=== PATIENT | female | born 1955 | race Caucasian/White ===

== ENCOUNTER 2022-09-03 17:00 | Emergency (ER) | payer MEDICARE, SELFPAY ==
[2022-09-03 17:05] VITALS: BP 159/91; PULSE 100; PULSE 102; PULSE 106; RESP 20; RESP 24; RESP 28; TEMP 37; O2SAT 99; BMI 34.2
--- NOTE | 2022-09-03 17:19 | ED.GENADUL1 ---
HPI - General Adult General Chief complaint: Headache Stated complaint: HEADACHE BACK PAIN Time Seen by Provider: 09/03/22 17:19 Source: patient Source information: patient Mode of arrival: ambulance Limitations: no limitations History of Present Illness HPI narrative: He presents emergency department complaining of a headache. Patient states she has a headache over the top of her head. Patient has this headache for over a month. She saw her primary care doctor who order a CT scan of the brain on August 14 and she had some fluid in the mastoid processes so she was started on Augmentin. Patient took the Augmentin and has been taking prednisone 10 mg. She is concerned because she still has the headache and last year she was admitted for sepsis and pneumonia so she wants to make sure that she doesn't have any sepsis. Patient had a cough but that has improved and she has a history of lung disease she wears 4 L of oxygen. She denies any shortness of breath and not had to increase the oxygen. She denies any fever, or chills. She denies any flank pain, hematuria, dysuria. She denies any nausea states she has not been drinking a lot of fluids any diarrhea, constipation, or abdominal pain. She denies any lower extremity edema, or cramping. She denies any chest pain. Denies any trauma. Related Data Home Medications Medication Instructions Recorded Confirmed albuterol sulfate 90 mcg/actuation inhalation 09/03/22 aerosol inhaler fexofenadine 180 mg tablet mg 09/03/22 levofloxacin 500 mg tablet mg 09/03/22 prednisolone 1 %-moxifloxacin 0.5 drp ophthalmic (eye) 09/03/22 %-bromfenac 0.075 % eye drops susp prednisone 10 mg tablet mg 09/03/22 prednisone 5 mg tablet mg 09/03/22 tramadol 50 mg tablet mg 09/03/22 Previous Rx's Medication Instructions Recorded levofloxacin 500 mg tablet 500 mg PO DAILY 7 days #7 tabs 09/03/22 Allergies Allergy/AdvReac Type Severity Reaction Status Date / Time No Known Drug Allergies Allergy Verified 09/03/22 17:18 Review of Systems ROS Status of ROS 10 or more systems reviewed and unremarkable except as noted in history and below PFSH PFSH Social History Smoking status: Former smoker Exam Narrative Exam Narrative: Nurses notes and vital signs reviewed and patient is not hypoxic on 4l nc General: Nontoxic, Chronically illand in no apparent distress. Skin: Warm, dry, no pallor noted. No Rash Head: Normocephalic, atraumatic. Neck: Supple, non-tender. Eye: Pupils are equal, round and EOMI. No scleral icterus. Ears, Nose, Mouth, and Throat: TM clear, no posterior oropharynx erythema or nasal mucosal hypertrophy, uvula is mid-line Oral mucosa is moist Cardiovascular: Regular Rate and Rhythm without murmur, gallop or rub. Respiratory: No accessory muscle use or respiratory distress. Lungs:Bilateral scattered rhonchi Chest Wall: no tenderness Back: No midline thoracic or lumbar vertebral tenderness. No CVA tenderness Musculoskeletal: normal ROM, no calf or popliteal tenderness, no lower extremity edema/swelling GI: Abdomen is soft, non-distended. Normal bowel sounds. No masses appreciated. No tenderness to palpation. No rebound, guarding, or rigidity noted. Neurological: A&O x4. No cranial nerve dysfunction observed. No truncal ataxia. Moves all extremities. Sensation intact. Psychiatric: Cooperative and interactive. Normal mood and affect. Constitutional Vital Signs - 24 hr 09/03/22 17:05 09/03/22 17:05 09/03/22 17:05 Temperature 98.6 F Pulse Rate 100 H 102 H Pulse Rate [Monitor] 106 H Respiratory Rate 24 20 28 H Blood Pressure 159/91 H 159/91 H Blood Pressure [Left Radial Artery] 159/91 H Pulse Oximetry 99 99 99 Oxygen Delivery Method Nasal Cannula Oxygen Delivery Flow Rate 4 09/03/22 17:43 09/03/22 18:01 Temperature Pulse Rate 97 H 112 H Pulse Rate [Monitor] Respiratory Rate 21 18 Blood Pressure 149/121 H 166/101 H Blood Pressure [Left Radial Artery] Pulse Oximetry 100 100 Oxygen Delivery Method Oxygen Delivery Flow Rate Course Vital Signs Vital signs: Vital Signs Temperature 98.6 F 09/03/22 17:05 Pulse Rate 100 H 09/03/22 17:05 Respiratory Rate 24 09/03/22 17:05 Blood Pressure 159/91 H 09/03/22 17:05 Pulse Oximetry 99 09/03/22 17:05 Oxygen Delivery Method Nasal Cannula 09/03/22 17:05 Oxygen Delivery Flow Rate 4 09/03/22 17:05 Temperature 98.6 F 09/03/22 17:05 Pulse Rate 112 H 09/03/22 18:01 Respiratory Rate 18 09/03/22 18:01 Blood Pressure 166/101 H 09/03/22 18:01 Pulse Oximetry 100 09/03/22 18:01 Oxygen Delivery Method Nasal Cannula 09/03/22 17:05 Oxygen Delivery Flow Rate 4 09/03/22 17:05 Medical Decision Making MDM Narrative Medical decision making narrative: or order an ultrasound results were discussed with patient. Patient reassured there is no signs of sepsis at this time. Patient's white count is 13.9 probably secondary to her use of prednisone. The patient is afebrile, she is not dyspneic. She was given 4 mg of morphine ?2 for the headache. Her symptoms improved. On the x-ray there is a left lung infiltrate patient was treated with Rocephin, and Zithromax. However, the radiologist's read- this is not acute compared to the previous x-ray. The patient was discussed with the hospitalist who advised the patient can be given IV antibiotics and sent home on oral antibiotics and have the patient follow up with her primary care doctor which she APPOINTMENT SET UP FOR THIS WEEK. pt is agreeable to plan. I answered all questions. Discussed discharge instructions including standard anticipatory guidance and what should prompt a return to the emergency department, including if they get worse are not getting better or develops any new or concerning symptoms. I've given them specific time frame in which to follow-up, and who to follow-up with. The patient demonstrates understanding. Patient is nontoxic and stable for discharge with outpatient follow-up. This note was created with the assistance of a speech recognition program. Although the intention is to generate documents that actually reflects the content of the visit, no guarantees can be provided that every mistake has been identified and corrected by editing. Lab Data Lab results reviewed: Yes I reviewed the patient's lab results Labs: Lab Results 09/03/22 Range/Units 17:42 WBC 13.9 H (4.0-11.0) 10^3/uL RBC 3.91 L (4.20-5.40) 10^6/uL Hgb 12.3 (12.0-16.0) g/dL Hct 38.0 (36.0-48.0) % MCV 97.2 (81.0-99.0) fL MCH 31.5 (26.7-34.0) pg MCHC 32.4 (29.9-35.2) g/dL RDW 14.4 (11.0-15.0) % Plt Count 181 (150-450) 10^3/uL MPV 9.2 L (9.5-13.5) fL Neut % (Auto) 83.3 H (43.0-75.0) % Lymph % (Auto) 7.8 L (20.5-60.0) % [place] % (Auto) 6.4 (1.7-12.0) % Eos % (Auto) 0.2 L (0.9-7.0) % Baso % (Auto) 0.4 (0.2-2.0) % Neut # (Auto) 11.6 H (1.4-6.5) 10^3/uL Lymph # (Auto) 1.1 L (1.2-3.8) 10^3/uL [place] # (Auto) 0.9 H (0.3-0.8) 10^3/uL Eos # (Auto) 0.0 (0.0-0.7) 10^3/uL Baso # (Auto) 0.1 (0.0-0.1) 10^3/uL Abs Immat Gran (auto) 0.27 H (0.00-0.03) 10^3/uL Imm/Tot Granulo (auto) 1.9 H (0.0-0.5) % Sodium 141 (136-145) mmol/L Potassium 4.1 (3.5-5.1) mmol/L Chloride 103 (98-107) mmol/L Carbon Dioxide 30.8 (21.0-32.0) mmol/L Anion Gap 11.3 BUN 17.0 (7.0-18.0) mg/dL Creatinine 0.70 (0.55-1.02) mg/dL Est GFR ( Amer) >60 (>=60) Est GFR (Non-Af Amer) >60 (>=60) BUN/Creatinine Ratio 24.3 Glucose 95 (74-106) mg/dL Lactate 2.0 (0.4-2.0) mmol/L Calcium 9.9 (8.5-10.1) mg/dL Total Bilirubin 0.3 (0.2-1.0) mg/dL AST 23 (15-37) U/L ALT 33 (14-59) U/L Alkaline Phosphatase 81 (46-116) U/L Total Protein 6.5 (6.4-8.2) g/dL Albumin 3.2 L (3.4-5.0) g/dL Globulin 3.3 g/dL Albumin/Globulin Ratio 1.0 Discharge Plan Discharge Chief Complaint: Headache Clinical Impression: Headache, Chronic obstructive pulmonary disease with (acute) exacerbation Patient Disposition: Home, Self-Care Time of Disposition Decision: 19:35 Condition: Good Mode of Transportation: Private Vehicle Prescriptions / Home Meds: New levofloxacin 500 mg tablet 500 mg PO DAILY 7 Days Qty: 7 0RF No Action albuterol sulfate 90 mcg/actuation HFA aerosol inhaler INHALATION prednisone 10 mg tablet prednisone 5 mg tablet fexofenadine 180 mg tablet tramadol 50 mg tablet levofloxacin 500 mg tablet [id number] 1-0.5-0.075 % drops,suspension OPHTHALMIC (EYE) Instructions: Acute Headache (ED) Stand Alone Forms: Portal Instructions Referrals: Dennis Og DO [Primary Care Provider] - 1 week
[2022-09-03 17:32] VITALS: BP 138/84; PULSE 94; RESP 18; O2SAT 99
--- NOTE | 2022-09-03 17:32 | ECG_ITS ---
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
--- NOTE | 2022-09-03 17:33 | XR_ITS ---
[address] [address] Patient Name: ORTEGA MARX MRN: [id number] date: 1955 Sex: F Assigned Patient Location: ER Current Patient Location: ER Accession/Order Number: [id number] Exam Date: 09/03/2022 18:00 Report Date: 09/03/2022 18:35 At the request of: RAFAEL BLANCO Procedure: XR chest 1V EXAM: XR chest 1V HISTORY: Weakness COMPARISON: Chest x-ray 11/09/[address] chest 05/10/2022 TECHNIQUE: Portable chest FINDINGS: Poor inspiratory effort. Diffuse chronic changes throughout the lung parenchyma. No pneumothorax. Heart size is unchanged. IMPRESSION: No gross focal acute abnormality when compared with the prior study. Electronically authenticated by: COLLETTE MALCOLM Date: 09/03/2022 18:35
[2022-09-03] MEDS: 0.9 % SODIUM CHLORIDE 1,000 ML 999 ML IV (17:42)
[2022-09-03 17:43] VITALS: BP 149/121; PULSE 97; RESP 21; O2SAT 100
[2022-09-03] MEDS: MORPHINE SULFATE 4 MG/ML VIAL IV ×2 (17:43→19:23)
[2022-09-03 17:52] LABS: Basophils Absolute Auto 0.1 10^3/uL (0.0-0.1); Basophils Percent Auto 0.4 % (0.2-2.0); Eosinophils Percent Auto 0.2 % (0.9-7.0); Hemoglobin 12.3 g/dL (12.0-16.0); Immature Granulocytes Abs Auto 0.27 10^3/uL (0.00-0.03); Immature Granulocytes Pct Auto 1.9 % (0.0-0.5); Lymphocytes Absolute Auto 1.1 10^3/uL (1.2-3.8); Lymphocytes Percent Auto 7.8 % (20.5-60.0); Mean Corpuscular HGB Conc 32.4 g/dL (29.9-35.2); Mean Corpuscular Hemoglobin 31.5 pg (26.7-34.0); Mean Corpuscular Volume 97.2 fL (81.0-99.0); Mean Platelet Volume 9.2 fL (9.5-13.5); Monocytes Absolute Auto 0.9 10^3/uL (0.3-0.8); Monocytes Percent Auto 6.4 % (1.7-12.0); Neutrophils Absolute Auto 11.6 10^3/uL (1.4-6.5); Neutrophils Percent Auto 83.3 % (43.0-75.0); Platelet Count 181 10^3/uL (150-450); Red Blood Count 3.91 10^6/uL (4.20-5.40); Red Cell Distribution Width 14.4 % (11.0-15.0); White Blood Count 13.9 10^3/uL (4.0-11.0)
[2022-09-03 18:01] VITALS: BP 166/101; PULSE 112; RESP 18; O2SAT 100
[2022-09-03 18:04] LABS: Alanine Aminotransferase 33 U/L (14-59); Albumin Level 3.2 g/dL (3.4-5.0); Alkaline Phosphatase 81 U/L (46-116); Anion Gap 11.3; Aspartate Amino Transferase 23 U/L (15-37); BUN Creatinine Ratio 24.3; Bilirubin Total 0.3 mg/dL (0.2-1.0); Calcium 9.9 mg/dL (8.5-10.1); Carbon Dioxide 30.8 mmol/L (21.0-32.0); Chloride 103 mmol/L (98-107); Estimated GFR (African America >60 (>=60); Estimated GFR (Non-African Ame >60 (>=60); Globulin 3.3 g/dL; Glucose 95 mg/dL (74-106); Potassium 4.1 mmol/L (3.5-5.1); Sodium 141 mmol/L (136-145); Total Protein 6.5 g/dL (6.4-8.2)
[2022-09-03] MEDS: CEFTRIAXONE 1,000 MG in 0.9 % SODIUM CHLORIDE 50 ML 100 MG IV (19:01)
[2022-09-03] MEDS: AZITHROMYCIN 500 MG in 0.9 % SODIUM CHLORIDE 250 ML 250 MG IV (19:23)
[2022-09-03 20:41] VITALS: BP 138/88; PULSE 84; RESP 28; O2SAT 99
== END 2022-09-03 20:43 | disposition home or self-care (01) ==
PROVIDERS: Emergency Provider Emergency Medicine; PCP Internal Medicine
DX: R51.9 Headache, unspecified (principal); J44.1 Chronic obstructive pulmonary disease with (acute) exacerbation; Z99.81 Dependence on supplemental oxygen; Z79.899 Other long term (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 therapy
CPT/HCPCS: 36415; 71045; 80053; 81003; 83605; 85025; 87040; 93005; 96374; 96375; 96376; 99285; J0456

== ENCOUNTER 2022-09-05 19:27 | Inpatient (IN) | payer MEDICARE, MEDICAID, SELFPAY ==
[2022-09-05 19:30] VITALS: BP 128/86; PULSE 100; PULSE 101; RESP 24; RESP 27
[2022-09-05 19:32] VITALS: BP 126/86; PULSE 106; RESP 28; TEMP 37.2; O2SAT 97; BMI 32.1
--- NOTE | 2022-09-05 19:43 | ED_ITS ---
Documented by User: Yamilet Max 09/11/22 15:34 HPI - General Adult General Chief complaint: Weakness Stated complaint: FALL Time Seen by Provider: 09/05/22 19:39 Source: patient Mode of arrival: ambulance Limitations: no limitations History of Present Illness HPI narrative: 67 year old female presents to the ED today for upper back pain, generalized weakness. States she was diagnosed with pneumonia during an ED visit here on 09/03/22. She is concerned that is the cause of her increased discomfort. She did fall today which she states has nothing to do with why she is in the ED today. States she bent down to pick something up off of the floor which caused her to slip out of her chair and land on her buttocks. Denies hitting her head and LOC. Denies fever, chills, N/V/D. Denies CP, increased SOB. She wears oxygen 4L NC; states it is due to a pneumonia infection one year ago. She has been taking Levaqiun for the past 6 months. Rates her pain 8/10 at this time. Related Data Home Medications Medication Instructions Recorded Confirmed levofloxacin 500 mg tablet 500 mg PO Q24H 09/03/22 09/06/22 prednisone 10 mg tablet See Rx Instructions PO Q12H 09/03/22 09/09/22 tramadol 50 mg tablet 50 mg PO Q8H PRN pain 09/03/22 09/09/22 amlodipine 2.5 mg tablet 2.5 mg PO DAILY 09/06/22 09/06/22 fexofenadine 180 mg tablet 180 mg PO DAILY 09/09/22 09/09/22 ([facility]) Previous Rx's Medication Instructions Recorded tramadol 50 mg tablet 50 mg PO Q8H PRN pain 5 days #14 09/06/22 tabs Allergies Allergy/AdvReac Type Severity Reaction Status Date / Time No Known Drug Allergies Allergy Verified 09/03/22 17:18 Review of Systems ROS Constitutional Reports: fatigue; Denies: fever or chills Ears, nose, mouth, and throat Denies: throat pain or neck pain Cardiovascular Reports: shortness of breath with exertion; Denies: chest pain, edema or lightheadedness Respiratory Reports: shortness of breath and cough; Denies: stridor Gastrointestinal Denies: abdominal pain, nausea, vomiting or diarrhea Genitourinary Denies: painful urination Musculoskeletal Reports: back pain; Denies: neck pain or extremity pain Integumentary/Breast Denies: rash or itching Neurological Denies: headache PFSH PFSH Medical History (Updated 09/11/22 @ 15:34 by Yamilet Max) Surgical History Social History Within the past year, how often did you have a drink containing alcohol: never Score interpretation: A score less than 3 is consistent with normal alcohol consumption. Smoking status: Former smoker Non-prescribed substance use: denies use Known occupational exposures/hazards: No Highest level of school completed/degree received: high school graduate In a typical week, how many times do you talk on the telephone with family, friends, or neighbors: 3 or more times per week How often do you get together with friends or relatives: 3 or more times per week Little interest or pleasure in doing things: not at all Feeling down, depressed, or hopeless: not at all Feel stressed/tense/nervous/anxious/difficulty sleeping: not at all Do you think of yourself as: straight/heterosexual Gender Identity: female Exam Constitutional Vital Signs - 24 hr 09/05/22 19:32 09/05/22 19:30 09/05/22 19:30 Temperature 99 F Pulse Rate 101 H 100 H Pulse Rate [Monitor] 106 H Respiratory Rate 28 H 24 27 H Blood Pressure 128/86 H 128/86 H Blood Pressure [Left Arm] 126/86 H Pulse Oximetry 97 09/06/22 00:38 09/06/22 05:06 09/06/22 00:38 Temperature Pulse Rate 101 H 97 H Pulse Rate [Monitor] Respiratory Rate 22 20 Blood Pressure 156/90 H 156/90 H Blood Pressure [Left Arm] 138/70 H Pulse Oximetry 97 09/06/22 04:59 Temperature Pulse Rate 95 H Pulse Rate [Monitor] Respiratory Rate 17 Blood Pressure 186/92 H Blood Pressure [Left Arm] Pulse Oximetry Common normals: no apparent distress and oriented x3 General appearance: cooperative; not in distress and not ill appearing Orientation/consciousness: Yes awake HENMT Common normals: normocephalic Face and sinus: face symmetric Eye Common normals: conjunctivae normal and no scleral icterus Neck & C-Spine Common normals: supple Cervical spine: no cervical spine tenderness and no paracervical muscle tenderness Chest Chest: symmetrical chest wall rise Respiratory Effort & inspection: symmetric chest movement and tachypneic; no respiratory distress and no stridor Auscultation: diminished lung sounds Cardio Common normals: regular rate Back & Pelvis Common normals: no CVA tenderness Thoracic spine/upper back: normal to inspection and paraspinal muscle tenderness; no thoracic spinal tenderness Lumbar spine/lower back: normal to inspection; no lumbar spinal tenderness and no paraspinal muscle tenderness Sacrum: no ecchymosis, no erythema and no tenderness Coccyx: no swelling and no tenderness Extremity Common normals: normal capillary refill Neuro Common normals: oriented x3 Sensorium/orientation: awake and alert Speech: speech normal Course Vital Signs Vital signs: Vital Signs Pulse Rate 101 H 09/05/22 19:30 Respiratory Rate 24 09/05/22 19:30 Blood Pressure 128/86 H 09/05/22 19:30 Temperature 98.9 F 09/10/22 13:13 Pulse Rate 91 H 09/10/22 13:13 Respiratory Rate 18 09/10/22 13:13 Blood Pressure 158/79 H 09/10/22 13:13 Pulse Oximetry 97 09/10/22 13:13 Oxygen Delivery Method Nasal Cannula 09/10/22 13:13 Oxygen Delivery Flow Rate 3 09/10/22 13:13 Medical Decision Making MDM Narrative Medical decision making narrative: Laboratory studies were pending. Care was resumed to Dr. Lee. See her dictation for further evaluation and treatment. Medical Records Medical records reviewed: Yes I reviewed the patient's medical records Lab Data Labs: Lab Results 09/05/22 09/05/22 09/07/22 Range/Units 20:58 21:45 05:18 WBC 10.9 8.4 (4.0-11.0) 10^3/uL RBC 3.74 L 3.76 L (4.20-5.40) 10^6/uL Hgb 11.8 L 11.5 L (12.0-16.0) g/dL Hct 36.3 36.2 (36.0-48.0) % MCV 97.1 96.3 (81.0-99.0) fL MCH 31.6 30.6 (26.7-34.0) pg MCHC 32.5 31.8 (29.9-35.2) g/dL RDW 14.6 14.7 (11.0-15.0) % Plt Count 200 183 (150-450) 10^3/uL MPV 10.7 9.5 (9.5-13.5) fL Neut % (Auto) 77.1 H 82.1 H (43.0-75.0) % Lymph % (Auto) 12.2 L 10.3 L (20.5-60.0) % [place] % (Auto) 6.9 5.4 (1.7-12.0) % Eos % (Auto) 0.8 L 0.2 L (0.9-7.0) % Baso % (Auto) 0.6 0.4 (0.2-2.0) % Neut # (Auto) 8.4 H 6.9 H (1.4-6.5) 10^3/uL Lymph # (Auto) 1.3 0.9 L (1.2-3.8) 10^3/uL [place] # (Auto) 0.8 0.5 (0.3-0.8) 10^3/uL Eos # (Auto) 0.1 0.0 (0.0-0.7) 10^3/uL Baso # (Auto) 0.1 0.0 (0.0-0.1) 10^3/uL Abs Immat Gran (auto) 0.26 H 0.13 H (0.00-0.03) 10^3/uL Imm/Tot Granulo (auto) 2.4 H 1.6 H (0.0-0.5) % ESR (<=30) mm/hr Sodium 142 140 (136-145) mmol/L Potassium 4.1 3.6 (3.5-5.1) mmol/L Chloride 105 102 (98-107) mmol/L Carbon Dioxide 31.0 32.5 H (21.0-32.0) mmol/L Anion Gap 10.1 9.1 BUN 12.0 8.0 (7.0-18.0) mg/dL Creatinine 0.48 L 0.45 L (0.55-1.02) mg/dL Est GFR ( Amer) >60 >60 (>=60) Est GFR (Non-Af Amer) >60 >60 (>=60) BUN/Creatinine Ratio 25.0 17.8 Glucose 82 113 H (74-106) mg/dL Estimat Average Glucose 82 mg/dL Hemoglobin A1c 4.5 (4.5-6.2) % Calcium 9.5 9.3 (8.5-10.1) mg/dL Total Bilirubin 0.6 0.4 (0.2-1.0) mg/dL AST 36 22 (15-37) U/L ALT 29 27 (14-59) U/L Alkaline Phosphatase 78 76 (46-116) U/L Troponin I High Sens 10.8 (4.0-51.3) pg/mL C-Reactive Protein (<=1.0) mg/dL NT-Pro-B Natriuret Pep 315.0 (<=900.0) pg/mL Total Protein 6.5 5.8 L (6.4-8.2) g/dL Albumin 3.2 L 2.8 L (3.4-5.0) g/dL Globulin 3.3 3.0 g/dL Albumin/Globulin Ratio 1.0 0.9 Triglycerides 196 H (<=150) mg/dL Cholesterol 229 H (<=200) mg/dL LDL Cholesterol, Calc 139.0 mg/dL VLDL Cholesterol 39.2 mg/dL HDL Cholesterol 51 (40-60) mg/dL Cholesterol/HDL Ratio 4.5 Urine Color Lt. yellow (YELLOW) Urine Clarity Sl cloudy (CLEAR) Urine pH 6.5 (5.0-9.0) Ur Specific [place] >=1.030 A (1.005-1.025) Urine Protein Negative (NEG/TRACE) mg/dL Urine Glucose (UA) Negative (NEGATIVE) mg/dL Urine Ketones Trace A (NEGATIVE) mg/dL Urine Occult Blood Negative (NEGATIVE) Urine Nitrite Negative (NEGATIVE) Urine Bilirubin Negative (NEGATIVE) Urine Urobilinogen 0.2 (0.2-1.0) EU/dL Ur Leukocyte Esterase Small A (NEGATIVE) 09/08/22 Range/Units 04:20 WBC 7.9 (4.0-11.0) 10^3/uL RBC 3.82 L (4.20-5.40) 10^6/uL Hgb 11.8 L (12.0-16.0) g/dL Hct 36.9 (36.0-48.0) % MCV 96.6 (81.0-99.0) fL MCH 30.9 (26.7-34.0) pg MCHC 32.0 (29.9-35.2) g/dL RDW 14.6 (11.0-15.0) % Plt Count 196 (150-450) 10^3/uL MPV 9.4 L (9.5-13.5) fL Neut % (Auto) 87.3 H (43.0-75.0) % Lymph % (Auto) 6.8 L (20.5-60.0) % [place] % (Auto) 3.9 (1.7-12.0) % Eos % (Auto) 0.3 L (0.9-7.0) % Baso % (Auto) 0.3 (0.2-2.0) % Neut # (Auto) 6.9 H (1.4-6.5) 10^3/uL Lymph # (Auto) 0.5 L (1.2-3.8) 10^3/uL [place] # (Auto) 0.3 (0.3-0.8) 10^3/uL Eos # (Auto) 0.0 (0.0-0.7) 10^3/uL Baso # (Auto) 0.0 (0.0-0.1) 10^3/uL Abs Immat Gran (auto) 0.11 H (0.00-0.03) 10^3/uL Imm/Tot Granulo (auto) 1.4 H (0.0-0.5) % ESR 68 H (<=30) mm/hr Sodium 141 (136-145) mmol/L Potassium 3.7 (3.5-5.1) mmol/L Chloride 104 (98-107) mmol/L Carbon Dioxide 30.7 (21.0-32.0) mmol/L Anion Gap 10.0 BUN 8.0 (7.0-18.0) mg/dL Creatinine 0.55 (0.55-1.02) mg/dL Est GFR ( Amer) >60 (>=60) Est GFR (Non-Af Amer) >60 (>=60) BUN/Creatinine Ratio 14.5 Glucose 137 H (74-106) mg/dL Estimat Average Glucose mg/dL Hemoglobin A1c (4.5-6.2) % Calcium 9.4 (8.5-10.1) mg/dL Total Bilirubin 0.4 (0.2-1.0) mg/dL AST 23 (15-37) U/L ALT 27 (14-59) U/L Alkaline Phosphatase 74 (46-116) U/L Troponin I High Sens (4.0-51.3) pg/mL C-Reactive Protein 5.3 H (<=1.0) mg/dL NT-Pro-B Natriuret Pep (<=900.0) pg/mL Total Protein 6.2 L (6.4-8.2) g/dL Albumin 2.9 L (3.4-5.0) g/dL Globulin 3.3 g/dL Albumin/Globulin Ratio 0.9 Triglycerides (<=150) mg/dL Cholesterol (<=200) mg/dL LDL Cholesterol, Calc mg/dL VLDL Cholesterol mg/dL HDL Cholesterol (40-60) mg/dL Cholesterol/HDL Ratio Urine Color (YELLOW) Urine Clarity (CLEAR) Urine pH (5.0-9.0) Ur Specific [place] (1.005-1.025) Urine Protein (NEG/TRACE) mg/dL Urine Glucose (UA) (NEGATIVE) mg/dL Urine Ketones (NEGATIVE) mg/dL Urine Occult Blood (NEGATIVE) Urine Nitrite (NEGATIVE) Urine Bilirubin (NEGATIVE) Urine Urobilinogen (0.2-1.0) EU/dL Ur Leukocyte Esterase (NEGATIVE) Imaging Data Chest x-ray: Radiologist's impression: Procedure:? XR chest 1V ? EXAM: XR chest 1V ? HISTORY: cough, SOB, back pain ? COMPARISON: 09/03/2022 portable chest ? TECHNIQUE: Portal chest ? FINDINGS: IMPRESSION: ? Poor inspiratory effort. In allowing for difference in technique there is no gross acute abnormality when compared with the prior study. Persistent indistinctness of the left hemidiaphragm that is most likely weight and inspiratory related. No pneumothorax. The heart does not appear discretely enlarged. ? Full inspiratory PA and lateral chest radiographs are strongly recommended ? ? Electronically authenticated by: MILEY MALCOLM ? Date: 09/05/2022? 21:22 ECG Data Attestation: ?I have reviewed the pertinent ECG results. (EKG was reviewed by the attending physician. It showed sinus tachycardia at a rate of 100. WA intervall 126 ms, QTc 391 ms, QRS duration [address] segment changes. ) Prior ECG tracings: not available for review Interpretation: ? ? Measurements Intervals? [place]? Rate: ? 100? P:? 27 WA: ? 126? QRS:? 19 QRSD: ? 74 ? T:? 26 QT: ? 334? QTc:? 391? Interpretive Statements 1120 Sinus tachycardia 2420 RSR (QR) in lead V1/V2, consistent with right ventricular conduction delay 8102 Low QRS voltage in chest leads 9140 ? abnormal rhythm ECG? No previous ECG available for comparison Discharge Plan Discharge Chief Complaint: Weakness Clinical Impression: Weakness generalized, Pneumonitis, Contusion of hip, left Patient Disposition: Admitted as Observation Time of Disposition Decision: 00:40 Condition: Good Discharge Date/Time: 09/06/22 09:05 Sign Out Sign Out Data: Patient Sign Out occurred on 09/05/22 at 22:00. Patient's care was discussed, and care was transferred from Julissa Lee MD and Yamilet Max to Julissa Lee MD. Sign Out Comment: Testing was pending. Care was resumed to Dr. Lee. See her dictation for further evaluation and treatment. Last updated by Yamilet Max at 09/05/22 22:00 Progress Note: A&P Assessment and Plan (1) Weakness generalized: (2) Back pain: Documented by User: Julissa Lee MD 09/06/22 07:24 HPI - General Adult General Chief complaint: Weakness Stated complaint: FALL Time Seen by Provider: 09/05/22 19:39 Related Data Home Medications Medication Instructions Recorded Confirmed levofloxacin 500 mg tablet 500 mg PO Q24H 09/03/22 09/06/22 prednisone 10 mg tablet See Rx Instructions PO Q12H 09/03/22 09/09/22 tramadol 50 mg tablet 50 mg PO Q8H PRN pain 09/03/22 09/09/22 amlodipine 2.5 mg tablet 2.5 mg PO DAILY 09/06/22 09/06/22 fexofenadine 180 mg tablet 180 mg PO DAILY 09/09/22 09/09/22 ([facility]) Previous Rx's Medication Instructions Recorded tramadol 50 mg tablet 50 mg PO Q8H PRN pain 5 days #14 09/06/22 tabs Allergies Allergy/AdvReac Type Severity Reaction Status Date / Time No Known Drug Allergies Allergy Verified 09/03/22 17:18 [facility] Medical History (Updated 09/11/22 @ 15:34 by Yamilet Max) Surgical History Social History Within the past year, how often did you have a drink containing alcohol: never Score interpretation: A score less than 3 is consistent with normal alcohol consumption. Smoking status: Former smoker Non-prescribed substance use: denies use Known occupational exposures/hazards: No Highest level of school completed/degree received: high school graduate In a typical week, how many times do you talk on the telephone with family, friends, or neighbors: 3 or more times per week How often do you get together with friends or relatives: 3 or more times per week Little interest or pleasure in doing things: not at all Feeling down, depressed, or hopeless: not at all Feel stressed/tense/nervous/anxious/difficulty sleeping: not at all Do you think of yourself as: straight/heterosexual Gender Identity: female Exam Constitutional Vital Signs - 24 hr 09/05/22 19:32 09/05/22 19:30 09/05/22 19:30 Temperature 99 F Pulse Rate 101 H 100 H Pulse Rate [Monitor] 106 H Respiratory Rate 28 H 24 27 H Blood Pressure 128/86 H 128/86 H Blood Pressure [Left Arm] 126/86 H Pulse Oximetry 97 09/06/22 00:38 09/06/22 05:06 09/06/22 00:38 Temperature Pulse Rate 101 H 97 H Pulse Rate [Monitor] Respiratory Rate 22 20 Blood Pressure 156/90 H 156/90 H Blood Pressure [Left Arm] 138/70 H Pulse Oximetry 97 09/06/22 04:59 Temperature Pulse Rate 95 H Pulse Rate [Monitor] Respiratory Rate 17 Blood Pressure 186/92 H Blood Pressure [Left Arm] Pulse Oximetry Course Vital Signs Vital signs: Vital Signs Pulse Rate 101 H 09/05/22 19:30 Respiratory Rate 24 09/05/22 19:30 Blood Pressure 128/86 H 09/05/22 19:30 Temperature 98.9 F 09/10/22 13:13 Pulse Rate 91 H 09/10/22 13:13 Respiratory Rate 18 09/10/22 13:13 Blood Pressure 158/79 H 09/10/22 13:13 Pulse Oximetry 97 09/10/22 13:13 Oxygen Delivery Method Nasal Cannula 09/10/22 13:13 Oxygen Delivery Flow Rate 3 09/10/22 13:13 Medical Decision Making MDM Narrative Medical decision making narrative: Laboratory studies were pending. Care was resumed to Dr. Lee. See her dictation for further evaluation and treatment. All results were discussed with patient. CTA was done which excluded pulmonary embolism, or pneumonia. Patient is concerned that she could have sepsis. I reassured the patient that there is no signs of sepsis and she is actually doing better today than she was 2 days ago. Patient however states that she feels very weak and she does not want to go home. She stated there is nobody that can take her home. I advised the patient that we could send her back on ambulance as she is on 4 L nasal cannula of oxygen and she stated she could not even walk so she couldn't go home. The patient is able to move her legs. I asked the patient to raise the legs off the bed and she will to the left leg very easily and the right one she was not putting any effort into it advised the patient and it hurt to put more effort into it and she stated that it just makes her back hurts when she lifts it. I examined the patient's back she has a contusion and ecchymosis to the left hip but nothing to the back. She is tender over to 8. I went back and looked at the CT scan and there is no rib fracture and there is no C-spine fracture. This was discussed with the patient. She continues to state that she cannot go home because she is feeling very weak and she should stay overnight because she does not have a ride. I asked the patient that I would discuss her case with the hospitalist to see if we could keep her in to have social worker school see her and she said fine the patient was discussed with Dr. rawls who advised this is completely a social admit that she's had a thorough workup and there is no medical reason to admit the patient. He advised to keep the patient in the emergency department and get social worker school to evaluate her in the morning. I discussed this with the patient. I advised the patient that we could have social worker school evaluate her to place her in a jail and she can't walk and take care of herself. To which she replied Serafin no . Patient agreed to go back home we were setting up an ambulance and the patient started crying and said that she did not have the keys to her house her friend has the keys to her house so she doesn't know how she is going to get in the house. The patient arranged with house and supervised to have her friend either bring the keys to the emergency department at 7 in the morning or be available at 9 in the morning at her house when the ambulance was arranged to pick her up in the morning. The patient was given an Ultram for pain. She is given a prescription for Ultram. And she'll be signed out at the end of my shift to Dr. Hess awaiting transport to 9 in the morning to home. Patient is currently on prednisone 10 mg at home daily, Levaquin, and Omnicef. The patient has remained hemodynamically stable. No additional indication for emergent studies at this time. I answered all questions. Discussed discharge instructions including standard anticipatory guidance and what should prompt a return to the emergency department, including if they get worse are not getting better or develops any new or concerning symptoms. I've given them specific time frame in which to follow-up, and who to follow-up with. The patient demonstrates understanding. Patient is nontoxic and stable for discharge with outpatient follow-up. This note was created with the assistance of a speech recognition program. Although the intention is to generate documents that actually reflects the content of the visit, no guarantees can be provided that every mistake has been identified and corrected by editing. Lab Data Lab results reviewed: Yes I reviewed the patient's lab results Labs: Lab Results 09/05/22 09/05/22 09/07/22 Range/Units 20:58 21:45 05:18 WBC 10.9 8.4 (4.0-11.0) 10^3/uL RBC 3.74 L 3.76 L (4.20-5.40) 10^6/uL Hgb 11.8 L 11.5 L (12.0-16.0) g/dL Hct 36.3 36.2 (36.0-48.0) % MCV 97.1 96.3 (81.0-99.0) fL MCH 31.6 30.6 (26.7-34.0) pg MCHC 32.5 31.8 (29.9-35.2) g/dL RDW 14.6 14.7 (11.0-15.0) % Plt Count 200 183 (150-450) 10^3/uL MPV 10.7 9.5 (9.5-13.5) fL Neut % (Auto) 77.1 H 82.1 H (43.0-75.0) % Lymph % (Auto) 12.2 L 10.3 L (20.5-60.0) % [place] % (Auto) 6.9 5.4 (1.7-12.0) % Eos % (Auto) 0.8 L 0.2 L (0.9-7.0) % Baso % (Auto) 0.6 0.4 (0.2-2.0) % Neut # (Auto) 8.4 H 6.9 H (1.4-6.5) 10^3/uL Lymph # (Auto) 1.3 0.9 L (1.2-3.8) 10^3/uL [place] # (Auto) 0.8 0.5 (0.3-0.8) 10^3/uL Eos # (Auto) 0.1 0.0 (0.0-0.7) 10^3/uL Baso # (Auto) 0.1 0.0 (0.0-0.1) 10^3/uL Abs Immat Gran (auto) 0.26 H 0.13 H (0.00-0.03) 10^3/uL Imm/Tot Granulo (auto) 2.4 H 1.6 H (0.0-0.5) % ESR (<=30) mm/hr Sodium 142 140 (136-145) mmol/L Potassium 4.1 3.6 (3.5-5.1) mmol/L Chloride 105 102 (98-107) mmol/L Carbon Dioxide 31.0 32.5 H (21.0-32.0) mmol/L Anion Gap 10.1 9.1 BUN 12.0 8.0 (7.0-18.0) mg/dL Creatinine 0.48 L 0.45 L (0.55-1.02) mg/dL Est GFR ( Amer) >60 >60 (>=60) Est GFR (Non-Af Amer) >60 >60 (>=60) BUN/Creatinine Ratio 25.0 17.8 Glucose 82 113 H (74-106) mg/dL Estimat Average Glucose 82 mg/dL Hemoglobin A1c 4.5 (4.5-6.2) % Calcium 9.5 9.3 (8.5-10.1) mg/dL Total Bilirubin 0.6 0.4 (0.2-1.0) mg/dL AST 36 22 (15-37) U/L ALT 29 27 (14-59) U/L Alkaline Phosphatase 78 76 (46-116) U/L Troponin I High Sens 10.8 (4.0-51.3) pg/mL C-Reactive Protein (<=1.0) mg/dL NT-Pro-B Natriuret Pep 315.0 (<=900.0) pg/mL Total Protein 6.5 5.8 L (6.4-8.2) g/dL Albumin 3.2 L 2.8 L (3.4-5.0) g/dL Globulin 3.3 3.0 g/dL Albumin/Globulin Ratio 1.0 0.9 Triglycerides 196 H (<=150) mg/dL Cholesterol 229 H (<=200) mg/dL LDL Cholesterol, Calc 139.0 mg/dL VLDL Cholesterol 39.2 mg/dL HDL Cholesterol 51 (40-60) mg/dL Cholesterol/HDL Ratio 4.5 Urine Color Lt. yellow (YELLOW) Urine Clarity Sl cloudy (CLEAR) Urine pH 6.5 (5.0-9.0) Ur Specific [place] >=1.030 A (1.005-1.025) Urine Protein Negative (NEG/TRACE) mg/dL Urine Glucose (UA) Negative (NEGATIVE) mg/dL Urine Ketones Trace A (NEGATIVE) mg/dL Urine Occult Blood Negative (NEGATIVE) Urine Nitrite Negative (NEGATIVE) Urine Bilirubin Negative (NEGATIVE) Urine Urobilinogen 0.2 (0.2-1.0) EU/dL Ur Leukocyte Esterase Small A (NEGATIVE) 09/08/22 Range/Units 04:20 WBC 7.9 (4.0-11.0) 10^3/uL RBC 3.82 L (4.20-5.40) 10^6/uL Hgb 11.8 L (12.0-16.0) g/dL Hct 36.9 (36.0-48.0) % MCV 96.6 (81.0-99.0) fL MCH 30.9 (26.7-34.0) pg MCHC 32.0 (29.9-35.2) g/dL RDW 14.6 (11.0-15.0) % Plt Count 196 (150-450) 10^3/uL MPV 9.4 L (9.5-13.5) fL Neut % (Auto) 87.3 H (43.0-75.0) % Lymph % (Auto) 6.8 L (20.5-60.0) % [place] % (Auto) 3.9 (1.7-12.0) % Eos % (Auto) 0.3 L (0.9-7.0) % Baso % (Auto) 0.3 (0.2-2.0) % Neut # (Auto) 6.9 H (1.4-6.5) 10^3/uL Lymph # (Auto) 0.5 L (1.2-3.8) 10^3/uL [place] # (Auto) 0.3 (0.3-0.8) 10^3/uL Eos # (Auto) 0.0 (0.0-0.7) 10^3/uL Baso # (Auto) 0.0 (0.0-0.1) 10^3/uL Abs Immat Gran (auto) 0.11 H (0.00-0.03) 10^3/uL Imm/Tot Granulo (auto) 1.4 H (0.0-0.5) % ESR 68 H (<=30) mm/hr Sodium 141 (136-145) mmol/L Potassium 3.7 (3.5-5.1) mmol/L Chloride 104 (98-107) mmol/L Carbon Dioxide 30.7 (21.0-32.0) mmol/L Anion Gap 10.0 BUN 8.0 (7.0-18.0) mg/dL Creatinine 0.55 (0.55-1.02) mg/dL Est GFR ( Amer) >60 (>=60) Est GFR (Non-Af Amer) >60 (>=60) BUN/Creatinine Ratio 14.5 Glucose 137 H (74-106) mg/dL Estimat Average Glucose mg/dL Hemoglobin A1c (4.5-6.2) % Calcium 9.4 (8.5-10.1) mg/dL Total Bilirubin 0.4 (0.2-1.0) mg/dL AST 23 (15-37) U/L ALT 27 (14-59) U/L Alkaline Phosphatase 74 (46-116) U/L Troponin I High Sens (4.0-51.3) pg/mL C-Reactive Protein 5.3 H (<=1.0) mg/dL NT-Pro-B Natriuret Pep (<=900.0) pg/mL Total Protein 6.2 L (6.4-8.2) g/dL Albumin 2.9 L (3.4-5.0) g/dL Globulin 3.3 g/dL Albumin/Globulin Ratio 0.9 Triglycerides (<=150) mg/dL Cholesterol (<=200) mg/dL LDL Cholesterol, Calc mg/dL VLDL Cholesterol mg/dL HDL Cholesterol (40-60) mg/dL Cholesterol/HDL Ratio Urine Color (YELLOW) Urine Clarity (CLEAR) Urine pH (5.0-9.0) Ur Specific [place] (1.005-1.025) Urine Protein (NEG/TRACE) mg/dL Urine Glucose (UA) (NEGATIVE) mg/dL Urine Ketones (NEGATIVE) mg/dL Urine Occult Blood (NEGATIVE) Urine Nitrite (NEGATIVE) Urine Bilirubin (NEGATIVE) Urine Urobilinogen (0.2-1.0) EU/dL Ur Leukocyte Esterase (NEGATIVE) Discharge Plan Discharge Chief Complaint: Weakness Clinical Impression: Weakness generalized, Pneumonitis, Contusion of hip, left Patient Disposition: Admitted as Observation Time of Disposition Decision: 00:40 Condition: Good Discharge Date/Time: 09/06/22 09:05 Sign Out Sign Out Data: Patient Sign Out occurred on 09/05/22 at 22:00. Patient's care was discussed, and care was transferred from Julissa Lee MD and Yamilet Max to Julissa Lee MD. Sign Out Comment: Testing was pending. Care was resumed to Dr. Lee. See her dictation for further evaluation and treatment. Last updated by Yamilet Max at 09/05/22 22:00 Progress Note: A&P Assessment and Plan (1) Weakness generalized: (2) Back pain: Documented by User: Rocky Gibbons MD 09/06/22 08:38 HPI - General Adult General Chief complaint: Weakness Stated complaint: FALL Time Seen by Provider: 09/05/22 19:39 Related Data Home Medications Medication Instructions Recorded Confirmed levofloxacin 500 mg tablet 500 mg PO Q24H 09/03/22 09/06/22 prednisone 10 mg tablet See Rx Instructions PO Q12H 09/03/22 09/09/22 tramadol 50 mg tablet 50 mg PO Q8H PRN pain 09/03/22 09/09/22 amlodipine 2.5 mg tablet 2.5 mg PO DAILY 09/06/22 09/06/22 fexofenadine 180 mg tablet 180 mg PO DAILY 09/09/22 09/09/22 ([facility]) Previous Rx's Medication Instructions Recorded tramadol 50 mg tablet 50 mg PO Q8H PRN pain 5 days #14 09/06/22 tabs Allergies Allergy/AdvReac Type Severity Reaction Status Date / Time No Known Drug Allergies Allergy Verified 09/03/22 17:18 [facility] Medical History (Updated 09/11/22 @ 15:34 by Yamilet Max) Surgical History Social History Within the past year, how often did you have a drink containing alcohol: never Score interpretation: A score less than 3 is consistent with normal alcohol consumption. Smoking status: Former smoker Non-prescribed substance use: denies use Known occupational exposures/hazards: No Highest level of school completed/degree received: high school graduate In a typical week, how many times do you talk on the telephone with family, friends, or neighbors: 3 or more times per week How often do you get together with friends or relatives: 3 or more times per week Little interest or pleasure in doing things: not at all Feeling down, depressed, or hopeless: not at all Feel stressed/tense/nervous/anxious/difficulty sleeping: not at all Do you think of yourself as: straight/heterosexual Gender Identity: female Exam Constitutional Vital Signs - 24 hr 09/05/22 19:32 09/05/22 19:30 09/05/22 19:30 Temperature 99 F Pulse Rate 101 H 100 H Pulse Rate [Monitor] 106 H Respiratory Rate 28 H 24 27 H Blood Pressure 128/86 H 128/86 H Blood Pressure [Left Arm] 126/86 H Pulse Oximetry 97 09/06/22 00:38 09/06/22 05:06 09/06/22 00:38 Temperature Pulse Rate 101 H 97 H Pulse Rate [Monitor] Respiratory Rate 22 20 Blood Pressure 156/90 H 156/90 H Blood Pressure [Left Arm] 138/70 H Pulse Oximetry 97 09/06/22 04:59 Temperature Pulse Rate 95 H Pulse Rate [Monitor] Respiratory Rate 17 Blood Pressure 186/92 H Blood Pressure [Left Arm] Pulse Oximetry Course Vital Signs Vital signs: Vital Signs Pulse Rate 101 H 09/05/22 19:30 Respiratory Rate 24 09/05/22 19:30 Blood Pressure 128/86 H 09/05/22 19:30 Temperature 98.9 F 09/10/22 13:13 Pulse Rate 91 H 09/10/22 13:13 Respiratory Rate 18 09/10/22 13:13 Blood Pressure 158/79 H 09/10/22 13:13 Pulse Oximetry 97 09/10/22 13:13 Oxygen Delivery Method Nasal Cannula 09/10/22 13:13 Oxygen Delivery Flow Rate 3 09/10/22 13:13 Medical Decision Making Lab Data Labs: Lab Results 09/05/22 09/05/22 09/07/22 Range/Units 20:58 21:45 05:18 WBC 10.9 8.4 (4.0-11.0) 10^3/uL RBC 3.74 L 3.76 L (4.20-5.40) 10^6/uL Hgb 11.8 L 11.5 L (12.0-16.0) g/dL Hct 36.3 36.2 (36.0-48.0) % MCV 97.1 96.3 (81.0-99.0) fL MCH 31.6 30.6 (26.7-34.0) pg MCHC 32.5 31.8 (29.9-35.2) g/dL RDW 14.6 14.7 (11.0-15.0) % Plt Count 200 183 (150-450) 10^3/uL MPV 10.7 9.5 (9.5-13.5) fL Neut % (Auto) 77.1 H 82.1 H (43.0-75.0) % Lymph % (Auto) 12.2 L 10.3 L (20.5-60.0) % [place] % (Auto) 6.9 5.4 (1.7-12.0) % Eos % (Auto) 0.8 L 0.2 L (0.9-7.0) % Baso % (Auto) 0.6 0.4 (0.2-2.0) % Neut # (Auto) 8.4 H 6.9 H (1.4-6.5) 10^3/uL Lymph # (Auto) 1.3 0.9 L (1.2-3.8) 10^3/uL [place] # (Auto) 0.8 0.5 (0.3-0.8) 10^3/uL Eos # (Auto) 0.1 0.0 (0.0-0.7) 10^3/uL Baso # (Auto) 0.1 0.0 (0.0-0.1) 10^3/uL Abs Immat Gran (auto) 0.26 H 0.13 H (0.00-0.03) 10^3/uL Imm/Tot Granulo (auto) 2.4 H 1.6 H (0.0-0.5) % ESR (<=30) mm/hr Sodium 142 140 (136-145) mmol/L Potassium 4.1 3.6 (3.5-5.1) mmol/L Chloride 105 102 (98-107) mmol/L Carbon Dioxide 31.0 32.5 H (21.0-32.0) mmol/L Anion Gap 10.1 9.1 BUN 12.0 8.0 (7.0-18.0) mg/dL Creatinine 0.48 L 0.45 L (0.55-1.02) mg/dL Est GFR ( Amer) >60 >60 (>=60) Est GFR (Non-Af Amer) >60 >60 (>=60) BUN/Creatinine Ratio 25.0 17.8 Glucose 82 113 H (74-106) mg/dL Estimat Average Glucose 82 mg/dL Hemoglobin A1c 4.5 (4.5-6.2) % Calcium 9.5 9.3 (8.5-10.1) mg/dL Total Bilirubin 0.6 0.4 (0.2-1.0) mg/dL AST 36 22 (15-37) U/L ALT 29 27 (14-59) U/L Alkaline Phosphatase 78 76 (46-116) U/L Troponin I High Sens 10.8 (4.0-51.3) pg/mL C-Reactive Protein (<=1.0) mg/dL NT-Pro-B Natriuret Pep 315.0 (<=900.0) pg/mL Total Protein 6.5 5.8 L (6.4-8.2) g/dL Albumin 3.2 L 2.8 L (3.4-5.0) g/dL Globulin 3.3 3.0 g/dL Albumin/Globulin Ratio 1.0 0.9 Triglycerides 196 H (<=150) mg/dL Cholesterol 229 H (<=200) mg/dL LDL Cholesterol, Calc 139.0 mg/dL VLDL Cholesterol 39.2 mg/dL HDL Cholesterol 51 (40-60) mg/dL Cholesterol/HDL Ratio 4.5 Urine Color Lt. yellow (YELLOW) Urine Clarity Sl cloudy (CLEAR) Urine pH 6.5 (5.0-9.0) Ur Specific [place] >=1.030 A (1.005-1.025) Urine Protein Negative (NEG/TRACE) mg/dL Urine Glucose (UA) Negative (NEGATIVE) mg/dL Urine Ketones Trace A (NEGATIVE) mg/dL Urine Occult Blood Negative (NEGATIVE) Urine Nitrite Negative (NEGATIVE) Urine Bilirubin Negative (NEGATIVE) Urine Urobilinogen 0.2 (0.2-1.0) EU/dL Ur Leukocyte Esterase Small A (NEGATIVE) 09/08/22 Range/Units 04:20 WBC 7.9 (4.0-11.0) 10^3/uL RBC 3.82 L (4.20-5.40) 10^6/uL Hgb 11.8 L (12.0-16.0) g/dL Hct 36.9 (36.0-48.0) % MCV 96.6 (81.0-99.0) fL MCH 30.9 (26.7-34.0) pg MCHC 32.0 (29.9-35.2) g/dL RDW 14.6 (11.0-15.0) % Plt Count 196 (150-450) 10^3/uL MPV 9.4 L (9.5-13.5) fL Neut % (Auto) 87.3 H (43.0-75.0) % Lymph % (Auto) 6.8 L (20.5-60.0) % [place] % (Auto) 3.9 (1.7-12.0) % Eos % (Auto) 0.3 L (0.9-7.0) % Baso % (Auto) 0.3 (0.2-2.0) % Neut # (Auto) 6.9 H (1.4-6.5) 10^3/uL Lymph # (Auto) 0.5 L (1.2-3.8) 10^3/uL [place] # (Auto) 0.3 (0.3-0.8) 10^3/uL Eos # (Auto) 0.0 (0.0-0.7) 10^3/uL Baso # (Auto) 0.0 (0.0-0.1) 10^3/uL Abs Immat Gran (auto) 0.11 H (0.00-0.03) 10^3/uL Imm/Tot Granulo (auto) 1.4 H (0.0-0.5) % ESR 68 H (<=30) mm/hr Sodium 141 (136-145) mmol/L Potassium 3.7 (3.5-5.1) mmol/L Chloride 104 (98-107) mmol/L Carbon Dioxide 30.7 (21.0-32.0) mmol/L Anion Gap 10.0 BUN 8.0 (7.0-18.0) mg/dL Creatinine 0.55 (0.55-1.02) mg/dL Est GFR ( Amer) >60 (>=60) Est GFR (Non-Af Amer) >60 (>=60) BUN/Creatinine Ratio 14.5 Glucose 137 H (74-106) mg/dL Estimat Average Glucose mg/dL Hemoglobin A1c (4.5-6.2) % Calcium 9.4 (8.5-10.1) mg/dL Total Bilirubin 0.4 (0.2-1.0) mg/dL AST 23 (15-37) U/L ALT 27 (14-59) U/L Alkaline Phosphatase 74 (46-116) U/L Troponin I High Sens (4.0-51.3) pg/mL C-Reactive Protein 5.3 H (<=1.0) mg/dL NT-Pro-B Natriuret Pep (<=900.0) pg/mL Total Protein 6.2 L (6.4-8.2) g/dL Albumin 2.9 L (3.4-5.0) g/dL Globulin 3.3 g/dL Albumin/Globulin Ratio 0.9 Triglycerides (<=150) mg/dL Cholesterol (<=200) mg/dL LDL Cholesterol, Calc mg/dL VLDL Cholesterol mg/dL HDL Cholesterol (40-60) mg/dL Cholesterol/HDL Ratio Urine Color (YELLOW) Urine Clarity (CLEAR) Urine pH (5.0-9.0) Ur Specific [place] (1.005-1.025) Urine Protein (NEG/TRACE) mg/dL Urine Glucose (UA) (NEGATIVE) mg/dL Urine Ketones (NEGATIVE) mg/dL Urine Occult Blood (NEGATIVE) Urine Nitrite (NEGATIVE) Urine Bilirubin (NEGATIVE) Urine Urobilinogen (0.2-1.0) EU/dL Ur Leukocyte Esterase (NEGATIVE) Discharge Plan Discharge Chief Complaint: Weakness Clinical Impression: Weakness generalized, Pneumonitis, Contusion of hip, left Patient Disposition: Admitted as Observation Time of Disposition Decision: 00:40 Condition: Good Discharge Date/Time: 09/06/22 09:05 Sign Out Sign Out Data: Patient Sign Out occurred on 09/05/22 at 22:00. Patient's care was discussed, and care was transferred from Julissa Lee MD and Yamilet Max to Julissa Lee MD. Sign Out Comment: Testing was pending. Care was resumed to Dr. Lee. See her dictation for further evaluation and treatment. Last updated by Yamilet Max at 09/05/22 22:00 Progress Note: A&P Assessment and Plan (1) Weakness generalized: (2) Back pain: Plan this patient was under the care of Dr. Lee throughout the evening hours. They have made arrangements for the patient to go home at 9 AM this morning. However upon reassessment the patient we believe that her degree of fatigability and high risk for falling is not the best of her interest. I re-spoke with the hospitalist today and she will admit the patient for observation. There was no deterioration of her clinical condition but she seems be unsuitable for safe discharge home and has no assistance in the home place. She will be admitted to observation.
--- NOTE | 2022-09-05 20:20 | ECG_ITS ---
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
--- NOTE | 2022-09-05 20:20 | XR_ITS ---
The [address] [address] Patient Name: ORTEGA MARX MRN: [id number] date: 1955 Sex: F Assigned Patient Location: ER Current Patient Location: ER Accession/Order Number: [id number] Exam Date: 09/05/2022 20:45 Report Date: 09/05/2022 21:22 At the request of: CARLO BANEGAS Procedure: XR chest 1V EXAM: XR chest 1V HISTORY: cough, SOB, back pain COMPARISON: 09/03/2022 portable chest TECHNIQUE: Portal chest FINDINGS: IMPRESSION: Poor inspiratory effort. In allowing for difference in technique there is no gross acute abnormality when compared with the prior study. Persistent indistinctness of the left hemidiaphragm that is most likely weight and inspiratory related. No pneumothorax. The heart does not appear discretely enlarged. Full inspiratory PA and lateral chest radiographs are strongly recommended Electronically authenticated by: COLLETTE MALCOLM Date: 09/05/2022 21:22
[2022-09-05 22:02] LABS: Bilirubin Urine NEGATIVE (NEGATIVE); Blood Urine NEGATIVE (NEGATIVE); Clarity Urine SL CLOUDY (CLEAR); Color Urine LT. YELLOW (YELLOW); Glucose Urine UA NEGATIVE (NEGATIVE); Ketones Urine TRACE mg/dL (NEGATIVE); Leukocyte Esterase Urine SMALL (NEGATIVE); Nitrite Urine NEGATIVE (NEGATIVE); Protein Urine NEGATIVE (NEG/TRACE); Specific Gravity Urine >=1.030 (1.005-1.025); Urobilinogen Urine 0.2 EU/dL (0.2-1.0); pH Urine 6.5 (5.0-9.0)
[2022-09-05 22:12] LABS: Alanine Aminotransferase 29 U/L (14-59); Albumin Level 3.2 g/dL (3.4-5.0); Alkaline Phosphatase 78 U/L (46-116); Anion Gap 10.1; Aspartate Amino Transferase 36 U/L (15-37); Bilirubin Total 0.6 mg/dL (0.2-1.0); Calcium 9.5 mg/dL (8.5-10.1); Chloride 105 mmol/L (98-107); Estimated GFR (African America >60 (>=60); Estimated GFR (Non-African Ame >60 (>=60); Globulin 3.3 g/dL; Glucose 82 mg/dL (74-106); Potassium 4.1 mmol/L (3.5-5.1); Sodium 142 mmol/L (136-145); Total Protein 6.5 g/dL (6.4-8.2); Troponin I High Sensitivity 10.8 pg/mL (4.0-51.3)
[2022-09-05 22:18] LABS: Basophils Absolute Auto 0.1 10^3/uL (0.0-0.1); Basophils Percent Auto 0.6 % (0.2-2.0); Eosinophils Absolute Auto 0.1 10^3/uL (0.0-0.7); Eosinophils Percent Auto 0.8 % (0.9-7.0); Hematocrit 36.3 % (36.0-48.0); Hemoglobin 11.8 g/dL (12.0-16.0); Immature Granulocytes Abs Auto 0.26 10^3/uL (0.00-0.03); Immature Granulocytes Pct Auto 2.4 % (0.0-0.5); Lymphocytes Absolute Auto 1.3 10^3/uL (1.2-3.8); Lymphocytes Percent Auto 12.2 % (20.5-60.0); Mean Corpuscular HGB Conc 32.5 g/dL (29.9-35.2); Mean Corpuscular Hemoglobin 31.6 pg (26.7-34.0); Mean Corpuscular Volume 97.1 fL (81.0-99.0); Mean Platelet Volume 10.7 fL (9.5-13.5); Monocytes Absolute Auto 0.8 10^3/uL (0.3-0.8); Monocytes Percent Auto 6.9 % (1.7-12.0); Neutrophils Absolute Auto 8.4 10^3/uL (1.4-6.5); Neutrophils Percent Auto 77.1 % (43.0-75.0); Platelet Count 200 10^3/uL (150-450); Red Blood Count 3.74 10^6/uL (4.20-5.40); Red Cell Distribution Width 14.6 % (11.0-15.0); White Blood Count 10.9 10^3/uL (4.0-11.0)
--- NOTE | 2022-09-05 22:23 | CT_ITS ---
[address] [address] Patient Name: ORTEGA MARX MRN: [id number] date: 1955 Sex: F Assigned Patient Location: ED.MAIN Current Patient Location: ED.MAIN Accession/Order Number: [id number] Exam Date: 09/05/2022 22:33 Report Date: 09/05/2022 23:26 At the request of: RAFAEL BLANCO Procedure: CT chest w con CT chest w con, 09/05/2022 10:33 PM EDT INDICATION: dyspnea COMPARISON: 11/09/2021 TECHNIQUE: Iodinated contrast was administered intravenously by rapid injection, with further multislice axial sections acquired in the pulmonary arterial phase from the thoracic inlet to the upper abdomen. Coronal maximal intensity projection images were created for comprehensive analysis and diagnosis of the regional circulation. Dose reduction techniques were achieved by using automated exposure control and/or adjustment of mA and/or kV according to patient size and/or use of iterative reconstruction technique. FINDINGS: Lungs/Pleura: There are increased interstitial markings bilaterally, more prominent in the left lower lobe than elsewhere in both lungs. No segmental or lobar foci of airspace consolidation. Pleural spaces are clear. Vasculature: No visible pulmonary arterial thrombus or attenuation. Amairani: No mass or adenopathy. Mediastinum: No mass or adenopathy. Cardiac: Normal. No enlargement, pericardial thickening, or significant calcification. Aorta: Normal. No aneurysm or dissection. Chest Wall: No mass or axillary adenopathy Limited Abd: Limited images of the upper abdomen are unremarkable. Bones: Mild multilevel spondylosis. No bony lesion or fracture. Other: Negative. IMPRESSION: Increased interstitial markings bilaterally, likely representing scarring secondary to the multifocal pneumonitis seen on prior study of one year ago. Superimposed interstitial pneumonitis is not excluded. No evidence for pulmonary embolism. Electronically authenticated by: Ina RUVALCABA Date: 09/05/2022 23:26
[2022-09-06] VITALS (15 sets, daily range): BP systolic 128–186; BP diastolic 70–92; PULSE 77–108; RESP 14–22; TEMP 36.8; O2SAT 93–97; BMI 35.0
[2022-09-06] MEDS: TRAMADOL HCL 50 MG TABLET PO ×2 (00:34→16:36)
[2022-09-06] MEDS: ENOXAPARIN SODIUM 40 MG/0.4 ML SYRINGE SUBQ (10:57)
--- NOTE | 2022-09-06 11:23 | P.HP_ITS ---
H&P: HPI History of Present Illness Chief complaint: FALL/INABILITY TO CARE FOR SELF AT HOME Narrative: patient is a 67-year-old female with past medical history of long haul covid,hypertension, ex-smoker, and rheumatoid arthritis. She has been in the Emergency Room on two separate occasions this week for a headache and a fall. 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 She denies any loss of consciousness or hitting her head at that time. She spent over a month and a hospital in [place] for severe covid infection and has been following every three months since that hospitalization a year ago with an infectious disease doctor. She wears approximately 3 L of continuous nasal cannula oxygen. She is treated with daily prednisone for her rheumatoid arthritis. Her only other complaint today is a headache that is located in her frontal sinus, she denies any fevers chills shortness of breath chest pain dizziness visual changes. Patient does live at home alone she has a son who lives out of town. She reports up to this time she has been getting around her home easily with no concerns. Chest x-ray from Emergency Room visit on 09/03/2022 showed possible left lower lobe infiltrate and was treated with outpatient Levaquin. Patient was admitted to the hospital for falls weakness and possible community-acquired pneumonia. Review of Systems ROS Narrative ROS: a complete review of systems were reviewed with patient and are positive as below or listed in History of Chief Complaint. General: no fever, chills, night sweats Head: frontal headache, no trauma, no visual changes, no nausea or vomiting Skin: no reported rashes, itching or sores Eyes: no blurriness of vision Ears: no reported hearing loss, vertigo, earache, or tinnitus Throat: no sore throat, hoarseness, swelling of neck, or tongue pain Heart: no chest pain Lungs: no shortness of breath or cough GI: no diarrhea or vomiting/nausea Urinary: no urinary urgency, frequency or pain Neuro: no numbness or tingling HEM: no bleeding issues or bruising ENDO: no thyroid problems Psych: no anxiety or depression [facility] Medical History (Updated 09/06/22 @ 11:33 by Sofia Alexandre DO) Surgical History Social History Within the past year, how often did you have a drink containing alcohol: never Score interpretation: A score less than 3 is consistent with normal alcohol consumption. Smoking status: Former smoker Non-prescribed substance use: denies use Known occupational exposures/hazards: No Highest level of school completed/degree received: high school graduate In a typical week, how many times do you talk on the telephone with family, friends, or neighbors: 3 or more times per week How often do you get together with friends or relatives: 3 or more times per week Little interest or pleasure in doing things: not at all Feeling down, depressed, or hopeless: not at all Feel stressed/tense/nervous/anxious/difficulty sleeping: not at all Do you think of yourself as: straight/heterosexual Gender Identity: female Meds Home Medications and Allergies Home Medications Medication Instructions Recorded Confirmed Type albuterol sulfate 90 mcg/actuation inhalation 09/03/22 History aerosol inhaler fexofenadine 180 mg tablet mg 09/03/22 History levofloxacin 500 mg tablet 500 mg PO DAILY 7 days #7 tabs 09/03/22 09/06/22 Rx levofloxacin 500 mg tablet 500 mg PO Q24H 09/03/22 09/06/22 History prednisone 10 mg tablet 10 mg PO Q12H 09/03/22 09/06/22 History prednisone 5 mg tablet mg 09/03/22 History tramadol 50 mg tablet 50 mg PO Q8H PRN pain 09/03/22 09/06/22 History amlodipine 2.5 mg tablet 2.5 mg PO DAILY 09/06/22 09/06/22 History tramadol 50 mg tablet 50 mg PO Q8H PRN pain 5 days #14 09/06/22 Rx tabs Allergies Allergy/AdvReac Type Severity Reaction Status Date / Time No Known Drug Allergies Allergy Verified 09/03/22 17:18 Exam Narrative Exam Narrative: General: Patient is alert, and oriented to person, place and time with normal affect, proper hygiene Skin: several ecchymosis on the upper ext Head: atraumatic, acephalic Eyes: PERRLA, no nystagmus present, conjunctiva clear, no scleral icterus Ears: normal gross auditory acuity Nose: symmetric, no discharge, no maxillary or frontal sinus tenderness Mouth/Throat: no erythema, exudate, or tonsillar enlargement, normal dentition Neck: no masses palpated, normal thyroid, no JVD or audible carotid bruits Heart: Normal rate and rhythm, no murmurs/rubs/gallops Lungs: no audible wheezes, crackles and normal breath sounds all lung mcnally Abdomen: Normal audible bowel sounds, no distension, No palpable masses, no organomegaly, no rebound/guarding/ or rigidity Musculoskeletal: ROM is limited due to being in hospital bed, no swelling bilateral lower extremities Vascular: Normal carotid, radial, femoral, posterior tibial, and dorsalis pedis pulses Lymph: no supraclavicular, axillary, or anterior/posterior cervical adenopathy Neuro: CN II-X grossly intact, normal sensation upper and lower extremities Constitutional Vital Signs - 24 hr 09/05/22 19:32 09/05/22 19:30 09/05/22 19:30 Temperature 99 F Pulse Rate 101 H 100 H Pulse Rate [Monitor] 106 H Respiratory Rate 28 H 24 27 H Blood Pressure 128/86 H 128/86 H Blood Pressure [Left Arm] 126/86 H Pulse Oximetry 97 Oxygen Delivery Method Oxygen Delivery Flow Rate 09/06/22 00:38 09/06/22 05:06 09/06/22 00:38 Temperature Pulse Rate 101 H 97 H Pulse Rate [Monitor] Respiratory Rate 22 20 Blood Pressure 156/90 H 156/90 H Blood Pressure [Left Arm] 138/70 H Pulse Oximetry 97 Oxygen Delivery Method Oxygen Delivery Flow Rate 09/06/22 04:59 09/06/22 09:19 09/06/22 09:02 Temperature 98.2 F Pulse Rate 95 H 103 H Pulse Rate [Monitor] Respiratory Rate 17 20 Blood Pressure 186/92 H Blood Pressure [Left Arm] 151/91 H Pulse Oximetry 94 L Oxygen Delivery Method Nasal Cannula Nasal Cannula Oxygen Delivery Flow Rate 4 4 09/06/22 09:49 09/06/22 11:10 Temperature Pulse Rate 98 H Pulse Rate [Monitor] Respiratory Rate Blood Pressure Blood Pressure [Left Arm] Pulse Oximetry 95 Oxygen Delivery Method Nasal Cannula Oxygen Delivery Flow Rate 3 Results Labs Labs: Short CBC 09/05/22 Range/Units 20:58 WBC 10.9 (4.0-11.0) 10^3/uL Hgb 11.8 L (12.0-16.0) g/dL Hct 36.3 (36.0-48.0) % Plt Count 200 (150-450) 10^3/uL BMP 09/05/22 20:58 Sodium 142 Potassium 4.1 Chloride 105 Carbon Dioxide 31.0 BUN 12.0 Creatinine 0.48 L Glucose 82 Calcium 9.5 Liver Function 09/05/22 Range/Units 20:58 Total Bilirubin 0.6 (0.2-1.0) mg/dL AST 36 (15-37) U/L ALT 29 (14-59) U/L Alkaline Phosphatase 78 (46-116) U/L Albumin 3.2 L (3.4-5.0) g/dL Urine 09/05/22 Range/Units 21:45 Urine Color Lt. yellow (YELLOW) Urine Clarity Sl cloudy (CLEAR) Urine pH 6.5 (5.0-9.0) Ur Specific [place] >=1.030 A (1.005-1.025) Urine Protein Negative (NEG/TRACE) mg/dL Urine Glucose (UA) Negative (NEGATIVE) mg/dL Assessment and Plan Assessment and Plan (1) Pneumonia: Assessment and Plan: patient has been treated outpatient with Levaquin since 09/04/[address] on Rocephin and azithromycin while inpatient. Oxygen saturations have been stable on patient's home 3 L nasal cannula, will continue on oral prednisone. Normal white blood cell count that was elevated on Emergency Room visit prior. (2) Chronic obstructive pulmonary disease with (acute) exacerbation: Assessment and Plan: patient is an ex-smoker does not report any inhaler use, continue oxygen therapy and will adjust treatment accordingly. (3) Headache: Assessment and Plan: Ultram as needed and morphine only for severe headache. Patient had a normal CT scan of the head less than thirty days ago. No trauma to the head no visual changes reported no neuro symptoms or signs on exam. (4) Weakness generalized: Assessment and Plan: physical therapy and occupational therapy consultation and appreciate their input. Patient does live at home and has been very weak. (5) Hypertension: Assessment and Plan: continue home amlodipine (6) Rheumatoid arthritis: Assessment and Plan: continue prednisone Plan will continue Lovenox for deep vein thrombosis prophylaxis Patient is a full code admitted to observation status and is not expected to stay more than two midnighs
[2022-09-06] MEDS: LACTATED RINGER'S SOLUTION 1,000 ML 125 ML IV ×2 (11:51→22:24)
[2022-09-06] MEDS: AMLODIPINE BESYLATE 5 MG TABLET 2.5 MG PO (11:52)
[2022-09-06] MEDS: PREDNISONE 10 MG TABLET PO ×2 (11:52→21:15)
[2022-09-06] MEDS: AZITHROMYCIN 500 MG in 0.9 % SODIUM CHLORIDE 250 ML 250 MG IV (11:56)
[2022-09-06] MEDS: CEFTRIAXONE 1,000 MG in 0.9 % SODIUM CHLORIDE 50 ML 100 MG IV (13:38)
[2022-09-06] MEDS: ACETAMINOPHEN 325 MG TABLET 650 MG PO (20:18)
[2022-09-07] VITALS (11 sets, daily range): BP systolic 139–147; BP diastolic 78–92; PULSE 83–104; RESP 14–20; TEMP 36–37.1; O2SAT 93–97
[2022-09-07] MEDS: LACTATED RINGER'S SOLUTION 1,000 ML 125 ML IV (03:16)
[2022-09-07 05:41] LABS: Basophils Percent Auto 0.4 % (0.2-2.0); Eosinophils Percent Auto 0.2 % (0.9-7.0); Hematocrit 36.2 % (36.0-48.0); Hemoglobin 11.5 g/dL (12.0-16.0); Immature Granulocytes Abs Auto 0.13 10^3/uL (0.00-0.03); Immature Granulocytes Pct Auto 1.6 % (0.0-0.5); Lymphocytes Absolute Auto 0.9 10^3/uL (1.2-3.8); Lymphocytes Percent Auto 10.3 % (20.5-60.0); Mean Corpuscular HGB Conc 31.8 g/dL (29.9-35.2); Mean Corpuscular Hemoglobin 30.6 pg (26.7-34.0); Mean Corpuscular Volume 96.3 fL (81.0-99.0); Mean Platelet Volume 9.5 fL (9.5-13.5); Monocytes Absolute Auto 0.5 10^3/uL (0.3-0.8); Monocytes Percent Auto 5.4 % (1.7-12.0); Neutrophils Absolute Auto 6.9 10^3/uL (1.4-6.5); Neutrophils Percent Auto 82.1 % (43.0-75.0); Platelet Count 183 10^3/uL (150-450); Red Blood Count 3.76 10^6/uL (4.20-5.40); Red Cell Distribution Width 14.7 % (11.0-15.0); White Blood Count 8.4 10^3/uL (4.0-11.0)
[2022-09-07 05:53] LABS: Alanine Aminotransferase 27 U/L (14-59); Albumin Globulin Ratio 0.9; Albumin Level 2.8 g/dL (3.4-5.0); Alkaline Phosphatase 76 U/L (46-116); Anion Gap 9.1; Aspartate Amino Transferase 22 U/L (15-37); BUN Creatinine Ratio 17.8; Bilirubin Total 0.4 mg/dL (0.2-1.0); Calcium 9.3 mg/dL (8.5-10.1); Carbon Dioxide 32.5 mmol/L (21.0-32.0); Chloride 102 mmol/L (98-107); Chol HDL Ratio 4.5; Cholesterol 229 mg/dL (<=200); Estimated GFR (African America >60 (>=60); Estimated GFR (Non-African Ame >60 (>=60); Glucose 113 mg/dL (74-106); HDL Cholesterol 51 mg/dL (40-60); Potassium 3.6 mmol/L (3.5-5.1); Sodium 140 mmol/L (136-145); Total Protein 5.8 g/dL (6.4-8.2); Triglycerides 196 mg/dL (<=150); VLDL CHOLESTEROL 39.2 mg/dL
[2022-09-07 05:59] LABS: Estimated Average Glucose 82 mg/dL; Glycohemoglobin A1C 4.5 % (4.5-6.2)
[2022-09-07] MEDS: AZITHROMYCIN 500 MG in 0.9 % SODIUM CHLORIDE 250 ML 250 MG IV (08:08)
[2022-09-07] MEDS: PREDNISONE 10 MG TABLET PO ×2 (08:12→22:37)
[2022-09-07] MEDS: AMLODIPINE BESYLATE 5 MG TABLET 2.5 MG PO (08:12)
[2022-09-07] MEDS: ENOXAPARIN SODIUM 40 MG/0.4 ML SYRINGE SUBQ (08:13)
[2022-09-07] MEDS: TRAMADOL HCL 50 MG TABLET PO ×2 (10:23→22:37)
[2022-09-07] MEDS: CEFTRIAXONE 1,000 MG in 0.9 % SODIUM CHLORIDE 50 ML 100 MG IV (10:24)
[2022-09-07] MEDS: ACETAMINOPHEN 325 MG TABLET 650 MG PO ×2 (13:39→18:20)
--- NOTE | 2022-09-07 14:02 | PM.PN ---
Progress Note: Subjective Subjective Interval history: patient is a 67-year-old female with past medical history of long haul covid,hypertension, ex-smoker, and rheumatoid arthritis. She has been in the Emergency Room on two separate occasions this week for a headache and a fall. She notes that her fall was from trying to fruit or nut picker a fork that had fallen on the floor and she lost her balance and fell on her bottom. She denies any loss of consciousness or hitting her head at that time. She spent over a month and a hospital in [place] for severe covid infection and has been following every three months since that hospitalization a year ago with an infectious disease doctor. She wears approximately 3 L of continuous nasal cannula oxygen. She is treated with daily prednisone for her rheumatoid arthritis. Her only other complaint today is a headache that is located in her frontal sinus, she denies any fevers chills shortness of breath chest pain dizziness visual changes. Patient does live at home alone she has a son who lives out of town. She reports up to this time she has been getting around her home easily with no concerns. Chest x-ray from Emergency Room visit on 09/03/2022 showed possible left lower lobe infiltrate and was treated with outpatient Levaquin. Patient was admitted to the hospital for falls weakness and possible community-acquired pneumonia. This morning is feeling better, she has been up to bedside commode without issues, she would like to go home with home health if possible. Exam Narrative Exam Narrative: General: Patient is alert, and oriented to person, place and time with normal affect, proper hygiene Skin: multiple ecchymosis over arms Head: atraumatic, acephalic Eyes: PERRLA, no nystagmus present, conjunctiva clear, no scleral icterus Heart: Normal rate and rhythm, no murmurs/rubs/gallops Lungs: no audible wheezes, crackles and normal breath sounds all lung mcnally Abdomen: Normal audible bowel sounds, no distension, No palpable masses, no organomegaly, no rebound/guarding/ or rigidity Musculoskeletal: muscle atrophy noted, ROM is limited due to being in hospital bed, no swelling bilateral lower extremities Vascular: Normal carotid, radial, femoral, posterior tibial, and dorsalis pedis pulses Lymph: no supraclavicular, axillary, or anterior/posterior cervical adenopathy Neuro: CN II-X grossly intact, normal sensation upper and lower extremities Constitutional Vital Signs - 24 hr 09/06/22 18:02 09/06/22 19:28 09/06/22 19:28 Temperature Pulse Rate 100 H Pulse Rate [Monitor] 108 H Respiratory Rate 14 Blood Pressure [Left Arm] Blood Pressure [Right Arm] Pulse Oximetry 93 L Oxygen Delivery Method Nasal Cannula Oxygen Delivery Flow Rate 3 09/06/22 19:57 09/06/22 22:00 09/06/22 21:59 Temperature 98.3 F Pulse Rate 103 H 77 91 H Pulse Rate [Monitor] Respiratory Rate 16 Blood Pressure [Left Arm] Blood Pressure [Right Arm] 128/85 H Pulse Oximetry 95 Oxygen Delivery Method Nasal Cannula Oxygen Delivery Flow Rate 3 09/06/22 23:54 09/07/22 01:52 09/07/22 03:51 Temperature Pulse Rate 94 H 98 H Pulse Rate [Monitor] Respiratory Rate Blood Pressure [Left Arm] Blood Pressure [Right Arm] Pulse Oximetry 95 Oxygen Delivery Method Nasal Cannula Oxygen Delivery Flow Rate 3 09/07/22 03:56 09/07/22 05:53 09/07/22 06:00 Temperature 96.8 F L Pulse Rate 93 H 87 83 Pulse Rate [Monitor] Respiratory Rate 14 Blood Pressure [Left Arm] 145/92 H Blood Pressure [Right Arm] Pulse Oximetry 95 Oxygen Delivery Method Nasal Cannula Oxygen Delivery Flow Rate 3 09/07/22 08:02 09/07/22 10:02 09/07/22 11:52 Temperature Pulse Rate 95 H 104 H Pulse Rate [Monitor] Respiratory Rate Blood Pressure [Left Arm] Blood Pressure [Right Arm] Pulse Oximetry 96 Oxygen Delivery Method Nasal Cannula Oxygen Delivery Flow Rate 3 09/07/22 13:23 Temperature 98.2 F Pulse Rate 100 H Pulse Rate [Monitor] Respiratory Rate 20 Blood Pressure [Left Arm] Blood Pressure [Right Arm] 139/78 H Pulse Oximetry 93 L Oxygen Delivery Method Nasal Cannula Oxygen Delivery Flow Rate 3 Progress Note: Objective Labs Labs: Short CBC 09/07/22 Range/Units 05:18 WBC 8.4 (4.0-11.0) 10^3/uL Hgb 11.5 L (12.0-16.0) g/dL Hct 36.2 (36.0-48.0) % Plt Count 183 (150-450) 10^3/uL BMP 06/18/23 05:18 Sodium 140 Potassium 3.6 Chloride 102 Carbon Dioxide 32.5 H BUN 8.0 Creatinine 0.45 L Glucose 113 H Calcium 9.3 Liver Function 09/07/22 Range/Units 05:18 Total Bilirubin 0.4 (0.2-1.0) mg/dL AST 22 (15-37) U/L ALT 27 (14-59) U/L Alkaline Phosphatase 76 (46-116) U/L Albumin 2.8 L (3.4-5.0) g/dL Progress Note: A&P Assessment and Plan (1) Pneumonia: Assessment and Plan: patient has been treated outpatient with Levaquin since 09/04/[address] on Rocephin and azithromycin while inpatient. Oxygen saturations have been stable on patient's home 3 L nasal cannula, will continue on oral prednisone. Normal white blood cell count that was elevated on Emergency Room visit prior, normal morning labs (2) Chronic obstructive pulmonary disease with (acute) exacerbation: Assessment and Plan: patient is an ex-smoker does not report any inhaler use, continue oxygen therapy and will adjust treatment accordingly. (3) Headache: Assessment and Plan: Ultram as needed and morphine only for severe headache. Patient had a normal CT scan of the head less than thirty days ago. No trauma to the head no visual changes reported no neuro symptoms or signs on exam; could be from sinusitis or right shoulder pain (4) Weakness generalized: Assessment and Plan: physical therapy and occupational therapy consultation and appreciate their input. Patient does live at home and has been very weak but would prefer to home health; normal lipids and ha1c and thyroid labs (5) Hypertension: Assessment and Plan: continue home amlodipine (6) Rheumatoid arthritis: Assessment and Plan: continue prednisone Plan will continue Lovenox for deep vein thrombosis prophylaxis Patient is a full code admitted to observation status and is not expected to stay more than two midnighs
[2022-09-07] MEDS: PREDNISONE 5 MG TABLET PO (22:37)
[2022-09-08] VITALS (7 sets, daily range): BP systolic 154–175; BP diastolic 92–102; PULSE 87–104; RESP 18–20; TEMP 36.4–36.6; O2SAT 92–98; BMI 32.1
[2022-09-08] MEDS: ACETAMINOPHEN 325 MG TABLET 650 MG PO ×3 (03:03→21:10)
[2022-09-08 04:38] LABS: Hematocrit 36.9 % (36.0-48.0); Hemoglobin 11.8 g/dL (12.0-16.0); Mean Corpuscular Hemoglobin 30.9 pg (26.7-34.0); Mean Corpuscular Volume 96.6 fL (81.0-99.0); Red Blood Count 3.82 10^6/uL (4.20-5.40); White Blood Count 7.9 10^3/uL (4.0-11.0)
[2022-09-08 04:39] LABS: Basophils Percent Auto 0.3 % (0.2-2.0); Eosinophils Percent Auto 0.3 % (0.9-7.0); Immature Granulocytes Pct Auto 1.4 % (0.0-0.5); Lymphocytes Absolute Auto 0.5 10^3/uL (1.2-3.8); Lymphocytes Percent Auto 6.8 % (20.5-60.0); Mean Platelet Volume 9.4 fL (9.5-13.5); Monocytes Absolute Auto 0.3 10^3/uL (0.3-0.8); Monocytes Percent Auto 3.9 % (1.7-12.0); Neutrophils Absolute Auto 6.9 10^3/uL (1.4-6.5); Neutrophils Percent Auto 87.3 % (43.0-75.0); Platelet Count 196 10^3/uL (150-450); Red Cell Distribution Width 14.6 % (11.0-15.0)
[2022-09-08 04:40] LABS: Immature Granulocytes Abs Auto 0.11 10^3/uL (0.00-0.03)
[2022-09-08 04:50] LABS: Alanine Aminotransferase 27 U/L (14-59); Albumin Globulin Ratio 0.9; Albumin Level 2.9 g/dL (3.4-5.0); Alkaline Phosphatase 74 U/L (46-116); Aspartate Amino Transferase 23 U/L (15-37); BUN Creatinine Ratio 14.5; Bilirubin Total 0.4 mg/dL (0.2-1.0); Calcium 9.4 mg/dL (8.5-10.1); Carbon Dioxide 30.7 mmol/L (21.0-32.0); Chloride 104 mmol/L (98-107); Estimated GFR (African America >60 (>=60); Estimated GFR (Non-African Ame >60 (>=60); Globulin 3.3 g/dL; Glucose 137 mg/dL (74-106); Potassium 3.7 mmol/L (3.5-5.1); Sodium 141 mmol/L (136-145); Total Protein 6.2 g/dL (6.4-8.2)
[2022-09-08] MEDS: PREDNISONE 10 MG TABLET PO (08:36)
[2022-09-08] MEDS: AZITHROMYCIN 500 MG in 0.9 % SODIUM CHLORIDE 250 ML 250 MG IV (08:36)
[2022-09-08] MEDS: ENOXAPARIN SODIUM 40 MG/0.4 ML SYRINGE SUBQ (08:37)
[2022-09-08] MEDS: AMLODIPINE BESYLATE 5 MG TABLET 2.5 MG PO (08:37)
[2022-09-08] MEDS: 0.9 % SODIUM CHLORIDE 250 ML 100 ML IV (08:37)
[2022-09-08] MEDS: TRAMADOL HCL 50 MG TABLET PO ×2 (09:41→17:14)
[2022-09-08] MEDS: CEFTRIAXONE 1,000 MG in 0.9 % SODIUM CHLORIDE 50 ML 100 MG IV (10:12)
[2022-09-08] MEDS: LIDOCAINE 5% PATCH 1 PATCH TOPICAL (10:12)
--- NOTE | 2022-09-08 10:29 | CT_ITS ---
[address] [address] Patient Name: ORTEGA MARX MRN: [id number] date: 1955 Sex: F Assigned Patient Location: [place] Current Patient Location: [place] Accession/Order Number: [id number] Exam Date: 09/08/2022 11:58 Report Date: 09/08/2022 16:32 At the request of: REFUGIO RICKS Procedure: CT cervical spine wo con EXAMINATION: CT cervical spine wo con HISTORY: neck pain, headache, history of RA COMPARISON: None. TECHNIQUE: CT Cervical spine without IV contrast. Coronal and sagittal reformations were performed. Dose reduction techniques were achieved by using automated exposure control and/or adjustment of mA and/or kV according to patient size and/or use of iterative reconstruction technique. FINDINGS: CV JUNCTION: Normal foramen magnum with no Chiari malformation. PARASPINAL: Normal with no visible mass. BONES: There is a transverse fracture through the base of odontoid. Fracture margins are somewhat rounded, suggesting that this is a subacute or old finding. No anterior or posterior offset of the odontoid relative to the C2 body. Posterior arch of C1 aligns normally with the posterior arch of C2. OTHER: None. DISC LEVELS: C1-C2: C1 anterior arch articulation with the odontoid within normal limits for age. C2-C3: No significant disc/facet abnormality, spinal stenosis, or foraminal stenosis. C3-C4: Early degenerative disc disease is present without focal protrusion or central canal impingement. There is right foraminal stenosis by vertebral and facet osteophytosis. The left foramen is satisfactorily maintained. C4-C5: Moderate degenerative disc disease is present. The central canal is satisfactorily maintained. There is bilateral foraminal stenosis, greater on the left than on the right.. C5-C6: Moderate degenerative disc disease is present. A posterior disc/osteophyte complex results in mild central canal stenosis. There is bilateral foraminal stenosis. C6-C7: Moderate degenerative disc disease is present. A posterior disc/osteophyte complex results in mild central canal stenosis. There is bilateral foraminal stenosis. C7-T1: Early degenerative disc disease is present without focal protrusion or neural impingement. IMPRESSION: Type II odontoid fracture. Clinical history does not indicate acute trauma, and the rounded fracture margins suggest that this is a subacute or old finding. There is no prior cervical spine imaging to compare. Please correlate clinically. Multilevel cervical spondylosis with resulting mild central canal stenosis at levels C5-C6 and C6-C7. Electronically authenticated by: nIa RUVALCABA Date: 09/08/2022 16:32
[2022-09-08 10:53] LABS: Erythrocyte Sedimentation Rate 68 mm/hr (<=30)
--- NOTE | 2022-09-08 11:00 | CM.NOTE ---
Rounds made with Dr. Alexandre, pt c/o neck pain and will get CT of neck and add CRP and sed rate to AM labs.
[2022-09-08 11:16] LABS: C Reactive Protein 5.3 mg/dL (<=1.0)
--- NOTE | 2022-09-08 11:30 | SWNOTE1 ---
SW met with pt to discuss dc needs. Pt lives at home alone, her son lives in [place], but her neighbor ladleander does help her as needed. Pt has a walker at home and a lift chair as well. Pt does wear 3 liters of home oxygen. SW and pt spoke about the possibility of rehab or HH. At this time pt is in observation status and has been since . SW spoke with her about medicare not being able to pay unless she has a 3 day inpt stay, but she does meet inpt status at this time. SW let her know it may be possible to go under her medicaid. SW also spoke to her about HH coming in a few times of the week. We are going to see what CT results are and go from there.
[2022-09-08] MEDS: METHYLPREDNISOLONE SOD SUCC PF 40 MG/ML VIAL IVP ×2 (11:36→17:32)
--- NOTE | 2022-09-08 11:44 | SWNOTE1 ---
Pt did ask about facilities in [facility] to check with [facility] and [facility] to see if they can do medicaid for skilled.
--- NOTE | 2022-09-08 11:52 | SWNOTE1 ---
Referral was sent to [facility], [facility] is not able to accept due to her medicaid
--- NOTE | 2022-09-08 11:52 | PM.PN ---
Progress Note: Subjective Subjective Interval history: patient is a 67-year-old female with past medical history of long haul covid,hypertension, ex-smoker, and rheumatoid arthritis. She has been in the Emergency Room on two separate occasions this week for a headache and a fall. 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 She denies any loss of consciousness or hitting her head at that time. She spent over a month and a hospital in [place] for severe covid infection and has been following every three months since that hospitalization a year ago with an infectious disease doctor. She wears approximately 3 L of continuous nasal cannula oxygen. She is treated with daily prednisone for her rheumatoid arthritis. Her only other complaint today is a headache that is located in her frontal sinus, she denies any fevers chills shortness of breath chest pain dizziness visual changes. Patient does live at home alone she has a son who lives out of town. She reports up to this time she has been getting around her home easily with no concerns. Chest x-ray from Emergency Room visit on 09/03/2022 showed possible left lower lobe infiltrate and was treated with outpatient Levaquin. Patient was admitted to the hospital for falls weakness and possible community-acquired pneumonia. This morning is feeling better, she has been up to bedside commode without issues, she would like to go home with home health if possible. today is complaining of neck, right shoulder pain and headache, she is yelling out in pain today, did not perform well for PT. Exam Narrative Exam Narrative: General: Patient is alert, and oriented to person, place and time with normal affect, proper hygiene Skin: multiple ecchymosis over both arms Head: atraumatic, acephalic Heart: Normal rate and rhythm, no murmurs/rubs/gallops Lungs: no audible wheezes, crackles and normal breath sounds all lung mcnally Abdomen: Normal audible bowel sounds, no distension, No palpable masses, no organomegaly, no rebound/guarding/ or rigidity Musculoskeletal: ROM is limited due to being in hospital bed, no swelling bilateral lower extremities, some palpable pain of the right shoulder and posterior neck Vascular: Normal carotid, radial, femoral, posterior tibial, and dorsalis pedis pulses Lymph: no supraclavicular, axillary, or anterior/posterior cervical adenopathy Neuro: CN II-X grossly intact, normal sensation upper and lower extremities Constitutional Vital Signs - 24 hr 09/07/22 13:23 09/07/22 20:09 09/07/22 21:25 Temperature 98.2 F 98.8 F Pulse Rate 100 H 91 H Respiratory Rate 20 18 Blood Pressure [Left Arm] 147/88 H Blood Pressure [Right Arm] 139/78 H Pulse Oximetry 93 L 97 94 L Oxygen Delivery Method Nasal Cannula Nasal Cannula Nasal Cannula Oxygen Delivery Flow Rate 3 3 3 09/08/22 04:17 09/08/22 06:00 09/08/22 11:29 Temperature 97.5 F L Pulse Rate 87 Respiratory Rate 18 Blood Pressure [Left Arm] 154/92 H Blood Pressure [Right Arm] Pulse Oximetry 94 L 97 92 L Oxygen Delivery Method Nasal Cannula Nasal Cannula Nasal Cannula Oxygen Delivery Flow Rate 3 3 3 Progress Note: Objective Labs Labs: Short CBC 09/08/22 Range/Units 04:20 WBC 7.9 (4.0-11.0) 10^3/uL Hgb 11.8 L (12.0-16.0) g/dL Hct 36.9 (36.0-48.0) % Plt Count 196 (150-450) 10^3/uL BMP 09/08/22 04:20 Sodium 141 Potassium 3.7 Chloride 104 Carbon Dioxide 30.7 BUN 8.0 Creatinine 0.55 Glucose 137 H Calcium 9.4 Liver Function 09/08/22 Range/Units 04:20 Total Bilirubin 0.4 (0.2-1.0) mg/dL AST 23 (15-37) U/L ALT 27 (14-59) U/L Alkaline Phosphatase 74 (46-116) U/L Albumin 2.9 L (3.4-5.0) g/dL Progress Note: A&P Assessment and Plan (1) Pneumonia: Assessment and Plan: patient has been treated outpatient with Levaquin since 09/04/[address] on Rocephin and azithromycin while inpatient. Oxygen saturations have been stable on patient's home 3 L nasal cannula, stop oral prednisone due to starting IV solumedrol today. Normal white blood cell count that was elevated on Emergency Room visit prior, normal morning labs (2) Chronic obstructive pulmonary disease with (acute) exacerbation: Assessment and Plan: patient has been treated outpatient with Levaquin since 09/04/[address] on Rocephin and azithromycin while inpatient. Oxygen saturations have been stable on patient's home 3 L nasal cannula, will continue on oral prednisone. Normal white blood cell count that was elevated on Emergency Room visit prior, normal morning labs (3) Headache: Assessment and Plan: neck related? will check cervical spine CT without contrast; RA flare? start solumedrol (4) Weakness generalized: Assessment and Plan: from RA flare possibly, PT/OT evaluation (5) Hypertension: Assessment and Plan: continue home amlodipine (6) Rheumatoid arthritis: Assessment and Plan: check Sed rate, crp today, Cervical CT scan, start IV steroids, stop prednisone orally Plan will continue Lovenox for deep vein thrombosis prophylaxis Patient is a full code admitted to observation status and is not expected to stay more than two midnights
--- NOTE | 2022-09-08 12:04 | DIETREC ---
Nutrition Recommendations: 1. Remove 1800 Calorie diet restriction. Reviewed with
--- NOTE | 2022-09-08 13:10 | SWNOTE1 ---
EARNEST received call from Modesta at [facility], they ran pt's insurance and she does not have traditional medicaid, her medicaid will not cover room and board at [facility] for skilled. 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 SW to verify once we know what plan is.
--- NOTE | 2022-09-08 13:58 | SWNOTE1 ---
EARNEST spoke with pt about her income and her medicaid. 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 Her son helped her apply for medicaid a year ago, but she had too much money. She stated she makes $1,351 a month. EARNEST is not sure the cut off, but did send it to Modesta at [facility] so she is aware. EARNEST talked to pt about possibility of rehab being an out of pocket expense. Pt talked about possibility of just returning home and having her neighbor help her and have Home health come in. At this time Margaux at [facility] is checking in to medicaid and qualifications.
--- NOTE | 2022-09-08 14:19 | SWNOTE1 ---
SW went back in to talk with pt about what HH company she would like to use if going skilled under her medicaid does not work out. She stated she does NOT want HH at this time and they would not help her. SW attempted to encourage pt to at least let HH come in and teach her exercises and keeo her moving, but pt is refusing HH services at this time. SW did leave medicare.gov star rating list for HH companies in room in case pt changes her mind. SW to check back on pt later today or tomorrow.
--- NOTE | 2022-09-08 14:51 | SWNOTE1 ---
SW received email from [facility], which contained the stipulations for pt to come under her medicaid. Pt does own her house and does not want to spend down anything. At this time pt is refusing to go to facility and try to qualify for straight medicaid and refusing HH. SW to check back with pt tomorrow.
[2022-09-09] MEDS: ACETAMINOPHEN 325 MG TABLET 650 MG PO ×2 (03:17→11:30)
[2022-09-09 05:00] LABS: Basophils Percent Auto 0.2 % (0.2-2.0); Hematocrit 38.6 % (36.0-48.0); Hemoglobin 12.4 g/dL (12.0-16.0); Lymphocytes Absolute Auto 0.7 10^3/uL (1.2-3.8); Mean Corpuscular HGB Conc 32.1 g/dL (29.9-35.2); Mean Corpuscular Hemoglobin 30.5 pg (26.7-34.0); Mean Corpuscular Volume 95.1 fL (81.0-99.0); Mean Platelet Volume 9.5 fL (9.5-13.5); Monocytes Absolute Auto 0.4 10^3/uL (0.3-0.8); Monocytes Percent Auto 4.3 % (1.7-12.0); Neutrophils Absolute Auto 9.1 10^3/uL (1.4-6.5); Neutrophils Percent Auto 87.5 % (43.0-75.0); Platelet Count 232 10^3/uL (150-450); Red Blood Count 4.06 10^6/uL (4.20-5.40); White Blood Count 10.3 10^3/uL (4.0-11.0)
[2022-09-09 05:25] LABS: Alanine Aminotransferase 26 U/L (14-59); Albumin Globulin Ratio 0.9; Albumin Level 3.1 g/dL (3.4-5.0); Alkaline Phosphatase 77 U/L (46-116); Anion Gap 10.7; Aspartate Amino Transferase 19 U/L (15-37); Bilirubin Total 0.4 mg/dL (0.2-1.0); Chloride 102 mmol/L (98-107); Estimated GFR (African America >60 (>=60); Estimated GFR (Non-African Ame >60 (>=60); Globulin 3.5 g/dL; Glucose 140 mg/dL (74-106); Potassium 3.7 mmol/L (3.5-5.1); Sodium 138 mmol/L (136-145); Total Protein 6.6 g/dL (6.4-8.2)
[2022-09-09 06:00] VITALS: BP 169/98; PULSE 101; RESP 20; TEMP 36.6; O2SAT 96
[2022-09-09] MEDS: METHYLPREDNISOLONE SOD SUCC PF 40 MG/ML VIAL IVP (06:35)
[2022-09-09] MEDS: TRAMADOL HCL 50 MG TABLET PO ×2 (06:39→20:07)
--- NOTE | 2022-09-09 08:32 | P.PN_ITS ---
Progress Note: Subjective Subjective Interval history: patient is a 67-year-old female with past medical history of long haul covid,hypertension, ex-smoker, and rheumatoid arthritis. She has been in the Emergency Room on two separate occasions this for a headache and a fall. She notes that her fall was from trying to strip picker a fork that had fallen on the floor and she lost her balance and fell on her bottom. She denies any loss of consciousness or hitting her head at that time. She spent over a month in a hospital in [place] for severe covid infection and has been following every three months since that hospitalization a year ago with an infectious disease doctor. She wears approximately 3 L of continuous nasal cannula oxygen. She is treated with daily prednisone for her rheumatoid arthritis. since her admission she has been treated for a community-acquired pneumonia with azith and Rocephin of which was stopped today. her white count remains normal and her blood cultures were normal ?2 on admission chest x-ray there was no signs of acute infection but we were going off of the CT of the chest she had several days ago. Patient continues to complain of right shoulder pain right neck pain and weakness of the right upper extremity.she says she is very limited on how she can move her neck and use her right hand which is her dominant hand. It has been witnessed by nursing staff that she has been using her right hand but refuses to use it with physical therapist. I started IV Solu-Medrol to replace her oral prednisone yesterday to see if this would help improve her symptoms of possible rheumatoid flare given her elevation in ESR and CRP. She has not noticed much of a change with the IV Solu-Medrol. She is very concerned as she lives at home and she cannot use her dominant hand. She says over the years she has been treated for shoulder pain and was told she needed a shoulder replacement on that right side. She was following with orthopedic surgeon for this. She had a CT of the brain in the Emergency Room two days ago which was normal and she does not have any strokelike symptoms. But her main complaint is this weakness of her right upper extremity. Exam Narrative Exam Narrative: General: Patient is alert, and oriented to person, place and time with normal affect, proper hygiene Skin: multiple ecchymosis on the upper extremities Head: atraumatic, acephalic Eyes: PERRLA, no nystagmus present, conjunctiva clear, no scleral icterus Ears: normal gross auditory acuity Nose: symmetric, no discharge, no maxillary or frontal sinus tenderness Mouth/Throat: no erythema, exudate, or tonsillar enlargement, normal dentition Neck: no masses palpated, normal thyroid, no JVD or audible carotid bruits Heart: Normal rate and rhythm, no murmurs/rubs/gallops Lungs: no audible wheezes, crackles and normal breath sounds all lung mcnally Abdomen: Normal audible bowel sounds, no distension, No palpable masses, no organomegaly, no rebound/guarding/ or rigidity Musculoskeletal: ROM is limited due to being in hospital bed but 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, and patient will not abduct the right shoulder, no swelling bilateral lower extremities Lymph: no supraclavicular, axillary, or anterior/posterior cervical adenopathy Neuro: CN II-X grossly intact Constitutional Vital Signs - 24 hr 09/08/22 11:29 09/08/22 12:54 09/08/22 20:00 Temperature 97.8 F Pulse Rate 96 H Pulse Rate [Monitor] 96 H Respiratory Rate 20 20 Blood Pressure [Left Arm] 175/94 H Blood Pressure [Right Arm] Pulse Oximetry 92 L 98 Oxygen Delivery Method Nasal Cannula Nasal Cannula Oxygen Delivery Flow Rate 3 3 09/08/22 21:48 09/08/22 18:48 09/09/22 06:00 Temperature 97.9 F 97.9 F Pulse Rate 104 H 101 H Pulse Rate [Monitor] Respiratory Rate 18 20 Blood Pressure [Left Arm] Blood Pressure [Right Arm] 170/102 H 169/98 H Pulse Oximetry 95 97 96 Oxygen Delivery Method Nasal Cannula Nasal Cannula Nasal Cannula Oxygen Delivery Flow Rate 3 3 3 Progress Note: Objective Labs Labs: Short CBC 09/09/22 Range/Units 04:31 WBC 10.3 (4.0-11.0) 10^3/uL Hgb 12.4 (12.0-16.0) g/dL Hct 38.6 (36.0-48.0) % Plt Count 232 (150-450) 10^3/uL BMP 09/09/22 04:31 Sodium 138 Potassium 3.7 Chloride 102 Carbon Dioxide 29.0 BUN 9.0 Creatinine 0.50 L Glucose 140 H Calcium 10.0 Liver Function 09/09/22 Range/Units 04:31 Total Bilirubin 0.4 (0.2-1.0) mg/dL AST 19 (15-37) U/L ALT 26 (14-59) U/L Alkaline Phosphatase 77 (46-116) U/L Albumin 3.1 L (3.4-5.0) g/dL Progress Note: A&P Assessment and Plan (1) Right arm numbness: Assessment and Plan: given the change of symptoms a CT scan of the cervical spine was obtained yesterday, but since there has been no improvement with the IV Solu-Medrol will get a MRI of the cervical spine with and without contrast. Patient does not display any acute strokelike symptoms but will continue to monitor. Continue with PT OT evaluation (2) Weakness of right arm: Assessment and Plan: see #1 (3) Rheumatoid arthritis flare: Assessment and Plan: stop IV Solu-Medrol and will place on by mouth prednisone 15 mg twice a day, elevated ESR and CRP (4) COVID-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: Assessment and Plan: continue oxygen (5) Headache: Assessment and Plan: most likely stemming from her neck pain and shoulder pain, monitor blood pressure provide when necessary analgesics (6) Weakness generalized: Assessment and Plan: occurred her to work with PT OT (7) Hypertension: Assessment and Plan: stable on amlodipine Plan will continue Lovenox for deep vein thrombosis prophylaxis Patient is a full code patient has not recovered as expected and her weakness has gotten worse which is requiring more imaging, and further work with physical therapy patient was made inpatient status on 09/08/2022 for that reason. I have spoke with her son in regards to her plan of care for approximately fifteen minutes on the phone today and he agrees with the plan of care.
--- NOTE | 2022-09-09 11:03 | REH.PTDLY ---
Physical Therapy Daily Note PT Daily Note/Assess Start: 09/09/22 10:48 Freq: Status: Active Protocol: Document 09/09/22 10:20 KENDRA (Rec: 09/09/22 11:03 KENDRA [id number]) Physical Therapy Daily Note/Assessment Time In 10:00 Time Out 10:20 Pain N/A Pain N/A Subjective Pt still complaining of high pain in neck, but does not rate. States hands are numb. Pt demanding that she be transferred to [place] to see her orthopedic. Does not believe that the CT scan does not show anything new. Complains of legs tingling when sitting. Therapeutic Exercise Minutes (minutes) 8 Therapeutic Exercise Units 1 Therapeutic Exercise Treatment Instructed pt in B LE exs including AP, QS, heel slides, hip abd slides, and SLR with good ROM and strength noted when performing. Pt states her legs feel fine post rx. Total Therapy Minutes 8 Total Physical Therapy Units 1 Daily Note Summary Pt is a Max A with OT transfer to chair. Pt willing to perform B LE exs with PT with pt no longer complaining of radicular symptoms in legs afterwards. OT in room to work with UE's upon exit.
--- NOTE | 2022-09-09 11:08 | MR_ITS ---
[address] [address] Patient Name: ORTEGA MARX MRN: [id number] date: 1955 Sex: F Assigned Patient Location: MS Current Patient Location: MS Accession/Order Number: [id number] Exam Date: 09/09/2022 12:50 Report Date: 09/09/2022 14:59 At the request of: REFUGIO RICKS Procedure: MR cervical spine wo/w con EXAMINATION: MR cervical spine wo/w con HISTORY: right arm numbness and weakness, neck pain, DJD COMPARISON: No relevant comparison available. TECHNIQUE: A variety of imaging planes and parameters were utilized for visualization of suspected pathology without and/or with intravenous Dotarem contrast based on examination type. FINDINGS: CRANIOCERVICAL AREA: Normal foramen magnum with no Chiari malformation. PARASPINAL AREA: Normal with no visible mass. BONES: Fracture base of C2 dens without increased edema or mass. Normal alignment is maintained. CORD: Normal caliber, contour, and signal intensity. CERVICAL DISC LEVELS: C2-C3: Right paracentral broad-based disc protrusion contacting the spinal cord resulting in mild central canal narrowing. Mild bilateral foramen narrowing secondary to degenerative facet arthropathy. C3-C4: Moderate central canal and bilateral foramen narrowing. Mild diffuse disc bulging without disc at reduction. Mild degenerative facet arthropathy, right greater than left. C4-C5: Marked central canal and bilateral foramen narrowing. Moderate diffuse disc bulging and marked disc height reduction. Moderate degenerative facet arthropathy bilaterally. C5-C6: Marked central canal and bilateral foramen narrowing. Moderate diffuse disc bulging with marked disc height reduction. Moderate degenerative facet arthropathy. C6-C7: Moderate marked central canal and marked bilateral foramen narrowing. Moderate diffuse disc bulging with marked disc height reduction. Moderate degenerative facet arthropathy. C7-T1:. Early degenerative disc disease is present without focal protrusion or neural impingement. IMPRESSION: 1. Remote, nondisplaced C2 base of dens fracture. 2. Multilevel marked central canal and foraminal stenosis secondary to degenerative disc disease and facet arthropathy. Electronically authenticated by: ZAN HARRIS Date: 09/09/2022 14:59
--- NOTE | 2022-09-09 11:15 | SWNOTE1 ---
EARNEST spoke with case management and doctor. Pt is now inpatient as of last night and getting MRI today as she is not able to use her right hand. Pt would like to pursue skilled at [facility]. SW updated [facility] and will send over updates once they are documented. Earliest dc to [facility] would be 09/11/22.
[2022-09-09 11:42] VITALS: O2SAT 99
--- NOTE | 2022-09-09 12:37 | CM.NOTE ---
Rounds made with Dr. Alexandre. Plan for MRI C-spine today. Will determine further treatment based on results. Will dc IV antibiotics and IV Solumedrol. Starting back on home dose of Prednisone.
[2022-09-09 13:56] VITALS: BP 151/95; PULSE 100; RESP 20; TEMP 36.6
[2022-09-09] MEDS: MORPHINE SULFATE 2 MG/ML SYRINGE 1 MG IV (17:15)
--- NOTE | 2022-09-09 17:42 | XR_ITS ---
The [address] [address] Patient Name: ORTEGA MARX MRN: [id number] date: 1955 Sex: F Assigned Patient Location: MS Current Patient Location: MS Accession/Order Number: [id number] Exam Date: 09/09/2022 17:30 Report Date: 09/09/2022 18:33 At the request of: REFUGIO RICKS Procedure: XR cervical spine 5V EXAM TYPE: XR cervical spine 5V EXAM DATE AND TIME: 09/09/2022 5:30 PM EDT INDICATION: 67 years old Female with COMPARISON: CT cervical spine 09/08/2022, MRI cervical spine 09/09/2022 TECHNIQUE: 5 views of the cervical spine including flexion and extension lateral views. FINDINGS: BONES/DISCS: As seen on prior CT and MRI, there is a fracture through the base of the odontoid. On the neutral lateral view, the odontoid is offset anteriorly relative to the body of C2 by approximately 9 mm. The anterior cortex of the C1 posterior arch is offset anteriorly by a similar amount as compared to the anterior cortex of the C2 posterior arch. With flexion, both measurements are approximately 11 mm. On extension, anterior offset is approximately 5 mm for both measurements. The other cervical vertebrae are normal in appearance. There is disc space narrowing at C4-C5, C5-C6, and C6-C7 with associated anterior osteophytosis.. PARASPINOUS: Negative. No paraspinous abnormality. OTHER: Negative. CONCLUSION: Odontoid fracture with instability as detailed above. It is of interest to note that the orientation of the odontoid fracture fragment relative to the C2 body demonstrated on this examination is not reflected on either the CT or the MRI performed in the last 2 days. Electronically authenticated by: Ina RUVALCABA Date: 09/09/2022 18:33
[2022-09-09 20:00] VITALS: RESP 14
[2022-09-09] MEDS: PREDNISONE 5 MG TABLET 15 MG PO (20:07)
[2022-09-09 20:20] VITALS: O2SAT 96
[2022-09-09 21:24] VITALS: BP 158/90; PULSE 90; RESP 18; TEMP 36.8; O2SAT 98
[2022-09-10] MEDS: ACETAMINOPHEN 325 MG TABLET 650 MG PO ×2 (02:09→09:27)
[2022-09-10 04:53] LABS: Basophils Percent Auto 0.1 % (0.2-2.0); Hematocrit 38.4 % (36.0-48.0); Hemoglobin 12.4 g/dL (12.0-16.0); Immature Granulocytes Abs Auto 0.09 10^3/uL (0.00-0.03); Immature Granulocytes Pct Auto 0.7 % (0.0-0.5); Lymphocytes Absolute Auto 0.9 10^3/uL (1.2-3.8); Lymphocytes Percent Auto 6.7 % (20.5-60.0); Mean Corpuscular HGB Conc 32.3 g/dL (29.9-35.2); Mean Platelet Volume 9.6 fL (9.5-13.5); Monocytes Absolute Auto 0.9 10^3/uL (0.3-0.8); Monocytes Percent Auto 6.7 % (1.7-12.0); Neutrophils Absolute Auto 11.5 10^3/uL (1.4-6.5); Neutrophils Percent Auto 85.8 % (43.0-75.0); Platelet Count 252 10^3/uL (150-450); Red Cell Distribution Width 14.1 % (11.0-15.0); White Blood Count 13.4 10^3/uL (4.0-11.0)
[2022-09-10 05:14] LABS: Alanine Aminotransferase 26 U/L (14-59); Albumin Globulin Ratio 0.9; Alkaline Phosphatase 69 U/L (46-116); Anion Gap 8.3; Aspartate Amino Transferase 25 U/L (15-37); Bilirubin Total 0.3 mg/dL (0.2-1.0); Calcium 10.1 mg/dL (8.5-10.1); Carbon Dioxide 31.8 mmol/L (21.0-32.0); Chloride 103 mmol/L (98-107); Estimated GFR (African America >60 (>=60); Estimated GFR (Non-African Ame >60 (>=60); Globulin 3.2 g/dL; Glucose 120 mg/dL (74-106); Potassium 4.1 mmol/L (3.5-5.1); Sodium 139 mmol/L (136-145); Total Protein 6.2 g/dL (6.4-8.2)
[2022-09-10 05:16] VITALS: BP 154/95; PULSE 90; RESP 18; TEMP 36.8; O2SAT 98
[2022-09-10 09:18] LABS: INR 0.95; Prothrombin Time 10.1 sec (9.0-11.6)
--- NOTE | 2022-09-10 09:22 | SWNOTE1 ---
[facility] is able to accept once pt is ready for discharge.
[2022-09-10] MEDS: PREDNISONE 5 MG TABLET 10 MG PO (09:25)
[2022-09-10] MEDS: AMLODIPINE BESYLATE 5 MG TABLET PO (09:25)
[2022-09-10] MEDS: ENOXAPARIN SODIUM 40 MG/0.4 ML SYRINGE SUBQ (09:25)
--- NOTE | 2022-09-10 10:18 | CM.NOTE ---
Pt. in C-Collar neck brace, on bedrest. Awaiting Dr. Garcia at [facility] to contact Dr. Alexandre with recommendations. Continue to follow for any change in discharge plan.
--- NOTE | 2022-09-10 11:19 | REH.PTDLY ---
Physical Therapy Daily Note PT Daily Note/Assess Start: 09/09/22 10:48 Freq: Status: Active Protocol: Document 09/10/22 11:15 KENDRA (Rec: 09/10/22 11:19 KENDRA [id number]) Physical Therapy Daily Note/Assessment Time In 10:38 Time Out 10:47 Pain N/A Pain N/A Subjective Pt now in soft collar and waiting to hear what neurosurgeon has to say. Pt is on bedrest, supine exs only per doctor. Therapeutic Exercise Minutes (minutes) 9 Therapeutic Exercise Units 1 Therapeutic Exercise Treatment Instructed in B LE supine exs 10x ea for strength and mobility of legs. Exs included , AP, QS, GS, heel slides, abd slides, SLR. Total Therapy Minutes 9 Total Physical Therapy Units 1 Daily Note Summary Limited rx due to bedrest orders. Supine AROM exs only until further instruction on what the plan is for pt's neck .
[2022-09-10] MEDS: TRAMADOL HCL 50 MG TABLET PO (11:46)
[2022-09-10 12:01] VITALS: O2SAT 99
--- NOTE | 2022-09-10 12:01 | RESP.RT ---
Wears 3L at home
[2022-09-10 13:13] VITALS: BP 158/79; PULSE 91; RESP 18; TEMP 37.2; O2SAT 97
--- NOTE | 2022-09-10 13:28 | PM.DS1 ---
DS: Providers Provider Date of admission: 09/08/22 21:48 Primary care physician: Dennis Og DO Admitting clinician: Sofia Alexandre Consults: 09/06/22 08:38 Occupational Therapy Eval and Treat Routine Physical Therapy Eval and Treat Routine Attending physician on discharge: Sofia Alexandre DS: Diagnosis Discharge Diagnosis (1) Odontoid fracture: Assessment and plan: patient had a CT scan of the neck, MRI of the neck, After obtaining the results from patient's MRI of the cervical spine today showing a remote, nondisplaced C2 dens fracture I called for a phone consult by Neurosurgeon Dr. Moises Garcia of [facility]. He instructed me to get X-ray 5 views and check for Dens stability/instability. I called and also updated her son, Branden on the plan and results of MRI. The X-ray results were sent to me from the floor nurse at 1900 last night and I informed Dr. Garcia of the results as well. The X-ray did show some instability of the odontoid to C2. Dr. Garcia recommendation was for soft C-collar and to keep the patient on bedrest transfer to [facility] for further surgical evaluation. Patient will be transferred today under care of Dr. 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 DS: Summary Time Spent with Patient Time attestation: Total time spent providing and/or coordinating discharge services: Exam Narrative Exam Narrative: General: Patient is alert, and oriented to person, place and time with normal affect, proper hygiene Skin: multiple ecchymosis on the upper extremities Head: atraumatic, acephalic Eyes: PERRLA, no nystagmus present, conjunctiva clear, no scleral icterus Ears: normal gross auditory acuity Nose: symmetric, no discharge, no maxillary or frontal sinus tenderness Mouth/Throat: no erythema, exudate, or tonsillar enlargement, normal dentition Neck: no masses palpated, normal thyroid, no JVD or audible carotid bruits Heart: Normal rate and rhythm, no murmurs/rubs/gallops Lungs: no audible wheezes, crackles and normal breath sounds all lung mcnally Abdomen: Normal audible bowel sounds, no distension, No palpable masses, no organomegaly, no rebound/guarding/ or rigidity Musculoskeletal: ROM is limited due to being in hospital bed but 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, and patient will not abduct the right shoulder, no swelling bilateral lower extremities Lymph: no supraclavicular, axillary, or anterior/posterior cervical adenopathy Neuro: CN II-X grossly intact Constitutional Vital Signs - 24 hr 09/09/22 13:56 09/09/22 20:00 09/09/22 20:20 Temperature 97.8 F Pulse Rate 100 H Respiratory Rate 20 14 Blood Pressure [Left Arm] Blood Pressure [Right Arm] 151/95 H Pulse Oximetry 96 Oxygen Delivery Method Nasal Cannula Nasal Cannula Oxygen Delivery Flow Rate 3 3 09/09/22 21:24 09/10/22 05:16 09/10/22 12:01 Temperature 98.3 F 98.3 F Pulse Rate 90 90 Respiratory Rate 18 18 Blood Pressure [Left Arm] 158/90 H 154/95 H Blood Pressure [Right Arm] Pulse Oximetry 98 98 99 Oxygen Delivery Method Nasal Cannula Nasal Cannula Nasal Cannula Oxygen Delivery Flow Rate 3 3 3 09/10/22 13:13 Temperature 98.9 F Pulse Rate 91 H Respiratory Rate 18 Blood Pressure [Left Arm] Blood Pressure [Right Arm] 158/79 H Pulse Oximetry 97 Oxygen Delivery Method Nasal Cannula Oxygen Delivery Flow Rate 3 DS: Data Data Completed and Pending Labs on day of discharge: Labs from last 24 hours 09/10/22 09/10/22 08:40 04:10 WBC 13.4 H RBC 4.00 L Hgb 12.4 Hct 38.4 MCV 96.0 MCH 31.0 MCHC 32.3 RDW 14.1 Plt Count 252 MPV 9.6 Neut % (Auto) 85.8 H Lymph % (Auto) 6.7 L [place] % (Auto) 6.7 Eos % (Auto) 0.0 L Baso % (Auto) 0.1 L Neut # (Auto) 11.5 H Lymph # (Auto) 0.9 L [place] # (Auto) 0.9 H Eos # (Auto) 0.0 Baso # (Auto) 0.0 Abs Immat Gran (auto) 0.09 H Imm/Tot Granulo (auto) 0.7 H PT 10.1 INR 0.95 APTT 20.0 L Sodium 139 Potassium 4.1 Chloride 103 Carbon Dioxide 31.8 Anion Gap 8.3 BUN 15.0 Creatinine 0.50 L Est GFR ( Amer) >60 Est GFR (Non-Af Amer) >60 BUN/Creatinine Ratio 30.0 Glucose 120 H Calcium 10.1 Total Bilirubin 0.3 AST 25 ALT 26 Alkaline Phosphatase 69 Total Protein 6.2 L Albumin 3.0 L Globulin 3.2 Albumin/Globulin Ratio 0.9 Discharge Plan Discharge Disposition: Xfer Acute Care Hospital Condition: Good Activity Restrictions/Additional Instructions: bed rest/C-collar
== END 2022-09-10 17:25 | disposition short-term general hospital (02) | DRG 551 ==
LOC: ER 09-06 00:40 → MS 09-06 08:48
PROVIDERS: Nurse Practitioner Family; Admitting Provider Family Medicine; Emergency Provider Emergency Medicine; PCP Internal Medicine; Visit Provider Family Medicine
DX: S12.112A Nondisplaced Type II dens fracture, initial encounter for closed fracture (principal); J18.9 Pneumonia, unspecified organism; J44.0 Chronic obstructive pulmonary disease with (acute) lower respiratory infection; J44.1 Chronic obstructive pulmonary disease with (acute) exacerbation; R53.1 Weakness; M06.9 Rheumatoid arthritis, unspecified; U09.9 Post COVID-19 condition, unspecified; R51.9 Headache, unspecified; I10 Essential (primary) hypertension; Z87.891 Personal history of nicotine dependence; W18.30XA Fall on same level, unspecified, initial encounter; Z91.81 History of falling; Z99.81 Dependence on supplemental oxygen; Z79.891 Long term (current) use of opiate analgesic; Z79.52 Long term (current) use of systemic steroids; Z79.899 Other long term (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 therapy
CPT/HCPCS: 36415; 71045; 71260; 72050; 72125; 72156; 80053; 80061; 81003; 83036; 83880; 84484; 85025; 85610; 85652; 85730; 86140; 93005; 94761; 96365; 96366; 96367; 96372; 96375; 96376; 97110; 97161; 97165; 97530; 99285; A9575; G0378; J0456; J2920; Q9967

== ENCOUNTER 2023-01-14 01:01 | Outpatient (REF) | payer MEDICARE, MEDICAID, SELFPAY ==
[2023-01-15 17:07] LABS: Free Kappa Lt Chains,S 11.2 mg/L (3.3-19.4); Free Lambda Lt Chains,S 5.8 mg/L (5.7-26.3); Kappa/Lambda Ratio,S 1.93 (0.26-1.65)
== END 2023-01-14 01:02 | disposition home or self-care (01) ==
LOC: LAB 01:01
PROVIDERS: PCP Internal Medicine; Visit Provider Internal Medicine
DX: G35 Multiple sclerosis (principal); J44.9 Chronic obstructive pulmonary disease, unspecified; Z51.81 Encounter for therapeutic drug level monitoring; Z79.899 Other long term (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 therapy; I10 Essential (primary) hypertension; M06.9 Rheumatoid arthritis, unspecified
CPT/HCPCS: 36415; 80053; 82607; 82728; 83521; 84155; 84165; 84443

== ENCOUNTER 2023-01-23 12:46 | Inpatient (IN) | payer MEDICARE, MEDICAID, SELFPAY ==
[2023-01-23] VITALS (29 sets, daily range): BP systolic 117–158; BP diastolic 78–100; PULSE 84–111; RESP 18–43; TEMP 36.4–36.6; O2SAT 90–94; BMI 28.3; BMI 28.0
--- NOTE | 2023-01-23 12:52 | ECG_ITS ---
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: : 1955 Requested By: BHUMIKA DONAHUE Order Number: [id number] Reading MD: NEENA PATRICIO Measurements Intervals [place] Rate: 106 P: 8 ID: 120 QRS: -17 QRSD: 76 T: 10 QT: 350 QTc: 412 Interpretive Statements 1120 Sinus tachycardia 2420 RSR (QR) in lead V1/V2, consistent with right ventricular conduction delay 3114 Cannot rule out anterior myocardial infarction, age undetermined 3634 Inferior myocardial infarction, age undetermined 5222 Moderate voltage criteria for LVH, may be normal variant 9150 abnormal ECG Compared to ECG 09/05/2022 19:33:17 Myocardial infarct finding now present Left ventricular hypertrophy now present Electronically Signed On 01-28-2023 6:54:04 EST by NEENA PATRICIO
--- NOTE | 2023-01-23 12:59 | ED_ITS ---
HPI - Chest Pain General Chief Complaint: Chest Pain Stated Complaint: CHEST PAIN Time Seen by Provider: 01/23/23 12:52 Source: patient Mode of arrival: ambulance Limitations: no limitations History of Present Illness HPI narrative: The patient coming to the ER sent to us from [facility] after she was evaluated for chest pain the patient had a cervical fracture surgery done at the end of August she mentioned that the pain left upper chest not radiating, and it has been going on at least for 2 weeks, the patient is having left-sided upper chest pain that is continuous. She did mention that since she had the surgery she has not been active because of that No cough no difficulty breathing The patient mentioned that the pain was stabbing and 9 out of 10 initially but she was provided with nitroglycerin as well as aspirin before arrival Related Data Home Medications Medication Instructions Recorded Confirmed levofloxacin 500 mg tablet 500 mg PO Q24H 09/03/22 09/06/22 prednisone 10 mg tablet See Rx Instructions PO Q12H 09/03/22 09/09/22 tramadol 50 mg tablet 50 mg PO Q8H PRN pain 09/03/22 09/09/22 amlodipine 2.5 mg tablet 5 mg PO DAILY 09/06/22 01/23/23 fexofenadine 180 mg tablet 180 mg PO DAILY 09/09/22 09/09/22 ([facility]) acetaminophen 500 mg capsule 1,000 mg PO BID PRN pain 01/23/23 01/23/23 albuterol sulfate 2.5 mg/3 mL 2.5 mg continuous nebulization Q4H 01/23/23 01/23/23 (0.083 %) solution for nebulization PRN shortness of breath or wheezing cholecalciferol (vitamin D3) 50 50 mcg PO DAILY 01/23/23 01/23/23 mcg (2,000 unit) capsule cyanocobalamin (vitamin B-12) 1,000 mcg PO .every thu01/23/23 01/23/23 1,000 mcg capsule omeprazole 20 mg capsule,delayed 20 mg PO DAILY 01/23/23 01/23/23 release prednisone 5 mg tablet 5 mg PO TID 01/23/23 01/23/23 Previous Rx's Medication Instructions Recorded tramadol 50 mg tablet 50 mg PO Q8H PRN pain 5 days #14 09/06/22 tabs Allergies Allergy/AdvReac Type Severity Reaction Status Date / Time No Known Drug Allergies Allergy Verified 09/03/22 17:18 Review of Systems ROS Status of ROS 10 or more systems reviewed and unremarkable except as noted in history and below [facility] Medical History (Updated 01/23/23 @ 15:42 by Anette Damon MD) COVID ?U07.1 - COVID-19 (ICD-10) Pelvic fracture ?S32.9XXA - Fracture of unspecified parts of lumbosacral spine and pelvis, initial encounter for closed fracture (ICD-10) Pneumonitis ?J18.9 - Pneumonia, unspecified organism (ICD-10) Sepsis ?A41.9 - Sepsis, unspecified organism (ICD-10) Surgical History (Updated 01/23/23 @ 17:31 by Preethi Neal) H/O cervical spine surgery ?Z98.890 - Other specified postprocedural states (ICD-10) History of arthroplasty of right ankle ?Z98.890 - Other specified postprocedural states (ICD-10) Family History (Updated 01/23/23 @ 17:33 by Preethi Neal) Mother Family history of CHF (congestive heart failure) Family history of hypertension Family history of myocardial infarction Father Family history of hypertension Family history of myocardial infarction Grandfather Family history of hypertension Family history of myocardial infarction Grandmother Family history of hypertension Family history of myocardial infarction Social History Within the past year, how often did you have a drink containing alcohol: never Score interpretation: A score less than 3 is consistent with normal alcohol consumption. Smoking status: Former smoker Non-prescribed substance use: denies use Known occupational exposures/hazards: No Highest level of school completed/degree received: high school graduate In a typical week, how many times do you talk on the telephone with family, friends, or neighbors: 3 or more times per week How often do you get together with friends or relatives: 3 or more times per week Little interest or pleasure in doing things: not at all Feeling down, depressed, or hopeless: not at all Feel stressed/tense/nervous/anxious/difficulty sleeping: not at all Do you think of yourself as: straight/heterosexual Gender Identity: female Exam Narrative Exam Narrative: Nurses notes and vital signs reviewed and patient is not hypoxic. General: Well-appearing and in no apparent distress. Skin: Warm, dry, no pallor noted. No rash. Head: Normocephalic, atraumatic. Neck: Supple, non-tender. Eye: Pupils are equal, round and EOMI. No scleral icterus. Ears, Nose, Mouth, and Throat: TM are clear, no nasal mucosal hypertrophy. Oral mucosa is moist, no posterior oropharynx erythema, uvula is mid-line Cardiovascular: Regular Rate and Rhythm without murmur, gallop or rub. Respiratory: No accessory muscle use or respiratory distress. Lungs decreased air entry bibasilarly Chest Wall: no tenderness Back: No midline thoracic or lumbar vertebral tenderness. No CVA tenderness Musculoskeletal: normal ROM, no calf or popliteal tenderness, no lower extremity edema/swelling GI: Abdomen is soft, non-distended. Normal bowel sounds. No masses appreciated. No tenderness to palpation. No rebound, guarding, or rigidity noted. Neurological: A&O x4. No cranial nerve dysfunction observed. No truncal ataxia. Moves all extremities. Sensation intact. Psychiatric: Cooperative and interactive. Normal mood and affect. Constitutional Vital Signs, click to edit/add: Last Vital Signs Temp 97.9 F 01/24/23 03:54 Pulse 100 H 01/24/23 06:00 Resp 18 01/24/23 03:54 BP 156/82 H 01/24/23 03:54 Pulse Ox 91 L 01/24/23 03:54 O2 Del Method Room Air 01/24/23 03:54 Course Vital Signs Vital signs: Vital Signs Blood Pressure 119/78 01/23/23 12:50 Temperature 97.9 F 01/24/23 03:54 Pulse Rate 100 H 01/24/23 06:00 Respiratory Rate 18 01/24/23 03:54 Blood Pressure 156/82 H 01/24/23 03:54 Pulse Oximetry 91 L 01/24/23 03:54 Oxygen Delivery Method Room Air 01/24/23 03:54 MDM - Chest Pain MDM Narrative Medical decision making narrative: The patient EKG showing sinus rhythm with a heart rate of [address] elevation or depression CBC was showing mild leukocytosis with a chemistry showing no acute pathology and the troponin is negative D-dimer was elevated and with the patient history of 2 weeks of pain there was a high suspicion for possible PE CT angio of the chest showed that the patient have no PE but she does have some chronic or possibly acute on chronic infiltrate in the left side of the lung pt case discussed with Dr Foss and she will be admitted for chest pain and pneumonia management pt takes Levofloxacin daily since 07/2022 Lab Data Labs: Lab Results 01/23/23 Range/Units 13:20 WBC 11.9 H (4.0-11.0) 10^3/uL RBC 4.57 (4.20-5.40) 10^6/uL Hgb 14.2 (12.0-16.0) g/dL Hct 44.0 (36.0-48.0) % MCV 96.3 (81.0-99.0) fL MCH 31.1 (26.7-34.0) pg MCHC 32.3 (29.9-35.2) g/dL RDW 14.1 (11.0-15.0) % Plt Count 135 L (150-450) 10^3/uL MPV 9.7 (9.5-13.5) fL Neut % (Auto) 87.4 H (43.0-75.0) % Lymph % (Auto) 6.6 L (20.5-60.0) % [place] % (Auto) 3.2 (1.7-12.0) % Eos % (Auto) 0.0 L (0.9-7.0) % Baso % (Auto) 0.3 (0.2-2.0) % Neut # (Auto) 10.4 H (1.4-6.5) 10^3/uL Lymph # (Auto) 0.8 L (1.2-3.8) 10^3/uL [place] # (Auto) 0.4 (0.3-0.8) 10^3/uL Eos # (Auto) 0.0 (0.0-0.7) 10^3/uL Baso # (Auto) 0.0 (0.0-0.1) 10^3/uL Abs Immat Gran (auto) 0.30 H (0.00-0.03) 10^3/uL Imm/Tot Granulo (auto) 2.5 H (0.0-0.5) % PT 10.6 (9.0-11.6) sec INR 1.00 D-Dimer 2.20 H* (<=0.59) mg/L FEU Sodium 136 (136-145) mmol/L Potassium 3.6 (3.5-5.1) mmol/L Chloride 102 (98-107) mmol/L Carbon Dioxide 25.4 (21.0-32.0) mmol/L Anion Gap 12.2 BUN 15.0 (7.0-18.0) mg/dL Creatinine 0.67 (0.55-1.02) mg/dL Est GFR ( Amer) >60 (>=60) Est GFR (Non-Af Amer) >60 (>=60) BUN/Creatinine Ratio 22.4 Glucose 137 H (74-106) mg/dL Calcium 9.9 (8.5-10.1) mg/dL Total Bilirubin 0.4 (0.2-1.0) mg/dL AST 35 (15-37) U/L ALT 55 (14-59) U/L Alkaline Phosphatase 98 (46-116) U/L Troponin I High Sens 17.6 (4.0-51.3) pg/mL Total Protein 6.4 (6.4-8.2) g/dL Albumin 3.2 L (3.4-5.0) g/dL Globulin 3.2 g/dL Albumin/Globulin Ratio 1.0 Discharge Plan Discharge Chief Complaint: Chest Pain Clinical Impression: Chest pain, Pneumonia Patient Disposition: Admitted As Inpatient Time of Disposition Decision: 15:42 Condition: Good Discharge Date/Time: 01/23/23 16:23
--- NOTE | 2023-01-23 13:12 | XR_ITS ---
The [address] [address] Patient Name: ORTEGA MARX MRN: [id number] date: 1955 Sex: F Assigned Patient Location: ER Current Patient Location: ER Accession/Order Number: [id number] Exam Date: 01/23/2023 13:05 Report Date: 01/23/2023 13:37 At the request of: PALOMA GRECO Procedure: XR chest 1V EXAM: XR chest 1V at 1306 hours HISTORY: cp COMPARISON: 09/05/2022 TECHNIQUE: AP upright portable chest x-ray FINDINGS: This study is somewhat limited by the patient's body habitus. There is ill-defined diffuse opacity throughout the left hemithorax, which may indicate overlying soft tissues or possibly an effusion. The right lung is clear, without evidence of a focal infiltrate. There is no evidence of a pneumothorax. The heart appears mildly enlarged with prominence of the central pulmonary vasculature. The osseous structures are grossly intact. XR/XR chest 1V IMPRESSION: Diffuse opacity is seen involving the left hemithorax. An underlying infiltrate or effusion is difficult to exclude and may present. The right lung remains clear. The overall appearance of the chest has probably not changed significantly, with improved depth of inspiration in the current study. Electronically authenticated by: BRIANNA QUINONES Date: 01/23/2023 13:37
[2023-01-23] MEDS: MORPHINE SULFATE 2 MG/ML SYRINGE IV (13:22)
[2023-01-23 13:31] LABS: Basophils Percent Auto 0.3 % (0.2-2.0); Hemoglobin 14.2 g/dL (12.0-16.0); Immature Granulocytes Pct Auto 2.5 % (0.0-0.5); Lymphocytes Absolute Auto 0.8 10^3/uL (1.2-3.8); Lymphocytes Percent Auto 6.6 % (20.5-60.0); Mean Corpuscular HGB Conc 32.3 g/dL (29.9-35.2); Mean Corpuscular Hemoglobin 31.1 pg (26.7-34.0); Mean Corpuscular Volume 96.3 fL (81.0-99.0); Mean Platelet Volume 9.7 fL (9.5-13.5); Monocytes Absolute Auto 0.4 10^3/uL (0.3-0.8); Monocytes Percent Auto 3.2 % (1.7-12.0); Neutrophils Absolute Auto 10.4 10^3/uL (1.4-6.5); Neutrophils Percent Auto 87.4 % (43.0-75.0); Platelet Count 135 10^3/uL (150-450); Red Blood Count 4.57 10^6/uL (4.20-5.40); Red Cell Distribution Width 14.1 % (11.0-15.0); White Blood Count 11.9 10^3/uL (4.0-11.0)
[2023-01-23 13:46] LABS: Prothrombin Time 10.6 sec (9.0-11.6)
[2023-01-23 13:48] LABS: Alanine Aminotransferase 55 U/L (14-59); Albumin Level 3.2 g/dL (3.4-5.0); Alkaline Phosphatase 98 U/L (46-116); Anion Gap 12.2; Aspartate Amino Transferase 35 U/L (15-37); BUN Creatinine Ratio 22.4; Bilirubin Total 0.4 mg/dL (0.2-1.0); Calcium 9.9 mg/dL (8.5-10.1); Carbon Dioxide 25.4 mmol/L (21.0-32.0); Chloride 102 mmol/L (98-107); Estimated GFR (African America >60 (>=60); Estimated GFR (Non-African Ame >60 (>=60); Globulin 3.2 g/dL; Glucose 137 mg/dL (74-106); Potassium 3.6 mmol/L (3.5-5.1); Sodium 136 mmol/L (136-145); Total Protein 6.4 g/dL (6.4-8.2); Troponin I High Sensitivity 17.6 pg/mL (4.0-51.3)
--- NOTE | 2023-01-23 14:03 | CT_ITS ---
[address] [address] Patient Name: ORTEGA MARX MRN: [id number] date: 1955 Sex: F Assigned Patient Location: ER Current Patient Location: Accession/Order Number: [id number] Exam Date: 01/23/2023 14:28 Report Date: 01/23/2023 15:20 At the request of: PALOMA GRECO Procedure: CT angio chest CTA CHEST. INDICATION: Pulmonary embolism. COMPARISON: 09/05/2022 TECHNIQUE: CT pulmonary angiogram. Initially, limited axial non-contrast images through chest obtained to establish proper bolus timing. Subsequently, contrast enhanced axial CT images were obtained through the chest. Axial, sagittal and coronal reformatted maximum intensity projection images and / or 3D volume rendered images created. FINDINGS: PULMONARY ARTERIES: No intraluminal filling defects within the central or segmental pulmonary arteries to suggest pulmonary embolism.. Normal RV:LV ratio (<1). AORTA: The thoracic aorta diameter is normal without aneurysm or dissection. LUNGS: There is mild chronic interstitial thickening and subpleural cystic changes. No airspace disease. No pleural effusions.. No pneumothorax. LYMPH NODES: No enlarged mediastinal lymph nodes by CT criteria. HEART: Cardiomegaly. No pericardial effusion. There is mediastinal lipomatosis. UPPER ABDOMEN: Cirrhotic liver. MUSCULOSKELETAL: No acute osseous abnormality. CT/CT angio chest IMPRESSION: 1. No pulmonary thromboembolic disease. No aortic aneurysm or dissection. 2. Findings are suggestive of mild chronic interstitial lung disease. Superimposed acute infection/inflammation not excluded. Electronically authenticated by: ANNELISE MORALES Date: 01/23/2023 15:20
[2023-01-23] MEDS: KETOROLAC TROMETHAMINE 30 MG/ML VIAL 15 MG IVP (14:42)
[2023-01-23] MEDS: FAMOTIDINE/PF 20 MG/2 ML VIAL IV (14:42)
[2023-01-23] MEDS: DOXYCYCLINE HYCLATE 100 MG in 0.9 % SODIUM CHLORIDE 100 ML IV (16:14)
--- NOTE | 2023-01-23 20:17 | RESP.RT ---
No PRN breathing tx given. Pt denies need. No respiratory distress noted. Pt made aware to call if needed.
[2023-01-23] MEDS: ENOXAPARIN SODIUM 40 MG/0.4 ML SYRINGE SUBQ (21:15)
[2023-01-23] MEDS: METHYLPREDNISOLONE SOD SUCC PF 125 MG/2 ML VIAL 60 MG IVP (21:16)
--- NOTE | 2023-01-23 21:38 | PC.NURSE ---
RN tried to administer IV antibiotics and medications per physicians order. The patient had pulled her IV out and no longer has IV access. There is a doctor order to place midline if the patient had no IV access. Multiple nurses have tried to get IV access on this patient, however, she continues to pull them out. Access was called and information given to try to see if we could get midline access tonight. RN waiting for a call back as to when they can come place the line.
[2023-01-23] MEDS: CEFTRIAXONE 1,000 MG in 0.9 % SODIUM CHLORIDE 50 ML 100 MG IV (23:43)
[2023-01-24] VITALS (13 sets, daily range): BP systolic 122–156; BP diastolic 70–96; PULSE 78–102; RESP 16–18; TEMP 36.6–36.8; O2SAT 91–93
[2023-01-24] MEDS: AZITHROMYCIN 500 MG in 0.9 % SODIUM CHLORIDE 250 ML 250 MG IV (00:52)
[2023-01-24] MEDS: METHYLPREDNISOLONE SOD SUCC PF 125 MG/2 ML VIAL 60 MG IVP (02:13)
[2023-01-24 05:39] LABS: Alanine Aminotransferase 55 U/L (14-59); Albumin Globulin Ratio 1.1; Albumin Level 3.1 g/dL (3.4-5.0); Alkaline Phosphatase 95 U/L (46-116); Aspartate Amino Transferase 43 U/L (15-37); BUN Creatinine Ratio 36.4; Bilirubin Total 0.5 mg/dL (0.2-1.0); Calcium 9.8 mg/dL (8.5-10.1); Carbon Dioxide 24.7 mmol/L (21.0-32.0); Chloride 105 mmol/L (98-107); Estimated GFR (African America >60 (>=60); Estimated GFR (Non-African Ame >60 (>=60); Globulin 2.8 g/dL; Glucose 106 mg/dL (74-106); Potassium 3.7 mmol/L (3.5-5.1); Sodium 139 mmol/L (136-145); Total Protein 5.9 g/dL (6.4-8.2)
[2023-01-24] MEDS: OMEPRAZOLE 20 MG CAPSULE.DR PO (06:09)
[2023-01-24] MEDS: AMLODIPINE BESYLATE 5 MG TABLET PO (09:59)
[2023-01-24] MEDS: CHOLECALCIFEROL (VITAMIN D3) 25 MCG/1,000 UNITS TABLET 50 MCG PO (09:59)
--- NOTE | 2023-01-24 11:13 | PT.DAILY ---
Physical Therapy Daily Note PT Daily Note/Assess Start: 01/24/23 11:11 Freq: Status: Active Protocol: Document 01/24/23 11:11 LINDA (Rec: 01/24/23 11:12 LORRAINERADHA [id number]) Physical Therapy Daily Note/Assessment Time In/Time Out Time In 10:25 Time Out 10:38 Pain In Pain N/A Pain Out Pain N/A Subjective Subjective Supine upon arrival .agrees to PT. Therapeutic Exercise Time Therapeutic Exercise Minutes (minutes) 3 Therapeutic Exercise Units 0 Therapeutic Exercise Treatment Therapeutic Exercise Treatment Seated AP, LAQ and marches ( small range) 10x ea Therapeutic Activity Time Therapeutic Activity Minutes (minutes) 8 Therapeutic Activity Units 1 Therapeutic Activity Treatment Bed Mobility Ability Moderate Assist Therapeutic Activity Comments Pt requires ModA to reach sitting from supine - for both LEs and upper body. Once sitting EOB pt able to maintain static sitting balance unsupported for nearly 8 min. While sitting EOB pt performs seated LE ex 10x ea without LOB. Pt also attempts to help scoot her hips up towards head of bed - unable to does move hands and legs appropriately but is lacking strength. Pt requires ModA to transfer from sit>supine for upper body and legs. Pt Unable to assist to help scoot up bed - total assist for this. Pt remains supine with HOB elevated, pillow under legs and call light in reach. Total Physical Therapy Time Total Therapy Minutes 11 Total Physical Therapy Units 1 Summary Daily Note Summary Improve static and dynamic sitting balance today.
[2023-01-24 12:12] LABS: SARS-CoV-2 Ag NEGATIVE (NEGATIVE)
--- NOTE | 2023-01-24 13:49 | PM.HP ---
H&P: HPI History of Present Illness Chief complaint: left sided chest pain Narrative: 67 y o female, currently living in senior care presented last night with persistent left sided chest pain, associated shortness of breath, feeling weak, tired and dry cough. Patient on chronically on oral Levaquin for prior hx of prosthetic joint infection for over 2 years now. She also had recent cervical neck surgery in 09/12 for cervical fracture and since then she has been in senior care. Patient is bed bound, can stand briefly. Her w/u in ED was c/w possible left sided pneumonia and she was started on IV rocephin/Azithromycin. She was also treated with systemic steroids for CODP exacerbation. She does not have a formal diagnosis of COPD. She reports feeling better today but continues to feel left sided chest pressure/pain. No overnight events. Review of Systems ROS Status of ROS 10 or more systems reviewed and unremarkable except as noted in history and below [facility] Medical History (Updated 01/24/23 @ 13:57 by Shaikh Nilsa MD) Bedbound ?Z74.01 - Bed confinement status (ICD-10) COVID ?U07.1 - COVID-19 (ICD-10) Hypertension ?I10 - Essential (primary) hypertension (ICD-10) Odontoid fracture ?S12.110A - Anterior displaced Type II dens fracture, initial encounter for closed fracture (ICD-10) Pelvic fracture ?S32.9XXA - Fracture of unspecified parts of lumbosacral spine and pelvis, initial encounter for closed fracture (ICD-10) Pneumonitis ?J18.9 - Pneumonia, unspecified organism (ICD-10) Rheumatoid arthritis ?M06.9 - Rheumatoid arthritis, unspecified (ICD-10) Right hemiparesis ?G81.91 - Hemiplegia, unspecified affecting right dominant side (ICD-10) Sepsis ?A41.9 - Sepsis, unspecified organism (ICD-10) Surgical History (Updated 01/23/23 @ 17:31 by Preethi Neal) H/O cervical spine surgery ?Z98.890 - Other specified postprocedural states (ICD-10) History of arthroplasty of right ankle ?Z98.890 - Other specified postprocedural states (ICD-10) Family History (Updated 01/23/23 @ 17:33 by Preethi Neal) Mother Family history of CHF (congestive heart failure) Family history of hypertension Family history of myocardial infarction Father Family history of hypertension Family history of myocardial infarction Grandfather Family history of hypertension Family history of myocardial infarction Grandmother Family history of hypertension Family history of myocardial infarction Social History Within the past year, how often did you have a drink containing alcohol: never Score interpretation: A score less than 3 is consistent with normal alcohol consumption. Smoking status: Former smoker Non-prescribed substance use: denies use Known occupational exposures/hazards: No Highest level of school completed/degree received: high school graduate In a typical week, how many times do you talk on the telephone with family, friends, or neighbors: 3 or more times per week How often do you get together with friends or relatives: 3 or more times per week Little interest or pleasure in doing things: not at all Feeling down, depressed, or hopeless: not at all Feel stressed/tense/nervous/anxious/difficulty sleeping: not at all Do you think of yourself as: straight/heterosexual Gender Identity: female Meds Home Medications and Allergies Home Medications Medication Instructions Recorded Confirmed Type levofloxacin 500 mg tablet 500 mg PO Q24H 09/03/22 09/06/22 History prednisone 10 mg tablet See Rx Instructions PO Q12H 09/03/22 09/09/22 History tramadol 50 mg tablet 50 mg PO Q8H PRN pain 09/03/22 09/09/22 History amlodipine 2.5 mg tablet 5 mg PO DAILY 09/06/22 01/23/23 History tramadol 50 mg tablet 50 mg PO Q8H PRN pain 5 days #14 09/06/22 Rx tabs fexofenadine 180 mg tablet 180 mg PO DAILY 09/09/22 09/09/22 History ([facility] All[facility]) acetaminophen 500 mg capsule 1,000 mg PO BID PRN pain 01/23/23 01/23/23 History albuterol sulfate 2.5 mg/3 mL 2.5 mg continuous nebulization Q4H 01/23/23 01/23/23 History (0.083 %) solution for nebulization PRN shortness of breath or wheezing cholecalciferol (vitamin D3) 50 50 mcg PO DAILY 01/23/23 01/23/23 History mcg (2,000 unit) capsule cyanocobalamin (vitamin B-12) 1,000 mcg PO .every thu01/23/23 01/23/23 History 1,000 mcg capsule omeprazole 20 mg capsule,delayed 20 mg PO DAILY 01/23/23 01/23/23 History release prednisone 5 mg tablet 5 mg PO TID 01/23/23 01/23/23 History Allergies Allergy/AdvReac Type Severity Reaction Status Date / Time No Known Drug Allergies Allergy Verified 09/03/22 17:18 Exam Constitutional Vital Signs, click to edit/add: Last Vital Signs Temp 97.9 F 01/24/23 03:54 Pulse 96 H 01/24/23 12:00 Resp 18 01/24/23 03:54 BP 156/82 H 01/24/23 03:54 Pulse Ox 91 L 01/24/23 03:54 O2 Del Method Room Air 01/24/23 03:54 Documenting provider has reviewed patient's vital signs: yes Common normals: no apparent distress and oriented x3 General appearance: cooperative HENMT Common normals: normocephalic and head/scalp atraumatic Head and scalp: normocephalic and atraumatic Eye Common normals: conjunctivae normal and no scleral icterus Conjunctiva: conjunctiva(e) normal Chest Other: Tenderness to palpation left side of chest. Respiratory Common normals: normal respiratory effort and clear to auscultation bilaterally Effort & inspection: able to speak in complete sentences Auscultation: clear to auscultation bilaterally Cardio Common normals: regular rate, S1 normal heart sound and S2 normal heart sound Rate: regular rate Heart sounds: S1 normal and S2 normal GI Common normals: Normal to inspection, nondistended, normoactive bowel sounds present, soft to palpation, non-tender and no hepatosplenomegaly Palpation: soft and no hepatosplenomegaly Extremity Common normals: no clubbing, cyanosis or edema Neuro Common normals: oriented x3 and moves all extremities Other: right UE 4/5, RLE 4/5 Psych Common normals: mental status grossly normal, denies hallucinations, denies homicidal ideation and denies suicidal ideation Results Labs Labs: BMP 01/23/23 01/24/23 13:20 04:40 Sodium 136 139 Potassium 3.6 3.7 Chloride 102 105 Carbon Dioxide 25.4 24.7 BUN 15.0 16.0 Creatinine 0.67 0.44 L Glucose 137 H 106 Calcium 9.9 9.8 Liver Function 01/23/23 01/24/23 Range/Units 13:20 04:40 Total Bilirubin 0.4 0.5 (0.2-1.0) mg/dL AST 35 43 H (15-37) U/L ALT 55 55 (14-59) U/L Alkaline Phosphatase 98 95 (46-116) U/L Albumin 3.2 L 3.1 L (3.4-5.0) g/dL Assessment and Plan Assessment and Plan (1) Chest pain: Assessment and Plan: Trop x 2 negative. No sig changes on EKG Pleuritic pain likely due to PNA. Order 2D ECHO to assess cardiac structure. Qualifiers: Chest pain type: precordial pain Qualified Code(s): R07.2 - Precordial pain (2) Pneumonia: Assessment and Plan: Left lung pneumonia. Will treat as hospital acquired pneumonia due to hospital admission, current prison antibiotic use and senior care residence. Started on IV vancomycin/zosyn. D/c rocephin/azithromycin. F/u cultures. Qualifiers: Pneumonia type: due to unspecified organism Laterality: left Lung location: unspecified part of lung Qualified Code(s): J18.9 - Pneumonia, unspecified organism (3) Hypertension: Assessment and Plan: C/w amlodipine. Qualifiers: Hypertension type: primary hypertension Qualified Code(s): I10 - Essential (primary) hypertension (4) Rheumatoid arthritis: Assessment and Plan: Stable. Outpatient f/u Qualifiers: Rheumatoid arthritis location: multiple sites Rheumatoid factor presence: with rheumatoid factor Qualified Code(s): M05.79 - Rheumatoid arthritis with rheumatoid factor of multiple sites without organ or systems involvement (5) Right hemiparesis: Assessment and Plan: Slowly improving with PT/OT. Monitor. (6) Odontoid fracture: Assessment and Plan: s/p surgery 09/12 Qualifiers: Encounter type: sequela Fracture type: closed Qualified Code(s): S12.100S - Unspecified displaced fracture of second cervical vertebra, sequela Plan C/w Abx, PT eval and rx. Monitor closely.
[2023-01-24] MEDS: PIPERACILLIN SODIUM/TAZOBACTAM 3.375 GM in 0.9 % SODIUM CHLORIDE 50 ML IV ×2 (13:55→20:52)
[2023-01-24] MEDS: 0.9 % SODIUM CHLORIDE 250 ML 10 ML IV (13:56)
[2023-01-24 14:06] LABS: SARS-CoV-2 NAA NOT DETECTED (NOT DETECTE)
[2023-01-24] MEDS: IPRATROPIUM/ALBUTEROL SULFATE 3 ML AMPUL.NEB IH (16:29)
[2023-01-24] MEDS: VANCOMYCIN HCL 1,250 MG in 0.9 % SODIUM CHLORIDE 250 ML 250 MG IV (17:36)
[2023-01-24] MEDS: ENOXAPARIN SODIUM 40 MG/0.4 ML SYRINGE SUBQ (20:52)
--- NOTE | 2023-01-24 22:34 | RESP.RT ---
HHN not given at this time. Pt sleeping and does not want to be woken up for breathing tx.
[2023-01-25] VITALS (8 sets, daily range): BP systolic 119–151; BP diastolic 69–87; PULSE 81–103; RESP 18; TEMP 36.6; O2SAT 84–92
[2023-01-25] MEDS: VANCOMYCIN HCL 1,250 MG in 0.9 % SODIUM CHLORIDE 250 ML 250 MG IV ×2 (03:30→16:07)
[2023-01-25] MEDS: PIPERACILLIN SODIUM/TAZOBACTAM 3.375 GM in 0.9 % SODIUM CHLORIDE 50 ML IV ×3 (04:19→20:06)
[2023-01-25 05:44] LABS: Alanine Aminotransferase 55 U/L (14-59); Albumin Globulin Ratio 1.1; Albumin Level 2.8 g/dL (3.4-5.0); Alkaline Phosphatase 85 U/L (46-116); Aspartate Amino Transferase 33 U/L (15-37); Bilirubin Total 0.4 mg/dL (0.2-1.0); Calcium 9.9 mg/dL (8.5-10.1); Carbon Dioxide 28.2 mmol/L (21.0-32.0); Chloride 107 mmol/L (98-107); Estimated GFR (African America >60 (>=60); Estimated GFR (Non-African Ame >60 (>=60); Globulin 2.6 g/dL; Glucose 126 mg/dL (74-106); Potassium 3.2 mmol/L (3.5-5.1); Sodium 140 mmol/L (136-145); Total Protein 5.4 g/dL (6.4-8.2)
[2023-01-25] MEDS: POTASSIUM CHLORIDE 10 MEQ ER TABLET 40 MEQ PO (08:33)
[2023-01-25] MEDS: AMLODIPINE BESYLATE 5 MG TABLET PO (08:33)
[2023-01-25] MEDS: CHOLECALCIFEROL (VITAMIN D3) 25 MCG/1,000 UNITS TABLET 50 MCG PO (08:33)
[2023-01-25] MEDS: ALBUTEROL SULFATE 2.5 MG/3 ML VIAL NEB CNTNEBULIZ (09:57)
--- NOTE | 2023-01-25 12:46 | PM.IMPN1 ---
Progress Note: A&P Assessment and Plan (1) Chest pain: Assessment and Plan: likely due to PNA. Pleuritic in nature. Improved from before. Qualifiers: Chest pain type: precordial pain Qualified Code(s): R07.2 - Precordial pain (2) Pneumonia: Assessment and Plan: On vancomycin and zosyn for presumed hospital acquired PNA. Feels better except for mild MARSHALL. Qualifiers: Laterality: left Lung location: unspecified part of lung Pneumonia type: due to unspecified organism Qualified Code(s): J18.9 - Pneumonia, unspecified organism (3) Hypertension: Assessment and Plan: Stable. C/w home regimen Qualifiers: Hypertension type: primary hypertension Qualified Code(s): I10 - Essential (primary) hypertension (4) Rheumatoid arthritis: Assessment and Plan: Outpatient f/u Qualifiers: Rheumatoid arthritis location: multiple sites Rheumatoid factor presence: with rheumatoid factor Qualified Code(s): M05.79 - Rheumatoid arthritis with rheumatoid factor of multiple sites without organ or systems involvement (5) Right hemiparesis: Assessment and Plan: Stable, unchanged. PT/OT eval (6) Odontoid fracture: Assessment and Plan: s/p surgery at cervical spine 09/12. Qualifiers: Encounter type: sequela Fracture type: closed Qualified Code(s): S12.100S - Unspecified displaced fracture of second cervical vertebra, sequela Internal Medicine - PN: Subj Subjective Interval history: Seen and examined. Doing well. No overnight events. Continues to experience dyspnea that has improved from before. Exam Constitutional Vital Signs, click to edit/add: Last Vital Signs Temp 98 F 01/25/23 05:52 Pulse 89 01/25/23 09:57 Resp 18 01/25/23 05:52 BP 126/69 01/25/23 05:52 Pulse Ox 90 L 01/25/23 10:00 O2 Del Method Room Air 01/25/23 10:00 Documenting provider has reviewed patient's vital signs: yes Common normals: no apparent distress and oriented x3 General appearance: cooperative HENMT Common normals: normocephalic and head/scalp atraumatic Head and scalp: normocephalic and atraumatic Eye Common normals: conjunctivae normal and no scleral icterus Conjunctiva: conjunctiva(e) normal Chest Other: Tenderness to palpation left side of chest. Respiratory Common normals: normal respiratory effort and clear to auscultation bilaterally Effort & inspection: able to speak in complete sentences Auscultation: clear to auscultation bilaterally Cardio Common normals: regular rate, S1 normal heart sound and S2 normal heart sound Rate: regular rate Heart sounds: S1 normal and S2 normal GI Common normals: Normal to inspection, nondistended, normoactive bowel sounds present, soft to palpation, non-tender and no hepatosplenomegaly Palpation: soft and no hepatosplenomegaly Neuro Common normals: oriented x3 and moves all extremities Other: right UE 4/5, RLE 4/5 Psych Common normals: mental status grossly normal, denies hallucinations, denies homicidal ideation and denies suicidal ideation Internal Medicine - PN: Obj Da Labs Labs: Laboratory Results - last 24 hr 01/24/23 01/25/23 11:52 04:22 Sodium 140 Potassium 3.2 L Chloride 107 Carbon Dioxide 28.2 Anion Gap 8.0 BUN 21.0 H Creatinine 0.60 Est GFR ( Amer) >60 Est GFR (Non-Af Amer) >60 BUN/Creatinine Ratio 35.0 Glucose 126 H Calcium 9.9 Total Bilirubin 0.4 AST 33 ALT 55 Alkaline Phosphatase 85 Total Protein 5.4 L Albumin 2.8 L Globulin 2.6 Albumin/Globulin Ratio 1.1 SARS-CoV-2 RNA (GLYNN) Not detected
[2023-01-25] MEDS: 0.9 % SODIUM CHLORIDE 250 ML 10 ML IV (14:08)
[2023-01-25] MEDS: TRAMADOL HCL 50 MG TABLET PO ×2 (14:09→22:06)
[2023-01-25] MEDS: ENOXAPARIN SODIUM 40 MG/0.4 ML SYRINGE SUBQ (20:06)
[2023-01-25] MEDS: ACETAMINOPHEN 500 MG TABLET 1000 MG PO (22:06)
--- NOTE | 2023-01-25 22:50 | RESP.RT ---
No HHN given. Pt sleeping and does not want to be woken up for breathing tx.
[2023-01-26 03:16] LABS: Basophils Percent Auto 0.4 % (0.2-2.0); Eosinophils Percent Auto 0.3 % (0.9-7.0); Hematocrit 40.1 % (36.0-48.0); Hemoglobin 12.5 g/dL (12.0-16.0); Immature Granulocytes Abs Auto 0.37 10^3/uL (0.00-0.03); Immature Granulocytes Pct Auto 4.1 % (0.0-0.5); Lymphocytes Absolute Auto 1.3 10^3/uL (1.2-3.8); Lymphocytes Percent Auto 14.1 % (20.5-60.0); Mean Corpuscular HGB Conc 31.2 g/dL (29.9-35.2); Mean Corpuscular Hemoglobin 31.2 pg (26.7-34.0); Mean Platelet Volume 9.6 fL (9.5-13.5); Monocytes Absolute Auto 0.5 10^3/uL (0.3-0.8); Monocytes Percent Auto 5.5 % (1.7-12.0); Neutrophils Absolute Auto 6.9 10^3/uL (1.4-6.5); Neutrophils Percent Auto 75.6 % (43.0-75.0); Platelet Count 108 10^3/uL (150-450); Red Blood Count 4.01 10^6/uL (4.20-5.40); Red Cell Distribution Width 14.7 % (11.0-15.0); White Blood Count 9.1 10^3/uL (4.0-11.0)
[2023-01-26 03:21] VITALS: BP 136/89; PULSE 93; TEMP 36.6; O2SAT 91
[2023-01-26 03:32] LABS: Alanine Aminotransferase 44 U/L (14-59); Albumin Level 2.7 g/dL (3.4-5.0); Alkaline Phosphatase 90 U/L (46-116); Anion Gap 9.2; Aspartate Amino Transferase 36 U/L (15-37); BUN Creatinine Ratio 21.7; Bilirubin Total 0.5 mg/dL (0.2-1.0); Calcium 9.6 mg/dL (8.5-10.1); Carbon Dioxide 27.6 mmol/L (21.0-32.0); Chloride 107 mmol/L (98-107); Estimated GFR (African America >60 (>=60); Estimated GFR (Non-African Ame >60 (>=60); Globulin 2.7 g/dL; Glucose 84 mg/dL (74-106); Potassium 3.8 mmol/L (3.5-5.1); Sodium 140 mmol/L (136-145); Total Protein 5.4 g/dL (6.4-8.2)
[2023-01-26] MEDS: VANCOMYCIN HCL 1,250 MG in 0.9 % SODIUM CHLORIDE 250 ML 250 MG IV (03:41)
[2023-01-26] MEDS: OMEPRAZOLE 20 MG CAPSULE.DR PO (03:46)
[2023-01-26] MEDS: PIPERACILLIN SODIUM/TAZOBACTAM 3.375 GM in 0.9 % SODIUM CHLORIDE 50 ML IV ×3 (04:53→20:11)
[2023-01-26 07:00] VITALS: BP 136/79; PULSE 90; RESP 20; TEMP 36.4; O2SAT 94
[2023-01-26] MEDS: AMLODIPINE BESYLATE 5 MG TABLET PO (09:16)
[2023-01-26] MEDS: CHOLECALCIFEROL (VITAMIN D3) 25 MCG/1,000 UNITS TABLET 50 MCG PO (09:16)
[2023-01-26] MEDS: TRAMADOL HCL 50 MG TABLET PO (09:44)
--- NOTE | 2023-01-26 10:05 | CM.NOTE ---
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 Pt is Maykel lift or slide board to transfer to chair. Pt is out of skilled days for therapy and is at her baseline.
--- NOTE | 2023-01-26 10:06 | CM.NOTE ---
Talked with pt about discharge plan, pt states Im not going back to [facility]. I want intense therapy, discussed with pt about skilled days under Medicare. Pt states if skilled is not covered she would still like to go to a different nursing facility. Pt voices she is not happy with the care she is receiving at [facility]. Pt then talks about going back home. Pt states she lives alone and would not have anyone to assist at home or be able to afford 24 hour caregivers. Pt given a list of other nursing homes per her request. Called back over to [facility] and left message for Modesta to call me back to clarify again if pt remains a resident at their facility.
--- NOTE | 2023-01-26 10:44 | PT.DAILY ---
Physical Therapy Daily Note PT Daily Note/Assess Start: 01/24/23 11:11 Freq: Status: Active Protocol: Document 01/26/23 10:11 LINDA (Rec: 01/26/23 10:44 LINDA [id number]) Physical Therapy Daily Note/Assessment Time In/Time Out Time In 09:45 Time Out 10:05 Pain In Pain N/A Pain Out Pain N/A Subjective Subjective Pt supine upon arrival. Agrees to PT. Reports having some chest pain and a headache and states nursing is aware. Therapeutic Exercise Time Therapeutic Exercise Minutes (minutes) 5 Therapeutic Exercise Units 0 Therapeutic Exercise Treatment Therapeutic Exercise Treatment Bilat seated LE strengthening ex complete while sitting EOB - AP, LAQ, add squeezes and lateral side shifts 10x ea. Needs occ Clyde to maintain seated balance at EOB. Therapeutic Activity Time Therapeutic Activity Minutes (minutes) 10 Therapeutic Activity Units 1 Therapeutic Activity Treatment Bed Mobility Ability Moderate Assist Therapeutic Activity Comments Supine>sit ModA segmental transfer with advancing LEs first then assist with upper body. Sits EOB 8 min with occ Clyde due to posterior lean ( 3x throughout 8 min). While sitting EOB pt performs seated LE strengthening and core engagement ex. Denies change in pain with sitting. Returned to supine with MaxA and total assist to scoot pt up in bed. Remains supine with call light in reach and needs met. Total Physical Therapy Time Total Therapy Minutes 15 Total Physical Therapy Units 1 Summary Daily Note Summary Needs occ support with static/ dynamic sitting today. Would benefit from SNF to regain strength, balance and tolerance to activity.
--- NOTE | 2023-01-26 10:47 | XR_ITS ---
[address] [address] Patient Name: ORTEGA MARX MRN: [id number] date: 1955 Sex: F Assigned Patient Location: [place] Current Patient Location: Accession/Order Number: [id number] Exam Date: 01/26/2023 12:05 Report Date: 01/26/2023 13:24 At the request of: SHAIKH JACQUELINE Procedure: XR chest 1V EXAM: XR chest 1V HISTORY: SOB COMPARISON: 01/23/2023 TECHNIQUE: Chest X-ray AP, 1 view FINDINGS: Support devices: None. Lungs/pleura: No pneumothorax. Interval increase in left lung hazy opacity, may represent groundglass attenuation. No definite consolidation. Heart and mediastinum: Cardiomegaly. Bones: No acute abnormality identified. XR/XR chest 1V Impression: Cardiomegaly. Interval increase in left lung hazy opacity, may represent groundglass attenuation. No definite consolidation. Electronically authenticated by: JAE STORY Date: 01/26/2023 13:24
--- NOTE | 2023-01-26 10:47 | PM.IMPN1 ---
Progress Note: A&P Assessment and Plan (1) Chest pain: Assessment and Plan: likely due to PNA. Pleuritic in nature. Reports worsening pain today. Repeat CXR. Qualifiers: Chest pain type: precordial pain Qualified Code(s): R07.2 - Precordial pain (2) Pneumonia: Assessment and Plan: On vancomycin and zosyn for presumed hospital acquired PNA. Was doing well but hypoxic overnight with pulse Ox in 84. Comfortable on 2 L O via NC but reports worsening left sided chest wall pain. Repeat XR ordered. Qualifiers: Laterality: left Lung location: unspecified part of lung Pneumonia type: due to unspecified organism Qualified Code(s): J18.9 - Pneumonia, unspecified organism (3) Hypertension: Assessment and Plan: Stable. C/w home regimen Qualifiers: Hypertension type: primary hypertension Qualified Code(s): I10 - Essential (primary) hypertension (4) Rheumatoid arthritis: Assessment and Plan: Outpatient f/u Qualifiers: Rheumatoid arthritis location: multiple sites Rheumatoid factor presence: with rheumatoid factor Qualified Code(s): M05.79 - Rheumatoid arthritis with rheumatoid factor of multiple sites without organ or systems involvement (5) Right hemiparesis: Assessment and Plan: Stable, unchanged. PT/OT eval (6) Odontoid fracture: Assessment and Plan: s/p surgery at cervical spine 09/12. Qualifiers: Encounter type: sequela Fracture type: closed Qualified Code(s): S12.100S - Unspecified displaced fracture of second cervical vertebra, sequela (7) D-dimer, elevated: Assessment and Plan: No evidence of PE on CTA. Internal Medicine - PN: Subj Subjective Interval history: Seen and examined. Hypoxic overnight. On 2 L O2 via NC. Reports worsening left sided chest wall pain today. 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 She would prefer she goes for [facility] care at somewhere else. Exam Constitutional Vital Signs, click to edit/add: Last Vital Signs Temp 97.6 F 01/26/23 07:00 Pulse 90 01/26/23 07:00 Resp 20 01/26/23 07:00 BP 136/79 01/26/23 07:00 Pulse Ox 94 L 01/26/23 07:00 O2 Del Method Nasal Cannula 01/26/23 07:00 O2 Flow Rate 2 01/26/23 07:00 Documenting provider has reviewed patient's vital signs: yes Common normals: no apparent distress and oriented x3 General appearance: cooperative HENMT Common normals: normocephalic and head/scalp atraumatic Head and scalp: normocephalic and atraumatic Eye Common normals: conjunctivae normal and no scleral icterus Conjunctiva: conjunctiva(e) normal Chest Other: Tenderness to palpation left side of chest. Respiratory Common normals: normal respiratory effort and clear to auscultation bilaterally Effort & inspection: able to speak in complete sentences Auscultation: clear to auscultation bilaterally Cardio Common normals: regular rate, S1 normal heart sound and S2 normal heart sound Rate: regular rate Heart sounds: S1 normal and S2 normal Neuro Common normals: oriented x3 and moves all extremities Other: right UE 4/5, RLE 4/5 Psych Common normals: mental status grossly normal, denies hallucinations, denies homicidal ideation and denies suicidal ideation Internal Medicine - PN: Obj Da Labs Labs: Laboratory Results - last 24 hr 01/26/23 03:02 WBC 9.1 RBC 4.01 L Hgb 12.5 Hct 40.1 MCV 100.0 H MCH 31.2 MCHC 31.2 RDW 14.7 Plt Count 108 L MPV 9.6 Neut % (Auto) 75.6 H Lymph % (Auto) 14.1 L [place] % (Auto) 5.5 Eos % (Auto) 0.3 L Baso % (Auto) 0.4 Neut # (Auto) 6.9 H Lymph # (Auto) 1.3 [place] # (Auto) 0.5 Eos # (Auto) 0.0 Baso # (Auto) 0.0 Abs Immat Gran (auto) 0.37 H Imm/Tot Granulo (auto) 4.1 H Sodium 140 Potassium 3.8 Chloride 107 Carbon Dioxide 27.6 Anion Gap 9.2 BUN 15.0 Creatinine 0.69 Est GFR ( Amer) >60 Est GFR (Non-Af Amer) >60 BUN/Creatinine Ratio 21.7 Glucose 84 Calcium 9.6 Total Bilirubin 0.5 AST 36 ALT 44 Alkaline Phosphatase 90 Total Protein 5.4 L Albumin 2.7 L Globulin 2.7 Albumin/Globulin Ratio 1.0
[2023-01-26] MEDS: ONDANSETRON PF 4 MG/2 ML VIAL IV (11:21)
[2023-01-26 11:26] VITALS: O2SAT 95
--- NOTE | 2023-01-26 11:54 | CM.NOTE ---
Rounds made with Dr. Ash. Currently Miriam does not want to return to [facility]. Dr. Ash discussed will check other facilities for availability and go from there.
--- NOTE | 2023-01-26 13:12 | CM.NOTE ---
Talked with [facility] at the [facility] regarding long-term bed for pt. Pt does not want to return to [facility] at this time. [facility] unable to take pt at this time, will discuss with pt her second option for [facility].
[2023-01-26 14:00] VITALS: BP 111/74; PULSE 93; RESP 18; TEMP 36.6; O2SAT 92
--- NOTE | 2023-01-26 14:10 | CM.NOTE ---
Pt's second choice was [facility] and they do not have any Medicaid beds available at this time. 3rd choice is [facility], talked with admissions and faxed information to [phone] and awaiting call back. Update given to pt.
[2023-01-26 16:17] LABS: Vancomycin Trough 27.5 ug/mL (5.0-20.0)
--- NOTE | 2023-01-26 16:36 | CM.NOTE ---
Level of Care faxed to office of Aging for Level of Care. [facility] is able to accept pt 01/27/23. They will get PASSAR from [facility]. Updated pt that [facility] will accept her at discharge.
--- NOTE | 2023-01-26 16:54 | CM.NOTE ---
Called [facility] to get PASSAR to send to office of Aging for Level of Care. Once received from [facility] Case Management will send to office of Aging.
[2023-01-26 19:06] VITALS: O2SAT 92
[2023-01-26 19:23] VITALS: BP 126/71; PULSE 88; RESP 18; TEMP 36.4; O2SAT 91
[2023-01-26] MEDS: ENOXAPARIN SODIUM 40 MG/0.4 ML SYRINGE SUBQ (20:11)
[2023-01-26] MEDS: VANCOMYCIN HCL 1,000 MG in 0.9 % SODIUM CHLORIDE 250 ML 250 MG IV (23:42)
[2023-01-27 04:03] VITALS: BP 136/80; PULSE 100; RESP 18; TEMP 36.6; O2SAT 92
[2023-01-27] MEDS: PIPERACILLIN SODIUM/TAZOBACTAM 3.375 GM in 0.9 % SODIUM CHLORIDE 50 ML IV (04:26)
[2023-01-27] MEDS: OMEPRAZOLE 20 MG CAPSULE.DR PO (04:26)
[2023-01-27 06:01] LABS: Basophils Absolute Auto 0.1 10^3/uL (0.0-0.1); Basophils Percent Auto 0.5 % (0.2-2.0); Eosinophils Absolute Auto 0.1 10^3/uL (0.0-0.7); Eosinophils Percent Auto 1.2 % (0.9-7.0); Hematocrit 39.1 % (36.0-48.0); Hemoglobin 12.2 g/dL (12.0-16.0); Immature Granulocytes Abs Auto 0.36 10^3/uL (0.00-0.03); Immature Granulocytes Pct Auto 3.3 % (0.0-0.5); Lymphocytes Absolute Auto 1.4 10^3/uL (1.2-3.8); Lymphocytes Percent Auto 12.3 % (20.5-60.0); Mean Corpuscular HGB Conc 31.2 g/dL (29.9-35.2); Mean Corpuscular Hemoglobin 31.1 pg (26.7-34.0); Mean Corpuscular Volume 99.7 fL (81.0-99.0); Mean Platelet Volume 10.3 fL (9.5-13.5); Monocytes Absolute Auto 0.7 10^3/uL (0.3-0.8); Monocytes Percent Auto 5.9 % (1.7-12.0); Neutrophils Absolute Auto 8.5 10^3/uL (1.4-6.5); Neutrophils Percent Auto 76.8 % (43.0-75.0); Platelet Count 120 10^3/uL (150-450); Red Blood Count 3.92 10^6/uL (4.20-5.40)
[2023-01-27 06:17] LABS: Alanine Aminotransferase 48 U/L (14-59); Albumin Globulin Ratio 0.9; Albumin Level 2.5 g/dL (3.4-5.0); Alkaline Phosphatase 101 U/L (46-116); Anion Gap 12.4; Aspartate Amino Transferase 33 U/L (15-37); Bilirubin Total 0.8 mg/dL (0.2-1.0); Calcium 9.2 mg/dL (8.5-10.1); Carbon Dioxide 26.5 mmol/L (21.0-32.0); Chloride 105 mmol/L (98-107); Estimated GFR (African America >60 (>=60); Estimated GFR (Non-African Ame >60 (>=60); Globulin 2.9 g/dL; Glucose 62 mg/dL (74-106); Sodium 141 mmol/L (136-145); Total Protein 5.4 g/dL (6.4-8.2)
[2023-01-27 06:23] LABS: Potassium 2.9 mmol/L (3.5-5.1)
[2023-01-27 08:00] VITALS: RESP 16
[2023-01-27] MEDS: POTASSIUM CHLORIDE 40 MEQ in 0.9 % SODIUM CHLORIDE 250 ML 67.5 MEQ IV (08:38)
[2023-01-27] MEDS: CHOLECALCIFEROL (VITAMIN D3) 25 MCG/1,000 UNITS TABLET 50 MCG PO (08:45)
[2023-01-27 08:47] VITALS: BP 126/71
[2023-01-27] MEDS: POTASSIUM CHLORIDE 10 MEQ ER TABLET 40 MEQ PO (08:47)
[2023-01-27] MEDS: AMLODIPINE BESYLATE 5 MG TABLET PO (08:47)
--- NOTE | 2023-01-27 08:55 | CM.NOTE ---
Received message from nursing to speak with pt about discharge. Pt was set up to go to [place], [place] and was wishing to go back to [facility]. Discussion with pt this AM, pt thoughts were she would be going to [facility] in [place], [place]. Discussed with pt again about [facility] care vs rehab or skilled therapy. Pt very tearful. Pt states It's just hard for me to accept all of this. I want to be able to return to my home. Discussed with pt about 24 hour nursing care at home and out of pocket cost. Pt verbalizes understanding and wishes to just return to [facility]. Listened to pt and her fears and provided support and encouragement. Pt very thankful of our assistance. Called Modesta at [facility] and they are able to take pt back [facility] care. Called Office on Aging to cancel the level of care for [facility] and return pt back to [facility]. Called Barbara from [facility] to let her know pt has changed her mind about transferring facilities.
--- NOTE | 2023-01-27 11:10 | P.DS_ITS ---
DS: Providers Provider Date of admission: 01/23/23 16:23 Primary care physician: Dennis Og DO Consults: 01/23/23 17:33 Occupational Therapy Eval and Treat Routine Reason for consultation: Weakness Physical Therapy Eval and Treat Routine Reason for consultation: Weakness 01/24/23 11:31 Occupational Therapy Eval and Treat Routine Reason for consultation: weakness Physical Therapy Eval and Treat Routine Reason for consultation: weakness Attending physician on discharge: Shaikh Nilsa Discharging clinician: Shaikh Nilsa Anticipated date of discharge: 01/27/23 DS: Diagnosis Discharge Diagnosis (1) Chest pain: Assessment and plan: likely pleuritic, resolved. Qualifiers: Chest pain type: precordial pain Qualified Code(s): R07.2 - Precordial pain (2) Pneumonia: Assessment and plan: Left Pneumonia, doing better. Wll d/c on oral Doxycycline. Qualifiers: Laterality: left Lung location: unspecified part of lung Pneumonia type: due to unspecified organism Qualified Code(s): J18.9 - Pneumonia, unspecified organism (3) Hypertension: Assessment and plan: Stable. No changes Qualifiers: Hypertension type: primary hypertension Qualified Code(s): I10 - Essential (primary) hypertension (4) Rheumatoid arthritis: Assessment and plan: on Prednisone as outpatient Qualifiers: Rheumatoid arthritis location: multiple sites Rheumatoid factor presence: with rheumatoid factor Qualified Code(s): M05.79 - Rheumatoid arthritis with rheumatoid factor of multiple sites without organ or systems involvement (5) Right hemiparesis: Assessment and plan: Chronic, unchanged. (6) Odontoid fracture: Assessment and plan: s/p surgery. Qualifiers: Encounter type: sequela Fracture type: closed Qualified Code(s): S12.100S - Unspecified displaced fracture of second cervical vertebra, sequela (7) D-dimer, elevated: Assessment and plan: No PE on CTA. DS: Summary Hospital Course Hospital Course: 67 y o female, presented with persistent left sided chest pain, associated shortness of breath, feeling weak, tired and dry cough. Patient on chronically on oral Levaquin for prior hx of prosthetic joint infection for over 2 years now. She is also on Prednisone chronically. W/u indicated leukocytosis, elevated d dimer, left sided Pneumonia on CTA for which she was started on broad spectrum because of abx use, immunosuppression from chronic prednisone use and frequent/recurrent hospital admissions. She improved clinically during the course of hospital admission and is stable for d/c on oral abx. Cultures negative. Negative for COVID. She intermittently needed O2 during hospital stay at night. Doing well today and has no complaints to offer. Will d/c on oral Doxycycline Will need f/u with PCP in one week. She also had recent cervical neck surgery in 09/12 for cervical fracture and since then she has been in assisted. Patient is bed bound, can stand briefly. Her w/u in ED was c/w possible left sided pneumonia and she was started on IV rocephin/Azithromycin. She was also treated with systemic steroids for CODP exacerbation. She does not have a formal diagnosis of COPD. She reports feeling better today but continues to feel left sided chest pressure/pain. No overnight events Status at Discharge Functional status at discharge: bed bound Overall status at discharge: patient is progressing back to baseline Time Spent with Patient Time attestation: Total time spent providing and/or coordinating discharge services: Time spent: greater than 30 minutes Exam Constitutional Vital Signs, click to edit/add: Last Vital Signs Temp 97.8 F 01/27/23 04:03 Pulse 100 H 01/27/23 04:03 Resp 16 01/27/23 08:00 BP 126/71 01/27/23 08:47 Pulse Ox 92 L 01/27/23 04:03 O2 Del Method Nasal Cannula 01/27/23 04:03 O2 Flow Rate 2 01/27/23 04:03 Documenting provider has reviewed patient's vital signs: yes Common normals: no apparent distress and oriented x3 General appearance: cooperative Respiratory Common normals: normal respiratory effort and clear to auscultation bilaterally Effort & inspection: able to speak in complete sentences Auscultation: clear to auscultation bilaterally Cardio Common normals: regular rate, S1 normal heart sound and S2 normal heart sound Rate: regular rate Heart sounds: S1 normal and S2 normal Neuro Common normals: oriented x3 and moves all extremities Other: right UE 4/5, RLE 4/5 Psych Common normals: mental status grossly normal, denies hallucinations, denies homicidal ideation and denies suicidal ideation DS: Data Data Completed and Pending Labs on day of discharge: Labs from last 24 hours 01/27/23 01/26/23 04:25 15:17 WBC 11.0 RBC 3.92 L Hgb 12.2 Hct 39.1 MCV 99.7 H MCH 31.1 MCHC 31.2 RDW 15.0 Plt Count 120 L MPV 10.3 Neut % (Auto) 76.8 H Lymph % (Auto) 12.3 L Surry % (Auto) 5.9 Eos % (Auto) 1.2 Baso % (Auto) 0.5 Neut # (Auto) 8.5 H Lymph # (Auto) 1.4 Surry # (Auto) 0.7 Eos # (Auto) 0.1 Baso # (Auto) 0.1 Abs Immat Gran (auto) 0.36 H Imm/Tot Granulo (auto) 3.3 H Sodium 141 Potassium 2.9 L* Chloride 105 Carbon Dioxide 26.5 Anion Gap 12.4 BUN 9.0 Creatinine 0.60 Est GFR ( Amer) >60 Est GFR (Non-Af Amer) >60 BUN/Creatinine Ratio 15.0 Glucose 62 L Calcium 9.2 Total Bilirubin 0.8 AST 33 ALT 48 Alkaline Phosphatase 101 Total Protein 5.4 L Albumin 2.5 L Globulin 2.9 Albumin/Globulin Ratio 0.9 Vancomycin Trough 27.5 H* Preliminary micro results at discharge 01/23/23 16:06 - Preliminary Blood 01/23/23 16:00 Blood Culture Result 1 - Preliminary Blood Discharge Plan Discharge Disposition: Xfer LT Condition: Good Discharge Medications: New doxycycline monohydrate 100 mg tablet 100 mg PO BID 3 Days Qty: 6 0RF Continued prednisone 10 mg tablet See Rx Instructions PO Q12H Rx Instructions: TAKE 1 TABLET BY MOUTH EVERY MORNING AND ONE-HALF TABLET BY MOUTH IN THE EVENING orally every 12 hours; tramadol 50 mg tablet 50 mg PO Q8H PRN (Reason: pain) Patient Comments: X5 DAYS STARTED 09/06/22 levofloxacin 500 mg tablet 500 mg PO Q24H tramadol 50 mg tablet 50 mg PO Q8H PRN (Reason: pain) 5 Days Qty: 14 0RF amlodipine 2.5 mg tablet 5 mg PO DAILY fexofenadine [Smitha Allergy] 180 mg tablet 180 mg PO DAILY cholecalciferol (vitamin D3) 50 mcg (2,000 unit) capsule 50 mcg PO DAILY cyanocobalamin (vitamin B-12) 1,000 mcg capsule 1,000 mcg PO .every wed omeprazole 20 mg capsule,delayed release(DR/EC) 20 mg PO DAILY acetaminophen 500 mg capsule 1,000 mg PO BID PRN (Reason: pain) prednisone 5 mg tablet 5 mg PO TID albuterol sulfate 2.5 mg /3 mL (0.083 %) solution for nebulization 2.5 mg continuous nebulization Q4H PRN (Reason: shortness of breath or wheezing) Forms: Portal Instructions Follow Up Appointments: F/u PCP in one week
--- NOTE | 2023-01-27 12:00 | CM.NOTE ---
Faxed discharge summary and med list to [facility], junior legal secretary on Med-Surg setting up transport for pt.
--- NOTE | 2023-01-27 12:05 | PT.DAILY ---
Physical Therapy Daily Note PT Daily Note/Assess Start: 01/24/23 11:11 Freq: Status: Active Protocol: Document 01/27/23 12:04 LINDA (Rec: 01/27/23 12:05 LINDA [id number]) Visit Not Completed Visit Not Completed Visit Not Completed Due to: Pt refusing,Other Other Reason Visit Not Completed Very tired. Can barely keep eyes open. Refuses PT at this time. [facility]. Physical Therapy Daily Note/Assessment Time In/Time Out Time In 11:56 Time Out 11:56 Pain In Pain N/A Pain Out Pain N/A GG. Functional Abilities and Goals-Complete for Swing Bed Patients Only [id number]. Self-Care [id number]. Mobility
--- NOTE | 2023-01-27 12:40 | CM.NOTE ---
Rounding with Dr. Ash this AM and patient is now wanting to return to [facility]. [employer] insurance case manager getting everything arranged and likely discharge today.
--- NOTE | 2023-01-27 12:52 | CM.NOTE ---
Important Message from Medicare reviewed with Miriam. Verbalizes no questions. Copy to chart and copy to Miriam.
== END 2023-01-27 13:44 | DRG 194 ==
LOC: ER 15:42 → MS 16:28
PROVIDERS: Family Medicine; Admitting Provider Internal Medicine; Emergency Provider Emergency Medicine; PCP Internal Medicine; Visit Provider Internal Medicine
DX: J18.9 Pneumonia, unspecified organism (principal); D84.821 Immunodeficiency due to drugs; G81.91 Hemiplegia, unspecified affecting right dominant side; R07.2 Precordial pain; I10 Essential (primary) hypertension; M05.79 Rheumatoid arthritis with rheumatoid factor of multiple sites without organ or systems involvement; R79.89 Other specified abnormal findings of blood chemistry; S12.100S Unspecified displaced fracture of second cervical vertebra, sequela; T84.50XS Infection and inflammatory reaction due to unspecified internal joint prosthesis, sequela; Z79.2 Long term (current) use of antibiotics; Z79.52 Long term (current) use of systemic steroids; Z79.891 Long term (current) use of opiate analgesic; Z79.899 Other long term (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 therapy; Z98.890 Other specified postprocedural states; Z87.891 Personal history of nicotine dependence; Z86.16 Personal history of COVID-19; Z87.81 Personal history of (healed) traumatic fracture; Z82.49 Family history of ischemic heart disease and other diseases of the circulatory system; Z74.01 Bed confinement status
CPT/HCPCS: 36410; 36415; 36592; 71045; 71275; 80053; 80202; 84484; 85025; 85378; 85610; 87040; 87635; 87811; 93005; 94640; 94761; 96365; 96366; 96367; 96368; 96372; 96375; 96376; 97110; 97162; 97165; 97530; 97535; 99285; C1887; J0456; J2930; J3370; J3480; Q9967

== ENCOUNTER 2023-02-09 14:26 | Outpatient (OUT) | payer MEDICARE, MEDICAID, SELFPAY ==
--- NOTE | 2023-02-09 14:46 | MR_ITS ---
The [address] [address] Patient Name: ORTEGA MARX MRN: [id number] date: 1955 Sex: F Assigned Patient Location: MRI Current Patient Location: MRI Accession/Order Number: [id number] Exam Date: 02/09/2023 15:20 Report Date: 02/09/2023 16:28 At the request of: BHUMIKA DONAHUE Procedure: MR head/brain wo con MR head/brain wo con, 02/09/2023 3:20 PM EST INDICATION: Hemiparesis Of Right Dominant Side G81.91 COMPARISON: CT of the head dated 08/14/2022 and MRI of cervical spine dated 09/09/2022 TECHNIQUE: Multiplanar, multisequential MRI images of brain were obtained without injection of contrast. FINDINGS: The cerebral sulci as well as ventricular system are appropriate for age. There is no restricted diffusion. Hyperintensities on T2 and FLAIR images in the boykin radiata and centrum semiovale with sparing of U fibers are nonspecific, statistically most likely consistent with microvascular ischemic changes. There is no intracranial mass, mass effect, midline shift, intra or extra-axial fluid collection or large hemorrhage. Normal flow-void in the intracranial vessels is noted. The visualized portions of orbits, as well as paranasal sinuses are unremarkable. Nonspecific fluid within the bilateral mastoid air cells is noted, right more than left. There is status post left lens replacement. Type II fracture of odontoid process is again noted. MR/MR head/brain wo con IMPRESSION: No acute intracranial process is noted. Electronically authenticated by: CINTHIA RAMOS Date: 02/09/2023 16:28
== END 2023-02-09 14:27 | disposition home or self-care (01) ==
LOC: MRI 14:27
PROVIDERS: PCP Internal Medicine; Visit Provider Internal Medicine
DX: G81.91 Hemiplegia, unspecified affecting right dominant side (principal)
CPT/HCPCS: 70551

== ENCOUNTER 2023-03-23 10:14 | Inpatient (IN) | payer MEDICARE, MEDICAID, SELFPAY ==
[2023-03-23] VITALS (13 sets, daily range): BP systolic 109–140; BP diastolic 79–96; PULSE 103–109; RESP 18–32; TEMP 36.2–36.6; O2SAT 85–98; BMI 26.9; BMI 27.3
--- NOTE | 2023-03-23 11:19 | XR_ITS ---
The [address] [address] Patient Name: ORTEGA MARX MRN: [id number] date: 1955 Sex: F Assigned Patient Location: ER Current Patient Location: ED.MAIN Accession/Order Number: [id number] Exam Date: 03/23/2023 11:15 Report Date: 03/23/2023 12:47 At the request of: RAMSEY DEVRIES Procedure: XR chest 1V EXAM: XR chest 1V HISTORY: SOB COMPARISON: Chest radiographs from 01/26/2023 TECHNIQUE: AP radiograph of the chest. FINDINGS: Cardiomegaly. Multifocal bilateral airspace opacities left greater than right. No acute osseous abnormality. Osteophytes of the thoracic spine XR/XR chest 1V IMPRESSION: 1. Cardiomegaly with bilateral airspace opacities. Consider atypical infectious process and/or a component of edema. Electronically authenticated by: EVELIA HUIZAR Date: 03/23/2023 12:47
--- NOTE | 2023-03-23 11:19 | ED.SOB1 ---
HPI - SOB/Dyspnea General Chief Complaint: Shortness of Breath/Dyspnea Stated Complaint: GENERAL WEAKNESS Time Seen by Provider: 03/23/23 11:25 Source: patient Mode of arrival: ambulance Limitations: no limitations History of Present Illness HPI Narrative: patient here from a skilled nursing for shortness of breath. Apparently she tested positive for Covid last Thursday. She states that the she was placed on paxlovid, but she contends that sometimes they don't give her her medicines at the skilled nursing at all and it's very frustrating for her. She has a number of medical problems as noted in her previous records. She currently is wearing a soft cervical collar for injury to her upper cervical spine. She said that the local neurology group is referred her to the [facility] and she supposed to get an MRI before she goes up there. She said that normally her pulse ox is in the 90s and today dropped down to seventy-nine so they sent her here to the hospital. She does not have any chest pain. No nausea vomiting or recent fever that she is aware of. She did have severe infection earlier in July with sepsis. Related Data Home Medications Medication Instructions Recorded Confirmed levofloxacin 500 mg tablet 500 mg PO Q24H 09/03/22 09/06/22 prednisone 10 mg tablet See Rx Instructions PO Q12H 09/03/22 09/09/22 tramadol 50 mg tablet 50 mg PO Q8H PRN pain 09/03/22 09/09/22 amlodipine 2.5 mg tablet 5 mg PO DAILY 09/06/22 01/23/23 fexofenadine 180 mg tablet 180 mg PO DAILY 09/09/22 09/09/22 ([facility]) acetaminophen 500 mg capsule 1,000 mg PO BID PRN pain 01/23/23 01/23/23 albuterol sulfate 2.5 mg/3 mL 2.5 mg continuous nebulization Q4H 01/23/23 01/23/23 (0.083 %) solution for nebulization PRN shortness of breath or wheezing cholecalciferol (vitamin D3) 50 50 mcg PO DAILY 01/23/23 01/23/23 mcg (2,000 unit) capsule cyanocobalamin (vitamin B-12) 1,000 mcg PO .every thu01/23/23 01/23/23 1,000 mcg capsule omeprazole 20 mg capsule,delayed 20 mg PO DAILY 01/23/23 01/23/23 release prednisone 5 mg tablet 5 mg PO TID 01/23/23 01/23/23 Previous Rx's Medication Instructions Recorded tramadol 50 mg tablet 50 mg PO Q8H PRN pain 5 days #14 09/06/22 tabs doxycycline monohydrate 100 mg 100 mg PO BID 3 days #6 tabs 01/27/23 tablet Allergies Allergy/AdvReac Type Severity Reaction Status Date / Time No Known Drug Allergies Allergy Verified 09/03/22 17:18 [facility] Medical History (Updated 03/23/23 @ 12:55 by Rocky Gibbons MD) D-dimer, elevated ?R79.89 - Other specified abnormal findings of blood chemistry (ICD-10) Right hemiparesis ?G81.91 - Hemiplegia, unspecified affecting right dominant side (ICD-10) Bedbound ?Z74.01 - Bed confinement status (ICD-10) Pneumonia ?J18.9 - Pneumonia, unspecified organism (ICD-10) Odontoid fracture ?S12.110A - Anterior displaced Type II dens fracture, initial encounter for closed fracture (ICD-10) Pelvic fracture ?S32.9XXA - Fracture of unspecified parts of lumbosacral spine and pelvis, initial encounter for closed fracture (ICD-10) Rheumatoid arthritis ?M06.9 - Rheumatoid arthritis, unspecified (ICD-10) Sepsis ?A41.9 - Sepsis, unspecified organism (ICD-10) COVID ?U07.1 - COVID-19 (ICD-10) Hypertension ?I10 - Essential (primary) hypertension (ICD-10) Pneumonitis ?J18.9 - Pneumonia, unspecified organism (ICD-10) Surgical History (Updated 01/23/23 @ 17:31 by Preethi Neal) H/O cervical spine surgery ?Z98.890 - Other specified postprocedural states (ICD-10) History of arthroplasty of right ankle ?Z98.890 - Other specified postprocedural states (ICD-10) Family History (Updated 01/23/23 @ 17:33 by Preethi Neal) Mother Family history of CHF (congestive heart failure) Family history of hypertension Family history of myocardial infarction Father Family history of hypertension Family history of myocardial infarction Grandfather Family history of hypertension Family history of myocardial infarction Grandmother Family history of hypertension Family history of myocardial infarction Social History Within the past year, how often did you have a drink containing alcohol: never Score interpretation: A score less than 3 is consistent with normal alcohol consumption. Smoking status: Former smoker Non-prescribed substance use: denies use Known occupational exposures/hazards: No Highest level of school completed/degree received: high school graduate In a typical week, how many times do you talk on the telephone with family, friends, or neighbors: 3 or more times per week How often do you get together with friends or relatives: 3 or more times per week Little interest or pleasure in doing things: not at all Feeling down, depressed, or hopeless: not at all Feel stressed/tense/nervous/anxious/difficulty sleeping: not at all Do you think of yourself as: straight/heterosexual Gender Identity: female Exam Narrative Exam Narrative: patient awake alert excellent historian. Vital signs are noted. Her pulse oximetry on a hundred percent nonrebreather breath is ninety-four percent. Pulse is one oh nine. A 12-lead EKG shows sinus rhythm rate seventy-four. She is wearing a cervical collar. She does not have any new neurological complaints or symptoms today. She's not fallen. Examination of chest she does have some wheezing and rhonchi. Heart sounds were normal with no murmur. Examination of her extremities show trace edema of the ankle area. Otherwise bruising is noted throughout both extremities that does not appear acute or new. She has no abdominal pain. Her hydration status appears somewhat dehydrated. Constitutional Vital Signs, click to edit/add: Last Vital Signs Temp 97.9 F 03/23/23 10:50 Pulse 109 H 03/23/23 10:50 Resp 18 03/23/23 10:50 BP 109/82 03/23/23 10:50 Pulse Ox 93 L 03/23/23 12:03 O2 Del Method Nonrebreather 03/23/23 12:03 O2 Flow Rate 15 03/23/23 12:03 Course Vital Signs Vital signs: Vital Signs Temperature 97.9 F 03/23/23 10:50 Pulse Rate 109 H 03/23/23 10:50 Respiratory Rate 18 03/23/23 10:50 Blood Pressure 109/82 03/23/23 10:50 Pulse Oximetry 95 03/23/23 10:50 Oxygen Delivery Method Nonrebreather 03/23/23 10:50 Oxygen Delivery Flow Rate 15 03/23/23 10:50 Temperature 97.9 F 03/23/23 10:50 Pulse Rate 109 H 03/23/23 10:50 Respiratory Rate 18 03/23/23 10:50 Blood Pressure 109/82 03/23/23 10:50 Pulse Oximetry 93 L 03/23/23 12:03 Oxygen Delivery Method Nonrebreather 03/23/23 12:03 Oxygen Delivery Flow Rate 15 03/23/23 12:03 MDM - SOB/Dyspnea MDM Narrative Medical decision making narrative: x-ray read by the radiologist indicates bilateral apical opacities with possible infectious process. When I review the x-ray the left lung interstitial process is not advanced. There is no obvious lobar infiltrate. The patient's status here improve with supplemental oxygen. She did not take tolerate high flow nasal Vapotherm so we put her back on a mask. She is a DNR CC. He had documented hypoxemia with improvement with supplemental oxygen here in the Emergency Room. She has Covid positive. I will discuss her with the hospitalist. Lab Data Labs: Lab Results 03/23/23 Range/Units 11:32 WBC 12.4 H (4.0-11.0) 10^3/uL RBC 4.39 (4.20-5.40) 10^6/uL Hgb 13.8 (12.0-16.0) g/dL Hct 40.5 (36.0-48.0) % MCV 92.3 (81.0-99.0) fL MCH 31.4 (26.7-34.0) pg MCHC 34.1 (29.9-35.2) g/dL RDW 14.7 (11.0-15.0) % Plt Count 131 L (150-450) 10^3/uL MPV 10.0 (9.5-13.5) fL Neut % (Auto) 81.4 H (43.0-75.0) % Lymph % (Auto) 13.2 L (20.5-60.0) % [place] % (Auto) 2.0 (1.7-12.0) % Eos % (Auto) 0.0 L (0.9-7.0) % Baso % (Auto) 0.5 (0.2-2.0) % Neut # (Auto) 10.1 H (1.4-6.5) 10^3/uL Lymph # (Auto) 1.6 (1.2-3.8) 10^3/uL [place] # (Auto) 0.3 (0.3-0.8) 10^3/uL Eos # (Auto) 0.0 (0.0-0.7) 10^3/uL Baso # (Auto) 0.1 (0.0-0.1) 10^3/uL Abs Immat Gran (auto) 0.36 H (0.00-0.03) 10^3/uL Imm/Tot Granulo (auto) 2.9 H (0.0-0.5) % Sodium 132 L (136-145) mmol/L Potassium 3.5 (3.5-5.1) mmol/L Chloride 97 L (98-107) mmol/L Carbon Dioxide 24.4 (21.0-32.0) mmol/L Anion Gap 14.1 BUN 13.0 (7.0-18.0) mg/dL Creatinine 0.60 (0.55-1.02) mg/dL Est GFR ( Amer) >60 (>=60) Est GFR (Non-Af Amer) >60 (>=60) BUN/Creatinine Ratio 21.7 Glucose 172 H (74-106) mg/dL Calcium 10.6 H (8.5-10.1) mg/dL Total Bilirubin 0.6 (0.2-1.0) mg/dL AST 37 (15-37) U/L ALT 58 (14-59) U/L Alkaline Phosphatase 155 H (46-116) U/L Troponin I High Sens 15.3 (4.0-51.3) pg/mL Total Protein 6.6 (6.4-8.2) g/dL Albumin 2.4 L (3.4-5.0) g/dL Globulin 4.2 g/dL Albumin/Globulin Ratio 0.6 Discharge Plan Discharge Chief Complaint: Shortness of Breath/Dyspnea Clinical Impression: Acute respiratory failure with hypoxemia Patient Disposition: Admitted as Observation Time of Disposition Decision: 12:55 Prescriptions / Home Meds: No Action prednisone 10 mg tablet See Rx Instructions PO Q12H Rx Instructions: TAKE 1 TABLET BY MOUTH EVERY MORNING AND ONE-HALF TABLET BY MOUTH IN THE EVENING orally every 12 hours; tramadol 50 mg tablet 50 mg PO Q8H PRN (Reason: pain) Patient Comments: X5 DAYS STARTED 09/06/22 levofloxacin 500 mg tablet 500 mg PO Q24H tramadol 50 mg tablet 50 mg PO Q8H PRN (Reason: pain) 5 Days Qty: 14 0RF amlodipine 2.5 mg tablet 5 mg PO DAILY fexofenadine [[facility]] 180 mg tablet 180 mg PO DAILY cholecalciferol (vitamin D3) 50 mcg (2,000 unit) capsule 50 mcg PO DAILY cyanocobalamin (vitamin B-12) 1,000 mcg capsule 1,000 mcg PO .every wed omeprazole 20 mg capsule,delayed release(DR/EC) 20 mg PO DAILY acetaminophen 500 mg capsule 1,000 mg PO BID PRN (Reason: pain) prednisone 5 mg tablet 5 mg PO TID albuterol sulfate 2.5 mg /3 mL (0.083 %) solution for nebulization 2.5 mg continuous nebulization Q4H PRN (Reason: shortness of breath or wheezing) doxycycline monohydrate 100 mg tablet 100 mg PO BID 3 Days Qty: 6 0RF Referrals: Dennis Og DO [Primary Care Provider] - 1 week
--- OUTSIDE RECORDS SUMMARY | 2023-03-23 11:35 | XMS_ITS | CCD ---
Author Name Unknown Address [address] [place] [address] Organization [facility] Care Team Providers [employer] Name Role Phone Tom Welch MD Unavailable Bhumika Stacy DO Primary Care Provider [phone] Tom Welch MD Unavailable Bhumika Stacy DO Primary Care Provider [phone] BHUMIKA STACY Primary Care Unavailable EULOGIO MANZO Referring Unavailable BHUMIKA STACY Primary Care Unavailable FABIOLALOUIEUL KATIE Consulting Unavailable DILAN JEROME Attending Unavailable MASON LORETTA L Admitting Unavailable GOLDIE, FLORENCE Consulting Unavailable RAIMLARA KELLY Consulting Unavailable AOUANILESH Finnegan Consulting Unavailable EULOGIO MANZO Consulting Unavailable SAI SERRATO Consulting Unavailable MISC, [...] COLLETTE Echols Admitting Unavailable MIKHAIL, DR COLLETTE Echols Attending Unavailable GODFREY, DR BAI Primary Care [...] UNKNOWN Attending Unavailable PROVIDER, UNKNOWN Admitting Unavailable Godrfey, Dr. Bai Ralph Primary Care Zenavajeniffer Stacy, Dr. Bai Ralph Primary Care Zenavajeniffer Hassan HOME HEALTH CLINICAL LIAISON-MOP MAKER, Lexie Zaman Attending Zena vailable Ball DO, Bhumika [place] Consulting Unavail able Ball DO, Bhumika Ralph Primary Care Unavail able Ball DO, [facility] Primary Care Unavail able Pratima BUSTILLOS, Eulogio Becker Referring Unavailable Chan BUSTILLOS, Jean-Claude Kumari Attending Unavailable Tessa BUSTILLOS, Jhoan Attending Unavailable Ball DO, Bhumika Ralph Primary Care Unavail able [place] DO, Boni Ontiveros Attending Unav ailable Ball DO, Bhumika Ralph Consulting Unavail able Ball DO, Bhumika Ralph Primary Care Unavail able Ball, DO Ponce De Leon Primary Care Provider DO Boni Lincoln Admit Provider [phone] MD Arnaud Max Attending Provider [phone] MD Moises Garcia Other Provider MD Kira Gill Other Provider MD Tom Hill Admit Provider MD Tom Hill Attending Provider [phone] VIDYA Lay Other Provider Unavailable VIDYA Gotti Other Provider Unavailable VIDYA Rider Other Provider Unavailable VIDYA Caballero Other Provider Unavailable VIDYA Canela Other Provider Unavailable VIDYA Mohamud Other Provider Unavailable MD Hamzah Grvoes Other Provider MD Molina Mccoy Other Provider Unavailable Dials, HOME HEALTH CLINICAL LIAISON Isabel M Other Provider [phone] DO Francesco Tomas Other Provider [phone] MD Randal Moore Other Provider DO Adam Estrella Other Provider MD Arnaud Max Other Provider MD Gabby Salinas Other Provider Musa, ANP-BC Vicky Other Provider MD Kelsie Hoover Other Provider [phone] MD Yousif Toro Other Provider MD Frank Cook Other Provider MD Lawrence Ramirez Other Provider DO Boni Lincoln Other Provider MD Irma Traore Other Provider MD Yohannes Vargas Other Provider Pasquale, TUBE BUILDING MACHINE OPERATOR-C Cathy Orlando Other Provider [phone] MD [...] Other Provider DO Julian Bell Other Provider MD Isabel Mcneil Other Provider MD Gregg Galvez Other Provider [phone] MD Balta Palmer Other Provider DO Neville Faulkner Other Provider Bhumika Stacy DO Primary Care Provider Moises Garcia Unavailable Bhumika Stacy DO Primary Care Provider NAMRATA POWELL Attending Unavailable CONSULT, SURGERY - NEURO Consulting Unavail able GODFREYBHUMIKA Primary Care Unavailable SYSTEM, PROVIDER NOT IN Referring Unavaila KELSIE Bowen Admitting Unavailable MD Moises Garcia Attending Provider Tom Hill Admitting Unavailable Tom Hill Attending [...] Unavailable ChaAilyn montiel Consulting Unavailable Jairo, Kira Bowlse Consulting Unavaila Karin Huston Consulting Unavailable Julian Bell Consulting UnavailIsabel Riggs Consulting Unavailable Gregg Galvez Consulting Unavailable Balta Palmer Consulting Unavailable Neville Faulkner Consulting Unavailable Garcia Moises Jelena Attending Unavailable Garcia, Moises E Admitting [facility] Arnaud Max Attending Unavailable Garcia, Moises E Consulting Unavailable Boni Lincoln Admitting Unavailable [facility] Primary Care Unavailable Jairo, Kira Bowles Consulting Unavaila CHARANJIT Carrero Attending Unavailable CATAULA, PELHAM Primary Care Unavailable KOKO KELLY Attending Unavailable [facility] Primary Care Unavailable JOHNSONMARY ANN DUQUE Referring Unavailabl e BALL, PELHAM Primary Care Unavailable MADISYNHECTOR Referring Unavailable BALL, PELHAM Primary Care Unavailable BALL, PELHAM Primary Care Unavailable MADISYNHECTORIN Referring Unavailable MADISYNHECTOR Referring Unavailable BALL, PELHAM Primary Care Unavailable MADISYN, HECTOR WADE Referring Unavailable BALL, PELHAM Primary Care Unavailable JOHNSONMARY ANN GRIDER Referring Unavailabl e BALL, PELHAM Primary Care Unavailable MADISYNHECTOR Referring Unavailable BALL, PELHAM Primary Care Unavailable MADISYN, HECTOR BURROWSIN Referring Unavailable BALL, PELHAM Primary Care Unavailable Allergies Allergy Classification Reported Allergen(s) Allergy Type Date of Onset Reaction(s) Facility (2 sources) patient allergy list reviewed by nurse or physicia Propensity to adverse reactions 5 Comment:Done [facility] Other Medications Current Medications Medication Drug Class(es) [...] tablet 650 mg take 2 tablets by [facility] twice daily for pain Acetaminophen 500 MG [...] Laxative Start: 09-25-2022 Bisacodyl Active 10 MG MT Daily 0 September 25, 2022 12:00am calcium [...] 100 mg take 1 capsule by mo [facility] every twelve hours Colace 100 MG 1 capsule Orally every 12 hours as need Active docusate sodium 50 mg / sennosides, penitentiary 8.6 mg oral tablet (6 sources) Start: [...] tid Jan, Active take 1 capsule by [facility] three times daily gabapentin (NEURONTIN) 300 MG [...] capsule 2 mg take 2 tablets by [facility] every twenty-four hours Imodium A-D 2 MG [...] End: 08-14-2021 morphine injection 4 mg Nystatin 205537 units/g (13 sources) Nystatin 959292 units/g applied topically as directed four times [...] DAILY@12 0 September 25, 2022 12:00am sennosides, penitentiary 8.6 mg oral tablet (10 sources) take [...] 100 mL IVPB (mini-bag) polyethylene glycol 3350 40788 mg powder for oral solution (6 sources) [...] region Episodic Other aftercare (2 sources) 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 (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 therapy; Translations: [OTH LONGTERM CURRENT DRUG THERAPY] Onset: 05-15-2022 Episodic Other [...] Episodic Other endocrine disorders (6 sources) Iatrogenic Liberty's disease; 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 Other endocrine disorders (7 sources) Drug-induced Digna's syndrome Chronic Other endocrine disorders (20 sources) Hypercortisolism; 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 During your visit today, we recorded the following information about you: Augusta Cho Ma 03/17/2023 11:43 AM Signed Attempted to contact patient via telephone regarding upcoming NEW patient appointment with Dr. Banerjee on 03/18/23. [facility] relaying the message below: This is the [facility] calling regarding your upcoming appointment with Dr. Banerjee. Please complete the assigned pre-visit questionnaires on [employer] prior to your appointment. To avoid a delay in your care, please bring any radiology images that have been done outside of the [facility] Systems on a disk to be [...] by AUGUSTA CHO MA on 03/17/23 Normal [facility] Hemoglobin A1Con 11-26-2022 Glucose [Mass/Vol] 97 mg/dL Normal [facility] Comment on above: Result Comment: The ADA and AACC recommend providing the estimated average glucose result to permit better patient understanding of their HBA1c result. Performed By: #### B C #### [address] [place] [address] Accounts Supervisor: Collette Willard MD HbA1c (Bld) [Mass fraction] 5.0 % Normal 4.0-6.0 [facility] Comment on above: Performed By: #### B C #### [address] [place] [address] Accounts Supervisor: Collette Willard MD Urinalysis, Routineon 2022 Bilirubin, SemiQt,Ur Negative Normal NEG [facility] Comment on above: Performed By: #### BRUCE Hussein #### [address] [place] [address] Accounts Supervisor: Collette Willard MD Blood, Urine TRACE Abnormal NEG [facility] Comment on above: Performed By: #### U BRUCE Ragsdale #### [facility] [address] [place] [address] [place] [address] Accounts Supervisor: Collette Willard MD Clarity (U) Clear Normal CLEAR [facility] Comment on above: Performed By: #### U A, UMICAO #### [facility] [address] [place] [address] Dr. [place], [place] [id number] Accounts Supervisor: Collette Willard MD Color (U) Yellow Normal YEL [facility] Comment on above: Performed By: #### U A, UMICAO #### [facility] [address] [place] [address] [place] [address] Accounts Supervisor: Collette Willard MD Glucose Ql (U) Negative Normal NEG [facility] Comment on above: Performed By: #### U A, UMICAO #### [facility] [address] [place] [address] Dr. [place], [place] 0308683 Accounts Supervisor: Collette Willard MD Ketones Ql (U) Negative Normal NEG [facility] Comment on above: Performed By: #### U A, UMICAO #### [facility] [address] [place] [address] [place] [address] Accounts Supervisor: Collette Willard MD Leukocyte esterase Test strip Ql (U) Negative Normal NEG [facility] Comment on above: Performed By: #### U A, UMICAO #### [facility] [address] [place] [address] [place] [address] Accounts Supervisor: Collette Willard MD Nitrite,Ur Positive Abnormal NEG [facility] Comment on above: Performed By: #### U A, UMICAO #### [facility] [address] [place] [address] [place] [address] Accounts Supervisor: Collette Willard MD PH,Ur 6.0 Normal 5.0-9.0 [facility] Comment on above: Performed By: #### U A, UMICAO #### [facility] [address] [place] [address] [place] [address] Accounts Supervisor: Collette Willard MD Protein Ql (U) Negative Normal NEG [facility] Comment on above: Performed By: #### U A, UMICAO #### [address] [place], [place] [address] Accounts Supervisor: Collette Willard MD Spec. Brielle,Ur 1.010 Normal 1.010-1.020 [facility] Comment on above: Performed By: #### U A, UMICAO #### [facility] [address] [place] [address] [place] [address] Accounts Supervisor: Collette Willard MD Urobilinogen,Ur Normal Normal 0.0-1.0 [facility] Comment on above: Performed By: #### U A, KARYNICAO #### [address] [place], [facility] Accounts Supervisor: Collette Willard MD Urinalysis,Microon 3 Bacteria 1+ Abnormal [facility] Comment on above: Performed By: #### U AJUANO #### [address] [place], [place] 34[address]83 Accounts Supervisor: Collette Willard MD Crystals LM Nom (Urine sed) GREATER THAN 50 Abnormal [facility] Comment on above: Result Comment: CALC IUM OXALATE Performed By: #### U A, UMICAO #### [facility] [address] [place] [address] Dr[place], [place] 2287383 Accounts Supervisor: Collette Willard MD Epithelial cells LM Ql (Urine sed) 5 TO 10 Normal 0-25 [facility] Comment on above: Performed By: #### U A, UMICAO #### [address] [place], [place] 0264583 Accounts Supervisor: Collette Willard MD Urine RBC's 0 TO 2 Normal 0-2 [facility] Comment on above: Performed By: #### U A, UMICAO #### [facility] [address] [place], [place] 1329283 Accounts Supervisor: Collette Willard MD Urine WBC's None Normal 0-5 [facility] Comment on above: Performed By: #### U A, UMICAO #### [facility] [address] [place], [place] 6[address]3783 Accounts Supervisor: Collette Willard MD Drug Scr, Abuse, Uron 2022 Amphetamine(s),Ur Negative Normal NEG [facility] Comment on above: Result Comment: (Positive cutoff 1000 ng/mL) Performed By: #### U A, KAYLA, UMICAO #### [address] [place], [place] 8886083 Accounts Supervisor: Collette Willard MD Barbiturate(s),Ur Negative Normal NEG [facility] Comment on above: Result Comment: (Positive cutoff 200 ng/mL) Performed By: #### U A, KAYLA, UMICAO #### [address] [place], [place] 6113583 Accounts Supervisor: Collette Willard MD Benzodiazepine(s) Negative Normal NEG [facility] Comment on above: Result Comment: (Positive cutoff 200 ng/mL) Performed By: #### U A, KAYLA, UMICAO #### [facility] [address] [place] [address] Dr. [place], [place] 6112183 Accounts Supervisor: Collette Willard MD Buprenorphrine, Ur Negative Normal NEG [facility] Comment on above: Result Comment: (Positive cutoff 5 ng/ml) Performed By: #### U A, KAYLA, UMICAO #### [facility] [address] [place], [place] [address]83 Accounts Supervisor: Collette Willard MD Cannabinoid(s),Ur Negative Normal NEG [facility] Comment on above: Result Comment: (Positive cutoff 50 ng/mL) Performed By: #### U A, KAYLA, UMICAO #### [address] [place], [place] 6598983 Accounts Supervisor: Collette Willard MD Cocaine Metabolite Negative Normal [facility] Comment on above: Result Comment: (Positive cutoff 300 ng/mL) Performed By: #### U A, KAYLA, UMICAO #### [address] [place], [place] 8096983 Accounts Supervisor: Collette Willard MD Fentanyl, Urine Negative Normal [facility] Comment on above: Result Comment: (Positive cutoff 5 ng/ml) Performed By: #### U A, KAYLA, UMICAO #### [address] [place], [place] [id number] Accounts Supervisor: Collette Willard MD Interpretive Info Assay provides medic al screening only. The absence of expected drug(s) and/or Normal [facility] Comment on above: Result Comment: meta bolite(s) may indicate diluted or adulterated urine, limitations of testing or timing of collection. Testing for legal purposes should be confirmed by another method. To request confirmation of test result, please call the lab within 7 days of sample submission. Performed By: #### U A, KAYLA, UMICAO #### [address] [place], [place] 0915383 Accounts Supervisor: Collette Willard MD Methadone Ql (U) Negative Normal NEG [facility] Comment on above: Result Comment: (Positive cutoff 300 ng/mL) Performed By: #### U A, KAYLA, UMICAO #### [address] [place], [place] 9509683 Accounts Supervisor: Collette Willard MD Opiate(s), Ur Negative Normal NEG [facility] Comment on above: Result Comment: (Positive cutoff 300 ng/mL) Performed By: #### U A, KAYLA, UMICAO #### [address] [place], [place] 3587383 Accounts Supervisor: Collette Willard MD Oxycodone, Urine Negative Normal NEG [facility] Comment on above: Result Comment: (Positive cutoff 100 ng/mL) Performed By: #### U A, KAYLA, UMICAO #### [facility] [address] [place] [address] Dr. [place], [place] 6167583 Accounts Supervisor: Collette Willard MD Phencyclidine, Ur Negative Normal NEG [facility] Comment on above: Result Comment: (Positive cutoff 25 ng/mL) Performed By: #### U A, KAYLA, UMICAO #### [address] [place], [place] 1990483 Accounts Supervisor: Collette Willard MD Urinalysis, Routineon 2022 Bilirubin, SemiQt,Ur SMALL Abnormal NEG [facility] Comment on above: Performed By: #### U A, KAYLA, UMICAO #### [address] [place], [place] 9245883 Accounts Supervisor: Collette Willard MD Blood, Urine 1+ Abnormal NEG [facility] Comment on above: Performed By: #### U A, KAYLA, UMICAO #### [address] [place], [place] 0868183 Accounts Supervisor: Collette Willard MD Clarity (U) SLIGHTLY CLOUDY Abnormal CLEAR [facility] Comment on above: Performed By: #### U A, KAYLA, UMICAO #### [facility] [address] [place] [address] Dr. [place], [place] 0983583 Accounts Supervisor: Collette Willard MD Color (U) Yellow Normal YEL [facility] Comment on above: Performed By: #### U A, KAYLA, UMICAO #### [facility] [address] [place] [address] Dr. [place], [place] 0128783 Accounts Supervisor: Collette Willard MD Glucose Ql (U) Negative Normal NEG [facility] Comment on above: Performed By: #### U A, KAYLA, UMICAO #### [address] [place], [place] 2135883 Accounts Supervisor: Collette Willard MD Ketones Ql (U) Negative Normal NEG [facility] Comment on above: Performed By: #### U A, KAYLA, UMICAO #### [address] [place], [place] [address] Accounts Supervisor: Collette Willard MD Leukocyte esterase Test strip Ql (U) Negative Normal NEG [facility] Comment on above: Performed By: #### U A, KAYLA, UMICAO #### [address] [place], [facility] Accounts Supervisor: Collette Willard MD Nitrite,Ur Negative Normal NEG [facility] Comment on above: Performed By: #### U A, KAYLA, UMICAO #### [address] [place], [facility] Accounts Supervisor: Collette Willard MD PH,Ur 5.5 Normal 5.0-9.0 [facility] Comment on above: Performed By: #### U A, KAYLA, UMICAO #### [address] [place], [place] [address] Accounts Supervisor: Collette Willard MD Protein Ql (U) TRACE Abnormal NEG [facility] Comment on above: Performed By: #### U A, KAYLA, UMICAO #### [address] [place], [place] [address] Accounts Supervisor: Collette Willard MD Spec. Brielle,Ur 1.020 Normal 1.010-1.020 [facility] Comment on above: Performed By: #### U A, KAYLA, UMICAO #### [address] [place], [facility] Accounts Supervisor: Collette Willard MD Urobilinogen,Ur Normal Normal 0.0-1.0 [facility] Comment on above: Performed By: #### U A KAYLA UMICAO #### [facility] [address] [place], [place] 9084283 Accounts Supervisor: Collette Willard MD Urinalysis,Microon 3 Bacteria 1+ Abnormal NONE [facility] Comment on above: Performed By: #### U A KAYLA, UMICAO #### [facility] [address] [place], [place] 7088883 Accounts Supervisor: Collette Willard MD Epithelial cells LM Ql (Urine sed) 2 TO 5 Normal 0-25 [facility] Comment on above: Performed By: #### U AKAYLA UMICAO #### [facility] [address] [place] [address] Dr. [place], [place] 4110783 Accounts Supervisor: Collette Willard MD Mucus Strands TRACE Abnormal NONE [facility] Comment on above: Performed By: #### U AKAYLA UMICAO #### [facility] [address] [place] [address] Dr. [place], [place] 86[address]83 Accounts Supervisor: Collette Willard MD Urine RBC's 0 TO 2 Normal 0-2 [facility] Comment on above: Performed By: #### U A KAYLAKARYN NegroICAO #### [facility] [address] [place] [address] Dr. [place], [place] 5663183 Accounts Supervisor: Collette Willard MD Urine WBC's 0 TO 2 Normal 0-5 [facility] Comment on above: Performed By: #### U A KAYLA UMICAO #### [facility] [address] [place], [place] 7114183 Accounts Supervisor: Collette Willard MD XR cervical spine 2Von 11-14 XR cervical spine 2V [facility] Main [place] [address] [place], [place] [address] XRay Report Signed Patient: Miriam German MR#: [id number] : 1955 Acct:[id number] Age/Sex: 67 / F ADM Date: 11/14/22 Loc: XD Room: Type: [facility] Attending Dr: Moises Garcia MD Copies to: [...] Coates Jr., DNickONick11/14/2022 3:16 PM Dictation Location: [place] [address] Transcribed By: [facility] 11/14/22 151 Dictated By: Tom Coates Jr, DO 11/14/22 151 Signed By: 11/14/[address] [facility] CBC with Auto Differentialon 10-27-2022 Basophils (Bld) [#/Vol] 0.06 10*3/uL [facility] Basophils/100 WBC (Bld) 1 % 0 - 2 % [facility] Eosinophils (Bld) [#/Vol] 0.04 10*3/uL [facility] Eosinophils/100 WBC (Bld) 0 % Low 1 - 4 % [employer] Erythrocyte distribution width (RBC) [Ratio] 14.6 % High 11.8 - 14.4 % [employer] [facility] Hematocrit (Bld) [Volume fraction] 40.7 % 36.3 - 47.1 % [employer] [facility] Hemoglobin (Bld) [Mass/Vol] 13.0 g/dL 11.9 - 15.1 g/dL [facility] Immature granulocytes (Bld) [#/Vol] 0.34 10*3/uL High [facility] Immature granulocytes/100 WBC (Bld) 3 % High 0 [facility] Interpretation and review of laboratory results Abnormal [facility] Lymphocytes/100 WBC (Bld) 10 % Low 24 - 43 % [facility] Lymphocytes/100 WBC (Bld) 0.98 % Low [facility] MCH (RBC) [Entitic mass] 30.2 pg 25.2 - 33.5 pg [facility] MCHC (RBC) [Mass/Vol] 31.9 g/dL 28.4 - 34.8 g/dL [facility] MCV (RBC) [Entitic vol] 94.4 fL 82.6 - 102.9 fL [facility] Monocytes/100 WBC (Bld) 3 % 3 - 12 % [facility] Monocytes/100 WBC (Bld) 0.35 % [facility] Neutrophils/100 WBC (Bld) 83 % High 36 - 65 % [facility] Nucleated RBC/100 WBC (Bld) [Ratio] 0.0 % 0.0 per 100 WBC [facility] Platelet mean volume (Bld) [Entitic vol] 9.6 fL 8.1 - 13.5 fL [facility] Platelets (Bld) [#/Vol] 166 10*3/uL [facility] RBC (Bld) [#/Vol] 4.31 10*6/uL 3.95 - 5.1 1 m/uL [facility] Segmented neutrophils/100 WBC (Bld) 8.60 % High [facility] WBC other (Bld) [#/Vol] 10.4 [facility] CBC with Diffon 10-27-2022 Abs. Basophil 0.06 k/uL Normal 0.00-0.20 [facility] Comment on above: Performed By: #### C P, CBC #### [facility] [address] [place] [address] Accounts Supervisor: Collette Willard MD Abs.Imm.Granulocyte 0.34 k/uL High 0.00-0.30 [facility] Comment on above: Performed By: #### C P, CBC #### [address] [place] [address] Accounts Supervisor: Collette Willard MD Abs.Neutrophil (Seg) 8.60 k/uL High 1.50-8.10 [facility] Comment on above: Performed By: #### C P, CBC #### [address] [place], [facility] Accounts Supervisor: Collette Willard MD Basophils/100 WBC (Bld) 1 % Normal 0-2 [facility] Comment on above: Performed By: #### C P, CBC #### [address] [place] [id number] Accounts Supervisor: Collette Willard MD Eosinophils (Bld) [#/Vol] 0.04 10*3/uL Normal 0.00-0.44 [facility] Comment on above: Performed By: #### C P, CBC #### [address] [place] [id number] Accounts Supervisor: Collette Willard MD Eosinophils/100 WBC (Bld) 0 % Low 1-4 [facility] Comment on above: Performed By: #### C P, CBC #### [address] [place], [facility]83 Accounts Supervisor: Collette Willard MD Erythrocyte distribution width (RBC) [Ratio] 14.6 % High 11.8-14.4 [facility] Comment on above: Performed By: #### C P, CBC #### [address] [place] [id number] Accounts Supervisor: Collette Willard MD Hematocrit (Bld) [Volume fraction] 40.7 % Normal 36.3-47.1 [facility] Comment on above: Performed By: #### C P, CBC #### [facility] [address] [place], [place] 7446083 Accounts Supervisor: Collette Willard MD Hemoglobin (Bld) [Mass/Vol] 13.0 g/dL Normal 11.9-15.1 [facility] Comment on above: Performed By: #### C P, CBC #### [facility] [address] [place], [facility]83 Accounts Supervisor: Collette Willard MD Immature granulocytes/100 WBC (Bld) 3 % High 0 [facility] Comment on above: Performed By: #### C P, CBC #### [address] [place] [address] Accounts Supervisor: Collette Willard MD Lymphocytes (Bld) [#/Vol] 0.98 10*3/uL Low 1.10-3.70 [facility] Comment on above: Performed By: #### C P, CBC #### [address] [place], [facility]83 Accounts Supervisor: Collette Willard MD Lymphocytes/100 WBC (Bld) 10 % Low 24-43 [facility] Comment on above: Performed By: #### C P, CBC #### [address] [place] [address] Accounts Supervisor: Collette Willard MD MCH (RBC) [Entitic mass] 30.2 pg Normal 25.2-33.5 [facility] Comment on above: Performed By: #### C P, CBC #### [address] [place] [address] Accounts Supervisor: Collette Willard MD MCHC (RBC) [Mass/Vol] 31.9 g/dL Normal 28.4-34.8 [facility] Comment on above: Performed By: #### C P, CBC #### [address] [place] [address] Accounts Supervisor: Collette Willard MD MCV (RBC) [Entitic vol] 94.4 fL Normal 82.6-102.9 [facility] Comment on above: Performed By: #### C P, CBC #### [facility] [address] [place], [place] [id number] Accounts Supervisor: Collette Willard MD Monocytes (Bld) [#/Vol] 0.35 10*3/uL Normal 0.10-1.20 [facility] Comment on above: Performed By: #### C P, CBC #### [address] [place], [place] [id number] Accounts Supervisor: Collette Willard MD Monocytes/100 WBC (Bld) 3 % Normal 3-12 [facility] Comment on above: Performed By: #### C P, CBC #### [address] [place], [place] 3240083 Accounts Supervisor: Collette Willard MD Neutrophil (Seg) 83 % High 36-65 [facility] Comment on above: Performed By: #### C P, CBC #### [address] [place], [place] [id number] Accounts Supervisor: Collette Willard MD NRBC Automated 0.0 per 100 WBC Normal 0.0 [facility] Comment on above: Performed By: #### C P, CBC #### [address] [place], [place] 6766483 Accounts Supervisor: Collette Willard MD Platelet mean volume (Bld) [Entitic vol] 9.6 fL Normal 8.1-13.5 [facility] Comment on above: Performed By: #### C P, CBC #### [address] [place] [address] Accounts Supervisor: Collette Willard MD Platelets (Bld) [#/Vol] 166 10*3/uL Normal 138-453 [facility] Comment on above: Performed By: #### C P, CBC #### [facility] [address] [place] [address] Accounts Supervisor: Collette Willard MD RBC (Bld) [#/Vol] 4.31 10*6/uL Normal 3.95-5.11 [facility] Comment on above: Performed By: #### C P, CBC #### [facility] [address] [place] [address] Accounts Supervisor: Collette Willard MD WBC (Bld) [#/Vol] 10.4 10*3/uL Normal 3.5-11.3 [facility] Comment on above: Performed By: #### C P, CBC #### [facility] [address] [place] [address] Accounts Supervisor: Collette Willard MD [facility] 10-27-2022 Albumin [Mass/Vol] 3.6 g/dL 3.5 - 5.2 g/dL [facility] Albumin/Globulin [Mass ratio] 1.6 {ratio} 1.0 - 2.5 [facility] ALP [Catalytic activity/Vol] 152 U/L High 35 - 104 U/L [facility] ALT [Catalytic activity/Vol] 47 U/L High 5 - 33 U/L [facility] Anion gap [Moles/Vol] 9 mmol/L 9 - 17 mmol/L [facility] AST [Catalytic activity/Vol] 38 U/L High NINF - 32 U/L [facility] Bilirubin [Mass/Vol] 0.3 mg/dL 0.3 - 1 .2 mg/dL [facility] Calcium [Mass/Vol] 9.5 mg/dL 8.6 - 10. 4 mg/dL [facility] Chloride [Moles/Vol] 102 mmol/L 98 - 10 7 mmol/L [facility] CO2 [Moles/Vol] 30 mmol/L 20 - 31 mmol/L [facility] Creatinine [Mass/Vol] 0.3 mg/dL Low 0.5 - 0.9 mg/dL [facility] [employer] GFR/1.73 sq M.predicted MDRD (S/P/Bld) [Vol rate/Area] - PINF [facility] Comment on above: These results are [...] 118 mg/dL High 70 - 99 mg/dL [facility] [employer] Interpretation and review of laboratory results Abnormal [facility] Potassium [Moles/Vol] 4.1 mmol/L 3.7 - 5.3 mmol/L [facility] [employer] Protein [Mass/Vol] 5.9 g/dL Low 6.4 - 8.3 g/dL [facility] Sodium [Moles/Vol] 141 mmol/L 135 - 144 mmol/L [facility] Urea nitrogen [Mass/Vol] 11 mg/dL 8 - 23 mg/dL [facility] Urea nitrogen/Creatinine [Mass ratio] 37 mg/mg High 9 - 20 [facility] CT CERVICAL SPINE WO CONTRAS Ton 10-27-2022 [...] Jaiden Mendez MD 10/27/22 Final result Normal [facility] CT CSpine W/O Contraston No acute fracture or malalignment of the cervical spine. Remote dens fracture with posterior fixation at C1-C2. 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 [facility] EXAMINATION: CT OF THE [...] There is no prevertebral soft tissue swelling. [facility] Jaiden Mendez MD - [...] cervical spine with bilateral bony foraminal narrowing. [facility] Radiology Study observation (narrative) [facility] CT HEAD WO CONTRASTon 2022 CT [...] Interpreted by: Jaiden Mendez MD Signed by: Jiaden Mendez MD 10/27/22 Final result Normal [facility] CT Head W/O Contraston 10-27 No acute intracrania l abnormality. Fluid throughout the mastoid air cells representing effusion versus a degree of mastoiditis. [facility] EXAMINATION: CT OF THE [...] of the visualized skull or soft tissues. [facility] Jaiden Mendez MD - [...] representing effusion versus a degree of mastoiditis. [facility] Radiology Study observation (narrative) [facility] CT Head W/O ContrastOrdered By: Jaiden Mendez on 10-27-2022 [facility] Work Phone: Comp Metabolic Profon 2022 Albumin [Mass/Vol] 3.6 g/dL Normal 3.5-5.2 [facility] Comment on above: Performed By: #### C P, CBC #### [facility] [address] [place] [address] [place] [address] Accounts Supervisor: Collette Willard MD Albumin/Glob Ratio 1.6 Normal 1.0-2.5 [facility] Comment on above: Performed By: #### C P, CBC #### [facility] [address] [place] [address] [place] [address] Accounts Supervisor: Collette Willard MD Alkaline Phos 152 U/L High 35-104 [facility] Comment on above: Performed By: #### C P, CBC #### [facility] [address] [place] [address] Accounts Supervisor: Collette Willard MD ALT [Catalytic activity/Vol] 47 U/L High 5-33 [facility] Comment on above: Performed By: #### C P, CBC #### [facility] [address] [place] [address] Accounts Supervisor: Collette Wilalrd MD Anion gap [Moles/Vol] 9 mmol/L Normal 9-17 [facility] Comment on above: Performed By: #### C P, CBC #### [facility] [address] [place], [place] 7524683 Accounts Supervisor: Collette Willard MD AST [Catalytic activity/Vol] 38 U/L High <32 [facility] Comment on above: Performed By: #### C P, CBC #### [facility] [address] [place], [place] 3177583 Accounts Supervisor: Collette Willard MD Bilirubin [Mass/Vol] 0.3 mg/dL Normal 0.3-1.2 [facility] Comment on above: Performed By: #### C P, CBC #### [facility] [address] [place], [place] 0972783 Accounts Supervisor: Collette Willard MD BUN/CRE Ratio 37 High 9-20 [facility] Comment on above: Performed By: #### C P, CBC #### [facility] [address] [place], [place] 5976983 Accounts Supervisor: Collette Willard MD Calcium [Mass/Vol] 9.5 mg/dL Normal 8.6-10.4 [facility] Comment on above: Performed By: #### C P, CBC #### [facility] [address] [place], [place] [id number] Accounts Supervisor: Collette Willard MD Chloride [Moles/Vol] 102 mmol/L Normal 98-107 [facility] Comment on above: Performed By: #### C P, CBC #### [facility] [address] [place], [place] 4839283 Accounts Supervisor: Collette Willard MD CO2 [Moles/Vol] 30 mmol/L Normal 20-31 [facility] Comment on above: Performed By: #### C P, CBC #### [facility] [address] [place] [address] Accounts Supervisor: Collette Willard MD Creatinine [Mass/Vol] 0.3 mg/dL Low 0.5-0.9 [facility] Comment on above: Performed By: #### C P, CBC #### [facility] [address] [place] [address] Accounts Supervisor: Collette Willard MD GFR/1.73 sq M.predicted among non-blacks MDRD (S/P/Bld) [Vol rate/Area] mL/min/{1.73_m2} Normal >60 [facility] Comment on above: Result Comment: These results [...] Performed By: #### C P, CBC #### [facility] [address] [place] [address] Accounts Supervisor: Collette Willard MD Glucose [Mass/Vol] 118 mg/dL High 70-99 [facility] Comment on above: Performed By: #### C P, CBC #### [facility] [address] [place] [address] Accounts Supervisor: Collette Willard MD Potassium [Moles/Vol] 4.1 mmol/L Normal 3.7-5.3 [facility] Comment on above: Performed By: #### C P, CBC #### [facility] [address] [place] [address] Accounts Supervisor: Collette Willard MD Protein [Mass/Vol] 5.9 g/dL Low 6.4-8.3 [facility] Comment on above: Performed By: #### C P, CBC #### [facility] [address] [place] [address] Accounts Supervisor: Collette Willard MD Sodium [Moles/Vol] 141 mmol/L Normal 135-144 [facility] Comment on above: Performed By: #### C P, CBC #### [facility] [address] [place] [address] Accounts Supervisor: Collette Willard MD Urea nitrogen [Mass/Vol] 11 mg/dL Normal 11-12 [facility] Comment on above: Performed By: #### C P, CBC #### [facility] [address] [place] [address] Accounts Supervisor: Collette Willard MD ABORH TYPE RECONFIRMATIONon 10-17-2022 ABO/RH(D) TYPE Positive Normal [facility] Comment on above: Result Comment: @ 04:42 by AS1: Performed By: #### T YPEC #### [facility] (DEFAULT) [address] [place] [address] ABO/RH(D) TYPE Positive [facility] Comment on above: @10/17/22 04:42 by A S1: [facility] No Panel Informationon 10-16 [facility] XR Cervical spine 2 Viewson 10-16-2022 [...] particularly given the lack of recent intervention. [facility] Radiology Study observation (narrative) [facility] XR Cervical spine 2 ViewsOrd ered By: Radha Muniz on 10-16-2022 [facility] Work Phone: XR SPINE CERVICAL 2 [...] the lack of recent intervention. Normal [facility] EXTRA MICROon 10-15-2022 [facility] MRI BRAIN WO CONTRASTon - MRI [...] Nahid Jeffries MD 10/14/22 Final result Normal [facility] MRI CERVICAL SPINE W WO CONT RASTon [...] Nahid Jeffries MD 10/14/22 Final result Normal [facility] BLOOD CULTUREon 10-14-2022 Bacteria identified Cx Nom (Unsp spec) NO GROWTH DAY 5 OF 5 Normal [facility] Comment on above: Order Comment: 2 Bot [...] Performed By: #### B LDCULT #### [facility] (DEFAULT) [address] [address] Order Comment: 2 Bot tles (1 Set [...] bottle Performed By: #### C 7ED #### [facility] (DEFAULT) [address] [address] C REACTIVE PROTEINon 023 CRP [Mass/Vol] 17.94 mg/L High <10.00 [facility] Comment on above: Performed By: #### C 7ED #### [facility] (DEFAULT) [address] [address] CRP High sensitivity method [Mass/Vol] 17.94 mg/L High NINF - 10.00 mg/L [facility] Interpretation and review of laboratory results Abnormal [facility] CBC AND ELECTRONIC DIFFon Abs Eos Auto < Normal 0.00-0.42 [facility] Comment on above: Performed By: #### L [id number] #### [facility] (DEFAULT) [address] [address] Basophils (Bld) [#/Vol] 0.05 10*3/uL Normal 0.00-0.15 [facility] Comment on above: Performed By: #### L AB980 #### [facility] (DEFAULT) [address] [address] Basophils/100 WBC (Bld) 0.7 % Normal [facility] Comment on above: Performed By: #### L AB980 #### [facility] (DEFAULT) [address] [address] DIFF STATUS Electronic Differential Normal [facility] Comment on above: Performed By: #### L AB980 #### [facility] (DEFAULT) [address] [address] Eosinophils/100 WBC (Bld) 0.0 % Normal [facility] Comment on above: Performed By: #### L AB980 #### [facility] (DEFAULT) [address] [address] Hematocrit (Bld) [Volume fraction] 45.9 % High 34.9-44.3 [facility] Comment on above: Performed By: #### L AB980 #### [facility] (DEFAULT) [address] [address] Hemoglobin (Bld) [Mass/Vol] 14.6 g/dL Normal 11.4-15.2 [facility] Comment on above: Performed By: #### L AB980 #### [facility] (DEFAULT) [address] [address] Immature Grans % 4.7 % Normal [facility] Comment on above: Performed By: #### L AB980 #### [facility] (DEFAULT) [address] [address] Immature Grans Absolute 0.36 K/uL High <=0.08 [facility] Comment on above: Performed By: #### L AB980 #### [facility] (DEFAULT) [address] [address] Lymphocytes (Bld) [#/Vol] 0.40 10*3/uL Low 1.16-3.51 [facility] Comment on above: Performed By: #### L AB980 #### [facility] (DEFAULT) [address] [address] Lymphocytes/100 WBC (Bld) 5.2 % Normal [facility] Comment on above: Performed By: #### L AB980 #### [facility] (DEFAULT) [address] [address] MCV (RBC) [Entitic vol] 96.2 fL Normal 79.6-97.7 [facility] Comment on above: Performed By: #### L AB980 #### [facility] (DEFAULT) [address] [address] Mean Cell Hgb 30.6 pg Normal 25.9-33.9 [facility] Comment on above: Performed By: #### L AB980 #### [facility] (DEFAULT) [address] [address] Mean Cell Hgb Conc 31.8 g/dL Normal 31.4-35.9 [facility] Comment on above: Performed By: #### L AB980 #### [facility] (DEFAULT) [address] [address] Monocytes (Bld) [#/Vol] 0.09 10*3/uL Low 0.22-0.87 [facility] Comment on above: Performed By: #### L AB980 #### [facility] (DEFAULT) [address] [address] Monocytes/100 WBC (Bld) 1.2 % Normal [facility] Comment on above: Performed By: #### L AB980 #### [facility] (DEFAULT) [address] [address] Nucleated RBC 0.0 /100 WBC Normal <=0.2 [facility] Comment on above: Performed By: #### L AB980 #### [facility] (DEFAULT) [address] [address] Platelet mean volume (Bld) [Entitic vol] 9.5 fL Normal 8.5-12.2 [facility] Comment on above: Performed By: #### L AB980 #### [facility] (DEFAULT) [address] [address] Platelets (Bld) [#/Vol] 199 10*3/uL Normal 150-393 [facility] Comment on above: Performed By: #### L AB980 #### [facility] (DEFAULT) [address] [place] [address] RBC (Bld) [#/Vol] 4.77 10*6/uL Normal 3.91-5.04 [facility] Comment on above: Performed By: #### L AB980 #### [facility] (DEFAULT) [address] [place] [address] RBC Distribution 13.6 % Normal 10.8-14.9 [facility] Comment on above: Performed By: #### L AB980 #### [facility] (DEFAULT) [address] [place] [address] Segs + Bands Auto 88.2 % Normal [facility] Comment on above: Performed By: #### L AB980 #### [facility] (DEFAULT) [address] [place] [address] Segs + Bands,Absolute Auto 6.75 K/uL Normal 1.64-7.28 [facility] Comment on above: Performed By: #### L AB980 #### [facility] (DEFAULT) [address] [place] [address] WBC (Bld) [#/Vol] 7.65 10*3/uL Normal 3.99-11.19 [facility] Comment on above: Performed By: #### L AB980 #### [facility] (DEFAULT) [address] [place] [address] Basophils (Bld) [#/Vol] 0.05 10*3/uL 0.00 - 0.15 K/uL [facility] Basophils/100 WBC (Bld) 0.7 % [facility] Differential cell count method Nom (Bld) Electronic Differential [facility] Eosinophils (Bld) [#/Vol] K/uL 0.00 - 0.42 K/uL [facility] Eosinophils/100 WBC (Bld) 0.0 % [facility] Erythrocyte distribution width (RBC) [Ratio] 13.6 % 10.8 - 14.9 % [facility] Hematocrit (Bld) [Volume fraction] 45.9 % High 34.9 - 44.3 % [facility] Hemoglobin (Bld) [Mass/Vol] 14.6 g/dL 11.4 - 15.2 g/dL [facility] Immature granulocytes (Bld) [#/Vol] 0.36 10*3/uL High NINF - 0.08 K/uL [facility] Immature granulocytes/100 WBC (Bld) 4.7 % [facility] Interpretation and review of laboratory results Abnormal [facility] Lymphocytes (Bld) [#/Vol] 0.40 10*3/uL Low 1.16 - 3.51 K/uL [facility] Lymphocytes/100 WBC (Bld) 5.2 % [facility] MCH (RBC) [Entitic mass] 30.6 pg 25.9 - 33.9 pg [facility] MCHC (RBC) [Mass/Vol] 31.8 g/dL 31.4 - 35.9 g/dL [facility] MCV (RBC) [Entitic vol] 96.2 fL 79.6 - 97.7 fL [facility] Monocytes (Bld) [#/Vol] 0.09 10*3/uL Low 0.22 - 0.87 K/uL [facility] Monocytes/100 WBC (Bld) 1.2 % [facility] Neutrophils (Bld) [#/Vol] 6.75 10*3/uL 1.64 - 7.28 K/uL [facility] Nucleated RBC/100 WBC (Bld) [Ratio] 0.0 % [facility] Platelet mean volume (Bld) [Entitic vol] 9.5 fL 8.5 - 12.2 fL [facility] Platelets (Bld) [#/Vol] 199 10*3/uL 150 - 393 K/uL [facility] RBC (Bld) [#/Vol] 4.77 10*6/uL [facility] Segmented neutrophils/100 WBC (Bld) 88.2 % [facility] WBC (Bld) [#/Vol] 7.65 10*3/uL 3.99 - 11.19 K/uL [facility] CHM 7 - EDon 10-14-2022 Anion gap [Moles/Vol] 15 mmol/L Normal 7-17 [facility] Comment on above: Performed By: #### Krista MarcD #### [facility] (DEFAULT) [address] [place] [address] Chloride [Moles/Vol] 103 mmol/L Normal 98-108 [facility] Comment on above: Performed By: #### Krista 7ED #### [facility] (DEFAULT) [address] [place] [address] CO2 [Moles/Vol] 31 mmol/L Normal 21-31 [facility] Comment on above: Performed By: #### Krista 7ED #### [facility] (DEFAULT) [address] [place] [address] Creatinine [Mass/Vol] 0.45 mg/dL Low 0.50-1.20 [facility] Comment on above: Performed By: #### Krista 7ED #### [facility] (DEFAULT) [address] [place] [address] eGFR, CKD-EPI, Female > Normal >=60 [facility] Comment on above: Result Comment: Repo rted eGFR is based on the CKD-EPI 2020 equation using creatinine, age, and sex. Performed By: #### C 7ED #### [facility] (DEFAULT) [address] [place] [address] Glucose [Mass/Vol] 149 mg/dL High 70-99 [facility] Comment on above: Performed By: #### Krista 7ED #### [facility] (DEFAULT) [address] [place] [address] Osmolality [Osmolality] 306 mosm/kg High 278-305 [facility] Comment on above: Performed By: #### Krista 7ED #### [facility] (DEFAULT) [address] [place] [address] Potassium [Moles/Vol] 3.7 mmol/L Normal 3.5-5.0 [facility] Comment on above: Performed By: #### C 7ED #### [facility] (DEFAULT) [address] [place] [address] Sodium [Moles/Vol] 145 mmol/L Normal 135-145 [facility] Comment on above: Performed By: #### C 7ED #### [facility] (DEFAULT) [address] [place] [address] Urea nitrogen [Mass/Vol] 17 mg/dL Normal 7-25 [facility] Comment on above: Performed By: #### C 7ED #### [facility] (DEFAULT) [address] [place] [address] Urea nitrogen/Creatinine [Mass ratio] 38 mg/mg Normal [facility] Comment on above: Performed By: #### C 7ED #### [facility] (DEFAULT) [address] [place] [address] Anion gap [Moles/Vol] 15 mmol/L 7 - 17 mmol/L [facility] Chloride [Moles/Vol] 103 mmol/L 98 - 10 8 mmol/L [facility] CO2 [Moles/Vol] 31 mmol/L 21 - 31 mmol/L [facility] Creatinine [Mass/Vol] 0.45 mg/dL Low 0.50 - 1.20 mg/dL [facility] GFR/1.73 sq M.predicted CKD-EPI (S/P/Bld) [Vol rate/Area] - [facility] Comment on above: Reported eGFR is bas ed on the CKD-EPI 2020 equation using creatinine, age, and sex. Glucose [Mass/Vol] 149 mg/dL High 70 - 99 mg/dL [facility] Interpretation and review of laboratory results Abnormal [facility] Osmolality Calc [Osmolality] 306 High [facility] Potassium [Moles/Vol] 3.7 mmol/L 3.5 - 5.0 mmol/L [facility] Sodium [Moles/Vol] 145 mmol/L 135 - 145 mmol/L [facility] Urea nitrogen [Mass/Vol] 17 mg/dL 7 - 25 mg/dL [facility] Urea nitrogen/Creatinine [Mass ratio] 38 mg/mg [facility] CT Cervical spine WO contras ton [...] I have reviewed and approved this report. [facility] Radiology Study observation (narrative) [facility] CT SPINE CERVICAL WITHOUT CO NTRASTon [...] reviewed and approved this report. Normal [facility] LACTATE, BLOODon 10-14-2022 Lactate, Blood 2.1 mmol/L High 0.5-1.6 [facility] Comment on above: Performed By: #### L ACT #### [facility] (DEFAULT) [address] [place] [address] LACTATE, BLOODOrdered By: Mehran Castano on 10-14-2022 Interpretation and review of laboratory results Abnormal [facility] Lactate [Moles/Vol] 2.1 mmol/L High 0.5 - 1. 6 mmol/L [facility] No Panel Informationon 10-14 [facility] PT,INR,PTTon 10-14-2022 aPTT Coag (Bld) [Time] 20.9 s Low 24.0-34.3 [facility] Comment on above: Result Comment: Spec imen integrity checked. Performed By: #### P TPTT #### [facility] (DEFAULT) [address] [place] [id number] INR Coag (PPP) [Relative time] 0.9 {INR} Normal 0.9-1.1 [facility] Comment on above: Performed By: #### P TPTT #### [facility] (DEFAULT) [address] [place] [address]26 PT Coag (PPP) [Time] 12.1 s Normal 11.9-14.2 [facility] Comment on above: Performed By: #### P TPTT #### [facility] (DEFAULT) [address] [place] [address] PT,INR,PTTOrdered By: Saloni Lara on 10-14-2022 aPTT Coag (PPP) [Time] 20.9 s Low [facility] Comment on above: Specimen integrity c hecked. INR Coag (Bld) [Relative time] 0.9 {INR} 0.9 - 1.1 [facility] Interpretation and review of laboratory results Abnormal [facility] PT Coag (PPP) [Time] 12.1 s [facility] Portable XR Chest Viewson IMPRESSION: 1. [...] I have reviewed and approved this report. [facility] Portable XR Chest ViewsOrder ed By: Jorge Dowd on 10-14-2022 [facility] Work Phone: SCREEN: MRSA/MSSAOrdered By: Leidy Burk on 10-14-2022 Interpretation and review of laboratory results Normal [facility] Methicillin Resistant S. Aureus By Pcr Negative Negative [facility] Staphylococcus Aureus By Pcr Negative Negative [facility] This test was perfor med using [...] the Clinical Microbiology Laboratory at [facility]. It has not been cleared or approved by the FDA.The laboratory is regulated under CLIA as qualified to perform high-complexity testing. This test is used for clinical purposes. It should not be regarded as investigational or for research. [facility] SCREEN: MRSA/MSSAon 10-15-19 23 Methicillin Resistant S. Aureus By Pcr Negative Normal Negative [facility] Comment on above: Order Comment: Colle [...] the Clinical Microbiology Laboratory at [facility]. It has not been cleared or approved by the FDA.The laboratory is regulated under CLIA as qualified to perform high-complexity testing. This test is used for clinical purposes. It should not be regarded as investigational or for research. Performed By: #### C 7ED #### [facility] (DEFAULT) [address] [place] [address] Staphylococcus Aureus By Pcr Negative Normal Negative [facility] Comment on above: Order Comment: Colle [...] the Clinical Microbiology Laboratory at [facility]. It has not been cleared or approved by the FDA.The laboratory is regulated under CLIA as qualified to perform high-complexity testing. This test is used for clinical purposes. It should not be regarded as investigational or for research. Performed By: #### C 7ED #### [facility] (DEFAULT) [address] [place] [address] TYPE AND SCREENon 10-14-2022 ABO/RH(D) TYPE Positive Normal [facility] Comment on above: Performed By: #### X M #### [facility] (DEFAULT) [address] [place] [address]370 ABO/RH(D) TYPE Positive [facility] URINALYSIS REFLEX TO CULTURE PERFORMABLEon 10-14-2022 Appearance (U) Clear Normal Clear [facility] Comment on above: Performed By: #### U [id number] #### [facility] (DEFAULT) [address] [place] [address] 14292 Bacteria PRESENT Abnormal ABSENT [facility] Comment on above: Performed By: #### U [id number] #### [facility] (DEFAULT) [address] [place] [address]19 Blood Urine Negative Normal Negative [facility] Comment on above: Performed By: #### U [id number] #### [facility] (DEFAULT) [address] [place] [address] 39547 Color (U) Yellow Normal Yellow [facility] Comment on above: Performed By: #### U [id number] #### [facility] (DEFAULT) [address] [place] [address]6912 Glucose Ql (U) Negative Normal Negative [facility] Comment on above: Performed By: #### U [id number] #### [facility] (DEFAULT) [address] [place] [address]24 Hyaline casts LM Ql (Urine sed) 0 - 2 Abnormal (none) [facility] Comment on above: Performed By: #### U [id number] #### [facility] (DEFAULT) [address] [place] [address] 24353 Ketones Ql (U) Negative Normal Negative [facility] Comment on above: Performed By: #### U [id number] #### [facility] (DEFAULT) [address] [place] [address] 62225 Leukocyte esterase Test strip Ql (U) Trace Abnormal Negative [facility] Comment on above: Performed By: #### U [id number] #### [facility] (DEFAULT) [address] [place] [address]648 Nitrites Urine Positive Abnormal Negative [facility] Comment on above: Performed By: #### U [id number] #### [facility] (DEFAULT) [address] [address] pH (U) 7.0 [pH] Normal 5.0-7.0 [facility] Comment on above: Performed By: #### U [id number] #### [facility] (DEFAULT) [address] [address] Protein Urine Negative Normal Negative [facility] Comment on above: Performed By: #### U [id number] #### [facility] (DEFAULT) [address] [address] RBC Urine 0-2 Normal 0-2 [facility] Comment on above: Performed By: #### U [id number] #### [facility] (DEFAULT) [address] [address] Specific Brielle Urine 1.010 Normal 1.001-1.035 [facility] Comment on above: Performed By: #### U [id number] #### [facility] (DEFAULT) [address] [address] Squamous/Epithelial Cells 0-2/hpf Normal 0-2/hpf, 3-5/hpf = 1+ [facility] Comment on above: Performed By: #### U [id number] #### [facility] (DEFAULT) [address] [address] Urobilinogen Urine 0.2 E.U./dL Normal 0.2 E.U/d L, 1.0 E.U/dL [facility] Comment on above: Performed By: #### U [id number] #### [facility] (DEFAULT) [address] [place] [address] WBC Urine 0 - 5 Normal 0 - 5 [facility] Comment on above: Performed By: #### U [id number] #### [facility] (DEFAULT) [address] [place] [address] Yeast/Fungi PRESENT Abnormal ABSENT [facility] Comment on above: Performed By: #### U [id number] #### [facility] (DEFAULT) [address] [place] [address] Appearance (U) Clear Clear [facility] Bacteria LM Ql (Urine sed) PRESENT Abnormal ABSENT [facility] Color (U) Yellow Yellow [facility] Epithelial cells.squamous LM Ql (Urine sed) 0-2/hpf 0-2/hpf, 3-5/hpf = 1+ [facility] Glucose Test strip (U) [Mass/Vol] Negative Negative [facility] Hyaline casts (Urine sed) [#/Area] 0 - 2 Abnormal (none) /LPF [facility] Interpretation and review of laboratory results Abnormal [facility] Ketones (U) [Mass/Vol] Negative Negative [facility] Leukocyte esterase Test strip Ql (U) Trace Abnormal Negative [facility] Nitrite Ql (U) Positive Abnormal Negative [facility] pH (U) 7.0 [pH] 5.0 - 7.0 [facility] Protein (U) [Mass/Vol] Negative [facility] RBC (U) [#/Vol] [facility] RBC LM.HPF (Urine sed) [#/Area] 0-2 [facility] Specific gravity (U) [Rel density] 1.010 1.001 - 1.035 [facility] Urobilinogen (U) [Mass/Vol] 0.2 E.U./dL 0.2 E.U/dL, 1.0 E.U/dL [facility] WBC LM.HPF (Urine sed) [#/Area] 0 - 5 [facility] Yeast/Fungi PRESENT Abnormal ABSENT [facility] XR CHEST PORTABLEon 10-15-19 XR CHEST [...] reviewed and approved this report. Normal [facility] XR Cervical spine 4 Viewson 10-14-2022 [...] I have reviewed and approved this report. [facility] XR SPINE CERVICAL 4 VIEWSon 10-14-2022 [...] reviewed and approved this report. Normal [facility] Basic Metabolic Profon 10-13 Anion gap [Moles/Vol] 11 mmol/L Normal 9-17 [facility] Comment on above: Performed By: #### C P, CBC #### [facility] [address] [place] [address] Accounts Supervisor: Collette Willard MD BUN/CRE Ratio 43 High 9-20 [facility] Comment on above: Performed By: #### C P, CBC #### [facility] [address] [place] [address] Accounts Supervisor: Collette Willard MD Calcium [Mass/Vol] 10.3 mg/dL Normal 8.6-10.4 [facility] Comment on above: Performed By: #### C P, CBC #### [facility] [address] [place] [address] Accounts Supervisor: Collette Willard MD Chloride [Moles/Vol] 103 mmol/L Normal 98-107 [facility] Comment on above: Performed By: #### C P, CBC #### [facility] [address] [place] [address] Accounts Supervisor: Collette Willard MD CO2 [Moles/Vol] 31 mmol/L Normal 20-31 [facility] Comment on above: Performed By: #### C P, CBC #### [facility] [address] [place] [address] Accounts Supervisor: Collette Willard MD Creatinine [Mass/Vol] 0.3 mg/dL Low 0.5-0.9 [facility] Comment on above: Performed By: #### C P, CBC #### [facility] [address] [place] [address] Accounts Supervisor: Collette Willard MD GFR/1.73 sq M.predicted among non-blacks MDRD (S/P/Bld) [Vol rate/Area] mL/min/{1.73_m2} Normal >60 [facility] Comment on above: Result Comment: These results [...] Performed By: #### C P, CBC #### [facility] [address] [place] [address] Accounts Supervisor: Collette Willard MD Glucose [Mass/Vol] 80 mg/dL Normal 70-99 [facility] Comment on above: Performed By: #### C P, CBC #### [facility] [address] [place] [address] Accounts Supervisor: Collette Willard MD Potassium [Moles/Vol] 3.4 mmol/L Low 3.7-5.3 [facility] Comment on above: Performed By: #### C P, CBC #### [facility] [address] [place] [address] Accounts Supervisor: Collette Willard MD Sodium [Moles/Vol] 145 mmol/L High 135-144 [facility] Comment on above: Performed By: #### C P, CBC #### [facility] [address] [place], [place] [id number] Accounts Supervisor: Collette Willard MD Urea nitrogen [Mass/Vol] 13 mg/dL Normal 8-23 [facility] Comment on above: Performed By: #### C P, CBC #### [facility] [address] [place] [address] Accounts Supervisor: Collette Willard MD CBC with Diffon 10-13-2022 Abs. Basophil 0.00 k/uL Normal 0.0-0.2 [facility] Comment on above: Performed By: #### C P, CBC #### [facility] [address] [place] [address] Dr[place], [place] [id number] Accounts Supervisor: Collette Willard MD Abs.Imm.Granulocyte 0.08 k/uL Normal 0.00-0.30 [facility] Comment on above: Performed By: #### C P, CBC #### [address] [place] [address] Accounts Supervisor: Collette Willard MD Abs.Neutrophil (Seg) 6.32 k/uL Normal 1.50-8.10 [facility] Comment on above: Performed By: #### C P, CBC #### [facility] [address] [place], [place] 4897383 Accounts Supervisor: Collette Willard MD Basophils/100 WBC (Bld) 0 % Normal 0-2 [facility] Comment on above: Performed By: #### C P, CBC #### [facility] [address] [place] [address] Accounts Supervisor: Collette Willard MD Eosinophils (Bld) [#/Vol] 0.23 10*3/uL Normal 0.00-0.44 [facility] Comment on above: Performed By: #### C P, CBC #### [facility] [address] [place], [facility] Accounts Supervisor: Collette Willard MD Eosinophils/100 WBC (Bld) 3 % Normal 1-4 [facility] Comment on above: Performed By: #### C P, CBC #### [facility] [address] [place], [place] [address] Accounts Supervisor: Collette Willard MD Immature granulocytes/100 WBC (Bld) 1 % High 0 [facility] Comment on above: Performed By: #### C P, CBC #### [facility] [address] [place] [id number] Accounts Supervisor: Collette Willard MD Lymphocytes (Bld) [#/Vol] 0.86 10*3/uL Low 1.10-3.70 [facility] Comment on above: Performed By: #### C P, CBC #### [facility] [address] [place], [place] [address] Accounts Supervisor: Collette Willard MD Lymphocytes/100 WBC (Bld) 11 % Low 24-43 [facility] Comment on above: Performed By: #### C P, CBC #### [facility] [address] [place] [address] Accounts Supervisor: Collette Willard MD Monocytes (Bld) [#/Vol] 0.31 10*3/uL Normal 0.10-1.20 [facility] Comment on above: Performed By: #### C P, CBC #### [facility] [address] [place] [id number] Accounts Supervisor: Collette Willard MD Monocytes/100 WBC (Bld) 4 % Normal 3-12 [facility] Comment on above: Performed By: #### C P, CBC #### [facility] [address] [place], [facility] Accounts Supervisor: Collette Willard MD Morphology Demetrio (Bld) [Interp] Normal Normal [facility] Comment on above: Performed By: #### C P, CBC #### [facility] [address] [place], [place] [id number] Accounts Supervisor: Collette Willard MD Neutrophil (Seg) 81 % High 36-65 [facility] Comment on above: Performed By: #### C P, CBC #### [facility] [address] [place], [place] [id number] Accounts Supervisor: Collette Willard MD Erythrocyte distribution width (RBC) [Ratio] 13.7 % Normal 11.8-14.4 [facility] Comment on above: Performed By: #### C P, CBC #### [address] [place] [address] Accounts Supervisor: Collette Willard MD Hematocrit (Bld) [Volume fraction] 43.4 % Normal 36.3-47.1 [facility] Comment on above: Performed By: #### C P, CBC #### [address] [place] [address] Accounts Supervisor: Collette Willard MD Hemoglobin (Bld) [Mass/Vol] 13.5 g/dL Normal 11.9-15.1 [facility] Comment on above: Performed By: #### C P, CBC #### [address] [place] [address] Accounts Supervisor: Collette Willard MD MCH (RBC) [Entitic mass] 30.4 pg Normal 25.2-33.5 [facility] Comment on above: Performed By: #### C P, CBC #### [address] [place] [address] Accounts Supervisor: Collette Willard MD MCHC (RBC) [Mass/Vol] 31.1 g/dL Normal 28.4-34.8 [facility] Comment on above: Performed By: #### C P, CBC #### [facility] [address] [place] [address] Dr. [place], [place] [address] Accounts Supervisor: Collette Willard MD MCV (RBC) [Entitic vol] 97.7 fL Normal 82.6-102.9 [facility] Comment on above: Performed By: #### C P, CBC #### [address] [place], [place] [address] Accounts Supervisor: Collette Willard MD NRBC Automated 0.0 per 100 WBC Normal 0.0 [facility] Comment on above: Performed By: #### C P, CBC #### [address] [place], [facility] Accounts Supervisor: Collette Willard MD Platelet mean volume (Bld) [Entitic vol] 9.3 fL Normal 8.1-13.5 [facility] Comment on above: Performed By: #### C P, CBC #### [address] [place], [facility] Accounts Supervisor: Collette Willard MD Platelets (Bld) [#/Vol] 184 10*3/uL Normal 138-453 [facility] Comment on above: Performed By: #### C P, CBC #### [address] [place], [place] [address] Accounts Supervisor: Collette Willard MD RBC (Bld) [#/Vol] 4.44 10*6/uL Normal 3.95-5.11 [facility] Comment on above: Performed By: #### C P, CBC #### [address] [place] [address] Accounts Supervisor: Collette Willard MD WBC (Bld) [#/Vol] 7.8 10*3/uL Normal 3.5-11.3 [facility] Comment on above: Performed By: #### C P, CBC #### [facility] [address] [place], [place] [address] Accounts Supervisor: Collette Willard MD Abs. Basophil 0.00 k/uL Normal 0.0-0.2 [facility] Comment on above: Performed By: #### B C #### [address] [place], [place] [address] Accounts Supervisor: Collette Willard MD Abs.Imm.Granulocyte 0.50 k/uL High 0.00-0.30 [facility] Comment on above: Performed By: #### B C #### [address] [place], [place] [address] Accounts Supervisor: Collette Willard MD Abs.Neutrophil (Seg) 6.56 k/uL Normal 1.50-8.10 [facility] Comment on above: Performed By: #### B C #### [address] [place], [facility] Accounts Supervisor: Collette Willard MD Basophils/100 WBC (Bld) 0 % Normal 0-2 [facility] Comment on above: Performed By: #### B C #### [address] [place], [place] [address] Accounts Supervisor: Collette Willard MD Eosinophils (Bld) [#/Vol] 0.00 10*3/uL Normal 0.00-0.44 [facility] Comment on above: Performed By: #### B C #### [address] [place], [facility] Accounts Supervisor: Collette Willard MD Eosinophils/100 WBC (Bld) 0 % Low 1-4 [facility] Comment on above: Performed By: #### B C #### [address] [place], [facility] Accounts Supervisor: Collette Willard MD Immature granulocytes/100 WBC (Bld) 6 % High 0 [facility] Comment on above: Performed By: #### B C #### [facility] [address] [place], [place] 3592383 Accounts Supervisor: Collette Willard MD Lymphocytes (Bld) [#/Vol] 0.91 10*3/uL Low 1.10-3.70 [facility] Comment on above: Performed By: #### B C #### [facility] [address] [place], [place] 8986783 Accounts Supervisor: Collette Willard MD Lymphocytes/100 WBC (Bld) 11 % Low 24-43 [facility] Comment on above: Performed By: #### B C #### [facility] [address] [place], [place] 3371483 Accounts Supervisor: Collette Willard MD Monocytes (Bld) [#/Vol] 0.33 10*3/uL Normal 0.10-1.20 [facility] Comment on above: Performed By: #### B C #### [facility] [address] [place], [place] 9492283 Accounts Supervisor: Collette Willard MD Monocytes/100 WBC (Bld) 4 % Normal 3-12 [facility] Comment on above: Performed By: #### B C #### [facility] [address] [place], [place] [id number] Accounts Supervisor: Collette Willard MD Morphology Demetrio (Bld) [Interp] Normal Normal [facility] Comment on above: Performed By: #### B C #### [facility] [address] [place], [place] 0224583 Accounts Supervisor: Collette Willard MD Neutrophil (Seg) 79 % High 36-65 [facility] Comment on above: Performed By: #### B C #### [facility] [address] [place], [place] 4509483 Accounts Supervisor: Collette Willard MD Erythrocyte distribution width (RBC) [Ratio] 13.8 % Normal 11.8-14.4 [facility] Comment on above: Performed By: #### B C #### [address] [place], [place] 9174583 Accounts Supervisor: Collette Willard MD Hematocrit (Bld) [Volume fraction] 42.1 % Normal 36.3-47.1 [facility] Comment on above: Performed By: #### B C #### [address] [place], [place] 1145783 Accounts Supervisor: Collette Willard MD Hemoglobin (Bld) [Mass/Vol] 12.9 g/dL Normal 11.9-15.1 [facility] Comment on above: Performed By: #### B C #### [address] [place], [place] 5251383 Accounts Supervisor: Collette Willard MD MCH (RBC) [Entitic mass] 30.3 pg Normal 25.2-33.5 [facility] Comment on above: Performed By: #### B C #### [address] [place], [place] 7643883 Accounts Supervisor: Collette Willard MD MCHC (RBC) [Mass/Vol] 30.6 g/dL Normal 28.4-34.8 [facility] Comment on above: Performed By: #### B C #### [address] [place], [place] 9322683 Accounts Supervisor: Collette Willard MD MCV (RBC) [Entitic vol] 98.8 fL Normal 82.6-102.9 [facility] Comment on above: Performed By: #### B C #### [address] [place], [place] [id number] Accounts Supervisor: Collette Willard MD NRBC Automated 0.0 per 100 WBC Normal 0.0 [facility] Comment on above: Performed By: #### B C #### [facility] [address] [place], [place] [address] Accounts Supervisor: Collette Willard MD Platelet mean volume (Bld) [Entitic vol] 9.3 fL Normal 8.1-13.5 [facility] Comment on above: Performed By: #### B C #### [facility] [address] [place], [facility] Accounts Supervisor: Collette Willard MD Platelets (Bld) [#/Vol] 198 10*3/uL Normal 138-453 [facility] Comment on above: Performed By: #### B C #### [address] [place], [facility] Accounts Supervisor: Collette Willard MD RBC (Bld) [#/Vol] 4.26 10*6/uL Normal 3.95-5.11 [facility] Comment on above: Performed By: #### B C #### [address] [place], [place] 0221283 Accounts Supervisor: Collette Willard MD WBC (Bld) [#/Vol] 8.3 10*3/uL Normal 3.5-11.3 [facility] Comment on above: Performed By: #### B C #### [address] [place], [facility] Accounts Supervisor: Collette Willard MD Comp Metabolic Profon 2022 Albumin [Mass/Vol] 3.6 g/dL Normal 3.5-5.2 [facility] Comment on above: Performed By: #### C DP, CP #### [address] [place] [address] Accounts Supervisor: Collette Willard MD Albumin/Glob Ratio 1.4 Normal 1.0-2.5 [facility] Comment on above: Performed By: #### C DP, CP #### [facility] [address] [place], [place] [id number] Accounts Supervisor: Collette Willard MD Alkaline Phos 148 U/L High 35-104 [facility] Comment on above: Performed By: #### C DP, CP #### [facility] [address] [place], [place] [id number] Accounts Supervisor: Collette Willard MD ALT [Catalytic activity/Vol] 56 U/L High 5-33 [facility] Comment on above: Performed By: #### C DP, CP #### [facility] [address] [place], [place] 9333983 Accounts Supervisor: Collette Willard MD Anion gap [Moles/Vol] 10 mmol/L Normal 9-17 [facility] Comment on above: Performed By: #### C DP, CP #### [facility] [address] [place], [place] 4795383 Accounts Supervisor: Collette Willard MD AST [Catalytic activity/Vol] 39 U/L High <32 [facility] Comment on above: Performed By: #### C DP, CP #### [facility] [address] [place], [place] 1951483 Accounts Supervisor: Collette Willard MD Bilirubin [Mass/Vol] 0.3 mg/dL Normal 0.3-1.2 [facility] Comment on above: Performed By: #### C DP, CP #### [facility] [address] [place], [place] [id number] Accounts Supervisor: Collette Willard MD BUN/CRE Ratio 47 High 9-20 [facility] Comment on above: Performed By: #### C DP, CP #### [facility] [address] [place], [place] [id number] Accounts Supervisor: Collette Willard MD Calcium [Mass/Vol] 10.3 mg/dL Normal 8.6-10.4 [facility] Comment on above: Performed By: #### C DP, CP #### [facility] [address] [place], [place] 6608183 Accounts Supervisor: Collette Willard MD Chloride [Moles/Vol] 104 mmol/L Normal 98-107 [facility] Comment on above: Performed By: #### C DP, CP #### [facility] [address] [place], [place] 2658283 Accounts Supervisor: Collette Willard MD CO2 [Moles/Vol] 30 mmol/L Normal 20-31 [facility] Comment on above: Performed By: #### C DP, CP #### [facility] [address] [place], [place] 5695883 Accounts Supervisor: Collette Willard MD Creatinine [Mass/Vol] 0.3 mg/dL Low 0.5-0.9 [facility] Comment on above: Performed By: #### C DP, CP #### [facility] [address] [place], [place] 2519183 Accounts Supervisor: Collette Willard MD GFR/1.73 sq M.predicted among non-blacks MDRD (S/P/Bld) [Vol rate/Area] mL/min/{1.73_m2} Normal >60 [facility] Comment on above: Result Comment: These results [...] Performed By: #### C DP, CP #### [facility] [address] [place] [address] Accounts Supervisor: Collette Willard MD Glucose [Mass/Vol] 108 mg/dL High 70-99 [facility] Comment on above: Performed By: #### C DP, CP #### [facility] [address] [place] [address] Accounts Supervisor: Collette Willard MD Potassium [Moles/Vol] 3.6 mmol/L Low 3.7-5.3 [facility] Comment on above: Performed By: #### C DP, CP #### [facility] [address] [place] [address] Dr[place], [place] 5291483 Accounts Supervisor: Collette Willard MD Protein [Mass/Vol] 6.2 g/dL Low 6.4-8.3 [facility] Comment on above: Performed By: #### C DP, CP #### [address] [place] [address] Accounts Supervisor: Collette Willard MD Sodium [Moles/Vol] 144 mmol/L Normal 135-144 [facility] Comment on above: Performed By: #### C DP, CP #### [address] [place], [place] 0953183 Accounts Supervisor: Collette Willard MD Urea nitrogen [Mass/Vol] 14 mg/dL Normal 8-23 [facility] Comment on above: Performed By: #### C DP, CP #### [address] [place] [address] Accounts Supervisor: Collette Willard MD MRI LUMBAR SPINE WO [...] Kendell Echols MD 10/13/22 Final result Normal [facility] MRI THORACIC SPINE WO CONTRA STon 10-13-2022 [...] Kendell Echols MD 10/13/22 Final result Normal [facility] PTon 10-13-2022 INR Coag (PPP) [Relative time] 0.9 {INR} Normal [facility] Comment on above: Result Comment: Therapeutic Range: Moderate Anticoagulant Intensity: INR = 2.0-3.0 High Anticoagulant Intensity: INR = 2.5-3.5 Performed By: #### C P, CBC #### [facility] [address] [place] [address] Accounts Supervisor: Collette Willard MD PT Coag (PPP) [Time] 12.1 s Normal 11.9-14.8 [facility] Comment on above: Performed By: #### C P, CBC #### [address] [place] [address] Accounts Supervisor: Collette Willard MD Portable XR Chest Viewson Radiology Study observation (narrative) [facility] XR Cervical spine 4 Viewson 10-13-2022 Radiology Study observation (narrative) [facility] CBCon 10-06-2022 Erythrocyte distribution width (RBC) [Ratio] 13.9 % Normal 11.8-14.4 [facility] Comment on above: Performed By: #### C P, CBC #### [address] [place] [address] Accounts Supervisor: Collette Willard MD Hematocrit (Bld) [Volume fraction] 42.2 % Normal 36.3-47.1 [facility] Comment on above: Performed By: #### C P, CBC #### [facility] [address] [place] [address] [place] [address] Accounts Supervisor: Collette Willard MD Hemoglobin (Bld) [Mass/Vol] 13.3 g/dL Normal 11.9-15.1 [facility] Comment on above: Performed By: #### C P, CBC #### [facility] [address] [place] [address] Accounts Supervisor: Collette Willard MD MCH (RBC) [Entitic mass] 30.8 pg Normal 25.2-33.5 [facility] Comment on above: Performed By: #### C P, CBC #### [address] [place], [place] [address]25[address]83 Accounts Supervisor: Collette Willard MD MCHC (RBC) [Mass/Vol] 31.5 g/dL Normal 28.4-34.8 [facility] Comment on above: Performed By: #### C P, CBC #### [address] [place] [id number] Accounts Supervisor: Collette Willard MD MCV (RBC) [Entitic vol] 97.7 fL Normal 82.6-102.9 [facility] Comment on above: Performed By: #### C P, CBC #### [address] [place] [id number] Accounts Supervisor: Collette Willard MD NRBC Automated 0.0 per 100 WBC Normal 0.0 [facility] Comment on above: Performed By: #### C P, CBC #### [address] [place], [facility] Accounts Supervisor: Collette Willard MD Platelet mean volume (Bld) [Entitic vol] 10.8 fL Normal 8.1-13.5 [facility] Comment on above: Performed By: #### C P, CBC #### [address] [place], [facility] Accounts Supervisor: Collette Willard MD Platelets (Bld) [#/Vol] 133 10*3/uL Low 138-453 [facility] Comment on above: Performed By: #### C P, CBC #### [address] [place] [address] Accounts Supervisor: Collette Willard MD RBC (Bld) [#/Vol] 4.32 10*6/uL Normal 3.95-5.11 [facility] Comment on above: Performed By: #### C P, CBC #### [facility] [address] [place], [place] 0774183 Accounts Supervisor: Collette Willard MD WBC (Bld) [#/Vol] 14.9 10*3/uL High 3.5-11.3 [facility] Comment on above: Performed By: #### C P, CBC #### [facility] [address] [place], [place] 4698883 Accounts Supervisor: Collette Willard MD Comp Metabolic Profon 2022 Albumin [Mass/Vol] 3.4 g/dL Low 3.5-5.2 [facility] Comment on above: Performed By: #### C P, CBC #### [address] [place], [place] 3700883 Accounts Supervisor: Collette Willard MD Albumin/Glob Ratio 1.2 Normal 1.0-2.5 [facility] Comment on above: Performed By: #### C P, CBC #### [address] [place], [place] 9585083 Accounts Supervisor: Collette Willard MD Alkaline Phos 135 U/L High 35-104 [facility] Comment on above: Performed By: #### C P, CBC #### [facility] [address] [place] [address] Dr[place], [place] 1617583 Accounts Supervisor: Collette Willard MD ALT [Catalytic activity/Vol] 62 U/L High 5-33 [facility] Comment on above: Performed By: #### C P, CBC #### [address] [place] [address] Accounts Supervisor: Collette Willard MD Anion gap [Moles/Vol] 9 mmol/L Normal 9-17 [facility] Comment on above: Performed By: #### C P, CBC #### [facility] [address] [place], [place] 3828483 Accounts Supervisor: Collette Willard MD AST [Catalytic activity/Vol] 41 U/L High <32 [facility] Comment on above: Performed By: #### C P, CBC #### [facility] [address] [place], [place] 3569283 Accounts Supervisor: Collette Willard MD Bilirubin [Mass/Vol] 0.3 mg/dL Normal 0.3-1.2 [facility] Comment on above: Performed By: #### C P, CBC #### [facility] [address] [place], [place] 0603083 Accounts Supervisor: Collette Willard MD BUN/CRE Ratio 33 High 9-20 [facility] Comment on above: Performed By: #### C P, CBC #### [facility] [address] [place], [place] 6252283 Accounts Supervisor: Collette Willard MD Calcium [Mass/Vol] 10.6 mg/dL High 8.6-10.4 [facility] Comment on above: Performed By: #### C P, CBC #### [facility] [address] [place], [place] [id number] Accounts Supervisor: Collette Willard MD Chloride [Moles/Vol] 101 mmol/L Normal 98-107 [facility] Comment on above: Performed By: #### C P, CBC #### [facility] [address] [place], [place] [id number] Accounts Supervisor: Collette Willard MD CO2 [Moles/Vol] 32 mmol/L High 20-31 [facility] Comment on above: Performed By: #### C P, CBC #### [facility] [address] [place] [address] Accounts Supervisor: Collette Willard MD Creatinine [Mass/Vol] 0.4 mg/dL Low 0.5-0.9 [facility] Comment on above: Performed By: #### C P, CBC #### [facility] [address] [place] [address] Accounts Supervisor: Collette Willard MD GFR/1.73 sq M.predicted among non-blacks MDRD (S/P/Bld) [Vol rate/Area] mL/min/{1.73_m2} Normal >60 [facility] Comment on above: Result Comment: These results [...] Performed By: #### C P, CBC #### [facility] [address] [place] [address] Accounts Supervisor: Collette Willard MD Glucose [Mass/Vol] 97 mg/dL Normal 70-99 [facility] Comment on above: Performed By: #### C P, CBC #### [facility] [address] [place] [address] Accounts Supervisor: Collette Willard MD Potassium [Moles/Vol] 4.0 mmol/L Normal 3.7-5.3 [facility] Comment on above: Performed By: #### C P, CBC #### [facility] [address] [place] [address] Accounts Supervisor: Collette Willard MD Protein [Mass/Vol] 6.2 g/dL Low 6.4-8.3 [facility] Comment on above: Performed By: #### C P, CBC #### [facility] [address] [place] [address] Accounts Supervisor: Collette Willard MD Sodium [Moles/Vol] 142 mmol/L Normal 135-144 [facility] Comment on above: Performed By: #### C P, CBC #### [facility] [address] [place] [address] Accounts Supervisor: Collette Willard MD Urea nitrogen [Mass/Vol] 13 mg/dL Normal 8- [facility] Comment on above: Performed By: #### C P, CBC #### [facility] [address] [place] [address] Accounts Supervisor: Collette Willard MD Cult,Bloodon 10-06-2022 Cult,Blood Specimen Description .BLOOD Special Requests 3ML LH Culture NO GROWTH 5 DAYS Report Status FINAL 10/06/2022 [facility] Comment on above: Performed By: #### B C #### [facility] [address] [place] [address] Accounts Supervisor: Collette Willard MD Cult,Blood Specimen Description .BLOOD Special Requests 3ML R UA Culture NO GROWTH 5 DAYS Report Status FINAL 10/06/2022 [facility] Comment on above: Performed By: #### B C #### [facility] [address] [place] [address] Accounts Supervisor: Collette Willard MD CBC with Auto Differentialon 10-03-2022 Basophils (Bld) [#/Vol] 0.08 10*3/uL [facility] Basophils/100 WBC (Bld) 1 % 0 - 2 % [facility] Eosinophils (Bld) [#/Vol] [facility] Eosinophils/100 WBC (Bld) 0 % Low 1 - 4 % [facility] Erythrocyte distribution width (RBC) [Ratio] 13.9 % 11.8 - 14.4 % [facility] Hematocrit (Bld) [Volume fraction] 46.6 % 36.3 - 47.1 % [facility] Hemoglobin (Bld) [Mass/Vol] 14.2 g/dL 11.9 - 15.1 g/dL [facility] Immature granulocytes (Bld) [#/Vol] 0.32 10*3/uL High [facility] Immature granulocytes/100 WBC (Bld) 2 % High 0 [facility] Interpretation and review of laboratory results Abnormal [facility] Lymphocytes/100 WBC (Bld) 9 % Low 24 - 43 % [facility] Lymphocytes/100 WBC (Bld) 1.30 % [facility] MCH (RBC) [Entitic mass] 31.1 pg 25.2 - 33.5 pg [facility] MCHC (RBC) [Mass/Vol] 30.5 g/dL 28.4 - 34.8 g/dL [facility] MCV (RBC) [Entitic vol] 102.0 fL 82.6 - 102.9 fL [facility] Monocytes/100 WBC (Bld) 6 % 3 - 12 % [facility] Monocytes/100 WBC (Bld) 0.87 % [facility] Neutrophils/100 WBC (Bld) 82 % High 36 - 65 % [facility] Nucleated RBC/100 WBC (Bld) [Ratio] 0.0 % 0.0 per 100 WBC [facility] Platelet mean volume (Bld) [Entitic vol] 10.5 fL 8.1 - 13.5 fL [facility] Platelets (Bld) [#/Vol] 156 10*3/uL [facility] RBC (Bld) [#/Vol] 4.57 10*6/uL 3.95 - 5.1 1 m/uL [facility] Segmented neutrophils/100 WBC (Bld) 11.43 % High [facility] WBC other (Bld) [#/Vol] 14.0 High [facility] CBC with Diffon 10-03-2022 Abs. Basophil 0.08 k/uL Normal 0.00-0.20 [facility] Comment on above: Performed By: #### B C #### [facility] [address] [place] [address] Accounts Supervisor: Collette Willard MD Abs. Eosinophil <0.03 Normal 0.00-0.44 [facility] Comment on above: Performed By: #### B C #### [facility] [address] [place], [place] 6890983 Accounts Supervisor: Collette Willard MD Abs.Imm.Granulocyte 0.32 k/uL High 0.00-0.30 [facility] Comment on above: Performed By: #### B C #### [facility] [address] [place], [facility]83 Accounts Supervisor: Collette Willard MD Abs.Neutrophil (Seg) 11.43 k/uL High 1.50-8.10 [facility] Comment on above: Performed By: #### B C #### [address] [place], [facility]83 Accounts Supervisor: Collette Willard MD Basophils/100 WBC (Bld) 1 % Normal 0-2 [facility] Comment on above: Performed By: #### B C #### [address] [place], [facility]83 Accounts Supervisor: Collette Willard MD Eosinophils/100 WBC (Bld) 0 % Low 1-4 [facility] Comment on above: Performed By: #### B C #### [address] [place], [facility]83 Accounts Supervisor: Collette Willard MD Erythrocyte distribution width (RBC) [Ratio] 13.9 % Normal 11.8-14.4 [facility] Comment on above: Performed By: #### B C #### [facility] [address] [place] [address] Dr. [place], [facility]83 Accounts Supervisor: Collette Willard MD Hematocrit (Bld) [Volume fraction] 46.6 % Normal 36.3-47.1 [facility] Comment on above: Performed By: #### B C #### [address] [place], [facility] Accounts Supervisor: Collette Willard MD Hemoglobin (Bld) [Mass/Vol] 14.2 g/dL Normal 11.9-15.1 [facility] Comment on above: Performed By: #### B C #### [facility] [address] [place] [address] Accounts Supervisor: Collette Willard MD Immature granulocytes/100 WBC (Bld) 2 % High 0 [facility] Comment on above: Performed By: #### B C #### [facility] [address] [place], [facility]83 Accounts Supervisor: Collette Willard MD Lymphocytes (Bld) [#/Vol] 1.30 10*3/uL Normal 1.10-3.70 [facility] Comment on above: Performed By: #### B C #### [address] [place], [facility] Accounts Supervisor: Collette Willard MD Lymphocytes/100 WBC (Bld) 9 % Low 24-43 [facility] Comment on above: Performed By: #### B C #### [address] [place], [place] [id number] Accounts Supervisor: Collette Willard MD MCH (RBC) [Entitic mass] 31.1 pg Normal 25.2-33.5 [facility] Comment on above: Performed By: #### B C #### [address] [place], [facility]83 Accounts Supervisor: Collette Willard MD MCHC (RBC) [Mass/Vol] 30.5 g/dL Normal 28.4-34.8 [facility] Comment on above: Performed By: #### B C #### [address] [place] [address] Accounts Supervisor: Collette Willard MD MCV (RBC) [Entitic vol] 102.0 fL Normal 82.6-102.9 [facility] Comment on above: Performed By: #### B C #### [facility] [address] [place], [place] 8242583 Accounts Supervisor: Collette Willard MD Monocytes (Bld) [#/Vol] 0.87 10*3/uL Normal 0.10-1.20 [facility] Comment on above: Performed By: #### B C #### [facility] [address] [place], [place] 9392683 Accounts Supervisor: Collette Willard MD Monocytes/100 WBC (Bld) 6 % Normal 3-12 [facility] Comment on above: Performed By: #### B C #### [facility] [address] [place], [facility]83 Accounts Supervisor: Collette Willard MD Neutrophil (Seg) 82 % High 36-65 [facility] Comment on above: Performed By: #### B C #### [facility] [address] [place], [place] 3829483 Accounts Supervisor: Collette Willard MD NRBC Automated 0.0 per 100 WBC Normal 0.0 [facility] Comment on above: Performed By: #### B C #### [address] [place], [place] 9022983 Accounts Supervisor: Collette Willard MD Platelet mean volume (Bld) [Entitic vol] 10.5 fL Normal 8.1-13.5 [facility] Comment on above: Performed By: #### B C #### [facility] [address] [place], [place] 5849483 Accounts Supervisor: Collette Willard MD Platelets (Bld) [#/Vol] 156 10*3/uL Normal 138-453 [facility] Comment on above: Performed By: #### B C #### [facility] [address] [place], [place] 0617283 Accounts Supervisor: Collette Willard MD RBC (Bld) [#/Vol] 4.57 10*6/uL Normal 3.95-5.11 [facility] Comment on above: Performed By: #### B C #### [facility] [address] [place], [place] 2380583 Accounts Supervisor: Collette Willard MD WBC (Bld) [#/Vol] 14.0 10*3/uL High 3.5-11.3 [facility] Comment on above: Performed By: #### B C #### [facility] [address] [place] [address] Accounts Supervisor: Collette Willard MD Cult,Urineon 10-02-2022 Cult,Urine Specimen Description .CLEAN CATCH URINE Culture NO GROWTH Report Status FINAL 10/02/2022 Normal [facility] Comment on above: Performed By: #### B C #### [facility] [address] [place] [address] Accounts Supervisor: Collette Willard MD Procalcitoninon 10-01-2022 Procalcitonin 0.06 ng/mL Normal <0.09 [facility] Comment on above: Result Comment: Suspected [...] entered into the Change in Procalcitonin Calculator (www.kljdak-msv-xkkvrdquuk.com) to determine the patient's Mortality Risk Prognosis In healthy neonates, plasma Procalcitonin (PCT) concentrations increase gradually after , reaching peak values at about 24 hours of age then decrease to normal values below 0.5 ng/mL by 48-72 hours of age. Performed By: #### P RCAL #### [facility] [address] [id number] Accounts Supervisor: Chriss Townsend MD Procalcitonin [Mass/Vol] 0.06 ng/mL NINF - 0.09 ng/mL [facility] Comment on above: Suspected Sepsis: <0.50 [...] entered into the Change in Procalcitonin Calculator (www.iepapz-zwj-qbmyrvwxpv.[employer]) to determine the patient's Mortality Risk Prognosis In healthy neonates, plasma Procalcitonin (PCT) concentrations increase gradually after , reaching peak values at about 24 hours of age then decrease to normal values below 0.5 ng/mL by 48-72 hours of age. [facility] Urinalysison 10-01-2022 Bilirubin Ql (U) Negative NEGATIVE [facility] Clarity (U) Clear Clear [facility] Color (U) Yellow Yellow [facility] Glucose Test strip (U) [Mass/Vol] Negative NEGATIVE [facility] Hemoglobin Auto test strip Ql (U) Negative NEGATIVE [facility] Ketones (U) [Mass/Vol] Negative NEGATIVE [facility] Leukocyte esterase Test strip Ql (U) Negative NEGATIVE [facility] Nitrite Ql (U) Negative NEGATIVE [facility] pH (U) 6.5 [pH] 5.0 - 9.0 [facility] Protein (U) [Mass/Vol] Negative NEGATIVE [facility] Specific gravity (U) [Rel density] 1.010 1.010 - 1.020 [facility] Urobilinogen Qn (U) Normal Normal [facility] Urinalysis, Routineon 2022 Bilirubin, SemiQt,Ur Negative Normal NEG [facility] Comment on above: Performed By: #### B C #### [facility] [address] [place] [address] Accounts Supervisor: Collette Willard MD Blood, Urine Negative Normal NEG [facility] Comment on above: Performed By: #### B C #### [facility] [address] [place] [address] Accounts Supervisor: Collette Willard MD Clarity (U) Clear Normal CLEAR [facility] Comment on above: Performed By: #### B C #### [facility] [address] [place] [address] Accounts Supervisor: Collette Willard MD Color (U) Yellow Normal YEL [facility] Comment on above: Performed By: #### B C #### [facility] [address] [place] [address] Accounts Supervisor: Collette Willard MD Glucose Ql (U) Negative Normal NEG [facility] Comment on above: Performed By: #### B C #### [facility] [address] [place], [place] [id number] Accounts Supervisor: Collette Willard MD Ketones Ql (U) Negative Normal NEG [facility] Comment on above: Performed By: #### B C #### [facility] [address] [place] [address] Accounts Supervisor: Collette Willard MD Leukocyte esterase Test strip Ql (U) Negative Normal NEG [facility] Comment on above: Performed By: #### B C #### [facility] [address] [place] [address] Accounts Supervisor: Collette Willard MD Nitrite,Ur Negative Normal NEG [facility] Comment on above: Performed By: #### B C #### [facility] [address] [place] [address] Accounts Supervisor: Collette Willard MD PH,Ur 6.5 Normal 5.0-9.0 [facility] Comment on above: Performed By: #### B C #### [facility] [address] [place], [place] [address] Accounts Supervisor: Collette Willard MD Protein Ql (U) Negative Normal NEG [facility] Comment on above: Performed By: #### B C #### [address] [place] [address] Accounts Supervisor: Collette Willard MD Spec. Brielle,Ur 1.010 Normal 1.010-1.020 [facility] Comment on above: Performed By: #### B C #### [facility] [address] [place] [address] Dr. [place], [place] [address] Accounts Supervisor: Collette Willard MD Urobilinogen,Ur Normal Normal NORM [facility] Comment on above: Performed By: #### B C #### [address] [place], [place] [address] Accounts Supervisor: Collette Willard MD CBC with Diffon 09-29-2022 Abs. Basophil 0.04 k/uL Normal 0.00-0.20 [facility] Comment on above: Performed By: #### B C #### [facility] [address] [place] [address] [place] [address] Accounts Supervisor: Collette Willard MD Abs. Eosinophil <0.03 Normal 0.00-0.44 [facility] Comment on above: Performed By: #### B C #### [facility] [address] [place] [address] Dr[place] [id number] Accounts Supervisor: Collette Willard MD Abs.Imm.Granulocyte 0.43 k/uL High 0.00-0.30 [facility] Comment on above: Performed By: #### B C #### [facility] [address] [place] [address] Dr. [place], [place] [id number] Accounts Supervisor: Collette Willard MD Abs.Neutrophil (Seg) 17.50 k/uL High 1.50-8.10 [facility] Comment on above: Performed By: #### B C #### [facility] [address] [place] [address] Dr. [place], [place] [id number] Accounts Supervisor: Collette Willard MD Basophils/100 WBC (Bld) 0 % Normal 0-2 [facility] Comment on above: Performed By: #### B C #### [address] [place], [place] 7619483 Accounts Supervisor: Collette Willard MD Eosinophils/100 WBC (Bld) 0 % Low 1-4 [facility] Comment on above: Performed By: #### B C #### [address] [place], [place] [id number] Accounts Supervisor: Collette Willard MD Erythrocyte distribution width (RBC) [Ratio] 13.9 % Normal 11.8-14.4 [facility] Comment on above: Performed By: #### B C #### [address] [place], [place] [id number] Accounts Supervisor: Collette Willard MD Hematocrit (Bld) [Volume fraction] 44.8 % Normal 36.3-47.1 [facility] Comment on above: Performed By: #### B C #### [address] [place] [address] Accounts Supervisor: Collette Willard MD Hemoglobin (Bld) [Mass/Vol] 14.3 g/dL Normal 11.9-15.1 [facility] Comment on above: Performed By: #### B C #### [facility] [address] [place], [place] 8276483 Accounts Supervisor: Collette Willard MD Immature granulocytes/100 WBC (Bld) 2 % High 0 [facility] Comment on above: Performed By: #### B C #### [facility] [address] [place] [address] Dr. [place], [place] [id number] Accounts Supervisor: Collette Willard MD Lymphocytes (Bld) [#/Vol] 0.80 10*3/uL Low 1.10-3.70 [facility] Comment on above: Performed By: #### B C #### [address] [place], [facility] Accounts Supervisor: Collette Willard MD Lymphocytes/100 WBC (Bld) 4 % Low 24-43 [facility] Comment on above: Performed By: #### B C #### [address] [place], [facility]83 Accounts Supervisor: Collette Willard MD MCH (RBC) [Entitic mass] 31.0 pg Normal 25.2-33.5 [facility] Comment on above: Performed By: #### B C #### [address] [place], [place] 1912083 Accounts Supervisor: Collette Willard MD MCHC (RBC) [Mass/Vol] 31.9 g/dL Normal 28.4-34.8 [facility] Comment on above: Performed By: #### B C #### [address] [place], [place] 1602183 Accounts Supervisor: Collette Willard MD MCV (RBC) [Entitic vol] 97.0 fL Normal 82.6-102.9 [facility] Comment on above: Performed By: #### B C #### [address] [place] [address] Accounts Supervisor: Collette Willard MD Monocytes (Bld) [#/Vol] 1.27 10*3/uL High 0.10-1.20 [facility] Comment on above: Performed By: #### B C #### [facility] [address] [place], [place] 9924583 Accounts Supervisor: Collette Willard MD Monocytes/100 WBC (Bld) 6 % Normal 3-12 [facility] Comment on above: Performed By: #### B C #### [facility] [address] [place], [place] 0993883 Accounts Supervisor: Collette Willard MD Neutrophil (Seg) 88 % High 36-65 [facility] Comment on above: Performed By: #### B C #### [facility] [address] [place], [place] 3708083 Accounts Supervisor: Collette Willard MD NRBC Automated 0.0 per 100 WBC Normal 0.0 [facility] Comment on above: Performed By: #### B C #### [facility] [address] [place] [address] Accounts Supervisor: Collette Willard MD Platelet mean volume (Bld) [Entitic vol] 10.6 fL Normal 8.1-13.5 [facility] Comment on above: Performed By: #### B C #### [address] [place] [address] Accounts Supervisor: Collette Willard MD Platelets (Bld) [#/Vol] 155 10*3/uL Normal 138-453 [facility] Comment on above: Performed By: #### B C #### [facility] [address] [place] [address] Dr. [place], [place] [id number] Accounts Supervisor: Collette Willard MD RBC (Bld) [#/Vol] 4.62 10*6/uL Normal 3.95-5.11 [facility] Comment on above: Performed By: #### B C #### [facility] [address] [place], [place] 8165983 Accounts Supervisor: Collette Willard MD WBC (Bld) [#/Vol] 20.1 10*3/uL High 3.5-11.3 [facility] Comment on above: Performed By: #### B C #### [facility] [address] [place], [place] [id number] Accounts Supervisor: Collette Willard MD Comp Metabolic Profon 2022 Albumin [Mass/Vol] 3.8 g/dL Normal 3.5-5.2 [facility] Comment on above: Performed By: #### B C #### [facility] [address] [place], [place] 1414483 Accounts Supervisor: Collette Willard MD Albumin/Glob Ratio 1.6 Normal 1.0-2.5 [facility] Comment on above: Performed By: #### B C #### [facility] [address] [place], [place] 3200883 Accounts Supervisor: Collette Willard MD Alkaline Phos 127 U/L High 35-104 [facility] Comment on above: Performed By: #### B C #### [facility] [address] [place], [place] 6174083 Accounts Supervisor: Collette Willard MD ALT [Catalytic activity/Vol] 55 U/L High 5-33 [facility] Comment on above: Performed By: #### B C #### [facility] [address] [place], [place] [id number] Accounts Supervisor: Collette Willard MD Anion gap [Moles/Vol] 10 mmol/L Normal 9-17 [facility] Comment on above: Performed By: #### B C #### [facility] [address] [place], [place] 0974483 Accounts Supervisor: Collette Willard MD AST [Catalytic activity/Vol] 37 U/L High <32 [facility] Comment on above: Performed By: #### B C #### [facility] [address] [place], [place] 6980883 Accounts Supervisor: Collette Willard MD Bilirubin [Mass/Vol] 0.4 mg/dL Normal 0.3-1.2 [facility] Comment on above: Performed By: #### B C #### [facility] [address] [place], [place] 5258083 Accounts Supervisor: Collette Willard MD BUN/CRE Ratio 48 High 9-20 [facility] Comment on above: Performed By: #### B C #### [facility] [address] [place], [place] 6344383 Accounts Supervisor: Collette Willard MD Calcium [Mass/Vol] 10.5 mg/dL High 8.6-10.4 [facility] Comment on above: Performed By: #### B C #### [facility] [address] [place], [place] 0387383 Accounts Supervisor: Collette Willard MD Chloride [Moles/Vol] 100 mmol/L Normal 98-107 [facility] Comment on above: Performed By: #### B C #### [facility] [address] [place], [place] 0864183 Accounts Supervisor: Collette Willard MD CO2 [Moles/Vol] 29 mmol/L Normal 20-31 [facility] Comment on above: Performed By: #### B C #### [facility] [address] [place], [place] 4583483 Accounts Supervisor: Collette Willard MD Creatinine [Mass/Vol] 0.4 mg/dL Low 0.50-0.90 [facility] Comment on above: Performed By: #### B C #### [facility] [address] [place], [place] 0466583 Accounts Supervisor: Collette Willard MD GFR/1.73 sq M.predicted among non-blacks MDRD (S/P/Bld) [Vol rate/Area] mL/min/{1.73_m2} Normal >60 [facility] Comment on above: Result Comment: These results [...] secretion. Performed By: #### B C #### [facility] [address] [place] [address] [place] [address] Accounts Supervisor: Collette Willard MD Glucose [Mass/Vol] 117 mg/dL High 70-99 [facility] Comment on above: Performed By: #### B C #### [facility] [address] [place] [address] Dr. [place], [place] 8644283 Accounts Supervisor: Collette Willard MD Potassium [Moles/Vol] 4.7 mmol/L Normal 3.7-5.3 [facility] Comment on above: Performed By: #### B C #### [facility] [address] [place] [address] Dr. [place], [place] 5758383 Accounts Supervisor: Collette Willard MD Protein [Mass/Vol] 6.2 g/dL Low 6.4-8.3 [facility] Comment on above: Performed By: #### B C #### [facility] [address] [place] [address] Dr. [place], [place] 1940783 Accounts Supervisor: Collette Willard MD Sodium [Moles/Vol] 139 mmol/L Normal 135-144 [facility] Comment on above: Performed By: #### B C #### [facility] [address] [place] [address] Dr. [place], [place] 3384983 Accounts Supervisor: Collette Willard MD Urea nitrogen [Mass/Vol] 19 mg/dL Normal 8-23 [facility] Comment on above: Performed By: #### B C #### [facility] [address] [place] [address] Accounts Supervisor: Collette Willard MD XR cervical spine 2Von 09-21 XR cervical spine 2V [facility] Main [address] [address] XRay Report Signed Patient: Miriam German MR#: [id number] : 1955 Acct:[id number] Age/Sex: 67 / F ADM Date: 09/17/22 Loc: Room: [address] [place] [address] Type: ADM IN Attending Dr: Tom Hill [...] William Auguste M.D.09/21/2022 12:09 PM Dictation Location: [place] [address] Transcribed By: [facility] 09/21/22 1209 Dictated By: William Auguste DO 09/21/22 1205 Signed By: 09/21/22 1209 Normal [facility] Alanine aminotransferase [En zymatic activity/volume] in Serum or PlasmaOrdered By: Tom Hill on 09-18-2022 ALT [Catalytic activity/Vol] 32 U/L [facility] Albumin [Mass/volume] in Ser um or Plasma by Bromocresol green (BCG) dye binding methoOrdered By: Tom Hill on 09-18-2022 Albumin BCG dye [Mass/Vol] 3.9 g/dL 3.5-5.7 [facility] Alkaline phosphatase [Enzyma tic activity/volume] in Serum or PlasmaOrdered By: Tom Hill on 09-18-2022 ALP [Catalytic activity/Vol] 93 U/L 34-104 [facility] Aspartate aminotransferase [ Enzymatic activity/volume] in Serum or PlasmaOrdered By: Tom Hill on 09-18-2022 AST [Catalytic activity/Vol] 27 U/L 13-39 [facility] Basophils Auto (Bld) [#/Vol] Ordered By: Tom Hill on 09-18-2022 Basophils (Bld) [#/Vol] 0.1 10*3/uL 0.0-0.2 [facility] Basophils/100 WBC Auto (Bld) Ordered By: Tom Sergio on 09-18-2022 Basophils/100 WBC (Bld) 0.6 % . [facility] Bilirubin.total [Mass/volume ] in Serum or PlasmaOrdered By: Tom Hill on 09-18-2022 Bilirubin [Mass/Vol] 0.3 mg/dL 0.3-1.0 [facility] Calcium [Mass/volume] in Ser um or PlasmaOrdered By: Tom Sergio on 09-18-2022 Calcium [Mass/Vol] 10.5 mg/dL 8.6-10.3 [facility] Carbon dioxide, total [Moles /volume] in Serum or PlasmaOrdered By: Tom Hill on 09-18-2022 CO2 [Moles/Vol] 32.3 mmol/L 21.0-31.0 [facility] Chloride [Moles/volume] in S jody or PlasmaOrdered By: Tom Hill on 09-18-2022 Chloride [Moles/Vol] 106 mmol/L 98-107 [facility] Complete Blood Count Auto Di ffon 09-18-2022 Basophils (Bld) [#/Vol] 0.1 10*3/uL Normal 0.0-0.2 [facility] Comment on above: Result Comment: PERF ORMED BY: [facility] [address] [place] [address] PATHOLOGIST NET ARCHITECT PETER RAYO M.D. Performed By: #### C MP, PAB, CBC #### [facility] [address] [place] [address] [place] Basophils/100 WBC (Bld) 0.6 % Normal . [facility] Comment on above: Performed By: #### C MP, PAB, CBC #### [facility] [address] [place] [address] [place] Eosinophils (Bld) [#/Vol] 0.0 10*3/uL Normal 0.0-0.45 [facility] Comment on above: Performed By: #### C MP, PAB, CBC #### [facility] [address] [place] [address] [place] Eosinophils/100 WBC (Bld) 0.0 % Normal . [facility] Comment on above: Performed By: #### C MP, PAB, CBC #### [address] Erythrocyte distribution width (RBC) [Ratio] 14.5 % Normal 11.9-15.3 [facility] Comment on above: Performed By: #### C MP, PAB, CBC #### [place] [address] [place] Hematocrit (Bld) [Volume fraction] 39.4 % Normal 34.0-46.4 [facility] Comment on above: Performed By: #### C MP, PAB, CBC #### [facility] [address] [place] [address] [place] Hemoglobin (Bld) [Mass/Vol] 12.9 g/dL Normal 11.8-15.4 [facility] Comment on above: Performed By: #### C MP, PAB, CBC #### [facility] [address] [place] [address] [place] Lymphocytes (Bld) [#/Vol] 1.1 10*3/uL Normal 1.00-4.8 [facility] Comment on above: Performed By: #### C MP, PAB, CBC #### [facility] [address] [place] [address] [place] Lymphocytes/100 WBC (Bld) 9.2 % Normal . [facility] Comment on above: Performed By: #### C MP, PAB, CBC #### [facility] [address] MCH (RBC) [Entitic mass] 30.7 pg Normal 24.7-34.3 [facility] Comment on above: Performed By: #### C MP, PAB, CBC #### [address] MCV (RBC) [Entitic vol] 93.4 fL Normal 80-100 [facility] Comment on above: Performed By: #### C MP, PAB, CBC #### [address] Mean Corpuscular HGB Conc 32.8 g/dL Normal 32.0-35.0 [facility] Comment on above: Performed By: #### C MP, PAB, CBC #### [address] Monocytes (Bld) [#/Vol] 1.0 10*3/uL High 0.0-0.8 [facility] Comment on above: Performed By: #### C MP, PAB, CBC #### [address] Monocytes/100 WBC (Bld) 8.3 % Normal . [facility] Comment on above: Performed By: #### C MP, PAB, CBC #### [address] Neutrophils (Bld) [#/Vol] 9.9 10*3/uL High 1.8-7.7 [facility] Comment on above: Performed By: #### C MP, PAB, CBC #### [address] Neutrophils/100 WBC (Bld) 81.9 % Normal . [facility] Comment on above: Performed By: #### C MP, PAB, CBC #### [address] NRBC% 0.1 /100{WBC} Normal 0-0.5 [facility] Comment on above: Performed By: #### C MP, PAB, CBC #### [facility] [address] Platelet mean volume (Bld) [Entitic vol] 8.1 fL Normal 6.3-10.7 [facility] Comment on above: Performed By: #### C MP, PAB, CBC #### [address] Platelets (Bld) [#/Vol] 220 10*3/uL Normal 150-450 [facility] Comment on above: Performed By: #### C MP, PAB, CBC #### [address] RBC (Bld) [#/Vol] 4.22 10*6/uL Normal 3.60-5.00 [facility] Comment on above: Performed By: #### C MP, PAB, CBC #### [address] WBC (Bld) [#/Vol] 12.1 10*3/uL High 3.8-11.6 [facility] Comment on above: Performed By: #### C MP, PAB, CBC #### [address] Comprehensive Metabolic Pane markell 09-18-2022 Albumin [Mass/Vol] 3.9 g/dL Normal 3.5-5.7 [facility] Comment on above: Performed By: #### C MP, PAB, CBC #### [address] Albumin/Globulin [Mass ratio] 1.7 {ratio} Normal [facility] Comment on above: Performed By: #### C MP, PAB, CBC #### [address] ALP [Catalytic activity/Vol] 93 U/L Normal 34-104 [facility] Comment on above: Performed By: #### C MP, PAB, CBC #### [address] ALT [Catalytic activity/Vol] 32 U/L Normal 7-52 [facility] Comment on above: Performed By: #### C MP, PAB, CBC #### [facility] [address] [place] [address] [place] Anion gap [Moles/Vol] 9.1 mmol/L Normal 6.0-15.0 [facility] Comment on above: Performed By: #### C MP, PAB, CBC #### [facility] [address] [place] [id number] [place] AST [Catalytic activity/Vol] 27 U/L Normal 13-39 [facility] Comment on above: Performed By: #### C MP, PAB, CBC #### [facility] [address] Bilirubin [Mass/Vol] 0.3 mg/dL Normal 0.3-1.0 [facility] Comment on above: Performed By: #### C MP, PAB, CBC #### [facility] [address] [place] [address] [place] Calcium [Mass/Vol] 10.5 mg/dL High 8.6-10.3 [facility] Comment on above: Performed By: #### C MP, PAB, CBC #### [facility] [address] [place] [address] [place] Chloride [Moles/Vol] 106 mmol/L Normal 98-107 [facility] Comment on above: Performed By: #### C MP, PAB, CBC #### [facility] [address] [place] [address] [place] CO2 [Moles/Vol] 32.3 mmol/L High 21.0-31.0 [facility] Comment on above: Performed By: #### C MP, PAB, CBC #### [facility] [address] [place] [address] [place] Creatinine [Mass/Vol] 0.46 mg/dL Low 0.60-1.20 [facility] Comment on above: Performed By: #### C MP, PAB, CBC #### [facility] [address] [place] [id number] [place] Creatinine Clr Calc Pharmacy 72.98 Normal [facility] Comment on above: Performed By: #### C MP, PAB, CBC #### [facility] [address] [place] [address] [place] GFR/1.73 sq M.predicted MDRD (S/P/Bld) [Vol rate/Area] mL/min/{1.73_m2} [facility] Comment on above: Performed By: #### C MP, PAB, CBC #### [facility] [address] Globulin (S) [Mass/Vol] 2.3 g/dL [facility] Comment on above: Performed By: #### C MP, PAB, CBC #### [facility] [address] Glucose [Mass/Vol] 113 mg/dL High 70-100 [facility] Comment on above: Result Comment: [place] Glucose Reference Range is dependent on time and content of last meal. Glucose of more than 200 mg/dL in a nonstressed, ambulatory subject supports the diagnosis of Diabetes Mellitus. ADA recommended reference range Performed By: #### C MP, PAB, CBC #### [facility] [address] Potassium [Moles/Vol] 4.4 mmol/L Normal 3.5-5.1 [facility] Comment on above: Performed By: #### C MP, PAB, CBC #### [facility] [address] Protein [Mass/Vol] 6.2 g/dL Low 6.4-8.9 [facility] Comment on above: Performed By: #### C MP, PAB, CBC #### [facility] [address] [place] [address] [place] Sodium [Moles/Vol] 143 mmol/L Normal 136-145 [facility] Comment on above: Performed By: #### C MP, PAB, CBC #### [facility] [address] Urea nitrogen [Mass/Vol] 21 mg/dL Normal 7-25 [facility] Comment on above: Performed By: #### C MP, PAB, CBC #### [facility] [address] Creatinine [Mass/volume] in Serum or PlasmaOrdered By: Tom Hill on 09-18-2022 Creatinine [Mass/Vol] 0.46 mg/dL 0.60-1.20 [facility] Eosinophils Auto (Bld) [#/Vo l]Ordered By: Tmo Hill on 09-18-2022 Eosinophils (Bld) [#/Vol] 0.0 10*3/uL 0.0-0.45 [facility] Eosinophils/100 WBC Auto (Bl d)Ordered By: Tom Hill on 09-18-2022 Eosinophils/100 WBC (Bld) 0.0 % . [facility] Erythrocyte distribution wid th Auto (RBC) [Ratio]Ordered By: Tom Hill on 09-18-2022 Erythrocyte distribution width (RBC) [Ratio] 14.5 % 11.9-15.3 [facility] Globulin Calc (S) [Mass/Vol] Ordered By: Tom Hill on 09-18-2022 Globulin (S) [Mass/Vol] 2.3 g/dL [facility] Glucose [Mass/volume] in Ser um or PlasmaOrdered By: Tom Hill on 09-18-2022 Glucose [Mass/Vol] 113 mg/dL 70-100 [facility] Comment on above: ADA recommended refe rence rangeRandom Glucose Reference Range is dependent on time and content of last meal. Glucose of more than 200 mg/dL in a nonstressed, ambulatory subject supports the diagnosis of Diabetes Mellitus. Hematocrit Auto (Bld) [Volum e fraction]Ordered By: Tom Hill on 09-18-2022 Hematocrit (Bld) [Volume fraction] 39.4 % 34.0-46.4 [facility] Hemoglobin [Mass/volume] in BloodOrdered By: Tom Hill on 09-18-2022 Hemoglobin (Bld) [Mass/Vol] 12.9 g/dL 11.8-15.4 [facility] Leukocytes [#/volume] correc nilay for nucleated erythrocytes in Blood by Automated counOrdered By: Tom Hill on 09-18-2022 WBC corrected for nucl RBC Auto (Bld) [#/Vol] 12.1 10*3/uL 3.8-11.6 [facility] Lymphocytes Auto (Bld) [#/Vo l]Ordered By: Tom Hill on 09-18-2022 Lymphocytes (Bld) [#/Vol] 1.1 10*3/uL 1.00-4.8 [facility] Lymphocytes/100 WBC Auto (Bl d)Ordered By: Tom Hill on 09-18-2022 Lymphocytes/100 WBC (Bld) 9.2 % . [facility] MCH Auto (RBC) [Entitic mass ]Ordered By: Tom Hill on 09-18-2022 MCH (RBC) [Entitic mass] 30.7 pg 24.7-34.3 [facility] MCHC Auto (RBC) [Mass/Vol]Or dered By: Tom Hill on 09-18-2022 MCHC (RBC) [Mass/Vol] 32.8 g/dL 32.0-35.0 [facility] MCV Auto (RBC) [Entitic vol] Ordered By: Tom Hill on 09-18-2022 MCV (RBC) [Entitic vol] 93.4 fL 80-100 [facility] Monocytes Auto (Bld) [#/Vol] Ordered By: Tom Hill on 09-18-2022 Monocytes (Bld) [#/Vol] 1.0 10*3/uL 0.0-0.8 [facility] Monocytes/100 WBC Auto (Bld) Ordered By: Tom Hill on 09-18-2022 Monocytes/100 WBC (Bld) 8.3 % . [facility] Neutrophils Auto (Bld) [#/Vo l]Ordered By: Tom Hill on 09-18-2022 Neutrophils (Bld) [#/Vol] 9.9 10*3/uL 1.8-7.7 [facility] Neutrophils/100 WBC Auto (Bl d)Ordered By: Tom Hill on 09-18-2022 Neutrophils/100 WBC (Bld) 81.9 % . [facility] No Panel InformationOrdered By: Tom Hill on 09-18-2022 Estimated GFR (CKD-EPI) > 60.0 mL/Min [facility] Creatinine Clearance (Chem 72.98 [facility] Nucleated erythrocytes [Pres ence] in Blood by Automated countOrdered By: Tom Hill on 09-18-2022 Nucleated RBC Auto Ql (Bld) 0.1 /100{WBC} 0-0.5 [facility] Platelet mean volume Auto (B ld) [Entitic vol]Ordered By: Tom Hill on 09-18-2022 Platelet mean volume (Bld) [Entitic vol] 8.1 fL 6.3-10.7 [facility] Platelets Auto (Bld) [#/Vol] Ordered By: Tom Hill on 09-18-2022 Platelets (Bld) [#/Vol] 220 10*3/uL 150-450 [facility] Potassium [Moles/volume] in Serum or PlasmaOrdered By: Tom Hill on 09-18-2022 Potassium [Moles/Vol] 4.4 mmol/L 3.5-5.1 [facility] Prealbuminon 09-18-2022 Prealbumin [Mass/Vol] 39.3 mg/dL High 17.0-34.0 [facility] Comment on above: Result Comment: PERF ORMED BY: [facility] [address] [place] [address] PATHOLOGIST NET ARCHITECT PETER RAYO M.D. Performed By: #### A BG #### Point of Care testing , Prealbumin [Mass/volume] in Serum or PlasmaOrdered By: Tom Hill on 09-18-2022 Prealbumin [Mass/Vol] 39.3 mg/dL 17.0-34.0 [facility] Protein [Mass/volume] in Ser um or PlasmaOrdered By: Tom Hill on 09-18-2022 Protein [Mass/Vol] 6.2 g/dL 6.4-8.9 [facility] RBC Auto (Bld) [#/Vol]Ordere d By: Tom Hill on 09-18-2022 RBC (Bld) [#/Vol] 4.22 10*6/uL 3.60-5.00 [facility] Serum or plasma albumin/glob ulin mass ratioOrdered By: Tom Hill on 09-18-2022 Albumin/Globulin [Mass ratio] 1.7 {ratio} [facility] Serum or plasma anion gap de terminationOrdered By: Tom Hill on 09-18-2022 Anion gap [Moles/Vol] 9.1 mmol/L 6.0-15.0 [facility] Sodium [Moles/volume] in Ser um or PlasmaOrdered By: Tom Hill on 09-18-2022 Sodium [Moles/Vol] 143 mmol/L 136-145 [facility] Urea nitrogen [Mass/volume] in Serum or PlasmaOrdered By: Tom Hill on 09-18-2022 Urea nitrogen [Mass/Vol] 21 mg/dL 7- [facility] WBC Auto (Bld) [#/Vol]Ordere d By: Tom Hill on 09-18-2022 WBC (Bld) [#/Vol] 12.1 10*3/uL 3.8-11.6 [facility] Anisocytosis LM Ql (Bld)Orde red By: Mildred Summers on 09-17-2022 Anisocytosis Ql (Bld) Slight [facility] Basic Metabolic Panelon 08-22 Anion gap [Moles/Vol] 9.4 mmol/L Normal 6.0-15.0 [facility] Comment on above: Order Comment: pt ge tting pt check back Performed By: #### R SUSI WEISS REDRAW K #### [facility] [address] [place] [address] [place] Calcium [Mass/Vol] 10.4 mg/dL High 8.6-10.3 [facility] Comment on above: Order Comment: pt ge tting pt check back Performed By: #### R MATEO EPPERSONRASrikanth K #### [facility] [address] [place] [id number] [place] Chloride [Moles/Vol] 104 mmol/L Normal 98-107 [facility] Comment on above: Order Comment: pt ge tting pt check back Performed By: #### R SUSI WEISS REDRAW K #### [facility] [address] [id number] [place] CO2 [Moles/Vol] 31.9 mmol/L High 21.0-31.0 [facility] Comment on above: Order Comment: pt ge tting pt check back Performed By: #### GABINO BENOIT #### [facility] [address] [place] [address] Creatinine [Mass/Vol] 0.46 mg/dL Low 0.60-1.20 [facility] Comment on above: Order Comment: pt ge tting pt check back Performed By: #### GABINO BENOIT #### [place] [address] [place] Creatinine Clr Calc Pharmacy 73.67 [facility] Comment on above: Order Comment: pt ge tting pt check back Result Comment: PERF ORMED BY: [place] [address] PATHOLOGIST NET ARCHITECT PETER RAYO M.D. Performed By: #### GABINO BENOIT #### [address] GFR/1.73 sq M.predicted MDRD (S/P/Bld) [Vol rate/Area] mL/min/{1.73_m2} [facility] Comment on above: Order Comment: pt ge tting pt check back Performed By: #### GABINO BENOIT #### [address] Glucose [Mass/Vol] 115 mg/dL High 70-100 [facility] Comment on above: Order Comment: pt ge tting pt check back Result Comment: [place] om Glucose Reference Range is dependent on time and content of last meal. Glucose of more than 200 mg/dL in a nonstressed, ambulatory subject supports the diagnosis of Diabetes Mellitus. ADA recommended reference range Performed By: #### GABINO BENOIT #### [place] [address] [place] Potassium [Moles/Vol] 4.3 mmol/L Normal 3.5-5.1 [facility] Comment on above: Order Comment: pt ge tting pt check back Performed By: #### R EDJAXON WEISS REDRAW K #### [facility] [address] Sodium [Moles/Vol] 141 mmol/L Normal 136-145 [facility] Comment on above: Order Comment: pt ge tting pt check back Performed By: #### R SUSI WEISS REDRAW K #### [facility] [address] Urea nitrogen [Mass/Vol] 22 mg/dL Normal 7-25 [facility] Comment on above: Order Comment: pt ge tting pt check back Performed By: #### R SUSI WEISS REDRAW K #### [facility] [address] Basophils Auto (Bld) [#/Vol] Ordered By: Mildred Summers on 09-17-2022 Basophils (Bld) [#/Vol] 0.1 10*3/uL 0.0-0.2 [facility] Basophils/100 WBC Auto (Bld) Ordered By: Mildred Summers on 09-17-2022 Basophils/100 WBC (Bld) 0.4 % . [facility] Calcium [Mass/volume] in Ser um or PlasmaOrdered By: Arnaud Max on 09-17-2022 Calcium [Mass/Vol] 10.4 mg/dL 8.6-10.3 [facility] Carbon dioxide, total [Moles /volume] in Serum or PlasmaOrdered By: Arnaud Max on 09-17-2022 CO2 [Moles/Vol] 31.9 mmol/L 21.0-31.0 [facility] Chloride [Moles/volume] in S jody or PlasmaOrdered By: Arnaud Max on 09-17-2022 Chloride [Moles/Vol] 104 mmol/L 98-107 [facility] Creatinine [Mass/volume] in Serum or PlasmaOrdered By: Arnaud Max on 09-17-2022 Creatinine [Mass/Vol] 0.46 mg/dL 0.60-1.20 [facility] Eosinophils Auto (Bld) [#/Vo l]Ordered By: Mildred Summers on 09-17-2022 Eosinophils (Bld) [#/Vol] 0.2 10*3/uL 0.0-0.45 [facility] Eosinophils/100 WBC Auto (Bl d)Ordered By: Mildred Summers on 09-17-2022 Eosinophils/100 WBC (Bld) 1.6 % . [facility] Erythrocyte distribution wid th Auto (RBC) [Ratio]Ordered By: Mildred Summers on 09-17-2022 Erythrocyte distribution width (RBC) [Ratio] 14.9 % 11.9-15.3 [facility] Glucose [Mass/volume] in Ser um or PlasmaOrdered By: Arnaud Max on 09-17-2022 Glucose [Mass/Vol] 115 mg/dL 70-100 [facility] Comment on above: ADA recommended refe rence rangeRandom Glucose Reference Range is dependent on time and content of last meal. Glucose of more than 200 mg/dL in a nonstressed, ambulatory subject supports the diagnosis of Diabetes Mellitus. Hematocrit Auto (Bld) [Volum e fraction]Ordered By: Mildred Summers on 09-17-2022 Hematocrit (Bld) [Volume fraction] 38.0 % 34.0-46.4 [facility] Hemoglobin [Mass/volume] in BloodOrdered By: Mildred Summers on 09-17-2022 Hemoglobin (Bld) [Mass/Vol] 12.7 g/dL 11.8-15.4 [facility] Leukocytes [#/volume] correc nilay for nucleated erythrocytes in Blood by Automated counOrdered By: Mildred Summers on 09-17-2022 WBC corrected for nucl RBC Auto (Bld) [#/Vol] 15.1 10*3/uL 3.8-11.6 [facility] Lymphocytes Auto (Bld) [#/Vo l]Ordered By: Mildred Summers on 09-17-2022 Lymphocytes (Bld) [#/Vol] 1.0 10*3/uL 1.00-4.8 [facility] Lymphocytes/100 WBC Auto (Bl d)Ordered By: Mildred Summers on 09-17-2022 Lymphocytes/100 WBC (Bld) 6.9 % . [facility] MCH Auto (RBC) [Entitic mass ]Ordered By: Mildred Summers on 09-17-2022 MCH (RBC) [Entitic mass] 31.2 pg 24.7-34.3 [facility] MCHC Auto (RBC) [Mass/Vol]Or dered By: Mildred Summers on 09-17-2022 MCHC (RBC) [Mass/Vol] 33.6 g/dL 32.0-35.0 [facility] MCV Auto (RBC) [Entitic vol] Ordered By: Mildred Summers on 09-17-2022 MCV (RBC) [Entitic vol] 92.9 fL 80-100 [facility] Microcytes LM Ql (Bld)Ordere d By: Mildred Summers on 09-17-2022 Microcytes Ql (Bld) Slight [facility] Monocytes Auto (Bld) [#/Vol] Ordered By: Mildred Summers on 09-17-2022 Monocytes (Bld) [#/Vol] 1.1 10*3/uL 0.0-0.8 [facility] Monocytes/100 WBC Auto (Bld) Ordered By: Mildred Summers on 09-17-2022 Monocytes/100 WBC (Bld) 7.6 % . [facility] Neutrophils Auto (Bld) [#/Vo l]Ordered By: Mildred Summers on 09-17-2022 Neutrophils (Bld) [#/Vol] 12.6 10*3/uL 1.8-7.7 [facility] Neutrophils/100 WBC Auto (Bl d)Ordered By: Mildred Summers on 09-17-2022 Neutrophils/100 WBC (Bld) 83.5 % . [facility] No Panel InformationOrdered By: Arnaud Max on 09-17-2022 Estimated GFR (CKD-EPI) > 60.0 mL/Min [facility] Creatinine Clearance (Chem 73.67 [facility] Nucleated erythrocytes [Pres ence] in Blood by Automated countOrdered By: Mildred Summers on 09-17-2022 Nucleated RBC Auto Ql (Bld) 0.2 /100{WBC} 0-0.5 [facility] Platelet adequacy [Presence] in Blood by Light microscopyOrdered By: Mildred Summers on 09-17-2022 Platelets LM Ql (Bld) Normal Normal [facility] Platelet mean volume Auto (B ld) [Entitic vol]Ordered By: Mildred Summers on 09-17-2022 Platelet mean volume (Bld) [Entitic vol] 8.5 fL 6.3-10.7 [facility] Platelet morphology finding [Identifier] in BloodOrdered By: Mildred Summers on 09-17-2022 Platelet morphology finding Nom (Bld) Normal Normal [facility] Platelets Auto (Bld) [#/Vol] Ordered By: Mildrde Summers on 09-17-2022 Platelets (Bld) [#/Vol] 278 10*3/uL 150-450 [facility] Potassium [Moles/volume] in Serum or PlasmaOrdered By: Arnaud Max on 09-17-2022 Potassium [Moles/Vol] 4.3 mmol/L 3.5-5.1 [facility] RBC Auto (Bld) [#/Vol]Ordere d By: Mildred Summers on 09-17-2022 RBC (Bld) [#/Vol] 4.09 10*6/uL 3.60-5.00 [facility] RBC morphologyOrdered By: Leidy Summers on 09-17-2022 RBC morphology finding Nom (Bld) N/A [facility] Scan and CBCon 09-17-2022 Anisocytosis Ql (Bld) Slight Normal [facility] Comment on above: Performed By: #### A BG #### Point of Care testing , Basophils (Bld) [#/Vol] 0.1 10*3/uL Normal 0.0-0.2 [facility] Comment on above: Performed By: #### A BG #### Point of Care testing , Basophils/100 WBC (Bld) 0.4 % Normal . [facility] Comment on above: Performed By: #### A BG #### Point of Care testing , Eosinophils (Bld) [#/Vol] 0.2 10*3/uL Normal 0.0-0.45 [facility] Comment on above: Performed By: #### A BG #### Point of Care testing , Eosinophils/100 WBC (Bld) 1.6 % Normal . [facility] Comment on above: Performed By: #### A BG #### Point of Care testing , Erythrocyte distribution width (RBC) [Ratio] 14.9 % Normal 11.9-15.3 [facility] Comment on above: Performed By: #### A BG #### Point of Care testing , Hematocrit (Bld) [Volume fraction] 38.0 % Normal 34.0-46.4 [facility] Comment on above: Performed By: #### A BG #### Point of Care testing , Hemoglobin (Bld) [Mass/Vol] 12.7 g/dL Normal 11.8-15.4 [facility] Comment on above: Performed By: #### A BG #### Point of Care testing , Lymphocytes (Bld) [#/Vol] 1.0 10*3/uL Normal 1.00-4.8 [facility] Comment on above: Performed By: #### A BG #### Point of Care testing , Lymphocytes/100 WBC (Bld) 6.9 % Normal . [facility] Comment on above: Performed By: #### A BG #### Point of Care testing , MCH (RBC) [Entitic mass] 31.2 pg Normal 24.7-34.3 [facility] Comment on above: Performed By: #### A BG #### Point of Care testing , MCV (RBC) [Entitic vol] 92.9 fL Normal 80-100 [facility] Comment on above: Performed By: #### A BG #### Point of Care testing , Mean Corpuscular HGB Conc 33.6 g/dL Normal 32.0-35.0 [facility] Comment on above: Performed By: #### A BG #### Point of Care testing , Microcytosis Slight Normal [facility] Comment on above: Performed By: #### A BG #### Point of Care testing , Monocytes (Bld) [#/Vol] 1.1 10*3/uL High 0.0-0.8 [facility] Comment on above: Performed By: #### A BG #### Point of Care testing , Monocytes/100 WBC (Bld) 7.6 % Normal . [facility] Comment on above: Performed By: #### A BG #### Point of Care testing , Neutrophils (Bld) [#/Vol] 12.6 10*3/uL High 1.8-7.7 [facility] Comment on above: Performed By: #### A BG #### Point of Care testing , Neutrophils/100 WBC (Bld) 83.5 % Normal . [facility] Comment on above: Performed By: #### A BG #### Point of Care testing , NRBC% 0.2 /100{WBC} Normal 0-0.5 [facility] Comment on above: Performed By: #### A BG #### Point of Care testing , Platelet Estimate Normal Normal Normal [facility] Comment on above: Performed By: #### A BG #### Point of Care testing , Platelet mean volume (Bld) [Entitic vol] 8.5 fL Normal 6.3-10.7 [facility] Comment on above: Performed By: #### A BG #### Point of Care testing , Platelet Morphology Normal Normal Normal [facility] Comment on above: Result Comment: PERF ORMED BY: [facility] [address] [place] [address] PATHOLOGIST NET ARCHITECT PETER RAYO M.D. Performed By: #### A BG #### Point of Care testing , Platelets (Bld) [#/Vol] 278 10*3/uL Normal 150-450 [facility] Comment on above: Performed By: #### A BG #### Point of Care testing , RBC (Bld) [#/Vol] 4.09 10*6/uL Normal 3.60-5.00 [facility] Comment on above: Performed By: #### A BG #### Point of Care testing , WBC (Bld) [#/Vol] 15.1 10*3/uL High 3.8-11.6 [facility] Comment on above: Performed By: #### A BG #### Point of Care testing , Serum or plasma anion gap de terminationOrdered By: Arnaud Max on 09-17-2022 Anion gap [Moles/Vol] 9.4 mmol/L 6.0-15.0 [facility] Sodium [Moles/volume] in Ser um or PlasmaOrdered By: Arnaud Max on 09-17-2022 Sodium [Moles/Vol] 141 mmol/L 136-145 [facility] Urea nitrogen [Mass/volume] in Serum or PlasmaOrdered By: Arnaud Max on 09-17-2022 Urea nitrogen [Mass/Vol] 22 mg/dL 10-14 [facility] WBC Auto (Bld) [#/Vol]Ordere d By: Mildred Summers on 09-17-2022 WBC (Bld) [#/Vol] 15.1 10*3/uL 3.8-11.6 [facility] Basic Metabolic Panelon 08-22 Anion gap [Moles/Vol] Not performed Normal 6.0-15.0 [facility] Comment on above: Performed By: #### R GABINO EPPERSON #### [facility] [address] [place] [address] [place] Calcium [Mass/Vol] 10.5 mg/dL High 8.6-10.3 [facility] Comment on above: Performed By: #### R GABINO EPPERSON #### [facility] [address] [place] [id number] [place] Chloride [Moles/Vol] 100 mmol/L Normal 98-107 [facility] Comment on above: Performed By: #### R GABINO EPPERSON K #### [facility] [address] [place] [id number] [place] CO2 [Moles/Vol] 30.2 mmol/L Normal 21.0-31.0 [facility] Comment on above: Performed By: #### R GABINO EPPERSON K #### [facility] [address] [place] [address] [place] Creatinine [Mass/Vol] 0.53 mg/dL Low 0.60-1.20 [facility] Comment on above: Performed By: #### GABINO BENOIT #### [address] Creatinine Clr Calc Pharmacy 72.44 Normal [facility] Comment on above: Result Comment: PERF ORMED BY: [place] [address] PATHOLOGIST NET ARCHITECT PETER RAYO M.D. Performed By: #### GABINO BENOIT #### [address] GFR/1.73 sq M.predicted MDRD (S/P/Bld) [Vol rate/Area] mL/min/{1.73_m2} [facility] Comment on above: Performed By: #### GABINO BENOIT #### [address] Glucose [Mass/Vol] 124 mg/dL High 70-100 [facility] Comment on above: Result Comment: [place] Glucose Reference Range is dependent on time and content of last meal. Glucose of more than 200 mg/dL in a nonstressed, ambulatory subject supports the diagnosis of Diabetes Mellitus. ADA recommended reference range Performed By: #### GABINO BENOIT #### [address] Potassium Normal 3.5-5.1 [facility] Comment on above: Result Comment: Spec imen hemolyzed, redraw requested Performed By: #### GABINO BENOIT #### [place] [address] [place] Sodium [Moles/Vol] 137 mmol/L Normal 136-145 [facility] Comment on above: Performed By: #### GABINO BENOIT #### [address] Urea nitrogen [Mass/Vol] 16 mg/dL Normal 7-25 [facility] Comment on above: Performed By: #### GABINO BENOIT #### [address] Complete Blood Count Auto Di ffon 09-16-2022 Basophils (Bld) [#/Vol] 0.0 10*3/uL Normal 0.0-0.2 [facility] Comment on above: Result Comment: PERF ORMED BY: [place] [address] PATHOLOGIST NET ARCHITECT PETER RAYO M.D. Performed By: #### GABINO BENOIT #### [address] Basophils/100 WBC (Bld) 0.2 % Normal . [facility] Comment on above: Performed By: #### GABINO BNEOIT #### [address] Eosinophils (Bld) [#/Vol] 0.0 10*3/uL Normal 0.0-0.45 [facility] Comment on above: Performed By: #### GABINO BENOIT #### [address] Eosinophils/100 WBC (Bld) 0.0 % Normal . [facility] Comment on above: Performed By: #### GABINO BENOIT #### [address] Erythrocyte distribution width (RBC) [Ratio] 14.5 % Normal 11.9-15.3 [facility] Comment on above: Performed By: #### GABINO BENOIT #### [address] Hematocrit (Bld) [Volume fraction] 38.0 % Normal 34.0-46.4 [facility] Comment on above: Performed By: #### GABINO BENOIT #### [address] Hemoglobin (Bld) [Mass/Vol] 12.8 g/dL Normal 11.8-15.4 [facility] Comment on above: Performed By: #### GABINO BENOIT #### [address] Lymphocytes (Bld) [#/Vol] 0.7 10*3/uL Low 1.00-4.8 [facility] Comment on above: Performed By: #### GABINO BENOIT #### [address] Lymphocytes/100 WBC (Bld) 4.4 % Normal . [facility] Comment on above: Performed By: #### GABINO BENOIT #### [address] MCH (RBC) [Entitic mass] 31.0 pg Normal 24.7-34.3 [facility] Comment on above: Performed By: #### GABINO BENOIT #### [address] MCV (RBC) [Entitic vol] 91.9 fL Normal 80-100 [facility] Comment on above: Performed By: #### GABINO BENOIT #### [address] Mean Corpuscular HGB Conc 33.8 g/dL Normal 32.0-35.0 [facility] Comment on above: Performed By: #### GABINO BENOIT #### [address] Monocytes (Bld) [#/Vol] 0.5 10*3/uL Normal 0.0-0.8 [facility] Comment on above: Performed By: #### GABINO BENOIT #### [address] Monocytes/100 WBC (Bld) 3.3 % Normal . [facility] Comment on above: Performed By: #### GABINO BENOIT #### [facility] [address] [place] [address] Neutrophils (Bld) [#/Vol] 14.2 10*3/uL High 1.8-7.7 [facility] Comment on above: Performed By: #### GABINO BENOIT #### [address] Neutrophils/100 WBC (Bld) 92.1 % Normal . [facility] Comment on above: Performed By: #### GABINO BENOIT #### [address] NRBC% 0.0 /100{WBC} Normal 0-0.5 [facility] Comment on above: Performed By: #### GABINO BENOIT #### [address] Platelet mean volume (Bld) [Entitic vol] 7.8 fL Normal 6.3-10.7 [facility] Comment on above: Performed By: #### GABINO BENOIT #### [address] Platelets (Bld) [#/Vol] 247 10*3/uL Normal 150-450 [facility] Comment on above: Performed By: #### GABINO BENOIT #### [address] RBC (Bld) [#/Vol] 4.14 10*6/uL Normal 3.60-5.00 [facility] Comment on above: Performed By: #### GABINO BENOIT #### [address] WBC (Bld) [#/Vol] 15.5 10*3/uL High 3.8-11.6 [facility] Comment on above: Performed By: #### R EDRAW NA, REDRAW K #### [address] ECG 12 lead ECGon 09-16-2022 ECG 12 lead ECG [facility] [place] [address] [place] [address] Electrocardiograph Report Signed Patient: Miriam German MR#: [id number] : 1955 Acct:[id number] Age/Sex: 67 / F ADM Date: 09/10/22 Loc: Room: [address] [place] [address] Type: DIS IN Attending Dr: Arnaud Max [...] By William Broderick DO 09/26 1255 Normal [facility] Redraw Potassiumon 3 Potassium [Moles/Vol] 4.2 mmol/L Normal 3.5-5.1 [facility] Comment on above: Order Comment: FIRST SPECIMEN HEMOLYZED Result Comment: PERF ORMED BY: [place] [address] PATHOLOGIST NET ARCHITECT PETER RAYO M.D. Performed By: #### A BG #### Point of Care testing , Activated partial thrombopla stin time (aPTT) in platelet poor plasma by coagulation aOrdered By: Boni Lincoln on 09-15-2022 aPTT Coag (PPP) [Time] 25.0 s 25.1-36.5 [facility] Basic Metabolic Panelon 06-2 Anion gap [Moles/Vol] Not performed Normal 6.0-15.0 [facility] Comment on above: Performed By: #### A BG #### Point of Care testing , Calcium [Mass/Vol] 9.9 mg/dL Normal 8.6-10.3 [facility] Comment on above: Performed By: #### A BG #### Point of Care testing , Chloride [Moles/Vol] 102 mmol/L Normal 98-107 [facility] Comment on above: Performed By: #### A BG #### Point of Care testing , CO2 [Moles/Vol] 27.6 mmol/L Normal 21.0-31.0 [facility] Comment on above: Performed By: #### A BG #### Point of Care testing , Creatinine [Mass/Vol] 0.47 mg/dL Low 0.60-1.20 [facility] Comment on above: Performed By: #### A BG #### Point of Care testing , Creatinine Clr Calc Pharmacy 74.57 [facility] Comment on above: Result Comment: PERF ORMED BY: [facility] [address] [place] [address] PATHOLOGIST NET ARCHITECT PETER RAYO M.D. Performed By: #### A BG #### Point of Care testing , GFR/1.73 sq M.predicted MDRD (S/P/Bld) [Vol rate/Area] mL/min/{1.73_m2} [facility] Comment on above: Performed By: #### A BG #### Point of Care testing , Glucose [Mass/Vol] 107 mg/dL High 70-100 [facility] Comment on above: Result Comment: [place] Glucose Reference Range is dependent on time and content of last meal. Glucose of more than 200 mg/dL in a nonstressed, ambulatory subject supports the diagnosis of Diabetes Mellitus. ADA recommended reference range Performed By: #### A BG #### Point of Care testing , Potassium Normal 3.5-5.1 [facility] Comment on above: Result Comment: Spec imen hemolyzed, redraw requested Performed By: #### A BG #### Point of Care testing , Sodium Normal 136-145 [facility] Comment on above: Result Comment: Spec imen hemolyzed, redraw requested Performed By: #### A BG #### Point of Care testing , Urea nitrogen [Mass/Vol] 20 mg/dL Normal 7-25 [facility] Comment on above: Performed By: #### A BG #### Point of Care testing , Coagulation Profileon 2022 aPTT Coag (Bld) [Time] 25.0 s Low 25.1-36.5 [facility] Comment on above: Result Comment: PERF ORMED BY: [address] [place] [address] PATHOLOGIST NET ARCHITECT PETER RAYO M.D. Performed By: #### A BG #### Point of Care testing , INR Coag (PPP) [Relative time] 0.9 {INR} Normal [facility] Comment on above: Result Comment: INR [...] Coag (PPP) [Time] 10.8 s Normal 9.0-12.9 [facility] Comment on above: Performed By: #### A BG #### Point of Care testing , Complete Blood Count Auto Di ffon 09-15-2022 Basophils (Bld) [#/Vol] 0.1 10*3/uL Normal 0.0-0.2 [facility] Comment on above: Result Comment: PERF ORMED BY: [facility] [address] [place] [address] PATHOLOGIST NET ARCHITECT PETER RAYO M.D. Performed By: #### A BG #### Point of Care testing , Basophils/100 WBC (Bld) 0.6 % Normal . [facility] Comment on above: Performed By: #### A BG #### Point of Care testing , Eosinophils (Bld) [#/Vol] 0.3 10*3/uL Normal 0.0-0.45 [facility] Comment on above: Performed By: #### A BG #### Point of Care testing , Eosinophils/100 WBC (Bld) 2.2 % Normal . [facility] Comment on above: Performed By: #### A BG #### Point of Care testing , Erythrocyte distribution width (RBC) [Ratio] 14.9 % Normal 11.9-15.3 [facility] Comment on above: Performed By: #### A BG #### Point of Care testing , Hematocrit (Bld) [Volume fraction] 39.3 % Normal 34.0-46.4 [facility] Comment on above: Performed By: #### A BG #### Point of Care testing , Hemoglobin (Bld) [Mass/Vol] 13.3 g/dL Normal 11.8-15.4 [facility] Comment on above: Performed By: #### A BG #### Point of Care testing , Lymphocytes (Bld) [#/Vol] 1.3 10*3/uL Normal 1.00-4.8 [facility] Comment on above: Performed By: #### A BG #### Point of Care testing , Lymphocytes/100 WBC (Bld) 10.4 % Normal . [facility] Comment on above: Performed By: #### A BG #### Point of Care testing , MCH (RBC) [Entitic mass] 31.3 pg Normal 24.7-34.3 [facility] Comment on above: Performed By: #### A BG #### Point of Care testing , MCV (RBC) [Entitic vol] 92.2 fL Normal 80-100 [facility] Comment on above: Performed By: #### A BG #### Point of Care testing , Mean Corpuscular HGB Conc 33.9 g/dL Normal 32.0-35.0 [facility] Comment on above: Performed By: #### A BG #### Point of Care testing , Monocytes (Bld) [#/Vol] 0.4 10*3/uL Normal 0.0-0.8 [facility] Comment on above: Performed By: #### A BG #### Point of Care testing , Monocytes/100 WBC (Bld) 3.7 % Normal . [facility] Comment on above: Performed By: #### A BG #### Point of Care testing , Neutrophils (Bld) [#/Vol] 10.0 10*3/uL High 1.8-7.7 [facility] Comment on above: Performed By: #### A BG #### Point of Care testing , Neutrophils/100 WBC (Bld) 83.1 % Normal . [facility] Comment on above: Performed By: #### A BG #### Point of Care testing , NRBC% 0.3 /100{WBC} Normal 0-0.5 [facility] Comment on above: Performed By: #### A BG #### Point of Care testing , Platelet mean volume (Bld) [Entitic vol] 8.5 fL Normal 6.3-10.7 [facility] Comment on above: Performed By: #### A BG #### Point of Care testing , Platelets (Bld) [#/Vol] 276 10*3/uL Normal 150-450 [facility] Comment on above: Performed By: #### A BG #### Point of Care testing , RBC (Bld) [#/Vol] 4.26 10*6/uL Normal 3.60-5.00 [facility] Comment on above: Performed By: #### A BG #### Point of Care testing , WBC (Bld) [#/Vol] 12.0 10*3/uL High 3.8-11.6 [facility] Comment on above: Performed By: #### A BG #### Point of Care testing , Laboratory - CoagulationOrde red By: Boni Lincoln on 09-15-2022 PT Coag (PPP) [Time] 10.8 s 9.0-12.9 [facility] Platelet poor plasma interna tional normalized ratio (INR) by coagulation assay (relatOrdered By: Boni Lincoln on 09-15-2022 INR Coag (PPP) [Relative time] 0.9 {INR} [facility] Comment on above: INR Therapeutic Rang [...] 3 Potassium [Moles/Vol] 4.6 mmol/L Normal 3.5-5.1 [facility] Comment on above: Result Comment: PERF ORMED BY: [place] [address] PATHOLOGIST NET ARCHITECT PETER RAYO M.D. Performed By: #### R EDRAW NA, REDRAW K #### [facility] [address] [place] [address] Redraw Sodiumon 09-15-2022 Sodium [Moles/Vol] 141 mmol/L Normal 136-145 [facility] Comment on above: Performed By: #### R EDRAW NA, REDRAW K #### [facility] [address] [place] [address] XR cervical spine 1Von 09-15 XR cervical spine 1V [facility] [place] [address] XRay Report Signed Patient: Miriam German MR#: [id number] : 1955 Acct:[id number] Age/Sex: 67 / F ADM Date: 09/10/22 Loc: Room: [address] [place] [address] Type: ADM IN Attending Dr: Arnaud Max [...] Jr., DJose Eduardo09/15/2022 12:18 PM Dictation Location: [facility]--12 Transcribed By: [facility] 09/15/221217 Dictated By: Tom Coates Jr, DO 09/15/221217 Signed By: 09/15/[address] [facility] Basic Metabolic Panelon 08-22 Anion gap [Moles/Vol] 10.4 mmol/L Normal 6.0-15.0 [facility] Comment on above: Performed By: #### C BC, BMP #### [facility] [address] Calcium [Mass/Vol] 10.0 mg/dL Normal 8.6-10.3 [facility] Comment on above: Performed By: #### C BC, BMP #### [facility] [address] Chloride [Moles/Vol] 103 mmol/L Normal 98-107 [facility] Comment on above: Performed By: #### C BC, BMP #### [facility] [address] [place] [id number] [place] CO2 [Moles/Vol] 31.3 mmol/L High 21.0-31.0 [facility] Comment on above: Performed By: #### C BC, BMP #### [facility] [address] [place] [id number] [place] Creatinine [Mass/Vol] 0.61 mg/dL Normal 0.60-1.20 [facility] Comment on above: Performed By: #### C BC, BMP #### [facility] [address] [place] [id number] [place] Creatinine Clr Calc Pharmacy 74.[address] [facility] Comment on above: Result Comment: PERF ORMED BY: [place] [address] PATHOLOGIST NET ARCHITECT PETER RAYO M.D. Performed By: #### C BC, BMP #### [place] [address] [place] GFR/1.73 sq M.predicted MDRD (S/P/Bld) [Vol rate/Area] mL/min/{1.73_m2} [facility] Comment on above: Performed By: #### C BC, BMP #### [address] Glucose [Mass/Vol] 126 mg/dL High 70-100 [facility] Comment on above: Result Comment: [facility] Glucose Reference Range is dependent on time and content of last meal. Glucose of more than 200 mg/dL in a nonstressed, ambulatory subject supports the diagnosis of Diabetes Mellitus. ADA recommended reference range Performed By: #### C BC, BMP #### [address] Potassium [Moles/Vol] 4.7 mmol/L Normal 3.5-5.1 [facility] Comment on above: Performed By: #### C BC, BMP #### [place] [address] [place] Sodium [Moles/Vol] 140 mmol/L Normal 136-145 [facility] Comment on above: Performed By: #### C BC, BMP #### [place] [address] [place] Urea nitrogen [Mass/Vol] 20 mg/dL Normal 7-25 [facility] Comment on above: Performed By: #### C BC, BMP #### [address] Complete Blood Count Auto Di ffon 09-14-2022 Basophils (Bld) [#/Vol] 0.0 10*3/uL Normal 0.0-0.2 [facility] Comment on above: Result Comment: PERF ORMED BY: [place] [address] PATHOLOGIST NET ARCHITECT PETER RAYO M.D. Performed By: #### C BC, BMP #### [address] Basophils/100 WBC (Bld) 0.3 % Normal . [facility] Comment on above: Performed By: #### C BC, BMP #### [address] Eosinophils (Bld) [#/Vol] 0.0 10*3/uL Normal 0.0-0.45 [facility] Comment on above: Performed By: #### C COCO, BMP #### [address] Eosinophils/100 WBC (Bld) 0.3 % Normal . [facility] Comment on above: Performed By: #### C BC, BMP #### [address] Erythrocyte distribution width (RBC) [Ratio] 14.9 % Normal 11.9-15.3 [facility] Comment on above: Performed By: #### C BC, BMP #### [address] Hematocrit (Bld) [Volume fraction] 39.2 % Normal 34.0-46.4 [facility] Comment on above: Performed By: #### C BC, BMP #### [address] Hemoglobin (Bld) [Mass/Vol] 13.0 g/dL Normal 11.8-15.4 [facility] Comment on above: Performed By: #### C BC, BMP #### [address] Lymphocytes (Bld) [#/Vol] 0.9 10*3/uL Low 1.00-4.8 [facility] Comment on above: Performed By: #### C BC, BMP #### [place] [address] [place] Lymphocytes/100 WBC (Bld) 7.8 % Normal . [facility] Comment on above: Performed By: #### C BC, BMP #### [facility] [address] MCH (RBC) [Entitic mass] 30.8 pg Normal 24.7-34.3 [facility] Comment on above: Performed By: #### C BC, BMP #### [facility] [address] MCV (RBC) [Entitic vol] 92.9 fL Normal 80-100 [facility] Comment on above: Performed By: #### C BC, BMP #### [address] Mean Corpuscular HGB Conc 33.2 g/dL Normal 32.0-35.0 [facility] Comment on above: Performed By: #### C BC, BMP #### [address] Monocytes (Bld) [#/Vol] 0.5 10*3/uL Normal 0.0-0.8 [facility] Comment on above: Performed By: #### C BC, BMP #### [place] [address] [place] Monocytes/100 WBC (Bld) 4.4 % Normal . [facility] Comment on above: Performed By: #### C BC, BMP #### [place] [address] [place] Neutrophils (Bld) [#/Vol] 9.7 10*3/uL High 1.8-7.7 [facility] Comment on above: Performed By: #### C BC, BMP #### [address] Neutrophils/100 WBC (Bld) 87.2 % Normal . [facility] Comment on above: Performed By: #### C BC, BMP #### [address] NRBC% 0.0 /100{WBC} Normal 0-0.5 [facility] Comment on above: Performed By: #### C COCO, BMP #### [facility] [address] Platelet mean volume (Bld) [Entitic vol] 7.8 fL Normal 6.3-10.7 [facility] Comment on above: Performed By: #### C COCO, BMP #### [facility] [address] Platelets (Bld) [#/Vol] 239 10*3/uL Normal 150-450 [facility] Comment on above: Performed By: #### C COCO, BMP #### [address] RBC (Bld) [#/Vol] 4.22 10*6/uL Normal 3.60-5.00 [facility] Comment on above: Performed By: #### C COCO, BMP #### [address] WBC (Bld) [#/Vol] 11.1 10*3/uL Normal 3.8-11.6 [facility] Comment on above: Performed By: #### C COCO, BMP #### [address] Basic Metabolic Panelon 08-22 Anion gap [Moles/Vol] 11.0 mmol/L Normal 6.0-15.0 [facility] Comment on above: Performed By: #### GABINO BENOIT K #### [address] Calcium [Mass/Vol] 10.3 mg/dL Normal 8.6-10.3 [facility] Comment on above: Performed By: #### GABINO BENOIT K #### [address] Chloride [Moles/Vol] 101 mmol/L Normal 98-107 [facility] Comment on above: Performed By: #### GABINO BENOIT K #### [address] CO2 [Moles/Vol] 31.4 mmol/L High 21.0-31.0 [facility] Comment on above: Performed By: #### GABINO BENOIT #### [address] Creatinine [Mass/Vol] 0.46 mg/dL Low 0.60-1.20 [facility] Comment on above: Performed By: #### GABINO BENOIT #### [address] Creatinine Clr Calc Pharmacy 74.65 [facility] Comment on above: Result Comment: PERF ORMED BY: [place] [address] PATHOLOGIST NET ARCHITECT PETER RAYO M.D. Performed By: #### GABINO BENOIT #### [address] GFR/1.73 sq M.predicted MDRD (S/P/Bld) [Vol rate/Area] mL/min/{1.73_m2} [facility] Comment on above: Performed By: #### GABINO BENOIT #### [address] Glucose [Mass/Vol] 100 mg/dL Normal 70-100 [facility] Comment on above: Result Comment: [place] Glucose Reference Range is dependent on time and content of last meal. Glucose of more than 200 mg/dL in a nonstressed, ambulatory subject supports the diagnosis of Diabetes Mellitus. ADA recommended reference range Performed By: #### GABINO BENOIT #### [address] Potassium [Moles/Vol] 4.4 mmol/L Normal 3.5-5.1 [facility] Comment on above: Performed By: #### GABINO BENOIT #### [address] [place] [address] [place] Sodium [Moles/Vol] 139 mmol/L Normal 136-145 [facility] Comment on above: Performed By: #### GABINO BENOIT #### [facility] [address] [place] [address] Urea nitrogen [Mass/Vol] 15 mg/dL Normal 7-25 [facility] Comment on above: Performed By: #### GABINO BENOIT #### [address] Complete Blood Count Auto Di ffon 09-13-2022 Basophils (Bld) [#/Vol] 0.0 10*3/uL Normal 0.0-0.2 [facility] Comment on above: Result Comment: PERF ORMED BY: [place] [address] PATHOLOGIST NET ARCHITECT PETER RAYO M.D. Performed By: #### GABINO BENOIT #### [address] Basophils/100 WBC (Bld) 0.4 % Normal . [facility] Comment on above: Performed By: #### GABINO BENOIT #### [address] Eosinophils (Bld) [#/Vol] 0.0 10*3/uL Normal 0.0-0.45 [facility] Comment on above: Performed By: #### GABINO BENOIT #### [facility] [address] [place] [address] Eosinophils/100 WBC (Bld) 0.3 % Normal . [facility] Comment on above: Performed By: #### GABINO BENOIT #### [address] Erythrocyte distribution width (RBC) [Ratio] 14.7 % Normal 11.9-15.3 [facility] Comment on above: Performed By: #### GABINO BENOIT #### [address] Hematocrit (Bld) [Volume fraction] 38.6 % Normal 34.0-46.4 [facility] Comment on above: Performed By: #### GABINO BENOIT #### [address] Hemoglobin (Bld) [Mass/Vol] 13.0 g/dL Normal 11.8-15.4 [facility] Comment on above: Performed By: #### GABINO BENOIT #### [address] Lymphocytes (Bld) [#/Vol] 1.2 10*3/uL Normal 1.00-4.8 [facility] Comment on above: Performed By: #### GABINO BENOIT #### [address] Lymphocytes/100 WBC (Bld) 10.8 % Normal . [facility] Comment on above: Performed By: #### GABINO BENOIT #### [address] MCH (RBC) [Entitic mass] 31.2 pg Normal 24.7-34.3 [facility] Comment on above: Performed By: #### GABINO BENOIT #### [address] MCV (RBC) [Entitic vol] 92.6 fL Normal 80-100 [facility] Comment on above: Performed By: #### GABINO BENOIT #### [address] Mean Corpuscular HGB Conc 33.7 g/dL Normal 32.0-35.0 [facility] Comment on above: Performed By: #### GABINO BENOIT #### [place] [id number] [place] Monocytes (Bld) [#/Vol] 0.6 10*3/uL Normal 0.0-0.8 [facility] Comment on above: Performed By: #### GABINO BENOIT #### [facility] [address] [place] [address] Monocytes/100 WBC (Bld) 5.6 % Normal . [facility] Comment on above: Performed By: #### GABINO BENOIT #### [facility] [address] [place] [address] Neutrophils (Bld) [#/Vol] 9.2 10*3/uL High 1.8-7.7 [facility] Comment on above: Performed By: #### GABINO BENOIT #### [facility] [address] [place] [address] Neutrophils/100 WBC (Bld) 82.9 % Normal . [facility] Comment on above: Performed By: #### GABINO BENOIT #### [facility] [address] [place] [address] NRBC% 0.1 /100{WBC} Normal 0-0.5 [facility] Comment on above: Performed By: #### GABINO BENOIT #### [facility] [address] [place] [address] Platelet mean volume (Bld) [Entitic vol] 7.5 fL Normal 6.3-10.7 [facility] Comment on above: Performed By: #### GABINO BENOIT #### [facility] [address] [place] [address] [place] Platelets (Bld) [#/Vol] 234 10*3/uL Normal 150-450 [facility] Comment on above: Performed By: #### GABINO BENOIT #### [facility] [address] [place] [address] [place] RBC (Bld) [#/Vol] 4.18 10*6/uL Normal 3.60-5.00 [facility] Comment on above: Performed By: #### R GABINO EPPERSON #### [address] WBC (Bld) [#/Vol] 11.1 10*3/uL Normal 3.8-11.6 [facility] Comment on above: Performed By: #### R GABINO EPPERSON #### [address] ABO/Rh Retypeon 09-12-2022 ABO/RH Recheck Result Positive Normal [facility] Comment on above: Result Comment: PERF ORMED BY: [place] [address] PATHOLOGIST NET ARCHITECT PETER RAYO M.D. Arterial Blood Gason 023 ABG Base Excess 3.6 mmol/L High -3.0-3.0 [facility] Comment on above: Performed By: #### A BG #### Point of Care testing , ABG Frac Inspired O2 32 % Normal [facility] Comment on above: Performed By: #### A BG #### Point of Care testing , ABG Oxygen Content 8.4 mmol/L Normal 6.6-9.7 [facility] Comment on above: Performed By: #### A BG #### Point of Care testing , ABG Oxygen Saturation 98.5 % Normal 95.0-100.0 [facility] Comment on above: Performed By: #### A BG #### Point of Care testing , ABG PCO2 50.6 mm[Hg] Off scale high 35.0-45.0 [facility] Comment on above: Performed By: #### A BG #### Point of Care testing , ABG PH 7.39 Normal 7.35-7.45 [facility] Comment on above: Performed By: #### A BG #### Point of Care testing , ABG PO2 129.8 mm[Hg] Off scale high 80.0-100.0 [facility] Comment on above: Performed By: #### A BG #### Point of Care testing , CO2 [Moles/Vol] 31.2 mmol/L High 23.0-27.0 [facility] Comment on above: Performed By: #### A BG #### Point of Care testing , HCO3 (Bld) [Moles/Vol] 29.6 mmol/L High 23.0-29.0 [facility] Comment on above: Performed By: #### A BG #### Point of Care testing , Oxygen Device Nasal Cannula Normal [facility] Comment on above: Performed By: #### A BG #### Point of Care testing , Respiratory Critical Normal [facility] Comment on above: Result Comment: Crit ical Value called on: 09/12/2022 at 05:34 PERFORMED BY: [place] [address] PATHOLOGIST NET ARCHITECT PETER RAYO M.D. Performed By: #### A BG #### Point of Care testing , VBG Draw Site Left Radial Normal [facility] Comment on above: Performed By: #### A BG #### Point of Care testing , Basic Metabolic Panelon 08-22 Anion gap [Moles/Vol] 9.7 mmol/L Normal 6.0-15.0 [facility] Comment on above: Performed By: #### B MP, CBC #### [facility] [address] [place] [address] [place] Calcium [Mass/Vol] 10.0 mg/dL Normal 8.6-10.3 [facility] Comment on above: Performed By: #### B MP, CBC #### [facility] [address] [place] [address] [place] Chloride [Moles/Vol] 101 mmol/L Normal 98-107 [facility] Comment on above: Performed By: #### B MP, CBC #### [facility] [address] [place] [address] [place] CO2 [Moles/Vol] 33.2 mmol/L High 21.0-31.0 [facility] Comment on above: Performed By: #### B MP, CBC #### [facility] [address] [place] [address] [place] Creatinine [Mass/Vol] 0.46 mg/dL Low 0.60-1.20 [facility] Comment on above: Performed By: #### B MP, CBC #### [facility] [address] [place] [address] [place] Creatinine Clr Calc Pharmacy 72.[address] [facility] Comment on above: Result Comment: PERF ORMED BY: [facility] [address] [place] [address] PATHOLOGIST NET ARCHITECT PETER RAYO M.D. Performed By: #### B MP, CBC #### [place] [address] [place] GFR/1.73 sq M.predicted MDRD (S/P/Bld) [Vol rate/Area] mL/min/{1.73_m2} [facility] Comment on above: Performed By: #### B MP, CBC #### [place] [address] [place] Glucose [Mass/Vol] 119 mg/dL High 70-100 [facility] Comment on above: Result Comment: [facility] Glucose Reference Range is dependent on time and content of last meal. Glucose of more than 200 mg/dL in a nonstressed, ambulatory subject supports the diagnosis of Diabetes Mellitus. ADA recommended reference range Performed By: #### B MP, CBC #### [facility] [address] [place] [address] [place] Potassium [Moles/Vol] 4.9 mmol/L Normal 3.5-5.1 [facility] Comment on above: Performed By: #### B MP, CBC #### [facility] [address] [place] [address] [place] Sodium [Moles/Vol] 139 mmol/L Normal 136-145 [facility] Comment on above: Performed By: #### B MP, CBC #### [place] [address] [place] Urea nitrogen [Mass/Vol] 17 mg/dL Normal 7-25 [facility] Comment on above: Performed By: #### B MP, CBC #### [address] Complete Blood Count Auto Di ffon 09-12-2022 Basophils (Bld) [#/Vol] 0.1 10*3/uL Normal 0.0-0.2 [facility] Comment on above: Result Comment: PERF ORMED BY: [place] [address] PATHOLOGIST NET ARCHITECT PETER RAYO M.D. Performed By: #### B MP, CBC #### [address] Basophils/100 WBC (Bld) 0.5 % Normal . [facility] Comment on above: Performed By: #### B MP, CBC #### [address] Eosinophils (Bld) [#/Vol] 0.0 10*3/uL Normal 0.0-0.45 [facility] Comment on above: Performed By: #### B MP, CBC #### [address] Eosinophils/100 WBC (Bld) 0.2 % Normal . [facility] Comment on above: Performed By: #### B MP, CBC #### [address] Erythrocyte distribution width (RBC) [Ratio] 14.5 % Normal 11.9-15.3 [facility] Comment on above: Performed By: #### B MP, CBC #### [address] Hematocrit (Bld) [Volume fraction] 39.2 % Normal 34.0-46.4 [facility] Comment on above: Performed By: #### B MP, CBC #### [address] Hemoglobin (Bld) [Mass/Vol] 13.1 g/dL Normal 11.8-15.4 [facility] Comment on above: Performed By: #### B MP, CBC #### [facility] [address] [place] [address] [place] Lymphocytes (Bld) [#/Vol] 1.0 10*3/uL Normal 1.00-4.8 [facility] Comment on above: Performed By: #### B MP, CBC #### [facility] [address] Lymphocytes/100 WBC (Bld) 8.0 % Normal . [facility] Comment on above: Performed By: #### B MP, CBC #### [facility] [address] MCH (RBC) [Entitic mass] 30.8 pg Normal 24.7-34.3 [facility] Comment on above: Performed By: #### B MP, CBC #### [facility] [address] MCV (RBC) [Entitic vol] 92.3 fL Normal 80-100 [facility] Comment on above: Performed By: #### B MP, CBC #### [facility] [address] Mean Corpuscular HGB Conc 33.3 g/dL Normal 32.0-35.0 [facility] Comment on above: Performed By: #### B MP, CBC #### [facility] [address] [place] [address] [place] Monocytes (Bld) [#/Vol] 0.6 10*3/uL Normal 0.0-0.8 [facility] Comment on above: Performed By: #### B MP, CBC #### [facility] [address] [place] [address] [place] Monocytes/100 WBC (Bld) 4.8 % Normal . [facility] Comment on above: Performed By: #### B MP, CBC #### [facility] [address] Neutrophils (Bld) [#/Vol] 10.3 10*3/uL High 1.8-7.7 [facility] Comment on above: Performed By: #### B MP, CBC #### [address] Neutrophils/100 WBC (Bld) 86.5 % Normal . [facility] Comment on above: Performed By: #### B MP, CBC #### [address] NRBC% 0.0 /100{WBC} Normal 0-0.5 [facility] Comment on above: Performed By: #### B MP, CBC #### [address] Platelet mean volume (Bld) [Entitic vol] 7.5 fL Normal 6.3-10.7 [facility] Comment on above: Performed By: #### B MP, CBC #### [address] Platelets (Bld) [#/Vol] 223 10*3/uL Normal 150-450 [facility] Comment on above: Performed By: #### B MP, CBC #### [address] RBC (Bld) [#/Vol] 4.25 10*6/uL Normal 3.60-5.00 [facility] Comment on above: Performed By: #### B MP, CBC #### [address] WBC (Bld) [#/Vol] 11.9 10*3/uL High 3.8-11.6 [facility] Comment on above: Performed By: #### B MP, CBC #### [address] Laboratory - Chemistry and C hemistry - challengeOrdered By: Boni Lincoln on 09-12-2022 CO2 [Moles/Vol] 31.2 mmol/L 23.0-27.0 [facility] HCO3 (Bld) [Moles/Vol] 29.6 mmol/L 23.0-29.0 [facility] No Panel InformationOrdered By: Boni Lincoln on 09-12-2022 Arterial Blood Base Excess 3.6 mmol/L -3.0-3.0 [facility] Arterial Blood Oxygen Content 8.4 mmol/L 6.6-9.7 [facility] Arterial Blood Oxygen Saturation 98.5 % 95.0-100.0 [facility] Arterial Blood Partial Pressure CO2 50.6 mm[Hg] 35.0-45.0 [facility] Arterial Blood Partial Pressure O2 129.8 mm[Hg] 80.0-100.0 [facility] Arterial Blood pH 7.39 7.35-7.45 [facility] Blood Gas Critical Value See comment [facility] Comment on above: Critical Value bolivar d on: 09/12/2022 at 05:34 Blood Gas Sample Site Left radial [facility] FiO2 32 % [facility] Oxygen Delivery Device Nasal cannula [facility] Type and Screenon 09-12-2022 ABO and Rh group Nom (Bld) Blood group A Rh(D) positive Normal [facility] Comment on above: Result Comment: PERF ORMED BY: [facility] [address] [place] [address] PATHOLOGIST NET ARCHITECT PETER RAYO M.D. Basic Metabolic Panelon 08-22 Anion gap [Moles/Vol] 9.2 mmol/L Normal 6.0-15.0 [facility] Comment on above: Performed By: #### A BG #### Point of Care testing , Calcium [Mass/Vol] 9.9 mg/dL Normal 8.6-10.3 [facility] Comment on above: Performed By: #### A BG #### Point of Care testing , Chloride [Moles/Vol] 103 mmol/L Normal 98-107 [facility] Comment on above: Performed By: #### A BG #### Point of Care testing , CO2 [Moles/Vol] 31.9 mmol/L High 21.0-31.0 [facility] Comment on above: Performed By: #### A BG #### Point of Care testing , Creatinine [Mass/Vol] 0.51 mg/dL Low 0.60-1.20 [facility] Comment on above: Performed By: #### A BG #### Point of Care testing , Creatinine Clr Calc Pharmacy 72.70 [facility] Comment on above: Result Comment: PERF ORMED BY: [facility] [address] [place] [address] PATHOLOGIST NET ARCHITECT PETER RAYO M.D. Performed By: #### A BG #### Point of Care testing , GFR/1.73 sq M.predicted MDRD (S/P/Bld) [Vol rate/Area] mL/min/{1.73_m2} [facility] Comment on above: Performed By: #### A BG #### Point of Care testing , Glucose [Mass/Vol] 116 mg/dL High 70-100 [facility] Comment on above: Result Comment: [place] Glucose Reference Range is dependent on time and content of last meal. Glucose of more than 200 mg/dL in a nonstressed, ambulatory subject supports the diagnosis of Diabetes Mellitus. ADA recommended reference range Performed By: #### A BG #### Point of Care testing , Potassium [Moles/Vol] 4.1 mmol/L Normal 3.5-5.1 [facility] Comment on above: Performed By: #### A BG #### Point of Care testing , Sodium [Moles/Vol] 140 mmol/L Normal 136-145 [facility] Comment on above: Performed By: #### A BG #### Point of Care testing , Urea nitrogen [Mass/Vol] 18 mg/dL Normal 7-25 [facility] Comment on above: Performed By: #### A BG #### Point of Care testing , Complete Blood Count Auto Di ffon 09-11-2022 Basophils (Bld) [#/Vol] 0.0 10*3/uL Normal 0.0-0.2 [facility] Comment on above: Result Comment: PERF ORMED BY: [facility] [address] [place] [address] PATHOLOGIST NET ARCHITECT PETER RAYO M.D. Performed By: #### A BG #### Point of Care testing , Basophils/100 WBC (Bld) 0.5 % Normal . [facility] Comment on above: Performed By: #### A BG #### Point of Care testing , Eosinophils (Bld) [#/Vol] 0.0 10*3/uL Normal 0.0-0.45 [facility] Comment on above: Performed By: #### A BG #### Point of Care testing , Eosinophils/100 WBC (Bld) 0.0 % Normal . [facility] Comment on above: Performed By: #### A BG #### Point of Care testing , Erythrocyte distribution width (RBC) [Ratio] 14.5 % Normal 11.9-15.3 [facility] Comment on above: Performed By: #### A BG #### Point of Care testing , Hematocrit (Bld) [Volume fraction] 37.6 % Normal 34.0-46.4 [facility] Comment on above: Performed By: #### A BG #### Point of Care testing , Hemoglobin (Bld) [Mass/Vol] 12.7 g/dL Normal 11.8-15.4 [facility] Comment on above: Performed By: #### A BG #### Point of Care testing , Lymphocytes (Bld) [#/Vol] 0.8 10*3/uL Low 1.00-4.8 [facility] Comment on above: Performed By: #### A BG #### Point of Care testing , Lymphocytes/100 WBC (Bld) 7.6 % Normal . [facility] Comment on above: Performed By: #### A BG #### Point of Care testing , MCH (RBC) [Entitic mass] 31.3 pg Normal 24.7-34.3 [facility] Comment on above: Performed By: #### A BG #### Point of Care testing , MCV (RBC) [Entitic vol] 92.5 fL Normal 80-100 [facility] Comment on above: Performed By: #### A BG #### Point of Care testing , Mean Corpuscular HGB Conc 33.9 g/dL Normal 32.0-35.0 [facility] Comment on above: Performed By: #### A BG #### Point of Care testing , Monocytes (Bld) [#/Vol] 0.6 10*3/uL Normal 0.0-0.8 [facility] Comment on above: Performed By: #### A BG #### Point of Care testing , Monocytes/100 WBC (Bld) 5.7 % Normal . [facility] Comment on above: Performed By: #### A BG #### Point of Care testing , Neutrophils (Bld) [#/Vol] 9.4 10*3/uL High 1.8-7.7 [facility] Comment on above: Performed By: #### A BG #### Point of Care testing , Neutrophils/100 WBC (Bld) 86.2 % Normal . [facility] Comment on above: Performed By: #### A BG #### Point of Care testing , NRBC% 0.1 /100{WBC} Normal 0-0.5 [facility] Comment on above: Performed By: #### A BG #### Point of Care testing , Platelet mean volume (Bld) [Entitic vol] 7.5 fL Normal 6.3-10.7 [facility] Comment on above: Performed By: #### A BG #### Point of Care testing , Platelets (Bld) [#/Vol] 221 10*3/uL Normal 150-450 [facility] Comment on above: Performed By: #### A BG #### Point of Care testing , RBC (Bld) [#/Vol] 4.07 10*6/uL Normal 3.60-5.00 [facility] Comment on above: Performed By: #### A BG #### Point of Care testing , WBC (Bld) [#/Vol] 10.9 10*3/uL Normal 3.8-11.6 [facility] Comment on above: Performed By: #### A BG #### Point of Care testing , ECG 12 lead ECGon 09-11-2022 ECG 12 [place] [address] Electrocardiograph Report Signed Patient: Miriam German MR#: [id number] : 1955 Acct:[id number] Age/Sex: 67 / F ADM Date: 09/10/22 Loc: Room: [address] [place] [address] Type: DIS IN Attending Dr: Arnaud Max MD Ordering Provider: Arnaud Max MD Date of Service: 09/11/22 ECG/ECG [...] previous ECGs available Confirmed by MACIEL BUSTILLOS [facility], ZEHRA ([id number]) on 09/17/2022 4:54:24 PM Referred By: Electronically Signed By:ZEHRA ST MD [facility] Transcribed By: MUS Signed By Zehra St MD, [facility] 09/17/[address] [facility] MR cervical spine wo conon 0 09-11-2022 MR cervical spine wo con [facility] Main [place] [id number] MRI Report Signed Patient: Miriam German MR#: [id number] : 1955 Acct:[id number] Age/Sex: 67 / F ADM Date: 09/10/22 Loc: Room: [address] [place] [address] Type: ADM IN Attending Dr: Boni Lincoln DO Copies to: MD Boni Cardoso DO Ordering Provider: Moises Garcia MD Date of Service: 09/11/22 MR/MR [...] MD 09/11/22 1055 Signed By: 09/11/[address] [facility] XR chest 1V portableon 09-11 XR chest 1V portable [facility] Main [place] [address] [place] [address] XRay Report Signed Patient: Miriam German MR#: [id number] : 1955 Acct:[id number] Age/Sex: 67 / F ADM Date: 09/10/22 Loc: Room: [address] [place] [address] Type: ADM IN Attending Dr: Boni Lincoln DO Copies to: uJlia Smyth APRN, ACNP-BC Boni Lincoln DO Ordering Provider: Julia Smyth APRN, [facility] Date of Service: 09/11/22 XR/XR chest 1V [...] Coates Jr., D.ONick09/11/2022 4:06 PM Dictation Location: [facility]--15 Transcribed By: BRUNA 09/11/22 1606 Dictated By: Tom Coates Jr, DO 09/11/22 1602 Signed By: 09/11/[address] 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 Normal [facility] Comment on above: Performed By: #### A NAC #### [place] [address] .BF Cell Cnt RBC Mon 023 Fluid RBC Count 73385 /mcL Normal [facility] Comment on above: Performed By: #### C [id number] #### [place] [address] .BF Cell Cnt WBC Mon 023 Fluid WBC Count 1025 /mcL Normal [facility] Comment on above: Performed By: #### . Body Fluid Cell Count WBC Manual #### [place] [address] .BF Diffon 08-07-2022 Fluid Mononuclear Cells 85 % Normal [facility] Comment on above: Performed By: #### . Body Fluid Differential #### [place] [address] Fluid Other Cells 4 % Normal [facility] Comment on above: Performed By: #### . Body Fluid Differential #### [place] [address] Fluid Polynuclear Cells 11 % Normal [facility] Comment on above: Performed By: #### . Body Fluid Differential #### [place] [address] BF Cell Counton 08-07-2022 Body Fluid Cell Cnt Type Misc Fld Normal [facility] Comment on above: Order Comment: RIGHT Shoulder Joint Fluid Performed By: #### F LCC #### [place] [address] C Sterile BFon 08-07-2022 C Sterile BF RIGHT Shoulder Joint Fluid Final No growth at 48 hours. Gram Stain Few White Blood Cells No organisms seen. Normal [facility] Comment on above: Performed By: #### C SBF #### [facility] (DEFAULT) [address] [place] [address] [facility] [address] [place] [address] Crystalson 08-07-2022 Fluid For Crystal Analysis NoCrystals Seen Normal NoCrystals Seen [facility] Comment on above: Performed By: #### F LCA #### [facility] [address] [place] [address] MRI Shoulder w/o Contrast Ri [facility] 06-19-2022 MRI Shoulder w/o Contrast Right [...] Electronically Signed in Other Vendor System) Normal [facility] CT LUNG CANCER SCREENINGon 0 [...] ZAN HARRIS Date: 2022-05-13 09:42 Normal [facility] RHEUMATOID FACTORon 05-11-19 23 RA Latex Turbid. >650.0 Critically high <14.0 [facility] Comment on above: Result Comment: Resu lts confirmed on dilution. Performed By: #### P OCGLUC #### [facility] [address] [place] [address] Dr. Laila Castle Basic Metabolic Panelon 04-23 Basic Metabolic Panel [facility] [employer] Other CBC AUTO DIFFon 05-10-2022 BASO # 0.0 103/ul Normal 0.0-0.1 [facility] Comment on above: Performed By: #### C MP #### [facility] [address] [place] [address] Dr. Laila Castle Basophils/100 WBC (Bld) 0.3 % Normal 0.2-2.0 [facility] Comment on above: Performed By: #### C MP #### [facility] [address] [place] [address] Dr. Laila Castel EO # 0.1 103/ul Normal 0.0-0.7 [facility] Comment on above: Performed By: #### C MP #### [facility] [address] [place] [address] Dr. Laila Castle Eosinophils/100 WBC (Bld) 0.5 % Critically low 0.9-7.0 [facility] Comment on above: Performed By: #### C MP #### [facility] [address] [place] [address] Dr. Laila Castle Erythrocyte distribution width (RBC) [Ratio] 14.1 % Normal 11.0-15.0 [facility] Comment on above: Performed By: #### C MP #### [facility] [address] [place] [address] Dr. Laila Castle Hematocrit (Bld) [Volume fraction] 40.9 % Normal 36.0-48.0 [facility] Comment on above: Performed By: #### C MP #### [facility] [address] [place] [address] Dr. Laila Castle Hemoglobin (Bld) [Mass/Vol] 12.8 g/dL Normal 12.0-16.0 [facility] Comment on above: Performed By: #### C MP #### [facility] [address] [place] [address] Dr. Laila Castle IG # 0.11 10e3/ul Critically high 0.00-0.03 [facility] Comment on above: Performed By: #### C MP #### [facility] [address] [place] [address] Dr. Laila Castle IG % 1.2 % Critically high 0.0-0.5 [facility] Comment on above: Performed By: #### C MP #### [facility] [address] [place] [address] Dr. Laila Castle LYMPH # 1.0 103/ul Critically low 1.2-3.8 [facility] Comment on above: Performed By: #### C MP #### [facility] [address] [place] [address] Dr. Laila Castle Lymphocytes/100 WBC (Bld) 10.0 % Critically low 20.5-60.0 [facility] Comment on above: Performed By: #### C MP #### [facility] [address] [place] [address] Dr. Laila Castle MANUAL DIFF REQ NO Normal [facility] Comment on above: Performed By: #### C MP #### [facility] [address] [place] [address] Dr. Laila Castle MCH (RBC) [Entitic mass] 30.3 pg Normal 26.7-34.0 [facility] Comment on above: Performed By: #### C MP #### [facility] [address] [place] [address] [address] Laila Castle MCHC (RBC) [Mass/Vol] 31.3 g/dL Normal 29.9-35.2 [facility] Comment on above: Performed By: #### C MP #### [facility] [address] [place] [address] [address] Laila Castle MCV (RBC) [Entitic vol] 96.7 fL Normal 81.0-99.0 [facility] Comment on above: Performed By: #### C MP #### [facility] [address] [place] [address] Dr. Laila Castle MONO # 0.6 103/ul Normal 0.3-0.8 [facility] Comment on above: Performed By: #### C MP #### [facility] [address] [place] [address] [address] Laila Castle Monocytes/100 WBC (Bld) 6.5 % Normal 1.7-12.0 [facility] Comment on above: Performed By: #### C MP #### [facility] [address] [place] [address] Dr. Laila Castle NEUT # 7.8 103/ul Critically high 1.4-6.5 [facility] Comment on above: Performed By: #### C MP #### [facility] [address] [place] [address] [address] Laila Castle Neutrophils/100 WBC (Bld) 81.5 % Critically high 43.0-75.0 [facility] Comment on above: Performed By: #### C MP #### [facility] [address] [place] [address] [address] Laila Castle Platelet mean volume (Bld) [Entitic vol] 9.5 fL Normal 9.5-13.5 [facility] Comment on above: Performed By: #### C MP #### [facility] [address] [place] [address] Dr. Laila Castle PLT 217 103/ul Normal 150-450 [facility] Comment on above: Performed By: #### C MP #### [facility] [address] [place] [address] Dr. Laila Castle RBC 4.23 106/ul Normal 4.20-5.40 [facility] Comment on above: Performed By: #### C MP #### [facility] [address] [place] [address] Dr. Laila Castle WBC 9.6 103/ul Normal 4.0-11.0 [facility] Comment on above: Performed By: #### C MP #### [facility] [address] [place] [address] Dr. Laila Castle Complete Blood Count and Dif mandeep 05-10-2022 Anisocytosis Ql (Bld) [facility] [employer] Other Basophilic stippling LM Ql (d) [facility] [employer] Other RBC morphology finding Nom (d) [facility] [employer] Other PROF CHEM 8 (BAS METB)on Anion gap [Moles/Vol] 11.2 mmol/L Normal [facility] Comment on above: Performed By: #### C MP #### [facility] [address] [place] [address] Dr. Laila Castle Calcium [Mass/Vol] 10.3 mg/dL Critically high 8.5-10.1 [facility] Comment on above: Performed By: #### C MP #### [facility] [address] [place] [address] Dr. Laila Castle Chloride [Moles/Vol] 106 mmol/L Normal 98-107 [facility] Comment on above: Performed By: #### C MP #### [facility] [address] [place] [address] Dr. Laila Castle CO2 [Moles/Vol] 31.2 mmol/L Normal 21.0-32.0 [facility] Comment on above: Performed By: #### C MP #### [facility] [address] [place] [address] [address] Laila Castle Creatinine [Mass/Vol] 0.59 mg/dL Normal 0.55-1.02 [facility] Comment on above: Performed By: #### C MP #### [facility] [address] [place] [address] [address] Laila Castle EGFR-AF LEBANESE >60 Normal >=60 [facility] Comment on above: Performed By: #### C MP #### [facility] [address] [place] [address] [address] Laila Castle EGFR-NON AF LEBANESE >60 Normal >=60 [facility] Comment on above: Performed By: #### C MP #### [facility] [address] [place] [address] [address] Laila Castle Glucose [Mass/Vol] 90 mg/dL Normal 74-106 [facility] Comment on above: Performed By: #### C MP #### [facility] [address] [place] [address] [address] Laila Castle Potassium [Moles/Vol] 4.4 mmol/L Normal 3.5-5.1 [facility] Comment on above: Performed By: #### C MP #### [facility] [address] [place] [address] [address] Laila Castle Sodium [Moles/Vol] 144 mmol/L Normal 136-145 [facility] Comment on above: Performed By: #### C MP #### [facility] [address] [place] [address] [address] Laila Castle Urea nitrogen [Mass/Vol] 12.0 mg/dL Normal 7.0-18.0 [facility] Comment on above: Performed By: #### C MP #### [facility] [address] [place] [address] Dr. Laila Castle Urea nitrogen/Creatinine [Mass ratio] 20.3 mg/mg Normal [facility] Comment on above: Performed By: #### C MP #### [facility] [address] [place] [address] [address] Laila Castle SED [facility] SED RATE 42 mm/hr Critically high <=30 [facility] Comment on above: Performed By: #### C MP #### [facility] [address] [place] [address] [address] Laila Castle TSHon 05-10-2022 TSH 0.528 uIU/mL Normal 0.358-3.740 [facility] Comment on above: Performed By: #### C MP #### [facility] [address] [place] [address] [address] Laila Castle VITAMIN D 25 OHon 05-10-2022 VIT D 25-OH 66.2 ng/mL Normal [facility] Comment on above: Performed By: #### V ITAD #### [facility] [address] [place] [address] [address] Laila Castle VIT D RANGES SEE BELOW Normal [facility] Comment on above: Result Comment: <20 ng/mL Vit D deficient 20 - <30 ng/mL Vit D insufficient 30 - 100 ng/mL Vit D sufficient >100 ng/mL Potential Toxicity Performed By: #### V ITAD #### [facility] [address] [place] [address] [address] Laila Castle C-Reactive Proteinon 023 CRP [Mass/Vol] 4.7 mg/L Normal 0.0-5.0 [facility] Comment on above: Performed By: #### C RP, CDP, SED #### [facility] [employer] [facility] [place] [address] Accounts Supervisor: Chriss Townsend MD CRP High sensitivity method [Mass/Vol] 4.7 mg/L 0.0 - 5.0 mg/L [facility] [employer] CBC with Auto Differentialon 05-08-2022 Absolute Eos # [facility] [employer] Immature Granulocyte 0.12 [facility] Absolute Lymph # 1.23 [facility] [employer] Absolute Beltrami # 0.62 [facility] [employer] Basophils (Bld) [#/Vol] 0.03 10*3/uL [facility] [employer] Basophils/100 WBC (Bld) 0 % 0 - 2 % [facility] Eosinophils/100 WBC (Bld) 0 % Low 1 - 4 % [facility] Hematocrit (Bld) [Volume fraction] 44.0 % 36.3 - 47.1 % [facility] Hemoglobin (Bld) [Mass/Vol] 13.6 g/dL 11.9 - 15.1 g/dL [facility] Immature granulocytes/100 WBC (Bld) 1 % High 0 [facility] Interpretation and review of laboratory results Abnormal [facility] Lymphocytes/100 WBC (Bld) 11 % Low 24 - 43 % [facility] MCH (RBC) [Entitic mass] 30.6 pg 25.2 - 33.5 pg [facility] MCHC (RBC) [Mass/Vol] 30.9 g/dL 28.4 - 34.8 g/dL [facility] MCV (RBC) [Entitic vol] 98.9 fL 82.6 - 102.9 fL [facility] Monocytes/100 WBC (Bld) 6 % 3 - 12 % [facility] NRBC Automated 0.0 0.0 per 100 WBC [facility] Platelet distribution width (Bld) [Ratio] 14.2 % 11.8 - 14.4 % [facility] Platelet mean volume (Bld) [Entitic vol] 9.5 fL 8.1 - 13.5 fL [facility] Platelets (Bld) [#/Vol] 231 10*3/uL [facility] RBC (Bld) [#/Vol] 4.45 10*6/uL 3.95 - 5.1 1 m/uL [facility] Segmented neutrophils/100 WBC (Bld) 82 % High 36 - 65 % [facility] [facility] Segs Absolute 9.31 High [facility] WBC (Bld) [#/Vol] 11.3 10*3/uL [facility] CBC with Diffon 05-08-2022 Abs. Basophil 0.03 k/uL Normal 0.00-0.20 [facility] Comment on above: Performed By: #### C RP, CDP, SED #### [address] [address] Accounts Supervisor: Chriss Townsend MD Abs. Eosinophil <0.03 Normal 0.00-0.44 [facility] Comment on above: Performed By: #### C RP, CDP, SED #### [facility] [address] [place] [address] Accounts Supervisor: Chriss Townsend MD Abs.Imm.Granulocyte 0.12 k/uL Normal 0.00-0.30 [facility] Comment on above: Performed By: #### C RP, CDP, SED #### [facility] [address] [place] [address] Accounts Supervisor: Chriss Townsend MD Abs.Neutrophil (Seg) 9.31 k/uL High 1.50-8.10 [facility] Comment on above: Performed By: #### C RP, CDP, SED #### [facility] [address] [place] [address] Accounts Supervisor: Chriss Twonsend MD Basophils/100 WBC (Bld) 0 % Normal 0-2 [facility] Comment on above: Performed By: #### C RP, CDP, SED #### [facility] [address] [place] [address] Accounts Supervisor: Chriss Townsend MD Eosinophils/100 WBC (Bld) 0 % Low 1-4 [facility] Comment on above: Performed By: #### C RP, CDP, SED #### [facility] [address] [place] [address] Accounts Supervisor: Chriss Townsend MD Erythrocyte distribution width (RBC) [Ratio] 14.2 % Normal 11.8-14.4 [facility] Comment on above: Performed By: #### C RP, CDP, SED #### [facility] [address] [place] [address] Accounts Supervisor: Chriss Townsend MD Hematocrit (Bld) [Volume fraction] 44.0 % Normal 36.3-47.1 [facility] Comment on above: Performed By: #### C RP, CDP, SED #### [address] [address] Accounts Supervisor: Chriss Townsend MD Hemoglobin (Bld) [Mass/Vol] 13.6 g/dL Normal 11.9-15.1 [facility] Comment on above: Performed By: #### C RP, CDP, SED #### [address] [address] Accounts Supervisor: Chriss Townsend MD Immature granulocytes/100 WBC (Bld) 1 % High 0 [facility] Comment on above: Performed By: #### C RP, CDP, SED #### [address] [address] Accounts Supervisor: Chriss Townsend MD Lymphocytes (Bld) [#/Vol] 1.23 10*3/uL Normal 1.10-3.70 [facility] Comment on above: Performed By: #### C RP, CDP, SED #### [address] [address] Accounts Supervisor: Chriss Townsend MD Lymphocytes/100 WBC (Bld) 11 % Low 24-43 [facility] Comment on above: Performed By: #### C RP, CDP, SED #### [facility] [address] [place] [address] Accounts Supervisor: Chriss Townsend MD MCH (RBC) [Entitic mass] 30.6 pg Normal 25.2-33.5 [facility] Comment on above: Performed By: #### C RP, CDP, SED #### [facility] [address] [place] [address] Accounts Supervisor: Chriss Townsend MD MCHC (RBC) [Mass/Vol] 30.9 g/dL Normal 28.4-34.[address] [facility] Comment on above: Performed By: #### C RP, CDP, SED #### [address] [address] Accounts Supervisor: Chriss Townsend MD MCV (RBC) [Entitic vol] 98.9 fL Normal 82.6-102.9 [facility] Comment on above: Performed By: #### C RP, CDP, SED #### [address] [address] Accounts Supervisor: Chriss Townsend MD Monocytes (Bld) [#/Vol] 0.62 10*3/uL Normal 0.10-1.20 [facility] Comment on above: Performed By: #### C RP, CDP, SED #### [place] [address] Accounts Supervisor: Chriss Townsend MD Monocytes/100 WBC (Bld) 6 % Normal 3-12 [facility] Comment on above: Performed By: #### C RP, CDP, SED #### [address] [address] Accounts Supervisor: Chriss Townsend MD Neutrophil (Seg) 82 % High 36-65 [facility] Comment on above: Performed By: #### C RP, CDP, SED #### [place] [address] Accounts Supervisor: Chriss Townsend MD NRBC Automated 0.0 per 100 WBC Normal 0.0 [facility] Comment on above: Performed By: #### C RP, CDP, SED #### [address] [address] Accounts Supervisor: Chriss Townsend MD Platelet mean volume (Bld) [Entitic vol] 9.5 fL Normal 8.1-13.5 [facility] Comment on above: Performed By: #### C RP, CDP, SED #### [facility] [address] [place] [address] Accounts Supervisor: Chriss Townsend MD Platelets (Bld) [#/Vol] 231 10*3/uL Normal 138-453 [facility] Comment on above: Performed By: #### C RP, CDP, SED #### [facility] [address] [place] [address] Accounts Supervisor: Chriss Townsend MD RBC (Bld) [#/Vol] 4.45 10*6/uL Normal 3.95-5.11 [facility] Comment on above: Performed By: #### C RP, CDP, SED #### [facility] [address] [place] [address] Accounts Supervisor: Chriss Townsend MD WBC (Bld) [#/Vol] 11.3 10*3/uL Normal 3.5-11.3 [facility] Comment on above: Performed By: #### C RP, CDP, SED #### [facility] [address] [place] [address] Accounts Supervisor: Chriss Townsend MD Sedimentation Rateon 023 Sedimentation Rate 18 mm/Hr Normal 0-30 [facility] Comment on above: Performed By: #### C RP, CDP, SED #### [facility] [address] [place] [address] Accounts Supervisor: Chriss Townsend MD ESR (Bld) [Velocity] 18 mm/h [facility] Telephone Encounteron 2021 [employer] Chief Authentication Interface Message Text Most recent visit [...] for TST-PPD, intradermal (PPD) (CVX=[id number]) Normal [facility] CBC AUTO DIFFon 11-12-2021 BASO # 0.0 103/ul Normal 0.0-0.1 [facility] Comment on above: Performed By: #### C BC #### [facility] [address] [place] [address] Dr. Laila Castle Basophils/100 WBC (Bld) 0.4 % Normal 0.2-2.0 [facility] Comment on above: Performed By: #### C BC #### [facility] [address] [place] [address] Dr. Laila Castle EO # 0.0 103/ul Normal 0.0-0.7 [facility] Comment on above: Performed By: #### C BC #### [facility] [address] [address] [address] Laila Castle Eosinophils/100 WBC (Bld) 0.0 % Critically low 0.9-7.0 [facility] Comment on above: Performed By: #### C BC #### [facility] [address] [place] [address] Dr. Laila Castle Erythrocyte distribution width (RBC) [Ratio] 14.6 % Normal 11.0-15.0 [facility] Comment on above: Performed By: #### C BC #### [facility] [address] [place] [address] Dr. Laila Castle Hematocrit (Bld) [Volume fraction] 40.3 % Normal 36.0-48.0 [facility] Comment on above: Performed By: #### C BC #### [facility] [address] [address] [address] Laila Castle Hemoglobin (Bld) [Mass/Vol] 12.5 g/dL Normal 12.0-16.0 [facility] Comment on above: Performed By: #### C BC #### [facility] [address] [address] [address] Laila Castle IG # 0.24 10e3/ul Critically high 0.00-0.03 [facility] Comment on above: Performed By: #### C BC #### [facility] [address] [address] [address] Laila Castle IG % 2.2 % Critically high 0.0-0.5 [facility] Comment on above: Performed By: #### C BC #### [facility] [address] [address] [address] Laila Castle LYMPH # 0.9 103/ul Critically low 1.2-3.8 [facility] Comment on above: Performed By: #### C BC #### [facility] [address] [address] [address] Laila Castle Lymphocytes/100 WBC (Bld) 7.8 % Critically low 20.5-60.0 [facility] Comment on above: Performed By: #### C BC #### [facility] [address] [address] [address] Laila Castle MANUAL DIFF REQ NO Normal [facility] Comment on above: Performed By: #### C BC #### [facility] [address] [address] [address] Laila Castle MCH (RBC) [Entitic mass] 28.7 pg Normal 26.7-34.0 [facility] Comment on above: Performed By: #### C BC #### [facility] [address] [address] [address] Laila Castle MCHC (RBC) [Mass/Vol] 31.0 g/dL Normal 29.9-35.2 [facility] Comment on above: Performed By: #### C BC #### [facility] [address] [address] [address] Laila Castle MCV (RBC) [Entitic vol] 92.4 fL Normal 81.0-99.0 [facility] Comment on above: Performed By: #### C BC #### [facility] [address] [address] [address] Laila Castle MONO # 0.7 103/ul Normal 0.3-0.8 [facility] Comment on above: Performed By: #### C BC #### [facility] [address] [place] [address] Dr. Laila Castle Monocytes/100 WBC (Bld) 6.4 % Normal 1.7-12.0 [facility] Comment on above: Performed By: #### C BC #### [facility] [address] [place] [address] Dr. Laila Castle NEUT # 9.2 103/ul Critically high 1.4-6.5 [facility] Comment on above: Performed By: #### C BC #### [facility] [address] [place] [address] Dr. Laila Castle Neutrophils/100 WBC (Bld) 83.2 % Critically high 43.0-75.0 [facility] Comment on above: Performed By: #### C BC #### [facility] [address] [place] [address] Dr. Laila Castle Platelet mean volume (Bld) [Entitic vol] 9.0 fL Critically low 9.5-13.5 [facility] Comment on above: Performed By: #### C BC #### [facility] [address] [place] [address] Dr. Laila Castle PLT 250 103/ul Normal 150-450 [facility] Comment on above: Performed By: #### C BC #### [facility] [address] [place] [address] Dr. Laila Castle RBC 4.36 106/ul Normal 4.20-5.40 [facility] Comment on above: Performed By: #### C BC #### [facility] [address] [place] [address] Dr. Laila Castle WBC 11.1 103/ul Critically high 4.0-11.0 [facility] Comment on above: Performed By: #### C BC #### [facility] [address] [place] [address] Dr. Laila Castle POINT OF CARE GLUCOSEon 10-22 Glucose [Mass/Vol] 116 mg/dL Critically high 74-106 [facility] Comment on above: Performed By: #### P OCGLUC #### [facility] [address] [place] [address] Dr. Laila Castle Glucose [Mass/Vol] 144 mg/dL Critically high 74-106 [facility] Comment on above: Performed By: #### P OCGLUC #### [facility] [address] [place] [address] Dr. Laila Castle PROF 14(COMP METB)on 022 Albumin [Mass/Vol] 2.8 g/dL Critically low 3.4-5.0 [facility] Comment on above: Performed By: #### C MP #### [facility] [address] [place] [address] Dr. Laila Castle Albumin/Globulin [Mass ratio] 0.8 {ratio} Normal [facility] Comment on above: Performed By: #### C MP #### [facility] [address] [place] [address] Dr. Laila Castle ALP [Catalytic activity/Vol] 88 U/L Normal 46-116 [facility] Comment on above: Performed By: #### C MP #### [facility] [address] [place] [address] Dr. Laila Castle ALT [Catalytic activity/Vol] 19 U/L Normal 14-59 [facility] Comment on above: Performed By: #### C MP #### [facility] [address] [place] [address] Dr. Laila Castle Anion gap [Moles/Vol] 11.8 mmol/L Normal [facility] Comment on above: Performed By: #### C MP #### [facility] [address] [place] [address] Dr. Laila Castle AST [Catalytic activity/Vol] 20 U/L Normal 15-37 [facility] Comment on above: Performed By: #### C MP #### [facility] [address] [address] [address] Laila Castle Bilirubin [Mass/Vol] 0.3 mg/dL Normal 0.2-1.0 [facility] Comment on above: Performed By: #### C MP #### [facility] [address] [address] [address] Laila Castle Calcium [Mass/Vol] 9.7 mg/dL Normal 8.5-10.1 [facility] Comment on above: Performed By: #### C MP #### [facility] [address] [address] [address] Laila Castle Chloride [Moles/Vol] 106 mmol/L Normal 98-107 [facility] Comment on above: Performed By: #### C MP #### [facility] [address] [address] [address] Laila Castle CO2 [Moles/Vol] 24.6 mmol/L Normal 21.0-32.0 [facility] Comment on above: Performed By: #### C MP #### [facility] [address] [place] [address] Dr. Laila Castle Creatinine [Mass/Vol] 0.67 mg/dL Normal 0.55-1.02 [facility] Comment on above: Performed By: #### C MP #### [facility] [address] [place] [address] Dr. Laila Castle EGFR-AF LEBANESE >60 Normal >=60 [facility] Comment on above: Performed By: #### C MP #### [facility] [address] [place] [address] Dr. Laila Castle EGFR-NON AF LEBANESE >60 Normal >=60 [facility] Comment on above: Performed By: #### C MP #### [facility] [address] [place] [address] Dr. Laila Castle Globulin (S) [Mass/Vol] 3.3 g/dL Normal [facility] Comment on above: Performed By: #### C MP #### [facility] [address] [address] [address] Laila Castle Glucose [Mass/Vol] 84 mg/dL Normal 74-106 [facility] Comment on above: Performed By: #### C MP #### [facility] [address] [address] [address] Laila Castle Potassium [Moles/Vol] 3.4 mmol/L Critically low 3.5-5.1 [facility] Comment on above: Performed By: #### C MP #### [facility] [address] [address] [address] Laila Castle Protein [Mass/Vol] 6.1 g/dL Critically low 6.4-8.2 [facility] Comment on above: Performed By: #### C MP #### [facility] [address] [address] [address] Laila Castle Sodium [Moles/Vol] 139 mmol/L Normal 136-145 [facility] Comment on above: Performed By: #### C MP #### [facility] [address] [address] [address] Laila Castle Urea nitrogen [Mass/Vol] 19.0 mg/dL Critically high 7.0-18.0 [facility] Comment on above: Performed By: #### C MP #### [facility] [address] [address] [address] Laila Castle Urea nitrogen/Creatinine [Mass ratio] 28.4 mg/mg Normal [facility] Comment on above: Performed By: #### C MP #### [facility] [address] [address] [address] Laila Castle CBC AUTO DIFFon 11-11-2021 BASO # 0.0 103/ul Normal 0.0-0.1 [facility] Comment on above: Performed By: #### C BC #### [facility] [address] [address] [address] Laila Castle Basophils/100 WBC (Bld) 0.3 % Normal 0.2-2.0 [facility] Comment on above: Performed By: #### C BC #### [facility] [address] [place] [address] Dr. Laila Castle EO # 0.0 103/ul Normal 0.0-0.7 [facility] Comment on above: Performed By: #### C BC #### [facility] [address] [place] [address] Dr. Laila Castle Eosinophils/100 WBC (Bld) 0.0 % Critically low 0.9-7.0 [facility] Comment on above: Performed By: #### C BC #### [facility] [address] [place] [address] Dr. Laila Castle Erythrocyte distribution width (RBC) [Ratio] 14.5 % Normal 11.0-15.0 [facility] Comment on above: Performed By: #### C BC #### [facility] [address] [place] [address] Dr. Laila Castle Hematocrit (Bld) [Volume fraction] 38.7 % Normal 36.0-48.0 [facility] Comment on above: Performed By: #### C BC #### [facility] [address] [place] [address] Dr. Laila Castle Hemoglobin (Bld) [Mass/Vol] 12.1 g/dL Normal 12.0-16.0 [facility] Comment on above: Performed By: #### C BC #### [facility] [address] [place] [address] Dr. Laila Castle IG # 0.21 10e3/ul Critically high 0.00-0.03 [facility] Comment on above: Performed By: #### C BC #### [facility] [address] [place] [address] Dr. Laila Castle IG % 1.8 % Critically high 0.0-0.5 [facility] Comment on above: Performed By: #### C BC #### [facility] [address] [place] [address] Dr. Laila Castle LYMPH # 0.8 103/ul Critically low 1.2-3.8 [facility] Comment on above: Performed By: #### C BC #### [facility] [address] [place] [address] Dr. Laila Castle Lymphocytes/100 WBC (Bld) 6.6 % Critically low 20.5-60.0 [facility] Comment on above: Performed By: #### C BC #### [facility] [address] [place] [address] Dr. Laila Castle MANUAL DIFF REQ NO Normal [facility] Comment on above: Performed By: #### C BC #### [facility] [address] [place] [address] Dr. Laila Castle MCH (RBC) [Entitic mass] 29.1 pg Normal 26.7-34.0 [facility] Comment on above: Performed By: #### C BC #### [facility] [address] [place] [address] Dr. Laila Castle MCHC (RBC) [Mass/Vol] 31.3 g/dL Normal 29.9-35.2 [facility] Comment on above: Performed By: #### C BC #### [facility] [address] [place] [address] Dr. Laila Castle MCV (RBC) [Entitic vol] 93.0 fL Normal 81.0-99.0 [facility] Comment on above: Performed By: #### C BC #### [facility] [address] [place] [address] Dr. Laila Castle MONO # 0.6 103/ul Normal 0.3-0.8 [facility] Comment on above: Performed By: #### C BC #### [facility] [address] [place] [address] Dr. Laila Castle Monocytes/100 WBC (Bld) 5.1 % Normal 1.7-12.0 [facility] Comment on above: Performed By: #### C BC #### [facility] [address] [place] [address] Dr. Laila Castle NEUT # 10.1 103/ul Critically high 1.4-6.5 [facility] Comment on above: Performed By: #### C BC #### [facility] [address] [address] [address] Laila Castle Neutrophils/100 WBC (Bld) 86.2 % Critically high 43.0-75.0 [facility] Comment on above: Performed By: #### C BC #### [facility] [address] [address] [address] Laila Castle Platelet mean volume (Bld) [Entitic vol] 8.9 fL Critically low 9.5-13.5 [facility] Comment on above: Performed By: #### C BC #### [facility] [address] [address] [address] Laila Castle PLT 239 103/ul Normal 150-450 [facility] Comment on above: Performed By: #### C BC #### [facility] [address] [address] [address] Laila Castle RBC 4.16 106/ul Critically low 4.20-5.40 [facility] Comment on above: Performed By: #### C BC #### [facility] [address] [address] [address] Laila aCstle WBC 11.7 103/ul Critically high 4.0-11.0 [facility] Comment on above: Performed By: #### C BC #### [facility] [address] [place] [address] Dr. Laila Castle POINT OF CARE GLUCOSEon 10-22 Glucose [Mass/Vol] 132 mg/dL Critically high 74-106 [facility] Comment on above: Performed By: #### P OCGLUC #### [facility] [address] [address] [address] Laila Castle Glucose [Mass/Vol] 125 mg/dL Critically high 74-106 [facility] Comment on above: Performed By: #### C MP #### [facility] [address] [address] [address] Laila Castle Glucose [Mass/Vol] 127 mg/dL Critically high 74-106 [facility] Comment on above: Performed By: #### P OCGLUC #### [facility] [address] [address] [address] Laila Castle Glucose [Mass/Vol] 102 mg/dL Normal 74-106 [facility] Comment on above: Performed By: #### P OCGLUC #### [facility] [address] [address] [address] Laila Castle PROF 14(COMP METB)on 022 Albumin [Mass/Vol] 2.7 g/dL Critically low 3.4-5.0 [facility] Comment on above: Performed By: #### C MP #### [facility] [address] [place] [address] Dr. Laila Castle Albumin/Globulin [Mass ratio] 0.8 {ratio} Normal [facility] Comment on above: Performed By: #### C MP #### [facility] [address] [place] [address] Dr. Laila Castle ALP [Catalytic activity/Vol] 88 U/L Normal 46-116 [facility] Comment on above: Performed By: #### C MP #### [facility] [address] [place] [address] Dr. Laila Castle ALT [Catalytic activity/Vol] 16 U/L Normal 14-59 [facility] Comment on above: Performed By: #### C MP #### [facility] [address] [place] [address] Dr. Laila Castle Anion gap [Moles/Vol] 12.8 mmol/L Normal [facility] Comment on above: Performed By: #### C MP #### [facility] [address] [place] [address] Dr. Laila Castle AST [Catalytic activity/Vol] 15 U/L Normal 15-37 [facility] Comment on above: Performed By: #### C MP #### [facility] [address] [place] [address] Dr. Laila Castle Bilirubin [Mass/Vol] 0.2 mg/dL Normal 0.2-1.0 [facility] Comment on above: Performed By: #### C MP #### [facility] [address] [address] [address] Laila Castle Calcium [Mass/Vol] 9.8 mg/dL Normal 8.5-10.1 [facility] Comment on above: Performed By: #### C MP #### [facility] [address] [address] [address] Laila Castle Chloride [Moles/Vol] 106 mmol/L Normal 98-107 [facility] Comment on above: Performed By: #### C MP #### [facility] [address] [address] [address] Liala Castle CO2 [Moles/Vol] 24.0 mmol/L Normal 21.0-32.0 [facility] Comment on above: Performed By: #### C MP #### [facility] [address] [place] [address] Dr. Laila Castle Creatinine [Mass/Vol] 0.62 mg/dL Normal 0.55-1.02 [facility] Comment on above: Performed By: #### C MP #### [facility] [address] [place] [address] Dr. Laila Castle EGFR-AF LEBANESE >60 Normal >=60 [facility] Comment on above: Performed By: #### C MP #### [facility] [address] [place] [address] Dr. Laila Castle EGFR-NON AF LEBANESE >60 Normal >=60 [facility] Comment on above: Performed By: #### C MP #### [facility] [address] [address] [address] Laila Castle Globulin (S) [Mass/Vol] 3.6 g/dL Normal [facility] Comment on above: Performed By: #### C MP #### [facility] [address] [place] [address] Dr. Laila Castle Glucose [Mass/Vol] 126 mg/dL Critically high 74-106 [facility] Comment on above: Performed By: #### C MP #### [facility] [address] [place] [address] Dr. Laila Castle Potassium [Moles/Vol] 3.8 mmol/L Normal 3.5-5.1 [facility] Comment on above: Performed By: #### C MP #### [facility] [address] [place] [address] Dr. Laila Castle Protein [Mass/Vol] 6.3 g/dL Critically low 6.4-8.2 [facility] Comment on above: Performed By: #### C MP #### [facility] [address] [place] [address] Dr. Laila Castle Sodium [Moles/Vol] 139 mmol/L Normal 136-145 [facility] Comment on above: Performed By: #### C MP #### [facility] [address] [place] [address] Dr. Laila Castle Urea nitrogen [Mass/Vol] 18.0 mg/dL Normal 7.0-18.0 [facility] Comment on above: Performed By: #### C MP #### [facility] [address] [place] [address] Dr. Laila Castle Urea nitrogen/Creatinine [Mass ratio] 29.0 mg/mg Normal [facility] Comment on above: Performed By: #### C MP #### [facility] [address] [place] [address] Dr. Laila Castle CBC AUTO DIFFon 11-10-2021 BASO # 0.0 103/ul Normal 0.0-0.1 [facility] Comment on above: Performed By: #### P OCGLUC #### [facility] [address] [place] [address] Dr. Laila Castle Basophils/100 WBC (Bld) 0.7 % Normal 0.2-2.0 [facility] Comment on above: Performed By: #### P OCGLUC #### [facility] [address] [place] [address] Dr. Laila Castle EO # 0.0 103/ul Normal 0.0-0.7 [facility] Comment on above: Performed By: #### P OCGLUC #### [facility] [address] [place] [address] Dr. Laila Castle Eosinophils/100 WBC (Bld) 0.0 % Critically low 0.9-7.0 [facility] Comment on above: Performed By: #### P OCGLUC #### [facility] [address] [place] [address] Dr. Laila Castle Erythrocyte distribution width (RBC) [Ratio] 14.6 % Normal 11.0-15.0 [facility] Comment on above: Performed By: #### P OCGLUC #### [facility] [address] [address] [address] Laila Castle Hematocrit (Bld) [Volume fraction] 38.6 % Normal 36.0-48.0 [facility] Comment on above: Performed By: #### P OCGLUC #### [facility] [address] [place] [address] Dr. Laila Castle Hemoglobin (Bld) [Mass/Vol] 12.1 g/dL Normal 12.0-16.0 [facility] Comment on above: Performed By: #### P OCGLUC #### [facility] [address] [place] [address] Dr. Laila Castle IG # 0.23 10e3/ul Critically high 0.00-0.03 [facility] Comment on above: Performed By: #### P OCGLUC #### [facility] [address] [place] [address] Dr. Laila Castle IG % 4.0 % Critically high 0.0-0.5 [facility] Comment on above: Performed By: #### P OCGLUC #### [facility] [address] [place] [address] Dr. Laila Castle LYMPH # 0.7 103/ul Critically low 1.2-3.8 [facility] Comment on above: Performed By: #### P OCGLUC #### [facility] [address] [place] [address] Dr. Laila Castle Lymphocytes/100 WBC (Bld) 11.3 % Critically low 20.5-60.0 [facility] Comment on above: Result Comment: MANU AL DIFF NOT REQUIRED. CONSISTENT WITH MANUAL DIFF PERFORMED ON 11/10/21 Performed By: #### P OCGLUC #### [facility] [address] [place] [address] Dr. Laila Castle MANUAL DIFF REQ NO Normal [facility] Comment on above: Performed By: #### P OCGLUC #### [facility] [address] [place] [address] Dr. Laila Castle MCH (RBC) [Entitic mass] 28.6 pg Normal 26.7-34.0 [facility] Comment on above: Performed By: #### P OCGLUC #### [facility] [address] [place] [address] Dr. Laila Castle MCHC (RBC) [Mass/Vol] 31.3 g/dL Normal 29.9-35.2 [facility] Comment on above: Performed By: #### P OCGLUC #### [facility] [address] [place] [address] Dr. Laila Castle MCV (RBC) [Entitic vol] 91.3 fL Normal 81.0-99.0 [facility] Comment on above: Performed By: #### P OCGLUC #### [facility] [address] [place] [address] Dr. Laila Castle MONO # 0.1 103/ul Critically low 0.3-0.8 [facility] Comment on above: Performed By: #### P OCGLUC #### [facility] [address] [place] [address] Dr. Laila Castle Monocytes/100 WBC (Bld) 2.1 % Normal 1.7-12.0 [facility] Comment on above: Performed By: #### P OCGLUC #### [facility] [address] [place] [address] Dr. Laila Castle NEUT # 4.7 103/ul Normal 1.4-6.5 [facility] Comment on above: Performed By: #### P OCGLUC #### [facility] [address] [place] [address] Dr. Laila Castle Neutrophils/100 WBC (Bld) 81.9 % Critically high 43.0-75.0 [facility] Comment on above: Performed By: #### P OCGLUC #### [facility] [address] [address] [address] Laila Castle Platelet mean volume (Bld) [Entitic vol] 8.9 fL Critically low 9.5-13.5 [facility] Comment on above: Performed By: #### P OCGLUC #### [facility] [address] [address] [address] Laila Castle PLT 213 103/ul Normal 150-450 [facility] Comment on above: Performed By: #### P OCGLUC #### [facility] [address] [address] [address] Laila Castle RBC 4.23 106/ul Normal 4.20-5.40 [facility] Comment on above: Performed By: #### P OCGLUC #### [facility] [address] [address] [address] Liala Castle WBC 5.8 103/ul Normal 4.0-11.0 [facility] Comment on above: Performed By: #### P OCGLUC #### [facility] [address] [address] [address] Laila Castle POINT OF CARE GLUCOSEon 10-22 Glucose [Mass/Vol] 147 mg/dL Critically high -106 [facility] Comment on above: Performed By: #### P OCGLUC #### [facility] [address] [address] [address] Laila Castle Glucose [Mass/Vol] 125 mg/dL Critically high -106 [facility] Comment on above: Performed By: #### C VDTBH #### [facility] [address] [address] [address] Laila Castle Glucose [Mass/Vol] 148 mg/dL Critically high -106 [facility] Comment on above: Performed By: #### P OCGLUC #### [facility] [address] [address] [address] Laila Castle PROF 14(COMP METB)on 022 Albumin [Mass/Vol] 2.6 g/dL Critically low 3.4-5.0 [facility] Comment on above: Performed By: #### C MP #### [facility] [address] [address] [address] Laila Castle Albumin/Globulin [Mass ratio] 0.7 {ratio} Normal [facility] Comment on above: Performed By: #### C MP #### [facility] [address] [address] [address] Laila Castle ALP [Catalytic activity/Vol] 93 U/L Normal 46-116 [facility] Comment on above: Performed By: #### C MP #### [facility] [address] [address] [address] Laila Castle ALT [Catalytic activity/Vol] 20 U/L Normal 14-59 [facility] Comment on above: Performed By: #### C MP #### [facility] [address] [place] [address] Dr. Laila Castle Anion gap [Moles/Vol] 14.0 mmol/L Normal [facility] Comment on above: Performed By: #### C MP #### [facility] [address] [place] [address] Dr. Laila Castle AST [Catalytic activity/Vol] 15 U/L Normal 15-37 [facility] Comment on above: Performed By: #### C MP #### [facility] [address] [address] [address] Laila Castle Bilirubin [Mass/Vol] 0.2 mg/dL Normal 0.2-1.0 [facility] Comment on above: Performed By: #### C MP #### [facility] [address] [place] [address] Dr. Laila Castle Calcium [Mass/Vol] 9.1 mg/dL Normal 8.5-10.1 [facility] Comment on above: Performed By: #### C MP #### [facility] [address] [address] [address] Laila Castle Chloride [Moles/Vol] 106 mmol/L Normal 98-107 [facility] Comment on above: Performed By: #### C MP #### [facility] [address] [address] [address] Laila Castle CO2 [Moles/Vol] 23.8 mmol/L Normal 21.0-32.0 [facility] Comment on above: Performed By: #### C MP #### [facility] [address] [address] [address] Laila Castle Creatinine [Mass/Vol] 0.57 mg/dL Normal 0.55-1.02 [facility] Comment on above: Performed By: #### C MP #### [facility] [address] [address] [address] Laila Castle EGFR-AF LEBANESE >60 Normal >=60 [facility] Comment on above: Performed By: #### C MP #### [facility] [address] [place] [address] Dr. Laila Castle EGFR-NON AF LEBANESE >60 Normal >=60 [facility] Comment on above: Performed By: #### C MP #### [facility] [address] [place] [address] Dr. Laila aCstle Globulin (S) [Mass/Vol] 3.7 g/dL Normal [facility] Comment on above: Performed By: #### C MP #### [facility] [address] [place] [address] Dr. Laila Castle Glucose [Mass/Vol] 133 mg/dL Critically high 74-106 [facility] Comment on above: Performed By: #### C MP #### [facility] [address] [place] [address] Dr. Laila Castle Potassium [Moles/Vol] 3.8 mmol/L Normal 3.5-5.1 [facility] Comment on above: Performed By: #### C MP #### [facility] [address] [place] [address] Dr. Laila Castle Protein [Mass/Vol] 6.3 g/dL Critically low 6.4-8.2 [facility] Comment on above: Performed By: #### C MP #### [facility] [address] [place] [address] Dr. Laila Castle Sodium [Moles/Vol] 140 mmol/L Normal 136-145 [facility] Comment on above: Performed By: #### C MP #### [facility] [address] [place] [address] Dr. Laila Castle Urea nitrogen [Mass/Vol] 12.0 mg/dL Normal 7.0-18.0 [facility] Comment on above: Performed By: #### C MP #### [facility] [address] [place] [address] Dr. Laila Castle Urea nitrogen/Creatinine [Mass ratio] 21.1 mg/mg Normal [facility] Comment on above: Performed By: #### C MP #### [facility] [address] [place] [address] Dr. Laila Castle CARDIAC HECTOR ADMITon 022 CK [Catalytic activity/Vol] 58 U/L Normal 26-192 [facility] Comment on above: Performed By: #### P OCGLUC #### [facility] [address] [place] [address] Dr. Laila Castle CK.MB [Mass/Vol] 27.42 ng/mL Critically high <=3.60 [facility] Comment on above: Performed By: #### P OCGLUC #### [facility] [address] [place] [address] Dr. Laila Castle HSTROP 7.6 pg/mL Normal 4.0-51.3 [facility] Comment on above: Result Comment: CUT- OFF POINTS HAVE BEEN ESTABLISHED BASED ON THE FOURTH UNIVERSAL DEFINITIONS OF MYOCARDIAL INFARCTION. THE UPPER REFERENCE LIMIT (URL) OF TROPONIN, DEFINED THE 99TH PERCENTILE OF cTnI DISTRIBUTION IN A REFERENCE POPULATION, HAS BEEN CONFIRMED THE DECISION THRESHOLD FOR PR DIAGNOSIS. Performed By: #### P OCGLUC #### [facility] [address] [place] [address] Dr. Laila Castle SPENCER 15 ng/mL Normal 9-82 [facility] Comment on above: Performed By: #### P OCGLUC #### [facility] [address] [place] [address] Dr. Laila Castle CBC W MANUAL DIFFon 08-20-20 22 ATYPICAL LYMPH # Normal [facility] Comment on above: Performed By: #### C VDTBH #### [facility] [address] [place] [address] Dr. Laila Castle ATYPICAL LYMPH % Normal [facility] Comment on above: Performed By: #### C VDTBH #### [facility] [address] [place] [address] Dr. Laila Castle BAND # Normal 0.0-0.3 [facility] Comment on above: Performed By: #### C VDTBH #### [facility] [address] [place] [address] Dr. Laila Castle BAND % Normal 0-5 [facility] Comment on above: Performed By: #### C VDTBH #### [facility] [address] [place] [address] Dr. Laila Castle BASOM # 0.09 103/ul Normal 0.00-0.10 [facility] Comment on above: Performed By: #### C VDTBH #### [facility] [address] [place] [address] Dr. Laila Castle BASOM % 1.0 % Normal 0.2-2.0 [facility] Comment on above: Performed By: #### C VDTBH #### [facility] [address] [place] [address] Dr. Laila Castle BLAST # Normal [facility] Comment on above: Performed By: #### C VDTBH #### [facility] [address] [place] [address] Dr. Laila Castle BLAST % Normal [facility] Comment on above: Performed By: #### C VDTBH #### [facility] [address] [place] [address] Dr. Laila Castle CORRECTED WBC Normal 4.0-11.0 [facility] Comment on above: Performed By: #### C VDTBH #### [facility] [address] [place] [address] Dr. Laila Castle EOS # 0.00 103/ul Normal 0.00-0.70 [facility] Comment on above: Performed By: #### C VDTBH #### [facility] [address] [address] [address] Laila Castle EOS% 0.0 % Critically low 0.9-7.0 [facility] Comment on above: Performed By: #### C VDTBH #### [facility] [address] [address] [address] Laila Castle HCT 40.4 % Normal 36.0-48.0 [facility] Comment on above: Performed By: #### C VDTBH #### [facility] [address] [address] [address] Laila Castle HGB 12.9 g/dl Normal 12.0-16.0 [facility] Comment on above: Performed By: #### C VDTBH #### [facility] [address] [address] [address] Laila Castle LYMPHM # 0.73 103/ul Critically low 1.20-3.80 [facility] Comment on above: Performed By: #### C VDTBH #### [facility] [address] [address] [address] Laila Castle LYMPHM% 8.0 % Critically low 20.5-60.0 [facility] Comment on above: Performed By: #### C VDTBH #### [facility] [address] [address] [address] Laila Castle MCH 28.5 pg Normal 26.7-34.0 [facility] Comment on above: Performed By: #### C VDTBH #### [facility] [address] [address] [address] Laila Castle MCHC 31.9 g/dl Normal 29.9-35.2 [facility] Comment on above: Performed By: #### C VDTBH #### [facility] [address] [address] [address] Laila Castle MCV 89.4 fL Normal 81.0-99.0 [facility] Comment on above: Performed By: #### C VDTBH #### [facility] [address] [place] [address] Dr. Laila Castle METAMYELOCYTE # Normal [facility] Comment on above: Performed By: #### C VDTBH #### [facility] [address] [place] [address] Dr. Laila Castle METAMYELOCYTE % Normal [facility] Comment on above: Performed By: #### C VDTBH #### [facility] [address] [place] [address] Dr. Laila Castle MONOM# 0.18 103/ul Critically low 0.30-0.80 [facility] Comment on above: Performed By: #### C VDTBH #### [facility] [address] [place] [address] Dr. Laila Castle MONOM% 2.0 % Normal 1.7-12.0 [facility] Comment on above: Performed By: #### C VDTBH #### [facility] [address] [place] [address] Dr. Laila Castle MPV 9.7 fL Normal 9.5-13.5 [facility] Comment on above: Performed By: #### C VDTBH #### [facility] [address] [place] [address] Dr. Laila Castle MYELOCYTE # Normal [facility] Comment on above: Performed By: #### C VDTBH #### [facility] [address] [place] [address] Dr. Laila Castle MYELOCYTE % Normal [facility] Comment on above: Performed By: #### C VDTBH #### [facility] [address] [place] [address] Dr. Laila Castle NRBC Normal [facility] Comment on above: Performed By: #### C VDTBH #### [facility] [address] [place] [address] Dr. Laila Castle PLT 288 103/ul Normal 150-450 [facility] Comment on above: Performed By: #### C VDTBH #### [facility] [address] [place] [address] Dr. Laila Castle RBC 4.52 106/ul Normal 4.20-5.40 [facility] Comment on above: Performed By: #### C VDTBH #### [facility] [address] [address] [address] Laila Castle RDW 14.9 % Normal 11.0-15.0 [facility] Comment on above: Performed By: #### C VDTBH #### [facility] [address] [address] [address] Laila Castle SEG # 8.10 103/ul Critically high 1.40-6.50 [facility] Comment on above: Performed By: #### C VDTBH #### [facility] [address] [place] [address] Dr. Laila Castle SEG % 89.0 % Critically high 43.0-75.0 [facility] Comment on above: Performed By: #### C VDTBH #### [facility] [address] [address] [address] Laila Castle WBC 9.1 103/ul Normal 4.0-11.0 [facility] Comment on above: Performed By: #### C VDTBH #### [facility] [address] [place] [address] Dr. Laila Castle CTA CHEST WO W [...] COLLETTE MARLOW Date: 2021-11-09 17:09 Normal [facility] D-DIMERon 11-09-2021 D-DIMER 5.66 mg/L FEU Critically high <=0.[address] [facility] Comment on above: Performed By: #### D DIM #### [facility] [address] [address] [address] Laila Castle D-DIMER COMMENTS SEE BELOW Normal [facility] Comment on above: Result Comment: Incr eases [...] hospitalization. Performed By: #### D DIM #### [facility] [address] [address] [address] Laila Castle POINT OF CARE GLUCOSEon 10-22 Glucose [Mass/Vol] 160 mg/dL Critically high 74-106 [facility] Comment on above: Performed By: #### P OCGLUC #### [facility] [address] [address] [address] Laila Castle PROF 14(COMP METB)on 022 Albumin [Mass/Vol] 2.8 g/dL Critically low 3.4-5.0 [facility] Comment on above: Performed By: #### P OCGLUC #### [facility] [address] [address] [address] Laila Castle Albumin/Globulin [Mass ratio] 0.7 {ratio} Normal [facility] Comment on above: Performed By: #### P OCGLUC #### [facility] [address] [place] [address] Dr. Laila Castle ALP [Catalytic activity/Vol] 101 U/L Normal 46-116 [facility] Comment on above: Performed By: #### P OCGLUC #### [facility] [address] [address] [address] Laila Castle ALT [Catalytic activity/Vol] 26 U/L Normal 14-59 [facility] Comment on above: Performed By: #### P OCGLUC #### [facility] [address] [address] [address] Laila Castle Anion gap [Moles/Vol] 16.7 mmol/L Normal [facility] Comment on above: Performed By: #### P OCGLUC #### [facility] [address] [place] [address] Dr. Laila Castle AST [Catalytic activity/Vol] 43 U/L Critically high 15-37 [facility] Comment on above: Performed By: #### P OCGLUC #### [facility] [address] [address] [address] Laila Castle Bilirubin [Mass/Vol] 0.6 mg/dL Normal 0.2-1.0 [facility] Comment on above: Performed By: #### P OCGLUC #### [facility] [address] [place] [address] Dr. Laila Castle Calcium [Mass/Vol] 9.9 mg/dL Normal 8.5-10.1 [facility] Comment on above: Performed By: #### P OCGLUC #### [facility] [address] [address] [address] Laila Castle Chloride [Moles/Vol] 100 mmol/L Normal 98-107 [facility] Comment on above: Performed By: #### P OCGLUC #### [facility] [address] [address] [address] Laila Castle CO2 [Moles/Vol] 24.0 mmol/L Normal 21.0-32.0 [facility] Comment on above: Performed By: #### P OCGLUC #### [facility] [address] [address] [address] Laila Castle Creatinine [Mass/Vol] 0.71 mg/dL Normal 0.55-1.02 [facility] Comment on above: Performed By: #### P OCGLUC #### [facility] [address] [place] [address] Dr. Laila Castle EGFR-AF LEBANESE >60 Normal >=60 [facility] Comment on above: Performed By: #### P OCGLUC #### [facility] [address] [address] [address] Laila Castle EGFR-NON AF LEBANESE >60 Normal >=60 [facility] Comment on above: Performed By: #### P OCGLUC #### [facility] [address] [address] [address] Laila Castle Globulin (S) [Mass/Vol] 4.2 g/dL Normal [facility] Comment on above: Performed By: #### P OCGLUC #### [facility] [address] [address] [address] Laila Castle Glucose [Mass/Vol] 119 mg/dL Critically high 74-106 [facility] Comment on above: Performed By: #### P OCGLUC #### [facility] [address] [address] [address] Laila Castle Potassium [Moles/Vol] 4.7 mmol/L Normal 3.5-5.1 [facility] Comment on above: Performed By: #### P OCGLUC #### [facility] [address] [address] [address] Laila Castle Protein [Mass/Vol] 7.0 g/dL Normal 6.4-8.2 [facility] Comment on above: Performed By: #### P OCGLUC #### [facility] [address] [address] [address] Laila Castle Sodium [Moles/Vol] 136 mmol/L Normal 136-[address] [facility] Comment on above: Performed By: #### P OCGLUC #### [facility] [address] [address] [address] Laila Castle Urea nitrogen [Mass/Vol] 14.0 mg/dL Normal 7.0-18.0 [facility] Comment on above: Performed By: #### P OCGLUC #### [facility] [address] [address] [address] Laila Castle Urea nitrogen/Creatinine [Mass ratio] 19.7 mg/mg Normal [facility] Comment on above: Performed By: #### P OCGLUC #### [facility] [address] [address] [address] Laila Castle XR CHEST 1 Von [...] BRIANNA LUZ Date: 2021-11-09 15:57 Normal [facility] Covid-19 PCR (CVDTBH)on 10-21 SARS-CoV-2 (COVID-19) RNA GLYNN+probe Ql (Unsp spec) Detected Critically abnormal NOT DETECTED [facility] Comment on above: Result Comment: This test is not yet approved or cleared by the [place] FDA. When there are no FDA-approved or cleared tests available, and other criteria are met, FDA can make tests available under an emergency access mechanism called an Emergency Use Authorization (EUA). The EUA for this test is supported by the [place] of Health and Human Service's (HHS's) declaration [...] used). Performed By: #### C VDTB #### [facility] [address] [address] [address] Laila Castle Telephone Encounteron 2021 [employer] Pumph[employer] Operator Chief Authentication Interface Message Text Existing RX should have refills. Normal [facility] Telephone Encounteron 2021 [employer] And [employer]um[employer] Operator Chief Authentication Interface Message Text Sent pt mychart msg Normal [facility] tu.nr Authentication Interface Message Text Needs f/u visit Normal [facility] Cult,Funguson 09-16-2021 Cult,Fungus Specimen Description .SHOULDER RIGHT JOINT FLUID Culture NO GROWTH 31 DAYS Report Status FINAL 09/16/2021 Normal [facility] Comment on above: Performed By: #### L ACTIC #### [facility] [address] [place] [address] Accounts Supervisor: Chriss Townsend MD CBC with Auto Differentialon 09-09-2021 Absolute Eos # 0.04 [facility] Absolute Immature Granulocyte 0.23 [facility] Absolute Lymph # 2.35 [facility] Absolute Beltrami # 0.73 [facility] Basophils (Bld) [#/Vol] 0.05 10*3/uL [facility] Basophils/100 WBC (Bld) 1 % 0 - 2 % [facility] Eosinophils/100 WBC (Bld) 0 % Low 1 - 4 % [facility] Hematocrit (Bld) [Volume fraction] 38.1 % 36.3 - 47.1 % [facility] Hemoglobin (Bld) [Mass/Vol] 11.8 g/dL Low 11.9 - 15.1 g/dL [facility] Immature granulocytes/100 WBC (Bld) 2 % High 0 [facility] Interpretation and review of laboratory results Abnormal [facility] Lymphocytes/100 WBC (Bld) 24 % 24 - 43 % [facility] MCH (RBC) [Entitic mass] 29.7 pg 25.2 - 33.5 pg [facility] MCHC (RBC) [Mass/Vol] 31.0 g/dL 28.4 - 34.8 g/dL [facility] MCV (RBC) [Entitic vol] 96.0 fL 82.6 - 102.9 fL [facility] Monocytes/100 WBC (Bld) 7 % 3 - 12 % [facility] NRBC Automated 0.0 0.0 per 100 WBC [facility] Platelet distribution width (Bld) [Ratio] 16.2 % High 11.8 - 14.4 % [facility] Platelet mean volume (Bld) [Entitic vol] 9.9 fL 8.1 - 13.5 fL [facility] Platelets (Bld) [#/Vol] 234 10*3/uL [facility] RBC (Bld) [#/Vol] 3.97 10*6/uL 3.95 - 5.1 1 m/uL [facility] Segmented neutrophils/100 WBC (Bld) 66 % High 36 - 65 % [facility] Segs Absolute 6.58 [facility] WBC (Bld) [#/Vol] 10.0 10*3/uL [facility] Comprehensive Metabolic Pane markell 09-09-2021 Albumin [Mass/Vol] 4.1 g/dL 3.5 - 5.2 g/dL [facility] Albumin/Globulin [Mass ratio] 1.5 {ratio} [facility] ALP (Bld) [Catalytic activity/Vol] 146 U/L High 35 - 104 U/L [facility] ALT [Catalytic activity/Vol] 6 U/L 5 - 33 U/L [facility] Anion gap [Moles/Vol] 11 mmol/L 9 - 17 mmol/L [facility] AST [Catalytic activity/Vol] 25 U/L <32 [facility] Bilirubin [Mass/Vol] 0.31 mg/dL 0.3 - 1 .2 mg/dL [facility] Calcium [Mass/Vol] 10.4 mg/dL 8.6 - 10. 4 mg/dL [facility] Chloride [Moles/Vol] 101 mmol/L 98 - 10 7 mmol/L [facility] CO2 [Moles/Vol] 26 mmol/L 20 - 31 mmol/L [facility] Creatinine [Mass/Vol] 0.38 mg/dL Low 0.50 - 0.90 mg/dL [facility] Free PSA/Total PSA [Mass fraction] 6.8 g/dL 6.4 - 8.3 g/dL [facility] GFR >60 >60 mL/min [facility] GFR Non- >60 >60 mL/min [facility] Glucose [Mass/Vol] 74 mg/dL 70 - 99 mg/dL [facility] Interpretation and review of laboratory results Abnormal [facility] Potassium [Moles/Vol] 3.9 mmol/L 3.7 - 5.3 mmol/L [facility] Sodium [Moles/Vol] 138 mmol/L 135 - 144 mmol/L [facility] Urea nitrogen (BldV) [Mass/Vol] 10 mg/dL 8 - 23 mg/dL [facility] Urea nitrogen/Creatinine (Bld) [Mass ratio] 26 High [facility] - Chemistry and C hemistry - challengeon 09-09-2021 GFR/1.73 sq M.predicted MDRD (S/P/Bld) [Vol rate/Area] [facility] Comment on above: Average GFR for 60-6 9 years old: 85 mL/min/1.73sq m Chronic Kidney Disease: <60 mL/min/1.73sq m Kidney failure: <15 mL/min/1.73sq m eGFR calculated using average adult body mass. Additional eGFR calculator available at: http://www.[employer]multiple_crcl_2012.htm Stage 1: Some kidney damage normal GFR Stage 2: Mild kidney damage GFR 60-89 Stage 3: Moderate kidney damage GFR 30-59 Stage 4: Severe kidney damage GFR 15-29 Stage 5: Severe kidney damage GFR <15 ESRD - chronic treatment by dialysis or transplant CBC with Auto Differentialon 09-02-2021 Absolute Eos # <0.03 [facility] Absolute Immature Granulocyte 0.49 High [facility] Absolute Lymph # 1.22 [facility] Absolute Beltrami # 0.78 [facility] Basophils (Bld) [#/Vol] 0.04 10*3/uL [facility] Basophils/100 WBC (Bld) 0 % 0 - 2 % [facility] Eosinophils/100 WBC (Bld) 0 % Low 1 - 4 % [facility] Hematocrit (Bld) [Volume fraction] 37.2 % 36.3 - 47.1 % [facility] Hemoglobin (Bld) [Mass/Vol] 11.1 g/dL Low 11.9 - 15.1 g/dL [facility] Immature granulocytes/100 WBC (Bld) 5 % High 0 [facility] Interpretation and review of laboratory results Abnormal [facility] Lymphocytes/100 WBC (Bld) 12 % Low 24 - 43 % [facility] MCH (RBC) [Entitic mass] 29.1 pg 25.2 - 33.5 pg [facility] MCHC (RBC) [Mass/Vol] 29.8 g/dL 28.4 - 34.8 g/dL [facility] MCV (RBC) [Entitic vol] 97.4 fL 82.6 - 102.9 fL [facility] Monocytes/100 WBC (Bld) 7 % 3 - 12 % [facility] NRBC Automated 0.0 0.0 per 100 WBC [facility] Platelet distribution width (Bld) [Ratio] 16.1 % High 11.8 - 14.4 % [facility] Platelet mean volume (Bld) [Entitic vol] 9.3 fL 8.1 - 13.5 fL [facility] Platelets (Bld) [#/Vol] 290 10*3/uL [facility] RBC (Bld) [#/Vol] 3.82 10*6/uL Low 3.95 - 5.1 1 m/uL [facility] Segmented neutrophils/100 WBC (Bld) 76 % High 36 - 65 % [facility] Segs Absolute 8.00 [facility] WBC (Bld) [#/Vol] 10.5 10*3/uL [facility] Comprehensive Metabolic Pane markell 09-02-2021 Albumin [Mass/Vol] 3.6 g/dL 3.5 - 5.2 g/dL [facility] Albumin/Globulin [Mass ratio] 1.2 {ratio} [facility] ALP (Bld) [Catalytic activity/Vol] 172 U/L High 35 - 104 U/L [facility] ALT [Catalytic activity/Vol] 7 U/L 5 - 33 U/L [facility] Anion gap [Moles/Vol] 9 mmol/L 9 - 17 mmol/L [facility] AST [Catalytic activity/Vol] 26 U/L <32 [facility] Bilirubin [Mass/Vol] 0.19 mg/dL Low 0.3 - 1 .2 mg/dL [facility] Calcium [Mass/Vol] 10.3 mg/dL 8.6 - 10. 4 mg/dL [facility] Chloride [Moles/Vol] 103 mmol/L 98 - 10 7 mmol/L [facility] CO2 [Moles/Vol] 25 mmol/L 20 - 31 mmol/L [facility] Creatinine [Mass/Vol] 0.41 mg/dL Low 0.50 - 0.90 mg/dL [facility] Free PSA/Total PSA [Mass fraction] 6.7 g/dL 6.4 - 8.3 g/dL [facility] GFR >60 >60 mL/min [facility] GFR Non- >60 >60 mL/min [facility] Glucose [Mass/Vol] 90 mg/dL 70 - 99 mg/dL [facility] Interpretation and review of laboratory results Abnormal [facility] Potassium [Moles/Vol] 3.8 mmol/L 3.7 - 5.3 mmol/L [facility] Sodium [Moles/Vol] 137 mmol/L 135 - 144 mmol/L [facility] Urea nitrogen (BldV) [Mass/Vol] 14 mg/dL 8 - 23 mg/dL [facility] Urea nitrogen/Creatinine (Bld) [Mass ratio] 34 High [facility] Laboratory - Chemistry and C hemistry - challengeon 09-02-2021 GFR/1.73 sq M.predicted MDRD (S/P/Bld) [Vol rate/Area] [facility] Comment on above: Average GFR for 60-6 9 years old: 85 mL/min/1.73sq m Chronic Kidney Disease: <60 mL/min/1.73sq m Kidney failure: <15 mL/min/1.73sq m eGFR calculated using average adult body mass. Additional eGFR calculator available at: http://www.[employer]multiple_crcl_2012.htm Stage 1: Some kidney damage normal GFR Stage 2: Mild kidney damage GFR 60-89 Stage 3: Moderate kidney damage GFR 30-59 Stage 4: Severe kidney damage GFR 15-29 Stage 5: Severe kidney damage GFR <15 ESRD - chronic treatment by dialysis or transplant CBC with Auto Differentialon 08-26-2021 Absolute Eos # <0.03 [facility] Absolute Immature Granulocyte 0.30 [facility] Absolute Lymph # 1.07 Low [facility] Absolute Beltrami # 0.34 [facility] Basophils (Bld) [#/Vol] 10*3/uL [facility] Basophils/100 WBC (Bld) 0 % 0 - 2 % [facility] Eosinophils/100 WBC (Bld) 0 % Low 1 - 4 % [facility] Hematocrit (Bld) [Volume fraction] 33.9 % Low 36.3 - 47.1 % [facility] Hemoglobin (Bld) [Mass/Vol] 10.7 g/dL Low 11.9 - 15.1 g/dL [facility] Immature granulocytes/100 WBC (Bld) 3 % High 0 [facility] Interpretation and review of laboratory results Abnormal [facility] Lymphocytes/100 WBC (Bld) 11 % Low 24 - 43 % [facility] MCH (RBC) [Entitic mass] 29.6 pg 25.2 - 33.5 pg [facility] MCHC (RBC) [Mass/Vol] 31.6 g/dL 28.4 - 34.8 g/dL [facility] MCV (RBC) [Entitic vol] 93.9 fL 82.6 - 102.9 fL [facility] Monocytes/100 WBC (Bld) 3 % 3 - 12 % [facility] NRBC Automated 0.2 High 0.0 per 100 WBC [facility] Platelet distribution width (Bld) [Ratio] 15.1 % High 11.8 - 14.4 % [facility] Platelet mean volume (Bld) [Entitic vol] 9.3 fL 8.1 - 13.5 fL [facility] Platelets (Bld) [#/Vol] 423 10*3/uL [facility] RBC (Bld) [#/Vol] 3.61 10*6/uL Low 3.95 - 5.1 1 m/uL [facility] Segmented neutrophils/100 WBC (Bld) 83 % High 36 - 65 % [facility] Segs Absolute 8.14 High [facility] WBC (Bld) [#/Vol] 9.9 10*3/uL [facility] Comprehensive Metabolic Pane markell 08-26-2021 Albumin [Mass/Vol] 3.1 g/dL Low 3.5 - 5.2 g/dL [facility] Albumin/Globulin [Mass ratio] 1.0 {ratio} [facility] ALP (Bld) [Catalytic activity/Vol] 166 U/L High 35 - 104 U/L [facility] ALT [Catalytic activity/Vol] U/L Low 5 - 33 U/L [facility] Anion gap [Moles/Vol] 7 mmol/L Low 9 - 17 mmol/L [facility] AST [Catalytic activity/Vol] 21 U/L <32 [facility] Bilirubin [Mass/Vol] 0.24 mg/dL Low 0.3 - 1 .2 mg/dL [facility] Calcium [Mass/Vol] 9.8 mg/dL 8.6 - 10. 4 mg/dL [facility] Chloride [Moles/Vol] 100 mmol/L 98 - 10 7 mmol/L [facility] CO2 [Moles/Vol] 30 mmol/L 20 - 31 mmol/L [facility] Creatinine [Mass/Vol] 0.34 mg/dL Low 0.50 - 0.90 mg/dL [facility] Free PSA/Total PSA [Mass fraction] 6.3 g/dL Low 6.4 - 8.3 g/dL [facility] GFR >60 >60 mL/min [facility] GFR Non- >60 >60 mL/min [facility] Glucose [Mass/Vol] 104 mg/dL High 70 - 99 mg/dL [facility] Interpretation and review of laboratory results Abnormal [facility] Potassium [Moles/Vol] 3.9 mmol/L 3.7 - 5.3 mmol/L [facility] Sodium [Moles/Vol] 137 mmol/L 135 - 144 mmol/L [facility] Urea nitrogen (BldV) [Mass/Vol] 7 mg/dL Low 8 - 23 mg/dL [facility] Urea nitrogen/Creatinine (Bld) [Mass ratio] 21 High [facility] Laboratory - Chemistry and C hemistry - challengeon 08-26-2021 GFR/1.73 sq M.predicted MDRD (S/P/Bld) [Vol rate/Area] [facility] Comment on above: Average GFR for 60-6 9 years old: 85 mL/min/1.73sq m Chronic Kidney Disease: <60 mL/min/1.73sq m Kidney failure: <15 mL/min/1.73sq m eGFR calculated using average adult body mass. Additional eGFR calculator available at: http://www.[employer]multiple_crcl_2012.htm Stage 1: Some kidney damage normal GFR Stage 2: Mild kidney damage GFR 60-89 Stage 3: Moderate kidney damage GFR 30-59 Stage 4: Severe kidney damage GFR 15-29 Stage 5: Severe kidney damage GFR <15 ESRD - chronic treatment by dialysis or transplant Basic Metab w/rfx MGon 08-21 Potassium [Moles/Vol] 3.0 mmol/L Low 3.7-5.[address] [facility] Comment on above: Performed By: #### C OVRB #### [facility] [employer] [address] [place] [address] Accounts Supervisor: Chriss Townsend MD (cont.) [facility] Comment on above: Result Comment: Aver age GFR for 60-69 years old: 85 mL/min/1.73sq m Chronic Kidney Disease: <60 mL/min/1.73sq m Kidney failure: <15 mL/min/1.73sq m eGFR calculated using average adult body mass. Additional eGFR calculator available at: http://www.[employer]multiple_crcl_2012.htm Performed By: #### C OVRB #### [address] [address] Accounts Supervisor: Chriss Townsend MD Anion gap [Moles/Vol] 13 mmol/L Normal 9-[address] [facility] Comment on above: Performed By: #### C OVRB #### [facility] [employer] [address] [place] [address] Accounts Supervisor: Chriss Townsend MD Calcium [Mass/Vol] 8.5 mg/dL Low 8.6-10.4 [facility] Comment on above: Performed By: #### C OVRB #### [facility] [address] [place] [address] [id number] Accounts Supervisor: Chriss Townsend MD Chloride [Moles/Vol] 103 mmol/L Normal 98-107 [facility] Comment on above: Performed By: #### C OVRB #### [address] [address] Accounts Supervisor: Chriss Townsend MD CO2 [Moles/Vol] 23 mmol/L Normal 20-31 [facility] Comment on above: Performed By: #### C OVRB #### [address] [address] Accounts Supervisor: Chriss Townsend MD Creatinine [Mass/Vol] 0.28 mg/dL Low 0.50-0.[address] [facility] Comment on above: Performed By: #### C OVRB #### [address] [address] Accounts Supervisor: Chriss Townsend MD GFR, Amer >60 Normal >60 [facility] Comment on above: Performed By: #### C OVRB #### [address] [address] Accounts Supervisor: Chriss Townsend MD GFR,non Amer >60 Normal >60 [facility] Comment on above: Performed By: #### C OVRB #### [address] [address] Accounts Supervisor: Chriss Townsend MD Glucose [Mass/Vol] 79 mg/dL Normal 70-99 [facility] Comment on above: Performed By: #### C OVRB #### [address] [address] Accounts Supervisor: Chriss Townsend MD Sodium [Moles/Vol] 139 mmol/L Normal 135-144 [facility] Comment on above: Performed By: #### C OVRB #### [address] [address] Accounts Supervisor: Chriss Townsend MD Urea nitrogen [Mass/Vol] 5 mg/dL Low 8-23 [facility] Comment on above: Performed By: #### C OVRB #### [facility] [address] [id number] Accounts Supervisor: Chriss Townsend MD Basic Metabolic Panel w/ Ref sujatha to MGon 08-21-2021 Anion gap [Moles/Vol] 13 mmol/L 9 - 17 mmol/L [facility] [employer] Calcium [Mass/Vol] 8.5 mg/dL Low 8.6 - 10. 4 mg/dL [facility] [employer] Chloride [Moles/Vol] 103 mmol/L 98 - 10 7 mmol/L [facility] [employer] CO2 [Moles/Vol] 23 mmol/L 20 - 31 mmol/L [facility] Creatinine [Mass/Vol] 0.28 mg/dL Low 0.50 - 0.90 mg/dL [facility] GFR >60 >60 mL/min [facility] GFR Non- >60 >60 mL/min [facility] GFR/1.73 sq M.predicted MDRD (S/P/Bld) [Vol rate/Area] [facility] Comment on above: Average GFR for 60-6 9 years old: 85 mL/min/1.73sq m Chronic Kidney Disease: <60 mL/min/1.73sq m Kidney failure: <15 mL/min/1.73sq m eGFR calculated using average adult body mass. Additional eGFR calculator available at: http://www.[employer]/multiple_crcl_2011.htm Glucose [Mass/Vol] 79 mg/dL 70 - 99 mg/dL [facility] Interpretation and review of laboratory results Abnormal [facility] Potassium [Moles/Vol] 3.0 mmol/L Low 3.7 - 5.3 mmol/L [facility] Sodium [Moles/Vol] 139 mmol/L 135 - 144 mmol/L [facility] Urea nitrogen (BldV) [Mass/Vol] 5 mg/dL Low 8 - 23 mg/dL [facility] CBC with Auto Differentialon 08-21-2021 Absolute Eos # 0.23 [facility] Immature Granulocyte 0.53 High [facility] Absolute Lymph # 0.83 Low [facility] Absolute Beltrami # 0.15 [facility] Basophils (Bld) [#/Vol] 0.00 10*3/uL [facility] Basophils/100 WBC (Bld) 0 % 0 - 2 % [facility] Eosinophils/100 WBC (Bld) 3 % 1 - 4 % [facility] Hematocrit (Bld) [Volume fraction] 32.9 % Low 36.3 - 47.1 % [facility] Hemoglobin.gastrointe stinal spec 1 Ql (Stl) 10.6 g/dL Low 11.9 - 15.1 g/dL [facility] Immature granulocytes/100 WBC (Bld) 7 % High 0 [facility] Interpretation and review of laboratory results Abnormal [facility] Lymphocytes/100 WBC (Bld) 11 % Low 24 - 44 % [facility] MCH (RBC) [Entitic mass] 29.4 pg 25.2 - 33.5 pg [facility] MCHC (RBC) [Mass/Vol] 32.2 g/dL 28.4 - 34.8 g/dL [facility] MCV (RBC) [Entitic vol] 91.1 fL 82.6 - 102.9 fL [facility] Monocytes/100 WBC (Bld) 2 % 1 - 7 % [facility] Morphology Demetrio (Bld) [Interp] ANISOCYTOSIS PRESENT [facility] Morphology Demetrio (Bld) [Interp] 1+ POLYCHROMASIA [facility] NRBC Automated 0.0 0.0 per 100 WBC [facility] Platelet distribution width (Bld) [Ratio] 14.8 % High 11.8 - 14.4 % [facility] Platelet mean volume (Bld) [Entitic vol] 9.7 fL 8.1 - 13.5 fL [facility] Platelets (Bld) [#/Vol] 203 10*3/uL [facility] RBC (Bld) [#/Vol] 3.61 10*6/uL Low 3.95 - 5.1 1 m/uL [facility] RBC (Bld) [#/Vol] ANISOCYTOSIS PRESENT [facility] Segmented neutrophils/100 WBC (Bld) 77 % High 36 - 66 % [facility] Segs Absolute 5.76 [facility] WBC (Bld) [#/Vol] 7.5 10*3/uL [facility] CBC with Diffon 08-21-2021 Abs. Basophil 0.00 k/uL Normal 0.0-0.2 [facility] Comment on above: Performed By: #### C OVRB #### [address] [address] Accounts Supervisor: Chriss Townsend MD Abs.Imm.Granulocyte 0.53 k/uL High 0.00-0.30 [facility] Comment on above: Performed By: #### C OVRB #### [address] [address] Accounts Supervisor: Chriss Townsend MD Abs.Neutrophil (Seg) 5.76 k/uL Normal 1.8-7.7 [facility] Comment on above: Performed By: #### C OVRB #### [address] [address] Accounts Supervisor: Chriss Townsend MD Basophils/100 WBC (Bld) 0 % Normal 0-2 [facility] Comment on above: Performed By: #### C OVRB #### [address] [address] Accounts Supervisor: Chriss Townsend MD Eosinophils (Bld) [#/Vol] 0.23 10*3/uL Normal 0.0-0.4 [facility] Comment on above: Performed By: #### C OVRB #### [address] [address] Accounts Supervisor: Chriss Townsend MD Eosinophils/100 WBC (Bld) 3 % Normal 1-4 [facility] Comment on above: Performed By: #### C OVRB #### [address] [address] Accounts Supervisor: Chriss Townsend MD Immature granulocytes/100 WBC (Bld) 7 % High 0 [facility] Comment on above: Performed By: #### C OVRB #### [address] [address] Accounts Supervisor: Chriss Townsend MD Lymphocytes (Bld) [#/Vol] 0.83 10*3/uL Low 1.0-4.8 [facility] Comment on above: Performed By: #### C OVRB #### [address] [address] Accounts Supervisor: Chriss Townsend MD Lymphocytes/100 WBC (Bld) 11 % Low 24-44 [facility] Comment on above: Performed By: #### C OVRB #### [address] [address] Accounts Supervisor: Chriss Townsend MD Monocytes (Bld) [#/Vol] 0.15 10*3/uL Normal 0.1-0.8 [facility] Comment on above: Performed By: #### C OVRB #### [address] [address] Accounts Supervisor: Chriss Townsend MD Monocytes/100 WBC (Bld) 2 % Normal 1-7 [facility] Comment on above: Performed By: #### C OVRB #### [address] [address] Accounts Supervisor: Chriss Townsend MD Morphology Demetrio (Bld) [Interp] ANISOCYTOSIS PRESENT Normal [facility] Comment on above: Result Comment: 1+ POLYCHROMASIA Performed By: #### C OVRB #### [address] [address] Accounts Supervisor: Chriss Townsend MD Neutrophil (Seg) 77 % High 36-66 [facility] Comment on above: Performed By: #### C OVRB #### [address] [address] Accounts Supervisor: Chriss Townsend MD Erythrocyte distribution width (RBC) [Ratio] 14.8 % High 11.8-14.4 [facility] Comment on above: Performed By: #### C OVRB #### [address] [address] Accounts Supervisor: Chriss Townsend MD Hematocrit (Bld) [Volume fraction] 32.9 % Low 36.3-47.1 [facility] Comment on above: Performed By: #### C OVRB #### [address] [address] Accounts Supervisor: Chriss Townsend MD Hemoglobin (Bld) [Mass/Vol] 10.6 g/dL Low 11.9-15.1 [facility] Comment on above: Performed By: #### C OVRB #### [address] [address] Accounts Supervisor: Chriss Townsend MD MCH (RBC) [Entitic mass] 29.4 pg Normal 25.2-33.5 [facility] Comment on above: Performed By: #### C OVRB #### [address] [address] Accounts Supervisor: Chriss Townsend MD MCHC (RBC) [Mass/Vol] 32.2 g/dL Normal 28.4-34.[address] [facility] Comment on above: Performed By: #### C OVRB #### [address] [address] Accounts Supervisor: Chriss Townsend MD MCV (RBC) [Entitic vol] 91.1 fL Normal 82.6-102.9 [facility] Comment on above: Performed By: #### C OVRB #### [address] [address] Accounts Supervisor: Chriss Townsend MD NRBC Automated 0.0 per 100 WBC Normal 0.0 [facility] Comment on above: Performed By: #### C OVRB #### [address] [address] Accounts Supervisor: Chriss Townsend MD Platelet mean volume (Bld) [Entitic vol] 9.7 fL Normal 8.1-13.5 [facility] Comment on above: Performed By: #### C OVRB #### [address] [address] Accounts Supervisor: Chriss Townsend MD Platelets (Bld) [#/Vol] 203 10*3/uL Normal 138-453 [facility] Comment on above: Performed By: #### C OVRB #### [address] [address] Accounts Supervisor: Chriss Townsend MD RBC (Bld) [#/Vol] 3.61 10*6/uL Low 3.95-5.11 [facility] Comment on above: Performed By: #### C OVRB #### [address] [address] Accounts Supervisor: Chriss Townsend MD RBC morphology finding Nom (Bld) ANISOCYTOSIS PRESENT Normal [facility] Comment on above: Performed By: #### C OVRB #### [address] [address] Accounts Supervisor: Chriss Townsend MD WBC (Bld) [#/Vol] 7.5 10*3/uL Normal 3.5-11.3 [facility] Comment on above: Performed By: #### C OVRB #### [facility] [address] [place], [place] [phone] Accounts Supervisor: Chriss Townsend MD Cult,Bloodon 08-21-2021 Cult,Blood Specimen Description .BLOOD Special Requests L WRIST 1 ML Culture NO GROWTH 5 DAYS Report Status FINAL 08/21/2021 [facility] Comment on above: Performed By: #### C RP CDP, SED #### [facility] [place], [place] [phone] Accounts Supervisor: Chriss Townsend MD Cult,Blood Specimen Description .BLOOD Culture NO GROWTH 5 DAYS Report Status FINAL 08/21/2021 [facility] Comment on above: Performed By: #### C RP CDP, SED #### [facility] [address] [place] [address] [phone] Accounts Supervisor: Chriss Townsend MD Culture, Blood 1on 2 Bacteria identified Cx Nom (Unsp spec) NO GROWTH 5 DAYS [facility] [employer] Special Requests L WRIST 1 ML [facility] [employer] Specimen Description .BLOOD [facility] Bacteria identified Cx Nom (Unsp spec) NO GROWTH 5 DAYS [facility] [employer] Specimen Description .BLOOD [facility] [employer] Magnesiumon 08-21-2021 Magnesium [Mass/Vol] 1.8 mg/dL Normal 1.6-2.6 [facility] Comment on above: Performed By: #### C OVRB #### [facility] [place], [place] [phone] Accounts Supervisor: Chriss Townsend MD Magnesium [Mass/Vol] 1.8 mg/dL 1.6 - 2 .6 mg/dL [facility] [employer] [facility] [employer] No Panel Informationon 08-21 Venu De La Garza RN 08/21/2021 9:37 AM Picc placement order: Benefits include stable, terminal supervisor intravenous access. Blood draws. Peripheral vein preservation. [...] out Performed using [employer] Lot #: [id number] Expiration date: 07/20/2022 Catheter size: 4.5 kiswahili Total length: 45cm Total length inserted: 45cm [...] with an education handout on catheter insertion. [facility] FAQ Catheter Associated Blood Stream Infections and [facility] [id number] REV. 10/02 Nursing and Booklet left at bedside or in chart. Patient (Family or POA) acknowledged understanding of information taught and agreed to procedure. [employer] Work Phone: Tip Confirmation System (TCS ) and/ or Chest Xray for tip confirmationon 08-21-2021 [employer] Phone: Basic Metab w/rfx MGon 08-20 Potassium [Moles/Vol] 2.8 mmol/L Critically low 3.7-5.3 [facility] Comment on above: Performed By: #### C RP, CDP, SED #### [facility] [address] [place] [address] Accounts Supervisor: Chriss Townsend MD (cont.) Normal [facility] Comment on above: Result Comment: Aver age GFR for 60-69 years old: 85 mL/min/1.73sq m Chronic Kidney Disease: <60 mL/min/1.73sq m Kidney failure: <15 mL/min/1.73sq m eGFR calculated using average adult body mass. Additional eGFR calculator available at: http://www.[employer]./multiple_crcl_2012.htm Performed By: #### C RP, CDP, SED #### [address] [address] Accounts Supervisor: Chriss Townsend MD Anion gap [Moles/Vol] 11 mmol/L Normal 9-[address] [facility] Comment on above: Performed By: #### C RP, CDP, SED #### [address] [address] Accounts Supervisor: Chriss Townsend MD Calcium [Mass/Vol] 8.8 mg/dL Normal 8.6-10.4 [facility] Comment on above: Performed By: #### C RP, CDP, SED #### [facility] [address] [place] [address] Accounts Supervisor: Chriss Townsend MD Chloride [Moles/Vol] 103 mmol/L Normal 98-107 [facility] Comment on above: Performed By: #### C RP, CDP, SED #### [facility] [address] [place] [address] Accounts Supervisor: Chriss Townsend MD CO2 [Moles/Vol] 24 mmol/L Normal 20-31 [facility] Comment on above: Performed By: #### C RP, CDP, SED #### [facility] [address] [place] [address] Accounts Supervisor: Chriss Townsend MD Creatinine [Mass/Vol] 0.34 mg/dL Low 0.50-0.[address] [facility] Comment on above: Performed By: #### C RP, CDP, SED #### [facility] [address] [place] [address] Accounts Supervisor: Chriss Townsend MD GFR, Amer >60 Normal >60 [facility] Comment on above: Performed By: #### C RP, CDP, SED #### [facility] [address] [place] [address] Accounts Supervisor: Chriss Townsend MD GFR,non Amer >60 Normal >60 [facility] Comment on above: Performed By: #### C RP, CDP, SED #### [facility] [address] [place] [address] Accounts Supervisor: Chriss Townsend MD Glucose [Mass/Vol] 87 mg/dL Normal 70-99 [facility] Comment on above: Performed By: #### C RP, CDP, SED #### [facility] [address] [place] [address] Accounts Supervisor: Chriss Townsend MD Sodium [Moles/Vol] 138 mmol/L Normal 135-144 [facility] Comment on above: Performed By: #### C RP, CDP, SED #### [facility] [address] [place] [address] Accounts Supervisor: Chriss Townsend MD Urea nitrogen [Mass/Vol] 7 mg/dL Low 8-23 [facility] Comment on above: Performed By: #### C RP, CDP, SED #### [facility] [address] [place] [address] Accounts Supervisor: Chriss Townsend MD Basic Metabolic Panel w/ Ref sujatha to MG 08-20-2021 Anion gap [Moles/Vol] 11 mmol/L 9 - 17 mmol/L [facility] Calcium [Mass/Vol] 8.8 mg/dL 8.6 - 10. 4 mg/dL [facility] Chloride [Moles/Vol] 103 mmol/L 98 - 10 7 mmol/L [facility] CO2 [Moles/Vol] 24 mmol/L 20 - 31 mmol/L [facility] Creatinine [Mass/Vol] 0.34 mg/dL Low 0.50 - 0.90 mg/dL [facility] GFR >60 >60 mL/min [facility] GFR Non- >60 >60 mL/min [facility] GFR/1.73 sq M.predicted MDRD (S/P/Bld) [Vol rate/Area] [facility] Comment on above: Average GFR for 60-6 9 years old: 85 mL/min/1.73sq m Chronic Kidney Disease: <60 mL/min/1.73sq m Kidney failure: <15 mL/min/1.73sq m eGFR calculated using average adult body mass. Additional eGFR calculator available at: http://www.[employer]./multiple_crcl_2011.htm Glucose [Mass/Vol] 87 mg/dL 70 - 99 mg/dL [facility] Interpretation and review of laboratory results Abnormal [facility] Potassium [Moles/Vol] 2.8 mmol/L Critically low 3.7 - 5.3 mmol/L [facility] Sodium [Moles/Vol] 138 mmol/L 135 - 144 mmol/L [facility] Urea nitrogen (BldV) [Mass/Vol] 7 mg/dL Low 8 - 23 mg/dL [facility] C-Reactive Proteinon 08-20- 022 CRP [Mass/Vol] 151.9 mg/L High 0.0-5.0 [facility] Comment on above: Performed By: #### C RP, CDP, SED #### [facility] [address] [place] [address] Accounts Supervisor: Chriss Townsend MD CRP [Mass/Vol] 151.9 mg/L High 0.0 - 5.0 mg/L [facility] Interpretation and review of laboratory results Abnormal [facility] CBC with Auto Differentialon 08-20-2021 Absolute Eos # 0.00 [facility] Absolute Immature Granulocyte 0.00 [facility] Absolute Lymph # 0.64 Low [facility] SEC[facility] U[facility] Absolute Beltrami # 0.37 [facility] RS [facility] Basophils (Bld) [#/Vol] 0.00 10*3/uL [facility] Basophils/100 WBC (Bld) 0 % 0 - 2 % [facility] Eosinophils/100 WBC (Bld) 0 % Low 1 - 4 % [facility] Hematocrit (Bld) [Volume fraction] 33.6 % Low 36.3 - 47.1 % [facility] Hemoglobin.gastrointe stinal spec 1 Ql (Stl) 10.8 g/dL Low 11.9 - 15.1 g/dL [facility] Immature granulocytes/100 WBC (Bld) 0 % 0 [facility] Interpretation and review of laboratory results Abnormal [facility] Lymphocytes/100 WBC (Bld) 7 % Low 24 - 44 % [facility] MCH (RBC) [Entitic mass] 29.9 pg 25.2 - 33.5 pg [facility] MCHC (RBC) [Mass/Vol] 32.1 g/dL 28.4 - 34.8 g/dL [facility] MCV (RBC) [Entitic vol] 93.1 fL 82.6 - 102.9 fL [facility] Monocytes/100 WBC (Bld) 4 % 1 - 7 % [facility] Morphology Demetrio (Bld) [Interp] ANISOCYTOSIS PRESENT [facility] NRBC Automated 0.0 0.0 per 100 WBC [facility] Platelet distribution width (Bld) [Ratio] 14.6 % High 11.8 - 14.4 % [facility] Platelet mean volume (Bld) [Entitic vol] 9.6 fL 8.1 - 13.5 fL [facility] Platelets (Bld) [#/Vol] 169 10*3/uL [facility] RBC (Bld) [#/Vol] 3.61 10*6/uL Low 3.95 - 5.1 1 m/uL [facility] Segmented neutrophils/100 WBC (Bld) 89 % High 36 - 66 % [facility] Segs Absolute 8.19 High [facility] WBC (Bld) [#/Vol] 9.2 10*3/uL [facility] CBC with Diffon 08-20-2021 Abs. Basophil 0.00 k/uL Normal 0.0-0.2 [facility] Comment on above: Performed By: #### C RP, CDP, SED #### [facility] [address] [place] [address] Accounts Supervisor: Chriss Townsend MD Abs.Imm.Granulocyte 0.00 k/uL Normal 0.00-0.30 [facility] Comment on above: Performed By: #### C RP, CDP, SED #### [facility] [address] [place] [address] Accounts Supervisor: Chriss Townsend MD Abs.Neutrophil (Seg) 8.19 k/uL High 1.8-7.7 [facility] Comment on above: Performed By: #### C RP, CDP, SED #### [facility] [employer] [address] [place] [address] Accounts Supervisor: Chriss Townsend MD Basophils/100 WBC (Bld) 0 % Normal 0-2 [facility] Comment on above: Performed By: #### C RP, CDP, SED #### [facility] [employer] [address] [place] [address] Accounts Supervisor: Chriss Townsend MD Eosinophils (Bld) [#/Vol] 0.00 10*3/uL Normal 0.0-0.4 [facility] Comment on above: Performed By: #### C RP, CDP, SED #### [facility] [address] [place] [address] Accounts Supervisor: Chriss Townsend MD Eosinophils/100 WBC (Bld) 0 % Low 1-4 [facility] Comment on above: Performed By: #### C RP, CDP, SED #### [address] [address] Accounts Supervisor: Chriss Townsend MD Immature granulocytes/100 WBC (Bld) 0 % Normal 0 [facility] Comment on above: Performed By: #### C RP, CDP, SED #### [place] [address] Accounts Supervisor: Chriss Townsend MD Lymphocytes (Bld) [#/Vol] 0.64 10*3/uL Low 1.0-4.8 [facility] Comment on above: Performed By: #### C RP, CDP, SED #### [address] [address] Accounts Supervisor: Chriss Townsend MD Lymphocytes/100 WBC (Bld) 7 % Low 24-44 [facility] Comment on above: Performed By: #### C RP, CDP, SED #### [place] [address] Accounts Supervisor: Chriss Townsend MD Monocytes (Bld) [#/Vol] 0.37 10*3/uL Normal 0.1-0.8 [facility] Comment on above: Performed By: #### C RP, CDP, SED #### [place] [address] Accounts Supervisor: Chriss Townsend MD Monocytes/100 WBC (Bld) 4 % Normal 1-7 [facility] Comment on above: Performed By: #### C RP, CDP, SED #### [address] [address] Accounts Supervisor: Chriss Townsend MD Morphology Demetrio (Bld) [Interp] ANISOCYTOSIS PRESENT Normal [facility] Comment on above: Performed By: #### C RP, CDP, SED #### [address] [place] [address] Accounts Supervisor: Chriss Townsend MD Neutrophil (Seg) 89 % High 36-66 [facility] Comment on above: Performed By: #### C RP, CDP, SED #### [address] [address] Accounts Supervisor: Chriss Townsend MD Erythrocyte distribution width (RBC) [Ratio] 14.6 % High 11.8-14.4 [facility] Comment on above: Performed By: #### C RP, CDP, SED #### [facility] [address] [place] [address] Accounts Supervisor: Chriss Townsend MD Hematocrit (Bld) [Volume fraction] 33.6 % Low 36.3-47.1 [facility] Comment on above: Performed By: #### C RP, CDP, SED #### [facility] [address] [place] [address] Accounts Supervisor: Chriss Townsend MD Hemoglobin (Bld) [Mass/Vol] 10.8 g/dL Low 11.9-15.1 [facility] Comment on above: Performed By: #### C RP, CDP, SED #### [facility] [address] [place] [address] Accounts Supervisor: Chriss Townsend MD MCH (RBC) [Entitic mass] 29.9 pg Normal 25.2-33.5 [facility] Comment on above: Performed By: #### C RP, CDP, SED #### [facility] [address] [place] [address] Accounts Supervisor: Chriss Townsend MD MCHC (RBC) [Mass/Vol] 32.1 g/dL Normal 28.4-34.[address] [facility] Comment on above: Performed By: #### C RP, CDP, SED #### [facility] [address] [place] [address] Accounts Supervisor: Chriss Townsend MD MCV (RBC) [Entitic vol] 93.1 fL Normal 82.6-102.9 [facility] Comment on above: Performed By: #### C RP, CDP, SED #### [address] [address] Accounts Supervisor: Chriss Townsend MD NRBC Automated 0.0 per 100 WBC Normal 0.0 [facility] Comment on above: Performed By: #### C RP, CDP, SED #### [address] [address] Accounts Supervisor: Chriss Townsend MD Platelet mean volume (Bld) [Entitic vol] 9.6 fL Normal 8.1-13.5 [facility] Comment on above: Performed By: #### C RP, CDP, SED #### [address] [address] Accounts Supervisor: Chriss Townsend MD Platelets (Bld) [#/Vol] 169 10*3/uL Normal 138-453 [facility] Comment on above: Performed By: #### C RP, CDP, SED #### [address] [address] Accounts Supervisor: Chriss Townsend MD RBC (Bld) [#/Vol] 3.61 10*6/uL Low 3.95-5.11 [facility] Comment on above: Performed By: #### C RP, CDP, SED #### [address] [address] Accounts Supervisor: Chriss Townsend MD WBC (Bld) [#/Vol] 9.2 10*3/uL Normal 3.5-11.3 [facility] Comment on above: Performed By: #### C RP, CDP, SED #### [address] [address] Accounts Supervisor: Chriss Townsend MD CT RADIUS ULNA RIGHT [...] Jett Dumont MD 08/20/21 Final result Normal [facility] Very limited exam. Subcutaneous edema about the [...] noted at the right posterior lung base. [facility] RIS CONSOLIDATED Jett Dumont MD - 08/20/2021 [...] at the dependent posterior right lung base. [employer] Work Phone: CT RADIUS ULNA RIGHT W CONTR ASTOrdered By: Jett Dumont on 08-20-2021 [employer] Work Phone: Crystals, Body Fluidon 08-20 Crystals, Fluid Negative NEGATIVE [employer]eem [employer] Comment on above: NO CRYSTALS SEEN Specimen type Nom (Spec) .SHOULDER [facility] [employer] Comment on above: RIGHT JOINT FLUID [employer] Crystals, Fluidson 2 Crystals,Fluid Negative Normal NEG [facility] Comment on above: Result Comment: NO C RYSTALS SEEN Performed By: #### F LCRYS, BFCNT #### [facility] [address] [phone] Accounts Supervisor: Chriss Townsend MD Magnesiumon 08-20-2021 Magnesium [Mass/Vol] 2.0 mg/dL Normal 1.6-2.6 [facility] Comment on above: Performed By: #### C RP, CDP, SED #### [facility] [address] [place] [address] [phone] Accounts Supervisor: Chriss Townsend MD Magnesium [Mass/Vol] 2.0 mg/dL 1.6 - 2 .6 mg/dL [facility] Basic Metab w/rfx MGon 08-19 (cont.) Normal [facility] Comment on above: Result Comment: Aver age GFR for 60-69 years old: 85 mL/min/1.73sq m Chronic Kidney Disease: <60 mL/min/1.73sq m Kidney failure: <15 mL/min/1.73sq m eGFR calculated using average adult body mass. Additional eGFR calculator available at: http://www.[employer]multiple_crcl_2012.htm Performed By: #### C RP, CDP, SED #### [facility] [address] [place] [phone] Accounts Supervisor: Chriss Townsend MD Anion gap [Moles/Vol] 12 mmol/L Normal 9-[address] [facility] Comment on above: Performed By: #### C RP, CDP, SED #### [facility] [employer] [address] [place] [address] [phone] Accounts Supervisor: Chriss Townsend MD Calcium [Mass/Vol] 8.7 mg/dL Normal 8.6-10.4 [facility] Comment on above: Performed By: #### C RP, CDP, SED #### [facility] [employer] [address] [place] [address] [phone] Accounts Supervisor: Chriss Townsend MD Chloride [Moles/Vol] 106 mmol/L Normal 98-107 [facility] Comment on above: Performed By: #### C RP, CDP, SED #### [facility] [address] [place] [address] Accounts Supervisor: Chriss Townsend MD CO2 [Moles/Vol] 24 mmol/L Normal 20-31 [facility] Comment on above: Performed By: #### C RP, CDP, SED #### [facility] [address] [place] [address] Accounts Supervisor: Chriss Townsend MD Creatinine [Mass/Vol] 0.38 mg/dL Low 0.50-0.[address] [facility] Comment on above: Performed By: #### C RP, CDP, SED #### [facility] [address] [place] [address] Accounts Supervisor: Chriss Townsend MD GFR, Amer >60 Normal >60 [facility] Comment on above: Performed By: #### C RP, CDP, SED #### [facility] [address] [place] [address] Accounts Supervisor: Chriss Townsend MD GFR,non Amer >60 Normal >60 [facility] Comment on above: Performed By: #### C RP, CDP, SED #### [facility] [address] [place] [address] Accounts Supervisor: Chriss Townsend MD Glucose [Mass/Vol] 81 mg/dL Normal 70-99 [facility] Comment on above: Performed By: #### C RP, CDP, SED #### [facility] [address] [place] [address] Accounts Supervisor: Chriss Townsend MD Potassium [Moles/Vol] 3.0 mmol/L Low 3.7-5.[address] [facility] Comment on above: Performed By: #### C RP, CDP, SED #### [facility] [address] [place] [address] Accounts Supervisor: Chriss Townsend MD Sodium [Moles/Vol] 142 mmol/L Normal 135-144 [facility] Comment on above: Performed By: #### C RP, CDP, SED #### [facility] [address] [place], [place] [phone] Accounts Supervisor: Chriss Townsend MD Urea nitrogen [Mass/Vol] 11 mg/dL Normal 8-23 [facility] Comment on above: Performed By: #### C RP, CDP, SED #### [facility] [address] [place], [place] [phone] Accounts Supervisor: Chriss Townsend MD Basic Metabolic Panel w/ Ref sujatha to on 08-19-2021 Anion gap [Moles/Vol] 12 mmol/L 9 - 17 mmol/L [employer] Calcium [Mass/Vol] 8.7 mg/dL 8.6 - 10. 4 mg/dL [facility] Chloride [Moles/Vol] 106 mmol/L 98 - 10 7 mmol/L [facility] CO2 [Moles/Vol] 24 mmol/L 20 - 31 mmol/L [employer] [facility] Creatinine [Mass/Vol] 0.38 mg/dL Low 0.50 - 0.90 mg/dL [employer] GFR >60 >60 mL/min [facility] [employer] GFR Non- >60 >60 mL/min [employer] [facility] GFR/1.73 sq M.predicted MDRD (S/P/Bld) [Vol rate/Area] [facility] Comment on above: Average GFR for 60-6 9 years old: 85 mL/min/1.73sq m Chronic Kidney Disease: <60 mL/min/1.73sq m Kidney failure: <15 mL/min/1.73sq m eGFR calculated using average adult body mass. Additional eGFR calculator available at: http://www.[employer]can.[employer]/multiple_crcl_2012.htm Glucose [Mass/Vol] 81 mg/dL 70 - 99 mg/dL [facility] [employer] Interpretation and review of laboratory results Abnormal [facility] Potassium [Moles/Vol] 3.0 mmol/L Low 3.7 - 5.3 mmol/L [facility] Sodium [Moles/Vol] 142 mmol/L 135 - 144 mmol/L [facility] Urea nitrogen (BldV) [Mass/Vol] 11 mg/dL 8 - 23 mg/dL [facility] CBC with Auto Differentialon 08-19-2021 Absolute Eos # <0.03 [facility] Absolute Immature Granulocyte 0.27 [facility] Absolute Lymph # 0.75 Low [facility] Absolute Beltrami # 0.25 [facility] Basophils (Bld) [#/Vol] 0.03 10*3/uL [facility] Basophils/100 WBC (Bld) 0 % 0 - 2 % [facility] Eosinophils/100 WBC (Bld) 0 % Low 1 - 4 % [facility] Hematocrit (Bld) [Volume fraction] 36.0 % Low 36.3 - 47.1 % [facility] Hemoglobin.gastrointe stinal spec 1 Ql (Stl) 10.9 g/dL Low 11.9 - 15.1 g/dL [facility] Immature granulocytes/100 WBC (Bld) 3 % High 0 [facility] Interpretation and review of laboratory results Abnormal [facility] Lymphocytes/100 WBC (Bld) 8 % Low 24 - 43 % [facility] MCH (RBC) [Entitic mass] 28.9 pg 25.2 - 33.5 pg [facility] MCHC (RBC) [Mass/Vol] 30.3 g/dL 28.4 - 34.8 g/dL [facility] MCV (RBC) [Entitic vol] 95.5 fL 82.6 - 102.9 fL [facility] Monocytes/100 WBC (Bld) 3 % 3 - 12 % [facility] NRBC Automated 0.0 0.0 per 100 WBC [facility] Platelet distribution width (Bld) [Ratio] 14.4 % 11.8 - 14.4 % [facility] Platelet mean volume (Bld) [Entitic vol] 9.6 fL 8.1 - 13.5 fL [facility] Platelets (Bld) [#/Vol] 177 10*3/uL [facility] RBC (Bld) [#/Vol] 3.77 10*6/uL Low 3.95 - 5.1 1 m/uL [facility] Segmented neutrophils/100 WBC (Bld) 86 % High 36 - 65 % [facility] Segs Absolute 8.21 High [facility] WBC (Bld) [#/Vol] 9.5 10*3/uL [facility] CBC with Diffon 08-19-2021 Abs. Basophil 0.03 k/uL Normal 0.00-0.20 [facility] Comment on above: Performed By: #### C RP, CDP, SED #### [place] [address] Accounts Supervisor: Chriss Townsend MD Abs. Eosinophil <0.03 Normal 0.00-0.44 [facility] Comment on above: Performed By: #### C RP, CDP, SED #### [facility] [address] [place] [address] Accounts Supervisor: Chriss Townsend MD Abs.Imm.Granulocyte 0.27 k/uL Normal 0.00-0.30 [facility] Comment on above: Performed By: #### C RP, CDP, SED #### [facility] [address] [place] [address] Accounts Supervisor: Chriss Townsend MD Abs.Neutrophil (Seg) 8.21 k/uL High 1.50-8.10 [facility] Comment on above: Performed By: #### C RP, CDP, SED #### [facility] [address] [place] [address] Accounts Supervisor: Chriss Townsend MD Basophils/100 WBC (Bld) 0 % Normal 0-2 [facility] Comment on above: Performed By: #### C RP, CDP, SED #### [facility] [address] [place], [place] [id number] Accounts Supervisor: Chriss Townsend MD Eosinophils/100 WBC (Bld) 0 % Low 1-4 [facility] Comment on above: Performed By: #### C RP, CDP, SED #### [facility] [address] [place] [address] Accounts Supervisor: Chriss Townsend MD Erythrocyte distribution width (RBC) [Ratio] 14.4 % Normal 11.8-14.4 [facility] Comment on above: Performed By: #### C RP, CDP, SED #### [facility] [address] [place] [address] Accounts Supervisor: Chriss Townsend MD Hematocrit (Bld) [Volume fraction] 36.0 % Low 36.3-47.1 [facility] Comment on above: Performed By: #### C RP, CDP, SED #### [facility] [address] [place] [address] Accounts Supervisor: Chriss Townsend MD Hemoglobin (Bld) [Mass/Vol] 10.9 g/dL Low 11.9-15.1 [facility] Comment on above: Performed By: #### C RP, CDP, SED #### [facility] [address] [place] [address] Accounts Supervisor: Chriss Townsend MD Immature granulocytes/100 WBC (Bld) 3 % High 0 [facility] Comment on above: Performed By: #### C RP, CDP, SED #### [facility] [address] [place] [address] Accounts Supervisor: Chriss Townsend MD Lymphocytes (Bld) [#/Vol] 0.75 10*3/uL Low 1.10-3.70 [facility] Comment on above: Performed By: #### C RP, CDP, SED #### [facility] [employer] [facility] [address] [place] [address] Accounts Supervisor: Chriss Townsend MD Lymphocytes/100 WBC (Bld) 8 % Low 24-43 [facility] Comment on above: Performed By: #### C RP, CDP, SED #### [address] [address] Accounts Supervisor: Chriss Townsend MD MCH (RBC) [Entitic mass] 28.9 pg Normal 25.2-33.5 [facility] Comment on above: Performed By: #### C RP, CDP, SED #### [address] [address] Accounts Supervisor: Chriss Townsend MD MCHC (RBC) [Mass/Vol] 30.3 g/dL Normal 28.4-34.[address] [facility] Comment on above: Performed By: #### C RP, CDP, SED #### [place] [address] Accounts Supervisor: Chriss Townsend MD MCV (RBC) [Entitic vol] 95.5 fL Normal 82.6-102.9 [facility] Comment on above: Performed By: #### C RP, CDP, SED #### [address] [address] Accounts Supervisor: Chriss Townsend MD Monocytes (Bld) [#/Vol] 0.25 10*3/uL Normal 0.10-1.20 [facility] Comment on above: Performed By: #### C RP, CDP, SED #### [address] [address] Accounts Supervisor: Chriss Townsend MD Monocytes/100 WBC (Bld) 3 % Normal 3-12 [facility] Comment on above: Performed By: #### C RP, CDP, SED #### [address] [address] Accounts Supervisor: Chriss Townsend MD Neutrophil (Seg) 86 % High 36-65 [facility] Comment on above: Performed By: #### C RP, CDP, SED #### [address] [address] Accounts Supervisor: Chriss Townsend MD NRBC Automated 0.0 per 100 WBC Normal 0.0 [facility] Comment on above: Performed By: #### C RP, CDP, SED #### [address] [address] Accounts Supervisor: Chriss Townsend MD Platelet mean volume (Bld) [Entitic vol] 9.6 fL Normal 8.1-13.5 [facility] Comment on above: Performed By: #### C RP, CDP, SED #### [address] [address] Accounts Supervisor: Chriss Townsend MD Platelets (Bld) [#/Vol] 177 10*3/uL Normal 138-453 [facility] Comment on above: Performed By: #### C RP, CDP, SED #### [address] [address] Accounts Supervisor: Chriss Townsend MD RBC (Bld) [#/Vol] 3.77 10*6/uL Low 3.95-5.11 [facility] Comment on above: Performed By: #### C RP, CDP, SED #### [address] [address] Accounts Supervisor: Chriss Townsend MD WBC (Bld) [#/Vol] 9.5 10*3/uL Normal 3.5-11.3 [facility] Comment on above: Performed By: #### C RP, CDP, SED #### [address] [address] Accounts Supervisor: Chriss Townsend MD Cult,Aerobe/Anaerobeon 08-19 Cult,Aerobe/Anaerobe Specimen [...] Tetracycline <=1 SUSCEPTIBLE Trimethoprim/Sulfa <=10 SUSCEPTIBLE Susceptible [facility] Comment on above: Performed By: #### C MARC, SEBASTIAN, SED #### [facility] [address] [place] [address] Accounts Supervisor: Chriss Townsend MD Cult,Aerobe/Anaerobe Specimen Descriptio n [...] Tetracycline <=1 SUSCEPTIBLE Trimethoprim/Sulfa <=10 SUSCEPTIBLE Susceptible [facility] Comment on above: Performed By: #### C RP, CDP, SED #### [facility] [address] [place] [address] Accounts Supervisor: Chriss Townsend MD Culture, Anaerobic and Aerob icon 08-19-2021 Bacteria identified Cx Nom (Unsp spec) STAPHYLOCOCCUS AUREUS LIGHT GROWTH This isolate is methicillin susceptible. Abnormal [facility] Bacteria identified Cx Nom (Unsp spec) CALLED TO TERRI Hensley 08/17/21 13:40 [facility] Bacteria identified Cx Nom (Unsp spec) No anaerobic organisms isolated at 5 days. [facility] Direct Exam MODERATE NEUTROPHILS Abnormal [facility] Direct Exam NO BACTERIA SEEN [facility] Interpretation and review of laboratory results Abnormal [facility] Specimen Description .SHOULDER RIGHT [facility] Magnesiumon 08-19-2021 Magnesium [Mass/Vol] 1.7 mg/dL Normal 1.6-2.6 [facility] Comment on above: Performed By: #### C OVRB #### [facility] [address] [place] [address] [phone] Accounts Supervisor: Chriss Townsend MD Magnesium [Mass/Vol] 1.7 mg/dL 1.6 - 2 .6 mg/dL [facility] Basic Metab w/rfx MGon 08-18 (cont.) Normal [facility] Comment on above: Result Comment: Aver age GFR for 60-69 years old: 85 mL/min/1.73sq m Chronic Kidney Disease: <60 mL/min/1.73sq m Kidney failure: <15 mL/min/1.73sq m eGFR calculated using average adult body mass. Additional eGFR calculator available at: http://www.2can.[employer]/multiple_crcl_2012.htm Performed By: #### C RP, CDP, SED #### [facility] [address] [place] [address] Accounts Supervisor: Chriss Townsend MD Anion gap [Moles/Vol] 9 mmol/L Normal 9-[address] [facility] Comment on above: Performed By: #### C RP, CDP, SED #### [facility] [address] [place] [address] Accounts Supervisor: Chriss Townsend MD Calcium [Mass/Vol] 9.4 mg/dL Normal 8.6-10.4 [facility] Comment on above: Performed By: #### C RP, CDP, SED #### [facility] [address] [place] [address] Accounts Supervisor: Chriss Townsend MD Chloride [Moles/Vol] 107 mmol/L Normal 98-107 [facility] Comment on above: Performed By: #### C RP, CDP, SED #### [facility] [address] [place] [address] Accounts Supervisor: Chriss Townsend MD CO2 [Moles/Vol] 21 mmol/L Normal 20-31 [facility] Comment on above: Performed By: #### C RP, CDP, SED #### [facility] [address] [place] [address] Accounts Supervisor: Chriss Townsend MD Creatinine [Mass/Vol] 0.42 mg/dL Low 0.50-0.[address] [facility] Comment on above: Performed By: #### C RP, CDP, SED #### [facility] [address] [place] [address] Accounts Supervisor: Chriss Townsend MD GFR, Amer >60 Normal >60 [facility] Comment on above: Performed By: #### C RP, CDP, SED #### [facility] [address] [place] [address] Accounts Supervisor: Chriss Townsend MD GFR,non Amer >60 Normal >60 [facility] Comment on above: Performed By: #### C RP, CDP, SED #### [facility] [address] [place] [address] Accounts Supervisor: Chriss Townsend MD Glucose [Mass/Vol] 139 mg/dL High 70-99 [facility] Comment on above: Performed By: #### C RP, CDP, SED #### [facility] [address] [place] [address] Accounts Supervisor: Chriss Townsend MD Potassium [Moles/Vol] 3.5 mmol/L Low 3.7-5.[address] [facility] Comment on above: Performed By: #### C RP, CDP, SED #### [facility] [address] [place], [place] [phone] Accounts Supervisor: Chriss Townsend MD Sodium [Moles/Vol] 137 mmol/L Normal 135-144 [facility] Comment on above: Performed By: #### C RP, CDP, SED #### [facility] [address] [place] [address] [id number] Accounts Supervisor: Chriss Townsend MD Urea nitrogen [Mass/Vol] 17 mg/dL Normal 8-23 [facility] Comment on above: Performed By: #### C RP, CDP, SED #### [facility] [address] [place] [address] [id number] Accounts Supervisor: Chriss Townsend MD Basic Metabolic Panel w/ Ref sujatha to MGon 08-18-2021 Anion gap [Moles/Vol] 9 mmol/L 9 - 17 mmol/L [facility] [employer] Calcium [Mass/Vol] 9.4 mg/dL 8.6 - 10. 4 mg/dL [facility] [employer] Chloride [Moles/Vol] 107 mmol/L 98 - 10 7 mmol/L [facility] [employer] CO2 [Moles/Vol] 21 mmol/L 20 - 31 mmol/L [facility] [employer] Creatinine [Mass/Vol] 0.42 mg/dL Low 0.50 - 0.90 mg/dL [facility] GFR >60 >60 mL/min [facility] GFR Non- >60 >60 mL/min [facility] GFR/1.73 sq M.predicted MDRD (S/P/Bld) [Vol rate/Area] [facility] Comment on above: Average GFR for 60-6 9 years old: 85 mL/min/1.73sq m Chronic Kidney Disease: <60 mL/min/1.73sq m Kidney failure: <15 mL/min/1.73sq m eGFR calculated using average adult body mass. Additional eGFR calculator available at: http://www.[employer]multiple_crcl_2012.htm Glucose [Mass/Vol] 139 mg/dL High 70 - 99 mg/dL [facility] Potassium [Moles/Vol] 3.5 mmol/L Low 3.7 - 5.3 mmol/L [facility] Sodium [Moles/Vol] 137 mmol/L 135 - 144 mmol/L [facility] Urea nitrogen (BldV) [Mass/Vol] 17 mg/dL 8 - 23 mg/dL [facility] C-Reactive Proteinon 022 CRP [Mass/Vol] 104.5 mg/L High 0.0-5.0 [facility] Comment on above: Performed By: #### C RP, CDP, SED #### [facility] [address] [phone] Accounts Supervisor: Chriss Townsend MD CRP [Mass/Vol] 104.5 mg/L High 0.0 - 5.0 mg/L [facility] CBC with Auto Differentialon 08-18-2021 Absolute Eos # 0.00 [facility] Immature Granulocyte 0.00 [facility] Absolute Lymph # 0.66 Low [facility] Absolute Beltrami # 0.19 [facility] Basophils (Bld) [#/Vol] 0.00 10*3/uL [facility] Basophils/100 WBC (Bld) 0 % 0 - 2 % [facility] Eosinophils/100 WBC (Bld) 0 % Low 1 - 4 % [facility] Hematocrit (Bld) [Volume fraction] 31.1 % Low 36.3 - 47.1 % [facility] Hemoglobin.gastrointe stinal spec 1 Ql (Stl) 9.9 g/dL Low 11.9 - 15.1 g/dL [facility] Immature granulocytes/100 WBC (Bld) 0 % 0 [facility] Interpretation and review of laboratory results Abnormal [facility] Lymphocytes/100 WBC (Bld) 7 % Low 24 - 44 % [facility] MCH (RBC) [Entitic mass] 29.6 pg 25.2 - 33.5 pg [facility] MCHC (RBC) [Mass/Vol] 31.8 g/dL 28.4 - 34.8 g/dL [facility] MCV (RBC) [Entitic vol] 92.8 fL 82.6 - 102.9 fL [facility] Monocytes/100 WBC (Bld) 2 % 1 - 7 % [facility] Morphology Demetrio (Bld) [Interp] Normal [facility] NRBC Automated 0.0 0.0 per 100 WBC [facility] Platelet distribution width (Bld) [Ratio] 14.4 % 11.8 - 14.4 % [facility] Platelet mean volume (Bld) [Entitic vol] 9.8 fL 8.1 - 13.5 fL [facility] Platelets (Bld) [#/Vol] 164 10*3/uL [facility] RBC (Bld) [#/Vol] 3.35 10*6/uL Low 3.95 - 5.1 1 m/uL [facility] Segmented neutrophils/100 WBC (Bld) 91 % High 36 - 66 % [facility] Segs Absolute 8.55 High [facility] WBC (Bld) [#/Vol] 9.4 10*3/uL [facility] CBC with Diffon 08-18-2021 Abs. Basophil 0.00 k/uL Normal 0.0-0.2 [facility] Comment on above: Performed By: #### C SEBASTIAN TRAN, SED #### [facility] [place], [place] [phone] Accounts Supervisor: Chriss Townsend MD Abs.Imm.Granulocyte 0.00 k/uL Normal 0.00-0.30 [facility] Comment on above: Performed By: #### C RP, CDP, SED #### [facility] [address] [place], [place] [phone] Accounts Supervisor: Chriss Townsend MD Abs.Neutrophil (Seg) 8.55 k/uL High 1.8-7.7 [facility] Comment on above: Performed By: #### C RP, CDP, SED #### [address] [address] Accounts Supervisor: Chriss Townsend MD Basophils/100 WBC (Bld) 0 % Normal 0-2 [facility] Comment on above: Performed By: #### C RP, CDP, SED #### [address] [address] Accounts Supervisor: Chriss Townsend MD Eosinophils (Bld) [#/Vol] 0.00 10*3/uL Normal 0.0-0.4 [facility] Comment on above: Performed By: #### C RP, CDP, SED #### [address] [address] Accounts Supervisor: Chriss Townsend MD Eosinophils/100 WBC (Bld) 0 % Low 1-4 [facility] Comment on above: Performed By: #### C RP, CDP, SED #### [address] [address] Accounts Supervisor: Chriss Townsend MD Immature granulocytes/100 WBC (Bld) 0 % Normal 0 [facility] Comment on above: Performed By: #### C RP, CDP, SED #### [address] [address] Accounts Supervisor: Chriss Townsend MD Lymphocytes (Bld) [#/Vol] 0.66 10*3/uL Low 1.0-4.8 [facility] Comment on above: Performed By: #### C RP, CDP, SED #### [facility] [address] [place] [address] Accounts Supervisor: Chriss Twonsend MD Lymphocytes/100 WBC (Bld) 7 % Low 24-44 [facility] Comment on above: Performed By: #### C RP, CDP, SED #### [address] [address] Accounts Supervisor: Chriss Townsend MD Monocytes (Bld) [#/Vol] 0.19 10*3/uL Normal 0.1-0.8 [facility] Comment on above: Performed By: #### C RP, CDP, SED #### [address] [address] Accounts Supervisor: Chriss Townsend MD Monocytes/100 WBC (Bld) 2 % Normal 1-7 [facility] Comment on above: Performed By: #### C RP, CDP, SED #### [address] [address] Accounts Supervisor: Chriss Townsend MD Morphology Demetrio (Bld) [Interp] Normal Normal [facility] Comment on above: Performed By: #### C RP, CDP, SED #### [address] [address] Accounts Supervisor: Chriss Townsend MD Neutrophil (Seg) 91 % High 36-66 [facility] Comment on above: Performed By: #### C RP, CDP, SED #### [address] [address] Accounts Supervisor: Chriss Townsend MD Erythrocyte distribution width (RBC) [Ratio] 14.4 % Normal 11.8-14.4 [facility] Comment on above: Performed By: #### C RP, CDP, SED #### [facility] [address] [place] [address] Accounts Supervisor: Chriss Townsend MD Hematocrit (Bld) [Volume fraction] 31.1 % Low 36.3-47.1 [facility] Comment on above: Performed By: #### C RP, CDP, SED #### [address] [address] Accounts Supervisor: Chriss Townsend MD Hemoglobin (Bld) [Mass/Vol] 9.9 g/dL Low 11.9-15.1 [facility] Comment on above: Performed By: #### C RP, CDP, SED #### [address] [address] Accounts Supervisor: Chriss Townsend MD MCH (RBC) [Entitic mass] 29.6 pg Normal 25.2-33.5 [facility] Comment on above: Performed By: #### C RP, CDP, SED #### [address] [address] Accounts Supervisor: Chriss Townsend MD MCHC (RBC) [Mass/Vol] 31.8 g/dL Normal 28.4-34.[address] [facility] Comment on above: Performed By: #### C RP, CDP, SED #### [address] [address] Accounts Supervisor: Chriss Townsend MD MCV (RBC) [Entitic vol] 92.8 fL Normal 82.6-102.9 [facility] Comment on above: Performed By: #### C RP, CDP, SED #### [address] [address] Accounts Supervisor: Chriss Townsend MD NRBC Automated 0.0 per 100 WBC Normal 0.0 [facility] Comment on above: Performed By: #### C RP, CDP, SED #### [address] [address] Accounts Supervisor: Chriss Townsend MD Platelet mean volume (Bld) [Entitic vol] 9.8 fL Normal 8.1-13.5 [facility] Comment on above: Performed By: #### C RP, CDP, SED #### [address] [address] Accounts Supervisor: Chriss Townsend MD Platelets (Bld) [#/Vol] 164 10*3/uL Normal 138-453 [facility] Comment on above: Performed By: #### C RP CDP, SED #### [facility] [employer] [facility] [place] [address] Accounts Supervisor: Chriss Townsend MD RBC (Bld) [#/Vol] 3.35 10*6/uL Low 3.95-5.11 [facility] Comment on above: Performed By: #### C RP, CDP, SED #### [facility] [employer] [facility] [place] [address] Accounts Supervisor: Chriss Townsend MD WBC (Bld) [#/Vol] 9.4 10*3/uL Normal 3.5-11.3 [facility] Comment on above: Performed By: #### C RP CDP, SED #### [facility] [employer] [address] [place] [address] Accounts Supervisor: Chriss Townsend MD Magnesiumon 08-18-2021 Magnesium [Mass/Vol] 2.0 mg/dL Normal 1.6-2.6 [facility] Comment on above: Performed By: #### C RP, CDP, SED #### [facility] [employer] [facility] [place] [address] Accounts Supervisor: Chriss Townsend MD Magnesium [Mass/Vol] 2.0 mg/dL 1.6 - 2 .6 mg/dL [facility] No Panel Informationon 08-18 Interpretation and review of laboratory results Abnormal [facility] Basic Metab w/rfx MGon 08-17 (cont.) Normal [facility] Comment on above: Result Comment: Aver age GFR for 60-69 years old: 85 mL/min/1.73sq m Chronic Kidney Disease: <60 mL/min/1.73sq m Kidney failure: <15 mL/min/1.73sq m eGFR calculated using average adult body mass. Additional eGFR calculator available at: http://www.2can.[employer]/multiple_crcl_2012.htm Performed By: #### C RP, CDP, SED #### [facility] [address] [place] [address] Accounts Supervisor: Chriss Townsend MD Anion gap [Moles/Vol] 13 mmol/L Normal 9-[address] [facility] Comment on above: Performed By: #### C RP, CDP, SED #### [facility] [address] [place] [address] Accounts Supervisor: Chriss Townsend MD Calcium [Mass/Vol] 9.2 mg/dL Normal 8.6-10.4 [facility] Comment on above: Performed By: #### C RP, CDP, SED #### [facility] [address] [place] [address] Accounts Supervisor: Chriss Townsend MD Chloride [Moles/Vol] 114 mmol/L High 98-107 [facility] Comment on above: Performed By: #### C RP, CDP, SED #### [facility] [address] [place] [address] Accounts Supervisor: Chriss Townsend MD CO2 [Moles/Vol] 15 mmol/L Low 20-31 [facility] Comment on above: Performed By: #### C RP, CDP, SED #### [facility] [address] [place] [address] Accounts Supervisor: Chriss Tonwsend MD Creatinine [Mass/Vol] 0.31 mg/dL Low 0.50-0.[address] [facility] Comment on above: Performed By: #### C RP, CDP, SED #### [facility] [address] [place] [address] Accounts Supervisor: Chriss Townsend MD GFR, Amer >60 Normal >60 [facility] Comment on above: Performed By: #### C RP, CDP, SED #### [facility] [address] [place] [address] Accounts Supervisor: Chriss Townsend MD GFR,non Amer >60 Normal >60 [facility] Comment on above: Performed By: #### C RP, CDP, SED #### [facility] [address] [place] [address] Accounts Supervisor: Chriss Townsend MD Glucose [Mass/Vol] 89 mg/dL Normal 70-99 [facility] Comment on above: Performed By: #### C RP, CDP, SED #### [facility] [address] [place] [address] Accounts Supervisor: Chriss Townsend MD Potassium [Moles/Vol] 3.9 mmol/L Normal 3.7-5.[address] [facility] Comment on above: Performed By: #### C RP, CDP, SED #### [facility] [address] [place] [address] Accounts Supervisor: Chriss Townsend MD Sodium [Moles/Vol] 142 mmol/L Normal 135-144 [facility] Comment on above: Performed By: #### C RP, CDP, SED #### [facility] [address] [place] [address] Accounts Supervisor: Chriss Townsend MD Urea nitrogen [Mass/Vol] 13 mg/dL Normal 8-23 [facility] Comment on above: Performed By: #### C RP, CDP, SED #### [facility] [address] [place] [address] Accounts Supervisor: Chriss Townsend MD Basic Metabolic Panel w/ Ref sujatha to MGon 08-17-2021 Anion gap [Moles/Vol] 13 mmol/L 9 - 17 mmol/L [facility] Calcium [Mass/Vol] 9.2 mg/dL 8.6 - 10. 4 mg/dL [facility] Chloride [Moles/Vol] 114 mmol/L High 98 - 10 7 mmol/L [facility] CO2 [Moles/Vol] 15 mmol/L Low 20 - 31 mmol/L [facility] Creatinine [Mass/Vol] 0.31 mg/dL Low 0.50 - 0.90 mg/dL [facility] GFR >60 >60 mL/min [facility] GFR Non- >60 >60 mL/min [facility] GFR/1.73 sq M.predicted MDRD (S/P/Bld) [Vol rate/Area] [facility] Comment on above: Average GFR for 60-6 9 years old: 85 mL/min/1.73sq m Chronic Kidney Disease: <60 mL/min/1.73sq m Kidney failure: <15 mL/min/1.73sq m eGFR calculated using average adult body mass. Additional eGFR calculator available at: http://www.[employer]multiple_crcl_2012.htm Glucose [Mass/Vol] 89 mg/dL 70 - 99 mg/dL [facility] Interpretation and review of laboratory results Abnormal [facility] Potassium [Moles/Vol] 3.9 mmol/L 3.7 - 5.3 mmol/L [facility] Sodium [Moles/Vol] 142 mmol/L 135 - 144 mmol/L [facility] Urea nitrogen (BldV) [Mass/Vol] 13 mg/dL 8 - 23 mg/dL [facility] Body Fluid Counton 2 RBC [id number] /mm3 Normal [facility] Comment on above: Result Comment: The reference range and other method performance specifications have not been established for this body fluid. The test result must be integrated into the clinical context for interpretation. Performed By: #### F LCRYS, BFCNT #### [facility] [employer] [facility] [place] [address] Accounts Supervisor: Chriss Townsend MD WBC [id number] /mm3 Normal [facility] Comment on above: Result Comment: The reference range and other method performance specifications have not been established for this body fluid. The test result must be integrated into the clinical context for interpretation. Performed By: #### F LCRYS, BFCNT #### [facility] [address] [phone] Accounts Supervisor: Chriss Townsend MD CBC with Auto Differentialon 08-17-2021 Absolute Eos # 0.00 [facility] Absolute Immature Granulocyte 0.00 [facility] Absolute Lymph # 0.41 Low [facility] Absolute Beltrami # 0.24 [facility] Basophils (Bld) [#/Vol] 0.00 10*3/uL [facility] Basophils/100 WBC (Bld) 0 % 0 - 2 % [facility] Eosinophils/100 WBC (Bld) 0 % Low 1 - 4 % [facility] Hematocrit (Bld) [Volume fraction] 35.4 % Low 36.3 - 47.1 % [facility] Hemoglobin.gastrointe stinal spec 1 Ql (Stl) 10.8 g/dL Low 11.9 - 15.1 g/dL [facility] Immature granulocytes/100 WBC (Bld) 0 % 0 [facility] Interpretation and review of laboratory results Abnormal [facility] Lymphocytes/100 WBC (Bld) 5 % Low 24 - 44 % [facility] MCH (RBC) [Entitic mass] 29.8 pg 25.2 - 33.5 pg [facility] MCHC (RBC) [Mass/Vol] 30.5 g/dL 28.4 - 34.8 g/dL [facility] MCV (RBC) [Entitic vol] 97.8 fL 82.6 - 102.9 fL [facility] Monocytes/100 WBC (Bld) 3 % 1 - 7 % [facility] Morphology Demetrio (Bld) [Interp] ANISOCYTOSIS PRESENT [facility] NRBC Automated 0.0 0.0 per 100 WBC [facility] Platelet distribution width (Bld) [Ratio] 14.6 % High 11.8 - 14.4 % [facility] Platelet mean volume (Bld) [Entitic vol] 9.9 fL 8.1 - 13.5 fL [facility] Platelets (Bld) [#/Vol] 123 10*3/uL Low [facility] RBC (Bld) [#/Vol] 3.62 10*6/uL Low 3.95 - 5.1 1 m/uL [facility] Segmented neutrophils/100 WBC (Bld) 92 % High 36 - 66 % [facility] Segs Absolute 7.45 [facility] WBC (Bld) [#/Vol] 8.1 10*3/uL [facility] CBC with Diffon 08-17-2021 Abs. Basophil 0.00 k/uL Normal 0.0-0.2 [facility] Comment on above: Performed By: #### C RP, CDP, SED #### [facility] [address] [place] [address] Accounts Supervisor: Chriss Townsend MD Abs.Imm.Granulocyte 0.00 k/uL Normal 0.00-0.30 [facility] Comment on above: Performed By: #### C RP, CDP, SED #### [facility] [address] [place] [address] Accounts Supervisor: Chriss Townsend MD Abs.Neutrophil (Seg) 7.45 k/uL Normal 1.8-7.7 [facility] Comment on above: Performed By: #### C RP, CDP, SED #### [facility] [employer] [address] [place] [address] Accounts Supervisor: Chriss Townsend MD Basophils/100 WBC (Bld) 0 % Normal 0-2 [facility] Comment on above: Performed By: #### C RP, CDP, SED #### [facility] [employer] [address] [place] [address] Accounts Supervisor: Chriss Townsend MD Eosinophils (Bld) [#/Vol] 0.00 10*3/uL Normal 0.0-0.4 [facility] Comment on above: Performed By: #### C RP, CDP, SED #### [facility] [address] [place] [address] Accounts Supervisor: Chriss Townsend MD Eosinophils/100 WBC (Bld) 0 % Low 1-4 [facility] Comment on above: Performed By: #### C RP, CDP, SED #### [address] [address] Accounts Supervisor: Chriss Townsend MD Immature granulocytes/100 WBC (Bld) 0 % Normal 0 [facility] Comment on above: Performed By: #### C RP, CDP, SED #### [address] [address] Accounts Supervisor: Chriss Townsend MD Lymphocytes (Bld) [#/Vol] 0.41 10*3/uL Low 1.0-4.8 [facility] Comment on above: Performed By: #### C RP, CDP, SED #### [address] [address] Accounts Supervisor: Chriss Townsend MD Lymphocytes/100 WBC (Bld) 5 % Low 24-44 [facility] Comment on above: Performed By: #### C RP, CDP, SED #### [address] [address] Accounts Supervisor: Chriss Townsend MD Monocytes (Bld) [#/Vol] 0.24 10*3/uL Normal 0.1-0.8 [facility] Comment on above: Performed By: #### C RP, CDP, SED #### [address] [address] Accounts Supervisor: Chriss Townsend MD Monocytes/100 WBC (Bld) 3 % Normal 1-7 [facility] Comment on above: Performed By: #### C RP, CDP, SED #### [address] [address] Accounts Supervisor: Chriss Townsend MD Morphology Demetrio (Bld) [Interp] ANISOCYTOSIS PRESENT Normal [facility] Comment on above: Performed By: #### C RP, CDP, SED #### [address] [address] Accounts Supervisor: Chriss Townsend MD Neutrophil (Seg) 92 % High 36-66 [facility] Comment on above: Performed By: #### C RP, CDP, SED #### [address] [address] Accounts Supervisor: Chriss Townsend MD Erythrocyte distribution width (RBC) [Ratio] 14.6 % High 11.8-14.4 [facility] Comment on above: Performed By: #### C RP, CDP, SED #### [address] [address] Accounts Supervisor: Chriss Townsend MD Hematocrit (Bld) [Volume fraction] 35.4 % Low 36.3-47.1 [facility] Comment on above: Performed By: #### C RP, CDP, SED #### [address] [address] Accounts Supervisor: Chriss Townsend MD Hemoglobin (Bld) [Mass/Vol] 10.8 g/dL Low 11.9-15.1 [facility] Comment on above: Performed By: #### C RP, CDP, SED #### [address] [address] Accounts Supervisor: Chriss Townsend MD MCH (RBC) [Entitic mass] 29.8 pg Normal 25.2-33.5 [facility] Comment on above: Performed By: #### C RP, CDP, SED #### [facility] [address] [place] [address] Accounts Supervisor: Chriss Townsend MD MCHC (RBC) [Mass/Vol] 30.5 g/dL Normal 28.4-34.8 [facility] Comment on above: Performed By: #### C RP, CDP, SED #### [address] [address] Accounts Supervisor: Chriss Townsend MD MCV (RBC) [Entitic vol] 97.8 fL Normal 82.6-102.9 [facility] Comment on above: Performed By: #### C RP, CDP, SED #### [address] [address] Accounts Supervisor: Chriss Townsend MD NRBC Automated 0.0 per 100 WBC Normal 0.0 [facility] Comment on above: Performed By: #### C RP, CDP, SED #### [address] [address] Accounts Supervisor: Chriss Townsend MD Platelet mean volume (Bld) [Entitic vol] 9.9 fL Normal 8.1-13.5 [facility] Comment on above: Performed By: #### C RP, CDP, SED #### [address] [address] Accounts Supervisor: Chriss Townsend MD Platelets (Bld) [#/Vol] 123 10*3/uL Low 138-453 [facility] Comment on above: Performed By: #### C RP, CDP, SED #### [address] [address] Accounts Supervisor: Chriss Townsend MD RBC (Bld) [#/Vol] 3.62 10*6/uL Low 3.95-5.11 [facility] Comment on above: Performed By: #### C RP, CDP, SED #### [address] [address] Accounts Supervisor: Chriss Townsend MD WBC (Bld) [#/Vol] 8.1 10*3/uL Normal 3.5-11.3 [facility] Comment on above: Performed By: #### C RP, CDP, SED #### [facility] [address] [phone] Accounts Supervisor: Chriss Townsend MD CT ASP ABS HEMATOMA BULLA CY STon 08-17-2021 CT-guided pubic symp hysis region aspiration performed successfully. [facility] Jonathan Villavicencio MD - 08/17/2021 PROCEDURE: CT-GUIDED [...] the procedure including risks, benefits, and alternatives. [place] protocol was observed. Sterile gowns, masks, hats [...] CT-guided pubic symphysis region aspiration performed successfully. [employer] Phone: Radiology Study observation (narrative) [employer] Phone: CT ASP ABS HEMATOMA BULLA CY STOrdered By: Jonathan Osorio on 08-17-2021 [facility] [employer] Work Phone: Cult,Aerobe/Anaerobeon 08-17 Cult,Aerobe/Anaerobe Specimen Descriptio [...] Tetracycline <=1 SUSCEPTIBLE Trimethoprim/Sulfa <=10 SUSCEPTIBLE Susceptible [facility] Comment on above: Performed By: #### A ANC #### [facility] [employer] [address] [place] [phone] Accounts Supervisor: Chriss Townsend MD Cult,Urineon 08-17-2021 Cult,Urine Specimen Description .URINE,STRAIGHT CATHETER Culture NO GROWTH Report Status FINAL 08/17/2021 Normal [facility] Comment on above: Performed By: #### L ACTIC #### [facility] [employer] [address] [place] [phone] Accounts Supervisor: Chriss Townsend MD Culture, Anaerobic and Aerob icon 08-17-2021 Bacteria identified Cx Nom (Unsp spec) STAPHYLOCOCCUS AUREUS LIGHT GROWTH This isolate is methicillin susceptible. Abnormal [facility] [employer] Bacteria identified Cx Nom (Unsp spec) No anaerobic organisms isolated at 5 days. [facility] [employer] Direct Exam MODERATE NEUTROPHILS Abnormal [facility] [employer] Direct Exam Positive Abnormal [facility] [employer] Interpretation and review of laboratory results Abnormal [facility] Specimen Description .ASPIRATE .SYNOVIAL FLUID [facility] [employer] Culture, Urineon 08-17-2021 Bacteria identified Cx Nom (U) NO GROWTH [facility] [employer] Specimen Description .URINE,STRAIGHT CATHETER [facility] XR ANKLE RIGHT (MIN 3 VIEWS) on [...] Collette Contreras MD 08/16/21 Final result Normal [facility] Basic Metab w/rfx MGon 08-16 (cont.) Normal [facility] Comment on above: Result Comment: Aver age GFR for 60-69 years old: 85 mL/min/1.73sq m Chronic Kidney Disease: <60 mL/min/1.73sq m Kidney failure: <15 mL/min/1.73sq m eGFR calculated using average adult body mass. Additional eGFR calculator available at: http://www.2can.[employer]/multiple_crcl_2012.htm Performed By: #### C OVRB #### [facility] [address] [place] [phone] Accounts Supervisor: Chriss Townsend MD Anion gap [Moles/Vol] 10 mmol/L Normal 9-[address] [facility] Comment on above: Performed By: #### C OVRB #### [facility] [address] [place] [address] [phone] Accounts Supervisor: Chriss Townsend MD Calcium [Mass/Vol] 9.2 mg/dL Normal 8.6-10.4 [facility] Comment on above: Performed By: #### C OVRB #### [facility] [address] [place] [phone] Accounts Supervisor: Chriss Townsend MD Chloride [Moles/Vol] 112 mmol/L High 98-107 [facility] Comment on above: Performed By: #### C OVRB #### [address] [address] Accounts Supervisor: Chriss Townsend MD CO2 [Moles/Vol] 22 mmol/L Normal 20-31 [facility] Comment on above: Performed By: #### C OVRB #### [address] [address] Accounts Supervisor: Chriss Townsend MD Creatinine [Mass/Vol] 0.42 mg/dL Low 0.50-0.[address] [facility] Comment on above: Performed By: #### C OVRB #### [address] [address] Accounts Supervisor: Chriss Townsend MD GFR, Amer >60 Normal >60 [facility] Comment on above: Performed By: #### C OVRB #### [address] [address] Accounts Supervisor: Chriss Townsend MD GFR,non Amer >60 Normal >60 [facility] Comment on above: Performed By: #### C OVRB #### [address] [address] Accounts Supervisor: Chriss Townsend MD Glucose [Mass/Vol] 76 mg/dL Normal 70-99 [facility] Comment on above: Performed By: #### C OVRB #### [address] [address] Accounts Supervisor: Chirss Townsend MD Sodium [Moles/Vol] 144 mmol/L Normal 135-144 [facility] Comment on above: Performed By: #### C OVRB #### [address] [phone] Accounts Supervisor: Chriss Townsend MD Urea nitrogen [Mass/Vol] 12 mg/dL Normal 8-23 [facility] Comment on above: Performed By: #### C OVRB #### [facility] [address] [place], [place] [phone] Accounts Supervisor: Chriss Townsend MD Potassium [Moles/Vol] 3.3 mmol/L Low 3.7-5.3 [facility] Comment on above: Performed By: #### C OVRB #### [facility] [address] [place] [address] Accounts Supervisor: Chriss Townsend MD Basic Metabolic Panel w/ Ref sujatha to [facility] 08-16-2021 Anion gap [Moles/Vol] 10 mmol/L 9 - 17 mmol/L [facility] Calcium [Mass/Vol] 9.2 mg/dL 8.6 - 10. 4 mg/dL [facility] Chloride [Moles/Vol] 112 mmol/L High 98 - 10 7 mmol/L [facility] CO2 [Moles/Vol] 22 mmol/L 20 - 31 mmol/L [facility] Creatinine [Mass/Vol] 0.42 mg/dL Low 0.50 - 0.90 mg/dL [facility] GFR >60 >60 mL/min [facility] GFR Non- >60 >60 mL/min [facility] GFR/1.73 sq M.predicted MDRD (S/P/Bld) [Vol rate/Area] [facility] Comment on above: Average GFR for 60-6 9 years old: 85 mL/min/1.73sq m Chronic Kidney Disease: <60 mL/min/1.73sq m Kidney failure: <15 mL/min/1.73sq m eGFR calculated using average adult body mass. Additional eGFR calculator available at: http://www.2can.[employer]/multiple_crcl_2012.htm Glucose [Mass/Vol] 76 mg/dL 70 - 99 mg/dL [facility] Interpretation and review of laboratory results Abnormal [facility] Sodium [Moles/Vol] 144 mmol/L 135 - 144 mmol/L [facility] Urea nitrogen (BldV) [Mass/Vol] 12 mg/dL 8 - 23 mg/dL [facility] Body Fluid Counton Type of Specimen .SHOULDER Normal [facility] Comment on above: Result Comment: RIGH T JOINT FLUID Performed By: #### F LCRYS, BFCNT #### [facility] [address] [place], [place] [phone] Accounts Supervisor: Chriss Townsend MD Body fluid cell counton 07-22 RBC, Fluid [id number] /mm3 [facility] Comment on above: The reference range and other method performance specifications have not been established for this body fluid. The test result must be integrated into the clinical context for interpretation. Specimen type Nom (Spec) .SHOULDER [facility] Comment on above: RIGHT JOINT FLUID WBC, Fluid 57878 /mm3 [facility] Comment on above: The reference range and other method performance specifications have not been established for this body fluid. The test result must be integrated into the clinical context for interpretation. [facility] C-Reactive Proteinon 022 CRP [Mass/Vol] 457.9 mg/L High 0.0-5.0 [facility] Comment on above: Performed By: #### L ACTIC #### [facility] [address] [place], [place] [phone] Accounts Supervisor: Chriss Townsend MD CRP [Mass/Vol] 457.9 mg/L High 0.0 - 5.0 mg/L [facility] Interpretation and review of laboratory results Abnormal [facility] CBC with Auto Differentialon 08-16-2021 Absolute Eos # 0.00 [facility] Absolute Immature Granulocyte 0.00 [facility] Absolute Lymph # 0.50 Low [facility] Absolute Beltrami # 0.20 [facility] Basophils (Bld) [#/Vol] 0.00 10*3/uL [facility] Basophils/100 WBC (Bld) 0 % 0 - 2 % [facility] Eosinophils/100 WBC (Bld) 0 % Low 1 - 4 % [facility] Hematocrit (Bld) [Volume fraction] 32.3 % Low 36.3 - 47.1 % [facility] Hemoglobin.gastrointe stinal spec 1 Ql (Stl) 9.9 g/dL Low 11.9 - 15.1 g/dL [facility] Immature granulocytes/100 WBC (Bld) 0 % 0 [facility] Interpretation and review of laboratory results Abnormal [facility] Lymphocytes/100 WBC (Bld) 5 % Low 24 - 44 % [facility] MCH (RBC) [Entitic mass] 30.0 pg 25.2 - 33.5 pg [facility] MCHC (RBC) [Mass/Vol] 30.7 g/dL 28.4 - 34.8 g/dL [facility] MCV (RBC) [Entitic vol] 97.9 fL 82.6 - 102.9 fL [facility] Monocytes/100 WBC (Bld) 2 % 1 - 7 % [facility] Morphology Demetrio (Bld) [Interp] ANISOCYTOSIS PRESENT [facility] Morphology Demetrio (Bld) [Interp] DOHLE BODIES PRESENT [facility] NRBC Automated 0.0 0.0 per 100 WBC [facility] Platelet distribution width (Bld) [Ratio] 15.1 % High 11.8 - 14.4 % [facility] Platelet mean volume (Bld) [Entitic vol] 9.8 fL 8.1 - 13.5 fL [facility] Platelets (Bld) [#/Vol] 130 10*3/uL Low [facility] RBC (Bld) [#/Vol] 3.30 10*6/uL Low 3.95 - 5.1 1 m/uL [facility] Segmented neutrophils/100 WBC (Bld) 93 % High 36 - 66 % [facility] Segs Absolute 9.20 High [facility] WBC (Bld) [#/Vol] 9.9 10*3/uL [facility] CBC with Diffon 08-16-2021 Abs. Basophil 0.00 k/uL Normal 0.0-0.2 [facility] Comment on above: Performed By: #### L ACTIC #### [address] [address] Accounts Supervisor: Chriss Townsend MD Abs.Imm.Granulocyte 0.00 k/uL Normal 0.00-0.30 [facility] Comment on above: Performed By: #### L ACTIC #### [address] [address] Accounts Supervisor: Chriss Townsend MD Abs.Neutrophil (Seg) 9.20 k/uL High 1.8-7.7 [facility] Comment on above: Performed By: #### L ACTIC #### [address] [address] Accounts Supervisor: Chriss Townsend MD Basophils/100 WBC (Bld) 0 % Normal 0-2 [facility] Comment on above: Performed By: #### L ACTIC #### [address] [address] Accounts Supervisor: Chriss Townsend MD Eosinophils (Bld) [#/Vol] 0.00 10*3/uL Normal 0.0-0.4 [facility] Comment on above: Performed By: #### L ACTIC #### [address] [address] Accounts Supervisor: Chriss Townsend MD Eosinophils/100 WBC (Bld) 0 % Low 1-4 [facility] Comment on above: Performed By: #### L ACTIC #### [address] [address] Accounts Supervisor: Chriss Townsend MD Immature granulocytes/100 WBC (Bld) 0 % Normal 0 [facility] Comment on above: Performed By: #### L ACTIC #### [address] [address] Accounts Supervisor: Chriss Townsend MD Lymphocytes (Bld) [#/Vol] 0.50 10*3/uL Low 1.0-4.8 [facility] Comment on above: Performed By: #### L ACTIC #### [address] [address] Accounts Supervisor: Chriss Townsend MD Lymphocytes/100 WBC (Bld) 5 % Low 24-44 [facility] Comment on above: Performed By: #### L ACTIC #### [address] [address] Accounts Supervisor: Chriss Townsend MD Monocytes (Bld) [#/Vol] 0.20 10*3/uL Normal 0.1-0.8 [facility] Comment on above: Performed By: #### L ACTIC #### [address] [address] Accounts Supervisor: Chriss Townsend MD Monocytes/100 WBC (Bld) 2 % Normal 1-7 [facility] Comment on above: Performed By: #### L ACTIC #### [address] [address] Accounts Supervisor: Chriss Townsend MD Morphology Demetrio (Bld) [Interp] ANISOCYTOSIS PRESENT Normal [facility] Comment on above: Result Comment: DOHL E BODIES PRESENT Performed By: #### L ACTIC #### [address] [address] Accounts Supervisor: Chriss Townsend MD Neutrophil (Seg) 93 % High 36-66 [facility] Comment on above: Performed By: #### L ACTIC #### [address] [address] Accounts Supervisor: Chriss Townsend MD Erythrocyte distribution width (RBC) [Ratio] 15.1 % High 11.8-14.4 [facility] Comment on above: Performed By: #### L ACTIC #### [address] [address] Accounts Supervisor: Chriss Townsend MD Hematocrit (Bld) [Volume fraction] 32.3 % Low 36.3-47.1 [facility] Comment on above: Performed By: #### L ACTIC #### [address] [address] Accounts Supervisor: Chriss Townsend MD Hemoglobin (Bld) [Mass/Vol] 9.9 g/dL Low 11.9-15.1 [facility] Comment on above: Performed By: #### L ACTIC #### [address] [address] Accounts Supervisor: Chriss Townsend MD MCH (RBC) [Entitic mass] 30.0 pg Normal 25.2-33.5 [facility] Comment on above: Performed By: #### L ACTIC #### [address] [address] Accounts Supervisor: Chriss Townsend MD MCHC (RBC) [Mass/Vol] 30.7 g/dL Normal 28.4-34.[address] [facility] Comment on above: Performed By: #### L ACTIC #### [address] [address] Accounts Supervisor: Chriss Townsend MD MCV (RBC) [Entitic vol] 97.9 fL Normal 82.6-102.9 [facility] Comment on above: Performed By: #### L ACTIC #### [address] [address] Accounts Supervisor: Chriss Townsend MD NRBC Automated 0.0 per 100 WBC Normal 0.0 [facility] Comment on above: Performed By: #### L ACTIC #### [address] [place] [address] Accounts Supervisor: Chriss Townsend MD Platelet mean volume (Bld) [Entitic vol] 9.8 fL Normal 8.1-13.5 [facility] Comment on above: Performed By: #### L ACTIC #### [facility] [address] [place] [address] Accounts Supervisor: Chriss Townsend MD Platelets (Bld) [#/Vol] 130 10*3/uL Low 138-453 [facility] Comment on above: Performed By: #### L ACTIC #### [address] [address] Accounts Supervisor: Chriss Townsend MD RBC (Bld) [#/Vol] 3.30 10*6/uL Low 3.95-5.11 [facility] Comment on above: Performed By: #### L ACTIC #### [address] [address] Accounts Supervisor: Chriss Townsend MD WBC (Bld) [#/Vol] 9.9 10*3/uL Normal 3.5-11.3 [facility] Comment on above: Performed By: #### L ACTIC #### [address] [address] Accounts Supervisor: Chriss Townsend MD Cell Count with Differential , Body Fluidon 08-16-2021 Lymphocytes, Body Fluid 2 % [employer] Comment on above: The reference range and other method performance specifications have not been established for this body fluid. The test result must be integrated into the clinical context for interpretation. Neutrophil Count, Fluid 93 % BON [employer] Comment on above: The reference range and other method performance specifications have not been established for this body fluid. The test result must be integrated into the clinical context for interpretation. Other Cells, Fluid MONOCYTES % BON [employer] Comment on above: The reference range and other method performance specifications have not been established for this body fluid. The test result must be integrated into the clinical context for interpretation. RBC, Fluid 56884 /mm3 [facility] Comment on above: The reference range and other method performance specifications have not been established for this body fluid. The test result must be integrated into the clinical context for interpretation. Specimen type Nom (Spec) .SYNOVIAL FLUID [facility] Comment on above: RIGHT SHOULDER WBC, Fluid 21081 /mm3 [facility] Comment on above: The reference range and other method performance specifications have not been established for this body fluid. The test result must be integrated into the clinical context for interpretation. [facility] Crystals, Body Fluidon 08-16 Crystals, Fluid Negative NEGATIVE [facility] Comment on above: NO CRYSTALS SEEN Specimen type Nom (Spec) .SYNOVIAL FLUID [facility] Comment on above: RIGHT SHOULDER [facility] Crystals, Fluidson 2 Crystals,Fluid Negative Normal NEG [facility] Comment on above: Result Comment: NO C RYSTALS SEEN Performed By: #### L ACTIC #### [facility] [place] [address] Accounts Supervisor: Chriss Townsend MD ECHO Complete 2D W Doppler W Coloron 08-16-2021 Transthoracic Echocardiography Report (TTE) Patient Name HEMCHAK Date of Study 08/16/2021 MIRIAM A Date of 1955 Gender Female Age 66 year(s) Race Room Number 3022 Height: 64 inch, 162.56 cm Corporate ID [id number] Weight: 220 pounds, 99.8 kg # Patient Acct [id number] BSA: 2.04 m^2 BMI: 37.76 kg/m^2 # MR # [id number] [employer] Evie Jordan Interpreting Physician Esteban Liu Fellow Referring Nurse Practitioner Interpreting Referring Physician Rory Perrin DO Fellow Type of Study TTE procedure:2D Echocardiogram, M-Mode, Doppler, Color Doppler. Procedure Date Date: 08/16/2021 Start: 02:51 PM Study Location: [facility] Technical Quality: Adequate visualization Indications:Rule out vegetation. [...] Height: 64 inch, 162.56 cm Corporate ID [id number] Weight: 220 pounds, 99.8 kg # Patient Acct [id number] BSA: 2.04 m^2 BMI: 37.76 kg/m^2 # MR # [id number] [employer] Operator Evie Jordan Interpreting Physician Esteban Liu Fellow Referring Nurse Practitioner Interpreting Referring Physician Rory Perrin DO Fellow Type of Study TTE procedure:2D Echocardiogram, M-Mode, Doppler, Color Doppler. Procedure Date Date: 08/16/2021 Start: 02:51 PM Study Location: [facility] Technical Quality: Adequate visualization Indications:Rule out vegetation. [...] Wall E' velocity:0.06 m/s Lateral Wall E/E':19.6 [employer] [facility] [employer] Work Phone: ECHO Complete 2D W Doppler W ColorOrdered By: Esteban Liu on 08-16-2021 [employer] [facility] Phone: Fluid Cell Count and Diffon 08-16-2021 Other Cells MONOCYTES Normal [facility] Comment on above: Result Comment: The reference range and other method performance specifications have not been established for this body fluid. The test result must be integrated into the clinical context for interpretation. Performed By: #### V NCT #### [facility] [address] [place] [address] Accounts Supervisor: Chriss Townsend MD Magnesiumon 08-16-2021 Magnesium [Mass/Vol] 2.0 mg/dL Normal 1.6-2.6 [facility] Comment on above: Performed By: #### L ACTIC #### [facility] [address] [place] [address] Accounts Supervisor: Chriss Townsend MD Magnesium [Mass/Vol] 2.0 mg/dL 1.6 - 2 .6 mg/dL [facility] OPERATIVE REPORTon OPERATIVE REPORT [facility] [address] [place] [address] OPERATIVE REPORT PATIENT NAME: MIRIAM GERMAN : 1955 MED REC NO: [id number] ROOM: [facility] ACCOUNT NO: [id number] ADMIT DATE: 08/14/2021 PROVIDER: Baltazar Anthony DO [...] is a 66-year-old female who presented to [place] several days ago with severe right shoulder [...] culture results. BALTAZAR ANTHONY DO [id number] Doc#: [id number] CC: Normal [facility] Vancomycin Level, Troughon 0 08-16-2021 Interpretation and review of laboratory results Abnormal [facility] Vancomycin Tr 8.3 ug/mL Low 10.0 - 20.0 ug/mL [facility] Comment on above: Higher trough serum vancomycin concentrations of 15-20 ug/mL are recommended for complicated infections such as bacteremia, endocarditis, osteomyelitis, meningitis, and hospital acquired pneumonia. [facility] Vancomycin Troughon 08-17-19 Vancomycin Trough 8.3 ug/mL Low 10.0-20.0 [facility] Comment on above: Result Comment: High er trough serum vancomycin concentrations of 15-20 ug/mL are recommended for complicated infections such as bacteremia, endocarditis, osteomyelitis, meningitis, and hospital acquired pneumonia. Performed By: #### V NCT #### [facility] [place] [address] Accounts Supervisor: Chriss Townsend MD XR ANKLE RIGHT (MIN 3 VIEWS) on 08-16-2021 Degenerative changes seen at the ankle with postoperative change and interval removal of the ORIF hardware. [facility] RIS CONSOLIDATED EXAMINATION: THREE XRAY VIEWS OF [...] earlier. Calcaneal spurring at the plantar aponeurosis. [facility] Collette Rodriguez MD - 08/16/2021 EXAMINATION: THREE [...] and interval removal of the ORIF hardware. [employer] Phone: Radiology Study observation (narrative) [employer] Phone: XR ANKLE RIGHT (MIN 3 VIEWS) Ordered By: Collette Contreras on 08-16-2021 [employer] Phone: Basic Metab w/rfx MGon 08-15 (cont.) Normal [facility] Comment on above: Result Comment: Aver age GFR for 60-69 years old: 85 mL/min/1.73sq m Chronic Kidney Disease: <60 mL/min/1.73sq m Kidney failure: <15 mL/min/1.73sq m eGFR calculated using average adult body mass. Additional eGFR calculator available at: http://www.2can.[employer]/multiple_crcl_2011.htm Performed By: #### C RP, CDP, SED #### [facility] [address] [place], [place] [id number] Accounts Supervisor: Chriss Townsend MD Anion gap [Moles/Vol] 12 mmol/L Normal 9-[address] [facility] Comment on above: Performed By: #### C RP, CDP, SED #### [facility] [address] [place] [address] Accounts Supervisor: Chriss Townsend MD Calcium [Mass/Vol] 9.2 mg/dL Normal 8.6-10.4 [facility] Comment on above: Performed By: #### C RP, CDP, SED #### [facility] [address] [place] [address] Accounts Supervisor: Chriss Townsend MD Chloride [Moles/Vol] 109 mmol/L High 98-107 [facility] Comment on above: Performed By: #### C RP, CDP, SED #### [facility] [address] [place] [address] Accounts Supervisor: Chriss Townsend MD CO2 [Moles/Vol] 20 mmol/L Normal 20-31 [facility] Comment on above: Performed By: #### C RP, CDP, SED #### [address] [address] Accounts Supervisor: Chriss Townsend MD Creatinine [Mass/Vol] 0.60 mg/dL Normal 0.50-0.[address] [facility] Comment on above: Performed By: #### C RP, CDP, SED #### [address] [address] Accounts Supervisor: Chriss Townsend MD GFR, Amer >60 Normal >60 [facility] Comment on above: Performed By: #### C RP, CDP, SED #### [facility] [address] [place] [address] Accounts Supervisor: Chriss Townsend MD GFR,non Amer >60 Normal >60 [facility] Comment on above: Performed By: #### C RP, CDP, SED #### [facility] [address] [place] [address] Accounts Supervisor: Chriss Townsend MD Glucose [Mass/Vol] 78 mg/dL Normal 70-99 [facility] Comment on above: Performed By: #### C RP, CDP, SED #### [facility] [address] [place] [address] Accounts Supervisor: Chriss Townsend MD Potassium [Moles/Vol] 4.1 mmol/L Normal 3.7-5.[address] [facility] Comment on above: Performed By: #### C RP, CDP, SED #### [facility] [address] [place] [address] Accounts Supervisor: Chriss Townsend MD Sodium [Moles/Vol] 141 mmol/L Normal 135-144 [facility] Comment on above: Performed By: #### C RP, CDP, SED #### [facility] [place] [address] Accounts Supervisor: Chriss Townsend MD Urea nitrogen [Mass/Vol] 12 mg/dL Normal 8-23 [facility] Comment on above: Performed By: #### C RP, CDP, SED #### [facility] [address] [place] [address] Accounts Supervisor: Chriss Townsend MD Basic Metabolic Panel w/ Ref sujatha to MGon 08-15-2021 Anion gap [Moles/Vol] 12 mmol/L 9 - 17 mmol/L [facility] [employer] Calcium [Mass/Vol] 9.2 mg/dL 8.6 - 10. 4 mg/dL [facility] Chloride [Moles/Vol] 109 mmol/L High 98 - 10 7 mmol/L [facility] [employer] CO2 [Moles/Vol] 20 mmol/L 20 - 31 mmol/L [facility] Creatinine [Mass/Vol] 0.6 mg/dL 0.50 - 0.90 mg/dL [facility] GFR >60 >60 mL/min [facility] [employer] GFR Non- >60 >60 mL/min [facility] [employer] GFR/1.73 sq M.predicted MDRD (S/P/Bld) [Vol rate/Area] [facility] Comment on above: Average GFR for 60-6 9 years old: 85 mL/min/1.73sq m Chronic Kidney Disease: <60 mL/min/1.73sq m Kidney failure: <15 mL/min/1.73sq m eGFR calculated using average adult body mass. Additional eGFR calculator available at: http://www.[employer]multiple_crcl_2011.htm Glucose [Mass/Vol] 78 mg/dL 70 - 99 mg/dL [facility] Interpretation and review of laboratory results Abnormal [facility] Potassium [Moles/Vol] 4.1 mmol/L 3.7 - 5.3 mmol/L [facility] Sodium [Moles/Vol] 141 mmol/L 135 - 144 mmol/L [facility] Urea nitrogen (BldV) [Mass/Vol] 12 mg/dL 8 - 23 mg/dL [facility] CBC with Auto Differentialon 08-15-2021 Absolute Eos # 0.00 [facility] Absolute Immature Granulocyte 0.00 [facility] Absolute Lymph # 0.85 Low [facility] Absolute Beltrami # 0.17 [facility] Basophils (Bld) [#/Vol] 0.00 10*3/uL [facility] Basophils/100 WBC (Bld) 0 % 0 - 2 % [facility] Eosinophils/100 WBC (Bld) 0 % Low 1 - 4 % [facility] Hematocrit (Bld) [Volume fraction] 37.5 % 36.3 - 47.1 % [facility] Hemoglobin.gastrointe stinal spec 1 Ql (Stl) 11.7 g/dL Low 11.9 - 15.1 g/dL [facility] Immature granulocytes/100 WBC (Bld) 0 % 0 [facility] Interpretation and review of laboratory results Abnormal [facility] Lymphocytes/100 WBC (Bld) 5 % Low 24 - 44 % [facility] MCH (RBC) [Entitic mass] 30.2 pg 25.2 - 33.5 pg [facility] MCHC (RBC) [Mass/Vol] 31.2 g/dL 28.4 - 34.8 g/dL [facility] MCV (RBC) [Entitic vol] 96.9 fL 82.6 - 102.9 fL [facility] Monocytes/100 WBC (Bld) 1 % 1 - 7 % [facility] Morphology Demetrio (Bld) [Interp] ANISOCYTOSIS PRESENT [facility] Morphology Demetrio (Bld) [Interp] INCREASED BANDS PRESENT [facility] NRBC Automated 0.0 0.0 per 100 WBC [facility] Platelet distribution width (Bld) [Ratio] 15.2 % High 11.8 - 14.4 % [facility] Platelet mean volume (Bld) [Entitic vol] 9.9 fL 8.1 - 13.5 fL [facility] Platelets (Bld) [#/Vol] 183 10*3/uL [facility] RBC (Bld) [#/Vol] 3.87 10*6/uL Low 3.95 - 5.1 1 m/uL [facility] Segmented neutrophils/100 WBC (Bld) 94 % High 36 - 66 % [facility] Segs Absolute 15.88 High [facility] WBC (Bld) [#/Vol] 16.9 10*3/uL High [facility] CBC with Diffon 08-15-2021 Abs. Basophil 0.00 k/uL Normal 0.0-0.2 [facility] Comment on above: Performed By: #### C MARC CDP, SED #### [facility] [address] [place] [address] Accounts Supervisor: Chriss Townsend MD Abs.Imm.Granulocyte 0.00 k/uL Normal 0.00-0.30 [facility] Comment on above: Performed By: #### C RP, CDP, SED #### [facility] [address] [place] [address] Accounts Supervisor: Chriss Townsend MD Abs.Neutrophil (Seg) 15.88 k/uL High 1.8-7.7 [facility] Comment on above: Performed By: #### C RP, CDP, SED #### [facility] [address] [place] [address] Accounts Supervisor: Chriss Townsend MD Basophils/100 WBC (Bld) 0 % Normal 0-2 [facility] Comment on above: Performed By: #### C RP, CDP, SED #### [facility] [address] [place] [address] Accounts Supervisor: Chriss Townsend MD Eosinophils (Bld) [#/Vol] 0.00 10*3/uL Normal 0.0-0.4 [facility] Comment on above: Performed By: #### C RP, CDP, SED #### [address] [address] Accounts Supervisor: Chriss Townsend MD Eosinophils/100 WBC (Bld) 0 % Low 1-4 [facility] Comment on above: Performed By: #### C RP, CDP, SED #### [address] [address] Accounts Supervisor: Chriss Townsend MD Immature granulocytes/100 WBC (Bld) 0 % Normal 0 [facility] Comment on above: Performed By: #### C RP, CDP, SED #### [address] [address] Accounts Supervisor: Chriss Townsend MD Lymphocytes (Bld) [#/Vol] 0.85 10*3/uL Low 1.0-4.8 [facility] Comment on above: Performed By: #### C RP, CDP, SED #### [facility] [address] [place] [address] Accounts Supervisor: Chriss Townsend MD Lymphocytes/100 WBC (Bld) 5 % Low 24-44 [facility] Comment on above: Performed By: #### C RP, CDP, SED #### [facility] [address] [place] [address] Accounts Supervisor: Chriss Townsend MD Monocytes (Bld) [#/Vol] 0.17 10*3/uL Normal 0.1-0.8 [facility] Comment on above: Performed By: #### C RP, CDP, SED #### [address] [address] Accounts Supervisor: Chriss Townsend MD Monocytes/100 WBC (Bld) 1 % Normal 1-7 [facility] Comment on above: Performed By: #### C RP, CDP, SED #### [facility] [address] [place] [address] Accounts Supervisor: Chriss Townsend MD Morphology Demetrio (Bld) [Interp] ANISOCYTOSIS PRESENT Normal [facility] Comment on above: Result Comment: INCR EASED BANDS PRESENT Performed By: #### C RP, CDP, SED #### [address] [address] Accounts Supervisor: Chriss Townsend MD Neutrophil (Seg) 94 % High 36-66 [facility] Comment on above: Performed By: #### C RP, CDP, SED #### [address] [address] Accounts Supervisor: Chriss Townsend MD Erythrocyte distribution width (RBC) [Ratio] 15.2 % High 11.8-14.4 [facility] Comment on above: Performed By: #### C RP, CDP, SED #### [facility] [address] [place] [address] Accounts Supervisor: Chriss Townsend MD Hematocrit (Bld) [Volume fraction] 37.5 % Normal 36.3-47.1 [facility] Comment on above: Performed By: #### C RP, CDP, SED #### [facility] [address] [place] [address] Accounts Supervisor: hCriss Townsend MD Hemoglobin (Bld) [Mass/Vol] 11.7 g/dL Low 11.9-15.1 [facility] Comment on above: Performed By: #### C RP, CDP, SED #### [address] [address] Accounts Supervisor: Chriss Townsend MD MCH (RBC) [Entitic mass] 30.2 pg Normal 25.2-33.5 [facility] Comment on above: Performed By: #### C RP, CDP, SED #### [place] [address] Accounts Supervisor: Chriss Townsend MD MCHC (RBC) [Mass/Vol] 31.2 g/dL Normal 28.4-34.[address] [facility] Comment on above: Performed By: #### C RP, CDP, SED #### [place] [address] Accounts Supervisor: Chriss Townsend MD MCV (RBC) [Entitic vol] 96.9 fL Normal 82.6-102.9 [facility] Comment on above: Performed By: #### C RP, CDP, SED #### [place] [address] Accounts Supervisor: Chriss Townsend MD NRBC Automated 0.0 per 100 WBC Normal 0.0 [facility] Comment on above: Performed By: #### C RP, CDP, SED #### [place] [address] Accounts Supervisor: Chriss Townsend MD Platelet mean volume (Bld) [Entitic vol] 9.9 fL Normal 8.1-13.5 [facility] Comment on above: Performed By: #### C RP, CDP, SED #### [place] [address] Accounts Supervisor: Chriss Townsend MD Platelets (Bld) [#/Vol] 183 10*3/uL Normal 138-453 [facility] Comment on above: Performed By: #### C RP, CDP, SED #### [facility] [address] [place] [address] Accounts Supervisor: Chriss Townsend MD RBC (Bld) [#/Vol] 3.87 10*6/uL Low 3.95-5.11 [facility] Comment on above: Performed By: #### C RP, CDP, SED #### [facility] [address] [place] [address] Accounts Supervisor: Chriss Townsend MD WBC (Bld) [#/Vol] 16.9 10*3/uL High 3.5-11.3 [facility] Comment on above: Performed By: #### C RP, CDP, SED #### [facility] [address] [place] [address] Accounts Supervisor: Chriss Townsend MD [facility] 08-15-2021 CK [Catalytic activity/Vol] 33 U/L 26 - 192 U/L [facility] CK [Catalytic activity/Vol] 42 U/L 26 - 192 U/L [facility] CK [Catalytic activity/Vol] 44 U/L 26 - 192 U/L [facility] CT CERVICAL SPINE WO CONTRAS Ton 08-15-2021 [...] Josh Jackson MD 08/15/21 Final result Normal [facility] No acute abnormality of the cervical spine. Degenerative disc disease of C4-C5, C5-C6 and C6-C7 disc, with osteoarthritis of the right facet joints. [facility] CON[facility] EXAMINATION: CT OF THE [...] There is no prevertebral soft tissue swelling. [facility] Josh Jackson MD - [...] with osteoarthritis of the right facet joints. [employer] Work Phone: CT CERVICAL SPINE WO CONTRAS TOrdered By: Josh Jackson on 08-15-2021 [employer] Work Phone: CT FEMUR LEFT W CONTRASTon [...] by: Mik Cantu 08/14/21 Final result Normal [facility] CT FEMUR RIGHT W CONTRASTon 08-15-2021 CT [...] by: Mik Cantu 08/15/21 Final result Normal [facility] CT HEAD WO CONTRASTon 2021 CT HEAD [...] Alessio Brady MD 08/15/21 Final result Normal [facility] No acute intracrania l abnormality. If there remains concern for meningitis contrast-enhanced MRI suggested [facility] EXAMINATION: CT OF THE [...] of the visualized skull or soft tissues. [facility] Alessio Brady MD - [...] remains concern for meningitis contrast-enhanced MRI suggested [employer] Phone: CT HEAD WO CONTRASTOrdered B y: Alessio Brady on 08-15-2021 [employer] Phone: CT HUMERUS RIGHT W CONTRASTo n [...] Cantu 08/15/21 Edited Result - FINAL Normal [facility] CT LUMBAR SPINE WO CONTRASTo n 08-15-2021 [...] Josh Jackson MD 08/15/21 Final result Normal [facility] Bilateral sacral win g insufficiency fractures. Degenerative changes as described above. [facility] EXAMINATION: CT OF THE [...] SOFT TISSUES/RETROPERITONEUM: No paraspinal mass is seen. [facility] Josh Jackson MD - [...] insufficiency fractures. Degenerative changes as described above. [facility] [employer] Work Phone: [facility] [employer] Work Phone: CT RADIUS ULNA RIGHT W CONTR Stephenie 08-15-2021 Radiology Study observation (narrative) REJI MADDOX [facility] [employer] Phone: CT SHOULDER RIGHT W CONTRAST on [...] Cantu 08/15/21 Edited Result - FINAL Normal [facility] CT THORACIC SPINE WO CONTRAS Ton 08-15-2021 [...] destructive lesion is seen. There is a nlof-kj-fvjornka compression fracture of the T4 vertebral body without compromise of the spinal canal. There are no acute fracture lines noted. DEGENERATIVE CHANGES: No gross spinal canal stenosis or bony neural foraminal narrowing of the thoracic spine. SOFT TISSUES: There are hypoventilatory changes in the posterior aspects of the lungs. IMPRESSION: Vlar-jo-avxlgtyr compression fracture of the T4 vertebral body, of undetermined age. Clinical correlation suggested. Hypoventilatory changes in the posterior aspects of the lungs. Interpreted by: Josh Jackson MD Signed by: Josh Jackson MD 08/15/21 Final result Normal [facility] Cjqg-xq-xwnohgdc compression fracture of the T4 vertebral body, [...] destructive lesion is seen. There is a fjhv-uf-botbxzwj compression fracture of the T4 vertebral body without compromise of the spinal canal. There are no acute fracture lines noted. DEGENERATIVE CHANGES: No gross spinal canal stenosis or bony neural foraminal narrowing of the thoracic spine. SOFT TISSUES: There are hypoventilatory changes in the posterior aspects of the lungs. [facility] RIS Josh Ochoa MD - 08/15/2021 EXAMINATION: [...] destructive lesion is seen. There is a glfo-rt-tdphtcjr compression fracture of the T4 vertebral body without compromise of the spinal canal. There are no acute fracture lines noted. DEGENERATIVE CHANGES: No gross spinal canal stenosis or bony neural foraminal narrowing of the thoracic spine. SOFT TISSUES: There are hypoventilatory changes in the posterior aspects of the lungs. IMPRESSION: Jbig-cx-lrdqlddw compression fracture of the T4 vertebral body, of undetermined age. Clinical correlation suggested. Hypoventilatory changes in the posterior aspects of the lungs. [facility] Work Phone: [facility]ITAL[facility]at[facility]3DMGAME Phone: CT TIBIA FIBULA LEFT W CONTR [...] by: Mik Cantu 08/14/21 Final result Normal [facility] CT TIBIA FIBULA RIGHT W CONT RUST 08-15-2021 CT TIBIA FIBULA RIGHT W CONTRAST [...] by: Mik Cantu 08/15/21 Final result Normal [facility] Cortisolon 08-15-2021 Cortisol 18.7 ug/dL High 2.7-18.4 [facility] Comment on above: Result Comment: Cortisol Reference Range: AM 6.0-18.4 PM 2.7-10.5 Performed By: #### C RP, CDP, SED #### [facility] [address] [place] [address] Accounts Supervisor: Chriss Townsend MD Cortisol Totalon 08-15-2021 Cortisol 18.7 ug/dL High 2.7 - 18.4 ug/dL [facility] Comment on above: Cortisol Reference Range: AM 6.0-18.4 PM 2.7-10.5 Interpretation and review of laboratory results Abnormal [facility] Creatine Kinaseon 08-15-2021 CK [Catalytic activity/Vol] 33 U/L Normal - [facility] Comment on above: Performed By: #### C OVRB #### [facility] [place] [address] Accounts Supervisor: Chriss Townsend MD CK [Catalytic activity/Vol] 42 U/L Normal - [facility] Comment on above: Performed By: #### C RP, CDP, SED #### [address] [address] Accounts Supervisor: Chriss Townsend MD CK [Catalytic activity/Vol] 44 U/L Normal 26-192 [facility] Comment on above: Performed By: #### C OVRB #### [address] [address] Accounts Supervisor: Chriss Townsend MD Crystals, Fluidson 2 Type of Specimen .SYNOVIAL FLUID Normal [facility] Comment on above: Result Comment: RIGH T SHOULDER Performed By: #### L ACTIC #### [address] [address] Accounts Supervisor: Chriss Townsend MD Performed By: #### V NCT #### [address] [address] Accounts Supervisor: Chriss Townsend MD Cult,Fluidon 08-15-2021 Cult,Fluid Specimen Description .SYNOVIAL FLUID .ASPIRATE RIGHT SHOULDER Culture DUE TO THE SPECIMEN TYPE, THE ORDER WAS CANCELED AND REORDERED. PLEASE REFER TO: ANAEROBIC, AEROBIC CULTURE Report Status FINAL 08/15/2021 Normal [facility] Comment on above: Performed By: #### L ACTIC #### [address] [address] Accounts Supervisor: Chriss Townsend MD Culture, Body Fluidon 2021 Bacteria identified Cx Nom (Unsp spec) DUE TO THE SPECIMEN TYPE, THE ORDER WAS CANCELED AND REORDERED. PLEASE REFER TO: ANAEROBIC, AEROBIC CULTURE [facility] Specimen Description .SYNOVIAL FLUID .ASPIRATE [facility] [employer] [facility] Fluid Cell Count and Diffon 08-15-2021 Lymphocytes/100 WBC (Bld) 2 % Normal [facility] Comment on above: Result Comment: The reference range and other method performance specifications have not been established for this body fluid. The test result must be integrated into the clinical context for interpretation. Performed By: #### V NCT #### [address] [address] Accounts Supervisor: Chriss Townsend MD Neutrophils/100 WBC (Bld) 93 % Normal [facility] Comment on above: Result Comment: The reference range and other method performance specifications have not been established for this body fluid. The test result must be integrated into the clinical context for interpretation. Performed By: #### V NCT #### [address] [address] Accounts Supervisor: Chriss Townsend MD RBC [id number] /mm3 Normal [facility] Comment on above: Result Comment: The reference range and other method performance specifications have not been established for this body fluid. The test result must be integrated into the clinical context for interpretation. Performed By: #### V NCT #### [address] [address] Accounts Supervisor: Chriss Townsend MD WBC [id number] /mm3 Normal [facility] Comment on above: Result Comment: The reference range and other method performance specifications have not been established for this body fluid. The test result must be integrated into the clinical context for interpretation. Performed By: #### V NCT #### [address] [address] Accounts Supervisor: Chriss Townsend MD Gram Stainon 08-15-2021 Microscopic observation Gram stain Nom (Unsp spec) Specimen Description .ASPIRATE .SYNOVIAL FLUID RIGHT SHOULDER Direct Exam DUPLICATE ORDER GRAM STAIN INCLUDED WITH AEROBIC, ANAEROBIC CULTURE Report Status FINAL 08/15/2021 Normal [facility] Comment on above: Performed By: #### L ACTIC #### [address] [address] Accounts Supervisor: Chriss Townsend MD Direct Exam DUPLICATE ORDER GRAM STAIN INCLUDED WITH AEROBIC, ANAEROBIC CULTURE [facility] Specimen Description .ASPIRATE .SYNOVIAL FLUID [facility] IR ARTHR/ASP/INJ MAJOR JT/BU RSA W USon [...] AP-230 CGY CM SQUARED Views 1 PROCEDURE: SPA DIRECTOR: Barrington Paniagua MD Informed consent was obtained [...] Barrington Paniagua MD 08/15/21 Final result Normal [facility] Successful ultrasoun d and fluoroscopic-guided right shoulder fluid collection aspiration, as above. [facility] CONSOL[facility] EXAMINATION: FLUOROSCOPIC AND ULTRASONIC GUIDED ASPIRATION RIGHT SHOULDER PERIARTICULAR FLUID COLLECTION 08/15/2021 11:54 am HISTORY: ORDERING SYSTEM PROVIDED HISTORY: right should asp. TECHNOLOGIST PROVIDED HISTORY: right should asp. Reason for Exam: Right shoulder aspiration FLUOROSCOPY DOSE AND TYPE OR TIME AND EXPOSURES: FLUOROSCOPY TIME-0.3 MINUTES D AP-230 CGY CM SQUARED Views 1 PROCEDURE: SPA DIRECTOR: Barrington Paniagua MD Informed consent was obtained [...] was removed and provided for further analysis. [facility] Barrington Paniagua MD - 08/15/2021 EXAMINATION: FLUOROSCOPIC AND ULTRASONIC GUIDED ASPIRATION RIGHT SHOULDER PERIARTICULAR FLUID COLLECTION 08/15/2021 11:54 am HISTORY: ORDERING SYSTEM PROVIDED HISTORY: right should asp. TECHNOLOGIST PROVIDED HISTORY: right should asp. Reason for Exam: Right shoulder aspiration FLUOROSCOPY DOSE AND TYPE OR TIME AND EXPOSURES: FLUOROSCOPY TIME-0.3 MINUTES D AP-230 CGY CM SQUARED Views 1 PROCEDURE: SPA DIRECTOR: Barrington Paniagua MD Informed consent was obtained [...] right shoulder fluid collection aspiration, as above. [employer] Phone: Radiology Study observation (narrative) [employer] Phone: IR ARTHR/ASP/INJ MAJOR JT/BU RSA W USOrdered By: Barrington Paniagua on 08-15-2021 [employer] Phone: IR LUMBAR PUNCTURE FOR DIAGN OSISon 08-15-2021 IR LUMBAR PUNCTURE FOR DIAGNOSIS EXAMINATION: ATTEMPTED FLUOROSCOPIC GUIDED LUMBAR PUNCTURE 08/15/2021 11:54 am HISTORY: ORDERING SYSTEM PROVIDED HISTORY: neck pain, elevated ESR, CRP and leukocytosis TECHNOLOGIST PROVIDED HISTORY: neck pain, elevated ESR, CRP and leukocytosis FLUOROSCOPY DOSE AND TYPE OR TIME AND EXPOSURES: 3.6 minutes fluoroscopy time D AP-6921 cGy cm squared PROCEDURE: SPA DIRECTOR: Barrington Paniagua MD Informed consent was obtained after the risks and benefits of the procedure were discussed with the patient and all questions were answered fully. Clyde protocol was observed and a standard timeout was performed. The patient was positioned the qdvm-otka-ntxx decubitus position, and the back was prepped [...] IMPRESSION: Unsuccessful fluoroscopic-guided lumbar puncture in the kzka-qasj-yrki decubitus position, as above. Interpreted by: Barrington Paniagua MD Signed by: Barrington Paniagua MD 08/15/21 Final result Normal [facility] Unsuccessful fluoroscopic-guided lumbar puncture in the ocmh-xkux-fxwo decubitus position, as above. [facility] EXAMINATION: ATTEMPTED FLUOROSCOPIC GUIDED LUMBAR PUNCTURE 08/15/2021 11:54 am HISTORY: ORDERING SYSTEM PROVIDED HISTORY: neck pain, elevated ESR, CRP and leukocytosis TECHNOLOGIST PROVIDED HISTORY: neck pain, elevated ESR, CRP and leukocytosis FLUOROSCOPY DOSE AND TYPE OR TIME AND EXPOSURES: 3.6 minutes fluoroscopy time D AP-6921 cGy cm squared PROCEDURE: SPA DIRECTOR: Barrington Paniagua MD Informed consent was obtained after the risks and benefits of the procedure were discussed with the patient and all questions were answered fully. Clyde protocol was observed and a standard timeout was performed. The patient was positioned the bojl-dadz-pmic decubitus position, and the back was prepped [...] renal collecting system mildly distended urinary bladder. [facility] Barrington Paniagua MD - 08/15/2021 EXAMINATION: ATTEMPTED FLUOROSCOPIC GUIDED LUMBAR PUNCTURE 08/15/2021 11:54 am HISTORY: ORDERING SYSTEM PROVIDED HISTORY: neck pain, elevated ESR, CRP and leukocytosis TECHNOLOGIST PROVIDED HISTORY: neck pain, elevated ESR, CRP and leukocytosis FLUOROSCOPY DOSE AND TYPE OR TIME AND EXPOSURES: 3.6 minutes fluoroscopy time D AP-6921 cGy cm squared PROCEDURE: SPA DIRECTOR: Barrington Paniagua MD Informed consent was obtained after the risks and benefits of the procedure were discussed with the patient and all questions were answered fully. Clyde protocol was observed and a standard timeout was performed. The patient was positioned the mkdo-hcof-hqfl decubitus position, and the back was prepped [...] IMPRESSION: Unsuccessful fluoroscopic-guided lumbar puncture in the nbld-nlzz-zbwf decubitus position, as above. [facility] [employer] Work Phone: [facility] [employer] Work Phone: Radiology Study observation (narrative) [facility] Work Phone: Lactate, Sepsison 08-15-2021 Lactic Acid,Sep Wbld 2.7 mmol/L High 0.5-1.9 [facility] Comment on above: Performed By: #### C OVRB #### [employer] [address] [place] [address] Accounts Supervisor: Chriss Townsend MD Lactic Acid,Sep Wbld 3.0 mmol/L High 0.5-1.9 [facility] Comment on above: Performed By: #### C OVRB #### [employer] [address] [place] [address] Accounts Supervisor: Chriss Townsend MD Interpretation and review of laboratory results Abnormal [facility] Lactic Acid, Sepsis, Whole Blood 2.7 mmol/L High 0.5 - 1.9 mmol/L [facility] Lactic Acidon 05-26-2022 Lactic Acid,Whole Bl 1.5 mmol/L Normal 0.7-2.1 [facility] Comment on above: Performed By: #### L ACTIC #### [employer] [facility] [place] [address] Accounts Supervisor: Chriss Townsend MD Lactic Acid, Plasmaon 2021 Lactic Acid, Whole Blood 1.5 mmol/L 0.7 - 2.1 mmol/L [facility] MRSA DNA Probe, Nasalon 07-22 MRSA, DNA, Nasal Negative NEGATIVE [facility] Comment on above: NEGATIVE: MRSA DNA n ot detected by nucleic acid amplification. Results should be used as an adjunct to nosocomial control efforts to identify patients needing enhanced precautions. The test is not intended to identify patients with staphylococcal infections. Results should not be used to guide or monitor treatment for MRSA infections. Specimen Description .NASAL SWAB [facility] MRSA, DNA, Nasalon MRSA, DNA, Nasal Negative Normal NEG [facility] Comment on above: Result Comment: NEGA TIVE: MRSA DNA not detected by nucleic acid amplification. Results should be used as an adjunct to nosocomial control efforts to identify patients needing enhanced precautions. The test is not intended to identify patients with staphylococcal infections. Results should not be used to guide or monitor treatment for MRSA infections. Performed By: #### M RSANO #### [employer] [address] [place] [id number] Accounts Supervisor: Chriss Townsend MD Specimen Description .NASAL SWAB Normal [facility] Comment on above: Performed By: #### M RSANO #### [employer] [facility] [place], [place] [phone] Accounts Supervisor: Chriss Townsend MD No Panel Informationon 08-15 Radiology Study observation (narrative) [facility] Work Phone: Radiology Study observation (narrative) [facility] Work Phone: [facility] No evidence of necrotizing fasciitis of the right lower extremity. Mild superficial subcutaneous fatty edema lateral to the right hip and intermittently laterally and posteriorly in the lower leg. Healing fractures at the medial aspect of the left body of pubis and mid right inferior pubic ramus. [facility] EXAMINATION: CT OF THE [...] unremarkable. Joint: Mild degenerative changes incidentally noted. [facility] Mik Cantu - 08/15/2021 [...] pubis and mid right inferior pubic ramus. [facility] Work Phone: [facility] Phone: Procalcitoninon 08-15-2021 Procalcitonin 3.47 ng/mL High <0.09 [facility] Comment on above: Result Comment: Suspected [...] entered into the Change in Procalcitonin Calculator (www.yascgf-lmz-prictvpmun.com) to determine the patient's Mortality Risk Prognosis In healthy neonates, plasma Procalcitonin (PCT) concentrations increase gradually after , reaching peak values at about 24 hours of age then decrease to normal values below 0.5 ng/mL by 48-72 hours of age. Performed By: #### C OV #### [employer] [address] [place] [address] Accounts Supervisor: Chriss Townsend MD VL DUP UPPER EXTREMITY VENOU S RIGHTon 08-15-2021 Result, Unknown Prov ider - 08/15/2021 [facility] Vascular Upper Extremities Veins Procedure Patient Name FRANCISCO J Date of Study 08/15/2021 MIRIAM Ragsdale Date of 1955 Gender Female Age 66 year(s) Race Room Number 3022 Corporate ID [id number] # Patient Acct [id number] # MR # [id number] [employer] Laura Tavares RVT, LEXUS Interpreting Erasmo Pham [...] !Phasic ! ! + -+ + + [employer] Phone: Radiology Study observation (narrative) [employer] Phone: VL DUP UPPER EXTREMITY VENOU S RIGHTOrdered By: Unknown Result on 08-15-2021 [employer] XR ANKLE RIGHT (MIN 3 VIEWS) on [...] Barbara Rivera DO 08/15/21 Final result Normal [facility] No acute bony abnorm ality or radiographic [...] calcaneal spur. Mild bimalleolar soft tissue swelling. [facility] Barbara Rivera DO - 08/15/2021 [...] Bimalleolar soft tissue swelling. Plantar calcaneal spur. [employer] Phone: Radiology Study observation (narrative) [employer] Phone: XR ANKLE RIGHT (MIN 3 VIEWS) Ordered By: Barbara Rivera on 08-15-2021 [employer] Phone: APTTon 08-14-2021 aPTT Coag (Bld) [Time] 19.6 s Low 20.5-30.5 [facility] Comment on above: Result Comment: IV Heparin Therapy Range: 48.6-77.8 No clot found in specimen, results questionable. Performed By: #### L ACTIC #### [employer] [address] [place] [address] Accounts Supervisor: Chriss Townsend MD aPTT Coag (Bld) [Time] 19.6 s Low [facility] Comment on above: IV Heparin Therapy Range: 48.6-77.8 No clot found in specimen, results questionable. Interpretation and review of laboratory results Abnormal [facility] C-Reactive Proteinon CRP [Mass/Vol] 258.6 mg/L High 0.0-5.0 [facility] Comment on above: Performed By: #### C RP, CDP, SED #### [facility] [address] [id number] Accounts Supervisor: Chriss Townsend MD CRP [Mass/Vol] 258.6 mg/L High 0.0 - 5.0 mg/L [facility] Interpretation and review of laboratory results Abnormal [facility] CRP [Mass/Vol] 249.9 mg/L High 0.0 - 5.0 mg/L [facility] CBC with Auto Differentialon 08-14-2021 Absolute Eos # 0.00 [facility] Absolute Immature Granulocyte 2.56 High [facility] Absolute Lymph # 1.40 [facility] Absolute Beltrami # 0.23 [facility] Basophils (Bld) [#/Vol] 0.00 10*3/uL [facility] Basophils/100 WBC (Bld) 0 % 0 - 2 % [facility] Eosinophils/100 WBC (Bld) 0 % Low 1 - 4 % [facility] Hematocrit (Bld) [Volume fraction] 40.4 % 36.3 - 47.1 % [facility] Hemoglobin.gastrointe stinal spec 1 Ql (Stl) 12.4 g/dL 11.9 - 15.1 g/dL [facility] Immature granulocytes/100 WBC (Bld) 11 % High 0 [facility] Interpretation and review of laboratory results Abnormal [facility] Lymphocytes/100 WBC (Bld) 6 % Low 24 - 44 % [facility] MCH (RBC) [Entitic mass] 29.9 pg 25.2 - 33.5 pg [facility] MCHC (RBC) [Mass/Vol] 30.7 g/dL 28.4 - 34.8 g/dL [facility] MCV (RBC) [Entitic vol] 97.3 fL 82.6 - 102.9 fL [facility] Monocytes/100 WBC (Bld) 1 % 1 - 7 % [facility] Morphology Demetrio (Bld) [Interp] ANISOCYTOSIS PRESENT [facility] NRBC Automated 0.0 0.0 per 100 WBC [facility] Platelet distribution width (Bld) [Ratio] 15.0 % High 11.8 - 14.4 % [facility] Platelets (Bld) [#/Vol] See Reflexed IPF Result [facility] RBC (Bld) [#/Vol] 4.15 10*6/uL 3.95 - 5.1 1 m/uL [facility] Segmented neutrophils/100 WBC (Bld) 82 % High 36 - 66 % [facility] Segs Absolute 19.11 High [facility] WBC (Bld) [#/Vol] 23.3 10*3/uL High [facility] Absolute Eos # <0.03 [facility] Absolute Immature Granulocyte 0.20 [facility] Absolute Lymph # 0.88 Low [facility] Absolute Beltrami # 0.50 [facility] Basophils (Bld) [#/Vol] 0.03 10*3/uL [facility] Basophils/100 WBC (Bld) 0 % 0 - 2 % [facility] Eosinophils/100 WBC (Bld) 0 % Low 1 - 4 % [facility] Hematocrit (Bld) [Volume fraction] 43.8 % 36.3 - 47.1 % [facility] Hemoglobin.gastrointe stinal spec 1 Ql (Stl) 13.5 g/dL 11.9 - 15.1 g/dL [facility] Immature granulocytes/100 WBC (Bld) 1 % High 0 [facility] Interpretation and review of laboratory results Abnormal [facility] Lymphocytes/100 WBC (Bld) 5 % Low 24 - 43 % [facility] MCH (RBC) [Entitic mass] 29.9 pg 25.2 - 33.5 pg [facility] MCHC (RBC) [Mass/Vol] 30.8 g/dL 28.4 - 34.8 g/dL [facility] MCV (RBC) [Entitic vol] 96.9 fL 82.6 - 102.9 fL [facility] Monocytes/100 WBC (Bld) 3 % 3 - 12 % [facility] NRBC Automated 0.0 0.0 per 100 WBC [facility] Platelet distribution width (Bld) [Ratio] 14.8 % High 11.8 - 14.4 % [facility] Platelet mean volume (Bld) [Entitic vol] 9.5 fL 8.1 - 13.5 fL [facility] Platelets (Bld) [#/Vol] 259 10*3/uL [facility] RBC (Bld) [#/Vol] 4.52 10*6/uL 3.95 - 5.1 1 m/uL [facility] Segmented neutrophils/100 WBC (Bld) 91 % High 36 - 65 % [facility] Segs Absolute 15.50 High [facility] WBC (Bld) [#/Vol] 17.1 10*3/uL High [facility] CBC with Diffon 08-14-2021 Abs. Basophil 0.00 k/uL Normal 0.0-0.2 [facility] Comment on above: Performed By: #### C SEBASTIAN TRAN, SED #### [employer] [address] [place], [place] [phone] Accounts Supervisor: Chriss Townsend MD Abs.Imm.Granulocyte 2.56 k/uL High 0.00-0.30 [facility] Comment on above: Performed By: #### C SEBASTIAN TRAN, SED #### [employer] [address] [place], [place] [phone] Accounts Supervisor: Chriss Townsend MD Abs.Neutrophil (Seg) 19.11 k/uL High 1.8-7.7 [facility] Comment on above: Performed By: #### C SEBASTIAN TRAN, SED #### [address] [address] Accounts Supervisor: Chriss Townsend MD Basophils/100 WBC (Bld) 0 % Normal 0-2 [facility] Comment on above: Performed By: #### C RP, CDP, SED #### [facility] [address] [place] [address] Accounts Supervisor: Chriss Townsend MD Eosinophils (Bld) [#/Vol] 0.00 10*3/uL Normal 0.0-0.4 [facility] Comment on above: Performed By: #### C RP, CDP, SED #### [address] [address] Accounts Supervisor: Chriss Townsend MD Eosinophils/100 WBC (Bld) 0 % Low 1-4 [facility] Comment on above: Performed By: #### C RP, CDP, SED #### [address] [address] Accounts Supervisor: Chriss Townsend MD Immature granulocytes/100 WBC (Bld) 11 % High 0 [facility] Comment on above: Performed By: #### C RP, CDP, SED #### [address] [address] Accounts Supervisor: Chriss Townsend MD Lymphocytes (Bld) [#/Vol] 1.40 10*3/uL Normal 1.0-4.8 [facility] Comment on above: Performed By: #### C RP, CDP, SED #### [address] [address] Accounts Supervisor: Chriss Townsend MD Lymphocytes/100 WBC (Bld) 6 % Low 24-44 [facility] Comment on above: Performed By: #### C RP, CDP, SED #### [facility] [address] [place] [address] Accounts Supervisor: Chriss Townsend MD Monocytes (Bld) [#/Vol] 0.23 10*3/uL Normal 0.1-0.8 [facility] Comment on above: Performed By: #### C RP, CDP, SED #### [address] [address] Accounts Supervisor: Chriss Townsend MD Monocytes/100 WBC (Bld) 1 % Normal 1-7 [facility] Comment on above: Performed By: #### C RP, CDP, SED #### [address] [address] Accounts Supervisor: Chriss Townsend MD Morphology Demetrio (Bld) [Interp] ANISOCYTOSIS PRESENT Normal [facility] Comment on above: Performed By: #### C RP, CDP, SED #### [address] [address] Accounts Supervisor: Chriss Townsend MD Neutrophil (Seg) 82 % High 36-66 [facility] Comment on above: Performed By: #### C RP, CDP, SED #### [address] [address] Accounts Supervisor: Chriss Townsend MD Erythrocyte distribution width (RBC) [Ratio] 15.0 % High 11.8-14.4 [facility] Comment on above: Performed By: #### C RP, CDP, SED #### [facility] [address] [place] [address] Accounts Supervisor: Chriss Townsend MD Hematocrit (Bld) [Volume fraction] 40.4 % Normal 36.3-47.1 [facility] Comment on above: Performed By: #### C RP, CDP, SED #### [facility] [address] [place] [address] Accounts Supervisor: Chriss Townsend MD Hemoglobin (Bld) [Mass/Vol] 12.4 g/dL Normal 11.9-15.1 [facility] Comment on above: Performed By: #### C RP, CDP, SED #### [address] [address] Accounts Supervisor: Chriss Townsend MD MCH (RBC) [Entitic mass] 29.9 pg Normal 25.2-33.5 [facility] Comment on above: Performed By: #### C RP, CDP, SED #### [address] [address] Accounts Supervisor: Chriss Townsend MD MCHC (RBC) [Mass/Vol] 30.7 g/dL Normal 28.4-34.[address] [facility] Comment on above: Performed By: #### C RP, CDP, SED #### [place] [address] Accounts Supervisor: Chriss Townsend MD MCV (RBC) [Entitic vol] 97.3 fL Normal 82.6-102.9 [facility] Comment on above: Performed By: #### C RP, CDP, SED #### [address] [address] Accounts Supervisor: Chriss Townsend MD NRBC Automated 0.0 per 100 WBC Normal 0.0 [facility] Comment on above: Performed By: #### C RP, CDP, SED #### [place] [address] Accounts Supervisor: Chriss Townsend MD Platelet Count See Reflexed IPF Result Normal 138-453 [facility] Comment on above: Performed By: #### C RP, CDP, SED #### [place] [address] Accounts Supervisor: Chriss Townsend MD RBC (Bld) [#/Vol] 4.15 10*6/uL Normal 3.95-5.11 [facility] Comment on above: Performed By: #### C RP, CDP, SED #### [facility] [address] [place], [place] [phone] Accounts Supervisor: Chriss Townsend MD WBC (Bld) [#/Vol] 23.3 10*3/uL High 3.5-11.3 [facility] Comment on above: Performed By: #### C RP, CDP, SED #### [facility] [address] [place], [place] [phone] Accounts Supervisor: Chriss Townsend MD CKon 08-14-2021 CK [Catalytic activity/Vol] 46 U/L 26 - 192 U/L [facility] COVID-19, Rapidon 08-14-2021 SARS-CoV-2 (COVID-19) RNA GLYNN+probe Ql (Unsp spec) Not detected Not Detected [facility] Comment on above: Rapid NAAT: The [...] management decisions. Fact sheet for Healthcare Providers: https://www.fda.gov/media/576155/download Fact sheet for Patients: https://www.fda.gov/media/850520/download Methodology: Isothermal Nucleic Acid Amplification Specimen Description .NASOPHARYNGEAL SWAB [facility] Comp Metabolic Pr/rfx MGon 0 08-14-2021 AST [Catalytic activity/Vol] 40 U/L High <32 [facility] Comment on above: Performed By: #### C RP, CDP, SED #### [employer] [address] [place] [address] Accounts Supervisor: Chriss Townsend MD (cont.) [facility] Comment on above: Result Comment: Aver age GFR for 60-69 years old: 85 mL/min/1.73sq m Chronic Kidney Disease: <60 mL/min/1.73sq m Kidney failure: <15 mL/min/1.73sq m eGFR calculated using average adult body mass. Additional eGFR calculator available at: http://www.[employer]multiple_crcl_2012.htm Performed By: #### C RP, CDP, SED #### [facility] [address] [place] [address] Accounts Supervisor: Chriss Townsend MD Albumin [Mass/Vol] 2.6 g/dL Low 3.5-5.2 [facility] Comment on above: Performed By: #### C RP, CDP, SED #### [address] [address] Accounts Supervisor: Chriss Townsend MD Albumin/Glob Ratio 0.8 Low 1.0-2.5 [facility] Comment on above: Performed By: #### C RP, CDP, SED #### [facility] [address] [place] [address] Accounts Supervisor: Chriss Twonsend MD Alkaline Phos 165 U/L High 35-104 [facility] Comment on above: Performed By: #### C RP, CDP, SED #### [facility] [address] [place] [address]5705 Accounts Supervisor: Chriss Townsend MD ALT [Catalytic activity/Vol] 38 U/L High 5-33 [facility] Comment on above: Performed By: #### C RP, CDP, SED #### [facility] [address] [place] [address] Accounts Supervisor: Chriss Townsend MD Anion gap [Moles/Vol] 14 mmol/L Normal 9-[address] [facility] Comment on above: Performed By: #### C RP, CDP, SED #### [facility] [address] [place] [address]19 Accounts Supervisor: Chriss Townsend MD Bilirubin [Mass/Vol] 0.60 mg/dL Normal 0.3-1.2 [facility] Comment on above: Performed By: #### C RP, CDP, SED #### [facility] [address] [place] [address]373 Accounts Supervisor: Chriss Townsend MD Calcium [Mass/Vol] 9.3 mg/dL Normal 8.6-10.4 [facility] Comment on above: Performed By: #### C RP, CDP, SED #### [address] [address] Accounts Supervisor: Chriss Townsend MD Chloride [Moles/Vol] 104 mmol/L Normal 98-107 [facility] Comment on above: Performed By: #### C RP, CDP, SED #### [address] [address] Accounts Supervisor: Chriss Townsend MD CO2 [Moles/Vol] 22 mmol/L Normal 20-31 [facility] Comment on above: Performed By: #### C RP, CDP, SED #### [facility] [address] [place] [address]1398 Accounts Supervisor: Chriss Townsend MD Creatinine [Mass/Vol] 0.62 mg/dL Normal 0.50-0.[address] [facility] Comment on above: Performed By: #### C RP, CDP, SED #### [facility] [address] [place] [address]127 Accounts Supervisor: Chriss Townsend MD GFR, Amer >60 Normal >60 [facility] Comment on above: Performed By: #### C RP, CDP, SED #### [facility] [address] [place] [address]287 Accounts Supervisor: Chriss Townsend MD GFR,non Amer >60 Normal >60 [facility] Comment on above: Performed By: #### C RP, CDP, SED #### [facility] [address] [place] [address] Accounts Supervisor: Chriss Townsend MD Glucose [Mass/Vol] 94 mg/dL Normal 70-99 [facility] Comment on above: Performed By: #### C RP, CDP, SED #### [facility] [address] [place] [address] Accounts Supervisor: Chriss Townsend MD Potassium [Moles/Vol] 4.1 mmol/L Normal 3.7-5.[address] [facility] Comment on above: Performed By: #### C RP, CDP, SED #### [facility] [address] [place] [address] Accounts Supervisor: Chriss Townsend MD Protein [Mass/Vol] 5.8 g/dL Low 6.4-8.3 [facility] Comment on above: Performed By: #### C RP, CDP, SED #### [facility] [address] [place] [address] Accounts Supervisor: Chriss Townsend MD Sodium [Moles/Vol] 140 mmol/L Normal 135-144 [facility] Comment on above: Performed By: #### C RP, CDP, SED #### [facility] [address] [place] [address]8588 Accounts Supervisor: Chriss Townsend MD Urea nitrogen [Mass/Vol] 11 mg/dL Normal 8-23 [facility] Comment on above: Performed By: #### C RP, CDP, SED #### [facility] [address] [place] [address]45 Accounts Supervisor: Chriss Townsend MD Comprehensive Metabolic Pane markell 08-14-2021 Albumin [Mass/Vol] 3.6 g/dL 3.5 - 5.2 g/dL [facility] Albumin/Globulin [Mass ratio] 1.2 {ratio} [facility] ALP (Bld) [Catalytic activity/Vol] 187 U/L High 35 - 104 U/L [facility] ALT [Catalytic activity/Vol] 31 U/L 5 - 33 U/L [facility] Anion gap [Moles/Vol] 12 mmol/L 9 - 17 mmol/L [facility] AST [Catalytic activity/Vol] 31 U/L <32 [facility] Bilirubin [Mass/Vol] 0.64 mg/dL 0.3 - 1 .2 mg/dL [facility] Calcium [Mass/Vol] 10.0 mg/dL 8.6 - 10. 4 mg/dL [facility] Chloride [Moles/Vol] 101 mmol/L 98 - 10 7 mmol/L [facility] CO2 [Moles/Vol] 27 mmol/L 20 - 31 mmol/L [facility] Creatinine [Mass/Vol] 0.55 mg/dL 0.50 - 0.90 mg/dL [facility] Free PSA/Total PSA [Mass fraction] 6.7 g/dL 6.4 - 8.3 g/dL [facility] GFR >60 >60 mL/min [facility] GFR Non- >60 >60 mL/min [facility] Glucose [Mass/Vol] 113 mg/dL High 70 - 99 mg/dL [facility] Potassium [Moles/Vol] 4.3 mmol/L 3.7 - 5.3 mmol/L [facility] Sodium [Moles/Vol] 140 mmol/L 135 - 144 mmol/L [facility] Urea nitrogen (BldV) [Mass/Vol] 12 mg/dL 8 - 23 mg/dL [facility] Urea nitrogen/Creatinine (Bld) [Mass ratio] 22 High [facility] Comprehensive Metabolic Pane l w/ Reflex to MGon 08-14-2021 Albumin [Mass/Vol] 2.6 g/dL Low 3.5 - 5.2 g/dL [facility] Albumin/Globulin [Mass ratio] 0.8 {ratio} Low [facility] ALP (Bld) [Catalytic activity/Vol] 165 U/L High 35 - 104 U/L [facility] ALT [Catalytic activity/Vol] 38 U/L High 5 - 33 U/L [facility] Anion gap [Moles/Vol] 14 mmol/L 9 - 17 mmol/L [facility] AST [Catalytic activity/Vol] 40 U/L High <32 [facility] Bilirubin [Mass/Vol] 0.60 mg/dL 0.3 - 1 .2 mg/dL [facility] Calcium [Mass/Vol] 9.3 mg/dL 8.6 - 10. 4 mg/dL [facility] Chloride [Moles/Vol] 104 mmol/L 98 - 10 7 mmol/L [facility] CO2 [Moles/Vol] 22 mmol/L 20 - 31 mmol/L [facility] Creatinine [Mass/Vol] 0.62 mg/dL 0.50 - 0.90 mg/dL [facility] Free PSA/Total PSA [Mass fraction] 5.8 g/dL Low 6.4 - 8.3 g/dL [facility] GFR >60 >60 mL/min [facility] GFR Non- >60 >60 mL/min [facility] GFR/1.73 sq M.predicted MDRD (S/P/Bld) [Vol rate/Area] [facility] Comment on above: Average GFR for 60-6 9 years old: 85 mL/min/1.73sq m Chronic Kidney Disease: <60 mL/min/1.73sq m Kidney failure: <15 mL/min/1.73sq m eGFR calculated using average adult body mass. Additional eGFR calculator available at: http://www.[employer]multiple_crcl_2012.htm Glucose [Mass/Vol] 94 mg/dL 70 - 99 mg/dL [facility] Interpretation and review of laboratory results Abnormal [facility] Potassium [Moles/Vol] 4.1 mmol/L 3.7 - 5.3 mmol/L [employer] Sodium [Moles/Vol] 140 mmol/L 135 - 144 mmol/L [facility] Urea nitrogen (BldV) [Mass/Vol] 11 mg/dL 8 - 23 mg/dL [employer] [facility] [employer] EKG 12 LeadOrdered By: Ravi Henry on 08-14-2021 Atrial Rate 121 BPM [facility] Work Phone: P [place] 46 degrees [employer] [facility] Work Phone: P-R Interval 120 ms [employer] [facility] Work Phone: Q-T Interval 304 ms [facility] Work Phone: QRS Duration 66 ms [employer] [facility] Work Phone: QTc Calculation (Bazett) 431 ms [employer] Work Phone: R [place] 16 degrees [employer] [facility] Work Phone: T [place] 33 degrees [employer] Work Phone: Ventricular Rate 121 BPM [facility] [employer] Work Phone: [employer] Work Phone: EKG 12 Leadon 08-14-2021 Sinus tachycardia Possible Left atrial enlargement Cannot rule out Inferior infarct , age undetermined Abnormal ECG Confirmed by KIRA HENRY ([id number]) on 08/14/2021 12:32:57 PM [facility] RADIOLOG[facility] Kira Henry MD - 08/14/2021 Sinus tachycardia Possible Left atrial enlargement Cannot rule out Inferior infarct , age undetermined Abnormal ECG Confirmed by KIRA HENRY ([id number]) on 08/14/2021 12:32:57 PM [employer] Work Phone: Immature Platelet Fractionon 08-14-2021 Platelet, Fluorescence 243 [employer] Platelet, Immature Fraction 2.2 % 1.1 - 10.3 % [facility] Laboratory - Chemistry and C hemistry - challengeon 08-14-2021 GFR/1.73 sq M.predicted MDRD (S/P/Bld) [Vol rate/Area] [facility] Comment on above: Average GFR for 60-6 9 years old: 85 mL/min/1.73sq m Chronic Kidney Disease: <60 mL/min/1.73sq m Kidney failure: <15 mL/min/1.73sq m eGFR calculated using average adult body mass. Additional eGFR calculator available at: http://www.[employer]multiple_crcl_2012.htm Stage 1: Some kidney damage normal GFR Stage 2: Mild kidney damage GFR 60-89 Stage 3: Moderate kidney damage GFR 30-59 Stage 4: Severe kidney damage GFR 15-29 Stage 5: Severe kidney damage GFR <15 ESRD - chronic treatment by dialysis or transplant Lactate, Sepsison 08-14-2021 Interpretation and review of laboratory results Abnormal [facility] Lactic Acid, Sepsis, Whole Blood 3.0 mmol/L High 0.5 - 1.9 mmol/L [facility] Lactic Acidon 08-14-2021 Lactic Acid,Whole Bl 2.8 mmol/L High 0.7-2.1 [facility] Comment on above: Performed By: #### C RP, CDP, SED #### [facility] [place] [id number] Accounts Supervisor: Chriss Townsend MD Interpretation and review of laboratory results Abnormal [facility] Lactic Acid, Whole Blood 2.8 mmol/L High 0.7 - 2.1 mmol/L [facility] Lactate [Moles/Vol] 1.8 mmol/L 0.5 - 2. 2 mmol/L [facility] Lipaseon 08-14-2021 Lipase [Catalytic activity/Vol] 25 U/L 13 - 60 U/L [facility] Microscopic Urinalysison - [facility] [employer] Bacteria, UA 3+ Abnormal None [facility] Epithelial Cells UA 2 TO 5 [facility] Interpretation and review of laboratory results Abnormal [facility] RBC, UA 5 TO 10 [facility] WBC, UA 2 TO 5 [facility] No Panel Informationon 08-14 No evidence of necrotizing fasciitis throughout the visualized left lower extremity. Healing fracture evident at the body of the left pubis and mid right inferior pubic ramus. Questionable very subtle nondisplaced fracture at the anterior aspect of the left acetabulum. This may represent artifact. [facility] EXAMINATION: CT OF THE [...] hindfoot. Joint: Mild degenerative changes incidentally noted. [facility] Mik Cantu - 08/14/2021 [...] the left acetabulum. This may represent artifact. [employer] Phone: [employer] Phone: Addendum by Mik Cantu on 08/15/2021 12:34 AM EDT ADDENDUM: Critical results were called by Dr. Mik Cantu to Dr. Mcelroy on 08/15/2021 at 00:07. [employer] Phone: Soft tissue air identified within upper [...] the lateral aspect of the upper arm. [facility] EXAMINATION: CT OF THE [...] No significant degenerative changes. No osseous erosions. [facility] Mik Cantu - 08/14/2021 [...] the lateral aspect of the upper arm. [facility] Work Phone: Radiology Study observation (narrative) [facility] Work Phone: Radiology Study observation (narrative) [facility] [employer] Work Phone: [facility] [employer] Radiology Study observation (narrative) [facility] [employer] Work Phone: Interpretation and review of laboratory results Abnormal [facility] [employer] [facility] [employer] No Panel InformationOrdered By: Mik Cantu on 08-14-2021 [facility] Phone: PLT, Immature Fract.on 08-14 Platelet, Fluoresc. 243 k/uL Normal 138-453 [facility] Comment on above: Performed By: #### C RP, CDP, SED #### [facility] [facility] [place] [address] Accounts Supervisor: Chriss Townsend MD PLT, Immature Fract. 2.2 % Normal 1.1-10.3 [facility] Comment on above: Performed By: #### C RP, CDP, SED #### [facility] [employer] [address] [place] [address] Accounts Supervisor: Chriss Townsend MD PTon 0 INR Coag (PPP) [Relative time] 1.0 {INR} Normal [facility] Comment on above: Result Comment: Therapeutic Range: Moderate Anticoagulant Intensity: INR = 2.0-3.0 High Anticoagulant Intensity: INR = 2.5-3.5 Performed By: #### L ACTIC #### [facility] [address] [place] [address] 40797 Accounts Supervisor: Chriss Townsend MD PT Coag (PPP) [Time] 10.4 s Normal 9.1-12.3 [facility] Comment on above: Performed By: #### L ACTIC #### [facility] [address] [place] [address] 24388 Accounts Supervisor: Chriss Townsend MD Procalcitoninon 6 Interpretation and review of laboratory results Abnormal [facility] Procalcitonin 3.47 ng/mL High <0.09 [facility] Comment on above: Suspected Sepsis: <0.50 [...] entered into the Change in Procalcitonin Calculator (www.grzrdy-ztc-crhbosndyp.[employer]) to determine the patient's Mortality Risk Prognosis In healthy neonates, plasma Procalcitonin (PCT) concentrations increase gradually after , reaching peak values at about 24 hours of age then decrease to normal values below 0.5 ng/mL by 48-72 hours of age. [facility] Protime-INRon 08-14-2021 INR Coag (Bld) [Relative time] 1.0 {INR} [facility] Comment on above: Therapeutic Range: Moderate Anticoagulant Intensity: INR = 2.0-3.0 High Anticoagulant Intensity: INR = 2.5-3.5 PT Coag (PPP) [Time] 10.4 s [facility] INR Coag (Bld) [Relative time] 1.2 {INR} [facility] Comment on above: Non-therapeutic Range: INR = 0.9-1.2 Therapeutic Range: Moderate Anticoagulant Intensity: INR = 2.0-3.0 High Anticoagulant Intensity: INR = 2.5-3.5 Interpretation and review of laboratory results Abnormal [facility] PT Coag (PPP) [Time] 14.6 s High [facility] [id number] 08-14-2021 SARS-CoV-2 (COVID-19) RNA GLYNN+probe Ql (Unsp spec) Not detected Normal [facility] Comment on above: Result Comment: Rapid [...] management decisions. Fact sheet for Healthcare Providers: https://www.fda.gov/media/208212/download Fact sheet for Patients: https://www.fda.gov/media/046569/download Methodology: Isothermal Nucleic Acid Amplification Performed By: #### C OVRB #### [facility] [address] [place] [address] Accounts Supervisor: Chriss Townsend MD SPECIMEN REJECTIONon Ordered Test PT PTT [facility] [employer] Specimen source Nom (Unsp spec) .BLOOD [facility] Sedimentation Rateon Sedimentation Rate 84 mm/Hr High 0-30 [facility] Comment on above: Performed By: #### C RP, CDP, SED #### [facility] [address] [place] [address] Accounts Supervisor: Chriss Townsend MD Interpretation and review of laboratory results Abnormal [facility] [employer] Sed Rate 84 High [facility] Interpretation and review of laboratory results Abnormal [facility] Sed Rate 66 High [facility] Specimen Rejectionon Source of sample .BLOOD Normal [facility] Comment on above: Performed By: #### C RP, CDP, SED #### [facility] [employer] [address] [place] [address] Accounts Supervisor: Chriss Townsend MD Test ordered PT PTT Normal [facility] Comment on above: Performed By: #### C RP, CDP, SED #### [employer] [address] [place] [address] Accounts Supervisor: Chriss Townsend MD Reason for Rejection Unable to perform testing: Specimen clotted. Normal [facility] Comment on above: Performed By: #### C RP, CDP, SED #### [facility] [employer] [employer] [address] [place] [address] [id number] Accounts Supervisor: Chriss Townsend MD Troponinon 08-14-2021 Troponin, High Sensitivity 7 ng/L 0 - 14 ng/L [facility] Comment on above: High Sensitivity Troponin values cannot be compared with other Troponin methodologies. Patients with high levels of Biotin oral intake (i.e >5mg/day) may have falsely decreased Troponin levels. Samples collected within 8 hours of biotin intake may require additional information for diagnosis. [facility] Urinalysis with Reflex to Cu ltureon 08-14-2021 Bilirubin Urine Negative NEGATIVE [facility] Color, UA Yellow Yellow [facility] Glucose, Ur Negative NEGATIVE [facility] Interpretation and review of laboratory results Abnormal [facility] Ketones Ql (U) Negative NEGATIVE [facility] Leukocyte esterase Test strip Ql (U) Negative NEGATIVE [facility] Nitrite, Urine Positive Abnormal NEGATIVE [facility] pH, UA 6.5 [facility] Protein, UA Negative NEGATIVE [facility] Specific [place], UA 1.010 [facility] Turbidity UA Clear Clear [facility] Urine Hgb 1+ Abnormal NEGATIVE [facility] Urobilinogen, Urine Normal Normal [facility] XR PELVIS (MIN 3 VIEWS)on XR PELVIS [...] Bhumika Clark MD 08/14/21 Final result Normal [facility] Nondisplaced fractur e of the left superior and inferior pubic rami at the pubic symphysis with ongoing healing. Nondisplaced right superior and inferior pubic rami fractures with ongoing healing. Nondisplaced bilateral sacral ala fractures with ongoing healing. [facility] EXAMINATION: ONE XRAY VIEW [...] urinary bladder and partially obscures oblique views.. [facility] Bhumika Clark MD - [...] bilateral sacral ala fractures with ongoing healing. [employer] Phone: XR PELVIS (MIN 3 VIEWS)Order ed By: Bhumika Clark on 08-14-2021 [employer] Phone: XR SHOULDER RIGHT (MIN 2 VIE [...] Boni Spain MD 08/14/21 Final result Normal [facility] No acute abnormality . [facility] EXAMINATION: THREE XRAY VIEWS OF THE RIGHT SHOULDER 08/14/2021 7:13 pm COMPARISON: None. HISTORY: ORDERING SYSTEM PROVIDED HISTORY: effusion TECHNOLOGIST PROVIDED HISTORY: AP, scapular Y, axillary. Thank you. [employer]usion FINDINGS: Glenohumeral joint is normally aligned. No evidence of acute fracture or dislocation. No abnormal periarticular calcifications. AC joint and glenohumeral joint degenerative changes Visualized lung is unremarkable. [facility] Boni Spain MD - [...] lung is unremarkable. IMPRESSION: No acute abnormality. [employer] Phone: XR SHOULDER RIGHT (MIN 2 VIE WS)Ordered By: Boni Spain on 08-14-2021 [employer] Phone: CULTURE URINEon 07-22-2021 CULTURE URINE Isolate [...] Trimethoprim/Sulfamethoxa zole <=20 S F Normal [facility] Comment on above: Performed By: #### C VDTBH #### [facility] [address] [place] [address] Dr. Laila Castle CBC AUTO DIFFon 07-20-2021 BASO # 0.1 103/ul Normal 0.0-0.1 [facility] Comment on above: Performed By: #### P OCGLUC #### [facility] [address] [place] [address] Dr. Laila Castle Basophils/100 WBC (Bld) 0.4 % Normal 0.2-2.0 [facility] Comment on above: Performed By: #### P OCGLUC #### [facility] [address] [place] [address] Dr. Laila Castle EO # 0.0 103/ul Normal 0.0-0.7 [facility] Comment on above: Performed By: #### P OCGLUC #### [facility] [address] [place] [address] Dr. Laila Castle Eosinophils/100 WBC (Bld) 0.1 % Critically low 0.9-7.0 [facility] Comment on above: Performed By: #### P OCGLUC #### [facility] [address] [place] [address] Dr. Laila Castle Erythrocyte distribution width (RBC) [Ratio] 14.9 % Normal 11.0-15.0 [facility] Comment on above: Performed By: #### P OCGLUC #### [facility] [address] [place] [address] Dr. Laila Castle Hematocrit (Bld) [Volume fraction] 41.0 % Normal 36.0-48.0 [facility] Comment on above: Performed By: #### P OCGLUC #### [facility] [address] [address] [address] Laila Castle Hemoglobin (Bld) [Mass/Vol] 13.4 g/dL Normal 12.0-16.0 [facility] Comment on above: Performed By: #### P OCGLUC #### [facility] [address] [address] [address] Laila Castle IG # 0.24 10e3/ul Critically high 0.00-0.03 [facility] Comment on above: Performed By: #### P OCGLUC #### [facility] [address] [address] [address] Laila Castle IG % 1.5 % Critically high 0.0-0.5 [facility] Comment on above: Performed By: #### P OCGLUC #### [facility] [address] [address] [address] Laila Castle LYMPH # 1.2 103/ul Normal 1.2-3.8 [facility] Comment on above: Performed By: #### P OCGLUC #### [facility] [address] [address] [address] Laila Castle Lymphocytes/100 WBC (Bld) 7.5 % Critically low 20.5-60.0 [facility] Comment on above: Performed By: #### P OCGLUC #### [facility] [address] [address] [address] Laila Castle MANUAL DIFF REQ NO Normal [facility] Comment on above: Performed By: #### P OCGLUC #### [facility] [address] [address] [address] Laila Castle MCH (RBC) [Entitic mass] 30.2 pg Normal 26.7-34.0 [facility] Comment on above: Performed By: #### P OCGLUC #### [facility] [address] [place] [address] Dr. Laila Castle MCHC (RBC) [Mass/Vol] 32.7 g/dL Normal 29.9-35.2 [facility] Comment on above: Performed By: #### P OCGLUC #### [facility] [address] [address] [address] Laila Castle MCV (RBC) [Entitic vol] 92.6 fL Normal 81.0-99.0 [facility] Comment on above: Performed By: #### P OCGLUC #### [facility] [address] [address] [address] Laila Castle MONO # 0.8 103/ul Normal 0.3-0.8 [facility] Comment on above: Performed By: #### P OCGLUC #### [facility] [address] [address] [address] Laila Castle Monocytes/100 WBC (Bld) 5.3 % Normal 1.7-12.0 [facility] Comment on above: Performed By: #### P OCGLUC #### [facility] [address] [place] [address] Dr. Laila Castle NEUT # 13.5 103/ul Critically high 1.4-6.5 [facility] Comment on above: Performed By: #### P OCGLUC #### [facility] [address] [place] [address] Dr. Laila Castle Neutrophils/100 WBC (Bld) 85.2 % Critically high 43.0-75.0 [facility] Comment on above: Performed By: #### P OCGLUC #### [facility] [address] [place] [address] Dr. Laila Castle Platelet mean volume (Bld) [Entitic vol] 9.3 fL Critically low 9.5-13.5 [facility] Comment on above: Performed By: #### P OCGLUC #### [facility] [address] [place] [address] Dr. Laila Castle PLT 263 103/ul Normal 150-450 [facility] Comment on above: Performed By: #### P OCGLUC #### [facility] [address] [place] [address] Dr. Laila Castle RBC 4.43 106/ul Normal 4.20-5.40 [facility] Comment on above: Performed By: #### P OCGLUC #### [facility] [address] [place], [place] [address] Dr. Laila Castle WBC 15.9 103/ul Critically high 4.0-11.0 The [facility] Comment on above: Performed By: #### P OCGLUC #### [facility] [address], [place] [address] LSPINE WO CONon [...] by: ZAN KRAUSE Date: 2021-07-20 10:25 Normal [facility] ER URINE PROFILEon 2 Bilirubin Ql (U) Negative Normal NEGATIVE [facility] Comment on above: Performed By: #### C MP #### [facility] [address] [place] [address] Dr. Laila Castle Clarity (U) CLEAR Normal CLEAR [facility] Comment on above: Performed By: #### C MP #### [facility] [address] [place] [address] Dr. Laila Castle Color (U) LT. YELLOW Normal YELLOW [facility] Comment on above: Performed By: #### C MP #### [facility] [address] [place] [address] Dr. Laila Castle ERUAHD A micrscopic examina tion will be performed if indicated. Normal [facility] Comment on above: Performed By: #### C MP #### [facility] [address] [place] [address] Dr. Laila Castle Glucose Ql (U) Negative Normal NEGATIVE [facility] Comment on above: Performed By: #### C MP #### [facility] [address] [place] [address] Dr. Laila Castle Hemoglobin Ql (U) Negative Normal NEGATIVE [facility] Comment on above: Performed By: #### C MP #### [facility] [address] [place] [address] Dr. Laila Castle Ketones Ql (U) Negative Normal NEGATIVE [facility] Comment on above: Performed By: #### C MP #### [facility] [address] [place] [address] Dr. Laila Castle LEUKOCYTES SMALL Abnormal NEGATIVE [facility] Comment on above: Performed By: #### C MP #### [facility] [address] [place] [address] Dr. Laila Castle Nitrite Ql (U) Negative Normal NEGATIVE [facility] Comment on above: Performed By: #### C MP #### [facility] [address] [place] [address] Dr. Laila Castle pH (U) 6.0 [pH] Normal 5-9 [facility] Comment on above: Performed By: #### C MP #### [facility] [address] [place] [address] Dr. Laila Castle SPEC GRAVITY <=1.005 Abnormal 1.005-<=1.0 25 [facility] Comment on above: Performed By: #### C MP #### [facility] [address] [place] [address] Dr. Laila Castle UA PROTEIN Negative Normal NEGATIVE/ TRACE [facility] Comment on above: Performed By: #### C MP #### [facility] [address] [place] [address] Dr. Laila Castle UR MICRO IND INDICATED Normal [facility] Comment on above: Performed By: #### C MP #### [facility] [address] [place] [address] Dr. Laila Castle Urobilinogen Qn (U) 0.2 {Mehran'U}/dL Normal 0.2 - 1. 0 [facility] Comment on above: Performed By: #### C MP #### [facility] [address] [place] [address] Dr. Laila Castle PROF CHEM 8 (BAS METB)on Anion gap [Moles/Vol] 12.1 mmol/L Normal Th e [facility] Comment on above: Performed By: #### P OCGLUC #### [facility] [address] [place] [address] [address] Laila Castle Calcium [Mass/Vol] 9.7 mg/dL Normal 8.5-10.1 [facility] Comment on above: Performed By: #### P OCGLUC #### [facility] [address] [address] [address] Laila Castle Chloride [Moles/Vol] 94 mmol/L Critically low 98-107 [facility] Comment on above: Performed By: #### P OCGLUC #### [facility] [address] [address] [address] Laila Castle CO2 [Moles/Vol] 33.7 mmol/L Critically high 21.0-32.0 [facility] Comment on above: Performed By: #### P OCGLUC #### [facility] [address] [address] [address] Laila Castle Creatinine [Mass/Vol] 0.59 mg/dL Normal 0.55-1.02 [facility] Comment on above: Performed By: #### P OCGLUC #### [facility] [address] [place] [address] Dr. Laila Castle EGFR-AF LEBANESE >60 Normal >=60 The [facility] Comment on above: Performed By: #### P OCGLUC #### [facility] [address] [address] [address] Laila Castle EGFR-NON AF LEBANESE >60 Normal >=60 [facility] Comment on above: Performed By: #### P OCGLUC #### [facility] [address] [address] [address] Laila Castle Glucose [Mass/Vol] 88 mg/dL Normal 74-[address] [facility] Comment on above: Performed By: #### P OCGLUC #### [facility] [address] [address] [address] Laila Castle Potassium [Moles/Vol] 3.8 mmol/L Normal 3.5-5.1 [facility] Comment on above: Performed By: #### P OCGLUC #### [facility] [address] [place] [address] Dr. Laila Castle Sodium [Moles/Vol] 136 mmol/L Normal 136-[address] [facility] Comment on above: Performed By: #### P OCGLUC #### [facility] [address] [place] [address] Dr. Laila Castle Urea nitrogen [Mass/Vol] 15.0 mg/dL Normal 7.0-18.0 [facility] Comment on above: Performed By: #### P OCGLUC #### [facility] [address] [place] [address] Dr. Laila Castle Urea nitrogen/Creatinine [Mass ratio] 25.4 mg/mg Normal [facility] Comment on above: Performed By: #### P OCGLUC #### [facility] [address] [place] [address] Dr. Laila Castle URINE MICROSCOPIC ONLYon BACTERIA LARGE Abnormal NONE SEEN The [facility] Comment on above: Performed By: #### C MP #### [facility] [address] [place] [address] Dr. Laila Castle Bacteria identified Cx Nom (U) CX ALREADY ORDERED Normal [facility] Comment on above: Performed By: #### C MP #### [facility] [address] [place] [address] Dr. Laila Castle CAST NONE SEEN Normal NONE SEEN [facility] Comment on above: Performed By: #### C MP #### [facility] [address] [place] [address] Dr. Laila Castle Crystals LM Nom (Urine sed) NONE SEEN Normal NONE SEEN [facility] Comment on above: Performed By: #### C MP #### [facility] [address] [place] [address] Dr. Laila Castle Epithelial cells LM Ql (Urine sed) FEW Abnormal NONE SEEN /RARE [facility] Comment on above: Performed By: #### C MP #### [facility] [address] [place] [address] Dr. Laila Castle MUCOUS TRACE Abnormal NONE SEEN The [facility] Comment on above: Performed By: #### C MP #### [facility] [address] [place] [address] Dr. Laila Castle RBC 0-2 Normal 0-2 [facility] Comment on above: Performed By: #### C MP #### [facility] [address] [place] [address] Dr. Laila Castle TRICH SEEN Abnormal NONE SEEN The [facility] Comment on above: Result Comment: Prev iously reported as: (blank) On 07/20/2021 12:03 By KD3 Performed By: #### C MP #### [facility] [address] [place] [address] Dr. Laila Castle WBC 2-5 Abnormal NONE SEEN The [facility] Comment on above: Performed By: #### C MP #### [facility] [address] [place] [address] Dr. Laila Castle BACTERIA TRACE Abnormal NONE SEEN The [facility] Comment on above: Performed By: #### C MP #### [facility] [address] [place] [address] Dr. Laila Castle Bacteria identified Cx Nom (U) INDICATED Normal [facility] Comment on above: Performed By: #### C MP #### [facility] [address] [place] [address] Dr. Laila Castle CAST NONE SEEN Normal NONE SEEN [facility] Comment on above: Performed By: #### C MP #### [facility] [address] [place] [address] Dr. Laila Castle Crystals LM Nom (Urine sed) NONE SEEN Normal NONE SEEN [facility] Comment on above: Performed By: #### C MP #### [facility] [address] [place] [address] Dr. Laila Castle Epithelial cells LM Ql (Urine sed) RARE Normal NONE SEEN /RARE [facility] Comment on above: Performed By: #### C MP #### [facility] [address] [place] [address] Dr. Laila Castle MUCOUS SMALL Abnormal NONE SEEN The [facility] Comment on above: Performed By: #### C MP #### [facility] [address] [address] [address] Laila Castle RBC NONE SEEN Abnormal 0-2 [facility] Comment on above: Performed By: #### C MP #### [facility] [address] [address] [address] Laila Castle TRICH SEEN Abnormal NONE SEEN The [facility] Comment on above: Performed By: #### C MP #### [facility] [address] [address] [address] Laila Castle WBC 2-5 Abnormal NONE SEEN The [facility] Comment on above: Performed By: #### C MP #### [facility] [address] [address] [address] Laila Castle XR LSPINE 2_3 VIEWSon [...] COLLETTE ELIZONDO Date: 2021-07-18 13:41 Normal [facility] Vital Signs Date Time Vital Sign Value Performing Clinician Facility 12-30-2022 10:00-0400 Body height 165.1 cm Moises Jose Other [facility] Other 10-27-2022 16:21-0400 SaO2% (BldA) [Mass fraction] 96 % Charanjit Hu MD Work Phone: [facility] 10-27-2022 14:22-0400 Diastolic blood pressure 51 mm[Hg] Charanjit Hu MD Work Phone: [facility] 10-27-2022 14:22-0400 Systolic blood pressure 137 mm[Hg] Charanjit Hu MD Work Phone: [facility] 10-27-2022 12:33-0400 Body temperature 98.01 [degF] Charanjit Hu MD Work Phone: [facility] 10-27-2022 12:33-0400 Heart rate 96 /min Charanjit Hu MD Work Phone: [facility] 10-27-2022 12:33-0400 Respiratory rate 13 /min Charanjit Hu MD Work Phone: [facility] 10-17-2022 06:27-0400 Body temperature 98.1 [degF] Kelsie Wills MD Work Phone: [facility] 10-17-2022 06:27-0400 Diastolic blood pressure 65 mm[Hg] Kelsie Wills MD Work Phone: [facility] 10-17-2022 06:27-0400 Heart rate 92 /min Kelsie Wills MD Work Phone: [facility] 10-17-2022 06:27-0400 Respiratory rate 20 /min Kelsie Wills MD Work Phone: [facility] 10-17-2022 06:27-0400 SaO2% (BldA) [Mass fraction] 96 % Kelsie Wills MD Work Phone: [facility] 10-17-2022 06:27-0400 Systolic blood pressure 137 mm[Hg] Kelsie Wills MD Work Phone: [facility] 10-14-2022 19:00-0400 Body height 162.6 cm Kelsie Wills MD Work Phone: [facility] 10-03-2022 10:20-0400 Body height 165.1 cm Moises Garcia Other [facility] Other 10-03-2022 10:20-0400 Body mass index (BMI) [Ratio] 31.61 kg/m2 Moises Garcia Other [facility] Other 10-03-2022 10:20-0400 Body weight 86.18 kg Moises Garcia Other [facility] Other 10-03-2022 10:20-0400 Diastolic blood pressure 75 mm[Hg] Moises Garcia Other [facility] Other 10-03-2022 10:20-0400 Systolic blood pressure 168 mm[Hg] Moises Garcia Other [facility] Other 09-26-2022 09:57-0400 Inhaled oxygen flow rate 2 L/min DO Bhumika Ball Work Phone: [facility] 09-26-2022 08:12-0400 Body temperature 98.1 [degF] DO Bhumika Ball Work Phone: [facility] 09-26-2022 08:12-0400 Diastolic blood pressure 83 mm[Hg] DO Bhumika Ball Work Phone: [facility] 09-26-2022 08:12-0400 Heart rate 94 /min DO Bhumika Ball Work Phone: [facility] 09-26-2022 08:12-0400 Respiratory rate 18 /min DO Bhumika Ball Work Phone: [facility] 09-26-2022 08:12-0400 SaO2% (BldA) [Mass fraction] 99 % DO Bhumika Ball Work Phone: [facility] 09-26-2022 08:12-0400 Systolic blood pressure 161 mm[Hg] DO Bhumika Ball Work Phone: [facility] 09-25-2022 07:16-0400 Body height 162.56 cm DO Bhumika Ball Work Phone: [facility] 09-21-2022 05:44-0400 Body weight 88.7 kg DO Bhumika Ball Work Phone: [facility] 09-17-2022 15:44-0400 Body temperature 97.9 [degF] DO Bhumika Ball Work Phone: [facility] 09-17-2022 15:44-0400 Diastolic blood pressure 86 mm[Hg] DO Bhumika Ball Work Phone: [facility] 09-17-2022 15:44-0400 Heart rate 102 /min DO Bhumika Ball Work Phone: [facility] 09-17-2022 15:44-0400 Inhaled oxygen flow rate 2 L/min DO Bhumika Ball Work Phone: [facility] 09-17-2022 15:44-0400 SaO2% (BldA) [Mass fraction] 98 % DO Bhumika Ball Work Phone: [facility] 09-17-2022 15:44-0400 Systolic blood pressure 147 mm[Hg] DO Bhumika Ball Work Phone: [facility] 09-17-2022 15:31-0400 Respiratory rate 18 /min DO Bhumika Ball Work Phone: [facility] 09-17-2022 06:00-0400 Body weight 91.3 kg DO Bhumika Ball Work Phone: [facility] 09-15-2022 07:54-0400 Body height 162.56 cm DO Bhumika Ball Work Phone: [facility] 09-15-2022 07:54-0400 Body mass index (BMI) [Ratio] 33.4 kg/m2 DO Bhumika Ball Work Phone: [facility] 09-05-2022 15:15-0400 Diastolic blood pressure 90 mm[Hg] Et3 [facility] 09-05-2022 15:15-0400 Heart rate 114 /min Et3 [facility] 09-05-2022 15:15-0400 SaO2% (BldA) [Mass fraction] 97 % [facility] Comment on above: 2L DC 09-05-2022 15:15-0400 Systolic blood pressure 141 mm[Hg] Et3 [facility] 08-26-2022 08:45-0400 Body height 165.1 cm Bhumika Ball Other [facility] Other 08-26-2022 08:45-0400 Body mass index (BMI) [Ratio] 33.81 kg/m2 Bhumika Ball Other [facility] Other 08-26-2022 08:45-0400 Body weight 92.17 kg Bhumika Ball Other [facility] Other 08-26-2022 08:45-0400 Diastolic blood pressure 82 mm[Hg] Bhumika Ball Other [facility] Other 08-26-2022 08:45-0400 Respiratory rate 25 /min Bhumika Ball Other [facility] Other 08-26-2022 08:45-0400 Systolic blood pressure 140 mm[Hg] Bhumika Ball Other [facility] Other 07-30-2022 09:45-0400 Body height 165.1 cm Bhumika Ball Other [facility] Other 07-30-2022 09:45-0400 Body mass index (BMI) [Ratio] 33.81 kg/m2 Bhumika Ball Other [facility] Other 07-30-2022 09:45-0400 Body weight 92.17 kg Bhumika Ball Other [facility] Other 07-30-2022 09:45-0400 Diastolic blood pressure 86 mm[Hg] Bhumika Ball Other [facility] Other 07-30-2022 09:45-0400 Respiratory rate 20 /min Bhumika Ball Other [facility] Other 07-30-2022 09:45-0400 Systolic blood pressure 118 mm[Hg] Bhumika Ball Other [facility] Other 07-30-2022 08:45-0400 Body height 165.1 cm Bhumika Ball Other [facility] Other 07-30-2022 08:45-0400 Body mass index (BMI) [Ratio] 33.81 kg/m2 Bhumika Ball Other [facility] Other 07-30-2022 08:45-0400 Body weight 92.17 kg Bhumika Ball Other [facility] Other 07-30-2022 08:45-0400 Diastolic blood pressure 86 mm[Hg] Bhumika Ball Other [facility] Other 07-30-2022 08:45-0400 Respiratory rate 20 /min Bhumika Ball Other [facility] Other 07-30-2022 08:45-0400 Systolic blood pressure 118 mm[Hg] Bhumika Ball Other [facility] Other 04-30-2022 11:30-0500 Body height 165.1 cm Bhumika Ball Other [facility] Other 04-30-2022 11:30-0500 Body mass index (BMI) [Ratio] 32.28 kg/m2 Bhumika Ball Other [facility] Other 04-30-2022 11:30-0500 Body weight 88 kg Bhumika Ball Other [facility] Other 04-30-2022 11:30-0500 Diastolic blood pressure 82 mm[Hg] Bhumika Ball Other [facility] Other 04-30-2022 11:30-0500 Respiratory rate 20 /min Bhumika Ball Other [facility] Other 04-30-2022 11:30-0500 SaO2% (BldA) [Mass fraction] 94 % Bhumika Ball Other [facility] Other 04-30-2022 11:30-0500 Systolic blood pressure 126 mm[Hg] Bhumika Ball Other [facility] Other 08-21-2021 12:19-0400 Body height 162.6 cm Silviano Haro MD [facility] [employer] 08-21-2021 08:01-0400 Body temperature 97.7 [degF] Silviano Haro MD [facility] [employer] 08-21-2021 08:01-0400 Diastolic blood pressure 82 mm[Hg] [facility] [employer] 08-21-2021 08:01-0400 Heart rate 95 /min Silviano Haro MD [facility] [employer] 08-21-2021 08:01-0400 Respiratory rate 29 /min Silviano Haro MD [facility] [employer] 08-21-2021 08:01-0400 SaO2% (BldA) [Mass fraction] 92 % Silviano Haro [facility] [employer] 08-21-2021 08:01-0400 Systolic blood pressure 151 mm[Hg] Silviano Haro MD [facility] [employer] 08-19-2021 05:48-0400 Body mass index (BMI) [Ratio] 40.3 kg/m2 Silviano Haro MD [facility] [employer] 08-19-2021 05:48-0400 Body weight 106.5 kg Silviano Haro MD [facility] 08-14-2021 15:30-0400 Diastolic blood pressure 92 mm[Hg] Dylan Mcdowell MD Work Phone: [facility] 08-14-2021 15:30-0400 Heart rate 126 /min Dylan Mcdowell MD Work Phone: [facility] 08-14-2021 15:30-0400 Respiratory rate 17 /min Dylan Mcdowell MD Work Phone: [facility] 08-14-2021 15:30-0400 SaO2% (BldA) [Mass fraction] 94 % Dylan Mcdowell MD Work Phone: [facility] 08-14-2021 15:30-0400 Systolic blood pressure 123 mm[Hg] Dylan Mcdowell MD Work Phone: [facility] 08-14-2021 13:28-0400 Body temperature 100.9 [degF] Dylan Mcdowell MD Work Phone: [facility] 08-14-2021 07:17-0400 Body height 160 cm Dylan Mcdowell MD Work Phone: [facility] 08-14-2021 07:17-0400 Body mass index (BMI) [Ratio] 37.73 kg/m2 Dylan Mcdowell MD Work Phone: [facility] 08-14-2021 07:17-0400 Body weight 96.62 kg Dylan Mcdowell MD Work Phone: [facility] Encounters Encounter Date Encounter Type Care Provider Facility Start: 03-12-2023 End: 03-12-2023 ambulatory Bhumika Stacy Other [place] [facility] Other Start: 03-12-2023 Sbsq nursing facil care/day new problem 25 min Bhumika Stacy [facility] Start: 02-19-2023 End: 02-19-2023 ambulatory Bhumika Stacy Other [facility] Other Start: 02-19-2023 Sbsq nursing facil care/day new problem 25 min Bhumika Stacy [facility] Start: 02-16-2023 End: 02-16-2023 ambulatory Bhumika Stacy Other [facility] Other Start: 02-16-2023 Telephone encounter Bhumika Ball [facility] Start: 02-04-2023 End: 02-04-2023 ambulatory Bhumika Godfrey Other [facility] Other Start: 02-04-2023 Telephone encounter Bhumika Ball [facility] Start: 01-28-2023 End: 01-28-2023 ambulatory Bhumika Godfrey Other [facility] Other Start: 01-28-2023 Telephone encounter Bhumika Ball [facility] Start: 01-23-2023 End: 01-23-2023 ambulatory Bhumika Godfrey Other [facility] Other Start: 01-23-2023 Telephone encounter Bhumika Ball [facility] Start: 01-15-2023 End: 01-15-2023 ambulatory Bhumika Ball Other [facility] Other Start: 01-15-2023 Telephone encounter Bhumika Ball [facility] Start: 01-12-2023 End: 01-12-2023 ambulatory Bhumika Ball Other [facility] Other Start: 01-12-2023 Telephone encounter Bhumika Ball [facility] Start: 01-11-2023 End: 01-11-2023 ambulatory Bhumika Ball Other [facility] Other Start: 01-11-2023 Telephone encounter Bhumika Ball [facility] Start: 01-06-2023 End: 01-06-2023 ambulatory Bhumika Ball Other [facility] Other Start: 01-06-2023 Telephone encounter Bhumika LACKEY [facility] Start: 01-02-2023 End: 01-02-2023 ambulatory Bhumika Stacy Other [facility] Other Start: 01-02-2023 Telephone encounter Bhumika LACKEY [facility] Start: 01-01-2023 End: 01-01-2023 ambulatory Bhumika Stacy Other [facility] Other Start: 01-01-2023 Initial nursing faci lity care/day 35 minutes Bhumika Stacy [facility] Start: 12-30-2022 End: 12-30-2022 ambulatory Moises Garcia Other [facility] Other Start: 12-30-2022 Office outpatient vi sit 25 minutes Moises Garcia [facility] Start: 12-10-2022 End: 12-10-2022 ambulatory Moises Garcia Other [facility] Other Start: 12-10-2022 Telephone encounter Moises Garcia [facility] Start: 11-25-2022 End: 11-26-2022 ambulatory BHUMIKA STACY [facility] Start: 11-25-2022 End: 11-26-2022 ambulatory HECTOR WADE MADISYN [facility] Start: 11-18-2022 End: 11-19-2022 ambulatory HECTOR LUIS ANGEL [facility] Start: 11-14-2022 End: 11-14-2022 ambulatory Moises Garcia Facility:[facility] Start: 11-14-2022 End: 11-14-2022 ambulatory DO Bhumika Stacy Work Phone: [facility] Work Phone: Start: 11-14-2022 End: 11-14-2022 Patient encounter procedure DO Bhumika Stacy Work Phone: [facility] [place] Work Phone: Start: 10-30-2022 ambulatory Bhumika Stacy DO Facility:[facility] Start: 10-27-2022 End: 10-28-2022 Emergency department patient visit CHARANJIT HU [facility] Start: 10-27-2022 End: 10-27-2022 Emergency department patient visit Charanjit Hu MD Work Phone: [facility] ED Comment on above: Other chronic pain ( Primary Dx); Osteoarthritis of spine, unspecified spinal osteoarthritis complication status, unspecified spinal region Start: 10-13-2022 End: 10-17-2022 Evaluation and management of inpatient NAMRATA KARLI Facility:[facility] Start: 10-13-2022 End: 10-17-2022 Evaluation and management of inpatient Flash Farmer MD Work Phone: [id number] Comment on above: Extremity numbness Start: 10-13-2022 End: 10-13-2022 Emergency department patient visit KOKO J ROBIN [facility] Start: 10-13-2022 End: 10-13-2022 [facility] Start: 10-06-2022 End: 10-07-2022 ambulatory [facility] MARS [facility] Start: 10-03-2022 End: 10-03-2022 Subsequent hospital visit by physician Bhumika Stacy DO Work Phone: [facility] Start: 10-03-2022 End: 10-04-2022 ambulatory [email or web address] [facility] [email or web address] Other Start: 10-03-2022 Postop follow up vis it related to original px Moises Garcia [facility] Start: 10-01-2022 End: 10-02-2022 ambulatory MARY ANN ARE[facility] Start: 10-01-2022 End: 10-01-2022 Subsequent hospital visit by physician Bhumika Stacy DO Work Phone: [facility] Start: 09-29-2022 End: 09-30-2022 ambulatory HECTOR MARS [facility] Start: 09-17-2022 End: 09-26-2022 Evaluation and management of inpatient Tom Hill Facility:[facility] Start: 09-17-2022 End: 09-26-2022 Evaluation and management of inpatient DO Bhumika Stacy Work Phone: [facility] Work Phone: Start: 09-15-2022 End: 09-15-2022 ambulatory Bhumika Stacy Other [facility] Other Start: 09-15-2022 Telephone encounter Bhumika LACKEY [facility] Start: 09-12-[address] Bhumika Stacy Facility[facility] Start: 09-11-[address] Bhumika Stacy Facility:[facility] Start: 09-10-2022 End: 09-17-2022 Evaluation and management of inpatient Arnaud Max Facility:[facility] Start: 09-10-2022 End: 09-17-2022 Evaluation and management of inpatient DO Bhumika Stacy Work Phone: [facility] Work Phone: Start: 09-10-2022 End: 09-10-2022 ambulatory Bhumika Stacy Other [facility] Other Start: 09-10-2022 Telephone encounter [facility] Start: 09-09-2022 End: 09-09-2022 ambulatory Bhumika Stacy Other [facility] Other Start: 09-09-2022 Telephone encounter [facility] Start: 09-06-2022 End: 09-13-2022 ambulatory UNKNOWN PROVIDER Facility:[facility] Start: 09-05-2022 End: 09-05-2022 ambulatory [facility] Triage, Treat and Transport Start: 09-05-2022 End: 09-05-2022 [facility] Comment on above: Arrived Start: 08-26-2022 End: 08-26-2022 ambulatory Bhumika Stacy Other [facility] Other Start: 08-26-2022 Office outpatient vi sit 25 minutes Bhumika Ball [facility] Start: 08-25-2022 End: 08-25-2022 ambulatory Bhumika Godfrey Other [facility] Other Start: 08-25-2022 Telephone encounter Bhumika Ball [facility] Start: 08-22-2022 End: 08-22-2022 ambulatory Bhumika Stacy Other [facility] Other Start: 08-22-2022 Telephone encounter Bhumika Ball [facility] Start: 08-07-2022 End: 08-08-2022 ambulatory Boni Paris DO Facility:[facility] Start: 07-30-2022 End: 07-30-2022 ambulatory Bhumika Stacy Other [facility] Other Start: 07-30-2022 Office outpatient vi sit 25 minutes Bhumika Ball [facility] Start: 07-10-2022 End: 07-10-2022 ambulatory Bhumika Stacy Other [facility] Other Start: 07-10-2022 Telephone encounter Bhumika Stacy ZIYAD [employer] Start: 06-18-2022 End: 06-19-2022 ambulatory Lexie Hassan HOME HEALTH CLINICAL LIAISON-MOP MAKER Facility:[facility] Start: 05-14-2022 End: 05-14-2022 ambulatory Bhumika Stacy Other [facility] Other Start: 05-14-2022 Telephone encounter Bhumika Ball [facility] Start: 05-13-2022 End: 05-13-2022 ambulatory Bhumika Godfrey Other [facility] Other Start: 05-13-2022 Telephone encounter Bhumika Ball [facility] Start: 05-10-2022 End: 05-11-[address] BHUMIKA STACY Facility: Start: 05-08-2022 End: 05-09-2022 ambulatory BHUMIKA STACY [facility] Start: 05-08-2022 End: 05-08-2022 Subsequent hospital visit by physician Bhumika Stacy DO Work Phone: [facility] Comment on above: 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 Start: 03-12-2022 Refill Tom Welch MD Work Phone: [facility] Comment on above: Refill Start: 01-21-2022 Refill Tom Welch MD Work Phone: [facility] Comment on above: Refill Start: 01-17-2022 Adult health examination Moises Garcia Other [facility] Other Start: 11-10-2021 End: 11-12-2021 Evaluation and management of inpatient DR BHUMIKA STACY Facility:[facility] Start: 11-05-2021 End: 11-05-[address] BHUMIKA STACY Facility:[facility] Start: 10-11-2021 Refill Tom Welch MD Work Phone: [facility] Comment on above: Refill Start: 09-30-2021 ambulatory Jhoan Zarate MD Facility:[facility] Start: 09-26-2021 Refill Tom Welch MD Work Phone: [facility] Comment on above: Refill Start: 09-20-2021 End: 09-20-2021 ambulatory UNKNOWN PROVIDER Facility:[facility] Start: 09-09-2021 End: 09-09-2021 Subsequent hospital visit by physician Bhumika Stacy DO Work Phone: [facility] Start: 09-02-2021 End: 09-02-2021 Subsequent hospital visit by physician Bhumika Stacy DO Work Phone: [facility] Start: 08-26-2021 End: 08-26-2021 Subsequent hospital visit by physician Bhumika Stacy DO Work Phone: [facility] Start: 08-14-2021 End: 08-21-2021 Evaluation and management of inpatient BHUMIKA STACY [facility] Start: 08-14-2021 End: 08-21-2021 Evaluation and management of inpatient Silviano Haro MD [facility] CAR 2 Comment on above: Pyogenic arthritis o f right shoulder region, due to unspecified organism (HCC) (Primary Dx); Acute cystitis without hematuria; MSSA bacteremia; Staphylococcal arthritis of right shoulder (HCC) Start: 08-14-2021 End: 08-14-2021 Emergency department patient visit Dylan Mcdowell MD Work Phone: [facility] ED Comment on above: Pyogenic arthritis o f right shoulder region, due to unspecified organism (HCC) (Primary Dx); SIRS (systemic inflammatory response syndrome) (HCC); Septic shock (HCC) Start: 07-25-2021 Refill Tom Welch MD Work Phone: [facility] Comment on above: Refill Start: 07-20-2021 [...] Performed By: #### X M #### [facility] ([facility]) [address] [place] [address] Start: 10-14-2022 Blood typing serologic abo Vonnie [...] complete auto&auto difrntl wbc Mary Ann Johnson HOME HEALTH CLINICAL LIAISON - MOP MAKER Work Phone: Start: 10-01-2022 Urnls dip stick/tabl et rgnt auto w/o microscopy Mary Annlili Johnson HOME HEALTH CLINICAL LIAISON - MOP MAKER Work Phone: Start: 10-01-2022 Procalcitonin (pct) David lili Areli Johnson HOME HEALTH CLINICAL LIAISON - [employer]OP MAKER Work Phone: Start: 09-21-2022 X-ray of cervical spine DO Bhumika Ball Work Phone: Start: 09-15-2022 Decompression of cer vical spine DO Bhumika Ball Work Phone: Start: 09-15-2022 X-ray of cervical spine DO Bhumika Ball Work Phone: Start: 09-12-2022 Antibody screen Tom iHll Comment on above: Result Comment: PERF ORMED BY: [facility] [address] [place] [address] PATHOLOGIST NET ARCHITECT PETER RAYO M.D. Start: 09-11-2022 Plain chest [...] subq port age 4 yr/> Tita Hilariowilmer HOME HEALTH CLINICAL LIAISON - MOP MAKER Work Phone: Start: 08-21-2021 Nursing procedure Bud bhavana Lucas Juan HOME HEALTH CLINICAL LIAISON - MOP MAKER Work Phone: Start: 08-21-2021 Assay of magnesium [...] bacterial quanttative colony count urine Tita Martinez HOME HEALTH CLINICAL LIAISON - MOP MAKER Work Phone: Start: 08-16-2021 Drug screen quantita [...] Cholesterol [Mass/volume] in Serum or Plasma Cholesterol [facility] Start: 11-06-2022 End: 11-06-2022 Patient encounter procedure 11/06/2022 Office Visit Infectious Diseases Eulogio Manzo MD [address] [place] [address] [facility] Start: 10-21-2022 Influenza vaccination Flu vaccine (# 1) [facility] Start: 10-14-2022 End: 10-14-2022 ambulatory [facility] Start: 09-26-2022 [facility] Start: 09-21-2022 Arrangement of care procedure [facility] Start: 09-18-2022 Consultation [facility] Start: 09-17-2022 [facility] Start: 09-17-2022 Hospital admission [facility] Start: 09-17-2022 Referral to clinical date pitter [facility] Start: 09-17-2022 [facility] Start: 09-17-2022 [facility] Start: 09-15-2022 Hospital admission [facility] Start: 09-11-2022 Consultation [facility] Start: 09-10-2022 Consultation [facility] Start: 09-10-2022 Hospital admission [facility] Start: 09-10-2022 Fusion of Cervical Vertebral Joint with Nonautologous Tissue Substitute, Posterior Approach, Posterior Column, Percutaneous Approach Fusion of Cervical Vertebral Joint with Nonautologous Tissue Substitute, Posterior Approach, Posterior Column, Percutaneous Approach [facility] Start: 09-10-2022 Introduction of Recombinant Bone Morphogenetic Protein into Joints, Open Approach Introduction of Recombinant Bone Morphogenetic Protein into Joints, Open Approach [facility] Start: 09-10-2022 Reposition Cervical Vertebral Joint, External Approach Reposition Cervical Vertebral Joint, External Approach [facility] Start: 05-23-2022 End: 05-23-2022 Patient encounter procedure 05/23/2022 Office Visit Rheumatology Tom Welch MD [address] [place] [id number] [facility] Start: 05-07-2022 Annual Wellness Visi t (AWV) Annual Wellness Visit (AWV) [facility] Start: 02-12-2022 End: 02-12-2022 Patient encounter procedure 02/12/2022 Office Visit Rheumatology Tom Welch MD [address] [place] [address] [facility] Start: 12-21-2021 Influenza vaccination Influenza Vacc ine (#1) [facility] Start: 11-21-2021 Influenza vaccination Flu vacc ine (Season Ended) [facility] Start: 10-21-2021 [facility] Start: 10-10-2021 End: 10-10-2021 Patient encounter procedure 10/10/2021 Office Visit Infectious Diseases Eulogio Manzo MD [address] [place] [address] [facility] Start: 09-20-2021 Welcome to Medicare Visit (G0402) Welcome to Medicare Visit (G0402) [facility] Start: 09-03-2021 End: 09-03-2021 Patient encounter procedure 09/03/2021 Office Visit Infectious Diseases Eulogio Manzo MD [address] [place] [address] [facility] Start: 07-25-2019 Pneumococcal 65+ yea rs Vaccine (1 - PCV) Pneumococcal 65+ years Vaccine (1 - PCV) [facility] Start: 07-25-2019 Screening for osteoporosis Bone Densitometry [facility] Start: 2009 Screening for osteoporosis DEXA (modify frequency per FRAX score) [facility] Start: 2004 Measurement of occul t blood in single stool specimen FIT [facility] Start: 2004 Screening for malign ant neoplasm of breast [facility] Start: 2004 Screening for malign ant neoplasm of colon CRC Screening [facility] Start: 2004 Shingles vaccine (1 of 2) Shingles vaccine (1 of 2) [facility] Start: 07-25-1999 Cholesterol [Mass/volume] in Serum or Plasma Cholesterol [facility] Start: 07-25-1999 Screening for malign ant neoplasm of colon [facility] Start: 1994 Lipid panel Lipids [facility] [employer] Start: 1994 Screening for malign ant neoplasm of breast Mammography [facility] Start: 1989 Diabetes screen Diabetes screen [facility] Start: 1973 DTaP/Tdap/Td vaccine (1 - Tdap) DTaP/Tdap/Td vaccine (1 - Tdap) [facility] Start: 1973 Shingles (RZV) Vacci ne (1 of 2) Shingles (RZV) Vaccine (1 of 2) [facility] Start: 1972 Hepatitis C screening Hepatitis C sc reen [facility] Start: 1972 Tetanus + diphtheria + acellular pertussis vaccine (product) Tdap [facility] Start: 1966 COVID-19 Vaccine (1) COVID-19 Vaccin e (1) [facility] Start: 1966 Depression Screen Depression Screen [facility] Start: 1960 Pneumococcal vaccination Pneumococcal Vaccine(s) (65+ yrs) (1 - PCV) [facility] Start: 07-25-1959 COVID-19 Vaccine (#1) COVID-19 Vacci ne (#1) [facility] Start: 07-25-1959 COVID-19 Vaccine (1) COVID-19 Vaccin e (1) [facility] Start: 01-24-1955 COVID-19 Vaccine (#1) COVID-19 Vacci ne (#1) [facility] Start: 1954 Annual Wellness Visi t (AWV) Annual Wellness Visit (AWV) [facility] Start: 1954 Screening for malign ant neoplasm of colon Colonoscopy [facility] End: 10-13-2022 Bacteria identified in Blood by Culture [facility] Comment on above: One Time for 1 Occur rences starting 10/13/2022 until 10/13/2022 Basic Metabolic Pane l w/ Reflex to MG Basic Metabolic Panel w/ Reflex to MG Lab Routine Daily until discontinued starting 08/15/2021, 7 completed [facility] Phone: Comment on above: Daily until disconti nued starting 08/15/2021, 7 completed C-reactive protein C-Reactive Pr otein Lab Add-On Q48H until discontinued starting 08/18/2021, 2 completed [facility] Phone: Comment on above: Q48H until discontin ued starting 08/18/2021, 2 completed CBC W Auto Different ial panel - Blood CBC with Auto Differential Lab Routine Daily until discontinued starting 08/15/2021, 7 completed [facility] Phone: Comment on above: Daily until disconti nued starting 08/15/2021, 7 completed CTA CHEST ABDOMEN PELVIS W CONTRAST CTA CHEST ABDOMEN PELVIS W CONTRAST Imaging STAT 08/14/2021 10:22 AM EDT [facility] Phone: Culture, Anaerobic a nd Aerobic Culture, Anaerobic and Aerobic Microbiology Routine 08/17/2021 11:17 AM EDT [facility] Phone: End: 08-14-2021 Culture, Blood 1 [facility] Phone: Comment on above: One Time for 1 Occur rences starting 08/14/2021 until 08/14/2021 End: 10-01-2022 Culture, Blood 1 [facility] Comment on above: Once for 1 Occurrenc es starting 10/01/2022 until 10/01/2022 Culture, Fungus Culture, Fungus Microbiology Routine Pyogenic arthritis of right shoulder region, due to unspecified organism (HCC) 08/16/2021 9:03 PM EDT [facility] Work Phone: End: 10-01-2022 Culture, Urine [facility] Work Phone: Comment on above: Once for 1 Occurrenc es starting 10/01/2022 until 10/01/2022 Oxygen therapy [[facility] Data Set] Initiate Oxygen Therapy Protocol Respiratory Care Routine As Needed until discontinued starting 08/14/2021 [facility] Work Phone: Comment on above: As Needed until disc ontinued starting 08/14/2021 Patient referral [facility] Work Phone: Platelets [#/volume] in Blood PLATELET COUNT Lab Routine Every 3 days in the AM Lab until discontinued starting 10/15/2022 [facility] Comment on above: Every 3 days in the AM Lab until discontinued starting 10/15/2022 End: 08-14-2021 PREVIOUS SPECIMEN [facility] Comment on above: Once for 1 Occurrenc es starting 08/14/2021 until 08/14/2021 End: 10-13-2022 SEDIMENTATION RATE, AUTOMATED SEDIMENTATION RATE, AUTOMATED Lab Urgent One Time for 1 Occurrences starting 10/13/2022 until 10/13/2022 [facility] Work Phone: Comment on above: One Time for 1 Occur rences starting 10/13/2022 until 10/13/2022 Standard ECG ECG ECG STAT Needed until discontinued starting 10/14/2022 [facility] Comment on above: Needed until disc ontinued starting 10/14/2022 Immunizations Immunization Date Immunization Notes Care Provider Jorge guzman 10-17-2021 Prevnar 20 Moises Garcia Other [facility] Other pneumococcal Conjuga te, unspecified formulation; Translations: [Need for prophylactic vaccination against Streptococcus pneumoniae (pneumococcus)] Moises Garcia Other [facility] Other Payers Date Payer Category Payer Unknown [id number] 2022 Self-pay 2021 Medicare [id number] 2021 Medicaid [id number] 1. [id number] 2020 Unknown [id number] [id number] 2020 Unknown OOC 2020 Unknown 1 1959 Medicare [id number] 1.2 .[id number] 1959 Self-pay [id number] 1954 Unknown [id number] 2.16. 840.1.917416.3.579.2.175 1954 Unknown [id number] 2.16. 840.1.266507.3.579.2.175 1954 Unknown [id number] 2.16.84 0.1.052030.3.579.2.593 1954 Unknown [id number] 2.16.84 0.1.854474.3.579.2.593 1954 Unknown [id number] 2.16.84 0.1.575271.3.579.2.593 1954 Unknown [id number] 2.16.84 0.1.384957.3.579.2.593 1954 Unknown [id number] 2.16.84 0.1.795155.3.579.2.593 1954 Unknown [id number] 2.16.84 0.1.740703.3.579.2.593 1954 Unknown [id number] 2.16.84 0.1.429651.3.579.2.593 1954 Unknown [id number] 2.16.84 0.1.477846.3.579.2.593 1954 Unknown [id number] 2.16. 840.1.547225.3.579.2.732 1954 Unknown [id number] 2.16. 840.1.678623.3.579.2.732 1954 Unknown [id number] 2.16. 840.1.993190.3.579.2.356 1954 Unknown [id number] 2.16. 840.1.973744.3.579.2.196 1954 Unknown [id number] 2.16. 840.1.087665.3.579.2.196 1954 Unknown [id number] 2.16. 840.1.283430.3.579.2.196 1954 Unknown [id number] 2.16. 840.1.510853.3.579.2.196 1954 Unknown [id number] 2.16. 840.1.575090.3.579.2.594 1954 Unknown [id number] 2.16.8 40.1.545551.3.579.2.173 1954 Unknown [id number] 2.16.8 40.1.403418.3.579.2.173 1954 Unknown [id number] 2.16.8 40.1.078236.3.579.2.173 1954 Unknown [id number] 2.16.8 40.1.235837.3.579.2.173 1954 Unknown [id number] 2.16.8 40.1.580840.3.579.2.173 1954 Unknown [id number] 2.16.8 40.1.404736.3.579.2.173 1954 Unknown [id number] 2.16.8 40.1.386355.3.579.2.173 1954 Unknown [id number] 2.16.8 40.1.799904.3.579.2.173 1954 Unknown [id number] 2.16.8 40.1.636580.3.579.2.173 1954 Unknown [id number] 2.16.8 40.1.445362.3.579.2.173 Unknown [id number] 2.16.8 40.1.378944.3.579.2.531 Unknown [id number] 2.16.8 40.1.948009.3.579.2.531 Unknown [id number] 2.16.8 40.1.888323.3.579.2.531 Social History Date Type Detail Facility Tobacco smoking stat [facility] Tobacco smoking consumption unknown [facility] Start: 1955 Sex Assigned At Female [facility] Start: 1955 Sex Assigned At Not on file [facility] Phone: Start: 08-04-2021 End: 10-13-2022 Exposure to SARS-CoV-2 (event) Not sure [facility] Phone: Start: 09-03-2021 End: 09-18-2022 Tobacco smoking status PAIS Ex-smoker [facility] End: 09-03-2013 History of tobacco use Current smoker [facility] Phone: Start: 09-03-2021 End: 02-06-2022 Cigarettes smoked current (pack per day) - Reported 1 [facility] Phone: Start: 09-03-2021 End: 02-06-2022 Tobacco use and exposure Smokeless tobacco non-user [facility] Phone: End: 09-03-2013 History of tobacco use Cigarette Smoker [facility] Phone: Start: 10-13-2022 Sex Assigned At [facility] [employer] [facility] Other Start: 09-25-2020 Gender identity Identifies as female gender (finding) [facility] Start: 10-13-2022 Alcohol intake Ex-drinker (finding) [facility] Medical Equipment Procedure Code Equipment Code Equipment Origin al Text Equipment Identifier Dates Decompression, spine, cervical, posterior approach CANCELLOUS 7.5 CRUSHED FDA Start: 09-15-2022 Decompression, spine, cervical, posterior approach Spinal fusion graft kit [id number] FDA Start: 09-15-2022 Decompression, spine, cervical, posterior approach Intervertebral-body internal spinal fixation system [id number] FDA Start: 09-15-2022 Decompression, spine, cervical, posterior approach Internal spinal fixation system cable, sterile ()[id number] FDA Start: 09-15-2022 Decompression, spine, cervical, posterior approach CANCELLOUS 7.5 CRUSHED FDA Start: 09-15-2022 Goals Date Patient Goal Desired Activity /State Functional Status Date Assessment Result Facility 09-26-2022 Functional status Patient is Pro gressing Toward Baseline [facility] Work Phone: 09-17-2022 Functional status Patient at Baseline [facility] Work Phone: 09-10-2022 Functional status Patient Not at Baseline [facility] Work Phone: Mental Status Date Assessment Result Facility 09-26-2022 Cognitive function Cognitive Sta tus Patient at Baseline [facility] Work Phone: 09-17-2022 Cognitive function Cognitive Sta tus Patient at Baseline [facility] Work Phone: 09-10-2022 Cognitive function Cognitive Sta s Patient at Baseline [facility] Work Phone: Clinical Notes 07-14-2021 to 03-12-2023 [...] Slow wean once Rheum has initiated therapy [facility] Other [id number] Evaluation note* Encounter Date Diagnosis Assessment Notes [...] wean steroids, which increase risk of infection [facility] Other 11-08-2023 Evaluation note* Encounter Date Diagnosis Assessment Notes Treatment Notes Treatment Clinical Notes Jan, Lumbar spondylosis (ICD-10 - M47.816) [facility] Other 10-12-2023 Evaluation note* Encounter Date Diagnosis [...] in remission (ICD-10 - F17.211) Maintain abstinence [facility] Other 10-10-2023 Evaluation note* Encounter Date Diagnosis [...] M19.011) Dec, Physical deconditioning (ICD-10 - R53.81) [facility] Other 08-07-2023 Hospital Discharge instructions* Discharge Instructions* [...] sent through Care Everywhere. * Chronic Pain (French) [facility] course Narrative* Namrata Powell DO - 10/17/2022 11:27 AM EDT Hospital Medicine Discharge Summary Patient: Miriam German DOB: 1955, Date of face to face patient encounter: 10/17/2022 Admission Details Admit Date 10/13/2022 Discharge Date 10/17/2022 Inpatient Days 3 Summary of Hospitalization Dear Doctors, I recently had the opportunity to care for Miriam German during her recent hospital stay at [facility]. As you may know, Miriam German [...] Skilled therapy is anticipated upon discharge to [facility] There is no height or weight on file to calculate BMI. Upon discharge the patient's code was [id number] Please see the remainder of this document for relevant data from this admission as well as the patient's discharge instructions and follow-up appointments. An electronic copy of the patient's recordscan be obtained via [facility] at [email or web address] It has been my pleasure participating in [...] erythema Skin: No jaundice or rash Neuro: energy conservation technician 3-7, 9-11 intact and equal. Strength grossly [...] future appointments. Bhumika Stacy DO [address] [facility] [address] Follow up Please call to schedule an appointment with your, PCP within 7-10 days. [facility] [place] [address] [place] [address] Fax: [phone] Follow up [facility] [address] [address] Follow up - Please have [...] Commonly known as: ULTRAM [facility] Miscellaneous Notes* Plan of Care - [...] be discharge to home. [facility] Plan of care note* Plan of Care [...] reluctance/inability to perform verbalization of pain descriptors [facility] History of Present illness Narrative* Ranjana Escalante [...] Psych: Ox3, appropriate affect and cognition Neuro: energy conservation technician 3-7, 9-11 intact and equal. decreased motor [...] OT clinical judgment, discharge destination recommendation is: [facility]iary Facility Barriers to discharge home: Patient needs [...] and Edema: Mobility Assessment/Intervention: Scooting Bridging Mobility Magoffin Level: Scooting/Bridging: maximum assist (25% patient effort) Physical Assist: Scooting/Bridgin person assist Bed Features/Set-up: Scooting/Bridging: Other, see comments (pt up in chair upon arrival, assist for optimal positioning in chair) Skilled Rationale: Positioning Skilled Intervention/Details: Scooting/Bridging: facilitated optimal positioning in chair utilizingchair features Transfer Assessment/Intervention: Functional Mobility: Outcome Score(s): CURRENT [facility] Daily Activity Inpatient Short Form Putting on/Taking Off Lower Body Clothin - Total Assistance Bathin - Total Assistance Toiletin - Total Assistance Putting on/Taking Off Upper Body Clothin - Total Assistance Groomin - A Lot of Assistance Eatin - A Lot of Assistance CURRENT [facility] Activity Raw Score: 8 CURRENT [facility] Activity Functional Limitation/Modifier: 85.69% Currently Impaired in [...] Guerrero OTR/L License # [id number] Pager: [phone] Upon discontinuation of Acute Care Occupational Therapy Services or patient discharge from the hospital this note represents the current Occupational Therapy Discharge Summary. * Cydney Wilder - 10/16/2022 9:38 AM EDT 10/16/22 0937 Transport Request Mode of Transfer BLS Name of Discharge Transport Company [facility] (trip #[id number]) Discharge Transport ETA 10/17 at 10a Scheduled per CM. Cancelled [facility] on 10/20. Cydney Hicks Case Management Assistant Clinical Director * RADHA Ayala - 10/15/2022 5:37 PM EDT Placement Plan Expected Discharge Date: 10/20/22 Referred Level of Care: SNF Barriers: Transport Current Referrals and Status 1. [facility] ([facility]) advised by [facility] to schedule ambulance transport to SNF. SW scheduled the earliest available trip for 1000 on Thursday, 10/[address] SW updated CCM and bedside RN. will contact additional ambulance providers in an attempt to find an earlier time. RON Villar, TRAIN STATION AGENT Medical Social Work * Leyla Womack RN - 10/15/2022 4:07 PM EDT Discharge Planning Patient Assessment Admission Assessment Patient Assessment Completed: Focused Anticipated discharge disposition: [facility] Reason for Admission: Back pain, deconditioning Is the patient able to participate in the assessment?: Yes Information source: Patient Information Source Name/Contact: Miriam German- [phone] Demographics Verified and Updated: Yes Has the [...] Yes Name and Contact information: Branden Lucero- [phone] Would you like to add additional adult children?: Yes Name and Contact information: Geremias Azeem- [phone] Reviewed and Updated in Demographics? : Yes Outpatient Providers Does patient have a primary care physician? : Yes When was the patient's last PCP visit?: > 30 days Does the patient follow any specialists?: Yes Reviewed and updated Care Team?: Yes Patient Care Team: Bhumika Stacy, DO as PCP - General (Internal Medicine) Environment/Caregivers Is the patient from a facility or [place] [facility] [place]?: Yes Facility Level of Care: Skilled Name [...] the patient on Anticoagulation? : No [id number] [place] [address] - [address] [place] [address] [facility] [place] [address] Coping/Stress Concerns about patient s coping and stress?: No Initial Discharge Planning Anticipated discharge disposition: [facility] Transportation Available for Discharge: Ambulance Anticipated DME: none Patient Assessment Completed: Focused Risk of Readmission: 4.8 Category Reference: High:16-100 Mod-High:10-16 Mod-Low: 5-10 Low: 0-5 Expected Discharge Date: Readmission Summary and Discharge Planning Narrative Anticipate this patient will dc to SNF. requested referral to [facility]. Referral sent. No other plans for surgical intervention . Case Management Plan 1.Contact information shared and role of clinical registered nurse hh case manager explained while admitted to [facility] 2.PCP/Specialist/pharmacy information updated 3. Patient demographic/address/emergency contact information verified 4.bankruptcy manager will continue to follow with medical team to coordinate discharge planning and arrange necessary follow up. 5. No immediate needs or concerns to be addressed at this time. Leyla SALDANA RN Clinical Kindergarten Classroom Teacher [phone] Available on secure chat. * Aren Rico [...] Psych: Ox3, appropriate affect and cognition Neuro: energy conservation technician 3-7, 9-11 intact and equal. decreased motor strength in upper and lower ext Data Review * Julia Guerrero, OT - 10/15/2022 7:26 AM EDT Acute Occupational Therapy Evaluation Prior to Admission AM-PAC Score: PRIOR LEVEL AM-PAC Activity Raw Score: 24 Current AM-PAC score(s): CURRENT AM-PAC Activity Raw Score: 7 Based on the above AM-PAC score(s) and OT clinical judgment, discharge destination recommendation is: Penitentiary Facility Barriers to discharge home: Patient needs [...] SNF. IADL History IADLs: independent Primary Language: French Home Management Skills: independent Medication Management: independent [...] noted Mobility Assessment: Supine to Sit Mobility Magoffin Level: Supine->Sit: maximum assist (25% patient effort) Physical Assist: Supine->Sit: 2 person assist Bed Features/Set-up: Supine->Sit: Head of bed elevated Skilled Rationale: Hand placement, Technique of activity, Cues for increased safety Skilled Intervention/Details: Supine->Sit: required facilitation for bilat LE and trunk elevation Sit to Supine Mobility Magoffin Level: Sit->Supine: maximum assist (25% patient effort) Physical Assist: Sit->Supine: 2 person assist Bed Features/Set-up: Sit->Supine: Flat Skilled Rationale: Positioning, Verbal cues, Technique of activity Skilled Intervention/Details: Sit->Supine: required assist to guide trunk and elevate bilat LE to bed Outcome Score(s): CURRENT [facility] Daily Activity Inpatient Short Form Putting on/Taking Off Lower Body Clothin - Total Assistance Bathin - Total Assistance Toiletin - Total Assistance Putting on/Taking Off Upper Body Clothin - Total Assistance Groomin - Total Assistance Eatin - A Lot of Assistance CURRENT [facility] Activity Raw Score: 7 CURRENT [facility] Activity Functional Limitation/Modifier: 92.44% Currently Impaired in [...] Acute Physical Therapy Evaluation Prior to Admission [facility] score(s): PRIOR LEVEL AM-PAC Mobility Raw Score: 24 Current AM-PAC score(s): CURRENT AM-PAC Mobility Raw Score: 7 Based on the above AM-PAC score(s) and PT clinical judgment, patient is a good candidate for discharge to [facility] return Barriers to discharge home: Patient [...] given Mobility Assessment: Supine to Sit Mobility Mag[place]in Level: Supine->Sit: maximum assist (25% patient effort) Physical Assist: Supine->Sit: 2 person assist Bed Features/Set-up: Supine->Sit: Head of bed elevated Skilled Rationale: Hand placement, Technique of activity, Cues for increased safety Skilled Intervention/Details: Supine->Sit: required facilitation for bilat LE and trunk elevation Sit to Supine Mobility Mag[place]in Level: Sit->Supine: maximum assist (25% patient effort) [...] assist for eating yogurt Outcome Score(s): CURRENT [facility] Basic Mobility Inpatient Short Form Turning over in bed: 2 - A Lot of Assistance Sitting/standing from chair: 1 - Total Assistance Moving from lying on back to sittin - Total Assistance Moving to and from bed to chair: 1 - Total Assistance Walk in hospital room: 1 - Total Assistance Climbing 3-5 steps with a railin - Total Assistance CURRENT [facility] Mobility Raw Score: 7 CURRENT [facility] Mobility Functional Limitation/Modifier: 92.36% Currently Impaired in [...] Therapy Discharge Summary. [facility] Plan of care note* Plan of [...] outcomes by discharge/transition of care. Outcome: Ongoing [facility]07-27-2023 Plan of care note* Plan of Care - Cassandra Neely RN - 10/16/2022 5:12 PM EDT Problem: Patient Care Overview Goal: Plan of Care Review Outcome: Ongoing [facility]07-27-2023 Plan of care note* Plan of [...] UE ROM/coordination/strength for ADL participation. Outcome: Ongoing [facility]07-27-2023 Plan of care note* Plan of [...] 10/16/2022 140 by ALVARADO Olivares Outcome: Ongoing [facility]07-26-2023 Plan of care note* Plan of [...] Ongoing Goal: Interdisciplinary Rounds/Family Conf Outcome: Ongoing [facility]07-26-2023 Plan of care note* Plan of [...] of care. Outcome: Met This Shift [facility]07-26-2023 Hospital Discharge instructions* Discharge Instructions* Kareen Barcenas RN - 10/15/2022 12:03 PM EDT Patient Experience Survey Reminder You may receive a survey in the mail within a few weeks regarding your hospitalization. This helps us to improve the care and services we provide at [facility]. We truly appreciate you taking the time to fill this out. We particularly welcome any specific comments you may have (good or bad!) regarding your experienceat [facility] so that we may use them to continue to strive towards excellence for our patients. * Attachments The following attachments cannot be sent through Care Everywhere. * [facility] ([facility]) (French) documented in this encounterOSU [facility] Plan of care note* Plan of [...] questions. Josesito Martin MD, Neurosurgery NS3 ([id number]) [facility] Work Phone: 1(383) 890-298707-26-2023 Plan of care note* Plan of Care [...] UE ROM/coordination/strength for ADL participation. Outcome: Ongoing [facility]07-26-2023 Plan of care note* Plan of [...] ROM, necessary for functional mobility. Outcome: Ongoing [facility]07-25-2023 Nurse procedure note* Significant Event - [...] put this code status in the chart. [facility] Work Phone: 1(924) 134-588107-25-2023 History and physical note* Kelsie Wills MD - 10/14/2022 1:16 PM EDT Hospital Medicine Admission History & Physical Patient: Miriam German, 1955, [id number] Physician: Kelsie Wills MD, Attending Physician, Pager #[phone], med 2 service Date of face to [...] female that has been admitted to [facility]. This is a 67-year-old female past [...] erythema: Skin: No jaundice or rash Neuro: energy conservation technician 3-7, 9-11 intact and equal. Strength grossly [...] performed during the hospital encounter of 10/13/22 [facility] 7 - ED Result Value Ref [...] 0.40 (L) 1.16 - 3.51 K/uL Abs Beltrami Auto 0.09 (L) 0.22 - 0.87 K/uL [...] Negative Negative Ketones Urine Negative Negative Specific Brielle Urine 1.010 1.001 - 1.035 Blood Urine [...] ABSENT ECG none Signed, Kelsie Wills MD [facility]07-25-2023 History and physical note* Kelsie Wills MD - 10/14/2022 1:16 PM EDT Hospital Medicine Admission History & Physical Patient: Miriam German, 1955, [id number] Physician: Kelsie Wills MD, Attending Physician, Pager #[phone], med 2 service Date of face to [...] female that has been admitted to [facility]. This is a 67-year-old female past [...] erythema: Skin: No jaundice or rash Neuro: energy conservation technician 3-7, 9-11 intact and equal. Strength grossly [...] performed during the hospital encounter of 10/13/22 [facility] 7 - ED Result Value Ref [...] 0.40 (L) 1.16 - 3.51 K/uL Abs Beltrami Auto 0.09 (L) 0.22 - 0.87 K/uL [...] Negative Negative Ketones Urine Negative Negative Specific Brielle Urine 1.010 1.001 - 1.035 Blood Urine [...] Kelsie Wills MD documented in this encounterU [facility] Progress note* Certification - Kelsie Wills MD - 10/14/2022 1:10 PM EDT I certify that this patient requires inpatient services at this time. I anticipate the expected length of stay will include at least two midnights. Inpatient services are due to the following medicalconcerns extermity numbness . Plans for post hospitalization care will be discharge to home. [facility]07-25-2023 Emergency department Note* Loni Clark RN - 10/14/2022 10:06 AM EDT Pt screaming out to staff that she would like to leave. MD Dominguez aware. Pt was informed the team would like to admit her to provide PT and OT in hopes of restoring pts mobility. Pt angry and demanding to speak to a real doctor . [facility]07-25-2023 Emergency department Note* Loni Clark RN [...] extremity weakness in the setting of recent [id number] at an outside hospital. MRI did show [...] edema and fluid collection. MRI obtained from [facility] and reads reviewed. Concern for cauda equina [...] WITHOUT CONTRAST XR SPINE CERVICAL 4 VIEWS [facility] 7 - ED CBC, EDIF, PLATELET [...] making process. This note was dictated using Integrated biometrics Dictation Software. Attempts at proofreading have been made, however errors may still occasionally occur. Monalisa Suarez MD Resident 10/13/22 0745 * Linnea Caro RN - 10/13/2022 9:40 PM EDT Bed: E041 Expected date: 10/13/22 Expected time: 12:00 AM Means of arrival: Comments: [facility] * Willow Lindquist RN - 10/13/2022 9:30 PM EDT Transfer Center Intake Note [phone] Triage Line [phone] Bed Placement REMINDER to TC research consultant: please request facesheet, images, and discharge summary if inpatient. Pt Current Location/ Level of care: ED If Inpatient transfer, Date of admission to OSH: N/A Clinical reason for transfer: Need for neurosurg eval HPI: 1 mo ago C-2 ([facility]) surgery, spine fusion. Tingling, numbness bilat hands. Progressive numbness/tingling to LE. Follow up and parted ways per family. Nonambulatory since surgery. Unable to lift legs off bed or feed self. [facility] refused pt. [facility] spoke with collegue. States since pt does not want to follow with Dr. 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 Normal WBC IV drips: Decadron, Tylenol Respiratory Support device: NC settings: 2 L Other equipment: Medical Cost Consultant Isolation None and ADA needs: bed bound Triaged to: TBD If PCU, please describe reason: Evelyn Quinonez RN documented in this encounterOSU [facility] Physician Emergency department Note* Ameena Johnson [...] extremity weakness in the setting of recent G4kcmpace at an outside hospital. MRI did show edema around the cord and did receive Decadron. [facility]. Patient evaluated by Neurosurgery who recommended admission to Medicine and conservative treatment at this time and no evidence of acute operative emergency at this time. The expected disposition is: Admit to med Ameena Johnson MD Resident 10/14/22 1216 [facility] Work Phone: [phone] Emergency department Note* Loni Clark RN - 10/14/2022 9:41 AM EDT Unable to obtain blood specimen at this time. PIV's do not draw back, straight sticks also unsuccessful. [facility]07-25-2023 Consult note* Vonnie Alfonso MD - [...] fx s/p C1-2 fusion w/ cerclage at [facility] in [place] on 09/15/22, which was unfortunately complicated by [...] fx s/p C1-2 fusion w/ cerclage at [facility] in [place] on 09/15/22, which was unfortunately complicated by [...] please page covering pager above ## [facility] Work Phone: 1(133) 915-690507-25-2023 Consult note* Vonnie Alfonso MD - 10/14/2022 [...] fx s/p C1-2 fusion w/ cerclage at [facility] in [place] on 09/15/22, which was unfortunately complicated by [...] fx s/p C1-2 fusion w/ cerclage at [facility] on 09/15/22, which was unfortunately complicated [...] covering pager above ## [facility] in [facility]20[facility] Physician Emergency department Note* Flash Farmer [...] MD ED Attending Physician Flash Farmer MD 10/13/226 [facility] Work Phone: [phone] Emergency department Note* Willow Lindquist RN - 10/13/2022 9:54 PM EDT Pt arrives from OSH via medics for numbness/tingling, and weakness to all 4 extremities after having surgery to neck 4 weeks ago. Pt reports pain to extremities when touched. Pt alert and oriented and in NAD at this time. Dr. Suarez at bedside at this time. [facility]2023 Physician Emergency department Note* Monalisa Suarez [...] making process. This note was dictated using Integrated biometrics Dictation Software. Attempts at proofreading have been made, however errors may still occasionally occur. Monalisa Suarez MD Resident 10/13/223 [facility] Work Phone: 1([phone]) 858-500207-24-2023 Emergency department Note* Linnea Caro RN - 10/13/2022 9:40 PM EDT Bed: E041 Expected date: 10/13/22 Expected time: 12:00 AM Means of arrival: Comments[facility] Note* Willow Lindquist RN - 10/13/2022 9:30 PM EDT Transfer Center Intake Note [phone] Triage Line [phone] Bed Placement REMINDER to TC research consultant: please request facesheet, images, and discharge summary if inpatient. Pt Current Location/ Level of care: ED If Inpatient transfer, Date of admission to OSH: N/A Clinical reason for transfer: Need for neurosurg eval HPI: 1 mo ago C-2 ([facility]) surgery, spine fusion. Tingling, numbness bilat hands. Progressive numbness/tingling to LE. Follow up and parted ways per family. Nonambulatory since surgery. Unable to lift legs off bed or feed self. [facility] refused pt. [facility] spoke with gris. States since pt does not want to follow with Dr. 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 Normal WBC IV drips: Decadron, Tylenol Respiratory Support device: NC settings: 2 L Other equipment: Medical Cost Consultant Isolation None and ADA needs: bed bound Triaged to: TBD If PCU, please describe reason: Evelyn Quinonez, RN [facility]07-14-2023 Evaluation note* Encounter Date Diagnosis Assessment [...] was passed on to the nursing team. [facility] Other 07-06-2023 Progress note Author Tom Hill [facility] September 26, 2022 11:45am Note Date/Time September 25, 2022 12:45 pm [facility] [address] [place] [address] Physiatry(Rehab) Progress Note Signed Patient: Miriam German MR#: [id number] : 1955 Acct:[id number] Age/Sex: 67 / F Adm Date: 3 Loc: Room: [address] [place] [address] Type: ADM IN Attending Dr: Tom Hill [...] fracture and operative fixation. She presented to [facility] 2 weeks ago, 09/05 with increased falls and weakness. Eventual MRI imaging demonstrated C2 fracture, and subsequent flexionand extension films confirmed instability. She was transferred to [facility] 09/10 for NSGY evaluation/treatment. After medical clearance, [...] SNF admission. [facility] Chronic conditions as above are [...] mg 09/17/22 16:18 Bisacodyl 10 Mg Supp.Rect MT 09/17/23 16:17 DAILY PRN Constipation Diazepam 2 mg 09/17/22 19:49 09/23/22 05:53 Diazepam 2 Mg Tablet PO 03/16/23 19:48 2 mg Q6H PRN Administration Spasms Docusate Sodium 100 mg 09/17/22 16:18 Docusate 100 Mg Capsule PO 09/17/23 16:17 BID PRN Constipation Docusate Sodium 283 mg 09/17/22 16:18 Docusate Enema 283 Mg/5 Ml Enema MT 09/17/23 16:17 DAILY PRN Constipation Famotidine 20 mg 09/17/22 21:00 09/25/22 08:27 Famotidine 20 Mg Tablet PO 09/17/23 20:59 Not Given Q12HR [facility] Heparin Sodium (Porcine) 5,000 unit 09/18/22 10:00 [...] fracture status post fixation/fusion. 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 Continues to prefer bed level exercises, feels like therapy is pushing her too much , although is able to move a little more than previously. Still nonambulatory. * Will be discharged to SNF of choice tomorrow, [place] EMS to transport. Hospitalist to assist with [...] greater than 15 minutes for services, including tpqm-bi-kdtc encounter with the patient, discussion of the case, plan of care, and exam; and rwbtowi-hg-ceog activities, such as reviewing pertinent brand sales consultant documentation, recent therapy notes, laboratory and radiology studies, and discussion of case with care team including physician, nursing, case therapist, and therapists. More than 50 % of [...] Allied health note review, nursing note review, brand sales consultant note review, discussion with nursing and case management, and more than 50% of my time was spent on counseling and coordination of care, time spent 23 minutes Patient was personally seen by me, Dr. Hill, on the day of encounter, I reviewed the history and the relevant portions of the chart, including current orders, allied health and brand sales consultant notes, labs/imaging and performed lea elements [...] signed by Tom Hill MD> 09/26/22 [address] [facility] Work Phone: 1(114) 568-354507-05-2023 Progress note Author Tom Hill [facility] September 24, 2022 10:18am Note Date/Time September 22, 2022 1:24p m [facility] [address] [place] [address] Physiatry(Rehab) Progress Note Signed Patient: Miriam German MR#: [id number] : 1955 Acct:[id number] Age/Sex: 67 / F Adm Date: 3 Loc: 5T Room: 1L3401-1 Type: ADM IN Attending Dr: Tom Hill [...] fracture and operative fixation. She presented to [facility] 2 weeks ago, 09/05 with increased falls and weakness. Eventual MRI imaging demonstrated C2 fracture, and subsequent flexionand extension films confirmed instability. She was transferred to [facility] 09/10 for NSGY evaluation/treatment. After medical clearance, [...] mg 09/17/22 16:18 Bisacodyl 10 Mg Supp.Rect MT 09/17/23 16:17 DAILY PRN Constipation Dexamethasone 4 [...] 16:18 Docusate Enema 283 Mg/5 Ml Enema MT 09/17/23 16:17 DAILY PRN Constipation Famotidine 20 [...] therapy. Nonambulatory. -Plan is to DC to assisted facility close to home. CM is making [...] greater than 15 minutes for services, including pndf-wc-vhsn encounter with the patient, discussion of the case, plan of care, and exam; and ohxvszw-wa-yqbt activities, such as reviewing pertinent brand sales consultant documentation, recent therapy notes, laboratory and radiology studies, and discussion of case with care team including physician, nursing, case therapist, and therapists. More than 50 % of [...] Allied health note review, nursing note review, brand sales consultant note review, discussion with nursing and case management, and more than 50% of my time was spent on counseling and coordination of care, time spent 23 minutes Patient was personally seen by me, Dr. Hill, on the day of encounter, I reviewed the history and the relevant portions of the chart, including current orders, allied health and brand sales consultant notes, labs/imaging and performed lea elements of exam and I formulated the plan of care and facilitated the medical decision making. Documented By: Rubia George APRN 09/22/22 1 315 Signed By: <Electronically signed by GAETANO George> 09/22/22 1337 <Electronically signed by Tom Hill MD> 09/24/22 [address] [facility] Work Phone: 1(202) 880-328007-02-2023 Progress note Author Tom Hill [facility] September 21, 2022 10:55am Note Date/Time September 21, 2022 8:44a m [facility] [address] [place] [address] Physiatry(Rehab) Progress Note Signed Patient: Miriam German MR#: [id number] : 1955 Acct:[id number] Age/Sex: 67 / F Adm Date: 3 Loc: Room: [address] [place] [address] Type: ADM IN Attending Dr: Tom Hill MD Copies to: ~ Date of Service: 09/21/2022 Subjective Subjective Narrative: Ms. German is a 67 year old female with medical history of COVID-19 long- hauler, COPD, obstructive sleep apnea, rheumatoid arthritis on chronic prednisone admitted to the rehabilitation unit with cervical myelopathy after a C2 fracture and operative fixation. She presented to [facility] 2 weeks ago, 09/05 with increased falls and weakness. Eventual MRI imaging demonstrated C2 fracture, and subsequent flexionand extension films confirmed instability. She was transferred to [facility] 09/10 for NSGY evaluation/treatment. After medical clearance, [...] mg 09/17/22 16:18 Bisacodyl 10 Mg Supp.Rect MT 09/17/23 16:17 DAILY PRN Constipation Dexamethasone 2 [...] 16:18 Docusate Enema 283 Mg/5 Ml Enema MT 09/17/23 16:17 DAILY PRN Constipation Famotidine 20 [...] Allied health note review, nursing note review, brand sales consultant note review, discussion with nursing and case management, and more than 50% of my time was spent on counseling and coordination of care, time spent 25 minutes Patient was personally seen by me, Dr. Hill, on the day of encounter, I reviewed the history and the relevant portions of the chart, including current orders, allied health and brand sales consultant notes, labs/imaging and performed lea elements of exam and I formulated the plan of care and facilitated the medical decision making. Documented By: Tom Hill MD 09/21/22 0844 Signed By: <Electronically signed by Tom Hill MD> 09/21/22 1052 [facility] Work Phone: 1([phone] 260-235806-29-2023 Consult note Author Adam Estrella [facility] September 18, 2022 5:32pm Note Date/Time September 18, 2022 4:47 pm [facility] [address] [place] [address] Hospitalist Consult Note Signed Patient: Miriam German MR#: [id number] : 1955 Acct:[id number] Age/Sex: 67 / F Adm Date: 3 Loc: Room: [address] [place] [address] Type: ADM IN Attending Dr: Tom Hill [...] hypertension who presented as a transfer from [facility] on 09/10/2022, where she was hospitalized as [...] negative unless noted in the HPI below [facility] Attestation Statement: The following information was validated [...] mg 09/17/22 16:18 Bisacodyl 10 Mg Supp.Rect MT 09/17/23 16:17 DAILY PRN Constipation Dexamethasone 2 [...] 16:18 Docusate Enema 283 Mg/5 Ml Enema MT 09/17/23 16:17 DAILY PRN Constipation Famotidine 20 [...] % (Auto) 81.9, Lymph % (Auto) 9.2, [place] % (Auto) 8.3, Eos % (Auto) 0.0, Baso % (Auto) 0.6, Nucleat RBC Rel Count 0.1, Neut # (Auto) 9.9 H, Lymph # (Auto) 1.1, [place] # (Auto) 1.0 H, Eos # (Auto) [...] signed by Adam Estrella DO> 09/18/22 1732 [facility] Work Phone: 1([phone] 229-299306-29-2023 Progress note Author Ailyn Hermosillo [facility] September 18, 2022 11:47am Note Date/Time September 18, 2022 10:4 3am [facility] [address] [place] [address] Pulmonology Progress Note Signed Patient: Miriam German MR#: [id number] : 1955 Acct:[id number] Age/Sex: 67 / F Adm Date: 3 Loc: Room: [address] [place] [address] Type: ADM IN Attending Dr: Tom Hill [...] <Electronically signed by DO OCTAVIO Garcia> 09/18/22 1110 [facility] Work Phone: [phone] 141-357206-29-2023 History and physical note Author Tom Hill [facility] September 18, 2022 8:00am Note Date/Time September 18, 2022 7:12 am [facility] [address] [place] [address] Physiatry (Rehab) H&P Signed Patient: Miriam German MR#: [id number] : 1955 Acct:[id number] Age/Sex: 67 / F Adm Date: 3 Loc: Room: [address] [place] [address] Type: ADM IN Attending Dr: Tom Hill [...] fracture and operative fixation. She presented to [facility] 2 weeks ago, 09/05 with increased falls and weakness. Eventual MRI imaging demonstrated C2 fracture, and subsequent flexionand extension films confirmed instability. She was transferred to [facility] 09/10 for NSGY evaluation/treatment. After medical clearance, underwent C2 sublaminar wire with allograft fusion 09/15. Postoperative course without significant complications aside from pain/anxiety. Her respiratory status is stable. Home prednisone is on hold until completes decadron taper. Cleared for DVT prophylaxis. Anxious, tearful on admission, repots 10/10 pain. RN called requesting new orders. Chronic conditions as above are stable. [facility] Attestation Statement: The following information was validated [...] 2.5 Mg Tablet) 2.5 mg PO DAILY [facility] Stop: 09/18/23 08:59 Bisacodyl (Bisacodyl 10 Mg Supp.Rect) 10 mg MT DAILY PRN PRN Reason: Constipation Stop: 09/17/23 16:17 Dexamethasone (Dexamethasone 1 Mg Tablet) 1 mg PO QID [facility]; Taper Stop: 09/26/22 21:59 Diazepam (Diazepam 2 Mg Tablet) 2 mg PO Q6H PRN PRN Reason: Spasms Stop: 03/16/23 19:48 Last Admin: 09/17/22 20:01 Dose: 2 mg Docusate Sodium (Docusate 100 Mg Capsule) 100 mg PO BID PRN PRN Reason: Constipation Stop: 09/17/23 16:17 Docusate Sodium (Docusate Enema 283 Mg/5 Ml Enema) 283 mg MT DAILY PRN PRN Reason: Constipation Stop: 09/17/23 16:17 Famotidine (Famotidine 20 Mg Tablet) 20 mg PO Q12HR [facility] Stop: 09/17/23 20:59 Last Admin: 09/17/22 20:01 Dose: 20 mg Heparin Sodium (Porcine) (Heparin 5,000 Unit/Ml Vial) 5,000 unit SUBCUT Q8HR [facility] Stop: 09/18/23 09:59 Lactulose (Lactulose 20 Gm/30 [...] 10 Mg Tablet) 10 mg PO BID [facility] Stop: 09/27/23 08:59 Senna/Docusate Sodium (Sennosides/Docusate 8.6-50mg 1 Tab Tablet) 2 tab PO BID [facility] Stop: 09/17/23 20:59 Last Admin: 09/17/22 20:01 [...] % (Auto) 81.9 Lymph % (Auto) 9.2 [place] % (Auto) 8.3 Eos % (Auto) 0.0 Baso % (Auto) 0.6 Nucleat RBC Rel Count 0.1 Neut # (Auto) 9.9 H Lymph # (Auto) 1.1 [place] # (Auto) 1.0 H Eos # (Auto) [...] days Expected Discharge Destination: Home Rehabilitation [facility]: Primary Diagnosis: Cervical myelopathy s/p C2 [...] 24 hour daily monitoring and intervention from Scow Derrick Operator as well as other consulting physicians including internal medicine as well as 24 hour daily head of transport logistics nursing - for medical safe / optimal [...] Allied health note review, nursing note review, brand sales consultant note review, discussion with nursing and case management, and more than 50% of my time was spent on counseling and coordination of care, time spent 75 minutes Patient was personally seen by me, Dr. Hill, on the day of encounter, within 24hours of rehab admission, reviewed the history and the relevant portions of the chart, including current orders, allied health and brand sales consultant notes, labs/imaging and performed lea elements of exam and I formulated the plan of care and facilitated the medical decision making. Documented By: Tom Hill MD 09/18/22 0710 Signed By: <Electronically signed by Tom Hill MD> 09/18/22 0800 [facility] Work Phone: [phone] 106-404106-28-2023 Discharge summary Author Moises Garcia [facility] September 17, 2022 2:06pm Note Date/Time September 17, 2022 2:06 pm [facility] [address] [place] [address] Discharge Summary Signed Patient: Miriam German MR#: [id number] : 1955 Acct:[id number] Age/Sex: 67 / F Adm Date: 3 Loc: 4 Room: [address] [place] [address]: Arnaud Max MD Copies to: [...] Course Hospital course: Patient was transferred from [facility] as an inpatient on 09/10/2022. On09/15/2022 patient [...] Discharge Plan Discharge Plan Patient Disposition: Rehab [facility] Activity: No Activity Restriction Diet: Regular Additional [...] Rehab.) Documented By: Moises Garcia MD 09/17/22 7465 Signed By: <Electronically signed by MD Moises Garcia> 09/17/22 1406 [facility] Work Phone: 1(226) 442-776206-28-2023 Progress note Author Moises Garcia [facility] September 17, 2022 2:05pm Note Date/Time September 17, 2022 2:05 pm [facility] [address] [place] [address] Neurosurgery Progress Note Signed Patient: Miriam German MR#: [id number] : 1955 Acct:[id number] Age/Sex: 67 / F Adm Date: 3 Loc: Room: [address] [place] [address] Type: ADM IN Attending Dr: Arnaud Max [...] <Electronically signed by MD Moises Garcia> 09/17/22 1401 [facility] Work Phone: [phone]) [phone] Progress note Author Ailyn Hermosillo [facility] September 16, 2022 3:47pm Note Date/Time September 16, 2022 3:47 pm [facility] [address] [place] [address] Pulmonology Progress Note Signed Patient: Miriam German MR#: [id number] : 1955 Acct:[id number] Age/Sex: 67 / F Adm Date: 3 Loc: Room: [address] [place] [address] Type: ADM IN Attending Dr: Arnaud Max [...] signed by Ailyn Hermosillo MD> 09/16/22 1547 [facility] Work Phone: [phone] Progress note Author Arnaud Max [facility] September 16, 2022 1:31pm Note Date/Time September 16, 2022 1:31 pm [facility] [address] [place] [address] Hospitalist Progress Note Signed Patient: Miriam German MR#: [id number] : 1955 Acct:[id number] Age/Sex: 67 / F Adm Date: 3 Loc: Room: [address] [place] [address] Type: ADM IN Attending Dr: Arnaud Max [...] 08:59 DAILY PRN Magnesium < 1.6 Ipratropium [place] 0.5 mg 09/11/22 20:00 09/16/22 12:03 Ipratropium [place] 0.5 Mg/2.5 Ml Vial.Neb INHALATION 09/11/23 19:59 [...] <Electronically signed by Arnaud Max MD> 09/16/221 [facility] Work Phone: 1(119) 279-113006-27-2023 Progress note Author Moises Garcia [facility] September 16, 2022 7:37am Note Date/Time September 16, 2022 7:37 am [facility] [address] [place] [address] Neurosurgery Progress Note Signed Patient: Miriam German MR#: [id number] : 1955 Acct:[id number] Age/Sex: 67 / F Adm Date: 3 Loc: Room: [address] [place] [address] Type: ADM IN Attending Dr: Arnaud Max [...] % (Auto) 92.1, Lymph % (Auto) 4.4, [place] % (Auto) 3.3, Eos % (Auto) 0.0, Baso % (Auto) 0.2, Nucleat RBC Rel Count 0.0, Neut # (Auto) 14.2 H, Lymph #(Auto) 0.7 L, [place] # (Auto) 0.5, Eos # (Auto) 0.0, [...] signed by MD Moises Garcia> 09/16/22 0737 [facility] Work Phone: 1(119) [phone] Progress note Author Arnaud Max [facility] September 15, 2022 6:20pm Note Date/Time September 15, 2022 6:20 pm [facility] [address] [place] [address] Hospitalist Progress Note Signed Patient: Miriam German MR#: [id number] : 1955 Acct:[id number] Age/Sex: 67 / F Adm Date: 3 Loc: Room: [address] [place] [address] Type: ADM IN Attending Dr: Arnaud Max [...] 07:59 100 mls/hr Q8H CECI Administration Ipratropium [place] 0.5 mg 09/11/22 20:00 09/15/22 17:06 Ipratropium [place] 0.5 Mg/2.5 Ml Vial.Neb INHALATION 09/11/23 19:59 [...] <Electronically signed by Arnaud Max MD> 09/15/22 1824 [facility] Work Phone: [phone]) 451-845106-26-2023 Hospital Discharge instructions Additional Instructions REHAB TO [...] precautions [facility] Work Phone: 1(227) 137-568406-25-2023 Progress note Author Boni Lincoln [facility] September 14, 2022 5:21pm Note Date/Time September 14, 2022 5:21 pm [facility] [address] [place] [address] Hospitalist Progress Note Signed Patient: Miriam German MR#: [id number] : 1955 Acct:[id number] Age/Sex: 67 / F Adm Date: 3 Loc: Room: [address] [place] [address] Type: ADM IN Attending Dr: Boni Lincoln [...] No clubbing, cyanosis or edema NEUROLOGICAL: Decreased senior industrial engineer strength right upper extremity compared to the [...] 08:59 DAILY PRN Magnesium < 1.6 Ipratropium [place] 0.5 mg 09/11/22 20:00 09/14/22 15:49 Ipratropium [place] 0.5 Mg/2.5 Ml Vial.Neb INHALATION 09/11/23 19:59 [...] signed by Boni Lincoln DO> 09/14/22 1721 [facility] Work Phone: [phone] Progress note Author Boni Lincoln [facility] September 13, 2022 4:52pm Note Date/Time September 13, 2022 4:52 pm [facility] [address] [place] [address] Hospitalist Progress Note Signed Patient: Miriam German MR#: [id number] : 1955 Acct:[id number] Age/Sex: 67 / F Adm Date: 3 Loc: Room: [address] [place] [address] Type: ADM IN Attending Dr: Boni Lincoln [...] No clubbing, cyanosis or edema NEUROLOGICAL: Decreased senior industrial engineer strength right upper extremity compared to the [...] 08:59 DAILY PRN Magnesium < 1.6 Ipratropium [place] 0.5 mg 09/11/22 20:00 09/13/22 16:16 Ipratropium [place] 0.5 Mg/2.5 Ml Vial.Neb INHALATION 09/11/23 19:59 [...] <Electronically signed by Boni Lincoln DO> 09/13/22 4001 [facility] Work Phone: 1([phone]) 128-213906-23-2023 Progress note Author Boni Lincoln [facility] September 12, 2022 6:26pm Note Date/Time September 12, 2022 6:26 pm [facility] [address] [place], [place] [address] Hospitalist Progress Note Signed Patient: Miriam German MR#: [id number] : 1955 Acct:[id number] Age/Sex: 67 / F Adm Date: 3 Loc: 4 Room: [address] [place] [address] Type: ADM IN Attending Dr: Boni Lincoln [...] No clubbing, cyanosis or edema NEUROLOGICAL: Decreased senior industrial engineer strength right upper extremity compared to the [...] 08:59 DAILY PRN Magnesium < 1.6 Ipratropium [place] 0.5 mg 09/11/22 20:00 09/12/22 15:56 Ipratropium [place] 0.5 Mg/2.5 Ml Vial.Neb INHALATION 09/11/23 19:59 [...] <Electronically signed by Boni Lincoln DO> 09/12/22 1820 [facility] Work Phone: 1(671) 680-677906-23-2023 Progress note Author Kira Azar [facility] September 12, 2022 4:07pm Note Date/Time September 12, 2022 4:07 pm [facility] [address] [place] [address] Anesthesia Progress Note Signed Patient: Miriam German MR#: [id number] : 1955 Acct:[id number] Age/Sex: 67 / F Adm Date: 3 Loc: Room: [address] [place] [address] Type: ADM IN Attending Dr: Boni Lincoln [...] is a chronic retainer. She presented to [facility] and was transferred over after having IV [...] <Electronically signed by Kira Azar, > 09/12/22 0480 [facility] Work Phone: [phone]) 540-815606-23-2023 Progress note Author Ailyn Hermosillo [facility] September 12, 2022 1:44pm Note Date/Time September 12, 2022 1:44 pm [facility] [address] [place] [address] Pulmonology Progress Note Signed Patient: Miriam German MR#: [id number] : 1955 Acct:[id number] Age/Sex: 67 / F Adm Date: 3 Loc: Room: [address] [place] [address] Type: ADM IN Attending Dr: Boni Lincoln [...] signed by Ailyn Hermosillo MD> 09/12/22 1344 [facility] Work Phone: [phone] Consult note Author Moises Garcia [facility] September 12, 2022 11:27am Note Date/Time September 12, 2022 11:2 6am [facility] [address] [place] [address] Neurosurgery Consult Note Signed with John Patient: Miriam German MR#: [id number] : 1955 Acct:[id number] Age/Sex: 67 / F Adm Date: 3 Loc: Room: 4I4003-4 Type: ADM IN Attending Dr: Boni Lincoln [...] patient's baseline is. Addendum Documented By: MD Mioses Garcia 09/12/221126 Addendum Signed By: <Electronically signed by MD Moises Garcia> 09/12/22 1127 HPI History of Present Illness Consult Date: 09/12/2022 Requesting Provider: CC: Boni Lincoln DO Reason for Consult: C2 fracture History of Present Illness: 67-year-old female history of rheumatoid arthritis and hypertension. Patient was transferred from [facility] where she was hospitalized as an inpatient [...] quadricep anterior tibial gastrocnemius are grossly 5/5 seed sales manager are 4/5 bilaterally Cerebellar: No lead pipe [...] % (Auto) 86.5, Lymph % (Auto) 8.0, [place] % (Auto) 4.8, Eos % (Auto) 0.2, Baso % (Auto) 0.5, Nucleat RBC Rel Count 0.0, Neut # (Auto) 10.3 H, Lymph #(Auto) 1.0, [place] # (Auto) 0.6, Eos # (Auto) 0.0, [...] % (Auto) 86.2, Lymph % (Auto) 7.6, [place] % (Auto) 5.7, Eos % (Auto) 0.0, Baso % (Auto) 0.5, Nucleat RBC Rel Count 0.1, Neut # (Auto) 9.4 H, Lymph # (Auto) 0.8 L, [place] # (Auto) 0.6, Eos # (Auto) 0.0, [...] signed by MD Moises Garcia> 09/12/22 1126 [facility] Work Phone: [phone] Progress note Author Boni Lincoln [facility] September 11, 2022 6:18pm Note Date/Time September 11, 2022 6:18 pm [facility] [address] [place] [address] Hospitalist Progress Note Signed Patient: Miriam German MR#: [id number] : 1955 Acct:[id number] Age/Sex: 67 / F Adm Date: 3 Loc: Room: 9F2243-9 Type: ADM IN Attending Dr: Boni Lincoln DO Copies to: ~ Date of Service: 09/11/2022 Subjective Subjective Narrative: This patient is a 67-year-old female with a history of rheumatoid arthritis and hypertension. She presents as a transfer from [facility] where she was hospitalized as an inpatient [...] No clubbing, cyanosis or edema NEUROLOGICAL: Decreased senior industrial engineer strength right upper extremity compared to the [...] 08:59 DAILY PRN Magnesium < 1.6 Ipratropium [place] 0.5 mg 09/11/22 20:00 Ipratropium [place] 0.5 Mg/2.5 Ml Vial.Neb INHALATION 09/11/23 19:59 [...] <Electronically signed by Boni Lincoln DO> 09/11/22 1813 [facility] Work Phone: [phone] Consult note Author Srikanth Johnson [facility] September 11, 2022 5:10pm Note Date/Time September 11, 2022 5:04 pm [facility] [address] [place] [address] Cardiology Consult Note Signed Patient: Miriam German MR#: M [id number] : 1955 Acct:[id number] Age/Sex: 67 / F Adm Date: 3 Loc: Room: [address] [place] [address] Type: ADM IN Attending Dr: Boni Lincoln DO Copies to: DO Boni Sullivan DO [...] hypertension or diabetes, however blood pressures at [facility] emergency room and during her hospitalization were [...] Lymph # (Auto) 0.8 L (1.00-4.8) x10E3/uL [place] # (Auto) 0.6 (0.0-0.8) x10E3/uL Eos # [...] <Electronically signed by Srikanth Johnson DO> 09/11/22 9540 [facility] Work Phone: 1([phone]) 681-128106-22-2023 Consult note Author Kira Gill [facility] September 11, 2022 4:15pm Note Date/Time September 11, 2022 4:01 pm [facility] [address] [place] [address] Pulmonology Consult Note Signed Patient: Miriam German MR#: [id number] : 1955 Acct:[id number] Age/Sex: 67 / F Adm Date: 3 Loc: Room: [address] [place] [address] Type: ADM IN Attending Dr: Boni Lincoln [...] been followed by Dr. Bhumika stacy in [place] and has had a longstanding history of supplemental oxygen use at 3 L/min continuously. Patient reportedly has a history of COPD though she denies ever having had pulmonary function test. She does admit to approximately an 55-bvky-zsoa smoking history and is chronically on oxygen [...] of September 05, 2022 presumably from the [facility] reveals no clear evidence of subpleural honeycomb [...] you Documented By: Kira Gill MD 3 [id number] Signed By: <Electronically signed by MD Kira Gill> 09/11/22 1615 [facility] Work Phone: 1([phone]) 854-784406-21-2023 History and physical note Author Boni Lincoln [facility] September 10, 2022 7:21pm Note Date/Time September 10, 2022 6:11 pm [facility] [address] [place] [address] Hospitalist H&P Signed Patient: Miriam German MR#: [id number] : 1955 Acct:[id number] Age/Sex: 67 / F Adm Date: 3 Loc: Room: [address] [place] [address] Type: ADM IN Attending Dr: Boni Lincoln DO Copies to: DO Boni Sullivan DO~ HPI DATE OF EXAMINATION: 09/10/22 CHIEF COMPLAINT: Odontoid fracture HISTORY OF PRESENT ILLNESS: This patient is a 67-year-old female with a history of rheumatoid arthritis and hypertension. She presents as a transfer from [facility] where she was hospitalized as an inpatient after presenting with generalized weakness and backpain on 09/05/2022. She had recently been diagnosed with pneumonia on a prior EDvisit 09/03/2022. She had been experiencing increasingly frequent falls and generalized weakness prompting her to come back to the ER. Reportedly wears 4 Lnasal cannula at baseline. The accompanying records provided by [facility] are essentially worthless providing only repeated copies [...] No clubbing, cyanosis or edema NEUROLOGICAL: Decreased senior industrial engineer strength right upper extremity compared to the left, moves all 4 extremities spontaneously SKIN: Multiple areas of bruising/petechiae PSYCHIATRIC: Appropriate mood and affect Assessment and plan: 1. Unstable C2 odontoid fracture Unfortunately [facility] did not send over any useful records including any cervical spine imaging, not CT nor MRI reports. When requesting records from [facility] our nursing staff was met with significant [...] negative unless noted below or in HPI [facility] Medical History (Updated 09/10/22 @ 18:50 by [...] <Electronically signed by Boni Lincoln DO> 09/10/221920 [facility] Work Phone: 1([phone]) 402-283006-21-2023 Evaluation note* Encounter Date Diagnosis Assessment Notes Treatment Notes Treatment Clinical Notes Aug, Closed odontoid fracture with routine healing, subsequent encounter (ICD-10 - S12.100D) [facility] Other 06-17-2023 History of Present illness Narrative* BryanMumtaz lomasDO - 09/06/2022 7:02 PM EDT Images from the original note were not included. EMERGENCY TRIAGE, TREAT AND TRANSPORT (ET3) DOCUMENTATION OF TELEHEALTH VISIT Date / Time: 09/05/2022 / 5 Name: Miriam German : 1955 SSN: [id number] EMS Agency: [facility] [x] Verbal consent obtained [] Implied [...] Mumtaz Jean Baptiste DO documented in this [id number] Evaluation note* Encounter Date Diagnosis Assessment Notes [...] - F17.211) Continue abstinence, yearly LDCT recommended. [facility] Other 06-02-2023 Evaluation note* Encounter Date Diagnosis Assessment Notes Treatment Notes Treatment Clinical Notes Aug, New daily persistent headache (ICD-10 - G44.52) [facility] Other 05-18-2023 NoteProcedure: Ultrasound-guided right glenohumeral joint [...] A subcentimeter dermatotomy was performed. A 5 [place] Mobikon Asiaesis catheter needle was advanced into the anterior [...] Is Signed, Electronically Signed in Other Vendor System)[facility]05-11-2023 NotePatient Education Materials Name: Miriam German Current Date: 07/31/2022 07:43:50 [place] : 1955 The following sheet(s) are the [...] DO__for continued care. Thank you for choosing [facility] for your care. IS IT A [...] immediate medical attention! Thank you for choosing [facility] Patient and Family Resources COVID vaccinations are offered at most retail pharmacies or your local health department. For more information, go to [email or web address]. If you received a COVID vaccine while at the hospital, you may need to schedule an appointment to receive your second dose. For the Pfizer vaccine: a second dose at least 21 days after the first dose. For the Moderna vaccine: second dose at least 28 days after the first dose. For the Mario and Mario vaccine: no second dose is required. [facility] Poison Help line: [facility] [place], [facility] Crisis Hotline: National Suicide and Crisis Lifeline: [address] [place] Tobacco Quit Line: [facility] [address], [place]: [phone] For the disposal of all unused and/or prescription medications (including opioid/narcotic medications), [facility], [place], [facility] has two medication collection boxes: 1) at the [facility] and 2) at the [facility]05-10-2023 Evaluation note* Encounter Date Diagnosis [...] refer back to Rheum after shoulder surgery. [facility] Other 05-10-2023 Evaluation note* Encounter Date Diagnosis [...] to open ET and Flonase NS recommended. [facility] Other 02-09-2023 Evaluation note* Encounter Date Diagnosis Assessment Notes Treatment Notes Treatment Clinical Notes Apr, Primary hypertension (ICD-10 - I10) Apr, High risk medication use (ICD-10 - Z79.899) Apr, Fatigue, unspecified type (ICD-10 - R53.83) Apr, 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 (ICD-10 - M05.741) Apr, Vitamin D deficiency (ICD-10 - E55.9) [facility] Other 02-08-2023 Evaluation note* Encounter Date Diagnosis [...] Healthy diet, keep active, consistent sleep routine [facility] Other 12-21-2022 Telephone encounter Note* Telephone Encounter [...] records found for TST-PPD, intradermal (PPD) (CVX=96) [employer] Phone: 1(668) 295-614712-21-2022 Miscellaneous Notes* Telephone Encounter - Noreen Garcia [...] TST-PPD, intradermal (PPD) (CVX=96) documented in this [id number] Telephone encounter Note* Telephone Encounter - Jocelyn Rodarte - 10/13/2021 10:28 AM EDT Existing RX should have refills. [id number] Miscellaneous Notes* Telephone Encounter - Jocelyn Rodarte - 10/13/2021 10:28 AM EDT Existing RX should have refills. documented in this [id number] Telephone encounter Note* Telephone Encounter - Chris Love - 09/26/2021 4:05 PM EDT Sent pt mychart msg [id number] Miscellaneous Notes* Telephone Encounter - Chris Love - 09/26/2021 4:05 PM EDT Sent pt mychart msg * Telephone Encounter - Tom Welch MD - 09/26/2021 3:54 PM EDT Needs f/u visit documented in this [id number] Telephone encounter Note* Telephone Encounter - Tom Welch MD - 09/26/2021 3:54 PM EDT Needs f/u visit [id number] Hospital course Narrative* Sunni Mary RN - 08/21/2021 3:06 PM EDT Report called to Kitty at [facility]. No further questions or concerns at this time. Patient sent with belongings bag of cell phone and white washer piler. Awaiting transport scheduled for 3pm documented in this encounterBON [employer] Phone: 1(213) 385-175506-01-2022 History of Present illness Narrative* Michelle Dunaway [...] loss Fluid Accumulation: Mild (to Moderate) Extremities,Generalized Real Estate Paralegal Strength: Not Performed Nutrition Assessment: Pt seen/chart [...] Anthropometric Measures: Height: 5' 4 (162.6 cm) [place] Body Weight (IBW): 120 lbs (55 kg) [...] 1800 kcals/day Weight Used for Protein Requirements: [place] Protein (g/day): 80 gm pro/day Method Used for Fluid Requirements: Other - [place] Segfl Fluid (ml/day): 2000 mL/day or per MD [...] current diet Michelle Dunaway RD, ANNA Contact: [phone] * Dilan Jerome MD - 08/21/2021 10:57 AM EDT Images from the original note were not included. [facility] Office: [phone] Anthony Cano DO, Leighton Johnson DO, Tom [...] Barrington Rodriguez PA-C, Ludy Good, MANOLO, Regina Dlevalle, GINNY, Liliya Gambino, GINNY, Evie Tavares CNP, Gabby Hanson, LAVERNE, [place] DNP, Mildred Auguste CNP, Lili Palmer CNP, Ashia Fu, GINNY [facility] IN-PATIENT SERVICE [facility] Progress Note 08/21/2021 10:57 AM Name: Miriam German Acct: [id number] Room: IP Day: 7 Admit Date: 08/14/2021 [...] sent later today to rehab facility in [place] Brief History: Per my partner: Miriam German is a 66 y.o. female initially presented to [facility] ED for evaluationof acute onset lower abdominal [...] CRP. Orthopedic surgery evaluated the patient in [place]'s ER and recommended the patient be transferred [...] looked in months. Blood cultures drawn from [place] ED returned positive. Orthopedic surgery and general [...] Continuous Infusions: sodium chloride 25 mL (08/21/21 8936) sodium chloride PRN Meds: metoprolol, sodium chloride [...] No results for input(s): PROT, LABALBU, LABA1C, K3PFHMO, U8MNRTG, FT4, TSH, AST, ALT, LDH, GGT, ALKPHOS, LABGGT, BILITOT, BILIDIR, AMMONIA, AMYLASE, LIPASE, LACTATE, CHOL, HDL, LDLCHOLESTEROL, CHOLHDLRATIO, TRIG, VLDL, TJB83ZP, PHENYTOIN, PHENYF, URICACID, POCGLU in the last 72 hours. ABG:No results found for: POCPH, PHART, PH, POCPCO2, TAW5BDM, PCO2, POCPO2, PO2ART, PO2, POCHCO3, UEW2MZY, HCO3, NBEA, PBEA, BEART, BE, THGBART, THB, SIG9LDL, GVYX2HUV, Q9YIOFEE, O2SAT, FIO2 Lab Results Component Value Date/Time [...] THORACIC SPINE WO CONTRAST Result Date: 08/15/2021 Qtnv-hd-senateei compression fracture of the T4 vertebral body, [...] 08/15/2021 Unsuccessful fluoroscopic-guided lumbar puncture in the myiz-mhdy-oorl decubitus position, as above. IR ARTHR/ASP/INJ MAJOR [...] that Long discussion with pt, delfin and registered nurse hh case manager, > 45 min spent coordinating care, CLAIRE signed Dilan Jerome MD 08/21/2021 10:57 AM * Claire Red RN - 08/21/2021 6:56 AM EDT TUBE BUILDING MACHINE OPERATOR notified of hypokalemia, new order noted. * Claire Red RN - 08/20/2021 8:40 PM EDT TUBE BUILDING MACHINE OPERATOR notified of loose stools d/t ABX, new PRN order noted for Imodium. TUBE BUILDING MACHINE OPERATOR also notified of pt stating she is no longer on prednisone, order d/c'd. * Eulogio Manzo MD - 08/20/2021 1:15 PM EDT [facility] - Progress Note Today's Date and Time: [...] pubic symphysis aspiration 08/17/21 Infection Control Recommendations [place] Precautions Antimicrobial Stewardship Recommendations Simplification of therapy [...] fall in June 2021, initially presented to [facility] ED on 08/14/21 with complaints of [...] and Vancomycin. The patient was transferred to [facility] for a higher level of care. Abnormal lab findings at [facility] included: Lactic: 2.8 Pro floyd: 3.47 Alk phos: 187 CRP: 258.6 WBC: 23.3 Abs neutr: 19.1 ESR: 84 Blood cultures from [place] on 08/14/21 came back positive for gram [...] will continue to follow Discharge planning to [place] [facility] Labs, X rays reviewed: 08/20/2021 BUN:11-->7 [...] RIGHT performed by Gerardo Munroe MD at [facility] OR CT ASP ABS HEMATOMA BULLA CYST 08/17/2021 CT ASP ABS HEMATOMA BULLA CYST 08/17/2021 Jonathan Osorio MD [facility] CT SCAN SHOULDER ARTHROSCOPY Right 08/16/2021 SHOULDER ARTHROSCOPY WITH I&D performed by Gerardo Munroe MD at [facility] OR Medications: [START ON 08/21/2021] potassium chloride [...] Friends and Family: Not on file Attends Yazidi Services: Not on file Active Member of [...] Right femoral venous catheter noted. Medical Decision Zxlwmv-Dzwyjbyx-Mfuuv: Result 2 of 2 This report contains more than one result. Contains abnormal data Culture, Blood 1 Order: [id number] Status: Final result Visible to patient: No (not released) Next appt: None Specimen Information: Blood 0 Result Notes Component 08/14/21 1205 Resulting Agency Specimen Description .BLOOD [facility] Special Requests RIGHT CVC 10ML [facility] Culture POSITIVE BLOOD CULTURE, RN NOTIFIED: [facility] Culture DIRECT GRAM STAIN FROM BOTTLE: GRAM POSITIVE COCCI IN CLUSTERS [facility] Culture STAPHYLOCOCCUS AUREUS This isolate is methicillin susceptible. Abnormal [facility] Culture (NOTE) Direct Gram Stain from bottle result called to and read back by JENNIFER RICHTER RN AT [facility] C[facility] 3 0119 08/15/2021 TB [facility] [place] Susceptibility Staphylococcus aureus (3) [...] data were reviewed Discussed with nursing Staff, farm planner Infection Control and Prevention measures reviewed All prior entries were reviewed Administer medications as ordered Prognosis: Fair Discharge planning reviewed Follow up as outpatient. Thank you for allowing us to participate in the care of this patient. Please call with questions. Tita Martinez, HOME HEALTH CLINICAL LIAISON - MOP MAKER ATTESTATION: I have discussed the case, including [...] from the original note were not included. [facility] Office: [phone] Anthony Cano DO, Leighton Johnson DO, Tom [...] Orr MD, Dilan Jerome MD, Valerie Miller, MOP MAKER, Hina Granados, MOP MAKER, Juan Carlos Mosqueda,MOP MAKER, Amira Morgan, MOP MAKER, Barbara Feliciano, MOP MAKER, Rory Peralta, MOP MAKER, Barrington Rodriguez, PA-C, Ludy Good, DNP, Regina Delvalle, MOP MAKER, Liliya Gambino, MOP MAKER, Evie Tavares, MOP MAKER, Gabby Hanson, PULPER OPERATOR, [place], DNP, Mildred Auguste, MOP MAKER, Lili Palmer, MOP MAKER, Ashia Fu, MOP MAKER [facility] IN-PATIENT SERVICE [facility] Progress Note 08/20/2021 12:52 PM Name: Miriam German Acct: [id number] Room: IP Day: 6 Admit Date: 08/14/2021 [...] sent later today to rehab facility in [place] Brief History: Per my partner: Miriam German is a 66 y.o. female initially presented to [facility] ED for evaluationof acute onset lower abdominal [...] CRP. Orthopedic surgery evaluated the patient in [place]'s ER and recommended the patient be transferred [...] looked in months. Blood cultures drawn from [place] ED returned positive. Orthopedic surgery and general [...] No results for input(s): PROT, LABALBU, LABA1C, H2FIZNY, R9TAMAU, FT4, TSH, AST, ALT, LDH, GGT, ALKPHOS, LABGGT, BILITOT, BILIDIR, AMMONIA, AMYLASE, LIPASE, LACTATE, CHOL, HDL, LDLCHOLESTEROL, CHOLHDLRATIO, TRIG, VLDL, PEV59AS, PHENYTOIN, PHENYF, URICACID, POCGLU in the last 72 hours. ABG:No results found for: POCPH, PHART, PH, POCPCO2, BUG4TXH, PCO2, POCPO2, PO2ART, PO2, POCHCO3, GQJ0INN, HCO3, NBEA, PBEA, BEART, BE, THGBART, THB, IEQ3OHK, MXIL1GHM, Q8YOFDEV, O2SAT, FIO2 Lab Results Component Value Date/Time [...] THORACIC SPINE WO CONTRAST Result Date: 08/15/2021 Qsza-vi-cbvoohen compression fracture of the T4 vertebral body, [...] 08/15/2021 Unsuccessful fluoroscopic-guided lumbar puncture in the zoeq-oinl-rewc decubitus position, as above. IR ARTHR/ASP/INJ MAJOR [...] open Long discussion with pt, sons and registered nurse hh case manager, > 45 min spent coordinating care, CLAIRE signed Dilan Jerome MD 08/20/2021 12:52 PM * Ryan Neal OT - 08/19/2021 2:04 PM EDT Occupational Therapy Facility/Department: 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 2 Physical Therapy Reassessment Name: Miriam [...] to the ER as a transfer from [place] for concerns of septic arthritis. Patient presented to [place] ER earlier today with concerns for acute [...] well as abdomen and trunk. Workup at [place] was showed inflammatory changes in the right shoulder and around pubic symphysis that was concerning for septic arthritis. Ortho was consulted at [place] and the orthopedic surgeon did not feel patient was appropriate for bedside arthrocentesis and needed to have exam perfo rmed with xray guidance. Patient was transferred to [place] for Ortho eval here. Noted to have leukocytosis of 17.1. CRP elevated to 249.9. Sed rate 66. Blood cultures, lactate acid were drawn. Patient received one dose of Vancomycin and Zosyn at [place]. Received 30cc/kg bolus. Central line wasplaced for poor peripheral access. Urinalysis also positive for UTI. Patient's son is in the room and states they just saw her this past Thursday and she was ambulatorywith walker and was the best that she had looked in months. Per reports she was ambulatory when shefirst arrived at [place] earlier today. 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 Vision/Hearing Hearing: Within functional limits [...] A from elevated bed, rwalker; sit to wine and spirits clerk murtaza stedy withmod A+2) Stand to sit: [...] Inpatient CMS G-Code Modifier : CM (08/17/21 [facility]) Goals Can Carrier Goals Time Frame for skilled nursing goals : 12 visits skilled nursing goal 1: sit to stand from lift chair with SBA+1 ferry terminal agent goal 2: gait with rollator x 25' with SBA+1 ferry terminal agent goal 3: improve R shoulder strength to [...] 10:39 AM EDT [facility] - Progress Note Today's Date and Time: [...] pubic symphysis aspiration 08/17/21 Infection Control Recommendations [place] Precautions Antimicrobial Stewardship Recommendations Simplification of therapy [...] fall in June 2021, initially presented to [facility] ED on 08/14/21 with complaints of [...] and Vancomycin. The patient was transferred to [facility] for a higher level of care. Abnormal lab findings at [facility] included: Lactic: 2.8 Pro floyd: 3.47 Alk phos: 187 CRP: 258.6 WBC: 23.3 Abs neutr: 19.1 ESR: 84 Blood cultures from [place] on 08/14/21 came back positive for gram [...] Friends and Family: Not on file Attends Yazidi Services: Not on file Active Member of [...] Right femoral venous catheter noted. Medical Decision Rwhxdr-Trklqitb-Mxuwo: Result 2 of 2 This report contains more than one result. Contains abnormal data Culture, Blood 1 Order: [id number] Status: Final result Visible to patient: No (not released) Next appt: None Specimen Information: Blood 0 Result Notes Component 08/14/21 1205 Resulting Agency Specimen Description .BLOOD [facility] Special Requests RIGHT CVC 10ML [facility] Culture POSITIVE BLOOD CULTURE, RN NOTIFIED: [facility] [place] Culture DIRECT GRAM STAIN FROM BOTTLE: GRAM POSITIVE COCCI IN CLUSTERS [facility] [place] Culture STAPHYLOCOCCUS AUREUS This isolate is methicillin susceptible. Abnormal [facility] [place] Culture (NOTE) Direct Gram Stain from bottle result called to and read back by EJNNIFER RICHTER RN AT [facility] 3 0119 08/15/2021 TB [facility] [place] Susceptibility Staphylococcus aureus (3) Antibiotic [...] data were reviewed Discussed with nursing Staff, farm planner Infection Control and Prevention measures reviewed All prior entries were reviewed Administer medications as ordered Prognosis: Fair Discharge planning reviewed Follow up as outpatient. Thank you for allowing us to participate in the care of this patient. Please call with questions. Tita Martinez, HOME HEALTH CLINICAL LIAISON - MOP MAKER ATTESTATION: I have discussed the case, including pertinent history and exam findings with the HOME HEALTH CLINICAL LIAISON. I have evaluated the History, physical findings and pictures of the patient and the lea elements of the encounter have been performed by me. I have reviewed the laboratory data, other diagnostic studies and discussed them with the HOME HEALTH CLINICAL LIAISON. I have updated the medical record where necessary. I agree with the assessment, plan and orders as documented by the HOME HEALTH CLINICAL LIAISON. Eulogio Manzo MD. Pager: - Office: * Loretta Strauss MD - 08/19/2021 9:59 AM EDT Images from the original note were not included. [facility] Office: [phone] Anthony Cano DO, Leighton Johnson DO, Tom [...] TOSHIA FelicianoC, Ludy Good, DNP, Regina Delvalle, MOP MAKER, Liliya Gambino, MOP MAKER, Evie Tavares, MOP MAKER, Gabby Hanson, PULPER OPERATOR, [place], MANOLO, Mildred Auguste, GINNY, Lili Palmer, GINNY, Ashia Fu, MOP MAKER [facility] IN-PATIENT SERVICE [facility] Progress Note 08/19/2021 9:59 AM Name: Miriam German Acct: [id number] Room: IP Day: 5 Admit Date: 08/14/2021 [...] needs to go to a SNF in [place]. She is also agreeable to this, after her 2 sons spoke to her. I offered a bariatric bed, she refused. She requests a sleep aid, and to sleep in the chair she is in. No fevers, chills. Brief History: Per my partner: Miriam German is a 66 y.o. female initially presented to [facility] ED for evaluationof acute onset lower abdominal [...] CRP. Orthopedic surgery evaluated the patient in [place]'s ER and recommended the patient be transferred [...] looked in months. Blood cultures drawn from [place] ED returned positive. Orthopedic surgery and general [...] No results for input(s): PROT, LABALBU, LABA1C, M1LKPOU, F3UVMSR, FT4, TSH, AST, ALT, LDH, GGT, ALKPHOS, LABGGT, BILITOT, BILIDIR, AMMONIA, AMYLASE, LIPASE, LACTATE, CHOL, HDL, LDLCHOLESTEROL, CHOLHDLRATIO, TRIG, VLDL, VBJ31KP, PHENYTOIN, PHENYF, URICACID, POCGLU in the last 72 hours. ABG:No results found for: POCPH, PHART, PH, POCPCO2, OOC3THM, PCO2, POCPO2, PO2ART, PO2, POCHCO3, HFJ2RUB, HCO3, NBEA, PBEA, BEART, BE, THGBART, THB, QPO7WXN, ZYDW0XOO, N7WIRGID, O2SAT, FIO2 Lab Results Component Value Date/Time [...] THORACIC SPINE WO CONTRAST Result Date: 08/15/2021 Enal-tf-wqkllpmy compression fracture of the T4 vertebral body, [...] 08/15/2021 Unsuccessful fluoroscopic-guided lumbar puncture in the trdc-tgdl-cyep decubitus position, as above. IR ARTHR/ASP/INJ MAJOR [...] 11. SW- dc planning to SNF, dw registered nurse hh case manager. Long discussion with pt, sons and registered nurse hh case manager, > 45 min spent coordinating care, CLAIRE [...] she will f/u with Dr. Newell in [place] as out-pt.. * Julianne Dickerson PT - [...] 8:21 AM EDT [facility] - Progress Note Today's Date and Time: [...] pubic symphysis aspiration 08/17/21 Infection Control Recommendations [place] Precautions Antimicrobial Stewardship Recommendations Simplification of therapy [...] fall in June 2021, initially presented to [facility] ED on 08/14/21 with complaints of [...] and Vancomycin. The patient was transferred to [facility] for a higher level of care. Abnormal lab findings at [facility] included: Lactic: 2.8 Pro floyd: [...] Friends and Family: Not on file Attends Yazidi Services: Not on file Active Member of [...] Right femoral venous catheter noted. Medical Decision Yduqma-Hlycyxyq-Fkdgz: Result 2 of 2 This report contains more than one result. Contains abnormal data Culture, Blood 1 Order: [id number] Status: Final result Visible to patient: No (not released) Next appt: None Specimen Information: Blood 0 Result Notes Component 08/14/21 1205 Resulting Agency Specimen Description .BLOOD [facility] Special Requests RIGHT CVC 10ML [facility] Culture POSITIVE BLOOD CULTURE, RN NOTIFIED: [facility] [place] Culture DIRECT GRAM STAIN FROM BOTTLE: GRAM POSITIVE COCCI IN CLUSTERS [facility] [place] Culture STAPHYLOCOCCUS AUREUS This isolate is methicillin susceptible. Abnormal [facility] Culture (NOTE) Direct Gram Stain from bottle result called to and read back by JENNIFER RICHTER RN AT [facility] 3 0119 08/15/2021 TB [facility] [place] Susceptibility Staphylococcus aureus (3) Antibiotic [...] data were reviewed Discussed with nursing Staff, farm planner Infection Control and Prevention measures reviewed All prior entries were reviewed Administer medications as ordered Prognosis: Fair Discharge planning reviewed Follow up as outpatient. Thank you for allowing us to participate in the care of this patient. Please call with questions. Tita Martinez, HOME HEALTH CLINICAL LIAISON - MOP MAKER ATTESTATION: I have discussed the case, including pertinent history and exam findings with the HOME HEALTH CLINICAL LIAISON. I have evaluated the History, physical findings and pictures of the patient and the lea elements of the encounter have been performed by me. I have reviewed the laboratory data, other diagnostic studies and discussed them with the HOME HEALTH CLINICAL LIAISON. I have updated the medical record where necessary. I agree with the assessment, plan and orders as documented by the HOME HEALTH CLINICAL LIAISON. Eulogio Manzo MD. Pager: - Office: * [...] Patient's name: Miriam German Patient's account/billing number: [id number] Patient's Date of : 1955 Age: 66 y.o. Date of Admission: 08/14/2021 5:10 PM Length of stay during current admission: 3 Primary Care Physician: Bhumika Stacy DO Code Status: Full Code Mode of physician to physician communication: [x] Via telephone [] In person Date and time of sign-out: 08/17/2021 6:34 PM Accepting Monica TUBE BUILDING MACHINE OPERATOR: Valerie Miller. Accepting Medicine team: Monica. Accepting team's attending: Dr. Ap Duran Patient's current ICU Bed: 3022 Patient's assigned bed on floor: 2013 [] Med-Surg Monitored [x] Step-down [] Psychiatry ICU [] Psych floor Reason for ICU admission: Sepsis secondary to septic arthritis. ICU course summary: 66-year-old female with history of rheumatoid arthritis on immunosuppressive drugs, presented to [facility] a transfer from [place] ED where she presented for right shoulder pain and suprapubic pain. Patient has a history of traumatic fall in June this year resulting in nondisplaced fracture of left L5 and right L4 transverse process. In [place] ED, there was concern of dissection, CTA [...] was consulted and patient was transferred to [place] for further management. And [place] ER, patient had severe mottling of bilateral [...] joint was aspirated. Her blood cultures from [facility] grew gram-positive cocci MSSA. Infectious disease was [...] 08/17/2021 1:41 PM EDT Physical Therapy Facility/Department: [facility] 3 Physical Therapy Initial Assessment Name: [...] to the ER as a transfer from [place] for concerns of septic arthritis. Patient presented to [place] ER earlier today with concerns for acute [...] well as abdomen and trunk. Workup at [place] was showed inflammatory changes in the right shoulder and around pubic symphysis that was concerning for septic arthritis. Ortho was consulted at [place] and the orthopedic surgeon did not feel patient was appropriate for bedside arthrocentesis and needed to have exam performed with xray guidance. Patient was transferred to [place] for Ortho eval here. Noted to have leukocytosis of 17.1. CRP elevated to 249.9. Sed rate 66. Blood cultures, lactate acid were drawn. Patient received one dose of Vancomycin and Zosyn at [place]. Received 30cc/kg bolus. Central line wasplaced for poor peripheral access. Urinalysis also positive for UTI. Patient's son is in the room and states they just saw her this past Thursday and she was ambulatorywith walker and was the best that she had looked in months. Per reports she was ambulatory when shefirst arrived at [facility] earlier today. 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 Vision/Hearing Vision: WFL Hearing: Within [...] to R ankle, R shoulder AM-PAC Score AM-[facility] Inpatient Mobility Raw Score : 7 (08/17/21 [facility]) AM-PAC Inpatient T-Scale Score : 26.42 (08/17/21 [facility]) Mobility Inpatient CMS 0-100% Score: 92.36 (08/17/21 [facility]) Mobility Inpatient CMS G-Code Modifier : CM (08/17/21 [facility]) Goals Can Carrier Goals Time Frame for ferry terminal agent goals : 1 visit ferry terminal agent goal 1: assess mobility next session and [...] 9:15 AM EDT [facility] - Progress Note Today's Date and Time: [...] shoulder I&D on 08/16/21 Infection Control Recommendations [place]de Precautions Antimicrobial Stewardship Recommendations Simplification of therapy [...] fall in June 2021, initially presented to [facility] ED on 08/14/21 with complaints of [...] and Vancomycin. The patient was transferred to [facility] for a higher level of care. Abnormal lab findings at [facility] included: Lactic: 2.8 Pro floyd: 3.47 Alk phos: 187 CRP: 258.6 WBC: 23.3 Abs neutr: 19.1 ESR: 84 Blood cultures from [facility] on 08/14/21 came back positive for gram [...] Friends and Family: Not on file Attends Yazidi Services: Not on file Active Member of [...] Right femoral venous catheter noted. Medical Decision Ppojvi-Gmgxppho-Yqtgh: Result 2 of 2 This report contains more than one result. Contains abnormal data Culture, Blood 1 Order: [id number] Status: Final result Visible to patient: No (not released) Next appt: None Specimen Information: Blood 0 Result Notes Component 08/14/21 1205 Resulting Agency Specimen Description .BLOOD [facility] Special Requests RIGHT CVC 10ML [facility] Culture POSITIVE BLOOD CULTURE, RN NOTIFIED: [facility] Culture DIRECT GRAM STAIN FROM BOTTLE: GRAM POSITIVE COCCI IN CLUSTERS [facility] Culture STAPHYLOCOCCUS AUREUS This isolate is methicillin susceptible. Abnormal [facility] Culture (NOTE) Direct Gram Stain from bottle result called to and read back by JENNIFER RICHTER RN AT [facility] 3 0119 08/15/2021 TB [facility] Susceptibility Staphylococcus aureus (3) [...] data were reviewed Discussed with nursing Staff, farm planner Infection Control and Prevention measures reviewed All prior entries were reviewed Administer medications as ordered Prognosis: Fair Discharge planning reviewed Follow up as outpatient. Thank you for allowing us to participate in the care of this patient. Please call with questions. Tita Martinez, HOME HEALTH CLINICAL LIAISON - MOP MAKER ATTESTATION: I have discussed the case, including pertinent history and exam findings with the HOME HEALTH CLINICAL LIAISON. I have evaluated the History, physical findings and pictures of the patient and the lea elements of the encounter have been performed by me. I have reviewed the laboratory data, other diagnostic studies and discussed them with the HOME HEALTH CLINICAL LIAISON. I have updated the medical record where necessary. I agree with the assessment, plan and orders as documented by the HOME HEALTH CLINICAL LIAISON. Eulogio Manzo MD. Pager: - Office: * [...] prescribed to be a poor historian at [facility]. Patient reported that the pain was [...] level of care. Patient was sent to [facility] for possible orthopedic surgery and septic management. Patient did have a central line placed in the right femoral vein. Patient did receive a 30 mL/kg bolus along with vancomycin and [facility] IV[facility] for leukocytosis of 17.1, CRP of 249.9, ESR 66, along with UTI. Blood cultures that time were pending. Upon arrival at [facility] ER patient was found to have dry mucous membranes, severe pain along the right-sided shoulder and hip and severe mottling on the bilateral lower extremities along with the left aspect of the upper extremities. Lab work at [facility] was concerning for a CRP of 258.6, [...] cultures did grow out gram-positive cocci from [facility]. OVERNIGHT EVENTS: Patient went to the OR [...] Result Unsuccessful fluoroscopic-guided lumbar puncture in the kuos-bxoz-olry decubitus position, as above. IR ARTHR/ASP/INJ MAJOR [...] CT THORACIC SPINE WO CONTRAST Final Result Qaff-cb-ykqiqcze compression fracture of the T4 vertebral body, [...] PROPHYLAXIS: Stress ulcer: [] PPI Agent [] H0Mfjgr [] Sucralfate [] Other [x] None VTE: [...] shoulder and R hip Blood cultures from [facility] grew back gram-positive cocci in clusters per [...] if patient requires rehab requesting close to [facility] as that is where her son lives [...] seen and examined the patient and the lae elements of all parts of the encounter [...] this chart was generated using voice recognition [employer] system dictation software. Although every effort was made to ensure the accuracy of this automated design intern, some errors in design intern may have occurred. * Tio Bernal DO [...] Tio Bernal DO Orthopedic Surgery Resident PGY-1 [place], [place] * Lisa De La Rosa RN - 08/16/2021 10:13 PM EDT Xray done at bedside * Evie Jordan - 08/16/2021 4:35 PM EDT Echo completed at patient bedside. * Eulogio Manzo MD - 08/16/2021 1:20 PM EDT [facility] - Progress Note Today's Date and Time: [...] 08/16/21 Medical Decision Making/Summary/Discussion:08/16/2021 Infection Control Recommendations [place] Precautions Antimicrobial Stewardship Recommendations Simplification of therapy [...] fall in June 2021, initially presented to [facility] ED on 08/14/21 with complaints of [...] and Vancomycin. The patient was transferred to [facility] for a higher level of care. Abnormal lab findings at [facility] included: Lactic: 2.8 Pro floyd: 3.47 Alk phos: 187 CRP: 258.6 WBC: 23.3 Abs neutr: 19.1 ESR: 84 Blood cultures from [facility] on 08/14/21 came back positive for gram [...] mg IntraVENous Q12H ceFAZolin 2,000 mg IntraVENous Cd Mixer to OR sodium chloride flush 5-40 mL [...] Friends and Family: Not on file Attends Yazidi Services: Not on file Active Member of [...] Right femoral venous catheter noted. Medical Decision Brdkef-Pmmfdhtb-Ntsum: Medical Decision Making-Other: Note: Labs, medications, radiologic studies were reviewed with personal review of films Large amounts of data were reviewed Discussed with nursing Staff, farm planner Infection Control and Prevention measures reviewed All prior entries were reviewed Administer medications as ordered Prognosis: Guarded Discharge planning reviewed Follow up as outpatient. Thank you for allowing us to participate in the care of this patient. Please call with questions. Tita Martinez, HOME HEALTH CLINICAL LIAISON - MOP MAKER ATTESTATION: I have discussed the case, including pertinent history and exam findings with the HOME HEALTH CLINICAL LIAISON. I have evaluated the History, physical findings and pictures of the patient and the lea elements of the encounter have been performed by me. I have reviewed the laboratory data, other diagnostic studies and discussed them with the HOME HEALTH CLINICAL LIAISON. I have updated the medical record where necessary. I agree with the assessment, plan and orders as documented by the HOME HEALTH CLINICAL LIAISON. Eulogio Manzo MD. Pager: - Office: * Holli Llanes [facility] - 08/16/2021 11:28 AM EDT [facility] Pharmacokinetic Monitoring Service - Vancomycin Consulting [...] from the original note were not included. [facility] Occupational Therapy Not Seen Note DATE: 08/16/2021 [...] prescribed to be a poor historian at [facility]. Patient reported that the pain was [...] level of care. Patient was sent to [facility] for possible orthopedic surgery and septic management. Patient did have a central line placed in the right femoral vein. Patient did receive a 30 mL/kg bolus along with vancomycin and Zosyn IV. Patient's lab work was concerning for leukocytosis of 17.1, CRP of 249.9, ESR 66, along with UTI. Blood cultures that time were pending. Upon arrival at [facility] ER patient was found to have dry mucous membranes, severe pain along the right-sided shoulder and hip and severe mottling on the bilateral lower extremities along with the left aspect of the upper extremities. Lab work at [facility] ER was concerning for a CRP [...] cultures did grow out gram-positive cocci from [facility]. OVERNIGHT EVENTS: No acute events overnight TODAY: [...] mg IntraVENous Q12H ceFAZolin 2,000 mg IntraVENous Cd Mixer to OR sodium chloride flush 5-40 mL [...] Result Unsuccessful fluoroscopic-guided lumbar puncture in the rbkk-tkun-wekn decubitus position, as above. IR ARTHR/ASP/INJ MAJOR [...] CT THORACIC SPINE WO CONTRAST Final Result Qwbk-pt-gyyuxurj compression fracture of the T4 vertebral body, [...] PROPHYLAXIS: Stress ulcer: [] PPI Agent [] R4Tevdg [] Sucralfate [] Other [x] None VTE: [...] shoulder and R hip Blood cultures from [facility] grew back gram-positive cocci in clusters per [...] if patient requires rehab requesting close to [facility] as that is where her son lives [...] this chart was generated using voice recognition [employer] dictation software. Although every effort was made to ensure the accuracy of this automated design intern, some errors in design intern may have occurred. * Earnest Gooden RN - 08/15/2021 11:44 AM EDT Patient to IR with RN, assisted to table in supine position. Dr. Siva CARTAGENA/VIVEK RTs at bedside. Site prepped and draped for right shoulder aspirate. Access obtained and scant amount serosang fluid obtained. Specimens collected and to be sent to lab by ticket writer. Access removed and band aid placed [...] from the original note were not included. [facility] Occupational Therapy Not Seen Note DATE: 08/15/2021 [...] prescribed to be a poor historian at [facility]. Patient reported that the pain was [...] level of care. Patient was sent to [facility] for possible orthopedic surgery and septic management. Patient did have a central line placed in the right femoral vein. Patient did receive a 30 mL/kg bolus along with vancomycin and Zosyn IV. [facility] lab work was concerning for leukocytosis of 17.1, CRP of 249.9, ESR 66, along with UTI. Blood cultures that time were pending. Upon arrival at [facility] ER patient was found to have dry mucous membranes, severe pain along the right-sided shoulder and hip and severe mottling on the bilateral lower extremities along with the left aspect of the upper extremities. Lab work at [facility] was concerning for a CRP of 258.6, [...] cultures did grow out gram-positive cocci from [facility]. This morning patient has had poor urine [...] Critical results were called by Dr. Mik Catnu to Dr. Mcelroy on 08/15/2021 at 00:07. [...] PROPHYLAXIS: Stress ulcer: [] PPI Agent [] O2Ewpde [] Sucralfate [] Other [x] None VTE: [...] this chart was generated using voice recognition [employer] dictation software. Although every effort was made to ensure the accuracy of this automated design intern, some errors in design intern may have occurred. * Van Yanna Kraft [...] with any questions . * Holli Llanes [facility] - 08/14/2021 7:42 PM EDT [facility] Pharmacokinetic Monitoring Service - Vancomycin Miriam [...] Nasal Swab: N/A. Non-respiratory infection. Transfer from [facility] with concern for septic arthritis of shoulder [...] 08/14/2021 7:39 PM documented in this encounterB[facility] Phone: 1(739) 719-134705-30-2022 Hospital Discharge instructions* Discharge Instr - CLAIRE* Sunni Mary RN - 08/19/2021 3:40 PM EDT Continuity of Care Form Patient Name: Miriam German : 1955 Admit date: 08/14/2021 Discharge date: 08/21/2021 Code Status Order: Full Code Advance Directives: Admitting Physician: Loretta Strauss MD PCP: Bhumika Stacy DO Discharging Nurse: Sunni Mary RN Discharging Hospital Unit/Room#: Discharging Unit Emergency Contact: Extended Emergency Contact Information Primary Emergency Contact: Branden Lucero Address: [address] [place] [address] Relation: Child Secondary Emergency Contact: Geremias Gann Address: [address] [place] [address] Relation: Other Past Surgical History: Past Surgical History: Procedure Laterality Date CT ASP ABS HEMATOMA BULLA CYST 08/17/2021 CT ASP ABS HEMATOMA BULLA CYST 08/17/2021 Jonathan Osorio MD [address]VZ CT SCAN Immunization History: There is no immunization history on file for this patient. Active Problems: Patient Active Problem List Diagnosis Code Septicemia ([facility]) A41.9 Pyogenic arthritis of right shoulder region ([facility]) M00.9 Acute cystitis without hematuria N30.00 MSSA bacteremia R78.81, B95.61 Volume overload E87.70 Constipation K59.00 Physical debility R53.81 Morbid obesity ([facility]) E66.01 Isolation/Infection: Isolation No Isolation Patient Infection [...] Dependent Dressing Dependent Toileting Dependent Feeding Assisted Dental Equipment Mechanic Assisted Med Delivery whole Wound Care Documentation [...] Discharging to Facility/ Agency Name: Address: [facility] Details Fax [address] [facility] [address] Phone: Fax: Dialysis Facility (if applicable) Name: Address: Dialysis Schedule: Phone: Fax: Kindergarten Classroom Teacher/Pool Hand signature: PHYSICIAN SECTION Prognosis: Fair Condition at Discharge: Stable Rehab Potential (if transferring to Rehab): Fair Recommended Labs or Other Treatments After Discharge: Physician Certification: I certify the above information and transfer of Miriam German is necessary for the continuing treatment of the diagnosis listed and that she requires Penitentiary Facility for less 30 days. Update Admission H&P: No change in H&P PHYSICIAN SIGNATURE: * Additional Instructions* Dilan Jerome MD - 08/15/2021 Follow up with PCP and rheumatology for half-way care of your rheumatoid arthritis documented [facility] [employer] Phone: [phone] 258-342505-28-2022 NotePROCEDURE: CT-GUIDED PUBIC SYMPHYSIS ASPIRATION 08/17/2021 HISTORY: [...] the procedure including risks, benefits, and alternatives. Clyde protocol was observed. Sterile gowns, masks, hats [...] Signed by: Jonathan Osorio MD 08/17/21 Final [facility]MerSaint [facility]05-28-2022 NotePROCEDURE: CT-GUIDED PUBIC SYMPHYSIS ASPIRATION 08/17/2021 HISTORY: [...] the procedure including risks, benefits, and alternatives. Clyde protocol was observed. Sterile gowns, masks, hats [...] left the department stable condition. EBL: None. 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 HISTORY: Pain in right hip joint FINDINGS: BONES:No acute fracture or dislocation. Mild bilateral hip osteoarthropathy. Moderate degenerative changes of the spine SOFT TISSUES:Negative. No visible soft tissue swelling. EFFUSION:None visible. OTHER: Negative. IMPRESSION: Mild degenerative changes. No acute fracture Electronically authenticated by: COLLETTE ELIZONDO Date: 2021-07-14 10:08[facility] note* Diagnosis Pyogenic arthritis of right shoulder region, due to unspecified organism (HCC)- Primary SIRS (systemic inflammatory response syndrome) (HCC) Systemic inflammatory response syndrome, unspecified Septic shock (HCC) documented in this encounter [employer] Work Phone: evalkhtstt note* Diagnosis MSSA bacteremia- Primary Pyogenic arthritis of right shoulder region, due to unspecified organism (HCC) Acute cystitis without hematuria Acute cystitis Staphylococcal arthritis of right shoulder (HCC) Pyogenic arthritis, shoulder region Septicemia (HCC) Unspecified septicemia Volume overload Other fluid overload Constipation Unspecified constipation Physical debility Debility, unspecified Morbid obesity (HCC) Morbid obesity documented in this encounter [employer] Work Phone: evalomcokd note* Diagnosis Staphylococcal arthritis of right shoulder (HCC) Pyogenic arthritis, shoulder region MSSA bacteremia documented in this encounter [facility] [employer] Phone: evaluation noteNo [employer] [place] Other Evaluation note* Diagnosis Weakness- Primary Other [...] acute Rheumatoid arthritis acute Sleep apnea acute [facility] Work Phone: Evaluation note* Diagnosis Onset Date [...] mobility a cute Mild cognitive impairment ac [place] Postoperative pain acute Rheumatoid arthritis acute Sleep apnea acute [facility] Work Phone: Evaluation note* Diagnosis Extremity numbness- Primary Disturbance of skin sensation Extremity numbness Disturbance of skin sensation Electrolyte disorder (K, Cl, or Na) Electrolyte and fluid disorders not elsewhere classified documented in this encounter [facility] Diagnosis Other chronic pain- Primary Osteoarthritis of spine, unspecified spinal osteoarthritis complication status, unspecified spinal region documented in this encounter [facility] Narrative - Reported* Type Description Date [...] OF JOINT Hospitalization History SEE SURGICAL HX [facility] Other History general Narrative - Reported* Type [...]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
--- OUTSIDE RECORDS SUMMARY | 2023-03-23 11:40 | XMS_ITS | CCD ---
Author Name Unknown Address [address] [place] [address] Organization [facility] Care Team Providers Care Museum Tour Guide Name Role Phone Tom Welch MD Unavailable Bhumika Stacy DO Primary Care Provider [phone] Tom Welch MD Unavailable [phone] Bhumika Stacy DO Primary Care Provider BHUMIKA [...] Ball, Bhumika Unavailable Tom Welch MD Unavailable [phone] PROVIDER, UNKNOWN Attending Unavailable PROVIDER, UNKNOWN Admitting Unavailable PROVIDER, UNKNOWN Attending Unavailable PROVIDER, UNKNOWN Admitting Unavailable Godfrey, Dr. Bai [place] Primary Care Zenavajeniffer Stacy, Dr. Bai [place] Primary Care Zenavajeniffer Hassan ACCOUNT STRATEGIST-MACHINE SILVER STRIPPER, Lexie Zaman Attending Zena vailable Ball DO, Bhumika [employer] Consulting Unavail able Ball DO, Bhumika [place] Primary Care Unavail able Ball DO, [facility] Primary Care Unavail able Pratima BUSTILLOS, Eulogio Becker Referring Unavailable Chan BUSTILLOS, Jean-Claude Kumari Attending Unavailable Tessa BUSTILLOS, Jhoan Attending Unavailable Ball DO, Bhumika [place] Primary Care Unavail able [place] DO, Boni Ontiveros Attending Unav ailable Ball DO, Bhumika [place] Consulting Unavail able Ball DO, Bhumika [place] Primary Care Unavail able Ball, DO [place] Primary Care Provider DO Boni Lincoln Admit Provider [phone] MD Arnaud Max Attending Provider MD Moises Garcia Other Provider MD Kira Gill Other Provider MD Tom Hill Admit Provider MD Tom Hill Attending Provider [phone] VIDYA Lay Other Provider Unavailable VIDYA Gotti Other Provider Unavailable VIDYA Rider Other Provider Unavailable VIDYA Caballero Other Provider Unavailable VIDYA Canela Other Provider Unavailable VIDYA Mohamud Other Provider Unavailable MD Hamzah Groves Other Provider MD Molina Mccoy Other Provider Unavailable Dials, ACCOUNT STRATEGIST Isabel M Other Provider [phone] DO Francesco Tomas Other Provider [phone] MD Randal Moore Other Provider DO Adam Estrella Other Provider [phone] MD Arnaud Max Other Provider MD Gabby Salinas Other Provider Musa, ANP-BC Vicky Other Provider MD Kelsie Hoover Other Provider [phone] MD Yousif Toro Other Provider MD Frank Cook Other Provider MD Lawrence Ramirez Other Provider DO Boni Lincoln Other Provider MD Irma Traore Other Provider MD Yohannes Vargas Other Provider Pasquale, CAR WASH ATTENDANT-C Cathy Orlando Other Provider [phone] MD [...] Other Provider MD Karin Estevez Other Provider [phone] DO Julian Bell Other Provider MD Isabel Mcneil Other Provider MD Gregg Galvez Other Provider MD Balta Palmer Other Provider DO Neville Faulkner Other Provider Bhumika Stacy DO Primary Care Provider Moises Garcia Unavailable Bhumika Stacy DO Primary Care Provider NAMRATA POWELL Attending Unavailable CONSULT, SURGERY - NEURO Consulting Unavail able GODFREYBHUMIKA Primary Care Unavailable SYSTEM, PROVIDER NOT IN Referring Unavaila KELSIE Bowen Admitting Unavailable MD Moises Garcia Attending Provider [phone] Tom Hill Admitting Unavailable Tom Hill Attending [...] Attending Unavailable Garcia, Moises E Admitting [facility]available [facility] Arnaud Max Attending Unavailable Garcia, Moises E Consulting Unavailable Boni Lincoln Admitting Unavailable [facility] Primary Care Unavailable Jairo, Kira Bowles Consulting Unavaila CHARANJIT Carrero Attending Unavailable [place], [place] Primary Care Unavailable KOKO KELLY Attending Unavailable [facility] Primary Care Unavailable JOHNSONMARY ANN DUQUE Referring Unavailabl e BALL, [place] Primary Care Unavailable MADISYNHECTOR Referring Unavailable BALL, [place] Primary Care Unavailable BALL, [place] Primary Care Unavailable MADISYNHECTORIN Referring Unavailable MADISYNHECTOR Referring Unavailable BALL, [place] Primary Care Unavailable MADISYN, HECTOR WADE Referring Unavailable BALL, [place] Primary Care Unavailable JOHNSONMARY ANN GRIDER Referring Unavailabl e BALL, [place] Primary Care Unavailable MADISYNHECTOR Referring Unavailable BALL, [place] Primary Care Unavailable MADISYN, HECTOR BURROWSIN Referring Unavailable BALL, [place] Primary Care Unavailable Allergies Allergy Classification Reported Allergen(s) Allergy Type Date of Onset Reaction(s) Facility (2 sources) patient allergy list reviewed by nurse or physicia Propensity to adverse reactions 5 Comment:Done Ratify Other Medications Current Medications Medication Drug Class(es) [...] tablet 650 mg take 2 tablets by [facility] twice daily for pain Acetaminophen 500 MG [...] Laxative Start: 09-25-2022 Bisacodyl Active 10 MG SD Daily 0 September 25, 2022 12:00am calcium [...] 100 mg take 1 capsule by mo [facility] every twelve hours Colace 100 MG 1 capsule Orally every 12 hours as need Active docusate sodium 50 mg / sennosides, mcfp 8.6 mg oral tablet (6 sources) Start: [...] tid Jan, Active take 1 capsule by [facility] three times daily gabapentin (NEURONTIN) 300 MG [...] capsule 2 mg take 2 tablets by [facility] every twenty-four hours Imodium A-D 2 MG [...] End: 08-14-2021 morphine injection 4 mg Nystatin 337871 units/g (13 sources) Nystatin 205781 units/g applied topically as directed four times [...] DAILY@12 0 September 25, 2022 12:00am sennosides, mcfp 8.6 mg oral tablet (10 sources) take [...] 100 mL IVPB (mini-bag) polyethylene glycol 3350 74603 mg powder for oral solution (6 sources) [...] region Episodic Other aftercare (2 sources) Other vermin exterminator (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 therapy; Translations: [OTH LONG-TERM CURRENT [...] Episodic Other endocrine disorders (6 sources) Iatrogenic Flynn's disease; 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 Other endocrine disorders (7 sources) Drug-induced Digna's syndrome Chronic Other endocrine disorders (20 sources) Hypercortisolism; 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 Other fractures (6 sources) Unspecified [...] unspecified infectious and parasitic diseases; Translations: [Chronic [id number] syndrome] 09-11-2022 Chronic Other injuries and conditions [...] Name Value Interpretation Reference Range Facility [facility] 03-17-2023 [facility] Telephone (LAKEMDNA) ----- MIRIAM GERMAN ([id number]) 1955 F Date Time Provider Department 03/17/23 F PROVIDER [facility] During your visit today, we recorded the following information about you: Augusta Cho Ma 03/17/2023 11:43 AM Signed Attempted to contact patient via telephone regarding upcoming NEW patient appointment with Dr. Banerjee on 03/18/23. [facility] relaying the message below: This is the [facility] calling regarding your upcoming appointment with Dr. Banerjee. Please complete the assigned pre-visit questionnaires on [employer] prior to your appointment. To avoid a delay in your care, please bring any radiology images that have been done outside of the [facility] Systems on a disk to be [...] by AUGUSTA CHO MA on 03/17/23 Normal [facility] Hemoglobin A1Con 11-26-2022 Glucose [Mass/Vol] 97 mg/dL Normal [facility] Comment on above: Result Comment: The ADA and AACC recommend providing the estimated average glucose result to permit better patient understanding of their HBA1c result. Performed By: #### B C #### [address] [place] [address] Printing Equipment Mechanic: Collette Willard MD HbA1c (Bld) [Mass fraction] 5.0 % Normal 4.0-6.0 [facility] Comment on above: Performed By: #### B C #### [address] [place] [address] Printing Equipment Mechanic: Collette Willard MD Urinalysis, Routineon 2022 Bilirubin, SemiQt,Ur Negative Normal NEG [facility] Comment on above: Performed By: #### BRUCE Hussein #### [address] [place] [address] Printing Equipment Mechanic: Collette Willard MD Blood, Urine TRACE Abnormal NEG [facility] Comment on above: Performed By: #### U BRUCE Ragsdale #### [facility] [address] [place] [address] [place] [address] Printing Equipment Mechanic: Collette Willard MD Clarity (U) Clear Normal CLEAR [facility] Comment on above: Performed By: #### U A, UMICAO #### [facility] [address] [place] [address] Dr. [place], [place] 2814083 Printing Equipment Mechanic: Collette Willard MD Color (U) Yellow Normal YEL [facility] Comment on above: Performed By: #### U A, UMICAO #### [facility] [address] [place] [address] [place] [address] Printing Equipment Mechanic: Collette Willard MD Glucose Ql (U) Negative Normal NEG [facility] Comment on above: Performed By: #### U A, UMICAO #### [facility] [address] [place] [address] Dr. [place], [place] [phone] Printing Equipment Mechanic: Collette Willard MD Ketones Ql (U) Negative Normal NEG [facility] Comment on above: Performed By: #### U A, UMICAO #### [facility] [address] [place] [address] [place] [address] Printing Equipment Mechanic: Collette Willard MD Leukocyte esterase Test strip Ql (U) Negative Normal NEG [facility] Comment on above: Performed By: #### U A, UMICAO #### [facility] [address] [place] [address] [place] [address] Printing Equipment Mechanic: Collette Willard MD Nitrite,Ur Positive Abnormal NEG [facility] Comment on above: Performed By: #### U A, UMICAO #### [facility] [address] [place] [address] [place] [address] Printing Equipment Mechanic: Collette Willard MD PH,Ur 6.0 Normal 5.0-9.0 [facility] Comment on above: Performed By: #### U A, UMICAO #### [facility] [address] [place] [address] [place] [address] Printing Equipment Mechanic: Collette Willard MD Protein Ql (U) Negative Normal NEG [facility] Comment on above: Performed By: #### U A, UMICAO #### [address] [place], [place] 8178783 Printing Equipment Mechanic: Collette Willard MD Spec. [place],Ur 1.010 Normal 1.010-1.020 [facility] Comment on above: Performed By: #### U A, UMICAO #### [facility] [address] [place] [address] [place] [address] Printing Equipment Mechanic: Collette Willard MD Urobilinogen,Ur Normal Normal 0.0-1.[address] [facility] Comment on above: Performed By: #### U A, KARYNICAO #### [address] [place], [facility] Printing Equipment Mechanic: Collette Willard MD Urinalysis,Microon 3 Bacteria 1+ Abnormal [facility] Comment on above: Performed By: #### U AJUANO #### [address] [place], [place] 3514183 Printing Equipment Mechanic: Collette Willard MD Crystals LM Nom (Urine sed) GREATER THAN 50 Abnormal [facility] Comment on above: Result Comment: CALC IUM OXALATE Performed By: #### U A, UMICAO #### [facility] [address] [place] [address] Dr. [place], [place] 0868683 Printing Equipment Mechanic: Collette Willard MD Epithelial cells LM Ql (Urine sed) 5 TO 10 Normal 0-25 [facility] Comment on above: Performed By: #### U A, UMICAO #### [address] [place], [place] 0932383 Printing Equipment Mechanic: Collette Willard MD Urine RBC's 0 TO 2 Normal 0-2 [facility] Comment on above: Performed By: #### U A, UMICAO #### [facility] [address] [place], [place] 2633983 Printing Equipment Mechanic: Collette Willard MD Urine WBC's None Normal 0-5 [facility] Comment on above: Performed By: #### U A, UMICAO #### [facility] [address] [place], [place] 4278783 Printing Equipment Mechanic: Collette Willard MD Drug Scr, Abuse, Uron 2022 Amphetamine(s),Ur Negative Normal NEG [facility] Comment on above: Result Comment: (Positive cutoff 1000 ng/mL) Performed By: #### U A, KAYLA, UMICAO #### [address] [place], [place] 5019783 Printing Equipment Mechanic: Collette Willard MD Barbiturate(s),Ur Negative Normal NEG [facility] Comment on above: Result Comment: (Positive cutoff 200 ng/mL) Performed By: #### U A, KAYLA, UMICAO #### [address] [place], [place] 3891183 Printing Equipment Mechanic: Collette Willard MD Benzodiazepine(s) Negative Normal NEG [facility] Comment on above: Result Comment: (Positive cutoff 200 ng/mL) Performed By: #### U A, KAYLA, UMICAO #### [facility] [address] [place] [address] Dr. [place], [place] 9251283 Printing Equipment Mechanic: Collette Willard MD Buprenorphrine, Ur Negative Normal NEG [facility] Comment on above: Result Comment: (Positive cutoff 5 ng/ml) Performed By: #### U A, KAYLA, UMICAO #### [facility] [address] [place], [place] 5025583 Printing Equipment Mechanic: Collette Willard MD Cannabinoid(s),Ur Negative Normal NEG [facility] Comment on above: Result Comment: (Positive cutoff 50 ng/mL) Performed By: #### U A, KAYLA, UMICAO #### [address] [place], [place] 1549983 Printing Equipment Mechanic: Collette Willard MD Cocaine Metabolite Negative Normal [facility] Comment on above: Result Comment: (Positive cutoff 300 ng/mL) Performed By: #### U A, KAYLA, UMICAO #### [address] [place], [place] 4682483 Printing Equipment Mechanic: Collette Willard MD Fentanyl, Urine Negative Normal [facility] Comment on above: Result Comment: (Positive cutoff 5 ng/ml) Performed By: #### U A, KAYLA, UMICAO #### [address] [place], [place] 6627583 Printing Equipment Mechanic: Collette Willard MD Interpretive Info Assay provides medic al screening only. The absence of expected drug(s) and/or Normal [facility] Comment on above: Result Comment: meta bolite(s) may indicate diluted or adulterated urine, limitations of testing or timing of collection. Testing for legal purposes should be confirmed by another method. To request confirmation of test result, please call the lab within 7 days of sample submission. Performed By: #### U A, KAYLA, UMICAO #### [address] [place], [place] 1703483 Printing Equipment Mechanic: Collette Willard MD Methadone Ql (U) Negative Normal NEG [facility] Comment on above: Result Comment: (Positive cutoff 300 ng/mL) Performed By: #### U A, KAYLA, UMICAO #### [address] [place], [place] 6961083 Printing Equipment Mechanic: Collette Willard MD Opiate(s), Ur Negative Normal NEG [facility] Comment on above: Result Comment: (Positive cutoff 300 ng/mL) Performed By: #### U A, KAYLA, UMICAO #### [address] [place], [place] 6621083 Printing Equipment Mechanic: Collette Willard MD Oxycodone, Urine Negative Normal NEG [facility] Comment on above: Result Comment: (Positive cutoff 100 ng/mL) Performed By: #### U A, KAYLA, UMICAO #### [facility] [address] [place] [address] Dr. [place], [place] 6247783 Printing Equipment Mechanic: Collette Willard MD Phencyclidine, Ur Negative Normal NEG [facility] Comment on above: Result Comment: (Positive cutoff 25 ng/mL) Performed By: #### U A, KAYLA, UMICAO #### [address] [place], [place] 6678383 Printing Equipment Mechanic: Collette Willard MD Urinalysis, Routineon 2022 Bilirubin, SemiQt,Ur SMALL Abnormal NEG [facility] Comment on above: Performed By: #### U A, KAYLA, UMICAO #### [address] [place], [place] 6708083 Printing Equipment Mechanic: Collette Willard MD Blood, Urine 1+ Abnormal NEG [facility] Comment on above: Performed By: #### U A, KAYLA, UMICAO #### [address] [place], [place] 4412883 Printing Equipment Mechanic: Collette Willard MD Clarity (U) SLIGHTLY CLOUDY Abnormal CLEAR [facility] Comment on above: Performed By: #### U A, KAYLA, UMICAO #### [facility] [address] [place] [address] Dr. [place], [place] 8659583 Printing Equipment Mechanic: Collette Willard MD Color (U) Yellow Normal YEL [facility] Comment on above: Performed By: #### U A, KAYLA, UMICAO #### [facility] [address] [place] [address] Dr. [place], [place] 0482783 Printing Equipment Mechanic: Collette Willard MD Glucose Ql (U) Negative Normal NEG [facility] Comment on above: Performed By: #### U A, KAYLA, UMICAO #### [address] [place], [place] 9751783 Printing Equipment Mechanic: Collette Willard MD Ketones Ql (U) Negative Normal NEG [facility] Comment on above: Performed By: #### U A, KAYLA, UMICAO #### [address] [place], [place] [address] Printing Equipment Mechanic: Collette Willard MD Leukocyte esterase Test strip Ql (U) Negative Normal NEG [facility] Comment on above: Performed By: #### U A, KAYLA, UMICAO #### [address] [place], [facility] Printing Equipment Mechanic: Collette Willard MD Nitrite,Ur Negative Normal NEG [facility] Comment on above: Performed By: #### U A, KAYLA, UMICAO #### [address] [place], [facility] Printing Equipment Mechanic: Collette Willard MD PH,Ur 5.5 Normal 5.0-9.0 [facility] Comment on above: Performed By: #### U A, KAYLA, UMICAO #### [address] [place], [place] [address] Printing Equipment Mechanic: Collette Willard MD Protein Ql (U) TRACE Abnormal NEG [facility] Comment on above: Performed By: #### U A, KAYLA, UMICAO #### [address] [place], [place] [address] Printing Equipment Mechanic: Collette Willard MD Spec. [place],Ur 1.020 Normal 1.010-1.020 [facility] Comment on above: Performed By: #### U A, KAYLA, UMICAO #### [address] [place], [facility] Printing Equipment Mechanic: Collette Willard MD Urobilinogen,Ur Normal Normal 0.0-1.[address] [facility] Comment on above: Performed By: #### U A KAYLA UMICAO #### [facility] [address] [place], [place] 0824483 Printing Equipment Mechanic: Collette Willard MD Urinalysis,Microon 3 Bacteria 1+ Abnormal NONE [facility] Comment on above: Performed By: #### U A KAYLA, UMICAO #### [facility] [address] [place], [place] 6723483 Printing Equipment Mechanic: Collette Willard MD Epithelial cells LM Ql (Urine sed) 2 TO 5 Normal 0-25 [facility] Comment on above: Performed By: #### U AKAYLA UMICAO #### [facility] [address] [place] [address] Dr. [place], [place] 4465383 Printing Equipment Mechanic: Collette Willard MD Mucus Strands TRACE Abnormal NONE [facility] Comment on above: Performed By: #### U AKAYLA UMICAO #### [facility] [address] [place] [address] Dr. [place], [place] 4026583 Printing Equipment Mechanic: Collette Willard MD Urine RBC's 0 TO 2 Normal 0-2 [facility] Comment on above: Performed By: #### U A KAYLAKARYN NegroICAO #### [facility] [address] [place] [address] Dr. [place], [place] 3373883 Printing Equipment Mechanic: Collette Willard MD Urine WBC's 0 TO 2 Normal 0-5 [facility] Comment on above: Performed By: #### U A KAYLA UMICAO #### [facility] [address] [place], [place] 0849083 Printing Equipment Mechanic: Collette Willard MD XR cervical spine 2Von 11-14 XR cervical spine 2V [facility] Main [place] [address] [place], [place] [address] XRay Report Signed Patient: Miriam German MR#: [id number] : 1955 Acct:[id number] Age/Sex: 67 / F ADM Date: 11/14/22 Loc: XD Room: Type: [facility] Attending Dr: Moises Garcia MD Copies to: [...] Coates Jr., DNickONick11/14/2022 3:16 PM Dictation Location: [place] [address] Transcribed By: [facility] 11/14/22 151 Dictated By: Tom Coates Jr, DO 11/14/22 151 Signed By: 11/14/22 151 [facility] CBC with Auto Differentialon 10-27-2022 Basophils (Bld) [#/Vol] 0.06 10*3/uL [facility] Basophils/100 WBC (Bld) 1 % 0 - 2 % [facility] Eosinophils (Bld) [#/Vol] 0.04 10*3/uL [facility] Eosinophils/100 WBC (Bld) 0 % Low 1 - 4 % [employer] Erythrocyte distribution width (RBC) [Ratio] 14.6 % High 11.8 - 14.4 % [employer] [facility] Hematocrit (Bld) [Volume fraction] 40.7 % 36.3 - 47.1 % [employer] [facility]60mo Hemoglobin (Bld) [Mass/Vol] 13.0 g/dL 11.9 - 15.1 g/dL [facility] Immature granulocytes (Bld) [#/Vol] 0.34 10*3/uL High [facility] Immature granulocytes/100 WBC (Bld) 3 % High 0 [facility] Interpretation and review of laboratory results Abnormal [facility] Lymphocytes/100 WBC (Bld) 10 % Low 24 - 43 % [facility] Lymphocytes/100 WBC (Bld) 0.98 % Low [facility] MCH (RBC) [Entitic mass] 30.2 pg 25.2 - 33.5 pg [facility] MCHC (RBC) [Mass/Vol] 31.9 g/dL 28.4 - 34.8 g/dL [facility] MCV (RBC) [Entitic vol] 94.4 fL 82.6 - 102.9 fL [facility] Monocytes/100 WBC (Bld) 3 % 3 - 12 % [facility] Monocytes/100 WBC (Bld) 0.35 % [facility] Neutrophils/100 WBC (Bld) 83 % High 36 - 65 % [facility] Nucleated RBC/100 WBC (Bld) [Ratio] 0.0 % 0.0 per 100 WBC [facility] Platelet mean volume (Bld) [Entitic vol] 9.6 fL 8.1 - 13.5 fL [facility] Platelets (Bld) [#/Vol] 166 10*3/uL [facility] RBC (Bld) [#/Vol] 4.31 10*6/uL 3.95 - 5.1 1 m/uL [facility] Segmented neutrophils/100 WBC (Bld) 8.60 % High [facility] WBC other (Bld) [#/Vol] 10.4 [facility] CBC with Diffon 10-27-2022 Abs. Basophil 0.06 k/uL Normal 0.00-0.[address] [facility] Comment on above: Performed By: #### C P, CBC #### [facility] [address] [place] [address] Printing Equipment Mechanic: Collette Willard MD Abs.Imm.Granulocyte 0.34 k/uL High 0.00-0.30 [facility] Comment on above: Performed By: #### C P, CBC #### [address] [place] [address] Printing Equipment Mechanic: Collette Willard MD Abs.Neutrophil (Seg) 8.60 k/uL High 1.50-8.10 [facility] Comment on above: Performed By: #### C P, CBC #### [address] [place], [facility] Printing Equipment Mechanic: Collette Willard MD Basophils/100 WBC (Bld) 1 % Normal 0-2 [facility] Comment on above: Performed By: #### C P, CBC #### [address] [place] [address] Printing Equipment Mechanic: Collette Willard MD Eosinophils (Bld) [#/Vol] 0.04 10*3/uL Normal 0.00-0.44 [facility] Comment on above: Performed By: #### C P, CBC #### [address] [place] [address] Printing Equipment Mechanic: Collette Willard MD Eosinophils/100 WBC (Bld) 0 % Low 1-4 [facility] Comment on above: Performed By: #### C P, CBC #### [address] [place], [facility] Printing Equipment Mechanic: Collette Willard MD Erythrocyte distribution width (RBC) [Ratio] 14.6 % High 11.8-14.4 [facility] Comment on above: Performed By: #### C P, CBC #### [address] [place] [id number] Printing Equipment Mechanic: Collette Willard MD Hematocrit (Bld) [Volume fraction] 40.7 % Normal 36.3-47.1 [facility] Comment on above: Performed By: #### C P, CBC #### [facility] [address] [place], [place] [phone] Printing Equipment Mechanic: Collette Willard MD Hemoglobin (Bld) [Mass/Vol] 13.0 g/dL Normal 11.9-15.1 [facility] Comment on above: Performed By: #### C P, CBC #### [facility] [address] [place], [facility] Printing Equipment Mechanic: Collette Willard MD Immature granulocytes/100 WBC (Bld) 3 % High 0 [facility] Comment on above: Performed By: #### C P, CBC #### [address] [place] [address] Printing Equipment Mechanic: Collette Willard MD Lymphocytes (Bld) [#/Vol] 0.98 10*3/uL Low 1.10-3.70 [facility] Comment on above: Performed By: #### C P, CBC #### [address] [place], [facility] Printing Equipment Mechanic: Collette Willard MD Lymphocytes/100 WBC (Bld) 10 % Low 24-43 [facility] Comment on above: Performed By: #### C P, CBC #### [address] [place] [address] Printing Equipment Mechanic: Collette Willard MD MCH (RBC) [Entitic mass] 30.2 pg Normal 25.2-33.5 [facility] Comment on above: Performed By: #### C P, CBC #### [address] [place] [address] Printing Equipment Mechanic: Collette Willard MD MCHC (RBC) [Mass/Vol] 31.9 g/dL Normal 28.4-34.8 [facility] Comment on above: Performed By: #### C P, CBC #### [address] [place] [address] Printing Equipment Mechanic: Collette Willard MD MCV (RBC) [Entitic vol] 94.4 fL Normal 82.6-102.9 [facility] Comment on above: Performed By: #### C P, CBC #### [facility] [address] [place], [place] [phone] Printing Equipment Mechanic: Collette Willard MD Monocytes (Bld) [#/Vol] 0.35 10*3/uL Normal 0.10-1.20 [facility] Comment on above: Performed By: #### C P, CBC #### [address] [place], [place] [phone] Printing Equipment Mechanic: Collette Willard MD Monocytes/100 WBC (Bld) 3 % Normal 3-12 [facility] Comment on above: Performed By: #### C P, CBC #### [address] [place], [place] [phone] Printing Equipment Mechanic: Collette Willard MD Neutrophil (Seg) 83 % High 36-65 [facility] Comment on above: Performed By: #### C P, CBC #### [address] [place], [place] [phone] Printing Equipment Mechanic: Collette Willard MD NRBC Automated 0.0 per 100 WBC Normal 0.0 [facility] Comment on above: Performed By: #### C P, CBC #### [address] [place], [place] [phone] Printing Equipment Mechanic: Collette Willard MD Platelet mean volume (Bld) [Entitic vol] 9.6 fL Normal 8.1-13.5 [facility] Comment on above: Performed By: #### C P, CBC #### [address] [place] [address] Printing Equipment Mechanic: Collette Willard MD Platelets (Bld) [#/Vol] 166 10*3/uL Normal 138-453 [facility] Comment on above: Performed By: #### C P, CBC #### [facility] [address] [place] [address] Printing Equipment Mechanic: Collette Willard MD RBC (Bld) [#/Vol] 4.31 10*6/uL Normal 3.95-5.11 [facility] Comment on above: Performed By: #### C P, CBC #### [facility] [address] [place] [address] Printing Equipment Mechanic: Collette Willard MD WBC (Bld) [#/Vol] 10.4 10*3/uL Normal 3.5-11.3 [facility] Comment on above: Performed By: #### C P, CBC #### [facility] [address] [place] [address] Printing Equipment Mechanic: Collette Willard MD [facility] 10-27-2022 Albumin [Mass/Vol] 3.6 g/dL 3.5 - 5.2 g/dL [facility] Albumin/Globulin [Mass ratio] 1.6 {ratio} 1.0 - 2.5 [facility] ALP [Catalytic activity/Vol] 152 U/L High 35 - 104 U/L [facility] ALT [Catalytic activity/Vol] 47 U/L High 5 - 33 U/L [facility] Anion gap [Moles/Vol] 9 mmol/L 9 - 17 mmol/L [facility] AST [Catalytic activity/Vol] 38 U/L High NINF - 32 U/L [facility] Bilirubin [Mass/Vol] 0.3 mg/dL 0.3 - 1 .2 mg/dL [facility] Calcium [Mass/Vol] 9.5 mg/dL 8.6 - 10. 4 mg/dL [facility] Chloride [Moles/Vol] 102 mmol/L 98 - 10 7 mmol/L [facility] CO2 [Moles/Vol] 30 mmol/L 20 - 31 mmol/L [facility] Creatinine [Mass/Vol] 0.3 mg/dL Low 0.5 - 0.9 mg/dL [facility] GFR/1.73 sq M.predicted MDRD (S/P/Bld) [Vol rate/Area] - PINF [facility] Comment on above: These results [...] 118 mg/dL High 70 - 99 mg/dL [facility] [employer] Interpretation and review of laboratory results Abnormal [facility] Potassium [Moles/Vol] 4.1 mmol/L 3.7 - 5.3 mmol/L [facility] [employer] Protein [Mass/Vol] 5.9 g/dL Low 6.4 - 8.3 g/dL [facility] Sodium [Moles/Vol] 141 mmol/L 135 - 144 mmol/L [facility] Urea nitrogen [Mass/Vol] 11 mg/dL 8 - 23 mg/dL [facility] Urea nitrogen/Creatinine [Mass ratio] 37 mg/mg High 9 - [address] [facility] [address] CERVICAL SPINE WO CONTRAS Ton [...] Jaiden Mendez MD 10/27/22 Final result Normal [facility] CT CSpine W/O Contraston No acute fracture or malalignment of the cervical spine. Remote dens fracture with posterior fixation at C1-C2. 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 [facility] EXAMINATION: CT OF THE CERVICAL SPINE [...] There is no prevertebral soft tissue swelling. [facility] Jaiden Mendez MD - 10/27/2022 EXAMINATION: [...] cervical spine with bilateral bony foraminal narrowing. [facility] Radiology Study observation (narrative) [facility] CT HEAD WO CONTRASTon 2022 [...] Jaiden Mendez MD 10/27/22 Final result Normal [facility] CT Head W/O Contraston 10-27 No acute intracrania l abnormality. Fluid throughout the mastoid air cells representing effusion versus a degree of mastoiditis. [facility] EXAMINATION: CT OF THE HEAD WITHOUT [...] of the visualized skull or soft tissues. [facility] Jaiden Mendez MD - 10/27/2022 EXAMINATION: [...] representing effusion versus a degree of mastoiditis. [facility] Radiology Study observation (narrative) [facility] CT Head W/O ContrastOrdered By: Jaiden Mendez on 10-27-2022 [facility] Work Phone: Comp Metabolic Profon 2022 Albumin [Mass/Vol] 3.6 g/dL Normal 3.5-5.2 [facility] Comment on above: Performed By: #### C P, CBC #### [facility] [address] [place] [address] [place] [address] Printing Equipment Mechanic: Collette Willard MD Albumin/Glob Ratio 1.6 Normal 1.0-2.5 [facility] Comment on above: Performed By: #### C P, CBC #### [facility] [address] [place] [address] [place] [address] Printing Equipment Mechanic: Collette Willard MD Alkaline Phos 152 U/L High 35-[address] [facility] Comment on above: Performed By: #### C P, CBC #### [facility] [address] [place] [address] Printing Equipment Mechanic: Collette Willard MD ALT [Catalytic activity/Vol] 47 U/L High 5-33 [facility] Comment on above: Performed By: #### C P, CBC #### [facility] [address] [place] [address] Printing Equipment Mechanic: Collette Willard MD Anion gap [Moles/Vol] 9 mmol/L Normal 9-17 [facility] Comment on above: Performed By: #### C P, CBC #### [facility] [address] [place], [place] [phone] Printing Equipment Mechanic: Collette Willard MD AST [Catalytic activity/Vol] 38 U/L High <32 [facility] Comment on above: Performed By: #### C P, CBC #### [facility] [address] [place], [place] [phone] Printing Equipment Mechanic: Collette Willard MD Bilirubin [Mass/Vol] 0.3 mg/dL Normal 0.3-1.2 [facility] Comment on above: Performed By: #### C P, CBC #### [facility] [address] [place], [place] [phone] Printing Equipment Mechanic: Collette Willard MD BUN/CRE Ratio 37 High 9-[address] [facility] Comment on above: Performed By: #### C P, CBC #### [facility] [address] [place], [place] [phone] Printing Equipment Mechanic: Collette Willard MD Calcium [Mass/Vol] 9.5 mg/dL Normal 8.6-10.4 [facility] Comment on above: Performed By: #### C P, CBC #### [facility] [address] [place], [place] [phone] Printing Equipment Mechanic: Collette Willard MD Chloride [Moles/Vol] 102 mmol/L Normal 98-107 [facility] Comment on above: Performed By: #### C P, CBC #### [facility] [address] [place], [place] [phone] Printing Equipment Mechanic: Collette Willard MD CO2 [Moles/Vol] 30 mmol/L Normal 20-[address] [facility] Comment on above: Performed By: #### C P, CBC #### [facility] [address] [place] [address] Printing Equipment Mechanic: Collette Willard MD Creatinine [Mass/Vol] 0.3 mg/dL Low 0.5-0.9 [facility] Comment on above: Performed By: #### C P, CBC #### [facility] [address] [place] [address] Printing Equipment Mechanic: Collette Willard MD GFR/1.73 sq M.predicted among non-blacks MDRD (S/P/Bld) [Vol rate/Area] mL/min/{1.73_m2} Normal >60 [facility] Comment on above: Result Comment: [...] Performed By: #### C P, CBC #### [facility] [address] [place] [address] Printing Equipment Mechanic: Collette Willard MD Glucose [Mass/Vol] 118 mg/dL High 70-99 [facility] Comment on above: Performed By: #### C P, CBC #### [facility] [address] [place] [address] Printing Equipment Mechanic: Collette Willard MD Potassium [Moles/Vol] 4.1 mmol/L Normal 3.7-5.3 [facility] Comment on above: Performed By: #### C P, CBC #### [facility] [address] [place] [address] Printing Equipment Mechanic: Collette Willard MD Protein [Mass/Vol] 5.9 g/dL Low 6.4-8.3 [facility] Comment on above: Performed By: #### C P, CBC #### [facility] [address] [place] [address] Printing Equipment Mechanic: Collette Willard MD Sodium [Moles/Vol] 141 mmol/L Normal 135-144 [facility] Comment on above: Performed By: #### C P, CBC #### [facility] [address] [place] [address] Printing Equipment Mechanic: Collette Willard MD Urea nitrogen [Mass/Vol] 11 mg/dL Normal 11-12 [facility] Comment on above: Performed By: #### C P, CBC #### [facility] [address] [place] [address] Printing Equipment Mechanic: Collette Willard MD ABORH TYPE RECONFIRMATIONon 10-17-2022 ABO/RH(D) TYPE Positive Normal [facility] Comment on above: Result Comment: @ 04:42 by AS1: Performed By: #### T YPEC #### [facility] (DEFAULT) [address] [place] [address] ABO/RH(D) TYPE Positive [facility] Comment on above: @10/17/22 04:42 by A S1: [facility] No Panel Informationon 10-16 [facility] XR Cervical spine 2 Viewson 10-16-2022 [...] given the lack of recent intervention. [facility] Radiology Study observation (narrative) [facility] XR Cervical spine 2 ViewsOrd ered By: Radha Muniz on 10-16-2022 [facility] Work Phone: XR SPINE CERVICAL 2 [...] given the lack of recent intervention. Normal [facility] EXTRA MICROon 10-15-2022 [facility] MRI BRAIN WO CONTRASTon - MRI [...] Nahid Jeffries MD 10/14/22 Final result Normal [facility] MRI CERVICAL SPINE W WO [...] Nahid Jeffries MD 10/14/22 Final result Normal [facility] BLOOD CULTUREon 10-14-2022 Bacteria identified Cx Nom (Unsp spec) NO GROWTH DAY 5 OF 5 Normal [facility] Comment on above: Order Comment: 2 Bot [...] Performed By: #### B LDCULT #### [facility] (DEFAULT) [address] [address] Order Comment: 2 Bot tles (1 Set [...] Performed By: #### C 7ED #### [facility] (DEFAULT) [address] [address] C REACTIVE PROTEINon 023 CRP [Mass/Vol] 17.94 mg/L High <10.00 [facility] Comment on above: Performed By: #### C 7ED #### [facility] (DEFAULT) [address] [address] CRP High sensitivity method [Mass/Vol] 17.94 mg/L High NINF - 10.00 mg/L [facility] Interpretation and review of laboratory results Abnormal [facility] CBC AND ELECTRONIC DIFFon Abs Eos Auto < Normal 0.00-0.42 [facility] Comment on above: Performed By: #### L [id number] #### [facility] (DEFAULT) [address] [address] Basophils (Bld) [#/Vol] 0.05 10*3/uL Normal 0.00-0.15 [facility] Comment on above: Performed By: #### L [id number] #### [facility] (DEFAULT) [address] [address] Basophils/100 WBC (Bld) 0.7 % Normal [facility] Comment on above: Performed By: #### L [id number] #### [facility] (DEFAULT) [address] [address] DIFF STATUS Electronic Differential Normal [facility] Comment on above: Performed By: #### L [id number] #### [facility] (DEFAULT) [address] [address] Eosinophils/100 WBC (Bld) 0.0 % Normal [facility] Comment on above: Performed By: #### L [id number] #### [facility] (DEFAULT) [address] [address] Hematocrit (Bld) [Volume fraction] 45.9 % High 34.9-44.3 [facility] Comment on above: Performed By: #### L [id number] #### [facility] (DEFAULT) [address] [address] Hemoglobin (Bld) [Mass/Vol] 14.6 g/dL Normal 11.4-15.2 [facility] Comment on above: Performed By: #### L [id number] #### [facility] (DEFAULT) [address] [address] Immature Grans % 4.7 % Normal [facility] Comment on above: Performed By: #### L [id number] #### [facility] (DEFAULT) [address] [address] Immature Grans Absolute 0.36 K/uL High <=0.08 [facility] Comment on above: Performed By: #### L [id number] #### [facility] (DEFAULT) [address] [address] Lymphocytes (Bld) [#/Vol] 0.40 10*3/uL Low 1.16-3.51 [facility] Comment on above: Performed By: #### L [id number] #### [facility] (DEFAULT) [address] [address] Lymphocytes/100 WBC (Bld) 5.2 % Normal [facility] Comment on above: Performed By: #### L [id number] #### [facility] (DEFAULT) [address] [address] MCV (RBC) [Entitic vol] 96.2 fL Normal 79.6-97.7 [facility] Comment on above: Performed By: #### L [id number] #### [facility] (DEFAULT) [address] [address] Mean Cell Hgb 30.6 pg Normal 25.9-33.9 [facility] Comment on above: Performed By: #### L [id number] #### [facility] (DEFAULT) [address] [address] Mean Cell Hgb Conc 31.8 g/dL Normal 31.4-35.9 [facility] Comment on above: Performed By: #### L [id number] #### [facility] (DEFAULT) [address] [address] Monocytes (Bld) [#/Vol] 0.09 10*3/uL Low 0.22-0.87 [facility] Comment on above: Performed By: #### L [id number] #### [facility] (DEFAULT) [address] [address] Monocytes/100 WBC (Bld) 1.2 % Normal [facility] Comment on above: Performed By: #### L [id number] #### [facility] (DEFAULT) [address] [address] Nucleated RBC 0.0 /100 WBC Normal <=0.2 [facility] Comment on above: Performed By: #### L [id number] #### [facility] (DEFAULT) [address] [address] Platelet mean volume (Bld) [Entitic vol] 9.5 fL Normal 8.5-12.2 [facility] Comment on above: Performed By: #### L [id number] #### [facility] (DEFAULT) [address] [address] Platelets (Bld) [#/Vol] 199 10*3/uL Normal 150-393 [facility] Comment on above: Performed By: #### L [id number] #### [facility] (DEFAULT) [address] [place] [address] RBC (Bld) [#/Vol] 4.77 10*6/uL Normal 3.91-5.04 [facility] Comment on above: Performed By: #### L [id number] #### [facility] (DEFAULT) [address] [place] [address] RBC Distribution 13.6 % Normal 10.8-14.9 [facility] Comment on above: Performed By: #### L [id number] #### [facility] (DEFAULT) [address] [place] [address] Segs + Bands Auto 88.2 % Normal [facility] Comment on above: Performed By: #### L [id number] #### [facility] (DEFAULT) [address] [place] [address] Segs + Bands,Absolute Auto 6.75 K/uL Normal 1.64-7.28 [facility] Comment on above: Performed By: #### L [id number] #### [facility] (DEFAULT) [address] [place] [address] WBC (Bld) [#/Vol] 7.65 10*3/uL Normal 3.99-11.19 [facility] Comment on above: Performed By: #### L [id number] #### [facility] (DEFAULT) [address] [place] [address] Basophils (Bld) [#/Vol] 0.05 10*3/uL 0.00 - 0.15 K/uL [facility] Basophils/100 WBC (Bld) 0.7 % [facility] Differential cell count method Nom (Bld) Electronic Differential [facility] Eosinophils (Bld) [#/Vol] K/uL 0.00 - 0.42 K/uL [facility] Eosinophils/100 WBC (Bld) 0.0 % [facility] Erythrocyte distribution width (RBC) [Ratio] 13.6 % 10.8 - 14.9 % [facility] Hematocrit (Bld) [Volume fraction] 45.9 % High 34.9 - 44.3 % [facility] Hemoglobin (Bld) [Mass/Vol] 14.6 g/dL 11.4 - 15.2 g/dL [facility] Immature granulocytes (Bld) [#/Vol] 0.36 10*3/uL High NINF - 0.08 K/uL [facility] Immature granulocytes/100 WBC (Bld) 4.7 % [facility] Interpretation and review of laboratory results Abnormal [facility] Lymphocytes (Bld) [#/Vol] 0.40 10*3/uL Low 1.16 - 3.51 K/uL [facility] Lymphocytes/100 WBC (Bld) 5.2 % [facility] MCH (RBC) [Entitic mass] 30.6 pg 25.9 - 33.9 pg [facility] MCHC (RBC) [Mass/Vol] 31.8 g/dL 31.4 - 35.9 g/dL [facility] MCV (RBC) [Entitic vol] 96.2 fL 79.6 - 97.7 fL [facility] Monocytes (Bld) [#/Vol] 0.09 10*3/uL Low 0.22 - 0.87 K/uL [facility] Monocytes/100 WBC (Bld) 1.2 % [facility] Neutrophils (Bld) [#/Vol] 6.75 10*3/uL 1.64 - 7.28 K/uL [facility] Nucleated RBC/100 WBC (Bld) [Ratio] 0.0 % [facility] Platelet mean volume (Bld) [Entitic vol] 9.5 fL 8.5 - 12.2 fL [facility] Platelets (Bld) [#/Vol] 199 10*3/uL 150 - 393 K/uL [facility] RBC (Bld) [#/Vol] 4.77 10*6/uL [facility] Segmented neutrophils/100 WBC (Bld) 88.2 % [facility] WBC (Bld) [#/Vol] 7.65 10*3/uL 3.99 - 11.19 K/uL [facility] CHM 7 - EDon 10-14-2022 Anion gap [Moles/Vol] 15 mmol/L Normal 7-17 [facility] Comment on above: Performed By: #### Krista MarcD #### [facility] (DEFAULT) [address] [place] [address] Chloride [Moles/Vol] 103 mmol/L Normal 98-108 [facility] Comment on above: Performed By: #### Krista 7ED #### [facility] (DEFAULT) [address] [place] [address] CO2 [Moles/Vol] 31 mmol/L Normal 21-31 [facility] Comment on above: Performed By: #### Krista 7ED #### [facility] (DEFAULT) [address] [place] [address] Creatinine [Mass/Vol] 0.45 mg/dL Low 0.50-1.20 [facility] Comment on above: Performed By: #### Krista 7ED #### [facility] (DEFAULT) [address] [place] [address] eGFR, CKD-EPI, Female > Normal >=60 [facility] Comment on above: Result Comment: Repo rted eGFR is based on the CKD-EPI 2020 equation using creatinine, age, and sex. Performed By: #### C 7ED #### [facility] (DEFAULT) [address] [place] [address] Glucose [Mass/Vol] 149 mg/dL High 70-99 [facility] Comment on above: Performed By: #### Krista 7ED #### [facility] (DEFAULT) [address] [place] [address] Osmolality [Osmolality] 306 mosm/kg High 278-305 [facility] Comment on above: Performed By: #### Krista 7ED #### [facility] (DEFAULT) [address] [place] [address] Potassium [Moles/Vol] 3.7 mmol/L Normal 3.5-5.0 [facility] Comment on above: Performed By: #### C 7ED #### [facility] (DEFAULT) [address] [place] [address] Sodium [Moles/Vol] 145 mmol/L Normal 135-145 [facility] Comment on above: Performed By: #### C 7ED #### [facility] (DEFAULT) [address] [place] [address] Urea nitrogen [Mass/Vol] 17 mg/dL Normal 7-25 [facility] Comment on above: Performed By: #### C 7ED #### [facility] (DEFAULT) [address] [place] [address] Urea nitrogen/Creatinine [Mass ratio] 38 mg/mg Normal [facility] Comment on above: Performed By: #### C 7ED #### [facility] (DEFAULT) [address] [place] [address] Anion gap [Moles/Vol] 15 mmol/L 7 - 17 mmol/L [facility] Chloride [Moles/Vol] 103 mmol/L 98 - 10 8 mmol/L [facility] CO2 [Moles/Vol] 31 mmol/L 21 - 31 mmol/L [facility] Creatinine [Mass/Vol] 0.45 mg/dL Low 0.50 - 1.20 mg/dL [facility] GFR/1.73 sq M.predicted CKD-EPI (S/P/Bld) [Vol rate/Area] - [facility] Comment on above: Reported eGFR is bas ed on the CKD-EPI 2020 equation using creatinine, age, and sex. Glucose [Mass/Vol] 149 mg/dL High 70 - 99 mg/dL [facility] Interpretation and review of laboratory results Abnormal [facility] Osmolality Calc [Osmolality] 306 High [facility] Potassium [Moles/Vol] 3.7 mmol/L 3.5 - 5.0 mmol/L [facility] Sodium [Moles/Vol] 145 mmol/L 135 - 145 mmol/L [facility] Urea nitrogen [Mass/Vol] 17 mg/dL 7 - 25 mg/dL [facility] Urea nitrogen/Creatinine [Mass ratio] 38 mg/mg [facility] CT Cervical spine WO contras ton [...] I have reviewed and approved this report. [facility] Radiology Study observation (narrative) [facility] CT SPINE CERVICAL WITHOUT CO NTRASTon [...] have reviewed and approved this report. Normal [facility] LACTATE, BLOODon 10-14-2022 Lactate, Blood 2.1 mmol/L High 0.5-1.6 [facility] Comment on above: Performed By: #### L ACT #### [facility] (DEFAULT) [address] [place] [phone] LACTATE, BLOODOrdered By: Mehran Castano on 10-14-2022 Interpretation and review of laboratory results Abnormal [facility] Lactate [Moles/Vol] 2.1 mmol/L High 0.5 - 1. 6 mmol/L [facility] No Panel Informationon 10-14 [facility] PT,INR,PTTon 10-14-2022 aPTT Coag (Bld) [Time] 20.9 s Low 24.0-34.3 [facility] Comment on above: Result Comment: Spec imen integrity checked. Performed By: #### P TPTT #### [facility] (DEFAULT) [address] [place] [phone] INR Coag (PPP) [Relative time] 0.9 {INR} Normal 0.9-1.1 [facility] Comment on above: Performed By: #### P TPTT #### [facility] (DEFAULT) [address] [place] [phone] PT Coag (PPP) [Time] 12.1 s Normal 11.9-14.2 [facility] Comment on above: Performed By: #### P TPTT #### [facility] (DEFAULT) [address] [place] [phone] PT,INR,PTTOrdered By: Saloni Lara on 10-14-2022 aPTT Coag (PPP) [Time] 20.9 s Low [facility] Comment on above: Specimen integrity c hecked. INR Coag (Bld) [Relative time] 0.9 {INR} 0.9 - 1.1 [facility] Interpretation and review of laboratory results Abnormal [facility] PT Coag (PPP) [Time] 12.1 s [facility] Portable XR Chest Viewson IMPRESSION: 1. [...] have reviewed and approved this report. [facility] Portable XR Chest ViewsOrder ed By: Jorge Dowd on 10-14-2022 [facility] Work Phone: SCREEN: MRSA/MSSAOrdered By: Leidy Burk on 10-14-2022 Interpretation and review of laboratory results Normal [facility] Methicillin Resistant S. Aureus By Pcr Negative Negative [facility] Staphylococcus Aureus By Pcr Negative Negative [facility] This test was perfor med using [...] by the Clinical Microbiology Laboratory at The [facility]. It has not been cleared or approved by the FDA.The laboratory is regulated under CLIA as qualified to perform high-complexity testing. This test is used for clinical purposes. It should not be regarded as investigational or for research. [facility] SCREEN: MRSA/MSSAon 10-15-19 23 Methicillin Resistant S. Aureus By Pcr Negative Normal Negative [facility] Comment on above: Order Comment: Colle ct [...] by the Clinical Microbiology Laboratory at [facility]. It has not been cleared or approved by the FDA.The laboratory is regulated under CLIA as qualified to perform high-complexity testing. This test is used for clinical purposes. It should not be regarded as investigational or for research. Performed By: #### C 7ED #### [facility] (DEFAULT) [address] [place] [address] Staphylococcus Aureus By Pcr Negative Normal Negative [facility] Comment on above: Order Comment: Colle ct [...] by the Clinical Microbiology Laboratory at [facility]. It has not been cleared or approved by the FDA.The laboratory is regulated under CLIA as qualified to perform high-complexity testing. This test is used for clinical purposes. It should not be regarded as investigational or for research. Performed By: #### C 7ED #### [facility] (DEFAULT) [address] [place] [address] TYPE AND SCREENon 10-14-2022 ABO/RH(D) TYPE Positive Normal [facility] Comment on above: Performed By: #### X M #### [facility] (DEFAULT) [address] [place] [address]57 ABO/RH(D) TYPE Positive [facility] URINALYSIS REFLEX TO CULTURE PERFORMABLEon 10-14-2022 Appearance (U) Clear Normal Clear [facility] Comment on above: Performed By: #### U [id number] #### [facility] (DEFAULT) [address] [place] [address]338 Bacteria PRESENT Abnormal ABSENT [facility] Comment on above: Performed By: #### U [id number] #### [facility] (DEFAULT) [address] [place] [address]472 Blood Urine Negative Normal Negative [facility] Comment on above: Performed By: #### U [id number] #### [facility] (DEFAULT) [address] [place] [address]73 Color (U) Yellow Normal Yellow [facility] Comment on above: Performed By: #### U [id number] #### [facility] (DEFAULT) [address] [place] [address] Glucose Ql (U) Negative Normal Negative [facility] Comment on above: Performed By: #### U [id number] #### [facility] (DEFAULT) [address] [place] [address]67 Hyaline casts LM Ql (Urine sed) 0 - 2 Abnormal (none) [facility] Comment on above: Performed By: #### U [id number] #### [facility] (DEFAULT) [address] [place] [address] Ketones Ql (U) Negative Normal Negative [facility] Comment on above: Performed By: #### U [id number] #### [facility] (DEFAULT) [address] [place] [address]879 Leukocyte esterase Test strip Ql (U) Trace Abnormal Negative [facility] Comment on above: Performed By: #### U [id number] #### [facility] (DEFAULT) [address] [place] [address] 53463 Nitrites Urine Positive Abnormal Negative [facility] Comment on above: Performed By: #### U [id number] #### [facility] (DEFAULT) [address] [address] pH (U) 7.0 [pH] Normal 5.0-7.0 [facility] Comment on above: Performed By: #### U [id number] #### [facility] (DEFAULT) [address] [address] Protein Urine Negative Normal Negative [facility] Comment on above: Performed By: #### U [id number] #### [facility] (DEFAULT) [address] [address] RBC Urine 0-2 Normal 0-2 [facility] Comment on above: Performed By: #### U [id number] #### [facility] (DEFAULT) [address] [address] Specific [place] Urine 1.010 Normal 1.001-1.035 [facility] Comment on above: Performed By: #### U [id number] #### [facility] (DEFAULT) [address] [address] Squamous/Epithelial Cells 0-2/hpf Normal 0-2/hpf, 3-5/hpf = 1+ [facility] Comment on above: Performed By: #### U [id number] #### [facility] (DEFAULT) [address] [address] Urobilinogen Urine 0.2 E.U./dL Normal 0.2 E.U/d L, 1.0 E.U/dL [facility] Comment on above: Performed By: #### U [id number] #### [facility] (DEFAULT) [address] [place] [address] WBC Urine 0 - 5 Normal 0 - 5 [facility] Comment on above: Performed By: #### U [id number] #### [facility] (DEFAULT) [address] [place] [address] Yeast/Fungi PRESENT Abnormal ABSENT [facility] Comment on above: Performed By: #### U [id number] #### [facility] (DEFAULT) [address] [place] [address] Appearance (U) Clear Clear [facility] Bacteria LM Ql (Urine sed) PRESENT Abnormal ABSENT [facility] Color (U) Yellow Yellow [facility] Epithelial cells.squamous LM Ql (Urine sed) 0-2/hpf 0-2/hpf, 3-5/hpf = 1+ [facility] Glucose Test strip (U) [Mass/Vol] Negative Negative [facility] Hyaline casts (Urine sed) [#/Area] 0 - 2 Abnormal (none) /LPF [facility] Interpretation and review of laboratory results Abnormal [facility] Ketones (U) [Mass/Vol] Negative Negative [facility] Leukocyte esterase Test strip Ql (U) Trace Abnormal Negative [facility] Nitrite Ql (U) Positive Abnormal Negative [facility] pH (U) 7.0 [pH] 5.0 - 7.0 [facility] (U) [Mass/Vol] Negative [facility] RBC (U) [#/Vol] [facility] LM.HPF (Urine sed) [#/Area] 0-2 [facility] Specific gravity (U) [Rel density] 1.010 1.001 - 1.035 [facility] Urobilinogen (U) [Mass/Vol] 0.2 E.U./dL 0.2 E.U/dL, 1.0 E.U/dL [facility] WBC LM.HPF (Urine sed) [#/Area] 0 - 5 [facility] Yeast/Fungi PRESENT Abnormal ABSENT [facility] XR CHEST PORTABLEon 10-15-19 XR CHEST [...] have reviewed and approved this report. Normal [facility] XR Cervical spine 4 Viewson 10-14-2022 IMPRESSION: [...] I have reviewed and approved this report. [facility] XR SPINE CERVICAL 4 VIEWSon 10-14-2022 [...] have reviewed and approved this report. Normal [facility] Basic Metabolic Profon 10-13 Anion gap [Moles/Vol] 11 mmol/L Normal 9-17 [facility] Comment on above: Performed By: #### C P, CBC #### [facility] [address] [place] [address] Printing Equipment Mechanic: Collette Willard MD BUN/CRE Ratio 43 High 9-[address] [facility] Comment on above: Performed By: #### C P, CBC #### [facility] [address] [place] [address] Printing Equipment Mechanic: Collette Willard MD Calcium [Mass/Vol] 10.3 mg/dL Normal 8.6-10.4 [facility] Comment on above: Performed By: #### C P, CBC #### [facility] [address] [place] [address] Printing Equipment Mechanic: Collette Willard MD Chloride [Moles/Vol] 103 mmol/L Normal 98-107 [facility] Comment on above: Performed By: #### C P, CBC #### [facility] [address] [place] [address] Printing Equipment Mechanic: Collette Willard MD CO2 [Moles/Vol] 31 mmol/L Normal 20-[address] [facility] Comment on above: Performed By: #### C P, CBC #### [facility] [address] [place] [address] Printing Equipment Mechanic: Collette Willard MD Creatinine [Mass/Vol] 0.3 mg/dL Low 0.5-0.9 [facility] Comment on above: Performed By: #### C P, CBC #### [facility] [address] [place] [address] Printing Equipment Mechanic: Collette Willard MD GFR/1.73 sq M.predicted among non-blacks MDRD (S/P/Bld) [Vol rate/Area] mL/min/{1.73_m2} Normal >60 [facility] Comment on above: Result Comment: [...] Performed By: #### C P, CBC #### [facility] [address] [place] [address] Printing Equipment Mechanic: Collette Willard MD Glucose [Mass/Vol] 80 mg/dL Normal 70-99 [facility] Comment on above: Performed By: #### C P, CBC #### [facility] [address] [place] [address] Printing Equipment Mechanic: Collette Willard MD Potassium [Moles/Vol] 3.4 mmol/L Low 3.7-5.3 [facility] Comment on above: Performed By: #### C P, CBC #### [facility] [address] [place] [address] Printing Equipment Mechanic: Collette Willard MD Sodium [Moles/Vol] 145 mmol/L High 135-144 [facility] Comment on above: Performed By: #### C P, CBC #### [facility] [address] [place], [place] [phone] Printing Equipment Mechanic: Collette Willard MD Urea nitrogen [Mass/Vol] 13 mg/dL Normal 8-23 [facility] Comment on above: Performed By: #### C P, CBC #### [facility] [address] [place] [address] Printing Equipment Mechanic: Collette Willard MD CBC with Diffon 10-13-2022 Abs. Basophil 0.00 k/uL Normal 0.0-0.[address] [facility] Comment on above: Performed By: #### C P, CBC #### [facility] [address] [place] [address] Dr[address] [place], [place] [phone] Printing Equipment Mechanic: Collette Willard MD Abs.Imm.Granulocyte 0.08 k/uL Normal 0.00-0.30 [facility] Comment on above: Performed By: #### C P, CBC #### [address] [place] [address] Printing Equipment Mechanic: Collette Willard MD Abs.Neutrophil (Seg) 6.32 k/uL Normal 1.50-8.10 [facility] Comment on above: Performed By: #### C P, CBC #### [facility] [address] [place], [place] [phone] Printing Equipment Mechanic: Collette Willard MD Basophils/100 WBC (Bld) 0 % Normal 0-2 [facility] Comment on above: Performed By: #### C P, CBC #### [facility] [address] [place] [address] Printing Equipment Mechanic: Collette Willard MD Eosinophils (Bld) [#/Vol] 0.23 10*3/uL Normal 0.00-0.44 [facility] Comment on above: Performed By: #### C P, CBC #### [facility] [address] [place], [facility] Printing Equipment Mechanic: Collette Willard MD Eosinophils/100 WBC (Bld) 3 % Normal 1-4 [facility] Comment on above: Performed By: #### C P, CBC #### [facility] [address] [place], [place] [address] Printing Equipment Mechanic: Collette Willard MD Immature granulocytes/100 WBC (Bld) 1 % High 0 [facility] Comment on above: Performed By: #### C P, CBC #### [facility] [address] [place] [phone] Printing Equipment Mechanic: Collette Willard MD Lymphocytes (Bld) [#/Vol] 0.86 10*3/uL Low 1.10-3.70 [facility] Comment on above: Performed By: #### C P, CBC #### [facility] [address] [place], [place] [address] Printing Equipment Mechanic: Collette Willard MD Lymphocytes/100 WBC (Bld) 11 % Low 24-43 [facility] Comment on above: Performed By: #### C P, CBC #### [facility] [address] [place] [address] Printing Equipment Mechanic: Collette Willard MD Monocytes (Bld) [#/Vol] 0.31 10*3/uL Normal 0.10-1.20 [facility] Comment on above: Performed By: #### C P, CBC #### [facility] [address] [place] [phone] Printing Equipment Mechanic: Collette Willard MD Monocytes/100 WBC (Bld) 4 % Normal 3-12 [facility] Comment on above: Performed By: #### C P, CBC #### [facility] [address] [place], [facility] Printing Equipment Mechanic: Collette Willard MD Morphology Demetrio (Bld) [Interp] Normal Normal [facility] Comment on above: Performed By: #### C P, CBC #### [facility] [address] [place], [place] [phone] Printing Equipment Mechanic: Collette Willard MD Neutrophil (Seg) 81 % High 36-65 [facility] Comment on above: Performed By: #### C P, CBC #### [facility] [address] [place], [place] [phone] Printing Equipment Mechanic: Collette Willard MD Erythrocyte distribution width (RBC) [Ratio] 13.7 % Normal 11.8-14.4 [facility] Comment on above: Performed By: #### C P, CBC #### [address] [place] [address] Printing Equipment Mechanic: Collette Willard MD Hematocrit (Bld) [Volume fraction] 43.4 % Normal 36.3-47.1 [facility] Comment on above: Performed By: #### C P, CBC #### [address] [place] [address] Printing Equipment Mechanic: Collette Willard MD Hemoglobin (Bld) [Mass/Vol] 13.5 g/dL Normal 11.9-15.1 [facility] Comment on above: Performed By: #### C P, CBC #### [address] [place] [address] Printing Equipment Mechanic: Collette Willard MD MCH (RBC) [Entitic mass] 30.4 pg Normal 25.2-33.5 [facility] Comment on above: Performed By: #### C P, CBC #### [address] [place] [address] Printing Equipment Mechanic: Collette Willard MD MCHC (RBC) [Mass/Vol] 31.1 g/dL Normal 28.4-34.8 [facility] Comment on above: Performed By: #### C P, CBC #### [facility] [address] [place] [address] Dr. [place], [place] [address] Printing Equipment Mechanic: Collette Willard MD MCV (RBC) [Entitic vol] 97.7 fL Normal 82.6-102.9 [facility] Comment on above: Performed By: #### C P, CBC #### [address] [place], [place] [address] Printing Equipment Mechanic: Collette Willard MD NRBC Automated 0.0 per 100 WBC Normal 0.0 [facility] Comment on above: Performed By: #### C P, CBC #### [address] [place], [facility] Printing Equipment Mechanic: Collette Willard MD Platelet mean volume (Bld) [Entitic vol] 9.3 fL Normal 8.1-13.5 [facility] Comment on above: Performed By: #### C P, CBC #### [address] [place], [facility] Printing Equipment Mechanic: Collette Willard MD Platelets (Bld) [#/Vol] 184 10*3/uL Normal 138-453 [facility] Comment on above: Performed By: #### C P, CBC #### [address] [place], [place] [address] Printing Equipment Mechanic: Collette Willard MD RBC (Bld) [#/Vol] 4.44 10*6/uL Normal 3.95-5.11 [facility] Comment on above: Performed By: #### C P, CBC #### [address] [place] [address] Printing Equipment Mechanic: Collette Willard MD WBC (Bld) [#/Vol] 7.8 10*3/uL Normal 3.5-11.3 [facility] Comment on above: Performed By: #### C P, CBC #### [facility] [address] [place], [place] [address] Printing Equipment Mechanic: Collette Willard MD Abs. Basophil 0.00 k/uL Normal 0.0-0.[address] [facility] Comment on above: Performed By: #### B C #### [address] [place], [place] [address] Printing Equipment Mechanic: Collette Willard MD Abs.Imm.Granulocyte 0.50 k/uL High 0.00-0.30 [facility] Comment on above: Performed By: #### B C #### [address] [place], [place] [address] Printing Equipment Mechanic: Collette Willard MD Abs.Neutrophil (Seg) 6.56 k/uL Normal 1.50-8.10 [facility] Comment on above: Performed By: #### B C #### [address] [place], [facility] Printing Equipment Mechanic: Collette Willard MD Basophils/100 WBC (Bld) 0 % Normal 0-2 [facility] Comment on above: Performed By: #### B C #### [address] [place], [place] [address] Printing Equipment Mechanic: Collette Willard MD Eosinophils (Bld) [#/Vol] 0.00 10*3/uL Normal 0.00-0.44 [facility] Comment on above: Performed By: #### B C #### [address] [place], [facility] Printing Equipment Mechanic: Collette Willard MD Eosinophils/100 WBC (Bld) 0 % Low 1-4 [facility] Comment on above: Performed By: #### B C #### [address] [place], [facility] Printing Equipment Mechanic: Collette Willard MD Immature granulocytes/100 WBC (Bld) 6 % High 0 [facility] Comment on above: Performed By: #### B C #### [facility] [address] [place], [place] [phone] Printing Equipment Mechanic: Collette Willard MD Lymphocytes (Bld) [#/Vol] 0.91 10*3/uL Low 1.10-3.70 [facility] Comment on above: Performed By: #### B C #### [facility] [address] [place], [place] [phone] Printing Equipment Mechanic: Collette Willard MD Lymphocytes/100 WBC (Bld) 11 % Low 24-43 [facility] Comment on above: Performed By: #### B C #### [facility] [address] [place], [place] [phone] Printing Equipment Mechanic: Collette Willard MD Monocytes (Bld) [#/Vol] 0.33 10*3/uL Normal 0.10-1.20 [facility] Comment on above: Performed By: #### B C #### [facility] [address] [place], [place] [phone] Printing Equipment Mechanic: Collette Willard MD Monocytes/100 WBC (Bld) 4 % Normal 3-12 [facility] Comment on above: Performed By: #### B C #### [facility] [address] [place], [place] [phone] Printing Equipment Mechanic: Collette Willard MD Morphology Demetrio (Bld) [Interp] Normal Normal [facility] Comment on above: Performed By: #### B C #### [facility] [address] [place], [place] [phone] Printing Equipment Mechanic: Collette Willard MD Neutrophil (Seg) 79 % High 36-65 [facility] Comment on above: Performed By: #### B C #### [facility] [address] [place], [place] [phone] Printing Equipment Mechanic: Collette Willard MD Erythrocyte distribution width (RBC) [Ratio] 13.8 % Normal 11.8-14.4 [facility] Comment on above: Performed By: #### B C #### [address] [place], [place] [phone] Printing Equipment Mechanic: Collette Willard MD Hematocrit (Bld) [Volume fraction] 42.1 % Normal 36.3-47.1 [facility] Comment on above: Performed By: #### B C #### [address] [place], [place] [phone] Printing Equipment Mechanic: Collette Willard MD Hemoglobin (Bld) [Mass/Vol] 12.9 g/dL Normal 11.9-15.1 [facility] Comment on above: Performed By: #### B C #### [address] [place], [place] [phone] Printing Equipment Mechanic: Collette Willard MD MCH (RBC) [Entitic mass] 30.3 pg Normal 25.2-33.5 [facility] Comment on above: Performed By: #### B C #### [address] [place], [place] [phone] Printing Equipment Mechanic: Collette Willard MD MCHC (RBC) [Mass/Vol] 30.6 g/dL Normal 28.4-34.8 [facility] Comment on above: Performed By: #### B C #### [address] [place], [place] [phone] Printing Equipment Mechanic: Collette Willard MD MCV (RBC) [Entitic vol] 98.8 fL Normal 82.6-102.9 [facility] Comment on above: Performed By: #### B C #### [address] [place], [place] [phone] Printing Equipment Mechanic: Collette Willard MD NRBC Automated 0.0 per 100 WBC Normal 0.0 [facility] Comment on above: Performed By: #### B C #### [facility] [address] [place], [place] [address] Printing Equipment Mechanic: Collette Willard MD Platelet mean volume (Bld) [Entitic vol] 9.3 fL Normal 8.1-13.5 [facility] Comment on above: Performed By: #### B C #### [facility] [address] [place], [facility] Printing Equipment Mechanic: Collette Willard MD Platelets (Bld) [#/Vol] 198 10*3/uL Normal 138-453 [facility] Comment on above: Performed By: #### B C #### [address] [place], [facility] Printing Equipment Mechanic: Collette Willard MD RBC (Bld) [#/Vol] 4.26 10*6/uL Normal 3.95-5.11 [facility] Comment on above: Performed By: #### B C #### [address] [place], [place] [phone] Printing Equipment Mechanic: Collette Willard MD WBC (Bld) [#/Vol] 8.3 10*3/uL Normal 3.5-11.3 [facility] Comment on above: Performed By: #### B C #### [address] [place], [facility] Printing Equipment Mechanic: Collette Willard MD Comp Metabolic Profon 2022 Albumin [Mass/Vol] 3.6 g/dL Normal 3.5-5.2 [facility] Comment on above: Performed By: #### C DP, CP #### [address] [place] [address] Printing Equipment Mechanic: Collette Willard MD Albumin/Glob Ratio 1.4 Normal 1.0-2.5 [facility] Comment on above: Performed By: #### C DP, CP #### [facility] [address] [place], [place] [phone] Printing Equipment Mechanic: Collette Willard MD Alkaline Phos 148 U/L High 35-[address] [facility] Comment on above: Performed By: #### C DP, CP #### [facility] [address] [place], [place] [phone] Printing Equipment Mechanic: Collette Willard MD ALT [Catalytic activity/Vol] 56 U/L High 5-33 [facility] Comment on above: Performed By: #### C DP, CP #### [facility] [address] [place], [place] [phone] Printing Equipment Mechanic: Collette Wlilard MD Anion gap [Moles/Vol] 10 mmol/L Normal 9-17 [facility] Comment on above: Performed By: #### C DP, CP #### [facility] [address] [place], [place] [phone] Printing Equipment Mechanic: Collette Willard MD AST [Catalytic activity/Vol] 39 U/L High <32 [facility] Comment on above: Performed By: #### C DP, CP #### [facility] [address] [place], [place] [phone] Printing Equipment Mechanic: Collette Willard MD Bilirubin [Mass/Vol] 0.3 mg/dL Normal 0.3-1.2 [facility] Comment on above: Performed By: #### C DP, CP #### [facility] [address] [place], [place] [phone] Printing Equipment Mechanic: Collette Willard MD BUN/CRE Ratio 47 High 9-[address] [facility] Comment on above: Performed By: #### C DP, CP #### [facility] [address] [place], [place] [phone] Printing Equipment Mechanic: Collette Willard MD Calcium [Mass/Vol] 10.3 mg/dL Normal 8.6-10.4 [facility] Comment on above: Performed By: #### C DP, CP #### [facility] [address] [place], [place] [phone] Printing Equipment Mechanic: Collette Willard MD Chloride [Moles/Vol] 104 mmol/L Normal 98-107 [facility] Comment on above: Performed By: #### C DP, CP #### [facility] [address] [place], [place] [phone] Printing Equipment Mechanic: Collette Willard MD CO2 [Moles/Vol] 30 mmol/L Normal 20-[address] [facility] Comment on above: Performed By: #### C DP, CP #### [facility] [address] [place], [place] [phone] Printing Equipment Mechanic: Collette Willard MD Creatinine [Mass/Vol] 0.3 mg/dL Low 0.5-0.9 [facility] Comment on above: Performed By: #### C DP, CP #### [facility] [address] [place], [place] 780[address]83 Printing Equipment Mechanic: Collette Willard MD GFR/1.73 sq M.predicted among non-blacks MDRD (S/P/Bld) [Vol rate/Area] mL/min/{1.73_m2} Normal >60 [facility] Comment on above: Result Comment: [...] Performed By: #### C DP, CP #### [facility] [address] [place] [address] Printing Equipment Mechanic: Collette Willard MD Glucose [Mass/Vol] 108 mg/dL High 70-99 [facility] Comment on above: Performed By: #### C DP, CP #### [facility] [address] [place] [address] Printing Equipment Mechanic: Collette Willard MD Potassium [Moles/Vol] 3.6 mmol/L Low 3.7-5.3 [facility] Comment on above: Performed By: #### C DP, CP #### [facility] [address] [place] [address] Dr[address] [place], [place] [phone] Printing Equipment Mechanic: Collette Willard MD Protein [Mass/Vol] 6.2 g/dL Low 6.4-8.3 [facility] Comment on above: Performed By: #### C DP, CP #### [address] [place] [address] Printing Equipment Mechanic: Collette Willard MD Sodium [Moles/Vol] 144 mmol/L Normal 135-144 [facility] Comment on above: Performed By: #### C DP, CP #### [address] [place], [place] [phone] Printing Equipment Mechanic: Collette Willard MD Urea nitrogen [Mass/Vol] 14 mg/dL Normal 8-23 [facility] Comment on above: Performed By: #### C DP, CP #### [address] [place] [address] Printing Equipment Mechanic: Collette Willard MD MRI LUMBAR SPINE WO [...] Kendell Echols MD 10/13/22 Final result Normal [facility] MRI THORACIC SPINE WO CONTRA [...] Kendell Echols MD 10/13/22 Final result Normal [facility] PTon 10-13-2022 INR Coag (PPP) [Relative time] 0.9 {INR} Normal [facility] Comment on above: Result Comment: Therapeutic Range: Moderate Anticoagulant Intensity: INR = 2.0-3.0 High Anticoagulant Intensity: INR = 2.5-3.5 Performed By: #### C P, CBC #### [facility] [address] [place] [address] Printing Equipment Mechanic: Collette Willard MD PT Coag (PPP) [Time] 12.1 s Normal 11.9-14.8 [facility] Comment on above: Performed By: #### C P, CBC #### [address] [place] [address] Printing Equipment Mechanic: Collette Willard MD Portable XR Chest Viewson Radiology Study observation (narrative) [facility] XR Cervical spine 4 Viewson 10-13-2022 Radiology Study observation (narrative) [facility] CBCon 10-06-2022 Erythrocyte distribution width (RBC) [Ratio] 13.9 % Normal 11.8-14.4 [facility] Comment on above: Performed By: #### C P, CBC #### [address] [place] [address] Printing Equipment Mechanic: Collette Willard MD Hematocrit (Bld) [Volume fraction] 42.2 % Normal 36.3-47.1 [facility] Comment on above: Performed By: #### C P, CBC #### [facility] [address] [place] [address] [place] [address] Printing Equipment Mechanic: Collette Willard MD Hemoglobin (Bld) [Mass/Vol] 13.3 g/dL Normal 11.9-15.1 [facility] Comment on above: Performed By: #### C P, CBC #### [facility] [address] [place] [address] Printing Equipment Mechanic: Collette Willard MD MCH (RBC) [Entitic mass] 30.8 pg Normal 25.2-33.5 [facility] Comment on above: Performed By: #### C P, CBC #### [address] [place], [place] [phone] Printing Equipment Mechanic: Collette Willard MD MCHC (RBC) [Mass/Vol] 31.5 g/dL Normal 28.4-34.8 [facility] Comment on above: Performed By: #### C P, CBC #### [address] [place] [id number] Printing Equipment Mechanic: Collette Willard MD MCV (RBC) [Entitic vol] 97.7 fL Normal 82.6-102.9 [facility] Comment on above: Performed By: #### C P, CBC #### [address] [place] [id number] Printing Equipment Mechanic: Collette Willard MD NRBC Automated 0.0 per 100 WBC Normal 0.0 [facility] Comment on above: Performed By: #### C P, CBC #### [address] [place], [facility] Printing Equipment Mechanic: Collette Willard MD Platelet mean volume (Bld) [Entitic vol] 10.8 fL Normal 8.1-13.5 [facility] Comment on above: Performed By: #### C P, CBC #### [address] [place], [facility] Printing Equipment Mechanic: Collette Willard MD Platelets (Bld) [#/Vol] 133 10*3/uL Low 138-453 [facility] Comment on above: Performed By: #### C P, CBC #### [address] [place] [address] Printing Equipment Mechanic: Collette Willard MD RBC (Bld) [#/Vol] 4.32 10*6/uL Normal 3.95-5.11 [facility] Comment on above: Performed By: #### C P, CBC #### [facility] [address] [place], [place] [phone] Printing Equipment Mechanic: Collette Willard MD WBC (Bld) [#/Vol] 14.9 10*3/uL High 3.5-11.3 [facility] Comment on above: Performed By: #### C P, CBC #### [facility] [address] [place], [place] [phone] Printing Equipment Mechanic: Collette Willard MD Comp Metabolic Profon 2022 Albumin [Mass/Vol] 3.4 g/dL Low 3.5-5.2 [facility] Comment on above: Performed By: #### C P, CBC #### [address] [place], [place] 9443983 Printing Equipment Mechanic: Collette Willard MD Albumin/Glob Ratio 1.2 Normal 1.0-2.5 [facility] Comment on above: Performed By: #### C P, CBC #### [address] [place], [place] [phone] Printing Equipment Mechanic: Collette Willard MD Alkaline Phos 135 U/L High 35-[address] [facility] Comment on above: Performed By: #### C P, CBC #### [facility] [address] [place] [address] Dr. [place], [place] [phone] Printing Equipment Mechanic: Collette Willard MD ALT [Catalytic activity/Vol] 62 U/L High 5-33 [facility] Comment on above: Performed By: #### C P, CBC #### [address] [place] [address] Printing Equipment Mechanic: Collette Willard MD Anion gap [Moles/Vol] 9 mmol/L Normal 9-17 [facility] Comment on above: Performed By: #### C P, CBC #### [facility] [address] [place], [place] [phone] Printing Equipment Mechanic: Collette Willard MD AST [Catalytic activity/Vol] 41 U/L High <32 [facility] Comment on above: Performed By: #### C P, CBC #### [facility] [address] [place], [place] [phone] Printing Equipment Mechanic: Collette Willard MD Bilirubin [Mass/Vol] 0.3 mg/dL Normal 0.3-1.2 [facility] Comment on above: Performed By: #### C P, CBC #### [facility] [address] [place], [place] 14[address]83 Printing Equipment Mechanic: Collette Willard MD BUN/CRE Ratio 33 High 9-[address] [facility] Comment on above: Performed By: #### C P, CBC #### [facility] [address] [place], [place] [phone] Printing Equipment Mechanic: Collette Willard MD Calcium [Mass/Vol] 10.6 mg/dL High 8.6-10.4 [facility] Comment on above: Performed By: #### C P, CBC #### [facility] [address] [place], [place] [phone] Printing Equipment Mechanic: Collette Willard MD Chloride [Moles/Vol] 101 mmol/L Normal 98-107 [facility] Comment on above: Performed By: #### C P, CBC #### [facility] [address] [place], [place] 752[address]83 Printing Equipment Mechanic: Collette Willard MD CO2 [Moles/Vol] 32 mmol/L High 20-[address] [facility] Comment on above: Performed By: #### C P, CBC #### [facility] [address] [place] [address] Printing Equipment Mechanic: Collette Willard MD Creatinine [Mass/Vol] 0.4 mg/dL Low 0.5-0.9 [facility] Comment on above: Performed By: #### C P, CBC #### [facility] [address] [place] [address] Printing Equipment Mechanic: Collette Willard MD GFR/1.73 sq M.predicted among non-blacks MDRD (S/P/Bld) [Vol rate/Area] mL/min/{1.73_m2} Normal >60 [facility] Comment on above: Result Comment: [...] Performed By: #### C P, CBC #### [facility] [address] [place] [address] Printing Equipment Mechanic: Collette Willard MD Glucose [Mass/Vol] 97 mg/dL Normal 70-99 [facility] Comment on above: Performed By: #### C P, CBC #### [facility] [address] [place] [address] Printing Equipment Mechanic: Collette Willard MD Potassium [Moles/Vol] 4.0 mmol/L Normal 3.7-5.3 [facility] Comment on above: Performed By: #### C P, CBC #### [facility] [address] [place] [address] Printing Equipment Mechanic: Collette Willard MD Protein [Mass/Vol] 6.2 g/dL Low 6.4-8.3 [facility] Comment on above: Performed By: #### C P, CBC #### [facility] [address] [place] [address] Printing Equipment Mechanic: Collette Willard MD Sodium [Moles/Vol] 142 mmol/L Normal 135-144 [facility] Comment on above: Performed By: #### C P, CBC #### [facility] [address] [place] [address] Printing Equipment Mechanic: Collette Willard MD Urea nitrogen [Mass/Vol] 13 mg/dL Normal 8- [facility] Comment on above: Performed By: #### C P, CBC #### [facility] [address] [place] [address] Printing Equipment Mechanic: Collette Willard MD Cult,Bloodon 10-06-2022 Cult,Blood Specimen Description .BLOOD Special Requests 3ML LH Culture NO GROWTH 5 DAYS Report Status FINAL 10/06/2022 [facility] Comment on above: Performed By: #### B C #### [facility] [address] [place] [address] Printing Equipment Mechanic: Collette Willard MD Cult,Blood Specimen Description .BLOOD Special Requests 3ML R UA Culture NO GROWTH 5 DAYS Report Status FINAL 10/06/2022 [facility] Comment on above: Performed By: #### B C #### [facility] [address] [place] [address] Printing Equipment Mechanic: Collette Willard MD CBC with Auto Differentialon 10-03-2022 Basophils (Bld) [#/Vol] 0.08 10*3/uL [facility] Basophils/100 WBC (Bld) 1 % 0 - 2 % [facility] Eosinophils (Bld) [#/Vol] [facility] Eosinophils/100 WBC (Bld) 0 % Low 1 - 4 % [facility] Erythrocyte distribution width (RBC) [Ratio] 13.9 % 11.8 - 14.4 % [facility] Hematocrit (Bld) [Volume fraction] 46.6 % 36.3 - 47.1 % [facility] Hemoglobin (Bld) [Mass/Vol] 14.2 g/dL 11.9 - 15.1 g/dL [facility] Immature granulocytes (Bld) [#/Vol] 0.32 10*3/uL High [facility] Immature granulocytes/100 WBC (Bld) 2 % High 0 [facility] Interpretation and review of laboratory results Abnormal [facility] Lymphocytes/100 WBC (Bld) 9 % Low 24 - 43 % [facility] Lymphocytes/100 WBC (Bld) 1.30 % [facility] MCH (RBC) [Entitic mass] 31.1 pg 25.2 - 33.5 pg [facility] MCHC (RBC) [Mass/Vol] 30.5 g/dL 28.4 - 34.8 g/dL [facility] MCV (RBC) [Entitic vol] 102.0 fL 82.6 - 102.9 fL [facility] Monocytes/100 WBC (Bld) 6 % 3 - 12 % [facility] Monocytes/100 WBC (Bld) 0.87 % [facility] Neutrophils/100 WBC (Bld) 82 % High 36 - 65 % [facility] Nucleated RBC/100 WBC (Bld) [Ratio] 0.0 % 0.0 per 100 WBC [facility] Platelet mean volume (Bld) [Entitic vol] 10.5 fL 8.1 - 13.5 fL [facility] Platelets (Bld) [#/Vol] 156 10*3/uL [facility] RBC (Bld) [#/Vol] 4.57 10*6/uL 3.95 - 5.1 1 m/uL [facility] Segmented neutrophils/100 WBC (Bld) 11.43 % High [facility] WBC other (Bld) [#/Vol] 14.0 High [facility] CBC with Diffon 10-03-2022 Abs. Basophil 0.08 k/uL Normal 0.00-0.[address] [facility] Comment on above: Performed By: #### B C #### [facility] [address] [place] [address] Printing Equipment Mechanic: Collette Willard MD Abs. Eosinophil <0.03 Normal 0.00-0.[address] [facility] Comment on above: Performed By: #### B C #### [facility] [address] [place], [place] [phone] Printing Equipment Mechanic: Collette Willard MD Abs.Imm.Granulocyte 0.32 k/uL High 0.00-0.30 [facility] Comment on above: Performed By: #### B C #### [facility] [address] [place], [facility] Printing Equipment Mechanic: Collette Willard MD Abs.Neutrophil (Seg) 11.43 k/uL High 1.50-8.10 [facility] Comment on above: Performed By: #### B C #### [address] [place], [facility] Printing Equipment Mechanic: Collette Willard MD Basophils/100 WBC (Bld) 1 % Normal 0-2 [facility] Comment on above: Performed By: #### B C #### [address] [place], [facility] Printing Equipment Mechanic: Collette Willard MD Eosinophils/100 WBC (Bld) 0 % Low 1-4 [facility] Comment on above: Performed By: #### B C #### [address] [place], [facility] Printing Equipment Mechanic: Collette Willard MD Erythrocyte distribution width (RBC) [Ratio] 13.9 % Normal 11.8-14.4 [facility] Comment on above: Performed By: #### B C #### [facility] [address] [place] [address] Dr. [place], [facility] Printing Equipment Mechanic: Collette Willard MD Hematocrit (Bld) [Volume fraction] 46.6 % Normal 36.3-47.1 [facility] Comment on above: Performed By: #### B C #### [address] [place], [facility] Printing Equipment Mechanic: Collette Willard MD Hemoglobin (Bld) [Mass/Vol] 14.2 g/dL Normal 11.9-15.1 [facility] Comment on above: Performed By: #### B C #### [facility] [address] [place] [address] Printing Equipment Mechanic: Collette Willard MD Immature granulocytes/100 WBC (Bld) 2 % High 0 [facility] Comment on above: Performed By: #### B C #### [facility] [address] [place], [facility] Printing Equipment Mechanic: Collette Willard MD Lymphocytes (Bld) [#/Vol] 1.30 10*3/uL Normal 1.10-3.70 [facility] Comment on above: Performed By: #### B C #### [address] [place], [facility] Printing Equipment Mechanic: Collette Willard MD Lymphocytes/100 WBC (Bld) 9 % Low 24-43 [facility] Comment on above: Performed By: #### B C #### [address] [place], [place] [phone] Printing Equipment Mechanic: Collette Willard MD MCH (RBC) [Entitic mass] 31.1 pg Normal 25.2-33.5 [facility] Comment on above: Performed By: #### B C #### [address] [place], [facility] Printing Equipment Mechanic: Collette Willard MD MCHC (RBC) [Mass/Vol] 30.5 g/dL Normal 28.4-34.8 [facility] Comment on above: Performed By: #### B C #### [address] [place] [address] Printing Equipment Mechanic: Collette Willard MD MCV (RBC) [Entitic vol] 102.0 fL Normal 82.6-102.9 [facility] Comment on above: Performed By: #### B C #### [facility] [address] [place], [place] [phone] Printing Equipment Mechanic: Collette Willard MD Monocytes (Bld) [#/Vol] 0.87 10*3/uL Normal 0.10-1.20 [facility] Comment on above: Performed By: #### B C #### [facility] [address] [place], [place] [phone] Printing Equipment Mechanic: Collette Willard MD Monocytes/100 WBC (Bld) 6 % Normal 3-12 [facility] Comment on above: Performed By: #### B C #### [facility] [address] [place], [facility] Printing Equipment Mechanic: Collette Willard MD Neutrophil (Seg) 82 % High 36-65 [facility] Comment on above: Performed By: #### B C #### [facility] [address] [place], [place] [phone] Printing Equipment Mechanic: Collette Willard MD NRBC Automated 0.0 per 100 WBC Normal 0.0 [facility] Comment on above: Performed By: #### B C #### [address] [place], [place] [phone] Printing Equipment Mechanic: Collette Willard MD Platelet mean volume (Bld) [Entitic vol] 10.5 fL Normal 8.1-13.5 [facility] Comment on above: Performed By: #### B C #### [facility] [address] [place], [place] [phone] Printing Equipment Mechanic: Collette Willard MD Platelets (Bld) [#/Vol] 156 10*3/uL Normal 138-453 [facility] Comment on above: Performed By: #### B C #### [facility] [address] [place], [place] [phone] Printing Equipment Mechanic: Collette Willard MD RBC (Bld) [#/Vol] 4.57 10*6/uL Normal 3.95-5.11 [facility] Comment on above: Performed By: #### B C #### [facility] [address] [place], [place] [phone] Printing Equipment Mechanic: Collette Willard MD WBC (Bld) [#/Vol] 14.0 10*3/uL High 3.5-11.3 [facility] Comment on above: Performed By: #### B C #### [facility] [address] [place] [address] Printing Equipment Mechanic: Collette Willard MD Cult,Urineon 10-02-2022 Cult,Urine Specimen Description .CLEAN CATCH URINE Culture NO GROWTH Report Status FINAL 10/02/2022 Normal [facility] Comment on above: Performed By: #### B C #### [facility] [address] [place] [address] Printing Equipment Mechanic: Collette Willard MD Procalcitoninon 10-01-2022 Procalcitonin 0.06 ng/mL Normal <0.[address] [facility] Comment on above: Result Comment: Suspected [...] entered into the Change in Procalcitonin Calculator (www.ivddiw-sus-ooccmyusij.com) to determine the patient's Mortality Risk Prognosis In healthy neonates, plasma Procalcitonin (PCT) concentrations increase gradually after , reaching peak values at about 24 hours of age then decrease to normal values below 0.5 ng/mL by 48-72 hours of age. Performed By: #### P RCAL #### [facility] [address] [id number] Printing Equipment Mechanic: Chriss Townsend MD Procalcitonin [Mass/Vol] 0.06 ng/mL NINF - 0.09 ng/mL [facility] Comment on above: Suspected Sepsis: [...] entered into the Change in Procalcitonin Calculator (www.gfiagk-cux-ckdkboacno.[employer]) to determine the patient's Mortality Risk Prognosis In healthy neonates, plasma Procalcitonin (PCT) concentrations increase gradually after , reaching peak values at about 24 hours of age then decrease to normal values below 0.5 ng/mL by 48-72 hours of age. [facility] Urinalysison 10-01-2022 Bilirubin Ql (U) Negative NEGATIVE [facility] Clarity (U) Clear Clear [facility] Color (U) Yellow Yellow [facility] Glucose Test strip (U) [Mass/Vol] Negative NEGATIVE [facility] Hemoglobin Auto test strip Ql (U) Negative NEGATIVE [facility] Ketones (U) [Mass/Vol] Negative NEGATIVE [facility] Leukocyte esterase Test strip Ql (U) Negative NEGATIVE [facility] Nitrite Ql (U) Negative NEGATIVE [facility] pH (U) 6.5 [pH] 5.0 - 9.0 [facility] Protein (U) [Mass/Vol] Negative NEGATIVE [facility] Specific gravity (U) [Rel density] 1.010 1.010 - 1.020 [facility] Urobilinogen Qn (U) Normal Normal [facility] Urinalysis, Routineon 2022 Bilirubin, SemiQt,Ur Negative Normal NEG [facility] Comment on above: Performed By: #### B C #### [facility] [address] [place] [address] Printing Equipment Mechanic: Collette Willard MD Blood, Urine Negative Normal NEG [facility] Comment on above: Performed By: #### B C #### [facility] [address] [place] [address] Printing Equipment Mechanic: Collette Willard MD Clarity (U) Clear Normal CLEAR [facility] Comment on above: Performed By: #### B C #### [facility] [address] [place] [address] Printing Equipment Mechanic: Collette Willard MD Color (U) Yellow Normal YEL [facility] Comment on above: Performed By: #### B C #### [facility] [address] [place] [id number] Printing Equipment Mechanic: Collette Willard MD Glucose Ql (U) Negative Normal NEG [facility] Comment on above: Performed By: #### B C #### [facility] [address] [place], [place] [phone] Printing Equipment Mechanic: Collette Willard MD Ketones Ql (U) Negative Normal NEG [facility] Comment on above: Performed By: #### B C #### [facility] [address] [place] [address] Printing Equipment Mechanic: Collette Willard MD Leukocyte esterase Test strip Ql (U) Negative Normal NEG [facility] Comment on above: Performed By: #### B C #### [facility] [address] [place] [address] Printing Equipment Mechanic: Collette Willard MD Nitrite,Ur Negative Normal NEG [facility] Comment on above: Performed By: #### B C #### [facility] [address] [place] [address] Printing Equipment Mechanic: Collette Willard MD PH,Ur 6.5 Normal 5.0-9.0 [facility] Comment on above: Performed By: #### B C #### [facility] [address] [place], [place] [address] Printing Equipment Mechanic: Collette Willard MD Protein Ql (U) Negative Normal NEG [facility] Comment on above: Performed By: #### B C #### [address] [place] [address] Printing Equipment Mechanic: Collette Willard MD Spec. [place],Ur 1.010 Normal 1.010-1.020 [facility] Comment on above: Performed By: #### B C #### [facility] [address] [place] [address] Dr. [place], [place] [address] [employer]ing Equipment Mechanic: Collette Willard MD Urobilinogen,Ur Normal Normal NORM [facility] Comment on above: Performed By: #### B C #### [address] [place], [place] [address] Printing Equipment Mechanic: Collette Willard MD CBC with Diffon 09-29-2022 Abs. Basophil 0.04 k/uL Normal 0.00-0.[address] [facility] Comment on above: Performed By: #### B C #### [facility] [address] [place] [address] [place] [address] Printing Equipment Mechanic: Collette Willard MD Abs. Eosinophil <0.03 Normal 0.00-0.[address] [facility] Comment on above: Performed By: #### B C #### [facility] [address] [place] [address] Dr. [place] [phone] Printing Equipment Mechanic: Collette Willard MD Abs.Imm.Granulocyte 0.43 k/uL High 0.00-0.30 [facility] Comment on above: Performed By: #### B C #### [facility] [address] [place] [address] Dr. [place], [place] [phone] Printing Equipment Mechanic: Collette Willard MD Abs.Neutrophil (Seg) 17.50 k/uL High 1.50-8.10 [facility] Comment on above: Performed By: #### B C #### [facility] [address] [place] [address] Dr. [place], [place] [phone] Printing Equipment Mechanic: Collette Willard MD Basophils/100 WBC (Bld) 0 % Normal 0-2 [facility] Comment on above: Performed By: #### B C #### [address] [place], [place] [phone] Printing Equipment Mechanic: Collette Willard MD Eosinophils/100 WBC (Bld) 0 % Low 1-4 [facility] Comment on above: Performed By: #### B C #### [address] [place], [place] [phone] Printing Equipment Mechanic: Collette Willard MD Erythrocyte distribution width (RBC) [Ratio] 13.9 % Normal 11.8-14.4 [facility] Comment on above: Performed By: #### B C #### [address] [place], [place] [phone] Printing Equipment Mechanic: Collette Willard MD Hematocrit (Bld) [Volume fraction] 44.8 % Normal 36.3-47.1 [facility] Comment on above: Performed By: #### B C #### [address] [place] [address] Printing Equipment Mechanic: Collette Willard MD Hemoglobin (Bld) [Mass/Vol] 14.3 g/dL Normal 11.9-15.1 [facility] Comment on above: Performed By: #### B C #### [facility] [address] [place], [place] [phone] Printing Equipment Mechanic: Collette Willard MD Immature granulocytes/100 WBC (Bld) 2 % High 0 [facility] Comment on above: Performed By: #### B C #### [facility] [address] [place] [address] Dr. [place], [place] [phone] Printing Equipment Mechanic: Collette Willard MD Lymphocytes (Bld) [#/Vol] 0.80 10*3/uL Low 1.10-3.70 [facility] Comment on above: Performed By: #### B C #### [address] [place], [facility]83 Printing Equipment Mechanic: Collette Willard MD Lymphocytes/100 WBC (Bld) 4 % Low 24-43 [facility] Comment on above: Performed By: #### B C #### [address] [place], [facility]83 Printing Equipment Mechanic: Collette Willard MD MCH (RBC) [Entitic mass] 31.0 pg Normal 25.2-33.5 [facility] Comment on above: Performed By: #### B C #### [address] [place], [place] [phone] Printing Equipment Mechanic: Collette Willard MD MCHC (RBC) [Mass/Vol] 31.9 g/dL Normal 28.4-34.8 [facility] Comment on above: Performed By: #### B C #### [address] [place], [place] [phone] Printing Equipment Mechanic: Collette Willard MD MCV (RBC) [Entitic vol] 97.0 fL Normal 82.6-102.9 [facility] Comment on above: Performed By: #### B C #### [address] [place] [address] Printing Equipment Mechanic: Collette Willard MD Monocytes (Bld) [#/Vol] 1.27 10*3/uL High 0.10-1.20 [facility] Comment on above: Performed By: #### B C #### [facility] [address] [place], [place] [phone] Printing Equipment Mechanic: Collette Willard MD Monocytes/100 WBC (Bld) 6 % Normal 3-12 [facility] Comment on above: Performed By: #### B C #### [facility] [address] [place], [place] [phone] Printing Equipment Mechanic: Collette Willard MD Neutrophil (Seg) 88 % High 36-65 [facility] Comment on above: Performed By: #### B C #### [facility] [address] [place], [place] 0199583 Printing Equipment Mechanic: Collette Willard MD NRBC Automated 0.0 per 100 WBC Normal 0.0 [facility] Comment on above: Performed By: #### B C #### [facility] [address] [place] [address] Printing Equipment Mechanic: Collette Willard MD Platelet mean volume (Bld) [Entitic vol] 10.6 fL Normal 8.1-13.5 [facility] Comment on above: Performed By: #### B C #### [address] [place] [address] Printing Equipment Mechanic: Collette Willard MD Platelets (Bld) [#/Vol] 155 10*3/uL Normal 138-453 [facility] Comment on above: Performed By: #### B C #### [facility] [address] [place] [address] Dr. [place], [place] [phone] Printing Equipment Mechanic: Collette Willard MD RBC (Bld) [#/Vol] 4.62 10*6/uL Normal 3.95-5.11 [facility] Comment on above: Performed By: #### B C #### [facility] [address] [place], [place] [phone] Printing Equipment Mechanic: Collette Willard MD WBC (Bld) [#/Vol] 20.1 10*3/uL High 3.5-11.3 [facility] Comment on above: Performed By: #### B C #### [facility] [address] [place], [place] [phone] Printing Equipment Mechanic: Collette Willard MD Comp Metabolic Profon 2022 Albumin [Mass/Vol] 3.8 g/dL Normal 3.5-5.2 [facility] Comment on above: Performed By: #### B C #### [facility] [address] [place], [place] [phone] Printing Equipment Mechanic: Collette Willard MD Albumin/Glob Ratio 1.6 Normal 1.0-2.5 [facility] Comment on above: Performed By: #### B C #### [facility] [address] [place], [place] 7376983 Printing Equipment Mechanic: Collette Willard MD Alkaline Phos 127 U/L High 35-[address] [facility] Comment on above: Performed By: #### B C #### [facility] [address] [place], [place] [phone] Printing Equipment Mechanic: Collette Willard MD ALT [Catalytic activity/Vol] 55 U/L High 5-33 [facility] Comment on above: Performed By: #### B C #### [facility] [address] [place], [place] [phone] Printing Equipment Mechanic: Collette Willard MD Anion gap [Moles/Vol] 10 mmol/L Normal 9-17 [facility] Comment on above: Performed By: #### B C #### [facility] [address] [place], [place] [phone] Printing Equipment Mechanic: Collette Willard MD AST [Catalytic activity/Vol] 37 U/L High <32 [facility] Comment on above: Performed By: #### B C #### [facility] [address] [place], [place] [phone] Printing Equipment Mechanic: Collette Willard MD Bilirubin [Mass/Vol] 0.4 mg/dL Normal 0.3-1.2 [facility] Comment on above: Performed By: #### B C #### [facility] [address] [place], [place] [phone] Printing Equipment Mechanic: Collette Willard MD BUN/CRE Ratio 48 High 9-[address] [facility] Comment on above: Performed By: #### B C #### [facility] [address] [place], [place] [phone] Printing Equipment Mechanic: Collette Willard MD Calcium [Mass/Vol] 10.5 mg/dL High 8.6-10.4 [facility] Comment on above: Performed By: #### B C #### [facility] [address] [place], [place] [phone] Printing Equipment Mechanic: Collette Willard MD Chloride [Moles/Vol] 100 mmol/L Normal 98-107 [facility] Comment on above: Performed By: #### B C #### [facility] [address] [place], [place] [phone] Printing Equipment Mechanic: Collette Willard MD CO2 [Moles/Vol] 29 mmol/L Normal 20-[address] [facility] Comment on above: Performed By: #### B C #### [facility] [address] [place], [place] 9183683 Printing Equipment Mechanic: Collette Willard MD Creatinine [Mass/Vol] 0.4 mg/dL Low 0.50-0.90 [facility] Comment on above: Performed By: #### B C #### [facility] [address] [place], [place] [phone] Printing Equipment Mechanic: Collette Willard MD GFR/1.73 sq M.predicted among non-blacks MDRD (S/P/Bld) [Vol rate/Area] mL/min/{1.73_m2} Normal >60 [facility] Comment on above: Result Comment: [...] secretion. Performed By: #### B C #### [facility] [address] [place] [address] [place] [address] Printing Equipment Mechanic: Collette Willard MD Glucose [Mass/Vol] 117 mg/dL High 70-99 [facility] Comment on above: Performed By: #### B C #### [facility] [address] [place] [address] Dr. [place], [place] 9055983 Printing Equipment Mechanic: Collette Willard MD Potassium [Moles/Vol] 4.7 mmol/L Normal 3.7-5.3 [facility] Comment on above: Performed By: #### B C #### [facility] [address] [place] [address] Dr. [place], [place] [phone] Printing Equipment Mechanic: Collette Willard MD Protein [Mass/Vol] 6.2 g/dL Low 6.4-8.3 [facility] Comment on above: Performed By: #### B C #### [facility] [address] [place] [address] Dr. [place], [place] 1062183 Printing Equipment Mechanic: Collette Willard MD Sodium [Moles/Vol] 139 mmol/L Normal 135-144 [facility] Comment on above: Performed By: #### B C #### [facility] [address] [place] [address] Dr. [place], [place] 4386383 Printing Equipment Mechanic: Collette Willard MD Urea nitrogen [Mass/Vol] 19 mg/dL Normal 8-23 [facility] Comment on above: Performed By: #### B C #### [facility] [address] [place] [address] Printing Equipment Mechanic: Collette Willard MD XR cervical spine 2Von 09-21 XR cervical spine 2V [facility] Main [address] [address] XRay Report Signed Patient: Miriam German MR#: [id number] : 1955 Acct:[id number] Age/Sex: 67 / F ADM Date: 09/17/22 Loc: Room: [address] [place] [address] Type: ADM IN Attending Dr: Tom Hill [...] William Auguste M.D.09/21/2022 12:09 PM Dictation Location: [place] [address] Transcribed By: [facility] 09/21/22 1209 Dictated By: William Auguste DO 09/21/22 1205 Signed By: 09/21/22 1209 Normal [facility] Alanine aminotransferase [En zymatic activity/volume] in Serum or PlasmaOrdered By: Tom Hill on 09-18-2022 ALT [Catalytic activity/Vol] 32 U/L [facility] Albumin [Mass/volume] in Ser um or Plasma by Bromocresol green (BCG) dye binding methoOrdered By: Tom Hill on 09-18-2022 Albumin BCG dye [Mass/Vol] 3.9 g/dL 3.5-5.7 [facility] Alkaline phosphatase [Enzyma tic activity/volume] in Serum or PlasmaOrdered By: Tom Hill on 09-18-2022 ALP [Catalytic activity/Vol] 93 U/L 34-104 [facility] Aspartate aminotransferase [ Enzymatic activity/volume] in Serum or PlasmaOrdered By: Tom Hill on 09-18-2022 AST [Catalytic activity/Vol] 27 U/L 13-39 [facility] Basophils Auto (Bld) [#/Vol] Ordered By: Tom Hill on 09-18-2022 Basophils (Bld) [#/Vol] 0.1 10*3/uL 0.0-0.2 [facility] Basophils/100 WBC Auto (Bld) Ordered By: Tom Sergio on 09-18-2022 Basophils/100 WBC (Bld) 0.6 % . [facility] Bilirubin.total [Mass/volume ] in Serum or PlasmaOrdered By: Tom Hill on 09-18-2022 Bilirubin [Mass/Vol] 0.3 mg/dL 0.3-1.0 [facility] Calcium [Mass/volume] in Ser um or PlasmaOrdered By: Tom Sergio on 09-18-2022 Calcium [Mass/Vol] 10.5 mg/dL 8.6-10.3 [facility] Carbon dioxide, total [Moles /volume] in Serum or PlasmaOrdered By: Tom Hill on 09-18-2022 CO2 [Moles/Vol] 32.3 mmol/L 21.0-31.0 [facility] Chloride [Moles/volume] in S jody or PlasmaOrdered By: Tom Hill on 09-18-2022 Chloride [Moles/Vol] 106 mmol/L 98-107 [facility] Complete Blood Count Auto Di ffon 09-18-2022 Basophils (Bld) [#/Vol] 0.1 10*3/uL Normal 0.0-0.2 [facility] Comment on above: Result Comment: PERF ORMED BY: [facility] [address] [place] [address] PATHOLOGIST SHIFT MGR PETER RAYO M.D. Performed By: #### C MP, PAB, CBC #### [facility] [address] [place] [address] [place] Basophils/100 WBC (Bld) 0.6 % Normal . [facility] Comment on above: Performed By: #### C MP, PAB, CBC #### [facility] [address] [place] [address] [place] Eosinophils (Bld) [#/Vol] 0.0 10*3/uL Normal 0.0-0.45 [facility] Comment on above: Performed By: #### C MP, PAB, CBC #### [facility] [address] [place] [address] [place] Eosinophils/100 WBC (Bld) 0.0 % Normal . [facility] Comment on above: Performed By: #### C MP, PAB, CBC #### [address] Erythrocyte distribution width (RBC) [Ratio] 14.5 % Normal 11.9-15.3 [facility] Comment on above: Performed By: #### C MP, PAB, CBC #### [place] [address] [place] Hematocrit (Bld) [Volume fraction] 39.4 % Normal 34.0-46.4 [facility] Comment on above: Performed By: #### C MP, PAB, CBC #### [facility] [address] [place] [address] [place] Hemoglobin (Bld) [Mass/Vol] 12.9 g/dL Normal 11.8-15.4 [facility] Comment on above: Performed By: #### C MP, PAB, CBC #### [facility] [address] [place] [address] [place] Lymphocytes (Bld) [#/Vol] 1.1 10*3/uL Normal 1.00-4.8 [facility] Comment on above: Performed By: #### C MP, PAB, CBC #### [facility] [address] [place] [address] [place] Lymphocytes/100 WBC (Bld) 9.2 % Normal . [facility] Comment on above: Performed By: #### C MP, PAB, CBC #### [facility] [address] MCH (RBC) [Entitic mass] 30.7 pg Normal 24.7-34.3 [facility] Comment on above: Performed By: #### C MP, PAB, CBC #### [address] MCV (RBC) [Entitic vol] 93.4 fL Normal 80-100 [facility] Comment on above: Performed By: #### C MP, PAB, CBC #### [address] Mean Corpuscular HGB Conc 32.8 g/dL Normal 32.0-35.0 [facility] Comment on above: Performed By: #### C MP, PAB, CBC #### [address] Monocytes (Bld) [#/Vol] 1.0 10*3/uL High 0.0-0.8 [facility] Comment on above: Performed By: #### C MP, PAB, CBC #### [address] Monocytes/100 WBC (Bld) 8.3 % Normal . [facility] Comment on above: Performed By: #### C MP, PAB, CBC #### [address] Neutrophils (Bld) [#/Vol] 9.9 10*3/uL High 1.8-7.7 [facility] Comment on above: Performed By: #### C MP, PAB, CBC #### [address] Neutrophils/100 WBC (Bld) 81.9 % Normal . [facility] Comment on above: Performed By: #### C MP, PAB, CBC #### [address] NRBC% 0.1 /100{WBC} Normal 0-0.5 [facility] Comment on above: Performed By: #### C MP, PAB, CBC #### [facility] [address] Platelet mean volume (Bld) [Entitic vol] 8.1 fL Normal 6.3-10.7 [facility] Comment on above: Performed By: #### C MP, PAB, CBC #### [address] Platelets (Bld) [#/Vol] 220 10*3/uL Normal 150-450 [facility] Comment on above: Performed By: #### C MP, PAB, CBC #### [address] RBC (Bld) [#/Vol] 4.22 10*6/uL Normal 3.60-5.00 [facility] Comment on above: Performed By: #### C MP, PAB, CBC #### [address] WBC (Bld) [#/Vol] 12.1 10*3/uL High 3.8-11.6 [facility] Comment on above: Performed By: #### C MP, PAB, CBC #### [address] Comprehensive Metabolic Pane markell 09-18-2022 Albumin [Mass/Vol] 3.9 g/dL Normal 3.5-5.7 [facility] Comment on above: Performed By: #### C MP, PAB, CBC #### [address] Albumin/Globulin [Mass ratio] 1.7 {ratio} Normal [facility] Comment on above: Performed By: #### C MP, PAB, CBC #### [address] ALP [Catalytic activity/Vol] 93 U/L Normal 34-104 [facility] Comment on above: Performed By: #### C MP, PAB, CBC #### [address] ALT [Catalytic activity/Vol] 32 U/L Normal 7-52 [facility] Comment on above: Performed By: #### C MP, PAB, CBC #### [facility] [address] [place] [address] [place] Anion gap [Moles/Vol] 9.1 mmol/L Normal 6.0-15.0 [facility] Comment on above: Performed By: #### C MP, PAB, CBC #### [facility] [address] [place] [id number] [place] AST [Catalytic activity/Vol] 27 U/L Normal 13-39 [facility] Comment on above: Performed By: #### C MP, PAB, CBC #### [facility] [address] Bilirubin [Mass/Vol] 0.3 mg/dL Normal 0.3-1.0 [facility] Comment on above: Performed By: #### C MP, PAB, CBC #### [facility] [address] [place] [address] [place] Calcium [Mass/Vol] 10.5 mg/dL High 8.6-10.3 [facility] Comment on above: Performed By: #### C MP, PAB, CBC #### [facility] [address] [place] [address] [place] Chloride [Moles/Vol] 106 mmol/L Normal 98-107 [facility] Comment on above: Performed By: #### C MP, PAB, CBC #### [facility] [address] [place] [address] [place] CO2 [Moles/Vol] 32.3 mmol/L High 21.0-31.0 [facility] Comment on above: Performed By: #### C MP, PAB, CBC #### [facility] [address] [place] [address] [place] Creatinine [Mass/Vol] 0.46 mg/dL Low 0.60-1.20 [facility] Comment on above: Performed By: #### C MP, PAB, CBC #### [facility] [address] [place] [id number] [place] Creatinine Clr Calc Pharmacy 72.98 Normal [facility] Comment on above: Performed By: #### C MP, PAB, CBC #### [facility] [address] [place] [address] [place] GFR/1.73 sq M.predicted MDRD (S/P/Bld) [Vol rate/Area] mL/min/{1.73_m2} [facility] Comment on above: Performed By: #### C MP, PAB, CBC #### [facility] [address] Globulin (S) [Mass/Vol] 2.3 g/dL [facility] Comment on above: Performed By: #### C MP, PAB, CBC #### [facility] [address] Glucose [Mass/Vol] 113 mg/dL High 70-100 [facility] Comment on above: Result Comment: [place] Glucose Reference Range is dependent on time and content of last meal. Glucose of more than 200 mg/dL in a nonstressed, ambulatory subject supports the diagnosis of Diabetes Mellitus. ADA recommended reference range Performed By: #### C MP, PAB, CBC #### [facility] [address] Potassium [Moles/Vol] 4.4 mmol/L Normal 3.5-5.1 [facility] Comment on above: Performed By: #### C MP, PAB, CBC #### [facility] [address] Protein [Mass/Vol] 6.2 g/dL Low 6.4-8.9 [facility] Comment on above: Performed By: #### C MP, PAB, CBC #### [facility] [address] [place] [address] [place] Sodium [Moles/Vol] 143 mmol/L Normal 136-145 [facility] Comment on above: Performed By: #### C MP, PAB, CBC #### [facility] [address] Urea nitrogen [Mass/Vol] 21 mg/dL Normal 7-25 [facility] Comment on above: Performed By: #### C MP, PAB, CBC #### [facility] [address] Creatinine [Mass/volume] in Serum or PlasmaOrdered By: Tom Hill on 09-18-2022 Creatinine [Mass/Vol] 0.46 mg/dL 0.60-1.20 [facility] Eosinophils Auto (Bld) [#/Vo l]Ordered By: Tom Hill on 09-18-2022 Eosinophils (Bld) [#/Vol] 0.0 10*3/uL 0.0-0.45 [facility] Eosinophils/100 WBC Auto (Bl d)Ordered By: Tom Hill on 09-18-2022 Eosinophils/100 WBC (Bld) 0.0 % . [facility] Erythrocyte distribution wid th Auto (RBC) [Ratio]Ordered By: Tom Hill on 09-18-2022 Erythrocyte distribution width (RBC) [Ratio] 14.5 % 11.9-15.3 [facility] Globulin Calc (S) [Mass/Vol] Ordered By: Tom Hill on 09-18-2022 Globulin (S) [Mass/Vol] 2.3 g/dL [facility] Glucose [Mass/volume] in Ser um or PlasmaOrdered By: Tom Hill on 09-18-2022 Glucose [Mass/Vol] 113 mg/dL 70-100 [facility] Comment on above: ADA recommended refe rence rangeRandom Glucose Reference Range is dependent on time and content of last meal. Glucose of more than 200 mg/dL in a nonstressed, ambulatory subject supports the diagnosis of Diabetes Mellitus. Hematocrit Auto (Bld) [Volum e fraction]Ordered By: Tom Hill on 09-18-2022 Hematocrit (Bld) [Volume fraction] 39.4 % 34.0-46.4 [facility] Hemoglobin [Mass/volume] in BloodOrdered By: Tom Hill on 09-18-2022 Hemoglobin (Bld) [Mass/Vol] 12.9 g/dL 11.8-15.4 [facility] Leukocytes [#/volume] correc nilay for nucleated erythrocytes in Blood by Automated counOrdered By: Tom Hill on 09-18-2022 WBC corrected for nucl RBC Auto (Bld) [#/Vol] 12.1 10*3/uL 3.8-11.6 [facility] Lymphocytes Auto (Bld) [#/Vo l]Ordered By: Tom Hill on 09-18-2022 Lymphocytes (Bld) [#/Vol] 1.1 10*3/uL 1.00-4.8 [facility] Lymphocytes/100 WBC Auto (Bl d)Ordered By: Tom Hill on 09-18-2022 Lymphocytes/100 WBC (Bld) 9.2 % . [facility] MCH Auto (RBC) [Entitic mass ]Ordered By: Tom Hill on 09-18-2022 MCH (RBC) [Entitic mass] 30.7 pg 24.7-34.3 [facility] MCHC Auto (RBC) [Mass/Vol]Or dered By: Tom Hill on 09-18-2022 MCHC (RBC) [Mass/Vol] 32.8 g/dL 32.0-35.0 [facility] MCV Auto (RBC) [Entitic vol] Ordered By: Tmo Hill on 09-18-2022 MCV (RBC) [Entitic vol] 93.4 fL 80-100 [facility] Monocytes Auto (Bld) [#/Vol] Ordered By: Tom Hill on 09-18-2022 Monocytes (Bld) [#/Vol] 1.0 10*3/uL 0.0-0.8 [facility] Monocytes/100 WBC Auto (Bld) Ordered By: Tom Hill on 09-18-2022 Monocytes/100 WBC (Bld) 8.3 % . [facility] Neutrophils Auto (Bld) [#/Vo l]Ordered By: Tom Hill on 09-18-2022 Neutrophils (Bld) [#/Vol] 9.9 10*3/uL 1.8-7.7 [facility] Neutrophils/100 WBC Auto (Bl d)Ordered By: Tom Hill on 09-18-2022 Neutrophils/100 WBC (Bld) 81.9 % . [facility] No Panel InformationOrdered By: Tom Hill on 09-18-2022 Estimated GFR (CKD-EPI) > 60.0 mL/Min [facility] Creatinine Clearance (Chem 72.98 [facility] Nucleated erythrocytes [Pres ence] in Blood by Automated countOrdered By: Tom Hill on 09-18-2022 Nucleated RBC Auto Ql (Bld) 0.1 /100{WBC} 0-0.5 [facility] Platelet mean volume Auto (B ld) [Entitic vol]Ordered By: Tom Hill on 09-18-2022 Platelet mean volume (Bld) [Entitic vol] 8.1 fL 6.3-10.7 [facility] Platelets Auto (Bld) [#/Vol] Ordered By: Tom Hill on 09-18-2022 Platelets (Bld) [#/Vol] 220 10*3/uL 150-450 [facility] Potassium [Moles/volume] in Serum or PlasmaOrdered By: Tom Hill on 09-18-2022 Potassium [Moles/Vol] 4.4 mmol/L 3.5-5.1 [facility] Prealbuminon 09-18-2022 Prealbumin [Mass/Vol] 39.3 mg/dL High 17.0-34.0 [facility] Comment on above: Result Comment: PERF ORMED BY: [facility] [address] [place] [address] PATHOLOGIST SHIFT MGR PETER RAYO M.D. Performed By: #### A BG #### Point of Care testing , Prealbumin [Mass/volume] in Serum or PlasmaOrdered By: Tom Hill on 09-18-2022 Prealbumin [Mass/Vol] 39.3 mg/dL 17.0-34.0 [facility] Protein [Mass/volume] in Ser um or PlasmaOrdered By: Tom Hill on 09-18-2022 Protein [Mass/Vol] 6.2 g/dL 6.4-8.9 [facility] RBC Auto (Bld) [#/Vol]Ordere d By: Tom Hill on 09-18-2022 RBC (Bld) [#/Vol] 4.22 10*6/uL 3.60-5.00 [facility] Serum or plasma albumin/glob ulin mass ratioOrdered By: Tom Hill on 09-18-2022 Albumin/Globulin [Mass ratio] 1.7 {ratio} [facility] Serum or plasma anion gap de terminationOrdered By: Tom Hill on 09-18-2022 Anion gap [Moles/Vol] 9.1 mmol/L 6.0-15.0 [facility] Sodium [Moles/volume] in Ser um or PlasmaOrdered By: Tom Hill on 09-18-2022 Sodium [Moles/Vol] 143 mmol/L 136-145 [facility] Urea nitrogen [Mass/volume] in Serum or PlasmaOrdered By: Tom Hill on 09-18-2022 Urea nitrogen [Mass/Vol] 21 mg/dL 7- [facility] WBC Auto (Bld) [#/Vol]Ordere d By: Tom Hill on 09-18-2022 WBC (Bld) [#/Vol] 12.1 10*3/uL 3.8-11.6 [facility] Anisocytosis LM Ql (Bld)Orde red By: Mildred Summers on 09-17-2022 Anisocytosis Ql (Bld) Slight [facility] Basic Metabolic Panelon 08-22 Anion gap [Moles/Vol] 9.4 mmol/L Normal 6.0-15.0 [facility] Comment on above: Order Comment: pt ge tting pt check back Performed By: #### R SUSI WEISS REDRAW K #### [facility] [address] [place] [address] [place] Calcium [Mass/Vol] 10.4 mg/dL High 8.6-10.3 [facility] Comment on above: Order Comment: pt ge tting pt check back Performed By: #### R MATEO EPPERSONRASrikanth K #### [facility] [address] [id number] [place] Chloride [Moles/Vol] 104 mmol/L Normal 98-107 [facility] Comment on above: Order Comment: pt ge tting pt check back Performed By: #### R SUSI WEISS REDRAW K #### [facility] [address] [id number] [place] CO2 [Moles/Vol] 31.9 mmol/L High 21.0-31.0 [facility] Comment on above: Order Comment: pt ge tting pt check back Performed By: #### GABINO BENOIT #### [facility] [address] [place] [address] Creatinine [Mass/Vol] 0.46 mg/dL Low 0.60-1.20 [facility] Comment on above: Order Comment: pt ge tting pt check back Performed By: #### GABINO BENOIT #### [place] [address] [place] Creatinine Clr Calc Pharmacy 73.67 [facility] Comment on above: Order Comment: pt ge tting pt check back Result Comment: PERF ORMED BY: [place] [address] PATHOLOGIST SHIFT MGR PETER RAYO M.D. Performed By: #### GABINO BENOIT #### [address] GFR/1.73 sq M.predicted MDRD (S/P/Bld) [Vol rate/Area] mL/min/{1.73_m2} [facility] Comment on above: Order Comment: pt ge tting pt check back Performed By: #### GABINO BENOIT #### [address] Glucose [Mass/Vol] 115 mg/dL High 70-100 [facility] Comment on above: Order Comment: pt ge tting pt check back Result Comment: [place] om Glucose Reference Range is dependent on time and content of last meal. Glucose of more than 200 mg/dL in a nonstressed, ambulatory subject supports the diagnosis of Diabetes Mellitus. ADA recommended reference range Performed By: #### GABINO BENOIT #### [place] [address] [place] Potassium [Moles/Vol] 4.3 mmol/L Normal 3.5-5.1 [facility] Comment on above: Order Comment: pt ge tting pt check back Performed By: #### R EDJAXON WEISS REDRAW K #### [facility] [address] Sodium [Moles/Vol] 141 mmol/L Normal 136-145 [facility] Comment on above: Order Comment: pt ge tting pt check back Performed By: #### R SUSI WEISS REDRAW K #### [facility] [address] Urea nitrogen [Mass/Vol] 22 mg/dL Normal 7-25 [facility] Comment on above: Order Comment: pt ge tting pt check back Performed By: #### R SUSI WEISS REDRAW K #### [facility] [address] Basophils Auto (Bld) [#/Vol] Ordered By: Mildred Summers on 09-17-2022 Basophils (Bld) [#/Vol] 0.1 10*3/uL 0.0-0.2 [facility] Basophils/100 WBC Auto (Bld) Ordered By: Mildred Summers on 09-17-2022 Basophils/100 WBC (Bld) 0.4 % . [facility] Calcium [Mass/volume] in Ser um or PlasmaOrdered By: Arnaud Max on 09-17-2022 Calcium [Mass/Vol] 10.4 mg/dL 8.6-10.3 [facility] Carbon dioxide, total [Moles /volume] in Serum or PlasmaOrdered By: Arnaud Max on 09-17-2022 CO2 [Moles/Vol] 31.9 mmol/L 21.0-31.0 [facility] Chloride [Moles/volume] in S jody or PlasmaOrdered By: Arnaud Max on 09-17-2022 Chloride [Moles/Vol] 104 mmol/L 98-107 [facility] Creatinine [Mass/volume] in Serum or PlasmaOrdered By: Arnaud Max on 09-17-2022 Creatinine [Mass/Vol] 0.46 mg/dL 0.60-1.20 [facility] Eosinophils Auto (Bld) [#/Vo l]Ordered By: Mildred Summers on 09-17-2022 Eosinophils (Bld) [#/Vol] 0.2 10*3/uL 0.0-0.45 [facility] Eosinophils/100 WBC Auto (Bl d)Ordered By: Mildred Summers on 09-17-2022 Eosinophils/100 WBC (Bld) 1.6 % . [facility] Erythrocyte distribution wid th Auto (RBC) [Ratio]Ordered By: Mildred Summers on 09-17-2022 Erythrocyte distribution width (RBC) [Ratio] 14.9 % 11.9-15.3 [facility] Glucose [Mass/volume] in Ser um or PlasmaOrdered By: Arnaud Max on 09-17-2022 Glucose [Mass/Vol] 115 mg/dL 70-100 [facility] Comment on above: ADA recommended refe rence rangeRandom Glucose Reference Range is dependent on time and content of last meal. Glucose of more than 200 mg/dL in a nonstressed, ambulatory subject supports the diagnosis of Diabetes Mellitus. Hematocrit Auto (Bld) [Volum e fraction]Ordered By: Mildred Summers on 09-17-2022 Hematocrit (Bld) [Volume fraction] 38.0 % 34.0-46.4 [facility] Hemoglobin [Mass/volume] in BloodOrdered By: Mildred Summers on 09-17-2022 Hemoglobin (Bld) [Mass/Vol] 12.7 g/dL 11.8-15.4 [facility] Leukocytes [#/volume] correc nilay for nucleated erythrocytes in Blood by Automated counOrdered By: Mildred Summers on 09-17-2022 WBC corrected for nucl RBC Auto (Bld) [#/Vol] 15.1 10*3/uL 3.8-11.6 [facility] Lymphocytes Auto (Bld) [#/Vo l]Ordered By: Mildred Summers on 09-17-2022 Lymphocytes (Bld) [#/Vol] 1.0 10*3/uL 1.00-4.8 [facility] Lymphocytes/100 WBC Auto (Bl d)Ordered By: Mildred Summers on 09-17-2022 Lymphocytes/100 WBC (Bld) 6.9 % . [facility] MCH Auto (RBC) [Entitic mass ]Ordered By: Mildred Summers on 09-17-2022 MCH (RBC) [Entitic mass] 31.2 pg 24.7-34.3 [facility] MCHC Auto (RBC) [Mass/Vol]Or dered By: Mildred Summers on 09-17-2022 MCHC (RBC) [Mass/Vol] 33.6 g/dL 32.0-35.0 [facility] MCV Auto (RBC) [Entitic vol] Ordered By: Mildred Summers on 09-17-2022 MCV (RBC) [Entitic vol] 92.9 fL 80-100 [facility] Microcytes LM Ql (Bld)Ordere d By: Mildred Summers on 09-17-2022 Microcytes Ql (Bld) Slight [facility] Monocytes Auto (Bld) [#/Vol] Ordered By: Mildred Summers on 09-17-2022 Monocytes (Bld) [#/Vol] 1.1 10*3/uL 0.0-0.8 [facility] Monocytes/100 WBC Auto (Bld) Ordered By: Mildred Summers on 09-17-2022 Monocytes/100 WBC (Bld) 7.6 % . [facility] Neutrophils Auto (Bld) [#/Vo l]Ordered By: Mildred Summers on 09-17-2022 Neutrophils (Bld) [#/Vol] 12.6 10*3/uL 1.8-7.7 [facility] Neutrophils/100 WBC Auto (Bl d)Ordered By: Mildred Summers on 09-17-2022 Neutrophils/100 WBC (Bld) 83.5 % . [facility] No Panel InformationOrdered By: Arnaud Max on 09-17-2022 Estimated GFR (CKD-EPI) > 60.0 mL/Min [facility] Creatinine Clearance (Chem 73.67 [facility] Nucleated erythrocytes [Pres ence] in Blood by Automated countOrdered By: Mildred Summers on 09-17-2022 Nucleated RBC Auto Ql (Bld) 0.2 /100{WBC} 0-0.5 [facility] Platelet adequacy [Presence] in Blood by Light microscopyOrdered By: Mildred Summers on 09-17-2022 Platelets LM Ql (Bld) Normal Normal [facility] Platelet mean volume Auto (B ld) [Entitic vol]Ordered By: Mildred Summers on 09-17-2022 Platelet mean volume (Bld) [Entitic vol] 8.5 fL 6.3-10.7 [facility] Platelet morphology finding [Identifier] in BloodOrdered By: Mildred Summers on 09-17-2022 Platelet morphology finding Nom (Bld) Normal Normal [facility] Platelets Auto (Bld) [#/Vol] Ordered By: Mildred Summers on 09-17-2022 Platelets (Bld) [#/Vol] 278 10*3/uL 150-450 [facility] Potassium [Moles/volume] in Serum or PlasmaOrdered By: Arnaud Max on 09-17-2022 Potassium [Moles/Vol] 4.3 mmol/L 3.5-5.1 [facility] RBC Auto (Bld) [#/Vol]Ordere d By: Mildred Summers on 09-17-2022 RBC (Bld) [#/Vol] 4.09 10*6/uL 3.60-5.00 [facility] RBC morphologyOrdered By: Leidy Summers on 09-17-2022 RBC morphology finding Nom (Bld) N/A [facility] Scan and CBCon 09-17-2022 Anisocytosis Ql (Bld) Slight Normal [facility] Comment on above: Performed By: #### A BG #### Point of Care testing , Basophils (Bld) [#/Vol] 0.1 10*3/uL Normal 0.0-0.2 [facility] Comment on above: Performed By: #### A BG #### Point of Care testing , Basophils/100 WBC (Bld) 0.4 % Normal . [facility] Comment on above: Performed By: #### A BG #### Point of Care testing , Eosinophils (Bld) [#/Vol] 0.2 10*3/uL Normal 0.0-0.45 [facility] Comment on above: Performed By: #### A BG #### Point of Care testing , Eosinophils/100 WBC (Bld) 1.6 % Normal . [facility] Comment on above: Performed By: #### A BG #### Point of Care testing , Erythrocyte distribution width (RBC) [Ratio] 14.9 % Normal 11.9-15.3 [facility] Comment on above: Performed By: #### A BG #### Point of Care testing , Hematocrit (Bld) [Volume fraction] 38.0 % Normal 34.0-46.4 [facility] Comment on above: Performed By: #### A BG #### Point of Care testing , Hemoglobin (Bld) [Mass/Vol] 12.7 g/dL Normal 11.8-15.4 [facility] Comment on above: Performed By: #### A BG #### Point of Care testing , Lymphocytes (Bld) [#/Vol] 1.0 10*3/uL Normal 1.00-4.8 [facility] Comment on above: Performed By: #### A BG #### Point of Care testing , Lymphocytes/100 WBC (Bld) 6.9 % Normal . [facility] Comment on above: Performed By: #### A BG #### Point of Care testing , MCH (RBC) [Entitic mass] 31.2 pg Normal 24.7-34.3 [facility] Comment on above: Performed By: #### A BG #### Point of Care testing , MCV (RBC) [Entitic vol] 92.9 fL Normal 80-100 [facility] Comment on above: Performed By: #### A BG #### Point of Care testing , Mean Corpuscular HGB Conc 33.6 g/dL Normal 32.0-35.0 [facility] Comment on above: Performed By: #### A BG #### Point of Care testing , Microcytosis Slight Normal [facility] Comment on above: Performed By: #### A BG #### Point of Care testing , Monocytes (Bld) [#/Vol] 1.1 10*3/uL High 0.0-0.8 [facility] Comment on above: Performed By: #### A BG #### Point of Care testing , Monocytes/100 WBC (Bld) 7.6 % Normal . [facility] Comment on above: Performed By: #### A BG #### Point of Care testing , Neutrophils (Bld) [#/Vol] 12.6 10*3/uL High 1.8-7.7 [facility] Comment on above: Performed By: #### A BG #### Point of Care testing , Neutrophils/100 WBC (Bld) 83.5 % Normal . [facility] Comment on above: Performed By: #### A BG #### Point of Care testing , NRBC% 0.2 /100{WBC} Normal 0-0.5 [facility] Comment on above: Performed By: #### A BG #### Point of Care testing , Platelet Estimate Normal Normal Normal [facility] Comment on above: Performed By: #### A BG #### Point of Care testing , Platelet mean volume (Bld) [Entitic vol] 8.5 fL Normal 6.3-10.7 [facility] Comment on above: Performed By: #### A BG #### Point of Care testing , Platelet Morphology Normal Normal Normal [facility] Comment on above: Result Comment: PERF ORMED BY: [facility] [address] [place] [address] PATHOLOGIST SHIFT MGR PETER RAYO M.D. Performed By: #### A BG #### Point of Care testing , Platelets (Bld) [#/Vol] 278 10*3/uL Normal 150-450 [facility] Comment on above: Performed By: #### A BG #### Point of Care testing , RBC (Bld) [#/Vol] 4.09 10*6/uL Normal 3.60-5.00 [facility] Comment on above: Performed By: #### A BG #### Point of Care testing , WBC (Bld) [#/Vol] 15.1 10*3/uL High 3.8-11.6 [facility] Comment on above: Performed By: #### A BG #### Point of Care testing , Serum or plasma anion gap de terminationOrdered By: Arnaud Max on 09-17-2022 Anion gap [Moles/Vol] 9.4 mmol/L 6.0-15.0 [facility] Sodium [Moles/volume] in Ser um or PlasmaOrdered By: Arnaud Max on 09-17-2022 Sodium [Moles/Vol] 141 mmol/L 136-145 [facility] Urea nitrogen [Mass/volume] in Serum or PlasmaOrdered By: Arnaud Max on 09-17-2022 Urea nitrogen [Mass/Vol] 22 mg/dL 10-14 [facility] WBC Auto (Bld) [#/Vol]Ordere d By: Mildrde Summers on 09-17-2022 WBC (Bld) [#/Vol] 15.1 10*3/uL 3.8-11.6 [facility] Basic Metabolic Panelon 08-22 Anion gap [Moles/Vol] Not performed Normal 6.0-15.0 [facility] Comment on above: Performed By: #### R GABINO EPPERSON #### [facility] [address] [place] [address] [place] Calcium [Mass/Vol] 10.5 mg/dL High 8.6-10.3 [facility] Comment on above: Performed By: #### R GABINO EPPERSON #### [facility] [address] [place] [id number] [place] Chloride [Moles/Vol] 100 mmol/L Normal 98-107 [facility] Comment on above: Performed By: #### R GABINO EPPERSON K #### [facility] [address] [id number] [place] CO2 [Moles/Vol] 30.2 mmol/L Normal 21.0-31.0 [facility] Comment on above: Performed By: #### R GABINO EPPERSON K #### [facility] [address] [place] [address] [place] Creatinine [Mass/Vol] 0.53 mg/dL Low 0.60-1.20 [facility] Comment on above: Performed By: #### GABINO BENOIT #### [address] Creatinine Clr Calc Pharmacy 72.44 Normal [facility] Comment on above: Result Comment: PERF ORMED BY: [place] [address] PATHOLOGIST SHIFT MGR PETER RAYO M.D. Performed By: #### GABINO BENOIT #### [address] GFR/1.73 sq M.predicted MDRD (S/P/Bld) [Vol rate/Area] mL/min/{1.73_m2} [facility] Comment on above: Performed By: #### GABINO BENOIT #### [address] Glucose [Mass/Vol] 124 mg/dL High 70-100 [facility] Comment on above: Result Comment: [place] Glucose Reference Range is dependent on time and content of last meal. Glucose of more than 200 mg/dL in a nonstressed, ambulatory subject supports the diagnosis of Diabetes Mellitus. ADA recommended reference range Performed By: #### GABINO BENOIT #### [address] Potassium Normal 3.5-5.1 [facility] Comment on above: Result Comment: Spec imen hemolyzed, redraw requested Performed By: #### GABINO BENOIT #### [place] [address] [place] Sodium [Moles/Vol] 137 mmol/L Normal 136-145 [facility] Comment on above: Performed By: #### GABINO BENOIT #### [address] Urea nitrogen [Mass/Vol] 16 mg/dL Normal 7-25 [facility] Comment on above: Performed By: #### GABINO BENOIT #### [address] Complete Blood Count Auto Di ffon 09-16-2022 Basophils (Bld) [#/Vol] 0.0 10*3/uL Normal 0.0-0.2 [facility] Comment on above: Result Comment: PERF ORMED BY: [place] [address] PATHOLOGIST SHIFT MGR PETER RAYO M.D. Performed By: #### GABINO BENOIT #### [address] Basophils/100 WBC (Bld) 0.2 % Normal . [facility] Comment on above: Performed By: #### GABINO BENOIT #### [address] Eosinophils (Bld) [#/Vol] 0.0 10*3/uL Normal 0.0-0.45 [facility] Comment on above: Performed By: #### GABINO BENOIT #### [address] Eosinophils/100 WBC (Bld) 0.0 % Normal . [facility] Comment on above: Performed By: #### GABINO BENOIT #### [address] Erythrocyte distribution width (RBC) [Ratio] 14.5 % Normal 11.9-15.3 [facility] Comment on above: Performed By: #### GABINO BENOIT #### [address] Hematocrit (Bld) [Volume fraction] 38.0 % Normal 34.0-46.4 [facility] Comment on above: Performed By: #### GABINO BENOIT #### [address] Hemoglobin (Bld) [Mass/Vol] 12.8 g/dL Normal 11.8-15.4 [facility] Comment on above: Performed By: #### GABINO BENOIT #### [address] Lymphocytes (Bld) [#/Vol] 0.7 10*3/uL Low 1.00-4.8 [facility] Comment on above: Performed By: #### GABINO BENOIT #### [address] Lymphocytes/100 WBC (Bld) 4.4 % Normal . [facility] Comment on above: Performed By: #### GABINO BENOIT #### [address] MCH (RBC) [Entitic mass] 31.0 pg Normal 24.7-34.3 [facility] Comment on above: Performed By: #### GABINO BENOIT #### [address] MCV (RBC) [Entitic vol] 91.9 fL Normal 80-100 [facility] Comment on above: Performed By: #### GABINO BENOIT #### [address] Mean Corpuscular HGB Conc 33.8 g/dL Normal 32.0-35.0 [facility] Comment on above: Performed By: #### GABINO BENOIT #### [address] Monocytes (Bld) [#/Vol] 0.5 10*3/uL Normal 0.0-0.8 [facility] Comment on above: Performed By: #### GABINO BENOIT #### [address] Monocytes/100 WBC (Bld) 3.3 % Normal . [facility] Comment on above: Performed By: #### GABINO BENOIT #### [facility] [address] [place] [address] Neutrophils (Bld) [#/Vol] 14.2 10*3/uL High 1.8-7.7 [facility] Comment on above: Performed By: #### GABINO BENOIT #### [address] Neutrophils/100 WBC (Bld) 92.1 % Normal . [facility] Comment on above: Performed By: #### GABINO BENOIT #### [address] NRBC% 0.0 /100{WBC} Normal 0-0.5 [facility] Comment on above: Performed By: #### GABINO BENOIT #### [address] Platelet mean volume (Bld) [Entitic vol] 7.8 fL Normal 6.3-10.7 [facility] Comment on above: Performed By: #### GABINO BENOIT #### [address] Platelets (Bld) [#/Vol] 247 10*3/uL Normal 150-450 [facility] Comment on above: Performed By: #### GABINO BENOIT #### [address] RBC (Bld) [#/Vol] 4.14 10*6/uL Normal 3.60-5.00 [facility] Comment on above: Performed By: #### GABINO BENOIT #### [address] WBC (Bld) [#/Vol] 15.5 10*3/uL High 3.8-11.6 [facility] Comment on above: Performed By: #### R EDRAW NA, REDRAW K #### [address] ECG 12 lead ECGon 09-16-2022 ECG 12 lead ECG [facility] [address] [place] [address] [place] [address] Electrocardiograph Report Signed Patient: Miriam German MR#: [id number] : 1955 Acct:[id number] Age/Sex: 67 / F ADM Date: 09/10/22 Loc: Room: [address] [place] [address] Type: DIS IN Attending Dr: Arnaud Max [...] By William Broderick DO 09/26 1255 Normal [facility] Redraw Potassiumon 3 Potassium [Moles/Vol] 4.2 mmol/L Normal 3.5-5.1 [facility] Comment on above: Order Comment: FIRST SPECIMEN HEMOLYZED Result Comment: PERF ORMED BY: [place] [address] PATHOLOGIST SHIFT MGR PETER RAYO M.D. Performed By: #### A BG #### Point of Care testing , Activated partial thrombopla stin time (aPTT) in platelet poor plasma by coagulation aOrdered By: Boni Lincoln on 09-15-2022 aPTT Coag (PPP) [Time] 25.0 s 25.1-36.5 [facility] Basic Metabolic Panelon 06-2 Anion gap [Moles/Vol] Not performed Normal 6.0-15.0 [facility] Comment on above: Performed By: #### A BG #### Point of Care testing , Calcium [Mass/Vol] 9.9 mg/dL Normal 8.6-10.3 [facility] Comment on above: Performed By: #### A BG #### Point of Care testing , Chloride [Moles/Vol] 102 mmol/L Normal 98-107 [facility] Comment on above: Performed By: #### A BG #### Point of Care testing , CO2 [Moles/Vol] 27.6 mmol/L Normal 21.0-31.0 [facility] Comment on above: Performed By: #### A BG #### Point of Care testing , Creatinine [Mass/Vol] 0.47 mg/dL Low 0.60-1.20 [facility] Comment on above: Performed By: #### A BG #### Point of Care testing , Creatinine Clr Calc Pharmacy 74.57 [facility] Comment on above: Result Comment: PERF ORMED BY: [facility] [address] [place] [address] PATHOLOGIST SHIFT MGR PETER RAYO M.D. Performed By: #### A BG #### Point of Care testing , GFR/1.73 sq M.predicted MDRD (S/P/Bld) [Vol rate/Area] mL/min/{1.73_m2} [facility] Comment on above: Performed By: #### A BG #### Point of Care testing , Glucose [Mass/Vol] 107 mg/dL High 70-100 [facility] Comment on above: Result Comment: [place] Glucose Reference Range is dependent on time and content of last meal. Glucose of more than 200 mg/dL in a nonstressed, ambulatory subject supports the diagnosis of Diabetes Mellitus. ADA recommended reference range Performed By: #### A BG #### Point of Care testing , Potassium Normal 3.5-5.1 [facility] Comment on above: Result Comment: Spec imen hemolyzed, redraw requested Performed By: #### A BG #### Point of Care testing , Sodium Normal 136-145 [facility] Comment on above: Result Comment: Spec imen hemolyzed, redraw requested Performed By: #### A BG #### Point of Care testing , Urea nitrogen [Mass/Vol] 20 mg/dL Normal 7-25 [facility] Comment on above: Performed By: #### A BG #### Point of Care testing , Coagulation Profileon 2022 aPTT Coag (Bld) [Time] 25.0 s Low 25.1-36.5 [facility] Comment on above: Result Comment: PERF ORMED BY: [address] [place] [address] PATHOLOGIST SHIFT MGR PETER RAYO M.D. Performed By: #### A BG #### Point of Care testing , INR Coag (PPP) [Relative time] 0.9 {INR} Normal [facility] Comment on above: Result Comment: INR [...] Coag (PPP) [Time] 10.8 s Normal 9.0-12.9 [facility] Comment on above: Performed By: #### A BG #### Point of Care testing , Complete Blood Count Auto Di ffon 09-15-2022 Basophils (Bld) [#/Vol] 0.1 10*3/uL Normal 0.0-0.2 [facility] Comment on above: Result Comment: PERF ORMED BY: [facility] [address] [place] [address] PATHOLOGIST SHIFT MGR PETER RAYO M.D. Performed By: #### A BG #### Point of Care testing , Basophils/100 WBC (Bld) 0.6 % Normal . [facility] Comment on above: Performed By: #### A BG #### Point of Care testing , Eosinophils (Bld) [#/Vol] 0.3 10*3/uL Normal 0.0-0.45 [facility] Comment on above: Performed By: #### A BG #### Point of Care testing , Eosinophils/100 WBC (Bld) 2.2 % Normal . [facility] Comment on above: Performed By: #### A BG #### Point of Care testing , Erythrocyte distribution width (RBC) [Ratio] 14.9 % Normal 11.9-15.3 [facility] Comment on above: Performed By: #### A BG #### Point of Care testing , Hematocrit (Bld) [Volume fraction] 39.3 % Normal 34.0-46.4 [facility] Comment on above: Performed By: #### A BG #### Point of Care testing , Hemoglobin (Bld) [Mass/Vol] 13.3 g/dL Normal 11.8-15.4 [facility] Comment on above: Performed By: #### A BG #### Point of Care testing , Lymphocytes (Bld) [#/Vol] 1.3 10*3/uL Normal 1.00-4.8 [facility] Comment on above: Performed By: #### A BG #### Point of Care testing , Lymphocytes/100 WBC (Bld) 10.4 % Normal . [facility] Comment on above: Performed By: #### A BG #### Point of Care testing , MCH (RBC) [Entitic mass] 31.3 pg Normal 24.7-34.3 [facility] Comment on above: Performed By: #### A BG #### Point of Care testing , MCV (RBC) [Entitic vol] 92.2 fL Normal 80-100 [facility] Comment on above: Performed By: #### A BG #### Point of Care testing , Mean Corpuscular HGB Conc 33.9 g/dL Normal 32.0-35.0 [facility] Comment on above: Performed By: #### A BG #### Point of Care testing , Monocytes (Bld) [#/Vol] 0.4 10*3/uL Normal 0.0-0.8 [facility] Comment on above: Performed By: #### A BG #### Point of Care testing , Monocytes/100 WBC (Bld) 3.7 % Normal . [facility] Comment on above: Performed By: #### A BG #### Point of Care testing , Neutrophils (Bld) [#/Vol] 10.0 10*3/uL High 1.8-7.7 [facility] Comment on above: Performed By: #### A BG #### Point of Care testing , Neutrophils/100 WBC (Bld) 83.1 % Normal . [facility] Comment on above: Performed By: #### A BG #### Point of Care testing , NRBC% 0.3 /100{WBC} Normal 0-0.5 [facility] Comment on above: Performed By: #### A BG #### Point of Care testing , Platelet mean volume (Bld) [Entitic vol] 8.5 fL Normal 6.3-10.7 [facility] Comment on above: Performed By: #### A BG #### Point of Care testing , Platelets (Bld) [#/Vol] 276 10*3/uL Normal 150-450 [facility] Comment on above: Performed By: #### A BG #### Point of Care testing , RBC (Bld) [#/Vol] 4.26 10*6/uL Normal 3.60-5.00 [facility] Comment on above: Performed By: #### A BG #### Point of Care testing , WBC (Bld) [#/Vol] 12.0 10*3/uL High 3.8-11.6 [facility] Comment on above: Performed By: #### A BG #### Point of Care testing , Laboratory - CoagulationOrde red By: Boni Lincoln on 09-15-2022 PT Coag (PPP) [Time] 10.8 s 9.0-12.9 [facility] Platelet poor plasma interna tional normalized ratio (INR) by coagulation assay (relatOrdered By: Boni Lincoln on 09-15-2022 INR Coag (PPP) [Relative time] 0.9 {INR} [facility] Comment on above: INR Therapeutic Rang [...] 3 Potassium [Moles/Vol] 4.6 mmol/L Normal 3.5-5.1 [facility] Comment on above: Result Comment: PERF ORMED BY: [place] [address] PATHOLOGIST SHIFT MGR PETER RAYO M.D. Performed By: #### R EDRAW NA, REDRAW K #### [facility] [address] [place] [address] Redraw Sodiumon 09-15-2022 Sodium [Moles/Vol] 141 mmol/L Normal 136-145 [facility] Comment on above: Performed By: #### R EDRAW NA, REDRAW K #### [facility] [address] [place] [address] XR cervical spine 1Von 09-15 XR cervical spine 1V [facility] [place] [address] XRay Report Signed Patient: Miriam German MR#: [id number] : 1955 Acct:[id number] Age/Sex: 67 / F ADM Date: 09/10/22 Loc: Room: [address] [place] [address] Type: ADM IN Attending Dr: Arnaud Max [...] Jr., DJose Eduardo09/15/2022 12:18 PM Dictation Location: [facility]--12 Transcribed By: [facility] 09/15/221217 Dictated By: Tom Coates Jr, DO 09/15/221217 Signed By: 09/15/22 121 [facility] Basic Metabolic Panelon 08-22 Anion gap [Moles/Vol] 10.4 mmol/L Normal 6.0-15.0 [facility] Comment on above: Performed By: #### C BC, BMP #### [facility] [address] Calcium [Mass/Vol] 10.0 mg/dL Normal 8.6-10.3 [facility] Comment on above: Performed By: #### C BC, BMP #### [facility] [address] Chloride [Moles/Vol] 103 mmol/L Normal 98-107 [facility] Comment on above: Performed By: #### C BC, BMP #### [facility] [address] [place] [id number] [place] CO2 [Moles/Vol] 31.3 mmol/L High 21.0-31.0 [facility] Comment on above: Performed By: #### C BC, BMP #### [facility] [address] [place] [id number] [place] Creatinine [Mass/Vol] 0.61 mg/dL Normal 0.60-1.20 [facility] Comment on above: Performed By: #### C BC, BMP #### [facility] [address] [place] [id number] [place] Creatinine Clr Calc Pharmacy 74.65 [facility] Comment on above: Result Comment: PERF ORMED BY: [place] [address] PATHOLOGIST SHIFT MGR PETER RAYO M.D. Performed By: #### C BC, BMP #### [place] [address] [place] GFR/1.73 sq M.predicted MDRD (S/P/Bld) [Vol rate/Area] mL/min/{1.73_m2} [facility] Comment on above: Performed By: #### C BC, BMP #### [address] Glucose [Mass/Vol] 126 mg/dL High 70-100 [facility] Comment on above: Result Comment: [facility] Glucose Reference Range is dependent on time and content of last meal. Glucose of more than 200 mg/dL in a nonstressed, ambulatory subject supports the diagnosis of Diabetes Mellitus. ADA recommended reference range Performed By: #### C BC, BMP #### [address] Potassium [Moles/Vol] 4.7 mmol/L Normal 3.5-5.1 [facility] Comment on above: Performed By: #### C BC, BMP #### [place] [address] [place] Sodium [Moles/Vol] 140 mmol/L Normal 136-145 [facility] Comment on above: Performed By: #### C BC, BMP #### [place] [address] [place] Urea nitrogen [Mass/Vol] 20 mg/dL Normal 7-25 [facility] Comment on above: Performed By: #### C BC, BMP #### [address] Complete Blood Count Auto Di ffon 09-14-2022 Basophils (Bld) [#/Vol] 0.0 10*3/uL Normal 0.0-0.2 [facility] Comment on above: Result Comment: PERF ORMED BY: [place] [address] PATHOLOGIST SHIFT MGR PETER RAYO M.D. Performed By: #### C BC, BMP #### [address] Basophils/100 WBC (Bld) 0.3 % Normal . [facility] Comment on above: Performed By: #### C BC, BMP #### [address] Eosinophils (Bld) [#/Vol] 0.0 10*3/uL Normal 0.0-0.45 [facility] Comment on above: Performed By: #### C COCO, BMP #### [address] Eosinophils/100 WBC (Bld) 0.3 % Normal . [facility] Comment on above: Performed By: #### C BC, BMP #### [address] Erythrocyte distribution width (RBC) [Ratio] 14.9 % Normal 11.9-15.3 [facility] Comment on above: Performed By: #### C BC, BMP #### [address] Hematocrit (Bld) [Volume fraction] 39.2 % Normal 34.0-46.4 [facility] Comment on above: Performed By: #### C BC, BMP #### [address] Hemoglobin (Bld) [Mass/Vol] 13.0 g/dL Normal 11.8-15.4 [facility] Comment on above: Performed By: #### C BC, BMP #### [address] Lymphocytes (Bld) [#/Vol] 0.9 10*3/uL Low 1.00-4.8 [facility] Comment on above: Performed By: #### C BC, BMP #### [place] [address] [place] Lymphocytes/100 WBC (Bld) 7.8 % Normal . [facility] Comment on above: Performed By: #### C BC, BMP #### [facility] [address] MCH (RBC) [Entitic mass] 30.8 pg Normal 24.7-34.3 [facility] Comment on above: Performed By: #### C BC, BMP #### [facility] [address] MCV (RBC) [Entitic vol] 92.9 fL Normal 80-100 [facility] Comment on above: Performed By: #### C BC, BMP #### [address] Mean Corpuscular HGB Conc 33.2 g/dL Normal 32.0-35.0 [facility] Comment on above: Performed By: #### C BC, BMP #### [address] Monocytes (Bld) [#/Vol] 0.5 10*3/uL Normal 0.0-0.8 [facility] Comment on above: Performed By: #### C BC, BMP #### [place] [address] [place] Monocytes/100 WBC (Bld) 4.4 % Normal . [facility] Comment on above: Performed By: #### C BC, BMP #### [place] [address] [place] Neutrophils (Bld) [#/Vol] 9.7 10*3/uL High 1.8-7.7 [facility] Comment on above: Performed By: #### C BC, BMP #### [address] Neutrophils/100 WBC (Bld) 87.2 % Normal . [facility] Comment on above: Performed By: #### C BC, BMP #### [address] NRBC% 0.0 /100{WBC} Normal 0-0.5 [facility] Comment on above: Performed By: #### C COCO, BMP #### [facility] [address] Platelet mean volume (Bld) [Entitic vol] 7.8 fL Normal 6.3-10.7 [facility] Comment on above: Performed By: #### C COCO, BMP #### [facility] [address] Platelets (Bld) [#/Vol] 239 10*3/uL Normal 150-450 [facility] Comment on above: Performed By: #### C COCO, BMP #### [address] RBC (Bld) [#/Vol] 4.22 10*6/uL Normal 3.60-5.00 [facility] Comment on above: Performed By: #### C COCO, BMP #### [address] WBC (Bld) [#/Vol] 11.1 10*3/uL Normal 3.8-11.6 [facility] Comment on above: Performed By: #### C COCO, BMP #### [address] Basic Metabolic Panelon 08-22 Anion gap [Moles/Vol] 11.0 mmol/L Normal 6.0-15.0 [facility] Comment on above: Performed By: #### GABINO BENOIT K #### [address] Calcium [Mass/Vol] 10.3 mg/dL Normal 8.6-10.3 [facility] Comment on above: Performed By: #### GABINO BENOIT K #### [address] Chloride [Moles/Vol] 101 mmol/L Normal 98-107 [facility] Comment on above: Performed By: #### GABINO BENOIT K #### [address] CO2 [Moles/Vol] 31.4 mmol/L High 21.0-31.0 [facility] Comment on above: Performed By: #### GABINO BENOIT #### [address] Creatinine [Mass/Vol] 0.46 mg/dL Low 0.60-1.20 [facility] Comment on above: Performed By: #### GABINO BENOIT #### [address] Creatinine Clr Calc Pharmacy 74.65 [facility] Comment on above: Result Comment: PERF ORMED BY: [place] [address] PATHOLOGIST SHIFT MGR PETER RAYO M.D. Performed By: #### GABINO BENOIT #### [address] GFR/1.73 sq M.predicted MDRD (S/P/Bld) [Vol rate/Area] mL/min/{1.73_m2} [facility] Comment on above: Performed By: #### GABINO BENOIT #### [address] Glucose [Mass/Vol] 100 mg/dL Normal 70-100 [facility] Comment on above: Result Comment: [place] Glucose Reference Range is dependent on time and content of last meal. Glucose of more than 200 mg/dL in a nonstressed, ambulatory subject supports the diagnosis of Diabetes Mellitus. ADA recommended reference range Performed By: #### GABINO BENOIT #### [address] Potassium [Moles/Vol] 4.4 mmol/L Normal 3.5-5.1 [facility] Comment on above: Performed By: #### GABINO BENOIT #### [address] [place] [address] [place] Sodium [Moles/Vol] 139 mmol/L Normal 136-145 [facility] Comment on above: Performed By: #### GABINO BENOIT #### [facility] [address] [place] [address] Urea nitrogen [Mass/Vol] 15 mg/dL Normal 7-25 [facility] Comment on above: Performed By: #### GABINO BENOIT #### [address] Complete Blood Count Auto Di ffon 09-13-2022 Basophils (Bld) [#/Vol] 0.0 10*3/uL Normal 0.0-0.2 [facility] Comment on above: Result Comment: PERF ORMED BY: [place] [address] PATHOLOGIST SHIFT MGR PETER RAYO M.D. Performed By: #### GABINO BENOIT #### [address] Basophils/100 WBC (Bld) 0.4 % Normal . [facility] Comment on above: Performed By: #### GABINO BENOIT #### [address] Eosinophils (Bld) [#/Vol] 0.0 10*3/uL Normal 0.0-0.45 [facility] Comment on above: Performed By: #### GABINO BENOIT #### [facility] [address] [place] [address] Eosinophils/100 WBC (Bld) 0.3 % Normal . [facility] Comment on above: Performed By: #### GABINO BENOIT #### [address] Erythrocyte distribution width (RBC) [Ratio] 14.7 % Normal 11.9-15.3 [facility] Comment on above: Performed By: #### GABINO BENOIT #### [address] Hematocrit (Bld) [Volume fraction] 38.6 % Normal 34.0-46.4 [facility] Comment on above: Performed By: #### GABINO BENOIT #### [address] Hemoglobin (Bld) [Mass/Vol] 13.0 g/dL Normal 11.8-15.4 [facility] Comment on above: Performed By: #### GABINO BENOIT #### [address] Lymphocytes (Bld) [#/Vol] 1.2 10*3/uL Normal 1.00-4.8 [facility] Comment on above: Performed By: #### GABINO BENOIT #### [address] Lymphocytes/100 WBC (Bld) 10.8 % Normal . [facility] Comment on above: Performed By: #### GABINO BENOIT #### [address] MCH (RBC) [Entitic mass] 31.2 pg Normal 24.7-34.3 [facility] Comment on above: Performed By: #### GABINO BENOIT #### [address] MCV (RBC) [Entitic vol] 92.6 fL Normal 80-100 [facility] Comment on above: Performed By: #### GABINO BENOIT #### [address] Mean Corpuscular HGB Conc 33.7 g/dL Normal 32.0-35.0 [facility] Comment on above: Performed By: #### GABINO BENOIT #### [place] [id number] [place] Monocytes (Bld) [#/Vol] 0.6 10*3/uL Normal 0.0-0.8 [facility] Comment on above: Performed By: #### GABINO BENOIT #### [facility] [address] [place] [address] Monocytes/100 WBC (Bld) 5.6 % Normal . [facility] Comment on above: Performed By: #### GABINO BENOIT #### [facility] [address] [place] [address] Neutrophils (Bld) [#/Vol] 9.2 10*3/uL High 1.8-7.7 [facility] Comment on above: Performed By: #### GABINO BENOIT #### [facility] [address] [place] [address] Neutrophils/100 WBC (Bld) 82.9 % Normal . [facility] Comment on above: Performed By: #### GABINO BENOIT #### [facility] [address] [place] [address] NRBC% 0.1 /100{WBC} Normal 0-0.5 [facility] Comment on above: Performed By: #### GABINO BENOIT #### [facility] [address] [place] [address] Platelet mean volume (Bld) [Entitic vol] 7.5 fL Normal 6.3-10.7 [facility] Comment on above: Performed By: #### GABINO BENOIT #### [facility] [address] [place] [address] [place] Platelets (Bld) [#/Vol] 234 10*3/uL Normal 150-450 [facility] Comment on above: Performed By: #### GABINO BENOIT #### [facility] [address] [place] [address] [place] RBC (Bld) [#/Vol] 4.18 10*6/uL Normal 3.60-5.00 [facility] Comment on above: Performed By: #### R GABINO EPPERSON #### [address] WBC (Bld) [#/Vol] 11.1 10*3/uL Normal 3.8-11.6 [facility] Comment on above: Performed By: #### R GABINO EPPERSON #### [address] ABO/Rh Retypeon 09-12-2022 ABO/RH Recheck Result Positive Normal [facility] Comment on above: Result Comment: PERF ORMED BY: [place] [address] PATHOLOGIST SHIFT MGR PETER RAYO M.D. Arterial Blood Gason 023 ABG Base Excess 3.6 mmol/L High -3.0-3.0 [facility] Comment on above: Performed By: #### A BG #### Point of Care testing , ABG Frac Inspired O2 32 % Normal [facility] Comment on above: Performed By: #### A BG #### Point of Care testing , ABG Oxygen Content 8.4 mmol/L Normal 6.6-9.7 [facility] Comment on above: Performed By: #### A BG #### Point of Care testing , ABG Oxygen Saturation 98.5 % Normal 95.0-100.0 [facility] Comment on above: Performed By: #### A BG #### Point of Care testing , ABG PCO2 50.6 mm[Hg] Off scale high 35.0-45.0 [facility] Comment on above: Performed By: #### A BG #### Point of Care testing , ABG PH 7.39 Normal 7.35-7.45 [facility] Comment on above: Performed By: #### A BG #### Point of Care testing , ABG PO2 129.8 mm[Hg] Off scale high 80.0-100.0 [facility] Comment on above: Performed By: #### A BG #### Point of Care testing , CO2 [Moles/Vol] 31.2 mmol/L High 23.0-27.0 [facility] Comment on above: Performed By: #### A BG #### Point of Care testing , HCO3 (Bld) [Moles/Vol] 29.6 mmol/L High 23.0-29.0 [facility] Comment on above: Performed By: #### A BG #### Point of Care testing , Oxygen Device Nasal Cannula Normal [facility] Comment on above: Performed By: #### A BG #### Point of Care testing , Respiratory Critical Normal [facility] Comment on above: Result Comment: Crit ical Value called on: 09/12/2022 at 05:34 PERFORMED BY: [place] [address] PATHOLOGIST SHIFT MGR PETER RAYO M.D. Performed By: #### A BG #### Point of Care testing , VBG Draw Site Left Radial Normal [facility] Comment on above: Performed By: #### A BG #### Point of Care testing , Basic Metabolic Panelon 08-22 Anion gap [Moles/Vol] 9.7 mmol/L Normal 6.0-15.0 [facility] Comment on above: Performed By: #### B MP, CBC #### [facility] [address] [place] [address] [place] Calcium [Mass/Vol] 10.0 mg/dL Normal 8.6-10.3 [facility] Comment on above: Performed By: #### B MP, CBC #### [facility] [address] [place] [address] [place] Chloride [Moles/Vol] 101 mmol/L Normal 98-107 [facility] Comment on above: Performed By: #### B MP, CBC #### [facility] [address] [place] [address] [place] CO2 [Moles/Vol] 33.2 mmol/L High 21.0-31.0 [facility] Comment on above: Performed By: #### B MP, CBC #### [facility] [address] [place] [address] [place] Creatinine [Mass/Vol] 0.46 mg/dL Low 0.60-1.20 [facility] Comment on above: Performed By: #### B MP, CBC #### [facility] [address] [place] [address] [place] Creatinine Clr Calc Pharmacy 72.70 [facility] Comment on above: Result Comment: PERF ORMED BY: [facility] [address] [place] [address] PATHOLOGIST SHIFT MGR PETER RAYO M.D. Performed By: #### B MP, CBC #### [place] [address] [place] GFR/1.73 sq M.predicted MDRD (S/P/Bld) [Vol rate/Area] mL/min/{1.73_m2} [facility] Comment on above: Performed By: #### B MP, CBC #### [place] [address] [place] Glucose [Mass/Vol] 119 mg/dL High 70-100 [facility] Comment on above: Result Comment: [facility] Glucose Reference Range is dependent on time and content of last meal. Glucose of more than 200 mg/dL in a nonstressed, ambulatory subject supports the diagnosis of Diabetes Mellitus. ADA recommended reference range Performed By: #### B MP, CBC #### [facility] [address] [place] [address] [place] Potassium [Moles/Vol] 4.9 mmol/L Normal 3.5-5.1 [facility] Comment on above: Performed By: #### B MP, CBC #### [facility] [address] [place] [address] [place] Sodium [Moles/Vol] 139 mmol/L Normal 136-145 [facility] Comment on above: Performed By: #### B MP, CBC #### [place] [address] [place] Urea nitrogen [Mass/Vol] 17 mg/dL Normal 7-25 [facility] Comment on above: Performed By: #### B MP, CBC #### [address] Complete Blood Count Auto Di ffon 09-12-2022 Basophils (Bld) [#/Vol] 0.1 10*3/uL Normal 0.0-0.2 [facility] Comment on above: Result Comment: PERF ORMED BY: [place] [address] PATHOLOGIST SHIFT MGR PETER RAYO M.D. Performed By: #### B MP, CBC #### [address] Basophils/100 WBC (Bld) 0.5 % Normal . [facility] Comment on above: Performed By: #### B MP, CBC #### [address] Eosinophils (Bld) [#/Vol] 0.0 10*3/uL Normal 0.0-0.45 [facility] Comment on above: Performed By: #### B MP, CBC #### [address] Eosinophils/100 WBC (Bld) 0.2 % Normal . [facility] Comment on above: Performed By: #### B MP, CBC #### [address] Erythrocyte distribution width (RBC) [Ratio] 14.5 % Normal 11.9-15.3 [facility] Comment on above: Performed By: #### B MP, CBC #### [address] Hematocrit (Bld) [Volume fraction] 39.2 % Normal 34.0-46.4 [facility] Comment on above: Performed By: #### B MP, CBC #### [address] Hemoglobin (Bld) [Mass/Vol] 13.1 g/dL Normal 11.8-15.4 [facility] Comment on above: Performed By: #### B MP, CBC #### [facility] [address] [place] [address] [place] Lymphocytes (Bld) [#/Vol] 1.0 10*3/uL Normal 1.00-4.8 [facility] Comment on above: Performed By: #### B MP, CBC #### [facility] [address] Lymphocytes/100 WBC (Bld) 8.0 % Normal . [facility] Comment on above: Performed By: #### B MP, CBC #### [facility] [address] MCH (RBC) [Entitic mass] 30.8 pg Normal 24.7-34.3 [facility] Comment on above: Performed By: #### B MP, CBC #### [facility] [address] MCV (RBC) [Entitic vol] 92.3 fL Normal 80-100 [facility] Comment on above: Performed By: #### B MP, CBC #### [facility] [address] Mean Corpuscular HGB Conc 33.3 g/dL Normal 32.0-35.0 [facility] Comment on above: Performed By: #### B MP, CBC #### [facility] [address] [place] [address] [place] Monocytes (Bld) [#/Vol] 0.6 10*3/uL Normal 0.0-0.8 [facility] Comment on above: Performed By: #### B MP, CBC #### [facility] [address] [place] [address] [place] Monocytes/100 WBC (Bld) 4.8 % Normal . [facility] Comment on above: Performed By: #### B MP, CBC #### [facility] [address] Neutrophils (Bld) [#/Vol] 10.3 10*3/uL High 1.8-7.7 [facility] Comment on above: Performed By: #### B MP, CBC #### [address] Neutrophils/100 WBC (Bld) 86.5 % Normal . [facility] Comment on above: Performed By: #### B MP, CBC #### [address] NRBC% 0.0 /100{WBC} Normal 0-0.5 [facility] Comment on above: Performed By: #### B MP, CBC #### [address] Platelet mean volume (Bld) [Entitic vol] 7.5 fL Normal 6.3-10.7 [facility] Comment on above: Performed By: #### B MP, CBC #### [address] Platelets (Bld) [#/Vol] 223 10*3/uL Normal 150-450 [facility] Comment on above: Performed By: #### B MP, CBC #### [address] RBC (Bld) [#/Vol] 4.25 10*6/uL Normal 3.60-5.00 [facility] Comment on above: Performed By: #### B MP, CBC #### [address] WBC (Bld) [#/Vol] 11.9 10*3/uL High 3.8-11.6 [facility] Comment on above: Performed By: #### B MP, CBC #### [address] Laboratory - Chemistry and C hemistry - challengeOrdered By: Boni Lincoln on 09-12-2022 CO2 [Moles/Vol] 31.2 mmol/L 23.0-27.0 [facility] HCO3 (Bld) [Moles/Vol] 29.6 mmol/L 23.0-29.0 [facility] No Panel InformationOrdered By: Boni Lincoln on 09-12-2022 Arterial Blood Base Excess 3.6 mmol/L -3.0-3.0 [facility] Arterial Blood Oxygen Content 8.4 mmol/L 6.6-9.7 [facility] Arterial Blood Oxygen Saturation 98.5 % 95.0-100.0 [facility] Arterial Blood Partial Pressure CO2 50.6 mm[Hg] 35.0-45.0 [facility] Arterial Blood Partial Pressure O2 129.8 mm[Hg] 80.0-100.0 [facility] Arterial Blood pH 7.39 7.35-7.45 [facility] Blood Gas Critical Value See comment [facility] Comment on above: Critical Value bolivar d on: 09/12/2022 at 05:34 Blood Gas Sample Site Left radial [facility] FiO2 32 % [facility] Oxygen Delivery Device Nasal cannula [facility] Type and Screenon 09-12-2022 ABO and Rh group Nom (Bld) Blood group A Rh(D) positive Normal [facility] Comment on above: Result Comment: PERF ORMED BY: [facility] [address] [place] [address] PATHOLOGIST SHIFT MGR PETER RAYO M.D. Basic Metabolic Panelon 08-22 Anion gap [Moles/Vol] 9.2 mmol/L Normal 6.0-15.0 [facility] Comment on above: Performed By: #### A BG #### Point of Care testing , Calcium [Mass/Vol] 9.9 mg/dL Normal 8.6-10.3 [facility] Comment on above: Performed By: #### A BG #### Point of Care testing , Chloride [Moles/Vol] 103 mmol/L Normal 98-107 [facility] Comment on above: Performed By: #### A BG #### Point of Care testing , CO2 [Moles/Vol] 31.9 mmol/L High 21.0-31.0 [facility] Comment on above: Performed By: #### A BG #### Point of Care testing , Creatinine [Mass/Vol] 0.51 mg/dL Low 0.60-1.20 [facility] Comment on above: Performed By: #### A BG #### Point of Care testing , Creatinine Clr Calc Pharmacy 72.70 [facility] Comment on above: Result Comment: PERF ORMED BY: [facility] [address] [place] [address] PATHOLOGIST SHIFT MGR PETER RAYO M.D. Performed By: #### A BG #### Point of Care testing , GFR/1.73 sq M.predicted MDRD (S/P/Bld) [Vol rate/Area] mL/min/{1.73_m2} [facility] Comment on above: Performed By: #### A BG #### Point of Care testing , Glucose [Mass/Vol] 116 mg/dL High 70-100 [facility] Comment on above: Result Comment: [place] Glucose Reference Range is dependent on time and content of last meal. Glucose of more than 200 mg/dL in a nonstressed, ambulatory subject supports the diagnosis of Diabetes Mellitus. ADA recommended reference range Performed By: #### A BG #### Point of Care testing , Potassium [Moles/Vol] 4.1 mmol/L Normal 3.5-5.1 [facility] Comment on above: Performed By: #### A BG #### Point of Care testing , Sodium [Moles/Vol] 140 mmol/L Normal 136-145 [facility] Comment on above: Performed By: #### A BG #### Point of Care testing , Urea nitrogen [Mass/Vol] 18 mg/dL Normal 7-25 [facility] Comment on above: Performed By: #### A BG #### Point of Care testing , Complete Blood Count Auto Di ffon 09-11-2022 Basophils (Bld) [#/Vol] 0.0 10*3/uL Normal 0.0-0.2 [facility] Comment on above: Result Comment: PERF ORMED BY: [facility] [address] [place] [address] PATHOLOGIST SHIFT MGR PETER RAYO M.D. Performed By: #### A BG #### Point of Care testing , Basophils/100 WBC (Bld) 0.5 % Normal . [facility] Comment on above: Performed By: #### A BG #### Point of Care testing , Eosinophils (Bld) [#/Vol] 0.0 10*3/uL Normal 0.0-0.45 [facility] Comment on above: Performed By: #### A BG #### Point of Care testing , Eosinophils/100 WBC (Bld) 0.0 % Normal . [facility] Comment on above: Performed By: #### A BG #### Point of Care testing , Erythrocyte distribution width (RBC) [Ratio] 14.5 % Normal 11.9-15.3 [facility] Comment on above: Performed By: #### A BG #### Point of Care testing , Hematocrit (Bld) [Volume fraction] 37.6 % Normal 34.0-46.4 [facility] Comment on above: Performed By: #### A BG #### Point of Care testing , Hemoglobin (Bld) [Mass/Vol] 12.7 g/dL Normal 11.8-15.4 [facility] Comment on above: Performed By: #### A BG #### Point of Care testing , Lymphocytes (Bld) [#/Vol] 0.8 10*3/uL Low 1.00-4.8 [facility] Comment on above: Performed By: #### A BG #### Point of Care testing , Lymphocytes/100 WBC (Bld) 7.6 % Normal . [facility] Comment on above: Performed By: #### A BG #### Point of Care testing , MCH (RBC) [Entitic mass] 31.3 pg Normal 24.7-34.3 [facility] Comment on above: Performed By: #### A BG #### Point of Care testing , MCV (RBC) [Entitic vol] 92.5 fL Normal 80-100 [facility] Comment on above: Performed By: #### A BG #### Point of Care testing , Mean Corpuscular HGB Conc 33.9 g/dL Normal 32.0-35.0 [facility] Comment on above: Performed By: #### A BG #### Point of Care testing , Monocytes (Bld) [#/Vol] 0.6 10*3/uL Normal 0.0-0.8 [facility] Comment on above: Performed By: #### A BG #### Point of Care testing , Monocytes/100 WBC (Bld) 5.7 % Normal . [facility] Comment on above: Performed By: #### A BG #### Point of Care testing , Neutrophils (Bld) [#/Vol] 9.4 10*3/uL High 1.8-7.7 [facility] Comment on above: Performed By: #### A BG #### Point of Care testing , Neutrophils/100 WBC (Bld) 86.2 % Normal . [facility] Comment on above: Performed By: #### A BG #### Point of Care testing , NRBC% 0.1 /100{WBC} Normal 0-0.5 [facility] Comment on above: Performed By: #### A BG #### Point of Care testing , Platelet mean volume (Bld) [Entitic vol] 7.5 fL Normal 6.3-10.7 [facility] Comment on above: Performed By: #### A BG #### Point of Care testing , Platelets (Bld) [#/Vol] 221 10*3/uL Normal 150-450 [facility] Comment on above: Performed By: #### A BG #### Point of Care testing , RBC (Bld) [#/Vol] 4.07 10*6/uL Normal 3.60-5.00 [facility] Comment on above: Performed By: #### A BG #### Point of Care testing , WBC (Bld) [#/Vol] 10.9 10*3/uL Normal 3.8-11.6 [facility] Comment on above: Performed By: #### A BG #### Point of Care testing , ECG 12 lead ECGon 09-11-2022 ECG 12 [place] [address] Electrocardiograph Report Signed Patient: Miriam German MR#: [id number] : 1955 Acct:[id number] Age/Sex: 67 / F ADM Date: 09/10/22 Loc: Room: [address] [place] [address] Type: DIS IN Attending Dr: Arnaud Max MD Ordering Provider: Arnaud Mxa MD Date of Service: 09/11/22 ECG/ECG 12 [...] previous ECGs available Confirmed by MACIEL BUSTILLOS [facility], ZEHRA ([id number]) on 09/17/2022 4:54:24 PM Referred By: Electronically Signed By:ZEHRA ST MD [facility] Transcribed By: MUS Signed By Zehra St MD, [facility] 09/17/22 1654 [facility] MR cervical spine wo conon 0 09-11-2022 MR cervical spine wo con [facility] Main [place] [id number] MRI Report Signed Patient: Miriam German MR#: [id number] : 1955 Acct:[id number] Age/Sex: 67 / F ADM Date: 09/10/22 Loc: Room: [address] [place] [address] Type: ADM IN Attending Dr: Boni Lincoln [...] MD 09/11/22 1055 Signed By: 09/11/22 1109 [facility] XR chest 1V portableon 09-11 XR chest 1V portable [facility] Main [place] [address] [place] [address] XRay Report Signed Patient: Miriam German MR#: [id number] : 1955 Acct:[id number] Age/Sex: 67 / F ADM Date: 09/10/22 Loc: Room: [address] [place] [address] Type: ADM IN Attending Dr: Boni Lincoln DO Copies to: Julia Smyth APRN, ACNP-BC Boni Lincoln DO Ordering Provider: Julia Smyth APRN, [facility] Date of Service: 09/11/22 XR/XR chest 1V [...] Coates Jr., D.ONick09/11/2022 4:06 PM Dictation Location: [facility]--15 Transcribed By: BRUNA 09/11/22 1606 Dictated By: Tom Coates Jr, DO 09/11/22 1602 Signed By: 09/11/22 1606 [facility] Progress Noteson 09-06-2022 [employer] Authentication Interface Message Text EMERGENCY TRIAGE, TREAT AND TRANSPORT (ET3) DOCUMENTATION OF TELEHEALTH VISIT Date / Time: 09/05/2022 / 1515 Name: Miriam German : 1955 SSN: [id number] EMS Agency: [facility] [x] Verbal consent obtained [] [...] by: Mumtaz Jean Baptiste, DO Normal [employer] Krista Fowler 08-10-2022 Krista BLAND ----- Final No anaerobic growth after 72 hrs. Normal [facility] Comment on above: Performed By: #### A NAC #### [place] [id number] .BF Cell Cnt RBC Mon 023 Fluid RBC Count 89000 /mcL Normal [facility] Comment on above: Performed By: #### C [id number] #### [place] [id number] .BF Cell Cnt WBC Mon 023 Fluid WBC Count 1025 /mcL Normal [facility] Comment on above: Performed By: #### . Body Fluid Cell Count WBC Manual #### [place] [id number] .BF Diffon 08-07-2022 Fluid Mononuclear Cells 85 % Normal [facility] Comment on above: Performed By: #### . Body Fluid Differential #### [place] [id number] Fluid Other Cells 4 % Normal [facility] Comment on above: Performed By: #### . Body Fluid Differential #### [place] [id number] Fluid Polynuclear Cells 11 % Normal [facility] Comment on above: Performed By: #### . Body Fluid Differential #### [place] [id number] BF Cell Counton 08-07-2022 Body Fluid Cell Cnt Type Misc Fld Normal [facility] Comment on above: Order Comment: RIGHT Shoulder Joint Fluid Performed By: #### F LCC #### [place] [id number] C Sterile BFon 08-07-2022 C Sterile BF RIGHT Shoulder Joint Fluid Final No growth at 48 hours. Gram Stain Few White Blood Cells No organisms seen. Normal [facility] Comment on above: Performed By: #### C SBF #### [facility] ([facility] [address] [place] [address] [facility] [address] [place] [address] Crystalson 08-07-2022 Fluid For Crystal Analysis NoCrystals Seen Normal NoCrystals Seen [facility] Comment on above: Performed By: #### F LCA #### [facility] [address] [place] [address] MRI Shoulder w/o Contrast Ri [facility] 06-19-2022 MRI Shoulder w/o Contrast Right [...] Electronically Signed in Other Vendor System) Normal [facility] CT LUNG CANCER SCREENINGon 0 05-13-2022 [...] ZAN HARRIS Date: 2022-05-13 09:42 Normal [facility] RHEUMATOID FACTORon 05-11-19 23 RA Latex Turbid. >650.0 Critically high <14.0 [facility] Comment on above: Result Comment: Resu lts confirmed on dilution. Performed By: #### P OCGLUC #### [facility] [address] [place] [address] Dr. Laila Castle Basic Metabolic Panelon 04-23 Basic Metabolic Panel [facility] [employer] Other CBC AUTO DIFFon 05-10-2022 BASO # 0.0 103/ul Normal 0.0-0.1 [facility] Comment on above: Performed By: #### C MP #### [facility] [address] [place] [address] Dr. Laila Castle Basophils/100 WBC (Bld) 0.3 % Normal 0.2-2.0 [facility] Comment on above: Performed By: #### C MP #### [facility] [address] [place] [address] Dr. Laila Castle EO # 0.1 103/ul Normal 0.0-0.7 [facility] Comment on above: Performed By: #### C MP #### [facility] [address] [place] [address] Dr. Laila Castle Eosinophils/100 WBC (Bld) 0.5 % Critically low 0.9-7.0 [facility] Comment on above: Performed By: #### C MP #### [facility] [address] [place] [address] Dr. Laila Castle Erythrocyte distribution width (RBC) [Ratio] 14.1 % Normal 11.0-15.0 [facility] Comment on above: Performed By: #### C MP #### [facility] [address] [place] [address] Dr. Laila Castle Hematocrit (Bld) [Volume fraction] 40.9 % Normal 36.0-48.0 [facility] Comment on above: Performed By: #### C MP #### [facility] [address] [place] [address] Dr. Laila Castle Hemoglobin (Bld) [Mass/Vol] 12.8 g/dL Normal 12.0-16.0 [facility] Comment on above: Performed By: #### C MP #### [facility] [address] [place] [address] Dr. Laila Castle IG # 0.11 10e3/ul Critically high 0.00-0.03 [facility] Comment on above: Performed By: #### C MP #### [facility] [address] [place] [address] Dr. Laila Castle IG % 1.2 % Critically high 0.0-0.5 [facility] Comment on above: Performed By: #### C MP #### [facility] [address] [place] [address] Dr. Laila Castle LYMPH # 1.0 103/ul Critically low 1.2-3.[address] [facility] Comment on above: Performed By: #### C MP #### [facility] [address] [place] [address] Dr. Laila Castle Lymphocytes/100 WBC (Bld) 10.0 % Critically low 20.5-60.0 [facility] Comment on above: Performed By: #### C MP #### [facility] [address] [place] [address] Dr. Laila Castle MANUAL DIFF REQ NO Normal [facility] Comment on above: Performed By: #### C MP #### [facility] [address] [place] [address] Dr. Laila Castle MCH (RBC) [Entitic mass] 30.3 pg Normal 26.7-34.0 [facility] Comment on above: Performed By: #### C MP #### [facility] [address] [place] [address] [address] Laila Castle MCHC (RBC) [Mass/Vol] 31.3 g/dL Normal 29.9-35.2 [facility] Comment on above: Performed By: #### C MP #### [facility] [address] [place] [address] [address] Laila Castle MCV (RBC) [Entitic vol] 96.7 fL Normal 81.0-99.0 [facility] Comment on above: Performed By: #### C MP #### [facility] [address] [place] [address] Dr. Laila Castle MONO # 0.6 103/ul Normal 0.3-0.8 [facility] Comment on above: Performed By: #### C MP #### [facility] [address] [place] [address] [address] Laila Castle Monocytes/100 WBC (Bld) 6.5 % Normal 1.7-12.0 [facility] Comment on above: Performed By: #### C MP #### [facility] [address] [place] [address] Dr. Laila Castle NEUT # 7.8 103/ul Critically high 1.4-6.5 [facility] Comment on above: Performed By: #### C MP #### [facility] [address] [place] [address] [address] Laila Castle Neutrophils/100 WBC (Bld) 81.5 % Critically high 43.0-75.0 [facility] Comment on above: Performed By: #### C MP #### [facility] [address] [place] [address] [address] Laila Castle Platelet mean volume (Bld) [Entitic vol] 9.5 fL Normal 9.5-13.5 [facility] Comment on above: Performed By: #### C MP #### [facility] [address] [place] [address] Dr. Laila Castle PLT 217 103/ul Normal 150-450 [facility] Comment on above: Performed By: #### C MP #### [facility] [address] [place] [address] Dr. Laila Castle RBC 4.23 106/ul Normal 4.20-5.40 [facility] Comment on above: Performed By: #### C MP #### [facility] [address] [place] [address] Dr. Laila Castle WBC 9.6 103/ul Normal 4.0-11.0 [facility] Comment on above: Performed By: #### C MP #### [facility] [address] [place] [address] Dr. Laila Castle Complete Blood Count and Dif mandeep 05-10-2022 Anisocytosis Ql (Bld) [facility] [employer] Other Basophilic stippling LM Ql (d) [facility] [employer] Other RBC morphology finding Nom (d) [facility] [employer] Other PROF CHEM 8 (BAS METB)on Anion gap [Moles/Vol] 11.2 mmol/L Normal [facility] Comment on above: Performed By: #### C MP #### [facility] [address] [place] [address] Dr. Laila Castle Calcium [Mass/Vol] 10.3 mg/dL Critically high 8.5-10.1 [facility] Comment on above: Performed By: #### C MP #### [facility] [address] [place] [address] Dr. Laila Castle Chloride [Moles/Vol] 106 mmol/L Normal 98-107 [facility] Comment on above: Performed By: #### C MP #### [facility] [address] [place] [address] Dr. Laila Castle CO2 [Moles/Vol] 31.2 mmol/L Normal 21.0-32.0 [facility] Comment on above: Performed By: #### C MP #### [facility] [address] [place] [address] [address] Laila Castle Creatinine [Mass/Vol] 0.59 mg/dL Normal 0.55-1.02 [facility] Comment on above: Performed By: #### C MP #### [facility] [address] [place] [address] [address] Laila Castle EGFR-AF BAHAMIAN >60 Normal >=60 [facility] Comment on above: Performed By: #### C MP #### [facility] [address] [place] [address] [address] Laila Castle EGFR-NON AF BAHAMIAN >60 Normal >=60 [facility] Comment on above: Performed By: #### C MP #### [facility] [address] [place] [address] [address] Laila Castle Glucose [Mass/Vol] 90 mg/dL Normal 74-106 [facility] Comment on above: Performed By: #### C MP #### [facility] [address] [place] [address] [address] Laila Castle Potassium [Moles/Vol] 4.4 mmol/L Normal 3.5-5.1 [facility] Comment on above: Performed By: #### C MP #### [facility] [address] [place] [address] [address] Laila Castle Sodium [Moles/Vol] 144 mmol/L Normal 136-145 [facility] Comment on above: Performed By: #### C MP #### [facility] [address] [place] [address] [address] Laila Castle Urea nitrogen [Mass/Vol] 12.0 mg/dL Normal 7.0-18.0 [facility] Comment on above: Performed By: #### C MP #### [facility] [address] [place] [address] Dr. Laila Castle Urea nitrogen/Creatinine [Mass ratio] 20.3 mg/mg Normal [facility] Comment on above: Performed By: #### C MP #### [facility] [address] [place] [address] [address] Laila Castle [facility] SED RATE 42 mm/hr Critically high <=30 [facility] Comment on above: Performed By: #### C MP #### [facility] [address] [place] [address] [address] Laila Castle TSHon 05-10-2022 TSH 0.528 uIU/mL Normal 0.358-3.[address] [facility] Comment on above: Performed By: #### C MP #### [facility] [address] [place] [address] [address] Laila Castle VITAMIN D 25 OHon 05-10-2022 VIT D 25-OH 66.2 ng/mL Normal [facility] Comment on above: Performed By: #### V ITAD #### [facility] [address] [place] [address] [address] Laila Castle VIT D RANGES SEE BELOW Normal [facility] Comment on above: Result Comment: <20 ng/mL Vit D deficient 20 - <30 ng/mL Vit D insufficient 30 - 100 ng/mL Vit D sufficient >100 ng/mL Potential Toxicity Performed By: #### V ITAD #### [facility] [address] [place] [address] [address] Laila Castle C-Reactive Proteinon 023 CRP [Mass/Vol] 4.7 mg/L Normal 0.0-5.0 [facility] Comment on above: Performed By: #### C RP, CDP, SED #### [facility] [place] [address] Printing Equipment Mechanic: Chriss Townsend MD CRP High sensitivity method [Mass/Vol] 4.7 mg/L 0.0 - 5.0 mg/L [facility]60mo CBC with Auto Differentialon 05-08-2022 Absolute Eos # [facility] [employer] [employer] [place] Absolute Immature Granulocyte 0.12 [facility] Absolute Lymph # 1.23 [facility] [employer] Absolute [place] # 0.62 [facility] [employer] Basophils (Bld) [#/Vol] 0.03 10*3/uL [facility] [employer] Basophils/100 WBC (Bld) 0 % 0 - 2 % [facility] Eosinophils/100 WBC (Bld) 0 % Low 1 - 4 % [facility] Hematocrit (Bld) [Volume fraction] 44.0 % 36.3 - 47.1 % [facility] Hemoglobin (Bld) [Mass/Vol] 13.6 g/dL 11.9 - 15.1 g/dL [facility] Immature granulocytes/100 WBC (Bld) 1 % High 0 [facility] Interpretation and review of laboratory results Abnormal [facility] Lymphocytes/100 WBC (Bld) 11 % Low 24 - 43 % [facility] MCH (RBC) [Entitic mass] 30.6 pg 25.2 - 33.5 pg [facility] MCHC (RBC) [Mass/Vol] 30.9 g/dL 28.4 - 34.8 g/dL [facility] MCV (RBC) [Entitic vol] 98.9 fL 82.6 - 102.9 fL [facility] Monocytes/100 WBC (Bld) 6 % 3 - 12 % [facility] NRBC Automated 0.0 0.0 per 100 WBC [facility] Platelet distribution width (Bld) [Ratio] 14.2 % 11.8 - 14.4 % [facility] Platelet mean volume (Bld) [Entitic vol] 9.5 fL 8.1 - 13.5 fL [facility] Platelets (Bld) [#/Vol] 231 10*3/uL [facility] RBC (Bld) [#/Vol] 4.45 10*6/uL 3.95 - 5.1 1 m/uL [facility] Segmented neutrophils/100 WBC (Bld) 82 % High 36 - 65 % [facility] Segs Absolute 9.31 High [facility] WBC (Bld) [#/Vol] 11.3 10*3/uL [facility] CBC with Diffon 05-08-2022 Abs. Basophil 0.03 k/uL Normal 0.00-0.20 [facility] Comment on above: Performed By: #### C RP, CDP, SED #### [address] [id number] [employer]ing Equipment Mechanic: Chriss Townsend MD Abs. Eosinophil <0.03 Normal 0.00-0.44 [facility] Comment on above: Performed By: #### C RP, CDP, SED #### [facility] [employer] [address] [place] [id number] [employer]ing Equipment Mechanic: Chriss Townsend MD Abs.Imm.Granulocyte 0.12 k/uL Normal 0.00-0.30 [facility] Comment on above: Performed By: #### C RP, CDP, SED #### [facility] [employer] [address] [place] [id number] [employer] Mechanic: Chriss Townsend MD Abs.Neutrophil (Seg) 9.31 k/uL High 1.50-8.10 [facility] Comment on above: Performed By: #### C RP, CDP, SED #### [facility] [employer] [address] [place] [phone] [employer]ic: Chriss Townsend MD Basophils/100 WBC (Bld) 0 % Normal 0-2 [facility] Comment on above: Performed By: #### C RP, CDP, SED #### [facility] [employer] [address] [place] [id number] [employer] Mechanic: Chriss Townsend MD Eosinophils/100 WBC (Bld) 0 % Low 1-4 [facility] Comment on above: Performed By: #### C RP, CDP, SED #### [facility] [employer] [address] [place] [phone] [employer] Mechanic: Chriss Townsend MD Erythrocyte distribution width (RBC) [Ratio] 14.2 % Normal 11.8-14.4 [facility] Comment on above: Performed By: #### C RP, CDP, SED #### [facility] [employer] [address] [place] [phone] [employer] Mechanic: Chriss Townsend MD Hematocrit (Bld) [Volume fraction] 44.0 % Normal 36.3-47.1 [facility] Comment on above: Performed By: #### C RP, CDP, SED #### [address] [id number] [employer]ing Equipment Mechanic: Chriss Townsend MD Hemoglobin (Bld) [Mass/Vol] 13.6 g/dL Normal 11.9-15.1 [facility] Comment on above: Performed By: #### C RP, CDP, SED #### [address] [address] [employer] Mechanic: Chriss Townsend MD Immature granulocytes/100 WBC (Bld) 1 % High 0 [facility] Comment on above: Performed By: #### C RP, CDP, SED #### [address] [id number] [employer] Equipment Mechanic: Chriss Townsend MD Lymphocytes (Bld) [#/Vol] 1.23 10*3/uL Normal 1.10-3.70 [facility] Comment on above: Performed By: #### C RP, CDP, SED #### [address] [phone] [employer]ing [employer] Mechanic: Chriss Townsend MD Lymphocytes/100 WBC (Bld) 11 % Low 24-43 [facility] Comment on above: Performed By: #### C RP, CDP, SED #### [facility] [employer] [address] [place] [phone] [employer]ing Equipment Mechanic: Chriss Townsend MD MCH (RBC) [Entitic mass] 30.6 pg Normal 25.2-33.5 [facility] Comment on above: Performed By: #### C RP, CDP, SED #### [facility] [employer] [address] [place] [phone] [employer] Mechanic: Chriss Townsend MD MCHC (RBC) [Mass/Vol] 30.9 g/dL Normal 28.4-34.8 [facility] Comment on above: Performed By: #### C RP, CDP, SED #### [address] [phone] [employer]ing Equipment Mechanic: Chriss Townsend MD MCV (RBC) [Entitic vol] 98.9 fL Normal 82.6-102.9 [facility] Comment on above: Performed By: #### C RP, CDP, SED #### [address] [phone] [employer]ing Equipment Mechanic: Chriss Townsend MD Monocytes (Bld) [#/Vol] 0.62 10*3/uL Normal 0.10-1.20 [facility] Comment on above: Performed By: #### C RP, CDP, SED #### [place] [address] [employer]ing Equipment Mechanic: Chriss Townsend MD Monocytes/100 WBC (Bld) 6 % Normal 3-12 [facility] Comment on above: Performed By: #### C RP, CDP, SED #### [address] [phone] [employer]ing Equipment Mechanic: Chriss Townsend MD Neutrophil (Seg) 82 % High 36-65 [facility] Comment on above: Performed By: #### C RP, CDP, SED #### [place] [address] [employer]ing Equipment Mechanic: Chriss Townsend MD NRBC Automated 0.0 per 100 WBC Normal 0.0 [facility] Comment on above: Performed By: #### C RP, CDP, SED #### [address] [phone] [employer]ing Equipment Mechanic: Chriss Townsend MD Platelet mean volume (Bld) [Entitic vol] 9.5 fL Normal 8.1-13.5 [facility] Comment on above: Performed By: #### C RP, CDP, SED #### [facility] [address] [place] [phone] [employer]ing Equipment Mechanic: Chriss Townsend MD Platelets (Bld) [#/Vol] 231 10*3/uL Normal 138-453 [facility] Comment on above: Performed By: #### C RP, CDP, SED #### [facility] [address] [place] [address] [employer]ing Equipment Mechanic: Chriss Townsend MD RBC (Bld) [#/Vol] 4.45 10*6/uL Normal 3.95-5.11 [facility] Comment on above: Performed By: #### C RP, CDP, SED #### [facility] [employer] [address] [place] [phone] [employer]ing Equipment Mechanic: Chriss Townsend MD WBC (Bld) [#/Vol] 11.3 10*3/uL Normal 3.5-11.3 [facility] Comment on above: Performed By: #### C RP, CDP, SED #### [facility] [employer] [address] [place] [address] [employer]ing Equipment Mechanic: Chriss Townsend MD Sedimentation Rateon 023 Sedimentation Rate 18 mm/Hr Normal 0-30 [facility] Comment on above: Performed By: #### C RP, CDP, SED #### [facility] [employer] [address] [place] [phone] [employer]ing Equipment Mechanic: Chriss Townsend MD ESR (Bld) [Velocity] 18 mm/h [facility] [facility] Tele[facility] En[facility] 2021 [employer] Authentication Interface Message Text Most recent visit [...] for TST-PPD, intradermal (PPD) (CVX=96) Normal [employer] CBC AUTO DIFFon 11-12-2021 BASO # 0.0 103/ul Normal 0.0-0.1 [facility] Comment on above: Performed By: #### C BC #### [facility] [address] [place] [address] Dr. Laila Castle Basophils/100 WBC (Bld) 0.4 % Normal 0.2-2.0 [facility] Comment on above: Performed By: #### C BC #### [facility] [address] [place] [address] Dr. Laila Castle EO # 0.0 103/ul Normal 0.0-0.7 [facility] Comment on above: Performed By: #### C BC #### [facility] [address] [address] [address] Laila Castle Eosinophils/100 WBC (Bld) 0.0 % Critically low 0.9-7.0 [facility] Comment on above: Performed By: #### C BC #### [facility] [address] [place] [address] Dr. Laila Castle Erythrocyte distribution width (RBC) [Ratio] 14.6 % Normal 11.0-15.0 [facility] Comment on above: Performed By: #### C BC #### [facility] [address] [place] [address] Dr. Laila Castle Hematocrit (Bld) [Volume fraction] 40.3 % Normal 36.0-48.0 [facility] Comment on above: Performed By: #### C BC #### [facility] [address] [address] [address] Laila Castle Hemoglobin (Bld) [Mass/Vol] 12.5 g/dL Normal 12.0-16.0 [facility] Comment on above: Performed By: #### C BC #### [facility] [address] [address] [address] Laila Castle IG # 0.24 10e3/ul Critically high 0.00-0.03 [facility] Comment on above: Performed By: #### C BC #### [facility] [address] [address] [address] Laila Castle IG % 2.2 % Critically high 0.0-0.5 [facility] Comment on above: Performed By: #### C BC #### [facility] [address] [address] [address] Laila Castle LYMPH # 0.9 103/ul Critically low 1.2-3.[address] [facility] Comment on above: Performed By: #### C BC #### [facility] [address] [address] [address] Laila Castle Lymphocytes/100 WBC (Bld) 7.8 % Critically low 20.5-60.0 [facility] Comment on above: Performed By: #### C BC #### [facility] [address] [address] [address] Laila Castle MANUAL DIFF REQ NO Normal [facility] Comment on above: Performed By: #### C BC #### [facility] [address] [address] [address] Laila Castle MCH (RBC) [Entitic mass] 28.7 pg Normal 26.7-34.0 [facility] Comment on above: Performed By: #### C BC #### [facility] [address] [address] [address] Laila Castle MCHC (RBC) [Mass/Vol] 31.0 g/dL Normal 29.9-35.2 [facility] Comment on above: Performed By: #### C BC #### [facility] [address] [address] [address] Laila Castle MCV (RBC) [Entitic vol] 92.4 fL Normal 81.0-99.0 [facility] Comment on above: Performed By: #### C BC #### [facility] [address] [address] [address] Laila Castle MONO # 0.7 103/ul Normal 0.3-0.8 [facility] Comment on above: Performed By: #### C BC #### [facility] [address] [place] [address] Dr. Laila Castle Monocytes/100 WBC (Bld) 6.4 % Normal 1.7-12.0 [facility] Comment on above: Performed By: #### C BC #### [facility] [address] [place] [address] Dr. Laila Castle NEUT # 9.2 103/ul Critically high 1.4-6.5 [facility] Comment on above: Performed By: #### C BC #### [facility] [address] [place] [address] Dr. Laila Castle Neutrophils/100 WBC (Bld) 83.2 % Critically high 43.0-75.0 [facility] Comment on above: Performed By: #### C BC #### [facility] [address] [place] [address] Dr. Laila Castle Platelet mean volume (Bld) [Entitic vol] 9.0 fL Critically low 9.5-13.5 [facility] Comment on above: Performed By: #### C BC #### [facility] [address] [place] [address] Dr. Laila Castle PLT 250 103/ul Normal 150-450 [facility] Comment on above: Performed By: #### C BC #### [facility] [address] [place] [address] Dr. Laila Castle RBC 4.36 106/ul Normal 4.20-5.40 [facility] Comment on above: Performed By: #### C BC #### [facility] [address] [place] [address] Dr. Laila Castle WBC 11.1 103/ul Critically high 4.0-11.0 [facility] Comment on above: Performed By: #### C BC #### [facility] [address] [place] [address] Dr. Laila Castle POINT OF CARE GLUCOSEon 10-22 Glucose [Mass/Vol] 116 mg/dL Critically high 74-106 [facility] Comment on above: Performed By: #### P OCGLUC #### [facility] [address] [place] [address] Dr. Laila Castle Glucose [Mass/Vol] 144 mg/dL Critically high 74-106 [facility] Comment on above: Performed By: #### P OCGLUC #### [facility] [address] [place] [address] Dr. Laila Castle PROF 14(COMP METB)on 022 Albumin [Mass/Vol] 2.8 g/dL Critically low 3.4-5.0 [facility] Comment on above: Performed By: #### C MP #### [facility] [address] [place] [address] Dr. Laila Castle Albumin/Globulin [Mass ratio] 0.8 {ratio} Normal [facility] Comment on above: Performed By: #### C MP #### [facility] [address] [place] [address] Dr. Laila Castle ALP [Catalytic activity/Vol] 88 U/L Normal 46-116 [facility] Comment on above: Performed By: #### C MP #### [facility] [address] [place] [address] Dr. Laila Castle ALT [Catalytic activity/Vol] 19 U/L Normal 14-59 [facility] Comment on above: Performed By: #### C MP #### [facility] [address] [place] [address] Dr. Laila Castle Anion gap [Moles/Vol] 11.8 mmol/L Normal [facility] Comment on above: Performed By: #### C MP #### [facility] [address] [place] [address] Dr. Laila Castle AST [Catalytic activity/Vol] 20 U/L Normal 15-37 [facility] Comment on above: Performed By: #### C MP #### [facility] [address] [address] [address] Laila Castle Bilirubin [Mass/Vol] 0.3 mg/dL Normal 0.2-1.0 [facility] Comment on above: Performed By: #### C MP #### [facility] [address] [address] [address] Laila Castle Calcium [Mass/Vol] 9.7 mg/dL Normal 8.5-10.1 [facility] Comment on above: Performed By: #### C MP #### [facility] [address] [address] [address] Laila Castle Chloride [Moles/Vol] 106 mmol/L Normal 98-107 [facility] Comment on above: Performed By: #### C MP #### [facility] [address] [address] [address] Laila Castle CO2 [Moles/Vol] 24.6 mmol/L Normal 21.0-32.0 [facility] Comment on above: Performed By: #### C MP #### [facility] [address] [place] [address] Dr. Laila Castle Creatinine [Mass/Vol] 0.67 mg/dL Normal 0.55-1.02 [facility] Comment on above: Performed By: #### C MP #### [facility] [address] [place] [address] Dr. Laila Castle EGFR-AF BAHAMIAN >60 Normal >=60 [facility] Comment on above: Performed By: #### C MP #### [facility] [address] [place] [address] Dr. Laila Castle EGFR-NON AF BAHAMIAN >60 Normal >=60 [facility] Comment on above: Performed By: #### C MP #### [facility] [address] [place] [address] Dr. Laila Castle Globulin (S) [Mass/Vol] 3.3 g/dL Normal [facility] Comment on above: Performed By: #### C MP #### [facility] [address] [address] [address] Laila Castle Glucose [Mass/Vol] 84 mg/dL Normal 74-106 [facility] Comment on above: Performed By: #### C MP #### [facility] [address] [address] [address] Laila Castle Potassium [Moles/Vol] 3.4 mmol/L Critically low 3.5-5.1 [facility] Comment on above: Performed By: #### C MP #### [facility] [address] [address] [address] Laila Castle Protein [Mass/Vol] 6.1 g/dL Critically low 6.4-8.2 [facility] Comment on above: Performed By: #### C MP #### [facility] [address] [address] [address] Laila Castle Sodium [Moles/Vol] 139 mmol/L Normal 136-145 [facility] Comment on above: Performed By: #### C MP #### [facility] [address] [address] [address] Laila Castle Urea nitrogen [Mass/Vol] 19.0 mg/dL Critically high 7.0-18.0 [facility] Comment on above: Performed By: #### C MP #### [facility] [address] [address] [address] Laila Castle Urea nitrogen/Creatinine [Mass ratio] 28.4 mg/mg Normal [facility] Comment on above: Performed By: #### C MP #### [facility] [address] [address] [address] Laila Castle CBC AUTO DIFFon 11-11-2021 BASO # 0.0 103/ul Normal 0.0-0.1 [facility] Comment on above: Performed By: #### C BC #### [facility] [address] [address] [address] Laila Castle Basophils/100 WBC (Bld) 0.3 % Normal 0.2-2.0 [facility] Comment on above: Performed By: #### C BC #### [facility] [address] [place] [address] Dr. Laila Castle EO # 0.0 103/ul Normal 0.0-0.7 [facility] Comment on above: Performed By: #### C BC #### [facility] [address] [place] [address] Dr. Laila Castle Eosinophils/100 WBC (Bld) 0.0 % Critically low 0.9-7.0 [facility] Comment on above: Performed By: #### C BC #### [facility] [address] [place] [address] Dr. Laila Castle Erythrocyte distribution width (RBC) [Ratio] 14.5 % Normal 11.0-15.0 [facility] Comment on above: Performed By: #### C BC #### [facility] [address] [place] [address] Dr. Laila Castle Hematocrit (Bld) [Volume fraction] 38.7 % Normal 36.0-48.0 [facility] Comment on above: Performed By: #### C BC #### [facility] [address] [place] [address] Dr. Laila Castle Hemoglobin (Bld) [Mass/Vol] 12.1 g/dL Normal 12.0-16.0 [facility] Comment on above: Performed By: #### C BC #### [facility] [address] [place] [address] Dr. Laila Castle IG # 0.21 10e3/ul Critically high 0.00-0.03 [facility] Comment on above: Performed By: #### C BC #### [facility] [address] [place] [address] Dr. Laila Castle IG % 1.8 % Critically high 0.0-0.5 [facility] Comment on above: Performed By: #### C BC #### [facility] [address] [place] [address] Dr. Laila Castle LYMPH # 0.8 103/ul Critically low 1.2-3.8 [facility] Comment on above: Performed By: #### C BC #### [facility] [address] [place] [address] Dr. Laila Castle Lymphocytes/100 WBC (Bld) 6.6 % Critically low 20.5-60.0 [facility] Comment on above: Performed By: #### C BC #### [facility] [address] [place] [address] Dr. Laila Castle MANUAL DIFF REQ NO Normal [facility] Comment on above: Performed By: #### C BC #### [facility] [address] [place] [address] Dr. Laila Castle MCH (RBC) [Entitic mass] 29.1 pg Normal 26.7-34.0 [facility] Comment on above: Performed By: #### C BC #### [facility] [address] [place] [address] Dr. Laila Castle MCHC (RBC) [Mass/Vol] 31.3 g/dL Normal 29.9-35.2 [facility] Comment on above: Performed By: #### C BC #### [facility] [address] [place] [address] Dr. Laila Castle MCV (RBC) [Entitic vol] 93.0 fL Normal 81.0-99.0 [facility] Comment on above: Performed By: #### C BC #### [facility] [address] [place] [address] Dr. Laila Castle MONO # 0.6 103/ul Normal 0.3-0.8 [facility] Comment on above: Performed By: #### C BC #### [facility] [address] [place] [address] Dr. Laila Castle Monocytes/100 WBC (Bld) 5.1 % Normal 1.7-12.0 [facility] Comment on above: Performed By: #### C BC #### [facility] [address] [place] [address] Dr. Laila Castle NEUT # 10.1 103/ul Critically high 1.4-6.5 [facility] Comment on above: Performed By: #### C BC #### [facility] [address] [address] [address] Laila Castle Neutrophils/100 WBC (Bld) 86.2 % Critically high 43.0-75.0 [facility] Comment on above: Performed By: #### C BC #### [facility] [address] [address] [address] Laila Castle Platelet mean volume (Bld) [Entitic vol] 8.9 fL Critically low 9.5-13.5 [facility] Comment on above: Performed By: #### C BC #### [facility] [address] [address] [address] Laila Castle PLT 239 103/ul Normal 150-450 [facility] Comment on above: Performed By: #### C BC #### [facility] [address] [address] [address] Laila Castle RBC 4.16 106/ul Critically low 4.20-5.40 [facility] Comment on above: Performed By: #### C BC #### [facility] [address] [address] [address] Laila Castle WBC 11.7 103/ul Critically high 4.0-11.0 [facility] Comment on above: Performed By: #### C BC #### [facility] [address] [place] [address] Dr. Laila Castle POINT OF CARE GLUCOSEon 10-22 Glucose [Mass/Vol] 132 mg/dL Critically high 74-106 [facility] Comment on above: Performed By: #### P OCGLUC #### [facility] [address] [address] [address] Laila Castle Glucose [Mass/Vol] 125 mg/dL Critically high 74-106 [facility] Comment on above: Performed By: #### C MP #### [facility] [address] [address] [address] Laila Castle Glucose [Mass/Vol] 127 mg/dL Critically high 74-106 [facility] Comment on above: Performed By: #### P OCGLUC #### [facility] [address] [address] [address] Laila Castle Glucose [Mass/Vol] 102 mg/dL Normal 74-106 [facility] Comment on above: Performed By: #### P OCGLUC #### [facility] [address] [address] [address] Laila Castle PROF 14(COMP METB)on 022 Albumin [Mass/Vol] 2.7 g/dL Critically low 3.4-5.0 [facility] Comment on above: Performed By: #### C MP #### [facility] [address] [place] [address] Dr. Laila Castle Albumin/Globulin [Mass ratio] 0.8 {ratio} Normal [facility] Comment on above: Performed By: #### C MP #### [facility] [address] [place] [address] Dr. Laila Castle ALP [Catalytic activity/Vol] 88 U/L Normal 46-116 [facility] Comment on above: Performed By: #### C MP #### [facility] [address] [place] [address] Dr. Laila Castle ALT [Catalytic activity/Vol] 16 U/L Normal 14-59 [facility] Comment on above: Performed By: #### C MP #### [facility] [address] [place] [address] Dr. Laila Castle Anion gap [Moles/Vol] 12.8 mmol/L Normal [facility] Comment on above: Performed By: #### C MP #### [facility] [address] [place] [address] Dr. Laila Castle AST [Catalytic activity/Vol] 15 U/L Normal 15-37 [facility] Comment on above: Performed By: #### C MP #### [facility] [address] [place] [address] Dr. Laila Castle Bilirubin [Mass/Vol] 0.2 mg/dL Normal 0.2-1.0 [facility] Comment on above: Performed By: #### C MP #### [facility] [address] [address] [address] Laila Castle Calcium [Mass/Vol] 9.8 mg/dL Normal 8.5-10.1 [facility] Comment on above: Performed By: #### C MP #### [facility] Laboratory [address] [address] [address] Laila Castle Chloride [Moles/Vol] 106 mmol/L Normal 98-107 [facility] Comment on above: Performed By: #### C MP #### [facility] [address] [address] [address] Laila Castle CO2 [Moles/Vol] 24.0 mmol/L Normal 21.0-32.0 [facility] Comment on above: Performed By: #### C MP #### [facility] [address] [place] [address] Dr. Laila Castle Creatinine [Mass/Vol] 0.62 mg/dL Normal 0.55-1.02 [facility] Comment on above: Performed By: #### C MP #### [facility] [address] [place] [address] Dr. Laila Castle EGFR-AF BAHAMIAN >60 Normal >=60 [facility] Comment on above: Performed By: #### C MP #### [facility] [address] [place] [address] Dr. Laila Castle EGFR-NON AF BAHAMIAN >60 Normal >=60 [facility] Comment on above: Performed By: #### C MP #### [facility] [address] [address] [address] Laila Castle Globulin (S) [Mass/Vol] 3.6 g/dL Normal [facility] Comment on above: Performed By: #### C MP #### [facility] [address] [place] [address] Dr. Laila Castle Glucose [Mass/Vol] 126 mg/dL Critically high 74-106 [facility] Comment on above: Performed By: #### C MP #### [facility] [address] [place] [address] Dr. Laila Castle Potassium [Moles/Vol] 3.8 mmol/L Normal 3.5-5.1 [facility] Comment on above: Performed By: #### C MP #### [facility] [address] [place] [address] Dr. Laila Castle Protein [Mass/Vol] 6.3 g/dL Critically low 6.4-8.2 [facility] Comment on above: Performed By: #### C MP #### [facility] [address] [place] [address] Dr. Laila Castle Sodium [Moles/Vol] 139 mmol/L Normal 136-145 [facility] Comment on above: Performed By: #### C MP #### [facility] [address] [place] [address] Dr. Laila Castle Urea nitrogen [Mass/Vol] 18.0 mg/dL Normal 7.0-18.0 [facility] Comment on above: Performed By: #### C MP #### [facility] [address] [place] [address] Dr. Laila Castle Urea nitrogen/Creatinine [Mass ratio] 29.0 mg/mg Normal [facility] Comment on above: Performed By: #### C MP #### [facility] [address] [place] [address] Dr. Laila Castle CBC AUTO DIFFon 11-10-2021 BASO # 0.0 103/ul Normal 0.0-0.1 [facility] Comment on above: Performed By: #### P OCGLUC #### [facility] [address] [place] [address] Dr. Laila Castle Basophils/100 WBC (Bld) 0.7 % Normal 0.2-2.0 [facility] Comment on above: Performed By: #### P OCGLUC #### [facility] [address] [place] [address] Dr. Liala Castle EO # 0.0 103/ul Normal 0.0-0.7 [facility] Comment on above: Performed By: #### P OCGLUC #### [facility] [address] [place] [address] Dr. Laila Castle Eosinophils/100 WBC (Bld) 0.0 % Critically low 0.9-7.0 [facility] Comment on above: Performed By: #### P OCGLUC #### [facility] [address] [place] [address] Dr. Laila Castle Erythrocyte distribution width (RBC) [Ratio] 14.6 % Normal 11.0-15.0 [facility] Comment on above: Performed By: #### P OCGLUC #### [facility] [address] [address] [address] Laila Castle Hematocrit (Bld) [Volume fraction] 38.6 % Normal 36.0-48.0 [facility] Comment on above: Performed By: #### P OCGLUC #### [facility] [address] [place] [address] Dr. Laila Castle Hemoglobin (Bld) [Mass/Vol] 12.1 g/dL Normal 12.0-16.0 [facility] Comment on above: Performed By: #### P OCGLUC #### [facility] [address] [place] [address] Dr. Laila Castle IG # 0.23 10e3/ul Critically high 0.00-0.03 [facility] Comment on above: Performed By: #### P OCGLUC #### [facility] [address] [place] [address] Dr. Laila Castle IG % 4.0 % Critically high 0.0-0.5 [facility] Comment on above: Performed By: #### P OCGLUC #### [facility] [address] [place] [address] Dr. Laila Castle LYMPH # 0.7 103/ul Critically low 1.2-3.[address] [facility] Comment on above: Performed By: #### P OCGLUC #### [facility] [address] [place] [address] Dr. Laila Castle Lymphocytes/100 WBC (Bld) 11.3 % Critically low 20.5-60.0 [facility] Comment on above: Result Comment: MANU AL DIFF NOT REQUIRED. CONSISTENT WITH MANUAL DIFF PERFORMED ON 11/10/21 Performed By: #### P OCGLUC #### [facility] [address] [place] [address] Dr. Laila Castle MANUAL DIFF REQ NO Normal [facility] Comment on above: Performed By: #### P OCGLUC #### [facility] [address] [place] [address] Dr. Laila Castle MCH (RBC) [Entitic mass] 28.6 pg Normal 26.7-34.0 [facility] Comment on above: Performed By: #### P OCGLUC #### [facility] [address] [place] [address] Dr. Laila Castle MCHC (RBC) [Mass/Vol] 31.3 g/dL Normal 29.9-35.2 [facility] Comment on above: Performed By: #### P OCGLUC #### [facility] [address] [place] [address] Dr. Laila Castle MCV (RBC) [Entitic vol] 91.3 fL Normal 81.0-99.0 [facility] Comment on above: Performed By: #### P OCGLUC #### [facility] [address] [place] [address] Dr. Laila Castle MONO # 0.1 103/ul Critically low 0.3-0.8 [facility] Comment on above: Performed By: #### P OCGLUC #### [facility] [address] [place] [address] Dr. Laila Castle Monocytes/100 WBC (Bld) 2.1 % Normal 1.7-12.0 [facility] Comment on above: Performed By: #### P OCGLUC #### [facility] [address] [place] [address] Dr. Laila Castle NEUT # 4.7 103/ul Normal 1.4-6.5 [facility] Comment on above: Performed By: #### P OCGLUC #### [facility] [address] [place] [address] Dr. Laila Castle Neutrophils/100 WBC (Bld) 81.9 % Critically high 43.0-75.0 [facility] Comment on above: Performed By: #### P OCGLUC #### [facility] [address] [address] [address] Laila Castle Platelet mean volume (Bld) [Entitic vol] 8.9 fL Critically low 9.5-13.5 [facility] Comment on above: Performed By: #### P OCGLUC #### [facility] [address] [address] [address] Laila Castle PLT 213 103/ul Normal 150-450 [facility] Comment on above: Performed By: #### P OCGLUC #### [facility] [address] [address] [address] Laila Castle RBC 4.23 106/ul Normal 4.20-5.40 [facility] Comment on above: Performed By: #### P OCGLUC #### [facility] [address] [address] [address] Laila Castle WBC 5.8 103/ul Normal 4.0-11.0 [facility] Comment on above: Performed By: #### P OCGLUC #### [facility] [address] [address] [address] Laila Castle POINT OF CARE GLUCOSEon 10-22 Glucose [Mass/Vol] 147 mg/dL Critically high -106 [facility] Comment on above: Performed By: #### P OCGLUC #### [facility] [address] [address] [address] Laila Castle Glucose [Mass/Vol] 125 mg/dL Critically high -106 [facility] Comment on above: Performed By: #### C VDTBH #### [facility] [address] [address] [address] Laila Castle Glucose [Mass/Vol] 148 mg/dL Critically high -106 [facility] Comment on above: Performed By: #### P OCGLUC #### [facility] [address] [address] [address] Laila Castle PROF 14(COMP METB)on 022 Albumin [Mass/Vol] 2.6 g/dL Critically low 3.4-5.0 [facility] Comment on above: Performed By: #### C MP #### [facility] [address] [address] [address] Laila Castle Albumin/Globulin [Mass ratio] 0.7 {ratio} Normal [facility] Comment on above: Performed By: #### C MP #### [facility] [address] [address] [address] Laila Castle ALP [Catalytic activity/Vol] 93 U/L Normal 46-116 [facility] Comment on above: Performed By: #### C MP #### [facility] [address] [address] [address] Laila Castle ALT [Catalytic activity/Vol] 20 U/L Normal 14-59 [facility] Comment on above: Performed By: #### C MP #### [facility] [address] [place] [address] Dr. Laila Castle Anion gap [Moles/Vol] 14.0 mmol/L Normal [facility] Comment on above: Performed By: #### C MP #### [facility] [address] [place] [address] Dr. Laila Castle AST [Catalytic activity/Vol] 15 U/L Normal 15-37 [facility] Comment on above: Performed By: #### C MP #### [facility] [address] [address] [address] Laila Castle Bilirubin [Mass/Vol] 0.2 mg/dL Normal 0.2-1.0 [facility] Comment on above: Performed By: #### C MP #### [facility] [address] [place] [address] Dr. Laila Castle Calcium [Mass/Vol] 9.1 mg/dL Normal 8.5-10.1 [facility] Comment on above: Performed By: #### C MP #### [facility] [address] [address] [address] Laila Castle Chloride [Moles/Vol] 106 mmol/L Normal 98-107 [facility] Comment on above: Performed By: #### C MP #### [facility] [address] [address] [address] Laila Castle CO2 [Moles/Vol] 23.8 mmol/L Normal 21.0-32.0 [facility] Comment on above: Performed By: #### C MP #### [facility] [address] [address] [address] Laila Castle Creatinine [Mass/Vol] 0.57 mg/dL Normal 0.55-1.02 [facility] Comment on above: Performed By: #### C MP #### [facility] [address] [address] [address] Laila Castle EGFR-AF BAHAMIAN >60 Normal >=60 [facility] Comment on above: Performed By: #### C MP #### [facility] [address] [place] [address] Dr. Laila Castle EGFR-NON AF BAHAMIAN >60 Normal >=60 [facility] Comment on above: Performed By: #### C MP #### [facility] [address] [place] [address] Dr. Laila Castle Globulin (S) [Mass/Vol] 3.7 g/dL Normal [facility] Comment on above: Performed By: #### C MP #### [facility] [address] [place] [address] Dr. Laila Castle Glucose [Mass/Vol] 133 mg/dL Critically high 74-106 [facility] Comment on above: Performed By: #### C MP #### [facility] [address] [place] [address] Dr. Laila Castle Potassium [Moles/Vol] 3.8 mmol/L Normal 3.5-5.1 [facility] Comment on above: Performed By: #### C MP #### [facility] [address] [place] [address] Dr. Laila Castle Protein [Mass/Vol] 6.3 g/dL Critically low 6.4-8.2 [facility] Comment on above: Performed By: #### C MP #### [facility] [address] [place] [address] Dr. Laila Castle Sodium [Moles/Vol] 140 mmol/L Normal 136-145 [facility] Comment on above: Performed By: #### C MP #### [facility] [address] [place] [address] Dr. Laila Castle Urea nitrogen [Mass/Vol] 12.0 mg/dL Normal 7.0-18.0 [facility] Comment on above: Performed By: #### C MP #### [facility] [address] [place] [address] Dr. Laila Castle Urea nitrogen/Creatinine [Mass ratio] 21.1 mg/mg Normal [facility] Comment on above: Performed By: #### C MP #### [facility] [address] [place] [address] Dr. Laila Castle CARDIAC HECTOR ADMITon 022 CK [Catalytic activity/Vol] 58 U/L Normal 26-192 [facility] Comment on above: Performed By: #### P OCGLUC #### [facility] [address] [place] [address] Dr. Laila Castle CK.MB [Mass/Vol] 27.42 ng/mL Critically high <=3.60 [facility] Comment on above: Performed By: #### P OCGLUC #### [facility] [address] [place] [address] Dr. Laila Castle HSTROP 7.6 pg/mL Normal 4.0-51.3 [facility] Comment on above: Result Comment: CUT- OFF POINTS HAVE BEEN ESTABLISHED BASED ON THE FOURTH UNIVERSAL DEFINITIONS OF MYOCARDIAL INFARCTION. THE UPPER REFERENCE LIMIT (URL) OF TROPONIN, DEFINED THE 99TH PERCENTILE OF cTnI DISTRIBUTION IN A REFERENCE POPULATION, HAS BEEN CONFIRMED THE DECISION THRESHOLD FOR [place] DIAGNOSIS. Performed By: #### P OCGLUC #### [facility] [address] [place] [address] Dr. Laila Castle SPENCER 15 ng/mL Normal 9-82 [facility] Comment on above: Performed By: #### P OCGLUC #### [facility] [address] [place] [address] Dr. Laila Castle CBC W MANUAL DIFFon 08-20-20 22 ATYPICAL LYMPH # Normal [facility] Comment on above: Performed By: #### C VDTBH #### [facility] [address] [place] [address] Dr. Laila Castle ATYPICAL LYMPH % Normal [facility] Comment on above: Performed By: #### C VDTBH #### [facility] [address] [place] [address] Dr. Laila Castle BAND # Normal 0.0-0.3 [facility] Comment on above: Performed By: #### C VDTBH #### [facility] [address] [place] [address] Dr. Laila Castle BAND % Normal 0-5 [facility] Comment on above: Performed By: #### C VDTBH #### [facility] [address] [place] [address] Dr. Laila Castle BASOM # 0.09 103/ul Normal 0.00-0.10 [facility] Comment on above: Performed By: #### C VDTBH #### [facility] [address] [place] [address] Dr. Laila Castle BASOM % 1.0 % Normal 0.2-2.0 [facility] Comment on above: Performed By: #### C VDTBH #### [facility] [address] [place] [address] Dr. Laila Csatle BLAST # Normal [facility] Comment on above: Performed By: #### C VDTBH #### [facility] [address] [place] [address] Dr. Laila Castle BLAST % Normal [facility] Comment on above: Performed By: #### C VDTBH #### [facility] [address] [place] [address] Dr. Laila Castle CORRECTED WBC Normal 4.0-11.0 [facility] Comment on above: Performed By: #### C VDTBH #### [facility] [address] [place] [address] Dr. Laila Castle EOS # 0.00 103/ul Normal 0.00-0.70 [facility] Comment on above: Performed By: #### C VDTBH #### [facility] [address] [address] [address] Laila Castle EOS% 0.0 % Critically low 0.9-7.0 [facility] Comment on above: Performed By: #### C VDTBH #### [facility] [address] [address] [address] Laila Castle HCT 40.4 % Normal 36.0-48.0 [facility] Comment on above: Performed By: #### C VDTBH #### [facility] [address] [address] [address] Laila Castle HGB 12.9 g/dl Normal 12.0-16.0 [facility] Comment on above: Performed By: #### C VDTBH #### [facility] [address] [address] [address] Laila Castle LYMPHM # 0.73 103/ul Critically low 1.20-3.80 [facility] Comment on above: Performed By: #### C VDTBH #### [facility] [address] [address] [address] Laila Castle LYMPHM% 8.0 % Critically low 20.5-60.0 [facility] Comment on above: Performed By: #### C VDTBH #### [facility] [address] [address] [address] Laila Castle MCH 28.5 pg Normal 26.7-34.0 [facility] Comment on above: Performed By: #### C VDTBH #### [facility] [address] [address] [address] Laila Castle MCHC 31.9 g/dl Normal 29.9-35.2 [facility] Comment on above: Performed By: #### C VDTBH #### [facility] [address] [address] [address] Laila Castle MCV 89.4 fL Normal 81.0-99.0 [facility] Comment on above: Performed By: #### C VDTBH #### [facility] [address] [place] [address] Dr. Laila Castle METAMYELOCYTE # Normal [facility] Comment on above: Performed By: #### C VDTBH #### [facility] [address] [place] [address] Dr. Laila Castle METAMYELOCYTE % Normal [facility] Comment on above: Performed By: #### C VDTBH #### [facility] [address] [place] [address] Dr. Laila Castle MONOM# 0.18 103/ul Critically low 0.30-0.80 [facility] Comment on above: Performed By: #### C VDTBH #### [facility] [address] [place] [address] Dr. Laila Castle MONOM% 2.0 % Normal 1.7-12.0 [facility] Comment on above: Performed By: #### C VDTBH #### [facility] [address] [place] [address] Dr. Laila Castle MPV 9.7 fL Normal 9.5-13.5 [facility] Comment on above: Performed By: #### C VDTBH #### [facility] [address] [place] [address] Dr. Laila Castle MYELOCYTE # Normal [facility] Comment on above: Performed By: #### C VDTBH #### [facility] [address] [place] [address] Dr. Laila Castle MYELOCYTE % Normal [facility] Comment on above: Performed By: #### C VDTBH #### [facility] [address] [place] [address] Dr. Laila Castle NRBC Normal [facility] Comment on above: Performed By: #### C VDTBH #### [facility] [address] [place] [address] Dr. Laila Castle PLT 288 103/ul Normal 150-450 [facility] Comment on above: Performed By: #### C VDTBH #### [facility] [address] [place] [address] Dr. Laila Castle RBC 4.52 106/ul Normal 4.20-5.40 [facility] Comment on above: Performed By: #### C VDTBH #### [facility] [address] [address] [address] Laila Castle RDW 14.9 % Normal 11.0-15.0 [facility] Comment on above: Performed By: #### C VDTBH #### [facility] [address] [address] [address] Laila Castle SEG # 8.10 103/ul Critically high 1.40-6.50 [facility] Comment on above: Performed By: #### C VDTBH #### [facility] [address] [place] [address] Dr. Laila Castle SEG % 89.0 % Critically high 43.0-75.0 [facility] Comment on above: Performed By: #### C VDTBH #### [facility] [address] [address] [address] Laila Castle WBC 9.1 103/ul Normal 4.0-11.0 [facility] Comment on above: Performed By: #### C VDTBH #### [facility] [address] [place] [address] Dr. Laila Castle CTA CHEST WO W [...] COLLETTE MARLOW Date: 2021-11-09 17:09 Normal [facility] D-DIMERon 11-09-2021 D-DIMER 5.66 mg/L FEU Critically high <=0.59 [facility] Comment on above: Performed By: #### D DIM #### [facility] [address] [address] [address] Laila Castle D-DIMER COMMENTS SEE BELOW Normal [facility] Comment on above: Result Comment: Incr eases [...] hospitalization. Performed By: #### D DIM #### [facility] [address] [address] [address] Laila Castle POINT OF CARE GLUCOSEon 10-22 Glucose [Mass/Vol] 160 mg/dL Critically high 74-106 [facility] Comment on above: Performed By: #### P OCGLUC #### [facility] [address] [address] [address] Laila Castle PROF 14(COMP METB)on 022 Albumin [Mass/Vol] 2.8 g/dL Critically low 3.4-5.0 [facility] Comment on above: Performed By: #### P OCGLUC #### [facility] [address] [address] [address] Laila Castle Albumin/Globulin [Mass ratio] 0.7 {ratio} Normal [facility] Comment on above: Performed By: #### P OCGLUC #### [facility] [address] [place] [address] Dr. Laila Castle ALP [Catalytic activity/Vol] 101 U/L Normal 46-116 [facility] Comment on above: Performed By: #### P OCGLUC #### [facility] [address] [address] [address] Laila Castle ALT [Catalytic activity/Vol] 26 U/L Normal 14-59 [facility] Comment on above: Performed By: #### P OCGLUC #### [facility] [address] [address] [address] Laila Castle Anion gap [Moles/Vol] 16.7 mmol/L Normal [facility] Comment on above: Performed By: #### P OCGLUC #### [facility] [address] [place] [address] Dr. Laila Castle AST [Catalytic activity/Vol] 43 U/L Critically high 15-37 [facility] Comment on above: Performed By: #### P OCGLUC #### [facility] [address] [address] [address] Laila Castle Bilirubin [Mass/Vol] 0.6 mg/dL Normal 0.2-1.0 [facility] Comment on above: Performed By: #### P OCGLUC #### [facility] [address] [place] [address] Dr. Laila Castle Calcium [Mass/Vol] 9.9 mg/dL Normal 8.5-10.1 [facility] Comment on above: Performed By: #### P OCGLUC #### [facility] [address] [address] [address] Laila Castle Chloride [Moles/Vol] 100 mmol/L Normal 98-107 [facility] Comment on above: Performed By: #### P OCGLUC #### [facility] [address] [address] [address] Laila Castle CO2 [Moles/Vol] 24.0 mmol/L Normal 21.0-32.0 [facility] Comment on above: Performed By: #### P OCGLUC #### [facility] [address] [address] [address] Laila Castle Creatinine [Mass/Vol] 0.71 mg/dL Normal 0.55-1.02 [facility] Comment on above: Performed By: #### P OCGLUC #### [facility] [address] [place] [address] Dr. Laila Castle EGFR-AF BAHAMIAN >60 Normal >=60 [facility] Comment on above: Performed By: #### P OCGLUC #### [facility] Laboratory [address] [address] [address] Laila Castle EGFR-NON AF BAHAMIAN >60 Normal >=60 [facility] Comment on above: Performed By: #### P OCGLUC #### [facility] [address] [address] [address] Laila Castle Globulin (S) [Mass/Vol] 4.2 g/dL Normal [facility] Comment on above: Performed By: #### P OCGLUC #### [facility] [address] [address] [address] Laila Castle Glucose [Mass/Vol] 119 mg/dL Critically high 74-106 [facility] Comment on above: Performed By: #### P OCGLUC #### [facility] [address] [address] [address] Laila Castle Potassium [Moles/Vol] 4.7 mmol/L Normal 3.5-5.1 [facility] Comment on above: Performed By: #### P OCGLUC #### [facility] [address] [address] [address] Laila Castle Protein [Mass/Vol] 7.0 g/dL Normal 6.4-8.2 [facility] Comment on above: Performed By: #### P OCGLUC #### [facility] [address] [address] [address] Laila Castle Sodium [Moles/Vol] 136 mmol/L Normal 136-145 [facility] Comment on above: Performed By: #### P OCGLUC #### [facility] [address] [address] [address] Laila Castle Urea nitrogen [Mass/Vol] 14.0 mg/dL Normal 7.0-18.0 [facility] Comment on above: Performed By: #### P OCGLUC #### [facility] [address] [address] [address] Laila Castle Urea nitrogen/Creatinine [Mass ratio] 19.7 mg/mg Normal [facility] Comment on above: Performed By: #### P OCGLUC #### [facility] [address] [address] [address] Laila Castle XR CHEST 1 Von [...] BRIANNA LUZ Date: 2021-11-09 15:57 Normal [facility] Covid-19 PCR (CVDTBH)on 10-21 SARS-CoV-2 (COVID-19) RNA GLYNN+probe Ql (Unsp spec) Detected Critically abnormal NOT DETECTED [facility] Comment on above: Result Comment: This test is not yet approved or cleared by the [place] FDA. When there are no FDA-approved or cleared tests available, and other criteria are met, FDA can make tests available under an emergency access mechanism called an Emergency Use Authorization (EUA). The EUA for this test is supported by the [place] of Health and Human Service's (HHS's) declaration [...] used). Performed By: #### C VDTB #### [facility] [address] [address] [address] Laila Castle Telephone Encounteron 2021 [employer] Authentication Interface Message Text Existing RX should have refills. Normal [facility] Telephone Encounteron 2021 [employer] Authentication Interface Message Text Sent pt mychart msg Normal [facility] [employer] Authentication Interface Message Text Needs f/u visit Normal [facility] [employer] [facility] Cult,Funguson 09-16-2021 Cult,Fungus Specimen Description .SHOULDER RIGHT JOINT FLUID Culture NO GROWTH 31 DAYS Report Status FINAL 09/16/2021 Normal [facility] Comment on above: Performed By: #### L ACTIC #### [facility] [address] [place] [address] Printing Equipment Mechanic: Chriss Townsend MD CBC with Auto Differentialon 09-09-2021 Absolute Eos # 0.04 [facility] Immature Granulocyte 0.23 [facility] Absolute Lymph # 2.35 [facility] [employer] Absolute [place] # 0.73 [facility] Basophils (Bld) [#/Vol] 0.05 10*3/uL [facility] Basophils/100 WBC (Bld) 1 % 0 - 2 % [facility] Eosinophils/100 WBC (Bld) 0 % Low 1 - 4 % [facility] Hematocrit (Bld) [Volume fraction] 38.1 % 36.3 - 47.1 % [facility] Hemoglobin (Bld) [Mass/Vol] 11.8 g/dL Low 11.9 - 15.1 g/dL [facility] Immature granulocytes/100 WBC (Bld) 2 % High 0 [facility] Interpretation and review of laboratory results Abnormal [facility] Lymphocytes/100 WBC (Bld) 24 % 24 - 43 % [facility] MCH (RBC) [Entitic mass] 29.7 pg 25.2 - 33.5 pg [facility] MCHC (RBC) [Mass/Vol] 31.0 g/dL 28.4 - 34.8 g/dL [facility] MCV (RBC) [Entitic vol] 96.0 fL 82.6 - 102.9 fL [facility] Monocytes/100 WBC (Bld) 7 % 3 - 12 % [facility] NRBC Automated 0.0 0.0 per 100 WBC [facility] Platelet distribution width (Bld) [Ratio] 16.2 % High 11.8 - 14.4 % [facility] Platelet mean volume (Bld) [Entitic vol] 9.9 fL 8.1 - 13.5 fL [facility] Platelets (Bld) [#/Vol] 234 10*3/uL [facility] RBC (Bld) [#/Vol] 3.97 10*6/uL 3.95 - 5.1 1 m/uL [facility] Segmented neutrophils/100 WBC (Bld) 66 % High 36 - 65 % [facility] Segs Absolute 6.58 [facility] WBC (Bld) [#/Vol] 10.0 10*3/uL [facility] Comprehensive Metabolic Pane markell 09-09-2021 Albumin [Mass/Vol] 4.1 g/dL 3.5 - 5.2 g/dL [facility] Albumin/Globulin [Mass ratio] 1.5 {ratio} [facility] ALP (Bld) [Catalytic activity/Vol] 146 U/L High 35 - 104 U/L [facility] ALT [Catalytic activity/Vol] 6 U/L 5 - 33 U/L [facility] Anion gap [Moles/Vol] 11 mmol/L 9 - 17 mmol/L [facility] AST [Catalytic activity/Vol] 25 U/L <32 [facility] Bilirubin [Mass/Vol] 0.31 mg/dL 0.3 - 1 .2 mg/dL [facility] Calcium [Mass/Vol] 10.4 mg/dL 8.6 - 10. 4 mg/dL [facility] Chloride [Moles/Vol] 101 mmol/L 98 - 10 7 mmol/L [facility] CO2 [Moles/Vol] 26 mmol/L 20 - 31 mmol/L [facility] Creatinine [Mass/Vol] 0.38 mg/dL Low 0.50 - 0.90 mg/dL [facility] Free PSA/Total PSA [Mass fraction] 6.8 g/dL 6.4 - 8.3 g/dL [facility] GFR >60 >60 mL/min [facility] GFR Non- >60 >60 mL/min [facility] Glucose [Mass/Vol] 74 mg/dL 70 - 99 mg/dL [facility] Interpretation and review of laboratory results Abnormal [facility] Potassium [Moles/Vol] 3.9 mmol/L 3.7 - 5.3 mmol/L [facility] Sodium [Moles/Vol] 138 mmol/L 135 - 144 mmol/L [facility] Urea nitrogen (BldV) [Mass/Vol] 10 mg/dL 8 - 23 mg/dL [facility] Urea nitrogen/Creatinine (Bld) [Mass ratio] 26 High [facility] Laboratory - Chemistry and C hemistry - challengeon 09-09-2021 GFR/1.73 sq M.predicted MDRD (S/P/Bld) [Vol rate/Area] [facility] Comment on above: Average GFR for 60-6 9 years old: 85 mL/min/1.73sq m Chronic Kidney Disease: <60 mL/min/1.73sq m Kidney failure: <15 mL/min/1.73sq m eGFR calculated using average adult body mass. Additional eGFR calculator available at: http://www.Writer.ly/multiple_crcl_2012.htm Stage 1: Some kidney damage normal GFR Stage 2: Mild kidney damage GFR 60-89 Stage 3: Moderate kidney damage GFR 30-59 Stage 4: Severe kidney damage GFR 15-29 Stage 5: Severe kidney damage GFR <15 ESRD - chronic treatment by dialysis or transplant CBC with Auto Differentialon 09-02-2021 Absolute Eos # <0.03 [facility] Absolute Immature Granulocyte 0.49 High [facility] Absolute Lymph # 1.22 [facility] Absolute [place] # 0.78 [facility] Basophils (Bld) [#/Vol] 0.04 10*3/uL [facility] Basophils/100 WBC (Bld) 0 % 0 - 2 % [facility] Eosinophils/100 WBC (Bld) 0 % Low 1 - 4 % [facility] Hematocrit (Bld) [Volume fraction] 37.2 % 36.3 - 47.1 % [facility] Hemoglobin (Bld) [Mass/Vol] 11.1 g/dL Low 11.9 - 15.1 g/dL [facility] Immature granulocytes/100 WBC (Bld) 5 % High 0 [facility] Interpretation and review of laboratory results Abnormal [facility] Lymphocytes/100 WBC (Bld) 12 % Low 24 - 43 % [facility] MCH (RBC) [Entitic mass] 29.1 pg 25.2 - 33.5 pg [facility] MCHC (RBC) [Mass/Vol] 29.8 g/dL 28.4 - 34.8 g/dL [facility] MCV (RBC) [Entitic vol] 97.4 fL 82.6 - 102.9 fL [facility] Monocytes/100 WBC (Bld) 7 % 3 - 12 % [facility] NRBC Automated 0.0 0.0 per 100 WBC [facility] Platelet distribution width (Bld) [Ratio] 16.1 % High 11.8 - 14.4 % [facility] Platelet mean volume (Bld) [Entitic vol] 9.3 fL 8.1 - 13.5 fL [facility] Platelets (Bld) [#/Vol] 290 10*3/uL [facility] RBC (Bld) [#/Vol] 3.82 10*6/uL Low 3.95 - 5.1 1 m/uL [facility] Segmented neutrophils/100 WBC (Bld) 76 % High 36 - 65 % [facility] Segs Absolute 8.00 [facility] WBC (Bld) [#/Vol] 10.5 10*3/uL [facility] Comprehensive Metabolic Pane markell 09-02-2021 Albumin [Mass/Vol] 3.6 g/dL 3.5 - 5.2 g/dL [facility] Albumin/Globulin [Mass ratio] 1.2 {ratio} [facility] ALP (Bld) [Catalytic activity/Vol] 172 U/L High 35 - 104 U/L [facility] ALT [Catalytic activity/Vol] 7 U/L 5 - 33 U/L [facility] Anion gap [Moles/Vol] 9 mmol/L 9 - 17 mmol/L [facility] AST [Catalytic activity/Vol] 26 U/L <32 [facility] Bilirubin [Mass/Vol] 0.19 mg/dL Low 0.3 - 1 .2 mg/dL [facility] Calcium [Mass/Vol] 10.3 mg/dL 8.6 - 10. 4 mg/dL [facility] Chloride [Moles/Vol] 103 mmol/L 98 - 10 7 mmol/L [facility] CO2 [Moles/Vol] 25 mmol/L 20 - 31 mmol/L [facility] Creatinine [Mass/Vol] 0.41 mg/dL Low 0.50 - 0.90 mg/dL [facility] Free PSA/Total PSA [Mass fraction] 6.7 g/dL 6.4 - 8.3 g/dL [facility] GFR >60 >60 mL/min [facility] GFR Non- >60 >60 mL/min [facility] Glucose [Mass/Vol] 90 mg/dL 70 - 99 mg/dL [facility] Interpretation and review of laboratory results Abnormal [facility] Potassium [Moles/Vol] 3.8 mmol/L 3.7 - 5.3 mmol/L [facility] Sodium [Moles/Vol] 137 mmol/L 135 - 144 mmol/L [facility] Urea nitrogen (BldV) [Mass/Vol] 14 mg/dL 8 - 23 mg/dL [facility] Urea nitrogen/Creatinine (Bld) [Mass ratio] 34 High [facility] Laboratory - Chemistry and C hemistry - challengeon 09-02-2021 GFR/1.73 sq M.predicted MDRD (S/P/Bld) [Vol rate/Area] [facility] Comment on above: Average GFR for 60-6 9 years old: 85 mL/min/1.73sq m Chronic Kidney Disease: <60 mL/min/1.73sq m Kidney failure: <15 mL/min/1.73sq m eGFR calculated using average adult body mass. Additional eGFR calculator available at: http://www.Writer.ly/multiple_crcl_2012.htm Stage 1: Some kidney damage normal GFR Stage 2: Mild kidney damage GFR 60-89 Stage 3: Moderate kidney damage GFR 30-59 Stage 4: Severe kidney damage GFR 15-29 Stage 5: Severe kidney damage GFR <15 ESRD - chronic treatment by dialysis or transplant CBC with Auto Differentialon 08-26-2021 Absolute Eos # <0.03 [place] [facility] Absolute Immature Granulocyte 0.30 [facility] Absolute Lymph # 1.07 Low [facility] Absolute [place] # 0.34 [facility] Basophils (Bld) [#/Vol] 10*3/uL [facility] Basophils/100 WBC (Bld) 0 % 0 - 2 % [facility] Eosinophils/100 WBC (Bld) 0 % Low 1 - 4 % [facility] Hematocrit (Bld) [Volume fraction] 33.9 % Low 36.3 - 47.1 % [facility] Hemoglobin (Bld) [Mass/Vol] 10.7 g/dL Low 11.9 - 15.1 g/dL [facility] Immature granulocytes/100 WBC (Bld) 3 % High 0 [facility] Interpretation and review of laboratory results Abnormal [facility] Lymphocytes/100 WBC (Bld) 11 % Low 24 - 43 % [facility] MCH (RBC) [Entitic mass] 29.6 pg 25.2 - 33.5 pg [facility] MCHC (RBC) [Mass/Vol] 31.6 g/dL 28.4 - 34.8 g/dL [facility] MCV (RBC) [Entitic vol] 93.9 fL 82.6 - 102.9 fL [facility] Monocytes/100 WBC (Bld) 3 % 3 - 12 % [facility] NRBC Automated 0.2 High 0.0 per 100 WBC [facility] Platelet distribution width (Bld) [Ratio] 15.1 % High 11.8 - 14.4 % [facility] Platelet mean volume (Bld) [Entitic vol] 9.3 fL 8.1 - 13.5 fL [facility] Platelets (Bld) [#/Vol] 423 10*3/uL [facility] RBC (Bld) [#/Vol] 3.61 10*6/uL Low 3.95 - 5.1 1 m/uL [facility] Segmented neutrophils/100 WBC (Bld) 83 % High 36 - 65 % [facility] Segs Absolute 8.14 High [facility] WBC (Bld) [#/Vol] 9.9 10*3/uL [facility] Comprehensive Metabolic Pane markell 08-26-2021 Albumin [Mass/Vol] 3.1 g/dL Low 3.5 - 5.2 g/dL [facility] Albumin/Globulin [Mass ratio] 1.0 {ratio} [facility] ALP (Bld) [Catalytic activity/Vol] 166 U/L High 35 - 104 U/L [facility] ALT [Catalytic activity/Vol] U/L Low 5 - 33 U/L [facility] Anion gap [Moles/Vol] 7 mmol/L Low 9 - 17 mmol/L [facility] AST [Catalytic activity/Vol] 21 U/L <32 [facility] Bilirubin [Mass/Vol] 0.24 mg/dL Low 0.3 - 1 .2 mg/dL [facility] Calcium [Mass/Vol] 9.8 mg/dL 8.6 - 10. 4 mg/dL [facility] Chloride [Moles/Vol] 100 mmol/L 98 - 10 7 mmol/L [facility] CO2 [Moles/Vol] 30 mmol/L 20 - 31 mmol/L [facility] Creatinine [Mass/Vol] 0.34 mg/dL Low 0.50 - 0.90 mg/dL [facility] Free PSA/Total PSA [Mass fraction] 6.3 g/dL Low 6.4 - 8.3 g/dL [facility] GFR >60 >60 mL/min [facility] GFR Non- >60 >60 mL/min [facility] Glucose [Mass/Vol] 104 mg/dL High 70 - 99 mg/dL [facility] Interpretation and review of laboratory results Abnormal [facility] Potassium [Moles/Vol] 3.9 mmol/L 3.7 - 5.3 mmol/L [facility] Sodium [Moles/Vol] 137 mmol/L 135 - 144 mmol/L [facility] Urea nitrogen (BldV) [Mass/Vol] 7 mg/dL Low 8 - 23 mg/dL [facility] Urea nitrogen/Creatinine (Bld) [Mass ratio] 21 High [facility] Laboratory - Chemistry and C hemistry - challengeon 08-26-2021 GFR/1.73 sq M.predicted MDRD (S/P/Bld) [Vol rate/Area] [facility] Comment on above: Average GFR for 60-6 9 years old: 85 mL/min/1.73sq m Chronic Kidney Disease: <60 mL/min/1.73sq m Kidney failure: <15 mL/min/1.73sq m eGFR calculated using average adult body mass. Additional eGFR calculator available at: http://www.Writer.ly/multiple_crcl_2012.htm Stage 1: Some kidney damage normal GFR Stage 2: Mild kidney damage GFR 60-89 Stage 3: Moderate kidney damage GFR 30-59 Stage 4: Severe kidney damage GFR 15-29 Stage 5: Severe kidney damage GFR <15 ESRD - chronic treatment by dialysis or transplant Basic Metab w/rfx MGon 08-21 Potassium [Moles/Vol] 3.0 mmol/L Low 3.7-5.3 [facility] Comment on above: Performed By: #### C OVRB #### [facility] [address] [place] [id number] Printing Equipment Mechanic: Chriss Townsend MD (cont.) [facility] Comment on above: Result Comment: Aver age GFR for 60-69 years old: 85 mL/min/1.73sq m Chronic Kidney Disease: <60 mL/min/1.73sq m Kidney failure: <15 mL/min/1.73sq m eGFR calculated using average adult body mass. Additional eGFR calculator available at: http://www.Writer.ly/multiple_crcl_2012.htm Performed By: #### C OVRB #### [address] [id number] Printing Equipment Mechanic: Chriss Townsend MD Anion gap [Moles/Vol] 13 mmol/L Normal 9-17 [facility] Comment on above: Performed By: #### C OVRB #### [facility] [address] [place] [id number] Printing Equipment Mechanic: Chriss Townsend MD Calcium [Mass/Vol] 8.5 mg/dL Low 8.6-10.4 [facility] Comment on above: Performed By: #### C OVRB #### [facility] [employer] [address] [place] [address] [id number] Printing Equipment Mechanic: Chriss Townsend MD Chloride [Moles/Vol] 103 mmol/L Normal 98-107 [facility] Comment on above: Performed By: #### C OVRB #### [address] [id number] Printing Equipment Mechanic: Chriss Townsend MD CO2 [Moles/Vol] 23 mmol/L Normal 20-31 [facility] Comment on above: Performed By: #### C OVRB #### [address] [id number] Printing Equipment Mechanic: Chriss Townsend MD Creatinine [Mass/Vol] 0.28 mg/dL Low 0.50-0.90 [facility] Comment on above: Performed By: #### C OVRB #### [address] [id number] Printing Equipment Mechanic: Chriss Townsend MD GFR, Amer >60 Normal >60 [facility] Comment on above: Performed By: #### C OVRB #### [address] [id number] Printing Equipment Mechanic: Chriss Townsend MD GFR,non Amer >60 Normal >60 [facility] Comment on above: Performed By: #### C OVRB #### [address] [address] Printing Equipment Mechanic: Chriss Townsend MD Glucose [Mass/Vol] 79 mg/dL Normal 70-99 [facility] Comment on above: Performed By: #### C OVRB #### [address] [id number] Printing Equipment Mechanic: Chriss Townsend MD Sodium [Moles/Vol] 139 mmol/L Normal 135-144 [facility] Comment on above: Performed By: #### C OVRB #### [address] [id number] Printing Equipment Mechanic: Chriss Townsend MD Urea nitrogen [Mass/Vol] 5 mg/dL Low 8-23 [facility] Comment on above: Performed By: #### C OVRB #### [facility] [address] [phone] Printing Equipment Mechanic: Chriss Townsend MD Basic Metabolic Panel w/ Ref sujatha to MGon 08-21-2021 Anion gap [Moles/Vol] 13 mmol/L 9 - 17 mmol/L [facility] Calcium [Mass/Vol] 8.5 mg/dL Low 8.6 - 10. 4 mg/dL [facility] [employer] [place] Chloride [Moles/Vol] 103 mmol/L 98 - 10 7 mmol/L [facility] [employer] CO2 [Moles/Vol] 23 mmol/L 20 - 31 mmol/L [facility] Creatinine [Mass/Vol] 0.28 mg/dL Low 0.50 - 0.90 mg/dL [facility] GFR >60 >60 mL/min [facility] GFR Non- >60 >60 mL/min [facility] GFR/1.73 sq M.predicted MDRD (S/P/Bld) [Vol rate/Area] [facility] Comment on above: Average GFR for 60-6 9 years old: 85 mL/min/1.73sq m Chronic Kidney Disease: <60 mL/min/1.73sq m Kidney failure: <15 mL/min/1.73sq m eGFR calculated using average adult body mass. Additional eGFR calculator available at: http://www.[employer]/multiple_crcl_2011.htm Glucose [Mass/Vol] 79 mg/dL 70 - 99 mg/dL [facility] Interpretation and review of laboratory results Abnormal [facility] Potassium [Moles/Vol] 3.0 mmol/L Low 3.7 - 5.3 mmol/L [facility] Sodium [Moles/Vol] 139 mmol/L 135 - 144 mmol/L [facility] Urea nitrogen (BldV) [Mass/Vol] 5 mg/dL Low 8 - 23 mg/dL [facility] CBC with Auto Differentialon 08-21-2021 Absolute Eos # 0.23 [facility] Immature Granulocyte 0.53 High [facility] Absolute Lymph # 0.83 Low [facility] Absolute [place] # 0.15 [facility] Basophils (Bld) [#/Vol] 0.00 10*3/uL [facility] Basophils/100 WBC (Bld) 0 % 0 - 2 % [facility] Eosinophils/100 WBC (Bld) 3 % 1 - 4 % [facility] Hematocrit (Bld) [Volume fraction] 32.9 % Low 36.3 - 47.1 % [facility] Hemoglobin.gastrointe stinal spec 1 Ql (Stl) 10.6 g/dL Low 11.9 - 15.1 g/dL [facility] Immature granulocytes/100 WBC (Bld) 7 % High 0 [facility] Interpretation and review of laboratory results Abnormal [facility] Lymphocytes/100 WBC (Bld) 11 % Low 24 - 44 % [facility] MCH (RBC) [Entitic mass] 29.4 pg 25.2 - 33.5 pg [facility] MCHC (RBC) [Mass/Vol] 32.2 g/dL 28.4 - 34.8 g/dL [facility] MCV (RBC) [Entitic vol] 91.1 fL 82.6 - 102.9 fL [facility] Monocytes/100 WBC (Bld) 2 % 1 - 7 % [facility] Morphology Demetrio (Bld) [Interp] ANISOCYTOSIS PRESENT [facility] Morphology Demetrio (Bld) [Interp] 1+ POLYCHROMASIA [facility] NRBC Automated 0.0 0.0 per 100 WBC [facility] Platelet distribution width (Bld) [Ratio] 14.8 % High 11.8 - 14.4 % [facility] Platelet mean volume (Bld) [Entitic vol] 9.7 fL 8.1 - 13.5 fL [facility] Platelets (Bld) [#/Vol] 203 10*3/uL [facility] RBC (Bld) [#/Vol] 3.61 10*6/uL Low 3.95 - 5.1 1 m/uL [facility] RBC (Bld) [#/Vol] ANISOCYTOSIS PRESENT [facility] Segmented neutrophils/100 WBC (Bld) 77 % High 36 - 66 % [facility] Segs Absolute 5.76 [facility] WBC (Bld) [#/Vol] 7.5 10*3/uL [facility] CBC with Diffon 08-21-2021 Abs. Basophil 0.00 k/uL Normal 0.0-0.2 [facility] Comment on above: Performed By: #### C OVRB #### [address] [id number] [employer]ing Equipment Mechanic: Chriss Townsend MD Abs.Imm.Granulocyte 0.53 k/uL High 0.00-0.30 [facility] Comment on above: Performed By: #### C OVRB #### [address] [id number] [employer]ing Equipment Mechanic: Chriss Townsend MD Abs.Neutrophil (Seg) 5.76 k/uL Normal 1.8-7.7 [facility] Comment on above: Performed By: #### C OVRB #### [address] [id number] [employer]ing Equipment Mechanic: Chriss Townsend MD Basophils/100 WBC (Bld) 0 % Normal 0-2 [facility] Comment on above: Performed By: #### C OVRB #### [address] [id number] [employer] Equipment Mechanic: Chriss Townsend MD Eosinophils (Bld) [#/Vol] 0.23 10*3/uL Normal 0.0-0.4 [facility] Comment on above: Performed By: #### C OVRB #### [address] [id number] [employer] Mechanic: Chriss Townsend MD Eosinophils/100 WBC (Bld) 3 % Normal 1-4 [facility] Comment on above: Performed By: #### C OVRB #### [address] [address] Printing Equipment Mechanic: Chriss Townsend MD Immature granulocytes/100 WBC (Bld) 7 % High 0 [facility] Comment on above: Performed By: #### C OVRB #### [address] [address] Printing Equipment Mechanic: Chriss Townsend MD Lymphocytes (Bld) [#/Vol] 0.83 10*3/uL Low 1.0-4.8 [facility] Comment on above: Performed By: #### C OVRB #### [address] [address] Printing Equipment Mechanic: Chriss Townsend MD Lymphocytes/100 WBC (Bld) 11 % Low 24-44 [facility] Comment on above: Performed By: #### C OVRB #### [address] [address] Printing Equipment Mechanic: Chriss Townsend MD Monocytes (Bld) [#/Vol] 0.15 10*3/uL Normal 0.1-0.8 [facility] Comment on above: Performed By: #### C OVRB #### [address] [address] Printing Equipment Mechanic: Chriss Townsend MD Monocytes/100 WBC (Bld) 2 % Normal 1-7 [facility] Comment on above: Performed By: #### C OVRB #### [address] [address] Printing Equipment Mechanic: Chriss Townsend MD Morphology Demetrio (Bld) [Interp] ANISOCYTOSIS PRESENT Normal [facility] Comment on above: Result Comment: 1+ POLYCHROMASIA Performed By: #### C OVRB #### [address] [address] Printing Equipment Mechanic: Chriss Townsend MD Neutrophil (Seg) 77 % High 36-66 [facility] Comment on above: Performed By: #### C OVRB #### [address] [address] Printing Equipment Mechanic: Chriss Townsend MD Erythrocyte distribution width (RBC) [Ratio] 14.8 % High 11.8-14.4 [facility] Comment on above: Performed By: #### C OVRB #### [address] [address] Printing Equipment Mechanic: Chriss Townsend MD Hematocrit (Bld) [Volume fraction] 32.9 % Low 36.3-47.1 [facility] Comment on above: Performed By: #### C OVRB #### [address] [address] Printing Equipment Mechanic: Chriss Townsend MD Hemoglobin (Bld) [Mass/Vol] 10.6 g/dL Low 11.9-15.1 [facility] Comment on above: Performed By: #### C OVRB #### [address] [address] Printing Equipment Mechanic: Chriss Townsend MD MCH (RBC) [Entitic mass] 29.4 pg Normal 25.2-33.5 [facility] Comment on above: Performed By: #### C OVRB #### [address] [address] Printing Equipment Mechanic: Chriss Townsend MD MCHC (RBC) [Mass/Vol] 32.2 g/dL Normal 28.4-34.8 [facility] Comment on above: Performed By: #### C OVRB #### [address] [address] Printing Equipment Mechanic: Chriss Townsend MD MCV (RBC) [Entitic vol] 91.1 fL Normal 82.6-102.9 [facility] Comment on above: Performed By: #### C OVRB #### [address] [address] Printing Equipment Mechanic: Chriss Townsend MD NRBC Automated 0.0 per 100 WBC Normal 0.0 [facility] Comment on above: Performed By: #### C OVRB #### [address] [address] Printing Equipment Mechanic: Chriss Townsend MD Platelet mean volume (Bld) [Entitic vol] 9.7 fL Normal 8.1-13.5 [facility] Comment on above: Performed By: #### C OVRB #### [address] [address] Printing Equipment Mechanic: Chriss Townsend MD Platelets (Bld) [#/Vol] 203 10*3/uL Normal 138-453 [facility] Comment on above: Performed By: #### C OVRB #### [address] [address] Printing Equipment Mechanic: Chriss Townsend MD RBC (Bld) [#/Vol] 3.61 10*6/uL Low 3.95-5.11 [facility] Comment on above: Performed By: #### C OVRB #### [address] [address] Printing Equipment Mechanic: Chriss Townsend MD RBC morphology finding Nom (Bld) ANISOCYTOSIS PRESENT Normal [facility] Comment on above: Performed By: #### C OVRB #### [address] [address] Printing Equipment Mechanic: Chriss Townsend MD WBC (Bld) [#/Vol] 7.5 10*3/uL Normal 3.5-11.3 [facility] Comment on above: Performed By: #### C OVRB #### [facility] [address] [place], [place] [phone] Printing Equipment Mechanic: Chriss Townsend MD Cult,Bloodon 08-21-2021 Cult,Blood Specimen Description .BLOOD Special Requests L WRIST 1 ML Culture NO GROWTH 5 DAYS Report Status FINAL 08/21/2021 [facility] Comment on above: Performed By: #### C RP CDP, SED #### [employer], [place] [phone] Printing Equipment Mechanic: Chriss Townsend MD Cult,Blood Specimen Description .BLOOD Culture NO GROWTH 5 DAYS Report Status FINAL 08/21/2021 [facility] Comment on above: Performed By: #### C RP CDP, SED #### [facility] [address] [place] [address] [phone] Printing Equipment Mechanic: Chriss Townsend MD Culture, Blood 1on 2 Bacteria identified Cx Nom (Unsp spec) NO GROWTH 5 DAYS [facility] [employer] Special Requests L WRIST 1 ML [facility] [employer] Specimen Description .BLOOD [facility] Bacteria identified Cx Nom (Unsp spec) NO GROWTH 5 DAYS [facility] [employer] Specimen Description .BLOOD [facility] [employer] Magnesiumon 08-21-2021 Magnesium [Mass/Vol] 1.8 mg/dL Normal 1.6-2.6 [facility] Comment on above: Performed By: #### C OVRB #### [employer] [facility], [place] [phone] Printing Equipment Mechanic: Chriss Townsend MD Magnesium [Mass/Vol] 1.8 mg/dL 1.6 - 2 .6 mg/dL [facility] [employer] [facility] [employer] No Panel Informationon 08-21 Venu De La Garza RN 08/21/2021 9:37 AM Picc placement order: Benefits include stable, vermin exterminator intravenous access. Blood draws. Peripheral vein preservation. [...] out Performed using [employer] Lot #: [id number] Expiration date: 07/20/2022 Catheter size: 4.5 setswana Total length: 45cm Total length inserted: 45cm [...] with an education handout on catheter insertion. [facility] FAQ Catheter Associated Blood Stream Infections and [facility] [id number] REV. 10/02 Nursing and Booklet left at bedside or in chart. Patient (Family or POA) acknowledged understanding of information taught and agreed to procedure. [employer] Work Phone: Tip Confirmation System (TCS ) and/ or Chest Xray for tip confirmationon 08-21-2021 [employer] Phone: Basic Metab w/rfx MGon 08-20 Potassium [Moles/Vol] 2.8 mmol/L Critically low 3.7-5.3 [facility] Comment on above: Performed By: #### C RP, CDP, SED #### [facility] [address] [place] [phone] Printing Equipment Mechanic: Chriss Townsend MD (cont.) Normal [facility] Comment on above: Result Comment: Aver age GFR for 60-69 years old: 85 mL/min/1.73sq m Chronic Kidney Disease: <60 mL/min/1.73sq m Kidney failure: <15 mL/min/1.73sq m eGFR calculated using average adult body mass. Additional eGFR calculator available at: http://www.Writer.ly/multiple_crcl_2012.htm Performed By: #### C RP, CDP, SED #### [address] [address] Printing Equipment Mechanic: Chriss Townsend MD Anion gap [Moles/Vol] 11 mmol/L Normal 9-17 [facility] Comment on above: Performed By: #### C RP, CDP, SED #### [address] [address] Printing Equipment Mechanic: Chriss Townsend MD Calcium [Mass/Vol] 8.8 mg/dL Normal 8.6-10.4 [facility] Comment on above: Performed By: #### C RP, CDP, SED #### [facility] [employer] [address] [place] [address] Printing Equipment Mechanic: Chriss Townsend MD Chloride [Moles/Vol] 103 mmol/L Normal 98-107 [facility] Comment on above: Performed By: #### C RP, CDP, SED #### [facility] [employer] [address] [place] [phone] Printing Equipment Mechanic: Chriss Townsend MD CO2 [Moles/Vol] 24 mmol/L Normal 20-31 [facility] Comment on above: Performed By: #### C RP, CDP, SED #### [facility] [employer] [address] [place] [phone] Printing Equipment Mechanic: Chirss Townsend MD Creatinine [Mass/Vol] 0.34 mg/dL Low 0.50-0.90 [facility] Comment on above: Performed By: #### C RP, CDP, SED #### [facility] [address] [place] [address] Printing Equipment Mechanic: Chriss Townsend MD GFR, Amer >60 Normal >60 [facility] Comment on above: Performed By: #### C RP, CDP, SED #### [facility] [address] [place] [address] Printing Equipment Mechanic: Chriss Townsend MD GFR,non Amer >60 Normal >60 [facility] Comment on above: Performed By: #### C RP, CDP, SED #### [facility] [address] [place] [address] Printing Equipment Mechanic: Chriss Townsend MD Glucose [Mass/Vol] 87 mg/dL Normal 70-99 [facility] Comment on above: Performed By: #### C RP, CDP, SED #### [facility] [employer] [address] [place] [address] Printing Equipment Mechanic: Chriss Townsend MD Sodium [Moles/Vol] 138 mmol/L Normal 135-144 [facility] Comment on above: Performed By: #### C RP, CDP, SED #### [facility] [employer] [address] [place] [address] Printing Equipment Mechanic: Chriss Townsend MD Urea nitrogen [Mass/Vol] 7 mg/dL Low 8-23 [facility] Comment on above: Performed By: #### C RP, CDP, SED #### [facility] [employer] [address] [place] [phone] Printing Equipment Mechanic: Chriss Townsend MD Basic Metabolic Panel w/ Ref sujatha to MG 08-20-2021 Anion gap [Moles/Vol] 11 mmol/L 9 - 17 mmol/L [facility] Calcium [Mass/Vol] 8.8 mg/dL 8.6 - 10. 4 mg/dL [facility] Chloride [Moles/Vol] 103 mmol/L 98 - 10 7 mmol/L [facility] CO2 [Moles/Vol] 24 mmol/L 20 - 31 mmol/L [facility] Creatinine [Mass/Vol] 0.34 mg/dL Low 0.50 - 0.90 mg/dL [facility] GFR >60 >60 mL/min [facility] GFR Non- >60 >60 mL/min [facility] GFR/1.73 sq M.predicted MDRD (S/P/Bld) [Vol rate/Area] [facility] Comment on above: Average GFR for 60-6 9 years old: 85 mL/min/1.73sq m Chronic Kidney Disease: <60 mL/min/1.73sq m Kidney failure: <15 mL/min/1.73sq m eGFR calculated using average adult body mass. Additional eGFR calculator available at: http://www.Writer.ly/multiple_crcl_2011.htm Glucose [Mass/Vol] 87 mg/dL 70 - 99 mg/dL [facility] Interpretation and review of laboratory results Abnormal [facility] Potassium [Moles/Vol] 2.8 mmol/L Critically low 3.7 - 5.3 mmol/L [facility] Sodium [Moles/Vol] 138 mmol/L 135 - 144 mmol/L [facility] Urea nitrogen (BldV) [Mass/Vol] 7 mg/dL Low 8 - 23 mg/dL [facility] C-Reactive Proteinon 08-20- 022 CRP [Mass/Vol] 151.9 mg/L High 0.0-5.0 [facility] Comment on above: Performed By: #### C RP, CDP, SED #### [facility] [address] [place] [address] Printing Equipment Mechanic: Chriss Townsend MD CRP [Mass/Vol] 151.9 mg/L High 0.0 - 5.0 mg/L [facility] Interpretation and review of laboratory results Abnormal [facility] CBC with Auto Differentialon 08-20-2021 Absolute Eos # 0.00 [facility] Absolute Immature Granulocyte 0.00 [facility] Absolute Lymph # 0.64 Low [facility] Absolute [place] # 0.37 [facility] Basophils (Bld) [#/Vol] 0.00 10*3/uL [facility] Basophils/100 WBC (Bld) 0 % 0 - 2 % [facility] Eosinophils/100 WBC (Bld) 0 % Low 1 - 4 % [facility] Hematocrit (Bld) [Volume fraction] 33.6 % Low 36.3 - 47.1 % [facility] Hemoglobin.gastrointe stinal spec 1 Ql (Stl) 10.8 g/dL Low 11.9 - 15.1 g/dL [facility] Immature granulocytes/100 WBC (Bld) 0 % 0 [facility] Interpretation and review of laboratory results Abnormal [facility] Lymphocytes/100 WBC (Bld) 7 % Low 24 - 44 % [facility] MCH (RBC) [Entitic mass] 29.9 pg 25.2 - 33.5 pg [facility] MCHC (RBC) [Mass/Vol] 32.1 g/dL 28.4 - 34.8 g/dL [facility] MCV (RBC) [Entitic vol] 93.1 fL 82.6 - 102.9 fL [facility] Monocytes/100 WBC (Bld) 4 % 1 - 7 % [facility] Morphology Demetrio (Bld) [Interp] ANISOCYTOSIS PRESENT [facility] NRBC Automated 0.0 0.0 per 100 WBC [facility] Platelet distribution width (Bld) [Ratio] 14.6 % High 11.8 - 14.4 % [facility] Platelet mean volume (Bld) [Entitic vol] 9.6 fL 8.1 - 13.5 fL [facility] Platelets (Bld) [#/Vol] 169 10*3/uL [facility] RBC (Bld) [#/Vol] 3.61 10*6/uL Low 3.95 - 5.1 1 m/uL [facility] Segmented neutrophils/100 WBC (Bld) 89 % High 36 - 66 % [facility] Segs Absolute 8.19 High [facility] WBC (Bld) [#/Vol] 9.2 10*3/uL [facility] CBC with Diffon 08-20-2021 Abs. Basophil 0.00 k/uL Normal 0.0-0.2 [facility] Comment on above: Performed By: #### C RP, CDP, SED #### [employer] [address] [place] [address] Printing Equipment Mechanic: Chriss Townsend MD Abs.Imm.Granulocyte 0.00 k/uL Normal 0.00-0.30 [facility] Comment on above: Performed By: #### C RP, CDP, SED #### [facility] [employer] [address] [place] [phone] Printing Equipment Mechanic: Chriss Townsend MD Abs.Neutrophil (Seg) 8.19 k/uL High 1.8-7.7 [facility] Comment on above: Performed By: #### C RP, CDP, SED #### [facility] [address] [place] [address] Printing Equipment Mechanic: Chriss Townsend MD Basophils/100 WBC (Bld) 0 % Normal 0-2 [facility] Comment on above: Performed By: #### C RP, CDP, SED #### [facility] [address] [place] [phone] Printing Equipment Mechanic: Chriss Townsend MD Eosinophils (Bld) [#/Vol] 0.00 10*3/uL Normal 0.0-0.4 [facility] Comment on above: Performed By: #### C RP, CDP, SED #### [employer] [address] [place] [address] Printing Equipment Mechanic: Chriss Townsend MD Eosinophils/100 WBC (Bld) 0 % Low 1-4 [facility] Comment on above: Performed By: #### C RP, CDP, SED #### [address] [address] Printing Equipment Mechanic: Chriss Townsend MD Immature granulocytes/100 WBC (Bld) 0 % Normal 0 [facility] Comment on above: Performed By: #### C RP, CDP, SED #### [place] [address] Printing Equipment Mechanic: Chriss Townsend MD Lymphocytes (Bld) [#/Vol] 0.64 10*3/uL Low 1.0-4.8 [facility] Comment on above: Performed By: #### C RP, CDP, SED #### [address] [address] Printing Equipment Mechanic: Chriss Townsend MD Lymphocytes/100 WBC (Bld) 7 % Low 24-44 [facility] Comment on above: Performed By: #### C RP, CDP, SED #### [place] [address] Printing Equipment Mechanic: Chriss Townsend MD Monocytes (Bld) [#/Vol] 0.37 10*3/uL Normal 0.1-0.8 [facility] Comment on above: Performed By: #### C RP, CDP, SED #### [place] [address] Printing Equipment Mechanic: Chriss Townsend MD Monocytes/100 WBC (Bld) 4 % Normal 1-7 [facility] Comment on above: Performed By: #### C RP, CDP, SED #### [address] [address] Printing Equipment Mechanic: Chriss Townsend MD Morphology Demetrio (Bld) [Interp] ANISOCYTOSIS PRESENT Normal [facility] Comment on above: Performed By: #### C RP, CDP, SED #### [address] [place] [address] Printing Equipment Mechanic: Chriss Townsend MD Neutrophil (Seg) 89 % High 36-66 [facility] Comment on above: Performed By: #### C RP, CDP, SED #### [address] [address] Printing Equipment Mechanic: Chriss Townsend MD Erythrocyte distribution width (RBC) [Ratio] 14.6 % High 11.8-14.4 [facility] Comment on above: Performed By: #### C RP, CDP, SED #### [facility] [employer] [address] [place] [address] Printing Equipment Mechanic: Chriss Townsend MD Hematocrit (Bld) [Volume fraction] 33.6 % Low 36.3-47.1 [facility] Comment on above: Performed By: #### C RP, CDP, SED #### [facility] [employer] [address] [place] [phone] Printing Equipment Mechanic: Chriss Townsend MD Hemoglobin (Bld) [Mass/Vol] 10.8 g/dL Low 11.9-15.1 [facility] Comment on above: Performed By: #### C RP, CDP, SED #### [facility] [employer] [address] [place] [address] Printing Equipment Mechanic: Chriss Townsend MD MCH (RBC) [Entitic mass] 29.9 pg Normal 25.2-33.5 [facility] Comment on above: Performed By: #### C RP, CDP, SED #### [facility] [employer] [address] [place] [address] Printing Equipment Mechanic: Chriss Townsend MD MCHC (RBC) [Mass/Vol] 32.1 g/dL Normal 28.4-34.8 [facility] Comment on above: Performed By: #### C RP, CDP, SED #### [facility] [employer] [address] [place] [phone] Printing Equipment Mechanic: Chriss Townsend MD MCV (RBC) [Entitic vol] 93.1 fL Normal 82.6-102.9 [facility] Comment on above: Performed By: #### C RP, CDP, SED #### [address] [address] Printing Equipment Mechanic: Chriss Townsend MD NRBC Automated 0.0 per 100 WBC Normal 0.0 [facility] Comment on above: Performed By: #### C RP, CDP, SED #### [address] [address] Printing Equipment Mechanic: Chriss Townsend MD Platelet mean volume (Bld) [Entitic vol] 9.6 fL Normal 8.1-13.5 [facility] Comment on above: Performed By: #### C RP, CDP, SED #### [address] [address] Printing Equipment Mechanic: Chriss Townsend MD Platelets (Bld) [#/Vol] 169 10*3/uL Normal 138-453 [facility] Comment on above: Performed By: #### C RP, CDP, SED #### [address] [address] Printing Equipment Mechanic: Chriss Townsend MD RBC (Bld) [#/Vol] 3.61 10*6/uL Low 3.95-5.11 [facility] Comment on above: Performed By: #### C RP, CDP, SED #### [address] [address] Printing Equipment Mechanic: Chriss Townsend MD WBC (Bld) [#/Vol] 9.2 10*3/uL Normal 3.5-11.3 [facility] Comment on above: Performed By: #### C RP, CDP, SED #### [address] [address] Printing Equipment Mechanic: Chriss Townsend MD CT RADIUS ULNA RIGHT [...] Jett Dumont MD 08/20/21 Final result Normal [facility] Very limited exam. Subcutaneous edema about [...] noted at the right posterior lung base. [facility] RIS CONSOLIDATED Jett Dumont MD - [...] at the dependent posterior right lung base. [employer] Work Phone: CT RADIUS ULNA RIGHT W CONTR ASTOrdered By: Jett Dumont on 08-20-2021 [employer] Work Phone: Crystals, Body Fluidon 08-20 Crystals, Fluid Negative NEGATIVE [employer] Comment on above: NO CRYSTALS SEEN Specimen type Nom (Spec) .SHOULDER [facility] [employer] Comment on above: RIGHT JOINT FLUID [employer] Crystals, Fluidson 2 Crystals,Fluid Negative Normal NEG [facility] Comment on above: Result Comment: NO C RYSTALS SEEN Performed By: #### F LCRYS, BFCNT #### [facility] [address] [phone] Printing Equipment Mechanic: Chriss Townsend MD Magnesiumon 08-20-2021 Magnesium [Mass/Vol] 2.0 mg/dL Normal 1.6-2.6 [facility] Comment on above: Performed By: #### C RP, CDP, SED #### [facility] [employer] [address] [place] [phone] Printing Equipment Mechanic: Chriss Townsend MD Magnesium [Mass/Vol] 2.0 mg/dL 1.6 - 2 .6 mg/dL [facility] Basic Metab w/rfx MGon 08-19 (cont.) Normal [facility] Comment on above: Result Comment: Aver age GFR for 60-69 years old: 85 mL/min/1.73sq m Chronic Kidney Disease: <60 mL/min/1.73sq m Kidney failure: <15 mL/min/1.73sq m eGFR calculated using average adult body mass. Additional eGFR calculator available at: http://www.Writer.ly/multiple_crcl_2012.htm Performed By: #### C RP, CDP, SED #### [facility] [employer] [address] [place] [address] [phone] Printing Equipment Mechanic: Chriss Townsend MD Anion gap [Moles/Vol] 12 mmol/L Normal 9-17 [facility] Comment on above: Performed By: #### C RP, CDP, SED #### [facility] [address] [place] [address] [phone] Printing Equipment Mechanic: Chriss Townsend MD Calcium [Mass/Vol] 8.7 mg/dL Normal 8.6-10.4 [facility] Comment on above: Performed By: #### C RP, CDP, SED #### [facility] [address] [place] [address] [phone] Printing Equipment Mechanic: Chriss Townsend MD Chloride [Moles/Vol] 106 mmol/L Normal 98-107 [facility] Comment on above: Performed By: #### C RP, CDP, SED #### [facility] [address] [place] [address] Printing Equipment Mechanic: Chriss Townsend MD CO2 [Moles/Vol] 24 mmol/L Normal 20-31 [facility] Comment on above: Performed By: #### C RP, CDP, SED #### [facility] [address] [place] [address] Printing Equipment Mechanic: Chriss Townsend MD Creatinine [Mass/Vol] 0.38 mg/dL Low 0.50-0.90 [facility] Comment on above: Performed By: #### C RP, CDP, SED #### [facility] [address] [place] [address] [employer]ing Equipment Mechanic: Chriss Townsend MD GFR, Amer >60 Normal >60 [facility] Comment on above: Performed By: #### C RP, CDP, SED #### [facility] [address] [place] [phone] [employer]ing Equipment Mechanic: Chriss Townsend MD GFR,non Amer >60 Normal >60 [facility] Comment on above: Performed By: #### C RP, CDP, SED #### [facility] [address] [place] [address] Printing Equipment Mechanic: Chriss Townsend MD Glucose [Mass/Vol] 81 mg/dL Normal 70-99 [facility] Comment on above: Performed By: #### C RP, CDP, SED #### [facility] [address] [place] [phone] Printing Equipment Mechanic: Chriss Townsend MD Potassium [Moles/Vol] 3.0 mmol/L Low 3.7-5.3 [facility] Comment on above: Performed By: #### C RP, CDP, SED #### [facility] [address] [place] [address] [employer]ing Equipment Mechanic: Chriss Townsend MD Sodium [Moles/Vol] 142 mmol/L Normal 135-144 [facility] Comment on above: Performed By: #### C RP, CDP, SED #### [employer] [address], [place] [phone] Printing Equipment Mechanic: Chriss Townsend MD Urea nitrogen [Mass/Vol] 11 mg/dL Normal 8-23 [facility] Comment on above: Performed By: #### C RP, CDP, SED #### [employer] [address], [place] [phone] Printing Equipment Mechanic: Chriss Townsend MD Basic Metabolic Panel w/ Ref sujatha to on 08-19-2021 Anion gap [Moles/Vol] 12 mmol/L 9 - 17 mmol/L [employer] Calcium [Mass/Vol] 8.7 mg/dL 8.6 - 10. 4 mg/dL [facility]60mo Chloride [Moles/Vol] 106 mmol/L 98 - 10 7 mmol/L [facility]60mo CO2 [Moles/Vol] 24 mmol/L 20 - 31 mmol/L [employer] [facility]60mo Creatinine [Mass/Vol] 0.38 mg/dL Low 0.50 - 0.90 mg/dL [employer] GFR >60 >60 mL/min [facility] [employer] GFR Non- >60 >60 mL/min [employer] Technologies [facility]60mo GFR/1.73 sq M.predicted MDRD (S/P/Bld) [Vol rate/Area] [facility] Comment on above: Average GFR for 60-6 9 years old: 85 mL/min/1.73sq m Chronic Kidney Disease: <60 mL/min/1.73sq m Kidney failure: <15 mL/min/1.73sq m eGFR calculated using average adult body mass. Additional eGFR calculator available at: http://www.[employer].L[employer]/multiple_crcl_2012.htm Glucose [Mass/Vol] 81 mg/dL 70 - 99 mg/dL [facility] [employer] Interpretation and review of laboratory results Abnormal [facility]60mo Potassium [Moles/Vol] 3.0 mmol/L Low 3.7 - 5.3 mmol/L [facility] Sodium [Moles/Vol] 142 mmol/L 135 - 144 mmol/L [facility] Urea nitrogen (BldV) [Mass/Vol] 11 mg/dL 8 - 23 mg/dL [facility] CBC with Auto Differentialon 08-19-2021 Absolute Eos # <0.03 [facility] Absolute Immature Granulocyte 0.27 [facility] Absolute Lymph # 0.75 Low [facility] Absolute [place] # 0.25 [facility] Basophils (Bld) [#/Vol] 0.03 10*3/uL [facility] Basophils/100 WBC (Bld) 0 % 0 - 2 % [facility] Eosinophils/100 WBC (Bld) 0 % Low 1 - 4 % [facility] Hematocrit (Bld) [Volume fraction] 36.0 % Low 36.3 - 47.1 % [facility] Hemoglobin.gastrointe stinal spec 1 Ql (Stl) 10.9 g/dL Low 11.9 - 15.1 g/dL [facility] Immature granulocytes/100 WBC (Bld) 3 % High 0 [facility] Interpretation and review of laboratory results Abnormal [facility] Lymphocytes/100 WBC (Bld) 8 % Low 24 - 43 % [facility] MCH (RBC) [Entitic mass] 28.9 pg 25.2 - 33.5 pg [facility] MCHC (RBC) [Mass/Vol] 30.3 g/dL 28.4 - 34.8 g/dL [facility] MCV (RBC) [Entitic vol] 95.5 fL 82.6 - 102.9 fL [facility] Monocytes/100 WBC (Bld) 3 % 3 - 12 % [facility] NRBC Automated 0.0 0.0 per 100 WBC [facility] Platelet distribution width (Bld) [Ratio] 14.4 % 11.8 - 14.4 % [facility] Platelet mean volume (Bld) [Entitic vol] 9.6 fL 8.1 - 13.5 fL [facility] Platelets (Bld) [#/Vol] 177 10*3/uL [facility] RBC (Bld) [#/Vol] 3.77 10*6/uL Low 3.95 - 5.1 1 m/uL [facility] Segmented neutrophils/100 WBC (Bld) 86 % High 36 - 65 % [facility] Segs Absolute 8.21 High [facility] WBC (Bld) [#/Vol] 9.5 10*3/uL [facility] CBC with Diffon 08-19-2021 Abs. Basophil 0.03 k/uL Normal 0.00-0.20 [facility] Comment on above: Performed By: #### C RP, CDP, SED #### [place] [address] Printing Equipment Mechanic: Chriss Townsend MD Abs. Eosinophil <0.03 Normal 0.00-0.44 [facility] Comment on above: Performed By: #### C RP, CDP, SED #### [facility] [employer] [address] [place] [address] Printing Equipment Mechanic: Chriss Townsend MD Abs.Imm.Granulocyte 0.27 k/uL Normal 0.00-0.30 [facility] Comment on above: Performed By: #### C RP, CDP, SED #### [facility] [employer] [address] [place] [address] Printing Equipment Mechanic: Chriss Townsend MD Abs.Neutrophil (Seg) 8.21 k/uL High 1.50-8.10 [facility] Comment on above: Performed By: #### C RP, CDP, SED #### [facility] [employer] [address] [place] [address] Printing Equipment Mechanic: Chriss Townsend MD Basophils/100 WBC (Bld) 0 % Normal 0-2 [facility] Comment on above: Performed By: #### C RP, CDP, SED #### [facility] [employer] [address] [place], [place] [phone] Printing Equipment Mechanic: Chriss Townsend MD Eosinophils/100 WBC (Bld) 0 % Low 1-4 [facility] Comment on above: Performed By: #### C RP, CDP, SED #### [facility] [address] [place] [phone] [employer]ing Equipment Mechanic: Chriss Townsend MD Erythrocyte distribution width (RBC) [Ratio] 14.4 % Normal 11.8-14.4 [facility] Comment on above: Performed By: #### C RP, CDP, SED #### [facility] [address] [place] [phone] [employer]ing Equipment Mechanic: Chriss Townsend MD Hematocrit (Bld) [Volume fraction] 36.0 % Low 36.3-47.1 [facility] Comment on above: Performed By: #### C RP, CDP, SED #### [facility] [employer] [address] [place] [phone] [employer]ing Equipment Mechanic: Chriss Townsend MD Hemoglobin (Bld) [Mass/Vol] 10.9 g/dL Low 11.9-15.1 [facility] Comment on above: Performed By: #### C RP, CDP, SED #### [facility] [employer] [address] [place] [phone] [employer]ing Equipment Mechanic: Chriss Townsend MD Immature granulocytes/100 WBC (Bld) 3 % High 0 [facility] Comment on above: Performed By: #### C RP, CDP, SED #### [facility] [address] [place] [phone] Printing Equipment Mechanic: Chriss Townsend MD Lymphocytes (Bld) [#/Vol] 0.75 10*3/uL Low 1.10-3.70 [facility] Comment on above: Performed By: #### C RP, CDP, SED #### [facility] [address] [place] [phone] [employer]ing Equipment Mechanic: Chriss Townsend MD Lymphocytes/100 WBC (Bld) 8 % Low 24-43 [facility] Comment on above: Performed By: #### C RP, CDP, SED #### [address] [address] Printing Equipment Mechanic: Chriss Townsend MD MCH (RBC) [Entitic mass] 28.9 pg Normal 25.2-33.5 [facility] Comment on above: Performed By: #### C RP, CDP, SED #### [address] [address] Printing Equipment Mechanic: Chriss Townsend MD MCHC (RBC) [Mass/Vol] 30.3 g/dL Normal 28.4-34.8 [facility] Comment on above: Performed By: #### C RP, CDP, SED #### [place] [address] [employer]ing Equipment Mechanic: Chriss Townsend MD MCV (RBC) [Entitic vol] 95.5 fL Normal 82.6-102.9 [facility] Comment on above: Performed By: #### C RP, CDP, SED #### [address] [address] Printing Equipment Mechanic: Chriss Townsend MD Monocytes (Bld) [#/Vol] 0.25 10*3/uL Normal 0.10-1.20 [facility] Comment on above: Performed By: #### C RP, CDP, SED #### [address] [address] [employer]ing Equipment Mechanic: Chriss Townsend MD Monocytes/100 WBC (Bld) 3 % Normal 3-12 [facility] Comment on above: Performed By: #### C RP, CDP, SED #### [address] [address] Printing Equipment Mechanic: Chriss Townsend MD Neutrophil (Seg) 86 % High 36-65 [facility] Comment on above: Performed By: #### C RP, CDP, SED #### [address] [address] Printing Equipment Mechanic: Chriss Townsend MD NRBC Automated 0.0 per 100 WBC Normal 0.0 [facility] Comment on above: Performed By: #### C RP, CDP, SED #### [address] [address] Printing Equipment Mechanic: Chriss Townsend MD Platelet mean volume (Bld) [Entitic vol] 9.6 fL Normal 8.1-13.5 [facility] Comment on above: Performed By: #### C RP, CDP, SED #### [address] [address] Printing Equipment Mechanic: Chriss Townsend MD Platelets (Bld) [#/Vol] 177 10*3/uL Normal 138-453 [facility] Comment on above: Performed By: #### C RP, CDP, SED #### [address] [address] Printing Equipment Mechanic: Chriss Townsend MD RBC (Bld) [#/Vol] 3.77 10*6/uL Low 3.95-5.11 [facility] Comment on above: Performed By: #### C RP, CDP, SED #### [address] [address] Printing Equipment Mechanic: Chriss Townsend MD WBC (Bld) [#/Vol] 9.5 10*3/uL Normal 3.5-11.3 [facility] Comment on above: Performed By: #### C RP, CDP, SED #### [address] [address] Printing Equipment Mechanic: Chriss Townsend MD Cult,Aerobe/Anaerobeon 08-19 Cult,Aerobe/Anaerobe Specimen [...] Tetracycline <=1 SUSCEPTIBLE Trimethoprim/Sulfa <=10 SUSCEPTIBLE Susceptible [facility] Comment on above: Performed By: #### C MARC, SEBASTIAN, SED #### [facility] [employer] [address] [place] [address] Printing Equipment Mechanic: Chriss Townsend MD Cult,Aerobe/Anaerobe Specimen Descriptio n [...] Tetracycline <=1 SUSCEPTIBLE Trimethoprim/Sulfa <=10 SUSCEPTIBLE Susceptible [facility] Comment on above: Performed By: #### C RP, CDP, SED #### [facility] [employer] [address] [place] [address] Printing Equipment Mechanic: Chriss Townsend MD Culture, Anaerobic and Aerob icon 08-19-2021 Bacteria identified Cx Nom (Unsp spec) STAPHYLOCOCCUS AUREUS LIGHT GROWTH This isolate is methicillin susceptible. Abnormal [facility] Bacteria identified Cx Nom (Unsp spec) CALLED TO TERRI Hensley 08/17/21 13:40 [facility] Bacteria identified Cx Nom (Unsp spec) No anaerobic organisms isolated at 5 days. [facility] Direct Exam MODERATE NEUTROPHILS Abnormal [facility] Direct Exam NO BACTERIA SEEN [facility] Interpretation and review of laboratory results Abnormal [facility] Specimen Description .SHOULDER RIGHT [facility] Magnesiumon 08-19-2021 Magnesium [Mass/Vol] 1.7 mg/dL Normal 1.6-2.6 [facility] Comment on above: Performed By: #### C OVRB #### [employer] [address] [place] [address] [phone] Printing Equipment Mechanic: Chriss Townsend MD Magnesium [Mass/Vol] 1.7 mg/dL 1.6 - 2 .6 mg/dL [facility] Basic Metab w/rfx MGon 08-18 (cont.) Normal [facility] Comment on above: Result Comment: Aver age GFR for 60-69 years old: 85 mL/min/1.73sq m Chronic Kidney Disease: <60 mL/min/1.73sq m Kidney failure: <15 mL/min/1.73sq m eGFR calculated using average adult body mass. Additional eGFR calculator available at: http://www.[employer].Ligon Discovery/multiple_crcl_2012.htm Performed By: #### C RP, CDP, SED #### [employer] [address] [place] [address] Printing Equipment Mechanic: Chriss Townsend MD Anion gap [Moles/Vol] 9 mmol/L Normal 9-17 [facility] Comment on above: Performed By: #### C RP, CDP, SED #### [employer] [address] [place] [phone] Printing Equipment Mechanic: Chriss Townsend MD Calcium [Mass/Vol] 9.4 mg/dL Normal 8.6-10.4 [facility] Comment on above: Performed By: #### C RP, CDP, SED #### [facility] [address] [place] [phone] Printing Equipment Mechanic: Chriss Townsend MD Chloride [Moles/Vol] 107 mmol/L Normal 98-107 [facility] Comment on above: Performed By: #### C RP, CDP, SED #### [facility] [address] [place] [address] [employer]ing Equipment Mechanic: Chriss Townsend MD CO2 [Moles/Vol] 21 mmol/L Normal 20-31 [facility] Comment on above: Performed By: #### C RP, CDP, SED #### [facility] [address] [place] [phone] Printing Equipment Mechanic: Chriss Townsend MD Creatinine [Mass/Vol] 0.42 mg/dL Low 0.50-0.90 [facility] Comment on above: Performed By: #### C RP, CDP, SED #### [facility] [address] [place] [phone] [employer]ing Equipment Mechanic: Chriss Townsend MD GFR, Amer >60 Normal >60 [facility] Comment on above: Performed By: #### C RP, CDP, SED #### [facility] [address] [place] [phone] Printing Equipment Mechanic: Chriss Townsend MD GFR,non Amer >60 Normal >60 [facility] Comment on above: Performed By: #### C RP, CDP, SED #### [facility] [address] [place] [phone] Printing Equipment Mechanic: Chriss Townsend MD Glucose [Mass/Vol] 139 mg/dL High 70-99 [facility] Comment on above: Performed By: #### C RP, CDP, SED #### [facility] [address] [place] [phone] Printing Equipment Mechanic: Chriss Townsend MD Potassium [Moles/Vol] 3.5 mmol/L Low 3.7-5.3 [facility] Comment on above: Performed By: #### C RP, CDP, SED #### [facility] [address] [place], [place] [phone] Printing Equipment Mechanic: Chriss Townsend MD Sodium [Moles/Vol] 137 mmol/L Normal 135-144 [facility] Comment on above: Performed By: #### C RP, CDP, SED #### [facility] [address] [place] [address] [phone] Printing Equipment Mechanic: Chriss Townsend MD Urea nitrogen [Mass/Vol] 17 mg/dL Normal 8-23 [facility] Comment on above: Performed By: #### C RP, CDP, SED #### [facility] [address] [place] [address] [phone] Printing Equipment Mechanic: Chriss Townsend MD Basic Metabolic Panel w/ Ref sujatha to MGon 08-18-2021 Anion gap [Moles/Vol] 9 mmol/L 9 - 17 mmol/L [facility] Calcium [Mass/Vol] 9.4 mg/dL 8.6 - 10. 4 mg/dL [facility] [employer] Chloride [Moles/Vol] 107 mmol/L 98 - 10 7 mmol/L [facility] [employer] CO2 [Moles/Vol] 21 mmol/L 20 - 31 mmol/L [facility] [employer] Creatinine [Mass/Vol] 0.42 mg/dL Low 0.50 - 0.90 mg/dL [facility]60mo GFR >60 >60 mL/min [facility]60mo GFR Non- >60 >60 mL/min [facility]60mo GFR/1.73 sq M.predicted MDRD (S/P/Bld) [Vol rate/Area] [facility] Comment on above: Average GFR for 60-6 9 years old: 85 mL/min/1.73sq m Chronic Kidney Disease: <60 mL/min/1.73sq m Kidney failure: <15 mL/min/1.73sq m eGFR calculated using average adult body mass. Additional eGFR calculator available at: http://www.Writer.ly/multiple_crcl_2012.htm Glucose [Mass/Vol] 139 mg/dL High 70 - 99 mg/dL [facility] Potassium [Moles/Vol] 3.5 mmol/L Low 3.7 - 5.3 mmol/L [facility] Sodium [Moles/Vol] 137 mmol/L 135 - 144 mmol/L [facility] Urea nitrogen (BldV) [Mass/Vol] 17 mg/dL 8 - 23 mg/dL [facility] C-Reactive Proteinon 022 CRP [Mass/Vol] 104.5 mg/L High 0.0-5.0 [facility] Comment on above: Performed By: #### C RP, CDP, SED #### [facility] [address] [phone] Printing Equipment Mechanic: Chriss Townsend MD CRP [Mass/Vol] 104.5 mg/L High 0.0 - 5.0 mg/L [facility] CBC with Auto Differentialon 08-18-2021 Absolute Eos # 0.00 [facility] Absolute Immature Granulocyte 0.00 [facility] Absolute Lymph # 0.66 Low [facility] Absolute [place]z [place]ce # 0.19 [facility] SEC RS [facility] Basophils (Bld) [#/Vol] 0.00 10*3/uL [facility] Basophils/100 WBC (Bld) 0 % 0 - 2 % [facility] Eosinophils/100 WBC (Bld) 0 % Low 1 - 4 % [facility] Hematocrit (Bld) [Volume fraction] 31.1 % Low 36.3 - 47.1 % [facility] Hemoglobin.gastrointe stinal spec 1 Ql (Stl) 9.9 g/dL Low 11.9 - 15.1 g/dL [facility] Immature granulocytes/100 WBC (Bld) 0 % 0 [facility] Interpretation and review of laboratory results Abnormal [facility] Lymphocytes/100 WBC (Bld) 7 % Low 24 - 44 % [facility] MCH (RBC) [Entitic mass] 29.6 pg 25.2 - 33.5 pg [facility] MCHC (RBC) [Mass/Vol] 31.8 g/dL 28.4 - 34.8 g/dL [facility] MCV (RBC) [Entitic vol] 92.8 fL 82.6 - 102.9 fL [facility] Monocytes/100 WBC (Bld) 2 % 1 - 7 % [facility] Morphology Demetrio (Bld) [Interp] Normal [facility] NRBC Automated 0.0 0.0 per 100 WBC [facility] Platelet distribution width (Bld) [Ratio] 14.4 % 11.8 - 14.4 % [facility] Platelet mean volume (Bld) [Entitic vol] 9.8 fL 8.1 - 13.5 fL [facility] Platelets (Bld) [#/Vol] 164 10*3/uL [facility] RBC (Bld) [#/Vol] 3.35 10*6/uL Low 3.95 - 5.1 1 m/uL [facility] Segmented neutrophils/100 WBC (Bld) 91 % High 36 - 66 % [facility] Segs Absolute 8.55 High [facility] WBC (Bld) [#/Vol] 9.4 10*3/uL [facility] CBC with Diffon 08-18-2021 Abs. Basophil 0.00 k/uL Normal 0.0-0.2 [facility] Comment on above: Performed By: #### C SEBASTIAN TRAN, SED #### [employer] [facility] [place], [place] [phone] Printing Equipment Mechanic: Chriss Townsend MD Abs.Imm.Granulocyte 0.00 k/uL Normal 0.00-0.30 [facility] Comment on above: Performed By: #### C RP, CDP, SED #### [employer] [address] [place], [place] [phone] Printing Equipment Mechanic: Chriss Townsend MD Abs.Neutrophil (Seg) 8.55 k/uL High 1.8-7.7 [facility] Comment on above: Performed By: #### C RP, CDP, SED #### [address] [address] [employer]ing Equipment Mechanic: Chriss Townsend MD Basophils/100 WBC (Bld) 0 % Normal 0-2 [facility] Comment on above: Performed By: #### C RP, CDP, SED #### [address] [address] [employer]ing Equipment Mechanic: Chriss Townsend MD Eosinophils (Bld) [#/Vol] 0.00 10*3/uL Normal 0.0-0.4 [facility] Comment on above: Performed By: #### C RP, CDP, SED #### [address] [address] [employer]ing Equipment Mechanic: Chriss Townsend MD Eosinophils/100 WBC (Bld) 0 % Low 1-4 [facility] Comment on above: Performed By: #### C RP, CDP, SED #### [address] [address] [employer]ing Equipment Mechanic: Chriss Townsend MD Immature granulocytes/100 WBC (Bld) 0 % Normal 0 [facility] Comment on above: Performed By: #### C RP, CDP, SED #### [address] [address] [employer]ing Equipment Mechanic: Chriss Townsend MD Lymphocytes (Bld) [#/Vol] 0.66 10*3/uL Low 1.0-4.8 [facility] Comment on above: Performed By: #### C RP, CDP, SED #### [facility] [employer] [address] [place] [phone] [employer]ing Equipment Mechanic: Chriss Townsend MD Lymphocytes/100 WBC (Bld) 7 % Low 24-44 [facility] Comment on above: Performed By: #### C RP, CDP, SED #### [address] [address] [employer]ing Equipment Mechanic: Chriss Townsend MD Monocytes (Bld) [#/Vol] 0.19 10*3/uL Normal 0.1-0.8 [facility] Comment on above: Performed By: #### C RP, CDP, SED #### [address] [address] [employer]ing Equipment Mechanic: Chriss Townsend MD Monocytes/100 WBC (Bld) 2 % Normal 1-7 [facility] Comment on above: Performed By: #### C RP, CDP, SED #### [address] [address] [employer]ing Equipment Mechanic: Chriss Townsend MD Morphology Demetrio (Bld) [Interp] Normal Normal [facility] Comment on above: Performed By: #### C RP, CDP, SED #### [address] [address] [employer]ing Equipment Mechanic: Chriss Townsend MD Neutrophil (Seg) 91 % High 36-66 [facility] Comment on above: Performed By: #### C RP, CDP, SED #### [address] [address] [employer]ing Equipment Mechanic: Chriss Townsend MD Erythrocyte distribution width (RBC) [Ratio] 14.4 % Normal 11.8-14.4 [facility] Comment on above: Performed By: #### C RP, CDP, SED #### [facility] [address] [place] [phone] Printing Equipment Mechanic: Chriss Townsend MD Hematocrit (Bld) [Volume fraction] 31.1 % Low 36.3-47.1 [facility] Comment on above: Performed By: #### C RP, CDP, SED #### [address] [address] [employer]ing Equipment Mechanic: Chriss Townsend MD Hemoglobin (Bld) [Mass/Vol] 9.9 g/dL Low 11.9-15.1 [facility] Comment on above: Performed By: #### C RP, CDP, SED #### [address] [address] [employer]ing Equipment Mechanic: Chriss Townsend MD MCH (RBC) [Entitic mass] 29.6 pg Normal 25.2-33.5 [facility] Comment on above: Performed By: #### C RP, CDP, SED #### [address] [address] [employer]ing Equipment Mechanic: Chriss Townsend MD MCHC (RBC) [Mass/Vol] 31.8 g/dL Normal 28.4-34.8 [facility] Comment on above: Performed By: #### C RP, CDP, SED #### [address] [address] [employer]ing Equipment Mechanic: Chriss Townsend MD MCV (RBC) [Entitic vol] 92.8 fL Normal 82.6-102.9 [facility] Comment on above: Performed By: #### C RP, CDP, SED #### [address] [address] [employer]ing Equipment Mechanic: Chriss Townsend MD NRBC Automated 0.0 per 100 WBC Normal 0.0 [facility] Comment on above: Performed By: #### C RP, CDP, SED #### [address] [address] [employer]ing Equipment Mechanic: Chriss Townsend MD Platelet mean volume (Bld) [Entitic vol] 9.8 fL Normal 8.1-13.5 [facility] Comment on above: Performed By: #### C RP, CDP, SED #### [address] [address] [employer]ing Equipment Mechanic: Chriss Townsend MD Platelets (Bld) [#/Vol] 164 10*3/uL Normal 138-453 [facility] Comment on above: Performed By: #### C RP CDP, SED #### [facility] [place] [address] Printing Equipment Mechanic: Chriss Townsend MD RBC (Bld) [#/Vol] 3.35 10*6/uL Low 3.95-5.11 [facility] Comment on above: Performed By: #### C RP, CDP, SED #### [facility] [employer] [place] [address] Printing Equipment Mechanic: Chriss Townsend MD WBC (Bld) [#/Vol] 9.4 10*3/uL Normal 3.5-11.3 [facility] Comment on above: Performed By: #### C RP CDP, SED #### [facility] [address] [place] [phone] Printing Equipment Mechanic: Chriss Townsend MD Magnesiumon 08-18-2021 Magnesium [Mass/Vol] 2.0 mg/dL Normal 1.6-2.6 [facility] Comment on above: Performed By: #### C RP, CDP, SED #### [facility] [employer] [place] [address] Printing Equipment Mechanic: Chriss Townsend MD Magnesium [Mass/Vol] 2.0 mg/dL 1.6 - 2 .6 mg/dL [facility] No Panel Informationon 08-18 Interpretation and review of laboratory results Abnormal [facility] Basic Metab w/rfx MGon 08-17 (cont.) Normal [facility] Comment on above: Result Comment: Aver age GFR for 60-69 years old: 85 mL/min/1.73sq m Chronic Kidney Disease: <60 mL/min/1.73sq m Kidney failure: <15 mL/min/1.73sq m eGFR calculated using average adult body mass. Additional eGFR calculator available at: http://www.[employer]/multiple_crcl_2012.htm Performed By: #### C RP, CDP, SED #### [facility] [employer] [address] [place] [phone] [employer]ing Equipment Mechanic: Chriss Townsend MD Anion gap [Moles/Vol] 13 mmol/L Normal 9-17 [facility] Comment on above: Performed By: #### C RP, CDP, SED #### [facility] [employer] [address] [place] [phone] [employer]ing Equipment Mechanic: Chriss Townsend MD Calcium [Mass/Vol] 9.2 mg/dL Normal 8.6-10.4 [facility] Comment on above: Performed By: #### C RP, CDP, SED #### [facility] [employer] [address] [place] [phone] Printing Equipment Mechanic: Chriss Townsend MD Chloride [Moles/Vol] 114 mmol/L High 98-107 [facility] Comment on above: Performed By: #### C RP, CDP, SED #### [facility] [employer] [address] [place] [phone] [employer] Equipment Mechanic: Chriss Townsend MD CO2 [Moles/Vol] 15 mmol/L Low 20-31 [facility] Comment on above: Performed By: #### C RP, CDP, SED #### [facility] [employer] [address] [place] [phone] Printing Equipment Mechanic: Chriss Townsend MD Creatinine [Mass/Vol] 0.31 mg/dL Low 0.50-0.90 [facility] Comment on above: Performed By: #### C RP, CDP, SED #### [facility] [employer] [address] [place] [phone] Printing Equipment Mechanic: Chriss Townsend MD GFR, Amer >60 Normal >60 [facility] Comment on above: Performed By: #### C RP, CDP, SED #### [facility] [address] [place] [address] [phone] Printing Equipment Mechanic: Chriss Townsend MD GFR,non Amer >60 Normal >60 [facility] Comment on above: Performed By: #### C RP, CDP, SED #### [facility] [address] [place] [address] [phone] Printing Equipment Mechanic: Chriss Townsend MD Glucose [Mass/Vol] 89 mg/dL Normal 70-99 [facility] Comment on above: Performed By: #### C RP, CDP, SED #### [facility] [address] [place] [phone] Printing Equipment Mechanic: Chriss Townsend MD Potassium [Moles/Vol] 3.9 mmol/L Normal 3.7-5.3 [facility] Comment on above: Performed By: #### C RP, CDP, SED #### [facility] [employer] [address] [place] [phone] Printing Equipment Mechanic: Chriss Townsend MD Sodium [Moles/Vol] 142 mmol/L Normal 135-144 [facility] Comment on above: Performed By: #### C RP, CDP, SED #### [facility] [employer] [address] [place] [address] [phone] Printing Equipment Mechanic: Chriss Townsend MD Urea nitrogen [Mass/Vol] 13 mg/dL Normal 8-23 [facility] Comment on above: Performed By: #### C RP, CDP, SED #### [facility] [employer] [address] [place] [phone] Printing Equipment Mechanic: Chriss Townsend MD Basic Metabolic Panel w/ Ref sujatha to [facility] 08-17-2021 Anion gap [Moles/Vol] 13 mmol/L 9 - 17 mmol/L [facility] Calcium [Mass/Vol] 9.2 mg/dL 8.6 - 10. 4 mg/dL [facility] Chloride [Moles/Vol] 114 mmol/L High 98 - 10 7 mmol/L [facility] CO2 [Moles/Vol] 15 mmol/L Low 20 - 31 mmol/L [facility] Creatinine [Mass/Vol] 0.31 mg/dL Low 0.50 - 0.90 mg/dL [facility] GFR >60 >60 mL/min [facility] GFR Non- >60 >60 mL/min [facility] GFR/1.73 sq M.predicted MDRD (S/P/Bld) [Vol rate/Area] [facility] Comment on above: Average GFR for 60-6 9 years old: 85 mL/min/1.73sq m Chronic Kidney Disease: <60 mL/min/1.73sq m Kidney failure: <15 mL/min/1.73sq m eGFR calculated using average adult body mass. Additional eGFR calculator available at: http://www.Writer.ly/multiple_crcl_2012.htm Glucose [Mass/Vol] 89 mg/dL 70 - 99 mg/dL [facility] Interpretation and review of laboratory results Abnormal [facility] Potassium [Moles/Vol] 3.9 mmol/L 3.7 - 5.3 mmol/L [facility] Sodium [Moles/Vol] 142 mmol/L 135 - 144 mmol/L [facility] Urea nitrogen (BldV) [Mass/Vol] 13 mg/dL 8 - 23 mg/dL [facility] Body Fluid Counton 2 RBC 68150 /mm3 Normal [facility] Comment on above: Result Comment: The reference range and other method performance specifications have not been established for this body fluid. The test result must be integrated into the clinical context for interpretation. Performed By: #### F LCRYS, BFCNT #### [facility] [place] [address] Printing Equipment Mechanic: Chriss Townsend MD WBC 49641 /mm3 Normal [facility] Comment on above: Result Comment: The reference range and other method performance specifications have not been established for this body fluid. The test result must be integrated into the clinical context for interpretation. Performed By: #### F LCRYS, BFCNT #### [email or web address] [address] [phone] Printing Equipment Mechanic: Chriss Townsend MD CBC with Auto Differentialon 08-17-2021 Absolute Eos # 0.00 [facility] Absolute Immature Granulocyte 0.00 [facility] Absolute Lymph # 0.41 Low [facility] Absolute [place] # 0.24 [facility] Basophils (Bld) [#/Vol] 0.00 10*3/uL [facility] Basophils/100 WBC (Bld) 0 % 0 - 2 % [facility] Eosinophils/100 WBC (Bld) 0 % Low 1 - 4 % [facility] Hematocrit (Bld) [Volume fraction] 35.4 % Low 36.3 - 47.1 % [facility] Hemoglobin.gastrointe stinal spec 1 Ql (Stl) 10.8 g/dL Low 11.9 - 15.1 g/dL [facility] Immature granulocytes/100 WBC (Bld) 0 % 0 [facility] Interpretation and review of laboratory results Abnormal [facility] Lymphocytes/100 WBC (Bld) 5 % Low 24 - 44 % [facility] MCH (RBC) [Entitic mass] 29.8 pg 25.2 - 33.5 pg [facility] MCHC (RBC) [Mass/Vol] 30.5 g/dL 28.4 - 34.8 g/dL [facility] MCV (RBC) [Entitic vol] 97.8 fL 82.6 - 102.9 fL [facility] Monocytes/100 WBC (Bld) 3 % 1 - 7 % [facility] Morphology Demetrio (Bld) [Interp] ANISOCYTOSIS PRESENT [facility] NRBC Automated 0.0 0.0 per 100 WBC [facility] Platelet distribution width (Bld) [Ratio] 14.6 % High 11.8 - 14.4 % [facility] Platelet mean volume (Bld) [Entitic vol] 9.9 fL 8.1 - 13.5 fL [facility] Platelets (Bld) [#/Vol] 123 10*3/uL Low [facility] RBC (Bld) [#/Vol] 3.62 10*6/uL Low 3.95 - 5.1 1 m/uL [facility] Segmented neutrophils/100 WBC (Bld) 92 % High 36 - 66 % [facility] Segs Absolute 7.45 [facility] WBC (Bld) [#/Vol] 8.1 10*3/uL [facility] CBC with Diffon 08-17-2021 Abs. Basophil 0.00 k/uL Normal 0.0-0.2 [facility] Comment on above: Performed By: #### C RP, CDP, SED #### [facility] [employer] [address] [place] [address] Printing Equipment Mechanic: Chriss Townsend MD Abs.Imm.Granulocyte 0.00 k/uL Normal 0.00-0.30 [facility] Comment on above: Performed By: #### C RP, CDP, SED #### [facility] [employer] [address] [place] [address] Printing Equipment Mechanic: Chrsis Townsend MD Abs.Neutrophil (Seg) 7.45 k/uL Normal 1.8-7.7 [facility] Comment on above: Performed By: #### C RP, CDP, SED #### [facility] [address] [place] [address] Printing Equipment Mechanic: Chriss Townsend MD Basophils/100 WBC (Bld) 0 % Normal 0-2 [facility] Comment on above: Performed By: #### C RP, CDP, SED #### [facility] [address] [place] [address] Printing Equipment Mechanic: Chriss Townsend MD Eosinophils (Bld) [#/Vol] 0.00 10*3/uL Normal 0.0-0.4 [facility] Comment on above: Performed By: #### C RP, CDP, SED #### [employer] [address] [place] [phone] Printing Equipment Mechanic: Chriss Townsend MD Eosinophils/100 WBC (Bld) 0 % Low 1-4 [facility] Comment on above: Performed By: #### C RP, CDP, SED #### [address] [address] Printing Equipment Mechanic: Chriss Townsend MD Immature granulocytes/100 WBC (Bld) 0 % Normal 0 [facility] Comment on above: Performed By: #### C RP, CDP, SED #### [address] [address] Printing Equipment Mechanic: Chriss Townsend MD Lymphocytes (Bld) [#/Vol] 0.41 10*3/uL Low 1.0-4.8 [facility] Comment on above: Performed By: #### C RP, CDP, SED #### [address] [address] Printing Equipment Mechanic: Chriss Townsend MD Lymphocytes/100 WBC (Bld) 5 % Low 24-44 [facility] Comment on above: Performed By: #### C RP, CDP, SED #### [address] [address] Printing Equipment Mechanic: Chriss Townsend MD Monocytes (Bld) [#/Vol] 0.24 10*3/uL Normal 0.1-0.8 [facility] Comment on above: Performed By: #### C RP, CDP, SED #### [address] [address] Printing Equipment Mechanic: Chriss Townsend MD Monocytes/100 WBC (Bld) 3 % Normal 1-7 [facility] Comment on above: Performed By: #### C RP, CDP, SED #### [address] [address] Printing Equipment Mechanic: Chriss Townsend MD Morphology Demetrio (Bld) [Interp] ANISOCYTOSIS PRESENT Normal [facility] Comment on above: Performed By: #### C RP, CDP, SED #### [address] [address] Printing Equipment Mechanic: Chriss Townsend MD Neutrophil (Seg) 92 % High 36-66 [facility] Comment on above: Performed By: #### C RP, CDP, SED #### [address] [address] Printing Equipment Mechanic: Chriss Townsend MD Erythrocyte distribution width (RBC) [Ratio] 14.6 % High 11.8-14.4 [facility] Comment on above: Performed By: #### C RP, CDP, SED #### [address] [address] Printing Equipment Mechanic: Chrsis Townsend MD Hematocrit (Bld) [Volume fraction] 35.4 % Low 36.3-47.1 [facility] Comment on above: Performed By: #### C RP, CDP, SED #### [address] [address] Printing Equipment Mechanic: Chriss Townsend MD Hemoglobin (Bld) [Mass/Vol] 10.8 g/dL Low 11.9-15.1 [facility] Comment on above: Performed By: #### C RP, CDP, SED #### [address] [address] Printing Equipment Mechanic: Chriss Townsend MD MCH (RBC) [Entitic mass] 29.8 pg Normal 25.2-33.5 [facility] Comment on above: Performed By: #### C RP, CDP, SED #### [facility] [employer] [address] [place] [phone] Printing Equipment Mechanic: Chriss Townsend MD MCHC (RBC) [Mass/Vol] 30.5 g/dL Normal 28.4-34.8 [facility] Comment on above: Performed By: #### C RP, CDP, SED #### [address] [address] Printing Equipment Mechanic: Chriss Townsend MD MCV (RBC) [Entitic vol] 97.8 fL Normal 82.6-102.9 [facility] Comment on above: Performed By: #### C RP, CDP, SED #### [address] [address] Printing Equipment Mechanic: Chriss Townsend MD NRBC Automated 0.0 per 100 WBC Normal 0.0 [facility] Comment on above: Performed By: #### C RP, CDP, SED #### [address] [address] Printing Equipment Mechanic: Chriss Townsend MD Platelet mean volume (Bld) [Entitic vol] 9.9 fL Normal 8.1-13.5 [facility] Comment on above: Performed By: #### C RP, CDP, SED #### [address] [address] Printing Equipment Mechanic: Chriss Townsend MD Platelets (Bld) [#/Vol] 123 10*3/uL Low 138-453 [facility] Comment on above: Performed By: #### C RP, CDP, SED #### [address] [address] Printing Equipment Mechanic: Chriss Townsend MD RBC (Bld) [#/Vol] 3.62 10*6/uL Low 3.95-5.11 [facility] Comment on above: Performed By: #### C RP, CDP, SED #### [address] [address] Printing Equipment Mechanic: Chriss Townsend MD WBC (Bld) [#/Vol] 8.1 10*3/uL Normal 3.5-11.3 [facility] Comment on above: Performed By: #### C RP, CDP, SED #### [facility] [address] [phone] Printing Equipment Mechanic: Chriss Townsend MD CT ASP ABS HEMATOMA BULLA CY STon 08-17-2021 CT-guided pubic symp hysis region aspiration performed successfully. [facility] Jonathan Villavicencio MD - 08/17/2021 PROCEDURE: [...] the procedure including risks, benefits, and alternatives. [place] protocol was observed. Sterile gowns, masks, hats [...] CT-guided pubic symphysis region aspiration performed successfully. [facility] Phone: Radiology Study observation (narrative) [facility] Phone: CT ASP ABS HEMATOMA BULLA CY STOrdered By: Jonathan Osorio on 08-17-2021 [facility] [employer] Work Phone: Cult,Aerobe/Anaerobeon 08-17 Cult,Aerobe/Anaerobe Specimen Descriptio [...] Tetracycline <=1 SUSCEPTIBLE Trimethoprim/Sulfa <=10 SUSCEPTIBLE Susceptible [facility] Comment on above: Performed By: #### A ANC #### [facility] [address] [place] [address] [phone] Printing Equipment Mechanic: Chriss Townsedn MD Cult,Urineon 08-17-2021 Cult,Urine Specimen Description .URINE,STRAIGHT CATHETER Culture NO GROWTH Report Status FINAL 08/17/2021 Normal [facility] Comment on above: Performed By: #### L ACTIC #### [facility] [address] [place] [address] [phone] Printing Equipment Mechanic: Chriss Townsend MD Culture, Anaerobic and Aerob icon 08-17-2021 Bacteria identified Cx Nom (Unsp spec) STAPHYLOCOCCUS AUREUS LIGHT GROWTH This isolate is methicillin susceptible. Abnormal [facility] [employer] Bacteria identified Cx Nom (Unsp spec) No anaerobic organisms isolated at 5 days. [facility] Direct Exam MODERATE NEUTROPHILS Abnormal [facility] [employer] Direct Exam Positive Abnormal [facility] [employer] Interpretation and review of laboratory results Abnormal [facility] Specimen Description .ASPIRATE .SYNOVIAL FLUID [facility] [employer] Culture, Urineon 08-17-2021 Bacteria identified Cx Nom (U) NO GROWTH [facility] [employer] Specimen Description .URINE,STRAIGHT CATHETER [facility] XR ANKLE RIGHT (MIN 3 VIEWS) [...] Collette Contreras MD 08/16/21 Final result Normal [facility] Basic Metab w/rfx MGon 08-16 (cont.) Normal [facility] Comment on above: Result Comment: Aver age GFR for 60-69 years old: 85 mL/min/1.73sq m Chronic Kidney Disease: <60 mL/min/1.73sq m Kidney failure: <15 mL/min/1.73sq m eGFR calculated using average adult body mass. Additional eGFR calculator available at: http://www.[employer]/multiple_crcl_2012.htm Performed By: #### C OVRB #### [facility] [employer] [address] [place] [address] [phone] Printing Equipment Mechanic: Chriss Townsend MD Anion gap [Moles/Vol] 10 mmol/L Normal 9-17 [facility] Comment on above: Performed By: #### C OVRB #### [facility] [employer] [address] [place] [address] [phone] Printing Equipment Mechanic: Chriss Townsend MD Calcium [Mass/Vol] 9.2 mg/dL Normal 8.6-10.4 [facility] Comment on above: Performed By: #### C OVRB #### [facility] [employer] [address] [place] [address] [phone] Printing Equipment Mechanic: Chriss Townsend MD Chloride [Moles/Vol] 112 mmol/L High 98-107 [facility] Comment on above: Performed By: #### C OVRB #### [address] [address] Printing Equipment Mechanic: Chriss Townsend MD CO2 [Moles/Vol] 22 mmol/L Normal 20-31 [facility] Comment on above: Performed By: #### C OVRB #### [address] [address] Printing Equipment Mechanic: Chriss Townsend MD Creatinine [Mass/Vol] 0.42 mg/dL Low 0.50-0.90 [facility] Comment on above: Performed By: #### C OVRB #### [address] [address] Printing Equipment Mechanic: Chriss Townsend MD GFR, Amer >60 Normal >60 [facility] Comment on above: Performed By: #### C OVRB #### [address] [address] Printing Equipment Mechanic: Chriss Townsend MD GFR,non Amer >60 Normal >60 [facility] Comment on above: Performed By: #### C OVRB #### [address] [address] Printing Equipment Mechanic: Chriss Townsend MD Glucose [Mass/Vol] 76 mg/dL Normal 70-99 [facility] Comment on above: Performed By: #### C OVRB #### [address] [address] Printing Equipment Mechanic: Chriss Townsend MD Sodium [Moles/Vol] 144 mmol/L Normal 135-144 [facility] Comment on above: Performed By: #### C OVRB #### [address] [phone] Printing Equipment Mechanic: Chriss Townsend MD Urea nitrogen [Mass/Vol] 12 mg/dL Normal 8-23 [facility] Comment on above: Performed By: #### C OVRB #### [facility] [address] [place], [place] [phone] Printing Equipment Mechanic: Chriss Townsend MD Potassium [Moles/Vol] 3.3 mmol/L Low 3.7-5.3 [facility] Comment on above: Performed By: #### C OVRB #### [email or web address] [facility] [address] [place] [address] Printing Equipment Mechanic: Chriss Townsend MD Basic Metabolic Panel w/ Ref sujatha to [facility] 08-16-2021 Anion gap [Moles/Vol] 10 mmol/L 9 - 17 mmol/L [facility] Calcium [Mass/Vol] 9.2 mg/dL 8.6 - 10. 4 mg/dL [facility] Chloride [Moles/Vol] 112 mmol/L High 98 - 10 7 mmol/L [facility] CO2 [Moles/Vol] 22 mmol/L 20 - 31 mmol/L [facility] Creatinine [Mass/Vol] 0.42 mg/dL Low 0.50 - 0.90 mg/dL [facility] GFR >60 >60 mL/min [facility] GFR Non- >60 >60 mL/min [facility] GFR/1.73 sq M.predicted MDRD (S/P/Bld) [Vol rate/Area] [facility] Comment on above: Average GFR for 60-6 9 years old: 85 mL/min/1.73sq m Chronic Kidney Disease: <60 mL/min/1.73sq m Kidney failure: <15 mL/min/1.73sq m eGFR calculated using average adult body mass. Additional eGFR calculator available at: http://www.[employer]/multiple_crcl_2012.htm Glucose [Mass/Vol] 76 mg/dL 70 - 99 mg/dL [facility] Interpretation and review of laboratory results Abnormal [facility] Sodium [Moles/Vol] 144 mmol/L 135 - 144 mmol/L [facility] Urea nitrogen (BldV) [Mass/Vol] 12 mg/dL 8 - 23 mg/dL [facility] Body Fluid Counton Type of Specimen .SHOULDER Normal [facility] Comment on above: Result Comment: RIGH T JOINT FLUID Performed By: #### F LCRYS, BFCNT #### [employer] [address] [place], [place] [phone] Printing Equipment Mechanic: Chriss Townsend MD Body fluid cell counton 07-22 RBC, Fluid 39490 /mm3 [facility] Comment on above: The reference range and other method performance specifications have not been established for this body fluid. The test result must be integrated into the clinical context for interpretation. Specimen type Nom (Spec) .SHOULDER [facility] Comment on above: RIGHT JOINT FLUID WBC, Fluid 84581 /mm3 [facility] Comment on above: The reference range and other method performance specifications have not been established for this body fluid. The test result must be integrated into the clinical context for interpretation. [facility] C-Reactive Proteinon 022 CRP [Mass/Vol] 457.9 mg/L High 0.0-5.0 [facility] Comment on above: Performed By: #### L ACTIC #### [employer] [address] [place], [place] [phone] Printing Equipment Mechanic: Chriss Townsend MD CRP [Mass/Vol] 457.9 mg/L High 0.0 - 5.0 mg/L [facility] Interpretation and review of laboratory results Abnormal [facility] CBC with Auto Differentialon 08-16-2021 Absolute Eos # 0.00 [facility] Absolute Immature Granulocyte 0.00 [facility] Absolute Lymph # 0.50 Low [facility] Absolute [place] # 0.20 [facility] Basophils (Bld) [#/Vol] 0.00 10*3/uL [facility] Basophils/100 WBC (Bld) 0 % 0 - 2 % [facility] Eosinophils/100 WBC (Bld) 0 % Low 1 - 4 % [facility] Hematocrit (Bld) [Volume fraction] 32.3 % Low 36.3 - 47.1 % [facility] Hemoglobin.gastrointe stinal spec 1 Ql (Stl) 9.9 g/dL Low 11.9 - 15.1 g/dL [facility] Immature granulocytes/100 WBC (Bld) 0 % 0 [facility] Interpretation and review of laboratory results Abnormal [facility] Lymphocytes/100 WBC (Bld) 5 % Low 24 - 44 % [facility] MCH (RBC) [Entitic mass] 30.0 pg 25.2 - 33.5 pg [facility] MCHC (RBC) [Mass/Vol] 30.7 g/dL 28.4 - 34.8 g/dL [facility] MCV (RBC) [Entitic vol] 97.9 fL 82.6 - 102.9 fL [facility] Monocytes/100 WBC (Bld) 2 % 1 - 7 % [facility] Morphology Demetrio (Bld) [Interp] ANISOCYTOSIS PRESENT [facility] Morphology Demetrio (Bld) [Interp] DOHLE BODIES PRESENT [facility] NRBC Automated 0.0 0.0 per 100 WBC [facility] Platelet distribution width (Bld) [Ratio] 15.1 % High 11.8 - 14.4 % [facility] Platelet mean volume (Bld) [Entitic vol] 9.8 fL 8.1 - 13.5 fL [facility] Platelets (Bld) [#/Vol] 130 10*3/uL Low [facility] RBC (Bld) [#/Vol] 3.30 10*6/uL Low 3.95 - 5.1 1 m/uL [facility] Segmented neutrophils/100 WBC (Bld) 93 % High 36 - 66 % [facility] Segs Absolute 9.20 High [facility] WBC (Bld) [#/Vol] 9.9 10*3/uL [facility] CBC with Diffon 08-16-2021 Abs. Basophil 0.00 k/uL Normal 0.0-0.2 [facility] Comment on above: Performed By: #### L ACTIC #### [address] [id number] Printing Equipment Mechanic: Chriss Townsend MD Abs.Imm.Granulocyte 0.00 k/uL Normal 0.00-0.30 [facility] Comment on above: Performed By: #### L ACTIC #### [address] [address] Printing Equipment Mechanic: Chriss Townsend MD Abs.Neutrophil (Seg) 9.20 k/uL High 1.8-7.7 [facility] Comment on above: Performed By: #### L ACTIC #### [address] [address] Printing Equipment Mechanic: Chriss Townsend MD Basophils/100 WBC (Bld) 0 % Normal 0-2 [facility] Comment on above: Performed By: #### L ACTIC #### [address] [address] Printing Equipment Mechanic: Chriss Townsend MD Eosinophils (Bld) [#/Vol] 0.00 10*3/uL Normal 0.0-0.4 [facility] Comment on above: Performed By: #### L ACTIC #### [address] [address] Printing Equipment Mechanic: Chriss Townsend MD Eosinophils/100 WBC (Bld) 0 % Low 1-4 [facility] Comment on above: Performed By: #### L ACTIC #### [address] [address] Printing Equipment Mechanic: Chriss Townsend MD Immature granulocytes/100 WBC (Bld) 0 % Normal 0 [facility] Comment on above: Performed By: #### L ACTIC #### [address] [address] Printing Equipment Mechanic: Chriss Townsend MD Lymphocytes (Bld) [#/Vol] 0.50 10*3/uL Low 1.0-4.8 [facility] Comment on above: Performed By: #### L ACTIC #### [address] [address] Printing Equipment Mechanic: Chriss Townsend MD Lymphocytes/100 WBC (Bld) 5 % Low 24-44 [facility] Comment on above: Performed By: #### L ACTIC #### [address] [address] Printing Equipment Mechanic: Chriss Townsend MD Monocytes (Bld) [#/Vol] 0.20 10*3/uL Normal 0.1-0.8 [facility] Comment on above: Performed By: #### L ACTIC #### [address] [address] Printing Equipment Mechanic: Chriss Townsend MD Monocytes/100 WBC (Bld) 2 % Normal 1-7 [facility] Comment on above: Performed By: #### L ACTIC #### [address] [address] Printing Equipment Mechanic: Chriss Townsend MD Morphology Demetrio (Bld) [Interp] ANISOCYTOSIS PRESENT Normal [facility] Comment on above: Result Comment: DOHL E BODIES PRESENT Performed By: #### L ACTIC #### [address] [address] Printing Equipment Mechanic: Chriss Townsend MD Neutrophil (Seg) 93 % High 36-66 [facility] Comment on above: Performed By: #### L ACTIC #### [address] [address] Printing Equipment Mechanic: Chriss Townsend MD Erythrocyte distribution width (RBC) [Ratio] 15.1 % High 11.8-14.4 [facility] Comment on above: Performed By: #### L ACTIC #### [address] [address] Printing Equipment Mechanic: Chriss Townsend MD Hematocrit (Bld) [Volume fraction] 32.3 % Low 36.3-47.1 [facility] Comment on above: Performed By: #### L ACTIC #### [address] [address] Printing Equipment Mechanic: Chriss Townsend MD Hemoglobin (Bld) [Mass/Vol] 9.9 g/dL Low 11.9-15.1 [facility] Comment on above: Performed By: #### L ACTIC #### [address] [address] Printing Equipment Mechanic: Chriss Townsend MD MCH (RBC) [Entitic mass] 30.0 pg Normal 25.2-33.5 [facility] Comment on above: Performed By: #### L ACTIC #### [address] [address] Printing Equipment Mechanic: Chriss Townsend MD MCHC (RBC) [Mass/Vol] 30.7 g/dL Normal 28.4-34.8 [facility] Comment on above: Performed By: #### L ACTIC #### [address] [address] Printing Equipment Mechanic: Chriss Townsend MD MCV (RBC) [Entitic vol] 97.9 fL Normal 82.6-102.9 [facility] Comment on above: Performed By: #### L ACTIC #### [address] [address] Printing Equipment Mechanic: Chriss Townsend MD NRBC Automated 0.0 per 100 WBC Normal 0.0 [facility] Comment on above: Performed By: #### L ACTIC #### [address] [place] [address] Printing Equipment Mechanic: Chriss Townsend MD Platelet mean volume (Bld) [Entitic vol] 9.8 fL Normal 8.1-13.5 [facility] Comment on above: Performed By: #### L ACTIC #### [facility] [employer] [address] [place] [address] Printing Equipment Mechanic: Chriss Townsend MD Platelets (Bld) [#/Vol] 130 10*3/uL Low 138-453 [facility] Comment on above: Performed By: #### L ACTIC #### [address] [address] Printing Equipment Mechanic: Chriss Townsend MD RBC (Bld) [#/Vol] 3.30 10*6/uL Low 3.95-5.11 [facility] Comment on above: Performed By: #### L ACTIC #### [address] [address] Printing Equipment Mechanic: Chriss Townsend MD WBC (Bld) [#/Vol] 9.9 10*3/uL Normal 3.5-11.3 [facility] Comment on above: Performed By: #### L ACTIC #### [address] [address] Printing Equipment Mechanic: Chriss Townsend MD Cell Count with Differential , Body Fluidon 08-16-2021 Lymphocytes, Body Fluid 2 % [employer] Comment on above: The reference range and other method performance specifications have not been established for this body fluid. The test result must be integrated into the clinical context for interpretation. Neutrophil Count, Fluid 93 % BON [employer] Comment on above: The reference range and other method performance specifications have not been established for this body fluid. The test result must be integrated into the clinical context for interpretation. Other Cells, Fluid MONOCYTES % BON [employer] Comment on above: The reference range and other method performance specifications have not been established for this body fluid. The test result must be integrated into the clinical context for interpretation. RBC, Fluid 30691 /mm3 [facility] Comment on above: The reference range and other method performance specifications have not been established for this body fluid. The test result must be integrated into the clinical context for interpretation. Specimen type Nom (Spec) .SYNOVIAL FLUID [facility] Comment on above: RIGHT SHOULDER WBC, Fluid 29253 /mm3 [facility] Comment on above: The reference range and other method performance specifications have not been established for this body fluid. The test result must be integrated into the clinical context for interpretation. [facility] Crystals, Body Fluidon 08-16 Crystals, Fluid Negative NEGATIVE [facility] Comment on above: NO CRYSTALS SEEN Specimen type Nom (Spec) .SYNOVIAL FLUID [facility] Comment on above: RIGHT SHOULDER [facility] Crystals, Fluidson 2 Crystals,Fluid Negative Normal NEG [facility] Comment on above: Result Comment: NO C RYSTALS SEEN Performed By: #### L ACTIC #### [facility] [employer] [facility] [place] [address] Printing Equipment Mechanic: Chriss Townsend MD ECHO Complete 2D W Doppler W Coloron 08-16-2021 Transthoracic Echocardiography Report (TTE) Patient Name HEMCHAK Date of Study 08/16/2021 MIRIAM A Date of 1955 Gender Female Age 66 year(s) Race Room Number 3022 Height: 64 inch, 162.56 cm Corporate ID [id number] Weight: 220 pounds, 99.8 kg # Patient Acct [id number] BSA: 2.04 m^2 BMI: 37.76 kg/m^2 # MR # [id number] Robotic Technician Evie Jordan Interpreting Physician Estebna Liu Fellow Referring Nurse Practitioner Interpreting Referring Physician Rory Perrin DO Fellow Type of Study TTE procedure:2D Echocardiogram, M-Mode, Doppler, Color Doppler. Procedure Date Date: 08/16/2021 Start: 02:51 PM Study Location: [facility] Technical Quality: Adequate visualization Indications:Rule out vegetation. [...] Height: 64 inch, 162.56 cm Corporate ID [id number] Weight: 220 pounds, 99.8 kg # Patient Acct [id number] BSA: 2.04 m^2 BMI: 37.76 kg/m^2 # MR # [id number] Robotic Technician Evie Jordan Interpreting Physician Esteban Liu Fellow Referring Nurse Practitioner Interpreting Referring Physician Rory Perrin DO Fellow Type of Study TTE procedure:2D Echocardiogram, M-Mode, Doppler, Color Doppler. Procedure Date Date: 08/16/2021 Start: 02:51 PM Study Location: [facility] Technical Quality: Adequate visualization Indications:Rule out vegetation. [...] Wall E' velocity:0.06 m/s Lateral Wall E/E':19.6 [employer] [facility] [employer] Work Phone: ECHO Complete 2D W Doppler W ColorOrdered By: Esteban Liu on 08-16-2021 [employer] [facility] Phone: Fluid Cell Count and Diffon 08-16-2021 Other Cells MONOCYTES Normal [facility] Comment on above: Result Comment: The reference range and other method performance specifications have not been established for this body fluid. The test result must be integrated into the clinical context for interpretation. Performed By: #### V NCT #### [employer] [address] [place] [address] Printing Equipment Mechanic: Chriss Townsend MD Magnesiumon 08-16-2021 Magnesium [Mass/Vol] 2.0 mg/dL Normal 1.6-2.6 [facility] Comment on above: Performed By: #### L ACTIC #### [facility] [address] [place] [address] Printing Equipment Mechanic: Chriss Townsend MD Magnesium [Mass/Vol] 2.0 mg/dL 1.6 - 2 .6 mg/dL [facility] OPERATIVE REPORTon OPERATIVE REPORT [facility] [address] [place] [address] OPERATIVE REPORT PATIENT NAME: MIRIAM GERMAN : 1955 MED REC NO: [id number] ROOM: [facility] ACCOUNT NO: [id number] ADMIT DATE: 08/14/2021 PROVIDER: Baltazar Anthony DO [...] is a 66-year-old female who presented to [place] several days ago with severe right shoulder [...] culture results. BALTAZAR ANTHONY DO [id number] Doc#: [id number] CC: Normal [facility] Vancomycin Level, Troughon 0 08-16-2021 Interpretation and review of laboratory results Abnormal [facility] Vancomycin Tr 8.3 ug/mL Low 10.0 - 20.0 ug/mL [facility] Comment on above: Higher trough serum vancomycin concentrations of 15-20 ug/mL are recommended for complicated infections such as bacteremia, endocarditis, osteomyelitis, meningitis, and hospital acquired pneumonia. [facility] Vancomycin Troughon 08-17-19 Vancomycin Trough 8.3 ug/mL Low 10.0-20.0 [facility] Comment on above: Result Comment: High er trough serum vancomycin concentrations of 15-20 ug/mL are recommended for complicated infections such as bacteremia, endocarditis, osteomyelitis, meningitis, and hospital acquired pneumonia. Performed By: #### V NCT #### [facility] [employer] [facility] [place] [address] Printing Equipment Mechanic: Chriss Townsend MD XR ANKLE RIGHT (MIN 3 VIEWS) on 08-16-2021 Degenerative changes seen at the ankle with postoperative change and interval removal of the ORIF hardware. [facility] RIS CONSOLIDATED EXAMINATION: THREE XRAY VIEWS [...] earlier. Calcaneal spurring at the plantar aponeurosis. [facility] Collette Rodriguez MD - 08/16/2021 EXAMINATION: [...] and interval removal of the ORIF hardware. [employer] Phone: Radiology Study observation (narrative) [employer] Phone: XR ANKLE RIGHT (MIN 3 VIEWS) Ordered By: Collette Contreras on 08-16-2021 [employer] Phone: Basic Metab w/rfx MGon 08-15 (cont.) Normal [facility] Comment on above: Result Comment: Aver age GFR for 60-69 years old: 85 mL/min/1.73sq m Chronic Kidney Disease: <60 mL/min/1.73sq m Kidney failure: <15 mL/min/1.73sq m eGFR calculated using average adult body mass. Additional eGFR calculator available at: http://www.[employer].L[employer]/multiple_crcl_2011.htm Performed By: #### C RP, CDP, SED #### [facility] [address] [place], [place] [id number] Printing Equipment Mechanic: Chriss Townsend MD Anion gap [Moles/Vol] 12 mmol/L Normal 9-17 [facility] Comment on above: Performed By: #### C RP, CDP, SED #### [employer] [address] [place] [address] Printing Equipment Mechanic: Chriss Townsend MD Calcium [Mass/Vol] 9.2 mg/dL Normal 8.6-10.4 [facility] Comment on above: Performed By: #### C RP, CDP, SED #### [facility] [employer] [address] [place] [address] Printing Equipment Mechanic: Chriss Townsend MD Chloride [Moles/Vol] 109 mmol/L High 98-107 [facility] Comment on above: Performed By: #### C RP, CDP, SED #### [facility] [employer] [address] [place] [address] Printing Equipment Mechanic: Chriss Townsend MD CO2 [Moles/Vol] 20 mmol/L Normal 20-31 [facility] Comment on above: Performed By: #### C RP, CDP, SED #### [address] [address] Printing Equipment Mechanic: Chriss Townsend MD Creatinine [Mass/Vol] 0.60 mg/dL Normal 0.50-0.90 [facility] Comment on above: Performed By: #### C RP, CDP, SED #### [address] [address] Printing Equipment Mechanic: Chriss Townsend MD GFR, Amer >60 Normal >60 [facility] Comment on above: Performed By: #### C RP, CDP, SED #### [facility] [employer] [address] [place] [address] Printing Equipment Mechanic: Chriss Townsend MD GFR,non Amer >60 Normal >60 [facility] Comment on above: Performed By: #### C RP, CDP, SED #### [facility] [employer] [address] [place] [address] Printing Equipment Mechanic: Chriss Townsend MD Glucose [Mass/Vol] 78 mg/dL Normal 70-99 [facility] Comment on above: Performed By: #### C RP, CDP, SED #### [facility] [address] [place] [address] Printing Equipment Mechanic: Chriss Townsend MD Potassium [Moles/Vol] 4.1 mmol/L Normal 3.7-5.3 [facility] Comment on above: Performed By: #### C RP, CDP, SED #### [facility] [address] [place] [address] Printing Equipment Mechanic: Chriss Townsend MD Sodium [Moles/Vol] 141 mmol/L Normal 135-144 [facility] Comment on above: Performed By: #### C RP, CDP, SED #### [employer] [facility] [place] [address] Printing Equipment Mechanic: Chriss Townsend MD Urea nitrogen [Mass/Vol] 12 mg/dL Normal 8-23 [facility] Comment on above: Performed By: #### C RP, CDP, SED #### [facility] [address] [place] [address] Printing Equipment Mechanic: Chriss Townsend MD Basic Metabolic Panel w/ Ref sujatha to MGon 08-15-2021 Anion gap [Moles/Vol] 12 mmol/L 9 - 17 mmol/L [facility] [employer] Calcium [Mass/Vol] 9.2 mg/dL 8.6 - 10. 4 mg/dL [facility] Chloride [Moles/Vol] 109 mmol/L High 98 - 10 7 mmol/L [facility] [employer] CO2 [Moles/Vol] 20 mmol/L 20 - 31 mmol/L [facility] Creatinine [Mass/Vol] 0.6 mg/dL 0.50 - 0.90 mg/dL [facility] G[facility] >60 >60 mL/min [facility] [employer] GFR Non- >60 >60 mL/min [facility] [employer] GFR/1.73 sq M.predicted MDRD (S/P/Bld) [Vol rate/Area] [facility] Comment on above: Average GFR for 60-6 9 years old: 85 mL/min/1.73sq m Chronic Kidney Disease: <60 mL/min/1.73sq m Kidney failure: <15 mL/min/1.73sq m eGFR calculated using average adult body mass. Additional eGFR calculator available at: http://www.Writer.[employer]/multiple_crcl_2011.htm Glucose [Mass/Vol] 78 mg/dL 70 - 99 mg/dL [facility] Interpretation and review of laboratory results Abnormal [facility] Potassium [Moles/Vol] 4.1 mmol/L 3.7 - 5.3 mmol/L [facility] Sodium [Moles/Vol] 141 mmol/L 135 - 144 mmol/L [facility] Urea nitrogen (BldV) [Mass/Vol] 12 mg/dL 8 - 23 mg/dL [facility] CBC with Auto Differentialon 08-15-2021 Absolute Eos # 0.00 [facility] Absolute Immature Granulocyte 0.00 [facility] Absolute Lymph # 0.85 Low [facility] Absolute [place] # 0.17 [facility] Basophils (Bld) [#/Vol] 0.00 10*3/uL [facility] Basophils/100 WBC (Bld) 0 % 0 - 2 % [facility] Eosinophils/100 WBC (Bld) 0 % Low 1 - 4 % [facility] Hematocrit (Bld) [Volume fraction] 37.5 % 36.3 - 47.1 % [facility] Hemoglobin.gastrointe stinal spec 1 Ql (Stl) 11.7 g/dL Low 11.9 - 15.1 g/dL [facility] Immature granulocytes/100 WBC (Bld) 0 % 0 [facility] Interpretation and review of laboratory results Abnormal [facility] Lymphocytes/100 WBC (Bld) 5 % Low 24 - 44 % [facility] MCH (RBC) [Entitic mass] 30.2 pg 25.2 - 33.5 pg [facility] MCHC (RBC) [Mass/Vol] 31.2 g/dL 28.4 - 34.8 g/dL [facility] MCV (RBC) [Entitic vol] 96.9 fL 82.6 - 102.9 fL [facility] Monocytes/100 WBC (Bld) 1 % 1 - 7 % [facility] Morphology Demetrio (Bld) [Interp] ANISOCYTOSIS PRESENT [facility] Morphology Demetrio (Bld) [Interp] INCREASED BANDS PRESENT [facility] NRBC Automated 0.0 0.0 per 100 WBC [facility] Platelet distribution width (Bld) [Ratio] 15.2 % High 11.8 - 14.4 % [facility] Platelet mean volume (Bld) [Entitic vol] 9.9 fL 8.1 - 13.5 fL [facility] Platelets (Bld) [#/Vol] 183 10*3/uL [facility] RBC (Bld) [#/Vol] 3.87 10*6/uL Low 3.95 - 5.1 1 m/uL [facility] Segmented neutrophils/100 WBC (Bld) 94 % High 36 - 66 % [facility] Segs Absolute 15.88 High [facility] WBC (Bld) [#/Vol] 16.9 10*3/uL High [facility] CBC with Diffon 08-15-2021 Abs. Basophil 0.00 k/uL Normal 0.0-0.2 [facility] Comment on above: Performed By: #### C MARC CDP, SED #### [employer] [address] [place] [address] Printing Equipment Mechanic: Chriss Townsend MD Abs.Imm.Granulocyte 0.00 k/uL Normal 0.00-0.30 [facility] Comment on above: Performed By: #### C RP, CDP, SED #### [employer] [address] [place] [address] Printing Equipment Mechanic: Chriss Townsend MD Abs.Neutrophil (Seg) 15.88 k/uL High 1.8-7.7 [facility] Comment on above: Performed By: #### C RP, CDP, SED #### [employer] [address] [place] [address] Printing Equipment Mechanic: Chriss Townsend MD Basophils/100 WBC (Bld) 0 % Normal 0-2 [facility] Comment on above: Performed By: #### C RP, CDP, SED #### [facility] [address] [place] [address] Printing Equipment Mechanic: Chriss Townsend MD Eosinophils (Bld) [#/Vol] 0.00 10*3/uL Normal 0.0-0.4 [facility] Comment on above: Performed By: #### C RP, CDP, SED #### [address] [address] Printing Equipment Mechanic: Chriss Townsend MD Eosinophils/100 WBC (Bld) 0 % Low 1-4 [facility] Comment on above: Performed By: #### C RP, CDP, SED #### [address] [address] Printing Equipment Mechanic: Chriss Townsend MD Immature granulocytes/100 WBC (Bld) 0 % Normal 0 [facility] Comment on above: Performed By: #### C RP, CDP, SED #### [address] [address] Printing Equipment Mechanic: Chriss Townsend MD Lymphocytes (Bld) [#/Vol] 0.85 10*3/uL Low 1.0-4.8 [facility] Comment on above: Performed By: #### C RP, CDP, SED #### [facility] [employer] [address] [place] [address] Printing Equipment Mechanic: Chriss Townsend MD Lymphocytes/100 WBC (Bld) 5 % Low 24-44 [facility] Comment on above: Performed By: #### C RP, CDP, SED #### [facility] [address] [place] [address] Printing Equipment Mechanic: Chriss Townsend MD Monocytes (Bld) [#/Vol] 0.17 10*3/uL Normal 0.1-0.8 [facility] Comment on above: Performed By: #### C RP, CDP, SED #### [address] [address] Printing Equipment Mechanic: Chriss Townsend MD Monocytes/100 WBC (Bld) 1 % Normal 1-7 [facility] Comment on above: Performed By: #### C RP, CDP, SED #### [facility] [employer] [address] [place] [address] Printing Equipment Mechanic: Chriss Townsend MD Morphology Demetrio (Bld) [Interp] ANISOCYTOSIS PRESENT Normal [facility] Comment on above: Result Comment: INCR EASED BANDS PRESENT Performed By: #### C RP, CDP, SED #### [address] [address] Printing Equipment Mechanic: Chriss Townsend MD Neutrophil (Seg) 94 % High 36-66 [facility] Comment on above: Performed By: #### C RP, CDP, SED #### [address] [address] Printing Equipment Mechanic: Chriss Townsend MD Erythrocyte distribution width (RBC) [Ratio] 15.2 % High 11.8-14.4 [facility] Comment on above: Performed By: #### C RP, CDP, SED #### [facility] [employer] [address] [place] [address] Printing Equipment Mechanic: Chriss Townsend MD Hematocrit (Bld) [Volume fraction] 37.5 % Normal 36.3-47.1 [facility] Comment on above: Performed By: #### C RP, CDP, SED #### [facility] [employer] [address] [place] [address] Printing Equipment Mechanic: Chriss Townsend MD Hemoglobin (Bld) [Mass/Vol] 11.7 g/dL Low 11.9-15.1 [facility] Comment on above: Performed By: #### C RP, CDP, SED #### [address] [address] Printing Equipment Mechanic: Chriss Townsend MD MCH (RBC) [Entitic mass] 30.2 pg Normal 25.2-33.5 [facility] Comment on above: Performed By: #### C RP, CDP, SED #### [place] [address] [employer]ing Equipment Mechanic: Chriss Townsend MD MCHC (RBC) [Mass/Vol] 31.2 g/dL Normal 28.4-34.8 [facility] Comment on above: Performed By: #### C RP, CDP, SED #### [place] [address] [employer]ing Equipment Mechanic: Chriss Townsend MD MCV (RBC) [Entitic vol] 96.9 fL Normal 82.6-102.9 [facility] Comment on above: Performed By: #### C RP, CDP, SED #### [place] [address] [employer]ing Equipment Mechanic: Chriss Townsend MD NRBC Automated 0.0 per 100 WBC Normal 0.0 [facility] Comment on above: Performed By: #### C RP, CDP, SED #### [place] [address] [employer]ing Equipment Mechanic: Chriss Townsend MD Platelet mean volume (Bld) [Entitic vol] 9.9 fL Normal 8.1-13.5 [facility] Comment on above: Performed By: #### C RP, CDP, SED #### [place] [address] Printing Equipment Mechanic: Chriss Townsend MD Platelets (Bld) [#/Vol] 183 10*3/uL Normal 138-453 [facility] Comment on above: Performed By: #### C RP, CDP, SED #### [employer] [facility] [address] [place] [address] Printing Equipment Mechanic: Chriss Townsend MD RBC (Bld) [#/Vol] 3.87 10*6/uL Low 3.95-5.11 [facility] Comment on above: Performed By: #### C RP, CDP, SED #### [facility] [address] [place] [address] Printing Equipment Mechanic: Chriss Townsend MD WBC (Bld) [#/Vol] 16.9 10*3/uL High 3.5-11.3 [facility] Comment on above: Performed By: #### C RP, CDP, SED #### [employer] [address] [place] [address] Printing Equipment Mechanic: Chriss Townsend MD [facility] 08-15-2021 CK [Catalytic activity/Vol] 33 U/L 26 - 192 U/L [facility] CK [Catalytic activity/Vol] 42 U/L 26 - 192 U/L [facility] CK [Catalytic activity/Vol] 44 U/L 26 - 192 U/L [facility] CT CERVICAL SPINE WO CONTRAS Ton [...] Josh Jackson MD 08/15/21 Final result Normal [facility] No acute abnormality of the cervical spine. Degenerative disc disease of C4-C5, C5-C6 and C6-C7 disc, with osteoarthritis of the right facet joints. [facility] CONSOLIDATED EXAMINATION: CT OF THE CERVICAL SPINE [...] There is no prevertebral soft tissue swelling. [facility] Josh Jackson MD - 08/15/2021 EXAMINATION: [...] with osteoarthritis of the right facet joints. [employer] Phone: CT CERVICAL SPINE WO CONTRAS TOrdered By: Josh Jackson on 08-15-2021 [employer] Phone: CT FEMUR LEFT W CONTRASTon [...] by: Mik Cantu 08/14/21 Final result Normal [facility] CT FEMUR RIGHT W CONTRASTon 08-15-2021 [...] by: Mik Cantu 08/15/21 Final result Normal [facility] CT HEAD WO CONTRASTon 2021 CT [...] Alessio Brady MD 08/15/21 Final result Normal [facility] No acute intracrania l abnormality. If there remains concern for meningitis contrast-enhanced MRI suggested [facility] EXAMINATION: CT OF THE HEAD WITHOUT [...] of the visualized skull or soft tissues. [facility] Alessio Brady MD - 08/15/2021 EXAMINATION: [...] remains concern for meningitis contrast-enhanced MRI suggested [employer] Phone: CT HEAD WO CONTRASTOrdered B y: Alessio Brady on 08-15-2021 [employer] Phone: CT HUMERUS RIGHT W CONTRASTo n [...] Cantu 08/15/21 Edited Result - FINAL Normal [facility] CT LUMBAR SPINE WO CONTRASTo n [...] Josh Jackson MD 08/15/21 Final result Normal [facility] Bilateral sacral win g insufficiency fractures. Degenerative changes as described above. [facility] EXAMINATION: CT OF THE LUMBAR SPINE [...] SOFT TISSUES/RETROPERITONEUM: No paraspinal mass is seen. [facility] Josh Jackson MD - 08/15/2021 EXAMINATION: [...] insufficiency fractures. Degenerative changes as described above. [facility] [employer] Work Phone: [facility] [employer] Work Phone: CT RADIUS ULNA RIGHT W CONTR Stephenie 08-15-2021 Radiology Study observation (narrative) REJI MADDOX [facility]ITALLeander [employer] Phone: CT SHOULDER RIGHT W CONTRAST on [...] Cantu 08/15/21 Edited Result - FINAL Normal [facility] CT THORACIC SPINE WO CONTRAS Ton [...] destructive lesion is seen. There is a befr-vp-ygoieiah compression fracture of the T4 vertebral body without compromise of the spinal canal. There are no acute fracture lines noted. DEGENERATIVE CHANGES: No gross spinal canal stenosis or bony neural foraminal narrowing of the thoracic spine. SOFT TISSUES: There are hypoventilatory changes in the posterior aspects of the lungs. IMPRESSION: Ooon-yp-gtmjpsyc compression fracture of the T4 vertebral body, of undetermined age. Clinical correlation suggested. Hypoventilatory changes in the posterior aspects of the lungs. Interpreted by: Josh Jackson MD Signed by: Josh Jackson MD 08/15/21 Final result Normal [facility] Azao-xu-qmqujwai compression fracture of the T4 vertebral body, [...] destructive lesion is seen. There is a wepz-gp-jwqajiqx compression fracture of the T4 vertebral body without compromise of the spinal canal. There are no acute fracture lines noted. DEGENERATIVE CHANGES: No gross spinal canal stenosis or bony neural foraminal narrowing of the thoracic spine. SOFT TISSUES: There are hypoventilatory changes in the posterior aspects of the lungs. [facility] R[facility] Josh Ochoa MD - 08/15/2021 [...] destructive lesion is seen. There is a ltdk-we-tmtbkudz compression fracture of the T4 vertebral body without compromise of the spinal canal. There are no acute fracture lines noted. DEGENERATIVE CHANGES: No gross spinal canal stenosis or bony neural foraminal narrowing of the thoracic spine. SOFT TISSUES: There are hypoventilatory changes in the posterior aspects of the lungs. IMPRESSION: Cnqx-gp-eygpglna compression fracture of the T4 vertebral body, of undetermined age. Clinical correlation suggested. Hypoventilatory changes in the posterior aspects of the lungs. [facility] Work Phone: [facility]ITALChaoWIFI [facility] HOSPITALMentorDOTMe Phone: CT TIBIA FIBULA LEFT W CONTR [...] by: Mik Cantu 08/14/21 Final result Normal [facility] CT TIBIA FIBULA RIGHT W CONT [facility] 08-15-2021 CT TIBIA FIBULA RIGHT W CONTRAST [...] by: Mik Cantu 08/15/21 Final result Normal [facility] Cortisolon 08-15-2021 Cortisol 18.7 ug/dL High 2.7-18.4 [facility] Comment on above: Result Comment: Cortisol Reference Range: AM 6.0-18.4 PM 2.7-10.5 Performed By: #### C RP, CDP, SED #### [employer] [address] [place] [id number] Printing Equipment Mechanic: Chriss Townsend MD Cortisol Totalon 08-15-2021 Cortisol 18.7 ug/dL High 2.7 - 18.4 ug/dL [facility] Comment on above: Cortisol Reference Range: AM 6.0-18.4 PM 2.7-10.5 Interpretation and review of laboratory results Abnormal [facility] Creatine Kinaseon 08-15-2021 CK [Catalytic activity/Vol] 33 U/L Normal - [facility] Comment on above: Performed By: #### C OVRB #### [employer] [facility] [place] [address] Printing Equipment Mechanic: Chriss Townsend MD CK [Catalytic activity/Vol] 42 U/L Normal - [facility] Comment on above: Performed By: #### C RP, CDP, SED #### [address] [address] Printing Equipment Mechanic: Chriss Townsend MD CK [Catalytic activity/Vol] 44 U/L Normal 26-192 [facility] Comment on above: Performed By: #### C OVRB #### [address] [address] Printing Equipment Mechanic: Chriss Townsend MD Crystals, Fluidson 2 Type of Specimen .SYNOVIAL FLUID Normal [facility] Comment on above: Result Comment: RIGH T SHOULDER Performed By: #### L ACTIC #### [address] [address] Printing Equipment Mechanic: Chriss Townsend MD Performed By: #### V NCT #### [address] [address] Printing Equipment Mechanic: Chriss Townsend MD Cult,Fluidon 08-15-2021 Cult,Fluid Specimen Description .SYNOVIAL FLUID .ASPIRATE RIGHT SHOULDER Culture DUE TO THE SPECIMEN TYPE, THE ORDER WAS CANCELED AND REORDERED. PLEASE REFER TO: ANAEROBIC, AEROBIC CULTURE Report Status FINAL 08/15/2021 Normal [facility] Comment on above: Performed By: #### L ACTIC #### [address] [address] Printing Equipment Mechanic: Chriss Townsend MD Culture, Body Fluidon 2021 Bacteria identified Cx Nom (Unsp spec) DUE TO THE SPECIMEN TYPE, THE ORDER WAS CANCELED AND REORDERED. PLEASE REFER TO: ANAEROBIC, AEROBIC CULTURE [facility] Specimen Description .SYNOVIAL FLUID .ASPIRATE [facility] [employer] [facility] Fluid Cell Count and Diffon 08-15-2021 Lymphocytes/100 WBC (Bld) 2 % Normal [facility] Comment on above: Result Comment: The reference range and other method performance specifications have not been established for this body fluid. The test result must be integrated into the clinical context for interpretation. Performed By: #### V NCT #### [address] [address] Printing Equipment Mechanic: Chriss Townsend MD Neutrophils/100 WBC (Bld) 93 % Normal [facility] Comment on above: Result Comment: The reference range and other method performance specifications have not been established for this body fluid. The test result must be integrated into the clinical context for interpretation. Performed By: #### V NCT #### [address] [address] Printing Equipment Mechanic: Chriss Townsend MD RBC [id number] /mm3 Normal [facility] Comment on above: Result Comment: The reference range and other method performance specifications have not been established for this body fluid. The test result must be integrated into the clinical context for interpretation. Performed By: #### V NCT #### [address] [address] Printing Equipment Mechanic: Chriss Townsend MD WBC [id number] /mm3 Normal [facility] Comment on above: Result Comment: The reference range and other method performance specifications have not been established for this body fluid. The test result must be integrated into the clinical context for interpretation. Performed By: #### V NCT #### [address] [address] Printing Equipment Mechanic: Chriss Townsend MD Gram Stainon 08-15-2021 Microscopic observation Gram stain Nom (Unsp spec) Specimen Description .ASPIRATE .SYNOVIAL FLUID RIGHT SHOULDER Direct Exam DUPLICATE ORDER GRAM STAIN INCLUDED WITH AEROBIC, ANAEROBIC CULTURE Report Status FINAL 08/15/2021 Normal [facility] Comment on above: Performed By: #### L ACTIC #### [address] [address] Printing Equipment Mechanic: Chriss Townsend MD Direct Exam DUPLICATE ORDER GRAM STAIN INCLUDED WITH AEROBIC, ANAEROBIC CULTURE [facility] Specimen Description .ASPIRATE .SYNOVIAL FLUID [facility] IR ARTHR/ASP/INJ MAJOR JT/BU RSA W [...] AP-230 CGY CM SQUARED Views 1 PROCEDURE: DIRECT MAIL MANAGER: Barrington Paniagua MD Informed consent was obtained [...] Barrington Paniagua MD 08/15/21 Final result Normal [facility] Successful ultrasoun d and fluoroscopic-guided right shoulder fluid collection aspiration, as above. [facility]IS CONSOLIDATED EXAMINATION: FLUOROSCOPIC AND ULTRASONIC GUIDED ASPIRATION RIGHT SHOULDER PERIARTICULAR FLUID COLLECTION 08/15/2021 11:54 am HISTORY: ORDERING SYSTEM PROVIDED HISTORY: right should asp. TECHNOLOGIST PROVIDED HISTORY: right should asp. Reason for Exam: Right shoulder aspiration FLUOROSCOPY DOSE AND TYPE OR TIME AND EXPOSURES: FLUOROSCOPY TIME-0.3 MINUTES D AP-230 CGY CM SQUARED Views 1 PROCEDURE: DIRECT MAIL MANAGER: Barrington Paniagua MD Informed consent was obtained [...] was removed and provided for further analysis. [facility] CONSOLIDATED Barrington Paniagua MD - 08/15/2021 EXAMINATION: FLUOROSCOPIC AND ULTRASONIC GUIDED ASPIRATION RIGHT SHOULDER PERIARTICULAR FLUID COLLECTION 08/15/2021 11:54 am HISTORY: ORDERING SYSTEM PROVIDED HISTORY: right should asp. TECHNOLOGIST PROVIDED HISTORY: right should asp. Reason for Exam: Right shoulder aspiration FLUOROSCOPY DOSE AND TYPE OR TIME AND EXPOSURES: FLUOROSCOPY TIME-0.3 MINUTES D AP-230 CGY CM SQUARED Views 1 PROCEDURE: DIRECT MAIL MANAGER: Barrington Paniagua MD Informed consent was obtained [...] right shoulder fluid collection aspiration, as above. [employer] [facility] Phone: Radiology Study observation (narrative) [facility] Phone: IR ARTHR/ASP/INJ MAJOR JT/BU RSA W USOrdered By: Barrington Paniagua on 08-15-2021 [facility] Phone: IR LUMBAR PUNCTURE FOR DIAGN OSISon 08-15-2021 IR LUMBAR PUNCTURE FOR DIAGNOSIS EXAMINATION: ATTEMPTED FLUOROSCOPIC GUIDED LUMBAR PUNCTURE 08/15/2021 11:54 am HISTORY: ORDERING SYSTEM PROVIDED HISTORY: neck pain, elevated ESR, CRP and leukocytosis TECHNOLOGIST PROVIDED HISTORY: neck pain, elevated ESR, CRP and leukocytosis FLUOROSCOPY DOSE AND TYPE OR TIME AND EXPOSURES: 3.6 minutes fluoroscopy time D AP-6921 cGy cm squared PROCEDURE: DIRECT MAIL MANAGER: Barrington Paniagua MD Informed consent was obtained after the risks and benefits of the procedure were discussed with the patient and all questions were answered fully. [place] protocol was observed and a standard timeout was performed. The patient was positioned the kerx-kydk-gldk decubitus position, and the back was prepped [...] IMPRESSION: Unsuccessful fluoroscopic-guided lumbar puncture in the gwdz-benb-npne decubitus position, as above. Interpreted by: Brarington Paniagua MD Signed by: Barrington Paniagua MD 08/15/21 Final result Normal [facility] Unsuccessful fluoroscopic-guided lumbar puncture in the uhzb-rucr-qmye decubitus position, as above. [facility] CONSOLIDATED EXAMINATION: ATTEMPTED FLUOROSCOPIC GUIDED LUMBAR PUNCTURE 08/15/2021 11:54 am HISTORY: ORDERING SYSTEM PROVIDED HISTORY: neck pain, elevated ESR, CRP and leukocytosis TECHNOLOGIST PROVIDED HISTORY: neck pain, elevated ESR, CRP and leukocytosis FLUOROSCOPY DOSE AND TYPE OR TIME AND EXPOSURES: 3.6 minutes fluoroscopy time D AP-6921 cGy cm squared PROCEDURE: DIRECT MAIL MANAGER: Barrington Paniagua MD Informed consent was obtained after the risks and benefits of the procedure were discussed with the patient and all questions were answered fully. [place] protocol was observed and a standard timeout was performed. The patient was positioned the qtrt-zhcw-wkmi decubitus position, and the back was prepped [...] renal collecting system mildly distended urinary bladder. [facility] CONSOLIDATED Barrington Paniagua MD - 08/15/2021 EXAMINATION: ATTEMPTED FLUOROSCOPIC GUIDED LUMBAR PUNCTURE 08/15/2021 11:54 am HISTORY: ORDERING SYSTEM PROVIDED HISTORY: neck pain, elevated ESR, CRP and leukocytosis TECHNOLOGIST PROVIDED HISTORY: neck pain, elevated ESR, CRP and leukocytosis FLUOROSCOPY DOSE AND TYPE OR TIME AND EXPOSURES: 3.6 minutes fluoroscopy time D AP-6921 cGy cm squared PROCEDURE: DIRECT MAIL MANAGER: Barrington Paniagua MD Informed consent was obtained after the risks and benefits of the procedure were discussed with the patient and all questions were answered fully. [place] protocol was observed and a standard timeout was performed. The patient was positioned the tmls-jlcn-hvot decubitus position, and the back was prepped [...] IMPRESSION: Unsuccessful fluoroscopic-guided lumbar puncture in the uvnq-cfzv-nzls decubitus position, as above. [facility] [employer] Work Phone: [facility] [employer] Work Phone: Radiology Study observation (narrative) [facility] Work Phone: Lactate, Sepsison 08-15-2021 Lactic Acid,Sep Wbld 2.7 mmol/L High 0.5-1.9 [facility] Comment on above: Performed By: #### C OVRB #### [employer] [address] [place] [id number] Printing Equipment Mechanic: Chriss Townsend MD Lactic Acid,Sep Wbld 3.0 mmol/L High 0.5-1.9 [facility] Comment on above: Performed By: #### C OVRB #### [employer] [address] [place] [address] Printing Equipment Mechanic: Chriss Townsend MD Interpretation and review of laboratory results Abnormal [facility] Lactic Acid, Sepsis, Whole Blood 2.7 mmol/L High 0.5 - 1.9 mmol/L [facility] Lactic Acidon 05-26-2022 Lactic Acid,Whole Bl 1.5 mmol/L Normal 0.7-2.1 [facility] Comment on above: Performed By: #### L ACTIC #### [employer] [facility] [place] [address] Printing Equipment Mechanic: Chriss Townsend MD Lactic Acid, Plasmaon 2021 Lactic Acid, Whole Blood 1.5 mmol/L 0.7 - 2.1 mmol/L [facility] MRSA DNA Probe, Nasalon 07-22 MRSA, DNA, Nasal Negative NEGATIVE [facility] Comment on above: NEGATIVE: MRSA DNA n ot detected by nucleic acid amplification. Results should be used as an adjunct to nosocomial control efforts to identify patients needing enhanced precautions. The test is not intended to identify patients with staphylococcal infections. Results should not be used to guide or monitor treatment for MRSA infections. Specimen Description .NASAL SWAB [facility] MRSA, DNA, Nasalon MRSA, DNA, Nasal Negative Normal [facility] Comment on above: Result Comment: NEGA TIVE: MRSA DNA not detected by nucleic acid amplification. Results should be used as an adjunct to nosocomial control efforts to identify patients needing enhanced precautions. The test is not intended to identify patients with staphylococcal infections. Results should not be used to guide or monitor treatment for MRSA infections. Performed By: #### M RSANO #### [employer] [address] [place] [id number] Printing Equipment Mechanic: Chriss Townsend MD Specimen Description .NASAL SWAB Normal [facility] Comment on above: Performed By: #### M RSANO #### [employer] [facility] [place], [place] [phone] Printing Equipment Mechanic: Chriss Townsend MD No Panel Informationon 08-15 Radiology Study observation (narrative) [facility] Work Phone: Radiology Study observation (narrative) [facility] Work Phone: [facility] No evidence of necrotizing fasciitis of the right lower extremity. Mild superficial subcutaneous fatty edema lateral to the right hip and intermittently laterally and posteriorly in the lower leg. Healing fractures at the medial aspect of the left body of pubis and mid right inferior pubic ramus. [facility] CONSOLIDATED EXAMINATION: CT OF THE RIGHT FEMUR [...] unremarkable. Joint: Mild degenerative changes incidentally noted. [facility] CONSOLIDATED Mik Cantu - 08/15/2021 EXAMINATION: CT [...] pubis and mid right inferior pubic ramus. [facility]ITALChaoWIFI [facility] HOSPITALPolyInnovations Work Phone: [facility]ITALChaoWIFI [facility] HOSPITALMentorDOTMe Phone: Procalcitoninon 08-15-2021 Procalcitonin 3.47 ng/mL High <0.09 [facility] Comment on above: Result Comment: Suspected [...] entered into the Change in Procalcitonin Calculator (www.wimoaw-bxl-bydphlhajv.com) to determine the patient's Mortality Risk Prognosis In healthy neonates, plasma Procalcitonin (PCT) concentrations increase gradually after , reaching peak values at about 24 hours of age then decrease to normal values below 0.5 ng/mL by 48-72 hours of age. 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 ! + -+ + + [facility] Phone: Radiology Study observation (narrative) [facility] Phone: VL DUP UPPER EXTREMITY VENOU S RIGHTOrdered By: Unknown Result on 08-15-2021 Plink XR ANKLE RIGHT (MIN 3 VIEWS) on [...] Barbara Rivera DO 08/15/21 Final result Normal [facility] No acute bony abnorm ality or [...] calcaneal spur. Mild bimalleolar soft tissue swelling. [facility] CONSOLIDATED Barbara Rivera DO - [...] Bimalleolar soft tissue swelling. Plantar calcaneal spur. [facility] Phone: Radiology Study observation (narrative) [facility] Phone: XR ANKLE RIGHT (MIN 3 VIEWS) Ordered By: Barbara Rivera on 08-15-2021 [facility] Phone: APTTon 08-14-2021 aPTT Coag (Bld) [Time] 19.6 s Low 20.5-30.5 [facility] Comment on above: Result Comment: IV Heparin Therapy Range: 48.6-77.8 No clot found in specimen, results questionable. Performed By: #### L ACTIC #### [employer] [address] [place] [address] Printing Equipment Mechanic: Chriss Townsend MD aPTT Coag (Bld) [Time] 19.6 s Low [facility] Comment on above: IV Heparin Therapy Range: 48.6-77.8 No clot found in specimen, results questionable. Interpretation and review of laboratory results Abnormal [facility] C-Reactive Proteinon CRP [Mass/Vol] 258.6 mg/L High 0.0-5.0 [facility] Comment on above: Performed By: #### C RP, CDP, SED #### [facility] [address] [id number] Printing Equipment Mechanic: Chriss Townsend MD CRP [Mass/Vol] 258.6 mg/L High 0.0 - 5.0 mg/L [facility] Interpretation and review of laboratory results Abnormal [facility] CRP [Mass/Vol] 249.9 mg/L High 0.0 - 5.0 mg/L [facility] CBC with Auto Differentialon 08-14-2021 Absolute Eos # 0.00 [facility] Absolute Immature Granulocyte 2.56 High [facility] Absolute Lymph # 1.40 [facility] Absolute [place] # 0.23 [facility] Basophils (Bld) [#/Vol] 0.00 10*3/uL [facility] Basophils/100 WBC (Bld) 0 % 0 - 2 % [facility] Eosinophils/100 WBC (Bld) 0 % Low 1 - 4 % [facility] Hematocrit (Bld) [Volume fraction] 40.4 % 36.3 - 47.1 % [facility] Hemoglobin.gastrointe stinal spec 1 Ql (Stl) 12.4 g/dL 11.9 - 15.1 g/dL [facility] Immature granulocytes/100 WBC (Bld) 11 % High 0 [facility] Interpretation and review of laboratory results Abnormal [facility] Lymphocytes/100 WBC (Bld) 6 % Low 24 - 44 % [facility] MCH (RBC) [Entitic mass] 29.9 pg 25.2 - 33.5 pg [facility] MCHC (RBC) [Mass/Vol] 30.7 g/dL 28.4 - 34.8 g/dL [facility] MCV (RBC) [Entitic vol] 97.3 fL 82.6 - 102.9 fL [facility] Monocytes/100 WBC (Bld) 1 % 1 - 7 % [facility] Morphology Demetrio (Bld) [Interp] ANISOCYTOSIS PRESENT [facility] NRBC Automated 0.0 0.0 per 100 WBC [facility] Platelet distribution width (Bld) [Ratio] 15.0 % High 11.8 - 14.4 % [facility] Platelets (Bld) [#/Vol] See Reflexed IPF Result [facility] RBC (Bld) [#/Vol] 4.15 10*6/uL 3.95 - 5.1 1 m/uL [facility] Segmented neutrophils/100 WBC (Bld) 82 % High 36 - 66 % [facility] Segs Absolute 19.11 High [facility] WBC (Bld) [#/Vol] 23.3 10*3/uL High [facility] Absolute Eos # <0.03 [facility] Absolute Immature Granulocyte 0.20 [facility] Absolute Lymph # 0.88 Low [facility] Absolute [place] # 0.50 [facility] Basophils (Bld) [#/Vol] 0.03 10*3/uL [facility] Basophils/100 WBC (Bld) 0 % 0 - 2 % [facility] Eosinophils/100 WBC (Bld) 0 % Low 1 - 4 % [facility] Hematocrit (Bld) [Volume fraction] 43.8 % 36.3 - 47.1 % [facility] Hemoglobin.gastrointe stinal spec 1 Ql (Stl) 13.5 g/dL 11.9 - 15.1 g/dL [facility] Immature granulocytes/100 WBC (Bld) 1 % High 0 [facility] Interpretation and review of laboratory results Abnormal [facility] Lymphocytes/100 WBC (Bld) 5 % Low 24 - 43 % [facility] MCH (RBC) [Entitic mass] 29.9 pg 25.2 - 33.5 pg [facility] MCHC (RBC) [Mass/Vol] 30.8 g/dL 28.4 - 34.8 g/dL [facility] MCV (RBC) [Entitic vol] 96.9 fL 82.6 - 102.9 fL [facility] Monocytes/100 WBC (Bld) 3 % 3 - 12 % [facility] NRBC Automated 0.0 0.0 per 100 WBC [facility] Platelet distribution width (Bld) [Ratio] 14.8 % High 11.8 - 14.4 % [facility] Platelet mean volume (Bld) [Entitic vol] 9.5 fL 8.1 - 13.5 fL [facility] Platelets (Bld) [#/Vol] 259 10*3/uL [facility] RBC (Bld) [#/Vol] 4.52 10*6/uL 3.95 - 5.1 1 m/uL [facility] Segmented neutrophils/100 WBC (Bld) 91 % High 36 - 65 % [facility] Segs Absolute 15.50 High [facility] WBC (Bld) [#/Vol] 17.1 10*3/uL High [facility] CBC with Diffon 08-14-2021 Abs. Basophil 0.00 k/uL Normal 0.0-0.2 [facility] Comment on above: Performed By: #### C SEBASTIAN TRAN, SED #### [employer] [address] [place], [place] [phone] Printing Equipment Mechanic: Chriss Townsend MD Abs.Imm.Granulocyte 2.56 k/uL High 0.00-0.30 [facility] Comment on above: Performed By: #### C SEBASTIAN TRAN, SED #### [employer] [address] [place], [place] [phone] Printing Equipment Mechanic: Chriss Townsend MD Abs.Neutrophil (Seg) 19.11 k/uL High 1.8-7.7 [facility] Comment on above: Performed By: #### C SEBASTIAN TRAN, SED #### [address] [address] Printing Equipment Mechanic: Chriss Townsend MD Basophils/100 WBC (Bld) 0 % Normal 0-2 [facility] Comment on above: Performed By: #### C RP, CDP, SED #### [facility] [address] [place] [phone] Printing Equipment Mechanic: Chriss Townsend MD Eosinophils (Bld) [#/Vol] 0.00 10*3/uL Normal 0.0-0.4 [facility] Comment on above: Performed By: #### C RP, CDP, SED #### [address] [address] Printing Equipment Mechanic: Chriss Townsend MD Eosinophils/100 WBC (Bld) 0 % Low 1-4 [facility] Comment on above: Performed By: #### C RP, CDP, SED #### [address] [address] Printing Equipment Mechanic: Chriss Townsend MD Immature granulocytes/100 WBC (Bld) 11 % High 0 [facility] Comment on above: Performed By: #### C RP, CDP, SED #### [address] [address] [employer]ing Equipment Mechanic: Chriss Townsend MD Lymphocytes (Bld) [#/Vol] 1.40 10*3/uL Normal 1.0-4.8 [facility] Comment on above: Performed By: #### C RP, CDP, SED #### [address] [address] Printing Equipment Mechanic: Chriss Townsend MD Lymphocytes/100 WBC (Bld) 6 % Low 24-44 [facility] Comment on above: Performed By: #### C RP, CDP, SED #### [facility] [employer] [address] [place] [phone] Printing Equipment Mechanic: Chriss Townsend MD Monocytes (Bld) [#/Vol] 0.23 10*3/uL Normal 0.1-0.8 [facility] Comment on above: Performed By: #### C RP, CDP, SED #### [address] [address] Printing Equipment Mechanic: Chriss Townsend MD Monocytes/100 WBC (Bld) 1 % Normal 1-7 [facility] Comment on above: Performed By: #### C RP, CDP, SED #### [address] [address] Printing Equipment Mechanic: Chriss Townsend MD Morphology Demetrio (Bld) [Interp] ANISOCYTOSIS PRESENT Normal [facility] Comment on above: Performed By: #### C RP, CDP, SED #### [address] [address] Printing Equipment Mechanic: Chriss Townsend MD Neutrophil (Seg) 82 % High 36-66 [facility] Comment on above: Performed By: #### C RP, CDP, SED #### [address] [address] Printing Equipment Mechanic: Chriss Townsend MD Erythrocyte distribution width (RBC) [Ratio] 15.0 % High 11.8-14.4 [facility] Comment on above: Performed By: #### C RP, CDP, SED #### [facility] [employer] [address] [place] [address] Printing Equipment Mechanic: Chriss Townsend MD Hematocrit (Bld) [Volume fraction] 40.4 % Normal 36.3-47.1 [facility] Comment on above: Performed By: #### C RP, CDP, SED #### [facility] [employer] [address] [place] [address] Printing Equipment Mechanic: Chriss Townsend MD Hemoglobin (Bld) [Mass/Vol] 12.4 g/dL Normal 11.9-15.1 [facility] Comment on above: Performed By: #### C RP, CDP, SED #### [address] [address] Printing Equipment Mechanic: Chriss Townsend MD MCH (RBC) [Entitic mass] 29.9 pg Normal 25.2-33.5 [facility] Comment on above: Performed By: #### C RP, CDP, SED #### [address] [address] Printing Equipment Mechanic: Chriss Townsend MD MCHC (RBC) [Mass/Vol] 30.7 g/dL Normal 28.4-34.8 [facility] Comment on above: Performed By: #### C RP, CDP, SED #### [place] [address] Printing Equipment Mechanic: Chriss Townsend MD MCV (RBC) [Entitic vol] 97.3 fL Normal 82.6-102.9 [facility] Comment on above: Performed By: #### C RP, CDP, SED #### [address] [address] Printing Equipment Mechanic: Chriss Townsend MD NRBC Automated 0.0 per 100 WBC Normal 0.0 [facility] Comment on above: Performed By: #### C RP, CDP, SED #### [place] [address] Printing Equipment Mechanic: Chriss Townsend MD Platelet Count See Reflexed IPF Result Normal 138-453 [facility] Comment on above: Performed By: #### C RP, CDP, SED #### [place] [address] Printing Equipment Mechanic: Chriss Townsend MD RBC (Bld) [#/Vol] 4.15 10*6/uL Normal 3.95-5.11 [facility] Comment on above: Performed By: #### C RP, CDP, SED #### [facility] [address], [place] [phone] Printing Equipment Mechanic: Chriss Townsend MD WBC (Bld) [#/Vol] 23.3 10*3/uL High 3.5-11.3 [facility] Comment on above: Performed By: #### C RP, CDP, SED #### [facility] [address], [place] [id number] Printing Equipment Mechanic: Chriss Townsend MD CKon 08-14-2021 CK [Catalytic activity/Vol] 46 U/L 26 - 192 U/L [facility] COVID-19, Rapidon 08-14-2021 SARS-CoV-2 (COVID-19) RNA GLYNN+probe Ql (Unsp spec) Not detected Not Detected [facility] Comment on above: Rapid NAAT: [...] management decisions. Fact sheet for Healthcare Providers: https://www.fda.gov/media/459960/download Fact sheet for Patients: https://www.fda.gov/media/672080/download Methodology: Isothermal Nucleic Acid Amplification Specimen Description .NASOPHARYNGEAL SWAB [facility] Comp Metabolic Pr/rfx MGon 0 08-14-2021 AST [Catalytic activity/Vol] 40 U/L High <32 [facility] Comment on above: Performed By: #### C RP, CDP, SED #### [employer] [address] [place] [address] Printing Equipment Mechanic: Chriss Townsend MD (cont.) [facility] Comment on above: Result Comment: Aver age GFR for 60-69 years old: 85 mL/min/1.73sq m Chronic Kidney Disease: <60 mL/min/1.73sq m Kidney failure: <15 mL/min/1.73sq m eGFR calculated using average adult body mass. Additional eGFR calculator available at: http://www.Writer.ly/multiple_crcl_2012.htm Performed By: #### C RP, CDP, SED #### [facility] [employer] [address] [place] [phone] Printing Equipment Mechanic: Chriss Townsend MD Albumin [Mass/Vol] 2.6 g/dL Low 3.5-5.2 [facility] Comment on above: Performed By: #### C RP, CDP, SED #### [address] [address] Printing Equipment Mechanic: Chriss Townsend MD Albumin/Glob Ratio 0.8 Low 1.0-2.5 [facility] Comment on above: Performed By: #### C RP, CDP, SED #### [facility] [employer] [address] [place] [address] Printing Equipment Mechanic: Chriss Townsend MD Alkaline Phos 165 U/L High 35-104 [facility] Comment on above: Performed By: #### C RP, CDP, SED #### [facility] [employer] [address] [place] [address] Printing Equipment Mechanic: Chriss Townsend MD ALT [Catalytic activity/Vol] 38 U/L High 5-33 [facility] Comment on above: Performed By: #### C RP, CDP, SED #### [facility] [employer] [address] [place] [phone] Printing Equipment Mechanic: Chriss Townsend MD Anion gap [Moles/Vol] 14 mmol/L Normal 9-17 [facility] Comment on above: Performed By: #### C RP, CDP, SED #### [facility] [employer] [address] [place] [phone] Printing Equipment Mechanic: Chriss Townsend MD Bilirubin [Mass/Vol] 0.60 mg/dL Normal 0.3-1.2 [facility] Comment on above: Performed By: #### C RP, CDP, SED #### [facility] [employer] [address] [place] [address] Printing Equipment Mechanic: Chriss Townsend MD Calcium [Mass/Vol] 9.3 mg/dL Normal 8.6-10.4 [facility] Comment on above: Performed By: #### C RP, CDP, SED #### [address] [address] Printing Equipment Mechanic: Chriss Townsend MD Chloride [Moles/Vol] 104 mmol/L Normal 98-107 [facility] Comment on above: Performed By: #### C RP, CDP, SED #### [address] [address] Printing Equipment Mechanic: Chriss Townsend MD CO2 [Moles/Vol] 22 mmol/L Normal 20-31 [facility] Comment on above: Performed By: #### C RP, CDP, SED #### [facility] [employer] [address] [place] [address] Printing Equipment Mechanic: Chriss Townsend MD Creatinine [Mass/Vol] 0.62 mg/dL Normal 0.50-0.90 [facility] Comment on above: Performed By: #### C RP, CDP, SED #### [facility] [employer] [address] [place] [address] Printing Equipment Mechanic: Chriss Townsend MD GFR, Amer >60 Normal >60 [facility] Comment on above: Performed By: #### C RP, CDP, SED #### [facility] [address] [place] [address] Printing Equipment Mechanic: Chriss Townsend MD GFR,non Amer >60 Normal >60 [facility] Comment on above: Performed By: #### C RP, CDP, SED #### [facility] [address] [place] [address] Printing Equipment Mechanic: Chriss Townsend MD Glucose [Mass/Vol] 94 mg/dL Normal 70-99 [facility] Comment on above: Performed By: #### C RP, CDP, SED #### [facility] [address] [place] [address] Printing Equipment Mechanic: Chriss Townsend MD Potassium [Moles/Vol] 4.1 mmol/L Normal 3.7-5.3 [facility] Comment on above: Performed By: #### C RP, CDP, SED #### [facility] [employer] [address] [place] [address] Printing Equipment Mechanic: Chriss Townsend MD Protein [Mass/Vol] 5.8 g/dL Low 6.4-8.3 [facility] Comment on above: Performed By: #### C RP, CDP, SED #### [facility] [employer] [address] [place] [address] Printing Equipment Mechanic: Chriss Townsend MD Sodium [Moles/Vol] 140 mmol/L Normal 135-144 [facility] Comment on above: Performed By: #### C RP, CDP, SED #### [facility] [address] [place] [address] Printing Equipment Mechanic: Chriss Townsend MD Urea nitrogen [Mass/Vol] 11 mg/dL Normal 8-23 [facility] Comment on above: Performed By: #### C RP, CDP, SED #### [facility] [address] [place] [address] Printing Equipment Mechanic: Chriss Townsend MD Comprehensive Metabolic Pane markell 08-14-2021 Albumin [Mass/Vol] 3.6 g/dL 3.5 - 5.2 g/dL [facility] Albumin/Globulin [Mass ratio] 1.2 {ratio} [facility] ALP (Bld) [Catalytic activity/Vol] 187 U/L High 35 - 104 U/L [facility] ALT [Catalytic activity/Vol] 31 U/L 5 - 33 U/L [facility] Anion gap [Moles/Vol] 12 mmol/L 9 - 17 mmol/L [facility] AST [Catalytic activity/Vol] 31 U/L <32 [facility] Bilirubin [Mass/Vol] 0.64 mg/dL 0.3 - 1 .2 mg/dL [facility] Calcium [Mass/Vol] 10.0 mg/dL 8.6 - 10. 4 mg/dL [facility] Chloride [Moles/Vol] 101 mmol/L 98 - 10 7 mmol/L [facility] CO2 [Moles/Vol] 27 mmol/L 20 - 31 mmol/L [facility] Creatinine [Mass/Vol] 0.55 mg/dL 0.50 - 0.90 mg/dL [facility] Free PSA/Total PSA [Mass fraction] 6.7 g/dL 6.4 - 8.3 g/dL [facility] GFR >60 >60 mL/min [facility] GFR Non- >60 >60 mL/min [facility] Glucose [Mass/Vol] 113 mg/dL High 70 - 99 mg/dL [facility] Potassium [Moles/Vol] 4.3 mmol/L 3.7 - 5.3 mmol/L [facility] Sodium [Moles/Vol] 140 mmol/L 135 - 144 mmol/L [facility] Urea nitrogen (BldV) [Mass/Vol] 12 mg/dL 8 - 23 mg/dL [facility] Urea nitrogen/Creatinine (Bld) [Mass ratio] 22 High [facility] Comprehensive Metabolic Pane l w/ Reflex to MGon 08-14-2021 Albumin [Mass/Vol] 2.6 g/dL Low 3.5 - 5.2 g/dL [facility] Albumin/Globulin [Mass ratio] 0.8 {ratio} Low [facility] ALP (Bld) [Catalytic activity/Vol] 165 U/L High 35 - 104 U/L [facility] ALT [Catalytic activity/Vol] 38 U/L High 5 - 33 U/L [facility] Anion gap [Moles/Vol] 14 mmol/L 9 - 17 mmol/L [facility] AST [Catalytic activity/Vol] 40 U/L High <32 [facility] Bilirubin [Mass/Vol] 0.60 mg/dL 0.3 - 1 .2 mg/dL [facility] Calcium [Mass/Vol] 9.3 mg/dL 8.6 - 10. 4 mg/dL [facility] Chloride [Moles/Vol] 104 mmol/L 98 - 10 7 mmol/L [facility] CO2 [Moles/Vol] 22 mmol/L 20 - 31 mmol/L [facility] Creatinine [Mass/Vol] 0.62 mg/dL 0.50 - 0.90 mg/dL [facility] Free PSA/Total PSA [Mass fraction] 5.8 g/dL Low 6.4 - 8.3 g/dL [facility] GFR >60 >60 mL/min [facility] GFR Non- >60 >60 mL/min [facility] GFR/1.73 sq M.predicted MDRD (S/P/Bld) [Vol rate/Area] [facility] Comment on above: Average GFR for 60-6 9 years old: 85 mL/min/1.73sq m Chronic Kidney Disease: <60 mL/min/1.73sq m Kidney failure: <15 mL/min/1.73sq m eGFR calculated using average adult body mass. Additional eGFR calculator available at: http://www.Writer.ly/multiple_crcl_2012.htm Glucose [Mass/Vol] 94 mg/dL 70 - 99 mg/dL [facility] Interpretation and review of laboratory results Abnormal [facility] Potassium [Moles/Vol] 4.1 mmol/L 3.7 - 5.3 mmol/L [employer] Sodium [Moles/Vol] 140 mmol/L 135 - 144 mmol/L [employer] Urea nitrogen (BldV) [Mass/Vol] 11 mg/dL 8 - 23 mg/dL [employer] SEC60mo [facility] SEC60mo EKG 12 LeadOrdered By: Ravi Henry on 08-14-2021 Atrial Rate 121 BPM [facility] Work Phone: P Pound 46 degrees [place] [employer] [facility] Work Phone: P-R Interval 120 ms [employer] SECCyantoY [facility]ALTH Work Phone: Q-T Interval 304 ms [employer] [facility] Work Phone: QRS Duration 66 ms [employer] SECLUIS ID90T [facility] Work Phone: QTc Calculation (Bazett) 431 ms [employer] Work Phone: R Pound 16 degrees [employer] SECClass Messenger [facility] Work Phone: T Pound 33 degrees [employer] Work Phone: Ventricular Rate 121 BPM [facility] [employer] Work Phone: [employer] Work Phone: EKG 12 Leadon 08-14-2021 Sinus tachycardia Possible Left atrial enlargement Cannot rule out Inferior infarct , age undetermined Abnormal ECG Confirmed by KIRA HENRY ([id number]) on 08/14/2021 12:32:57 PM [facility] RADIOLOGY Kira Henry MD - 08/14/2021 Sinus tachycardia Possible Left atrial enlargement Cannot rule out Inferior infarct , age undetermined Abnormal ECG Confirmed by KIRA HENRY ([id number]) on 08/14/2021 12:32:57 PM [employer] Work Phone: Immature Platelet Fractionon 08-14-2021 Platelet, Fluorescence 243 [employer] Platelet, Immature Fraction 2.2 % 1.1 - 10.3 % [facility] Laboratory - Chemistry and C hemistry - challengeon 08-14-2021 GFR/1.73 sq M.predicted MDRD (S/P/Bld) [Vol rate/Area] [facility] Comment on above: Average GFR for 60-6 9 years old: 85 mL/min/1.73sq m Chronic Kidney Disease: <60 mL/min/1.73sq m Kidney failure: <15 mL/min/1.73sq m eGFR calculated using average adult body mass. Additional eGFR calculator available at: http://www.Writer.ly/multiple_crcl_2012.htm Stage 1: Some kidney damage normal GFR Stage 2: Mild kidney damage GFR 60-89 Stage 3: Moderate kidney damage GFR 30-59 Stage 4: Severe kidney damage GFR 15-29 Stage 5: Severe kidney damage GFR <15 ESRD - chronic treatment by dialysis or transplant Lactate, Sepsison 08-14-2021 Interpretation and review of laboratory results Abnormal [facility] Lactic Acid, Sepsis, Whole Blood 3.0 mmol/L High 0.5 - 1.9 mmol/L [facility] Lactic Acidon 08-14-2021 Lactic Acid,Whole Bl 2.8 mmol/L High 0.7-2.1 [facility] Comment on above: Performed By: #### C RP, CDP, SED #### [employer] [facility] [place] [phone] Printing Equipment Mechanic: Chriss Townsend MD Interpretation and review of laboratory results Abnormal [facility] Lactic Acid, Whole Blood 2.8 mmol/L High 0.7 - 2.1 mmol/L [facility] Lactate [Moles/Vol] 1.8 mmol/L 0.5 - 2. 2 mmol/L [facility] Lipaseon 08-14-2021 Lipase [Catalytic activity/Vol] 25 U/L 13 - 60 U/L [facility] Microscopic Urinalysison - [facility] [employer] Bacteria, UA 3+ Abnormal None [facility] Epithelial Cells UA 2 TO 5 [facility] Interpretation and review of laboratory results Abnormal [facility] RBC, UA 5 TO 10 [facility] WBC, UA 2 TO 5 [facility] No Panel Informationon 08-14 No evidence of necrotizing fasciitis throughout the visualized left lower extremity. Healing fracture evident at the body of the left pubis and mid right inferior pubic ramus. Questionable very subtle nondisplaced fracture at the anterior aspect of the left acetabulum. This may represent artifact. [facility] EXAMINATION: CT OF THE LEFT FEMUR [...] hindfoot. Joint: Mild degenerative changes incidentally noted. [facility] Mik Cantu - 08/14/2021 EXAMINATION: CT [...] the left acetabulum. This may represent artifact. [facility] Phone: [facility] Phone: Addendum by Mik Cantu on 08/15/2021 12:34 AM EDT ADDENDUM: Critical results were called by Dr. Mik Cantu to Dr. Mcelroy on 08/15/2021 at 00:07. [facility] Phone: Soft tissue air identified within upper [...] the lateral aspect of the upper arm. [facility] EXAMINATION: CT OF THE RIGHT HUMERUS [...] No significant degenerative changes. No osseous erosions. [facility] iMk Cantu - 08/14/2021 EXAMINATION: CT OF THE [...] the lateral aspect of the upper arm. [facility] Work Phone: Radiology Study observation (narrative) [facility] Work Phone: Radiology Study observation (narrative) [facility] [employer] Work Phone: [facility] [employer] Radiology Study observation (narrative) [facility] [employer] Work Phone: Interpretation and review of laboratory results Abnormal [facility] [employer] [facility] [employer] No Panel InformationOrdered By: Mik Cantu on 08-14-2021 [facility] Phone: PLT, Immature Fract.on 08-14 Platelet, Fluoresc. 243 k/uL Normal 138-453 [facility] Comment on above: Performed By: #### C RP, CDP, SED #### [employer] [facility] [place] [address] Printing Equipment Mechanic: Chriss Townsend MD PLT, Immature Fract. 2.2 % Normal 1.1-10.3 [facility] Comment on above: Performed By: #### C RP, CDP, SED #### [facility] [address] [place] [phone] Printing Equipment Mechanic: Chriss Townsend MD PTon 5 INR Coag (PPP) [Relative time] 1.0 {INR} Normal [facility] Comment on above: Result Comment: Therapeutic Range: Moderate Anticoagulant Intensity: INR = 2.0-3.0 High Anticoagulant Intensity: INR = 2.5-3.5 Performed By: #### L ACTIC #### [facility] [employer] [address] [place] [phone] [employer]ing Equipment Mechanic: Chriss Townsend MD PT Coag (PPP) [Time] 10.4 s Normal 9.1-12.3 [facility] Comment on above: Performed By: #### L ACTIC #### [facility] [employer] [address] [place] [phone] [employer]ing Equipment Mechanic: Chriss Townsend MD Procalcitoninon 9 Interpretation and review of laboratory results Abnormal [facility] Procalcitonin 3.47 ng/mL High <0.09 [facility] Comment on above: Suspected Sepsis: [...] entered into the Change in Procalcitonin Calculator (www.qcnibh-ych-oczwshdoxv.Ligon Discovery) to determine the patient's Mortality Risk Prognosis In healthy neonates, plasma Procalcitonin (PCT) concentrations increase gradually after , reaching peak values at about 24 hours of age then decrease to normal values below 0.5 ng/mL by 48-72 hours of age. [facility] Protime-INRon 08-14-2021 INR Coag (Bld) [Relative time] 1.0 {INR} [facility] Comment on above: Therapeutic Range: Moderate Anticoagulant Intensity: INR = 2.0-3.0 High Anticoagulant Intensity: INR = 2.5-3.5 PT Coag (PPP) [Time] 10.4 s [facility] INR Coag (Bld) [Relative time] 1.2 {INR} [facility] Comment on above: Non-therapeutic Range: INR = 0.9-1.2 Therapeutic Range: Moderate Anticoagulant Intensity: INR = 2.0-3.0 High Anticoagulant Intensity: INR = 2.5-3.5 Interpretation and review of laboratory results Abnormal [facility] PT Coag (PPP) [Time] 14.6 s High [facility] [id number] 08-14-2021 SARS-CoV-2 (COVID-19) RNA GLYNN+probe Ql (Unsp spec) Not detected Normal [facility] Comment on above: Result Comment: Rapid [...] management decisions. Fact sheet for Healthcare Providers: https://www.fda.gov/media/439620/download Fact sheet for Patients: https://www.fda.gov/media/932434/download Methodology: Isothermal Nucleic Acid Amplification Performed By: #### C OVRB #### [facility] [address] [place] [phone] Printing Equipment Mechanic: Chriss Townsend MD SPECIMEN REJECTIONon Ordered Test PT PTT [facility] [employer] Specimen source Nom (Unsp spec) .BLOOD [facility] Sedimentation Rateon Sedimentation Rate 84 mm/Hr High 0-30 [facility] Comment on above: Performed By: #### C RP, CDP, SED #### [facility] [address] [place] [phone] Printing Equipment Mechanic: Chriss Townsend MD Interpretation and review of laboratory results Abnormal [facility] [employer] Sed Rate 84 High [facility] Interpretation and review of laboratory results Abnormal [facility] Sed Rate 66 High [facility] Specimen Rejectionon Source of sample .BLOOD Normal [facility] Comment on above: Performed By: #### C RP, CDP, SED #### [facility] [address] [place] [phone] Printing Equipment Mechanic: Chriss Townsend MD Test ordered PT PTT Normal [facility] Comment on above: Performed By: #### C RP, CDP, SED #### [employer] [address] [place] [phone] Printing Equipment Mechanic: Chriss Townsend MD Reason for Rejection Unable to perform testing: Specimen clotted. Normal [facility] Comment on above: Performed By: #### C RP, CDP, SED #### [facility] [address] [place] [address] [phone] Printing Equipment Mechanic: Chriss Townsend MD Troponinon 08-14-2021 Troponin, High Sensitivity 7 ng/L 0 - 14 ng/L [facility] Comment on above: High Sensitivity Troponin values cannot be compared with other Troponin methodologies. Patients with high levels of Biotin oral intake (i.e >5mg/day) may have falsely decreased Troponin levels. Samples collected within 8 hours of biotin intake may require additional information for diagnosis. [facility] Urinalysis with Reflex to Cu ltureon 08-14-2021 Bilirubin Urine Negative NEGATIVE [facility] Color, UA Yellow Yellow [facility] Glucose, Ur Negative NEGATIVE [facility] Interpretation and review of laboratory results Abnormal [facility] Ketones Ql (U) Negative NEGATIVE [facility] Leukocyte esterase Test strip Ql (U) Negative NEGATIVE [facility] Nitrite, Urine Positive Abnormal NEGATIVE [facility] pH, UA 6.5 [facility] Protein, UA Negative NEGATIVE [facility] Specific [place], UA 1.010 [facility] Turbidity UA Clear Clear [facility] Urine Hgb 1+ Abnormal NEGATIVE [facility] Urobilinogen, Urine Normal Normal [facility] XR PELVIS (MIN 3 VIEWS)on XR [...] Bhumika Clark MD 08/14/21 Final result Normal [facility] Nondisplaced fractur e of the left superior and inferior pubic rami at the pubic symphysis with ongoing healing. Nondisplaced right superior and inferior pubic rami fractures with ongoing healing. Nondisplaced bilateral sacral ala fractures with ongoing healing. [facility] EXAMINATION: ONE XRAY VIEW OF THE [...] urinary bladder and partially obscures oblique views.. [facility] Bhumika Clark MD - 08/14/2021 EXAMINATION: [...] bilateral sacral ala fractures with ongoing healing. [facility] Phone: XR PELVIS (MIN 3 VIEWS)Order ed By: Bhumika Clark on 08-14-2021 [facility] Phone: XR SHOULDER RIGHT (MIN 2 VIE [...] Boni Spain MD 08/14/21 Final result Normal [facility] No acute abnormality . [facility] EXAMINATION: THREE XRAY VIEWS OF THE RIGHT SHOULDER 08/14/2021 7:13 pm COMPARISON: None. HISTORY: ORDERING SYSTEM PROVIDED HISTORY: effusion TECHNOLOGIST PROVIDED HISTORY: AP, scapular Y, axillary. Thank you. effusion FINDINGS: Glenohumeral joint is normally aligned. No evidence of acute fracture or dislocation. No abnormal periarticular calcifications. AC joint and glenohumeral joint degenerative changes Visualized lung is unremarkable. [facility] Boni Spain MD - 08/14/2021 EXAMINATION: [...] lung is unremarkable. IMPRESSION: No acute abnormality. [facility] Phone: XR SHOULDER RIGHT (MIN 2 VIE WS)Ordered By: Boni Spain on 08-14-2021 [facility] Phone: CULTURE URINEon 07-22-2021 CULTURE URINE Isolate [...] Trimethoprim/Sulfamethoxa zole <=20 S F Normal [facility] Comment on above: Performed By: #### C VDTBH #### [facility] [address] [place] [address] Dr. Laila Castle CBC AUTO DIFFon 07-20-2021 BASO # 0.1 103/ul Normal 0.0-0.1 [facility] Comment on above: Performed By: #### P OCGLUC #### [facility] [address] [place] [address] Dr. Laila Castle Basophils/100 WBC (Bld) 0.4 % Normal 0.2-2.0 [facility] Comment on above: Performed By: #### P OCGLUC #### [facility] [address] [place] [address] Dr. Laila Castle EO # 0.0 103/ul Normal 0.0-0.7 [facility] Comment on above: Performed By: #### P OCGLUC #### [facility] [address] [place] [address] Dr. Laila Castle Eosinophils/100 WBC (Bld) 0.1 % Critically low 0.9-7.0 [facility] Comment on above: Performed By: #### P OCGLUC #### [facility] [address] [place] [address] Dr. Laila Castle Erythrocyte distribution width (RBC) [Ratio] 14.9 % Normal 11.0-15.0 [facility] Comment on above: Performed By: #### P OCGLUC #### [facility] [address] [place] [address] Dr. Laila Castle Hematocrit (Bld) [Volume fraction] 41.0 % Normal 36.0-48.0 [facility] Comment on above: Performed By: #### P OCGLUC #### [facility] [address] [address] [address] Laila Castle Hemoglobin (Bld) [Mass/Vol] 13.4 g/dL Normal 12.0-16.0 [facility] Comment on above: Performed By: #### P OCGLUC #### [facility] [address] [address] [address] Laila Castle IG # 0.24 10e3/ul Critically high 0.00-0.03 [facility] Comment on above: Performed By: #### P OCGLUC #### [facility] [address] [address] [address] Laila Castle IG % 1.5 % Critically high 0.0-0.5 [facility] Comment on above: Performed By: #### P OCGLUC #### [facility] [address] [address] [address] Laila Castle LYMPH # 1.2 103/ul Normal 1.2-3.8 [facility] Comment on above: Performed By: #### P OCGLUC #### [facility] [address] [address] [address] Laila Castle Lymphocytes/100 WBC (Bld) 7.5 % Critically low 20.5-60.0 [facility] Comment on above: Performed By: #### P OCGLUC #### [facility] [address] [address] [address] Laila Castle MANUAL DIFF REQ NO Normal [facility] Comment on above: Performed By: #### P OCGLUC #### [facility] [address] [address] [address] Laila Castle MCH (RBC) [Entitic mass] 30.2 pg Normal 26.7-34.0 [facility] Comment on above: Performed By: #### P OCGLUC #### [facility] [address] [place] [address] Dr. Laial Castle MCHC (RBC) [Mass/Vol] 32.7 g/dL Normal 29.9-35.2 [facility] Comment on above: Performed By: #### P OCGLUC #### [facility] [address] [address] [address] Laila Castle MCV (RBC) [Entitic vol] 92.6 fL Normal 81.0-99.0 [facility] Comment on above: Performed By: #### P OCGLUC #### [facility] [address] [address] [address] Laila Castle MONO # 0.8 103/ul Normal 0.3-0.8 [facility] Comment on above: Performed By: #### P OCGLUC #### [facility] [address] [address] [address] Laila Castle Monocytes/100 WBC (Bld) 5.3 % Normal 1.7-12.0 [facility] Comment on above: Performed By: #### P OCGLUC #### [facility] [address] [place] [address] Dr. Laila Castle NEUT # 13.5 103/ul Critically high 1.4-6.5 [facility] Comment on above: Performed By: #### P OCGLUC #### [facility] [address] [place] [address] Dr. Laila Castle Neutrophils/100 WBC (Bld) 85.2 % Critically high 43.0-75.0 [facility] Comment on above: Performed By: #### P OCGLUC #### [facility] [address] [place] [address] Dr. Laila Castle Platelet mean volume (Bld) [Entitic vol] 9.3 fL Critically low 9.5-13.5 [facility] Comment on above: Performed By: #### P OCGLUC #### [facility] [address] [place] [address] Dr. Laila Castle PLT 263 103/ul Normal 150-450 [facility] Comment on above: Performed By: #### P OCGLUC #### [facility] [address] [place] [address] Dr. Laila Castle RBC 4.43 106/ul Normal 4.20-5.40 [facility] Comment on above: Performed By: #### P OCGLUC #### [facility] [address] [place], [place] [address] Dr. Laila Castle WBC 15.9 103/ul Critically high 4.0-11.0 [facility] Comment on above: Performed By: #### P OCGLUC #### [facility] [address] [place], [place] [address] LSPINE WO CONon [...] by: ZAN KRAUSE Date: 2021-07-20 10:25 Normal [facility] ER URINE PROFILEon 2 Bilirubin Ql (U) Negative Normal NEGATIVE [facility] Comment on above: Performed By: #### C MP #### [facility] [address] [place] [address] Dr. Laila Castle Clarity (U) CLEAR Normal CLEAR [facility] Comment on above: Performed By: #### C MP #### [facility] [address] [place] [address] Dr. Laila Castle Color (U) LT. YELLOW Normal YELLOW [facility] Comment on above: Performed By: #### C MP #### [facility] [address] [place] [address] Dr. Laila Castle ERUAHD A micrscopic examina tion will be performed if indicated. Normal [facility] Comment on above: Performed By: #### C MP #### [facility] [address] [place] [address] Dr. Laila Castle Glucose Ql (U) Negative Normal NEGATIVE [facility] Comment on above: Performed By: #### C MP #### [facility] [address] [place] [address] Dr. Laila Castle Hemoglobin Ql (U) Negative Normal NEGATIVE [facility] Comment on above: Performed By: #### C MP #### [facility] [address] [place] [address] Dr. Laila Castle Ketones Ql (U) Negative Normal NEGATIVE [facility] Comment on above: Performed By: #### C MP #### [facility] [address] [place] [address] Dr. Laila Castle LEUKOCYTES SMALL Abnormal NEGATIVE [facility] Comment on above: Performed By: #### C MP #### [facility] [address] [place] [address] Dr. Laila Castle Nitrite Ql (U) Negative Normal NEGATIVE [facility] Comment on above: Performed By: #### C MP #### [facility] [address] [place] [address] Dr. Laila Castle pH (U) 6.0 [pH] Normal 5-9 [facility] Comment on above: Performed By: #### C MP #### [facility] [address] [place] [address] Dr. Laila Castle SPEC GRAVITY <=1.005 Abnormal 1.005-<=1.0 25 [facility] Comment on above: Performed By: #### C MP #### [facility] [address] [place] [address] Dr. Laila Castle UA PROTEIN Negative Normal NEGATIVE/ TRACE [facility] Comment on above: Performed By: #### C MP #### [facility] [address] [place] [address] Dr. Laila Castle UR MICRO IND INDICATED Normal [facility] Comment on above: Performed By: #### C MP #### [facility] [address] [place] [address] Dr. Laila Castle Urobilinogen Qn (U) 0.2 {Mehran'U}/dL Normal 0.2 - 1. 0 [facility] Comment on above: Performed By: #### C MP #### [facility] [address] [place] [address] Dr. Laila Castle PROF CHEM 8 (BAS METB)on Anion gap [Moles/Vol] 12.1 mmol/L Normal [facility] Comment on above: Performed By: #### P OCGLUC #### [facility] [address] [address] [address] Laila Castle Calcium [Mass/Vol] 9.7 mg/dL Normal 8.5-10.1 [facility] Comment on above: Performed By: #### P OCGLUC #### [facility] [address] [address] [address] Laila Castle Chloride [Moles/Vol] 94 mmol/L Critically low 98-107 [facility] Comment on above: Performed By: #### P OCGLUC #### [facility] [address] [address] [address] Laila Castle CO2 [Moles/Vol] 33.7 mmol/L Critically high 21.0-32.0 [facility] Comment on above: Performed By: #### P OCGLUC #### [facility] [address] [address] [address] Laila Castle Creatinine [Mass/Vol] 0.59 mg/dL Normal 0.55-1.02 [facility] Comment on above: Performed By: #### P OCGLUC #### [facility] [address] [place] [address] Dr. Laila Castle EGFR-AF BAHAMIAN >60 Normal >=60 [facility] Comment on above: Performed By: #### P OCGLUC #### [facility] [address] [address] [address] Laila Castle EGFR-NON AF BAHAMIAN >60 Normal >=60 [facility] Comment on above: Performed By: #### P OCGLUC #### [facility] [address] [address] [address] Laila Castle Glucose [Mass/Vol] 88 mg/dL Normal 74-106 [facility] Comment on above: Performed By: #### P OCGLUC #### [facility] [address] [address] [address] Laila Castle Potassium [Moles/Vol] 3.8 mmol/L Normal 3.5-5.1 [facility] Comment on above: Performed By: #### P OCGLUC #### [facility] [address] [place] [address] Dr. Laila Castle Sodium [Moles/Vol] 136 mmol/L Normal 136-145 [facility] Comment on above: Performed By: #### P OCGLUC #### [facility] [address] [place] [address] Dr. Laila Castle Urea nitrogen [Mass/Vol] 15.0 mg/dL Normal 7.0-18.0 [facility] Comment on above: Performed By: #### P OCGLUC #### [facility] [address] [place] [address] Dr. Laila Castle Urea nitrogen/Creatinine [Mass ratio] 25.4 mg/mg Normal [facility] Comment on above: Performed By: #### P OCGLUC #### [facility] [address] [place] [address] Dr. Laila Castle URINE MICROSCOPIC ONLYon BACTERIA LARGE Abnormal NONE SEEN [facility] Comment on above: Performed By: #### C MP #### [facility] [address] [place] [address] Dr. Laila Castle Bacteria identified Cx Nom (U) CX ALREADY ORDERED Normal [facility] Comment on above: Performed By: #### C MP #### [facility] [address] [place] [address] Dr. Laila Castle CAST NONE SEEN Normal NONE SEEN [facility] Comment on above: Performed By: #### C MP #### [facility] [address] [place] [address] Dr. Laila Castle Crystals LM Nom (Urine sed) NONE SEEN Normal NONE SEEN [facility] Comment on above: Performed By: #### C MP #### [facility] [address] [place] [address] Dr. Laila Castle Epithelial cells LM Ql (Urine sed) FEW Abnormal NONE SEEN /RARE [facility] Comment on above: Performed By: #### C MP #### [facility] [address] [place] [address] Dr. Laila Castle MUCOUS TRACE Abnormal NONE SEEN [facility] Comment on above: Performed By: #### C MP #### [facility] [address] [place] [address] Dr. Laila Castle RBC 0-2 Normal 0-2 [facility] Comment on above: Performed By: #### C MP #### [facility] [address] [place] [address] Dr. Laila Castle TRICH SEEN Abnormal NONE SEEN [facility] Comment on above: Result Comment: Prev iously reported as: (blank) On 07/20/2021 12:03 By KD3 Performed By: #### C MP #### [facility] [address] [place] [address] Dr. Laila Castle WBC 2-5 Abnormal NONE SEEN [facility] Comment on above: Performed By: #### C MP #### [facility] [address] [place] [address] Dr. Laila Castle BACTERIA TRACE Abnormal NONE SEEN [facility] Comment on above: Performed By: #### C MP #### [facility] [address] [place] [address] Dr. Laila Castle Bacteria identified Cx Nom (U) INDICATED Normal [facility] Comment on above: Performed By: #### C MP #### [facility] [address] [place] [address] Dr. Laila Castle CAST NONE SEEN Normal NONE SEEN [facility] Comment on above: Performed By: #### C MP #### [facility] [address] [place] [address] Dr. Laila Castle Crystals LM Nom (Urine sed) NONE SEEN Normal NONE SEEN [facility] Comment on above: Performed By: #### C MP #### [facility] [address] [place] [address] Dr. Laila Castle Epithelial cells LM Ql (Urine sed) RARE Normal NONE SEEN /RARE [facility] Comment on above: Performed By: #### C MP #### [facility] [address] [place] [address] Dr. Laila Castle MUCOUS SMALL Abnormal NONE SEEN [facility] Comment on above: Performed By: #### C MP #### [facility] [address] [address] [address] Laila Castle RBC NONE SEEN Abnormal 0-2 [facility] Comment on above: Performed By: #### C MP #### [facility] [address] [address] [address] Laila Castle TRICH SEEN Abnormal NONE SEEN [facility] Comment on above: Performed By: #### C MP #### [facility] [address] [address] [address] Laila Castle WBC 2-5 Abnormal NONE SEEN [facility] Comment on above: Performed By: #### C MP #### [facility] [address] [address] [address] Laila Castle XR LSPINE 2_3 VIEWSon [...] COLLETTE ELIZONDO Date: 2021-07-18 13:41 Normal [facility] Vital Signs Date Time Vital Sign Value Performing Clinician Facility 12-30-2022 10:00-0400 Body height 165.1 cm Moises Jose Other [facility] 10-27-2022 16:21-0400 SaO2% (BldA) [Mass fraction] 96 % Charanjit Hu MD Work Phone: [facility] 10-27-2022 14:22-0400 Diastolic blood pressure 51 mm[Hg] Charanjit Hu MD Work Phone: [facility] 10-27-2022 14:22-0400 Systolic blood pressure 137 mm[Hg] Charanjit Hu MD Work Phone: [facility] 10-27-2022 12:33-0400 Body temperature 98.01 [degF] Charanjit Hu MD Work Phone: [facility] 10-27-2022 12:33-0400 Heart rate 96 /min Charanjit Hu MD Work Phone: [facility] 10-27-2022 12:33-0400 Respiratory rate 13 /min Charanjit Hu MD Work Phone: [facility] 10-17-2022 06:27-0400 Body temperature 98.1 [degF] Kelsie Wilsl MD Work Phone: [facility] 10-17-2022 06:27-0400 Diastolic blood pressure 65 mm[Hg] Kelsie Wills MD Work Phone: [facility] 10-17-2022 06:27-0400 Heart rate 92 /min Kelsie Wills MD Work Phone: [facility] 10-17-2022 06:27-0400 Respiratory rate 20 /min Kelsie Wills MD Work Phone: [facility] 10-17-2022 06:27-0400 SaO2% (BldA) [Mass fraction] 96 % Kelsie Wills MD Work Phone: [facility] 10-17-2022 06:27-0400 Systolic blood pressure 137 mm[Hg] Kelsie Wills MD Work Phone: [facility] 10-14-2022 19:00-0400 Body height 162.6 cm Kelsie Wills MD Work Phone: [facility] 10-03-2022 10:20-0400 Body height 165.1 cm Moises Garcia Other [facility] 10-03-2022 10:20-0400 Body mass index (BMI) [Ratio] 31.61 kg/m2 Moises Garcia Other [facility] 10-03-2022 10:20-0400 Body weight 86.18 kg Moises Garcia Other [facility] 10-03-2022 10:20-0400 Diastolic blood pressure 75 mm[Hg] Moises Garcia Other [facility] 10-03-2022 10:20-0400 Systolic blood pressure 168 mm[Hg] Moises Garcia Other [facility] 09-26-2022 09:57-0400 Inhaled oxygen flow rate 2 L/min DO Bhumika Ball Work Phone: [facility] 09-26-2022 08:12-0400 Body temperature 98.1 [degF] DO Bhumika Ball Work Phone: [facility] 09-26-2022 08:12-0400 Diastolic blood pressure 83 mm[Hg] DO Bhumika Ball Work Phone: [facility] 09-26-2022 08:12-0400 Heart rate 94 /min DO Bhumika Ball Work Phone: [facility] 09-26-2022 08:12-0400 Respiratory rate 18 /min DO Bhumika Ball Work Phone: [facility] 09-26-2022 08:12-0400 SaO2% (BldA) [Mass fraction] 99 % DO Bhumika Ball Work Phone: [facility] 09-26-2022 08:12-0400 Systolic blood pressure 161 mm[Hg] DO Bhumika Ball Work Phone: [facility] 09-25-2022 07:16-0400 Body height 162.56 cm DO Bhumika Ball Work Phone: [facility] 09-21-2022 05:44-0400 Body weight 88.7 kg DO Bhumika Ball Work Phone: [facility] 09-17-2022 15:44-0400 Body temperature 97.9 [degF] DO Bhumika Ball Work Phone: [facility] 09-17-2022 15:44-0400 Diastolic blood pressure 86 mm[Hg] DO Bhumika Ball Work Phone: [facility] 09-17-2022 15:44-0400 Heart rate 102 /min DO Bhumika Ball Work Phone: [facility] 09-17-2022 15:44-0400 Inhaled oxygen flow rate 2 L/min DO Bhumika Ball Work Phone: [facility] 09-17-2022 15:44-0400 SaO2% (BldA) [Mass fraction] 98 % DO Bhumika Ball Work Phone: [facility] 09-17-2022 15:44-0400 Systolic blood pressure 147 mm[Hg] DO Bhumika Ball Work Phone: [facility] 09-17-2022 15:31-0400 Respiratory rate 18 /min DO Bhumika Ball Work Phone: [facility] 09-17-2022 06:00-0400 Body weight 91.3 kg DO Bhumika Ball Work Phone: [facility] 09-15-2022 07:54-0400 Body height 162.56 cm DO Bhumika Ball Work Phone: [facility] 09-15-2022 07:54-0400 Body mass index (BMI) [Ratio] 33.4 kg/m2 DO Bhumika Ball Work Phone: [facility] 09-05-2022 15:15-0400 Diastolic blood pressure 90 mm[Hg] [facility] 09-05-2022 15:15-0400 Heart rate 114 /min [facility] 09-05-2022 15:15-0400 SaO2% (BldA) [Mass fraction] 97 % [facility] Comment on above: 2L [place] 09-05-2022 15:15-0400 Systolic blood pressure 141 mm[Hg] [facility] 08-26-2022 08:45-0400 Body height 165.1 cm Bhumika Ball Other [facility] 08-26-2022 08:45-0400 Body mass index (BMI) [Ratio] 33.81 kg/m2 Bhumika Ball Other [facility] 08-26-2022 08:45-0400 Body weight 92.17 kg Bhumika Ball Other [facility] 08-26-2022 08:45-0400 Diastolic blood pressure 82 mm[Hg] Bhumika Ball Other [facility] 08-26-2022 08:45-0400 Respiratory rate 25 /min Bhumika Ball Other [facility] 08-26-2022 08:45-0400 Systolic blood pressure 140 mm[Hg] Bhumika Ball Other [facility] 07-30-2022 09:45-0400 Body height 165.1 cm Bhumika Ball Other [facility] 07-30-2022 09:45-0400 Body mass index (BMI) [Ratio] 33.81 kg/m2 Bhumika Ball Other [facility] 07-30-2022 09:45-0400 Body weight 92.17 kg Bhumika Ball Other [facility] 07-30-2022 09:45-0400 Diastolic blood pressure 86 mm[Hg] Bhumika Ball Other [facility] 07-30-2022 09:45-0400 Respiratory rate 20 /min Bhumika Ball Other [facility] 07-30-2022 09:45-0400 Systolic blood pressure 118 mm[Hg] Bhumika Ball Other [facility] Other 07-30-2022 08:45-0400 Body height 165.1 cm Bhumika Ball Other [facility] 07-30-2022 08:45-0400 Body mass index (BMI) [Ratio] 33.81 kg/m2 Bhumika Ball Other [facility] 07-30-2022 08:45-0400 Body weight 92.17 kg Bhumika Ball Other [facility] 07-30-2022 08:45-0400 Diastolic blood pressure 86 mm[Hg] Bhumika Ball Other [facility] Other 07-30-2022 08:45-0400 Respiratory rate 20 /min Bhumika Ball Other [facility] Other 07-30-2022 08:45-0400 Systolic blood pressure 118 mm[Hg] Bhumika Ball Other [facility] Other 04-30-2022 11:30-0500 Body height 165.1 cm Bhumika Ball Other [facility] 04-30-2022 11:30-0500 Body mass index (BMI) [Ratio] 32.28 kg/m2 Bhumika Ball Other [facility] 04-30-2022 11:30-0500 Body weight 88 kg Bhumika Ball Other [facility] 04-30-2022 11:30-0500 Diastolic blood pressure 82 mm[Hg] Bhumika Ball Other [facility] 04-30-2022 11:30-0500 Respiratory rate 20 /min Bhumika Ball Other [facility] Other 04-30-2022 11:30-0500 SaO2% (BldA) [Mass fraction] 94 % Bhumika Ball Other [facility] 04-30-2022 11:30-0500 Systolic blood pressure 126 mm[Hg] Bhumika Ball Other [facility] Other 08-21-2021 12:19-0400 Body height 162.6 cm Silviano Haro MD [facility] [employer] 08-21-2021 08:01-0400 Body temperature 97.7 [degF] Silviano Haro MD [facility] [employer] 08-21-2021 08:01-0400 Diastolic blood pressure 82 mm[Hg] Silviano Haro MD [facility] [employer] 08-21-2021 08:01-0400 Heart rate 95 /min Silviano Haro MD [facility] [employer] 08-21-2021 08:01-0400 Respiratory rate 29 /min Silviano Haro MD [facility] [employer] 08-21-2021 08:01-0400 SaO2% (BldA) [Mass fraction] 92 % Silviano Haro MD [facility] [employer] 08-21-2021 08:01-0400 Systolic blood pressure 151 mm[Hg] Silviano Haro MD [facility] [employer] 08-19-2021 05:48-0400 Body mass index (BMI) [Ratio] 40.3 kg/m2 Silviano Haro MD [facility] [employer] 08-19-2021 05:48-0400 Body weight 106.5 kg Silviano Haro MD [facility] 08-14-2021 15:30-0400 Diastolic blood pressure 92 mm[Hg] Dylan Mcdowell MD Work Phone: [facility] 08-14-2021 15:30-0400 Heart rate 126 /min Dylan Mcdowell MD Work Phone: [facility] 08-14-2021 15:30-0400 Respiratory rate 17 /min Dylan Mcdowell MD Work Phone: [facility] 08-14-2021 15:30-0400 SaO2% (BldA) [Mass fraction] 94 % Dylan Mcdowell MD Work Phone: [facility] 08-14-2021 15:30-0400 Systolic blood pressure 123 mm[Hg] Dylan Mcdowell MD Work Phone: [facility] 08-14-2021 13:28-0400 Body temperature 100.9 [degF] Dylan Mcdowell MD Work Phone: [facility] 08-14-2021 07:17-0400 Body height 160 cm Dylan Mcdowell MD Work Phone: [facility] 08-14-2021 07:17-0400 Body mass index (BMI) [Ratio] 37.73 kg/m2 Dylan Mcdowell MD Work Phone: [facility] 08-14-2021 07:17-0400 Body weight 96.62 kg Dylan Mcdowell MD Work Phone: [facility] Encounters Encounter Date Encounter Type Care Provider Facility Start: 03-12-2023 End: 03-12-2023 ambulatory Bhumika Stacy Other [employer] Other Start: 03-12-2023 Sbsq nursing facil care/day new problem 25 min Bhumika Stacy [facility] Start: 02-19-2023 End: 02-19-2023 ambulatory Bhumika Stacy Other [employer] Other Start: 02-19-2023 Sbsq nursing facil care/day new problem 25 min Bhumika Stacy [facility] Start: 02-16-2023 End: 02-16-2023 ambulatory Bhumika Stacy Other [employer] Other Start: 02-16-2023 Telephone encounter Bhumika Ball [facility] Start: 02-04-2023 End: 02-04-2023 ambulatory Bhumika Godfrey Other [employer] Other Start: 02-04-2023 Telephone encounter Bhumika Ball [facility] Start: 01-28-2023 End: 01-28-2023 ambulatory Bhumika Godfrey Other [employer] Other Start: 01-28-2023 Telephone encounter Bhumika Ball [facility] Start: 01-23-2023 End: 01-23-2023 ambulatory Bhumika Godfrey Other [employer] Other Start: 01-23-2023 Telephone encounter Bhumika Ball [facility] Start: 01-15-2023 End: 01-15-2023 ambulatory Bhumika Ball Other [employer] Other Start: 01-15-2023 Telephone encounter Bhumika Ball [facility] Start: 01-12-2023 End: 01-12-2023 ambulatory Bhumika Ball Other [employer] Other Start: 01-12-2023 Telephone encounter Bhumika Ball [facility] Start: 01-11-2023 End: 01-11-2023 ambulatory Bhumika Ball Other [employer] Other Start: 01-11-2023 Telephone encounter Bhumika Ball [facility] Start: 01-06-2023 End: 01-06-2023 ambulatory Bhumika Ball Other [employer] Other Start: 01-06-2023 Telephone encounter Bhumika LACKEY [facility] Start: 01-02-2023 End: 01-02-2023 ambulatory Bhumika Stacy Other [employer] Other Start: 01-02-2023 Telephone encounter Bhumika LACKEY [facility] Start: 01-01-2023 End: 01-01-2023 ambulatory Bhumika Stacy Other [employer] Other Start: 01-01-2023 Initial nursing faci lity care/day 35 minutes Bhumika Stacy [facility] Start: 12-30-2022 End: 12-30-2022 ambulatory Moises Garcia Other [employer] Other Start: 12-30-2022 Office outpatient vi sit 25 minutes Moises Garcia [facility] Start: 12-10-2022 End: 12-10-2022 ambulatory Moises Garcia Other [employer] Other Start: 12-10-2022 Telephone encounter Moises Garcia [facility] Start: 11-25-2022 End: 11-26-2022 ambulatory BHUMIKA STACY [facility] Start: 11-25-2022 End: 11-26-2022 ambulatory HECTOR WADE MADISYN [facility] Start: 11-18-2022 End: 11-19-2022 ambulatory HECTOR LUIS ANGEL [facility] Start: 11-14-2022 End: 11-14-2022 ambulatory Moises Garcia Facility:[facility] Start: 11-14-2022 End: 11-14-2022 ambulatory DO Bhumika Stacy Work Phone: [facility] Work Phone: Start: 11-14-2022 End: 11-14-2022 Patient encounter procedure DO Bhumika Stacy Work Phone: [facility] [place] Work Phone: Start: 10-30-2022 ambulatory Bhumika Stacy DO Facility:[facility] Start: 10-27-2022 End: 10-28-2022 Emergency department patient visit CHARANJIT HU [facility] Start: 10-27-2022 End: 10-27-2022 Emergency department patient visit Charanjit Hu MD Work Phone: [facility] ED Comment on above: Other chronic pain ( Primary Dx); Osteoarthritis of spine, unspecified spinal osteoarthritis complication status, unspecified spinal region Start: 10-13-2022 End: 10-17-2022 Evaluation and management of inpatient NAMRATA KARLI Facility:[facility] Start: 10-13-2022 End: 10-17-2022 Evaluation and management of inpatient Flash Farmer MD Work Phone: [id number] Comment on above: Extremity numbness Start: 10-13-2022 End: 10-13-2022 Emergency department patient visit KOKO J ROBIN [facility] Start: 10-13-2022 End: 10-13-2022 [facility] Start: 10-06-2022 End: 10-07-2022 [facility] Start: 10-03-2022 End: 10-03-2022 Subsequent hospital visit by physician Bhumika Stacy DO Work Phone: [facility] Start: 10-03-2022 End: 10-04-2022 ambulatory [employer] [facility] [employer] Other Start: 10-03-2022 Postop follow up vis it related to original px Moises Garcia [facility] Start: 10-01-2022 End: 10-02-2022 ambulatory MARY ANN ARELI [facility] Start: 10-01-2022 End: 10-01-2022 Subsequent hospital visit by physician Bhumika Stacy DO Work Phone: [facility] Start: 09-29-2022 End: 09-30-2022 [facility]ulatory [facility] Start: 09-17-2022 End: 09-26-2022 Evaluation and management of inpatient [place] Facility:[facility] Start: 09-17-2022 End: 09-26-2022 Evaluation and management of inpatient DO Bhumika Stacy Work Phone: [facility] Work Phone: Start: 09-15-2022 End: 09-15-2022 ambulatory Bhumika Stacy Other [employer] Other Start: 09-15-2022 Telephone encounter Bhumika LACKEY [facility] Start: 09-12-[address] Bhumika Stacy Facility:[facility] Start: 09-11-[address] Bhumika Stacy Facility:[facility] Start: 09-10-2022 End: 09-17-2022 Evaluation and management of inpatient Arnaud Max Facility:[facility] Start: 09-10-2022 End: 09-17-2022 Evaluation and management of inpatient DO Bhumika Stacy Work Phone: [facility] Work Phone: Start: 09-10-2022 End: 09-10-2022 ambulatory Bhumika Stacy Other [employer] Other Start: 09-10-2022 Telephone encounter [facility] Start: 09-09-2022 End: 09-09-2022 ambulatory Bhumika Stacy Other [employer] Other Start: 09-09-2022 Telephone encounter B[facility]ika [facility] Start: 09-06-2022 End: 09-13-2022 ambulatory UNKNOWN PROVIDER Facility:[facility] Start: 09-05-2022 End: 09-05-2022 ambulatory [facility] T[facility], Treat and Transport Start: 09-05-2022 End: 09-05-2022 [facility] Comment on above: Arrived Start: 08-26-2022 End: 08-26-2022 ambulatory Bhumika Stacy Other [employer] Other Start: 08-26-2022 Office outpatient vi sit 25 minutes Bhumika Ball [facility] Start: 08-25-2022 End: 08-25-2022 ambulatory Bhumika Godfrey Other [employer] Other Start: 08-25-2022 Telephone encounter Bhumika Ball [facility] Start: 08-22-2022 End: 08-22-2022 ambulatory Bhumika Stacy Other [employer] Other Start: 08-22-2022 Telephone encounter Bhumika Ball [facility] Start: 08-07-2022 End: 08-08-2022 ambulatory Boni Paris DO Facility: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 Start: 05-14-2022 End: 05-14-2022 ambulatory Bhumika Stacy Other [employer] Other Start: 05-14-2022 Telephone encounter Bhumika Ball [facility] Start: 05-13-2022 End: 05-13-2022 ambulatory Bhumika Godfrey Other [employer] Other Start: 05-13-2022 Telephone encounter Bhumika Ball [facility] Start: 05-10-2022 End: 05-11-[address] BHUMIKA STACY Facility: Start: 05-08-2022 End: 05-09-2022 ambulatory BHUMIKA STACY [facility] Start: 05-08-2022 End: 05-08-2022 Subsequent hospital visit by physician Bhumika Stacy DO Work Phone: [facility] Comment on above: 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); MSSA bacteremia Start: 05-01-2022 End: 05-01-2022 ambulatory Bhumika Stacy Other [employer] Other Start: 05-01-2022 Telephone encounter Bhumika LACKEY [facility] Start: 04-30-2022 End: 04-30-2022 ambulatory Bhumika Stacy Other [employer] Other Start: 04-30-2022 Office outpatient vi sit 25 minutes Bhumika Stacy [facility] Start: 03-12-2022 Refill Tom Welch MD Work Phone: [facility] Comment on above: Refill Start: 01-21-2022 Refill Tom Welch MD Work Phone: [facility] Comment on above: Refill Start: 01-17-2022 Adult health examination Moises Garcia Other [employer] Other Start: 11-10-2021 End: 11-12-2021 Evaluation and management of inpatient DR BHUMIKA STACY Facility:[facility] Start: 11-05-2021 End: 11-05-[address] BHUMIKA STACY Facility:[facility] Start: 10-11-2021 Refill Tom Welhc MD Work Phone: [facility] Comment on above: Refill Start: 09-30-2021 ambulatory Jhoan Zarate MD Facility:[facility] Start: 09-26-2021 Refill Tom Welch MD Work Phone: [facility] Comment on above: Refill Start: 09-20-2021 End: 09-20-2021 ambulatory UNKNOWN PROVIDER Facility:[facility] Start: 09-09-2021 End: 09-09-2021 Subsequent hospital visit by physician Bhumika Stacy DO Work Phone: [facility] Start: 09-02-2021 End: 09-02-2021 Subsequent hospital visit by physician Bhumika Stacy DO Work Phone: [facility] Start: 08-26-2021 End: 08-26-2021 Subsequent hospital visit by physician Bhumika Stacy DO Work Phone: [facility] Start: 08-14-2021 End: 08-21-2021 Evaluation and management of inpatient BHUMIKA STACY [facility] Start: 08-14-2021 End: 08-21-2021 Evaluation and management of inpatient Silviano Haro MD [facility] 2 Comment on above: Pyogenic arthritis o f right shoulder region, due to unspecified organism (HCC) (Primary Dx); Acute cystitis without hematuria; MSSA bacteremia; Staphylococcal arthritis of right shoulder (HCC) Start: 08-14-2021 End: 08-14-2021 Emergency department patient visit Dylan Mcdowell MD Work Phone: [facility] ED Comment on above: Pyogenic arthritis o f right shoulder region, due to unspecified organism (HCC) (Primary Dx); SIRS (systemic inflammatory response syndrome) (HCC); Septic shock (HCC) Start: 07-25-2021 Refill Tom Welch MD Work Phone: [facility] Comment on above: Refill Start: 07-20-2021 [...] Performed By: #### X M #### [facility] ([facility]) [address] [place] [address] Start: 10-14-2022 Blood typing serologic abo Vonnie [...] complete auto&auto difrntl wbc Mary Ann Johnson ACCOUNT STRATEGIST - MACHINE SILVER STRIPPER Work Phone: Start: 10-01-2022 Urnls dip stick/tabl et rgnt auto w/o microscopy Mary Annlili Johnson ACCOUNT STRATEGIST - MACHINE SILVER STRIPPER Work Phone: Start: 10-01-2022 Procalcitonin (pct) David lili Areli Johnson ACCOUNT STRATEGIST - MACHINE SILVER STRIPPER Work Phone: Start: 09-21-2022 X-ray of cervical spine DO Bhumika Ball Work Phone: Start: 09-15-2022 Decompression of cer vical spine DO Bhumika Ball Work Phone: Start: 09-15-2022 X-ray of cervical spine DO Bhumika Ball Work Phone: Start: 09-12-2022 Antibody screen [place] Comment on above: Result Comment: PERF ORMED BY: [facility] [address] [place] [address] PATHOLOGIST SHIFT MGR PETER RAYO M.D. Start: 09-11-2022 Plain chest [...] subq port age 4 yr/> Tita Hilariowilmer ACCOUNT STRATEGIST - MACHINE SILVER STRIPPER Work Phone: Start: 08-21-2021 Nursing procedure Bud bhavana Lucas Juan ACCOUNT STRATEGIST - MACHINE SILVER STRIPPER Work Phone: Start: 08-21-2021 Assay of magnesium Dyla n Rja DO Work Phone: Start: 08-21-2021 BASIC METABOLIC [...] bacterial quanttative colony count urine Tita Martinez ACCOUNT STRATEGIST - MACHINE SILVER STRIPPER Work Phone: Start: 08-16-2021 Drug screen quantita [...] routine ecg w/le ast 12 lds w/i&r Dlyan Mcdowell MD Work Phone: Start: 08-14-2021 Urinalysis microscopic only Dylan Mcdowell MD Work Phone: Start: 08-14-2021 Urnls dip stick/tabl et rgnt auto w/o microscopy Dylan Mcdowell MD Work Phone: Depression screening Moises Br aun Other Screening for malign ant neoplasm of breast Moises Garcia Other Plan of Treatment Date Care Activity Detail Author Start: 06-23-2025 Cholesterol [Mass/volume] in Serum or Plasma Cholesterol [facility] Start: 11-06-2022 End: 11-06-2022 Patient encounter procedure 11/06/2022 Office Visit Infectious Diseases Eulogio Manzo MD [address] [place] [address] [facility] Start: 10-21-2022 Influenza vaccination Flu vaccine (# 1) [facility] Start: 10-14-2022 End: 10-14-2022 ambulatory [facility] [facility] [facility] Start: 09-26-2022 [facility] Start: 09-21-2022 Arrangement of care procedure [facility] Start: 09-18-2022 Consultation [facility] Start: 09-17-2022 [facility] Start: 09-17-2022 Hospital admission [facility] Start: 09-17-2022 Referral to clinical credit collector [facility] Start: 09-17-2022 [facility] Start: 09-17-2022 [facility] Start: 09-15-2022 Hospital admission [facility] Start: 09-11-2022 Consultation [facility] Start: 09-10-2022 Consultation [facility] Start: 09-10-2022 Hospital admission [facility] Start: 09-10-2022 Fusion of Cervical Vertebral Joint with Nonautologous Tissue Substitute, Posterior Approach, Posterior Column, Percutaneous Approach Fusion of Cervical Vertebral Joint with Nonautologous Tissue Substitute, Posterior Approach, Posterior Column, Percutaneous Approach [facility] Start: 09-10-2022 Introduction of Recombinant Bone Morphogenetic Protein into Joints, Open Approach Introduction of Recombinant Bone Morphogenetic Protein into Joints, Open Approach [facility] Start: 09-10-2022 Reposition Cervical Vertebral Joint, External Approach Reposition Cervical Vertebral Joint, External Approach [facility] Start: 05-23-2022 End: 05-23-2022 Patient encounter procedure 05/23/2022 Office Visit Rheumatology Tom Welch MD [address] [place] [id number] [facility] Start: 05-07-2022 Annual Wellness Visi t (AWV) Annual Wellness Visit (AWV) [facility] Start: 02-12-2022 End: 02-12-2022 Patient encounter procedure 02/12/2022 Office Visit Rheumatology Tom Welch MD [address] [place] [address] [facility] Start: 12-21-2021 Influenza vaccination Influenza Vacc ine (#1) [facility] Start: 11-21-2021 Influenza vaccination Flu vacc ine (Season Ended) [facility] Start: 10-21-2021 [facility] Start: 10-10-2021 End: 10-10-2021 Patient encounter procedure 10/10/2021 Office Visit Infectious Diseases Eulogio Manzo MD [address] [place] [address] [facility] Start: 09-20-2021 Welcome to Medicare Visit (G0402) Welcome to Medicare Visit (G0402) [facility] Start: 09-03-2021 End: 09-03-2021 Patient encounter procedure 09/03/2021 Office Visit Infectious Diseases Eulogio Manzo MD [address] [place] [address] [facility] Start: 07-25-2019 Pneumococcal 65+ yea rs Vaccine (1 - PCV) Pneumococcal 65+ years Vaccine (1 - PCV) [facility] Start: 07-25-2019 Screening for osteoporosis Bone Densitometry [facility] Start: 2009 Screening for osteoporosis DEXA (modify frequency per FRAX score) [facility] Start: 2004 Measurement of occul t blood in single stool specimen FIT [facility] Start: 2004 Screening for malign ant neoplasm of breast [facility] Start: 2004 Screening for malign ant neoplasm of colon CRC Screening [facility] Start: 2004 Shingles vaccine (1 of 2) Shingles vaccine (1 of 2) [facility] Start: 07-25-1999 Cholesterol [Mass/volume] in Serum or Plasma Cholesterol [facility] Start: 07-25-1999 Screening for malign ant neoplasm of colon [facility] Start: 1994 Lipid panel Lipids [facility] [employer] Start: 1994 Screening for malign ant neoplasm of breast Mammography [facility] Start: 1989 Diabetes screen Diabetes screen [facility] Start: 1973 DTaP/Tdap/Td vaccine (1 - Tdap) DTaP/Tdap/Td vaccine (1 - Tdap) [facility] Start: 1973 Shingles (RZV) Vacci ne (1 of 2) Shingles (RZV) Vaccine (1 of 2) [facility] Start: 1972 Hepatitis C screening Hepatitis C sc reen [facility] Start: 1972 Tetanus + diphtheria + acellular pertussis vaccine (product) Tdap Booster [facility] Start: 1966 COVID-19 Vaccine (1) COVID-19 Vaccin e (1) [facility] Start: 1966 Depression Screen Depression Screen [facility] [id number] [facility] Start: 1960 Pneumococcal vaccination Pneumococcal Vaccine(s) (65+ yrs) (1 - PCV) [facility] Start: 07-25-1959 COVID-19 Vaccine (#1) COVID-19 Vacci ne (#1) [facility] Start: 07-25-1959 COVID-19 Vaccine (1) COVID-19 Vaccin e (1) [facility] Start: 01-24-1955 COVID-19 Vaccine (#1) COVID-19 Vacci ne (#1) [facility] Start: 1954 Annual Wellness Visi t (AWV) Annual Wellness Visit (AWV) [facility] Start: 1954 Screening for malign ant neoplasm of colon Colonoscopy [facility] End: 10-13-2022 Bacteria identified in Blood by Culture [facility] Comment on above: One Time for 1 Occur rences starting 10/13/2022 until 10/13/2022 Basic Metabolic Pane l w/ Reflex to MG Basic Metabolic Panel w/ Reflex to MG Lab Routine Daily until discontinued starting 08/15/2021, 7 completed [facility] Phone: Comment on above: Daily until disconti nued starting 08/15/2021, 7 completed C-reactive protein C-Reactive Pr otein Lab Add-On Q48H until discontinued starting 08/18/2021, 2 completed [facility] Phone: Comment on above: Q48H until discontin ued starting 08/18/2021, 2 completed CBC W Auto Different ial panel - Blood CBC with Auto Differential Lab Routine Daily until discontinued starting 08/15/2021, 7 completed [facility] Phone: Comment on above: Daily until disconti nued starting 08/15/2021, 7 completed CTA CHEST ABDOMEN PELVIS W CONTRAST CTA CHEST ABDOMEN PELVIS W CONTRAST Imaging STAT 08/14/2021 10:22 AM EDT [facility] Phone: Culture, Anaerobic a nd Aerobic Culture, Anaerobic and Aerobic Microbiology Routine 08/17/2021 11:17 AM EDT [facility] Phone: End: 08-14-2021 Culture, Blood 1 [facility] Phone: Comment on above: One Time for 1 Occur rences starting 08/14/2021 until 08/14/2021 End: 10-01-2022 Culture, Blood 1 [facility] Comment on above: Once for 1 Occurrenc es starting 10/01/2022 until 10/01/2022 Culture, Fungus Culture, Fungus Microbiology Routine Pyogenic arthritis of right shoulder region, due to unspecified organism (HCC) 08/16/2021 9:03 PM EDT [facility] Work Phone: End: 10-01-2022 Culture, Urine [facility] Work Phone: Comment on above: Once for 1 Occurrenc es starting 10/01/2022 until 10/01/2022 Oxygen therapy [Mini ww [facility] Data Set] Initiate Oxygen Therapy Protocol Respiratory Care Routine As Needed until discontinued starting 08/14/2021 [facility] Work Phone: Comment on above: As Needed until disc ontinued starting 08/14/2021 Patient referral [facility] Work Phone: Platelets [#/volume] in Blood PLATELET COUNT Lab Routine Every 3 days in the AM Lab until discontinued starting 10/15/2022 [facility] Comment on above: Every 3 days in the AM Lab until discontinued starting 10/15/2022 End: 08-14-2021 PREVIOUS SPECIMEN [facility] Comment on above: Once for 1 Occurrenc es starting 08/14/2021 until 08/14/2021 End: 10-13-2022 SEDIMENTATION RATE, AUTOMATED SEDIMENTATION RATE, AUTOMATED Lab Urgent One Time for 1 Occurrences starting 10/13/2022 until 10/13/2022 [facility] Work Phone: Comment on above: One Time for 1 Occur rences starting 10/13/2022 until 10/13/2022 Standard ECG ECG ECG STAT Needed until discontinued starting 10/14/2022 [facility] Comment on above: Needed until disc ontinued starting 10/14/2022 Immunizations Immunization Date Immunization Notes Care Provider Jorge guzman 10-17-2021 Prevnar 20 Moises Garcia Other [employer] Other pneumococcal Conjuga te, unspecified formulation; Translations: [Need for prophylactic vaccination against Streptococcus pneumoniae (pneumococcus)] Moises Garcia Other [employer] Other Payers Date Payer Category Payer Unknown [id number] 2022 Self-pay 2021 Medicare [id number] 2021 Medicaid [id number] 1. [id number] 2020 Unknown [id number] 2020 Unknown OOC 2020 Unknown 1 1959 Medicare [id number] 1959 Self-pay [id number] 1954 Unknown [id number] 2.16. [id number] 1954 Unknown [id number] 2.16. [id number] 1954 Unknown [id number] 2.16.84 0.1.463609.3.579.2.593 1954 Unknown [id number] 2.16.84 0.1.605203.3.579.2.593 1954 Unknown [id number] 2.16.84 0.1.859917.3.579.2.593 1954 Unknown [id number] 2.16.84 0.1.163335.3.579.2.593 1954 Unknown [id number] 2.16.84 0.1.779024.3.579.2.593 1954 Unknown [id number] 2.16.84 0.1.426896.3.579.2.593 1954 Unknown [id number] 2.16.84 0.1.849844.3.579.2.593 1954 Unknown [id number] 2.16.84 0.1.881473.3.579.2.593 1954 Unknown [id number] 2.16. 840.1.381849.3.579.2.732 1954 Unknown [id number] 2.16. 840.1.445959.3.579.2.732 1954 Unknown [id number] 2.16. 840.1.178692.3.579.2.356 1954 Unknown [id number] 2.16. 840.1.166457.3.579.2.196 1955 Unknown [id number] 2.16. [id number] 1955 Unknown [id number] 2.16. 840.1.421511.3.579.2.196 1955 Unknown [id number] 2.16. 840.1.606157.3.579.2.196 1955 Unknown [id number] 2.16. 840.1.332935.3.579.2.594 1955 Unknown [id number] 2.16.8 40.1.395312.3.579.2.173 1955 Unknown [id number] 2.16.8 40.1.716670.3.579.2.173 1955 Unknown [id number] 2.16.8 40.1.888409.3.579.2.173 1955 Unknown [id number] 2.16.8 40.1.521736.3.579.2.173 1955 Unknown [id number] 2.16.8 40.1.893009.3.579.2.173 1955 Unknown [id number] 2.16.8 40.1.985035.3.579.2.173 1955 Unknown [id number] 2.16.8 40.1.747086.3.579.2.173 1955 Unknown [id number] 2.16.8 40.1.253191.3.579.2.173 1955 Unknown [id number] 2.16.8 40.1.972085.3.579.2.173 1955 Unknown [id number] 2.16.8 40.1.579432.3.579.2.173 Unknown [id number] 2.16.8 40.1.849499.3.579.2.531 Unknown [id number] 2.16.8 40.1.504440.3.579.2.531 Unknown [id number] 2.16.8 40.1.223038.3.579.2.531 Social History Date Type Detail Facility Tobacco smoking stat [facility] Tobacco smoking consumption unknown [facility] Start: 1955 Sex Assigned At Female [facility] Start: 1955 Sex Assigned At Not on file [facility] Phone: Start: 08-04-2021 End: 10-13-2022 Exposure to SARS-CoV-2 (event) Not sure [facility] Phone: Start: 09-03-2021 End: 09-18-2022 Tobacco smoking status MEIS Ex-smoker [facility] End: 09-03-2013 History of tobacco use Current smoker [facility] Phone: Start: 09-03-2021 End: 02-06-2022 Cigarettes smoked current (pack per day) - Reported 1 [facility] Phone: Start: 09-03-2021 End: 02-06-2022 Tobacco use and exposure Smokeless tobacco non-user [facility] Phone: End: 09-03-2013 History of tobacco use Cigarette Smoker [facility] Phone: Start: 10-13-2022 Sex Assigned At [facility] [employer] [facility] Other Start: 09-25-2020 Gender identity Identifies as female gender (finding) [facility] Start: 10-13-2022 Alcohol intake Ex-drinker (finding) [facility] Medical Equipment Procedure Code Equipment Code Equipment Origin al Text Equipment Identifier Dates Decompression, spine, cervical, posterior approach CANCELLOUS 7.5 CRUSHED FDA Start: 09-15-2022 Decompression, spine, cervical, posterior approach Spinal fusion graft kit [id number] FDA Start: 09-15-2022 Decompression, spine, cervical, posterior approach Intervertebral-body internal spinal fixation system [id number] FDA Start: 09-15-2022 Decompression, spine, cervical, posterior approach Internal spinal fixation system cable, sterile [id number] FDA Start: 09-15-2022 Decompression, spine, cervical, posterior approach CANCELLOUS 7.5 CRUSHED FDA Start: 09-15-2022 Goals Date Patient Goal Desired Activity /State Functional Status Date Assessment Result Facility 09-26-2022 Functional status Patient is Pro gressing Toward Baseline [facility] Work Phone: 09-17-2022 Functional status Patient at Baseline [facility] Work Phone: 09-10-2022 Functional status Patient Not at Baseline [facility] Work Phone: Mental Status Date Assessment Result Facility 09-26-2022 Cognitive function Cognitive Sta tus Patient at Baseline [facility] Work Phone: 09-17-2022 Cognitive function Cognitive Sta tus Patient at Baseline [facility] Work Phone: 09-10-2022 Cognitive function Cognitive Sta s Patient at Baseline [facility] Work Phone: Clinical Notes 07-14-2021 to 03-12-2023 [...] referred to Neurology, who had referred to [facility] Neurosurgery Feb, Paresthesias (ICD-10 - R20.2) Secondary to cervical rx? 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 Slow wean once Rheum has initiated therapy [facility] Other [id number] Evaluation note* Encounter Date Diagnosis Assessment Notes [...] wean steroids, which increase risk of infection [facility] Other 11-08-2023 Evaluation note* Encounter Date Diagnosis Assessment Notes Treatment Notes Treatment Clinical Notes Jan, Lumbar spondylosis (ICD-10 - M47.816) [facility] Other 10-12-2023 Evaluation note* Encounter Date Diagnosis [...] in remission (ICD-10 - F17.211) Maintain abstinence [facility] Other 10-10-2023 Evaluation note* Encounter Date Diagnosis [...] M19.011) Dec, Physical deconditioning (ICD-10 - R53.81) [facility] Other 08-07-2023 Hospital Discharge instructions* Discharge Instructions* [...] sent through Care Everywhere. * Chronic Pain (Mexican) [facility] Hospital course Narrative* Namrata Powell DO - 10/17/2022 11:27 AM EDT Hospital Medicine Discharge Summary Patient: Miriam German DOB: 1955, Date of face to face patient encounter: 10/17/2022 Admission Details Admit Date 10/13/2022 Discharge Date 10/17/2022 Inpatient Days 3 Summary of Hospitalization Dear Doctors, I recently had the opportunity to care for Miriam German during her recent hospital stay at [facility]. As you may know, Miriam German is [...] Skilled therapy is anticipated upon discharge to Shelter Facility There is no height or weight on file to calculate BMI. Upon discharge the patient's code was [id number] Please see the remainder of this document for relevant data from this admission as well as the patient's discharge instructions and follow-up appointments. An electronic copy of the patient's recordscan be obtained via [facility] at [email or web address] It has been my pleasure participating in [...] erythema Skin: No jaundice or rash Neuro: cable television access coordinator 3-7, 9-11 intact and equal. Strength grossly [...] future appointments. Bhumika Stacy DO [address] [facility] [address] Follow up Please call to schedule an appointment with your, PCP within 7-10 days. Shelter Facility [place] [address] [place] [address] Fax: [phone] Follow up [facility] [address] [address] Follow up - Please have [...] known as: ULTRAM documented in [facility]23 Miscellaneous Notes* Plan of Care - [...] be discharge to home. [facility] Plan of care note* Plan of [...] reluctance/inability to perform verbalization of pain descriptors [facility] History of Present illness Narrative* Ranjana [...] Psych: Ox3, appropriate affect and cognition Neuro: cable television access coordinator 3-7, 9-11 intact and equal. decreased motor [...] OT clinical judgment, discharge destination recommendation is: Shelter Facility Barriers to discharge home: Patient needs [...] and Edema: Mobility Assessment/Intervention: Scooting Bridging Mobility Yolo Level: Scooting/Bridging: maximum assist (25% patient effort) Physical Assist: Scooting/Bridgin person assist Bed Features/Set-up: Scooting/Bridging: Other, see comments (pt up in chair upon arrival, assist for optimal positioning in chair) Skilled Rationale: Positioning Skilled Intervention/Details: Scooting/Bridging: facilitated optimal positioning in chair utilizingchair features Transfer Assessment/Intervention: Functional Mobility: Outcome Score(s): CURRENT [facility] Daily Activity Inpatient Short Form Putting on/Taking Off Lower Body Clothin - Total Assistance Bathin - Total Assistance Toiletin - Total Assistance Putting on/Taking Off Upper Body Clothin - Total Assistance Groomin - A Lot of Assistance Eatin - A Lot of Assistance CURRENT [facility] Activity Raw Score: 8 CURRENT [facility] Activity Functional Limitation/Modifier: 85.69% Currently Impaired [...] abilityto safely complete ADLs. 10/16/2022 1412 by LAVARADO Olivares Outcome: Ongoing 10/16/2022 140 by ALVARADO [...] Guerrero OTR/L License # [id number] Pager: [phone] Upon discontinuation of Acute Care Occupational Therapy Services or patient discharge from the hospital this note represents the current Occupational Therapy Discharge Summary. * Cydney Wilder - 10/16/2022 9:38 AM EDT 10/16/22 0937 Transport Request Mode of Transfer BLS Name of Discharge Transport Company [place] (trip #[id number]) Discharge Transport ETA 10/17 at 10a Scheduled per CM. Cancelled [facility] on 10/20. Cydney Hicks Case Management Plastic Eye Technician * RADHA Ayala - 10/15/2022 5:37 PM EDT Placement Plan Expected Discharge Date: 10/20/22 Referred Level of Care: SNF Barriers: Transport Current Referrals and Status 1. [facility] advised by [facility] to schedule ambulance transport to SNF. SW scheduled the earliest available trip for 1000 on Thursday, 10/20 via [employer]. SW updated CCM and bedside RN. will contact additional ambulance providers in an attempt to find an earlier time. RON Villar, [employer] Medical Social Work * Leyla Womack RN - 10/15/2022 4:07 PM EDT Discharge Planning Patient Assessment Admission Assessment Patient Assessment Completed: Focused Anticipated discharge disposition: Shelter Facility Reason for Admission: Back pain, deconditioning Is the patient able to participate in the assessment?: Yes Information source: Patient Information Source Name/Contact: Miriam German- [phone] Demographics Verified and Updated: Yes Has the [...] Yes Name and Contact information: Branden Lucero- [phone] Would you like to add additional adult children?: Yes Name and Contact information: Geremias Azeem- [phone] Reviewed and Updated in Demographics? : Yes Outpatient Providers Does patient have a primary care physician? : Yes When was the patient's last PCP visit?: > 30 days Does the patient follow any specialists?: Yes Reviewed and updated Care Team?: Yes Patient Care Team: Bhumika Stacy, DO as PCP - General (Internal Medicine) Environment/Caregivers Is the patient from a facility or prison?: Yes Facility Level of Care: Skilled Name [...] the patient on Anticoagulation? : No [id number] [place] [address] - [address] [place] [address] AT [place] [place] [address] Coping/Stress Concerns about patient s coping and stress?: No Initial Discharge Planning Anticipated discharge disposition: Shelter Facility Transportation Available for Discharge: Ambulance Anticipated DME: none Patient Assessment Completed: Focused Risk of Readmission: 4.8 Category Reference: High:16-100 Mod-High:10-16 Mod-Low: 5-10 Low: 0-5 Expected Discharge Date: Readmission Summary and Discharge Planning Narrative Anticipate this patient will dc to SNF. requested referral to [facility]. Referral sent. No other plans for surgical intervention . Case Management Plan 1.Contact information shared and role of clinical case management social worker [facility] 2.PCP/Specialist/pharmacy information updated 3. Patient demographic/address/emergency contact information verified 4.manager product marketing will continue to follow with medical team to coordinate discharge planning and arrange necessary follow up. 5. No immediate needs or concerns to be addressed at this time. Leyla SALDANA RN Clinical Manager Marketing Communication [phone] Available on secure chat. * Aren Rico [...] Psych: Ox3, appropriate affect and cognition Neuro: cable television access coordinator 3-7, 9-11 intact and equal. decreased motor strength in upper and lower ext Data Review * Julia Guerrero, OT - 10/15/2022 7:26 AM EDT Acute Occupational Therapy Evaluation Prior to Admission AM-PAC Score: PRIOR LEVEL AM-PAC Activity Raw Score: 24 Current AM-PAC score(s): CURRENT AM-PAC Activity Raw Score: 7 Based on the above AM-PAC score(s) and OT clinical judgment, discharge destination recommendation is: Shelter Facility Barriers to discharge home: Patient needs [...] SNF. IADL History IADLs: independent Primary Language: Mexican Home Management Skills: independent Medication Management: independent [...] noted Mobility Assessment: Supine to Sit Mobility Yolo Level: Supine->Sit: maximum assist (25% patient effort) Physical Assist: Supine->Sit: 2 person assist Bed Features/Set-up: Supine->Sit: Head of bed elevated Skilled Rationale: Hand placement, Technique of activity, Cues for increased safety Skilled Intervention/Details: Supine->Sit: required facilitation for bilat LE and trunk elevation Sit to Supine Mobility Yolo Level: Sit->Supine: maximum assist (25% patient effort) Physical Assist: Sit->Supine: 2 person assist Bed Features/Set-up: Sit->Supine: Flat Skilled Rationale: Positioning, Verbal cues, Technique of activity Skilled Intervention/Details: Sit->Supine: required assist to guide trunk and elevate bilat LE to bed Outcome Score(s): [facility]RENT [facility] Daily Activity Inpatient Short Form Putting on/Taking Off Lower Body Clothin - Total Assistance Bathin - Total Assistance Toiletin - Total Assistance Putting on/Taking Off Upper Body Clothin - Total Assistance Groomin - Total Assistance Eatin - A Lot of Assistance [facility] Activity Raw Score: 7 CURRENT [facility] Activity Functional Limitation/Modifier: 92.44% Currently Impaired [...] Acute Physical Therapy Evaluation Prior to Admission [facility] score(s): PRIOR LEVEL AM-PAC Mobility Raw Score: 24 Current AM-PAC score(s): CURRENT AM-PAC Mobility Raw Score: 7 Based on the above AM-PAC score(s) and PT clinical judgment, patient is a good candidate for discharge to Shelter Facility return Barriers to discharge home: Patient [...] given Mobility Assessment: Supine to Sit Mobility [place]olo Level: Supine->Sit: maximum assist (25% patient effort) Physical Assist: Supine->Sit: 2 person assist Bed Features/Set-up: Supine->Sit: Head of bed elevated Skilled Rationale: Hand placement, Technique of activity, Cues for increased safety Skilled Intervention/Details: Supine->Sit: required facilitation for bilat LE and trunk elevation Sit to Supine Mobility Yolo Level: Sit->Supine: maximum assist (25% patient effort) [...] assist for eating yogurt Outcome Score(s): CURRENT [facility] Basic Mobility Inpatient Short Form Turning over in bed: 2 - A Lot of Assistance Sitting/standing from chair: 1 - Total Assistance Moving from lying on back to sittin - Total Assistance Moving to and from bed to chair: 1 - Total Assistance Walk in hospital room: 1 - Total Assistance Climbing 3-5 steps with a railin - Total Assistance [facility]RENT [facility] Mobility Raw Score: 7 CURRENT [facility] Mobility Functional Limitation/Modifier: 92.36% Currently Impaired [...] Therapy Discharge Summary. documented in this encounterU [facility] Plan of care note* Plan of [...] by discharge/transition of care. Outcome: Ongoing [facility]07-27-2023 Plan of care note* Plan of Care - Cassandra Neely RN - 10/16/2022 5:12 PM EDT Problem: Patient Care Overview Goal: Plan of Care Review Outcome: Ongoing [facility]07-27-2023 Plan of care note* Plan of [...] ROM/coordination/strength for ADL participation. Outcome: Ongoing [facility]07-27-2023 Plan of care note* Plan of [...] 140 by ALVARADO Olivares Outcome: Ongoing [facility]07-26-2023 Plan of care note* Plan of [...] Goal: Interdisciplinary Rounds/Family Conf Outcome: Ongoing [facility]07-26-2023 Plan of care note* Plan of [...] of care. Outcome: Met This Shift [facility]07-26-2023 Hospital Discharge instructions* Discharge Instructions* Kareen Barcenas RN - 10/15/2022 12:03 PM EDT Patient Experience Survey Reminder You may receive a survey in the mail within a few weeks regarding your hospitalization. This helps us to improve the care and services we provide at [facility]. We truly appreciate you taking the time to fill this out. We particularly welcome any specific comments you may have (good or bad!) regarding [facility]at [facility] so that we may use them to continue to strive towards excellence for our patients. * Attachments The following attachments cannot be sent through Care Everywhere. * Pain and Pain Control ([facility]) (Mexican) documented in this encounterOSU [facility]07[facility] Plan of care note* Plan of [...] Josesito Martin MD, Neurosurgery NS3 ([phone]) [facility] Work Phone: 1(522) 257-974907-26-2023 Plan of care note* Plan of Care [...] ROM/coordination/strength for ADL participation. Outcome: Ongoing [facility]07-26-2023 Plan of care note* Plan of [...] necessary for functional mobility. Outcome: Ongoing [facility]07-25-2023 Nurse procedure note* Significant Event - [...] this code status in the chart. [facility] Work Phone: 1(123) 705-838207-25-2023 History and physical note* Kelsie Wills MD - 10/14/2022 1:16 PM EDT Hospital Medicine Admission History & Physical Patient: Miriam German, 1955, [id number] Physician: Kelsie Wills MD, Attending Physician, Pager #[phone], med 2 service Date of face to [...] female that has been admitted to [facility]. This is a 67-year-old female [...] erythema: Skin: No jaundice or rash Neuro: cable television access coordinator 3-7, 9-11 intact and equal. Strength grossly [...] performed during the hospital encounter of 10/13/22 [facility] 7 - ED Result Value Ref [...] 0.40 (L) 1.16 - 3.51 K/uL Abs [place] Auto 0.09 (L) 0.22 - 0.87 K/uL [...] Negative Negative Ketones Urine Negative Negative Specific [place] Urine 1.010 1.001 - 1.035 Blood Urine [...] ECG none Signed, Kelsie Wills MD [facility]07-25-2023 History and physical note* Kelsie Wills MD - 10/14/2022 1:16 PM EDT Hospital Medicine Admission History & Physical Patient: Miriam German, 1955, [id number] Physician: Kelsie Wills MD, Attending Physician, Pager #[phone], med 2 service Date of face to [...] female that has been admitted to [facility]. This is a 67-year-old female [...] erythema: Skin: No jaundice or rash Neuro: cable television access coordinator 3-7, 9-11 intact and equal. Strength grossly [...] performed during the hospital encounter of 10/13/22 [facility] 7 - ED Result Value Ref [...] 0.40 (L) 1.16 - 3.51 K/uL Abs [place] Auto 0.09 (L) 0.22 - 0.87 K/uL [...] Negative Negative Ketones Urine Negative Negative Specific [place] Urine 1.010 1.001 - 1.035 Blood Urine [...] Kelsie Wills MD documented in this encounterU [facility]07[facility] Progress note* Certification - Kelsie Wills MD - 10/14/2022 1:10 PM EDT I certify that this patient requires inpatient services at this time. I anticipate the expected length of stay will include at least two midnights. Inpatient services are due to the following medicalconcerns extermity numbness . Plans for post hospitalization care will be discharge to home. [facility]07-25-2023 Emergency department Note* Loni Clark RN - 10/14/2022 10:06 AM EDT Pt screaming out to staff that she would like to leave. MD Dominguez aware. Pt was informed the team would like to admit her to provide PT and OT in hopes of restoring pts mobility. Pt angry and demanding to speak to a real doctor . [facility]07-25-2023 Emergency department Note* Lnoi Clark RN - 10/14/2022 10:06 AM EDT [...] extremity weakness in the setting of recent [id number] at an outside hospital. MRI did show [...] edema and fluid collection. MRI obtained from [facility] and reads reviewed. Concern for cauda [...] WITHOUT CONTRAST XR SPINE CERVICAL 4 VIEWS [facility] 7 - ED CBC, EDIF, PLATELET [...] making process. This note was dictated using [employer] D[employer]. Attempts at proofreading have been made, however errors may still occasionally occur. Monalisa Suarez MD Resident 10/13/22 5482 * Linnea Caro RN - 10/13/2022 9:40 PM EDT Bed: E041 Expected date: 10/13/22 Expected time: 12:00 AM Means of arrival: Comments: [facility] * Willow Lindquist RN - 10/13/2022 9:30 PM EDT Transfer Center Intake Note [phone] Triage Line [phone] Bed Placement REMINDER to TC development lead: please request facesheet, images, and discharge summary if inpatient. Pt Current Location/ Level of care: ED If Inpatient transfer, Date of admission to OSH: N/A Clinical reason for transfer: Need for neurosurg eval HPI: 1 mo ago C-2 ([facility]) surgery, spine fusion. Tingling, numbness bilat hands. Progressive numbness/tingling to LE. Follow up and parted ways per family. Nonambulatory since surgery. Unable to lift legs off bed or feed self. [facility] refused pt. [facility] spoke with collegue. States since pt does not want to follow with Dr. 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 Normal WBC IV drips: Decadron, Tylenol Respiratory Support device: NC settings: 2 L Other equipment: [employer] Interpreter Isolation None and ADA needs: bed bound Triaged to: TBD If PCU, please describe reason: Evelyn Quinonez RN documented in this encounterOSU [facility]07[facility] Physician Emergency department Note* Ameena Johnson [...] extremity weakness in the setting of recent [id number] at an outside hospital. MRI did show edema around the cord and did receive Decadron. [facility] for [facility] care. Patient evaluated by Neurosurgery who recommended admission to Medicine and conservative treatment at this time and no evidence of acute operative emergency at this time. The expected disposition is: Admit to med Ameena Johnson MD Resident 10/14/22 1216 [facility] Work Phone: [phone] Emergency department Note* Loni Clark RN - 10/14/2022 9:41 AM EDT Unable to obtain blood specimen at this time. PIV's do not draw back, straight sticks also unsuccessful. [facility]07-25-2023 Consult note* Vonnie Alfonso MD - [...] fx s/p C1-2 fusion w/ cerclage at [facility] in [place] on 09/15/22, which was unfortunately complicated by [...] fx s/p C1-2 fusion w/ cerclage at [facility] in [place] on 09/15/22, which was unfortunately complicated by [...] please page covering pager above ## [facility] Work Phone: 1(748) 760-707007-25-2023 Consult note* Vonnie Alfonso MD - 10/14/2022 [...] fx s/p C1-2 fusion w/ cerclage at [facility] in [place] on 09/15/22, which was unfortunately complicated by [...] fx s/p C1-2 fusion w/ cerclage at [facility] on 09/15/22, which was unfortunately complicated [...] pager above ## documented in [facility]Mer[facility]20[facility] Physician Emergency department Note* Flash Farmer [...] MD ED Attending Physician Flash Farmer MD 10/13/221 [facility] Work Phone: [phone] Emergency department Note* Willow Lindquist RN - 10/13/2022 9:54 PM EDT Pt arrives from OSH via medics for numbness/tingling, and weakness to all 4 extremities after having surgery to neck 4 weeks ago. Pt reports pain to extremities when touched. Pt alert and oriented and in NAD at this time. Dr. Suarez at bedside at this time. [facility]2023 Physician Emergency department Note* Monalisa Suarez [...] making process. This note was dictated using Your Office [employer]. Attempts at proofreading have been made, however errors may still occasionally occur. Monalisa Suarez MD Resident 10/13/223 [facility] Work Phone: [phone]) [phone] Emergency department Note* Lninea Caro RN - 10/13/2022 9:40 PM EDT Bed: E041 Expected date: 10/13/22 Expected time: 12:00 AM Means of arrival: Comments[facility]* Willow Lindquist RN - 10/13/2022 9:30 PM EDT Transfer Center Intake Note [phone] Triage Line [phone] Bed Placement REMINDER to TC development lead: please request facesheet, images, and discharge summary if inpatient. Pt Current Location/ Level of care: ED If Inpatient transfer, Date of admission to OSH: N/A Clinical reason for transfer: Need for neurosurg eval HPI: 1 mo ago C-2 ([facility]) surgery, spine fusion. Tingling, numbness bilat hands. Progressive numbness/tingling to LE. Follow up and parted ways per family. Nonambulatory since surgery. Unable to lift legs off bed or feed self. [facility] refused pt. Count Includes [facility] spoke with gris. States since pt does not want to follow with Dr. 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 Normal WBC IV drips: Decadron, Tylenol Respiratory Support device: NC settings: 2 L Other equipment: [employer] Interpreter Isolation None and ADA needs: bed bound Triaged to: TBD If PCU, please describe reason: Evelyn Quinonez, RN [facility]07-14-2023 Evaluation note* Encounter Date Diagnosis Assessment [...] was passed on to the nursing team. Ratify Other 07-06-2023 Progress note Author Tom Hill [facility] September 26, 2022 11:45am Note Date/Time September 25, 2022 12:45 pm [facility] [address] [place] [address] Physiatry(Rehab) Progress Note Signed Patient: Miriam German MR#: [id number] : 1955 Acct:[id number] Age/Sex: 67 / F Adm Date: 3 Loc: Room: [address] [place] [address] Type: ADM IN Attending Dr: Tom Hill [...] fracture and operative fixation. She presented to [facility] 2 weeks ago, 09/05 with increased falls and weakness. Eventual MRI imaging demonstrated C2 fracture, and subsequent flexionand extension films confirmed instability. She was transferred to [facility] 09/10 for NSGY evaluation/treatment. After medical [...] SNF admission. [facility] Chronic conditions as above are [...] mg 09/17/22 16:18 Bisacodyl 10 Mg Supp.Rect SD 09/17/23 16:17 DAILY PRN Constipation Diazepam 2 mg 09/17/22 19:49 09/23/22 05:53 Diazepam 2 Mg Tablet PO 03/16/23 19:48 2 mg Q6H PRN Administration Spasms Docusate Sodium 100 mg 09/17/22 16:18 Docusate 100 Mg Capsule PO 09/17/23 16:17 BID PRN Constipation Docusate Sodium 283 mg 09/17/22 16:18 Docusate Enema 283 Mg/5 Ml Enema SD 09/17/23 16:17 DAILY PRN Constipation Famotidine 20 mg 09/17/22 21:00 09/25/22 08:27 Famotidine 20 Mg Tablet PO 09/17/23 20:59 Not Given Q12HR [facility] Heparin Sodium (Porcine) 5,000 unit 09/18/22 10:00 [...] fracture status post fixation/fusion. * No significant cell changer the last few days. Continues to prefer bed level exercises, feels like therapy is pushing her too much , although is able to move a little more than previously. Still nonambulatory. * Will be discharged to SNF of choice tomorrow, [facility] to transport. Hospitalist to assist with [...] greater than 15 minutes for services, including aulw-wc-expq encounter with the patient, discussion of the case, plan of care, and exam; and gxnfzfe-nt-ouhu activities, such as reviewing pertinent client care consultant documentation, recent therapy notes, laboratory and radiology studies, and discussion of case with care team including physician, nursing, home health care case manager, and therapists. More than 50 [...] Allied health note review, nursing note review, client care consultant note review, discussion with nursing and case management, and more than 50% of my time was spent on counseling and coordination of care, time spent 23 minutes Patient was personally seen by me, Dr. Hill, on the day of encounter, I reviewed the history and the relevant portions of the chart, including current orders, allied health and client care consultant notes, labs/imaging and performed lea elements [...] signed by Tom Hill MD> 09/26/22 1145 [facility] Work Phone: 1(767) 430-408207-05-2023 Progress note Author Tom Hill [facility] September 24, 2022 10:18am Note Date/Time September 22, 2022 1:24p m [facility] [address] [place] [address] Physiatry(Rehab) Progress Note Signed Patient: Miriam German MR#: [id number] : 1955 Acct:[id number] Age/Sex: 67 / F Adm Date: 3 Loc: 5T Room: 1J5697-6 Type: ADM IN Attending Dr: Tom Hill [...] fracture and operative fixation. She presented to [facility] 2 weeks ago, 09/05 with increased falls and weakness. Eventual MRI imaging demonstrated C2 fracture, and subsequent flexionand extension films confirmed instability. She was transferred to [facility] 09/10 for NSGY evaluation/treatment. After medical [...] mg 09/17/22 16:18 Bisacodyl 10 Mg Supp.Rect SD 09/17/23 16:17 DAILY PRN Constipation Dexamethasone 4 [...] 16:18 Docusate Enema 283 Mg/5 Ml Enema SD 09/17/23 16:17 DAILY PRN Constipation Famotidine 20 [...] therapy. Nonambulatory. -Plan is to DC to [facility] facility [facility] to home. CM is making [...] greater than 15 minutes for services, including pumy-um-taqk encounter with the patient, discussion of the case, plan of care, and exam; and spivvvw-nx-ixhw activities, such as reviewing pertinent client care consultant documentation, recent therapy notes, laboratory and radiology studies, and discussion of case with care team including physician, nursing, home health care case manager, and therapists. More than 50 [...] Allied health note review, nursing note review, client care consultant note review, discussion with nursing and case management, and more than 50% of my time was spent on counseling and coordination of care, time spent 23 minutes Patient was personally seen by me, Dr. Hill, on the day of encounter, I reviewed the history and the relevant portions of the chart, including current orders, allied health and client care consultant notes, labs/imaging and performed lea elements of exam and I formulated the plan of care and facilitated the medical decision making. Documented By: Rubia George APRN 09/22/22 1 315 Signed By: <Electronically signed by GAETANO George> 09/22/22 1337 <Electronically signed by Tom Hill MD> 09/24/22 1014 [facility] Work Phone: 1(652) 602-899807-02-2023 Progress note Author Tom Hill [facility] September 21, 2022 10:55am Note Date/Time September 21, 2022 8:44a m [facility] [address] [place] [address] Physiatry(Rehab) Progress Note Signed Patient: Miriam German MR#: [id number] : 1955 Acct:[id number] Age/Sex: 67 / F Adm Date: 3 Loc: Room: [address] [place] [address] Type: ADM IN Attending Dr: Tom Hill MD Copies to: ~ Date of Service: 09/21/2022 Subjective Subjective Narrative: Ms. German is a 67 year old female with medical history of COVID-19 long- hauler, COPD, obstructive sleep apnea, rheumatoid arthritis on chronic prednisone admitted to the rehabilitation unit with cervical myelopathy after a C2 fracture and operative fixation. She presented to [facility] 2 weeks ago, 09/05 with increased falls and weakness. Eventual MRI imaging demonstrated C2 fracture, and subsequent flexionand extension films confirmed instability. She was transferred to [facility] 09/10 for NSGY evaluation/treatment. After medical [...] mg 09/17/22 16:18 Bisacodyl 10 Mg Supp.Rect SD 09/17/23 16:17 DAILY PRN Constipation Dexamethasone 2 [...] 16:18 Docusate Enema 283 Mg/5 Ml Enema SD 09/17/23 16:17 DAILY PRN Constipation Famotidine 20 [...] Allied health note review, nursing note review, client care consultant note review, discussion with nursing and case management, and more than 50% of my time was spent on counseling and coordination of care, time spent 25 minutes Patient was personally seen by me, Dr. Hill, on the day of encounter, I reviewed the history and the relevant portions of the chart, including current orders, allied health and client care consultant notes, labs/imaging and performed lea elements of exam and I formulated the plan of care and facilitated the medical decision making. Documented By: Tom Hill MD 09/21/22 0844 Signed By: <Electronically signed by Tom Hill MD> 09/21/22 1051 [facility] Work Phone: 1(256) [phone] Consult note Author Adam Estrella [facility] September 18, 2022 5:32pm Note Date/Time September 18, 2022 4:47 pm [facility] [address] [place] [address] Hospitalist Consult Note Signed Patient: Miriam German MR#: [id number] : 1955 Acct:[id number] Age/Sex: 67 / F Adm Date: 3 Loc: Room: [address] [place] [address] Type: ADM IN Attending Dr: Tom Hill [...] hypertension who presented as a transfer from [facility] on 09/10/2022, where she was hospitalized as [...] negative unless noted in the HPI below [facility] Attestation Statement: The following information was validated [...] mg 09/17/22 16:18 Bisacodyl 10 Mg Supp.Rect SD 09/17/23 16:17 DAILY PRN Constipation Dexamethasone 2 [...] 16:18 Docusate Enema 283 Mg/5 Ml Enema SD 09/17/23 16:17 DAILY PRN Constipation Famotidine 20 [...] % (Auto) 81.9, Lymph % (Auto) 9.2, [place] % (Auto) 8.3, Eos % (Auto) 0.0, Baso % (Auto) 0.6, Nucleat RBC Rel Count 0.1, Neut # (Auto) 9.9 H, Lymph # (Auto) 1.1, [place] # (Auto) 1.0 H, Eos # (Auto) [...] signed by Adam Estrella DO> 09/18/22 1732 [facility] Work Phone: 1([phone]) 405-761806-29-2023 Progress note Author Ailyn Hermosillo [facility] September 18, 2022 11:47am Note Date/Time September 18, 2022 10:4 3am [facility] [address] [place] [address] Pulmonology Progress Note Signed Patient: Miriam German MR#: [id number] : 1955 Acct:[id number] Age/Sex: 67 / F Adm Date: 3 Loc: Room: [address] [place] [address] Type: ADM IN Attending Dr: Tom Hill [...] <Electronically signed by DO OCTAVIO Garcia> 09/18/22 1114 [facility] Work Phone: [phone]) 338-574906-29-2023 History and physical note Author Tom Hill [facility] September 18, 2022 8:00am Note Date/Time September 18, 2022 7:12 am [facility] [address] [place] [address] Physiatry (Rehab) H&P Signed Patient: iMriam German MR#: [id number] : 1955 Acct:[id number] Age/Sex: 67 / F Adm Date: 3 Loc: Room: [address] [place] [address] Type: ADM IN Attending Dr: Tom Hill [...] fracture and operative fixation. She presented to [facility] 2 weeks ago, 09/05 with increased falls and weakness. Eventual MRI imaging demonstrated C2 fracture, and subsequent flexionand extension films confirmed instability. She was transferred to [facility] 09/10 for NSGY evaluation/treatment. After medical clearance, underwent C2 sublaminar wire with allograft fusion 09/15. Postoperative course without significant complications aside from pain/anxiety. Her respiratory status is stable. Home prednisone is on hold until completes decadron taper. Cleared for DVT prophylaxis. Anxious, tearful on admission, repots 10/10 pain. RN called requesting new orders. Chronic conditions as above are stable. [facility] Attestation Statement: The following information was validated [...] Mg Tablet) 2.5 mg PO DAILY [facility] Stop: 09/18/23 08:59 Bisacodyl (Bisacodyl 10 Mg Supp.Rect) 10 mg SD DAILY PRN PRN Reason: Constipation Stop: 09/17/23 16:17 Dexamethasone (Dexamethasone 1 Mg Tablet) 1 mg PO QID [facility]; Taper Stop: 09/26/22 21:59 Diazepam (Diazepam 2 Mg Tablet) 2 mg PO Q6H PRN PRN Reason: Spasms Stop: 03/16/23 19:48 Last Admin: 09/17/22 20:01 Dose: 2 mg Docusate Sodium (Docusate 100 Mg Capsule) 100 mg PO BID PRN PRN Reason: Constipation Stop: 09/17/23 16:17 Docusate Sodium (Docusate Enema 283 Mg/5 Ml Enema) 283 mg SD DAILY PRN PRN Reason: Constipation Stop: 09/17/23 16:17 Famotidine (Famotidine 20 Mg Tablet) 20 mg PO Q12HR [facility] Stop: 09/17/23 20:59 Last Admin: 09/17/22 20:01 Dose: 20 mg Heparin Sodium (Porcine) (Heparin 5,000 Unit/Ml Vial) 5,000 unit SUBCUT Q8HR [facility] Stop: 09/18/23 09:59 Lactulose (Lactulose 20 Gm/30 [...] Mg Tablet) 10 mg PO BID [facility] Stop: 09/27/23 08:59 Senna/Docusate Sodium (Sennosides/Docusate 8.6-50mg 1 Tab Tablet) 2 tab PO BID [facility] Stop: 09/17/23 20:59 Last Admin: 09/17/22 20:01 [...] % (Auto) 81.9 Lymph % (Auto) 9.2 [place] % (Auto) 8.3 Eos % (Auto) 0.0 Baso % (Auto) 0.6 Nucleat RBC Rel Count 0.1 Neut # (Auto) 9.9 H Lymph # (Auto) 1.1 [place] # (Auto) 1.0 H Eos # (Auto) [...] 10 days Expected Discharge Destination: Home Rehabilitation [facility]: Primary Diagnosis: Cervical myelopathy s/p C2 fracture [...] 24 hour daily monitoring and intervention from Washer Engineer as well as other consulting physicians including internal medicine as well as 24 hour daily skate maker nursing - for medical safe / optimal [...] Allied health note review, nursing note review, client care consultant note review, discussion with nursing and case management, and more than 50% of my time was spent on counseling and coordination of care, time spent 75 minutes Patient was personally seen by me, Dr. Hill, on the day of encounter, within 24hours of rehab admission, reviewed the history and the relevant portions of the chart, including current orders, allied health and client care consultant notes, labs/imaging and performed lea elements of exam and I formulated the plan of care and facilitated the medical decision making. Documented By: Tom Hill MD 09/18/22 0710 Signed By: <Electronically signed by Tom Hill MD> 09/18/22 0800 [facility] Work Phone: [phone]) [phone] Discharge summary Author Moises Garcia [facility] September 17, 2022 2:06pm Note Date/Time September 17, 2022 2:06 pm [facility] [address] [place] [address] Discharge Summary Signed Patient: Miriam German MR#: [id number] : 1955 Acct:[id number] Age/Sex: 67 / F Adm Date: 3 Loc: 4 Room: [address] [place] [address]: Arnaud Max MD Copies to: [...] Course Hospital course: Patient was transferred from [facility] as an inpatient on 09/10/2022. On09/15/2022 patient [...] Discharge Plan Discharge Plan Patient Disposition: [facility] Activity: No Activity Restriction Diet: Regular Additional [...] Rehab.) Documented By: Moises Garcia MD 09/17/22 8369 Signed By: <Electronically signed by MD Moises Garcia> 09/17/22 1406 [facility] Work Phone: [phone]) [phone] Progress note Author Moises Garcia [facility] September 17, 2022 2:05pm Note Date/Time September 17, 2022 2:05 pm [facility] [address] [place] [address] Neurosurgery Progress Note Signed Patient: Miriam German MR#: [id number] : 1955 Acct:[id number] Age/Sex: 67 / F Adm Date: 3 Loc: Room: [address] [place] [address] Type: ADM IN Attending Dr: Arnaud Max [...] <Electronically signed by MD Moises Garcia> 09/17/22 1400 [facility] Work Phone: [phone]) 462-904506-27-2023 Progress note Author Ailyn Hermosillo [facility] September 16, 2022 3:47pm Note Date/Time September 16, 2022 3:47 pm [facility] [address] [place] [address] Pulmonology Progress Note Signed Patient: Miriam German MR#: [id number] : 1955 Acct:[id number] Age/Sex: 67 / F Adm Date: 3 Loc: Room: [address] [place] [address] Type: ADM IN Attending Dr: Arnaud Max [...] signed by Ailyn Hermosillo MD> 09/16/22 1547 [facility] Work Phone: [phone] Progress note Author Arnaud Max [facility] September 16, 2022 1:31pm Note Date/Time September 16, 2022 1:31 pm [facility] [address] [place] [address] Hospitalist Progress Note Signed Patient: Miriam German MR#: [id number] : 1955 Acct:[id number] Age/Sex: 67 / F Adm Date: 3 Loc: Room: [address] [place] [address] Type: ADM IN Attending Dr: Arnaud Max [...] 08:59 DAILY PRN Magnesium < 1.6 Ipratropium [place] 0.5 mg 09/11/22 20:00 09/16/22 12:03 Ipratropium [place] 0.5 Mg/2.5 Ml Vial.Neb INHALATION 09/11/23 19:59 [...] <Electronically signed by Arnaud Max MD> 09/16/221 [facility] Work Phone: [phone]) [phone] Progress note Author Moises Garcia [facility] September 16, 2022 7:37am Note Date/Time September 16, 2022 7:37 am [facility] [address] [place] [address] Neurosurgery Progress Note Signed Patient: Miriam German MR#: M [id number] : 1955 Acct:[id number] Age/Sex: 67 / F Adm Date: 3 Loc: Room: [address] [place] [address] Type: ADM IN Attending Dr: Arnaud Max [...] % (Auto) 92.1, Lymph % (Auto) 4.4, [place] % (Auto) 3.3, Eos % (Auto) 0.0, Baso % (Auto) 0.2, Nucleat RBC Rel Count 0.0, Neut # (Auto) 14.2 H, Lymph #(Auto) 0.7 L, [place] # (Auto) 0.5, Eos # (Auto) 0.0, [...] signed by MD Moises Garcia> 09/16/22 0737 [facility] Work Phone: 1(129) [phone] Progress note Author Arnaud Max [facility] September 15, 2022 6:20pm Note Date/Time September 15, 2022 6:20 pm [facility] [address] [place] [address] Hospitalist Progress Note Signed Patient: Miriam German MR#: [id number] : 1955 Acct:[id number] Age/Sex: 67 / F Adm Date: 3 Loc: Room: [address] [place] [address] Type: ADM IN Attending Dr: Arnaud Max [...] 07:59 100 mls/hr Q8H CECI Administration Ipratropium [place] 0.5 mg 09/11/22 20:00 09/15/22 17:06 Ipratropium [place] 0.5 Mg/2.5 Ml Vial.Neb INHALATION 09/11/23 19:59 [...] <Electronically signed by Arnaud Max MD> 09/15/22 1822 [facility] Work Phone: [phone] Hospital Discharge instructions Additional Instructions REHAB TO [...] precautions Care [facility] be [facility] Work Phone: [phone]) [phone] Progress note Author Boni Lincoln [facility] September 14, 2022 5:21pm Note Date/Time September 14, 2022 5:21 pm [facility] [address] [place] [address] Hospitalist Progress Note Signed Patient: Miriam German MR#: [id number] : 1955 Acct:[id number] Age/Sex: 67 / F Adm Date: 3 Loc: Room: [address] [place] [address] Type: ADM IN Attending Dr: Boni Lincoln [...] No clubbing, cyanosis or edema NEUROLOGICAL: Decreased phytopathology teacher strength right upper extremity compared to the [...] 08:59 DAILY PRN Magnesium < 1.6 Ipratropium [place] 0.5 mg 09/11/22 20:00 09/14/22 15:49 Ipratropium [place] 0.5 Mg/2.5 Ml Vial.Neb INHALATION 09/11/23 19:59 [...] signed by Boni Lincoln DO> 09/14/22 1721 [facility] Work Phone: [phone]) 178-443406-24-2023 Progress note Author Boni Lincoln [facility] September 13, 2022 4:52pm Note Date/Time September 13, 2022 4:52 pm [facility] [address] [place] [address] Hospitalist Progress Note Signed Patient: Miriam German MR#: [id number] : 1955 Acct:[id number] Age/Sex: 67 / F Adm Date: 3 Loc: Room: [address] [place] [address] Type: ADM IN Attending Dr: Boni Lincoln [...] No clubbing, cyanosis or edema NEUROLOGICAL: Decreased phytopathology teacher strength right upper extremity compared to the [...] 08:59 DAILY PRN Magnesium < 1.6 Ipratropium [place] 0.5 mg 09/11/22 20:00 09/13/22 16:16 Ipratropium [place] 0.5 Mg/2.5 Ml Vial.Neb INHALATION 09/11/23 19:59 [...] <Electronically signed by Boni Lincoln DO> 09/13/22 6174 [facility] Work Phone: [phone]) 354-384206-23-2023 Progress note Author Boni Lincoln [facility] September 12, 2022 6:26pm Note Date/Time September 12, 2022 6:26 pm [facility] [address] [place], [place] [address] Hospitalist Progress Note Signed Patient: Miriam German MR#: [id number] : 1955 Acct:[id number] Age/Sex: 67 / F Adm Date: 3 Loc: 4 Room: [address] [place] [address] Type: ADM IN Attending Dr: Boni Lincoln [...] No clubbing, cyanosis or edema NEUROLOGICAL: Decreased phytopathology teacher strength right upper extremity compared to the [...] 08:59 DAILY PRN Magnesium < 1.6 Ipratropium [place] 0.5 mg 09/11/22 20:00 09/12/22 15:56 Ipratropium [place] 0.5 Mg/2.5 Ml Vial.Neb INHALATION 09/11/23 19:59 [...] <Electronically signed by Boni Lincoln DO> 09/12/22 182 [facility] Work Phone: 1([phone]) 983-911606-23-2023 Progress note Author Kira Azar [facility] September 12, 2022 4:07pm Note Date/Time September 12, 2022 4:07 pm [facility] [address] [place] [address] Anesthesia Progress Note Signed Patient: Miriam German MR#: [id number] : 1955 Acct:[id number] Age/Sex: 67 / F Adm Date: 3 Loc: Room: [address] [place] [address] Type: ADM IN Attending Dr: Boni Lincoln [...] is a chronic retainer. She presented to [facility] and was transferred over after having IV [...] <Electronically signed by Kira Azar, > 09/12/22 5187 [facility] Work Phone: 1([phone]) 251-919106-23-2023 Progress note Author Ailyn Hermosillo [facility] September 12, 2022 1:44pm Note Date/Time September 12, 2022 1:44 pm [facility] [address] [place] [address] Pulmonology Progress Note Signed Patient: Miriam German MR#: [id number] : 1955 Acct:[id number] Age/Sex: 67 / F Adm Date: 3 Loc: Room: [address] [place] [address] Type: ADM IN Attending Dr: Boni Lincoln [...] signed by Ailyn Hermosillo MD> 09/12/22 1344 [facility] Work Phone: [phone]) [phone] Consult note Author Moises Garcia [facility] September 12, 2022 11:27am Note Date/Time September 12, 2022 11:2 6am [facility] [address] [place] [address] Neurosurgery Consult Note Signed with John Patient: Miriam German MR#: [id number] : 1955 Acct:[id number] Age/Sex: 67 / F Adm Date: 3 Loc: Room: [id number] Type: ADM IN Attending Dr: Boni Lincoln [...] arthritis and hypertension. Patient was transferred from [facility] where she was hospitalized as an inpatient [...] PMFSH Vaccinated for COVID-19?: No Medical History (Reviewed 09/12/22 @ 10:41 by Aroldo Zepeda, [facility]) Ankle fracture, right COVID-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 Former [...] quadricep anterior tibial gastrocnemius are grossly 5/5 window trimmer are 4/5 bilaterally Cerebellar: No lead pipe [...] % (Auto) 86.5, Lymph % (Auto) 8.0, [place] % (Auto) 4.8, Eos % (Auto) 0.2, Baso % (Auto) 0.5, Nucleat RBC Rel Count 0.0, Neut # (Auto) 10.3 H, Lymph #(Auto) 1.0, [place] # (Auto) 0.6, Eos # (Auto) 0.0, [...] % (Auto) 86.2, Lymph % (Auto) 7.6, [place] % (Auto) 5.7, Eos % (Auto) 0.0, Baso % (Auto) 0.5, Nucleat RBC Rel Count 0.1, Neut # (Auto) 9.4 H, Lymph # (Auto) 0.8 L, [place] # (Auto) 0.6, Eos # (Auto) 0.0, [...] signed by MD Moises Garcia> 09/12/22 1126 [facility] Work Phone: 1(540) 665-865906-22-2023 Progress note Author Boni Lincoln [facility] September 11, 2022 6:18pm Note Date/Time September 11, 2022 6:18 pm [facility] [address] [place] [address] Hospitalist Progress Note Signed Patient: Miriam German MR#: [id number] : 1955 Acct:[id number] Age/Sex: 67 / F Adm Date: 3 Loc: Room: 8I1701-8 Type: ADM IN Attending Dr: Boni Lincoln DO Copies to: ~ Date of Service: 09/11/2022 Subjective Subjective Narrative: This patient is a 67-year-old female with a history of rheumatoid arthritis and hypertension. She presents as a transfer from [facility] where she was hospitalized as an inpatient [...] No clubbing, cyanosis or edema NEUROLOGICAL: Decreased phytopathology teacher strength right upper extremity compared to the [...] 08:59 DAILY PRN Magnesium < 1.6 Ipratropium [place] 0.5 mg 09/11/22 20:00 Ipratropium [place] 0.5 Mg/2.5 Ml Vial.Neb INHALATION 09/11/23 19:59 [...] <Electronically signed by Boni Lincoln DO> 09/11/22 1817 [facility] Work Phone: 1(301) 409-954706-22-2023 Consult note Author Srikanth Johnson [facility] September 11, 2022 5:10pm Note Date/Time September 11, 2022 5:04 pm [facility] [address] [place] [address] Cardiology Consult Note Signed Patient: Miriam German MR#: [id number] : 1955 Acct:[id number] Age/Sex: 67 / F Adm Date: 3 Loc: Room: [address] [place] [address] Type: ADM IN Attending Dr: Boni Lincoln [...] hypertension or diabetes, however blood pressures at [place] emergency room and during her hospitalization were [...] Lymph # (Auto) 0.8 L (1.00-4.8) x10E3/uL [place] # (Auto) 0.6 (0.0-0.8) x10E3/uL Eos # [...] <Electronically signed by Srikanth Johnson DO> 09/11/22 8209 [facility] Work Phone: 1(634) 736-772006-22-2023 Consult note Author Kira Gill [facility] September 11, 2022 4:15pm Note Date/Time September 11, 2022 4:01 pm [facility] [address] [place] [address] Pulmonology Consult Note Signed Patient: Miriam German MR#: [id number] : 1955 Acct:[id number] Age/Sex: 67 / F Adm Date: 3 Loc: Room: [address] [place] [address] Type: ADM IN Attending Dr: Boni Lincoln [...] been followed by Dr. Bhumika stacy in [place] and has had a longstanding history of supplemental oxygen use at 3 L/min continuously. Patient reportedly has a history of COPD though she denies ever having had pulmonary function test. She does admit to approximately an 41-robd-knvo smoking history and is chronically on oxygen [...] of September 05, 2022 presumably from the [facility] reveals no clear evidence of subpleural honeycomb [...] you Documented By: Kira Gill MD 3 [id number] Signed By: <Electronically signed by MD Kira Gill> 09/11/22 1615 [facility] Work Phone: 1(345) 768-859806-21-2023 History and physical note Author Boni Lincoln [facility] September 10, 2022 7:21pm Note Date/Time September 10, 2022 6:11 pm [facility] [address] [place] [address] Hospitalist H&P Signed Patient: Miriam German MR#: [id number] : 1955 Acct:[id number] Age/Sex: 67 / F Adm Date: 3 Loc: Room: [address] [place] [address] Type: ADM IN Attending Dr: Boni Lincoln DO Copies to: DO Boni Sullivan DO~ HPI DATE OF EXAMINATION: 09/10/22 CHIEF COMPLAINT: Odontoid fracture HISTORY OF PRESENT ILLNESS: This patient is a 67-year-old female with a history of rheumatoid arthritis and hypertension. She presents as a transfer from [facility] where she was hospitalized as an inpatient after presenting with generalized weakness and backpain on 09/05/2022. She had recently been diagnosed with pneumonia on a prior EDvisit 09/03/2022. She had been experiencing increasingly frequent falls and generalized weakness prompting her to come back to the ER. Reportedly wears 4 Lnasal cannula at baseline. The accompanying records provided by [place] are essentially worthless providing only repeated copies [...] No clubbing, cyanosis or edema NEUROLOGICAL: Decreased phytopathology teacher strength right upper extremity compared to the left, moves all 4 extremities spontaneously SKIN: Multiple areas of bruising/petechiae PSYCHIATRIC: Appropriate mood and affect Assessment and plan: 1. Unstable C2 odontoid fracture Unfortunately [place] did not send over any useful records including any cervical spine imaging, not CT nor MRI reports. When requesting records from [place] our nursing staff was met with significant [...] negative unless noted below or in HPI [facility] Medical History (Updated 09/10/22 @ 18:50 by [...] <Electronically signed by Boni Lincoln DO> 09/10/221920 [facility] Work Phone: 1(643) 547-976106-21-2023 Evaluation note* Encounter Date Diagnosis Assessment Notes Treatment Notes Treatment Clinical Notes Aug, Closed odontoid fracture with routine healing, subsequent encounter (ICD-10 - S12.100D) [facility] [employer] Other 06-17-2023 History of Present illness Narrative* BryanMumtaz lomasDO - 09/06/2022 7:02 PM EDT Images from the original note were not included. EMERGENCY TRIAGE, TREAT AND TRANSPORT (ET3) DOCUMENTATION OF TELEHEALTH VISIT Date / Time: 09/05/2022 / 5 Name: Miriam German : 1955 SSN: [id number] EMS Agency: [facility] [x] Verbal consent obtained [] [...] Mumtaz Jean Baptiste DO documented in this [id number] Evaluation note* Encounter Date Diagnosis Assessment Notes [...] - F17.211) Continue abstinence, yearly LDCT recommended. [employer] Other 06-02-2023 Evaluation note* Encounter Date Diagnosis Assessment Notes Treatment Notes Treatment Clinical Notes Aug, New daily persistent headache (ICD-10 - G44.52) [employer] Other 05-18-2023 NoteProcedure: Ultrasound-guided right glenohumeral joint [...] A subcentimeter dermatotomy was performed. A 5 Burmese Attila Technologiesesis catheter needle was advanced into the anterior [...] Is Signed, Electronically Signed in Other Vendor System)[facility]05-11-2023 NotePatient Education Materials Name: Miriam German Current Date: 07/31/2022 07:43:50 [place] : 1955 The following sheet(s) are the [...] DO__for continued care. Thank you for choosing [facility] for your care. IS IT A [...] immediate medical attention! Thank you for choosing [facility] Patient and Family Resources COVID vaccinations are offered at most retail pharmacies or your local health department. For more information, go to [email or web address]. If you received a COVID vaccine while at the hospital, you may need to schedule an appointment to receive your second dose. For the Pfizer vaccine: a second dose at least 21 days after the first dose. For the Moderna vaccine: second dose at least 28 days after the first dose. For the Mario and Mario vaccine: no second dose is required. [facility] Poison Help line: [facility] Crisis Hotline: National Suicide and Crisis Lifeline: [address] [place] Tobacco Quit Line: [facility] [address] [place], [place]: [phone] For the disposal of all unused and/or prescription medications (including opioid/narcotic medications), [facility] has two medication collection boxes: 1) at the [facility] Office and 2) at the [facility]05-10-2023 Evaluation note* Encounter Date Diagnosis Assessment [...] refer back to Rheum after shoulder surgery. [employer] Other 05-10-2023 Evaluation note* Encounter Date Diagnosis [...] to open ET and Flonase NS recommended. [employer] Other 02-09-2023 Evaluation note* Encounter Date Diagnosis Assessment Notes Treatment Notes Treatment Clinical Notes Apr, Primary hypertension (ICD-10 - I10) Apr, High risk medication use (ICD-10 - Z79.899) Apr, Fatigue, unspecified type (ICD-10 - R53.83) Apr, 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 (ICD-10 - M05.741) Apr, Vitamin D deficiency (ICD-10 - E55.9) [employer] Other 02-08-2023 Evaluation note* Encounter Date Diagnosis [...] Healthy diet, keep active, consistent sleep routine [employer] Other 12-21-2022 Telephone encounter Note* Telephone Encounter [...] records found for TST-PPD, intradermal (PPD) (CVX=96) [employer] Work Phone: 1(297) 506-320612-21-2022 Miscellaneous Notes* Telephone Encounter - Noreen Garcia [...] TST-PPD, intradermal (PPD) (CVX=96) documented in this [id number] Telephone encounter Note* Telephone Encounter - Jocelyn Rodarte - 10/13/2021 10:28 AM EDT Existing RX should have refills. [id number] Miscellaneous Notes* Telephone Encounter - Jocelyn Rodarte - 10/13/2021 10:28 AM EDT Existing RX should have refills. documented in this [id number] Telephone encounter Note* Telephone Encounter - Chris Love - 09/26/2021 4:05 PM EDT Sent pt mychart msg [id number] Miscellaneous Notes* Telephone Encounter - Chris Love - 09/26/2021 4:05 PM EDT Sent pt mychart msg * Telephone Encounter - Tom Welch MD - 09/26/2021 3:54 PM EDT Needs f/u visit documented in this [id number] Telephone encounter Note* Telephone Encounter - Tom Welch MD - 09/26/2021 3:54 PM EDT Needs f/u visit [id number] Hospital course Narrative* Sunni Mary RN - 08/21/2021 3:06 PM EDT Report called to Kitty at [facility]. No further questions or concerns at this time. Patient sent with belongings bag of cell phone and kayak maker. Awaiting transport scheduled for 3pm documented in this encounterBON [facility] [place] Phone: [phone]) 989-214106-01-2022 History of Present illness Narrative* Michelle Dunaway [...] loss Fluid Accumulation: Mild (to Moderate) Extremities,Generalized Substation Inspector Strength: Not Performed Nutrition Assessment: Pt seen/chart [...] Anthropometric Measures: Height: 5' 4 (162.6 cm) [place] Body Weight (IBW): 120 lbs (55 kg) [...] 1800 kcals/day Weight Used for Protein Requirements: [place] Protein (g/day): 80 gm pro/day Method Used for Fluid Requirements: Other - Boissevain Segme Fluid (ml/day): 2000 mL/day or per MD [...] current diet Michelle Dunaway RD, ANNA Contact: [phone] * Dilan Jerome MD - 08/21/2021 10:57 AM EDT Images from the original note were not included. [facility] Office: [phone] Anthony Cano DO, Leighton Johnson DO, Tom [...] CNP, Lili Palmer CNP, Ashia Fu, [facility] IN-PATIENT SERVICE [facility] Progress Note 08/21/2021 10:57 AM Name: Miriam German Acct: [id number] Room: IP Day: 7 Admit Date: 08/14/2021 [...] sent later today to rehab facility in [place] Brief History: Per my partner: Miriam German is a 66 y.o. female initially presented to [facility] ED for evaluationof acute onset lower [...] CRP. Orthopedic surgery evaluated the patient in [place]'s ER and recommended the patient be transferred [...] looked in months. Blood cultures drawn from [place] ED returned positive. Orthopedic surgery and general [...] Continuous Infusions: sodium chloride 25 mL (08/21/21 8477) sodium chloride PRN Meds: metoprolol, sodium chloride [...] No results for input(s): PROT, LABALBU, LABA1C, P4FRGWB, F8FEUCG, FT4, TSH, AST, ALT, LDH, GGT, ALKPHOS, LABGGT, BILITOT, BILIDIR, AMMONIA, AMYLASE, LIPASE, LACTATE, CHOL, HDL, LDLCHOLESTEROL, CHOLHDLRATIO, TRIG, VLDL, UTY82KJ, PHENYTOIN, PHENYF, URICACID, POCGLU in the last 72 hours. ABG:No results found for: POCPH, PHART, PH, POCPCO2, IJW1MKO, PCO2, POCPO2, PO2ART, PO2, POCHCO3, QTH5MHB, HCO3, NBEA, PBEA, BEART, BE, THGBART, THB, CRI6XDE, PMPY2IOM, T1HEPHSD, O2SAT, FIO2 Lab Results Component Value Date/Time [...] THORACIC SPINE WO CONTRAST Result Date: 08/15/2021 Dfdr-bz-cqzepbdp compression fracture of the T4 vertebral body, of undetermined age. Clinical correlation suggested. Hypoventilatory changes in the posterior aspects of the lungs. CT LUMBAR SPINE WO CONTRAST Result Date: 08/15/2021 Bilateral sacral wing insufficiency fractures. Degenerative changes as described above. CT HUMERUS RIGHT W CONTRAST Addendum Date: 08/15/2021 ADDENDUM: Critical results were called by Dr. Mik Cantu to Dr. Mcelryo on 08/15/2021 at 00:07. Result Date: 08/15/2021 [...] 08/15/2021 Unsuccessful fluoroscopic-guided lumbar puncture in the xbsk-fomr-lzmr decubitus position, as above. IR ARTHR/ASP/INJ MAJOR [...] that Long discussion with pt, delfin and case management social worker, > 45 min spent coordinating care, CLAIRE signed Dilan Jerome MD 08/21/2021 10:57 AM * Claire Red RN - 08/21/2021 6:56 AM EDT CAR WASH ATTENDANT notified of hypokalemia, new order noted. * Claire Red RN - 08/20/2021 8:40 PM EDT CAR WASH ATTENDANT notified of loose stools d/t ABX, new PRN order noted for Imodium. CAR WASH ATTENDANT also notified of pt stating she is no longer on prednisone, order d/c'd. * Eulogio Manzo MD - 08/20/2021 1:15 PM EDT [facility] - Progress Note Today's Date and Time: [...] pubic symphysis aspiration 08/17/21 Infection Control Recommendations [place] Precautions Antimicrobial Stewardship Recommendations Simplification of therapy [...] fall in June 2021, initially presented to [facility] ED on 08/14/21 with complaints of [...] and Vancomycin. The patient was transferred to [facility] for a higher level of care. Abnormal lab findings at [facility] included: Lactic: 2.8 Pro floyd: 3.47 Alk phos: 187 CRP: 258.6 WBC: 23.3 Abs neutr: 19.1 ESR: 84 Blood cultures from [place] on 08/14/21 came back positive for gram [...] will continue to follow Discharge planning to [place] [facility], X rays reviewed: 08/20/2021 BUN:11-->7 [...] RIGHT performed by Gerardo Munroe MD at [facility] OR CT ASP ABS HEMATOMA BULLA CYST 08/17/2021 CT ASP ABS HEMATOMA BULLA CYST 08/17/2021 Jonathan Osorio MD [facility] CT SCAN SHOULDER ARTHROSCOPY Right 08/16/2021 SHOULDER ARTHROSCOPY WITH I&D performed by Gerardo Munroe MD at [facility] OR Medications: [START ON 08/21/2021] [...] Friends and Family: Not on file Attends Hoahaoism Services: Not on file Active Member of [...] Right femoral venous catheter noted. Medical Decision Ycorrh-Nxvmczki-Uzrye: Result 2 of 2 This report contains more than one result. Contains abnormal data Culture, Blood 1 Order: [id number] Status: Final result Visible to patient: No (not released) Next appt: None Specimen Information: Blood 0 Result Notes Component 08/14/21 1205 Resulting Agency Specimen Description .BLOOD [facility] Special Requests RIGHT CVC 10ML [facility] Culture POSITIVE BLOOD CULTURE, RN NOTIFIED: [facility] Culture DIRECT GRAM STAIN FROM BOTTLE: GRAM POSITIVE COCCI IN CLUSTERS [facility] Culture STAPHYLOCOCCUS AUREUS This isolate is methicillin susceptible. Abnormal [facility] Culture (NOTE) Direct Gram Stain from bottle result called to and read back by JENNIFER RICHTER RN AT [facility] 3 [id number] 08/15/2021 [facility] [place] Susceptibility Staphylococcus aureus (3) [...] data were reviewed Discussed with nursing Staff, project planner Infection Control and Prevention measures reviewed All prior entries were reviewed Administer medications as ordered Prognosis: Fair Discharge planning reviewed Follow up as outpatient. Thank you for allowing us to participate in the care of this patient. Please call with questions. Tita Martinez, ACCOUNT STRATEGIST - MACHINE SILVER STRIPPER ATTESTATION: I have discussed the case, including [...] from the original note were not included. [facility] Office: [phone] Anthony Cano DO, Leighton Johnson DO, Tom [...] Orr MD, Dilan Jerome MD, Valerie Miller, MACHINE SILVER STRIPPER, Hina Granados, MACHINE SILVER STRIPPER, Juan Carlos Mosqueda,MACHINE SILVER STRIPPER, Amira Morgan, MACHINE SILVER STRIPPER, Barbara Feliciano, MACHINE SILVER STRIPPER, Rory Perlata, MACHINE SILVER STRIPPER, Barrington Rodriguez, PA-C, Ludy Good, DNP, Regina Delvalle, MACHINE SILVER STRIPPER, Liliya Gambino, MACHINE SILVER STRIPPER, Evie Tavares, MACHINE SILVER STRIPPER, Gabby Hanson, AIR QUALITY SPECIALIST, [place], DNP, Mildred Auguste, MACHINE SILVER STRIPPER, Lili Palmer, MACHINE SILVER STRIPPER, Ashia Fu, MACHINE SILVER STRIPPER [facility] IN-PATIENT SERVICE [facility] Progress Note 08/20/2021 12:52 PM Name: Miriam German Acct: [id number] Room: IP Day: 6 Admit Date: 08/14/2021 [...] sent later today to rehab facility in [place] Brief History: Per my partner: Miriam German is a 66 y.o. female initially presented to [facility] ED for evaluationof acute onset lower [...] CRP. Orthopedic surgery evaluated the patient in [place]'s ER and recommended the patient be transferred [...] looked in months. Blood cultures drawn from [place] ED returned positive. Orthopedic surgery and general [...] No results for input(s): PROT, LABALBU, LABA1C, A7XDHNW, U2AKPQF, FT4, TSH, AST, ALT, LDH, GGT, ALKPHOS, LABGGT, BILITOT, BILIDIR, AMMONIA, AMYLASE, LIPASE, LACTATE, CHOL, HDL, LDLCHOLESTEROL, CHOLHDLRATIO, TRIG, VLDL, DMP03QY, PHENYTOIN, PHENYF, URICACID, POCGLU in the last 72 hours. ABG:No results found for: POCPH, PHART, PH, POCPCO2, RAF6RLX, PCO2, POCPO2, PO2ART, PO2, POCHCO3, XSR8PTH, HCO3, NBEA, PBEA, BEART, BE, THGBART, THB, QNH5MMT, QPTT8JHZ, J2JKJMBS, O2SAT, FIO2 Lab Results Component Value Date/Time [...] THORACIC SPINE WO CONTRAST Result Date: 08/15/2021 Otki-fw-kejidoko compression fracture of the T4 vertebral body, [...] 08/15/2021 Unsuccessful fluoroscopic-guided lumbar puncture in the dxro-ujey-rghx decubitus position, as above. IR ARTHR/ASP/INJ MAJOR [...] open Long discussion with pt, sons and case management social worker, > 45 min spent coordinating care, CLAIRE signed Dilan Jerome MD 08/20/2021 12:52 PM * Ryan Neal OT - 08/19/2021 2:04 PM EDT Occupational Therapy Facility/Department: [facility] 2 Occupational Therapy Initial Assessment Name: Miriam [...] Devices ADL Assistive Devices: Long-handled Shoe Horn;Long-handled Sponge;Data Systems Manager;Sock- Aid Hard Patient Diagnosis(es): The primary encounter [...] Ambulation Assistance: Independent Transfer Assistance: Independent Active Heel Padder: No Patient's Heel Padder Info: neighbor, friend 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 Leisure & Hobbies: garden Additional [...] CMS 0-100% Score: 56.46 (08/19/211404) ADL Inpatient [facility] G-Code Modifier : CK (08/19/211404) Goals Short [...] Short Term Goal 6: Verbalize/incorporate 2 edema cash management coordinator to reduce edema in BUE and improvefunctional use of BUE Therapy Time Individual Concurrent Group Co-treatment Time In 1306 Time Out 1330 Minutes 24 Timed Code Treatment Minutes: 23 Minutes Ryan Neal OTR/L * Julianne Dickerson, PT - 08/19/2021 11:08 AM EDT Physical Therapy Facility/Department: [facility] 2 Physical Therapy Reassessment Name: Miriam German [...] to the ER as a transfer from [place] for concerns of septic arthritis. Patient presented to [place] ER earlier today with concerns for acute [...] well as abdomen and trunk. Workup at [place] was showed inflammatory changes in the right shoulder and around pubic symphysis that was concerning for septic arthritis. Ortho was consulted at [place] and the orthopedic surgeon did not feel patient was appropriate for bedside arthrocentesis and needed to have exam perfo rmed with xray guidance. Patient was transferred to [place] for Ortho eval here. Noted to have leukocytosis of 17.1. CRP elevated to 249.9. Sed rate 66. Blood cultures, lactate acid were drawn. Patient received one dose of Vancomycin and Zosyn at [place]. Received 30cc/kg bolus. Central line wasplaced for poor peripheral access. Urinalysis also positive for UTI. Patient's son is in the room and states they just saw her this past Thursday and she was ambulatorywith walker and was the best that she had looked in months. Per reports she was ambulatory when shefirst arrived at [place] earlier today. 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 Vision/Hearing Hearing: Within functional limits [...] A from elevated bed, rwalker; sit to spray painter helper murtaza stedy withmod A+2) Stand to sit: [...] Inpatient CMS G-Code Modifier : CM (08/17/21 [facility]) Goals Otolaryngology Rep Goals Time Frame for skilled nursing goals : 12 visits skilled nursing goal 1: sit to stand from lift chair with SBA+1 rn long term care goal 2: gait with rollator x 25' with SBA+1 rn long term care goal 3: improve R shoulder strength to [...] 10:39 AM EDT [facility] - Progress Note Today's Date and Time: [...] pubic symphysis aspiration 08/17/21 Infection Control Recommendations [place] Precautions Antimicrobial Stewardship Recommendations Simplification of therapy [...] fall in June 2021, initially presented to [facility] ED on 08/14/21 with complaints of [...] and Vancomycin. The patient was transferred to [facility] for a higher level of care. Abnormal lab findings at [facility] included: Lactic: 2.8 Pro floyd: 3.47 Alk phos: 187 CRP: 258.6 WBC: 23.3 Abs neutr: 19.1 ESR: 84 Blood cultures from [place] on 08/14/21 came back positive for gram [...] Friends and Family: Not on file Attends Hoahaoism Services: Not on file Active Member of [...] Right femoral venous catheter noted. Medical Decision Mhggja-Kheqmcrx-Kazfz: Result 2 of 2 This report contains more than one result. Contains abnormal data Culture, Blood 1 Order: [id number] Status: Final result Visible to patient: No (not released) Next appt: None Specimen Information: Blood 0 Result Notes Component 08/14/21 1205 Resulting Agency Specimen Description .BLOOD [facility] Special Requests RIGHT CVC 10ML [facility] Culture POSITIVE BLOOD CULTURE, RN NOTIFIED: [facility] [place] Culture DIRECT GRAM STAIN FROM BOTTLE: GRAM POSITIVE COCCI IN CLUSTERS [facility] [place] Culture STAPHYLOCOCCUS AUREUS This isolate is methicillin susceptible. Abnormal [facility] [place] Culture (NOTE) Direct Gram Stain from bottle result called to and read back by JENNIFER RICHTER RN AT [facility] 3 0119 08/15/2021 [facility] [place] Susceptibility Staphylococcus aureus (3) Antibiotic [...] data were reviewed Discussed with nursing Staff, project planner Infection Control and Prevention measures reviewed All prior entries were reviewed Administer medications as ordered Prognosis: Fair Discharge planning reviewed Follow up as outpatient. Thank you for allowing us to participate in the care of this patient. Please call with questions. Tita Martinez, ACCOUNT STRATEGIST - MACHINE SILVER STRIPPER ATTESTATION: I have discussed the case, including pertinent history and exam findings with the ACCOUNT STRATEGIST. I have evaluated the History, physical findings and pictures of the patient and the lea elements of the encounter have been performed by me. I have reviewed the laboratory data, other diagnostic studies and discussed them with the ACCOUNT STRATEGIST. I have updated the medical record where necessary. I agree with the assessment, plan and orders as documented by the ACCOUNT STRATEGIST. Eulogio Manzo MD. Pager: - Office: * Loretta Strauss MD - 08/19/2021 9:59 AM EDT Images from the original note were not included. [facility] Office: [phone] Anthony Cano DO, Leighton Johnson DO, Tom [...] TOSHIA FelicianoC, Ludy Good, DNP, Regina Delvalle, MACHINE SILVER STRIPPER, Liliya Gambino, MACHINE SILVER STRIPPER, Evie Tavares, MACHINE SILVER STRIPPER, Gabby Hanson, AIR QUALITY SPECIALIST, [place], MANOLO, Mildred Auguste, GINNY, Lili Palmer, GINNY, Ashia Fu, MACHINE SILVER STRIPPER [facility] IN-PATIENT SERVICE [facility] Progress Note 08/19/2021 9:59 AM Name: Miriam German Acct: [id number] Room: IP Day: 5 Admit Date: 08/14/2021 [...] needs to go to a SNF in [place]. She is also agreeable to this, after her 2 sons spoke to her. I offered a bariatric bed, she refused. She requests a sleep aid, and to sleep in the chair she is in. No fevers, chills. Brief History: Per my partner: Miriam German is a 66 y.o. female initially presented to [facility] ED for evaluationof acute onset lower [...] CRP. Orthopedic surgery evaluated the patient in [place]'s ER and recommended the patient be transferred [...] looked in months. Blood cultures drawn from [place] ED returned positive. Orthopedic surgery and general [...] No results for input(s): PROT, LABALBU, LABA1C, I8WNACP, K8MZIIH, FT4, TSH, AST, ALT, LDH, GGT, ALKPHOS, LABGGT, BILITOT, BILIDIR, AMMONIA, AMYLASE, LIPASE, LACTATE, CHOL, HDL, LDLCHOLESTEROL, CHOLHDLRATIO, TRIG, VLDL, ZCC52KW, PHENYTOIN, PHENYF, URICACID, POCGLU in the last 72 hours. ABG:No results found for: POCPH, PHART, PH, POCPCO2, OTH7WTZ, PCO2, POCPO2, PO2ART, PO2, POCHCO3, BGL0QVX, HCO3, NBEA, PBEA, BEART, BE, THGBART, THB, AHD9YFX, RIMX9WBP, P0DVXEON, O2SAT, FIO2 Lab Results Component Value Date/Time [...] THORACIC SPINE WO CONTRAST Result Date: 08/15/2021 Ftvq-hf-tfqvxebx compression fracture of the T4 vertebral body, [...] 08/15/2021 Unsuccessful fluoroscopic-guided lumbar puncture in the obva-pvqr-rbcu decubitus position, as above. IR ARTHR/ASP/INJ MAJOR [...] 11. SW- dc planning to SNF, dw case management social worker. Long discussion with pt, sons and case management social worker, > 45 min spent coordinating care, CLAIRE [...] she will f/u with Dr. Newell in [place] as out-pt.. * Julianne Dickerson PT - [...] 8:21 AM EDT [facility] - Progress Note Today's Date and Time: [...] pubic symphysis aspiration 08/17/21 Infection Control Recommendations [place] Precautions Antimicrobial Stewardship Recommendations Simplification of therapy [...] fall in June 2021, initially presented to [facility] ED on 08/14/21 with complaints of [...] and Vancomycin. The patient was transferred to [facility] for a higher level of care. Abnormal lab findings at [facility] included: Lactic: 2.8 Pro floyd: 3.47 Alk [...] Friends and Family: Not on file Attends Hoahaoism Services: Not on file Active Member of [...] Right femoral venous catheter noted. Medical Decision Lfoylu-Fplzgkbx-Yjcot: Result 2 of 2 This report contains more than one result. Contains abnormal data Culture, Blood 1 Order: [id number] Status: Final result Visible to patient: No (not released) Next appt: None Specimen Information: Blood 0 Result Notes Component 08/14/21 1205 Resulting Agency Specimen Description .BLOOD [facility] Special Requests RIGHT CVC 10ML [facility] Culture POSITIVE BLOOD CULTURE, RN NOTIFIED: [facility] Culture DIRECT GRAM STAIN FROM BOTTLE: GRAM POSITIVE COCCI IN CLUSTERS [facility] Culture STAPHYLOCOCCUS AUREUS This isolate is methicillin susceptible. Abnormal [facility] Culture (NOTE) Direct Gram Stain from bottle result called to and read back by JENNIFER RICHTER RN AT [facility] 3 [id number] 08/15/2021 TB [facility] Susceptibility Staphylococcus aureus (3) Antibiotic Interpretation Microscan Method Status clindamycin Sensitive <=0.25 BACTERIAL SUSCEPTIBILITY PANEL FABIOLA Final erythromycin Sensitive <=0.25 BACTERIAL SUSCEPTIBILITY PANEL AFBIOLA Final gentamicin Sensitive <=0.5 BACTERIAL SUSCEPTIBILITY PANEL [...] data were reviewed Discussed with nursing Staff, project planner Infection Control and Prevention measures reviewed All prior entries were reviewed Administer medications as ordered Prognosis: Fair Discharge planning reviewed Follow up as outpatient. Thank you for allowing us to participate in the care of this patient. Please call with questions. Tita Martinez, ACCOUNT STRATEGIST - MACHINE SILVER STRIPPER ATTESTATION: I have discussed the case, including pertinent history and exam findings with the ACCOUNT STRATEGIST. I have evaluated the History, physical findings and pictures of the patient and the lea elements of the encounter have been performed by me. I have reviewed the laboratory data, other diagnostic studies and discussed them with the ACCOUNT STRATEGIST. I have updated the medical record where necessary. I agree with the assessment, plan and orders as documented by the ACCOUNT STRATEGIST. Eulogio Manzo MD. Pager: - Office: * [...] Patient's name: Miriam German Patient's account/billing number: [id number] Patient's Date of : 1955 Age: 66 y.o. Date of Admission: 08/14/2021 5:10 PM Length of stay during current admission: 3 Primary Care Physician: Bhumika Stacy DO Code Status: Full Code Mode of physician to physician communication: [x] Via telephone [] In person Date and time of sign-out: 08/17/2021 6:34 PM Accepting Monica CAR WASH ATTENDANT: Valerie Miller. Accepting Medicine team: Monica. Accepting team's attending: Dr. Ap Duran Patient's current ICU Bed: 3022 Patient's assigned bed on floor: 2013 [] Med-Surg Monitored [x] Step-down [] Psychiatry ICU [] Psych floor Reason for ICU admission: Sepsis secondary to septic arthritis. ICU course summary: 66-year-old female with history of rheumatoid arthritis on immunosuppressive drugs, presented to [facility] a transfer from [place] ED where she presented for right shoulder pain and suprapubic pain. Patient has a history of traumatic fall in June this year resulting in nondisplaced fracture of left L5 and right L4 transverse process. In [place] ED, there was concern of dissection, CTA [...] was consulted and patient was transferred to [place] for further management. And [place] ER, patient had severe mottling of bilateral [...] joint was aspirated. Her blood cultures from [facility] grew gram-positive cocci MSSA. Infectious disease [...] 08/17/2021 1:41 PM EDT Physical Therapy Facility/Department: [facility] CAR 3 Physical Therapy Initial [...] to the ER as a transfer from [place] for concerns of septic arthritis. Patient presented to [place] ER earlier today with concerns for acute [...] well as abdomen and trunk. Workup at [place] was showed inflammatory changes in the right shoulder and around pubic symphysis that was concerning for septic arthritis. Ortho was consulted at [place] and the orthopedic surgeon did not feel patient was appropriate for bedside arthrocentesis and needed to have exam performed with xray guidance. Patient was transferred to [place] for Ortho eval here. Noted to have leukocytosis of 17.1. CRP elevated to 249.9. Sed rate 66. Blood cultures, lactate acid were drawn. Patient received one dose of Vancomycin and Zosyn at [place]. Received 30cc/kg bolus. Central line wasplaced for poor peripheral access. Urinalysis also positive for UTI. Patient's son is in the room and states they just saw her this past Thursday and she was ambulatorywith walker and was the best that she had looked in months. Per reports she was ambulatory when shefirst arrived at [place] earlier today. 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 Vision/Hearing Vision: WFL Hearing: Within [...] to R ankle, R shoulder AM-PAC Score AM-[facility] Inpatient Mobility Raw Score : 7 (08/17/21 [facility]) AM-PAC Inpatient T-Scale Score : 26.42 (08/17/21 [facility]) Mobility Inpatient CMS 0-100% Score: 92.36 (08/17/21 [facility]) Mobility Inpatient CMS G-Code Modifier : CM (08/17/21 [facility]) Goals Otolaryngology Rep Goals Time Frame for rn long term care goals : 1 visit rn long term care goal 1: assess mobility next session and [...] 9:15 AM EDT [facility] - Progress Note Today's Date and Time: [...] shoulder I&D on 08/16/21 Infection Control Recommendations [place] Precautions Antimicrobial Stewardship Recommendations Simplification of therapy [...] fall in June 2021, initially presented to [facility] ED on 08/14/21 with complaints of [...] and Vancomycin. The patient was transferred to [facility] for a higher level of care. Abnormal lab findings at [facility] included: Lactic: 2.8 Pro floyd: 3.47 Alk phos: 187 CRP: 258.6 WBC: 23.3 Abs neutr: 19.1 ESR: 84 Blood cultures from [place] on 08/14/21 came back positive for gram [...] Friends and Family: Not on file Attends Hoahaoism Services: Not on file Active Member of [...] ADDENDUM: Critical results were called by Dr. Mki Cantu to Dr. Mcelroy on 08/15/2021 at [...] Right femoral venous catheter noted. Medical Decision Emlhta-Fjwoppqo-Rchpa: Result 2 of 2 This report contains more than one result. Contains abnormal data Culture, Blood 1 Order: [id number] Status: Final result Visible to patient: No (not released) Next appt: None Specimen Information: Blood 0 Result Notes Component 08/14/21 1205 Resulting Agency Specimen Description .BLOOD [facility] Special Requests RIGHT CVC 10ML [facility] Culture POSITIVE BLOOD CULTURE, RN NOTIFIED: [facility] Culture DIRECT GRAM STAIN FROM BOTTLE: GRAM POSITIVE COCCI IN CLUSTERS [facility] Culture STAPHYLOCOCCUS AUREUS This isolate is methicillin susceptible. Abnormal [facility] Culture (NOTE) Direct Gram Stain from bottle result called to and read back by JENNIFER RICHTER RN AT [facility] 3 [id number] 08/15/2021 TB [facility] Susceptibility Staphylococcus aureus (3) [...] data were reviewed Discussed with nursing Staff, project planner Infection Control and Prevention measures reviewed All prior entries were reviewed Administer medications as ordered Prognosis: Fair Discharge planning reviewed Follow up as outpatient. Thank you for allowing us to participate in the care of this patient. Please call with questions. Tita Martinez, ACCOUNT STRATEGIST - MACHINE SILVER STRIPPER ATTESTATION: I have discussed the case, including pertinent history and exam findings with the ACCOUNT STRATEGIST. I have evaluated the History, physical findings and pictures of the patient and the lea elements of the encounter have been performed by me. I have reviewed the laboratory data, other diagnostic studies and discussed them with the ACCOUNT STRATEGIST. I have updated the medical record where necessary. I agree with the assessment, plan and orders as documented by the ACCOUNT STRATEGIST. Eulogio Manzo MD. Pager: - Office: * [...] prescribed to be a poor historian at [facility]. Patient reported that the pain was debilitating [...] level of care. Patient was sent to [facility] for possible orthopedic surgery and septic management. Patient did have a central line placed in the right femoral vein. Patient did receive a 30 mL/kg bolus along with vancomycin and [facility] for leukocytosis of 17.1, CRP of 249.9, ESR 66, along with UTI. Blood cultures that time were pending. Upon arrival at [facility] ER patient was found to have dry mucous membranes, severe pain along the right-sided shoulder and hip and severe mottling on the bilateral lower extremities along with the left aspect of the upper extremities. Lab work at [facility] was concerning for a CRP of 258.6, [...] cultures did grow out gram-positive cocci from [facility]. OVERNIGHT EVENTS: Patient went to the [...] Result Unsuccessful fluoroscopic-guided lumbar puncture in the hqke-ysxe-ffst decubitus position, as above. IR ARTHR/ASP/INJ MAJOR [...] CT THORACIC SPINE WO CONTRAST Final Result Rfmu-ni-ltiydyor compression fracture of the T4 vertebral body, [...] PROPHYLAXIS: Stress ulcer: [] PPI Agent [] N5Cafbv [] Sucralfate [] Other [x] None VTE: [...] shoulder and R hip Blood cultures from [place] grew back gram-positive cocci in clusters per [...] if patient requires rehab requesting close to [facility] as that is where her son lives [...] this chart was generated using voice recognition [employer] dictation software. Although every effort was made to ensure the accuracy of this automated mac developer, some errors in mac developer may have occurred. * Tio Bernal DO [...] Tio Bernal DO Orthopedic Surgery Resident PGY-1 [place], [place] * Lisa De La Rosa RN - 08/16/2021 10:13 PM EDT Xray done at bedside * Evie Jordan - 08/16/2021 4:35 PM EDT Echo completed at patient bedside. * Eulogio Manzo MD - 08/16/2021 1:20 PM EDT [facility] - Progress Note Today's Date and Time: [...] 08/16/21 Medical Decision Making/Summary/Discussion:08/16/2021 Infection Control Recommendations [place] Precautions Antimicrobial Stewardship Recommendations Simplification of therapy [...] fall in June 2021, initially presented to [facility] ED on 08/14/21 with complaints of [...] and Vancomycin. The patient was transferred to [facility] for a higher level of care. Abnormal lab findings at [facility] included: Lactic: 2.8 Pro floyd: 3.47 Alk phos: 187 CRP: 258.6 WBC: 23.3 Abs neutr: 19.1 ESR: 84 Blood cultures from [place] on 08/14/21 came back positive for gram [...] mg IntraVENous Q12H ceFAZolin 2,000 mg IntraVENous Chief Talent Officer to OR sodium chloride flush 5-40 mL [...] Friends and Family: Not on file Attends Hoahaoism Services: Not on file Active Member of [...] Right femoral venous catheter noted. Medical Decision Flyktv-Dyzydzne-Bcinl: Medical Decision Making-Other: Note: Labs, medications, radiologic studies were reviewed with personal review of films Large amounts of data were reviewed Discussed with nursing Staff, project planner Infection Control and Prevention measures reviewed All prior entries were reviewed Administer medications as ordered Prognosis: Guarded Discharge planning reviewed Follow up as outpatient. Thank you for allowing us to participate in the care of this patient. Please call with questions. Tita Martinez, ACCOUNT STRATEGIST - MACHINE SILVER STRIPPER ATTESTATION: I have discussed the case, including pertinent history and exam findings with the ACCOUNT STRATEGIST. I have evaluated the History, physical findings and pictures of the patient and the lea elements of the encounter have been performed by me. I have reviewed the laboratory data, other diagnostic studies and discussed them with the ACCOUNT STRATEGIST. I have updated the medical record where necessary. I agree with the assessment, plan and orders as documented by the ACCOUNT STRATEGIST. Eulogio Manzo MD. Pager: - Office: * Holli Llanes [facility] - 08/16/2021 11:28 AM EDT [facility] Pharmacokinetic Monitoring Service - Vancomycin [...] from the original note were not included. [facility] Occupational Therapy Not Seen Note DATE: [...] prescribed to be a poor historian at [facility]. Patient reported that the pain was debilitating [...] level of care. Patient was sent to [facility] for possible orthopedic surgery and septic management. Patient did have a central line placed in the right femoral vein. Patient did receive a 30 mL/kg bolus along with vancomycin and Zosyn IV. Patient's lab work was concerning for leukocytosis of 17.1, CRP of 249.9, ESR 66, along with UTI. Blood cultures that time were pending. Upon arrival at [facility] ER patient was found to have dry mucous membranes, severe pain along the right-sided shoulder and hip and severe mottling on the bilateral lower extremities along with the left aspect of the upper extremities. Lab work at [facility] ER was concerning for a CRP of [...] cultures did grow out gram-positive cocci from [facility]. OVERNIGHT EVENTS: No acute events overnight [...] mg IntraVENous Q12H ceFAZolin 2,000 mg IntraVENous Chief Talent Officer to OR sodium chloride flush 5-40 mL [...] Result Unsuccessful fluoroscopic-guided lumbar puncture in the wgnw-xyoo-pddn decubitus position, as above. IR ARTHR/ASP/INJ MAJOR [...] CT THORACIC SPINE WO CONTRAST Final Result Dlby-nb-jcbcrsym compression fracture of the T4 vertebral body, [...] PROPHYLAXIS: Stress ulcer: [] PPI Agent [] [id number] [] Sucralfate [] Other [x] None VTE: [...] shoulder and R hip Blood cultures from [place] grew back gram-positive cocci in clusters per [...] if patient requires rehab requesting close to [facility] as that is where her son lives [...] this chart was generated using voice recognition [employer] dictation software. Although every effort was made to ensure the accuracy of this automated mac developer, some errors in mac developer may have occurred. * Earnest Gooden RN - 08/15/2021 11:44 AM EDT Patient to IR with RN, assisted to table in supine position. Dr. Siva CARTAGENA/VIVEK RTs at bedside. Site prepped and draped for right shoulder aspirate. Access obtained and scant amount serosang fluid obtained. Specimens collected and to be sent to lab by service writer advisor. Access removed and band aid placed to site. Patient assisted to left side, site prepped and draped for LP. Unable to obtained access for LP. Patient also unable to lay in prone position. Assisted back to bed and patient transported back to room with primary RN. * Stephani Wallace OT - 08/15/2021 9:53 AM EDT Images from the original note were not included. [facility] Occupational Therapy Not Seen Note DATE: [...] prescribed to be a poor historian at [facility]. Patient reported that the pain was debilitating [...] level of care. Patient was sent to [facility] for possible orthopedic surgery and septic management. Patient did have a central line placed in the right femoral vein. Patient did receive a 30 mL/kg bolus along with vancomycin and Zosyn IV. [facility] lab work was concerning for leukocytosis of 17.1, CRP of 249.9, ESR 66, along with UTI. Blood cultures that time were pending. Upon arrival at [facility] ER patient was found to have dry mucous membranes, severe pain along the right-sided shoulder and hip and severe mottling on the bilateral lower extremities along with the left aspect of the upper extremities. Lab work at [facility] was concerning for a CRP of 258.6, [...] cultures did grow out gram-positive cocci from [facility].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
--- NOTE | 2023-03-23 11:42 | RESP.RT ---
Vapotherm 40L/100% pt SpO2 87-90%
[2023-03-23 11:43] LABS: Basophils Absolute Auto 0.1 10^3/uL (0.0-0.1); Basophils Percent Auto 0.5 % (0.2-2.0); Hematocrit 40.5 % (36.0-48.0); Hemoglobin 13.8 g/dL (12.0-16.0); Immature Granulocytes Abs Auto 0.36 10^3/uL (0.00-0.03); Immature Granulocytes Pct Auto 2.9 % (0.0-0.5); Lymphocytes Absolute Auto 1.6 10^3/uL (1.2-3.8); Lymphocytes Percent Auto 13.2 % (20.5-60.0); Mean Corpuscular HGB Conc 34.1 g/dL (29.9-35.2); Mean Corpuscular Hemoglobin 31.4 pg (26.7-34.0); Mean Corpuscular Volume 92.3 fL (81.0-99.0); Monocytes Absolute Auto 0.3 10^3/uL (0.3-0.8); Neutrophils Absolute Auto 10.1 10^3/uL (1.4-6.5); Neutrophils Percent Auto 81.4 % (43.0-75.0); Platelet Count 131 10^3/uL (150-450); Red Blood Count 4.39 10^6/uL (4.20-5.40); Red Cell Distribution Width 14.7 % (11.0-15.0); White Blood Count 12.4 10^3/uL (4.0-11.0)
[2023-03-23] MEDS: METHYLPREDNISOLONE SOD SUCC PF 125 MG/2 ML VIAL IVP (11:47)
[2023-03-23 12:04] LABS: Alanine Aminotransferase 58 U/L (14-59); Albumin Globulin Ratio 0.6; Albumin Level 2.4 g/dL (3.4-5.0); Alkaline Phosphatase 155 U/L (46-116); Anion Gap 14.1; Aspartate Amino Transferase 37 U/L (15-37); BUN Creatinine Ratio 21.7; Bilirubin Total 0.6 mg/dL (0.2-1.0); Calcium 10.6 mg/dL (8.5-10.1); Carbon Dioxide 24.4 mmol/L (21.0-32.0); Chloride 97 mmol/L (98-107); Estimated GFR (African America >60 (>=60); Estimated GFR (Non-African Ame >60 (>=60); Globulin 4.2 g/dL; Glucose 172 mg/dL (74-106); Potassium 3.5 mmol/L (3.5-5.1); Sodium 132 mmol/L (136-145); Total Protein 6.6 g/dL (6.4-8.2); Troponin I High Sensitivity 15.3 pg/mL (4.0-51.3)
--- OUTSIDE RECORDS SUMMARY | 2023-03-23 13:24 | XMS_ITS | CCD ---
Author Name Unknown Address [address] [place] [address] Organization [facility] Care Team Providers Care Stove Tender Name Role Phone Tom Welch MD Unavailable Bhumika Stacy DO Primary Care Provider [phone] Tom Welch MD Unavailable Bhumika Stacy DO Primary Care Provider [phone] BHUMIKA STACY Primary Care Unavailable EULOGIO MANZO [...] Ball, Bhumika Unavailable Tom Welch MD Unavailable [phone] PROVIDER, UNKNOWN Attending Unavailable PROVIDER, UNKNOWN Admitting Unavailable PROVIDER, UNKNOWN Attending Unavailable PROVIDER, UNKNOWN Admitting Unavailable Godfrey, Dr. Bai Kirklin Primary Care Zenavajeniffer Stacy, Dr. Bai Kirklin Primary Care Zenavajeniffer Hassan MASTER MACHINIST-QUALITY CONTROL COORDINATOR, Lexie Zaman Attending Zena vailable Ball DO, Bhumika Edstewart Consulting Unavail able Ball DO, Bhumika Kirklin Primary Care Unavail able Ball DO, [facility] Primary Care Unavail able Pratima BUSTILLOS, Eulogio Becker Referring Unavailable Chan BUSTILLOS, Jean-Claude Kumari Attending Unavailable Tessa BUSTILLOS, Jhoan Attending Unavailable Ball DO, Bhumika Kirklin Primary Care Unavail able [place] DO, Boni Ontiveros Attending Unav ailable Ball DO, Bhumika Kirklin Consulting Unavail able Ball DO, Bhumika Kirklin Primary Care Unavail able Ball, DO [place] Primary Care Provider DO Boni Lincoln Admit Provider [phone] MD Arnaud Max Attending Provider MD Moises Garcia Other Provider MD Kira Gill Other Provider [phone] MD Tom Hill Admit Provider MD Tom Hill Attending Provider [phone] VIDYA Lay Other Provider Unavailable VIDYA Gotti Other Provider Unavailable VIDYA Rider Other Provider Unavailable VIDYA Caballero Other Provider Unavailable VIDYA Canela Other Provider Unavailable VIDYA Mohamud Other Provider Unavailable MD Hamzah Groves Other Provider MD Molina Mccoy Other Provider Unavailable Dials, MASTER MACHINIST Isabel M Other Provider [phone] DO Francesco Tomas Other Provider [phone] MD Randal Moore Other Provider DO Adam Estrella Other Provider MD Arnaud Max Other Provider MD Gabby Salinas Other Provider Musa, ANP-BC Vicky Other Provider MD Kelsie Hoover Other Provider [phone] MD Yousif Toro Other Provider MD Frank Cook Other Provider MD Lawrence Ramirez Other Provider DO Boni Lincoln Other Provider MD Irma Traore Other Provider MD Yohannes Vargas Other Provider Pasquale, PROCESSING ASSISTANT-C Cathy Orlando Other Provider [phone] MD [...] Other Provider DO Julian Bell Other Provider [phone] MD Isabel Mcneil Other Provider [phone] MD Gregg Galvez Other Provider [phone] MD Balta Palmer Other Provider DO Neville Faulkner Other Provider Bhumika Stacy DO Primary Care Provider [phone] Moises Garcia Unavailable Bhumika Stacy DO Primary Care Provider NAMRATA POWELL Attending Unavailable CONSULT, SURGERY - NEURO Consulting Unavail able GODFREYBHUMIKA Primary Care Unavailable SYSTEM, PROVIDER NOT IN Referring Unavaila KELSIE Bowen Admitting Unavailable MD Moises Garcia Attending Provider [phone] Tom Hill Admitting Unavailable Tom Hill Attending [...] Attending Unavailable Garcia, Moises E Ad[facility] Arnaud Max Attending Unavailable Garcia, Moises E Consulting Unavailable Boni Lincoln Admitting Unavailable [facility] Primary Care Unavailable Jairo, Kira Bowles Consulting Unavaila CHARANJIT Carrero Attending Unavailable [place], ERIE Primary Care Unavailable KOKO KELLY Attending Unavailable [facility] Primary Care Unavailable JOHNSONMARY ANN DUQUE Referring Unavailabl e BALL, ERIE Primary Care Unavailable MADISYNHECTOR Referring Unavailable BALL, ERIE Primary Care Unavailable BALL, ERIE Primary Care Unavailable MADISYNHECTORIN Referring Unavailable MADISYNHECTOR Referring Unavailable BALL, ERIE Primary Care Unavailable MADISYN, HECTOR WADE Referring Unavailable BALL, ERIE Primary Care Unavailable JOHNSONMARY ANN GRIDER Referring Unavailabl e BALL, ERIE Primary Care Unavailable MADISYNHECTOR Referring Unavailable BALL, ERIE Primary Care Unavailable MADISYN, HECTOR BURROWSIN Referring Unavailable BALL, ERIE Primary Care Unavailable Allergies Allergy Classification Reported Allergen(s) Allergy Type Date of Onset Reaction(s) Facility (2 sources) patient allergy list reviewed by nurse or physicia Propensity to adverse reactions 5 Comment:Done [email or web address] Other Medications Current Medications Medication Drug Class(es) [...] tablet 650 mg take [address] [facility] twice daily for pain Acetaminophen [...] Laxative Start: 09-25-2022 Bisacodyl Active 10 MG [place] Daily 0 September 25, 2022 12:00am calcium [...] 100 mg take 1 capsule by mo [facility] every twelve hours Colace 100 MG 1 capsule Orally every 12 hours as need Active docusate sodium 50 mg / sennosides, correction 8.6 mg oral tablet (6 sources) Start: [...] tid Jan, Active take [address] [facility] three times daily gabapentin (NEURONTIN) [...] capsule 2 mg take [address] 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; Translations: [OTH DETENTION CURRENT DRUG THERAPY] Onset: 05-15-2022 Episodic Other [...] Episodic Other endocrine disorders (6 sources) 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; 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 Other endocrine disorders (7 sources) Drug-induced Digna's syndrome Chronic Other endocrine disorders (20 sources) Hypercortisolism; 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 Other fractures (6 sources) Unspecified [...] unspecified infectious and parasitic diseases; 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 Banerjee on 03/18/23. [facility] relaying the message below: This is the [facility] calling regarding your upcoming appointment with Dr. Banerjee. Please complete the assigned pre-visit questionnaires on [employer] prior to your appointment. To avoid a delay in your care, please bring any radiology images that have been done outside of the [facility] Systems on a disk to be [...] by AUGUSTA CHO MA on 03/17/23 Normal [facility] Hemoglobin A1Con 11-26-2022 Glucose [Mass/Vol] 97 mg/dL Normal [facility] Comment on above: Result Comment: The ADA and AACC recommend providing the estimated average glucose result to permit better patient understanding of their HBA1c result. Performed By: #### B C #### [address] [place] [address] Blood Bank Booking Clerk: Collette Willard MD HbA1c (Bld) [Mass fraction] 5.0 % Normal 4.0-6.0 [facility] Comment on above: Performed By: #### B C #### [address] [place] [address] Blood Bank Booking Clerk: Collette Willard MD Urinalysis, Routineon 2022 Bilirubin, SemiQt,Ur Negative Normal NEG [facility] Comment on above: Performed By: #### BRUCE Hussein #### [address] [place] [address] Blood Bank Booking Clerk: Collette Willard MD Blood, Urine TRACE Abnormal NEG [facility] Comment on above: Performed By: #### U BRUCE Ragsdale #### [facility] [address] [place] [address] [place] [address] Blood Bank Booking Clerk: Collette Willard MD Clarity (U) Clear Normal CLEAR [facility] Comment on above: Performed By: #### U A, UMICAO #### [facility] [address] [place] [address] Dr[address] [place], [place] [id number] Blood Bank Booking Clerk: Collette Willard MD Color (U) Yellow Normal YEL [facility] Comment on above: Performed By: #### U A, UMICAO #### [facility] [address] [place] [address] [place] [address] Blood Bank Booking Clerk: Collette Willard MD Glucose Ql (U) Negative Normal NEG [facility] Comment on above: Performed By: #### U A, UMICAO #### [facility] [address] [place] [address] Dr. [place], [place] [id number] Blood Bank Booking Clerk: Collette Willard MD Ketones Ql (U) Negative Normal NEG [facility] Comment on above: Performed By: #### U A, UMICAO #### [facility] [address] [place] [address] [place] [address] Blood Bank Booking Clerk: Collette Willard MD Leukocyte esterase Test strip Ql (U) Negative Normal NEG [facility] Comment on above: Performed By: #### U A, UMICAO #### [facility] [address] [place] [address] [place] [address] Blood Bank Booking Clerk: Collette Willard MD Nitrite,Ur Positive Abnormal NEG [facility] Comment on above: Performed By: #### U A, UMICAO #### [facility] [address] [place] [address] [place] [address] Blood Bank Booking Clerk: Collette Willard MD PH,Ur 6.0 Normal 5.0-9.0 [facility] Comment on above: Performed By: #### U A, UMICAO #### [facility] [address] [place] [address] [place] [address] Blood Bank Booking Clerk: Collette Willard MD Protein Ql (U) Negative Normal NEG [facility] Comment on above: Performed By: #### U A, UMICAO #### [address] [place], [place] 18[address]83 Blood Bank Booking Clerk: Collette Willard MD Spec. [place],Ur 1.010 Normal 1.010-1.020 [facility] Comment on above: Performed By: #### U A, UMICAO #### [facility] [address] [place] [address] [place] [address] Blood Bank Booking Clerk: Collette Willard MD Urobilinogen,Ur Normal Normal 0.0-1.0 [facility] Comment on above: Performed By: #### U A, KARYNICAO #### [address] [place], [facility] Blood Bank Booking Clerk: Collette Willard MD Urinalysis,Microon 3 Bacteria 1+ Abnormal [facility] Comment on above: Performed By: #### U AJUANO #### [address] [place], [place] [address]83 Blood Bank Booking Clerk: Collette Willard MD Crystals LM Nom (Urine sed) GREATER THAN 50 Abnormal [facility] Comment on above: Result Comment: CALC IUM OXALATE Performed By: #### U A, UMICAO #### [facility] [address] [place] [address] Dr. [place], [place] 4805983 Blood Bank Booking Clerk: Collette Willard MD Epithelial cells LM Ql (Urine sed) 5 TO 10 Normal 0-25 [facility] Comment on above: Performed By: #### U A, UMICAO #### [address] [place], [place] 3008383 Blood Bank Booking Clerk: Collette Willard MD Urine RBC's 0 TO 2 Normal 0-2 [facility] Comment on above: Performed By: #### U A, UMICAO #### [facility] [address] [place], [place] 7470283 Blood Bank Booking Clerk: Collette Willard MD Urine WBC's None Normal 0-5 [facility] Comment on above: Performed By: #### U A, UMICAO #### [facility] [address] [place], [place] 55[address]83 Blood Bank Booking Clerk: Collette Willard MD Drug Scr, Abuse, Uron 2022 Amphetamine(s),Ur Negative Normal NEG [facility] Comment on above: Result Comment: (Positive cutoff 1000 ng/mL) Performed By: #### U A, KAYLA, UMICAO #### [address] [place], [place] 0801183 Blood Bank Booking Clerk: Collette Willard MD Barbiturate(s),Ur Negative Normal NEG [facility] Comment on above: Result Comment: (Positive cutoff 200 ng/mL) Performed By: #### U A, KAYLA, UMICAO #### [address] [place], [place] 6845883 Blood Bank Booking Clerk: Collette Willard MD Benzodiazepine(s) Negative Normal NEG [facility] Comment on above: Result Comment: (Positive cutoff 200 ng/mL) Performed By: #### U A, KAYLA, UMICAO #### [facility] [address] [place] [address] Dr. [place], [place] 4275683 Blood Bank Booking Clerk: Collette Willard MD Buprenorphrine, Ur Negative Normal NEG [facility] Comment on above: Result Comment: (Positive cutoff 5 ng/ml) Performed By: #### U A, KAYLA, UMICAO #### [facility] [address] [place], [place] 48[address]83 Blood Bank Booking Clerk: Collette Willard MD Cannabinoid(s),Ur Negative Normal NEG [facility] Comment on above: Result Comment: (Positive cutoff 50 ng/mL) Performed By: #### U A, KAYLA, UMICAO #### [address] [place], [place] 9797283 Blood Bank Booking Clerk: Collette Willard MD Cocaine Metabolite Negative Normal [facility] Comment on above: Result Comment: (Positive cutoff 300 ng/mL) Performed By: #### U A, KAYLA, UMICAO #### [address] [place], [place] 6483283 Blood Bank Booking Clerk: Collette Willard MD Fentanyl, Urine Negative Normal [facility] Comment on above: Result Comment: (Positive cutoff 5 ng/ml) Performed By: #### U A, KAYLA, UMICAO #### [address] [place], [place] 513[address]83 Blood Bank Booking Clerk: Collette Willard MD Interpretive Info Assay provides medic al screening only. The absence of expected drug(s) and/or Normal [facility] Comment on above: Result Comment: meta bolite(s) may indicate diluted or adulterated urine, limitations of testing or timing of collection. Testing for legal purposes should be confirmed by another method. To request confirmation of test result, please call the lab within 7 days of sample submission. Performed By: #### U A, KAYLA, UMICAO #### [address] [place], [place] 5899083 Blood Bank Booking Clerk: Collette Willard MD Methadone Ql (U) Negative Normal NEG [facility] Comment on above: Result Comment: (Positive cutoff 300 ng/mL) Performed By: #### U A, KAYLA, UMICAO #### [address] [place], [place] [address]27[address]83 Blood Bank Booking Clerk: Collette Willard MD Opiate(s), Ur Negative Normal NEG [facility] Comment on above: Result Comment: (Positive cutoff 300 ng/mL) Performed By: #### U A, KAYLA, UMICAO #### [address] [place], [place] 6405383 Blood Bank Booking Clerk: Collette Willard MD Oxycodone, Urine Negative Normal NEG [facility] Comment on above: Result Comment: (Positive cutoff 100 ng/mL) Performed By: #### U A, KAYLA, UMICAO #### [facility] [address] [place] [address] Dr. [place], [place] 1684283 Blood Bank Booking Clerk: Collette Willard MD Phencyclidine, Ur Negative Normal NEG [facility] Comment on above: Result Comment: (Positive cutoff 25 ng/mL) Performed By: #### U A, KAYLA, UMICAO #### [address] [place], [place] 2529383 Blood Bank Booking Clerk: Collette Willard MD Urinalysis, Routineon 2022 Bilirubin, SemiQt,Ur SMALL Abnormal NEG [facility] Comment on above: Performed By: #### U A, KAYLA, UMICAO #### [address] [place], [place] 6523783 Blood Bank Booking Clerk: Collette Willard MD Blood, Urine 1+ Abnormal NEG [facility] Comment on above: Performed By: #### U A, KAYLA, UMICAO #### [address] [place], [place] 9376183 Blood Bank Booking Clerk: Collette Willard MD Clarity (U) SLIGHTLY CLOUDY Abnormal CLEAR [facility] Comment on above: Performed By: #### U A, KAYLA, UMICAO #### [facility] [address] [place] [address] Dr. [place], [place] 6622083 Blood Bank Booking Clerk: Collette Willard MD Color (U) Yellow Normal YEL [facility] Comment on above: Performed By: #### U A, KAYLA, UMICAO #### [facility] [address] [place] [address] Dr. [place], [place] 8127183 Blood Bank Booking Clerk: Collette Willard MD Glucose Ql (U) Negative Normal NEG [facility] Comment on above: Performed By: #### U A, KAYLA, UMICAO #### [address] [place], [place] [address]83 Blood Bank Booking Clerk: Collette Willard MD Ketones Ql (U) Negative Normal NEG [facility] Comment on above: Performed By: #### U A, KAYLA, UMICAO #### [address] [place], [place] [address] Blood Bank Booking Clerk: Collette Willard MD Leukocyte esterase Test strip Ql (U) Negative Normal NEG [facility] Comment on above: Performed By: #### U A, KAYLA, UMICAO #### [address] [place], [facility] Blood Bank Booking Clerk: Coleltte Willard MD Nitrite,Ur Negative Normal NEG [facility] Comment on above: Performed By: #### U A, KAYLA, UMICAO #### [address] [place], [facility] Blood Bank Booking Clerk: Collette Willard MD PH,Ur 5.5 Normal 5.0-9.0 [facility] Comment on above: Performed By: #### U A, KAYLA, UMICAO #### [address] [place], [place] [address] Blood Bank Booking Clerk: Collette Willard MD Protein Ql (U) TRACE Abnormal NEG [facility] Comment on above: Performed By: #### U A, KAYLA, UMICAO #### [address] [place], [place] [address] Blood Bank Booking Clerk: Collette Willard MD Spec. Napier,Ur 1.020 Normal 1.010-1.020 [facility] Comment on above: Performed By: #### U A, KAYLA, UMICAO #### [address] [place], [facility] Blood Bank Booking Clerk: Collette Willard MD Urobilinogen,Ur Normal Normal 0.0-1.0 [facility] Comment on above: Performed By: #### U A KAYLA UMICAO #### [facility] [address] [place], [place] [address]83 Blood Bank Booking Clerk: Collette Willard MD Urinalysis,Microon 3 Bacteria 1+ Abnormal NONE [facility] Comment on above: Performed By: #### U A KAYLA, UMICAO #### [facility] [address] [place], [place] 7245383 Blood Bank Booking Clerk: Collette Willard MD Epithelial cells LM Ql (Urine sed) 2 TO 5 Normal 0-25 [facility] Comment on above: Performed By: #### U AKAYLA UMICAO #### [facility] [address] [place] [address] Dr. [place], [place] 1062683 Blood Bank Booking Clerk: Collette Willard MD Mucus Strands TRACE Abnormal NONE [facility] Comment on above: Performed By: #### U AKAYLA UMICAO #### [facility] [address] [place] [address] Dr. [place], [place] 1636083 Blood Bank Booking Clerk: Collette Willard MD Urine RBC's 0 TO 2 Normal 0-2 [facility] Comment on above: Performed By: #### U A KAYLAKARYN NegroICAO #### [facility] [address] [place] [address] Dr. [place], [place] 3021183 Blood Bank Booking Clerk: Collette Willard MD Urine WBC's 0 TO 2 Normal 0-5 [facility] Comment on above: Performed By: #### U A KAYLA UMICAO #### [facility] [address] [place], [place] [address]196283 Blood Bank Booking Clerk: Collette Willard MD XR cervical spine 2Von 11-14 XR cervical spine 2V [facility] [place] [address] [place], [place] [address] XRay Report Signed Patient: Miriam German MR#: [id number] : 1955 Acct:[id number] Age/Sex: 67 / F ADM Date: 11/14/22 Loc: XD Room: Type: [facility] Attending Dr: Moises Garcia MD Copies to: [...] Coates Jr., DNickONick11/14/2022 3:16 PM Dictation Location: [place] [address] Transcribed By: [facility] 11/14/22 151 Dictated By: Tom Coates Jr, DO 11/14/22 151 Signed By: 11/14/22 151 [facility] CBC with Auto Differentialon 10-27-2022 Basophils (Bld) [#/Vol] 0.06 10*3/uL [facility] Basophils/100 WBC (Bld) 1 % 0 - 2 % [facility] Eosinophils (Bld) [#/Vol] 0.04 10*3/uL [facility] Eosinophils/100 WBC (Bld) 0 % Low 1 - 4 % [employer] Erythrocyte distribution width (RBC) [Ratio] 14.6 % High 11.8 - 14.4 % [employer] [facility] Hematocrit (Bld) [Volume fraction] 40.7 % 36.3 - 47.1 % [employer] [facility] Hemoglobin (Bld) [Mass/Vol] 13.0 g/dL 11.9 - 15.1 g/dL [facility] Immature granulocytes (Bld) [#/Vol] 0.34 10*3/uL High [facility] Immature granulocytes/100 WBC (Bld) 3 % High 0 [facility] Interpretation and review of laboratory results Abnormal [facility] Lymphocytes/100 WBC (Bld) 10 % Low 24 - 43 % [facility] Lymphocytes/100 WBC (Bld) 0.98 % Low [facility] MCH (RBC) [Entitic mass] 30.2 pg 25.2 - 33.5 pg [facility] MCHC (RBC) [Mass/Vol] 31.9 g/dL 28.4 - 34.8 g/dL [facility] MCV (RBC) [Entitic vol] 94.4 fL 82.6 - 102.9 fL [facility] Monocytes/100 WBC (Bld) 3 % 3 - 12 % [facility] Monocytes/100 WBC (Bld) 0.35 % [facility] Neutrophils/100 WBC (Bld) 83 % High 36 - 65 % [facility] Nucleated RBC/100 WBC (Bld) [Ratio] 0.0 % 0.0 per 100 WBC [facility] Platelet mean volume (Bld) [Entitic vol] 9.6 fL 8.1 - 13.5 fL [facility] Platelets (Bld) [#/Vol] 166 10*3/uL [facility] RBC (Bld) [#/Vol] 4.31 10*6/uL 3.95 - 5.1 1 m/uL [facility] Segmented neutrophils/100 WBC (Bld) 8.60 % High [facility] WBC other (Bld) [#/Vol] 10.4 [facility] CBC with Diffon 10-27-2022 Abs. Basophil 0.06 k/uL Normal 0.00-0.20 [facility] Comment on above: Performed By: #### C P, CBC #### [facility] [address] [place] [address] Blood Bank Booking Clerk: Collette Willard MD Abs.Imm.Granulocyte 0.34 k/uL High 0.00-0.30 [facility] Comment on above: Performed By: #### C P, CBC #### [address] [place] [address] Blood Bank Booking Clerk: Collette Willard MD Abs.Neutrophil (Seg) 8.60 k/uL High 1.50-8.10 [facility] Comment on above: Performed By: #### C P, CBC #### [address] [place], [facility] Blood Bank Booking Clerk: Collette Willard MD Basophils/100 WBC (Bld) 1 % Normal 0-2 [facility] Comment on above: Performed By: #### C P, CBC #### [address] [place] [id number] Blood Bank Booking Clerk: Collette Willard MD Eosinophils (Bld) [#/Vol] 0.04 10*3/uL Normal 0.00-0.44 [facility] Comment on above: Performed By: #### C P, CBC #### [address] [place] [address] Blood Bank Booking Clerk: Collette Willard MD Eosinophils/100 WBC (Bld) 0 % Low 1-4 [facility] Comment on above: Performed By: #### C P, CBC #### [address] [place], [facility] Blood Bank Booking Clerk: Collette Willard MD Erythrocyte distribution width (RBC) [Ratio] 14.6 % High 11.8-14.4 [facility] Comment on above: Performed By: #### C P, CBC #### [address] [place] [id number] Blood Bank Booking Clerk: Collette Willard MD Hematocrit (Bld) [Volume fraction] 40.7 % Normal 36.3-47.1 [facility] Comment on above: Performed By: #### C P, CBC #### [facility] [address] [place], [place] 860[address]83 Blood Bank Booking Clerk: Collette Willard MD Hemoglobin (Bld) [Mass/Vol] 13.0 g/dL Normal 11.9-15.1 [facility] Comment on above: Performed By: #### C P, CBC #### [facility] [address] [place], [facility] Blood Bank Booking Clerk: Collette Willard MD Immature granulocytes/100 WBC (Bld) 3 % High 0 [facility] Comment on above: Performed By: #### C P, CBC #### [address] [place] [address] Blood Bank Booking Clerk: Collette Willard MD Lymphocytes (Bld) [#/Vol] 0.98 10*3/uL Low 1.10-3.70 [facility] Comment on above: Performed By: #### C P, CBC #### [address] [place], [facility] Blood Bank Booking Clerk: Collette Willard MD Lymphocytes/100 WBC (Bld) 10 % Low 24-43 [facility] Comment on above: Performed By: #### C P, CBC #### [address] [place] [address] Blood Bank Booking Clerk: Collette Willard MD MCH (RBC) [Entitic mass] 30.2 pg Normal 25.2-33.5 [facility] Comment on above: Performed By: #### C P, CBC #### [address] [place] [address] Blood Bank Booking Clerk: Collette Willard MD MCHC (RBC) [Mass/Vol] 31.9 g/dL Normal 28.4-34.8 [facility] Comment on above: Performed By: #### C P, CBC #### [address] [place] [address] Blood Bank Booking Clerk: Collette Willard MD MCV (RBC) [Entitic vol] 94.4 fL Normal 82.6-102.9 [facility] Comment on above: Performed By: #### C P, CBC #### [facility] [address] [place], [place] [id number] Blood Bank Booking Clerk: Collette Willard MD Monocytes (Bld) [#/Vol] 0.35 10*3/uL Normal 0.10-1.20 [facility] Comment on above: Performed By: #### C P, CBC #### [address] [place], [place] [address] Blood Bank Booking Clerk: Collette Willard MD Monocytes/100 WBC (Bld) 3 % Normal 3-12 [facility] Comment on above: Performed By: #### C P, CBC #### [address] [place], [place] [id number] Blood Bank Booking Clerk: Collette Willard MD Neutrophil (Seg) 83 % High 36-65 [facility] Comment on above: Performed By: #### C P, CBC #### [address] [place], [place] [id number] Blood Bank Booking Clerk: Collette Willard MD NRBC Automated 0.0 per 100 WBC Normal 0.0 [facility] Comment on above: Performed By: #### C P, CBC #### [address] [place], [place] [id number] Blood Bank Booking Clerk: Collette Willard MD Platelet mean volume (Bld) [Entitic vol] 9.6 fL Normal 8.1-13.5 [facility] Comment on above: Performed By: #### C P, CBC #### [address] [place] [address] Blood Bank Booking Clerk: Collette Willard MD Platelets (Bld) [#/Vol] 166 10*3/uL Normal 138-453 [facility] Comment on above: Performed By: #### C P, CBC #### [facility] [address] [place] [address] Blood Bank Booking Clerk: Collette Willard MD RBC (Bld) [#/Vol] 4.31 10*6/uL Normal 3.95-5.11 [facility] Comment on above: Performed By: #### C P, CBC #### [facility] [address] [place] [address] Blood Bank Booking Clerk: Collette Willard MD WBC (Bld) [#/Vol] 10.4 10*3/uL Normal 3.5-11.3 [facility] Comment on above: Performed By: #### C P, CBC #### [facility] [address] [place] [address] Blood Bank Booking Clerk: Collette Willard MD [facility] 10-27-2022 Albumin [Mass/Vol] 3.6 g/dL 3.5 - 5.2 g/dL [facility] Albumin/Globulin [Mass ratio] 1.6 {ratio} 1.0 - 2.5 [facility] ALP [Catalytic activity/Vol] 152 U/L High 35 - 104 U/L [facility] ALT [Catalytic activity/Vol] 47 U/L High 5 - 33 U/L [facility] Anion gap [Moles/Vol] 9 mmol/L 9 - 17 mmol/L [facility] AST [Catalytic activity/Vol] 38 U/L High NINF - 32 U/L [facility] Bilirubin [Mass/Vol] 0.3 mg/dL 0.3 - 1 .2 mg/dL [facility] Calcium [Mass/Vol] 9.5 mg/dL 8.6 - 10. 4 mg/dL [facility] Chloride [Moles/Vol] 102 mmol/L 98 - 10 7 mmol/L [facility] CO2 [Moles/Vol] 30 mmol/L 20 - 31 mmol/L [facility] Creatinine [Mass/Vol] 0.3 mg/dL Low 0.5 - 0.9 mg/dL [facility] [employer] GFR/1.73 sq M.predicted MDRD (S/P/Bld) [Vol rate/Area] - PIN[facility] Comment on above: These results are not [...] 118 mg/dL High 70 - 99 mg/dL [facility] [employer] Interpretation and review of laboratory results Abnormal [facility] Potassium [Moles/Vol] 4.1 mmol/L 3.7 - 5.3 mmol/L [facility] [employer] Protein [Mass/Vol] 5.9 g/dL Low 6.4 - 8.3 g/dL [facility] Sodium [Moles/Vol] 141 mmol/L 135 - 144 mmol/L [facility] Urea nitrogen [Mass/Vol] 11 mg/dL 8 - 23 mg/dL [facility] Urea nitrogen/Creatinine [Mass ratio] 37 mg/mg High 9 - [address] [facility] [address] CERVICAL SPINE WO CONTRAS [...] Jaiden Mendez MD 10/27/22 Final result Normal [facility] CT CSpine W/O Contraston No acute fracture or malalignment of the cervical spine. Remote dens fracture with posterior fixation at C1-C2. 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 [facility] EXAMINATION: CT OF THE CERVICAL [...] There is no prevertebral soft tissue swelling. [facility] Jaiden Mendez MD - 10/27/2022 [...] cervical spine with bilateral bony foraminal narrowing. [facility] Radiology Study observation (narrative) [facility] CT HEAD WO CONTRASTon 2022 CT HEAD [...] Jaiden Mendez MD 10/27/22 Final result Normal [facility] CT Head W/O Contraston 10-27 No acute intracrania l abnormality. Fluid throughout the mastoid air cells representing effusion versus a degree of mastoiditis. [facility] EXAMINATION: CT OF THE HEAD [...] of the visualized skull or soft tissues. [facility] Jaiden Mendez MD - 10/27/2022 [...] representing effusion versus a degree of mastoiditis. [facility] Radiology Study observation (narrative) [facility] CT Head W/O ContrastOrdered By: Jaiden Mendez on 10-27-2022 [facility] Work Phone: Comp Metabolic Profon 2022 Albumin [Mass/Vol] 3.6 g/dL Normal 3.5-5.2 [facility] Comment on above: Performed By: #### C P, CBC #### [facility] [address] [place] [address] [place] [address] Blood Bank Booking Clerk: Collette Willard MD Albumin/Glob Ratio 1.6 Normal 1.0-2.5 [facility] Comment on above: Performed By: #### C P, CBC #### [facility] [address] [place] [address] [place] [address] Blood Bank Booking Clerk: Collette Willard MD Alkaline Phos 152 U/L High 35-104 [facility] Comment on above: Performed By: #### C P, CBC #### [facility] [address] [place] [address] Blood Bank Booking Clerk: Collette Willard MD ALT [Catalytic activity/Vol] 47 U/L High 5-33 [facility] Comment on above: Performed By: #### C P, CBC #### [facility] [address] [place] [address] Blood Bank Booking Clerk: Collette Willard MD Anion gap [Moles/Vol] 9 mmol/L Normal 9-17 [facility] Comment on above: Performed By: #### C P, CBC #### [facility] [address] [place], [place] [id number] Blood Bank Booking Clerk: Collette Willard MD AST [Catalytic activity/Vol] 38 U/L High <32 [facility] Comment on above: Performed By: #### C P, CBC #### [facility] [address] [place], [place] [address]83 Blood Bank Booking Clerk: Collette Willard MD Bilirubin [Mass/Vol] 0.3 mg/dL Normal 0.3-1.2 [facility] Comment on above: Performed By: #### C P, CBC #### [facility] [address] [place], [place] [address] Blood Bank Booking Clerk: Collette Willard MD BUN/CRE Ratio 37 High 9-20 [facility] Comment on above: Performed By: #### C P, CBC #### [facility] [address] [place], [place] 8479183 Blood Bank Booking Clerk: Collette Willard MD Calcium [Mass/Vol] 9.5 mg/dL Normal 8.6-10.4 [facility] Comment on above: Performed By: #### C P, CBC #### [facility] [address] [place], [place] [address] Blood Bank Booking Clerk: Collette Willard MD Chloride [Moles/Vol] 102 mmol/L Normal 98-107 [facility] Comment on above: Performed By: #### C P, CBC #### [facility] [address] [place], [place] [id number] Blood Bank Booking Clerk: Collette Willard MD CO2 [Moles/Vol] 30 mmol/L Normal 20-31 [facility] Comment on above: Performed By: #### C P, CBC #### [facility] [address] [place] [address] Blood Bank Booking Clerk: Collette Willard MD Creatinine [Mass/Vol] 0.3 mg/dL Low 0.5-0.9 [facility] Comment on above: Performed By: #### C P, CBC #### [facility] [address] [place] [address] Blood Bank Booking Clerk: Collette Willard MD GFR/1.73 sq M.predicted among non-blacks MDRD (S/P/Bld) [Vol rate/Area] mL/min/{1.73_m2} Normal >60 [facility] Comment on above: Result Comment: These [...] #### C P, CBC #### [facility] [address] [place] [address] Blood Bank Booking Clerk: Collette Willard MD Glucose [Mass/Vol] 118 mg/dL High 70-99 [facility] Comment on above: Performed By: #### C P, CBC #### [facility] [address] [place] [address] Blood Bank Booking Clerk: Collette Willard MD Potassium [Moles/Vol] 4.1 mmol/L Normal 3.7-5.3 [facility] Comment on above: Performed By: #### C P, CBC #### [facility] [address] [place] [address] Blood Bank Booking Clerk: Collette Willard MD Protein [Mass/Vol] 5.9 g/dL Low 6.4-8.3 [facility] Comment on above: Performed By: #### C P, CBC #### [facility] [address] [place] [address] Blood Bank Booking Clerk: Collette Willard MD Sodium [Moles/Vol] 141 mmol/L Normal 135-144 [facility] Comment on above: Performed By: #### C P, CBC #### [facility] [address] [place] [address] Blood Bank Booking Clerk: Collette Willard MD Urea nitrogen [Mass/Vol] 11 mg/dL Normal 11-12 [facility] Comment on above: Performed By: #### C P, CBC #### [facility] [address] [place] [address] Blood Bank Booking Clerk: Collette Willard MD ABORH TYPE RECONFIRMATIONon 10-17-2022 ABO/RH(D) TYPE Positive Normal [facility] Comment on above: Result Comment: @ 04:42 by AS1: Performed By: #### T YPEC #### [facility] (DEFAULT) [address] [place] [address] ABO/RH(D) TYPE Positive [facility] Comment on above: @10/17/22 04:42 by A S1: [facility] No Panel Informationon 10-16 [facility] XR Cervical spine 2 Viewson 10-16-2022 [...] particularly given the lack of recent intervention. [facility] Radiology Study observation (narrative) [facility] XR Cervical spine 2 ViewsOrd ered By: Radha Muniz on 10-16-2022 [facility] Work Phone: XR SPINE CERVICAL 2 [...] given the lack of recent intervention. Normal [facility] EXTRA MICROon 10-15-2022 [facility] MRI BRAIN WO CONTRASTon - MRI BRAIN [...] Nahid Jeffries MD 10/14/22 Final result Normal [facility] MRI CERVICAL SPINE W WO CONT [...] Nahid Jeffries MD 10/14/22 Final result Normal [facility] BLOOD CULTUREon 10-14-2022 Bacteria identified Cx Nom (Unsp spec) NO GROWTH DAY 5 OF 5 Normal [facility] Comment on above: Order Comment: 2 Bot [...] Performed By: #### B LDCULT #### [facility] (DEFAULT) [address] [address] Order Comment: 2 Bot tles (1 Set [...] bottle Performed By: #### C 7ED #### [facility] (DEFAULT) [address] [address] C REACTIVE PROTEINon 023 CRP [Mass/Vol] 17.94 mg/L High <10.[address] [facility] Comment on above: Performed By: #### C 7ED #### [facility] (DEFAULT) [address] [address] CRP High sensitivity method [Mass/Vol] 17.94 mg/L High NINF - 10.00 mg/L [facility] Interpretation and review of laboratory results Abnormal [facility] CBC AND ELECTRONIC DIFFon Abs Eos Auto < Normal 0.00-0.[address] [facility] Comment on above: Performed By: #### L [id number] #### [facility] (DEFAULT) [address] [address] Basophils (Bld) [#/Vol] 0.05 10*3/uL Normal 0.00-0.[address] [facility] Comment on above: Performed By: #### L [id number] #### [facility] (DEFAULT) [address] [address] Basophils/100 WBC (Bld) 0.7 % Normal [facility] Comment on above: Performed By: #### L [id number] #### [facility] (DEFAULT) [address] [address] DIFF STATUS Electronic Differential Normal [facility] Comment on above: Performed By: #### L [id number] #### [facility] (DEFAULT) [address] [address] Eosinophils/100 WBC (Bld) 0.0 % Normal [facility] Comment on above: Performed By: #### L [id number] #### [facility] (DEFAULT) [address] [address] Hematocrit (Bld) [Volume fraction] 45.9 % High 34.9-44.[address] [facility] Comment on above: Performed By: #### L [id number] #### [facility] (DEFAULT) [address] [address] Hemoglobin (Bld) [Mass/Vol] 14.6 g/dL Normal 11.4-15.[address] [facility] Comment on above: Performed By: #### L [id number] #### [facility] (DEFAULT) [address] [address] Immature Grans % 4.7 % Normal [facility] Comment on above: Performed By: #### L [id number] #### [facility] (DEFAULT) [address] [address] Immature Grans Absolute 0.36 K/uL High <=0.[address] [facility] Comment on above: Performed By: #### L [id number] #### [facility] (DEFAULT) [address] [address] Lymphocytes (Bld) [#/Vol] 0.40 10*3/uL Low 1.16-3.[address] [facility] Comment on above: Performed By: #### L [id number] #### [facility] (DEFAULT) [address] [address] Lymphocytes/100 WBC (Bld) 5.2 % Normal [facility] Comment on above: Performed By: #### L [id number] #### [facility] (DEFAULT) [address] [address] MCV (RBC) [Entitic vol] 96.2 fL Normal 79.6-97.[address] [facility] Comment on above: Performed By: #### L [id number] #### [facility] (DEFAULT) [address] [address] Mean Cell Hgb 30.6 pg Normal 25.9-33.[address] [facility] Comment on above: Performed By: #### L [id number] #### [facility] (DEFAULT) [address] [address] Mean Cell Hgb Conc 31.8 g/dL Normal 31.4-35.9 [facility] Comment on above: Performed By: #### L [id number] #### [facility] (DEFAULT) [address] [address] Monocytes (Bld) [#/Vol] 0.09 10*3/uL Low 0.22-0.[address] [facility] Comment on above: Performed By: #### L [id number] #### [facility] (DEFAULT) [address] [address] Monocytes/100 WBC (Bld) 1.2 % Normal [facility] Comment on above: Performed By: #### L [id number] #### [facility] (DEFAULT) [address] [address] Nucleated RBC 0.0 /100 WBC Normal <=0.2 [facility] Comment on above: Performed By: #### L [id number] #### [facility] (DEFAULT) [address] [address] Platelet mean volume (Bld) [Entitic vol] 9.5 fL Normal 8.5-12.[address] [facility] Comment on above: Performed By: #### L [id number] #### [facility] (DEFAULT) [address] [address] Platelets (Bld) [#/Vol] 199 10*3/uL Normal 150-[address] [facility] Comment on above: Performed By: #### L [id number] #### [facility] (DEFAULT) [address] [place] [address] RBC (Bld) [#/Vol] 4.77 10*6/uL Normal 3.91-5.[address] [facility] Comment on above: Performed By: #### L [id number] #### [facility] (DEFAULT) [address] [place] [address] RBC Distribution 13.6 % Normal 10.8-14.9 [facility] Comment on above: Performed By: #### L [id number] #### [facility] (DEFAULT) [address] [place] [address] Segs + Bands Auto 88.2 % Normal [facility] Comment on above: Performed By: #### L [id number] #### [facility] (DEFAULT) [address] [place] [address] Segs + Bands,Absolute Auto 6.75 K/uL Normal 1.64-7.[address] [facility] Comment on above: Performed By: #### L [id number] #### [facility] (DEFAULT) [address] [place] [address] WBC (Bld) [#/Vol] 7.65 10*3/uL Normal 3.99-11.[address] [facility] Comment on above: Performed By: #### L [id number] #### [facility] (DEFAULT) [address] [place] [address] Basophils (Bld) [#/Vol] 0.05 10*3/uL 0.00 - 0.15 K/uL [facility] Basophils/100 WBC (Bld) 0.7 % [facility] Differential cell count method Nom (Bld) Electronic Differential [facility] Eosinophils (Bld) [#/Vol] K/uL 0.00 - 0.42 K/uL [facility] Eosinophils/100 WBC (Bld) 0.0 % [facility] Erythrocyte distribution width (RBC) [Ratio] 13.6 % 10.8 - 14.9 % [facility] Hematocrit (Bld) [Volume fraction] 45.9 % High 34.9 - 44.3 % [facility] Hemoglobin (Bld) [Mass/Vol] 14.6 g/dL 11.4 - 15.2 g/dL [facility] Immature granulocytes (Bld) [#/Vol] 0.36 10*3/uL High NINF - 0.08 K/uL [facility] Immature granulocytes/100 WBC (Bld) 4.7 % [facility] Interpretation and review of laboratory results Abnormal [facility] Lymphocytes (Bld) [#/Vol] 0.40 10*3/uL Low 1.16 - 3.51 K/uL [facility] Lymphocytes/100 WBC (Bld) 5.2 % [facility] MCH (RBC) [Entitic mass] 30.6 pg 25.9 - 33.9 pg [facility] MCHC (RBC) [Mass/Vol] 31.8 g/dL 31.4 - 35.9 g/dL [facility] MCV (RBC) [Entitic vol] 96.2 fL 79.6 - 97.7 fL [facility] Monocytes (Bld) [#/Vol] 0.09 10*3/uL Low 0.22 - 0.87 K/uL [facility] Monocytes/100 WBC (Bld) 1.2 % [facility] Neutrophils (Bld) [#/Vol] 6.75 10*3/uL 1.64 - 7.28 K/uL [facility] Nucleated RBC/100 WBC (Bld) [Ratio] 0.0 % [facility] Platelet mean volume (Bld) [Entitic vol] 9.5 fL 8.5 - 12.2 fL [facility] Platelets (Bld) [#/Vol] 199 10*3/uL 150 - 393 K/uL [facility] RBC (Bld) [#/Vol] 4.77 10*6/uL [facility] Segmented neutrophils/100 WBC (Bld) 88.2 % [facility] WBC (Bld) [#/Vol] 7.65 10*3/uL 3.99 - 11.19 K/uL [facility] CHM 7 - EDon 10-14-2022 Anion gap [Moles/Vol] 15 mmol/L Normal 7-17 [facility] Comment on above: Performed By: #### Krista MarcD #### [facility] (DEFAULT) [address] [place] [address] Chloride [Moles/Vol] 103 mmol/L Normal 98-[address] [facility] Comment on above: Performed By: #### Krista 7ED #### [facility] (DEFAULT) [address] [place] [address] CO2 [Moles/Vol] 31 mmol/L Normal 21-31 [facility] Comment on above: Performed By: #### Krista 7ED #### [facility] (DEFAULT) [address] [place] [address] Creatinine [Mass/Vol] 0.45 mg/dL Low 0.50-1.20 [facility] Comment on above: Performed By: #### Krista 7ED #### [facility] (DEFAULT) [address] [place] [address] eGFR, CKD-EPI, Female > Normal >=60 [facility] Comment on above: Result Comment: Repo rted eGFR is based on the CKD-EPI 2020 equation using creatinine, age, and sex. Performed By: #### C 7ED #### [facility] (DEFAULT) [address] [place] [address] Glucose [Mass/Vol] 149 mg/dL High 70-99 [facility] Comment on above: Performed By: #### Krista 7ED #### [facility] (DEFAULT) [address] [place] [address] Osmolality [Osmolality] 306 mosm/kg High 278-[address] [facility] Comment on above: Performed By: #### Krista 7ED #### [facility] (DEFAULT) [address] [place] [address] Potassium [Moles/Vol] 3.7 mmol/L Normal 3.5-5.0 [facility] Comment on above: Performed By: #### C 7ED #### [facility] (DEFAULT) [address] [place] [address] Sodium [Moles/Vol] 145 mmol/L Normal 135-145 [facility] Comment on above: Performed By: #### C 7ED #### [facility] (DEFAULT) [address] [place] [address] Urea nitrogen [Mass/Vol] 17 mg/dL Normal 7-[address] [facility] Comment on above: Performed By: #### C 7ED #### [facility] (DEFAULT) [address] [place] [address] Urea nitrogen/Creatinine [Mass ratio] 38 mg/mg Normal [facility] Comment on above: Performed By: #### C 7ED #### [facility] (DEFAULT) [address] [place] [address] Anion gap [Moles/Vol] 15 mmol/L 7 - 17 mmol/L [facility] Chloride [Moles/Vol] 103 mmol/L 98 - 10 8 mmol/L [facility] CO2 [Moles/Vol] 31 mmol/L 21 - 31 mmol/L [facility] Creatinine [Mass/Vol] 0.45 mg/dL Low 0.50 - 1.20 mg/dL [facility] GFR/1.73 sq M.predicted CKD-EPI (S/P/Bld) [Vol rate/Area] - [facility] Comment on above: Reported eGFR is bas ed on the CKD-EPI 2020 equation using creatinine, age, and sex. Glucose [Mass/Vol] 149 mg/dL High 70 - 99 mg/dL [facility] Interpretation and review of laboratory results Abnormal [facility] Osmolality Calc [Osmolality] 306 High [facility] Potassium [Moles/Vol] 3.7 mmol/L 3.5 - 5.0 mmol/L [facility] Sodium [Moles/Vol] 145 mmol/L 135 - 145 mmol/L [facility] Urea nitrogen [Mass/Vol] 17 mg/dL 7 - 25 mg/dL [facility] Urea nitrogen/Creatinine [Mass ratio] 38 mg/mg [facility] CT Cervical spine WO contras ton 10-14-2022 [...] I have reviewed and approved this report. [facility] Radiology Study observation (narrative) [facility] CT SPINE CERVICAL WITHOUT CO NTRASTon 10-14-2022 [...] have reviewed and approved this report. Normal [facility] LACTATE, BLOODon 10-14-2022 Lactate, Blood 2.1 mmol/L High 0.5-1.[address] [facility] Comment on above: Performed By: #### L ACT #### [facility] (DEFAULT) [address] [place] [id number] LACTATE, BLOODOrdered By: Mehran Castano on 10-14-2022 Interpretation and review of laboratory results Abnormal [facility] Lactate [Moles/Vol] 2.1 mmol/L High 0.5 - 1. 6 mmol/L [facility] No Panel Informationon 10-14 [facility] PT,INR,PTTon 10-14-2022 aPTT Coag (Bld) [Time] 20.9 s Low 24.0-34.[address] [facility] Comment on above: Result Comment: Spec imen integrity checked. Performed By: #### P TPTT #### [facility] (DEFAULT) [address] [place] [id number] INR Coag (PPP) [Relative time] 0.9 {INR} Normal 0.9-1.[address] [facility] Comment on above: Performed By: #### P TPTT #### [facility] (DEFAULT) [address] [place] [id number] PT Coag (PPP) [Time] 12.1 s Normal 11.9-14.[address] [facility] Comment on above: Performed By: #### P TPTT #### [facility] (DEFAULT) [address] [place] [phone] PT,INR,PTTOrdered By: Saloni Lara on 10-14-2022 aPTT Coag (PPP) [Time] 20.9 s Low [facility] Comment on above: Specimen integrity c hecked. INR Coag (Bld) [Relative time] 0.9 {INR} 0.9 - 1.1 [facility] Interpretation and review of laboratory results Abnormal [facility] PT Coag (PPP) [Time] 12.1 s [facility] Portable XR Chest Viewson IMPRESSION: 1. Multifocal [...] I have reviewed and approved this report. [facility] Portable XR Chest ViewsOrder ed By: Jorge Dowd on 10-14-2022 [facility] Work Phone: SCREEN: MRSA/MSSAOrdered By: Leidy Burk on 10-14-2022 Interpretation and review of laboratory results Normal [facility] Methicillin Resistant S. Aureus By Pcr Negative Negative [facility] Staphylococcus Aureus By Pcr Negative Negative [facility] This test was perfor med using [...] by the Clinical Microbiology Laboratory at [facility]. It has not been cleared or approved by the FDA.The laboratory is regulated under CLIA as qualified to perform high-complexity testing. This test is used for clinical purposes. It should not be regarded as investigational or for research. [facility] SCREEN: MRSA/MSSAon 10-15-19 23 Methicillin Resistant S. Aureus By Pcr Negative Normal Negative [facility] Comment on above: Order Comment: Colle ct [...] by the Clinical Microbiology Laboratory at [facility]. It has not been cleared or approved by the FDA.The laboratory is regulated under CLIA as qualified to perform high-complexity testing. This test is used for clinical purposes. It should not be regarded as investigational or for research. Performed By: #### C 7ED #### [facility] (DEFAULT) [address] [place] [address] Staphylococcus Aureus By Pcr Negative Normal Negative [facility] Comment on above: Order Comment: Colle ct [...] by the Clinical Microbiology Laboratory at [facility]. It has not been cleared or approved by the FDA.The laboratory is regulated under CLIA as qualified to perform high-complexity testing. This test is used for clinical purposes. It should not be regarded as investigational or for research. Performed By: #### C 7ED #### [facility] (DEFAULT) [address] [place] [phone] TYPE AND SCREENon 10-14-2022 ABO/RH(D) TYPE Positive Normal [facility] Comment on above: Performed By: #### X M #### [facility] (DEFAULT) [address] [place] [address]333 ABO/RH(D) TYPE Positive [facility] URINALYSIS REFLEX TO CULTURE PERFORMABLEon 10-14-2022 Appearance (U) Clear Normal Clear [facility] Comment on above: Performed By: #### U [id number] #### [facility] (DEFAULT) [address] [place] [address] 23064 Bacteria PRESENT Abnormal ABSENT [facility] Comment on above: Performed By: #### U [id number] #### [facility] (DEFAULT) [address] [place] [address]278 Blood Urine Negative Normal Negative [facility] Comment on above: Performed By: #### U [id number] #### [facility] (DEFAULT) [address] [place] [address]77 Color (U) Yellow Normal Yellow [facility] Comment on above: Performed By: #### U [id number] #### [facility] (DEFAULT) [address] [place] [address] Glucose Ql (U) Negative Normal Negative [facility] Comment on above: Performed By: #### U [id number] #### [facility] (DEFAULT) [address] [place] [phone] Hyaline casts LM Ql (Urine sed) 0 - 2 Abnormal (none) [facility] Comment on above: Performed By: #### U [id number] #### [facility] (DEFAULT) [address] [place] [address]652 Ketones Ql (U) Negative Normal Negative [facility] Comment on above: Performed By: #### U [id number] #### [facility] (DEFAULT) [address] [place] [address]65 Leukocyte esterase Test strip Ql (U) Trace Abnormal Negative [facility] Comment on above: Performed By: #### U [id number] #### [facility] (DEFAULT) [address] [place] [address]229 Nitrites Urine Positive Abnormal Negative [facility] Comment on above: Performed By: #### U [id number] #### [facility] (DEFAULT) [address] [address] pH (U) 7.0 [pH] Normal 5.0-7.[address] [facility] Comment on above: Performed By: #### U [id number] #### [facility] (DEFAULT) [address] [address] Protein Urine Negative Normal Negative [facility] Comment on above: Performed By: #### U [id number] #### [facility] (DEFAULT) [address] [address] RBC Urine 0-2 Normal 0-[address] [facility] Comment on above: Performed By: #### U [id number] #### [facility] (DEFAULT) [address] [address] Specific [place] Urine 1.010 Normal 1.001-1.[address] [facility] Comment on above: Performed By: #### U [id number] #### [facility] (DEFAULT) [address] [address] Squamous/Epithelial Cells 0-2/hpf Normal 0-2/hpf, 3-5/hpf = 1+ [facility] Comment on above: Performed By: #### U [id number] #### U [facility] (DEFAULT) [address] [address] Urobilinogen Urine 0.2 E.U./dL Normal 0.2 E.U/d L, 1.0 E.U/dL [facility] Comment on above: Performed By: #### U [id number] #### [facility] (DEFAULT) [address] [place] [address] WBC Urine 0 - 5 Normal 0 - [address] [facility] Comment on above: Performed By: #### U [id number] #### [facility] (DEFAULT) [address] [place] [address] Yeast/Fungi PRESENT Abnormal ABSENT [facility] Comment on above: Performed By: #### U [id number] #### [facility] (DEFAULT) [address] [place] [address] Appearance (U) Clear Clear [facility] Bacteria LM Ql (Urine sed) PRESENT Abnormal ABSENT [facility] Color (U) Yellow Yellow [facility] Epithelial cells.squamous LM Ql (Urine sed) 0-2/hpf 0-2/hpf, 3-5/hpf = 1+ [facility] Glucose Test strip (U) [Mass/Vol] Negative Negative [facility] Hyaline casts (Urine sed) [#/Area] 0 - 2 Abnormal (none) /LPF [facility] Interpretation and review of laboratory results Abnormal [facility] Ketones (U) [Mass/Vol] Negative Negative [facility] Leukocyte esterase Test strip Ql (U) Trace Abnormal Negative [facility] Nitrite Ql (U) Positive Abnormal Negative [facility] pH (U) 7.0 [pH] 5.0 - 7.0 [facility] (U) [Mass/Vol] Negative [facility] RBC (U[facility] [#/Vol] [facility] RBC LM.HPF (Urine sed) [#/Area] 0-2 [facility] Specific gravity (U) [Rel density] 1.010 1.001 - 1.035 [facility] Urobilinogen (U) [Mass/Vol] 0.2 E.U./dL 0.2 E.U/dL, 1.0 E.U/dL [facility] WBC LM.HPF (Urine sed) [#/Area] 0 - 5 [facility] Yeast/Fungi PRESENT Abnormal ABSENT [facility] XR CHEST PORTABLEon 10-15-19 XR CHEST PORTABLE [...] have reviewed and approved this report. Normal [facility] XR Cervical spine 4 Viewson 10-14-2022 IMPRESSION: [...] I have reviewed and approved this report. [facility] XR SPINE CERVICAL 4 VIEWSon 10-14-2022 XR [...] have reviewed and approved this report. Normal [facility] Basic Metabolic Profon 10-13 Anion gap [Moles/Vol] 11 mmol/L Normal 9-17 [facility] Comment on above: Performed By: #### C P, CBC #### [facility] [address] [place] [address] Blood Bank Booking Clerk: Collette Willard MD BUN/CRE Ratio 43 High 9-20 [facility] Comment on above: Performed By: #### C P, CBC #### [facility] [address] [place] [address] Blood Bank Booking Clerk: Collette Willard MD Calcium [Mass/Vol] 10.3 mg/dL Normal 8.6-10.4 [facility] Comment on above: Performed By: #### C P, CBC #### [facility] [address] [place] [address] Blood Bank Booking Clerk: Collette Willard MD Chloride [Moles/Vol] 103 mmol/L Normal 98-107 [facility] Comment on above: Performed By: #### C P, CBC #### [facility] [address] [place] [address] Blood Bank Booking Clerk: Collette Willard MD CO2 [Moles/Vol] 31 mmol/L Normal 20-31 [facility] Comment on above: Performed By: #### C P, CBC #### [facility] [address] [place] [address] Blood Bank Booking Clerk: Collette Willard MD Creatinine [Mass/Vol] 0.3 mg/dL Low 0.5-0.9 [facility] Comment on above: Performed By: #### C P, CBC #### [facility] [address] [place] [address] Blood Bank Booking Clerk: Collette Willard MD GFR/1.73 sq M.predicted among non-blacks MDRD (S/P/Bld) [Vol rate/Area] mL/min/{1.73_m2} Normal >60 [facility] Comment on above: Result Comment: These [...] #### C P, CBC #### [facility] [address] [place] [address] Blood Bank Booking Clerk: Collette Willard MD Glucose [Mass/Vol] 80 mg/dL Normal 70-99 [facility] Comment on above: Performed By: #### C P, CBC #### [facility] [address] [place] [address] Blood Bank Booking Clerk: Collette Willard MD Potassium [Moles/Vol] 3.4 mmol/L Low 3.7-5.3 [facility] Comment on above: Performed By: #### C P, CBC #### [facility] [address] [place] [address] Blood Bank Booking Clerk: Collette Willard MD Sodium [Moles/Vol] 145 mmol/L High 135-144 [facility] Comment on above: Performed By: #### C P, CBC #### [facility] [address] [place], [place] [id number] Blood Bank Booking Clerk: Collette Willard MD Urea nitrogen [Mass/Vol] 13 mg/dL Normal 8-23 [facility] Comment on above: Performed By: #### C P, CBC #### [facility] [address] [place] [address] Blood Bank Booking Clerk: Collette Willard MD CBC with Diffon 10-13-2022 Abs. Basophil 0.00 k/uL Normal 0.0-0.2 [facility] Comment on above: Performed By: #### C P, CBC #### [facility] [address] [place] [address] [place], [place] [phone] Blood Bank Booking Clerk: Collette Willard MD Abs.Imm.Granulocyte 0.08 k/uL Normal 0.00-0.30 [facility] Comment on above: Performed By: #### C P, CBC #### [address] [place] [address] Blood Bank Booking Clerk: Collette Willard MD Abs.Neutrophil (Seg) 6.32 k/uL Normal 1.50-8.10 [facility] Comment on above: Performed By: #### C P, CBC #### [facility] [address] [place], [place] [id number] Blood Bank Booking Clerk: Collette Willard MD Basophils/100 WBC (Bld) 0 % Normal 0-2 [facility] Comment on above: Performed By: #### C P, CBC #### [facility] [address] [place] [address] Blood Bank Booking Clerk: Collette Willard MD Eosinophils (Bld) [#/Vol] 0.23 10*3/uL Normal 0.00-0.44 [facility] Comment on above: Performed By: #### C P, CBC #### [facility] [address] [place], [facility] Blood Bank Booking Clerk: Collette Willard MD Eosinophils/100 WBC (Bld) 3 % Normal 1-4 [facility] Comment on above: Performed By: #### C P, CBC #### [facility] [address] [place], [place] [address] Blood Bank Booking Clerk: Collette Willard MD Immature granulocytes/100 WBC (Bld) 1 % High 0 [facility] Comment on above: Performed By: #### C P, CBC #### [facility] [address] [place] [id number] Blood Bank Booking Clerk: Collette Willard MD Lymphocytes (Bld) [#/Vol] 0.86 10*3/uL Low 1.10-3.70 [facility] Comment on above: Performed By: #### C P, CBC #### [facility] [address] [place], [place] [address] Blood Bank Booking Clerk: Collette Willard MD Lymphocytes/100 WBC (Bld) 11 % Low 24-43 [facility] Comment on above: Performed By: #### C P, CBC #### [facility] [address] [place] [address] Blood Bank Booking Clerk: Collette Willard MD Monocytes (Bld) [#/Vol] 0.31 10*3/uL Normal 0.10-1.20 [facility] Comment on above: Performed By: #### C P, CBC #### [facility] [address] [place] [id number] Blood Bank Booking Clerk: Collette Willard MD Monocytes/100 WBC (Bld) 4 % Normal 3-12 [facility] Comment on above: Performed By: #### C P, CBC #### [facility] [address] [place], [facility] Blood Bank Booking Clerk: Collette Willard MD Morphology Demetrio (Bld) [Interp] Normal Normal [facility] Comment on above: Performed By: #### C P, CBC #### [facility] [address] [place], [place] [id number] Blood Bank Booking Clerk: Collette Willard MD Neutrophil (Seg) 81 % High 36-65 [facility] Comment on above: Performed By: #### C P, CBC #### [facility] [address] [place], [place] [phone] Blood Bank Booking Clerk: Collette Willard MD Erythrocyte distribution width (RBC) [Ratio] 13.7 % Normal 11.8-14.4 [facility] Comment on above: Performed By: #### C P, CBC #### [address] [place] [address] Blood Bank Booking Clerk: Collette Willard MD Hematocrit (Bld) [Volume fraction] 43.4 % Normal 36.3-47.1 [facility] Comment on above: Performed By: #### C P, CBC #### [address] [place] [address] Blood Bank Booking Clerk: Collette Willard MD Hemoglobin (Bld) [Mass/Vol] 13.5 g/dL Normal 11.9-15.1 [facility] Comment on above: Performed By: #### C P, CBC #### [address] [place] [address] Blood Bank Booking Clerk: Collette Willard MD MCH (RBC) [Entitic mass] 30.4 pg Normal 25.2-33.5 [facility] Comment on above: Performed By: #### C P, CBC #### [address] [place] [address] Blood Bank Booking Clerk: Collette Willard MD MCHC (RBC) [Mass/Vol] 31.1 g/dL Normal 28.4-34.8 [facility] Comment on above: Performed By: #### C P, CBC #### [facility] [address] [place] [address] [address], [place] [address] Blood Bank Booking Clerk: Collette Willard MD MCV (RBC) [Entitic vol] 97.7 fL Normal 82.6-102.9 [facility] Comment on above: Performed By: #### C P, CBC #### [address] [place], [place] [address] Blood Bank Booking Clerk: Collette Willard MD NRBC Automated 0.0 per 100 WBC Normal 0.0 [facility] Comment on above: Performed By: #### C P, CBC #### [address] [place], [facility] Blood Bank Booking Clerk: Collette Willard MD Platelet mean volume (Bld) [Entitic vol] 9.3 fL Normal 8.1-13.5 [facility] Comment on above: Performed By: #### C P, CBC #### [address] [place], [facility] Blood Bank Booking Clerk: Collette Willard MD Platelets (Bld) [#/Vol] 184 10*3/uL Normal 138-453 [facility] Comment on above: Performed By: #### C P, CBC #### [address] [place], [place] [address] Blood Bank Booking Clerk: Collette Willard MD RBC (Bld) [#/Vol] 4.44 10*6/uL Normal 3.95-5.11 [facility] Comment on above: Performed By: #### C P, CBC #### [address] [place] [address] Blood Bank Booking Clerk: Collette Willard MD WBC (Bld) [#/Vol] 7.8 10*3/uL Normal 3.5-11.3 [facility] Comment on above: Performed By: #### C P, CBC #### [facility] [address] [place], [place] [address] Blood Bank Booking Clerk: Collette Willard MD Abs. Basophil 0.00 k/uL Normal 0.0-0.2 [facility] Comment on above: Performed By: #### B C #### [address] [place], [place] [address] Blood Bank Booking Clerk: Collette Willard MD Abs.Imm.Granulocyte 0.50 k/uL High 0.00-0.30 [facility] Comment on above: Performed By: #### B C #### [address] [place], [place] [address] Blood Bank Booking Clerk: Collette Willard MD Abs.Neutrophil (Seg) 6.56 k/uL Normal 1.50-8.10 [facility] Comment on above: Performed By: #### B C #### [address] [place], [facility] Blood Bank Booking Clerk: Collette Willard MD Basophils/100 WBC (Bld) 0 % Normal 0-2 [facility] Comment on above: Performed By: #### B C #### [address] [place], [place] [address] Blood Bank Booking Clerk: Collette Willard MD Eosinophils (Bld) [#/Vol] 0.00 10*3/uL Normal 0.00-0.44 [facility] Comment on above: Performed By: #### B C #### [address] [place], [facility] Blood Bank Booking Clerk: Collette Willard MD Eosinophils/100 WBC (Bld) 0 % Low 1-4 [facility] Comment on above: Performed By: #### B C #### [address] [place], [facility] Blood Bank Booking Clerk: Collette Willard MD Immature granulocytes/100 WBC (Bld) 6 % High 0 [facility] Comment on above: Performed By: #### B C #### [facility] [address] [place], [place] [id number] Blood Bank Booking Clerk: Collette Willard MD Lymphocytes (Bld) [#/Vol] 0.91 10*3/uL Low 1.10-3.70 [facility] Comment on above: Performed By: #### B C #### [facility] [address] [place], [place] [id number] Blood Bank Booking Clerk: Collette Willard MD Lymphocytes/100 WBC (Bld) 11 % Low 24-43 [facility] Comment on above: Performed By: #### B C #### [facility] [address] [place], [place] [phone] Blood Bank Booking Clerk: Collette Willard MD Monocytes (Bld) [#/Vol] 0.33 10*3/uL Normal 0.10-1.20 [facility] Comment on above: Performed By: #### B C #### [facility] [address] [place], [place] [phone] Blood Bank Booking Clerk: Collette Willard MD Monocytes/100 WBC (Bld) 4 % Normal 3-12 [facility] Comment on above: Performed By: #### B C #### [facility] [address] [place], [place] [phone] Blood Bank Booking Clerk: Collette Willard MD Morphology Demetrio (Bld) [Interp] Normal Normal [facility] Comment on above: Performed By: #### B C #### [facility] [address] [place], [place] [phone] Blood Bank Booking Clerk: Collette Willard MD Neutrophil (Seg) 79 % High 36-65 [facility] Comment on above: Performed By: #### B C #### [facility] [address] [place], [place] [phone] Blood Bank Booking Clerk: Collette Willard MD Erythrocyte distribution width (RBC) [Ratio] 13.8 % Normal 11.8-14.4 [facility] Comment on above: Performed By: #### B C #### [address] [place], [place] [phone] Blood Bank Booking Clerk: Collette Willard MD Hematocrit (Bld) [Volume fraction] 42.1 % Normal 36.3-47.1 [facility] Comment on above: Performed By: #### B C #### [address] [place], [place] [phone] Blood Bank Booking Clerk: Collette Willard MD Hemoglobin (Bld) [Mass/Vol] 12.9 g/dL Normal 11.9-15.1 [facility] Comment on above: Performed By: #### B C #### [address] [place], [place] 5327783 Blood Bank Booking Clerk: Collette Willard MD MCH (RBC) [Entitic mass] 30.3 pg Normal 25.2-33.5 [facility] Comment on above: Performed By: #### B C #### [address] [place], [place] 5000483 Blood Bank Booking Clerk: Collette Willard MD MCHC (RBC) [Mass/Vol] 30.6 g/dL Normal 28.4-34.8 [facility] Comment on above: Performed By: #### B C #### [address] [place], [place] 8706483 Blood Bank Booking Clerk: Collette Willard MD MCV (RBC) [Entitic vol] 98.8 fL Normal 82.6-102.9 [facility] Comment on above: Performed By: #### B C #### [address] [place], [place] 1004183 Blood Bank Booking Clerk: Collette Willard MD NRBC Automated 0.0 per 100 WBC Normal 0.0 [facility] Comment on above: Performed By: #### B C #### [facility] [address] [place], [place] [address] Blood Bank Booking Clerk: Collette Willard MD Platelet mean volume (Bld) [Entitic vol] 9.3 fL Normal 8.1-13.5 [facility] Comment on above: Performed By: #### B C #### [facility] [address] [place], [facility] Blood Bank Booking Clerk: Collette Willard MD Platelets (Bld) [#/Vol] 198 10*3/uL Normal 138-453 [facility] Comment on above: Performed By: #### B C #### [address] [place], [facility] Blood Bank Booking Clerk: Collette Willard MD RBC (Bld) [#/Vol] 4.26 10*6/uL Normal 3.95-5.11 [facility] Comment on above: Performed By: #### B C #### [address] [place], [place] [phone] Blood Bank Booking Clerk: Collette Willard MD WBC (Bld) [#/Vol] 8.3 10*3/uL Normal 3.5-11.3 [facility] Comment on above: Performed By: #### B C #### [address] [place], [facility] Blood Bank Booking Clerk: Collette Willard MD Comp Metabolic Profon 2022 Albumin [Mass/Vol] 3.6 g/dL Normal 3.5-5.2 [facility] Comment on above: Performed By: #### C DP, CP #### [address] [place] [address] Blood Bank Booking Clerk: Collette Willard MD Albumin/Glob Ratio 1.4 Normal 1.0-2.5 [facility] Comment on above: Performed By: #### C DP, CP #### [facility] [address] [place], [place] [phone] Blood Bank Booking Clerk: Collette Willard MD Alkaline Phos 148 U/L High 35-104 [facility] Comment on above: Performed By: #### C DP, CP #### [facility] [address] [place], [place] [phone] Blood Bank Booking Clerk: Collette Willard MD ALT [Catalytic activity/Vol] 56 U/L High 5-33 [facility] Comment on above: Performed By: #### C DP, CP #### [facility] [address] [place], [place] [phone] Blood Bank Booking Clerk: Collette Willard MD Anion gap [Moles/Vol] 10 mmol/L Normal 9-17 [facility] Comment on above: Performed By: #### C DP, CP #### [facility] [address] [place], [place] [phone] Blood Bank Booking Clerk: Collette Willard MD AST [Catalytic activity/Vol] 39 U/L High <32 [facility] Comment on above: Performed By: #### C DP, CP #### [facility] [address] Dr. [place], [place] [id number] Blood Bank Booking Clerk: Collette Willard MD Bilirubin [Mass/Vol] 0.3 mg/dL Normal 0.3-1.2 [facility] Comment on above: Performed By: #### C DP, CP #### [facility] [address] [place], [place] [id number] Blood Bank Booking Clerk: Collette Willard MD BUN/CRE Ratio 47 High 9-20 [facility] Comment on above: Performed By: #### C DP, CP #### [facility] [address] [place], [place] [id number] Blood Bank Booking Clerk: Collette Willard MD Calcium [Mass/Vol] 10.3 mg/dL Normal 8.6-10.4 [facility] Comment on above: Performed By: #### C DP, CP #### [facility] [address] [place], [place] 8287683 Blood Bank Booking Clerk: Collette Willard MD Chloride [Moles/Vol] 104 mmol/L Normal 98-107 [facility] Comment on above: Performed By: #### C DP, CP #### [facility] [address] [place], [place] 9487083 Blood Bank Booking Clerk: Collette Willard MD CO2 [Moles/Vol] 30 mmol/L Normal 20-31 [facility] Comment on above: Performed By: #### C DP, CP #### [facility] [address] [place], [place] 6896483 Blood Bank Booking Clerk: Collette Willard MD Creatinine [Mass/Vol] 0.3 mg/dL Low 0.5-0.9 [facility] Comment on above: Performed By: #### C DP, CP #### [facility] [address] [place], [place] 6622583 Blood Bank Booking Clerk: Collette Willard MD GFR/1.73 sq M.predicted among non-blacks MDRD (S/P/Bld) [Vol rate/Area] mL/min/{1.73_m2} Normal >60 [facility] Comment on above: Result Comment: These [...] Performed By: #### C DP, CP #### [facility] [address] [place] [address] Blood Bank Booking Clerk: Collette Willard MD Glucose [Mass/Vol] 108 mg/dL High 70-99 [facility] Comment on above: Performed By: #### C DP, CP #### [facility] [address] [place] [address] Blood Bank Booking Clerk: Collette Willard MD Potassium [Moles/Vol] 3.6 mmol/L Low 3.7-5.3 [facility] Comment on above: Performed By: #### C DP, CP #### [facility] [address] [place] [address] [place]. [place], [place] [id number] Blood Bank Booking Clerk: Collette Willard MD Protein [Mass/Vol] 6.2 g/dL Low 6.4-8.3 [facility] Comment on above: Performed By: #### C DP, CP #### [address] [place] [address] Blood Bank Booking Clerk: Collette Willard MD Sodium [Moles/Vol] 144 mmol/L Normal 135-144 [facility] Comment on above: Performed By: #### C DP, CP #### [address] [place], [place] [id number] Blood Bank Booking Clerk: Collette Willard MD Urea nitrogen [Mass/Vol] 14 mg/dL Normal 8-23 [facility] Comment on above: Performed By: #### C DP, CP #### [address] [place] [address] Blood Bank Booking Clerk: Collette Willard MD MRI LUMBAR SPINE WO [...] Kendell Echols MD 10/13/22 Final result Normal [facility] MRI THORACIC SPINE WO CONTRA STon [...] Kendell Echols MD 10/13/22 Final result Normal [facility] PTon 10-13-2022 INR Coag (PPP) [Relative time] 0.9 {INR} Normal [facility] Comment on above: Result Comment: Therapeutic Range: Moderate Anticoagulant Intensity: INR = 2.0-3.0 High Anticoagulant Intensity: INR = 2.5-3.5 Performed By: #### C P, CBC #### [facility] [address] [place] [address] Blood Bank Booking Clerk: Collette Willard MD PT Coag (PPP) [Time] 12.1 s Normal 11.9-14.8 [facility] Comment on above: Performed By: #### C P, CBC #### [address] [place] [address] Blood Bank Booking Clerk: Collette Willard MD Portable XR Chest Viewson Radiology Study observation (narrative) [facility] XR Cervical spine 4 Viewson 10-13-2022 Radiology Study observation (narrative) [facility] CBCon 10-06-2022 Erythrocyte distribution width (RBC) [Ratio] 13.9 % Normal 11.8-14.4 [facility] Comment on above: Performed By: #### C P, CBC #### [address] [place] [address] Blood Bank Booking Clerk: Collette Willard MD Hematocrit (Bld) [Volume fraction] 42.2 % Normal 36.3-47.1 [facility] Comment on above: Performed By: #### C P, CBC #### [facility] [address] [place] [address] [place] [address] Blood Bank Booking Clerk: Collette Willard MD Hemoglobin (Bld) [Mass/Vol] 13.3 g/dL Normal 11.9-15.1 [facility] Comment on above: Performed By: #### C P, CBC #### [facility] [address] [place] [address] Blood Bank Booking Clerk: Collette Willard MD MCH (RBC) [Entitic mass] 30.8 pg Normal 25.2-33.5 [facility] Comment on above: Performed By: #### C P, CBC #### [address] [place], [place] 8674[address] Blood Bank Booking Clerk: Collette Willard MD MCHC (RBC) [Mass/Vol] 31.5 g/dL Normal 28.4-34.8 [facility] Comment on above: Performed By: #### C P, CBC #### [address] [place] [id number] Blood Bank Booking Clerk: Collette Willard MD MCV (RBC) [Entitic vol] 97.7 fL Normal 82.6-102.9 [facility] Comment on above: Performed By: #### C P, CBC #### [address] [place] [id number] Blood Bank Booking Clerk: Collette Willard MD NRBC Automated 0.0 per 100 WBC Normal 0.0 [facility] Comment on above: Performed By: #### C P, CBC #### [address] [place], [facility]83 Blood Bank Booking Clerk: Collette Willard MD Platelet mean volume (Bld) [Entitic vol] 10.8 fL Normal 8.1-13.5 [facility] Comment on above: Performed By: #### C P, CBC #### [address] [place], [facility]83 Blood Bank Booking Clerk: Collette Willard MD Platelets (Bld) [#/Vol] 133 10*3/uL Low 138-453 [facility] Comment on above: Performed By: #### C P, CBC #### [address] [place] [address] Blood Bank Booking Clerk: Collette Willard MD RBC (Bld) [#/Vol] 4.32 10*6/uL Normal 3.95-5.11 [facility] Comment on above: Performed By: #### C P, CBC #### [facility] [address] [place], [place] [id number] Blood Bank Booking Clerk: Collette Willard MD WBC (Bld) [#/Vol] 14.9 10*3/uL High 3.5-11.3 [facility] Comment on above: Performed By: #### C P, CBC #### [facility] [address] [place], [place] 7485583 Blood Bank Booking Clerk: Collette Willard MD Comp Metabolic Profon 2022 Albumin [Mass/Vol] 3.4 g/dL Low 3.5-5.2 [facility] Comment on above: Performed By: #### C P, CBC #### [address] [place], [place] 2052983 Blood Bank Booking Clerk: Collette Willard MD Albumin/Glob Ratio 1.2 Normal 1.0-2.5 [facility] Comment on above: Performed By: #### C P, CBC #### [address] [place], [place] 5287583 Blood Bank Booking Clerk: Collette Willard MD Alkaline Phos 135 U/L High 35-104 [facility] Comment on above: Performed By: #### C P, CBC #### [facility] [address] [place] [address] Dr. [place], [place] [id number] Blood Bank Booking Clerk: Collette Willard MD ALT [Catalytic activity/Vol] 62 U/L High 5-33 [facility] Comment on above: Performed By: #### C P, CBC #### [address] [place] [address] Blood Bank Booking Clerk: Collette Willard MD Anion gap [Moles/Vol] 9 mmol/L Normal 9-17 [facility] Comment on above: Performed By: #### C P, CBC #### [facility] [address] [place], [place] [id number] Blood Bank Booking Clerk: Collette Willard MD AST [Catalytic activity/Vol] 41 U/L High <32 [facility] Comment on above: Performed By: #### C P, CBC #### [facility] [address] [place], [place] 9007983 Blood Bank Booking Clerk: Collette Willard MD Bilirubin [Mass/Vol] 0.3 mg/dL Normal 0.3-1.2 [facility] Comment on above: Performed By: #### C P, CBC #### [facility] [address] [place], [place] 4648383 Blood Bank Booking Clerk: Collette Willard MD BUN/CRE Ratio 33 High 9-20 [facility] Comment on above: Performed By: #### C P, CBC #### [facility] [address] [place], [place] 3125883 Blood Bank Booking Clerk: Collette Willard MD Calcium [Mass/Vol] 10.6 mg/dL High 8.6-10.4 [facility] Comment on above: Performed By: #### C P, CBC #### [facility] [address] [place], [place] 9179183 Blood Bank Booking Clerk: Collette Willard MD Chloride [Moles/Vol] 101 mmol/L Normal 98-107 [facility] Comment on above: Performed By: #### C P, CBC #### [facility] [address] [place], [place] 5489283 Blood Bank Booking Clerk: Collette Willard MD CO2 [Moles/Vol] 32 mmol/L High 20-31 [facility] Comment on above: Performed By: #### C P, CBC #### [facility] [address] [place] [address] Blood Bank Booking Clerk: Collette Willard MD Creatinine [Mass/Vol] 0.4 mg/dL Low 0.5-0.9 [facility] Comment on above: Performed By: #### C P, CBC #### [facility] [address] [place] [address] Blood Bank Booking Clerk: Collette Willard MD GFR/1.73 sq M.predicted among non-blacks MDRD (S/P/Bld) [Vol rate/Area] mL/min/{1.73_m2} Normal >60 [facility] Comment on above: Result Comment: These [...] #### C P, CBC #### [facility] [address] [place] [address] Blood Bank Booking Clerk: Collette Willard MD Glucose [Mass/Vol] 97 mg/dL Normal 70-99 [facility] Comment on above: Performed By: #### C P, CBC #### [facility] [address] [place] [address] Blood Bank Booking Clerk: Collette Willard MD Potassium [Moles/Vol] 4.0 mmol/L Normal 3.7-5.3 [facility] Comment on above: Performed By: #### C P, CBC #### [facility] [address] [place] [address] Blood Bank Booking Clerk: Collette Willard MD Protein [Mass/Vol] 6.2 g/dL Low 6.4-8.3 [facility] Comment on above: Performed By: #### C P, CBC #### [facility] [address] [place] [address] Blood Bank Booking Clerk: Collette Willard MD Sodium [Moles/Vol] 142 mmol/L Normal 135-144 [facility] Comment on above: Performed By: #### C P, CBC #### [facility] [address] [place] [address] Blood Bank Booking Clerk: Collette Willard MD Urea nitrogen [Mass/Vol] 13 mg/dL Normal 8- [facility] Comment on above: Performed By: #### C P, CBC #### [facility] [address] [place] [address] Blood Bank Booking Clerk: Collette Willard MD Cult,Bloodon 10-06-2022 Cult,Blood Specimen Description .BLOOD Special Requests 3ML LH Culture NO GROWTH 5 DAYS Report Status FINAL 10/06/2022 [facility] Comment on above: Performed By: #### B C #### [facility] [address] [place] [address] Blood Bank Booking Clerk: Collette Willard MD Cult,Blood Specimen Description .BLOOD Special Requests 3ML R UA Culture NO GROWTH 5 DAYS Report Status FINAL 10/06/2022 [facility] Comment on above: Performed By: #### B C #### [facility] [address] [place] [address] Blood Bank Booking Clerk: Collette Willard MD CBC with Auto Differentialon 10-03-2022 Basophils (Bld) [#/Vol] 0.08 10*3/uL [facility] Basophils/100 WBC (Bld) 1 % 0 - 2 % [facility] Eosinophils (Bld) [#/Vol] [facility] Eosinophils/100 WBC (Bld) 0 % Low 1 - 4 % [facility] Erythrocyte distribution width (RBC) [Ratio] 13.9 % 11.8 - 14.4 % [facility] Hematocrit (Bld) [Volume fraction] 46.6 % 36.3 - 47.1 % [facility] Hemoglobin (Bld) [Mass/Vol] 14.2 g/dL 11.9 - 15.1 g/dL [facility] Immature granulocytes (Bld) [#/Vol] 0.32 10*3/uL High [facility] Immature granulocytes/100 WBC (Bld) 2 % High 0 [facility] Interpretation and review of laboratory results Abnormal [facility] Lymphocytes/100 WBC (Bld) 9 % Low 24 - 43 % [facility] Lymphocytes/100 WBC (Bld) 1.30 % [facility] MCH (RBC) [Entitic mass] 31.1 pg 25.2 - 33.5 pg [facility] MCHC (RBC) [Mass/Vol] 30.5 g/dL 28.4 - 34.8 g/dL [facility] MCV (RBC) [Entitic vol] 102.0 fL 82.6 - 102.9 fL [facility] Monocytes/100 WBC (Bld) 6 % 3 - 12 % [facility] Monocytes/100 WBC (Bld) 0.87 % [facility] Neutrophils/100 WBC (Bld) 82 % High 36 - 65 % [facility] Nucleated RBC/100 WBC (Bld) [Ratio] 0.0 % 0.0 per 100 WBC [facility] Platelet mean volume (Bld) [Entitic vol] 10.5 fL 8.1 - 13.5 fL [facility] Platelets (Bld) [#/Vol] 156 10*3/uL [facility] RBC (Bld) [#/Vol] 4.57 10*6/uL 3.95 - 5.1 1 m/uL [facility] Segmented neutrophils/100 WBC (Bld) 11.43 % High [facility] WBC other (Bld) [#/Vol] 14.0 High [facility] CBC with Diffon 10-03-2022 Abs. Basophil 0.08 k/uL Normal 0.00-0.20 [facility] Comment on above: Performed By: #### B C #### [facility] [address] [place] [address] Blood Bank Booking Clerk: Collette Willard MD Abs. Eosinophil <0.03 Normal 0.00-0.44 [facility] Comment on above: Performed By: #### B C #### [facility] [address] [place], [place] [id number] Blood Bank Booking Clerk: Collette Willard MD Abs.Imm.Granulocyte 0.32 k/uL High 0.00-0.30 [facility] Comment on above: Performed By: #### B C #### [facility] [address] [place], [facility]83 Blood Bank Booking Clerk: Collette Willard MD Abs.Neutrophil (Seg) 11.43 k/uL High 1.50-8.10 [facility] Comment on above: Performed By: #### B C #### [address] [place], [facility]83 Blood Bank Booking Clerk: Collette Willard MD Basophils/100 WBC (Bld) 1 % Normal 0-2 [facility] Comment on above: Performed By: #### B C #### [address] [place], [facility]83 Blood Bank Booking Clerk: Collette Willard MD Eosinophils/100 WBC (Bld) 0 % Low 1-4 [facility] Comment on above: Performed By: #### B C #### [address] [place], [facility]83 Blood Bank Booking Clerk: Collette Willard MD Erythrocyte distribution width (RBC) [Ratio] 13.9 % Normal 11.8-14.4 [facility] Comment on above: Performed By: #### B C #### [facility] [address] [place] [address] Dr. [place], [facility]83 Blood Bank Booking Clerk: Collette Willard MD Hematocrit (Bld) [Volume fraction] 46.6 % Normal 36.3-47.1 [facility] Comment on above: Performed By: #### B C #### [address] [place], [facility]83 Blood Bank Booking Clerk: Collette Willard MD Hemoglobin (Bld) [Mass/Vol] 14.2 g/dL Normal 11.9-15.1 [facility] Comment on above: Performed By: #### B C #### [facility] [address] [place] [address] Blood Bank Booking Clerk: Collette Willard MD Immature granulocytes/100 WBC (Bld) 2 % High 0 [facility] Comment on above: Performed By: #### B C #### [facility] [address] [place], [facility]83 Blood Bank Booking Clerk: Collette Willard MD Lymphocytes (Bld) [#/Vol] 1.30 10*3/uL Normal 1.10-3.70 [facility] Comment on above: Performed By: #### B C #### [address] [place], [facility]83 Blood Bank Booking Clerk: Collette Willard MD Lymphocytes/100 WBC (Bld) 9 % Low 24-43 [facility] Comment on above: Performed By: #### B C #### [address] [place], [place] 5384783 Blood Bank Booking Clerk: Collette Willard MD MCH (RBC) [Entitic mass] 31.1 pg Normal 25.2-33.5 [facility] Comment on above: Performed By: #### B C #### [address] [place], [facility]83 Blood Bank Booking Clerk: Collette Willard MD MCHC (RBC) [Mass/Vol] 30.5 g/dL Normal 28.4-34.8 [facility] Comment on above: Performed By: #### B C #### [address] [place] [address] Blood Bank Booking Clerk: Collette Willard MD MCV (RBC) [Entitic vol] 102.0 fL Normal 82.6-102.9 [facility] Comment on above: Performed By: #### B C #### [facility] [address] [place], [place] 0208383 Blood Bank Booking Clerk: Collette Willard MD Monocytes (Bld) [#/Vol] 0.87 10*3/uL Normal 0.10-1.20 [facility] Comment on above: Performed By: #### B C #### [facility] [address] [place], [place] 8597583 Blood Bank Booking Clerk: Collette Willard MD Monocytes/100 WBC (Bld) 6 % Normal 3-12 [facility] Comment on above: Performed By: #### B C #### [facility] [address] [place], [facility]83 Blood Bank Booking Clerk: Collette Willard MD Neutrophil (Seg) 82 % High 36-65 [facility] Comment on above: Performed By: #### B C #### [facility] [address] [place], [place] 1369683 Blood Bank Booking Clerk: Collette Willard MD NRBC Automated 0.0 per 100 WBC Normal 0.0 [facility] Comment on above: Performed By: #### B C #### [address] [place], [place] 5617783 Blood Bank Booking Clerk: Collette Willard MD Platelet mean volume (Bld) [Entitic vol] 10.5 fL Normal 8.1-13.5 [facility] Comment on above: Performed By: #### B C #### [facility] [address] [place], [place] 7973883 Blood Bank Booking Clerk: Collette Willard MD Platelets (Bld) [#/Vol] 156 10*3/uL Normal 138-453 [facility] Comment on above: Performed By: #### B C #### [facility] [address] [place], [place] 8132283 Blood Bank Booking Clerk: Collette Willard MD RBC (Bld) [#/Vol] 4.57 10*6/uL Normal 3.95-5.11 [facility] Comment on above: Performed By: #### B C #### [facility] [address] [place], [place] 0411583 Blood Bank Booking Clerk: Collette Willard MD WBC (Bld) [#/Vol] 14.0 10*3/uL High 3.5-11.3 [facility] Comment on above: Performed By: #### B C #### [facility] [address] [place] [address] Blood Bank Booking Clerk: Collette Willard MD Cult,Urineon 10-02-2022 Cult,Urine Specimen Description .CLEAN CATCH URINE Culture NO GROWTH Report Status FINAL 10/02/2022 Normal [facility] Comment on above: Performed By: #### B C #### [facility] [address] [place] [address] Blood Bank Booking Clerk: Collette Willard MD Procalcitoninon 10-01-2022 Procalcitonin 0.06 ng/mL Normal <0.09 [facility] Comment on above: Result Comment: Suspected [...] entered into the Change in Procalcitonin Calculator (www.snsdsy-bfy-djaafyraaf.com) to determine the patient's Mortality Risk Prognosis In healthy neonates, plasma Procalcitonin (PCT) concentrations increase gradually after , reaching peak values at about 24 hours of age then decrease to normal values below 0.5 ng/mL by 48-72 hours of age. Performed By: #### P RCAL #### [facility] [address] [id number] Blood Bank Booking Clerk: Chriss Townsend MD Procalcitonin [Mass/Vol] 0.06 ng/mL NINF - 0.09 ng/mL [facility] Comment on above: Suspected Sepsis: <0.50 ng/mL [...] entered into the Change in Procalcitonin Calculator (www.qefcvk-ave-larhopzplg.Opicos) to determine the patient's Mortality Risk Prognosis In healthy neonates, plasma Procalcitonin (PCT) concentrations increase gradually after , reaching peak values at about 24 hours of age then decrease to normal values below 0.5 ng/mL by 48-72 hours of age. [facility] Urinalysison 10-01-2022 Bilirubin Ql (U) Negative NEGATIVE [facility] Clarity (U) Clear Clear [facility] Color (U) Yellow Yellow [facility] Glucose Test strip (U) [Mass/Vol] Negative NEGATIVE [facility] Hemoglobin Auto test strip Ql (U) Negative NEGATIVE [facility] Ketones (U) [Mass/Vol] Negative NEGATIVE [facility] Leukocyte esterase Test strip Ql (U) Negative NEGATIVE [facility] Nitrite Ql (U) Negative NEGATIVE [facility] pH (U) 6.5 [pH] 5.0 - 9.0 [facility] Protein (U) [Mass/Vol] Negative NEGATIVE [facility] Specific gravity (U) [Rel density] 1.010 1.010 - 1.020 [facility] Urobilinogen Qn (U) Normal Normal [facility] Urinalysis, Routineon 2022 Bilirubin, SemiQt,Ur Negative Normal NEG [facility] Comment on above: Performed By: #### B C #### [facility] [address] [place] [address] Blood Bank Booking Clerk: Collette Willard MD Blood, Urine Negative Normal NEG [facility] Comment on above: Performed By: #### B C #### [facility] [address] [place] [address] Blood Bank Booking Clerk: Collette Willard MD Clarity (U) Clear Normal CLEAR [facility] Comment on above: Performed By: #### B C #### [facility] [address] [place] [address] Blood Bank Booking Clerk: Collette Willard MD Color (U) Yellow Normal YEL [facility] Comment on above: Performed By: #### B C #### [facility] [address] [place] [address] Blood Bank Booking Clerk: Collette Willard MD Glucose Ql (U) Negative Normal NEG [facility] Comment on above: Performed By: #### B C #### [facility] [address] [place], [place] 0441083 Blood Bank Booking Clerk: Collette Willard MD Ketones Ql (U) Negative Normal NEG [facility] Comment on above: Performed By: #### B C #### [facility] [address] [place] [address] Blood Bank Booking Clerk: Collette Willard MD Leukocyte esterase Test strip Ql (U) Negative Normal NEG [facility] Comment on above: Performed By: #### B C #### [facility] [address] [place] [address] Blood Bank Booking Clerk: Collette Willard MD Nitrite,Ur Negative Normal NEG [facility] Comment on above: Performed By: #### B C #### [facility] [address] [place] [address] Blood Bank Booking Clerk: Collette Willard MD PH,Ur 6.5 Normal 5.0-9.0 [facility] Comment on above: Performed By: #### B C #### [facility] [address] [place], [place] [address] Blood Bank Booking Clerk: Collette Willard MD Protein Ql (U) Negative Normal NEG [facility] Comment on above: Performed By: #### B C #### [address] [place] [address] Blood Bank Booking Clerk: Collette Willard MD Spec. [place],Ur 1.010 Normal 1.010-1.020 [facility] Comment on above: Performed By: #### B C #### [facility] [address] [place] [address] Dr[address] [place], [place] [address] Blood Bank Booking Clerk: Collette Willard MD Urobilinogen,Ur Normal Normal NORM [facility] Comment on above: Performed By: #### B C #### [address] [place], [place] [address] Blood Bank Booking Clerk: Collette Willard MD CBC with Diffon 09-29-2022 Abs. Basophil 0.04 k/uL Normal 0.00-0.20 [facility] Comment on above: Performed By: #### B C #### [facility] [address] [place] [address] [place] [address] Blood Bank Booking Clerk: Collette Willard MD Abs. Eosinophil <0.03 Normal 0.00-0.44 [facility] Comment on above: Performed By: #### B C #### [facility] [address] [place] [address] [place] [place] [id number] Blood Bank Booking Clerk: Collette Willard MD Abs.Imm.Granulocyte 0.43 k/uL High 0.00-0.30 [facility] Comment on above: Performed By: #### B C #### [facility] [address] [place] [address] [address] [place], [place] [id number] Blood Bank Booking Clerk: Collette Willard MD Abs.Neutrophil (Seg) 17.50 k/uL High 1.50-8.10 [facility] Comment on above: Performed By: #### B C #### [facility] [address] [place] [address] [address] [place], [place] [id number] Blood Bank Booking Clerk: Collette Willard MD Basophils/100 WBC (Bld) 0 % Normal 0-2 [facility] Comment on above: Performed By: #### B C #### [address] [place], [place] 8458483 Blood Bank Booking Clerk: Collette Willard MD Eosinophils/100 WBC (Bld) 0 % Low 1-4 [facility] Comment on above: Performed By: #### B C #### [address] [place], [place] [id number] Blood Bank Booking Clerk: Collette Willard MD Erythrocyte distribution width (RBC) [Ratio] 13.9 % Normal 11.8-14.4 [facility] Comment on above: Performed By: #### B C #### [address] [place], [place] 4406483 Blood Bank Booking Clerk: Collette Willard MD Hematocrit (Bld) [Volume fraction] 44.8 % Normal 36.3-47.1 [facility] Comment on above: Performed By: #### B C #### [address] [place] [address] Blood Bank Booking Clerk: Collette Willard MD Hemoglobin (Bld) [Mass/Vol] 14.3 g/dL Normal 11.9-15.1 [facility] Comment on above: Performed By: #### B C #### [facility] [address] [place], [place] 8201383 Blood Bank Booking Clerk: Collette Willard MD Immature granulocytes/100 WBC (Bld) 2 % High 0 [facility] Comment on above: Performed By: #### B C #### [facility] [address] [place] [address] Dr. [place], [place] [id number] Blood Bank Booking Clerk: Collette Willard MD Lymphocytes (Bld) [#/Vol] 0.80 10*3/uL Low 1.10-3.70 [facility] Comment on above: Performed By: #### B C #### [address] [place], [facility] Blood Bank Booking Clerk: Collette Willard MD Lymphocytes/100 WBC (Bld) 4 % Low 24-43 [facility] Comment on above: Performed By: #### B C #### [address] [place], [facility] Blood Bank Booking Clerk: Collette Willard MD MCH (RBC) [Entitic mass] 31.0 pg Normal 25.2-33.5 [facility] Comment on above: Performed By: #### B C #### [address] [place], [place] 8038783 Blood Bank Booking Clerk: Collette Willard MD MCHC (RBC) [Mass/Vol] 31.9 g/dL Normal 28.4-34.8 [facility] Comment on above: Performed By: #### B C #### [address] [place], [place] [id number] Blood Bank Booking Clerk: Collette Willard MD MCV (RBC) [Entitic vol] 97.0 fL Normal 82.6-102.9 [facility] Comment on above: Performed By: #### B C #### [address] [place] [address] Blood Bank Booking Clerk: Collette Willard MD Monocytes (Bld) [#/Vol] 1.27 10*3/uL High 0.10-1.20 [facility] Comment on above: Performed By: #### B C #### [facility] [address] [place], [place] 9275683 Blood Bank Booking Clerk: Collette Willard MD Monocytes/100 WBC (Bld) 6 % Normal 3-12 [facility] Comment on above: Performed By: #### B C #### [facility] [address] [place], [place] 1973283 Blood Bank Booking Clerk: Collette Willard MD Neutrophil (Seg) 88 % High 36-65 [facility] Comment on above: Performed By: #### B C #### [facility] [address] [place], [place] 1641083 Blood Bank Booking Clerk: Collette Willard MD NRBC Automated 0.0 per 100 WBC Normal 0.0 [facility] Comment on above: Performed By: #### B C #### [facility] [address] [place] [address] Blood Bank Booking Clerk: Collette Willard MD Platelet mean volume (Bld) [Entitic vol] 10.6 fL Normal 8.1-13.5 [facility] Comment on above: Performed By: #### B C #### [address] [place] [address] Blood Bank Booking Clerk: Collette Willard MD Platelets (Bld) [#/Vol] 155 10*3/uL Normal 138-453 [facility] Comment on above: Performed By: #### B C #### [facility] [address] [place] [address] Dr. [place], [place] [id number] Blood Bank Booking Clerk: Collette Willard MD RBC (Bld) [#/Vol] 4.62 10*6/uL Normal 3.95-5.11 [facility] Comment on above: Performed By: #### B C #### [facility] [address] [place], [place] [id number] Blood Bank Booking Clerk: Collette Willard MD WBC (Bld) [#/Vol] 20.1 10*3/uL High 3.5-11.3 [facility] Comment on above: Performed By: #### B C #### [facility] [address] [place], [place] 5017983 Blood Bank Booking Clerk: Collette Willard MD Comp Metabolic Profon 2022 Albumin [Mass/Vol] 3.8 g/dL Normal 3.5-5.2 [facility] Comment on above: Performed By: #### B C #### [facility] [address] [place], [place] 0375083 Blood Bank Booking Clerk: Collette Willard MD Albumin/Glob Ratio 1.6 Normal 1.0-2.5 [facility] Comment on above: Performed By: #### B C #### [facility] [address] [place], [place] 8063683 Blood Bank Booking Clerk: Collette Willard MD Alkaline Phos 127 U/L High 35-104 [facility] Comment on above: Performed By: #### B C #### [facility] [address] [place], [place] 6969783 Blood Bank Booking Clerk: Collette Willard MD ALT [Catalytic activity/Vol] 55 U/L High 5-33 [facility] Comment on above: Performed By: #### B C #### [facility] [address] [place], [place] 1432483 Blood Bank Booking Clerk: Collette Willard MD Anion gap [Moles/Vol] 10 mmol/L Normal 9-17 [facility] Comment on above: Performed By: #### B C #### [facility] [address] [place], [place] 0005283 Blood Bank Booking Clerk: Collette Willard MD AST [Catalytic activity/Vol] 37 U/L High <32 [facility] Comment on above: Performed By: #### B C #### [facility] [address] [place], [place] 5986183 Blood Bank Booking Clerk: Collette Willard MD Bilirubin [Mass/Vol] 0.4 mg/dL Normal 0.3-1.2 [facility] Comment on above: Performed By: #### B C #### [facility] [address] [place], [place] 7281183 Blood Bank Booking Clerk: Collette Willard MD BUN/CRE Ratio 48 High 9-20 [facility] Comment on above: Performed By: #### B C #### [facility] [address] [place], [place] 0304583 Blood Bank Booking Clerk: Collette Willard MD Calcium [Mass/Vol] 10.5 mg/dL High 8.6-10.4 [facility] Comment on above: Performed By: #### B C #### [facility] [address] [place], [place] 6069383 Blood Bank Booking Clerk: Collette Willard MD Chloride [Moles/Vol] 100 mmol/L Normal 98-107 [facility] Comment on above: Performed By: #### B C #### [facility] [address] [place], [place] 5971983 Blood Bank Booking Clerk: Collette Willard MD CO2 [Moles/Vol] 29 mmol/L Normal 20-31 [facility] Comment on above: Performed By: #### B C #### [facility] [address] [place], [place] 6419183 Blood Bank Booking Clerk: Collette Willard MD Creatinine [Mass/Vol] 0.4 mg/dL Low 0.50-0.90 [facility] Comment on above: Performed By: #### B C #### [facility] [address] [place], [place] 6027383 Blood Bank Booking Clerk: Collette Willard MD GFR/1.73 sq M.predicted among non-blacks MDRD (S/P/Bld) [Vol rate/Area] mL/min/{1.73_m2} Normal >60 [facility] Comment on above: Result Comment: These [...] secretion. Performed By: #### B C #### [facility] [address] [place] [address] [place] [address] Blood Bank Booking Clerk: Collette Willard MD Glucose [Mass/Vol] 117 mg/dL High 70-99 [facility] Comment on above: Performed By: #### B C #### [facility] [address] [place] [address] Dr. [place], [place] 8235083 Blood Bank Booking Clerk: Collette Willard MD Potassium [Moles/Vol] 4.7 mmol/L Normal 3.7-5.3 [facility] Comment on above: Performed By: #### B C #### [facility] [address] [place] [address] Dr. [place], [place] 3304683 Blood Bank Booking Clerk: Collette Willard MD Protein [Mass/Vol] 6.2 g/dL Low 6.4-8.3 [facility] Comment on above: Performed By: #### B C #### [facility] [address] [place] [address] Dr. [place], [place] 3058983 Blood Bank Booking Clerk: Collette Willard MD Sodium [Moles/Vol] 139 mmol/L Normal 135-144 [facility] Comment on above: Performed By: #### B C #### [facility] [address] [place] [address] Dr. [place], [place] 4526183 Blood Bank Booking Clerk: Collette Willard MD Urea nitrogen [Mass/Vol] 19 mg/dL Normal 8-23 [facility] Comment on above: Performed By: #### B C #### [facility] [address] [place] [address] Blood Bank Booking Clerk: Collette Willard MD XR cervical spine 2Von 09-21 XR cervical spine 2V [facility] Main [address] [address] XRay Report Signed Patient: Miriam German MR#: [id number] : 1955 Acct:[id number] Age/Sex: 67 / F ADM Date: 09/17/22 Loc: Room: [address] [place] [address] Type: ADM IN Attending Dr: Tom Hill [...] William Auguste M.D.09/21/2022 12:09 PM Dictation Location: [place] [address] Transcribed By: [facility] 09/21/22 1209 Dictated By: William Auguste DO 09/21/22 1205 Signed By: 09/21/22 1209 Normal [facility] Alanine aminotransferase [En zymatic activity/volume] in Serum or PlasmaOrdered By: Tom Hill on 09-18-2022 ALT [Catalytic activity/Vol] 32 U/L [facility] Albumin [Mass/volume] in Ser um or Plasma by Bromocresol green (BCG) dye binding methoOrdered By: Tom Hill on 09-18-2022 Albumin BCG dye [Mass/Vol] 3.9 g/dL 3.5-5.7 [facility] Alkaline phosphatase [Enzyma tic activity/volume] in Serum or PlasmaOrdered By: Tom Hill on 09-18-2022 ALP [Catalytic activity/Vol] 93 U/L 34-104 [facility] Aspartate aminotransferase [ Enzymatic activity/volume] in Serum or PlasmaOrdered By: Tom Hill on 09-18-2022 AST [Catalytic activity/Vol] 27 U/L 13-39 [facility] Basophils Auto (Bld) [#/Vol] Ordered By: Tom Hill on 09-18-2022 Basophils (Bld) [#/Vol] 0.1 10*3/uL 0.0-0.2 [facility] Basophils/100 WBC Auto (Bld) Ordered By: Tom Sergio on 09-18-2022 Basophils/100 WBC (Bld) 0.6 % . [facility] Bilirubin.total [Mass/volume ] in Serum or PlasmaOrdered By: Tom Hill on 09-18-2022 Bilirubin [Mass/Vol] 0.3 mg/dL 0.3-1.0 [facility] Calcium [Mass/volume] in Ser um or PlasmaOrdered By: Tom Sergio on 09-18-2022 Calcium [Mass/Vol] 10.5 mg/dL 8.6-10.[address] [facility] Carbon dioxide, total [Moles /volume] in Serum or PlasmaOrdered By: Tom Hill on 09-18-2022 CO2 [Moles/Vol] 32.3 mmol/L 21.0-31.0 [facility] Chloride [Moles/volume] in S jody or PlasmaOrdered By: Tom Hill on 09-18-2022 Chloride [Moles/Vol] 106 mmol/L 98-107 [facility] Complete Blood Count Auto Di ffon 09-18-2022 Basophils (Bld) [#/Vol] 0.1 10*3/uL Normal 0.0-0.2 [facility] Comment on above: Result Comment: PERF ORMED BY: [facility] [address] [place] [address] PATHOLOGIST WEB OPERATIONS ADMINISTRATOR PETER RAYO M.D. Performed By: #### C MP, PAB, CBC #### [facility] [address] [place] [address] [place] Basophils/100 WBC (Bld) 0.6 % Normal . [facility] Comment on above: Performed By: #### C MP, PAB, CBC #### [facility] [address] [place] [address] [place] Eosinophils (Bld) [#/Vol] 0.0 10*3/uL Normal 0.0-0.45 [facility] Comment on above: Performed By: #### C MP, PAB, CBC #### [facility] [address] [place] [address] [place] Eosinophils/100 WBC (Bld) 0.0 % Normal . [facility] Comment on above: Performed By: #### C MP, PAB, CBC #### [address] Erythrocyte distribution width (RBC) [Ratio] 14.5 % Normal 11.9-15.3 [facility] Comment on above: Performed By: #### C MP, PAB, CBC #### [place] [address] [place] Hematocrit (Bld) [Volume fraction] 39.4 % Normal 34.0-46.4 [facility] Comment on above: Performed By: #### C MP, PAB, CBC #### [facility] [address] [place] [address] [place] Hemoglobin (Bld) [Mass/Vol] 12.9 g/dL Normal 11.8-15.4 [facility] Comment on above: Performed By: #### C MP, PAB, CBC #### [facility] [address] [place] [address] [place] Lymphocytes (Bld) [#/Vol] 1.1 10*3/uL Normal 1.00-4.8 [facility] Comment on above: Performed By: #### C MP, PAB, CBC #### [facility] [address] [place] [address] [place] Lymphocytes/100 WBC (Bld) 9.2 % Normal . [facility] Comment on above: Performed By: #### C MP, PAB, CBC #### [facility] [address] MCH (RBC) [Entitic mass] 30.7 pg Normal 24.7-34.3 [facility] Comment on above: Performed By: #### C MP, PAB, CBC #### [address] MCV (RBC) [Entitic vol] 93.4 fL Normal 80-100 [facility] Comment on above: Performed By: #### C MP, PAB, CBC #### [address] Mean Corpuscular HGB Conc 32.8 g/dL Normal 32.0-35.0 [facility] Comment on above: Performed By: #### C MP, PAB, CBC #### [address] Monocytes (Bld) [#/Vol] 1.0 10*3/uL High 0.0-0.8 [facility] Comment on above: Performed By: #### C MP, PAB, CBC #### [address] Monocytes/100 WBC (Bld) 8.3 % Normal . [facility] Comment on above: Performed By: #### C MP, PAB, CBC #### [address] Neutrophils (Bld) [#/Vol] 9.9 10*3/uL High 1.8-7.7 [facility] Comment on above: Performed By: #### C MP, PAB, CBC #### [address] Neutrophils/100 WBC (Bld) 81.9 % Normal . [facility] Comment on above: Performed By: #### C MP, PAB, CBC #### [address] NRBC% 0.1 /100{WBC} Normal 0-0.5 [facility] Comment on above: Performed By: #### C MP, PAB, CBC #### [facility] [address] Platelet mean volume (Bld) [Entitic vol] 8.1 fL Normal 6.3-10.7 [facility] Comment on above: Performed By: #### C MP, PAB, CBC #### [address] Platelets (Bld) [#/Vol] 220 10*3/uL Normal 150-450 [facility] Comment on above: Performed By: #### C MP, PAB, CBC #### [address] RBC (Bld) [#/Vol] 4.22 10*6/uL Normal 3.60-5.00 [facility] Comment on above: Performed By: #### C MP, PAB, CBC #### [address] WBC (Bld) [#/Vol] 12.1 10*3/uL High 3.8-11.6 [facility] Comment on above: Performed By: #### C MP, PAB, CBC #### [address] Comprehensive Metabolic Pane markell 09-18-2022 Albumin [Mass/Vol] 3.9 g/dL Normal 3.5-5.[address] [facility] Comment on above: Performed By: #### C MP, PAB, CBC #### [address] Albumin/Globulin [Mass ratio] 1.7 {ratio} Normal [facility] Comment on above: Performed By: #### C MP, PAB, CBC #### [address] ALP [Catalytic activity/Vol] 93 U/L Normal 34-104 [facility] Comment on above: Performed By: #### C MP, PAB, CBC #### [address] ALT [Catalytic activity/Vol] 32 U/L Normal 7-52 [facility] Comment on above: Performed By: #### C MP, PAB, CBC #### [facility] [address] [place] [address] [place] Anion gap [Moles/Vol] 9.1 mmol/L Normal 6.0-15.0 [facility] Comment on above: Performed By: #### C MP, PAB, CBC #### [facility] [address] [place] [id number] [place] AST [Catalytic activity/Vol] 27 U/L Normal 13-39 [facility] Comment on above: Performed By: #### C MP, PAB, CBC #### [facility] [address] Bilirubin [Mass/Vol] 0.3 mg/dL Normal 0.3-1.0 [facility] Comment on above: Performed By: #### C MP, PAB, CBC #### [facility] [address] [place] [address] [place] Calcium [Mass/Vol] 10.5 mg/dL High 8.6-10.[address] [facility] Comment on above: Performed By: #### C MP, PAB, CBC #### [facility] [address] [place] [address] [place] Chloride [Moles/Vol] 106 mmol/L Normal 98-107 [facility] Comment on above: Performed By: #### C MP, PAB, CBC #### [facility] [address] [place] [address] [place] CO2 [Moles/Vol] 32.3 mmol/L High 21.0-31.0 [facility] Comment on above: Performed By: #### C MP, PAB, CBC #### [facility] [address] [place] [address] [place] Creatinine [Mass/Vol] 0.46 mg/dL Low 0.60-1.20 [facility] Comment on above: Performed By: #### C MP, PAB, CBC #### [facility] [address] [place] [id number] [place] Creatinine Clr Calc Pharmacy 72.98 Normal [facility] Comment on above: Performed By: #### C MP, PAB, CBC #### [facility] [address] [place] [address] [place] GFR/1.73 sq M.predicted MDRD (S/P/Bld) [Vol rate/Area] mL/min/{1.73_m2} [facility] Comment on above: Performed By: #### C MP, PAB, CBC #### [facility] [address] Globulin (S) [Mass/Vol] 2.3 g/dL [facility] Comment on above: Performed By: #### C MP, PAB, CBC #### [facility] [address] Glucose [Mass/Vol] 113 mg/dL High 70-[address] [facility] Comment on above: Result Comment: [place] Glucose Reference Range is dependent on time and content of last meal. Glucose of more than 200 mg/dL in a nonstressed, ambulatory subject supports the diagnosis of Diabetes Mellitus. ADA recommended reference range Performed By: #### C MP, PAB, CBC #### [facility] [address] Potassium [Moles/Vol] 4.4 mmol/L Normal 3.5-5.1 [facility] Comment on above: Performed By: #### C MP, PAB, CBC #### [facility] [address] Protein [Mass/Vol] 6.2 g/dL Low 6.4-8.[address] [facility] Comment on above: Performed By: #### C MP, PAB, CBC #### [facility] [address] [place] [address] [place] Sodium [Moles/Vol] 143 mmol/L Normal 136-[address] [facility] Comment on above: Performed By: #### C MP, PAB, CBC #### [facility] [address] Urea nitrogen [Mass/Vol] 21 mg/dL Normal 7-25 [facility] Comment on above: Performed By: #### C MP, PAB, CBC #### [facility] [address] Creatinine [Mass/volume] in Serum or PlasmaOrdered By: Tom Hill on 09-18-2022 Creatinine [Mass/Vol] 0.46 mg/dL 0.60-1.20 [facility] Eosinophils Auto (Bld) [#/Vo l]Ordered By: Tom Hill on 09-18-2022 Eosinophils (Bld) [#/Vol] 0.0 10*3/uL 0.0-0.45 [facility] Eosinophils/100 WBC Auto (Bl d)Ordered By: Tom Hill on 09-18-2022 Eosinophils/100 WBC (Bld) 0.0 % . [facility] Erythrocyte distribution wid th Auto (RBC) [Ratio]Ordered By: Tom Hill on 09-18-2022 Erythrocyte distribution width (RBC) [Ratio] 14.5 % 11.9-15.3 [facility] Globulin Calc (S) [Mass/Vol] Ordered By: Tom Hill on 09-18-2022 Globulin (S) [Mass/Vol] 2.3 g/dL [facility] Glucose [Mass/volume] in Ser um or PlasmaOrdered By: Tom Hill on 09-18-2022 Glucose [Mass/Vol] 113 mg/dL 70-[address] [facility] Comment on above: ADA recommended refe rence rangeRandom Glucose Reference Range is dependent on time and content of last meal. Glucose of more than 200 mg/dL in a nonstressed, ambulatory subject supports the diagnosis of Diabetes Mellitus. Hematocrit Auto (Bld) [Volum e fraction]Ordered By: Tom Hill on 09-18-2022 Hematocrit (Bld) [Volume fraction] 39.4 % 34.0-46.4 [facility] Hemoglobin [Mass/volume] in BloodOrdered By: Tom Hill on 09-18-2022 Hemoglobin (Bld) [Mass/Vol] 12.9 g/dL 11.8-15.4 [facility] Leukocytes [#/volume] correc nilay for nucleated erythrocytes in Blood by Automated counOrdered By: Tom Hill on 09-18-2022 WBC corrected for nucl RBC Auto (Bld) [#/Vol] 12.1 10*3/uL 3.8-11.6 [facility] Lymphocytes Auto (Bld) [#/Vo l]Ordered By: Tom Hill on 09-18-2022 Lymphocytes (Bld) [#/Vol] 1.1 10*3/uL 1.00-4.8 [facility] Lymphocytes/100 WBC Auto (Bl d)Ordered By: Tom Hill on 09-18-2022 Lymphocytes/100 WBC (Bld) 9.2 % . [facility] MCH Auto (RBC) [Entitic mass ]Ordered By: Tom Hill on 09-18-2022 MCH (RBC) [Entitic mass] 30.7 pg 24.7-34.3 [facility] MCHC Auto (RBC) [Mass/Vol]Or dered By: Tom Hill on 09-18-2022 MCHC (RBC) [Mass/Vol] 32.8 g/dL 32.0-35.0 [facility] MCV Auto (RBC) [Entitic vol] Ordered By: Tom Hill on 09-18-2022 MCV (RBC) [Entitic vol] 93.4 fL 80-100 [facility] Monocytes Auto (Bld) [#/Vol] Ordered By: Tom Hill on 09-18-2022 Monocytes (Bld) [#/Vol] 1.0 10*3/uL 0.0-0.8 [facility] Monocytes/100 WBC Auto (Bld) Ordered By: Tom Hill on 09-18-2022 Monocytes/100 WBC (Bld) 8.3 % . [facility] Neutrophils Auto (Bld) [#/Vo l]Ordered By: Tom Hill on 09-18-2022 Neutrophils (Bld) [#/Vol] 9.9 10*3/uL 1.8-7.7 [facility] Neutrophils/100 WBC Auto (Bl d)Ordered By: Tom Hill on 09-18-2022 Neutrophils/100 WBC (Bld) 81.9 % . [facility] No Panel InformationOrdered By: Tom Hill on 09-18-2022 Estimated GFR (CKD-EPI) > 60.0 mL/Min [facility] Creatinine Clearance (Chem 72.98 [facility] Nucleated erythrocytes [Pres ence] in Blood by Automated countOrdered By: Tom Hill on 09-18-2022 Nucleated RBC Auto Ql (Bld) 0.1 /100{WBC} 0-0.5 [facility] Platelet mean volume Auto (B ld) [Entitic vol]Ordered By: Tom Hill on 09-18-2022 Platelet mean volume (Bld) [Entitic vol] 8.1 fL 6.3-10.7 [facility] Platelets Auto (Bld) [#/Vol] Ordered By: Tom Hill on 09-18-2022 Platelets (Bld) [#/Vol] 220 10*3/uL 150-450 [facility] Potassium [Moles/volume] in Serum or PlasmaOrdered By: Tom Hill on 09-18-2022 Potassium [Moles/Vol] 4.4 mmol/L 3.5-5.1 [facility] Prealbuminon 09-18-2022 Prealbumin [Mass/Vol] 39.3 mg/dL High 17.0-34.0 [facility] Comment on above: Result Comment: PERF ORMED BY: [facility] [address] [place] [address] PATHOLOGIST WEB OPERATIONS ADMINISTRATOR PETER RAYO M.D. Performed By: #### A BG #### Point of Care testing , Prealbumin [Mass/volume] in Serum or PlasmaOrdered By: Tom Hill on 09-18-2022 Prealbumin [Mass/Vol] 39.3 mg/dL 17.0-34.0 [facility] Protein [Mass/volume] in Ser um or PlasmaOrdered By: Tom Hill on 09-18-2022 Protein [Mass/Vol] 6.2 g/dL 6.4-8.[address] [facility] RBC Auto (Bld) [#/Vol]Ordere d By: Tom Hill on 09-18-2022 RBC (Bld) [#/Vol] 4.22 10*6/uL 3.60-5.00 [facility] Serum or plasma albumin/glob ulin mass ratioOrdered By: Tom Hill on 09-18-2022 Albumin/Globulin [Mass ratio] 1.7 {ratio} [facility] Serum or plasma anion gap de terminationOrdered By: Tom Hill on 09-18-2022 Anion gap [Moles/Vol] 9.1 mmol/L 6.0-15.0 [facility] Sodium [Moles/volume] in Ser um or PlasmaOrdered By: Tom Hill on 09-18-2022 Sodium [Moles/Vol] 143 mmol/L 136-[address] [facility] Urea nitrogen [Mass/volume] in Serum or PlasmaOrdered By: Tom Hill on 09-18-2022 Urea nitrogen [Mass/Vol] 21 mg/dL 7- [facility] WBC Auto (Bld) [#/Vol]Ordere d By: Tom Hill on 09-18-2022 WBC (Bld) [#/Vol] 12.1 10*3/uL 3.8-11.6 [facility] Anisocytosis LM Ql (Bld)Orde red By: Mildred Summers on 09-17-2022 Anisocytosis Ql (Bld) Slight [facility] Basic Metabolic Panelon 08-22 Anion gap [Moles/Vol] 9.4 mmol/L Normal 6.0-15.0 [facility] Comment on above: Order Comment: pt ge tting pt check back Performed By: #### R SUSI WEISS REDRAW K #### [facility] [address] [place] [address] [place] Calcium [Mass/Vol] 10.4 mg/dL High 8.6-10.[address] [facility] Comment on above: Order Comment: pt ge tting pt check back Performed By: #### R MATEO EPPERSONRASrikanth K #### [facility] [address] [id number] [place] Chloride [Moles/Vol] 104 mmol/L Normal 98-107 [facility] Comment on above: Order Comment: pt ge tting pt check back Performed By: #### R SUSI WEISS REDRAW K #### [facility] [address] [id number] [place] CO2 [Moles/Vol] 31.9 mmol/L High 21.0-31.0 [facility] Comment on above: Order Comment: pt ge tting pt check back Performed By: #### GABINO BENOIT #### [facility] [address] [place] [address] Creatinine [Mass/Vol] 0.46 mg/dL Low 0.60-1.20 [facility] Comment on above: Order Comment: pt ge tting pt check back Performed By: #### GABINO BENOIT #### [place] [address] [place] Creatinine Clr Calc Pharmacy 73.67 [facility] Comment on above: Order Comment: pt ge tting pt check back Result Comment: PERF ORMED BY: [place] [address] PATHOLOGIST WEB OPERATIONS ADMINISTRATOR PETER RAYO M.D. Performed By: #### GABINO BENOIT #### [address] GFR/1.73 sq M.predicted MDRD (S/P/Bld) [Vol rate/Area] mL/min/{1.73_m2} [facility] Comment on above: Order Comment: pt ge tting pt check back Performed By: #### GABINO BENOIT #### [address] Glucose [Mass/Vol] 115 mg/dL High 70-[address] [facility] Comment on above: Order Comment: pt ge tting pt check back Result Comment: [place] om Glucose Reference Range is dependent on time and content of last meal. Glucose of more than 200 mg/dL in a nonstressed, ambulatory subject supports the diagnosis of Diabetes Mellitus. ADA recommended reference range Performed By: #### GABINO BENOIT #### [place] [address] [place] Potassium [Moles/Vol] 4.3 mmol/L Normal 3.5-5.1 [facility] Comment on above: Order Comment: pt ge tting pt check back Performed By: #### R EDJAXON WEISS REDRAW K #### [facility] [address] Sodium [Moles/Vol] 141 mmol/L Normal 136-[address] [facility] Comment on above: Order Comment: pt ge tting pt check back Performed By: #### R SUSI WEISS REDRAW K #### [facility] [address] Urea nitrogen [Mass/Vol] 22 mg/dL Normal 7-25 [facility] Comment on above: Order Comment: pt ge tting pt check back Performed By: #### R SUSI WEISS REDRAW K #### [facility] [address] Basophils Auto (Bld) [#/Vol] Ordered By: Mildred Summers on 09-17-2022 Basophils (Bld) [#/Vol] 0.1 10*3/uL 0.0-0.2 [facility] Basophils/100 WBC Auto (Bld) Ordered By: Mildred Summers on 09-17-2022 Basophils/100 WBC (Bld) 0.4 % . [facility] Calcium [Mass/volume] in Ser um or PlasmaOrdered By: Arnaud Max on 09-17-2022 Calcium [Mass/Vol] 10.4 mg/dL 8.6-10.[address] [facility] Carbon dioxide, total [Moles /volume] in Serum or PlasmaOrdered By: Arnaud Max on 09-17-2022 CO2 [Moles/Vol] 31.9 mmol/L 21.0-31.0 [facility] Chloride [Moles/volume] in S jody or PlasmaOrdered By: Arnaud Max on 09-17-2022 Chloride [Moles/Vol] 104 mmol/L 98-107 [facility] Creatinine [Mass/volume] in Serum or PlasmaOrdered By: Arnaud Max on 09-17-2022 Creatinine [Mass/Vol] 0.46 mg/dL 0.60-1.20 [facility] Eosinophils Auto (Bld) [#/Vo l]Ordered By: Mildred Summers on 09-17-2022 Eosinophils (Bld) [#/Vol] 0.2 10*3/uL 0.0-0.45 [facility] Eosinophils/100 WBC Auto (Bl d)Ordered By: Mildred Summers on 09-17-2022 Eosinophils/100 WBC (Bld) 1.6 % . [facility] Erythrocyte distribution wid th Auto (RBC) [Ratio]Ordered By: Mildred Summers on 09-17-2022 Erythrocyte distribution width (RBC) [Ratio] 14.9 % 11.9-15.3 [facility] Glucose [Mass/volume] in Ser um or PlasmaOrdered By: Arnaud Max on 09-17-2022 Glucose [Mass/Vol] 115 mg/dL 70-[address] [facility] Comment on above: ADA recommended refe rence rangeRandom Glucose Reference Range is dependent on time and content of last meal. Glucose of more than 200 mg/dL in a nonstressed, ambulatory subject supports the diagnosis of Diabetes Mellitus. Hematocrit Auto (Bld) [Volum e fraction]Ordered By: Mildred Summers on 09-17-2022 Hematocrit (Bld) [Volume fraction] 38.0 % 34.0-46.4 [facility] Hemoglobin [Mass/volume] in BloodOrdered By: Mildred Summers on 09-17-2022 Hemoglobin (Bld) [Mass/Vol] 12.7 g/dL 11.8-15.4 [facility] Leukocytes [#/volume] correc nilay for nucleated erythrocytes in Blood by Automated counOrdered By: Mildred Summers on 09-17-2022 WBC corrected for nucl RBC Auto (Bld) [#/Vol] 15.1 10*3/uL 3.8-11.6 [facility] Lymphocytes Auto (Bld) [#/Vo l]Ordered By: Mildred Summers on 09-17-2022 Lymphocytes (Bld) [#/Vol] 1.0 10*3/uL 1.00-4.8 [facility] Lymphocytes/100 WBC Auto (Bl d)Ordered By: Mildred Summers on 09-17-2022 Lymphocytes/100 WBC (Bld) 6.9 % . [facility] MCH Auto (RBC) [Entitic mass ]Ordered By: Mildred Summers on 09-17-2022 MCH (RBC) [Entitic mass] 31.2 pg 24.7-34.3 [facility] MCHC Auto (RBC) [Mass/Vol]Or dered By: Mildred Summers on 09-17-2022 MCHC (RBC) [Mass/Vol] 33.6 g/dL 32.0-35.0 [facility] MCV Auto (RBC) [Entitic vol] Ordered By: Mildred Summers on 09-17-2022 MCV (RBC) [Entitic vol] 92.9 fL 80-100 [facility] Microcytes LM Ql (Bld)Ordere d By: Mildred Summers on 09-17-2022 Microcytes Ql (Bld) Slight [facility] Monocytes Auto (Bld) [#/Vol] Ordered By: Mildred Summers on 09-17-2022 Monocytes (Bld) [#/Vol] 1.1 10*3/uL 0.0-0.8 [facility] Monocytes/100 WBC Auto (Bld) Ordered By: Mildred Summers on 09-17-2022 Monocytes/100 WBC (Bld) 7.6 % . [facility] Neutrophils Auto (Bld) [#/Vo l]Ordered By: Mildred Summers on 09-17-2022 Neutrophils (Bld) [#/Vol] 12.6 10*3/uL 1.8-7.7 [facility] Neutrophils/100 WBC Auto (Bl d)Ordered By: Mildred Summers on 09-17-2022 Neutrophils/100 WBC (Bld) 83.5 % . [facility] No Panel InformationOrdered By: Arnaud Max on 09-17-2022 Estimated GFR (CKD-EPI) > 60.0 mL/Min [facility] Creatinine Clearance (Chem 73.67 [facility] Nucleated erythrocytes [Pres ence] in Blood by Automated countOrdered By: Mildred Summers on 09-17-2022 Nucleated RBC Auto Ql (Bld) 0.2 /100{WBC} 0-0.5 [facility] Platelet adequacy [Presence] in Blood by Light microscopyOrdered By: Mildred Summers on 09-17-2022 Platelets LM Ql (Bld) Normal Normal [facility] Platelet mean volume Auto (B ld) [Entitic vol]Ordered By: Mildred Summers on 09-17-2022 Platelet mean volume (Bld) [Entitic vol] 8.5 fL 6.3-10.7 [facility] Platelet morphology finding [Identifier] in BloodOrdered By: Mildred Summers on 09-17-2022 Platelet morphology finding Nom (Bld) Normal Normal [facility] Platelets Auto (Bld) [#/Vol] Ordered By: Mildred Summers on 09-17-2022 Platelets (Bld) [#/Vol] 278 10*3/uL 150-450 [facility] Potassium [Moles/volume] in Serum or PlasmaOrdered By: Arnaud Max on 09-17-2022 Potassium [Moles/Vol] 4.3 mmol/L 3.5-5.1 [facility] RBC Auto (Bld) [#/Vol]Ordere d By: Mildred Summers on 09-17-2022 RBC (Bld) [#/Vol] 4.09 10*6/uL 3.60-5.00 [facility] RBC morphologyOrdered By: Leidy Summers on 09-17-2022 RBC morphology finding Nom (Bld) N/A [facility] Scan and CBCon 09-17-2022 Anisocytosis Ql (Bld) Slight Normal [facility] Comment on above: Performed By: #### A BG #### Point of Care testing , Basophils (Bld) [#/Vol] 0.1 10*3/uL Normal 0.0-0.2 [facility] Comment on above: Performed By: #### A BG #### Point of Care testing , Basophils/100 WBC (Bld) 0.4 % Normal . [facility] Comment on above: Performed By: #### A BG #### Point of Care testing , Eosinophils (Bld) [#/Vol] 0.2 10*3/uL Normal 0.0-0.45 [facility] Comment on above: Performed By: #### A BG #### Point of Care testing , Eosinophils/100 WBC (Bld) 1.6 % Normal . [facility] Comment on above: Performed By: #### A BG #### Point of Care testing , Erythrocyte distribution width (RBC) [Ratio] 14.9 % Normal 11.9-15.3 [facility] Comment on above: Performed By: #### A BG #### Point of Care testing , Hematocrit (Bld) [Volume fraction] 38.0 % Normal 34.0-46.4 [facility] Comment on above: Performed By: #### A BG #### Point of Care testing , Hemoglobin (Bld) [Mass/Vol] 12.7 g/dL Normal 11.8-15.4 [facility] Comment on above: Performed By: #### A BG #### Point of Care testing , Lymphocytes (Bld) [#/Vol] 1.0 10*3/uL Normal 1.00-4.8 [facility] Comment on above: Performed By: #### A BG #### Point of Care testing , Lymphocytes/100 WBC (Bld) 6.9 % Normal . [facility] Comment on above: Performed By: #### A BG #### Point of Care testing , MCH (RBC) [Entitic mass] 31.2 pg Normal 24.7-34.3 [facility] Comment on above: Performed By: #### A BG #### Point of Care testing , MCV (RBC) [Entitic vol] 92.9 fL Normal 80-100 [facility] Comment on above: Performed By: #### A BG #### Point of Care testing , Mean Corpuscular HGB Conc 33.6 g/dL Normal 32.0-35.0 [facility] Comment on above: Performed By: #### A BG #### Point of Care testing , Microcytosis Slight Normal [facility] Comment on above: Performed By: #### A BG #### Point of Care testing , Monocytes (Bld) [#/Vol] 1.1 10*3/uL High 0.0-0.8 [facility] Comment on above: Performed By: #### A BG #### Point of Care testing , Monocytes/100 WBC (Bld) 7.6 % Normal . [facility] Comment on above: Performed By: #### A BG #### Point of Care testing , Neutrophils (Bld) [#/Vol] 12.6 10*3/uL High 1.8-7.7 [facility] Comment on above: Performed By: #### A BG #### Point of Care testing , Neutrophils/100 WBC (Bld) 83.5 % Normal . [facility] Comment on above: Performed By: #### A BG #### Point of Care testing , NRBC% 0.2 /100{WBC} Normal 0-0.5 [facility] Comment on above: Performed By: #### A BG #### Point of Care testing , Platelet Estimate Normal Normal Normal [facility] Comment on above: Performed By: #### A BG #### Point of Care testing , Platelet mean volume (Bld) [Entitic vol] 8.5 fL Normal 6.3-10.7 [facility] Comment on above: Performed By: #### A BG #### Point of Care testing , Platelet Morphology Normal Normal Normal [facility] Comment on above: Result Comment: PERF ORMED BY: [facility] [address] [place] [address] PATHOLOGIST WEB OPERATIONS ADMINISTRATOR PETER RAYO M.D. Performed By: #### A BG #### Point of Care testing , Platelets (Bld) [#/Vol] 278 10*3/uL Normal 150-450 [facility] Comment on above: Performed By: #### A BG #### Point of Care testing , RBC (Bld) [#/Vol] 4.09 10*6/uL Normal 3.60-5.00 [facility] Comment on above: Performed By: #### A BG #### Point of Care testing , WBC (Bld) [#/Vol] 15.1 10*3/uL High 3.8-11.6 [facility] Comment on above: Performed By: #### A BG #### Point of Care testing , Serum or plasma anion gap de terminationOrdered By: Arnaud Max on 09-17-2022 Anion gap [Moles/Vol] 9.4 mmol/L 6.0-15.0 [facility] Sodium [Moles/volume] in Ser um or PlasmaOrdered By: Arnaud Max on 09-17-2022 Sodium [Moles/Vol] 141 mmol/L 136-[address] [facility] Urea nitrogen [Mass/volume] in Serum or PlasmaOrdered By: Arnaud Max on 09-17-2022 Urea nitrogen [Mass/Vol] 22 mg/dL 10-14 [facility] WBC Auto (Bld) [#/Vol]Ordere d By: Mildred Summers on 09-17-2022 WBC (Bld) [#/Vol] 15.1 10*3/uL 3.8-11.6 [facility] Basic Metabolic Panelon 08-22 Anion gap [Moles/Vol] Not performed Normal 6.0-15.0 [facility] Comment on above: Performed By: #### R GABINO EPPERSON #### [facility] [address] [place] [address] [place] Calcium [Mass/Vol] 10.5 mg/dL High 8.6-10.[address] [facility] Comment on above: Performed By: #### R GABINO EPPERSON #### [facility] [address] [id number] [place] Chloride [Moles/Vol] 100 mmol/L Normal 98-107 [facility] Comment on above: Performed By: #### R GABINO EPPERSON K #### [facility] [address] [id number] [place] CO2 [Moles/Vol] 30.2 mmol/L Normal 21.0-31.0 [facility] Comment on above: Performed By: #### R GABINO EPPERSON K #### [facility] [address] [place] [address] [place] Creatinine [Mass/Vol] 0.53 mg/dL Low 0.60-1.20 [facility] Comment on above: Performed By: #### GABINO BENOIT #### [address] Creatinine Clr Calc Pharmacy 72.44 Normal [facility] Comment on above: Result Comment: PERF ORMED BY: [place] [address] PATHOLOGIST WEB OPERATIONS ADMINISTRATOR PETER RAYO M.D. Performed By: #### GABINO BENOIT #### [address] GFR/1.73 sq M.predicted MDRD (S/P/Bld) [Vol rate/Area] mL/min/{1.73_m2} [facility] Comment on above: Performed By: #### GABINO BENOIT #### [address] Glucose [Mass/Vol] 124 mg/dL High 70-[address] [facility] Comment on above: Result Comment: [place] Glucose Reference Range is dependent on time and content of last meal. Glucose of more than 200 mg/dL in a nonstressed, ambulatory subject supports the diagnosis of Diabetes Mellitus. ADA recommended reference range Performed By: #### GABINO BENOIT #### [address] Potassium Normal 3.5-5.1 [facility] Comment on above: Result Comment: Spec imen hemolyzed, redraw requested Performed By: #### GABINO BENOIT #### [place] [address] [place] Sodium [Moles/Vol] 137 mmol/L Normal 136-[address] [facility] Comment on above: Performed By: #### GABINO BENOIT #### [address] Urea nitrogen [Mass/Vol] 16 mg/dL Normal 7-25 [facility] Comment on above: Performed By: #### GABINO BENOIT #### [address] Complete Blood Count Auto Di ffon 09-16-2022 Basophils (Bld) [#/Vol] 0.0 10*3/uL Normal 0.0-0.2 [facility] Comment on above: Result Comment: PERF ORMED BY: [place] [address] PATHOLOGIST WEB OPERATIONS ADMINISTRATOR PETER RAYO M.D. Performed By: #### GABINO BENOIT #### [address] Basophils/100 WBC (Bld) 0.2 % Normal . [facility] Comment on above: Performed By: #### GABINO BENOIT #### [address] Eosinophils (Bld) [#/Vol] 0.0 10*3/uL Normal 0.0-0.45 [facility] Comment on above: Performed By: #### GABINO BENOIT #### [address] Eosinophils/100 WBC (Bld) 0.0 % Normal . [facility] Comment on above: Performed By: #### GABINO BENOIT #### [address] Erythrocyte distribution width (RBC) [Ratio] 14.5 % Normal 11.9-15.3 [facility] Comment on above: Performed By: #### GABINO BENOIT #### [address] Hematocrit (Bld) [Volume fraction] 38.0 % Normal 34.0-46.4 [facility] Comment on above: Performed By: #### GABINO BENOIT #### [address] Hemoglobin (Bld) [Mass/Vol] 12.8 g/dL Normal 11.8-15.4 [facility] Comment on above: Performed By: #### GABINO BENOIT #### [address] Lymphocytes (Bld) [#/Vol] 0.7 10*3/uL Low 1.00-4.8 [facility] Comment on above: Performed By: #### GABINO BENOIT #### [address] Lymphocytes/100 WBC (Bld) 4.4 % Normal . [facility] Comment on above: Performed By: #### GABINO BENOIT #### [address] MCH (RBC) [Entitic mass] 31.0 pg Normal 24.7-34.3 [facility] Comment on above: Performed By: #### GABINO BENOIT #### [address] MCV (RBC) [Entitic vol] 91.9 fL Normal 80-100 [facility] Comment on above: Performed By: #### GABINO BENOIT #### [address] Mean Corpuscular HGB Conc 33.8 g/dL Normal 32.0-35.0 [facility] Comment on above: Performed By: #### GABINO BENOIT #### [address] Monocytes (Bld) [#/Vol] 0.5 10*3/uL Normal 0.0-0.8 [facility] Comment on above: Performed By: #### GABINO BENOIT #### [address] Monocytes/100 WBC (Bld) 3.3 % Normal . [facility] Comment on above: Performed By: #### GABINO BENOIT #### [facility] [address] [place] [address] Neutrophils (Bld) [#/Vol] 14.2 10*3/uL High 1.8-7.7 [facility] Comment on above: Performed By: #### GABINO BENOIT #### [address] Neutrophils/100 WBC (Bld) 92.1 % Normal . [facility] Comment on above: Performed By: #### GABINO BENOIT #### [address] NRBC% 0.0 /100{WBC} Normal 0-0.5 [facility] Comment on above: Performed By: #### GABINO BENOIT #### [address] Platelet mean volume (Bld) [Entitic vol] 7.8 fL Normal 6.3-10.7 [facility] Comment on above: Performed By: #### GABINO BENOIT #### [address] Platelets (Bld) [#/Vol] 247 10*3/uL Normal 150-450 [facility] Comment on above: Performed By: #### GABINO BENOIT #### [address] RBC (Bld) [#/Vol] 4.14 10*6/uL Normal 3.60-5.00 [facility] Comment on above: Performed By: #### GABINO BENOIT #### [address] WBC (Bld) [#/Vol] 15.5 10*3/uL High 3.8-11.6 [facility] Comment on above: Performed By: #### R EDRAW NA, REDRAW K #### [address] ECG 12 lead ECGon 09-16-2022 ECG 12 lead ECG [facility] [address] [place] [address] [place] [address] Electrocardiograph Report Signed Patient: Miriam German MR#: [id number] : 1955 Acct:[id number] Age/Sex: 67 / F ADM Date: 09/10/22 Loc: Room: [address] [place] [address] Type: DIS IN Attending Dr: Arnaud Max [...] By William Broderick DO 09/26 1255 Normal [facility] Redraw Potassiumon 3 Potassium [Moles/Vol] 4.2 mmol/L Normal 3.5-5.1 [facility] Comment on above: Order Comment: FIRST SPECIMEN HEMOLYZED Result Comment: PERF ORMED BY: [place] [address] PATHOLOGIST WEB OPERATIONS ADMINISTRATOR PETER RAYO M.D. Performed By: #### A BG #### Point of Care testing , Activated partial thrombopla stin time (aPTT) in platelet poor plasma by coagulation aOrdered By: Boni Lincoln on 09-15-2022 aPTT Coag (PPP) [Time] 25.0 s 25.1-36.5 [facility] Basic Metabolic Panelon 06-2 Anion gap [Moles/Vol] Not performed Normal 6.0-15.0 [facility] Comment on above: Performed By: #### A BG #### Point of Care testing , Calcium [Mass/Vol] 9.9 mg/dL Normal 8.6-10.[address] [facility] Comment on above: Performed By: #### A BG #### Point of Care testing , Chloride [Moles/Vol] 102 mmol/L Normal 98-107 [facility] Comment on above: Performed By: #### A BG #### Point of Care testing , CO2 [Moles/Vol] 27.6 mmol/L Normal 21.0-31.0 [facility] Comment on above: Performed By: #### A BG #### Point of Care testing , Creatinine [Mass/Vol] 0.47 mg/dL Low 0.60-1.20 [facility] Comment on above: Performed By: #### A BG #### Point of Care testing , Creatinine Clr Calc Pharmacy 74.57 [facility] Comment on above: Result Comment: PERF ORMED BY: [facility] [address] [place] [address] PATHOLOGIST WEB OPERATIONS ADMINISTRATOR PETER RAYO M.D. Performed By: #### A BG #### Point of Care testing , GFR/1.73 sq M.predicted MDRD (S/P/Bld) [Vol rate/Area] mL/min/{1.73_m2} [facility] Comment on above: Performed By: #### A BG #### Point of Care testing , Glucose [Mass/Vol] 107 mg/dL High 70-[address] [facility] Comment on above: Result Comment: [place] Glucose Reference Range is dependent on time and content of last meal. Glucose of more than 200 mg/dL in a nonstressed, ambulatory subject supports the diagnosis of Diabetes Mellitus. ADA recommended reference range Performed By: #### A BG #### Point of Care testing , Potassium Normal 3.5-5.1 [facility] Comment on above: Result Comment: Spec imen hemolyzed, redraw requested Performed By: #### A BG #### Point of Care testing , Sodium Normal 136-145 [facility] Comment on above: Result Comment: Spec imen hemolyzed, redraw requested Performed By: #### A BG #### Point of Care testing , Urea nitrogen [Mass/Vol] 20 mg/dL Normal 7-25 [facility] Comment on above: Performed By: #### A BG #### Point of Care testing , Coagulation Profileon 2022 aPTT Coag (Bld) [Time] 25.0 s Low 25.1-36.5 [facility] Comment on above: Result Comment: PERF ORMED BY: [address] [place] [address] PATHOLOGIST WEB OPERATIONS ADMINISTRATOR PETER RAYO M.D. Performed By: #### A BG #### Point of Care testing , INR Coag (PPP) [Relative time] 0.9 {INR} Normal [facility] Comment on above: Result Comment: INR Therapeutic [...] (PPP) [Time] 10.8 s Normal 9.0-12.9 [facility] Comment on above: Performed By: #### A BG #### Point of Care testing , Complete Blood Count Auto Di ffon 09-15-2022 Basophils (Bld) [#/Vol] 0.1 10*3/uL Normal 0.0-0.2 [facility] Comment on above: Result Comment: PERF ORMED BY: [facility] [address] [place] [address] PATHOLOGIST WEB OPERATIONS ADMINISTRATOR PETER RAYO M.D. Performed By: #### A BG #### Point of Care testing , Basophils/100 WBC (Bld) 0.6 % Normal . [facility] Comment on above: Performed By: #### A BG #### Point of Care testing , Eosinophils (Bld) [#/Vol] 0.3 10*3/uL Normal 0.0-0.45 [facility] Comment on above: Performed By: #### A BG #### Point of Care testing , Eosinophils/100 WBC (Bld) 2.2 % Normal . [facility] Comment on above: Performed By: #### A BG #### Point of Care testing , Erythrocyte distribution width (RBC) [Ratio] 14.9 % Normal 11.9-15.3 [facility] Comment on above: Performed By: #### A BG #### Point of Care testing , Hematocrit (Bld) [Volume fraction] 39.3 % Normal 34.0-46.4 [facility] Comment on above: Performed By: #### A BG #### Point of Care testing , Hemoglobin (Bld) [Mass/Vol] 13.3 g/dL Normal 11.8-15.4 [facility] Comment on above: Performed By: #### A BG #### Point of Care testing , Lymphocytes (Bld) [#/Vol] 1.3 10*3/uL Normal 1.00-4.8 [facility] Comment on above: Performed By: #### A BG #### Point of Care testing , Lymphocytes/100 WBC (Bld) 10.4 % Normal . [facility] Comment on above: Performed By: #### A BG #### Point of Care testing , MCH (RBC) [Entitic mass] 31.3 pg Normal 24.7-34.3 [facility] Comment on above: Performed By: #### A BG #### Point of Care testing , MCV (RBC) [Entitic vol] 92.2 fL Normal 80-100 [facility] Comment on above: Performed By: #### A BG #### Point of Care testing , Mean Corpuscular HGB Conc 33.9 g/dL Normal 32.0-35.0 [facility] Comment on above: Performed By: #### A BG #### Point of Care testing , Monocytes (Bld) [#/Vol] 0.4 10*3/uL Normal 0.0-0.8 [facility] Comment on above: Performed By: #### A BG #### Point of Care testing , Monocytes/100 WBC (Bld) 3.7 % Normal . [facility] Comment on above: Performed By: #### A BG #### Point of Care testing , Neutrophils (Bld) [#/Vol] 10.0 10*3/uL High 1.8-7.7 [facility] Comment on above: Performed By: #### A BG #### Point of Care testing , Neutrophils/100 WBC (Bld) 83.1 % Normal . [facility] Comment on above: Performed By: #### A BG #### Point of Care testing , NRBC% 0.3 /100{WBC} Normal 0-0.5 [facility] Comment on above: Performed By: #### A BG #### Point of Care testing , Platelet mean volume (Bld) [Entitic vol] 8.5 fL Normal 6.3-10.7 [facility] Comment on above: Performed By: #### A BG #### Point of Care testing , Platelets (Bld) [#/Vol] 276 10*3/uL Normal 150-450 [facility] Comment on above: Performed By: #### A BG #### Point of Care testing , RBC (Bld) [#/Vol] 4.26 10*6/uL Normal 3.60-5.00 [facility] Comment on above: Performed By: #### A BG #### Point of Care testing , WBC (Bld) [#/Vol] 12.0 10*3/uL High 3.8-11.6 [facility] Comment on above: Performed By: #### A BG #### Point of Care testing , Laboratory - CoagulationOrde red By: Boni Lincoln on 09-15-2022 PT Coag (PPP) [Time] 10.8 s 9.0-12.9 [facility] Platelet poor plasma interna tional normalized ratio (INR) by coagulation assay (relatOrdered By: Boni Lincoln on 09-15-2022 INR Coag (PPP) [Relative time] 0.9 {INR} [facility] Comment on above: INR Therapeutic Rang e [...] 3 Potassium [Moles/Vol] 4.6 mmol/L Normal 3.5-5.1 [facility] Comment on above: Result Comment: PERF ORMED BY: [place] [address] PATHOLOGIST WEB OPERATIONS ADMINISTRATOR PETER RAYO M.D. Performed By: #### R EDRAW NA, REDRAW K #### [facility] [address] [place] [address] Redraw Sodiumon 09-15-2022 Sodium [Moles/Vol] 141 mmol/L Normal 136-[address] [facility] Comment on above: Performed By: #### R EDRAW NA, REDRAW K #### [facility] [address] [place] [address] XR cervical spine 1Von 09-15 XR cervical spine 1V [facility] [address] XRay Report Signed Patient: Miriam German MR#: [id number] : 1955 Acct:[id number] Age/Sex: 67 / F ADM Date: 09/10/22 Loc: Room: [address] [place] [address] Type: ADM IN Attending Dr: Arnaud Max [...] Jr., DJose Eduardo09/15/2022 12:18 PM Dictation Location: [facility]--12 Transcribed By: [facility] 09/15/221217 Dictated By: Tom Coates Jr, DO 09/15/221217 Signed By: 09/15/22 121 [facility] Basic Metabolic Panelon 08-22 Anion gap [Moles/Vol] 10.4 mmol/L Normal 6.0-15.0 [place] Comment on above: Performed By: #### C BC, BMP #### [facility] [address] Calcium [Mass/Vol] 10.0 mg/dL Normal 8.6-10.[address] [facility] Comment on above: Performed By: #### C BC, BMP #### [facility] [address] Chloride [Moles/Vol] 103 mmol/L Normal 98-107 [facility] Comment on above: Performed By: #### C BC, BMP #### [facility] [address] [place] [id number] [place] CO2 [Moles/Vol] 31.3 mmol/L High 21.0-31.0 [facility] Comment on above: Performed By: #### C BC, BMP #### [facility] [address] [place] [id number] [place] Creatinine [Mass/Vol] 0.61 mg/dL Normal 0.60-1.20 [facility] Comment on above: Performed By: #### C BC, BMP #### [facility] [address] [place] [id number] [place] Creatinine Clr Calc Pharmacy 74.65 [facility] Comment on above: Result Comment: PERF ORMED BY: [place] [address] PATHOLOGIST WEB OPERATIONS ADMINISTRATOR PETER RAYO M.D. Performed By: #### C BC, BMP #### [place] [address] [place] GFR/1.73 sq M.predicted MDRD (S/P/Bld) [Vol rate/Area] mL/min/{1.73_m2} [facility] Comment on above: Performed By: #### C BC, BMP #### [address] Glucose [Mass/Vol] 126 mg/dL High 70-[address] [facility] Comment on above: Result Comment: [facility] Glucose Reference Range is dependent on time and content of last meal. Glucose of more than 200 mg/dL in a nonstressed, ambulatory subject supports the diagnosis of Diabetes Mellitus. ADA recommended reference range Performed By: #### C BC, BMP #### [address] Potassium [Moles/Vol] 4.7 mmol/L Normal 3.5-5.1 [facility] Comment on above: Performed By: #### C BC, BMP #### [place] [address] [place] Sodium [Moles/Vol] 140 mmol/L Normal 136-[address] [facility] Comment on above: Performed By: #### C BC, BMP #### [place] [address] [place] Urea nitrogen [Mass/Vol] 20 mg/dL Normal 7-25 [facility] Comment on above: Performed By: #### C BC, BMP #### [address] Complete Blood Count Auto Di ffon 09-14-2022 Basophils (Bld) [#/Vol] 0.0 10*3/uL Normal 0.0-0.2 [facility] Comment on above: Result Comment: PERF ORMED BY: [place] [address] PATHOLOGIST WEB OPERATIONS ADMINISTRATOR PETER RAYO M.D. Performed By: #### C BC, BMP #### [address] Basophils/100 WBC (Bld) 0.3 % Normal . [facility] Comment on above: Performed By: #### C BC, BMP #### [address] Eosinophils (Bld) [#/Vol] 0.0 10*3/uL Normal 0.0-0.45 [facility] Comment on above: Performed By: #### C COCO, BMP #### [address] Eosinophils/100 WBC (Bld) 0.3 % Normal . [facility] Comment on above: Performed By: #### C BC, BMP #### [address] Erythrocyte distribution width (RBC) [Ratio] 14.9 % Normal 11.9-15.3 [facility] Comment on above: Performed By: #### C BC, BMP #### [address] Hematocrit (Bld) [Volume fraction] 39.2 % Normal 34.0-46.4 [facility] Comment on above: Performed By: #### C BC, BMP #### [address] Hemoglobin (Bld) [Mass/Vol] 13.0 g/dL Normal 11.8-15.4 [facility] Comment on above: Performed By: #### C BC, BMP #### [address] Lymphocytes (Bld) [#/Vol] 0.9 10*3/uL Low 1.00-4.8 [facility] Comment on above: Performed By: #### C BC, BMP #### [place] [address] [place] Lymphocytes/100 WBC (Bld) 7.8 % Normal . [facility] Comment on above: Performed By: #### C BC, BMP #### [facility] [address] MCH (RBC) [Entitic mass] 30.8 pg Normal 24.7-34.3 [facility] Comment on above: Performed By: #### C BC, BMP #### [facility] [address] MCV (RBC) [Entitic vol] 92.9 fL Normal 80-100 [facility] Comment on above: Performed By: #### C BC, BMP #### [address] Mean Corpuscular HGB Conc 33.2 g/dL Normal 32.0-35.0 [facility] Comment on above: Performed By: #### C BC, BMP #### [address] Monocytes (Bld) [#/Vol] 0.5 10*3/uL Normal 0.0-0.8 [facility] Comment on above: Performed By: #### C BC, BMP #### [place] [address] [place] Monocytes/100 WBC (Bld) 4.4 % Normal . [facility] Comment on above: Performed By: #### C BC, BMP #### [place] [address] [place] Neutrophils (Bld) [#/Vol] 9.7 10*3/uL High 1.8-7.7 [facility] Comment on above: Performed By: #### C BC, BMP #### [address] Neutrophils/100 WBC (Bld) 87.2 % Normal . [facility] Comment on above: Performed By: #### C BC, BMP #### [address] NRBC% 0.0 /100{WBC} Normal 0-0.5 [facility] Comment on above: Performed By: #### C COCO, BMP #### [facility] [address] Platelet mean volume (Bld) [Entitic vol] 7.8 fL Normal 6.3-10.7 [facility] Comment on above: Performed By: #### C COCO, BMP #### [facility] [address] Platelets (Bld) [#/Vol] 239 10*3/uL Normal 150-450 [facility] Comment on above: Performed By: #### C COCO, BMP #### [address] RBC (Bld) [#/Vol] 4.22 10*6/uL Normal 3.60-5.00 [facility] Comment on above: Performed By: #### C COCO, BMP #### [address] WBC (Bld) [#/Vol] 11.1 10*3/uL Normal 3.8-11.6 [facility] Comment on above: Performed By: #### C COCO, BMP #### [address] Basic Metabolic Panelon 08-22 Anion gap [Moles/Vol] 11.0 mmol/L Normal 6.0-15.0 [place] Comment on above: Performed By: #### GABINO BENOIT K #### [address] Calcium [Mass/Vol] 10.3 mg/dL Normal 8.6-10.[address] [facility] Comment on above: Performed By: #### GABINO BENOIT K #### [address] Chloride [Moles/Vol] 101 mmol/L Normal 98-107 [facility] Comment on above: Performed By: #### GABINO BENOIT K #### [address] CO2 [Moles/Vol] 31.4 mmol/L High 21.0-31.0 [facility] Comment on above: Performed By: #### GABINO BENOIT #### [address] Creatinine [Mass/Vol] 0.46 mg/dL Low 0.60-1.20 [facility] Comment on above: Performed By: #### GABINO BENOIT #### [address] Creatinine Clr Calc Pharmacy 74.65 [facility] Comment on above: Result Comment: PERF ORMED BY: [place] [address] PATHOLOGIST WEB OPERATIONS ADMINISTRATOR PETER RAYO M.D. Performed By: #### GABINO BENOIT #### [address] GFR/1.73 sq M.predicted MDRD (S/P/Bld) [Vol rate/Area] mL/min/{1.73_m2} [facility] Comment on above: Performed By: #### GABINO BENOIT #### [address] Glucose [Mass/Vol] 100 mg/dL Normal 70-[address] [facility] Comment on above: Result Comment: [place] Glucose Reference Range is dependent on time and content of last meal. Glucose of more than 200 mg/dL in a nonstressed, ambulatory subject supports the diagnosis of Diabetes Mellitus. ADA recommended reference range Performed By: #### GABINO BENOIT #### [address] Potassium [Moles/Vol] 4.4 mmol/L Normal 3.5-5.1 [facility] Comment on above: Performed By: #### GABINO BENOIT #### [address] [place] [address] [place] Sodium [Moles/Vol] 139 mmol/L Normal 136-[address] [facility] Comment on above: Performed By: #### GABINO BENOIT #### [facility] [address] [place] [address] Urea nitrogen [Mass/Vol] 15 mg/dL Normal 7-25 [facility] Comment on above: Performed By: #### GABINO BENOIT #### [address] Complete Blood Count Auto Di ffon 09-13-2022 Basophils (Bld) [#/Vol] 0.0 10*3/uL Normal 0.0-0.2 [facility] Comment on above: Result Comment: PERF ORMED BY: [place] [address] PATHOLOGIST WEB OPERATIONS ADMINISTRATOR PETER RAYO M.D. Performed By: #### GABINO BENOIT #### [address] Basophils/100 WBC (Bld) 0.4 % Normal . [facility] Comment on above: Performed By: #### GABINO BENOIT #### [address] Eosinophils (Bld) [#/Vol] 0.0 10*3/uL Normal 0.0-0.45 [facility] Comment on above: Performed By: #### GABINO BENOIT #### [facility] [address] [place] [address] Eosinophils/100 WBC (Bld) 0.3 % Normal . [facility] Comment on above: Performed By: #### GABINO BENOIT #### [address] Erythrocyte distribution width (RBC) [Ratio] 14.7 % Normal 11.9-15.3 [facility] Comment on above: Performed By: #### GABINO BENOIT #### [address] Hematocrit (Bld) [Volume fraction] 38.6 % Normal 34.0-46.4 [facility] Comment on above: Performed By: #### GABINO BENOIT #### [address] Hemoglobin (Bld) [Mass/Vol] 13.0 g/dL Normal 11.8-15.4 [facility] Comment on above: Performed By: #### GABINO BENOIT #### [address] Lymphocytes (Bld) [#/Vol] 1.2 10*3/uL Normal 1.00-4.8 [facility] Comment on above: Performed By: #### GABINO BENOIT #### [address] Lymphocytes/100 WBC (Bld) 10.8 % Normal . [facility] Comment on above: Performed By: #### GABINO BENOIT #### [address] MCH (RBC) [Entitic mass] 31.2 pg Normal 24.7-34.3 [facility] Comment on above: Performed By: #### GABINO BENOIT #### [address] MCV (RBC) [Entitic vol] 92.6 fL Normal 80-100 [facility] Comment on above: Performed By: #### GABINO BENOIT #### [address] Mean Corpuscular HGB Conc 33.7 g/dL Normal 32.0-35.0 [facility] Comment on above: Performed By: #### GABINO BENOIT #### [place] [id number] [place] Monocytes (Bld) [#/Vol] 0.6 10*3/uL Normal 0.0-0.8 [facility] Comment on above: Performed By: #### GABINO BENOIT #### [facility] [address] [place] [address] Monocytes/100 WBC (Bld) 5.6 % Normal . [facility] Comment on above: Performed By: #### GABINO BENOIT #### [facility] [address] [place] [address] Neutrophils (Bld) [#/Vol] 9.2 10*3/uL High 1.8-7.7 [facility] Comment on above: Performed By: #### GABINO BENOIT #### [facility] [address] [place] [address] Neutrophils/100 WBC (Bld) 82.9 % Normal . [facility] Comment on above: Performed By: #### GABINO BENOIT #### [facility] [address] [place] [address] NRBC% 0.1 /100{WBC} Normal 0-0.5 [facility] Comment on above: Performed By: #### GABINO BENOIT #### [facility] [address] [place] [address] Platelet mean volume (Bld) [Entitic vol] 7.5 fL Normal 6.3-10.7 [facility] Comment on above: Performed By: #### GABINO BENOIT #### [facility] [address] [place] [address] [place] Platelets (Bld) [#/Vol] 234 10*3/uL Normal 150-450 [facility] Comment on above: Performed By: #### GABINO BENOIT #### [facility] [address] [place] [address] [place] RBC (Bld) [#/Vol] 4.18 10*6/uL Normal 3.60-5.00 [facility] Comment on above: Performed By: #### R GABINO EPPERSON #### [address] WBC (Bld) [#/Vol] 11.1 10*3/uL Normal 3.8-11.6 [facility] Comment on above: Performed By: #### R GABINO EPPERSON #### [address] ABO/Rh Retypeon 09-12-2022 ABO/RH Recheck Result Positive Normal [facility] Comment on above: Result Comment: PERF ORMED BY: [place] [address] PATHOLOGIST WEB OPERATIONS ADMINISTRATOR PETER RAYO M.D. Arterial Blood Gason 023 ABG Base Excess 3.6 mmol/L High -3.0-3.0 [facility] Comment on above: Performed By: #### A BG #### Point of Care testing , ABG Frac Inspired O2 32 % Normal [facility] Comment on above: Performed By: #### A BG #### Point of Care testing , ABG Oxygen Content 8.4 mmol/L Normal 6.6-9.[address] [facility] Comment on above: Performed By: #### A BG #### Point of Care testing , ABG Oxygen Saturation 98.5 % Normal 95.0-100.0 [facility] Comment on above: Performed By: #### A BG #### Point of Care testing , ABG PCO2 50.6 mm[Hg] Off scale high 35.0-45.0 [facility] Comment on above: Performed By: #### A BG #### Point of Care testing , ABG PH 7.39 Normal 7.35-7.45 [facility] Comment on above: Performed By: #### A BG #### Point of Care testing , ABG PO2 129.8 mm[Hg] Off scale high 80.0-100.0 [facility] Comment on above: Performed By: #### A BG #### Point of Care testing , CO2 [Moles/Vol] 31.2 mmol/L High 23.0-27.0 [facility] Comment on above: Performed By: #### A BG #### Point of Care testing , HCO3 (Bld) [Moles/Vol] 29.6 mmol/L High 23.0-29.0 [facility] Comment on above: Performed By: #### A BG #### Point of Care testing , Oxygen Device Nasal Cannula Normal [facility] Comment on above: Performed By: #### A BG #### Point of Care testing , Respiratory Critical Normal [facility] Comment on above: Result Comment: Crit ical Value called on: 09/12/2022 at 05:34 PERFORMED BY: [place] [address] PATHOLOGIST WEB OPERATIONS ADMINISTRATOR PETER RAYO M.D. Performed By: #### A BG #### Point of Care testing , VBG Draw Site Left Radial Normal [facility] Comment on above: Performed By: #### A BG #### Point of Care testing , Basic Metabolic Panelon 08-22 Anion gap [Moles/Vol] 9.7 mmol/L Normal 6.0-15.0 [facility] Comment on above: Performed By: #### B MP, CBC #### [facility] [address] [place] [address] [place] Calcium [Mass/Vol] 10.0 mg/dL Normal 8.6-10.[address] [facility] Comment on above: Performed By: #### B MP, CBC #### [facility] [address] [place] [address] [place] Chloride [Moles/Vol] 101 mmol/L Normal 98-107 [facility] Comment on above: Performed By: #### B MP, CBC #### [facility] [address] [place] [address] [place] CO2 [Moles/Vol] 33.2 mmol/L High 21.0-31.0 [facility] Comment on above: Performed By: #### B MP, CBC #### [facility] [address] [place] [address] [place] Creatinine [Mass/Vol] 0.46 mg/dL Low 0.60-1.20 [facility] Comment on above: Performed By: #### B MP, CBC #### [facility] [address] [place] [address] [place] Creatinine Clr Calc Pharmacy 72.70 [facility] Comment on above: Result Comment: PERF ORMED BY: [facility] [address] [place] [address] PATHOLOGIST WEB OPERATIONS ADMINISTRATOR PETER RAYO M.D. Performed By: #### B MP, CBC #### [place] [address] [place] GFR/1.73 sq M.predicted MDRD (S/P/Bld) [Vol rate/Area] mL/min/{1.73_m2} [facility] Comment on above: Performed By: #### B MP, CBC #### [place] [address] [place] Glucose [Mass/Vol] 119 mg/dL High 70-[address] [facility] Comment on above: Result Comment: [facility] Glucose Reference Range is dependent on time and content of last meal. Glucose of more than 200 mg/dL in a nonstressed, ambulatory subject supports the diagnosis of Diabetes Mellitus. ADA recommended reference range Performed By: #### B MP, CBC #### [facility] [address] [place] [address] [place] Potassium [Moles/Vol] 4.9 mmol/L Normal 3.5-5.1 [facility] Comment on above: Performed By: #### B MP, CBC #### [facility] [address] [place] [address] [place] Sodium [Moles/Vol] 139 mmol/L Normal 136-[address] [facility] Comment on above: Performed By: #### B MP, CBC #### [place] [address] [place] Urea nitrogen [Mass/Vol] 17 mg/dL Normal 7-25 [facility] Comment on above: Performed By: #### B MP, CBC #### [address] Complete Blood Count Auto Di ffon 09-12-2022 Basophils (Bld) [#/Vol] 0.1 10*3/uL Normal 0.0-0.2 [facility] Comment on above: Result Comment: PERF ORMED BY: [place] [address] PATHOLOGIST WEB OPERATIONS ADMINISTRATOR PETER RAYO M.D. Performed By: #### B MP, CBC #### [address] Basophils/100 WBC (Bld) 0.5 % Normal . [facility] Comment on above: Performed By: #### B MP, CBC #### [address] Eosinophils (Bld) [#/Vol] 0.0 10*3/uL Normal 0.0-0.45 [facility] Comment on above: Performed By: #### B MP, CBC #### [address] Eosinophils/100 WBC (Bld) 0.2 % Normal . [facility] Comment on above: Performed By: #### B MP, CBC #### [address] Erythrocyte distribution width (RBC) [Ratio] 14.5 % Normal 11.9-15.3 [facility] Comment on above: Performed By: #### B MP, CBC #### [address] Hematocrit (Bld) [Volume fraction] 39.2 % Normal 34.0-46.4 [facility] Comment on above: Performed By: #### B MP, CBC #### [address] Hemoglobin (Bld) [Mass/Vol] 13.1 g/dL Normal 11.8-15.4 [facility] Comment on above: Performed By: #### B MP, CBC #### [facility] [address] [place] [address] [place] Lymphocytes (Bld) [#/Vol] 1.0 10*3/uL Normal 1.00-4.8 [facility] Comment on above: Performed By: #### B MP, CBC #### [facility] [address] Lymphocytes/100 WBC (Bld) 8.0 % Normal . [facility] Comment on above: Performed By: #### B MP, CBC #### [facility] [address] MCH (RBC) [Entitic mass] 30.8 pg Normal 24.7-34.3 [facility] Comment on above: Performed By: #### B MP, CBC #### [facility] [address] MCV (RBC) [Entitic vol] 92.3 fL Normal 80-100 [facility] Comment on above: Performed By: #### B MP, CBC #### [facility] [address] Mean Corpuscular HGB Conc 33.3 g/dL Normal 32.0-35.0 [facility] Comment on above: Performed By: #### B MP, CBC #### [facility] [address] [place] [address] [place] Monocytes (Bld) [#/Vol] 0.6 10*3/uL Normal 0.0-0.8 [facility] Comment on above: Performed By: #### B MP, CBC #### [facility] [address] [place] [address] [place] Monocytes/100 WBC (Bld) 4.8 % Normal . [facility] Comment on above: Performed By: #### B MP, CBC #### [facility] [address] Neutrophils (Bld) [#/Vol] 10.3 10*3/uL High 1.8-7.7 [facility] Comment on above: Performed By: #### B MP, CBC #### [address] Neutrophils/100 WBC (Bld) 86.5 % Normal . [facility] Comment on above: Performed By: #### B MP, CBC #### [address] NRBC% 0.0 /100{WBC} Normal 0-0.5 [facility] Comment on above: Performed By: #### B MP, CBC #### [address] Platelet mean volume (Bld) [Entitic vol] 7.5 fL Normal 6.3-10.7 [facility] Comment on above: Performed By: #### B MP, CBC #### [address] Platelets (Bld) [#/Vol] 223 10*3/uL Normal 150-450 [facility] Comment on above: Performed By: #### B MP, CBC #### [address] RBC (Bld) [#/Vol] 4.25 10*6/uL Normal 3.60-5.00 [facility] Comment on above: Performed By: #### B MP, CBC #### [address] WBC (Bld) [#/Vol] 11.9 10*3/uL High 3.8-11.6 [facility] Comment on above: Performed By: #### B MP, CBC #### [address] Laboratory - Chemistry and C hemistry - challengeOrdered By: Boni Lincoln on 09-12-2022 CO2 [Moles/Vol] 31.2 mmol/L 23.0-27.0 [facility] HCO3 (Bld) [Moles/Vol] 29.6 mmol/L 23.0-29.0 [facility] No Panel InformationOrdered By: Boni Lincoln on 09-12-2022 Arterial Blood Base Excess 3.6 mmol/L -3.0-3.0 [facility] Arterial Blood Oxygen Content 8.4 mmol/L 6.6-9.7 [facility] Arterial Blood Oxygen Saturation 98.5 % 95.0-100.0 [facility] Arterial Blood Partial Pressure CO2 50.6 mm[Hg] 35.0-45.0 [facility] Arterial Blood Partial Pressure O2 129.8 mm[Hg] 80.0-100.0 [facility] Arterial Blood pH 7.39 7.35-7.45 [facility] Blood Gas Critical Value See comment [facility] Comment on above: Critical Value bolivar d on: 09/12/2022 at 05:34 Blood Gas Sample Site Left radial [place] FiO2 32 % [facility] Oxygen Delivery Device Nasal cannula [facility] Type and Screenon 09-12-2022 ABO and Rh group Nom (Bld) Blood group A Rh(D) positive Normal [facility] Comment on above: Result Comment: PERF ORMED BY: [facility] [address] [place] [address] PATHOLOGIST WEB OPERATIONS ADMINISTRATOR PETER RAYO M.D. Basic Metabolic Panelon 08-22 Anion gap [Moles/Vol] 9.2 mmol/L Normal 6.0-15.0 [facility] Comment on above: Performed By: #### A BG #### Point of Care testing , Calcium [Mass/Vol] 9.9 mg/dL Normal 8.6-10.[address] [facility] Comment on above: Performed By: #### A BG #### Point of Care testing , Chloride [Moles/Vol] 103 mmol/L Normal 98-107 [facility] Comment on above: Performed By: #### A BG #### Point of Care testing , CO2 [Moles/Vol] 31.9 mmol/L High 21.0-31.0 [facility] Comment on above: Performed By: #### A BG #### Point of Care testing , Creatinine [Mass/Vol] 0.51 mg/dL Low 0.60-1.20 [facility] Comment on above: Performed By: #### A BG #### Point of Care testing , Creatinine Clr Calc Pharmacy 72.70 [facility] Comment on above: Result Comment: PERF ORMED BY: [facility] [address] [place] [address] PATHOLOGIST WEB OPERATIONS ADMINISTRATOR PETER RAYO M.D. Performed By: #### A BG #### Point of Care testing , GFR/1.73 sq M.predicted MDRD (S/P/Bld) [Vol rate/Area] mL/min/{1.73_m2} [facility] Comment on above: Performed By: #### A BG #### Point of Care testing , Glucose [Mass/Vol] 116 mg/dL High 70-[address] [facility] Comment on above: Result Comment: [place] Glucose Reference Range is dependent on time and content of last meal. Glucose of more than 200 mg/dL in a nonstressed, ambulatory subject supports the diagnosis of Diabetes Mellitus. ADA recommended reference range Performed By: #### A BG #### Point of Care testing , Potassium [Moles/Vol] 4.1 mmol/L Normal 3.5-5.1 [facility] Comment on above: Performed By: #### A BG #### Point of Care testing , Sodium [Moles/Vol] 140 mmol/L Normal 136-[address] [facility] Comment on above: Performed By: #### A BG #### Point of Care testing , Urea nitrogen [Mass/Vol] 18 mg/dL Normal 7-25 [facility] Comment on above: Performed By: #### A BG #### Point of Care testing , Complete Blood Count Auto Di ffon 09-11-2022 Basophils (Bld) [#/Vol] 0.0 10*3/uL Normal 0.0-0.2 [facility] Comment on above: Result Comment: PERF ORMED BY: [facility] [address] [place] [address] PATHOLOGIST WEB OPERATIONS ADMINISTRATOR PETER RAYO M.D. Performed By: #### A BG #### Point of Care testing , Basophils/100 WBC (Bld) 0.5 % Normal . [facility] Comment on above: Performed By: #### A BG #### Point of Care testing , Eosinophils (Bld) [#/Vol] 0.0 10*3/uL Normal 0.0-0.45 [facility] Comment on above: Performed By: #### A BG #### Point of Care testing , Eosinophils/100 WBC (Bld) 0.0 % Normal . [facility] Comment on above: Performed By: #### A BG #### Point of Care testing , Erythrocyte distribution width (RBC) [Ratio] 14.5 % Normal 11.9-15.3 [facility] Comment on above: Performed By: #### A BG #### Point of Care testing , Hematocrit (Bld) [Volume fraction] 37.6 % Normal 34.0-46.4 [facility] Comment on above: Performed By: #### A BG #### Point of Care testing , Hemoglobin (Bld) [Mass/Vol] 12.7 g/dL Normal 11.8-15.4 [facility] Comment on above: Performed By: #### A BG #### Point of Care testing , Lymphocytes (Bld) [#/Vol] 0.8 10*3/uL Low 1.00-4.8 [facility] Comment on above: Performed By: #### A BG #### Point of Care testing , Lymphocytes/100 WBC (Bld) 7.6 % Normal . [facility] Comment on above: Performed By: #### A BG #### Point of Care testing , MCH (RBC) [Entitic mass] 31.3 pg Normal 24.7-34.3 [facility] Comment on above: Performed By: #### A BG #### Point of Care testing , MCV (RBC) [Entitic vol] 92.5 fL Normal 80-100 [facility] Comment on above: Performed By: #### A BG #### Point of Care testing , Mean Corpuscular HGB Conc 33.9 g/dL Normal 32.0-35.0 [facility] Comment on above: Performed By: #### A BG #### Point of Care testing , Monocytes (Bld) [#/Vol] 0.6 10*3/uL Normal 0.0-0.8 [facility] Comment on above: Performed By: #### A BG #### Point of Care testing , Monocytes/100 WBC (Bld) 5.7 % Normal . [facility] Comment on above: Performed By: #### A BG #### Point of Care testing , Neutrophils (Bld) [#/Vol] 9.4 10*3/uL High 1.8-7.7 [facility] Comment on above: Performed By: #### A BG #### Point of Care testing , Neutrophils/100 WBC (Bld) 86.2 % Normal . [facility] Comment on above: Performed By: #### A BG #### Point of Care testing , NRBC% 0.1 /100{WBC} Normal 0-0.5 [facility] Comment on above: Performed By: #### A BG #### Point of Care testing , Platelet mean volume (Bld) [Entitic vol] 7.5 fL Normal 6.3-10.7 [facility] Comment on above: Performed By: #### A BG #### Point of Care testing , Platelets (Bld) [#/Vol] 221 10*3/uL Normal 150-450 [facility] Comment on above: Performed By: #### A BG #### Point of Care testing , RBC (Bld) [#/Vol] 4.07 10*6/uL Normal 3.60-5.00 [facility] Comment on above: Performed By: #### A BG #### Point of Care testing , WBC (Bld) [#/Vol] 10.9 10*3/uL Normal 3.8-11.6 [facility] Comment on above: Performed By: #### A BG #### Point of Care testing , ECG 12 lead ECGon 09-11-2022 ECG 12 [place] [address] Electrocardiograph Report Signed Patient: Miriam German MR#: [id number] : 1955 Acct:[id number] Age/Sex: 67 / F ADM Date: 09/10/22 Loc: Room: [address] [place] [address] Type: DIS IN Attending Dr: Arnaud Max [...] previous ECGs available Confirmed by MACIEL BUSTILLOS [facility], ZEHRA ([id number]) on 09/17/2022 4:54:24 PM Referred By: Electronically Signed By:ZEHRA ST MD [facility] Transcribed By: MUS Signed By Zehra St MD, [facility] 09/17/22 1654 [facility] MR cervical spine wo conon 0 09-11-2022 MR cervical spine wo con [facility] Main [place] [id number] MRI Report Signed Patient: Miriam German MR#: [id number] : 1955 Acct:[id number] Age/Sex: 67 / F ADM Date: 09/10/22 Loc: Room: [address] [place] [address] Type: ADM IN Attending Dr: Boni Lincoln [...] MD 09/11/22 1055 Signed By: 09/11/22 1109 [facility] XR chest 1V portableon 09-11 XR chest 1V portable [facility] Main [place] [address] [place] [address] XRay Report Signed Patient: Miriam German MR#: [id number] : 1955 Acct:[id number] Age/Sex: 67 / F ADM Date: 09/10/22 Loc: Room: [address] [place] [address] Type: ADM IN Attending Dr: Boni Lincoln DO Copies to: Julia Smyth APRN, ACNP-BC Boni Lincoln DO Ordering Provider: Julia Smyth APRN, [facility] Date of Service: 09/11/22 XR/XR chest 1V [...] Coates Jr., D.ONick09/11/2022 4:06 PM Dictation Location: [facility]--15 Transcribed By: BRUNA 09/11/22 1606 Dictated By: Tom Coates Jr, DO 09/11/22 1602 Signed By: 09/11/22 1606 [facility] Progress Noteson 09-06-2022 [employer] Authentication Interface Message Text EMERGENCY TRIAGE, TREAT AND TRANSPORT (ET3) DOCUMENTATION OF TELEHEALTH VISIT Date / Time: 09/05/2022 / 1515 Name: Miriam German : 1955 SSN: [id number] EMS Agency: [facility] [x] Verbal consent obtained [] [...] by: Mumtaz Jean Baptiste, DO Normal [facility] [employer] Krista Fowler 08-10-2022 Krista BLAND ----- Final No anaerobic growth after 72 hrs. Normal [facility] Comment on above: Performed By: #### A NAC #### [place] [address] .BF Cell Cnt RBC Mon 023 Fluid RBC Count 85022 /mcL Normal [facility] Comment on above: Performed By: #### C [id number] #### [place] [address] .BF Cell Cnt WBC Mon 023 Fluid WBC Count 1025 /mcL Normal [facility] Comment on above: Performed By: #### . Body Fluid Cell Count WBC Manual #### [place] [address] .BF Diffon 08-07-2022 Fluid Mononuclear Cells 85 % Normal [facility] Comment on above: Performed By: #### . Body Fluid Differential #### [place] [address] Fluid Other Cells 4 % Normal [facility] Comment on above: Performed By: #### . Body Fluid Differential #### [place] [address] Fluid Polynuclear Cells 11 % Normal [facility] Comment on above: Performed By: #### . Body Fluid Differential #### [place] [address] BF Cell Counton 08-07-2022 Body Fluid Cell Cnt Type Misc Fld Normal [facility] Comment on above: Order Comment: RIGHT Shoulder Joint Fluid Performed By: #### F LCC #### [place] [address] C Sterile BFon 08-07-2022 C Sterile BF RIGHT Shoulder Joint Fluid Final No growth at 48 hours. Gram Stain Few White Blood Cells No organisms seen. Normal [facility] Comment on above: Performed By: #### C SBF #### [facility] ([facility]) [address] [place] [address] [facility] [address] [place] [address] Crystalson 08-07-2022 Fluid For Crystal Analysis NoCrystals Seen Normal NoCrystals Seen [facility] Comment on above: Performed By: #### F LCA #### [facility] [address] [place] [address] MRI Shoulder w/o Contrast [facility] 06-19-2022 MRI Shoulder w/o Contrast Right [...] Electronically Signed in Other Vendor System) Normal [facility] CT LUNG CANCER SCREENINGon 0 05-13-2022 [...] ZAN HARRIS Date: 2022-05-13 09:42 Normal [facility] RHEUMATOID FACTORon 05-11-19 23 RA Latex Turbid. >650.0 Critically high <14.0 [facility] Comment on above: Result Comment: Resu lts confirmed on dilution. Performed By: #### P OCGLUC #### [facility] [address] [place] [address] Dr. Laila Castle Basic Metabolic Panelon 04-23 Basic Metabolic Panel [facility] [employer] Other CBC AUTO DIFFon 05-10-2022 BASO # 0.0 103/ul Normal 0.0-0.1 [facility] Comment on above: Performed By: #### C MP #### [facility] [address] [place] [address] Dr. Laila Castle Basophils/100 WBC (Bld) 0.3 % Normal 0.2-2.0 [facility] Comment on above: Performed By: #### C MP #### [facility] [address] [place] [address] Dr. Laila Castle EO # 0.1 103/ul Normal 0.0-0.7 [facility] Comment on above: Performed By: #### C MP #### [facility] [address] [place] [address] Dr. Laila Castle Eosinophils/100 WBC (Bld) 0.5 % Critically low 0.9-7.0 [facility] Comment on above: Performed By: #### C MP #### [facility] [address] [place] [address] Dr. Laila Castle Erythrocyte distribution width (RBC) [Ratio] 14.1 % Normal 11.0-15.0 [facility] Comment on above: Performed By: #### C MP #### [facility] [address] [place] [address] Dr. Laila Castle Hematocrit (Bld) [Volume fraction] 40.9 % Normal 36.0-48.0 [facility] Comment on above: Performed By: #### C MP #### [facility] [address] [place] [address] Dr. Laila Csatle Hemoglobin (Bld) [Mass/Vol] 12.8 g/dL Normal 12.0-16.0 [facility] Comment on above: Performed By: #### C MP #### [facility] [address] [place] [address] Dr. Laila Castle IG # 0.11 10e3/ul Critically high 0.00-0.03 [facility] Comment on above: Performed By: #### C MP #### [facility] [address] [place] [address] Dr. Laila Castle IG % 1.2 % Critically high 0.0-0.5 [facility] Comment on above: Performed By: #### C MP #### [facility] [address] [place] [address] Dr. Laila Castle LYMPH # 1.0 103/ul Critically low 1.2-3.8 [facility] Comment on above: Performed By: #### C MP #### [facility] [address] [place] [address] Dr. Laila Castle Lymphocytes/100 WBC (Bld) 10.0 % Critically low 20.5-60.0 [facility] Comment on above: Performed By: #### C MP #### [facility] [address] [place] [address] Dr. Laila Castle MANUAL DIFF REQ NO Normal [facility] Comment on above: Performed By: #### C MP #### [facility] [address] [place] [address] Dr. Laila Castle MCH (RBC) [Entitic mass] 30.3 pg Normal 26.7-34.0 [facility] Comment on above: Performed By: #### C MP #### [facility] [address] [place] [address] [address] Laila Castle MCHC (RBC) [Mass/Vol] 31.3 g/dL Normal 29.9-35.2 [facility] Comment on above: Performed By: #### C MP #### [facility] [address] [place] [address] [address] Laila Castle MCV (RBC) [Entitic vol] 96.7 fL Normal 81.0-99.0 [facility] Comment on above: Performed By: #### C MP #### [facility] [address] [place] [address] Dr. Laila Castle MONO # 0.6 103/ul Normal 0.3-0.8 [facility] Comment on above: Performed By: #### C MP #### [facility] [address] [place] [address] [address] Laila Castle Monocytes/100 WBC (Bld) 6.5 % Normal 1.7-12.0 [facility] Comment on above: Performed By: #### C MP #### [facility] [address] [place] [address] Dr. Laila Castle NEUT # 7.8 103/ul Critically high 1.4-6.5 [facility] Comment on above: Performed By: #### C MP #### [facility] [address] [place] [address] [address] Laila Castle Neutrophils/100 WBC (Bld) 81.5 % Critically high 43.0-75.0 [facility] Comment on above: Performed By: #### C MP #### [facility] [address] [place] [address] [address] Laila Castle Platelet mean volume (Bld) [Entitic vol] 9.5 fL Normal 9.5-13.5 [facility] Comment on above: Performed By: #### C MP #### [facility] [address] [place] [address] Dr. Laila Castle PLT 217 103/ul Normal 150-450 [facility] Comment on above: Performed By: #### C MP #### [facility] [address] [place] [address] Dr. Laila Castle RBC 4.23 106/ul Normal 4.20-5.40 [facility] Comment on above: Performed By: #### C MP #### [facility] [address] [place] [address] Dr. Laila Castle WBC 9.6 103/ul Normal 4.0-11.0 [facility] Comment on above: Performed By: #### C MP #### [facility] [address] [place] [address] Dr. Laila Castle Complete Blood Count and Dif mandeep 05-10-2022 Anisocytosis Ql (Bld) [facility] [employer] Other Basophilic stippling LM Ql (d) [facility] [employer] Other RBC morphology finding Nom (d) [facility] [employer] Other PROF CHEM 8 (BAS METB)on Anion gap [Moles/Vol] 11.2 mmol/L Normal [facility] Comment on above: Performed By: #### C MP #### [facility] [address] [place] [address] Dr. Laila Castle Calcium [Mass/Vol] 10.3 mg/dL Critically high 8.5-10.1 [facility] Comment on above: Performed By: #### C MP #### [facility] [address] [place] [address] Dr. Laila Castle Chloride [Moles/Vol] 106 mmol/L Normal 98-107 [facility] Comment on above: Performed By: #### C MP #### [facility] [address] [place] [address] Dr. Laila Castle CO2 [Moles/Vol] 31.2 mmol/L Normal 21.0-32.[address] [facility] Comment on above: Performed By: #### C MP #### [facility] [address] [place] [address] [address] Laila Castle Creatinine [Mass/Vol] 0.59 mg/dL Normal 0.55-1.02 [facility] Comment on above: Performed By: #### C MP #### [facility] [address] [place] [address] [address] Laila Castle EGFR-AF GAMBIAN >60 Normal >=[address] [facility] Comment on above: Performed By: #### C MP #### [facility] [address] [place] [address] [address] Laila Castle EGFR-NON AF GAMBIAN >60 Normal >=60 [facility] Comment on above: Performed By: #### C MP #### [facility] [address] [place] [address] [address] Laila Castle Glucose [Mass/Vol] 90 mg/dL Normal 74-106 [facility] Comment on above: Performed By: #### C MP #### [facility] [address] [place] [address] [address] Laila Castle Potassium [Moles/Vol] 4.4 mmol/L Normal 3.5-5.1 [facility] Comment on above: Performed By: #### C MP #### [facility] [address] [place] [address] [address] Laila Castle Sodium [Moles/Vol] 144 mmol/L Normal 136-145 [facility] Comment on above: Performed By: #### C MP #### [facility] [address] [place] [address] [address] Laila Castle Urea nitrogen [Mass/Vol] 12.0 mg/dL Normal 7.0-18.0 [facility] Comment on above: Performed By: #### C MP #### [facility] [address] [place] [address] Dr. Laila Castle Urea nitrogen/Creatinine [Mass ratio] 20.3 mg/mg Normal [facility] Comment on above: Performed By: #### C MP #### [facility] [address] [place] [address] [address] Laila Castle [facility] SED RATE 42 mm/hr Critically high <=30 [facility] Comment on above: Performed By: #### C MP #### [facility] [address] [place] [address] [address] Laila Castle TSHon 05-10-2022 TSH 0.528 uIU/mL Normal 0.358-3.740 [facility] Comment on above: Performed By: #### C MP #### [facility] [address] [place] [address] [address] Laila Castle VITAMIN D 25 OHon 05-10-2022 VIT D 25-OH 66.2 ng/mL Normal [facility] Comment on above: Performed By: #### V ITAD #### [facility] [address] [place] [address] [address] Laila Castle VIT D RANGES SEE BELOW Normal [facility] Comment on above: Result Comment: <20 ng/mL Vit D deficient 20 - <30 ng/mL Vit D insufficient 30 - 100 ng/mL Vit D sufficient >100 ng/mL Potential Toxicity Performed By: #### V ITAD #### [facility] [address] [place] [address] [address] Laila Castle C-Reactive Proteinon 023 CRP [Mass/Vol] 4.7 mg/L Normal 0.0-5.0 [facility] Comment on above: Performed By: #### C RP, CDP, SED #### [facility] [place] [address] Blood Bank Booking Clerk: Chriss Townsend MD CRP High sensitivity method [Mass/Vol] 4.7 mg/L 0.0 - 5.0 mg/L [facility] CBC with Auto Differentialon 05-08-2022 Absolute Eos # [facility] [employer] Absolute Immature Granulocyte 0.12 [facility] Absolute Lymph # 1.23 [facility] [employer] Absolute [place] # 0.62 [facility] [employer] Basophils (Bld) [#/Vol] 0.03 10*3/uL [facility] [employer] Basophils/100 WBC (Bld) 0 % 0 - 2 % [facility] Eosinophils/100 WBC (Bld) 0 % Low 1 - 4 % [facility] Hematocrit (Bld) [Volume fraction] 44.0 % 36.3 - 47.1 % [facility] Hemoglobin (Bld) [Mass/Vol] 13.6 g/dL 11.9 - 15.1 g/dL [facility] Immature granulocytes/100 WBC (Bld) 1 % High 0 [facility] Interpretation and review of laboratory results Abnormal [facility] Lymphocytes/100 WBC (Bld) 11 % Low 24 - 43 % [facility] MCH (RBC) [Entitic mass] 30.6 pg 25.2 - 33.5 pg [facility] MCHC (RBC) [Mass/Vol] 30.9 g/dL 28.4 - 34.8 g/dL [facility] MCV (RBC) [Entitic vol] 98.9 fL 82.6 - 102.9 fL [facility] Monocytes/100 WBC (Bld) 6 % 3 - 12 % [facility] NRBC Automated 0.0 0.0 per 100 WBC [facility] Platelet distribution width (Bld) [Ratio] 14.2 % 11.8 - 14.4 % [facility] Platelet mean volume (Bld) [Entitic vol] 9.5 fL 8.1 - 13.5 fL [facility] Platelets (Bld) [#/Vol] 231 10*3/uL [facility] RBC (Bld) [#/Vol] 4.45 10*6/uL 3.95 - 5.1 1 m/uL [facility] Segmented neutrophils/100 WBC (Bld) 82 % High 36 - 65 % [facility] Segs Absolute 9.31 High [facility] WBC (Bld) [#/Vol] 11.3 10*3/uL [facility] CBC with Diffon 05-08-2022 Abs. Basophil 0.03 k/uL Normal 0.00-0.20 [facility] Comment on above: Performed By: #### C RP, CDP, SED #### [address] [address] Blood Bank Booking Clerk: Chriss Townsend MD Abs. Eosinophil <0.03 Normal 0.00-0.44 [facility] Comment on above: Performed By: #### C RP, CDP, SED #### [facility] [employer] [address] [place] [address] Blood Bank Booking Clerk: Chriss Townsend MD Abs.Imm.Granulocyte 0.12 k/uL Normal 0.00-0.30 [facility] Comment on above: Performed By: #### C RP, CDP, SED #### [facility] [employer] [address] [place] [address] [employer] Booking Clerk: Chriss Townsend MD Abs.Neutrophil (Seg) 9.31 k/uL High 1.50-8.10 [facility] Comment on above: Performed By: #### C RP, CDP, SED #### [facility] [employer] [address] [place] [address] [employer] Booking Clerk: Chriss Townsend MD Basophils/100 WBC (Bld) 0 % Normal 0-2 [facility] Comment on above: Performed By: #### C RP, CDP, SED #### [facility] [employer] [address] [place] [address] [employer] Booking Clerk: Chriss Townsend MD Eosinophils/100 WBC (Bld) 0 % Low 1-4 [facility] Comment on above: Performed By: #### C RP, CDP, SED #### [facility] [employer] [address] [place] [address] [employer] Booking Clerk: Chriss Townsend MD Erythrocyte distribution width (RBC) [Ratio] 14.2 % Normal 11.8-14.4 [facility] Comment on above: Performed By: #### C RP, CDP, SED #### [facility] [employer] [address] [place] [address] [employer] Booking Clerk: Chriss Townsend MD Hematocrit (Bld) [Volume fraction] 44.0 % Normal 36.3-47.1 [facility] Comment on above: Performed By: #### C RP, CDP, SED #### [address] [address] [employer] Booking Clerk: Chriss Townsend MD Hemoglobin (Bld) [Mass/Vol] 13.6 g/dL Normal 11.9-15.1 [facility] Comment on above: Performed By: #### C RP, CDP, SED #### [address] [address] [employer] Bank Booking Clerk: Chriss Townsend MD Immature granulocytes/100 WBC (Bld) 1 % High 0 [facility] Comment on above: Performed By: #### C RP, CDP, SED #### [address] [address] Blood Bank Booking Clerk: Chriss Townsend MD Lymphocytes (Bld) [#/Vol] 1.23 10*3/uL Normal 1.10-3.70 [facility] Comment on above: Performed By: #### C RP, CDP, SED #### [address] [address] Blood Bank Booking Clerk: Chriss Townsend MD Lymphocytes/100 WBC (Bld) 11 % Low 24-43 [facility] Comment on above: Performed By: #### C RP, CDP, SED #### [facility] [employer] [address] [place] [address] Blood [employer] Booking Clerk: Chriss Townsend MD MCH (RBC) [Entitic mass] 30.6 pg Normal 25.2-33.5 [facility] Comment on above: Performed By: #### C RP, CDP, SED #### [facility] [employer] [address] [place] [address] Blood Bank Booking Clerk: Chriss Townsend MD MCHC (RBC) [Mass/Vol] 30.9 g/dL Normal 28.4-34.8 [facility] Comment on above: Performed By: #### C RP, CDP, SED #### [address] [address] Blood Bank Booking Clerk: Chriss Townsend MD MCV (RBC) [Entitic vol] 98.9 fL Normal 82.6-102.9 [facility] Comment on above: Performed By: #### C RP, CDP, SED #### [address] [address] Blood Bank Booking Clerk: Chriss Townsend MD Monocytes (Bld) [#/Vol] 0.62 10*3/uL Normal 0.10-1.20 [facility] Comment on above: Performed By: #### C RP, CDP, SED #### [place] [address] Blood Bank Booking Clerk: Chriss Townsend MD Monocytes/100 WBC (Bld) 6 % Normal 3-12 [facility] Comment on above: Performed By: #### C RP, CDP, SED #### [address] [address] Blood Bank Booking Clerk: Chriss Townsend MD Neutrophil (Seg) 82 % High 36-65 [facility] Comment on above: Performed By: #### C RP, CDP, SED #### [place] [address] Blood Bank Booking Clerk: Chriss Townsend MD NRBC Automated 0.0 per 100 WBC Normal 0.0 [facility] Comment on above: Performed By: #### C RP, CDP, SED #### [address] [address] Blood Bank Booking Clerk: Chriss Townsend MD Platelet mean volume (Bld) [Entitic vol] 9.5 fL Normal 8.1-13.5 [facility] Comment on above: Performed By: #### C RP, CDP, SED #### [facility] [address] [place] [address] Blood Bank Booking Clerk: Chriss Townsend MD Platelets (Bld) [#/Vol] 231 10*3/uL Normal 138-453 [facility] Comment on above: Performed By: #### C RP, CDP, SED #### [facility] [address] [place] [address] Blood Bank Booking Clerk: Chriss Townsend MD RBC (Bld) [#/Vol] 4.45 10*6/uL Normal 3.95-5.11 [facility] Comment on above: Performed By: #### C RP, CDP, SED #### [facility] [employer] [address] [place] [address] Blood Bank Booking Clerk: Chriss Townsend MD WBC (Bld) [#/Vol] 11.3 10*3/uL Normal 3.5-11.3 [facility] Comment on above: Performed By: #### C RP, CDP, SED #### [facility] [employer] [address] [place] [address] Blood Bank Booking Clerk: Chriss Townsend MD Sedimentation Rateon 023 Sedimentation Rate 18 mm/Hr Normal 0-30 [facility] Comment on above: Performed By: #### C RP, CDP, SED #### [facility] [employer] [address] [place] [address] Blood Bank Booking Clerk: Chriss Townsend MD ESR (Bld) [Velocity] 18 mm/h [employer] [employer] Telephone Encounteron 2021 [employer] Authentication Interface Message Text Most recent visit [...] for TST-PPD, intradermal (PPD) (CVX=96) Normal [employer] CBC AUTO DIFFon 11-12-2021 BASO # 0.0 103/ul Normal 0.0-0.1 [facility] Comment on above: Performed By: #### C BC #### [facility] [address] [place] [address] Dr. Laila Castle Basophils/100 WBC (Bld) 0.4 % Normal 0.2-2.0 [facility] [facility] Comment on above: Performed By: #### C BC #### [facility] [address] [place] [address] Dr. Laila Castle EO # 0.0 103/ul Normal 0.0-0.7 [facility] Comment on above: Performed By: #### C BC #### [facility] [address] [address] [address] Laila Castle Eosinophils/100 WBC (Bld) 0.0 % Critically low 0.9-7.0 [facility] Comment on above: Performed By: #### C BC #### [facility] [address] [place] [address] Dr. Laila Castle Erythrocyte distribution width (RBC) [Ratio] 14.6 % Normal 11.0-15.0 [facility] Comment on above: Performed By: #### C BC #### [facility] [address] [place] [address] Dr. Laila Castle Hematocrit (Bld) [Volume fraction] 40.3 % Normal 36.0-48.0 [facility] Comment on above: Performed By: #### C BC #### [facility] [address] [address] [address] Laila Castle Hemoglobin (Bld) [Mass/Vol] 12.5 g/dL Normal 12.0-16.0 [facility] Comment on above: Performed By: #### C BC #### [facility] [address] [address] [address] Laila Castle IG # 0.24 10e3/ul Critically high 0.00-0.03 [facility] Comment on above: Performed By: #### C BC #### [facility] [address] [address] [address] Laila Castle IG % 2.2 % Critically high 0.0-0.5 [facility] Comment on above: Performed By: #### C BC #### [facility] [address] [address] [address] Laila Castle LYMPH # 0.9 103/ul Critically low 1.2-3.8 [facility] Comment on above: Performed By: #### C BC #### [facility] [address] [address] [address] Laila Castle Lymphocytes/100 WBC (Bld) 7.8 % Critically low 20.5-60.0 [facility] Comment on above: Performed By: #### C BC #### [facility] [address] [address] [address] Laila Castle MANUAL DIFF REQ NO Normal [facility] Comment on above: Performed By: #### C BC #### [facility] [address] [address] [address] Laila Castle MCH (RBC) [Entitic mass] 28.7 pg Normal 26.7-34.0 [facility] Comment on above: Performed By: #### C BC #### [facility] [address] [address] [address] Laila Castle MCHC (RBC) [Mass/Vol] 31.0 g/dL Normal 29.9-35.2 [facility] Comment on above: Performed By: #### C BC #### [facility] [address] [address] [address] Laila Castle MCV (RBC) [Entitic vol] 92.4 fL Normal 81.0-99.0 [facility] Comment on above: Performed By: #### C BC #### [facility] [address] [address] [address] Laila Castle MONO # 0.7 103/ul Normal 0.3-0.8 [facility] Comment on above: Performed By: #### C BC #### [facility] [address] [place] [address] Dr. Laila Castle Monocytes/100 WBC (Bld) 6.4 % Normal 1.7-12.0 [facility] Comment on above: Performed By: #### C BC #### [facility] [address] [place] [address] Dr. Laila Castle NEUT # 9.2 103/ul Critically high 1.4-6.5 [facility] Comment on above: Performed By: #### C BC #### [facility] [address] [place] [address] Dr. Laila Castle Neutrophils/100 WBC (Bld) 83.2 % Critically high 43.0-75.0 [facility] Comment on above: Performed By: #### C BC #### [facility] [address] [place] [address] Dr. Laila Castle Platelet mean volume (Bld) [Entitic vol] 9.0 fL Critically low 9.5-13.5 [facility] Comment on above: Performed By: #### C BC #### [facility] [address] [place] [address] Dr. Laila Castle PLT 250 103/ul Normal 150-450 [facility] Comment on above: Performed By: #### C BC #### [facility] [address] [place] [address] Dr. Laila Castle RBC 4.36 106/ul Normal 4.20-5.40 [facility] Comment on above: Performed By: #### C BC #### [facility] [address] [place] [address] Dr. Laila Castle WBC 11.1 103/ul Critically high 4.0-11.[address] [facility] Comment on above: Performed By: #### C BC #### [facility] [address] [place] [address] Dr. Laila Castle POINT OF CARE GLUCOSEon 10-22 Glucose [Mass/Vol] 116 mg/dL Critically high 74-106 [facility] Comment on above: Performed By: #### P OCGLUC #### [facility] [address] [place] [address] Dr. Laila Castle Glucose [Mass/Vol] 144 mg/dL Critically high 74-106 [facility] Comment on above: Performed By: #### P OCGLUC #### [facility] [address] [place] [address] Dr. Laila Castle PROF 14(COMP METB)on 022 Albumin [Mass/Vol] 2.8 g/dL Critically low 3.4-5.0 [facility] Comment on above: Performed By: #### C MP #### [facility] [address] [place] [address] Dr. Laila Castle Albumin/Globulin [Mass ratio] 0.8 {ratio} Normal [facility] Comment on above: Performed By: #### C MP #### [facility] [address] [place] [address] Dr. Laila Castle ALP [Catalytic activity/Vol] 88 U/L Normal 46-116 [facility] Comment on above: Performed By: #### C MP #### [facility] [address] [place] [address] Dr. Laila Castle ALT [Catalytic activity/Vol] 19 U/L Normal 14-59 [facility] Comment on above: Performed By: #### C MP #### [facility] [address] [place] [address] Dr. Laila Castle Anion gap [Moles/Vol] 11.8 mmol/L Normal [facility] Comment on above: Performed By: #### C MP #### [facility] [address] [place] [address] Dr. Laila Castle AST [Catalytic activity/Vol] 20 U/L Normal 15-37 [facility] Comment on above: Performed By: #### C MP #### [facility] [address] [address] [address] Laila Castle Bilirubin [Mass/Vol] 0.3 mg/dL Normal 0.2-1.0 [facility] Comment on above: Performed By: #### C MP #### [facility] [address] [address] [address] Laila Castle Calcium [Mass/Vol] 9.7 mg/dL Normal 8.5-10.1 [facility] Comment on above: Performed By: #### C MP #### [facility] [address] [address] [address] Laila Castle Chloride [Moles/Vol] 106 mmol/L Normal 98-107 [facility] Comment on above: Performed By: #### C MP #### [facility] [address] [address] [address] Laila Castle CO2 [Moles/Vol] 24.6 mmol/L Normal 21.0-32.[address] [facility] Comment on above: Performed By: #### C MP #### [facility] [address] [place] [address] Dr. Laila Castle Creatinine [Mass/Vol] 0.67 mg/dL Normal 0.55-1.02 [facility] Comment on above: Performed By: #### C MP #### [facility] [address] [place] [address] Dr. Laila Castle EGFR-AF GAMBIAN >60 Normal >=60 [facility] Comment on above: Performed By: #### C MP #### [facility] [address] [place] [address] Dr. Laila Castle EGFR-NON AF GAMBIAN >60 Normal >=60 [facility] Comment on above: Performed By: #### C MP #### [facility] [address] [place] [address] Dr. Laila Castle Globulin (S) [Mass/Vol] 3.3 g/dL Normal [facility] Comment on above: Performed By: #### C MP #### [facility] [address] [address] [address] Laila Castle Glucose [Mass/Vol] 84 mg/dL Normal 74-106 [facility] Comment on above: Performed By: #### C MP #### [facility] [address] [address] [address] Laila Castle Potassium [Moles/Vol] 3.4 mmol/L Critically low 3.5-5.1 [facility] Comment on above: Performed By: #### C MP #### [facility] [address] [address] [address] Laila Castle Protein [Mass/Vol] 6.1 g/dL Critically low 6.4-8.2 [facility] Comment on above: Performed By: #### C MP #### [facility] [address] [address] [address] Laila Castle Sodium [Moles/Vol] 139 mmol/L Normal 136-145 [facility] Comment on above: Performed By: #### C MP #### [facility] [address] [address] [address] Laila Castle Urea nitrogen [Mass/Vol] 19.0 mg/dL Critically high 7.0-18.0 [facility] Comment on above: Performed By: #### C MP #### [facility] [address] [address] [address] Laila Castle Urea nitrogen/Creatinine [Mass ratio] 28.4 mg/mg Normal [facility] Comment on above: Performed By: #### C MP #### [facility] [address] [address] [address] Laila Castle CBC AUTO DIFFon 11-11-2021 BASO # 0.0 103/ul Normal 0.0-0.1 [facility] Comment on above: Performed By: #### C BC #### [facility] [address] [address] [address] Laila Castle Basophils/100 WBC (Bld) 0.3 % Normal 0.2-2.0 [facility] Comment on above: Performed By: #### C BC #### [facility] [address] [place] [address] Dr. Laila Castle EO # 0.0 103/ul Normal 0.0-0.7 [facility] Comment on above: Performed By: #### C BC #### [facility] [address] [place] [address] Dr. Laila Castle Eosinophils/100 WBC (Bld) 0.0 % Critically low 0.9-7.0 [facility] Comment on above: Performed By: #### C BC #### [facility] [address] [place] [address] Dr. Laila Castle Erythrocyte distribution width (RBC) [Ratio] 14.5 % Normal 11.0-15.0 [facility] Comment on above: Performed By: #### C BC #### [facility] [address] [place] [address] Dr. Laila Castle Hematocrit (Bld) [Volume fraction] 38.7 % Normal 36.0-48.0 [facility] Comment on above: Performed By: #### C BC #### [facility] [address] [place] [address] Dr. Laila Castle Hemoglobin (Bld) [Mass/Vol] 12.1 g/dL Normal 12.0-16.0 [facility] Comment on above: Performed By: #### C BC #### [facility] [address] [place] [address] Dr. Laila Castle IG # 0.21 10e3/ul Critically high 0.00-0.03 [facility] Comment on above: Performed By: #### C BC #### [facility] [address] [place] [address] Dr. Laila Castle IG % 1.8 % Critically high 0.0-0.5 [facility] Comment on above: Performed By: #### C BC #### [facility] [address] [place] [address] Dr. Laila Castle LYMPH # 0.8 103/ul Critically low 1.2-3.8 [facility] Comment on above: Performed By: #### C BC #### [facility] [address] [place] [address] Dr. Laila Castle Lymphocytes/100 WBC (Bld) 6.6 % Critically low 20.5-60.0 [facility] Comment on above: Performed By: #### C BC #### [facility] [address] [place] [address] Dr. Laila Castle MANUAL DIFF REQ NO Normal [facility] Comment on above: Performed By: #### C BC #### [facility] [address] [place] [address] Dr. Laila Castle MCH (RBC) [Entitic mass] 29.1 pg Normal 26.7-34.0 [facility] Comment on above: Performed By: #### C BC #### [facility] [address] [place] [address] Dr. Laila Castle MCHC (RBC) [Mass/Vol] 31.3 g/dL Normal 29.9-35.2 [facility] Comment on above: Performed By: #### C BC #### [facility] [address] [place] [address] Dr. Laila Castle MCV (RBC) [Entitic vol] 93.0 fL Normal 81.0-99.0 [facility] Comment on above: Performed By: #### C BC #### [facility] [address] [place] [address] Dr. Laila Castle MONO # 0.6 103/ul Normal 0.3-0.8 [facility] Comment on above: Performed By: #### C BC #### [facility] [address] [place] [address] Dr. Laila Castle Monocytes/100 WBC (Bld) 5.1 % Normal 1.7-12.0 [facility] Comment on above: Performed By: #### C BC #### [facility] [address] [place] [address] Dr. Laila Castle NEUT # 10.1 103/ul Critically high 1.4-6.[address] [facility] Comment on above: Performed By: #### C BC #### [facility] [address] [address] [address] Laila Castle Neutrophils/100 WBC (Bld) 86.2 % Critically high 43.0-75.0 [facility] Comment on above: Performed By: #### C BC #### [facility] [address] [address] [address] Laila Castle Platelet mean volume (Bld) [Entitic vol] 8.9 fL Critically low 9.5-13.5 [facility] Comment on above: Performed By: #### C BC #### [facility] [address] [address] [address] Laila Castle PLT 239 103/ul Normal 150-450 [facility] Comment on above: Performed By: #### C BC #### [facility] [address] [address] [address] Laila Castle RBC 4.16 106/ul Critically low 4.20-5.40 [facility] Comment on above: Performed By: #### C BC #### [facility] [address] [address] [address] Laila Castle WBC 11.7 103/ul Critically high 4.0-11.[address] [facility] Comment on above: Performed By: #### C BC #### [facility] [address] [place] [address] Dr. Laila Castle POINT OF CARE GLUCOSEon 10-22 Glucose [Mass/Vol] 132 mg/dL Critically high 74-106 [facility] Comment on above: Performed By: #### P OCGLUC #### [facility] [address] [address] [address] Laila Castle Glucose [Mass/Vol] 125 mg/dL Critically high 74-106 [facility] Comment on above: Performed By: #### C MP #### [facility] [address] [address] [address] Laila Castle Glucose [Mass/Vol] 127 mg/dL Critically high 74-106 [facility] Comment on above: Performed By: #### P OCGLUC #### [facility] [address] [address] [address] Laila Castle Glucose [Mass/Vol] 102 mg/dL Normal 74-106 [facility] Comment on above: Performed By: #### P OCGLUC #### [facility] [address] [address] [address] Laila Castle PROF 14(COMP METB)on 022 Albumin [Mass/Vol] 2.7 g/dL Critically low 3.4-5.0 [facility] Comment on above: Performed By: #### C MP #### [facility] [address] [place] [address] Dr. Laila Castle Albumin/Globulin [Mass ratio] 0.8 {ratio} Normal [facility] Comment on above: Performed By: #### C MP #### [facility] [address] [place] [address] Dr. Laila Castle ALP [Catalytic activity/Vol] 88 U/L Normal 46-116 [facility] Comment on above: Performed By: #### C MP #### [facility] [address] [place] [address] Dr. Laila Castle ALT [Catalytic activity/Vol] 16 U/L Normal 14-59 [facility] Comment on above: Performed By: #### C MP #### [facility] [address] [place] [address] Dr. Laila Castle Anion gap [Moles/Vol] 12.8 mmol/L Normal [facility] Comment on above: Performed By: #### C MP #### [facility] [address] [place] [address] Dr. Laila Castle AST [Catalytic activity/Vol] 15 U/L Normal 15-37 [facility] Comment on above: Performed By: #### C MP #### [facility] [address] [place] [address] Dr. Laila Castle Bilirubin [Mass/Vol] 0.2 mg/dL Normal 0.2-1.0 [facility] Comment on above: Performed By: #### C MP #### [facility] [address] [address] [address] Laila Castle Calcium [Mass/Vol] 9.8 mg/dL Normal 8.5-10.1 [facility] Comment on above: Performed By: #### C MP #### [facility] [address] [address] [address] Laila Castle Chloride [Moles/Vol] 106 mmol/L Normal 98-107 [facility] Comment on above: Performed By: #### C MP #### [facility] [address] [address] [address] Laila Castle CO2 [Moles/Vol] 24.0 mmol/L Normal 21.0-32.[address] [facility] Comment on above: Performed By: #### C MP #### [facility] [address] [place] [address] Dr. Laila Castle Creatinine [Mass/Vol] 0.62 mg/dL Normal 0.55-1.02 [facility] Comment on above: Performed By: #### C MP #### [facility] [address] [place] [address] Dr. Laila Castle EGFR-AF GAMBIAN >60 Normal >=[address] [facility] Comment on above: Performed By: #### C MP #### [facility] [address] [place] [address] Dr. Laila Castle EGFR-NON AF GAMBIAN >60 Normal >=60 [facility] Comment on above: Performed By: #### C MP #### [facility] [address] [address] [address] Laila Castle Globulin (S) [Mass/Vol] 3.6 g/dL Normal [facility] Comment on above: Performed By: #### C MP #### [facility] [address] [place] [address] Dr. Laila Castle Glucose [Mass/Vol] 126 mg/dL Critically high 74-106 [facility] Comment on above: Performed By: #### C MP #### [facility] [address] [place] [address] Dr. Laila Castle Potassium [Moles/Vol] 3.8 mmol/L Normal 3.5-5.1 [facility] Comment on above: Performed By: #### C MP #### [facility] [address] [place] [address] Dr. Laila Castle Protein [Mass/Vol] 6.3 g/dL Critically low 6.4-8.2 [facility] Comment on above: Performed By: #### C MP #### [facility] [address] [place] [address] Dr. Laila Castle Sodium [Moles/Vol] 139 mmol/L Normal 136-145 [facility] Comment on above: Performed By: #### C MP #### [facility] [address] [place] [address] Dr. Laila Castle Urea nitrogen [Mass/Vol] 18.0 mg/dL Normal 7.0-18.0 [facility] Comment on above: Performed By: #### C MP #### [facility] [address] [place] [address] Dr. Laila Castle Urea nitrogen/Creatinine [Mass ratio] 29.0 mg/mg Normal [facility] Comment on above: Performed By: #### C MP #### [facility] [address] [place] [address] Dr. Laila Castle CBC AUTO DIFFon 11-10-2021 BASO # 0.0 103/ul Normal 0.0-0.1 [facility] Comment on above: Performed By: #### P OCGLUC #### [facility] [address] [place] [address] Dr. Laila Castle Basophils/100 WBC (Bld) 0.7 % Normal 0.2-2.0 [facility] Comment on above: Performed By: #### P OCGLUC #### [facility] [address] [place] [address] Dr. Laila Castle EO # 0.0 103/ul Normal 0.0-0.7 [facility] Comment on above: Performed By: #### P OCGLUC #### [facility] [address] [place] [address] Dr. Laila Castle Eosinophils/100 WBC (Bld) 0.0 % Critically low 0.9-7.0 [facility] Comment on above: Performed By: #### P OCGLUC #### [facility] [address] [place] [address] Dr. Laila Castle Erythrocyte distribution width (RBC) [Ratio] 14.6 % Normal 11.0-15.0 [facility] Comment on above: Performed By: #### P OCGLUC #### [facility] [address] [address] [address] Laila Castle Hematocrit (Bld) [Volume fraction] 38.6 % Normal 36.0-48.0 [facility] Comment on above: Performed By: #### P OCGLUC #### [facility] [address] [place] [address] Dr. Laila Castle Hemoglobin (Bld) [Mass/Vol] 12.1 g/dL Normal 12.0-16.0 [facility] Comment on above: Performed By: #### P OCGLUC #### [facility] [address] [place] [address] Dr. Laila Castle IG # 0.23 10e3/ul Critically high 0.00-0.03 [facility] Comment on above: Performed By: #### P OCGLUC #### [facility] [address] [place] [address] Dr. Laila Castle IG % 4.0 % Critically high 0.0-0.5 [facility] Comment on above: Performed By: #### P OCGLUC #### [facility] [address] [place] [address] Dr. Laila Castle LYMPH # 0.7 103/ul Critically low 1.2-3.8 [facility] Comment on above: Performed By: #### P OCGLUC #### [facility] [address] [place] [address] Dr. Laila Castle Lymphocytes/100 WBC (Bld) 11.3 % Critically low 20.5-60.0 [facility] Comment on above: Result Comment: MANU AL DIFF NOT REQUIRED. CONSISTENT WITH MANUAL DIFF PERFORMED ON 11/10/21 Performed By: #### P OCGLUC #### [facility] [address] [place] [address] Dr. Laila Castle MANUAL DIFF REQ NO Normal [facility] Comment on above: Performed By: #### P OCGLUC #### [facility] [address] [place] [address] Dr. Laila Castle MCH (RBC) [Entitic mass] 28.6 pg Normal 26.7-34.0 [facility] Comment on above: Performed By: #### P OCGLUC #### [facility] [address] [place] [address] Dr. Laila Castle MCHC (RBC) [Mass/Vol] 31.3 g/dL Normal 29.9-35.2 [facility] Comment on above: Performed By: #### P OCGLUC #### [facility] [address] [place] [address] Dr. Laila Castle MCV (RBC) [Entitic vol] 91.3 fL Normal 81.0-99.0 [facility] Comment on above: Performed By: #### P OCGLUC #### [facility] [address] [place] [address] Dr. Laila Castle MONO # 0.1 103/ul Critically low 0.3-0.8 [facility] Comment on above: Performed By: #### P OCGLUC #### [facility] [address] [place] [address] Dr. Laila Castle Monocytes/100 WBC (Bld) 2.1 % Normal 1.7-12.0 [facility] Comment on above: Performed By: #### P OCGLUC #### [facility] [address] [place] [address] Dr. Laila Castle NEUT # 4.7 103/ul Normal 1.4-6.5 [facility] Comment on above: Performed By: #### P OCGLUC #### [facility] [address] [place] [address] Dr. Laila Castle Neutrophils/100 WBC (Bld) 81.9 % Critically high 43.0-75.0 [facility] Comment on above: Performed By: #### P OCGLUC #### [facility] [address] [address] [address] Laila Castle Platelet mean volume (Bld) [Entitic vol] 8.9 fL Critically low 9.5-13.5 [facility] Comment on above: Performed By: #### P OCGLUC #### [facility] [address] [address] [address] Laila Castle PLT 213 103/ul Normal 150-450 [facility] Comment on above: Performed By: #### P OCGLUC #### [facility] [address] [address] [address] Laila Castle RBC 4.23 106/ul Normal 4.20-5.40 [facility] Comment on above: Performed By: #### P OCGLUC #### [facility] [address] [address] [address] Laila Castle WBC 5.8 103/ul Normal 4.0-11.0 [facility] Comment on above: Performed By: #### P OCGLUC #### [facility] [address] [address] [address] Laila Castle POINT OF CARE GLUCOSEon 10-22 Glucose [Mass/Vol] 147 mg/dL Critically high -106 [facility] Comment on above: Performed By: #### P OCGLUC #### [facility] [address] [address] [address] Laila Castle Glucose [Mass/Vol] 125 mg/dL Critically high -106 [facility] Comment on above: Performed By: #### C VDTBH #### [facility] [address] [address] [address] Laila Castle Glucose [Mass/Vol] 148 mg/dL Critically high -106 [facility] Comment on above: Performed By: #### P OCGLUC #### [facility] [address] [address] [address] Laila Castle PROF 14(COMP METB)on 022 Albumin [Mass/Vol] 2.6 g/dL Critically low 3.4-5.0 [facility] Comment on above: Performed By: #### C MP #### [facility] [address] [address] [address] Laila Castle Albumin/Globulin [Mass ratio] 0.7 {ratio} Normal [facility] Comment on above: Performed By: #### C MP #### [facility] [address] [address] [address] Laila Castle ALP [Catalytic activity/Vol] 93 U/L Normal 46-116 [facility] Comment on above: Performed By: #### C MP #### [facility] [address] [address] [address] Laila Castle ALT [Catalytic activity/Vol] 20 U/L Normal 14-59 [facility] Comment on above: Performed By: #### C MP #### [facility] [address] [place] [address] Dr. Laila Castle Anion gap [Moles/Vol] 14.0 mmol/L Normal [facility] Comment on above: Performed By: #### C MP #### [facility] [address] [place] [address] Dr. Laila Castle AST [Catalytic activity/Vol] 15 U/L Normal 15-37 [facility] Comment on above: Performed By: #### C MP #### [facility] [address] [address] [address] Laila Castle Bilirubin [Mass/Vol] 0.2 mg/dL Normal 0.2-1.0 [facility] Comment on above: Performed By: #### C MP #### [facility] [address] [place] [address] Dr. Laila Castle Calcium [Mass/Vol] 9.1 mg/dL Normal 8.5-10.1 [facility] Comment on above: Performed By: #### C MP #### [facility] [address] [address] [address] Laila Castle Chloride [Moles/Vol] 106 mmol/L Normal 98-107 [facility] Comment on above: Performed By: #### C MP #### [facility] [address] [address] [address] Laila Castle CO2 [Moles/Vol] 23.8 mmol/L Normal 21.0-32.[address] [facility] Comment on above: Performed By: #### C MP #### [facility] [address] [address] [address] Laila Castle Creatinine [Mass/Vol] 0.57 mg/dL Normal 0.55-1.02 [facility] Comment on above: Performed By: #### C MP #### [facility] [address] [address] [address] Laila Castle EGFR-AF GAMBIAN >60 Normal >=[address] [facility] Comment on above: Performed By: #### C MP #### [facility] [address] [place] [address] Dr. Laila Castle EGFR-NON AF GAMBIAN >60 Normal >=60 [facility] Comment on above: Performed By: #### C MP #### [facility] [address] [place] [address] Dr. Laila Castle Globulin (S) [Mass/Vol] 3.7 g/dL Normal [facility] Comment on above: Performed By: #### C MP #### [facility] [address] [place] [address] Dr. Laila Castle Glucose [Mass/Vol] 133 mg/dL Critically high 74-106 [facility] Comment on above: Performed By: #### C MP #### [facility] [address] [place] [address] Dr. Laila Castle Potassium [Moles/Vol] 3.8 mmol/L Normal 3.5-5.1 [facility] Comment on above: Performed By: #### C MP #### [facility] [address] [place] [address] Dr. Laila Castle Protein [Mass/Vol] 6.3 g/dL Critically low 6.4-8.2 [facility] Comment on above: Performed By: #### C MP #### [facility] [address] [place] [address] Dr. Laila Castle Sodium [Moles/Vol] 140 mmol/L Normal 136-145 [facility] Comment on above: Performed By: #### C MP #### [facility] [address] [place] [address] Dr. Laila Castle Urea nitrogen [Mass/Vol] 12.0 mg/dL Normal 7.0-18.0 [facility] Comment on above: Performed By: #### C MP #### [facility] [address] [place] [address] Dr. Laila Castle Urea nitrogen/Creatinine [Mass ratio] 21.1 mg/mg Normal [facility] Comment on above: Performed By: #### C MP #### [facility] [address] [place] [address] Dr. Laila Castle CARDIAC HECTOR ADMITon 022 CK [Catalytic activity/Vol] 58 U/L Normal 26-192 [facility] Comment on above: Performed By: #### P OCGLUC #### [facility] [address] [place] [address] Dr. Laila Castle CK.MB [Mass/Vol] 27.42 ng/mL Critically high <=3.60 Th [facility] Comment on above: Performed By: #### P OCGLUC #### [facility] [address] [place] [address] Dr. Laila Castle HSTROP 7.6 pg/mL Normal 4.0-51.3 [facility] Comment on above: Result Comment: CUT- OFF POINTS HAVE BEEN ESTABLISHED BASED ON THE FOURTH UNIVERSAL DEFINITIONS OF MYOCARDIAL INFARCTION. THE UPPER REFERENCE LIMIT (URL) OF TROPONIN, DEFINED THE 99TH PERCENTILE OF cTnI DISTRIBUTION IN A REFERENCE POPULATION, HAS BEEN CONFIRMED THE DECISION THRESHOLD FOR [place] DIAGNOSIS. Performed By: #### P OCGLUC #### [facility] [address] [place] [address] Dr. Laila Castle SPENCER 15 ng/mL Normal 9-82 [facility] Comment on above: Performed By: #### P OCGLUC #### [facility] [address] [place] [address] Dr. Laila Castle CBC W MANUAL DIFFon 08-20-20 22 ATYPICAL LYMPH # Normal [facility] Comment on above: Performed By: #### C VDTBH #### [facility] [address] [place] [address] Dr. Laila Castle ATYPICAL LYMPH % Normal [facility] Comment on above: Performed By: #### C VDTBH #### [facility] [address] [place] [address] Dr. Laila Castle BAND # Normal 0.0-0.3 [facility] Comment on above: Performed By: #### C VDTBH #### [facility] [address] [place] [address] Dr. Laila Castle BAND % Normal 0-5 [facility] Comment on above: Performed By: #### C VDTBH #### [facility] [address] [place] [address] Dr. Laila Castle BASOM # 0.09 103/ul Normal 0.00-0.10 [facility] Comment on above: Performed By: #### C VDTBH #### [facility] [address] [place] [address] Dr. Laila Castle BASOM % 1.0 % Normal 0.2-2.0 [facility] Comment on above: Performed By: #### C VDTBH #### [facility] [address] [place] [address] Dr. Laila Csatle BLAST # Normal [facility] Comment on above: Performed By: #### C VDTBH #### [facility] [address] [place] [address] Dr. Laila Castle BLAST % Normal [facility] Comment on above: Performed By: #### C VDTBH #### [facility] [address] [place] [address] Dr. Laila Castle CORRECTED WBC Normal 4.0-11.0 [facility] Comment on above: Performed By: #### C VDTBH #### [facility] [address] [place] [address] Dr. Laila Castle EOS # 0.00 103/ul Normal 0.00-0.70 [facility] Comment on above: Performed By: #### C VDTBH #### [facility] [address] [address] [address] Laila Castle EOS% 0.0 % Critically low 0.9-7.0 [facility] Comment on above: Performed By: #### C VDTBH #### [facility] [address] [address] [address] Laila Castle HCT 40.4 % Normal 36.0-48.0 [facility] Comment on above: Performed By: #### C VDTBH #### [facility] [address] [address] [address] Laila Castle HGB 12.9 g/dl Normal 12.0-16.0 [facility] Comment on above: Performed By: #### C VDTBH #### [facility] [address] [address] [address] Laila Castle LYMPHM # 0.73 103/ul Critically low 1.20-3.80 [facility] Comment on above: Performed By: #### C VDTBH #### [facility] [address] [address] [address] Laila Castle LYMPHM% 8.0 % Critically low 20.5-60.0 [facility] Comment on above: Performed By: #### C VDTBH #### [facility] [address] [address] [address] Laila Castle MCH 28.5 pg Normal 26.7-34.0 [facility] Comment on above: Performed By: #### C VDTBH #### [facility] [address] [address] [address] Laila Castle MCHC 31.9 g/dl Normal 29.9-35.2 [facility] Comment on above: Performed By: #### C VDTBH #### [facility] [address] [address] [address] Laila Castle MCV 89.4 fL Normal 81.0-99.0 [facility] Comment on above: Performed By: #### C VDTBH #### [facility] [address] [place] [address] Dr. Laila Castle METAMYELOCYTE # Normal [facility] Comment on above: Performed By: #### C VDTBH #### [facility] [address] [place] [address] Dr. Laila Castle METAMYELOCYTE % Normal [facility] Comment on above: Performed By: #### C VDTBH #### [facility] [address] [place] [address] Dr. Laila Castle MONOM# 0.18 103/ul Critically low 0.30-0.80 [facility] Comment on above: Performed By: #### C VDTBH #### [facility] [address] [place] [address] Dr. Laila Castle MONOM% 2.0 % Normal 1.7-12.0 [facility] Comment on above: Performed By: #### C VDTBH #### [facility] [address] [place] [address] Dr. Laila Castle MPV 9.7 fL Normal 9.5-13.5 [facility] Comment on above: Performed By: #### C VDTBH #### [facility] [address] [place] [address] Dr. Laila Castle MYELOCYTE # Normal [facility] Comment on above: Performed By: #### C VDTBH #### [facility] [address] [place] [address] Dr. Laila Castle MYELOCYTE % Normal [facility] Comment on above: Performed By: #### C VDTBH #### [facility] [address] [place] [address] Dr. Laila Castle NRBC Normal [facility] Comment on above: Performed By: #### C VDTBH #### [facility] [address] [place] [address] Dr. Laila Castle PLT 288 103/ul Normal 150-450 [facility] Comment on above: Performed By: #### C VDTBH #### [facility] [address] [place] [address] Dr. Laila Castle RBC 4.52 106/ul Normal 4.20-5.40 [facility] Comment on above: Performed By: #### C VDTBH #### [facility] [address] [address] [address] Laila Castle RDW 14.9 % Normal 11.0-15.0 [facility] Comment on above: Performed By: #### C VDTBH #### [facility] [address] [address] [address] Laila Castle SEG # 8.10 103/ul Critically high 1.40-6.[address] [facility] Comment on above: Performed By: #### C VDTBH #### [facility] [address] [place] [address] Dr. Laila Castle SEG % 89.0 % Critically high 43.0-75.0 [facility] Comment on above: Performed By: #### C VDTBH #### [facility] [address] [address] [address] Laila Castle WBC 9.1 103/ul Normal 4.0-11.0 [facility] Comment on above: Performed By: #### C VDTBH #### [facility] [address] [place] [address] Dr. Laila Castle CTA CHEST WO W [...] COLLETTE MARLOW Date: 2021-11-09 17:09 Normal [facility] D-DIMERon 11-09-2021 D-DIMER 5.66 mg/L FEU Critically high <=0.59 [facility] Comment on above: Performed By: #### D DIM #### [facility] [address] [address] [address] Laila Castle D-DIMER COMMENTS SEE BELOW Normal [facility] Comment on above: Result Comment: Incr [...] hospitalization. Performed By: #### D DIM #### [facility] [address] [address] [address] Laila Castle POINT OF CARE GLUCOSEon 10-22 Glucose [Mass/Vol] 160 mg/dL Critically high 74-106 [facility] Comment on above: Performed By: #### P OCGLUC #### [facility] [address] [address] [address] Laila Castle PROF 14(COMP METB)on 022 Albumin [Mass/Vol] 2.8 g/dL Critically low 3.4-5.0 [facility] Comment on above: Performed By: #### P OCGLUC #### [facility] [address] [address] [address] Laila Castle Albumin/Globulin [Mass ratio] 0.7 {ratio} Normal [facility] Comment on above: Performed By: #### P OCGLUC #### [facility] [address] [place] [address] Dr. Laila Castle ALP [Catalytic activity/Vol] 101 U/L Normal 46-116 [facility] Comment on above: Performed By: #### P OCGLUC #### [facility] [address] [address] [address] Laila Castle ALT [Catalytic activity/Vol] 26 U/L Normal 14-59 [facility] Comment on above: Performed By: #### P OCGLUC #### [facility] [address] [address] [address] Laila Castle Anion gap [Moles/Vol] 16.7 mmol/L Normal [facility] Comment on above: Performed By: #### P OCGLUC #### [facility] [address] [place] [address] Dr. Laila Castle AST [Catalytic activity/Vol] 43 U/L Critically high 15-37 [facility] Comment on above: Performed By: #### P OCGLUC #### [facility] [address] [address] [address] Laila Castle Bilirubin [Mass/Vol] 0.6 mg/dL Normal 0.2-1.0 [facility] Comment on above: Performed By: #### P OCGLUC #### [facility] [address] [place] [address] Dr. Laila Castle Calcium [Mass/Vol] 9.9 mg/dL Normal 8.5-10.1 [facility] Comment on above: Performed By: #### P OCGLUC #### [facility] [address] [address] [address] Laila Castle Chloride [Moles/Vol] 100 mmol/L Normal 98-107 [facility] Comment on above: Performed By: #### P OCGLUC #### [facility] [address] [address] [address] Laila Castle CO2 [Moles/Vol] 24.0 mmol/L Normal 21.0-32.[address] [facility] Comment on above: Performed By: #### P OCGLUC #### [facility] [address] [address] [address] Laila Castle Creatinine [Mass/Vol] 0.71 mg/dL Normal 0.55-1.02 [facility] Comment on above: Performed By: #### P OCGLUC #### [facility] [address] [place] [address] Dr. Laila Castle EGFR-AF GAMBIAN >60 Normal >=[address] [facility] Comment on above: Performed By: #### P OCGLUC #### [facility] [address] [address] [address] Laila Castle EGFR-NON AF GAMBIAN >60 Normal >=60 [facility] Comment on above: Performed By: #### P OCGLUC #### [facility] [address] [address] [address] Laila Castle Globulin (S) [Mass/Vol] 4.2 g/dL Normal [facility] Comment on above: Performed By: #### P OCGLUC #### [facility] [address] [address] [address] Laila Castle Glucose [Mass/Vol] 119 mg/dL Critically high 74-106 [facility] Comment on above: Performed By: #### P OCGLUC #### [facility] [address] [address] [address] Laila Castle Potassium [Moles/Vol] 4.7 mmol/L Normal 3.5-5.1 [facility] Comment on above: Performed By: #### P OCGLUC #### [facility] [address] [address] [address] Laila Castle Protein [Mass/Vol] 7.0 g/dL Normal 6.4-8.2 [facility] Comment on above: Performed By: #### P OCGLUC #### [facility] [address] [address] [address] aLila Castle Sodium [Moles/Vol] 136 mmol/L Normal 136-145 [facility] Comment on above: Performed By: #### P OCGLUC #### [facility] [address] [address] [address] Laila Castle Urea nitrogen [Mass/Vol] 14.0 mg/dL Normal 7.0-18.0 [facility] Comment on above: Performed By: #### P OCGLUC #### [facility] [address] [address] [address] Laila Castle Urea nitrogen/Creatinine [Mass ratio] 19.7 mg/mg Normal [facility] Comment on above: Performed By: #### P OCGLUC #### [facility] [address] [address] [address] Laila Castle XR CHEST 1 Von [...] BRIANNA LUZ Date: 2021-11-09 15:57 Normal [facility] Covid-19 PCR (CVDTBH)on 10-21 SARS-CoV-2 (COVID-19) RNA GLYNN+probe Ql (Unsp spec) Detected Critically abnormal NOT DETECTED [facility] Comment on above: Result Comment: This test is not yet approved or cleared by the [place] FDA. When there are no FDA-approved or cleared tests available, and other criteria are met, FDA can make tests available under an emergency access mechanism called an Emergency Use Authorization (EUA). The EUA for this test is supported by the [place] of Health and Human Service's (HHS's) declaration [...] used). Performed By: #### C VDTB #### [facility] [address] [address] [address] Laila Castle Telephone Encounteron 2021 [employer] Authentication Interface Message Text Existing RX should have refills. Normal [facility] Telephone Encounteron 2021 [employer] Authentication Interface Message Text Sent pt mychart msg Normal [facility]folder Authentication Interface Message Text Needs f/u visit Normal [facility] Cult,Funguson 09-16-2021 Cult,Fungus Specimen Description .SHOULDER RIGHT JOINT FLUID Culture NO GROWTH 31 DAYS Report Status FINAL 09/16/2021 Normal [facility] Comment on above: Performed By: #### L ACTIC #### [facility] [address] [place] [address] Blood Bank Booking Clerk: Chriss Townsend MD CBC with Auto Differentialon 09-09-2021 Absolute Eos # 0.04 [facility] Absolute Immature Granulocyte 0.23 [facility] Absolute Lymph # 2.35 [facility] Absolute [place] # 0.73 [facility] Basophils (Bld) [#/Vol] 0.05 10*3/uL [facility] Basophils/100 WBC (Bld) 1 % 0 - 2 % [facility] Eosinophils/100 WBC (Bld) 0 % Low 1 - 4 % [facility] Hematocrit (Bld) [Volume fraction] 38.1 % 36.3 - 47.1 % [facility] Hemoglobin (Bld) [Mass/Vol] 11.8 g/dL Low 11.9 - 15.1 g/dL [facility] Immature granulocytes/100 WBC (Bld) 2 % High 0 [facility] Interpretation and review of laboratory results Abnormal [facility] Lymphocytes/100 WBC (Bld) 24 % 24 - 43 % [facility] MCH (RBC) [Entitic mass] 29.7 pg 25.2 - 33.5 pg [facility] MCHC (RBC) [Mass/Vol] 31.0 g/dL 28.4 - 34.8 g/dL [facility] MCV (RBC) [Entitic vol] 96.0 fL 82.6 - 102.9 fL [facility] Monocytes/100 WBC (Bld) 7 % 3 - 12 % [facility] NRBC Automated 0.0 0.0 per 100 WBC [facility] Platelet distribution width (Bld) [Ratio] 16.2 % High 11.8 - 14.4 % [facility] Platelet mean volume (Bld) [Entitic vol] 9.9 fL 8.1 - 13.5 fL [facility] Platelets (Bld) [#/Vol] 234 10*3/uL [facility] RBC (Bld) [#/Vol] 3.97 10*6/uL 3.95 - 5.1 1 m/uL [facility] Segmented neutrophils/100 WBC (Bld) 66 % High 36 - 65 % [facility] Segs Absolute 6.58 [facility] WBC (Bld) [#/Vol] 10.0 10*3/uL [facility] Comprehensive Metabolic Pane markell 09-09-2021 Albumin [Mass/Vol] 4.1 g/dL 3.5 - 5.2 g/dL [facility] Albumin/Globulin [Mass ratio] 1.5 {ratio} [facility] ALP (Bld) [Catalytic activity/Vol] 146 U/L High 35 - 104 U/L [facility] ALT [Catalytic activity/Vol] 6 U/L 5 - 33 U/L [facility] Anion gap [Moles/Vol] 11 mmol/L 9 - 17 mmol/L [facility] AST [Catalytic activity/Vol] 25 U/L <32 [facility] Bilirubin [Mass/Vol] 0.31 mg/dL 0.3 - 1 .2 mg/dL [facility] Calcium [Mass/Vol] 10.4 mg/dL 8.6 - 10. 4 mg/dL [facility] Chloride [Moles/Vol] 101 mmol/L 98 - 10 7 mmol/L [facility] CO2 [Moles/Vol] 26 mmol/L 20 - 31 mmol/L [facility] Creatinine [Mass/Vol] 0.38 mg/dL Low 0.50 - 0.90 mg/dL [facility] Free PSA/Total PSA [Mass fraction] 6.8 g/dL 6.4 - 8.3 g/dL [facility] GFR >60 >60 mL/min [facility] GFR Non- >60 >60 mL/min [facility] Glucose [Mass/Vol] 74 mg/dL 70 - 99 mg/dL [facility] Interpretation and review of laboratory results Abnormal [facility] Potassium [Moles/Vol] 3.9 mmol/L 3.7 - 5.3 mmol/L [facility] Sodium [Moles/Vol] 138 mmol/L 135 - 144 mmol/L [facility] Urea nitrogen (BldV) [Mass/Vol] 10 mg/dL 8 - 23 mg/dL [facility] Urea nitrogen/Creatinine (Bld) [Mass ratio] 26 High [facility] Laboratory - Chemistry and C hemistry - challengeon 09-09-2021 GFR/1.73 sq M.predicted MDRD (S/P/Bld) [Vol rate/Area] [facility] Comment on above: Average GFR for 60-6 9 years old: 85 mL/min/1.73sq m Chronic Kidney Disease: <60 mL/min/1.73sq m Kidney failure: <15 mL/min/1.73sq m eGFR calculated using average adult body mass. Additional eGFR calculator available at: http://www.Justworks/multiple_crcl_2012.htm Stage 1: Some kidney damage normal GFR Stage 2: Mild kidney damage GFR 60-89 Stage 3: Moderate kidney damage GFR 30-59 Stage 4: Severe kidney damage GFR 15-29 Stage 5: Severe kidney damage GFR <15 ESRD - chronic treatment by dialysis or transplant CBC with Auto Differentialon 09-02-2021 Absolute Eos # <0.03 [place] [facility] Absolute Immature Granulocyte 0.49 High [facility] Absolute Lymph # 1.22 [facility] Absolute [place] # 0.78 [facility] Basophils (Bld) [#/Vol] 0.04 10*3/uL [facility] Basophils/100 WBC (Bld) 0 % 0 - 2 % [facility] Eosinophils/100 WBC (Bld) 0 % Low 1 - 4 % [facility] Hematocrit (Bld) [Volume fraction] 37.2 % 36.3 - 47.1 % [facility] Hemoglobin (Bld) [Mass/Vol] 11.1 g/dL Low 11.9 - 15.1 g/dL [facility] Immature granulocytes/100 WBC (Bld) 5 % High 0 [facility] Interpretation and review of laboratory results Abnormal [facility] Lymphocytes/100 WBC (Bld) 12 % Low 24 - 43 % [facility] MCH (RBC) [Entitic mass] 29.1 pg 25.2 - 33.5 pg [facility] MCHC (RBC) [Mass/Vol] 29.8 g/dL 28.4 - 34.8 g/dL [facility] MCV (RBC) [Entitic vol] 97.4 fL 82.6 - 102.9 fL [facility] Monocytes/100 WBC (Bld) 7 % 3 - 12 % [facility] NRBC Automated 0.0 0.0 per 100 WBC [facility] Platelet distribution width (Bld) [Ratio] 16.1 % High 11.8 - 14.4 % [facility] Platelet mean volume (Bld) [Entitic vol] 9.3 fL 8.1 - 13.5 fL [facility] Platelets (Bld) [#/Vol] 290 10*3/uL [facility] RBC (Bld) [#/Vol] 3.82 10*6/uL Low 3.95 - 5.1 1 m/uL [facility] Segmented neutrophils/100 WBC (Bld) 76 % High 36 - 65 % [facility] Segs Absolute 8.00 [facility] WBC (Bld) [#/Vol] 10.5 10*3/uL [facility] Comprehensive Metabolic Pane markell 09-02-2021 Albumin [Mass/Vol] 3.6 g/dL 3.5 - 5.2 g/dL [facility] Albumin/Globulin [Mass ratio] 1.2 {ratio} [facility] ALP (Bld) [Catalytic activity/Vol] 172 U/L High 35 - 104 U/L [facility] ALT [Catalytic activity/Vol] 7 U/L 5 - 33 U/L [facility] Anion gap [Moles/Vol] 9 mmol/L 9 - 17 mmol/L [facility] AST [Catalytic activity/Vol] 26 U/L <32 [facility] Bilirubin [Mass/Vol] 0.19 mg/dL Low 0.3 - 1 .2 mg/dL [facility] Calcium [Mass/Vol] 10.3 mg/dL 8.6 - 10. 4 mg/dL [facility] Chloride [Moles/Vol] 103 mmol/L 98 - 10 7 mmol/L [facility] CO2 [Moles/Vol] 25 mmol/L 20 - 31 mmol/L [facility] Creatinine [Mass/Vol] 0.41 mg/dL Low 0.50 - 0.90 mg/dL [facility] Free PSA/Total PSA [Mass fraction] 6.7 g/dL 6.4 - 8.3 g/dL [facility] GFR >60 >60 mL/min [facility] GFR Non- >60 >60 mL/min [facility] Glucose [Mass/Vol] 90 mg/dL 70 - 99 mg/dL [facility] Interpretation and review of laboratory results Abnormal [facility] Potassium [Moles/Vol] 3.8 mmol/L 3.7 - 5.3 mmol/L [facility] Sodium [Moles/Vol] 137 mmol/L 135 - 144 mmol/L [facility] Urea nitrogen (BldV) [Mass/Vol] 14 mg/dL 8 - 23 mg/dL [facility] Urea nitrogen/Creatinine (Bld) [Mass ratio] 34 High [facility] Laboratory - Chemistry and C hemistry - challengeon 09-02-2021 GFR/1.73 sq M.predicted MDRD (S/P/Bld) [Vol rate/Area] [facility] Comment on above: Average GFR for 60-6 9 years old: 85 mL/min/1.73sq m Chronic Kidney Disease: <60 mL/min/1.73sq m Kidney failure: <15 mL/min/1.73sq m eGFR calculated using average adult body mass. Additional eGFR calculator available at: http://www.Justworks/multiple_crcl_2012.htm Stage 1: Some kidney damage normal GFR Stage 2: Mild kidney damage GFR 60-89 Stage 3: Moderate kidney damage GFR 30-59 Stage 4: Severe kidney damage GFR 15-29 Stage 5: Severe kidney damage GFR <15 ESRD - chronic treatment by dialysis or transplant CBC with Auto Differentialon 08-26-2021 Absolute Eos # <0.03 [place] [facility] Absolute Immature Granulocyte 0.30 [facility] Absolute Lymph # 1.07 Low [facility] Absolute [place] # 0.34 [facility] Basophils (Bld) [#/Vol] 10*3/uL [facility] Basophils/100 WBC (Bld) 0 % 0 - 2 % [facility] Eosinophils/100 WBC (Bld) 0 % Low 1 - 4 % [facility] Hematocrit (Bld) [Volume fraction] 33.9 % Low 36.3 - 47.1 % [facility] Hemoglobin (Bld) [Mass/Vol] 10.7 g/dL Low 11.9 - 15.1 g/dL [facility] Immature granulocytes/100 WBC (Bld) 3 % High 0 [facility] Interpretation and review of laboratory results Abnormal [facility] Lymphocytes/100 WBC (Bld) 11 % Low 24 - 43 % [facility] MCH (RBC) [Entitic mass] 29.6 pg 25.2 - 33.5 pg [facility] MCHC (RBC) [Mass/Vol] 31.6 g/dL 28.4 - 34.8 g/dL [facility] MCV (RBC) [Entitic vol] 93.9 fL 82.6 - 102.9 fL [facility] Monocytes/100 WBC (Bld) 3 % 3 - 12 % [facility] NRBC Automated 0.2 High 0.0 per 100 WBC [facility] Platelet distribution width (Bld) [Ratio] 15.1 % High 11.8 - 14.4 % [facility] Platelet mean volume (Bld) [Entitic vol] 9.3 fL 8.1 - 13.5 fL [facility] Platelets (Bld) [#/Vol] 423 10*3/uL [facility] RBC (Bld) [#/Vol] 3.61 10*6/uL Low 3.95 - 5.1 1 m/uL [facility] Segmented neutrophils/100 WBC (Bld) 83 % High 36 - 65 % [facility] Segs Absolute 8.14 High [facility] WBC (Bld) [#/Vol] 9.9 10*3/uL [facility] Comprehensive Metabolic Pane markell 08-26-2021 Albumin [Mass/Vol] 3.1 g/dL Low 3.5 - 5.2 g/dL [facility] Albumin/Globulin [Mass ratio] 1.0 {ratio} [facility] ALP (Bld) [Catalytic activity/Vol] 166 U/L High 35 - 104 U/L [facility] ALT [Catalytic activity/Vol] U/L Low 5 - 33 U/L [facility] Anion gap [Moles/Vol] 7 mmol/L Low 9 - 17 mmol/L [facility] AST [Catalytic activity/Vol] 21 U/L <32 [facility] Bilirubin [Mass/Vol] 0.24 mg/dL Low 0.3 - 1 .2 mg/dL [facility] Calcium [Mass/Vol] 9.8 mg/dL 8.6 - 10. 4 mg/dL [facility] Chloride [Moles/Vol] 100 mmol/L 98 - 10 7 mmol/L [facility] CO2 [Moles/Vol] 30 mmol/L 20 - 31 mmol/L [facility] Creatinine [Mass/Vol] 0.34 mg/dL Low 0.50 - 0.90 mg/dL [facility] Free PSA/Total PSA [Mass fraction] 6.3 g/dL Low 6.4 - 8.3 g/dL [facility] GFR >60 >60 mL/min [facility] GFR Non- >60 >60 mL/min [facility] Glucose [Mass/Vol] 104 mg/dL High 70 - 99 mg/dL [facility] Interpretation and review of laboratory results Abnormal [facility] Potassium [Moles/Vol] 3.9 mmol/L 3.7 - 5.3 mmol/L [facility] Sodium [Moles/Vol] 137 mmol/L 135 - 144 mmol/L [facility] Urea nitrogen (BldV) [Mass/Vol] 7 mg/dL Low 8 - 23 mg/dL [facility] Urea nitrogen/Creatinine (Bld) [Mass ratio] 21 High [facility] Laboratory - Chemistry and C hemistry - challengeon 08-26-2021 GFR/1.73 sq M.predicted MDRD (S/P/Bld) [Vol rate/Area] [facility] Comment on above: Average GFR for 60-6 9 years old: 85 mL/min/1.73sq m Chronic Kidney Disease: <60 mL/min/1.73sq m Kidney failure: <15 mL/min/1.73sq m eGFR calculated using average adult body mass. Additional eGFR calculator available at: http://www.Justworks/multiple_crcl_2012.htm Stage 1: Some kidney damage normal GFR Stage 2: Mild kidney damage GFR 60-89 Stage 3: Moderate kidney damage GFR 30-59 Stage 4: Severe kidney damage GFR 15-29 Stage 5: Severe kidney damage GFR <15 ESRD - chronic treatment by dialysis or transplant Basic Metab w/rfx MGon 08-21 Potassium [Moles/Vol] 3.0 mmol/L Low 3.7-5.3 [facility] Comment on above: Performed By: #### C OVRB #### [facility] [address] [place] [address] Blood Bank Booking Clerk: Chriss Townsend MD (cont.) [facility] Comment on above: Result Comment: Aver age GFR for 60-69 years old: 85 mL/min/1.73sq m Chronic Kidney Disease: <60 mL/min/1.73sq m Kidney failure: <15 mL/min/1.73sq m eGFR calculated using average adult body mass. Additional eGFR calculator available at: http://www.Justworks/multiple_crcl_2012.htm Performed By: #### C OVRB #### [address] [address] Blood Bank Booking Clerk: Chriss Townsend MD Anion gap [Moles/Vol] 13 mmol/L Normal 9-17 [facility] Comment on above: Performed By: #### C OVRB #### [facility] [address] [place] [address] Blood Bank Booking Clerk: Chriss Townsend MD Calcium [Mass/Vol] 8.5 mg/dL Low 8.6-10.4 [facility] Comment on above: Performed By: #### C OVRB #### [facility] [employer] [address] [place] [address] [phone] Blood Bank Booking Clerk: Chriss Townsend MD Chloride [Moles/Vol] 103 mmol/L Normal 98-107 [facility] Comment on above: Performed By: #### C OVRB #### [address] [address] Blood Bank Booking Clerk: Chriss Townsend MD CO2 [Moles/Vol] 23 mmol/L Normal 20-31 [facility] Comment on above: Performed By: #### C OVRB #### [address] [address] Blood Bank Booking Clerk: Chriss Townsend MD Creatinine [Mass/Vol] 0.28 mg/dL Low 0.50-0.90 [facility] Comment on above: Performed By: #### C OVRB #### [address] [address] Blood Bank Booking Clerk: Chriss Townsend MD GFR, Amer >60 Normal >60 [facility] Comment on above: Performed By: #### C OVRB #### [address] [address] Blood Bank Booking Clerk: Chriss Townsend MD GFR,non Amer >60 Normal >60 [facility] Comment on above: Performed By: #### C OVRB #### [address] [address] Blood Bank Booking Clerk: Crhiss Townsend MD Glucose [Mass/Vol] 79 mg/dL Normal 70-99 [facility] Comment on above: Performed By: #### C OVRB #### [address] [address] Blood Bank Booking Clerk: Chriss Townsend MD Sodium [Moles/Vol] 139 mmol/L Normal 135-144 [facility] Comment on above: Performed By: #### C OVRB #### [address] [address] Blood Bank Booking Clerk: Chriss Townsend MD Urea nitrogen [Mass/Vol] 5 mg/dL Low 8-23 [facility] Comment on above: Performed By: #### C OVRB #### [facility] [address] [phone] Blood Bank Booking Clerk: Chriss Townsend MD Basic Metabolic Panel w/ Ref sujatha to MGon 08-21-2021 Anion gap [Moles/Vol] 13 mmol/L 9 - 17 mmol/L [facility] [employer] Calcium [Mass/Vol] 8.5 mg/dL Low 8.6 - 10. 4 mg/dL [facility] [employer] Chloride [Moles/Vol] 103 mmol/L 98 - 10 7 mmol/L [facility] [employer] CO2 [Moles/Vol] 23 mmol/L 20 - 31 mmol/L [facility] Creatinine [Mass/Vol] 0.28 mg/dL Low 0.50 - 0.90 mg/dL [facility] GFR >60 >60 mL/min [facility] GFR Non- >60 >60 mL/min [facility] GFR/1.73 sq M.predicted MDRD (S/P/Bld) [Vol rate/Area] [facility] Comment on above: Average GFR for 60-6 9 years old: 85 mL/min/1.73sq m Chronic Kidney Disease: <60 mL/min/1.73sq m Kidney failure: <15 mL/min/1.73sq m eGFR calculated using average adult body mass. Additional eGFR calculator available at: http://www.Ping Communication.Opicos/multiple_crcl_2011.htm Glucose [Mass/Vol] 79 mg/dL 70 - 99 mg/dL [facility] Interpretation and review of laboratory results Abnormal [facility] Potassium [Moles/Vol] 3.0 mmol/L Low 3.7 - 5.3 mmol/L [facility] Sodium [Moles/Vol] 139 mmol/L 135 - 144 mmol/L [facility] Urea nitrogen (BldV) [Mass/Vol] 5 mg/dL Low 8 - 23 mg/dL [facility] CBC with Auto Differentialon 08-21-2021 Absolute Eos # 0.23 [facility] Absolute Immature Granulocyte 0.53 High [facility] Absolute Lymph # 0.83 Low [facility] Absolute [place] # 0.15 [facility] Basophils (Bld) [#/Vol] 0.00 10*3/uL [facility] Basophils/100 WBC (Bld) 0 % 0 - 2 % [facility] Eosinophils/100 WBC (Bld) 3 % 1 - 4 % [facility] Hematocrit (Bld) [Volume fraction] 32.9 % Low 36.3 - 47.1 % [facility] Hemoglobin.gastrointe stinal spec 1 Ql (Stl) 10.6 g/dL Low 11.9 - 15.1 g/dL [facility] Immature granulocytes/100 WBC (Bld) 7 % High 0 [facility] Interpretation and review of laboratory results Abnormal [facility] Lymphocytes/100 WBC (Bld) 11 % Low 24 - 44 % [facility] MCH (RBC) [Entitic mass] 29.4 pg 25.2 - 33.5 pg [facility] MCHC (RBC) [Mass/Vol] 32.2 g/dL 28.4 - 34.8 g/dL [facility] MCV (RBC) [Entitic vol] 91.1 fL 82.6 - 102.9 fL [facility] Monocytes/100 WBC (Bld) 2 % 1 - 7 % [facility] Morphology Demetrio (Bld) [Interp] ANISOCYTOSIS PRESENT [facility] Morphology Demetrio (Bld) [Interp] 1+ POLYCHROMASIA [facility] NRBC Automated 0.0 0.0 per 100 WBC [facility] Platelet distribution width (Bld) [Ratio] 14.8 % High 11.8 - 14.4 % [facility] Platelet mean volume (Bld) [Entitic vol] 9.7 fL 8.1 - 13.5 fL [facility] Platelets (Bld) [#/Vol] 203 10*3/uL [facility] RBC (Bld) [#/Vol] 3.61 10*6/uL Low 3.95 - 5.1 1 m/uL [facility] RBC (Bld) [#/Vol] ANISOCYTOSIS PRESENT [facility] Segmented neutrophils/100 WBC (Bld) 77 % High 36 - 66 % [facility] Segs Absolute 5.76 [facility] WBC (Bld) [#/Vol] 7.5 10*3/uL [facility] CBC with Diffon 08-21-2021 Abs. Basophil 0.00 k/uL Normal 0.0-0.2 [facility] Comment on above: Performed By: #### C OVRB #### [address] [address] Blood Bank Booking Clerk: Chriss Townsend MD Abs.Imm.Granulocyte 0.53 k/uL High 0.00-0.30 [facility] Comment on above: Performed By: #### C OVRB #### [address] [address] Blood Bank Booking Clerk: Chriss Townsend MD Abs.Neutrophil (Seg) 5.76 k/uL Normal 1.8-7.7 [facility] Comment on above: Performed By: #### C OVRB #### [address] [address] Blood Bank Booking Clerk: Chriss Townsend MD Basophils/100 WBC (Bld) 0 % Normal 0-2 [facility] Comment on above: Performed By: #### C OVRB #### [address] [address] Blood Bank Booking Clerk: Chriss Townsend MD Eosinophils (Bld) [#/Vol] 0.23 10*3/uL Normal 0.0-0.4 [facility] Comment on above: Performed By: #### C OVRB #### [address] [address] Blood Bank Booking Clerk: Chriss Townsend MD Eosinophils/100 WBC (Bld) 3 % Normal 1-4 [facility] Comment on above: Performed By: #### C OVRB #### [address] [address] Blood Bank Booking Clerk: Chriss Townsend MD Immature granulocytes/100 WBC (Bld) 7 % High 0 [facility] Comment on above: Performed By: #### C OVRB #### [address] [address] Blood Bank Booking Clerk: Chriss Townsend MD Lymphocytes (Bld) [#/Vol] 0.83 10*3/uL Low 1.0-4.8 [facility] Comment on above: Performed By: #### C OVRB #### [address] [address] Blood Bank Booking Clerk: Chriss Townsend MD Lymphocytes/100 WBC (Bld) 11 % Low 24-44 [facility] Comment on above: Performed By: #### C OVRB #### [address] [address] Blood Bank Booking Clerk: Chriss Townsend MD Monocytes (Bld) [#/Vol] 0.15 10*3/uL Normal 0.1-0.8 [facility] Comment on above: Performed By: #### C OVRB #### [address] [address] Blood Bank Booking Clerk: Chriss Townsend MD Monocytes/100 WBC (Bld) 2 % Normal 1-7 [facility] Comment on above: Performed By: #### C OVRB #### [address] [address] Blood Bank Booking Clerk: Chriss Townsend MD Morphology Demetrio (Bld) [Interp] ANISOCYTOSIS PRESENT Normal [facility] Comment on above: Result Comment: 1+ POLYCHROMASIA Performed By: #### C OVRB #### [address] [address] Blood Bank Booking Clerk: Chriss Townsend MD Neutrophil (Seg) 77 % High 36-66 [facility] Comment on above: Performed By: #### C OVRB #### [address] [address] Blood Bank Booking Clerk: Chriss Townsend MD Erythrocyte distribution width (RBC) [Ratio] 14.8 % High 11.8-14.4 [facility] Comment on above: Performed By: #### C OVRB #### [address] [address] Blood Bank Booking Clerk: Chriss Townsend MD Hematocrit (Bld) [Volume fraction] 32.9 % Low 36.3-47.1 [facility] Comment on above: Performed By: #### C OVRB #### [address] [address] Blood Bank Booking Clerk: Chriss Townsend MD Hemoglobin (Bld) [Mass/Vol] 10.6 g/dL Low 11.9-15.1 [facility] Comment on above: Performed By: #### C OVRB #### [address] [address] Blood Bank Booking Clerk: Chriss Townsend MD MCH (RBC) [Entitic mass] 29.4 pg Normal 25.2-33.5 [facility] Comment on above: Performed By: #### C OVRB #### [address] [address] Blood Bank Booking Clerk: Chriss Townsend MD MCHC (RBC) [Mass/Vol] 32.2 g/dL Normal 28.4-34.8 [facility] Comment on above: Performed By: #### C OVRB #### [address] [address] Blood Bank Booking Clerk: Chriss Townsend MD MCV (RBC) [Entitic vol] 91.1 fL Normal 82.6-102.9 [facility] Comment on above: Performed By: #### C OVRB #### [address] [address] Blood Bank Booking Clerk: Chriss Townsend MD NRBC Automated 0.0 per 100 WBC Normal 0.0 [facility] Comment on above: Performed By: #### C OVRB #### [address] [address] Blood Bank Booking Clerk: Chriss Townsend MD Platelet mean volume (Bld) [Entitic vol] 9.7 fL Normal 8.1-13.5 [facility] Comment on above: Performed By: #### C OVRB #### [address] [address] Blood Bank Booking Clerk: Chriss Townsend MD Platelets (Bld) [#/Vol] 203 10*3/uL Normal 138-453 [facility] Comment on above: Performed By: #### C OVRB #### [address] [address] Blood Bank Booking Clerk: Chriss Townsend MD RBC (Bld) [#/Vol] 3.61 10*6/uL Low 3.95-5.11 [facility] Comment on above: Performed By: #### C OVRB #### [address] [address] Blood Bank Booking Clerk: Chriss Townsend MD RBC morphology finding Nom (Bld) ANISOCYTOSIS PRESENT Normal [facility] Comment on above: Performed By: #### C OVRB #### [address] [address] Blood Bank Booking Clerk: Chriss Townsend MD WBC (Bld) [#/Vol] 7.5 10*3/uL Normal 3.5-11.3 [facility] Comment on above: Performed By: #### C OVRB #### [facility] [address] [place], [place] [phone] Blood Bank Booking Clerk: Chriss Townsend MD Cult,Bloodon 08-21-2021 Cult,Blood Specimen Description .BLOOD Special Requests L WRIST 1 ML Culture NO GROWTH 5 DAYS Report Status FINAL 08/21/2021 [facility] Comment on above: Performed By: #### C RP CDP, SED #### [facility] [place], [place] [phone] Blood Bank Booking Clerk: Chriss Townsend MD Cult,Blood Specimen Description .BLOOD Culture NO GROWTH 5 DAYS Report Status FINAL 08/21/2021 [facility] Comment on above: Performed By: #### C RP CDP, SED #### [facility] [address] [place] [address] [phone] Blood Bank Booking Clerk: Chriss Townsend MD Culture, Blood 1on 2 Bacteria identified Cx Nom (Unsp spec) NO GROWTH 5 DAYS [facility] [employer] Special Requests L WRIST 1 ML [facility] [employer] Specimen Description .BLOOD [facility] Bacteria identified Cx Nom (Unsp spec) NO GROWTH 5 DAYS [facility] [employer] Specimen Description .BLOOD [facility] [employer] Magnesiumon 08-21-2021 Magnesium [Mass/Vol] 1.8 mg/dL Normal 1.6-2.6 [facility] Comment on above: Performed By: #### C OVRB #### [facility] [place], [place] [phone] Blood Bank Booking Clerk: Chriss Townsend MD Magnesium [Mass/Vol] 1.8 mg/dL 1.6 - 2 .6 mg/dL [facility] [employer] [facility] [employer] No Panel Informationon 08-21 Venu De La Garza RN 08/21/2021 9:37 AM Picc placement order: Benefits include stable, buttermaker continuous churn intravenous access. Blood draws. Peripheral vein preservation. [...] out Performed using [employer] Lot #: [id number] Expiration date: 07/20/2022 Catheter size: 4.5 arabic Total length: 45cm Total length inserted: 45cm [...] with an education handout on catheter insertion. [facility] FAQ Catheter Associated Blood Stream Infections and [facility] [id number] REV. 10/02 Nursing and Booklet left at bedside or in chart. Patient (Family or POA) acknowledged understanding of information taught and agreed to procedure. [employer] Work Phone: Tip Confirmation System (TCS ) and/ or Chest Xray for tip confirmationon 08-21-2021 [employer] Phone: Basic Metab w/rfx MGon 08-20 Potassium [Moles/Vol] 2.8 mmol/L Critically low 3.7-5.3 [facility] Comment on above: Performed By: #### C RP, CDP, SED #### [facility] [address] [place] [address] Blood Bank Booking Clerk: Chirss Townsend MD (cont.) Normal [facility] Comment on above: Result Comment: Aver age GFR for 60-69 years old: 85 mL/min/1.73sq m Chronic Kidney Disease: <60 mL/min/1.73sq m Kidney failure: <15 mL/min/1.73sq m eGFR calculated using average adult body mass. Additional eGFR calculator available at: http://www.Justworks/multiple_crcl_2012.htm Performed By: #### C RP, CDP, SED #### [address] [address] Blood Bank Booking Clerk: Chriss Townsend MD Anion gap [Moles/Vol] 11 mmol/L Normal 9-17 [facility] Comment on above: Performed By: #### C RP, CDP, SED #### [address] [address] Blood Bank Booking Clerk: Chriss Townsend MD Calcium [Mass/Vol] 8.8 mg/dL Normal 8.6-10.4 [facility] Comment on above: Performed By: #### C RP, CDP, SED #### [facility] [employer] [address] [place] [address] Blood Bank Booking Clerk: Chriss Townsend MD Chloride [Moles/Vol] 103 mmol/L Normal 98-107 [facility] Comment on above: Performed By: #### C RP, CDP, SED #### [facility] [employer] [address] [place] [address] Blood Bank Booking Clerk: Chriss Townsend MD CO2 [Moles/Vol] 24 mmol/L Normal 20-31 [facility] Comment on above: Performed By: #### C RP, CDP, SED #### [facility] [employer] [address] [place] [address] Blood Bank Booking Clerk: Chriss Townsend MD Creatinine [Mass/Vol] 0.34 mg/dL Low 0.50-0.90 [facility] Comment on above: Performed By: #### C RP, CDP, SED #### [facility] [address] [place] [address] Blood Bank Booking Clerk: Chriss Townsend MD GFR, Amer >60 Normal >60 [facility] Comment on above: Performed By: #### C RP, CDP, SED #### [facility] [address] [place] [address] Blood Bank Booking Clerk: Chriss Townsend MD GFR,non Amer >60 Normal >60 [facility] Comment on above: Performed By: #### C RP, CDP, SED #### [facility] [address] [place] [address] Blood Bank Booking Clerk: Chriss Townsend MD Glucose [Mass/Vol] 87 mg/dL Normal 70-99 [facility] Comment on above: Performed By: #### C RP, CDP, SED #### [facility] [employer] [address] [place] [address] Blood Bank Booking Clerk: Chriss Townsend MD Sodium [Moles/Vol] 138 mmol/L Normal 135-144 [facility] Comment on above: Performed By: #### C RP, CDP, SED #### [facility] [employer] [address] [place] [address] Blood Bank Booking Clerk: Chriss Townsend MD Urea nitrogen [Mass/Vol] 7 mg/dL Low 8-23 [facility] Comment on above: Performed By: #### C RP, CDP, SED #### [facility] [employer] [address] [place] [address] Blood Bank Booking Clerk: Chriss Townsend MD Basic Metabolic Panel w/ Ref sujatha to MG 08-20-2021 Anion gap [Moles/Vol] 11 mmol/L 9 - 17 mmol/L [facility] Calcium [Mass/Vol] 8.8 mg/dL 8.6 - 10. 4 mg/dL [facility] Chloride [Moles/Vol] 103 mmol/L 98 - 10 7 mmol/L [facility] CO2 [Moles/Vol] 24 mmol/L 20 - 31 mmol/L [facility] Creatinine [Mass/Vol] 0.34 mg/dL Low 0.50 - 0.90 mg/dL [facility] GFR >60 >60 mL/min [facility] GFR Non- >60 >60 mL/min [facility] GFR/1.73 sq M.predicted MDRD (S/P/Bld) [Vol rate/Area] [facility] Comment on above: Average GFR for 60-6 9 years old: 85 mL/min/1.73sq m Chronic Kidney Disease: <60 mL/min/1.73sq m Kidney failure: <15 mL/min/1.73sq m eGFR calculated using average adult body mass. Additional eGFR calculator available at: http://www.Justworks/multiple_crcl_2011.htm Glucose [Mass/Vol] 87 mg/dL 70 - 99 mg/dL [facility] Interpretation and review of laboratory results Abnormal [facility] Potassium [Moles/Vol] 2.8 mmol/L Critically low 3.7 - 5.3 mmol/L [facility] Sodium [Moles/Vol] 138 mmol/L 135 - 144 mmol/L [facility] Urea nitrogen (BldV) [Mass/Vol] 7 mg/dL Low 8 - 23 mg/dL [facility] C-Reactive Proteinon 08-20- 022 CRP [Mass/Vol] 151.9 mg/L High 0.0-5.0 [facility] Comment on above: Performed By: #### C RP, CDP, SED #### [facility] [address] [place] [address] Blood Bank Booking Clerk: Chriss Townsend MD CRP [Mass/Vol] 151.9 mg/L High 0.0 - 5.0 mg/L [facility] Interpretation and review of laboratory results Abnormal [facility] CBC with Auto Differentialon 08-20-2021 Absolute Eos # 0.00 [facility] S [facility] Absolute Immature Granulocyte 0.00 [facility] Absolute Lymph # 0.64 Low [facility] SECO URS [facility] Absolute [place] # 0.37 [facility] RS [facility] Basophils (Bld) [#/Vol] 0.00 10*3/uL [facility] Basophils/100 WBC (Bld) 0 % 0 - 2 % [facility] Eosinophils/100 WBC (Bld) 0 % Low 1 - 4 % [facility] Hematocrit (Bld) [Volume fraction] 33.6 % Low 36.3 - 47.1 % [facility] Hemoglobin.gastrointe stinal spec 1 Ql (Stl) 10.8 g/dL Low 11.9 - 15.1 g/dL [facility] Immature granulocytes/100 WBC (Bld) 0 % 0 [facility] Interpretation and review of laboratory results Abnormal [facility] Lymphocytes/100 WBC (Bld) 7 % Low 24 - 44 % [facility] MCH (RBC) [Entitic mass] 29.9 pg 25.2 - 33.5 pg [facility] MCHC (RBC) [Mass/Vol] 32.1 g/dL 28.4 - 34.8 g/dL [facility] MCV (RBC) [Entitic vol] 93.1 fL 82.6 - 102.9 fL [facility] Monocytes/100 WBC (Bld) 4 % 1 - 7 % [facility] Morphology Demetrio (Bld) [Interp] ANISOCYTOSIS PRESENT [facility] NRBC Automated 0.0 0.0 per 100 WBC [facility] Platelet distribution width (Bld) [Ratio] 14.6 % High 11.8 - 14.4 % [facility] Platelet mean volume (Bld) [Entitic vol] 9.6 fL 8.1 - 13.5 fL [facility] Platelets (Bld) [#/Vol] 169 10*3/uL [facility] RBC (Bld) [#/Vol] 3.61 10*6/uL Low 3.95 - 5.1 1 m/uL [facility] Segmented neutrophils/100 WBC (Bld) 89 % High 36 - 66 % [facility] Segs Absolute 8.19 High [facility] WBC (Bld) [#/Vol] 9.2 10*3/uL [facility] CBC with Diffon 08-20-2021 Abs. Basophil 0.00 k/uL Normal 0.0-0.2 [facility] Comment on above: Performed By: #### C RP, CDP, SED #### [facility] [address] [place] [address] Blood Bank Booking Clerk: Chriss Townsend MD Abs.Imm.Granulocyte 0.00 k/uL Normal 0.00-0.30 [facility] Comment on above: Performed By: #### C RP, CDP, SED #### [facility] [employer] [address] [place] [address] Blood Bank Booking Clerk: Chriss Townsend MD Abs.Neutrophil (Seg) 8.19 k/uL High 1.8-7.7 [facility] Comment on above: Performed By: #### C RP, CDP, SED #### [facility] [address] [place] [address] Blood Bank Booking Clerk: Chirss Townsend MD Basophils/100 WBC (Bld) 0 % Normal 0-2 [facility] Comment on above: Performed By: #### C RP, CDP, SED #### [facility] [address] [place] [address] Blood Bank Booking Clerk: Chriss Townsend MD Eosinophils (Bld) [#/Vol] 0.00 10*3/uL Normal 0.0-0.4 [facility] Comment on above: Performed By: #### C RP, CDP, SED #### [facility] [address] [place] [address] Blood Bank Booking Clerk: Chriss Townsend MD Eosinophils/100 WBC (Bld) 0 % Low 1-4 [facility] Comment on above: Performed By: #### C RP, CDP, SED #### [address] [address] Blood Bank Booking Clerk: Chriss Townsend MD Immature granulocytes/100 WBC (Bld) 0 % Normal 0 [facility] Comment on above: Performed By: #### C RP, CDP, SED #### [place] [address] Blood Bank Booking Clerk: Chriss Townsend MD Lymphocytes (Bld) [#/Vol] 0.64 10*3/uL Low 1.0-4.8 [facility] Comment on above: Performed By: #### C RP, CDP, SED #### [address] [address] Blood Bank Booking Clerk: Chriss Townsend MD Lymphocytes/100 WBC (Bld) 7 % Low 24-44 [facility] Comment on above: Performed By: #### C RP, CDP, SED #### [place] [address] Blood Bank Booking Clerk: Chriss Townsend MD Monocytes (Bld) [#/Vol] 0.37 10*3/uL Normal 0.1-0.8 [facility] Comment on above: Performed By: #### C RP, CDP, SED #### [place] [address] Blood Bank Booking Clerk: Chriss Townsend MD Monocytes/100 WBC (Bld) 4 % Normal 1-7 [facility] Comment on above: Performed By: #### C RP, CDP, SED #### [address] [address] Blood Bank Booking Clerk: Chriss Townsend MD Morphology Demetrio (Bld) [Interp] ANISOCYTOSIS PRESENT Normal [facility] Comment on above: Performed By: #### C RP, CDP, SED #### [address] [place] [address] Blood Bank Booking Clerk: Chriss Townsend MD Neutrophil (Seg) 89 % High 36-66 [facility] Comment on above: Performed By: #### C RP, CDP, SED #### [address] [address] Blood Bank Booking Clerk: Chriss Townsend MD Erythrocyte distribution width (RBC) [Ratio] 14.6 % High 11.8-14.4 [facility] Comment on above: Performed By: #### C RP, CDP, SED #### [facility] [employer] [address] [place] [address] Blood Bank Booking Clerk: Chriss Townsend MD Hematocrit (Bld) [Volume fraction] 33.6 % Low 36.3-47.1 [facility] Comment on above: Performed By: #### C RP, CDP, SED #### [facility] [employer] [address] [place] [address] Blood Bank Booking Clerk: Chriss Townsend MD Hemoglobin (Bld) [Mass/Vol] 10.8 g/dL Low 11.9-15.1 [facility] Comment on above: Performed By: #### C RP, CDP, SED #### [facility] [employer] [address] [place] [address] Blood Bank Booking Clerk: Chriss Townsend MD MCH (RBC) [Entitic mass] 29.9 pg Normal 25.2-33.5 [facility] Comment on above: Performed By: #### C RP, CDP, SED #### [facility] [employer] [address] [place] [address] Blood Bank Booking Clerk: Chriss Townsend MD MCHC (RBC) [Mass/Vol] 32.1 g/dL Normal 28.4-34.8 [facility] Comment on above: Performed By: #### C RP, CDP, SED #### [facility] [employer] [address] [place] [address] Blood Bank Booking Clerk: Chriss Townsend MD MCV (RBC) [Entitic vol] 93.1 fL Normal 82.6-102.9 [facility] Comment on above: Performed By: #### C RP, CDP, SED #### [address] [address] Blood Bank Booking Clerk: Chriss Townsend MD NRBC Automated 0.0 per 100 WBC Normal 0.0 [facility] Comment on above: Performed By: #### C RP, CDP, SED #### [address] [address] Blood Bank Booking Clerk: Chriss Townsend MD Platelet mean volume (Bld) [Entitic vol] 9.6 fL Normal 8.1-13.5 [facility] Comment on above: Performed By: #### C RP, CDP, SED #### [address] [address] Blood Bank Booking Clerk: Chriss Townsend MD Platelets (Bld) [#/Vol] 169 10*3/uL Normal 138-453 [facility] Comment on above: Performed By: #### C RP, CDP, SED #### [address] [address] Blood Bank Booking Clerk: Chriss Townsend MD RBC (Bld) [#/Vol] 3.61 10*6/uL Low 3.95-5.11 [facility] Comment on above: Performed By: #### C RP, CDP, SED #### [address] [address] Blood Bank Booking Clerk: Chriss Townsend MD WBC (Bld) [#/Vol] 9.2 10*3/uL Normal 3.5-11.3 [facility] Comment on above: Performed By: #### C RP, CDP, SED #### [address] [address] Blood Bank Booking Clerk: Chriss Townsend MD CT RADIUS ULNA RIGHT [...] Jett Dumont MD 08/20/21 Final result Normal [facility] Very limited exam. Subcutaneous edema about the [...] noted at the right posterior lung base. [facility] RIS CONSOLIDATED Jett Dumont MD - [...] at the dependent posterior right lung base. [employer] Work Phone: CT RADIUS ULNA RIGHT W CONTR ASTOrdered By: Jett Dumont on 08-20-2021 [employer] Work Phone: Crystals, Body Fluidon 08-20 Crystals, Fluid Negative NEGATIVE [employer] [facility] [facility] Comment on above: NO CRYSTALS SEEN Specimen type Nom (Spec) .SHOULDER [facility] Comment on above: RIGHT JOINT FLUID [employer] Crystals, Fluidson 2 Crystals,Fluid Negative Normal NEG [facility] Comment on above: Result Comment: NO C RYSTALS SEEN Performed By: #### F LCRYS, BFCNT #### [facility] [address] [phone] Blood Bank Booking Clerk: Chriss Townsend MD Magnesiumon 08-20-2021 Magnesium [Mass/Vol] 2.0 mg/dL Normal 1.6-2.6 [facility] Comment on above: Performed By: #### C RP, CDP, SED #### [facility] [employer] [address] [place] [address] [phone] Blood Bank Booking Clerk: Chriss Townsend MD Magnesium [Mass/Vol] 2.0 mg/dL 1.6 - 2 .6 mg/dL [facility] Basic Metab w/rfx MGon 08-19 (cont.) Normal [facility] Comment on above: Result Comment: Aver age GFR for 60-69 years old: 85 mL/min/1.73sq m Chronic Kidney Disease: <60 mL/min/1.73sq m Kidney failure: <15 mL/min/1.73sq m eGFR calculated using average adult body mass. Additional eGFR calculator available at: http://www.Justworks/multiple_crcl_2012.htm Performed By: #### C RP, CDP, SED #### [facility] [employer] [address] [place] [address] [phone] Blood Bank Booking Clerk: Chriss Townsend MD Anion gap [Moles/Vol] 12 mmol/L Normal 9-17 [facility] Comment on above: Performed By: #### C RP, CDP, SED #### [facility] [address] [place] [address] [phone] Blood Bank Booking Clerk: Chriss Townsend MD Calcium [Mass/Vol] 8.7 mg/dL Normal 8.6-10.4 [facility] Comment on above: Performed By: #### C RP, CDP, SED #### [facility] [address] [place] [address] [phone] Blood Bank Booking Clerk: Chriss Townsend MD Chloride [Moles/Vol] 106 mmol/L Normal 98-107 [facility] Comment on above: Performed By: #### C RP, CDP, SED #### [facility] [address] [place] [address] Blood Bank Booking Clerk: Chriss Townsend MD CO2 [Moles/Vol] 24 mmol/L Normal 20-31 [facility] Comment on above: Performed By: #### C RP, CDP, SED #### [facility] [address] [place] [address] Blood Bank Booking Clerk: Chriss Townsend MD Creatinine [Mass/Vol] 0.38 mg/dL Low 0.50-0.90 [facility] Comment on above: Performed By: #### C RP, CDP, SED #### [facility] [address] [place] [address] Blood Bank Booking Clerk: Chriss Townsend MD GFR, Amer >60 Normal >60 [facility] Comment on above: Performed By: #### C RP, CDP, SED #### [facility] [address] [place] [address] Blood Bank Booking Clerk: Chriss Townsend MD GFR,non Amer >60 Normal >60 [facility] Comment on above: Performed By: #### C RP, CDP, SED #### [facility] [address] [place] [address] Blood Bank Booking Clerk: Chriss Townsend MD Glucose [Mass/Vol] 81 mg/dL Normal 70-99 [facility] Comment on above: Performed By: #### C RP, CDP, SED #### [facility] [address] [place] [address] Blood Bank Booking Clerk: Chriss Townsend MD Potassium [Moles/Vol] 3.0 mmol/L Low 3.7-5.3 [facility] Comment on above: Performed By: #### C RP, CDP, SED #### [facility] [address] [place] [address] Blood Bank Booking Clerk: Chriss Townsend MD Sodium [Moles/Vol] 142 mmol/L Normal 135-144 [facility] Comment on above: Performed By: #### C RP, CDP, SED #### [facility] [address] [place], [place] [phone] Blood Bank Booking Clerk: Chriss Townsend MD Urea nitrogen [Mass/Vol] 11 mg/dL Normal 8-23 [facility] Comment on above: Performed By: #### C RP, CDP, SED #### [facility] [address] [place], [place] [phone] Blood Bank Booking Clerk: Chriss Townsend MD Basic Metabolic Panel w/ Ref sujatha to on 08-19-2021 Anion gap [Moles/Vol] 12 mmol/L 9 - 17 mmol/L [employer] Calcium [Mass/Vol] 8.7 mg/dL 8.6 - 10. 4 mg/dL [facility] Chloride [Moles/Vol] 106 mmol/L 98 - 10 7 mmol/L [facility] CO2 [Moles/Vol] 24 mmol/L 20 - 31 mmol/L [facility] Creatinine [Mass/Vol] 0.38 mg/dL Low 0.50 - 0.90 mg/dL [employer] GFR >60 >60 mL/min [facility] GFR Non- >60 >60 mL/min [facility] GFR/1.73 sq M.predicted MDRD (S/P/Bld) [Vol rate/Area] [facility] Comment on above: Average GFR for 60-6 9 years old: 85 mL/min/1.73sq m Chronic Kidney Disease: <60 mL/min/1.73sq m Kidney failure: <15 mL/min/1.73sq m eGFR calculated using average adult body mass. Additional eGFR calculator available at: http://www.[employer].Opicos/multiple_crcl_2012.htm Glucose [Mass/Vol] 81 mg/dL 70 - 99 mg/dL [facility] Interpretation and review of laboratory results Abnormal [facility] Potassium [Moles/Vol] 3.0 mmol/L Low 3.7 - 5.3 mmol/L [facility] Sodium [Moles/Vol] 142 mmol/L 135 - 144 mmol/L [facility] Urea nitrogen (BldV) [Mass/Vol] 11 mg/dL 8 - 23 mg/dL [facility] CBC with Auto Differentialon 08-19-2021 Absolute Eos # <0.03 [facility] Absolute Immature Granulocyte 0.27 [facility] Absolute Lymph # 0.75 Low [facility] Absolute [place] # 0.25 [facility] Basophils (Bld) [#/Vol] 0.03 10*3/uL [facility] Basophils/100 WBC (Bld) 0 % 0 - 2 % [facility] Eosinophils/100 WBC (Bld) 0 % Low 1 - 4 % [facility] Hematocrit (Bld) [Volume fraction] 36.0 % Low 36.3 - 47.1 % [facility] Hemoglobin.gastrointe stinal spec 1 Ql (Stl) 10.9 g/dL Low 11.9 - 15.1 g/dL [facility] Immature granulocytes/100 WBC (Bld) 3 % High 0 [facility] Interpretation and review of laboratory results Abnormal [facility] Lymphocytes/100 WBC (Bld) 8 % Low 24 - 43 % [facility] MCH (RBC) [Entitic mass] 28.9 pg 25.2 - 33.5 pg [facility] MCHC (RBC) [Mass/Vol] 30.3 g/dL 28.4 - 34.8 g/dL [facility] MCV (RBC) [Entitic vol] 95.5 fL 82.6 - 102.9 fL [facility] Monocytes/100 WBC (Bld) 3 % 3 - 12 % [facility] NRBC Automated 0.0 0.0 per 100 WBC [facility] Platelet distribution width (Bld) [Ratio] 14.4 % 11.8 - 14.4 % [facility] Platelet mean volume (Bld) [Entitic vol] 9.6 fL 8.1 - 13.5 fL [facility] Platelets (Bld) [#/Vol] 177 10*3/uL [facility] RBC (Bld) [#/Vol] 3.77 10*6/uL Low 3.95 - 5.1 1 m/uL [facility] Segmented neutrophils/100 WBC (Bld) 86 % High 36 - 65 % [facility] Segs Absolute 8.21 High [facility] WBC (Bld) [#/Vol] 9.5 10*3/uL [facility] CBC with Diffon 08-19-2021 Abs. Basophil 0.03 k/uL Normal 0.00-0.20 [facility] Comment on above: Performed By: #### C RP, CDP, SED #### [place] [address] Blood Bank Booking Clerk: Chriss Townsend MD Abs. Eosinophil <0.03 Normal 0.00-0.44 [facility] Comment on above: Performed By: #### C RP, CDP, SED #### [facility] [employer] [address] [place] [address] Blood Bank Booking Clerk: Chriss Townsend MD Abs.Imm.Granulocyte 0.27 k/uL Normal 0.00-0.30 [facility] Comment on above: Performed By: #### C RP, CDP, SED #### [facility] [employer] [address] [place] [address] Blood Bank Booking Clerk: Chriss Townsend MD Abs.Neutrophil (Seg) 8.21 k/uL High 1.50-8.10 [facility] Comment on above: Performed By: #### C RP, CDP, SED #### [facility] [employer] [address] [place] [address] Blood Bank Booking Clerk: Chriss Townsend MD Basophils/100 WBC (Bld) 0 % Normal 0-2 [facility] Comment on above: Performed By: #### C RP, CDP, SED #### [facility] [employer] [address] [place], [place] [phone] Blood Bank Booking Clerk: Chriss Townsend MD Eosinophils/100 WBC (Bld) 0 % Low 1-4 [facility] Comment on above: Performed By: #### C RP, CDP, SED #### [facility] [address] [place] [address] Blood Bank Booking Clerk: Chriss Townsend MD Erythrocyte distribution width (RBC) [Ratio] 14.4 % Normal 11.8-14.4 [facility] Comment on above: Performed By: #### C RP, CDP, SED #### [facility] [address] [place] [address] Blood [employer] Booking Clerk: Chriss Townsend MD Hematocrit (Bld) [Volume fraction] 36.0 % Low 36.3-47.1 [facility] Comment on above: Performed By: #### C RP, CDP, SED #### [facility] [employer] [address] [place] [address] [employer] Booking Clerk: Chriss Townsend MD Hemoglobin (Bld) [Mass/Vol] 10.9 g/dL Low 11.9-15.1 [facility] Comment on above: Performed By: #### C RP, CDP, SED #### [facility] [employer] [address] [place] [address] Blood [employer] Booking Clerk: Chriss Townsend MD Immature granulocytes/100 WBC (Bld) 3 % High 0 [facility] Comment on above: Performed By: #### C RP, CDP, SED #### [facility] [address] [place] [address] Blood Bank Booking Clerk: Chriss Townsend MD Lymphocytes (Bld) [#/Vol] 0.75 10*3/uL Low 1.10-3.70 [facility] Comment on above: Performed By: #### C RP, CDP, SED #### [facility] [address] [place] [address] Blood [employer] Booking Clerk: Chriss Townsend MD Lymphocytes/100 WBC (Bld) 8 % Low 24-43 [facility] Comment on above: Performed By: #### C RP, CDP, SED #### [address] [address] Blood Bank Booking Clerk: Chriss Townsend MD MCH (RBC) [Entitic mass] 28.9 pg Normal 25.2-33.5 [facility] Comment on above: Performed By: #### C RP, CDP, SED #### [address] [address] Blood Bank Booking Clerk: Chriss Townsend MD MCHC (RBC) [Mass/Vol] 30.3 g/dL Normal 28.4-34.8 [facility] Comment on above: Performed By: #### C RP, CDP, SED #### [place] [address] Blood Bank Booking Clerk: Chriss Townsend MD MCV (RBC) [Entitic vol] 95.5 fL Normal 82.6-102.9 [facility] Comment on above: Performed By: #### C RP, CDP, SED #### [address] [address] Blood [employer] Booking Clerk: Chriss Townsend MD Monocytes (Bld) [#/Vol] 0.25 10*3/uL Normal 0.10-1.20 [facility] Comment on above: Performed By: #### C RP, CDP, SED #### [address] [address] Blood Bank Booking Clerk: Chriss Townsend MD Monocytes/100 WBC (Bld) 3 % Normal 3-12 [facility] Comment on above: Performed By: #### C RP, CDP, SED #### [address] [address] [employer] Booking Clerk: Chriss Townsend MD Neutrophil (Seg) 86 % High 36-65 [facility] Comment on above: Performed By: #### C RP, CDP, SED #### [address] [address] [employer] Booking Clerk: Chriss Townsend MD NRBC Automated 0.0 per 100 WBC Normal 0.0 [facility] Comment on above: Performed By: #### C RP, CDP, SED #### [address] [address] [employer] Booking Clerk: Chriss Townsend MD Platelet mean volume (Bld) [Entitic vol] 9.6 fL Normal 8.1-13.5 [facility] Comment on above: Performed By: #### C RP, CDP, SED #### [address] [address] [employer] Booking Clerk: Chriss Townsend MD Platelets (Bld) [#/Vol] 177 10*3/uL Normal 138-453 [facility] Comment on above: Performed By: #### C RP, CDP, SED #### [address] [address] [employer] Booking Clerk: Chriss Townsend MD RBC (Bld) [#/Vol] 3.77 10*6/uL Low 3.95-5.11 [facility] Comment on above: Performed By: #### C RP, CDP, SED #### [address] [address] Blood [employer] Booking Clerk: Chriss Townsend MD WBC (Bld) [#/Vol] 9.5 10*3/uL Normal 3.5-11.3 [facility] Comment on above: Performed By: #### C RP, CDP, SED #### [address] [address] Blood [employer] Booking Clerk: Chriss Townsend MD Cult,Aerobe/Anaerobeon 08-19 Cult,Aerobe/Anaerobe Specimen [...] Tetracycline <=1 SUSCEPTIBLE Trimethoprim/Sulfa <=10 SUSCEPTIBLE Susceptible [facility] Comment on above: Performed By: #### C MARC, SEBASTIAN, SED #### [facility] [employer] [address] [place] [address] Blood Bank Booking Clerk: Chriss Townsend MD Cult,Aerobe/Anaerobe Specimen Descriptio n [...] Tetracycline <=1 SUSCEPTIBLE Trimethoprim/Sulfa <=10 SUSCEPTIBLE Susceptible [facility] Comment on above: Performed By: #### C RP, CDP, SED #### [facility] [employer] [address] [place] [address] Blood Bank Booking Clerk: Chriss Townsend MD Culture, Anaerobic and Aerob icon 08-19-2021 Bacteria identified Cx Nom (Unsp spec) STAPHYLOCOCCUS AUREUS LIGHT GROWTH This isolate is methicillin susceptible. Abnormal [facility] Bacteria identified Cx Nom (Unsp spec) CALLED TO TERRI Hensley 08/17/21 13:40 [facility] Bacteria identified Cx Nom (Unsp spec) No anaerobic organisms isolated at 5 days. [facility] Direct Exam MODERATE NEUTROPHILS Abnormal [facility] Direct Exam NO BACTERIA SEEN [facility] Interpretation and review of laboratory results Abnormal [facility] Specimen Description .SHOULDER RIGHT [facility] Magnesiumon 08-19-2021 Magnesium [Mass/Vol] 1.7 mg/dL Normal 1.6-2.6 [facility] Comment on above: Performed By: #### C OVRB #### [facility] [address] [place] [address] [phone] Blood Bank Booking Clerk: Chriss Townsend MD Magnesium [Mass/Vol] 1.7 mg/dL 1.6 - 2 .6 mg/dL [facility] Basic Metab w/rfx MGon 08-18 (cont.) Normal [facility] Comment on above: Result Comment: Aver age GFR for 60-69 years old: 85 mL/min/1.73sq m Chronic Kidney Disease: <60 mL/min/1.73sq m Kidney failure: <15 mL/min/1.73sq m eGFR calculated using average adult body mass. Additional eGFR calculator available at: http://www.[employer].Opicos/multiple_crcl_2012.htm Performed By: #### C RP, CDP, SED #### [facility] [address] [place] [address] Blood Bank Booking Clerk: Chriss Townsend MD Anion gap [Moles/Vol] 9 mmol/L Normal 9-17 [facility] Comment on above: Performed By: #### C RP, CDP, SED #### [facility] [address] [place] [address] Blood [employer] Booking Clerk: Chriss Townsend MD Calcium [Mass/Vol] 9.4 mg/dL Normal 8.6-10.4 [facility] Comment on above: Performed By: #### C RP, CDP, SED #### [facility] [address] [place] [address] Blood Bank Booking Clerk: Chriss Townsend MD Chloride [Moles/Vol] 107 mmol/L Normal 98-107 [facility] Comment on above: Performed By: #### C RP, CDP, SED #### [facility] [address] [place] [address] Blood Bank Booking Clerk: Chriss Townsend MD CO2 [Moles/Vol] 21 mmol/L Normal 20-31 [facility] Comment on above: Performed By: #### C RP, CDP, SED #### [facility] [address] [place] [address] [employer] Booking Clerk: Chriss Townsend MD Creatinine [Mass/Vol] 0.42 mg/dL Low 0.50-0.90 [facility] Comment on above: Performed By: #### C RP, CDP, SED #### [facility] [address] [place] [address] [employer] Booking Clerk: Chriss Townsend MD GFR, Amer >60 Normal >60 [facility] Comment on above: Performed By: #### C RP, CDP, SED #### [facility] [address] [place] [address] [employer] Booking Clerk: Chriss Townsend MD GFR,non Amer >60 Normal >60 [facility] Comment on above: Performed By: #### C RP, CDP, SED #### [facility] [address] [place] [phone] Blood Bank Booking Clerk: Chriss Townsend MD Glucose [Mass/Vol] 139 mg/dL High 70-99 [facility] Comment on above: Performed By: #### C RP, CDP, SED #### [facility] [address] [place] [address]01 Blood Bank Booking Clerk: Chriss Townsend MD Potassium [Moles/Vol] 3.5 mmol/L Low 3.7-5.3 [facility] Comment on above: Performed By: #### C RP, CDP, SED #### [facility] [address] [place], [place] [phone] Blood Bank Booking Clerk: Chriss Townsend MD Sodium [Moles/Vol] 137 mmol/L Normal 135-144 [facility] Comment on above: Performed By: #### C RP, CDP, SED #### [facility] [address] [place] [address] [phone] Blood Bank Booking Clerk: Chriss Townsend MD Urea nitrogen [Mass/Vol] 17 mg/dL Normal 8-23 [facility] Comment on above: Performed By: #### C RP, CDP, SED #### [facility] [address] [place] [address] [phone] Blood Bank Booking Clerk: Chriss Townsend MD Basic Metabolic Panel w/ Ref sujatha to MGon 08-18-2021 Anion gap [Moles/Vol] 9 mmol/L 9 - 17 mmol/L [facility] [employer] Calcium [Mass/Vol] 9.4 mg/dL 8.6 - 10. 4 mg/dL [facility] [employer] Chloride [Moles/Vol] 107 mmol/L 98 - 10 7 mmol/L [facility] [employer] CO2 [Moles/Vol] 21 mmol/L 20 - 31 mmol/L [facility] [employer] Creatinine [Mass/Vol] 0.42 mg/dL Low 0.50 - 0.90 mg/dL [facility] GFR >60 >60 mL/min [facility] GFR Non- >60 >60 mL/min [facility] GFR/1.73 sq M.predicted MDRD (S/P/Bld) [Vol rate/Area] [facility] Comment on above: Average GFR for 60-6 9 years old: 85 mL/min/1.73sq m Chronic Kidney Disease: <60 mL/min/1.73sq m Kidney failure: <15 mL/min/1.73sq m eGFR calculated using average adult body mass. Additional eGFR calculator available at: http://www.Justworks/multiple_crcl_2012.htm Glucose [Mass/Vol] 139 mg/dL High 70 - 99 mg/dL [facility] Potassium [Moles/Vol] 3.5 mmol/L Low 3.7 - 5.3 mmol/L [facility] Sodium [Moles/Vol] 137 mmol/L 135 - 144 mmol/L [facility] Urea nitrogen (BldV) [Mass/Vol] 17 mg/dL 8 - 23 mg/dL [facility] C-Reactive Proteinon 022 CRP [Mass/Vol] 104.5 mg/L High 0.0-5.0 [facility] Comment on above: Performed By: #### C RP, CDP, SED #### [facility] [address] [phone] Blood Bank Booking Clerk: Chriss Townsend MD CRP [Mass/Vol] 104.5 mg/L High 0.0 - 5.0 mg/L [facility] CBC with Auto Differentialon 08-18-2021 Absolute Eos # 0.00 [facility] Absolute Immature Granulocyte 0.00 [facility] Absolute Lymph # 0.66 Low [facility] Absolute [place] # 0.19 [facility] Basophils (Bld) [#/Vol] 0.00 10*3/uL [facility] Basophils/100 WBC (Bld) 0 % 0 - 2 % [facility] Eosinophils/100 WBC (Bld) 0 % Low 1 - 4 % [facility] Hematocrit (Bld) [Volume fraction] 31.1 % Low 36.3 - 47.1 % [facility] Hemoglobin.gastrointe stinal spec 1 Ql (Stl) 9.9 g/dL Low 11.9 - 15.1 g/dL [facility] Immature granulocytes/100 WBC (Bld) 0 % 0 [facility] Interpretation and review of laboratory results Abnormal [facility] Lymphocytes/100 WBC (Bld) 7 % Low 24 - 44 % [facility] MCH (RBC) [Entitic mass] 29.6 pg 25.2 - 33.5 pg [facility] MCHC (RBC) [Mass/Vol] 31.8 g/dL 28.4 - 34.8 g/dL [facility] MCV (RBC) [Entitic vol] 92.8 fL 82.6 - 102.9 fL [facility] Monocytes/100 WBC (Bld) 2 % 1 - 7 % [facility] Morphology Demetrio (Bld) [Interp] Normal [facility] NRBC Automated 0.0 0.0 per 100 WBC [facility] Platelet distribution width (Bld) [Ratio] 14.4 % 11.8 - 14.4 % [facility] Platelet mean volume (Bld) [Entitic vol] 9.8 fL 8.1 - 13.5 fL [facility] Platelets (Bld) [#/Vol] 164 10*3/uL [facility] RBC (Bld) [#/Vol] 3.35 10*6/uL Low 3.95 - 5.1 1 m/uL [facility] Segmented neutrophils/100 WBC (Bld) 91 % High 36 - 66 % [facility] Segs Absolute 8.55 High [facility] WBC (Bld) [#/Vol] 9.4 10*3/uL [facility] CBC with Diffon 08-18-2021 Abs. Basophil 0.00 k/uL Normal 0.0-0.2 [facility] Comment on above: Performed By: #### C SEBASTIAN TRAN, SED #### [facility] [place], [place] [phone] Blood Bank Booking Clerk: Chriss Townsend MD Abs.Imm.Granulocyte 0.00 k/uL Normal 0.00-0.30 [facility] Comment on above: Performed By: #### C RP, CDP, SED #### [facility] [address] [place], [place] [phone] Blood Bank Booking Clerk: Chriss Townsend MD Abs.Neutrophil (Seg) 8.55 k/uL High 1.8-7.7 [facility] Comment on above: Performed By: #### C RP, CDP, SED #### [address] [address] Blood Bank Booking Clerk: Chriss Townsend MD Basophils/100 WBC (Bld) 0 % Normal 0-2 [facility] Comment on above: Performed By: #### C RP, CDP, SED #### [address] [address] Blood Bank Booking Clerk: Chriss Townsend MD Eosinophils (Bld) [#/Vol] 0.00 10*3/uL Normal 0.0-0.4 [facility] Comment on above: Performed By: #### C RP, CDP, SED #### [address] [address] Blood Bank Booking Clerk: Chriss Townsend MD Eosinophils/100 WBC (Bld) 0 % Low 1-4 [facility] Comment on above: Performed By: #### C RP, CDP, SED #### [address] [address] Blood Bank Booking Clerk: Chriss Townsend MD Immature granulocytes/100 WBC (Bld) 0 % Normal 0 [facility] Comment on above: Performed By: #### C RP, CDP, SED #### [address] [address] Blood Bank Booking Clerk: Chriss Townsend MD Lymphocytes (Bld) [#/Vol] 0.66 10*3/uL Low 1.0-4.8 [facility] Comment on above: Performed By: #### C RP, CDP, SED #### [facility] [employer] [address] [place] [address] Blood Bank Booking Clerk: Chriss Townsend MD Lymphocytes/100 WBC (Bld) 7 % Low 24-44 [facility] Comment on above: Performed By: #### C RP, CDP, SED #### [address] [address] Blood Bank Booking Clerk: Chriss Townsend MD Monocytes (Bld) [#/Vol] 0.19 10*3/uL Normal 0.1-0.8 [facility] Comment on above: Performed By: #### C RP, CDP, SED #### [address] [address] Blood Bank Booking Clerk: Chriss Townsend MD Monocytes/100 WBC (Bld) 2 % Normal 1-7 [facility] Comment on above: Performed By: #### C RP, CDP, SED #### [address] [address] Blood Bank Booking Clerk: Chriss Townsend MD Morphology Demetrio (Bld) [Interp] Normal Normal [facility] Comment on above: Performed By: #### C RP, CDP, SED #### [address] [address] Blood Bank Booking Clerk: Chriss Townsend MD Neutrophil (Seg) 91 % High 36-66 [facility] Comment on above: Performed By: #### C RP, CDP, SED #### [address] [address] Blood Bank Booking Clerk: Chriss Townsend MD Erythrocyte distribution width (RBC) [Ratio] 14.4 % Normal 11.8-14.4 [facility] Comment on above: Performed By: #### C RP, CDP, SED #### [facility] [address] [place] [address]68 Blood Bank Booking Clerk: Chriss Townsend MD Hematocrit (Bld) [Volume fraction] 31.1 % Low 36.3-47.1 [facility] Comment on above: Performed By: #### C RP, CDP, SED #### [address] [address] Blood Bank Booking Clerk: Chriss Townsend MD Hemoglobin (Bld) [Mass/Vol] 9.9 g/dL Low 11.9-15.1 [facility] Comment on above: Performed By: #### C RP, CDP, SED #### [address] [address] Blood Bank Booking Clerk: Chriss Townsend MD MCH (RBC) [Entitic mass] 29.6 pg Normal 25.2-33.5 [facility] Comment on above: Performed By: #### C RP, CDP, SED #### [address] [address] Blood Bank Booking Clerk: Chriss Townsend MD MCHC (RBC) [Mass/Vol] 31.8 g/dL Normal 28.4-34.8 [facility] Comment on above: Performed By: #### C RP, CDP, SED #### [address] [address] Blood Bank Booking Clerk: Chriss Townsend MD MCV (RBC) [Entitic vol] 92.8 fL Normal 82.6-102.9 [facility] Comment on above: Performed By: #### C RP, CDP, SED #### [address] [address] Blood Bank Booking Clerk: Chriss Townsend MD NRBC Automated 0.0 per 100 WBC Normal 0.0 [facility] Comment on above: Performed By: #### C RP, CDP, SED #### [address] [address] Blood Bank Booking Clerk: Chriss Townsend MD Platelet mean volume (Bld) [Entitic vol] 9.8 fL Normal 8.1-13.5 [facility] Comment on above: Performed By: #### C RP, CDP, SED #### [address] [address] Blood Bank Booking Clerk: Chriss Townsend MD Platelets (Bld) [#/Vol] 164 10*3/uL Normal 138-453 [facility] Comment on above: Performed By: #### C RP CDP, SED #### [facility] [place] [address] Blood Bank Booking Clerk: Chriss Townsend MD RBC (Bld) [#/Vol] 3.35 10*6/uL Low 3.95-5.11 [facility] Comment on above: Performed By: #### C RP, CDP, SED #### [facility] [place] [address] Blood Bank Booking Clerk: Chriss Townsend MD WBC (Bld) [#/Vol] 9.4 10*3/uL Normal 3.5-11.3 [facility] Comment on above: Performed By: #### C RP CDP, SED #### [facility] [address] [place] [address] Blood Bank Booking Clerk: Chriss Townsend MD Magnesiumon 08-18-2021 Magnesium [Mass/Vol] 2.0 mg/dL Normal 1.6-2.6 [facility] Comment on above: Performed By: #### C RP, CDP, SED #### [facility] [place] [address] Blood Bank Booking Clerk: Chriss Townsend MD Magnesium [Mass/Vol] 2.0 mg/dL 1.6 - 2 .6 mg/dL [facility] No Panel Informationon 08-18 Interpretation and review of laboratory results Abnormal [facility] Basic Metab w/rfx MGon 08-17 (cont.) Normal [facility] Comment on above: Result Comment: Aver age GFR for 60-69 years old: 85 mL/min/1.73sq m Chronic Kidney Disease: <60 mL/min/1.73sq m Kidney failure: <15 mL/min/1.73sq m eGFR calculated using average adult body mass. Additional eGFR calculator available at: http://www.Ping Communication.Opicos/multiple_crcl_2012.htm Performed By: #### C RP, CDP, SED #### [facility] [employer] [address] [place] [address] Blood Bank Booking Clerk: Chriss Townsend MD Anion gap [Moles/Vol] 13 mmol/L Normal 9-17 [facility] Comment on above: Performed By: #### C RP, CDP, SED #### [facility] [employer] [address] [place] [address] Blood Bank Booking Clerk: Chriss Townsend MD Calcium [Mass/Vol] 9.2 mg/dL Normal 8.6-10.4 [facility] Comment on above: Performed By: #### C RP, CDP, SED #### [facility] [employer] [address] [place] [address] Blood Bank Booking Clerk: Chriss Townsend MD Chloride [Moles/Vol] 114 mmol/L High 98-107 [facility] Comment on above: Performed By: #### C RP, CDP, SED #### [facility] [employer] [address] [place] [address] Blood Bank Booking Clerk: Chriss Townsend MD CO2 [Moles/Vol] 15 mmol/L Low 20-31 [facility] Comment on above: Performed By: #### C RP, CDP, SED #### [facility] [employer] [address] [place] [address] Blood Bank Booking Clerk: Chriss Townsend MD Creatinine [Mass/Vol] 0.31 mg/dL Low 0.50-0.90 [facility] Comment on above: Performed By: #### C RP, CDP, SED #### [facility] [employer] [address] [place] [address] Blood Bank Booking Clerk: Chriss Townsend MD GFR, Amer >60 Normal >60 [facility] Comment on above: Performed By: #### C RP, CDP, SED #### [facility] [address] [place] [address] Blood Bank Booking Clerk: Chriss Townsend MD GFR,non Amer >60 Normal >60 [facility] Comment on above: Performed By: #### C RP, CDP, SED #### [facility] [address] [place] [address] Blood Bank Booking Clerk: Chriss Townsend MD Glucose [Mass/Vol] 89 mg/dL Normal 70-99 [facility] Comment on above: Performed By: #### C RP, CDP, SED #### [facility] [address] [place] [address] Blood Bank Booking Clerk: Chriss Townsend MD Potassium [Moles/Vol] 3.9 mmol/L Normal 3.7-5.3 [facility] Comment on above: Performed By: #### C RP, CDP, SED #### [facility] [employer] [address] [place] [address] Blood Bank Booking Clerk: Chriss Townsend MD Sodium [Moles/Vol] 142 mmol/L Normal 135-144 [facility] Comment on above: Performed By: #### C RP, CDP, SED #### [facility] [employer] [address] [place] [address] Blood Bank Booking Clerk: Chriss Townsend MD Urea nitrogen [Mass/Vol] 13 mg/dL Normal 8-23 [facility] Comment on above: Performed By: #### C RP, CDP, SED #### [facility] [employer] [address] [place] [address] Blood Bank Booking Clerk: Chriss Townsend MD Basic Metabolic Panel w/ Ref sujatha to MGon 08-17-2021 Anion gap [Moles/Vol] 13 mmol/L 9 - 17 mmol/L [facility] Calcium [Mass/Vol] 9.2 mg/dL 8.6 - 10. 4 mg/dL [facility] Chloride [Moles/Vol] 114 mmol/L High 98 - 10 7 mmol/L [facility] CO2 [Moles/Vol] 15 mmol/L Low 20 - 31 mmol/L [facility] Creatinine [Mass/Vol] 0.31 mg/dL Low 0.50 - 0.90 mg/dL [facility] GFR >60 >60 mL/min [facility] GFR Non- >60 >60 mL/min [facility] GFR/1.73 sq M.predicted MDRD (S/P/Bld) [Vol rate/Area] [facility] Comment on above: Average GFR for 60-6 9 years old: 85 mL/min/1.73sq m Chronic Kidney Disease: <60 mL/min/1.73sq m Kidney failure: <15 mL/min/1.73sq m eGFR calculated using average adult body mass. Additional eGFR calculator available at: http://www.Justworks/multiple_crcl_2012.htm Glucose [Mass/Vol] 89 mg/dL 70 - 99 mg/dL [facility] Interpretation and review of laboratory results Abnormal [facility] Potassium [Moles/Vol] 3.9 mmol/L 3.7 - 5.3 mmol/L [facility] Sodium [Moles/Vol] 142 mmol/L 135 - 144 mmol/L [facility] Urea nitrogen (BldV) [Mass/Vol] 13 mg/dL 8 - 23 mg/dL [facility] Body Fluid Counton 2 RBC 90605 /mm3 Normal [facility] Comment on above: Result Comment: The reference range and other method performance specifications have not been established for this body fluid. The test result must be integrated into the clinical context for interpretation. Performed By: #### F LCRYS, BFCNT #### [facility] [place] [address] Blood Bank Booking Clerk: Chriss Townsend MD WBC 57641 /mm3 Normal [facility] Comment on above: Result Comment: The reference range and other method performance specifications have not been established for this body fluid. The test result must be integrated into the clinical context for interpretation. Performed By: #### F LCRYS, BFCNT #### [facility] [address] [phone] Blood Bank Booking Clerk: Chriss Townsend MD CBC with Auto Differentialon 08-17-2021 Absolute Eos # 0.00 [facility] Absolute Immature Granulocyte 0.00 [facility] Absolute Lymph # 0.41 Low [facility] Absolute [place] # 0.24 [facility] Basophils (Bld) [#/Vol] 0.00 10*3/uL [facility] Basophils/100 WBC (Bld) 0 % 0 - 2 % [facility] Eosinophils/100 WBC (Bld) 0 % Low 1 - 4 % [facility] Hematocrit (Bld) [Volume fraction] 35.4 % Low 36.3 - 47.1 % [facility] Hemoglobin.gastrointe stinal spec 1 Ql (Stl) 10.8 g/dL Low 11.9 - 15.1 g/dL [facility] Immature granulocytes/100 WBC (Bld) 0 % 0 [facility] Interpretation and review of laboratory results Abnormal [facility] Lymphocytes/100 WBC (Bld) 5 % Low 24 - 44 % [facility] MCH (RBC) [Entitic mass] 29.8 pg 25.2 - 33.5 pg [facility] MCHC (RBC) [Mass/Vol] 30.5 g/dL 28.4 - 34.8 g/dL [facility] MCV (RBC) [Entitic vol] 97.8 fL 82.6 - 102.9 fL [facility] Monocytes/100 WBC (Bld) 3 % 1 - 7 % [facility] Morphology Demetrio (Bld) [Interp] ANISOCYTOSIS PRESENT [facility] NRBC Automated 0.0 0.0 per 100 WBC [facility] Platelet distribution width (Bld) [Ratio] 14.6 % High 11.8 - 14.4 % [facility] Platelet mean volume (Bld) [Entitic vol] 9.9 fL 8.1 - 13.5 fL [facility] Platelets (Bld) [#/Vol] 123 10*3/uL Low [facility] RBC (Bld) [#/Vol] 3.62 10*6/uL Low 3.95 - 5.1 1 m/uL [facility] Segmented neutrophils/100 WBC (Bld) 92 % High 36 - 66 % [facility] Segs Absolute 7.45 [facility] WBC (Bld) [#/Vol] 8.1 10*3/uL [facility] CBC with Diffon 08-17-2021 Abs. Basophil 0.00 k/uL Normal 0.0-0.2 [facility] Comment on above: Performed By: #### C RP, CDP, SED #### [facility] [employer] [address] [place] [address] Blood Bank Booking Clerk: Chriss Townsend MD Abs.Imm.Granulocyte 0.00 k/uL Normal 0.00-0.30 [facility] Comment on above: Performed By: #### C RP, CDP, SED #### [facility] [employer] [address] [place] [address] Blood Bank Booking Clerk: Chriss Townsend MD Abs.Neutrophil (Seg) 7.45 k/uL Normal 1.8-7.7 [facility] Comment on above: Performed By: #### C RP, CDP, SED #### [facility] [address] [place] [address] Blood Bank Booking Clerk: Chriss Townsend MD Basophils/100 WBC (Bld) 0 % Normal 0-2 [facility] Comment on above: Performed By: #### C RP, CDP, SED #### [facility] [address] [place] [address] Blood Bank Booking Clerk: Chrsis Townsend MD Eosinophils (Bld) [#/Vol] 0.00 10*3/uL Normal 0.0-0.4 [facility] Comment on above: Performed By: #### C RP, CDP, SED #### [facility] [address] [place] [address] Blood Bank Booking Clerk: Chriss Townsend MD Eosinophils/100 WBC (Bld) 0 % Low 1-4 [facility] Comment on above: Performed By: #### C RP, CDP, SED #### [address] [address] Blood Bank Booking Clerk: Chrsis Townsend MD Immature granulocytes/100 WBC (Bld) 0 % Normal 0 [facility] Comment on above: Performed By: #### C RP, CDP, SED #### [address] [address] Blood Bank Booking Clerk: Chriss Townsend MD Lymphocytes (Bld) [#/Vol] 0.41 10*3/uL Low 1.0-4.8 [facility] Comment on above: Performed By: #### C RP, CDP, SED #### [address] [address] Blood Bank Booking Clerk: Chriss Townsend MD Lymphocytes/100 WBC (Bld) 5 % Low 24-44 [facility] Comment on above: Performed By: #### C RP, CDP, SED #### [address] [address] Blood Bank Booking Clerk: Chriss Townsend MD Monocytes (Bld) [#/Vol] 0.24 10*3/uL Normal 0.1-0.8 [facility] Comment on above: Performed By: #### C RP, CDP, SED #### [address] [address] Blood Bank Booking Clerk: Chriss Townsend MD Monocytes/100 WBC (Bld) 3 % Normal 1-7 [facility] Comment on above: Performed By: #### C RP, CDP, SED #### [address] [address] Blood Bank Booking Clerk: Chriss Townsend MD Morphology Demetrio (Bld) [Interp] ANISOCYTOSIS PRESENT Normal [facility] Comment on above: Performed By: #### C RP, CDP, SED #### [address] [address] Blood Bank Booking Clerk: Chriss Townsend MD Neutrophil (Seg) 92 % High 36-66 [facility] Comment on above: Performed By: #### C RP, CDP, SED #### [address] [address] Blood Bank Booking Clerk: Chriss Townsend MD Erythrocyte distribution width (RBC) [Ratio] 14.6 % High 11.8-14.4 [facility] Comment on above: Performed By: #### C RP, CDP, SED #### [address] [address] Blood Bank Booking Clerk: Chriss Townsend MD Hematocrit (Bld) [Volume fraction] 35.4 % Low 36.3-47.1 [facility] Comment on above: Performed By: #### C RP, CDP, SED #### [address] [address] Blood Bank Booking Clerk: Chriss Townsend MD Hemoglobin (Bld) [Mass/Vol] 10.8 g/dL Low 11.9-15.1 [facility] Comment on above: Performed By: #### C RP, CDP, SED #### [address] [address] Blood Bank Booking Clerk: Chriss Townsend MD MCH (RBC) [Entitic mass] 29.8 pg Normal 25.2-33.5 [facility] Comment on above: Performed By: #### C RP, CDP, SED #### [facility] [employer] [address] [place] [address] Blood Bank Booking Clerk: Chriss Townsend MD MCHC (RBC) [Mass/Vol] 30.5 g/dL Normal 28.4-34.8 [facility] Comment on above: Performed By: #### C RP, CDP, SED #### [address] [address] Blood Bank Booking Clerk: Chriss Townsend MD MCV (RBC) [Entitic vol] 97.8 fL Normal 82.6-102.9 [facility] Comment on above: Performed By: #### C RP, CDP, SED #### [address] [address] Blood Bank Booking Clerk: Chriss Townsend MD NRBC Automated 0.0 per 100 WBC Normal 0.0 [facility] Comment on above: Performed By: #### C RP, CDP, SED #### [address] [address] Blood Bank Booking Clerk: Chriss Townsend MD Platelet mean volume (Bld) [Entitic vol] 9.9 fL Normal 8.1-13.5 [facility] Comment on above: Performed By: #### C RP, CDP, SED #### [address] [address] Blood Bank Booking Clerk: Chriss Townsend MD Platelets (Bld) [#/Vol] 123 10*3/uL Low 138-453 [facility] Comment on above: Performed By: #### C RP, CDP, SED #### [address] [address] Blood Bank Booking Clerk: Chriss Townsend MD RBC (Bld) [#/Vol] 3.62 10*6/uL Low 3.95-5.11 [facility] Comment on above: Performed By: #### C RP, CDP, SED #### [address] [address] Blood Bank Booking Clerk: Chriss Townsend MD WBC (Bld) [#/Vol] 8.1 10*3/uL Normal 3.5-11.3 [facility] Comment on above: Performed By: #### C RP, CDP, SED #### [facility] [address] [phone] Blood Bank Booking Clerk: Chriss Townsend MD CT ASP ABS HEMATOMA BULLA CY STon 08-17-2021 CT-guided pubic symp hysis region aspiration performed successfully. [facility] Jonathan Villavicencio MD - 08/17/2021 PROCEDURE: [...] the procedure including risks, benefits, and alternatives. [place] protocol was observed. Sterile gowns, masks, hats [...] CT-guided pubic symphysis region aspiration performed successfully. [facility] Phone: Radiology Study observation (narrative) [facility] Phone: CT ASP ABS HEMATOMA BULLA CY STOrdered By: Jonathan Osorio on 08-17-2021 [facility] Phone: Cult,Aerobe/Anaerobeon 08-17 Cult,Aerobe/Anaerobe Specimen Descriptio [...] Tetracycline <=1 SUSCEPTIBLE Trimethoprim/Sulfa <=10 SUSCEPTIBLE Susceptible [facility] Comment on above: Performed By: #### A ANC #### [facility] [address] [place] [address] [phone] Blood Bank Booking Clerk: Chriss Townsend MD Cult,Urineon 08-17-2021 Cult,Urine Specimen Description .URINE,STRAIGHT CATHETER Culture NO GROWTH Report Status FINAL 08/17/2021 Normal [facility] Comment on above: Performed By: #### L ACTIC #### [facility] [address] [place] [address] [phone] Blood Bank Booking Clerk: Chriss Townsend MD Culture, Anaerobic and Aerob icon 08-17-2021 Bacteria identified Cx Nom (Unsp spec) STAPHYLOCOCCUS AUREUS LIGHT GROWTH This isolate is methicillin susceptible. Abnormal [facility] Bacteria identified Cx Nom (Unsp spec) No anaerobic organisms isolated at 5 days. [facility]TSBooking Angel Flipaste Direct Exam MODERATE NEUTROPHILS Abnormal [facility]ET[facility]SScan [facility] Target [facility] Flipaste Direct Exam Positive Abnormal [facility] [employer] Interpretation and review of laboratory results Abnormal [facility] Specimen Description .ASPIRATE .SYNOVIAL FLUID [facility]TSScan & Target [facility] [employer] Culture, Urineon 08-17-2021 Bacteria identified Cx Nom (U) NO GROWTH [facility]TSS[facility] Target [facility] Flipaste Specimen Description .URINE,STRAIGHT CATHETER [facility]ETTSOURS [facility]ETTSScan & Target [facility] XR ANKLE RIGHT (MIN 3 VIEWS) on [...] of the ORIF hardware. Interpreted by: Collette Contrears MD Signed by: Collette Contreras MD 08/16/21 Final result Normal [facility] Basic Metab w/rfx MGon 08-16 (cont.) Normal [facility] Comment on above: Result Comment: Aver age GFR for 60-69 years old: 85 mL/min/1.73sq m Chronic Kidney Disease: <60 mL/min/1.73sq m Kidney failure: <15 mL/min/1.73sq m eGFR calculated using average adult body mass. Additional eGFR calculator available at: http://www.Ping Communication.Opicos/multiple_crcl_2012.htm Performed By: #### C OVRB #### [facility] [employer] [address] [place] [address] [phone] Blood Bank Booking Clerk: Chriss Townsend MD Anion gap [Moles/Vol] 10 mmol/L Normal 9-17 [facility] Comment on above: Performed By: #### C OVRB #### [facility] [employer] [address] [place] [address] [phone] Blood Bank Booking Clerk: Chriss Townsend MD Calcium [Mass/Vol] 9.2 mg/dL Normal 8.6-10.4 [facility] Comment on above: Performed By: #### C OVRB #### [facility] [employer] [address] [place] [address] [phone] Blood Bank Booking Clerk: Chriss Townsend MD Chloride [Moles/Vol] 112 mmol/L High 98-107 [facility] Comment on above: Performed By: #### C OVRB #### [address] [address] Blood Bank Booking Clerk: Chriss Townsend MD CO2 [Moles/Vol] 22 mmol/L Normal 20-31 [facility] Comment on above: Performed By: #### C OVRB #### [address] [address] Blood Bank Booking Clerk: Chriss Townsend MD Creatinine [Mass/Vol] 0.42 mg/dL Low 0.50-0.90 [facility] Comment on above: Performed By: #### C OVRB #### [address] [address] Blood Bank Booking Clerk: Chriss Townsend MD GFR, Amer >60 Normal >60 [facility] Comment on above: Performed By: #### C OVRB #### [address] [address] Blood Bank Booking Clerk: Chriss Townsend MD GFR,non Amer >60 Normal >60 [facility] Comment on above: Performed By: #### C OVRB #### [address] [address] Blood Bank Booking Clerk: Chriss Townsend MD Glucose [Mass/Vol] 76 mg/dL Normal 70-99 [facility] Comment on above: Performed By: #### C OVRB #### [address] [address] Blood Bank Booking Clerk: Chriss Townsend MD Sodium [Moles/Vol] 144 mmol/L Normal 135-144 [facility] Comment on above: Performed By: #### C OVRB #### [address] [phone] Blood Bank Booking Clerk: Chriss Townsend MD Urea nitrogen [Mass/Vol] 12 mg/dL Normal 8-23 [facility] Comment on above: Performed By: #### C OVRB #### [facility] [address] [place], [place] [phone] Blood Bank Booking Clerk: Chriss Townsend MD Potassium [Moles/Vol] 3.3 mmol/L Low 3.7-5.3 [facility] Comment on above: Performed By: #### C OVRB #### [facility] [address] [place] [address] Blood Bank Booking Clerk: Chriss Townsend MD Basic Metabolic Panel w/ Ref sujatha to [facility] 08-16-2021 Anion gap [Moles/Vol] 10 mmol/L 9 - 17 mmol/L [facility] Calcium [Mass/Vol] 9.2 mg/dL 8.6 - 10. 4 mg/dL [facility] Chloride [Moles/Vol] 112 mmol/L High 98 - 10 7 mmol/L [facility] CO2 [Moles/Vol] 22 mmol/L 20 - 31 mmol/L [facility] Creatinine [Mass/Vol] 0.42 mg/dL Low 0.50 - 0.90 mg/dL [facility] GFR >60 >60 mL/min [facility] GFR Non- >60 >60 mL/min [facility] GFR/1.73 sq M.predicted MDRD (S/P/Bld) [Vol rate/Area] [facility] Comment on above: Average GFR for 60-6 9 years old: 85 mL/min/1.73sq m Chronic Kidney Disease: <60 mL/min/1.73sq m Kidney failure: <15 mL/min/1.73sq m eGFR calculated using average adult body mass. Additional eGFR calculator available at: http://www.Ping Communication.Opicos/multiple_crcl_2012.htm Glucose [Mass/Vol] 76 mg/dL 70 - 99 mg/dL [facility] Interpretation and review of laboratory results Abnormal [facility] Sodium [Moles/Vol] 144 mmol/L 135 - 144 mmol/L [facility] Urea nitrogen (BldV) [Mass/Vol] 12 mg/dL 8 - 23 mg/dL [facility] Body Fluid Counton Type of Specimen .SHOULDER Normal [facility] Comment on above: Result Comment: RIGH T JOINT FLUID Performed By: #### F LCRYS, BFCNT #### [facility] [address] [place], [place] [phone] Blood Bank Booking Clerk: Chriss Townsend MD Body fluid cell counton 07-22 RBC, Fluid 91008 /mm3 [facility] Comment on above: The reference range and other method performance specifications have not been established for this body fluid. The test result must be integrated into the clinical context for interpretation. Specimen type Nom (Spec) .SHOULDER [facility] Comment on above: RIGHT JOINT FLUID WBC, Fluid 33073 /mm3 [facility] Comment on above: The reference range and other method performance specifications have not been established for this body fluid. The test result must be integrated into the clinical context for interpretation. [facility] C-Reactive Proteinon 022 CRP [Mass/Vol] 457.9 mg/L High 0.0-5.0 [facility] Comment on above: Performed By: #### L ACTIC #### [facility] [address] [place], [place] [phone] Blood Bank Booking Clerk: Chriss Townsend MD CRP [Mass/Vol] 457.9 mg/L High 0.0 - 5.0 mg/L [facility] Interpretation and review of laboratory results Abnormal [facility] CBC with Auto Differentialon 08-16-2021 Absolute Eos # 0.[address] [facility] Absolute Immature Granulocyte 0.00 [facility] Absolute Lymph # 0.50 Low [facility] Absolute [place] # 0.20 [facility] RS [facility] Basophils (Bld) [#/Vol] 0.00 10*3/uL [facility] Basophils/100 WBC (Bld) 0 % 0 - 2 % [facility] Eosinophils/100 WBC (Bld) 0 % Low 1 - 4 % [facility] Hematocrit (Bld) [Volume fraction] 32.3 % Low 36.3 - 47.1 % [facility] Hemoglobin.gastrointe stinal spec 1 Ql (Stl) 9.9 g/dL Low 11.9 - 15.1 g/dL [facility] Immature granulocytes/100 WBC (Bld) 0 % 0 [facility] Interpretation and review of laboratory results Abnormal [facility] Lymphocytes/100 WBC (Bld) 5 % Low 24 - 44 % [facility] MCH (RBC) [Entitic mass] 30.0 pg 25.2 - 33.5 pg [facility] MCHC (RBC) [Mass/Vol] 30.7 g/dL 28.4 - 34.8 g/dL [facility] MCV (RBC) [Entitic vol] 97.9 fL 82.6 - 102.9 fL [facility] Monocytes/100 WBC (Bld) 2 % 1 - 7 % [facility] Morphology Demetrio (Bld) [Interp] ANISOCYTOSIS PRESENT [facility] Morphology Demetrio (Bld) [Interp] DOHLE BODIES PRESENT [facility] NRBC Automated 0.0 0.0 per 100 WBC [facility] Platelet distribution width (Bld) [Ratio] 15.1 % High 11.8 - 14.4 % [facility] Platelet mean volume (Bld) [Entitic vol] 9.8 fL 8.1 - 13.5 fL [facility] Platelets (Bld) [#/Vol] 130 10*3/uL Low [facility] RBC (Bld) [#/Vol] 3.30 10*6/uL Low 3.95 - 5.1 1 m/uL [facility] Segmented neutrophils/100 WBC (Bld) 93 % High 36 - 66 % [facility] Segs Absolute 9.20 High [facility] WBC (Bld) [#/Vol] 9.9 10*3/uL [facility] CBC with Diffon 08-16-2021 Abs. Basophil 0.00 k/uL Normal 0.0-0.2 [facility] Comment on above: Performed By: #### L ACTIC #### [address] [address] Blood Bank Booking Clerk: Chriss Townsend MD Abs.Imm.Granulocyte 0.00 k/uL Normal 0.00-0.30 [facility] Comment on above: Performed By: #### L ACTIC #### [address] [address] Blood Bank Booking Clerk: Chriss Townsend MD Abs.Neutrophil (Seg) 9.20 k/uL High 1.8-7.7 [facility] Comment on above: Performed By: #### L ACTIC #### [address] [address] Blood Bank Booking Clerk: Chriss Townsend MD Basophils/100 WBC (Bld) 0 % Normal 0-2 [facility] Comment on above: Performed By: #### L ACTIC #### [address] [address] Blood Bank Booking Clerk: Chriss Townsend MD Eosinophils (Bld) [#/Vol] 0.00 10*3/uL Normal 0.0-0.4 [facility] Comment on above: Performed By: #### L ACTIC #### [address] [address] Blood Bank Booking Clerk: Chriss Townsend MD Eosinophils/100 WBC (Bld) 0 % Low 1-4 [facility] Comment on above: Performed By: #### L ACTIC #### [address] [address] Blood Bank Booking Clerk: Chriss Townsend MD Immature granulocytes/100 WBC (Bld) 0 % Normal 0 [facility] Comment on above: Performed By: #### L ACTIC #### [address] [address] Blood Bank Booking Clerk: Chriss Townsend MD Lymphocytes (Bld) [#/Vol] 0.50 10*3/uL Low 1.0-4.8 [facility] Comment on above: Performed By: #### L ACTIC #### [address] [address] Blood Bank Booking Clerk: Chriss Townsend MD Lymphocytes/100 WBC (Bld) 5 % Low 24-44 [facility] Comment on above: Performed By: #### L ACTIC #### [address] [address] Blood Bank Booking Clerk: Chriss Townsend MD Monocytes (Bld) [#/Vol] 0.20 10*3/uL Normal 0.1-0.8 [facility] Comment on above: Performed By: #### L ACTIC #### [address] [address] Blood Bank Booking Clerk: Chriss Townsend MD Monocytes/100 WBC (Bld) 2 % Normal 1-7 [facility] Comment on above: Performed By: #### L ACTIC #### [address] [address] Blood Bank Booking Clerk: Chriss Townsend MD Morphology Demetrio (Bld) [Interp] ANISOCYTOSIS PRESENT Normal [facility] Comment on above: Result Comment: DOHL E BODIES PRESENT Performed By: #### L ACTIC #### [address] [address] Blood Bank Booking Clerk: Chriss Townsend MD Neutrophil (Seg) 93 % High 36-66 [facility] Comment on above: Performed By: #### L ACTIC #### [address] [address] Blood Bank Booking Clerk: Chriss Townsend MD Erythrocyte distribution width (RBC) [Ratio] 15.1 % High 11.8-14.4 [facility] Comment on above: Performed By: #### L ACTIC #### [address] [address] Blood Bank Booking Clerk: Chriss Townsend MD Hematocrit (Bld) [Volume fraction] 32.3 % Low 36.3-47.1 [facility] Comment on above: Performed By: #### L ACTIC #### [address] [address] Blood Bank Booking Clerk: Chriss Townsend MD Hemoglobin (Bld) [Mass/Vol] 9.9 g/dL Low 11.9-15.1 [facility] Comment on above: Performed By: #### L ACTIC #### [address] [address] Blood Bank Booking Clerk: Chriss Townsend MD MCH (RBC) [Entitic mass] 30.0 pg Normal 25.2-33.5 [facility] Comment on above: Performed By: #### L ACTIC #### [address] [address] Blood Bank Booking Clerk: Chriss Townsend MD MCHC (RBC) [Mass/Vol] 30.7 g/dL Normal 28.4-34.8 [facility] Comment on above: Performed By: #### L ACTIC #### [address] [address] Blood Bank Booking Clerk: Chriss Townsend MD MCV (RBC) [Entitic vol] 97.9 fL Normal 82.6-102.9 [facility] Comment on above: Performed By: #### L ACTIC #### [address] [address] Blood Bank Booking Clerk: Chriss Townsend MD NRBC Automated 0.0 per 100 WBC Normal 0.0 [facility] Comment on above: Performed By: #### L ACTIC #### [address] [id number] [place] [address] Blood Bank Booking Clerk: Chriss Townsend MD Platelet mean volume (Bld) [Entitic vol] 9.8 fL Normal 8.1-13.5 [facility] Comment on above: Performed By: #### L ACTIC #### [facility] [employer] [address] [place] [address] Blood Bank Booking Clerk: Chriss Townsend MD Platelets (Bld) [#/Vol] 130 10*3/uL Low 138-453 [facility] Comment on above: Performed By: #### L ACTIC #### [address] [address] Blood Bank Booking Clerk: Chriss Townsend MD RBC (Bld) [#/Vol] 3.30 10*6/uL Low 3.95-5.11 [facility] Comment on above: Performed By: #### L ACTIC #### [address] [address] Blood Bank Booking Clerk: Chriss Townsend MD WBC (Bld) [#/Vol] 9.9 10*3/uL Normal 3.5-11.3 [facility] Comment on above: Performed By: #### L ACTIC #### [address] [address] Blood Bank Booking Clerk: Chriss Townsend MD Cell Count with Differential , Body Fluidon 08-16-2021 Lymphocytes, Body Fluid 2 % [employer] Comment on above: The reference range and other method performance specifications have not been established for this body fluid. The test result must be integrated into the clinical context for interpretation. Neutrophil Count, Fluid 93 % [facility] [employer] Comment on above: The reference range and other method performance specifications have not been established for this body fluid. The test result must be integrated into the clinical context for interpretation. Other Cells, Fluid MONOCYTES % [facility] [employer] Comment on above: The reference range and other method performance specifications have not been established for this body fluid. The test result must be integrated into the clinical context for interpretation. RBC, Fluid 03990 /mm3 [facility] Comment on above: The reference range and other method performance specifications have not been established for this body fluid. The test result must be integrated into the clinical context for interpretation. Specimen type Nom (Spec) .SYNOVIAL FLUID [facility] Comment on above: RIGHT SHOULDER WBC, Fluid 03081 /mm3 [facility] Comment on above: The reference range and other method performance specifications have not been established for this body fluid. The test result must be integrated into the clinical context for interpretation. [facility] Crystals, Body Fluidon 08-16 Crystals, Fluid Negative NEGATIVE [facility] Comment on above: NO CRYSTALS SEEN Specimen type Nom (Spec) .SYNOVIAL FLUID [facility] Comment on above: RIGHT SHOULDER [facility] Crystals, Fluidson 2 Crystals,Fluid Negative Normal NEG [facility] Comment on above: Result Comment: NO C RYSTALS SEEN Performed By: #### L ACTIC #### [facility] [employer] [facility] [place] [address] Blood Bank Booking Clerk: Chriss Townsend MD ECHO Complete 2D W Doppler W Coloron 08-16-2021 Transthoracic Echocardiography Report (TTE) Patient Name HEMCHAK Date of Study 08/16/2021 MIRIAM A Date of 1955 Gender Female Age 66 year(s) Race Room Number 3022 Height: 64 inch, 162.56 cm Corporate ID [id number] Weight: 220 pounds, 99.8 kg # Patient Acct [id number] BSA: 2.04 m^2 BMI: 37.76 kg/m^2 # MR # [id number] Lawn Care Technician Evie Jordan Interpreting Physician Esteban Liu Fellow Referring Nurse Practitioner Interpreting Referring Physician Rory Perrin DO Fellow Type of Study TTE procedure:2D Echocardiogram, M-Mode, Doppler, Color Doppler. Procedure Date Date: 08/16/2021 Start: 02:51 PM Study Location: [facility] Technical Quality: Adequate visualization Indications:Rule [...] Height: 64 inch, 162.56 cm Corporate ID [id number] Weight: 220 pounds, 99.8 kg # Patient Acct [id number] BSA: 2.04 m^2 BMI: 37.76 kg/m^2 # MR # [id number] Lawn Care Technician Evie Jordan Interpreting Physician Esteban Liu Fellow Referring Nurse Practitioner Interpreting Referring Physician Rory Perrin DO Fellow Type of Study TTE procedure:2D Echocardiogram, M-Mode, Doppler, Color Doppler. Procedure Date Date: 08/16/2021 Start: 02:51 PM Study Location: [facility] Technical Quality: Adequate visualization Indications:Rule [...] Wall E' velocity:0.06 m/s Lateral Wall E/E':19.6 [employer] [facility] [employer] Work Phone: ECHO Complete 2D W Doppler W ColorOrdered By: Esteban Liu on 08-16-2021 [employer] [facility] Phone: Fluid Cell Count and Diffon 08-16-2021 Other Cells MONOCYTES Normal [facility] Comment on above: Result Comment: The reference range and other method performance specifications have not been established for this body fluid. The test result must be integrated into the clinical context for interpretation. Performed By: #### V NCT #### [facility] [address] [place] [address] Blood Bank Booking Clerk: Chriss Townsend MD Magnesiumon 08-16-2021 Magnesium [Mass/Vol] 2.0 mg/dL Normal 1.6-2.6 [facility] Comment on above: Performed By: #### L ACTIC #### [facility] [address] [place] [address] Blood Bank Booking Clerk: Chriss Townsend MD Magnesium [Mass/Vol] 2.0 mg/dL 1.6 - 2 .6 mg/dL [facility] OPERATIVE REPORTon OPERATIVE REPORT [facility] [address] [place] [address] OPERATIVE REPORT PATIENT NAME: MIRIAM GERMAN : 1955 MED REC NO: [id number] ROOM: [facility] ACCOUNT NO: [id number] ADMIT DATE: 08/14/2021 PROVIDER: Baltazar Anthony DO [...] is a 66-year-old female who presented to [place] several days ago with severe right shoulder [...] culture results. BALTAZAR ANTHONY DO [id number] Doc#: [id number] CC: Normal [facility] Vancomycin Level, Troughon 0 08-16-2021 Interpretation and review of laboratory results Abnormal [facility] Vancomycin Tr 8.3 ug/mL Low 10.0 - 20.0 ug/mL [facility] Comment on above: Higher trough serum vancomycin concentrations of 15-20 ug/mL are recommended for complicated infections such as bacteremia, endocarditis, osteomyelitis, meningitis, and hospital acquired pneumonia. [facility] Vancomycin Troughon 08-17-19 Vancomycin Trough 8.3 ug/mL Low 10.0-20.0 [facility] Comment on above: Result Comment: High er trough serum vancomycin concentrations of 15-20 ug/mL are recommended for complicated infections such as bacteremia, endocarditis, osteomyelitis, meningitis, and hospital acquired pneumonia. Performed By: #### V NCT #### [facility] [employer] [facility] [place] [address] Blood Bank Booking Clerk: Chriss Townsend MD XR ANKLE RIGHT (MIN 3 VIEWS) on 08-16-2021 Degenerative changes seen at the ankle with postoperative change and interval removal of the ORIF hardware. [facility] RIS CONSOLIDATED EXAMINATION: THREE XRAY VIEWS [...] earlier. Calcaneal spurring at the plantar aponeurosis. [facility] Collette Rodriguez MD - 08/16/2021 EXAMINATION: [...] and interval removal of the ORIF hardware. [employer] Phone: Radiology Study observation (narrative) [employer] Phone: XR ANKLE RIGHT (MIN 3 VIEWS) Ordered By: Collette Contreras on 08-16-2021 [employer] Phone: Basic Metab w/rfx MGon 08-15 (cont.) Normal [facility] Comment on above: Result Comment: Aver age GFR for 60-69 years old: 85 mL/min/1.73sq m Chronic Kidney Disease: <60 mL/min/1.73sq m Kidney failure: <15 mL/min/1.73sq m eGFR calculated using average adult body mass. Additional eGFR calculator available at: http://www.Ping Communication.Opicos/multiple_crcl_2011.htm Performed By: #### C RP, CDP, SED #### [facility] [address] [place], [place] [phone] Blood Bank Booking Clerk: Chriss Townsend MD Anion gap [Moles/Vol] 12 mmol/L Normal 9-17 [facility] Comment on above: Performed By: #### C RP, CDP, SED #### [facility] [address] [place] [address] Blood Bank Booking Clerk: Chriss Townsend MD Calcium [Mass/Vol] 9.2 mg/dL Normal 8.6-10.4 [facility] Comment on above: Performed By: #### C RP, CDP, SED #### [facility] [employer] [address] [place] [address] Blood Bank Booking Clerk: Chriss Townsend MD Chloride [Moles/Vol] 109 mmol/L High 98-107 [facility] Comment on above: Performed By: #### C RP, CDP, SED #### [facility] [employer] [address] [place] [address] Blood Bank Booking Clerk: Chriss Townsend MD CO2 [Moles/Vol] 20 mmol/L Normal 20-31 [facility] Comment on above: Performed By: #### C RP, CDP, SED #### [address] [address] Blood Bank Booking Clerk: Chriss Townsend MD Creatinine [Mass/Vol] 0.60 mg/dL Normal 0.50-0.90 [facility] Comment on above: Performed By: #### C RP, CDP, SED #### [address] [address] Blood Bank Booking Clerk: Chriss Townsend MD GFR, Amer >60 Normal >60 [facility] Comment on above: Performed By: #### C RP, CDP, SED #### [facility] [employer] [address] [place] [address] Blood Bank Booking Clerk: Chriss Townsend MD GFR,non Amer >60 Normal >60 [facility] Comment on above: Performed By: #### C RP, CDP, SED #### [facility] [employer] [address] [place] [address] Blood Bank Booking Clerk: Chriss Townsend MD Glucose [Mass/Vol] 78 mg/dL Normal 70-99 [facility] Comment on above: Performed By: #### C RP, CDP, SED #### [facility] [address] [place] [address] Blood Bank Booking Clerk: Chriss Townsend MD Potassium [Moles/Vol] 4.1 mmol/L Normal 3.7-5.3 [facility] Comment on above: Performed By: #### C RP, CDP, SED #### [facility] [address] [place] [address] Blood Bank Booking Clerk: Chriss Townsend MD Sodium [Moles/Vol] 141 mmol/L Normal 135-144 [facility] Comment on above: Performed By: #### C RP, CDP, SED #### [facility] [place] [address] Blood Bank Booking Clerk: Chriss Townsend MD Urea nitrogen [Mass/Vol] 12 mg/dL Normal 8-23 [facility] Comment on above: Performed By: #### C RP, CDP, SED #### [facility] [address] [place] [address] Blood Bank Booking Clerk: Chriss Townsend MD Basic Metabolic Panel w/ Ref sujatha to MGon 08-15-2021 Anion gap [Moles/Vol] 12 mmol/L 9 - 17 mmol/L [facility] [employer] Calcium [Mass/Vol] 9.2 mg/dL 8.6 - 10. 4 mg/dL [facility] Chloride [Moles/Vol] 109 mmol/L High 98 - 10 7 mmol/L [facility] [employer] CO2 [Moles/Vol] 20 mmol/L 20 - 31 mmol/L [facility] Creatinine [Mass/Vol] 0.6 mg/dL 0.50 - 0.90 mg/dL [facility] GFR >60 >60 mL/min [facility]TS[facility] Angel [employer] GFR Non- >60 >60 mL/min [facility] [employer] GFR/1.73 sq M.predicted MDRD (S/P/Bld) [Vol rate/Area] [facility] Comment on above: Average GFR for 60-6 9 years old: 85 mL/min/1.73sq m Chronic Kidney Disease: <60 mL/min/1.73sq m Kidney failure: <15 mL/min/1.73sq m eGFR calculated using average adult body mass. Additional eGFR calculator available at: http://www.Justworks/multiple_crcl_2011.htm Glucose [Mass/Vol] 78 mg/dL 70 - 99 mg/dL [facility] Interpretation and review of laboratory results Abnormal [facility] Potassium [Moles/Vol] 4.1 mmol/L 3.7 - 5.3 mmol/L [facility] Sodium [Moles/Vol] 141 mmol/L 135 - 144 mmol/L [facility] Urea nitrogen (BldV) [Mass/Vol] 12 mg/dL 8 - 23 mg/dL [facility] CBC with Auto Differentialon 08-15-2021 Absolute Eos # 0.00 [address] [facility] Absolute Immature Granulocyte 0.00 [facility] Absolute Lymph # 0.85 Low [facility] Absolute [place] # 0.17 [facility] Basophils (Bld) [#/Vol] 0.00 10*3/uL [facility] Basophils/100 WBC (Bld) 0 % 0 - 2 % [facility] Eosinophils/100 WBC (Bld) 0 % Low 1 - 4 % [facility] Hematocrit (Bld) [Volume fraction] 37.5 % 36.3 - 47.1 % [facility] Hemoglobin.gastrointe stinal spec 1 Ql (Stl) 11.7 g/dL Low 11.9 - 15.1 g/dL [facility] Immature granulocytes/100 WBC (Bld) 0 % 0 [facility] Interpretation and review of laboratory results Abnormal [facility] Lymphocytes/100 WBC (Bld) 5 % Low 24 - 44 % [facility] MCH (RBC) [Entitic mass] 30.2 pg 25.2 - 33.5 pg [facility] MCHC (RBC) [Mass/Vol] 31.2 g/dL 28.4 - 34.8 g/dL [facility] MCV (RBC) [Entitic vol] 96.9 fL 82.6 - 102.9 fL [facility] Monocytes/100 WBC (Bld) 1 % 1 - 7 % [facility] Morphology Demetrio (Bld) [Interp] ANISOCYTOSIS PRESENT [facility] Morphology Demetrio (Bld) [Interp] INCREASED BANDS PRESENT [facility] NRBC Automated 0.0 0.0 per 100 WBC [facility] Platelet distribution width (Bld) [Ratio] 15.2 % High 11.8 - 14.4 % [facility] Platelet mean volume (Bld) [Entitic vol] 9.9 fL 8.1 - 13.5 fL [facility] Platelets (Bld) [#/Vol] 183 10*3/uL [facility] RBC (Bld) [#/Vol] 3.87 10*6/uL Low 3.95 - 5.1 1 m/uL [facility] Segmented neutrophils/100 WBC (Bld) 94 % High 36 - 66 % [facility] Segs Absolute 15.88 High [facility] WBC (Bld) [#/Vol] 16.9 10*3/uL High [facility] CBC with Diffon 08-15-2021 Abs. Basophil 0.00 k/uL Normal 0.0-0.2 [facility] Comment on above: Performed By: #### C MARC CDP, SED #### [facility] [address] [place] [address] Blood Bank Booking Clerk: Chriss Townsend MD Abs.Imm.Granulocyte 0.00 k/uL Normal 0.00-0.30 [facility] Comment on above: Performed By: #### C RP, CDP, SED #### [facility] [address] [place] [address] Blood Bank Booking Clerk: Chriss Townsend MD Abs.Neutrophil (Seg) 15.88 k/uL High 1.8-7.7 [facility] Comment on above: Performed By: #### C RP, CDP, SED #### [facility] [address] [place] [address] Blood Bank Booking Clerk: Chriss Townsend MD Basophils/100 WBC (Bld) 0 % Normal 0-2 [facility] Comment on above: Performed By: #### C RP, CDP, SED #### [facility] [address] [place] [address] Blood Bank Booking Clerk: Chriss Townsend MD Eosinophils (Bld) [#/Vol] 0.00 10*3/uL Normal 0.0-0.4 [facility] Comment on above: Performed By: #### C RP, CDP, SED #### [address] [address] Blood Bank Booking Clerk: Chriss Townsend MD Eosinophils/100 WBC (Bld) 0 % Low 1-4 [facility] Comment on above: Performed By: #### C RP, CDP, SED #### [address] [address] Blood Bank Booking Clerk: Chriss Townsend MD Immature granulocytes/100 WBC (Bld) 0 % Normal 0 [facility] Comment on above: Performed By: #### C RP, CDP, SED #### [address] [address] Blood Bank Booking Clerk: Chriss Townsend MD Lymphocytes (Bld) [#/Vol] 0.85 10*3/uL Low 1.0-4.8 [facility] Comment on above: Performed By: #### C RP, CDP, SED #### [facility] [employer] [address] [place] [address] Blood Bank Booking Clerk: Chriss Townsend MD Lymphocytes/100 WBC (Bld) 5 % Low 24-44 [facility] Comment on above: Performed By: #### C RP, CDP, SED #### [facility] [address] [place] [address] Blood Bank Booking Clerk: Chriss Townsend MD Monocytes (Bld) [#/Vol] 0.17 10*3/uL Normal 0.1-0.8 [facility] Comment on above: Performed By: #### C RP, CDP, SED #### [address] [address] Blood Bank Booking Clerk: Chriss Townsend MD Monocytes/100 WBC (Bld) 1 % Normal 1-7 [facility] Comment on above: Performed By: #### C RP, CDP, SED #### [facility] [employer] [address] [place] [address] Blood Bank Booking Clerk: Chriss Townsend MD Morphology Demetrio (Bld) [Interp] ANISOCYTOSIS PRESENT Normal [facility] Comment on above: Result Comment: INCR EASED BANDS PRESENT Performed By: #### C RP, CDP, SED #### [address] [address] Blood Bank Booking Clerk: Chriss Townsend MD Neutrophil (Seg) 94 % High 36-66 [facility] Comment on above: Performed By: #### C RP, CDP, SED #### [address] [address] Blood Bank Booking Clerk: Chriss Townsend MD Erythrocyte distribution width (RBC) [Ratio] 15.2 % High 11.8-14.4 [facility] Comment on above: Performed By: #### C RP, CDP, SED #### [facility] [employer] [address] [place] [address] Blood Bank Booking Clerk: Chriss Townsend MD Hematocrit (Bld) [Volume fraction] 37.5 % Normal 36.3-47.1 [facility] Comment on above: Performed By: #### C RP, CDP, SED #### [facility] [employer] [address] [place] [address] Blood Bank Booking Clerk: Chriss Townsend MD Hemoglobin (Bld) [Mass/Vol] 11.7 g/dL Low 11.9-15.1 [facility] Comment on above: Performed By: #### C RP, CDP, SED #### [address] [address] Blood Bank Booking Clerk: Chriss Townsend MD MCH (RBC) [Entitic mass] 30.2 pg Normal 25.2-33.5 [facility] Comment on above: Performed By: #### C RP, CDP, SED #### [place] [address] Blood Bank Booking Clerk: Chriss Townsend MD MCHC (RBC) [Mass/Vol] 31.2 g/dL Normal 28.4-34.8 [facility] Comment on above: Performed By: #### C RP, CDP, SED #### [place] [address] Blood Bank Booking Clerk: Chriss Townsend MD MCV (RBC) [Entitic vol] 96.9 fL Normal 82.6-102.9 [facility] Comment on above: Performed By: #### C RP, CDP, SED #### [place] [address] Blood Bank Booking Clerk: Chriss Townsend MD NRBC Automated 0.0 per 100 WBC Normal 0.0 [facility] Comment on above: Performed By: #### C RP, CDP, SED #### [place] [address] Blood Bank Booking Clerk: Chriss Townsend MD Platelet mean volume (Bld) [Entitic vol] 9.9 fL Normal 8.1-13.5 [facility] Comment on above: Performed By: #### C RP, CDP, SED #### [place] [address] Blood Bank Booking Clerk: Chriss Townsend MD Platelets (Bld) [#/Vol] 183 10*3/uL Normal 138-453 [facility] Comment on above: Performed By: #### C RP, CDP, SED #### [facility] [address] [place] [address] Blood Bank Booking Clerk: Chriss Townsend MD RBC (Bld) [#/Vol] 3.87 10*6/uL Low 3.95-5.11 [facility] Comment on above: Performed By: #### C RP, CDP, SED #### [facility] [address] [place] [address] Blood Bank Booking Clerk: Chriss Townsend MD WBC (Bld) [#/Vol] 16.9 10*3/uL High 3.5-11.3 [facility] Comment on above: Performed By: #### C RP, CDP, SED #### [facility] [address] [place] [address] Blood Bank Booking Clerk: Chriss Townsend MD [facility] 08-15-2021 CK [Catalytic activity/Vol] 33 U/L 26 - 192 U/L [facility] CK [Catalytic activity/Vol] 42 U/L 26 - 192 U/L [facility] CK [Catalytic activity/Vol] 44 U/L 26 - 192 U/L [facility] CT CERVICAL SPINE WO CONTRAS [...] Josh Jackson MD 08/15/21 Final result Normal [facility] No acute abnormality of the cervical spine. Degenerative disc disease of C4-C5, C5-C6 and C6-C7 disc, with osteoarthritis of the right facet joints. [facility] EXAMINATION: CT OF THE CERVICAL [...] There is no prevertebral soft tissue swelling. [facility] Josh Jackson MD - 08/15/2021 [...] with osteoarthritis of the right facet joints. [employer] Work Phone: CT CERVICAL SPINE WO CONTRAS TOrdered By: Josh Jackson on 08-15-2021 [employer] Work Phone: CT FEMUR LEFT W CONTRASTon [...] by: Mik Cantu 08/14/21 Final result Normal [facility] CT FEMUR RIGHT W CONTRASTon 08-15-2021 CT [...] by: Mik Cantu 08/15/21 Final result Normal [facility] CT HEAD WO CONTRASTon 2021 CT HEAD [...] Alessio Brady MD 08/15/21 Final result Normal [facility] No acute intracrania l abnormality. If there remains concern for meningitis contrast-enhanced MRI suggested [facility] EXAMINATION: CT OF THE HEAD [...] of the visualized skull or soft tissues. [facility] Alessio Brady MD - 08/15/2021 [...] remains concern for meningitis contrast-enhanced MRI suggested [employer] Phone: CT HEAD WO CONTRASTOrdered B y: Alessio Brady on 08-15-2021 [employer] Phone: CT HUMERUS RIGHT W CONTRASTo n [...] Cantu 08/15/21 Edited Result - FINAL Normal [facility] CT LUMBAR SPINE WO CONTRASTo n 08-15-2021 [...] Josh Jackson MD 08/15/21 Final result Normal [facility] Bilateral sacral win g insufficiency fractures. Degenerative changes as described above. [facility] EXAMINATION: CT OF THE LUMBAR [...] SOFT TISSUES/RETROPERITONEUM: No paraspinal mass is seen. [facility] Josh Jackson MD - 08/15/2021 [...] insufficiency fractures. Degenerative changes as described above. [facility] [employer] Work Phone: [facility] [employer] Work Phone: CT RADIUS ULNA RIGHT W CONTR Stephenie 08-15-2021 Radiology Study observation (narrative) [facility] [employer] Phone: CT SHOULDER RIGHT W CONTRAST on [...] Cantu 08/15/21 Edited Result - FINAL Normal [facility] CT THORACIC SPINE WO CONTRAS Ton 08-15-2021 [...] destructive lesion is seen. There is a vbbd-yh-iyzzohyl compression fracture of the T4 vertebral body without compromise of the spinal canal. There are no acute fracture lines noted. DEGENERATIVE CHANGES: No gross spinal canal stenosis or bony neural foraminal narrowing of the thoracic spine. SOFT TISSUES: There are hypoventilatory changes in the posterior aspects of the lungs. IMPRESSION: Ftxt-xx-pialsdkd compression fracture of the T4 vertebral body, of undetermined age. Clinical correlation suggested. Hypoventilatory changes in the posterior aspects of the lungs. Interpreted by: Josh Jackson MD Signed by: Josh Jackson MD 08/15/21 Final result Normal [facility] Hdyx-md-hqybaruy compression fracture of the T4 vertebral body, [...] destructive lesion is seen. There is a afrv-em-dbmutuoy compression fracture of the T4 vertebral body without compromise of the spinal canal. There are no acute fracture lines noted. DEGENERATIVE CHANGES: No gross spinal canal stenosis or bony neural foraminal narrowing of the thoracic spine. SOFT TISSUES: There are hypoventilatory changes in the posterior aspects of the lungs. [facility] Josh Ochoa MD - 08/15/2021 [...] destructive lesion is seen. There is a gtqg-ef-lrlcqssv compression fracture of the T4 vertebral body without compromise of the spinal canal. There are no acute fracture lines noted. DEGENERATIVE CHANGES: No gross spinal canal stenosis or bony neural foraminal narrowing of the thoracic spine. SOFT TISSUES: There are hypoventilatory changes in the posterior aspects of the lungs. IMPRESSION: Xvxq-vf-kwtcwrji compression fracture of the T4 vertebral body, of undetermined age. Clinical correlation suggested. Hypoventilatory changes in the posterior aspects of the lungs. [facility] Work Phone: [facility] [employer] Phone: CT TIBIA FIBULA LEFT W CONTR [...] by: Mik Cantu 08/14/21 Final result Normal [facility] CT TIBIA FIBULA RIGHT W CONT [facility] 08-15-2021 CT TIBIA FIBULA RIGHT W [...] by: Mik Cantu 08/15/21 Final result Normal [facility] Cortisolon 08-15-2021 Cortisol 18.7 ug/dL High 2.7-18.4 [facility] Comment on above: Result Comment: Cortisol Reference Range: AM 6.0-18.4 PM 2.7-10.5 Performed By: #### C RP, CDP, SED #### [facility] [address] [place] [address] Blood Bank Booking Clerk: Chriss Townsend MD Cortisol Totalon 08-15-2021 Cortisol 18.7 ug/dL High 2.7 - 18.4 ug/dL [facility] Comment on above: Cortisol Reference Range: AM 6.0-18.4 PM 2.7-10.5 Interpretation and review of laboratory results Abnormal [facility] Creatine Kinaseon 08-15-2021 CK [Catalytic activity/Vol] 33 U/L Normal - [facility] Comment on above: Performed By: #### C OVRB #### [facility] [address] Blood Bank Booking Clerk: Chriss Townsend MD CK [Catalytic activity/Vol] 42 U/L Normal - [facility] Comment on above: Performed By: #### C RP, CDP, SED #### [address] [address] Blood Bank Booking Clerk: Chriss Townsend MD CK [Catalytic activity/Vol] 44 U/L Normal 26-192 [facility] Comment on above: Performed By: #### C OVRB #### [address] [address] Blood Bank Booking Clerk: Chriss Townsend MD Crystals, Fluidson 2 Type of Specimen .SYNOVIAL FLUID Normal [facility] Comment on above: Result Comment: RIGH T SHOULDER Performed By: #### L ACTIC #### [address] [address] Blood Bank Booking Clerk: Chriss Townsend MD Performed By: #### V NCT #### [address] [address] Blood Bank Booking Clerk: Chriss Townsend MD Cult,Fluidon 08-15-2021 Cult,Fluid Specimen Description .SYNOVIAL FLUID .ASPIRATE RIGHT SHOULDER Culture DUE TO THE SPECIMEN TYPE, THE ORDER WAS CANCELED AND REORDERED. PLEASE REFER TO: ANAEROBIC, AEROBIC CULTURE Report Status FINAL 08/15/2021 Normal [facility] Comment on above: Performed By: #### L ACTIC #### [address] [address] Blood Bank Booking Clerk: Chriss Townsend MD Culture, Body Fluidon 2021 Bacteria identified Cx Nom (Unsp spec) DUE TO THE SPECIMEN TYPE, THE ORDER WAS CANCELED AND REORDERED. PLEASE REFER TO: ANAEROBIC, AEROBIC CULTURE [facility] Specimen Description .SYNOVIAL FLUID .ASPIRATE [facility] [employer] [facility] Fluid Cell Count and Diffon 08-15-2021 Lymphocytes/100 WBC (Bld) 2 % Normal [facility] Comment on above: Result Comment: The reference range and other method performance specifications have not been established for this body fluid. The test result must be integrated into the clinical context for interpretation. Performed By: #### V NCT #### [address] [address] Blood Bank Booking Clerk: Chriss Townsend MD Neutrophils/100 WBC (Bld) 93 % Normal [facility] Comment on above: Result Comment: The reference range and other method performance specifications have not been established for this body fluid. The test result must be integrated into the clinical context for interpretation. Performed By: #### V NCT #### [address] [address] Blood Bank Booking Clerk: Chriss Townsend MD RBC [id number] /mm3 Normal [facility] Comment on above: Result Comment: The reference range and other method performance specifications have not been established for this body fluid. The test result must be integrated into the clinical context for interpretation. Performed By: #### V NCT #### [address] [address] Blood Bank Booking Clerk: Chriss Townsend MD WBC [id number] /mm3 Normal [facility] Comment on above: Result Comment: The reference range and other method performance specifications have not been established for this body fluid. The test result must be integrated into the clinical context for interpretation. Performed By: #### V NCT #### [address] [address] Blood Bank Booking Clerk: Chriss Townsend MD Gram Stainon 08-15-2021 Microscopic observation Gram stain Nom (Unsp spec) Specimen Description .ASPIRATE .SYNOVIAL FLUID RIGHT SHOULDER Direct Exam DUPLICATE ORDER GRAM STAIN INCLUDED WITH AEROBIC, ANAEROBIC CULTURE Report Status FINAL 08/15/2021 Normal [facility] Comment on above: Performed By: #### L ACTIC #### [address] [address] Blood Bank Booking Clerk: Chriss Townsend MD Direct Exam DUPLICATE ORDER GRAM STAIN INCLUDED WITH AEROBIC, ANAEROBIC CULTURE [facility] Specimen Description .ASPIRATE .SYNOVIAL FLUID [facility] IR ARTHR/ASP/INJ MAJOR JT/BU RSA [...] AP-230 CGY CM SQUARED Views 1 PROCEDURE: BILLET WORKER: Barrington Paniagua MD Informed consent was obtained [...] Barrington Paniagua MD 08/15/21 Final result Normal [facility] Successful ultrasoun d and fluoroscopic-guided right shoulder fluid collection aspiration, as above. [facility] EXAMINATION: FLUOROSCOPIC AND ULTRASONIC GUIDED ASPIRATION RIGHT SHOULDER PERIARTICULAR FLUID COLLECTION 08/15/2021 11:54 am HISTORY: ORDERING SYSTEM PROVIDED HISTORY: right should asp. TECHNOLOGIST PROVIDED HISTORY: right should asp. Reason for Exam: Right shoulder aspiration FLUOROSCOPY DOSE AND TYPE OR TIME AND EXPOSURES: FLUOROSCOPY TIME-0.3 MINUTES D AP-230 CGY CM SQUARED Views 1 PROCEDURE: BILLET WORKER: Barrington Paniagua MD Informed consent was obtained [...] was removed and provided for further analysis. [facility] Barrington Paniagua MD - 08/15/2021 EXAMINATION: FLUOROSCOPIC AND ULTRASONIC GUIDED ASPIRATION RIGHT SHOULDER PERIARTICULAR FLUID COLLECTION 08/15/2021 11:54 am HISTORY: ORDERING SYSTEM PROVIDED HISTORY: right should asp. TECHNOLOGIST PROVIDED HISTORY: right should asp. Reason for Exam: Right shoulder aspiration FLUOROSCOPY DOSE AND TYPE OR TIME AND EXPOSURES: FLUOROSCOPY TIME-0.3 MINUTES D AP-230 CGY CM SQUARED Views 1 PROCEDURE: BILLET WORKER: Barrington Paniagua MD Informed consent was obtained [...] right shoulder fluid collection aspiration, as above. [employer] Phone: Radiology Study observation (narrative) [employer] Phone: IR ARTHR/ASP/INJ MAJOR JT/BU RSA W USOrdered By: Barrington Paniagua on 08-15-2021 [employer] Phone: IR LUMBAR PUNCTURE FOR DIAGN OSISon 08-15-2021 IR LUMBAR PUNCTURE FOR DIAGNOSIS EXAMINATION: ATTEMPTED FLUOROSCOPIC GUIDED LUMBAR PUNCTURE 08/15/2021 11:54 am HISTORY: ORDERING SYSTEM PROVIDED HISTORY: neck pain, elevated ESR, CRP and leukocytosis TECHNOLOGIST PROVIDED HISTORY: neck pain, elevated ESR, CRP and leukocytosis FLUOROSCOPY DOSE AND TYPE OR TIME AND EXPOSURES: 3.6 minutes fluoroscopy time D AP-6921 cGy cm squared PROCEDURE: BILLET WORKER: Barrington Paniagua MD Informed consent was obtained after the risks and benefits of the procedure were discussed with the patient and all questions were answered fully. Truxton protocol was observed and a standard timeout was performed. The patient was positioned the ydkr-iuld-oqyg decubitus position, and the back was prepped [...] IMPRESSION: Unsuccessful fluoroscopic-guided lumbar puncture in the wfxy-imti-ghiq decubitus position, as above. Interpreted by: Barrington Paniagua MD Signed by: Barrington Paniagua MD 08/15/21 Final result Normal [facility] Unsuccessful fluoroscopic-guided lumbar puncture in the ffet-lgkl-fqjd decubitus position, as above. [facility] EXAMINATION: ATTEMPTED FLUOROSCOPIC GUIDED LUMBAR PUNCTURE 08/15/2021 11:54 am HISTORY: ORDERING SYSTEM PROVIDED HISTORY: neck pain, elevated ESR, CRP and leukocytosis TECHNOLOGIST PROVIDED HISTORY: neck pain, elevated ESR, CRP and leukocytosis FLUOROSCOPY DOSE AND TYPE OR TIME AND EXPOSURES: 3.6 minutes fluoroscopy time D AP-6921 cGy cm squared PROCEDURE: BILLET WORKER: Barrington Paniagua MD Informed consent was obtained after the risks and benefits of the procedure were discussed with the patient and all questions were answered fully. Truxton protocol was observed and a standard timeout was performed. The patient was positioned the byhn-fclh-iefq decubitus position, and the back was prepped [...] renal collecting system mildly distended urinary bladder. [facility] Barrington Paniagua MD - 08/15/2021 EXAMINATION: ATTEMPTED FLUOROSCOPIC GUIDED LUMBAR PUNCTURE 08/15/2021 11:54 am HISTORY: ORDERING SYSTEM PROVIDED HISTORY: neck pain, elevated ESR, CRP and leukocytosis TECHNOLOGIST PROVIDED HISTORY: neck pain, elevated ESR, CRP and leukocytosis FLUOROSCOPY DOSE AND TYPE OR TIME AND EXPOSURES: 3.6 minutes fluoroscopy time D AP-6921 cGy cm squared PROCEDURE: BILLET WORKER: Barrington Paniagua MD Informed consent was obtained after the risks and benefits of the procedure were discussed with the patient and all questions were answered fully. Truxton protocol was observed and a standard timeout was performed. The patient was positioned the phof-amit-reag decubitus position, and the back was prepped [...] IMPRESSION: Unsuccessful fluoroscopic-guided lumbar puncture in the csjz-oiut-qwzm decubitus position, as above. [facility] [employer] Work Phone: [facility] [employer] Work Phone: Radiology Study observation (narrative) [facility] Work Phone: Lactate, Sepsison 08-15-2021 Lactic Acid,Sep Wbld 2.7 mmol/L High 0.5-1.9 [facility] Comment on above: Performed By: #### C OVRB #### [facility] [address] [place] [address] Blood Bank Booking Clerk: Chriss Townsend MD Lactic Acid,Sep Wbld 3.0 mmol/L High 0.5-1.9 [facility] Comment on above: Performed By: #### C OVRB #### [facility] [address] [place] [address] Blood Bank Booking Clerk: Chriss Townsend MD Interpretation and review of laboratory results Abnormal [facility] Lactic Acid, Sepsis, Whole Blood 2.7 mmol/L High 0.5 - 1.9 mmol/L [facility] Lactic Acidon 05-26-2022 Lactic Acid,Whole Bl 1.5 mmol/L Normal 0.7-2.1 [facility] Comment on above: Performed By: #### L ACTIC #### [facility] [place] [address] Blood Bank Booking Clerk: Chriss Townsend MD Lactic Acid, Plasmaon 2021 Lactic Acid, Whole Blood 1.5 mmol/L 0.7 - 2.1 mmol/L [facility] MRSA DNA Probe, Nasalon 07-22 MRSA, DNA, Nasal Negative NEGATIVE [facility] Comment on above: NEGATIVE: MRSA DNA n ot detected by nucleic acid amplification. Results should be used as an adjunct to nosocomial control efforts to identify patients needing enhanced precautions. The test is not intended to identify patients with staphylococcal infections. Results should not be used to guide or monitor treatment for MRSA infections. Specimen Description .NASAL SWAB [facility] MRSA, DNA, Nasalon MRSA, DNA, Nasal Negative Normal [facility] Comment on above: Result Comment: [...] infections. Performed By: #### M RSANO #### [facility] [address] [place] [id number] Blood Bank Booking Clerk: Chriss Townsend MD Specimen Description .NASAL SWAB Normal [facility] Comment on above: Performed By: #### M RSANO #### [facility] [place], [place] [id number] Blood Bank Booking Clerk: Chriss Townsend MD No Panel Informationon 08-15 Radiology Study observation (narrative) [facility] Work Phone: Radiology Study observation (narrative) [facility] Work Phone: [facility] No evidence of necrotizing fasciitis of the right lower extremity. Mild superficial subcutaneous fatty edema lateral to the right hip and intermittently laterally and posteriorly in the lower leg. Healing fractures at the medial aspect of the left body of pubis and mid right inferior pubic ramus. [facility] EXAMINATION: CT OF THE RIGHT [...] unremarkable. Joint: Mild degenerative changes incidentally noted. [facility] Mik Cantu - 08/15/2021 EXAMINATION: [...] pubis and mid right inferior pubic ramus. [facility] [employer] Work Phone: [facility] [employer] [facility] [employer] Phone: Procalcitoninon 08-15-2021 Procalcitonin 3.47 ng/mL High <0.09 [facility] Comment on above: Result Comment: Suspected Sepsis: [...] entered into the Change in Procalcitonin Calculator (www.inrjgm-ots-phdffihazm.com) to determine the patient's Mortality Risk Prognosis In healthy neonates, plasma Procalcitonin (PCT) concentrations increase gradually after , reaching peak values at about 24 hours of age then decrease to normal values below 0.5 ng/mL by 48-72 hours of age. 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 ! + -+ + + [facility] Phone: Radiology Study observation (narrative) [facility] Phone: VL DUP UPPER EXTREMITY VENOU S RIGHTOrdered By: Unknown Result on 08-15-2021 [employer] [employer] XR ANKLE RIGHT (MIN 3 VIEWS) on [...] Barbara Rivera DO 08/15/21 Final result Normal [facility] No acute bony abnorm ality or radiographic [...] calcaneal spur. Mild bimalleolar soft tissue swelling. [facility] RIS CONSOLID[facility] Barbara Rivera DO - [...] Bimalleolar soft tissue swelling. Plantar calcaneal spur. [facility] Phone: Radiology Study observation (narrative) [facility] Phone: XR ANKLE RIGHT (MIN 3 VIEWS) Ordered By: Barbara Rivera on 08-15-2021 [facility] Phone: APTTon 08-14-2021 aPTT Coag (Bld) [Time] 19.6 s Low 20.5-30.5 [facility] Comment on above: Result Comment: IV Heparin Therapy Range: 48.6-77.8 No clot found in specimen, results questionable. Performed By: #### L ACTIC #### [facility] [address] [place] [address] Blood Bank Booking Clerk: Chriss Townsend MD aPTT Coag (Bld) [Time] 19.6 s Low [facility] Comment on above: IV Heparin Therapy Range: 48.6-77.8 No clot found in specimen, results questionable. Interpretation and review of laboratory results Abnormal [facility] C-Reactive Proteinon CRP [Mass/Vol] 258.6 mg/L High 0.0-5.0 [facility] Comment on above: Performed By: #### C RP, CDP, SED #### [facility] [address] [id number] Blood Bank Booking Clerk: Chriss Townsend MD CRP [Mass/Vol] 258.6 mg/L High 0.0 - 5.0 mg/L [facility] Interpretation and review of laboratory results Abnormal [facility] CRP [Mass/Vol] 249.9 mg/L High 0.0 - 5.0 mg/L [facility] CBC with Auto Differentialon 08-14-2021 Absolute Eos # 0.00 [place] [facility] Absolute Immature Granulocyte 2.56 High [facility] Absolute Lymph # 1.40 [facility] Absolute [place] # 0.23 [facility] Basophils (Bld) [#/Vol] 0.00 10*3/uL [facility] Basophils/100 WBC (Bld) 0 % 0 - 2 % [facility] Eosinophils/100 WBC (Bld) 0 % Low 1 - 4 % [facility] Hematocrit (Bld) [Volume fraction] 40.4 % 36.3 - 47.1 % [facility] Hemoglobin.gastrointe stinal spec 1 Ql (Stl) 12.4 g/dL 11.9 - 15.1 g/dL [facility] Immature granulocytes/100 WBC (Bld) 11 % High 0 [facility] Interpretation and review of laboratory results Abnormal [facility] Lymphocytes/100 WBC (Bld) 6 % Low 24 - 44 % [facility] MCH (RBC) [Entitic mass] 29.9 pg 25.2 - 33.5 pg [facility] MCHC (RBC) [Mass/Vol] 30.7 g/dL 28.4 - 34.8 g/dL [facility] MCV (RBC) [Entitic vol] 97.3 fL 82.6 - 102.9 fL [facility] Monocytes/100 WBC (Bld) 1 % 1 - 7 % [facility] Morphology Demetrio (Bld) [Interp] ANISOCYTOSIS PRESENT [facility] NRBC Automated 0.0 0.0 per 100 WBC [facility] Platelet distribution width (Bld) [Ratio] 15.0 % High 11.8 - 14.4 % [facility] Platelets (Bld) [#/Vol] See Reflexed IPF Result [facility] RBC (Bld) [#/Vol] 4.15 10*6/uL 3.95 - 5.1 1 m/uL [facility] Segmented neutrophils/100 WBC (Bld) 82 % High 36 - 66 % [facility] Segs Absolute 19.11 High [facility] WBC (Bld) [#/Vol] 23.3 10*3/uL High [facility] Absolute Eos # <0.03 [facility] Absolute Immature Granulocyte 0.20 [facility] Absolute Lymph # 0.88 Low [facility] Absolute [place] # 0.50 [facility] Basophils (Bld) [#/Vol] 0.03 10*3/uL [facility] Basophils/100 WBC (Bld) 0 % 0 - 2 % [facility] Eosinophils/100 WBC (Bld) 0 % Low 1 - 4 % [facility] Hematocrit (Bld) [Volume fraction] 43.8 % 36.3 - 47.1 % [facility] Hemoglobin.gastrointe stinal spec 1 Ql (Stl) 13.5 g/dL 11.9 - 15.1 g/dL [facility] Immature granulocytes/100 WBC (Bld) 1 % High 0 [facility] Interpretation and review of laboratory results Abnormal [facility] Lymphocytes/100 WBC (Bld) 5 % Low 24 - 43 % [facility] MCH (RBC) [Entitic mass] 29.9 pg 25.2 - 33.5 pg [facility] MCHC (RBC) [Mass/Vol] 30.8 g/dL 28.4 - 34.8 g/dL [facility] MCV (RBC) [Entitic vol] 96.9 fL 82.6 - 102.9 fL [facility] Monocytes/100 WBC (Bld) 3 % 3 - 12 % [facility] NRBC Automated 0.0 0.0 per 100 WBC [facility] Platelet distribution width (Bld) [Ratio] 14.8 % High 11.8 - 14.4 % [facility] Platelet mean volume (Bld) [Entitic vol] 9.5 fL 8.1 - 13.5 fL [facility] Platelets (Bld) [#/Vol] 259 10*3/uL [facility] RBC (Bld) [#/Vol] 4.52 10*6/uL 3.95 - 5.1 1 m/uL [facility] Segmented neutrophils/100 WBC (Bld) 91 % High 36 - 65 % [facility] Segs Absolute 15.50 High [facility] WBC (Bld) [#/Vol] 17.1 10*3/uL High [facility] CBC with Diffon 08-14-2021 Abs. Basophil 0.00 k/uL Normal 0.0-0.2 [facility] Comment on above: Performed By: #### C SEBASTIAN TRAN, SED #### [facility] [address] [place], [place] [id number] Blood Bank Booking Clerk: Chriss Townsend MD Abs.Imm.Granulocyte 2.56 k/uL High 0.00-0.30 [facility] Comment on above: Performed By: #### C SEBASTIAN TRAN, SED #### [facility] [address] [place], [place] [id number] Blood Bank Booking Clerk: Chriss Townsend MD Abs.Neutrophil (Seg) 19.11 k/uL High 1.8-7.7 [facility] Comment on above: Performed By: #### C SEBASTIAN TRAN, SED #### [address] [address] Blood Bank Booking Clerk: Chriss Townsend MD Basophils/100 WBC (Bld) 0 % Normal 0-2 [facility] Comment on above: Performed By: #### C RP, CDP, SED #### [facility] [address] [place] [address] Blood Bank Booking Clerk: Chriss Townsend MD Eosinophils (Bld) [#/Vol] 0.00 10*3/uL Normal 0.0-0.4 [facility] Comment on above: Performed By: #### C RP, CDP, SED #### [address] [address] Blood Bank Booking Clerk: Chriss Townsend MD Eosinophils/100 WBC (Bld) 0 % Low 1-4 [facility] Comment on above: Performed By: #### C RP, CDP, SED #### [address] [address] Blood Bank Booking Clerk: Chriss Townsend MD Immature granulocytes/100 WBC (Bld) 11 % High 0 [facility] Comment on above: Performed By: #### C RP, CDP, SED #### [address] [address] Blood Bank Booking Clerk: Chriss Townsend MD Lymphocytes (Bld) [#/Vol] 1.40 10*3/uL Normal 1.0-4.8 [facility] Comment on above: Performed By: #### C RP, CDP, SED #### [address] [address] Blood Bank Booking Clerk: Chriss Townsend MD Lymphocytes/100 WBC (Bld) 6 % Low 24-44 [facility] Comment on above: Performed By: #### C RP, CDP, SED #### [facility] [employer] [address] [place] [address] Blood Bank Booking Clerk: Chriss Townsend MD Monocytes (Bld) [#/Vol] 0.23 10*3/uL Normal 0.1-0.8 [facility] Comment on above: Performed By: #### C RP, CDP, SED #### [address] [address] Blood Bank Booking Clerk: Chriss Townsend MD Monocytes/100 WBC (Bld) 1 % Normal 1-7 [facility] Comment on above: Performed By: #### C RP, CDP, SED #### [address] [address] Blood Bank Booking Clerk: Chriss Townsend MD Morphology Demetrio (Bld) [Interp] ANISOCYTOSIS PRESENT Normal [facility] Comment on above: Performed By: #### C RP, CDP, SED #### [address] [address] Blood Bank Booking Clerk: Chriss Townsend MD Neutrophil (Seg) 82 % High 36-66 [facility] Comment on above: Performed By: #### C RP, CDP, SED #### [address] [address] Blood Bank Booking Clerk: Chriss Townsend MD Erythrocyte distribution width (RBC) [Ratio] 15.0 % High 11.8-14.4 [facility] Comment on above: Performed By: #### C RP, CDP, SED #### [facility] [employer] [address] [place] [address] Blood Bank Booking Clerk: Chriss Townsend MD Hematocrit (Bld) [Volume fraction] 40.4 % Normal 36.3-47.1 [facility] Comment on above: Performed By: #### C RP, CDP, SED #### [facility] [employer] [address] [place] [address] Blood Bank Booking Clerk: Chriss Townsend MD Hemoglobin (Bld) [Mass/Vol] 12.4 g/dL Normal 11.9-15.1 [facility] Comment on above: Performed By: #### C RP, CDP, SED #### [address] [address] Blood Bank Booking Clerk: Chriss Townsend MD MCH (RBC) [Entitic mass] 29.9 pg Normal 25.2-33.5 [facility] Comment on above: Performed By: #### C RP, CDP, SED #### [address] [address] Blood Bank Booking Clerk: Chriss Townsend MD MCHC (RBC) [Mass/Vol] 30.7 g/dL Normal 28.4-34.8 [facility] Comment on above: Performed By: #### C RP, CDP, SED #### [place] [address] Blood Bank Booking Clerk: Chriss Townsend MD MCV (RBC) [Entitic vol] 97.3 fL Normal 82.6-102.9 [facility] Comment on above: Performed By: #### C RP, CDP, SED #### [address] [address] Blood Bank Booking Clerk: Chriss Townsend MD NRBC Automated 0.0 per 100 WBC Normal 0.0 [facility] Comment on above: Performed By: #### C RP, CDP, SED #### [place] [address] Blood Bank Booking Clerk: Chriss Townsend MD Platelet Count See Reflexed IPF Result Normal 138-453 [facility] Comment on above: Performed By: #### C RP, CDP, SED #### [place] [address] Blood Bank Booking Clerk: Chriss Townsend MD RBC (Bld) [#/Vol] 4.15 10*6/uL Normal 3.95-5.11 [facility] Comment on above: Performed By: #### C RP, CDP, SED #### [facility] [address], [place] [phone] Blood Bank Booking Clerk: Chriss Townsend MD WBC (Bld) [#/Vol] 23.3 10*3/uL High 3.5-11.3 [facility] Comment on above: Performed By: #### C RP, CDP, SED #### [facility] [address] [place], [place] [id number] Blood Bank Booking Clerk: Chriss Townsend MD CKon 08-14-2021 CK [Catalytic activity/Vol] 46 U/L 26 - 192 U/L [facility] COVID-19, Rapidon 08-14-2021 SARS-CoV-2 (COVID-19) RNA GLYNN+probe Ql (Unsp spec) Not detected Not Detected [facility] Comment on above: Rapid NAAT: The specimen [...] management decisions. Fact sheet for Healthcare Providers: https://www.fda.gov/media/224320/download Fact sheet for Patients: https://www.fda.gov/media/176901/download Methodology: Isothermal Nucleic Acid Amplification Specimen Description .NASOPHARYNGEAL SWAB [facility] Comp Metabolic Pr/rfx MGon 0 08-14-2021 AST [Catalytic activity/Vol] 40 U/L High <32 [facility] Comment on above: Performed By: #### C RP, CDP, SED #### [facility] [address] [place] [address] Blood Bank Booking Clerk: Chriss Townsend MD (cont.) [facility] Comment on above: Result Comment: Aver age GFR for 60-69 years old: 85 mL/min/1.73sq m Chronic Kidney Disease: <60 mL/min/1.73sq m Kidney failure: <15 mL/min/1.73sq m eGFR calculated using average adult body mass. Additional eGFR calculator available at: http://www.Justworks/multiple_crcl_2012.htm Performed By: #### C RP, CDP, SED #### [facility] [employer] [address] [place] [address] Blood Bank Booking Clerk: Chriss Townsend MD Albumin [Mass/Vol] 2.6 g/dL Low 3.5-5.2 [facility] Comment on above: Performed By: #### C RP, CDP, SED #### [address] [address] Blood Bank Booking Clerk: Chriss Townsend MD Albumin/Glob Ratio 0.8 Low 1.0-2.5 [facility] Comment on above: Performed By: #### C RP, CDP, SED #### [facility] [employer] [address] [place] [address] Blood Bank Booking Clerk: Chriss Townsend MD Alkaline Phos 165 U/L High 35-104 [facility] Comment on above: Performed By: #### C RP, CDP, SED #### [facility] [employer] [address] [place] [address] Blood Bank Booking Clerk: Chriss Townsend MD ALT [Catalytic activity/Vol] 38 U/L High 5-33 [facility] Comment on above: Performed By: #### C RP, CDP, SED #### [facility] [employer] [address] [place] [address] Blood Bank Booking Clerk: Chriss Townsend MD Anion gap [Moles/Vol] 14 mmol/L Normal 9-17 [facility] Comment on above: Performed By: #### C RP, CDP, SED #### [facility] [employer] [address] [place] [address] Blood Bank Booking Clerk: Chriss Townsend MD Bilirubin [Mass/Vol] 0.60 mg/dL Normal 0.3-1.2 [facility] Comment on above: Performed By: #### C RP, CDP, SED #### [facility] [employer] [address] [place] [address] Blood Bank Booking Clerk: Chriss Townsend MD Calcium [Mass/Vol] 9.3 mg/dL Normal 8.6-10.4 [facility] Comment on above: Performed By: #### C RP, CDP, SED #### [address] [address] Blood Bank Booking Clerk: Chriss Townsend MD Chloride [Moles/Vol] 104 mmol/L Normal 98-107 [facility] Comment on above: Performed By: #### C RP, CDP, SED #### [address] [address] Blood Bank Booking Clerk: Chriss Townsend MD CO2 [Moles/Vol] 22 mmol/L Normal 20-31 [facility] Comment on above: Performed By: #### C RP, CDP, SED #### [facility] [employer] [address] [place] [address] Blood Bank Booking Clerk: Chriss Townsend MD Creatinine [Mass/Vol] 0.62 mg/dL Normal 0.50-0.90 [facility] Comment on above: Performed By: #### C RP, CDP, SED #### [facility] [employer] [address] [place] [address] Blood [employer] Booking Clerk: Chriss Townsend MD GFR, Amer >60 Normal >60 [facility] Comment on above: Performed By: #### C RP, CDP, SED #### [facility] [address] [place] [address] Blood Bank Booking Clerk: Chriss Townsend MD GFR,non Amer >60 Normal >60 [facility] Comment on above: Performed By: #### C RP, CDP, SED #### [facility] [address] [place] [address] Blood Bank Booking Clerk: Chriss Townsend MD Glucose [Mass/Vol] 94 mg/dL Normal 70-99 [facility] Comment on above: Performed By: #### C RP, CDP, SED #### [facility] [address] [place] [address] Blood Bank Booking Clerk: Chriss Townsend MD Potassium [Moles/Vol] 4.1 mmol/L Normal 3.7-5.3 [facility] Comment on above: Performed By: #### C RP, CDP, SED #### [facility] [employer] [address] [place] [address] Blood Bank Booking Clerk: Chriss Townsend MD Protein [Mass/Vol] 5.8 g/dL Low 6.4-8.3 [facility] Comment on above: Performed By: #### C RP, CDP, SED #### [facility] [employer] [address] [place] [address] Blood Bank Booking Clerk: Chriss Townsend MD Sodium [Moles/Vol] 140 mmol/L Normal 135-144 [facility] Comment on above: Performed By: #### C RP, CDP, SED #### [facility] [address] [place] [address] Blood Bank Booking Clerk: Chriss Townsend MD Urea nitrogen [Mass/Vol] 11 mg/dL Normal 8-23 [facility] Comment on above: Performed By: #### C RP, CDP, SED #### [facility] [address] [place] [address] Blood Bank Booking Clerk: Chriss Townsend MD Comprehensive Metabolic Pane markell 08-14-2021 Albumin [Mass/Vol] 3.6 g/dL 3.5 - 5.2 g/dL [facility] Albumin/Globulin [Mass ratio] 1.2 {ratio} [facility] ALP (Bld) [Catalytic activity/Vol] 187 U/L High 35 - 104 U/L [facility] ALT [Catalytic activity/Vol] 31 U/L 5 - 33 U/L [facility] Anion gap [Moles/Vol] 12 mmol/L 9 - 17 mmol/L [facility] AST [Catalytic activity/Vol] 31 U/L <32 [facility] Bilirubin [Mass/Vol] 0.64 mg/dL 0.3 - 1 .2 mg/dL [facility] Calcium [Mass/Vol] 10.0 mg/dL 8.6 - 10. 4 mg/dL [facility] Chloride [Moles/Vol] 101 mmol/L 98 - 10 7 mmol/L [facility] CO2 [Moles/Vol] 27 mmol/L 20 - 31 mmol/L [facility] Creatinine [Mass/Vol] 0.55 mg/dL 0.50 - 0.90 mg/dL [facility] Free PSA/Total PSA [Mass fraction] 6.7 g/dL 6.4 - 8.3 g/dL [facility] GFR >60 >60 mL/min [facility] GFR Non- >60 >60 mL/min [facility] Glucose [Mass/Vol] 113 mg/dL High 70 - 99 mg/dL [facility] Potassium [Moles/Vol] 4.3 mmol/L 3.7 - 5.3 mmol/L [facility] Sodium [Moles/Vol] 140 mmol/L 135 - 144 mmol/L [facility] Urea nitrogen (BldV) [Mass/Vol] 12 mg/dL 8 - 23 mg/dL [facility] Urea nitrogen/Creatinine (Bld) [Mass ratio] 22 High [facility] Comprehensive Metabolic Pane l w/ Reflex to MGon 08-14-2021 Albumin [Mass/Vol] 2.6 g/dL Low 3.5 - 5.2 g/dL [facility] Albumin/Globulin [Mass ratio] 0.8 {ratio} Low [facility] ALP (Bld) [Catalytic activity/Vol] 165 U/L High 35 - 104 U/L [facility] ALT [Catalytic activity/Vol] 38 U/L High 5 - 33 U/L [facility] Anion gap [Moles/Vol] 14 mmol/L 9 - 17 mmol/L [facility] AST [Catalytic activity/Vol] 40 U/L High <32 [facility] Bilirubin [Mass/Vol] 0.60 mg/dL 0.3 - 1 .2 mg/dL [facility] Calcium [Mass/Vol] 9.3 mg/dL 8.6 - 10. 4 mg/dL [facility] Chloride [Moles/Vol] 104 mmol/L 98 - 10 7 mmol/L [facility] CO2 [Moles/Vol] 22 mmol/L 20 - 31 mmol/L [facility] Creatinine [Mass/Vol] 0.62 mg/dL 0.50 - 0.90 mg/dL [facility] Free PSA/Total PSA [Mass fraction] 5.8 g/dL Low 6.4 - 8.3 g/dL [facility] GFR >60 >60 mL/min [facility] GFR Non- >60 >60 mL/min [facility] GFR/1.73 sq M.predicted MDRD (S/P/Bld) [Vol rate/Area] [facility] Comment on above: Average GFR for 60-6 9 years old: 85 mL/min/1.73sq m Chronic Kidney Disease: <60 mL/min/1.73sq m Kidney failure: <15 mL/min/1.73sq m eGFR calculated using average adult body mass. Additional eGFR calculator available at: http://www.Justworks/multiple_crcl_2012.htm Glucose [Mass/Vol] 94 mg/dL 70 - 99 mg/dL [facility] Interpretation and review of laboratory results Abnormal [facility] Potassium [Moles/Vol] 4.1 mmol/L 3.7 - 5.3 mmol/L [employer] Sodium [Moles/Vol] 140 mmol/L 135 - 144 mmol/L [employer] [facility] Urea nitrogen (BldV) [Mass/Vol] 11 mg/dL 8 - 23 mg/dL [employer] [facility] EKG 12 LeadOrdered By: Ravi Henry on 08-14-2021 Atrial Rate 121 BPM [facility] Work Phone: P [place] 46 degrees [facility] Work Phone: P-R Interval 120 ms [employer] [facility] Work Phone: Q-T Interval 304 ms [employer] [facility] Work Phone: QRS Duration 66 ms [employer] [facility] Work Phone: QTc Calculation (Bazett) 431 ms [employer] Work Phone: R [place] 16 degrees [employer] [facility] Work Phone: T [place] 33 degrees [employer] Work Phone: Ventricular Rate 121 BPM [facility] [employer] Work Phone: [employer] Work Phone: EKG 12 Leadon 08-14-2021 Sinus tachycardia Possible Left atrial enlargement Cannot rule out Inferior infarct , age undetermined Abnormal ECG Confirmed by KIRA HENRY ([id number]) on 08/14/2021 12:32:[address] [facility] Kira Henry MD - 08/14/2021 Sinus tachycardia Possible Left atrial enlargement Cannot rule out Inferior infarct , age undetermined Abnormal ECG Confirmed by KIRA HENRY ([id number]) on 08/14/2021 12:32:57 PM [employer] Work Phone: Immature Platelet Fractionon 08-14-2021 Platelet, Fluorescence 243 [employer] Platelet, Immature Fraction 2.2 % 1.1 - 10.3 % [facility] Laboratory - Chemistry and C hemistry - challengeon 08-14-2021 GFR/1.73 sq M.predicted MDRD (S/P/Bld) [Vol rate/Area] [facility] Comment on above: Average GFR for 60-6 9 years old: 85 mL/min/1.73sq m Chronic Kidney Disease: <60 mL/min/1.73sq m Kidney failure: <15 mL/min/1.73sq m eGFR calculated using average adult body mass. Additional eGFR calculator available at: http://www.Justworks/multiple_crcl_2012.htm Stage 1: Some kidney damage normal GFR Stage 2: Mild kidney damage GFR 60-89 Stage 3: Moderate kidney damage GFR 30-59 Stage 4: Severe kidney damage GFR 15-29 Stage 5: Severe kidney damage GFR <15 ESRD - chronic treatment by dialysis or transplant Lactate, Sepsison 08-14-2021 Interpretation and review of laboratory results Abnormal [facility] Lactic Acid, Sepsis, Whole Blood 3.0 mmol/L High 0.5 - 1.9 mmol/L [facility] Lactic Acidon 08-14-2021 Lactic Acid,Whole Bl 2.8 mmol/L High 0.7-2.1 [facility] Comment on above: Performed By: #### C RP, CDP, SED #### [facility] [id number] Blood Bank Booking Clerk: Chriss Townsend MD Interpretation and review of laboratory results Abnormal [facility] Lactic Acid, Whole Blood 2.8 mmol/L High 0.7 - 2.1 mmol/L [facility] Lactate [Moles/Vol] 1.8 mmol/L 0.5 - 2. 2 mmol/L [facility] Lipaseon 08-14-2021 Lipase [Catalytic activity/Vol] 25 U/L 13 - 60 U/L [facility] Microscopic Urinalysison - [facility] Flipaste Bacteria, UA 3+ Abnormal None [facility] Epithelial Cells UA 2 TO 5 [facility] Interpretation and review of laboratory results Abnormal [facility] RBC, UA 5 TO 10 [facility] WBC, UA 2 TO 5 [facility] No Panel Informationon 08-14 No evidence of necrotizing fasciitis throughout the visualized left lower extremity. Healing fracture evident at the body of the left pubis and mid right inferior pubic ramus. Questionable very subtle nondisplaced fracture at the anterior aspect of the left acetabulum. This may represent artifact. [facility] EXAMINATION: CT OF THE LEFT [...] hindfoot. Joint: Mild degenerative changes incidentally noted. [facility] Mik Cantu - 08/14/2021 EXAMINATION: [...] the left acetabulum. This may represent artifact. [facility] Phone: [facility] Phone: Addendum by Mik Cantu on 08/15/2021 12:34 AM EDT ADDENDUM: Critical results were called by Dr. Mik Cantu to Dr. Mcelroy on 08/15/2021 at 00:07. [facility] Phone: Soft tissue air identified within upper [...] the lateral aspect of the upper arm. [facility] EXAMINATION: CT OF THE RIGHT [...] No significant degenerative changes. No osseous erosions. [facility] Mik Cantu - 08/14/2021 EXAMINATION: [...] the lateral aspect of the upper arm. [facility] Work Phone: Radiology Study observation (narrative) [facility] Work Phone: Radiology Study observation (narrative) [facility] [employer] Work Phone: [facility] [employer] Radiology Study observation (narrative) [facility] [employer] Work Phone: Interpretation and review of laboratory results Abnormal [facility] [employer] [facility] [employer] No Panel InformationOrdered By: Mik Cantu on 08-14-2021 [facility] Phone: PLT, Immature Fract.on 08-14 Platelet, Fluoresc. 243 k/uL Normal 138-453 [facility] Comment on above: Performed By: #### C RP, CDP, SED #### [employer] [facility] [place] [address] Blood Bank Booking Clerk: Chriss Townsend MD PLT, Immature Fract. 2.2 % Normal 1.1-10.3 [facility] Comment on above: Performed By: #### C RP, CDP, SED #### [facility] [address] [place] [address] Blood Bank Booking Clerk: Chriss Townsend MD PTon 9 INR Coag (PPP) [Relative time] 1.0 {INR} Normal [facility] Comment on above: Result Comment: Therapeutic Range: Moderate Anticoagulant Intensity: INR = 2.0-3.0 High Anticoagulant Intensity: INR = 2.5-3.5 Performed By: #### L ACTIC #### [facility] [employer] [address] [place] [id number] Blood Bank Booking Clerk: Chriss Townsend MD PT Coag (PPP) [Time] 10.4 s Normal 9.1-12.3 [facility] Comment on above: Performed By: #### L ACTIC #### [facility] [employer] [address] [place] [phone] Blood Bank Booking Clerk: Chriss Townsend MD Procalcitoninon 0 Interpretation and review of laboratory results Abnormal [facility] Procalcitonin 3.47 ng/mL High <0.09 [facility] Comment on above: Suspected Sepsis: <0.50 ng/mL [...] entered into the Change in Procalcitonin Calculator (www.youjuj-wlo-ybtzyeirre.Opicos) to determine the patient's Mortality Risk Prognosis In healthy neonates, plasma Procalcitonin (PCT) concentrations increase gradually after , reaching peak values at about 24 hours of age then decrease to normal values below 0.5 ng/mL by 48-72 hours of age. [facility] Protime-INRon 08-14-2021 INR Coag (Bld) [Relative time] 1.0 {INR} [facility] Comment on above: Therapeutic Range: Moderate Anticoagulant Intensity: INR = 2.0-3.0 High Anticoagulant Intensity: INR = 2.5-3.5 PT Coag (PPP) [Time] 10.4 s [facility] INR Coag (Bld) [Relative time] 1.2 {INR} [facility] Comment on above: Non-therapeutic Range: INR = 0.9-1.2 Therapeutic Range: Moderate Anticoagulant Intensity: INR = 2.0-3.0 High Anticoagulant Intensity: INR = 2.5-3.5 Interpretation and review of laboratory results Abnormal [facility] PT Coag (PPP) [Time] 14.6 s High [facility] PTCN-LoE-1ps 08-14-2021 SARS-CoV-2 (COVID-19) RNA GLYNN+probe Ql (Unsp [...] management decisions. Fact sheet for Healthcare Providers: https://www.fda.gov/media/659641/download Fact sheet for Patients: https://www.fda.gov/media/212356/download Methodology: Isothermal Nucleic Acid Amplification Performed By: #### C OVRB #### [facility] [address] [place] [address] Blood Bank Booking Clerk: Chriss Townsend MD SPECIMEN REJECTIONon Ordered Test PT PTT [facility] [employer] Specimen source Nom (Unsp spec) .BLOOD [facility] Sedimentation Rateon Sedimentation Rate 84 mm/Hr High 0-30 [facility] Comment on above: Performed By: #### C RP, CDP, SED #### [facility] [address] [place] [address] Blood Bank Booking Clerk: Chriss Townsend MD Interpretation and review of laboratory results Abnormal [facility] [employer] Sed Rate 84 High [facility] Interpretation and review of laboratory results Abnormal [facility] Sed Rate 66 High [facility] Specimen Rejectionon Source of sample .BLOOD Normal [facility] Comment on above: Performed By: #### C RP, CDP, SED #### [facility] [address] [place] [address] Blood Bank Booking Clerk: Chriss Townsend MD Test ordered PT PTT Normal [facility] Comment on above: Performed By: #### C RP, CDP, SED #### [employer] [address] [place] [address] Blood Bank Booking Clerk: Chriss Townsend MD Reason for Rejection Unable to perform testing: Specimen clotted. Normal [facility] Comment on above: Performed By: #### C RP, CDP, SED #### [facility] [address] [place] [address] [id number] Blood Bank Booking Clerk: Chriss Townsend MD Troponinon 08-14-2021 Troponin, High Sensitivity 7 ng/L 0 - 14 ng/L [facility] Comment on above: High Sensitivity Troponin values cannot be compared with other Troponin methodologies. Patients with high levels of Biotin oral intake (i.e >5mg/day) may have falsely decreased Troponin levels. Samples collected within 8 hours of biotin intake may require additional information for diagnosis. [facility] Urinalysis with Reflex to Cu ltureon 08-14-2021 Bilirubin Urine Negative NEGATIVE [facility] Color, UA Yellow Yellow [facility] Glucose, Ur Negative NEGATIVE [facility] Interpretation and review of laboratory results Abnormal [facility] Ketones Ql (U) Negative NEGATIVE [facility] Leukocyte esterase Test strip Ql (U) Negative NEGATIVE [facility] Nitrite, Urine Positive Abnormal NEGATIVE [facility] pH, UA 6.5 [facility] Protein, UA Negative NEGATIVE [facility] Specific Napier, UA 1.010 [facility] Turbidity UA Clear Clear [facility] Urine Hgb 1+ Abnormal NEGATIVE [facility] Urobilinogen, Urine Normal Normal [facility] XR PELVIS (MIN 3 VIEWS)on XR [...] Bhumika Clark MD 08/14/21 Final result Normal [facility] Nondisplaced fractur e of the left superior and inferior pubic rami at the pubic symphysis with ongoing healing. Nondisplaced right superior and inferior pubic rami fractures with ongoing healing. Nondisplaced bilateral sacral ala fractures with ongoing healing. [facility] EXAMINATION: ONE XRAY VIEW OF [...] urinary bladder and partially obscures oblique views.. [facility] Bhumika Clark MD - 08/14/2021 [...] bilateral sacral ala fractures with ongoing healing. [facility] Phone: XR PELVIS (MIN 3 VIEWS)Order ed By: Bhumika Clark on 08-14-2021 [facility] Phone: XR SHOULDER RIGHT (MIN 2 VIE [...] Boni Spain MD 08/14/21 Final result Normal [facility] No acute abnormality . [facility] EXAMINATION: THREE XRAY VIEWS OF THE RIGHT SHOULDER 08/14/2021 7:13 pm COMPARISON: None. HISTORY: ORDERING SYSTEM PROVIDED HISTORY: effusion TECHNOLOGIST PROVIDED HISTORY: AP, scapular Y, axillary. Thank you. [employer] FINDINGS: Glenohumeral joint is normally aligned. No evidence of acute fracture or dislocation. No abnormal periarticular calcifications. AC joint and glenohumeral joint degenerative changes Visualized lung is unremarkable. [facility] Boni Spain MD - 08/14/2021 [...] lung is unremarkable. IMPRESSION: No acute abnormality. [facility] Phone: XR SHOULDER RIGHT (MIN 2 VIE WS)Ordered By: Boni Spain on 08-14-2021 [facility] Phone: CULTURE URINEon 07-22-2021 CULTURE URINE Isolate [...] Trimethoprim/Sulfamethoxa zole <=20 S F Normal [facility] Comment on above: Performed By: #### C VDTBH #### [facility] [address] [place] [address] Dr. Laila Castle CBC AUTO DIFFon 07-20-2021 BASO # 0.1 103/ul Normal 0.0-0.1 [facility] Comment on above: Performed By: #### P OCGLUC #### [facility] [address] [place] [address] Dr. Laila Castle Basophils/100 WBC (Bld) 0.4 % Normal 0.2-2.0 [facility] Comment on above: Performed By: #### P OCGLUC #### [facility] [address] [place] [address] Dr. Laila Castle EO # 0.0 103/ul Normal 0.0-0.7 [facility] Comment on above: Performed By: #### P OCGLUC #### [facility] [address] [place] [address] Dr. Laila Castle Eosinophils/100 WBC (Bld) 0.1 % Critically low 0.9-7.0 [facility] Comment on above: Performed By: #### P OCGLUC #### [facility] [address] [place] [address] Dr. Laila Csatle Erythrocyte distribution width (RBC) [Ratio] 14.9 % Normal 11.0-15.0 [facility] Comment on above: Performed By: #### P OCGLUC #### [facility] [address] [place] [address] Dr. Laila Castle Hematocrit (Bld) [Volume fraction] 41.0 % Normal 36.0-48.0 [facility] Comment on above: Performed By: #### P OCGLUC #### [facility] [address] [address] [address] Laila Castle Hemoglobin (Bld) [Mass/Vol] 13.4 g/dL Normal 12.0-16.0 [facility] Comment on above: Performed By: #### P OCGLUC #### [facility] [address] [address] [address] Laila Castle IG # 0.24 10e3/ul Critically high 0.00-0.03 [facility] Comment on above: Performed By: #### P OCGLUC #### [facility] [address] [address] [address] Laila Castle IG % 1.5 % Critically high 0.0-0.5 [facility] Comment on above: Performed By: #### P OCGLUC #### [facility] [address] [address] [address] Laila Castle LYMPH # 1.2 103/ul Normal 1.2-3.8 [facility] Comment on above: Performed By: #### P OCGLUC #### [facility] [address] [address] [address] Laila Castle Lymphocytes/100 WBC (Bld) 7.5 % Critically low 20.5-60.0 [facility] Comment on above: Performed By: #### P OCGLUC #### [facility] [address] [address] [address] Laila Castle MANUAL DIFF REQ NO Normal [facility] Comment on above: Performed By: #### P OCGLUC #### [facility] [address] [address] [address] Laila Castle MCH (RBC) [Entitic mass] 30.2 pg Normal 26.7-34.0 [facility] Comment on above: Performed By: #### P OCGLUC #### [facility] [address] [place] [address] Dr. Laila Castle MCHC (RBC) [Mass/Vol] 32.7 g/dL Normal 29.9-35.2 [facility] Comment on above: Performed By: #### P OCGLUC #### [facility] [address] [address] [address] Laila Castle MCV (RBC) [Entitic vol] 92.6 fL Normal 81.0-99.0 [facility] Comment on above: Performed By: #### P OCGLUC #### [facility] [address] [address] [address] Laila Castle MONO # 0.8 103/ul Normal 0.3-0.8 [facility] Comment on above: Performed By: #### P OCGLUC #### [facility] [address] [address] [address] Laila Castle Monocytes/100 WBC (Bld) 5.3 % Normal 1.7-12.0 [facility] Comment on above: Performed By: #### P OCGLUC #### [facility] [address] [place] [address] Dr. Laila Castle NEUT # 13.5 103/ul Critically high 1.4-6.[address] [facility] Comment on above: Performed By: #### P OCGLUC #### [facility] [address] [place] [address] Dr. Laila Castle Neutrophils/100 WBC (Bld) 85.2 % Critically high 43.0-75.0 [facility] Comment on above: Performed By: #### P OCGLUC #### [facility] [address] [place] [address] Dr. Laila Castle Platelet mean volume (Bld) [Entitic vol] 9.3 fL Critically low 9.5-13.5 [facility] Comment on above: Performed By: #### P OCGLUC #### [facility] [address] [place] [address] Dr. Laila Castle PLT 263 103/ul Normal 150-450 [facility] Comment on above: Performed By: #### P OCGLUC #### [facility] [address] [place] [address] Dr. Laila Castle RBC 4.43 106/ul Normal 4.20-5.40 [facility] Comment on above: Performed By: #### P OCGLUC #### [facility] [address] [place], [place] [address] Dr. Laila Castle WBC 15.9 103/ul Critically high 4.0-11.0 [facility] Comment on above: Performed By: #### P OCGLUC #### [facility] [address] [place], [place] [address] LSPINE WO CONon [...] by: ZAN KRAUSE Date: 2021-07-20 10:25 Normal [facility] ER URINE PROFILEon 2 Bilirubin Ql (U) Negative Normal NEGATIVE [facility] Comment on above: Performed By: #### C MP #### [facility] [address] [place] [address] Dr. Laila Castle Clarity (U) CLEAR Normal CLEAR [facility] Comment on above: Performed By: #### C MP #### [facility] [address] [place] [address] Dr. Laila Castle Color (U) LT. YELLOW Normal YELLOW [facility] Comment on above: Performed By: #### C MP #### [facility] [address] [place] [address] Dr. Laila Castle ERUAHD A micrscopic examina tion will be performed if indicated. Normal [facility] Comment on above: Performed By: #### C MP #### [facility] [address] [place] [address] Dr. Laila Castle Glucose Ql (U) Negative Normal NEGATIVE [facility] Comment on above: Performed By: #### C MP #### [facility] [address] [place] [address] Dr. Laila Castle Hemoglobin Ql (U) Negative Normal NEGATIVE [facility] Comment on above: Performed By: #### C MP #### [facility] [address] [place] [address] Dr. Laila Castle Ketones Ql (U) Negative Normal NEGATIVE [facility] Comment on above: Performed By: #### C MP #### [facility] [address] [place] [address] Dr. Laila Castle LEUKOCYTES SMALL Abnormal NEGATIVE [facility] Comment on above: Performed By: #### C MP #### [facility] [address] [place] [address] Dr. Laila Castle Nitrite Ql (U) Negative Normal NEGATIVE [facility] Comment on above: Performed By: #### C MP #### [facility] [address] [place] [address] Dr. Laila Castle pH (U) 6.0 [pH] Normal 5-9 [facility] Comment on above: Performed By: #### C MP #### [facility] [address] [place] [address] Dr. Laila Castle SPEC GRAVITY <=1.005 Abnormal 1.005-<=1.0 25 [facility] Comment on above: Performed By: #### C MP #### [facility] [address] [place] [address] Dr. Laila Castle UA PROTEIN Negative Normal NEGATIVE/ TRACE [facility] Comment on above: Performed By: #### C MP #### [facility] [address] [place] [address] Dr. Laila Castle UR MICRO IND INDICATED Normal [facility] Comment on above: Performed By: #### C MP #### [facility] [address] [place] [address] Dr. Laila Castle Urobilinogen Qn (U) 0.2 {Mehran'U}/dL Normal 0.2 - 1. 0 [facility] Comment on above: Performed By: #### C MP #### [facility] [address] [place] [address] Dr. Laila Castle PROF CHEM 8 (BAS METB)on Anion gap [Moles/Vol] 12.1 mmol/L Normal [facility] Comment on above: Performed By: #### P OCGLUC #### [facility] [address] [address] [address] Laila Castle Calcium [Mass/Vol] 9.7 mg/dL Normal 8.5-10.1 [facility] Comment on above: Performed By: #### P OCGLUC #### [facility] [address] [address] [address] Laila Castle Chloride [Moles/Vol] 94 mmol/L Critically low 98-107 [facility] Comment on above: Performed By: #### P OCGLUC #### [facility] [address] [address] [address] Laila Caslte CO2 [Moles/Vol] 33.7 mmol/L Critically high 21.0-32.0 [facility] Comment on above: Performed By: #### P OCGLUC #### [facility] [address] [address] [address] Laila Castle Creatinine [Mass/Vol] 0.59 mg/dL Normal 0.55-1.02 [facility] Comment on above: Performed By: #### P OCGLUC #### [facility] [address] [place] [address] Dr. Laila Castle EGFR-AF GAMBIAN >60 Normal >=60 [facility] Comment on above: Performed By: #### P OCGLUC #### [facility] [address] [address] [address] Laila Castle EGFR-NON AF GAMBIAN >60 Normal >=60 [facility] Comment on above: Performed By: #### P OCGLUC #### [facility] [address] [address] [address] Laila Castle Glucose [Mass/Vol] 88 mg/dL Normal 74-106 [facility] Comment on above: Performed By: #### P OCGLUC #### [facility] [address] [address] [address] Laila Castle Potassium [Moles/Vol] 3.8 mmol/L Normal 3.5-5.1 [facility] Comment on above: Performed By: #### P OCGLUC #### [facility] [address] [place] [address] Dr. Laila Castle Sodium [Moles/Vol] 136 mmol/L Normal 136-145 [facility] Comment on above: Performed By: #### P OCGLUC #### [facility] [address] [place] [address] Dr. Laila Castle Urea nitrogen [Mass/Vol] 15.0 mg/dL Normal 7.0-18.0 [facility] Comment on above: Performed By: #### P OCGLUC #### [facility] [address] [place] [address] Dr. Laila Castle Urea nitrogen/Creatinine [Mass ratio] 25.4 mg/mg Normal [facility] Comment on above: Performed By: #### P OCGLUC #### [facility] [address] [place] [address] Dr. Laila Castle URINE MICROSCOPIC ONLYon BACTERIA LARGE Abnormal NONE SEEN [facility] Comment on above: Performed By: #### C MP #### [facility] [address] [place] [address] Dr. Laila Castle Bacteria identified Cx Nom (U) CX ALREADY ORDERED Normal [facility] Comment on above: Performed By: #### C MP #### [facility] [address] [place] [address] Dr. Laila Castle CAST NONE SEEN Normal NONE SEEN [facility] Comment on above: Performed By: #### C MP #### [facility] [address] [place] [address] Dr. Laila Castle Crystals LM Nom (Urine sed) NONE SEEN Normal NONE SEEN [facility] Comment on above: Performed By: #### C MP #### [facility] [address] [place] [address] Dr. Laila Castle Epithelial cells LM Ql (Urine sed) FEW Abnormal NONE SEEN /RARE [facility] Comment on above: Performed By: #### C MP #### [facility] [address] [place] [address] Dr. Laila Castle MUCOUS TRACE Abnormal NONE SEEN [facility] Comment on above: Performed By: #### C MP #### [facility] [address] [place] [address] Dr. Laila Castle RBC 0-2 Normal 0-2 [facility] Comment on above: Performed By: #### C MP #### [facility] [address] [place] [address] Dr. Laila Castle TRICH SEEN Abnormal NONE SEEN [facility] Comment on above: Result Comment: Prev iously reported as: (blank) On 07/20/2021 12:03 By KD3 Performed By: #### C MP #### [facility] [address] [place] [address] Dr. Laila Castle WBC 2-5 Abnormal NONE SEEN [facility] Comment on above: Performed By: #### C MP #### [facility] [address] [place] [address] Dr. Laila Castle BACTERIA TRACE Abnormal NONE SEEN [facility] Comment on above: Performed By: #### C MP #### [facility] [address] [place] [address] Dr. Laila Castle Bacteria identified Cx Nom (U) INDICATED Normal [facility] Comment on above: Performed By: #### C MP #### [facility] [address] [place] [address] Dr. Laila Castle CAST NONE SEEN Normal NONE SEEN [facility] Comment on above: Performed By: #### C MP #### [facility] [address] [place] [address] Dr. Laila Catsle Crystals LM Nom (Urine sed) NONE SEEN Normal NONE SEEN [facility] Comment on above: Performed By: #### C MP #### [facility] [address] [place] [address] Dr. Laila Castle Epithelial cells LM Ql (Urine sed) RARE Normal NONE SEEN /RARE [facility] Comment on above: Performed By: #### C MP #### [facility] [address] [place] [address] Dr. Laila Castle MUCOUS SMALL Abnormal NONE SEEN [facility] Comment on above: Performed By: #### C MP #### [facility] [address] [address] [address] Laila Castle RBC NONE SEEN Abnormal 0-2 [facility] Comment on above: Performed By: #### C MP #### [facility] [address] [address] [address] Laila Castle TRICH SEEN Abnormal NONE SEEN [facility] Comment on above: Performed By: #### C MP #### [facility] [address] [address] [address] Laila Castle WBC 2-5 Abnormal NONE SEEN [facility] Comment on above: Performed By: #### C MP #### [facility] [address] [address] [address] Laila Castle XR LSPINE 2_3 VIEWSon [...] COLLETTE ELIZONDO Date: 2021-07-18 13:41 Normal [facility] Vital Signs Date Time Vital Sign Value Performing Clinician Facility 12-30-2022 10:00-0400 Body height 165.1 cm Moises Jose Other [email or web address] Other 10-27-2022 16:21-0400 SaO2% (BldA) [Mass fraction] 96 % Charanjit Hu MD Work Phone: [facility] 10-27-2022 14:22-0400 Diastolic blood pressure 51 mm[Hg] Charanjit Hu MD Work Phone: [facility] 10-27-2022 14:22-0400 Systolic blood pressure 137 mm[Hg] Charanjit Hu MD Work Phone: [facility] 10-27-2022 12:33-0400 Body temperature 98.01 [degF] Charanjit Hu MD Work Phone: [facility] 10-27-2022 12:33-0400 Heart rate 96 /min Charanjit Hu MD Work Phone: [facility] 10-27-2022 12:33-0400 Respiratory rate 13 /min Charanjit Hu MD Work Phone: [facility] 10-17-2022 06:27-0400 Body temperature 98.1 [degF] Kelsie Wills MD Work Phone: [facility] 10-17-2022 06:27-0400 Diastolic blood pressure 65 mm[Hg] Kelsie Wills MD Work Phone: [facility] 10-17-2022 06:27-0400 Heart rate 92 /min Kelsie Wills MD Work Phone: [facility] 10-17-2022 06:27-0400 Respiratory rate 20 /min Kelsie Wills MD Work Phone: [facility] 10-17-2022 06:27-0400 SaO2% (BldA) [Mass fraction] 96 % Kelsie Wills MD Work Phone: [facility] 10-17-2022 06:27-0400 Systolic blood pressure 137 mm[Hg] Kelsie Wills MD Work Phone: [facility] 10-14-2022 19:00-0400 Body height 162.6 cm Kelsie Wills MD Work Phone: [facility] 10-03-2022 10:20-0400 Body height 165.1 cm Moises Garcia Other [email or web address] Other 10-03-2022 10:20-0400 Body mass index (BMI) [Ratio] 31.61 kg/m2 Moises Garcia Other [email or web address] Other 10-03-2022 10:20-0400 Body weight 86.18 kg Moises Garcia Other [email or web address] Other 10-03-2022 10:20-0400 Diastolic blood pressure 75 mm[Hg] Moises Garcia Other [employer] Other 10-03-2022 10:20-0400 Systolic blood pressure 168 mm[Hg] Moises Garcia Other [employer] Other 09-26-2022 09:57-0400 Inhaled oxygen flow rate 2 L/min DO Bhumika Ball Work Phone: [facility] 09-26-2022 08:12-0400 Body temperature 98.1 [degF] DO Bhumika Ball Work Phone: [facility] 09-26-2022 08:12-0400 Diastolic blood pressure 83 mm[Hg] DO Bhumika Ball Work Phone: [facility] 09-26-2022 08:12-0400 Heart rate 94 /min DO Bhumika Ball Work Phone: [facility] 09-26-2022 08:12-0400 Respiratory rate 18 /min DO Bhumika Ball Work Phone: [facility] 09-26-2022 08:12-0400 SaO2% (BldA) [Mass fraction] 99 % DO Bhumika Ball Work Phone: [facility] 09-26-2022 08:12-0400 Systolic blood pressure 161 mm[Hg] DO Bhumika Ball Work Phone: [facility] 09-25-2022 07:16-0400 Body height 162.56 cm DO Bhumika Ball Work Phone: [facility] 09-21-2022 05:44-0400 Body weight 88.7 kg DO Bhumika Ball Work Phone: [facility] 09-17-2022 15:44-0400 Body temperature 97.9 [degF] DO Bhumika Ball Work Phone: [facility] 09-17-2022 15:44-0400 Diastolic blood pressure 86 mm[Hg] DO Bhumika Ball Work Phone: [facility] 09-17-2022 15:44-0400 Heart rate 102 /min DO Bhumika Ball Work Phone: [facility] 09-17-2022 15:44-0400 Inhaled oxygen flow rate 2 L/min DO Bhumika Ball Work Phone: [facility] 09-17-2022 15:44-0400 SaO2% (BldA) [Mass fraction] 98 % DO Bhumika Ball Work Phone: [facility] 09-17-2022 15:44-0400 Systolic blood pressure 147 mm[Hg] DO Bhumika Ball Work Phone: [facility] 09-17-2022 15:31-0400 Respiratory rate 18 /min DO Bhumika Ball Work Phone: [facility] 09-17-2022 06:00-0400 Body weight 91.3 kg DO Bhumika Ball Work Phone: [facility] 09-15-2022 07:54-0400 Body height 162.56 cm DO Bhumika Ball Work Phone: [facility] 09-15-2022 07:54-0400 Body mass index (BMI) [Ratio] 33.4 kg/m2 DO Bhumika Ball Work Phone: [facility] 09-05-2022 15:15-0400 Diastolic blood pressure 90 mm[Hg] Et3 [facility] 09-05-2022 15:15-0400 Heart rate 114 /min Et3 [facility] 09-05-2022 15:15-0400 SaO2% (BldA) [Mass fraction] 97 % Et3 [facility] Comment on above: 2L SD 09-05-2022 15:15-0400 Systolic blood pressure 141 mm[Hg] Et3 [facility] 08-26-2022 08:45-0400 Body height 165.1 cm Bhumika Ball Other [employer] Other 08-26-2022 08:45-0400 Body mass index (BMI) [Ratio] 33.81 kg/m2 Bhumika Ball Other [employer] Other 08-26-2022 08:45-0400 Body weight 92.17 kg Bhumika Ball Other [employer] Other 08-26-2022 08:45-0400 Diastolic blood pressure 82 mm[Hg] Bhumika Ball Other [employer] Other 08-26-2022 08:45-0400 Respiratory rate 25 /min Bhumika Ball Other [employer] Other 08-26-2022 08:45-0400 Systolic blood pressure 140 mm[Hg] Bhumika Ball Other [employer] Other 07-30-2022 09:45-0400 Body height 165.1 cm Bhumika Ball Other [employer] Other 07-30-2022 09:45-0400 Body mass index (BMI) [Ratio] 33.81 kg/m2 Bhumika Ball Other [employer] Other 07-30-2022 09:45-0400 Body weight 92.17 kg Bhumika Ball Other [employer] Other 07-30-2022 09:45-0400 Diastolic blood pressure 86 mm[Hg] Bhumika Ball Other [employer] Other 07-30-2022 09:45-0400 Respiratory rate 20 /min Bhumika Ball Other [employer] Other 07-30-2022 09:45-0400 Systolic blood pressure 118 mm[Hg] Bhumika Ball Other [employer] Other 07-30-2022 08:45-0400 Body height 165.1 cm Bhumika Ball Other [employer] Other 07-30-2022 08:45-0400 Body mass index (BMI) [Ratio] 33.81 kg/m2 Bhumika Ball Other [employer] Other 07-30-2022 08:45-0400 Body weight 92.17 kg Bhumika Ball Other [employer] Other 07-30-2022 08:45-0400 Diastolic blood pressure 86 mm[Hg] Bhumika Ball Other [employer] Other 07-30-2022 08:45-0400 Respiratory rate 20 /min Bhumika Ball Other [employer] Other 07-30-2022 08:45-0400 Systolic blood pressure 118 mm[Hg] Bhumika Ball Other [employer] Other 04-30-2022 11:30-0500 Body height 165.1 cm Bhumika Ball Other [employer] Other 04-30-2022 11:30-0500 Body mass index (BMI) [Ratio] 32.28 kg/m2 Bhumika Ball Other [employer] Other 04-30-2022 11:30-0500 Body weight 88 kg Bhumika Ball Other [employer] Other 04-30-2022 11:30-0500 Diastolic blood pressure 82 mm[Hg] Bhumika Ball Other [employer] Other 04-30-2022 11:30-0500 Respiratory rate 20 /min Bhumika Ball Other [employer] Other 04-30-2022 11:30-0500 SaO2% (BldA) [Mass fraction] 94 % Bhumika Ball Other [employer] Other 04-30-2022 11:30-0500 Systolic blood pressure 126 mm[Hg] Bhumika Ball Other [employer] Other 08-21-2021 12:19-0400 Body height 162.6 cm Silviano Haro MD [facility] [employer] 08-21-2021 08:01-0400 Body temperature 97.7 [degF] Silviano Haro MD [facility] [employer] 08-21-2021 08:01-0400 Diastolic blood pressure 82 mm[Hg] Silviano Haro MD [facility] [employer] [employer] [facility] [employer] 08-21-2021 08:01-0400 Heart rate 95 /min Silviano Haro MD [facility] [employer] 08-21-2021 08:01-0400 Respiratory rate 29 /min Silviano Haro MD [facility] [employer] 08-21-2021 08:01-0400 SaO2% (BldA) [Mass fraction] 92 % Silviano Haro MD [facility] [employer] [facility] [employer] 08-21-2021 08:01-0400 Systolic blood pressure 151 mm[Hg] Silviano Haro MD [facility] [employer] 08-19-2021 05:48-0400 Body mass index (BMI) [Ratio] 40.3 kg/m2 Silviano Haro MD [facility] [employer] [facility] [employer] 08-19-2021 05:48-0400 Body weight 106.5 kg Silviano Haro MD [facility] 08-14-2021 15:30-0400 Diastolic blood pressure 92 mm[Hg] Dylan Mcdowell MD Work Phone: [facility] 08-14-2021 15:30-0400 Heart rate 126 /min Dylan Mcdowell MD Work Phone: [facility] 08-14-2021 15:30-0400 Respiratory rate 17 /min Dylan Mcdowell MD Work Phone: [facility] 08-14-2021 15:30-0400 SaO2% (BldA) [Mass fraction] 94 % Dylan Mcdowell MD Work Phone: [facility] 08-14-2021 15:30-0400 Systolic blood pressure 123 mm[Hg] Dylan Mcdowell MD Work Phone: [facility] 08-14-2021 13:28-0400 Body temperature 100.9 [degF] Dylan Mcdowell MD Work Phone: [facility] 08-14-2021 07:17-0400 Body height 160 cm Dylan Mcdowell MD Work Phone: [facility] 08-14-2021 07:17-0400 Body mass index (BMI) [Ratio] 37.73 kg/m2 Dylan Mcdowell MD Work Phone: [facility] 08-14-2021 07:17-0400 Body weight 96.62 kg Dylan Mcdowell MD Work Phone: [facility] Encounters Encounter Date Encounter Type Care Provider Facility Start: 03-12-2023 End: 03-12-2023 ambulatory Bhumika Stacy Other [place] [employer] Other Start: 03-12-2023 Sbsq nursing facil care/day new problem 25 min Bhumika Stacy [facility] Start: 02-19-2023 End: 02-19-2023 ambulatory Bhumika Stacy Other [email or web address] Other Start: 02-19-2023 Sbsq nursing facil care/day new problem 25 min Bhumika Stacy [facility] Start: 02-16-2023 End: 02-16-2023 ambulatory Bhumika Stacy Other [email or web address] Other Start: 02-16-2023 Telephone encounter Bhumika Ball [facility] Start: 02-04-2023 End: 02-04-2023 ambulatory Bhumika Godfrey Other [email or web address] Other Start: 02-04-2023 Telephone encounter Bhumika Ball [facility] Start: 01-28-2023 End: 01-28-2023 ambulatory Bhumika Godfrey Other [email or web address] Other Start: 01-28-2023 Telephone encounter Bhumika Ball [facility] Start: 01-23-2023 End: 01-23-2023 ambulatory Bhumika Godfrey Other [email or web address] Other Start: 01-23-2023 Telephone encounter Bhumika Ball [facility] Start: 01-15-2023 End: 01-15-2023 ambulatory Bhumika Ball Other [email or web address] Other Start: 01-15-2023 Telephone encounter Bhumika Ball [facility] Start: 01-12-2023 End: 01-12-2023 ambulatory Bhumika Ball Other [email or web address] Other Start: 01-12-2023 Telephone encounter Bhumika Ball [facility] Start: 01-11-2023 End: 01-11-2023 ambulatory Bhumika Ball Other [email or web address] Other Start: 01-11-2023 Telephone encounter Bhumika Ball [facility] Start: 01-06-2023 End: 01-06-2023 ambulatory Bhumika Ball Other [email or web address] Other Start: 01-06-2023 Telephone encounter Bhumika LACKEY [facility] Start: 01-02-2023 End: 01-02-2023 ambulatory Bhumika Stacy Other [email or web address] Other Start: 01-02-2023 Telephone encounter Bhumika LACKEY [facility] Start: 01-01-2023 End: 01-01-2023 ambulatory Bhumika Stacy Other [email or web address] Other Start: 01-01-2023 Initial nursing faci lity care/day 35 minutes Bhumika Stacy [facility] Start: 12-30-2022 End: 12-30-2022 ambulatory Moises Garcia Other [email or web address] Other Start: 12-30-2022 Office outpatient vi sit 25 minutes Moises Garcia [facility] Start: 12-10-2022 End: 12-10-2022 ambulatory Moises Garcia Other [email or web address] Other Start: 12-10-2022 Telephone encounter Moises Garcia [facility] Start: 11-25-2022 End: 11-26-2022 ambulatory BHUMIKA STACY [facility] Start: 11-25-2022 End: 11-26-2022 ambulatory HECTOR WADE MADISYN Martinez [facility] Start: 11-18-2022 End: 11-19-2022 ambulatory HECTOR LUIS ANGEL [facility] Start: 11-14-2022 End: 11-14-2022 ambulatory Moises Garcia Facility:[facility] Start: 11-14-2022 End: 11-14-2022 ambulatory DO Bhumika Stacy Work Phone: [facility] Work Phone: Start: 11-14-2022 End: 11-14-2022 Patient encounter procedure DO Bhumika Stacy Work Phone: [facility]-X[facility] [place] Work Phone: Start: 10-30-2022 ambulatory Bhumika Stacy DO Facility:[facility] Start: 10-27-2022 End: 10-28-2022 Emergency department patient visit CHARANJIT HU [facility] Start: 10-27-2022 End: 10-27-2022 Emergency department patient visit Charanjit Hu MD Work Phone: [facility] ED Comment on above: Other chronic pain ( Primary Dx); Osteoarthritis of spine, unspecified spinal osteoarthritis complication status, unspecified spinal region Start: 10-13-2022 End: 10-17-2022 Evaluation and management of inpatient NAMRATA KARLI Facility:[facility] Start: 10-13-2022 End: 10-17-2022 Evaluation and management of inpatient Flash Farmer MD Work Phone: [id number] Comment on above: Extremity numbness Start: 10-13-2022 End: 10-13-2022 Emergency department patient visit KOKO J ROBIN [facility] Start: 10-13-2022 End: 10-13-2022 [facility] Start: 10-06-2022 End: 10-07-2022 [facility] Start: 10-03-2022 End: 10-03-2022 Subsequent hospital visit by physician Bhumika Stacy DO Work Phone: [facility] Start: 10-03-2022 End: 10-04-2022 ambulatory [employer] Other Start: 10-03-2022 Postop follow up vis it related to original px Moises Garcia [facility] Start: 10-01-2022 End: 10-02-2022 ambulatory MARY ANN ARELI [facility] Start: 10-01-2022 End: 10-01-2022 Subsequent hospital visit by physician Bhumika Stacy DO Work Phone: [facility] Start: 09-29-2022 End: 09-30-2022 [facility]ulatory [facility] Start: 09-17-2022 End: 09-26-2022 Evaluation and management of inpatient Tom Hill Facility:[facility] Start: 09-17-2022 End: 09-26-2022 Evaluation and management of inpatient DO Bhumika Stacy Work Phone: [facility] Work Phone: Start: 09-15-2022 End: 09-15-2022 ambulatory Bhumika Stacy Other [email or web address] Other Start: 09-15-2022 Telephone encounter Bhumika LACKEY [facility] Start: 09-12-[address] Bhumika Stacy Facility:[facility] Start: 09-11-[address] Bhumika Stacy Facility:[facility] Start: 09-10-2022 End: 09-17-2022 Evaluation and management of inpatient Arnaud Max Facility:[facility] Start: 09-10-2022 End: 09-17-2022 Evaluation and management of inpatient DO Bhumika Stacy Work Phone: [facility] Work Phone: Start: 09-10-2022 End: 09-10-2022 ambulatory Bhumika Stacy Other [email or web address] Other Start: 09-10-2022 Telephone encounter [facility] Start: 09-09-2022 End: 09-09-2022 ambulatory Bhumika Stacy Other [email or web address] Other Start: 09-09-2022 Telephone encounter B[facility]ika [facility] Start: 09-06-2022 End: 09-13-2022 ambulatory UNKNOWN PROVIDER Facility:[facility] Start: 09-05-2022 End: 09-05-2022 ambulatory [facility] T[facility], Treat and Transport Start: 09-05-2022 End: 09-05-2022 [facility] Comment on above: Arrived Start: 08-26-2022 End: 08-26-2022 ambulatory Bhumika Stacy Other [email or web address] Other Start: 08-26-2022 Office outpatient vi sit 25 minutes Bhumika Ball [facility] Start: 08-25-2022 End: 08-25-2022 ambulatory Bhumika Godfrey Other [email or web address] Other Start: 08-25-2022 Telephone encounter Bhumika Ball [facility] Start: 08-22-2022 End: 08-22-2022 ambulatory Bhumika Stacy Other [email or web address] Other Start: 08-22-2022 Telephone encounter Bhumika Ball [facility] Start: 08-07-2022 End: 08-08-2022 ambulatory Boni Paris DO Facility:[facility] Start: 07-30-2022 End: 07-30-2022 ambulatory Bhumika Stacy Other [email or web address] Other Start: 07-30-2022 Office outpatient vi sit 25 minutes Bhumika Ball [facility] Start: 07-10-2022 End: 07-10-2022 ambulatory Bhumika Stacy Other [email or web address] Other Start: 07-10-2022 Telephone encounter Bhumika Stacy [facility] Start: 06-18-2022 End: 06-19-2022 ambulatory Lexie Hassan MASTER MACHINIST-QUALITY CONTROL COORDINATOR Facility:[facility] Start: 05-14-2022 End: 05-14-2022 ambulatory Bhumika Stacy Other [email or web address] Other Start: 05-14-2022 Telephone encounter Bhumika Ball [facility] Start: 05-13-2022 End: 05-13-2022 ambulatory Bhumika Godfrey Other [email or web address] Other Start: 05-13-2022 Telephone encounter Bhumika Ball [facility] Start: 05-10-2022 End: 05-11-[address] BHUMIKA STACY Facility: Start: 05-08-2022 End: 05-09-2022 ambulatory BHUMIKA STACY [facility] Start: 05-08-2022 End: 05-08-2022 Subsequent hospital visit by physician Bhumika Stacy DO Work Phone: [facility] Comment on above: 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); MSSA bacteremia Start: 05-01-2022 End: 05-01-2022 ambulatory Bhumika Stacy Other [email or web address] Other Start: 05-01-2022 Telephone encounter Bhumika LACKEY [facility] Start: 04-30-2022 End: 04-30-2022 ambulatory Bhumika Stacy Other [email or web address] Other Start: 04-30-2022 Office outpatient vi sit 25 minutes Bhumika Stacy [facility] Start: 03-12-2022 Refill Tom Welch MD Work Phone: [facility] Comment on above: Refill Start: 01-21-2022 Refill Tom Welch MD Work Phone: [facility] Comment on above: Refill Start: 01-17-2022 Adult health examination Moises Garcia Other [email or web address] Other Start: 11-10-2021 End: 11-12-2021 Evaluation and management of inpatient DR BHUMIKA STACY Facility:[facility] Start: 11-05-2021 End: 11-05-[address] BHUMIKA STACY Facility:[facility] Start: 10-11-2021 Refill Tom Welch MD Work Phone: [facility] Comment on above: Refill Start: 09-30-2021 ambulatory Jhoan Zarate MD Facility:[facility] Start: 09-26-2021 Refill Tom Welch MD Work Phone: [facility] Comment on above: Refill Start: 09-20-2021 End: 09-20-2021 ambulatory UNKNOWN PROVIDER Facility:[facility] Start: 09-09-2021 End: 09-09-2021 Subsequent hospital visit by physician Bhumika Stacy DO Work Phone: [facility] Start: 09-02-2021 End: 09-02-2021 Subsequent hospital visit by physician Bhumika Stacy DO Work Phone: [facility] Start: 08-26-2021 End: 08-26-2021 Subsequent hospital visit by physician Bhumika Stacy DO Work Phone: [facility] Start: 08-14-2021 End: 08-21-2021 Evaluation and management of inpatient BHUMIKA STACY [facility] Start: 08-14-2021 End: 08-21-2021 Evaluation and management of inpatient Silviano Haro MD [facility] 2 Comment on above: Pyogenic arthritis o f right shoulder region, due to unspecified organism (HCC) (Primary Dx); Acute cystitis without hematuria; MSSA bacteremia; Staphylococcal arthritis of right shoulder (HCC) Start: 08-14-2021 End: 08-14-2021 Emergency department patient visit Dylan Mcdowell MD Work Phone: [facility] ED Comment on above: Pyogenic arthritis o f right shoulder region, due to unspecified organism (HCC) (Primary Dx); SIRS (systemic inflammatory response syndrome) (HCC); Septic shock (HCC) Start: 07-25-2021 Refill Tom Welch MD Work Phone: [facility] Comment on above: Refill Start: [...] Performed By: #### X M #### [facility] ([facility]) [address] [place] [address] Start: 10-14-2022 Blood typing serologic abo Vonnie [...] 10-14-2022 Radiologic exam ches t single view Vonine Alfonso MD Work Phone: Start: 10-03-2022 Blood count complete auto&auto difrntl wbc Mary Ann Johnson MASTER MACHINIST - QUALITY CONTROL COORDINATOR Work Phone: Start: 10-01-2022 Urnls dip stick/tabl et rgnt auto w/o microscopy Mary Annlili Johnson MASTER MACHINIST - QUALITY CONTROL COORDINATOR Work Phone: Start: 10-01-2022 Procalcitonin (pct) David lili Areli Johnson MASTER MACHINIST - QUALITY CONTROL COORDINATOR Work Phone: Start: 09-21-2022 X-ray of cervical spine DO Bhumika Ball Work Phone: Start: 09-15-2022 Decompression of cer vical spine DO Bhumika Ball Work Phone: Start: 09-15-2022 X-ray of cervical spine DO Bhumika Ball Work Phone: Start: 09-12-2022 Antibody screen [place] Comment on above: Result Comment: PERF ORMED BY: [facility] [address] [place] [address] PATHOLOGIST WEB OPERATIONS ADMINISTRATOR PETER RAYO M.D. Start: 09-11-2022 Plain chest [...] subq port age 4 yr/> Tita Hilariowilmer MASTER MACHINIST - QUALITY CONTROL COORDINATOR Work Phone: Start: 08-21-2021 Nursing procedure Bud bhavana Lucas Juan MASTER MACHINIST - QUALITY CONTROL COORDINATOR Work Phone: Start: 08-21-2021 Assay of magnesium [...] bacterial quanttative colony count urine Tita Martinez MASTER MACHINIST - QUALITY CONTROL COORDINATOR Work Phone: Start: 08-16-2021 Drug screen quantita [...] Cholesterol [Mass/volume] in Serum or Plasma Cholesterol [facility] Start: 11-06-2022 End: 11-06-2022 Patient encounter procedure 11/06/2022 Office Visit Infectious Diseases Eulogio Manzo MD [address] [place] [address] [facility] Start: 10-21-2022 Influenza vaccination Flu vaccine (# 1) [facility] Start: 10-14-2022 End: 10-14-[address] [facility] Start: 09-26-2022 [facility] Start: 09-21-2022 Arrangement of care procedure [facility] Start: 09-18-2022 Consultation [facility] Start: 09-17-2022 [facility] Start: 09-17-2022 Hospital admission [facility] Start: 09-17-2022 Referral to clinical learning center instructor [facility] Start: 09-17-2022 [facility] Start: 09-17-2022 [facility] Start: 09-15-2022 Hospital admission [facility] Start: 09-11-2022 Consultation [facility] Start: 09-10-2022 Consultation [facility] Start: 09-10-2022 Hospital admission [facility] Start: 09-10-2022 Fusion of Cervical Vertebral Joint with Nonautologous Tissue Substitute, Posterior Approach, Posterior Column, Percutaneous Approach Fusion of Cervical Vertebral Joint with Nonautologous Tissue Substitute, Posterior Approach, Posterior Column, Percutaneous Approach [facility] Start: 09-10-2022 Introduction of Recombinant Bone Morphogenetic Protein into Joints, Open Approach Introduction of Recombinant Bone Morphogenetic Protein into Joints, Open Approach [facility] Start: 09-10-2022 Reposition Cervical Vertebral Joint, External Approach Reposition Cervical Vertebral Joint, External Approach [facility] Start: 05-23-2022 End: 05-23-2022 Patient encounter procedure 05/23/2022 Office Visit Rheumatology Tom Welch MD [address] [place] [id number] [facility] Start: 05-07-2022 Annual Wellness Visi t (AWV) Annual Wellness Visit (AWV) [facility] Start: 02-12-2022 End: 02-12-2022 Patient encounter procedure 02/12/2022 Office Visit Rheumatology Tom Welch MD [address] [place] [address] [facility] Start: 12-21-2021 Influenza vaccination Influenza Vacc ine (#1) [facility] Start: 11-21-2021 Influenza vaccination Flu vacc ine (Season Ended) [facility] Start: 10-21-2021 [facility] Start: 10-10-2021 End: 10-10-2021 Patient encounter procedure 10/10/2021 Office Visit Infectious Diseases Eulogio Manzo MD [address] [place] [address] [facility] Start: 09-20-2021 Welcome to Medicare Visit (G0402) Welcome to Medicare Visit (G0402) [facility] Start: 09-03-2021 End: 09-03-2021 Patient encounter procedure 09/03/2021 Office Visit Infectious Diseases Eulogio Manzo MD [address] [place] [address] [facility] Start: 07-25-2019 Pneumococcal 65+ yea rs Vaccine (1 - PCV) Pneumococcal 65+ years Vaccine (1 - PCV) [facility] Start: 07-25-2019 Screening for osteoporosis Bone Densitometry [facility] Start: 2009 Screening for osteoporosis DEXA (modify frequency per FRAX score) [facility] Start: 2004 Measurement of occul t blood in single stool specimen FIT [facility] Start: 2004 Screening for malign ant neoplasm of breast [facility] Start: 2004 Screening for malign ant neoplasm of colon CRC Screening [facility] Start: 2004 Shingles vaccine (1 of 2) Shingles vaccine (1 of 2) [facility] Start: 07-25-1999 Cholesterol [Mass/volume] in Serum or Plasma Cholesterol [facility] Start: 07-25-1999 Screening for malign ant neoplasm of colon [facility] Start: 1994 Lipid panel Lipids [facility] [employer] Start: 1994 Screening for malign ant neoplasm of breast Mammography [facility] Start: 1989 Diabetes screen Diabetes screen [facility] Start: 1973 DTaP/Tdap/Td vaccine (1 - Tdap) DTaP/Tdap/Td vaccine (1 - Tdap) [facility] Start: 1973 Shingles (RZV) Vacci ne (1 of 2) Shingles (RZV) Vaccine (1 of 2) [facility] Start: 1972 Hepatitis C screening Hepatitis C sc reen [facility] Start: 1972 Tetanus + diphtheria + acellular pertussis vaccine (product) Tdap [employer] [facility] Start: 1966 COVID-19 Vaccine (1) COVID-19 Vaccin e (1) [facility] Start: 1966 Depression Screen Depression Screen [facility] [employer] [facility] Start: 1960 Pneumococcal vaccination Pneumococcal Vaccine(s) (65+ yrs) (1 - PCV) [facility] Start: 07-25-1959 COVID-19 Vaccine (#1) COVID-19 Vacci ne (#1) [facility] Start: 07-25-1959 COVID-19 Vaccine (1) COVID-19 Vaccin e (1) [employer] Start: 01-24-1955 COVID-19 Vaccine (#1) COVID-19 Vacci ne (#1) [facility] Start: 1955 Annual Wellness Visi t (AWV) Annual Wellness Visit (AWV) [employer] Start: 1955 Screening for malign ant neoplasm of colon Colonoscopy [facility] End: 10-13-2022 Bacteria identified in Blood by Culture [facility] Comment on above: One Time for 1 Occur rences starting 10/13/2022 until 10/13/2022 Basic Metabolic Pane l w/ Reflex to MG Basic Metabolic Panel w/ Reflex to MG Lab Routine Daily until discontinued starting 08/15/2021, 7 completed [facility] Phone: Comment on above: Daily until disconti nued starting 08/15/2021, 7 completed C-reactive protein C-Reactive Pr otein Lab Add-On Q48H until discontinued starting 08/18/2021, 2 completed [facility] Phone: Comment on above: Q48H until discontin ued starting 08/18/2021, 2 completed CBC W Auto Different ial panel - Blood CBC with Auto Differential Lab Routine Daily until discontinued starting 08/15/2021, 7 completed [facility] Phone: Comment on above: Daily until disconti nued starting 08/15/2021, 7 completed CTA CHEST ABDOMEN PELVIS W CONTRAST CTA CHEST ABDOMEN PELVIS W CONTRAST Imaging STAT 08/14/2021 10:22 AM EDT [facility] Phone: Culture, Anaerobic a nd Aerobic Culture, Anaerobic and Aerobic Microbiology Routine 08/17/2021 11:17 AM EDT [facility] Phone: End: 08-14-2021 Culture, Blood 1 [facility] Phone: Comment on above: One Time for 1 Occur rences starting 08/14/2021 until 08/14/2021 End: 10-01-2022 Culture, Blood 1 [employer] Comment on above: Once for 1 Occurrenc es starting 10/01/2022 until 10/01/2022 Culture, Fungus Culture, Fungus Microbiology Routine Pyogenic arthritis of right shoulder region, due to unspecified organism (HCC) 08/16/2021 9:03 PM EDT [employer] Work Phone: End: 10-01-2022 Culture, Urine [employer] Work Phone: Comment on above: Once for 1 Occurrenc es starting 10/01/2022 until 10/01/2022 Oxygen therapy [[facility] [place] Initiate Oxygen Therapy Protocol Respiratory Care Routine As Needed until discontinued starting 08/14/2021 [employer] Work Phone: Comment on above: As Needed until disc ontinued starting 08/14/2021 Patient referral [facility] Work Phone: Platelets [#/volume] in Blood PLATELET COUNT Lab Routine Every 3 days in the AM Lab until discontinued starting 10/15/2022 [facility] Comment on above: Every 3 days in the AM Lab until discontinued starting 10/15/2022 End: 08-14-2021 PREVIOUS SPECIMEN [employer] Comment on above: Once for 1 Occurrenc es starting 08/14/2021 until 08/14/2021 End: 10-13-2022 SEDIMENTATION RATE, AUTOMATED SEDIMENTATION RATE, AUTOMATED Lab Urgent One Time for 1 Occurrences starting 10/13/2022 until 10/13/2022 [facility] Work Phone: Comment on above: One Time for 1 Occur rences starting 10/13/2022 until 10/13/2022 Standard ECG ECG ECG STAT Needed until discontinued starting 10/14/2022 [facility] Comment on above: Needed until disc ontinued starting 10/14/2022 Immunizations Immunization Date Immunization Notes Care Provider Jorge guzman 10-17-2021 Prevnar 20 Moises Garcia Other [email or web address] Other pneumococcal Conjuga te, unspecified formulation; Translations: [Need for prophylactic vaccination against Streptococcus pneumoniae (pneumococcus)] Moises Garcia Other [email or web address] Other Payers Date Payer Category Payer Unknown [id number] 2022 Self-pay 2021 Medicare [id number] 2021 Medicaid [id number] 1. [id number] 2020 Unknown [id number]. 1.13.56.2.7.3.618292.315 2020 Unknown OOC 2020 Unknown 1 1959 Medicare [id number] 1.2 .840.938148.1.13.239.2.7.3.673497.315 1959 Self-pay [id number] 1954 Unknown [id number] 2.16. 840.1.206413.3.579.2.175 1954 Unknown [id number] 2.16. 840.1.097300.3.579.2.175 1954 Unknown [id number] 2.16.84 0.1.472445.3.579.2.593 1954 Unknown [id number] 2.16.84 0.1.507572.3.579.2.593 1954 Unknown [id number] 2.16.84 0.1.594104.3.579.2.593 1954 Unknown [id number] 2.16.84 0.1.771416.3.579.2.593 1954 Unknown [id number] 2.16.84 0.1.032575.3.579.2.593 1954 Unknown [id number] 2.16.84 0.1.762843.3.579.2.593 1954 Unknown [id number] 2.16.84 0.1.426964.3.579.2.593 1954 Unknown [id number] 2.16.84 0.1.672222.3.579.2.593 1954 Unknown [id number] 2.16. 840.1.938185.3.579.2.732 1954 Unknown [id number] 2.16. 840.1.429285.3.579.2.732 1954 Unknown [id number] 2.16. 840.1.013040.3.579.2.356 1954 Unknown [id number] 2.16. 840.1.098756.3.579.2.196 1954 Unknown [id number] 2.16. 840.1.819649.3.579.2.196 1954 Unknown [id number] 2.16. 840.1.729800.3.579.2.196 1954 Unknown [id number] 2.16. 840.1.304622.3.579.2.196 1954 Unknown [id number] 2.16. 840.1.057750.3.579.2.594 1954 Unknown [id number] 2.16.8 40.1.555567.3.579.2.173 1954 Unknown [id number] 2.16.8 40.1.355568.3.579.2.173 1954 Unknown [id number] 2.16.8 40.1.331482.3.579.2.173 1954 Unknown [id number] 2.16.8 40.1.181271.3.579.2.173 1954 Unknown [id number] 2.16.8 40.1.083429.3.579.2.173 1954 Unknown [id number] 2.16.8 40.1.283403.3.579.2.173 1954 Unknown [id number] 2.16.8 40.1.101648.3.579.2.173 1954 Unknown [id number] 2.16.8 40.1.987790.3.579.2.173 1954 Unknown [id number] 2.16.8 40.1.750662.3.579.2.173 1954 Unknown [id number] 2.16.8 40.1.996219.3.579.2.173 Unknown [id number] 2.16.8 40.1.024946.3.579.2.531 Unknown [id number] 2.16.8 40.1.632363.3.579.2.531 Unknown [id number] 2.16.8 40.1.630536.3.579.2.531 Social History Date Type Detail Facility Tobacco smoking stat [facility] Tobacco smoking consumption unknown [facility] Start: 1955 Sex Assigned At Female [facility] Start: 1955 Sex Assigned At Not on file [facility] Phone: Start: 08-04-2021 End: 10-13-2022 Exposure to SARS-CoV-2 (event) Not sure [facility] Phone: Start: 09-03-2021 End: 09-18-2022 Tobacco smoking status WIIS Ex-smoker [employer] End: 09-03-2013 History of tobacco use Current smoker [facility] Phone: Start: 09-03-2021 End: 02-06-2022 Cigarettes smoked current (pack per day) - Reported 1 [facility] Phone: Start: 09-03-2021 End: 02-06-2022 Tobacco use and exposure Smokeless tobacco non-user [facility] Phone: End: 09-03-2013 History of tobacco use Cigarette Smoker [facility] Phone: Start: 10-13-2022 Sex Assigned At [facility] [employer] [facility] Other Start: 09-25-2020 Gender identity Identifies as female gender (finding) [facility] Start: 10-13-2022 Alcohol intake Ex-drinker (finding) [facility] Medical Equipment Procedure Code Equipment Code Equipment Origin al Text Equipment Identifier Dates Decompression, spine, cervical, posterior approach CANCELLOUS 7.5 CRUSHED FDA Start: 09-15-2022 Decompression, spine, cervical, posterior approach Spinal fusion graft kit [id number] FDA Start: 09-15-2022 Decompression, spine, cervical, posterior approach Intervertebral-body internal spinal fixation system [id number] FDA Start: 09-15-2022 Decompression, spine, cervical, posterior approach Internal spinal fixation system cable, sterile ()[id number] FDA Start: 09-15-2022 Decompression, spine, cervical, posterior approach CANCELLOUS 7.5 CRUSHED FDA Start: 09-15-2022 Goals Date Patient Goal Desired Activity /State Functional Status Date Assessment Result Facility 09-26-2022 Functional status Patient is Pro gressing Toward Baseline [facility] Work Phone: 09-17-2022 Functional status Patient at Baseline [facility] Work Phone: 09-10-2022 Functional status Patient Not at Baseline [facility] Work Phone: Mental Status Date Assessment Result Facility 09-26-2022 Cognitive function Cognitive Sta tus Patient at Baseline [facility] Work Phone: 09-17-2022 Cognitive function Cognitive Sta tus Patient at Baseline [facility] Work Phone: 09-10-2022 Cognitive function Cognitive Sta s Patient at Baseline [facility] Work Phone: Clinical Notes 07-14-2021 to [...] referred to Neurology, who had referred to [facility] Neurosurgery Feb, Paresthesias (ICD-10 - R20.2) Secondary to cervical rx? 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 Slow wean once Rheum has initiated therapy [email or web address] Other [id number] Evaluation note* Encounter Date Diagnosis Assessment Notes [...] wean steroids, which increase risk of infection [email or web address] Other 11-08-2023 Evaluation note* Encounter Date Diagnosis Assessment Notes Treatment Notes Treatment Clinical Notes Jan, Lumbar spondylosis (ICD-10 - M47.816) [email or web address] Other 10-12-2023 Evaluation note* Encounter Date Diagnosis [...] in remission (ICD-10 - F17.211) Maintain abstinence [email or web address] Other 10-10-2023 Evaluation note* Encounter Date Diagnosis [...] M19.011) Dec, Physical deconditioning (ICD-10 - R53.81) [email or web address] Other 08-07-2023 Hospital Discharge instructions* Discharge Instructions* [...] sent through Care Everywhere. * Chronic Pain (Macedonian) [facility] course Narrative* Namrata Powell DO - 10/17/2022 11:27 AM EDT Hospital Medicine Discharge Summary Patient: Miriam German DOB: 1955, Date of face to face patient encounter: 10/17/2022 Admission Details Admit Date 10/13/2022 Discharge Date 10/17/2022 Inpatient Days 3 Summary of Hospitalization Dear Doctors, I recently had the opportunity to care for Miriam German during her recent hospital stay at [facility]. As you may know, Miriam German is [...] Skilled therapy is anticipated upon discharge to Long-Term Facility There is no height or weight on file to calculate BMI. Upon discharge the patient's code was [id number] Please see the remainder of this document for relevant data from this admission as well as the patient's discharge instructions and follow-up appointments. An electronic copy of the patient's recordscan be obtained via [facility] at [email or web address] It has been my pleasure participating [...] erythema Skin: No jaundice or rash Neuro: pedigree tracer 3-7, 9-11 intact and equal. Strength grossly [...] future appointments. Bhumika Stacy DO [address] [facility] [address] Follow up Please call to schedule an appointment with your, PCP within 7-10 days. Long-Term Facility [place] [address] [place] [address] Fax: [phone] Follow up [facility] [address] [address] Follow up - Please have [...] Commonly known as: ULTRAM [facility] Miscellaneous Notes* Plan of Care - [...] be discharge to home. [facility] Plan of care note* Plan of [...] reluctance/inability to perform verbalization of pain descriptors [facility] History of Present illness Narrative* Ranjana [...] Psych: Ox3, appropriate affect and cognition Neuro: pedigree tracer 3-7, 9-11 intact and equal. decreased motor [...] OT clinical judgment, discharge destination recommendation is: Long-Term Facility Barriers to discharge home: Patient needs [...] and Edema: Mobility Assessment/Intervention: Scooting Bridging Mobility Dupage Level: Scooting/Bridging: maximum assist (25% patient effort) Physical Assist: Scooting/Bridgin person assist Bed Features/Set-up: Scooting/Bridging: Other, see comments (pt up in chair upon arrival, assist for optimal positioning in chair) Skilled Rationale: Positioning Skilled Intervention/Details: Scooting/Bridging: facilitated optimal positioning in chair utilizingchair features Transfer Assessment/Intervention: Functional Mobility: Outcome Score(s): CURRENT [facility] Daily Activity Inpatient Short Form Putting on/Taking Off Lower Body Clothin - Total Assistance Bathin - Total Assistance Toiletin - Total Assistance Putting on/Taking Off Upper Body Clothin - Total Assistance Groomin - A Lot of Assistance Eatin - A Lot of Assistance CURRENT [facility] Activity Raw Score: 8 CURRENT [facility] Activity Functional Limitation/Modifier: 85.69% Currently Impaired [...] Guerrero OTR/L License # [id number] Pager: [phone] Upon discontinuation of Acute Care Occupational Therapy Services or patient discharge from the hospital this note represents the current Occupational Therapy Discharge Summary. * Cydney Wilder - 10/16/2022 9:38 AM EDT 10/16/22 0937 Transport Request Mode of Transfer BLS Name of Discharge Transport Company [facility] (trip #[id number]) Discharge Transport ETA 10/17 at 10a Scheduled per CM. Cancelled [facility] on 10/20. Cydney Hicks Case Management Database Reporting Consultant * RADHA Ayala - 10/15/2022 5:37 PM EDT Placement Plan Expected Discharge Date: 10/20/22 Referred Level of Care: SNF Barriers: Transport Current Referrals and Status 1. [facility] by [facility] to schedule ambulance transport to SNF. SW scheduled the earliest available trip for 1000 on Thursday, 10/20 via [employer]. SW updated CCM and bedside RN. will contact additional ambulance providers in an attempt to find an earlier time. RON Villar, [employer] Medical Social Work * Leyla Womack RN - 10/15/2022 4:07 PM EDT Discharge Planning Patient Assessment Admission Assessment Patient Assessment Completed: Focused Anticipated discharge disposition: Long-Term Facility Reason for Admission: Back pain, deconditioning Is the patient able to participate in the assessment?: Yes Information source: Patient Information Source Name/Contact: Miriam German- [phone] Demographics Verified and Updated: Yes Has the [...] Yes Name and Contact information: Branden Lucero- [phone] Would you like to add additional adult children?: Yes Name and Contact information: Geremias Azeem- [phone] Reviewed and Updated in Demographics? : Yes Outpatient Providers Does patient have a primary care physician? : Yes When was the patient's last PCP visit?: > 30 days Does the patient follow any specialists?: Yes Reviewed and updated Care Team?: Yes Patient Care Team: Bhumika Stacy, DO as PCP - General (Internal Medicine) Environment/Caregivers Is the patient from a facility or jail?: Yes Facility Level of Care: Skilled Name [...] the patient on Anticoagulation? : No [id number] [place] [address] - [address] [place] [address] AT [place] [address] Coping/Stress Concerns about patient s coping and stress?: No Initial Discharge Planning Anticipated discharge disposition: Long-Term Facility Transportation Available for Discharge: Ambulance Anticipated DME: none Patient Assessment Completed: Focused Risk of Readmission: 4.8 Category Reference: High:16-100 Mod-High:10-16 Mod-Low: 5-10 Low: 0-5 Expected Discharge Date: Readmission Summary and Discharge Planning Narrative Anticipate this patient will dc to SNF. requested referral to [facility]. Referral sent. No other plans for surgical intervention . Case Management Plan 1.Contact information shared and role of clinical correctional casework specialist explained while admitted to [facility] 2.PCP/Specialist/pharmacy information updated 3. Patient demographic/address/emergency contact information verified 4.store loss prevention manager will continue to follow with medical team to coordinate discharge planning and arrange necessary follow up. 5. No immediate needs or concerns to be addressed at this time. Leyla SALDANA RN Clinical Lithograph [employer] [phone] Available on secure chat. * Aren Rico [...] Psych: Ox3, appropriate affect and cognition Neuro: pedigree tracer 3-7, 9-11 intact and equal. decreased motor strength in upper and lower ext Data Review * Julia Guerrero, OT - 10/15/2022 7:26 AM EDT Acute Occupational Therapy Evaluation Prior to Admission AM-PAC Score: PRIOR LEVEL AM-PAC Activity Raw Score: 24 Current AM-PAC score(s): CURRENT AM-PAC Activity Raw Score: 7 Based on the above AM-PAC score(s) and OT clinical judgment, discharge destination recommendation is: Long-Term Facility Barriers to discharge home: Patient needs [...] SNF. IADL History IADLs: independent Primary Language: Macedonian Home Management Skills: independent Medication Management: independent [...] noted Mobility Assessment: Supine to Sit Mobility Dupage Level: Supine->Sit: maximum assist (25% patient effort) Physical Assist: Supine->Sit: 2 person assist Bed Features/Set-up: Supine->Sit: Head of bed elevated Skilled Rationale: Hand placement, Technique of activity, Cues for increased safety Skilled Intervention/Details: Supine->Sit: required facilitation for bilat LE and trunk elevation Sit to Supine Mobility Dupage Level: Sit->Supine: maximum assist (25% patient effort) Physical Assist: Sit->Supine: 2 person assist Bed Features/Set-up: Sit->Supine: Flat Skilled Rationale: Positioning, Verbal cues, Technique of activity Skilled Intervention/Details: Sit->Supine: required assist to guide trunk and elevate bilat LE to bed Outcome Score(s): CURRENT [facility] Daily Activity Inpatient Short Form Putting on/Taking Off Lower Body Clothin - Total Assistance Bathin - Total Assistance Toiletin - Total Assistance Putting on/Taking Off Upper Body Clothin - Total Assistance Groomin - Total Assistance Eatin - A Lot of Assistance CURRENT [facility] Activity Raw Score: 7 CURRENT [facility] Activity Functional Limitation/Modifier: 92.44% Currently Impaired [...] Acute Physical Therapy Evaluation Prior to Admission [facility] score(s): PRIOR LEVEL AM-PAC Mobility Raw Score: 24 Current AM-PAC score(s): CURRENT AM-PAC Mobility Raw Score: 7 Based on the above AM-PAC score(s) and PT clinical judgment, patient is a good candidate for discharge to Long-Term Facility return Barriers to discharge home: Patient [...] given Mobility Assessment: Supine to Sit Mobility Dupage Level: Supine->Sit: maximum assist (25% patient effort) Physical Assist: Supine->Sit: 2 person assist Bed Features/Set-up: Supine->Sit: Head of bed elevated Skilled Rationale: Hand placement, Technique of activity, Cues for increased safety Skilled Intervention/Details: Supine->Sit: required facilitation for bilat LE and trunk elevation Sit to Supine Mobility Dupage Level: Sit->Supine: maximum assist (25% patient effort) [...] assist for eating yogurt Outcome Score(s): CURRENT [facility] Basic Mobility Inpatient Short Form Turning over in bed: 2 - A Lot of Assistance Sitting/standing from chair: 1 - Total Assistance Moving from lying on back to sittin - Total Assistance Moving to and from bed to chair: 1 - Total Assistance Walk in hospital room: 1 - Total Assistance Climbing 3-5 steps with a railin - Total Assistance CURRENT [facility] Mobility Raw Score: 7 CURRENT [facility] Mobility Functional Limitation/Modifier: 92.36% Currently Impaired [...] Therapy Discharge Summary. documented in this encounterU [facility] Plan of care note* Plan of Care [...] outcomes by discharge/transition of care. Outcome: Ongoing [facility]07-27-2023 Plan of care note* Plan of Care - Cassandra Neely RN - 10/16/2022 5:12 PM EDT Problem: Patient Care Overview Goal: Plan of Care Review Outcome: Ongoing [facility]07-27-2023 Plan of care note* Plan of [...] UE ROM/coordination/strength for ADL participation. Outcome: Ongoing [facility]07-27-2023 Plan of care note* Plan of [...] 10/16/2022 140 by ALVARADO Olivares Outcome: Ongoing [facility]07-26-2023 Plan of care note* Plan of [...] Ongoing Goal: Interdisciplinary Rounds/Family Conf Outcome: Ongoing [facility]07-26-2023 Plan of care note* Plan of [...] of care. Outcome: Met This Shift [facility]07-26-[facility]23 Hospital Discharge instructions* Discharge Instructions* Kareen Barcenas RN - 10/15/2022 12:03 PM EDT Patient Experience Survey Reminder You may receive a survey in the mail within a few weeks regarding your hospitalization. This helps us to improve the care and services we provide at [facility]. We truly appreciate you taking the time to fill this out. We particularly welcome any specific comments you may have (good or bad!) regarding your experienceat [facility] so that we may use them to continue to strive towards excellence for our patients. * Attachments The following attachments cannot be sent through Care Everywhere. * Pain and Pain Control ([facility]) (Macedonian) documented in this encounterOS[facility] Plan of care note* Plan of Care [...] questions. Josesito Martin MD, Neurosurgery NS3 ([phone]) [facility] Work Phone: 1(493) 332-323207-26-2023 Plan of care note* Plan of Care [...] UE ROM/coordination/strength for ADL participation. Outcome: Ongoing [facility]07-26-2023 Plan of care note* Plan of [...] ROM, necessary for functional mobility. Outcome: Ongoing [facility]07-25-2023 Nurse procedure note* Significant Event - [...] put this code status in the chart. [facility] Work Phone: 1(597) 329-784307-25-2023 History and physical note* Kelsie Wills MD - 10/14/2022 1:16 PM EDT Hospital Medicine Admission History & Physical Patient: Miriam German, 1955, [id number] Physician: Kelsie Wills MD, Attending Physician, Pager #[phone], med 2 service Date of face to [...] female that has been admitted to [facility]. This is a 67-year-old female past [...] erythema: Skin: No jaundice or rash Neuro: pedigree tracer 3-7, 9-11 intact and equal. Strength grossly [...] performed during the hospital encounter of 10/13/22 [facility] 7 - ED Result Value Ref [...] 0.40 (L) 1.16 - 3.51 K/uL Abs [place] Auto 0.09 (L) 0.22 - 0.87 K/uL [...] Negative Negative Ketones Urine Negative Negative Specific [place] Urine 1.010 1.001 - 1.035 Blood Urine [...] ABSENT ECG none Signed, Kelsie Wills MD [facility]07-25-2023 History and physical note* Kelsie Wills MD - 10/14/2022 1:16 PM EDT Hospital Medicine Admission History & Physical Patient: Miriam German, 1955, [id number] Physician: Kelsie Wills MD, Attending Physician, Pager #[phone], med 2 service Date of face to [...] female that has been admitted to [facility]. This is a 67-year-old female past [...] erythema: Skin: No jaundice or rash Neuro: pedigree tracer 3-7, 9-11 intact and equal. Strength grossly [...] performed during the hospital encounter of 10/13/22 [facility] 7 - ED Result Value Ref [...] 0.40 (L) 1.16 - 3.51 K/uL Abs [place] Auto 0.09 (L) 0.22 - 0.87 K/uL [...] Negative Negative Ketones Urine Negative Negative Specific [place] Urine 1.010 1.001 - 1.035 Blood Urine [...] Kelsie Wills MD documented in this encounterU [facility] Progress note* Certification - Kelsie Wills MD - 10/14/2022 1:10 PM EDT I certify that this patient requires inpatient services at this time. I anticipate the expected length of stay will include at least two midnights. Inpatient services are due to the following medicalconcerns extermity numbness . Plans for post hospitalization care will be discharge to home. [facility]07-25-2023 Emergency department Note* Loni Clark RN - 10/14/2022 10:06 AM EDT Pt screaming out to staff that she would like to leave. MD Dominguez aware. Pt was informed the team would like to admit her to provide PT and OT in hopes of restoring pts mobility. Pt angry and demanding to speak to a real doctor . [facility]07-25-2023 Emergency department Note* Loni Clark RN [...] extremity weakness in the setting of recent [id number] at an outside hospital. MRI did show [...] edema and fluid collection. MRI obtained from [facility] and reads reviewed. Concern for [...] WITHOUT CONTRAST XR SPINE CERVICAL 4 VIEWS [facility] 7 - ED CBC, EDIF, PLATELET [...] making process. This note was dictated using [email or web address] Dictation [employer]. Attempts at proofreading have been made, however errors may still occasionally occur. Monalisa Suarez MD Resident 10/13/22 9698 * Linnea Caro RN - 10/13/2022 9:40 PM EDT Bed: E041 Expected date: 10/13/22 Expected time: 12:00 AM Means of arrival: Comments: OSB * Willow Lindquist RN - 10/13/2022 9:30 PM EDT Transfer Center Intake Note [phone] Triage Line [phone] Bed Placement REMINDER to TC mosaic floor layer: please request facesheet, images, and discharge summary if inpatient. Pt Current Location/ Level of care: ED If Inpatient transfer, Date of admission to OSH: N/A Clinical reason for transfer: Need for neurosurg eval HPI: 1 mo ago C-2 ([facility]) surgery, spine fusion. Tingling, numbness bilat hands. Progressive numbness/tingling to LE. Follow up and parted ways per family. Nonambulatory since surgery. Unable to lift legs off bed or feed self. [facility] refused pt. [facility] spoke with collegue. States since pt does not want to follow with Dr. 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 Normal WBC IV drips: Decadron, Tylenol Respiratory Support device: NC settings: 2 L Other equipment: Piping Blocker Isolation None and ADA needs: bed bound Triaged to: TBD If PCU, please describe reason: Evelyn Quinonez RN documented [facility] Emergency department Note* Ameena Johnson MD [...] extremity weakness in the setting of recent [id number] at an outside hospital. MRI did show edema around the cord and did receive Decadron. Patient was [facility] to [facility] for higher level care. Patient evaluated by Neurosurgery who recommended admission to Medicine and conservative treatment at this time and no evidence of acute operative emergency at this time. The expected disposition is: Admit to med Ameena Johnson MD Resident 10/14/22 1216 [facility] Work Phone: [phone] Emergency department Note* Loni Clark RN - 10/14/2022 9:41 AM EDT Unable to obtain blood specimen at this time. PIV's do not draw back, straight sticks also unsuccessful. [facility]07-25-2023 Consult note* Vonnie Alfonso MD - [...] fx s/p C1-2 fusion w/ cerclage at [facility] in [place] on 09/15/22, which was unfortunately complicated by [...] fx s/p C1-2 fusion w/ cerclage at [facility] in [place] on 09/15/22, which was unfortunately complicated by [...] please page covering pager above ## [facility] Work Phone: 1([phone]) [phone] Consult note* Vonnie Alfonso MD - 10/14/2022 [...] fx s/p C1-2 fusion w/ cerclage at [facility] in [place] on 09/15/22, which was unfortunately complicated by [...] fx s/p C1-2 fusion w/ cerclage at [facility] on 09/15/22, which was unfortunately complicated [...] covering pager above ## [facility] Emergency department Note* Flash Farmer [...] MD ED Attending Physician Flash Farmer MD 10/13/229 [facility] Work Phone: [phone] Emergency department Note* Willow Lindquist RN - 10/13/2022 9:54 PM EDT Pt arrives from OSH via medics for numbness/tingling, and weakness to all 4 extremities after having surgery to neck 4 weeks ago. Pt reports pain to extremities when touched. Pt alert and oriented and in NAD at this time. Dr. Suarez at bedside at this time. [facility]2023 Physician Emergency department Note* Monalisa Suarez [...] making process. This note was dictated using [email or web address]. Attempts at proofreading have been made, however errors may still occasionally occur. Monalisa Suarez MD Resident 10/13/223 [facility] Work Phone: 1([phone]) 508-483407-24-2023 Emergency department Note* Linnea Caro RN - 10/13/2022 9:40 PM EDT Bed: E041 Expected date: 10/13/22 Expected time: 12:00 AM Means of arrival: Comments[facility]* Willow Lindquist RN - 10/13/2022 9:30 PM EDT Transfer Center Intake Note [phone] Triage Line [phone] Bed Placement REMINDER to TC mosaic floor layer: please request facesheet, images, and discharge summary if inpatient. Pt Current Location/ Level of care: ED If Inpatient transfer, Date of admission to OSH: N/A Clinical reason for transfer: Need for neurosurg eval HPI: 1 mo ago C-2 ([facility]) surgery, spine fusion. Tingling, numbness bilat hands. Progressive numbness/tingling to LE. Follow up and parted ways per family. Nonambulatory since surgery. Unable to lift legs off bed or feed self. [facility] pt. [facility] spoke with gris. States since pt does not want to follow with Dr. 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 Normal WBC IV drips: Decadron, Tylenol Respiratory Support device: NC settings: 2 L Other equipment: Piping Blocker Isolation None and ADA needs: bed bound Triaged to: TBD If PCU, please describe reason: Evelyn Quinonez, RN [facility]07-14-2023 Evaluation note* Encounter Date Diagnosis Assessment Notes [...] was passed on to the nursing team. [email or web address] Other 07-06-2023 Progress note Author Tom Hill [facility] September 26, 2022 11:45am Note Date/Time September 25, 2022 12:45 pm [facility] [address] [place] [address] Physiatry(Rehab) Progress Note Signed Patient: Miriam German MR#: [id number] : 1955 Acct:[id number] Age/Sex: 67 / F Adm Date: 3 Loc: Room: [address] [place] [address] Type: ADM IN Attending Dr: Tom Hill [...] fracture and operative fixation. She presented to [facility] 2 weeks ago, 09/05 with increased falls and weakness. Eventual MRI imaging demonstrated C2 fracture, and subsequent flexionand extension films confirmed instability. She was transferred to [facility] 09/10 for NSGY evaluation/treatment. After [...] SNF admission. [facility]. Chronic conditions as above [...] mg 09/17/22 16:18 Bisacodyl 10 Mg Supp.Rect OH 09/17/23 16:17 DAILY PRN Constipation Diazepam 2 mg 09/17/22 19:49 09/23/22 05:53 Diazepam 2 Mg Tablet PO 03/16/23 19:48 2 mg Q6H PRN Administration Spasms Docusate Sodium 100 mg 09/17/22 16:18 Docusate 100 Mg Capsule PO 09/17/23 16:17 BID PRN Constipation Docusate Sodium 283 mg 09/17/22 16:18 Docusate Enema 283 Mg/5 Ml Enema OH 09/17/23 16:17 DAILY PRN Constipation Famotidine 20 mg 09/17/22 21:00 09/25/22 08:27 Famotidine 20 Mg Tablet PO 09/17/23 20:59 Not Given Q12HR [facility] Heparin Sodium (Porcine) 5,000 unit [...] fracture status post fixation/fusion. * No significant global director air and climate change the last few days. Continues to prefer bed level exercises, feels like therapy is pushing her too much , although is able to move a little more than previously. Still nonambulatory. * Will be discharged to SNF of choice tomorrow, [facility] to transport. Hospitalist to assist with [...] greater than 15 minutes for services, including myup-ol-nzuz encounter with the patient, discussion of the case, plan of care, and exam; and grdgpjp-yy-[id number] activities, such as reviewing pertinent client service consultant documentation, recent therapy notes, laboratory and radiology studies, and discussion of case with care team including physician, nursing, correctional casework specialist, and therapists. More than 50 % of [...] health note review, nursing note review, client service consultant note review, discussion with nursing and case management, and more than 50% of my time was spent on counseling and coordination of care, time spent 23 minutes Patient was personally seen by me, Dr. Hill, on the day of encounter, I reviewed the history and the relevant portions of the chart, including current orders, allied health and client service consultant notes, labs/imaging and performed lea elements [...] signed by Tom Hill MD> 09/26/22 1145 [facility] Work Phone: 1([phone]) 208-946807-05-2023 Progress note Author Tom Hill [facility] September 24, 2022 10:18am Note Date/Time September 22, 2022 1:24p m [facility] [address] [place] [address] Physiatry(Rehab) Progress Note Signed Patient: Miriam German MR#: [id number] : 1955 Acct:[id number] Age/Sex: 67 / F Adm Date: 3 Loc: 5T Room: 5X7686-6 Type: ADM IN Attending Dr: Tom Hill [...] fracture and operative fixation. She presented to [facility] 2 weeks ago, 09/05 with increased falls and weakness. Eventual MRI imaging demonstrated C2 fracture, and subsequent flexionand extension films confirmed instability. She was transferred to [facility] 09/10 for NSGY evaluation/treatment. After [...] mg 09/17/22 16:18 Bisacodyl 10 Mg Supp.Rect OH 09/17/23 16:17 DAILY PRN Constipation Dexamethasone 4 [...] 16:18 Docusate Enema 283 Mg/5 Ml Enema OH 09/17/23 16:17 DAILY PRN Constipation Famotidine 20 [...] therapy. Nonambulatory. -Plan is to DC to fdc facility close to home. CM is making [...] greater than 15 minutes for services, including ixxh-wd-vfhl encounter with the patient, discussion of the case, plan of care, and exam; and icvtmht-nb-zfxa activities, such as reviewing pertinent client service consultant documentation, recent therapy notes, laboratory and radiology studies, and discussion of case with care team including physician, nursing, correctional casework specialist, and therapists. More than 50 % of [...] health note review, nursing note review, client service consultant note review, discussion with nursing and case management, and more than 50% of my time was spent on counseling and coordination of care, time spent 23 minutes Patient was personally seen by me, Dr. Hill, on the day of encounter, I reviewed the history and the relevant portions of the chart, including current orders, allied health and client service consultant notes, labs/imaging and performed lea elements of exam and I formulated the plan of care and facilitated the medical decision making. Documented By: Rubia George APRN 09/22/22 1 315 Signed By: <Electronically signed by GAETANO George> 09/22/22 1337 <Electronically signed by Tom Hill MD> 09/24/22 1017 [facility] Work Phone: 1(152) 340-277207-02-2023 Progress note Author Tom Hill [facility] September 21, 2022 10:55am Note Date/Time September 21, 2022 8:44a m [facility] [address] [place] [address] Physiatry(Rehab) Progress Note Signed Patient: Miriam German MR#: [id number] : 1955 Acct:[id number] Age/Sex: 67 / F Adm Date: 3 Loc: Room: [address] [place] [address] Type: ADM IN Attending Dr: Tom Hill MD Copies to: ~ Date of Service: 09/21/2022 Subjective Subjective Narrative: Ms. German is a 67 year old female with medical history of COVID-19 long- hauler, COPD, obstructive sleep apnea, rheumatoid arthritis on chronic prednisone admitted to the rehabilitation unit with cervical myelopathy after a C2 fracture and operative fixation. She presented to [facility] 2 weeks ago, 09/05 with increased falls and weakness. Eventual MRI imaging demonstrated C2 fracture, and subsequent flexionand extension films confirmed instability. She was transferred to [facility] 09/10 for NSGY evaluation/treatment. After [...] mg 09/17/22 16:18 Bisacodyl 10 Mg Supp.Rect OH 09/17/23 16:17 DAILY PRN Constipation Dexamethasone 2 [...] 16:18 Docusate Enema 283 Mg/5 Ml Enema OH 09/17/23 16:17 DAILY PRN Constipation Famotidine 20 [...] health note review, nursing note review, client service consultant note review, discussion with nursing and case management, and more than 50% of my time was spent on counseling and coordination of care, time spent 25 minutes Patient was personally seen by me, Dr. Hill, on the day of encounter, I reviewed the history and the relevant portions of the chart, including current orders, allied health and client service consultant notes, labs/imaging and performed lea elements of exam and I formulated the plan of care and facilitated the medical decision making. Documented By: Tom Hill MD 09/21/22 0844 Signed By: <Electronically signed by Tom Hill MD> 09/21/22 1050 [facility] Work Phone: 1(238) [phone] Consult note Author Adam Estrella [facility] September 18, 2022 5:32pm Note Date/Time September 18, 2022 4:47 pm [facility] [address] [place] [address] Hospitalist Consult Note Signed Patient: Miriam German MR#: [id number] : 1955 Acct:[id number] Age/Sex: 67 / F Adm Date: 3 Loc: Room: [address] [place] [address] Type: ADM IN Attending Dr: Tom Hill [...] hypertension who presented as a transfer from [facility] on 09/10/2022, where she was hospitalized [...] negative unless noted in the HPI below [facility] Attestation Statement: The following information [...] mg 09/17/22 16:18 Bisacodyl 10 Mg Supp.Rect OH 09/17/23 16:17 DAILY PRN Constipation Dexamethasone 2 [...] 16:18 Docusate Enema 283 Mg/5 Ml Enema OH 09/17/23 16:17 DAILY PRN Constipation Famotidine 20 [...] % (Auto) 81.9, Lymph % (Auto) 9.2, [place] % (Auto) 8.3, Eos % (Auto) 0.0, Baso % (Auto) 0.6, Nucleat RBC Rel Count 0.1, Neut # (Auto) 9.9 H, Lymph # (Auto) 1.1, [place] # (Auto) 1.0 H, Eos # (Auto) [...] signed by Adam Estrella DO> 09/18/22 1732 [facility] Work Phone: 1([phone]) 135-135906-29-2023 Progress note Author Ailyn Hermosillo [facility] September 18, 2022 11:47am Note Date/Time September 18, 2022 10:4 3am [facility] [address] [place] [address] Pulmonology Progress Note Signed Patient: Miriam German MR#: [id number] : 1955 Acct:[id number] Age/Sex: 67 / F Adm Date: 3 Loc: Room: [address] [place] [address] Type: ADM IN Attending Dr: Tom Hill [...] <Electronically signed by DO OCTAVIO Garcia> 09/18/22 1116 [facility] Work Phone: [phone]) 595-364706-29-2023 History and physical note Author Tom Hill [facility] September 18, 2022 8:00am Note Date/Time September 18, 2022 7:12 am [facility] [address] [place] [address] Physiatry (Rehab) H&P Signed Patient: Miriam German MR#: [id number] : 1955 Acct:[id number] Age/Sex: 67 / F Adm Date: 3 Loc: Room: [address] [place] [address] Type: ADM IN Attending Dr: Tom Hill [...] fracture and operative fixation. She presented to [facility] 2 weeks ago, 09/05 with increased falls and weakness. Eventual MRI imaging demonstrated C2 fracture, and subsequent flexionand extension films confirmed instability. She was transferred to [facility] 09/10 for NSGY evaluation/treatment. After medical clearance, underwent C2 sublaminar wire with allograft fusion 09/15. Postoperative course without significant complications aside from pain/anxiety. Her respiratory status is stable. Home prednisone is on hold until completes decadron taper. Cleared for DVT prophylaxis. Anxious, tearful on admission, repots 10/10 pain. RN called requesting new orders. Chronic conditions as above are stable. [facility] Attestation Statement: The following information [...] 2.5 Mg Tablet) 2.5 mg PO DAILY [facility] Stop: 09/18/23 08:59 Bisacodyl (Bisacodyl 10 Mg Supp.Rect) 10 mg OH DAILY PRN PRN Reason: Constipation Stop: 09/17/23 16:17 Dexamethasone (Dexamethasone 1 Mg Tablet) 1 mg PO QID [facility]; Taper Stop: 09/26/22 21:59 Diazepam (Diazepam 2 Mg Tablet) 2 mg PO Q6H PRN PRN Reason: Spasms Stop: 03/16/23 19:48 Last Admin: 09/17/22 20:01 Dose: 2 mg Docusate Sodium (Docusate 100 Mg Capsule) 100 mg PO BID PRN PRN Reason: Constipation Stop: 09/17/23 16:17 Docusate Sodium (Docusate Enema 283 Mg/5 Ml Enema) 283 mg OH DAILY PRN PRN Reason: Constipation Stop: 09/17/23 16:17 Famotidine (Famotidine 20 Mg Tablet) 20 mg PO Q12HR [facility] Stop: 09/17/23 20:59 Last Admin: 09/17/22 20:01 Dose: 20 mg Heparin Sodium (Porcine) (Heparin 5,000 Unit/Ml Vial) 5,000 unit SUBCUT Q8HR [facility] Stop: 09/18/23 09:59 Lactulose (Lactulose [...] 10 Mg Tablet) 10 mg PO BID [facility] Stop: 09/27/23 08:59 Senna/Docusate Sodium (Sennosides/Docusate 8.6-50mg 1 Tab Tablet) 2 tab PO BID [facility] Stop: 09/17/23 20:59 Last Admin: [...] % (Auto) 81.9 Lymph % (Auto) 9.2 [place] % (Auto) 8.3 Eos % (Auto) 0.0 Baso % (Auto) 0.6 Nucleat RBC Rel Count 0.1 Neut # (Auto) 9.9 H Lymph # (Auto) 1.1 [place] # (Auto) 1.0 H Eos # (Auto) [...] 10 days Expected Discharge Destination: Home Rehabilitation [facility]: Primary Diagnosis: Cervical myelopathy s/p C2 fracture [...] 24 hour daily monitoring and intervention from Assistant Child Care Teacher as well as other consulting physicians including internal medicine as well as 24 hour daily merchandise stocker nursing - for medical safe / optimal [...] health note review, nursing note review, client service consultant note review, discussion with nursing and case management, and more than 50% of my time was spent on counseling and coordination of care, time spent 75 minutes Patient was personally seen by me, Dr. Hill, on the day of encounter, within 24hours of rehab admission, reviewed the history and the relevant portions of the chart, including current orders, allied health and client service consultant notes, labs/imaging and performed lea elements of exam and I formulated the plan of care and facilitated the medical decision making. Documented By: Tom Hill MD 09/18/22 0710 Signed By: <Electronically signed by Tom Hill MD> 09/18/22 0800 [facility] Work Phone: [phone]) 155-182906-28-2023 Discharge summary Author Moises Garcia [facility] September 17, 2022 2:06pm Note Date/Time September 17, 2022 2:06 pm [facility] [address] [place] [address] Discharge Summary Signed Patient: Miriam German MR#: M [id number] : 1955 Acct:[id number] Age/Sex: 67 / F Adm Date: 3 Loc: 4 Room: [address] [place] [address]: Arnaud Max MD Copies to: [...] Course Hospital course: Patient was transferred from [facility] as an inpatient on 09/10/2022. On09/15/2022 [...] Discharge Plan Discharge Plan Patient Disposition: Rehab [facility] Activity: No Activity Restriction Diet: Regular Additional [...] Rehab.) Documented By: Moises Garcia MD 09/17/22 3309 Signed By: <Electronically signed by MD Moises Garcia> 09/17/22 1406 [facility] Work Phone: 1(136) 694-997406-28-2023 Progress note Author Moises Garcia [facility] September 17, 2022 2:05pm Note Date/Time September 17, 2022 2:05 pm [facility] [address] [place] [address] Neurosurgery Progress Note Signed Patient: Miriam German MR#: [id number] : 1955 Acct:[id number] Age/Sex: 67 / F Adm Date: 3 Loc: Room: [address] [place] [address] Type: ADM IN Attending Dr: Arnaud Max [...] signed by MD Moises Garcia> 09/17/22 1401 [facility] Work Phone: 1([phone]) [phone] Progress note Author Ailyn Hermosillo [facility] September 16, 2022 3:47pm Note Date/Time September 16, 2022 3:47 pm [facility] [address] [place] [address] Pulmonology Progress Note Signed Patient: Miriam German MR#: M [id number] : 1955 Acct:[id number] Age/Sex: 67 / F Adm Date: 3 Loc: Room: [address] [place] [address] Type: ADM IN Attending Dr: Arnaud Max [...] signed by Ailyn Hermosillo MD> 09/16/22 1547 [facility] Work Phone: 1([phone]) [phone] Progress note Author Arnaud Max [facility] September 16, 2022 1:31pm Note Date/Time September 16, 2022 1:31 pm [facility] [address] [place] [address] Hospitalist Progress Note Signed Patient: Miriam German MR#: [id number] : 1955 Acct:[id number] Age/Sex: 67 / F Adm Date: 3 Loc: Room: [address] [place] [address] Type: ADM IN Attending Dr: Arnaud Max [...] 08:59 DAILY PRN Magnesium < 1.6 Ipratropium [place]oston 0.5 mg 09/11/22 20:00 09/16/22 12:03 Ipratropium [place] 0.5 Mg/2.5 Ml Vial.Neb INHALATION 09/11/23 19:59 [...] <Electronically signed by Arnaud Max MD> 09/16/221 [facility] Work Phone: 1(602) 252-650506-27-2023 Progress note Author Moises Garcia [facility] September 16, 2022 7:37am Note Date/Time September 16, 2022 7:37 am [facility] [address] [place] [address] Neurosurgery Progress Note Signed Patient: Miriam German MR#: [id number] : 1955 Acct:[id number] Age/Sex: 67 / F Adm Date: 3 Loc: Room: [address] [place] [address] Type: ADM IN Attending Dr: Arnaud Max [...] % (Auto) 92.1, Lymph % (Auto) 4.4, [place] % (Auto) 3.3, Eos % (Auto) 0.0, Baso % (Auto) 0.2, Nucleat RBC Rel Count 0.0, Neut # (Auto) 14.2 H, Lymph #(Auto) 0.7 L, [place] # (Auto) 0.5, Eos # (Auto) 0.0, [...] signed by MD Moises Garcia> 09/16/22 0737 [facility] Work Phone: 1(589) [phone] Progress note Author Arnaud Max [facility] September 15, 2022 6:20pm Note Date/Time September 15, 2022 6:20 pm [facility] [address] [place] [address] Hospitalist Progress Note Signed Patient: Miriam German MR#: [id number] : 1955 Acct:[id number] Age/Sex: 67 / F Adm Date: 3 Loc: Room: [address] [place] [address] Type: ADM IN Attending Dr: Arnaud Max [...] 07:59 100 mls/hr Q8H [facility] Administration Ipratropium [place]oston 0.5 mg 09/11/22 20:00 09/15/22 17:06 Ipratropium [place] 0.5 Mg/2.5 Ml Vial.Neb INHALATION 09/11/23 19:59 [...] <Electronically signed by Arnaud Max MD> 09/15/22 1828 [facility] Work Phone: 1([phone]) 372-202606-26-2023 Hospital Discharge instructions Additional Instructions REHAB TO [...] precautions Care to be [facility] Work Phone: 1(809) 465-727506-25-2023 Progress note Author Boni Lincoln [facility] September 14, 2022 5:21pm Note Date/Time September 14, 2022 5:21 pm [facility] [address] [place] [address] Hospitalist Progress Note Signed Patient: Miriam German MR#: [id number] : 1955 Acct:[id number] Age/Sex: 67 / F Adm Date: 3 Loc: Room: [address] [place] [address] Type: ADM IN Attending Dr: Boni Lincoln [...] No clubbing, cyanosis or edema NEUROLOGICAL: Decreased wine steward/stewardess strength right upper extremity compared to the [...] 08:59 DAILY PRN Magnesium < 1.6 Ipratropium [place] 0.5 mg 09/11/22 20:00 09/14/22 15:49 Ipratropium [place] 0.5 Mg/2.5 Ml Vial.Neb INHALATION 09/11/23 19:59 [...] signed by Boni Lincoln DO> 09/14/22 1721 [facility] [facility] Work Phone: 1(484) 998-701206-24-2023 Progress note Author Boni Lincoln [facility] September 13, 2022 4:52pm Note Date/Time September 13, 2022 4:52 pm [facility] [address] [place] [address] Hospitalist Progress Note Signed Patient: Miriam German MR#: [id number] : 1955 Acct:[id number] Age/Sex: 67 / F Adm Date: 3 Loc: Room: [address] [place] [address] Type: ADM IN Attending Dr: Boni Lincoln [...] No clubbing, cyanosis or edema NEUROLOGICAL: Decreased wine steward/stewardess strength right upper extremity compared to the [...] 08:59 DAILY PRN Magnesium < 1.6 Ipratropium Toston 0.5 mg 09/11/22 20:00 09/13/22 16:16 Ipratropium Toston 0.5 Mg/2.5 Ml Vial.Neb INHALATION 09/11/23 19:59 [...] <Electronically signed by Boni Lincoln DO> 09/13/22 3351 [facility] Work Phone: 1(171) 956-556906-23-2023 Progress note Author Boni Lincoln [facility] September 12, 2022 6:26pm Note Date/Time September 12, 2022 6:26 pm [facility] [address] [place], [place] [id number] Hospitalist Progress Note Signed Patient: Miriam German MR#: [id number] : 1955 Acct:[id number] Age/Sex: 67 / F Adm Date: 3 Loc: 4 Room: [address] [place] [address] Type: ADM IN Attending Dr: Boni Lincoln [...] No clubbing, cyanosis or edema NEUROLOGICAL: Decreased wine steward/stewardess strength right upper extremity compared to the [...] 08:59 DAILY PRN Magnesium < 1.6 Ipratropium Toston 0.5 mg 09/11/22 20:00 09/12/22 15:56 Ipratropium Toston 0.5 Mg/2.5 Ml Vial.Neb INHALATION 09/11/23 19:59 [...] <Electronically signed by Boni Lincoln DO> 09/12/22 1825 [facility] Work Phone: 1(154) 839-742306-23-2023 Progress note Author Kira Azar [facility] September 12, 2022 4:07pm Note Date/Time September 12, 2022 4:07 pm [facility] [address] [place] [address] Anesthesia Progress Note Signed Patient: Miriam German MR#: [id number] : 1955 Acct:[id number] Age/Sex: 67 / F Adm Date: 3 Loc: Room: [address] [place] [address] Type: ADM IN Attending Dr: Boni Lincoln [...] is a chronic retainer. She presented to [facility] and was transferred over after having [...] <Electronically signed by Kira Azar, > 09/12/22 8131 [facility] Work Phone: 1(418) 868-271706-23-2023 Progress note Author Ailyn Hermosillo [facility] September 12, 2022 1:44pm Note Date/Time September 12, 2022 1:44 pm [facility] [address] [place] [address] Pulmonology Progress Note Signed Patient: Miriam German MR#: [id number] : 1955 Acct:[id number] Age/Sex: 67 / F Adm Date: 3 Loc: Room: [address] [place] [address] Type: ADM IN Attending Dr: Boni Lincoln [...] signed by Ailyn Hermosillo MD> 09/12/22 1344 [facility] Work Phone: 1(350) 137-299906-23-2023 Consult note Author Moises Garcia [facility] September 12, 2022 11:27am Note Date/Time September 12, 2022 11:2 6am [facility] [address] [place] [address] Neurosurgery Consult Note Signed with John Patient: Miriam German MR#: [id number] : 1955 Acct:[id number] Age/Sex: 67 / F Adm Date: 3 Loc: Room: 3A5282-6 Type: ADM IN Attending Dr: Boni Lincoln [...] arthritis and hypertension. Patient was transferred from [facility] where she was hospitalized as an [...] quadricep anterior tibial gastrocnemius are grossly 5/5 table hand are 4/5 bilaterally Cerebellar: No lead pipe [...] % (Auto) 86.5, Lymph % (Auto) 8.0, [place] % (Auto) 4.8, Eos % (Auto) 0.2, Baso % (Auto) 0.5, Nucleat RBC Rel Count 0.0, Neut # (Auto) 10.3 H, Lymph #(Auto) 1.0, [place] # (Auto) 0.6, Eos # (Auto) 0.0, [...] % (Auto) 86.2, Lymph % (Auto) 7.6, [place] % (Auto) 5.7, Eos % (Auto) 0.0, Baso % (Auto) 0.5, Nucleat RBC Rel Count 0.1, Neut # (Auto) 9.4 H, Lymph # (Auto) 0.8 L, [place] # (Auto) 0.6, Eos # (Auto) 0.0, [...] signed by MD Moises Garcia> 09/12/22 1126 [facility] Work Phone: 1(157) 892-526206-22-2023 Progress note Author Boni Lincoln [facility] September 11, 2022 6:18pm Note Date/Time September 11, 2022 6:18 pm [facility] [address] [place] [address] Hospitalist Progress Note Signed Patient: Miriam German MR#: [id number] : 1955 Acct:[id number] Age/Sex: 67 / F Adm Date: 3 Loc: Room: 2U5055-0 Type: ADM IN Attending Dr: Boni Lincoln DO Copies to: ~ Date of Service: 09/11/2022 Subjective Subjective Narrative: This patient is a 67-year-old female with a history of rheumatoid arthritis and hypertension. She presents as a transfer from [facility] where she was hospitalized as an [...] No clubbing, cyanosis or edema NEUROLOGICAL: Decreased wine steward/stewardess strength right upper extremity compared to the [...] 08:59 DAILY PRN Magnesium < 1.6 Ipratropium Toston 0.5 mg 09/11/22 20:00 Ipratropium Toston 0.5 Mg/2.5 Ml Vial.Neb INHALATION 09/11/23 19:59 [...] signed by Boni Lincoln DO> 09/11/22 1817 [facility] Work Phone: 1(259) 980-890206-22-2023 Consult note Author Srikanth Johnson [facility] September 11, 2022 5:10pm Note Date/Time September 11, 2022 5:04 pm [facility] [address] [place] [address] Cardiology Consult Note Signed Patient: Miriam German MR#: [id number] : 1955 Acct:[id number] Age/Sex: 67 / F Adm Date: 3 Loc: Room: [address] [place] [address] Type: ADM IN Attending Dr: Boni Lincoln [...] hypertension or diabetes, however blood pressures at [place] emergency room and during her hospitalization were [...] Lymph # (Auto) 0.8 L (1.00-4.8) x10E3/uL [place] # (Auto) 0.6 (0.0-0.8) x10E3/uL Eos # [...] <Electronically signed by Srikanth Johnson DO> 09/11/22 1693 [facility] Work Phone: 1(220) 178-800206-22-2023 Consult note Author Kira Gill [facility] September 11, 2022 4:15pm Note Date/Time September 11, 2022 4:01 pm [facility] [address] [place] [address] Pulmonology Consult Note Signed Patient: Miriam German MR#: [id number] : 1955 Acct:[id number] Age/Sex: 67 / F Adm Date: 3 Loc: Room: [address] [place] [address] Type: ADM IN Attending Dr: Boni Lincoln [...] been followed by Dr. Bhumika stacy in [place] and has had a longstanding history of supplemental oxygen use at 3 L/min continuously. Patient reportedly has a history of COPD though she denies ever having had pulmonary function test. She does admit to approximately an 12-jgey-tbzn smoking history and is chronically on oxygen [...] of September 05, 2022 presumably from the [facility] reveals no clear evidence of subpleural [...] you Documented By: Kira Gill MD 3 [id number] Signed By: <Electronically signed by MD Kira Gill> 09/11/22 1615 [facility] Work Phone: 1(388) 854-967406-21-2023 History and physical note Author Boni Lincoln [facility] September 10, 2022 7:21pm Note Date/Time September 10, 2022 6:11 pm [facility] [address] [place] [address] Hospitalist H&P Signed Patient: Miriam German MR#: [id number] : 1955 Acct:[id number] Age/Sex: 67 / F Adm Date: 3 Loc: Room: [address] [place] [address] Type: ADM IN Attending Dr: Boni Linclon DO Copies to: DO Boni Sullivan DO~ HPI DATE OF EXAMINATION: 09/10/22 CHIEF COMPLAINT: Odontoid fracture HISTORY OF PRESENT ILLNESS: This patient is a 67-year-old female with a history of rheumatoid arthritis and hypertension. She presents as a transfer from [facility] where she was hospitalized as an inpatient after presenting with generalized weakness and backpain on 09/05/2022. She had recently been diagnosed with pneumonia on a prior EDvisit 09/03/2022. She had been experiencing increasingly frequent falls and generalized weakness prompting her to come back to the ER. Reportedly wears 4 Lnasal cannula at baseline. The accompanying records provided by [place] are essentially worthless providing only repeated copies [...] No clubbing, cyanosis or edema NEUROLOGICAL: Decreased wine steward/stewardess strength right upper extremity compared to the left, moves all 4 extremities spontaneously SKIN: Multiple areas of bruising/petechiae PSYCHIATRIC: Appropriate mood and affect Assessment and plan: 1. Unstable C2 odontoid fracture Unfortunately [place] did not send over any useful records including any cervical spine imaging, not CT nor MRI reports. When requesting records from [place] our nursing staff was met with significant [...] negative unless noted below or in HPI [facility] Medical History (Updated 09/10/22 @ [...] <Electronically signed by Boni Lincoln DO> 09/10/221920 [facility] Work Phone: 1(767) 972-895206-21-2023 Evaluation note* Encounter Date Diagnosis Assessment Notes Treatment Notes Treatment Clinical Notes Aug, Closed odontoid fracture with routine healing, subsequent encounter (ICD-10 - S12.100D) [facility] Other 06-17-2023 History of Present illness Narrative* BryanMumtaz lomasDO - 09/06/2022 7:02 PM EDT Images from the original note were not included. EMERGENCY TRIAGE, TREAT AND TRANSPORT (ET3) DOCUMENTATION OF TELEHEALTH VISIT Date / Time: 09/05/2022 / 5 Name: Miriam German : 1955 SSN: [id number] EMS Agency: [facility] [x] Verbal consent obtained [] [...] Mumtaz Jean Baptiste DO documented in this [id number] Evaluation note* Encounter Date Diagnosis Assessment Notes [...] - F17.211) Continue abstinence, yearly LDCT recommended. [email or web address] Other 06-02-2023 Evaluation note* Encounter Date Diagnosis Assessment Notes Treatment Notes Treatment Clinical Notes Aug, New daily persistent headache (ICD-10 - G44.52) [email or web address] Other 05-18-2023 NoteProcedure: Ultrasound-guided right glenohumeral joint [...] A subcentimeter dermatotomy was performed. A 5 Citizen Of [place] African Grain Companyesis catheter needle was advanced into the anterior [...] Is Signed, Electronically Signed in Other Vendor System)[facility]05-11-2023 NotePatient Education Materials Name: Miriam German Current Date: 07/31/2022 07:43:50 [place] : 1955 The following sheet(s) are the [...] DO__for continued care. Thank you for choosing [facility] for your care. IS IT A [...] immediate medical attention! Thank you for choosing [facility] Patient and Family Resources COVID vaccinations are offered at most retail pharmacies or your local health department. For more information, go to [email or web address]. If you received a COVID vaccine while at the hospital, you may need to schedule an appointment to receive your second dose. For the Pfizer vaccine: a second dose at least 21 days after the first dose. For the Moderna vaccine: second dose at least 28 days after the first dose. For the Mario and Mario vaccine: no second dose is required. [facility] Poison Help line: [facility] Crisis Hotline: National Suicide and Crisis Lifeline: [address] [place] Tobacco Quit Line: [facility] [address], [place]: [phone] For the disposal of all unused and/or prescription medications (including opioid/narcotic medications), [facility] has two medication collection boxes: 1) at the [facility] Office and 2) at the [facility]05-10-2023 Evaluation note* Encounter Date Diagnosis Assessment [...] refer back to Rheum after shoulder surgery. [email or web address] Other 05-10-2023 Evaluation note* Encounter Date Diagnosis [...] to open ET and Flonase NS recommended. [email or web address] Other 02-09-2023 Evaluation note* Encounter Date Diagnosis Assessment Notes Treatment Notes Treatment Clinical Notes Apr, Primary hypertension (ICD-10 - I10) Apr, High risk medication use (ICD-10 - Z79.899) Apr, Fatigue, unspecified type (ICD-10 - R53.83) Apr, 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 (ICD-10 - M05.741) Apr, Vitamin D deficiency (ICD-10 - E55.9) [email or web address] Other 02-08-2023 Evaluation note* Encounter Date Diagnosis [...] Healthy diet, keep active, consistent sleep routine [email or web address] Other 12-21-2022 Telephone encounter Note* Telephone Encounter [...] records found for TST-PPD, intradermal (PPD) (CVX=96) [employer] Work Phone: 1(354) 795-371412-21-2022 Miscellaneous Notes* Telephone Encounter - Noreen Garcia [...] TST-PPD, intradermal (PPD) (CVX=96) documented in this [id number] Telephone encounter Note* Telephone Encounter - Jocelyn Rodarte - 10/13/2021 10:28 AM EDT Existing RX should have refills. [id number] Miscellaneous Notes* Telephone Encounter - Jocelyn Rodarte - 10/13/2021 10:28 AM EDT Existing RX should have refills. documented in this [id number] Telephone encounter Note* Telephone Encounter - Chris Love - 09/26/2021 4:05 PM EDT Sent pt mychart msg [id number] Miscellaneous Notes* Telephone Encounter - Chris Love - 09/26/2021 4:05 PM EDT Sent pt mychart msg * Telephone Encounter - Tom Welch MD - 09/26/2021 3:54 PM EDT Needs f/u visit documented in this [id number] Telephone encounter Note* Telephone Encounter - Tom Welch MD - 09/26/2021 3:54 PM EDT Needs f/u visit [id number] Hospital course Narrative* Sunni Mary RN - 08/21/2021 3:06 PM EDT Report called to Kitty at [facility]. No further questions or concerns at this time. Patient sent with belongings bag of cell phone and furnace charger. Awaiting transport scheduled for 3pm documented in this encounterBON OutTrippin Phone: 1([phone]) 215-602506-01-2022 History of Present illness Narrative* Michelle Dunaway [...] loss Fluid Accumulation: Mild (to Moderate) Extremities,Generalized Pressroom Foreman Strength: Not Performed Nutrition Assessment: Pt seen/chart [...] Anthropometric Measures: Height: 5' 4 (162.6 cm) [place] Body Weight (IBW): 120 lbs (55 kg) [...] 1800 kcals/day Weight Used for Protein Requirements: [place] Protein (g/day): 80 gm pro/day Method Used for Fluid Requirements: Other - [place] Segva Fluid (ml/day): 2000 mL/day or per MD [...] current diet Michelle Dunaway RD, ANNA Contact: [phone] * Dilan Jerome MD - 08/21/2021 10:57 AM EDT Images from the original note were not included. [facility] Office: [phone] Anthony Cano DO, Leighton Johnson DO, Tom [...] CNP, Lili Palmer CNP, Ashia Fu, GINNY [facility] IN-PATIENT SERVICE [facility] Progress Note 08/21/2021 10:57 AM Name: Miriam German Acct: [id number] Room: IP Day: 7 Admit Date: 08/14/2021 [...] sent later today to rehab facility in [place] Brief History: Per my partner: Miriam German is a 66 y.o. female initially presented to [facility] ED for evaluationof acute onset lower [...] CRP. Orthopedic surgery evaluated the patient in [place]'s ER and recommended the patient be transferred [...] looked in months. Blood cultures drawn from [place] ED returned positive. Orthopedic surgery and general [...] Continuous Infusions: sodium chloride 25 mL (08/21/21 0727) sodium chloride PRN Meds: metoprolol, sodium chloride [...] No results for input(s): PROT, LABALBU, LABA1C, Z1MNVNW, B1FJVVR, FT4, TSH, AST, ALT, LDH, GGT, ALKPHOS, LABGGT, BILITOT, BILIDIR, AMMONIA, AMYLASE, LIPASE, LACTATE, CHOL, HDL, LDLCHOLESTEROL, CHOLHDLRATIO, TRIG, VLDL, RAU87SI, PHENYTOIN, PHENYF, URICACID, POCGLU in the last 72 hours. ABG:No results found for: POCPH, PHART, PH, POCPCO2, JHG6TLC, PCO2, POCPO2, PO2ART, PO2, POCHCO3, VBQ0PXO, HCO3, NBEA, PBEA, BEART, BE, THGBART, THB, CLP0EYM, ADQN8GWK, A3DWNNUK, O2SAT, FIO2 Lab Results Component Value Date/Time [...] THORACIC SPINE WO CONTRAST Result Date: 08/15/2021 Dacn-xf-cyqaacfb compression fracture of the T4 vertebral body, [...] 08/15/2021 Unsuccessful fluoroscopic-guided lumbar puncture in the ebna-xwdg-cehn decubitus position, as above. IR ARTHR/ASP/INJ MAJOR [...] that Long discussion with pt, delfin and correctional casework specialist, > 45 min spent coordinating care, CLAIRE signed Dilan Jerome MD 08/21/2021 10:57 AM * Claire Red RN - 08/21/2021 6:56 AM EDT PROCESSING ASSISTANT notified of hypokalemia, new order noted. * Claire Red RN - 08/20/2021 8:40 PM EDT PROCESSING ASSISTANT notified of loose stools d/t ABX, new PRN order noted for Imodium. PROCESSING ASSISTANT also notified of pt stating she is no longer on prednisone, order d/c'd. * Eulogio Manzo MD - 08/20/2021 1:15 PM EDT [facility] - Progress Note Today's Date and [...] pubic symphysis aspiration 08/17/21 Infection Control Recommendations [place] Precautions Antimicrobial Stewardship Recommendations Simplification of therapy [...] fall in June 2021, initially presented to [facility] ED on 08/14/21 with complaints [...] and Vancomycin. [facility] Abnormal lab findings at [facility] included: Lactic: 2.8 Pro floyd: 3.47 Alk phos: 187 CRP: 258.6 WBC: 23.3 Abs neutr: 19.1 ESR: 84 Blood cultures from [place] on 08/14/21 came back positive for gram [...] will continue to follow Discharge planning to [place] [facility] Labs, X rays reviewed: 08/20/2021 BUN:11-->7 [...] RIGHT performed by Gerardo Munroe MD at [facility] OR CT ASP ABS HEMATOMA BULLA CYST 08/17/2021 CT ASP ABS HEMATOMA BULLA CYST 08/17/2021 Jonathan Osorio MD [facility] CT SCAN SHOULDER ARTHROSCOPY Right 08/16/2021 SHOULDER ARTHROSCOPY WITH I&D performed by Gerardo Munroe MD at [facility] OR Medications: [START ON 08/21/2021] [...] Friends and Family: Not on file Attends Sikhism Services: Not on file Active Member of [...] Right femoral venous catheter noted. Medical Decision Nnwwbs-Exthuepz-Koinw: Result 2 of 2 This report contains more than one result. Contains abnormal data Culture, Blood 1 Order: [id number] Status: Final result Visible to patient: No (not released) Next appt: None Specimen Information: Blood 0 Result Notes Component 08/14/21 1205 Resulting Agency Specimen Description .BLOOD [facility] Special Requests RIGHT CVC 10ML [facility] Culture POSITIVE BLOOD CULTURE, RN NOTIFIED: [facility] Culture DIRECT GRAM STAIN FROM BOTTLE: GRAM POSITIVE COCCI IN CLUSTERS [facility] Culture STAPHYLOCOCCUS AUREUS This isolate is methicillin susceptible. Abnormal [facility] Culture (NOTE) Direct Gram Stain from bottle result called to and read back by JENNIFER RICHTER RN AT [facility] CARDIAC 3 0119 08/15/2021 [facility] Susceptibility Staphylococcus aureus (3) [...] data were reviewed Discussed with nursing Staff, case planner Infection Control and Prevention measures reviewed All prior entries were reviewed Administer medications as ordered Prognosis: Fair Discharge planning reviewed Follow up as outpatient. Thank you for allowing us to participate in the care of this patient. Please call with questions. Tita Martinez, MASTER MACHINIST - QUALITY CONTROL COORDINATOR ATTESTATION: I have discussed the case, including [...] from the original note were not included. [facility] Office: [phone] Anthony Cano DO, Leighton Johnson DO, Tom [...] Orr MD, Dilan Jerome MD, Valerie Miller, QUALITY CONTROL COORDINATOR, Hina Granados, QUALITY CONTROL COORDINATOR, Juan Carlos Mosqueda,QUALITY CONTROL COORDINATOR, Amira Morgan, QUALITY CONTROL COORDINATOR, Barbara Feliciano, QUALITY CONTROL COORDINATOR, Rory Peralta, QUALITY CONTROL COORDINATOR, Barrington Rodriguez, PA-C, Ludy Good, DNP, Regina Delvalle, QUALITY CONTROL COORDINATOR, Liliya Gambino, QUALITY CONTROL COORDINATOR, Evie Tavares, QUALITY CONTROL COORDINATOR, Gabby Hanson, AUTO SALVAGE WORKER, [place], DNP, Mildred Auguste, QUALITY CONTROL COORDINATOR, Lili Palmer, QUALITY CONTROL COORDINATOR, Ashia Fu, QUALITY CONTROL COORDINATOR [facility] IN-PATIENT SERVICE [facility] Progress Note 08/20/2021 12:52 PM Name: Miriam German Acct: [id number] Room: IP Day: 6 Admit Date: 08/14/2021 [...] sent later today to rehab facility in [place] Brief History: Per my partner: Miriam German is a 66 y.o. female initially presented to [facility] ED for evaluationof acute onset lower [...] CRP. Orthopedic surgery evaluated the patient in [place]'s ER and recommended the patient be transferred [...] looked in months. Blood cultures drawn from [place] ED returned positive. Orthopedic surgery and general [...] No results for input(s): PROT, LABALBU, LABA1C, P7RPRIW, T7WUFVE, FT4, TSH, AST, ALT, LDH, GGT, ALKPHOS, LABGGT, BILITOT, BILIDIR, AMMONIA, AMYLASE, LIPASE, LACTATE, CHOL, HDL, LDLCHOLESTEROL, CHOLHDLRATIO, TRIG, VLDL, WXI47TP, PHENYTOIN, PHENYF, URICACID, POCGLU in the last 72 hours. ABG:No results found for: POCPH, PHART, PH, POCPCO2, WVU3NYU, PCO2, POCPO2, PO2ART, PO2, POCHCO3, OLO4JCU, HCO3, NBEA, PBEA, BEART, BE, THGBART, THB, TYM9OYM, HQCC9EMM, Q1APZOEC, O2SAT, FIO2 Lab Results Component Value Date/Time [...] THORACIC SPINE WO CONTRAST Result Date: 08/15/2021 Yuec-ku-qulwahbd compression fracture of the T4 vertebral body, [...] 08/15/2021 Unsuccessful fluoroscopic-guided lumbar puncture in the zoqj-xtlg-qvbi decubitus position, as above. IR ARTHR/ASP/INJ MAJOR [...] open Long discussion with pt, sons and correctional casework specialist, > 45 min spent coordinating care, CLAIRE signed Dilan Jerome MD 08/20/2021 12:52 PM * Ryan Neal OT - 08/19/2021 2:04 PM EDT Occupational Therapy Facility/Department: [facility] 2 Occupational Therapy Initial Assessment Name: Miriam [...] Devices ADL Assistive Devices: Long-handled Shoe Horn;Long-handled Sponge;Buffing And Sueding Machine Operator;Sock- Aid Hard Patient Diagnosis(es): The primary encounter [...] Ambulation Assistance: Independent Transfer Assistance: Independent Active Facilities Engineering Manager: No Patient's Facilities Engineering Manager Info: neighbor, friend 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 Leisure & Hobbies: garden Additional [...] CMS 0-100% Score: 56.46 (08/19/211404) ADL Inpatient [facility] G-Code Modifier : CK (08/19/211404) Goals [...] Short Term Goal 6: Verbalize/incorporate 2 edema manager project management to reduce edema in BUE and improvefunctional use of BUE Therapy Time Individual Concurrent Group Co-treatment Time In 1306 Time Out 1330 Minutes 24 Timed Code Treatment Minutes: 23 Minutes Ryan Neal OTR/L * Julianne Dickerson, PT - 08/19/2021 11:08 AM EDT Physical Therapy Facility/Department: [facility] 2 Physical Therapy Reassessment Name: Miriam German [...] to the ER as a transfer from [place] for concerns of septic arthritis. Patient presented to [place] ER earlier today with concerns for acute [...] well as abdomen and trunk. Workup at [place] was showed inflammatory changes in the right shoulder and around pubic symphysis that was concerning for septic arthritis. Ortho was consulted at [place] and the orthopedic surgeon did not feel patient was appropriate for bedside arthrocentesis and needed to have exam perfo rmed with xray guidance. Patient was transferred to [place] for Ortho eval here. Noted to have leukocytosis of 17.1. CRP elevated to 249.9. Sed rate 66. Blood cultures, lactate acid were drawn. Patient received one dose of Vancomycin and Zosyn at [place]. Received 30cc/kg bolus. Central line wasplaced for poor peripheral access. Urinalysis also positive for UTI. Patient's son is in the room and states they just saw her this past Thursday and she was ambulatorywith walker and was the best that she had looked in months. Per reports she was ambulatory when shefirst arrived at [place] earlier today. 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 Vision/Hearing Hearing: Within functional limits [...] A from elevated bed, rwalker; sit to regional coordinator murtaza stedy withmod A+2) Stand to sit: [...] Inpatient CMS G-Code Modifier : CM (08/17/21 [facility]) Goals Spa Technician Goals Time Frame for intermediate goals : 12 visits intermediate goal 1: sit to stand from lift chair with SBA+1 terminal gauger supervisor goal 2: gait with rollator x 25' with SBA+1 terminal gauger supervisor goal 3: improve R shoulder strength to [...] 10:39 AM EDT [facility] - Progress Note Today's Date and [...] pubic symphysis aspiration 08/17/21 Infection Control Recommendations Truxton Precautions Antimicrobial Stewardship Recommendations Simplification of therapy [...] fall in June 2021, initially presented to [facility] ED on 08/14/21 with complaints [...] and Vancomycin. [facility]. Abnormal lab findings at [facility] included: Lactic: 2.8 Pro floyd: 3.47 Alk phos: 187 CRP: 258.6 WBC: 23.3 Abs neutr: 19.1 ESR: 84 Blood cultures from [place] on 08/14/21 came back positive for gram [...] Friends and Family: Not on file Attends Sikhism Services: Not on file Active Member of [...] Right femoral venous catheter noted. Medical Decision Wditqv-Cisbvhgj-Pvolb: Result 2 of 2 This report contains more than one result. Contains abnormal data Culture, Blood 1 Order: [id number] Status: Final result Visible to patient: No (not released) Next appt: None Specimen Information: Blood 0 Result Notes Component 08/14/21 1205 Resulting Agency Specimen Description .BLOOD [facility] Special Requests RIGHT CVC 10ML [facility] Culture POSITIVE BLOOD CULTURE, RN NOTIFIED: [facility] [place] Culture DIRECT GRAM STAIN FROM BOTTLE: GRAM POSITIVE COCCI IN CLUSTERS [facility] [place] Culture STAPHYLOCOCCUS AUREUS This isolate is methicillin susceptible. Abnormal [facility] [place] Culture (NOTE) Direct Gram Stain from bottle result called to and read back by JENNIFER RICHTER RN AT [facility] 3 0119 08/15/2021 [facility] [place] Susceptibility Staphylococcus aureus (3) Antibiotic [...] data were reviewed Discussed with nursing Staff, case planner Infection Control and Prevention measures reviewed All prior entries were reviewed Administer medications as ordered Prognosis: Fair Discharge planning reviewed Follow up as outpatient. Thank you for allowing us to participate in the care of this patient. Please call with questions. Tita Martinez, MASTER MACHINIST - QUALITY CONTROL COORDINATOR ATTESTATION: I have discussed the case, including pertinent history and exam findings with the MASTER MACHINIST. I have evaluated the History, physical findings and pictures of the patient and the lea elements of the encounter have been performed by me. I have reviewed the laboratory data, other diagnostic studies and discussed them with the MASTER MACHINIST. I have updated the medical record where necessary. I agree with the assessment, plan and orders as documented by the MASTER MACHINIST. Eulogio Manzo MD. Pager: - Office: * Loretta Strauss MD - 08/19/2021 9:59 AM EDT Images from the original note were not included. [facility] Office: [phone] Anthony Cano DO, Leighton Johnson DO, Tom [...] TOSHIA FelicianoC, Ludy Good, DNP, Regina Delvalle, QUALITY CONTROL COORDINATOR, Liliya Gambino, QUALITY CONTROL COORDINATOR, Evie Tavares, QUALITY CONTROL COORDINATOR, Gabby Hanson, AUTO SALVAGE WORKER, [place], MANOLO, Mildred Auguste, GINNY, Lili Palmer, GINNY, Ashia Fu, QUALITY CONTROL COORDINATOR [facility] IN-PATIENT SERVICE [facility] Progress Note 08/19/2021 9:59 AM Name: Miriam German Acct: [id number] Room: IP Day: 5 Admit Date: 08/14/2021 [...] needs to go to a SNF in [place]. She is also agreeable to this, after her 2 sons spoke to her. I offered a bariatric bed, she refused. She requests a sleep aid, and to sleep in the chair she is in. No fevers, chills. Brief History: Per my partner: Miriam German is a 66 y.o. female initially presented to [facility] ED for evaluationof acute onset lower [...] CRP. Orthopedic surgery evaluated the patient in [place]'s ER and recommended the patient be transferred [...] looked in months. Blood cultures drawn from [place] ED returned positive. Orthopedic surgery and general [...] No results for input(s): PROT, LABALBU, LABA1C, Q6SJBWN, Z5GONUC, FT4, TSH, AST, ALT, LDH, GGT, ALKPHOS, LABGGT, BILITOT, BILIDIR, AMMONIA, AMYLASE, LIPASE, LACTATE, CHOL, HDL, LDLCHOLESTEROL, CHOLHDLRATIO, TRIG, VLDL, RAK07RY, PHENYTOIN, PHENYF, URICACID, POCGLU in the last 72 hours. ABG:No results found for: POCPH, PHART, PH, POCPCO2, EOH2YJS, PCO2, POCPO2, PO2ART, PO2, POCHCO3, GAR7XTV, HCO3, NBEA, PBEA, BEART, BE, THGBART, THB, VZI6DQV, SDHR2ITX, G0PAODNT, O2SAT, FIO2 Lab Results Component Value Date/Time [...] THORACIC SPINE WO CONTRAST Result Date: 08/15/2021 Fned-jn-woupjuid compression fracture of the T4 vertebral body, [...] 08/15/2021 Unsuccessful fluoroscopic-guided lumbar puncture in the lmlb-sddp-rrzl decubitus position, as above. IR ARTHR/ASP/INJ MAJOR [...] 11. SW- dc planning to SNF, dw correctional casework specialist. Long discussion with pt, sons and correctional casework specialist, > 45 min spent coordinating care, CLAIRE [...] she will f/u with Dr. Newell in [place] as out-pt.. * Julianne Dickerson PT - [...] 8:21 AM EDT [facility] - Progress Note Today's Date and [...] pubic symphysis aspiration 08/17/21 Infection Control Recommendations [place] Precautions Antimicrobial Stewardship Recommendations Simplification of therapy [...] fall in June 2021, initially presented to [facility] ED on 08/14/21 with complaints [...] and Vancomycin. [facility]. Abnormal lab findings at [facility] included: Lactic: 2.8 Pro floyd: 3.47 Alk [...] Friends and Family: Not on file Attends Sikhism Services: Not on file Active Member of [...] Right femoral venous catheter noted. Medical Decision Dgkbmm-Owkizwzq-Dnqgh: Result 2 of 2 This report contains more than one result. Contains abnormal data Culture, Blood 1 Order: [id number] Status: Final result Visible to patient: No (not released) Next appt: None Specimen Information: Blood 0 Result Notes Component 08/14/21 1205 Resulting Agency Specimen Description .BLOOD [facility] Special Requests RIGHT CVC 10ML [facility] Culture POSITIVE BLOOD CULTURE, RN NOTIFIED: [facility] [place] Culture DIRECT GRAM STAIN FROM BOTTLE: GRAM POSITIVE COCCI IN CLUSTERS [facility] [place] Culture STAPHYLOCOCCUS AUREUS This isolate is methicillin susceptible. Abnormal [facility] [place] Culture (NOTE) Direct Gram Stain from bottle result called to and read back by JENNIFER RICHTER RN AT [facility] 3 0119 08/15/2021 TB [facility] [place] Susceptibility Staphylococcus aureus (3) Antibiotic [...] data were reviewed Discussed with nursing Staff, case planner Infection Control and Prevention measures reviewed All prior entries were reviewed Administer medications as ordered Prognosis: Fair Discharge planning reviewed Follow up as outpatient. Thank you for allowing us to participate in the care of this patient. Please call with questions. Tita Martinez, MASTER MACHINIST - QUALITY CONTROL COORDINATOR ATTESTATION: I have discussed the case, including pertinent history and exam findings with the MASTER MACHINIST. I have evaluated the History, physical findings and pictures of the patient and the lea elements of the encounter have been performed by me. I have reviewed the laboratory data, other diagnostic studies and discussed them with the MASTER MACHINIST. I have updated the medical record where necessary. I agree with the assessment, plan and orders as documented by the MASTER MACHINIST. Eulogio Manzo MD. Pager: - Office: * [...] Patient's name: Miriam German Patient's account/billing number: [id number] Patient's Date of : 1955 Age: 66 y.o. Date of Admission: 08/14/2021 5:10 PM Length of stay during current admission: 3 Primary Care Physician: Bhumika Stacy DO Code Status: Full Code Mode of physician to physician communication: [x] Via telephone [] In person Date and time of sign-out: 08/17/2021 6:34 PM Accepting Monica PROCESSING ASSISTANT: Valerie Miller. Accepting Medicine team: Monica. Accepting team's attending: Dr. Ap Duran Patient's current ICU Bed: 3022 Patient's assigned bed on floor: 2013 [] Med-Surg Monitored [x] Step-down [] Psychiatry ICU [] Psych floor Reason for ICU admission: Sepsis secondary to septic arthritis. ICU course summary: 66-year-old female with history of rheumatoid arthritis on immunosuppressive drugs, presented to [facility] a transfer from [place] ED where she presented for right shoulder pain and suprapubic pain. Patient has a history of traumatic fall in June this year resulting in nondisplaced fracture of left L5 and right L4 transverse process. In [place] ED, there was concern of dissection, CTA [...] was consulted and patient was transferred to [place] for further management. And [place] ER, patient had severe mottling of bilateral [...] joint was aspirated. Her blood cultures from [facility] grew gram-positive cocci MSSA. Infectious disease [...] 08/17/2021 1:41 PM EDT Physical Therapy Facility/Department: [facility] CAR 3 Physical Therapy Initial [...] to the ER as a transfer from [place] for concerns of septic arthritis. Patient presented to [place] ER earlier today with concerns for acute [...] well as abdomen and trunk. Workup at [place] was showed inflammatory changes in the right shoulder and around pubic symphysis that was concerning for septic arthritis. Ortho was consulted at [place] and the orthopedic surgeon did not feel patient was appropriate for bedside arthrocentesis and needed to have exam performed with xray guidance. Patient was transferred to [place] for Ortho eval here. Noted to have leukocytosis of 17.1. CRP elevated to 249.9. Sed rate 66. Blood cultures, lactate acid were drawn. Patient received one dose of Vancomycin and Zosyn at [place]. Received 30cc/kg bolus. Central line wasplaced for poor peripheral access. Urinalysis also positive for UTI. Patient's son is in the room and states they just saw her this past Thursday and she was ambulatorywith walker and was the best that she had looked in months. Per reports she was ambulatory when shefirst arrived at [place] earlier today. 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 Vision/Hearing Vision: WFL Hearing: Within [...] to R ankle, R shoulder AM-PAC Score AM-[facility] Inpatient Mobility Raw Score : 7 (08/17/21 [facility]) AM-PAC Inpatient T-Scale Score : 26.42 (08/17/21 [facility]) Mobility Inpatient CMS 0-100% Score: 92.36 (08/17/21 [facility]) Mobility Inpatient CMS G-Code Modifier : CM (08/17/21 [facility]) Goals Spa Technician Goals Time Frame for terminal gauger supervisor goals : 1 visit terminal gauger supervisor goal 1: assess mobility next session and [...] 9:15 AM EDT [facility] - Progress Note Today's Date and [...] shoulder I&D on 08/16/21 Infection Control Recommendations [place]xton Precautions Antimicrobial Stewardship Recommendations Simplification of therapy [...] fall in June 2021, initially presented to [facility] ED on 08/14/21 with complaints [...] and Vancomycin. [facility] level [facility] care. Abnormal lab findings at [facility] included: Lactic: 2.8 Pro floyd: 3.47 Alk phos: 187 CRP: 258.6 WBC: 23.3 Abs neutr: 19.1 ESR: 84 Blood cultures from [place] on 08/14/21 came back positive for gram [...] Friends and Family: Not on file Attends Sikhism Services: Not on file Active Member of [...] Right femoral venous catheter noted. Medical Decision Alxlby-Htyodjau-Nsbqi: Result 2 of 2 This report contains more than one result. Contains abnormal data Culture, Blood 1 Order: [id number] Status: Final result Visible to patient: No (not released) Next appt: None Specimen Information: Blood 0 Result Notes Component 08/14/21 1205 Resulting Agency Specimen Description .BLOOD [facility] Special Requests RIGHT CVC 10ML [facility] Culture POSITIVE BLOOD CULTURE, RN NOTIFIED: [facility] [place] Culture DIRECT GRAM STAIN FROM BOTTLE: GRAM POSITIVE COCCI IN CLUSTERS [facility] [place] Culture STAPHYLOCOCCUS AUREUS This isolate is methicillin susceptible. Abnormal [facility] [place] Culture (NOTE) Direct Gram Stain from bottle result called to and read back by JENNIFER RICHTER RN AT [facility] 3 0119 08/15/2021 TB [facility] [place] Susceptibility Staphylococcus aureus (3) [...] data were reviewed Discussed with nursing Staff, case planner Infection Control and Prevention measures reviewed All prior entries were reviewed Administer medications as ordered Prognosis: Fair Discharge planning reviewed Follow up as outpatient. Thank you for allowing us to participate in the care of this patient. Please call with questions. Tita Martinez, MASTER MACHINIST - QUALITY CONTROL COORDINATOR ATTESTATION: I have discussed the case, including pertinent history and exam findings with the MASTER MACHINIST. I have evaluated the History, physical findings and pictures of the patient and the lea elements of the encounter have been performed by me. I have reviewed the laboratory data, other diagnostic studies and discussed them with the MASTER MACHINIST. I have updated the medical record where necessary. I agree with the assessment, plan and orders as documented by the MASTER MACHINIST. Eulogio Manzo MD. Pager: - Office: * [...] prescribed to be a poor historian at [facility]. Patient reported that the pain was [...] level of care. Patient was sent to [facility] for possible orthopedic surgery and septic management. Patient did have a central line placed in the right femoral vein. Patient did receive a 30 mL/kg bolus along with vancomycin and Zosyn IV[facility] for leukocytosis of 17.1, CRP of 249.9, ESR 66, along with UTI. Blood cultures that time were pending. Upon [facility] patient was found to have dry mucous membranes, severe pain along the right-sided shoulder and hip and severe mottling on the bilateral lower extremities along with the left aspect of the upper extremities. Lab work at [facility] was concerning for a CRP of 258.6, [...] cultures did grow out gram-positive cocci from [facility]. OVERNIGHT EVENTS: Patient went to the [...] Result Unsuccessful fluoroscopic-guided lumbar puncture in the stdk-akrb-fgnd decubitus position, as above. IR ARTHR/ASP/INJ MAJOR [...] CT THORACIC SPINE WO CONTRAST Final Result Flls-dz-cbbxgnno compression fracture of the T4 vertebral body, [...] PROPHYLAXIS: Stress ulcer: [] PPI Agent [] O1Caapg [] Sucralfate [] Other [x] None VTE: [...] shoulder and R hip Blood cultures from [place] grew back gram-positive cocci in clusters per [...] if patient requires rehab requesting close to [facility] as that is where her son lives [...] this chart was generated using voice recognition [employer] dictation software. Although every effort was made to ensure the accuracy of this automated hadoop admin, some errors in hadoop admin may have occurred. * Tio Bernal DO [...] Tio Bernal DO Orthopedic Surgery Resident PGY-1 [place], [place] * Lisa De La Rosa RN - 08/16/2021 10:13 PM EDT Xray done at bedside * Evie Jordan - 08/16/2021 4:35 PM EDT Echo completed at patient bedside. * Eulogio Manzo MD - 08/16/2021 1:20 PM EDT [facility] - Progress Note Today's Date and [...] 08/16/21 Medical Decision Making/Summary/Discussion:08/16/2021 Infection Control Recommendations [place] Precautions Antimicrobial Stewardship Recommendations Simplification of therapy [...] fall in June 2021, initially presented to [facility] ED on 08/14/21 with complaints [...] and Vancomycin. The patient [facility] for a higher level of care. Abnormal lab findings at [facility] included: Lactic: 2.8 Pro floyd: 3.47 Alk phos: 187 CRP: 258.6 WBC: 23.3 Abs neutr: 19.1 ESR: 84 Blood cultures from [place] on 08/14/21 came back positive for gram [...] mg IntraVENous Q12H ceFAZolin 2,000 mg IntraVENous Lead Security Officer to OR sodium chloride flush 5-40 [...] Friends and Family: Not on file Attends Sikhism Services: Not on file Active Member of [...] Right femoral venous catheter noted. Medical Decision Twolhq-Qimufuvq-Dfixg: Medical Decision Making-Other: Note: Labs, medications, radiologic studies were reviewed with personal review of films Large amounts of data were reviewed Discussed with nursing Staff, case planner Infection Control and Prevention measures reviewed All prior entries were reviewed Administer medications as ordered Prognosis: Guarded Discharge planning reviewed Follow up as outpatient. Thank you for allowing us to participate in the care of this patient. Please call with questions. Tita Martinez, MASTER MACHINIST - QUALITY CONTROL COORDINATOR ATTESTATION: I have discussed the case, including pertinent history and exam findings with the MASTER MACHINIST. I have evaluated the History, physical findings and pictures of the patient and the lea elements of the encounter have been performed by me. I have reviewed the laboratory data, other diagnostic studies and discussed them with the MASTER MACHINIST. I have updated the medical record where necessary. I agree with the assessment, plan and orders as documented by the MASTER MACHINIST. Eulogio Manzo MD. Pager: - Office: * Holli Llanes [facility] - 08/16/2021 11:28 AM EDT [facility] Pharmacokinetic Monitoring Service - Vancomycin [...] from the original note were not included. [facility] Occupational Therapy Not Seen Note DATE: [...] prescribed to be a poor historian at [facility]. Patient reported that the pain was [...] level of care. Patient was sent to [facility] for possible orthopedic surgery and septic management. Patient did have a central line placed in the right femoral vein. Patient did receive a 30 mL/kg bolus along with vancomycin and Zosyn IV. Patient's lab work was concerning for leukocytosis of 17.1, CRP of 249.9, ESR 66, along with UTI. Blood cultures that time were pending. Upon arrival at [facility] ER patient was found to have dry mucous membranes, severe pain along the right-sided shoulder and hip and severe mottling on the bilateral lower extremities along with the left aspect of the upper extremities. Lab work at [facility] ER was concerning for a [...] cultures did grow out gram-positive cocci from [facility]. OVERNIGHT EVENTS: No acute events overnight [...] mg IntraVENous Q12H ceFAZolin 2,000 mg IntraVENous Lead Security Officer to OR sodium chloride flush 5-40 [...] Result Unsuccessful fluoroscopic-guided lumbar puncture in the gqme-kmkx-uyzb decubitus position, as above. IR ARTHR/ASP/INJ MAJOR [...] CT THORACIC SPINE WO CONTRAST Final Result Hlty-fe-hnxnrzmy compression fracture of the T4 vertebral body, [...] PROPHYLAXIS: Stress ulcer: [] PPI Agent [] B2Sfkok [] Sucralfate [] Other [x] None VTE: [...] shoulder and R hip Blood cultures from [place] grew back gram-positive cocci in clusters per [...] if patient requires rehab requesting close to [facility] as that is where her son lives [...] this chart was generated using voice recognition [employer] dictation software. Although every effort was made to ensure the accuracy of this automated hadoop admin, some errors in hadoop admin may have occurred. * Earnest Gooden RN - 08/15/2021 11:44 AM EDT Patient to IR with RN, assisted to table in supine position. Dr. Siva CARTAGENA/VIVEK RTs at bedside. Site prepped and draped for right shoulder aspirate. Access obtained and scant amount serosang fluid obtained. Specimens collected and to be sent to lab by director underwriter sales. Access removed and band aid placed to site. Patient assisted to left side, site prepped and draped for LP. Unable to obtained access for LP. Patient also unable to lay in prone position. Assisted back to bed and patient transported back to room with primary RN. * Stephani Wallace OT - 08/15/2021 9:53 AM EDT Images from the original note were not included. [facility] Occupational Therapy Not Seen Note DATE: [...] prescribed to be a poor historian at [facility]. Patient reported that the pain was [...] level of care. Patient was sent to [facility] for possible orthopedic surgery and septic management. Patient did have a central line placed in the right femoral vein. Patient did receive a 30 mL/kg bolus along with vancomycin and Zosyn IV. [facility] lab work was concerning for leukocytosis of 17.1, CRP of 249.9, ESR 66, along with UTI. Blood cultures that time were pending. Upon arrival at [facility] ER patient was found to have dry mucous membranes, severe pain along the right-sided shoulder and hip and severe mottling on the bilateral lower extremities along with the left aspect of the upper extremities. Lab work at [facility] was concerning for a CRP of 258.6, [...] cultures did grow out gram-positive cocci from [facility]. This morning patient has had poor [...] PROPHYLAXIS: Stress ulcer: [] PPI Agent [] V0Wfkjd [] Sucralfate [] Other [x] None VTE: [...] this chart was generated using voice recognition [employer] dictation software. Although every effort was made to ensure the accuracy of this automated hadoop admin, some errors in hadoop admin may have occurred. * Van Yanna Kraft [...] with any questions . * Holli Llanes [facility] - 08/14/2021 7:42 PM EDT [facility] Pharmacokinetic Monitoring Service - Vancomycin [...] Nasal Swab: N/A. Non-respiratory infection. Transfer from [facility] with concern for septic arthritis [...] 08/14/2021 7:39 PM documented in this encounterBON [facility] Phone: [phone]) 631-541105-30-2022 Hospital Discharge instructions* Discharge Instr - CLAIRE* [...] Primary Emergency Contact: Branden Lucero Address: [address] [place] [address] Relation: Child Secondary Emergency Contact: Geremias Gann Address: [address] [place] [address] Relation: Other Past Surgical History: Past Surgical History: Procedure Laterality Date CT ASP ABS HEMATOMA BULLA CYST 08/17/2021 CT ASP ABS HEMATOMA BULLA CYST 08/17/2021 Jonathan Osorio MD [facility]VZ CT SCAN Immunization History: There is no immunization history on file for this patient. Active Problems: Patient Active Problem List Diagnosis Code Septicemia ([facility]) A41.9 Pyogenic arthritis of right shoulder region ([facility] [facility]) M00.9 Acute cystitis without hematuria N30.00 MSSA bacteremia R78.81, B95.61 Volume overload E87.70 Constipation K59.00 Physical debility R53.81 Morbid obesity ([facility]) E66.01 Isolation/Infection: Isolation No Isolation Patient [...] Dependent Dressing Dependent Toileting Dependent Feeding Assisted Travograph Operator Assisted Med Delivery whole Wound Care Documentation [...] Discharging to Facility/ Agency Name: Address: [facility] Details Fax [address] [facility] [address] Phone: Fax: Dialysis Facility (if applicable) Name: Address: Dialysis Schedule: Phone: Fax: Lithograph Press Operator Tinware/Director Of In Service Education signature: PHYSICIAN SECTION Prognosis: Fair Condition at Discharge: Stable Rehab Potential (if transferring to Rehab): Fair Recommended Labs or Other Treatments After Discharge: Physician Certification: I certify the above information and transfer of Miriam German is necessary for the continuing treatment of the diagnosis listed and that she requires Long-Term Facility for less 30 days. Update Admission H&P: No change in H&P PHYSICIAN SIGNATURE: * Additional Instructions* Dilan Jerome MD - 08/15/2021 Follow up with PCP and rheumatology for penitentiary care of your rheumatoid arthritis [facility] Phone: [phone] 493-956305-28-2022 NotePROCEDURE: CT-GUIDED PUBIC SYMPHYSIS ASPIRATION 08/17/2021 HISTORY: [...] the procedure including risks, benefits, and alternatives. Truxton protocol was observed. Sterile gowns, masks, hats [...] Signed by: Jonathan Osorio MD 08/17/21 [facility]22 NotePROCEDURE: CT-GUIDED PUBIC SYMPHYSIS ASPIRATION [...] the procedure including risks, benefits, and alternatives. Truxton protocol was observed. Sterile gowns, masks, hats [...] left the department stable condition. EBL: None. [id number] Note [facility] Vascular Upper Extremities Veins Procedure Patient Name FRANCISCO J Date of Study 08/15/2021 MIRIAM Ragsdale Date of 1955 Gender Female Age 66 year(s) Race Room Number 4716 Corporate ID [id number] # Patient Acct [id number] # MR # [id number] Lawn Care Technician Laura Tavares RVT, RDMS Interpreting Erasmo [...] + Doppler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
[2023-03-23] MEDS: IPRATROPIUM/ALBUTEROL SULFATE 3 ML AMPUL.NEB IH (13:49)
[2023-03-23 14:17] LABS: pH VBG 7.464 (7.330-7.430)
[2023-03-23 14:18] LABS: PCO2 VBG 35.2 mmHg (40.0-52.0)
--- NOTE | 2023-03-23 14:45 | ECG_ITS ---
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1955 Requested By: Dennis Donahue Order Number: [id number] Reading MD: DENNIS DONAHUE Measurements Intervals [place] Rate: 74 P: 16 WI: 124 QRS: -8 QRSD: 74 T: 33 QT: 316 QTc: 344 Interpretive Statements 1100 Sinus rhythm 1474 with frequent supraventricular premature complexes 2420 RSR (QR) in lead V1/V2, consistent with right ventricular conduction delay 3624 Possible inferior myocardial infarction, age undetermined [address] depression 5222 Moderate voltage criteria for LVH, may be normal variant 8102 Low QRS voltage in chest leads 8305 Short QTc interval 9150 abnormal ECG Electronically Signed On 03-23-2023 17:43:40 EST by DENNIS DONAHUE
[2023-03-23] MEDS: METHYLPREDNISOLONE SOD SUCC PF 125 MG/2 ML VIAL 60 MG IVP ×2 (17:32→23:45)
[2023-03-23] MEDS: LEVOFLOXACIN IN DEXTROSE 5 % 750 MG/150 ML IV.SOLN 100 MG IV (17:33)
[2023-03-23] MEDS: TRAMADOL HCL 50 MG TABLET PO (17:33)
[2023-03-23] MEDS: 0.9 % SODIUM CHLORIDE 250 ML 10 ML IV (17:34)
[2023-03-24] VITALS (23 sets, daily range): BP systolic 133–147; BP diastolic 68–93; PULSE 88–101; RESP 12–32; TEMP 36.6–37.1; O2SAT 79–100
[2023-03-24] MEDS: METHYLPREDNISOLONE SOD SUCC PF 125 MG/2 ML VIAL 60 MG IVP ×4 (05:03→23:10)
[2023-03-24 05:56] LABS: Basophils Percent Auto 0.5 % (0.2-2.0); Hematocrit 38.5 % (36.0-48.0); Hemoglobin 12.9 g/dL (12.0-16.0); Immature Granulocytes Abs Auto 0.23 10^3/uL (0.00-0.03); Immature Granulocytes Pct Auto 3.1 % (0.0-0.5); Lymphocytes Absolute Auto 0.5 10^3/uL (1.2-3.8); Mean Corpuscular HGB Conc 33.5 g/dL (29.9-35.2); Mean Corpuscular Hemoglobin 30.9 pg (26.7-34.0); Mean Corpuscular Volume 92.3 fL (81.0-99.0); Mean Platelet Volume 10.4 fL (9.5-13.5); Monocytes Absolute Auto 0.2 10^3/uL (0.3-0.8); Monocytes Percent Auto 2.4 % (1.7-12.0); Neutrophils Absolute Auto 6.5 10^3/uL (1.4-6.5); Platelet Count 126 10^3/uL (150-450); Red Blood Count 4.17 10^6/uL (4.20-5.40); Red Cell Distribution Width 14.6 % (11.0-15.0); White Blood Count 7.4 10^3/uL (4.0-11.0)
[2023-03-24 06:18] LABS: Anion Gap 15.2; BUN Creatinine Ratio 44.2; Calcium 10.4 mg/dL (8.5-10.1); Carbon Dioxide 26.4 mmol/L (21.0-32.0); Chloride 98 mmol/L (98-107); Estimated GFR (African America >60 (>=60); Estimated GFR (Non-African Ame >60 (>=60); Glucose 134 mg/dL (74-106); Potassium 3.6 mmol/L (3.5-5.1); Sodium 136 mmol/L (136-145)
[2023-03-24] MEDS: CHOLECALCIFEROL (VITAMIN D3) 25 MCG/1,000 UNITS TABLET 50 MCG PO (08:47)
[2023-03-24] MEDS: OMEPRAZOLE 20 MG CAPSULE.DR PO (08:48)
[2023-03-24] MEDS: AMLODIPINE BESYLATE 5 MG TABLET PO (08:48)
--- NOTE | 2023-03-24 12:02 | CM.NOTE ---
Rounds made with Dr. Foss. No plan for discharge today.
--- NOTE | 2023-03-24 14:22 | P.HP_ITS ---
<Statement entered by David Foss MD - 03/24/23 19:17> Patient seen and examined, agree with assessment and plan below. Sent to ER from SNF with hypoxia and worsening SOB. Placed on NRB then vapotherm. Found pneumonia and started antibiotics and steroids. Covid positive 03.17 and resumed paxlovid. Worsening hypoxia and placed on BiPAP. Patient is DNRCC Diagnosis: 1. Pneumonia 2. Covid-19 3. Acute hypoxic respiratory failure 4. HTN 5. RA H&P: HPI History of Present Illness Chief complaint: Acute Respiratory failure with Hypoxemia Narrative: 03/24/23 1030 This is a 67-year-old female patient who is a resident of a local SNF with a past medical history as outlined below including right hemiparesis and bedbound, odontoid fracture following outpatient with [facility], CANDYIDLisa herrera; who reported to the ED from the SNF yesterday mid-day due to severe dysp lester and hypoxia. She reports being tested for COVID-19 on 03/15/2023 and was negative. On 03/17/2023 she developed a sore throat and mild increase shortness of breath and was retested for COVID and was found to be positive. Over the next several days she had increased nausea and vomiting and onset of severe shortness of breath. She denies fevers or chills. She was found to be hypoxic at the assisted yesterday with an O2 sat below 80% on room air and was sent to the ED for further evaluation. Workup in the ED confirmed significant hypoxia and a chest x-ray revealed bilateral airspace opacities consistent with atypical infection versus edema. Patient was notably wheezing on exam in the ED. She was admitted yesterday evening to the hospitalist service as an inpatient due to COVID-19 pneumonia and acute respiratory failure. At the time of my exam the patient is sitting up in a high Fowlers position. As she is dyspneic at rest with mild tachypnea and only able to complete 2-3 word sentences. Nursing has been unable to maintain her O2 saturations Asians even on Vapotherm without surgical mask being applied over top of the Vapotherm for rebreathing. The patient reports that her dyspnea is worsening during my exam. The patient is a DNR CC but we discussed whether she would want to attempt BiPAP therapy and she states that she would. Patient is being initiated on BiPAP and we will monitor her response. Review of Systems ROS Status of ROS 10 or more systems reviewed and unremark able except as noted in history and below [facility] Medical History (Updated 03/24/23 @ 14:34 by Tita Fontaine NP) Rheumatoid arthritis ?M06.9 - Rheumatoid arthritis, unspecified (ICD-10) Hypertension ?I10 - Essential (primary) hypertension (ICD-10) Back pain ?M54.9 - Dorsalgia, unspecified (ICD-10) COVID-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 ?U09.9 - Post COVID-19 condition, unspecified (ICD-10) Weakness of right arm ?R29.898 - Other symptoms and signs involving the musculoskeletal system (ICD-10) Right arm numbness ?R20.0 - Anesthesia of skin (ICD-10) Headache ?R51.9 - Headache, unspecified (ICD-10) D-dimer, elevated ?R79.89 - Other specified abnormal findings of blood chemistry (ICD-10) Right hemiparesis ?G81.91 - Hemiplegia, unspecified affecting right dominant side (ICD-10) Bedbound ?Z74.01 - Bed confinement status (ICD-10) Odontoid fracture ?S12.110A - Anterior displaced Type II dens fracture, initial encounter for closed fracture (ICD-10) Pelvic fracture ?S32.9XXA - Fracture of unspecified parts of lumbosacral spine and pelvis, initial encounter for closed fracture (ICD-10) Sepsis ?A41.9 - Sepsis, unspecified organism (ICD-10) Pneumonitis ?J18.9 - Pneumonia, unspecified organism (ICD-10) Surgical History (Updated 01/23/23 @ 17:31 by Preethi Neal) H/O cervical spine surgery ?Z98.890 - Other specified postprocedural states (ICD-10) History of arthroplasty of right ankle ?Z98.890 - Other specified postprocedural states (ICD-10) Family History (Updated 01/23/23 @ 17:33 by Preethi Neal) Mother Family history of CHF (congestive heart failure) Family history of hypertension Family history of myocardial infarction Father Family history of hypertension Family history of myocardial infarction Grandfather Family history of hypertension Family history of myocardial infarction Grandmother Family history of hypertension Family history of myocardial infarction Social History (Updated 03/23/23 @ 13:49 by Glenda Matute LPN) Within the past year, how often did you have a drink containing alcohol: never Within the past year, how often did you have six or more drinks on one occasion: never Score interpretation: A score less than 3 is consistent with normal alcohol consumption. Smoking status: Former smoker Non-prescribed substance use: denies use Known occupational exposures/hazards: No Highest level of school completed/degree received: high school graduate In a typical week, how many times do you talk on the telephone with family, friends, or neighbors: 3 or more times per week How often do you get together with friends or relatives: 3 or more times per week Little interest or pleasure in doing things: not at all Feeling down, depressed, or hopeless: not at all Feel stressed/tense/nervous/anxious/difficulty sleeping: not at all Do you think of yourself as: straight/heterosexual Gender Identity: female Meds Home Medications and Allergies Home Medications Medication Instructions Recorded Confirmed Type levofloxacin 500 mg tablet 500 mg PO Q24H 09/03/22 03/23/23 History prednisone 10 mg tablet 10 mg PO TID 09/03/22 03/23/23 History amlodipine 2.5 mg tablet 5 mg PO DAILY 09/06/22 03/23/23 History acetaminophen 500 mg capsule 1,000 mg PO Q8H PRN pain 01/23/23 03/23/23 History cholecalciferol (vitamin D3) 50 50 mcg PO DAILY 01/23/23 03/23/23 History mcg (2,000 unit) capsule cyanocobalamin (vitamin B-12) 1,000 mcg PO DAILY 01/23/23 03/23/23 History 1,000 mcg capsule omeprazole 20 mg capsule,delayed 20 mg PO DAILY 01/23/23 03/23/23 History release albuterol sulfate 2.5 mg/3 mL 2.5 mg inhalation Q4H PRN 03/23/23 03/23/23 History (0.083 %) solution for nebulization shortness of breath or wheezing calcium carbonate 400 mg calcium 400 mg PO Q4H PRN heartburn 03/23/23 03/23/23 History (1,000 mg) chewable tablet (Tums Ultra) nystatin 100,000 unit/gram topical 1 applic topical BID PRN YEAST 03/23/23 03/23/23 History powder (Nystop) INFECTION/REDNESS tramadol 50 mg tablet 50 mg PO BID PRN pain 03/23/23 03/23/23 History Allergies Allergy/AdvReac Type Severity Reaction Status Date / Time No Known Drug Allergies Allergy Verified 09/03/22 17:18 Exam Constitutional Vital Signs, click to edit/add: Last Vital Signs Temp 98.7 F 03/24/23 13:44 Pulse 90 03/24/23 13:44 Resp 18 03/24/23 13:44 BP 140/93 H 03/24/23 13:44 Pulse Ox 96 03/24/23 14:00 O2 Del Method BIPAP 03/24/23 13:44 O2 Flow Rate 40 03/24/23 09:09 FiO2 100 03/24/23 11:40 Common normals: no apparent distress, oriented x3, alert and well nourished General appearance: cooperative Orientation/consciousness: Yes awake HENMT Common normals: normocephalic, head/scalp atraumatic, hearing grossly normal bilaterally, external nose normal and moist oral mucous membranes Eye Common normals: PERRL, EOMs intact bilaterally, conjunctivae normal and no scleral icterus Alignment: alignment normal Eyelid: eyelids normal Neck & C-Spine Common normals: full ROM, supple and no JVD Chest Common normals: inspection of chest normal Chest: symmetrical chest wall rise Respiratory Common normals: no retractions Effort & inspection: tachypneic and uses accessory muscles (mild); not able to speak in complete sentences (2-3 words only) Auscultation: rales (BLL, fine rales) and diminished lung sounds (Very tight, diminished throughout) Other: Sats fall to 81% on vapotherm if surgical mask is removed. Cardio Common normals: no JVD, regular rhythm, S1 normal heart sound, S2 normal heart sound, no gallops, no clicks, no murmurs, no rub and peripheral pulses 2+ throughout Rate: tachycardic GI Common normals: Normal to inspection, nondistended, normoactive bowel sounds present, soft to palpation, non-tender, no hepatosplenomegaly, no masses and no bruits Palpation: tender (mild upper abdomen, suspect msk d/t increased respiratory effort) Bladder/kidney exam: bladder normal to palpation Extremity Common normals: normal capillary refill and no pedal edema General: normal exam except as noted and edema (Trace bilat insteps); no clubbing and no cyanosis Neuro [place] Coma Scale: GCS not evaluated Common normals: CN's II-XII intact bilaterally, moves all extremities, no focal motor deficits and no sensory deficits noted Speech: speech normal Motor exam: strength 5/5 throughout Psych Common normals: mental status grossly normal, thought process normal, affect normal and activity/motor behavior normal Results Labs Labs: Short CBC 03/24/23 Range/Units 05:19 WBC 7.4 (4.0-11.0) 10^3/uL Hgb 12.9 (12.0-16.0) g/dL Hct 38.5 (36.0-48.0) % Plt Count 126 L (150-450) 10^3/uL BMP 03/24/23 05:19 Sodium 136 Potassium 3.6 Chloride 98 Carbon Dioxide 26.4 BUN 23.0 H Creatinine 0.52 L Glucose 134 H Calcium 10.4 H ABG ABG results: 03/23/23 13:10 VBG pH 7.464 H VBG pCO2 35.2 L Pulse Oximetry Attestation: I have reviewed the pertinent pulse oximetry results. Assessment and Plan Assessment and Plan (1) Pneumonia due to COVID-19 virus: Assessment and Plan: ACUTE * Adm inpatient * Plan more than a 2 midnight stay for inpatient medically necessary services * Continue paxlovid course as initiated at the local SNF * Continue IVPB Levofloxacin for possible secondary bacterial pneumonia in setting of COPD at baseline and [facility]ast[facility] living environment * Continue PRN HFA albuterol. Add scheduled duonebs q4h * Solumedrol IVP 125 x 1 given in ED, continue with 60 mg q6h * On high flow Vapotherm overnight but pt's respiratory status continues to deteriorate * Change to Bipap w/ RT to titrate to keep sats above 90% 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 * O2 via vapotherm/bipap to keep sats above 90% * Consider pulmonology consult pending clinical course * Consider hospice consult pending clinical course (3) Hypertension: Assessment and Plan: CHRONIC * Continue home amlodipine, Qualifiers: Hypertension type: primary hypertension Qualified Code(s): I10 - Essential (primary) hypertension (4) Rheumatoid arthritis: Assessment and Plan: CHRONIC * Continue home PRN tramadol/tylenol * Not taking immune modulating medications at baseline Qualifiers: Rheumatoid arthritis location: multiple sites Rheumatoid factor p resence: with rheumatoid factor Qualified Code(s): M05.79 - Rheumatoid arthritis with rheumatoid factor of multiple sites without organ or systems involvement (5) Odontoid fracture: Assessment and Plan: CHRONIC * Defer to outpatient management at [facility] * Maintain cervical collar Qualifiers: Encounter type: sequela Fracture type: closed Qualified Code(s): S12.100S - Unspecified displaced fracture of second cervical vertebra, sequela Urinary Catheter Management Urinary Catheter Management Urethral: Cath placed during this visit: yes Urethral indwelling: Yes Reason for continuing: prolonged immobilization Insertion date: 03/23/23 Insertion time: 23:51
--- NOTE | 2023-03-24 14:41 | CM.NOTE ---
Modesta called from [facility] for update on pt, faxed clinical updates to [facility].
[2023-03-24] MEDS: IPRATROPIUM/ALBUTEROL SULFATE 3 ML AMPUL.NEB IH ×3 (14:56→23:04)
--- NOTE | 2023-03-24 16:18 | CM.NOTE ---
Pt having respiratory distress and on BIPAP. Case Management will evaluate pt tomorrow.
[2023-03-24] MEDS: 0.9 % SODIUM CHLORIDE 250 ML 10 ML IV (17:01)
[2023-03-24] MEDS: LEVOFLOXACIN IN DEXTROSE 5 % 750 MG/150 ML IV.SOLN 100 MG IV (17:01)
[2023-03-24] MEDS: LACTATED RINGER'S SOLUTION 1,000 ML 100 ML IV (17:43)
[2023-03-24] MEDS: GUAIFENESIN 600 MG TAB.ER.12H PO (20:03)
[2023-03-24] MEDS: ONDANSETRON PF 4 MG/2 ML VIAL IV (20:07)
[2023-03-25] VITALS (21 sets, daily range): BP systolic 117–147; BP diastolic 72–88; PULSE 83–101; RESP 12–40; TEMP 36.1–36.7; O2SAT 77–99; BMI 27.3
[2023-03-25] MEDS: LACTATED RINGER'S SOLUTION 1,000 ML 100 ML IV (03:48)
[2023-03-25] MEDS: IPRATROPIUM/ALBUTEROL SULFATE 3 ML AMPUL.NEB IH ×2 (03:58→07:48)
[2023-03-25 04:56] LABS: Basophils Percent Auto 0.3 % (0.2-2.0); Hematocrit 37.8 % (36.0-48.0); Hemoglobin 12.6 g/dL (12.0-16.0); Immature Granulocytes Abs Auto 0.14 10^3/uL (0.00-0.03); Immature Granulocytes Pct Auto 2.1 % (0.0-0.5); Lymphocytes Absolute Auto 0.6 10^3/uL (1.2-3.8); Lymphocytes Percent Auto 8.5 % (20.5-60.0); Mean Corpuscular HGB Conc 33.3 g/dL (29.9-35.2); Mean Corpuscular Hemoglobin 30.8 pg (26.7-34.0); Mean Corpuscular Volume 92.4 fL (81.0-99.0); Mean Platelet Volume 9.7 fL (9.5-13.5); Monocytes Absolute Auto 0.2 10^3/uL (0.3-0.8); Monocytes Percent Auto 2.7 % (1.7-12.0); Neutrophils Absolute Auto 5.8 10^3/uL (1.4-6.5); Neutrophils Percent Auto 86.4 % (43.0-75.0); Platelet Count 120 10^3/uL (150-450); Red Blood Count 4.09 10^6/uL (4.20-5.40); Red Cell Distribution Width 14.2 % (11.0-15.0); White Blood Count 6.7 10^3/uL (4.0-11.0)
[2023-03-25 04:59] LABS: Anion Gap 11.8; BUN Creatinine Ratio 42.9; Calcium 10.9 mg/dL (8.5-10.1); Carbon Dioxide 26.1 mmol/L (21.0-32.0); Chloride 99 mmol/L (98-107); Estimated GFR (African America >60 (>=60); Estimated GFR (Non-African Ame >60 (>=60); Glucose 121 mg/dL (74-106); Potassium 3.9 mmol/L (3.5-5.1); Sodium 133 mmol/L (136-145)
[2023-03-25] MEDS: METHYLPREDNISOLONE SOD SUCC PF 125 MG/2 ML VIAL 60 MG IVP ×3 (05:01→18:14)
--- NOTE | 2023-03-25 07:30 | XR_ITS ---
The [address] [address] Patient Name: ORTEGA MARX MRN: [id number] date: 1955 Sex: F Assigned Patient Location: [place] Current Patient Location: [place] Accession/Order Number: [id number] Exam Date: 03/25/2023 07:40 Report Date: 03/25/2023 08:03 At the request of: BARBARA DOUGLAS Procedure: XR chest 1V EXAM: XR chest 1V HISTORY: hypoxia, SOB COMPARISON: 03/23/2023 TECHNIQUE: AP portable erect FINDINGS: LUNGS: Moderate bilateral diffuse parenchymal infiltrates, left greater than right. Minimally improved VASCULATURE: No increased pulmonary vasculature. PLEURA: No pneumothorax, effusion, or pleural thickening. CARDIAC: No cardiomegaly or cardiac silhouette abnormality. MEDIASTINUM: No visible mass or adenopathy. BONES: No fracture or visible bone lesion. OTHER: Negative. XR/XR chest 1V IMPRESSION: Bilateral parenchymal infiltrates, left greater than right, minimally improved. Consider an atypical pneumonia Electronically authenticated by: COLLETTE ELIZONDO Date: 03/25/2023 08:03
--- NOTE | 2023-03-25 10:27 | PT.DAILY ---
Physical Therapy Daily Note PT Daily Note/Assess Start: 03/25/23 10:26 Freq: Status: Active Protocol: Document 03/25/23 10:26 LINDA (Rec: 03/25/23 10:27 LINDA [id number]) Visit Not Completed Visit Not Completed Visit Not Completed Due to: Inability to participate, Nursing request to hold Other Reason Visit Not Completed Nursing request hold due to pt being on comfort care and full bipap. Wished to let pt rest at this time. Physical Therapy Daily Note/Assessment Time In/Time Out Time In 09:30 Time Out 09:30 GG. Functional Abilities and Goals-Complete for Swing Bed Patients Only [id number]. Self-Care [id number]. Mobility
--- NOTE | 2023-03-25 10:37 | CM.NOTE ---
Updates sent to [facility].
--- NOTE | 2023-03-25 10:48 | CM.NOTE ---
Rounding with Dr. Foss. OT at patient's bedside. Pt. is on BiPAP at this time. Discussed treatment for COVID. No anticipated discharge today. RN discussed patient is not taking meds and has refused. Dr. Foss discussed the importance of this with patient.
[2023-03-25] MEDS: CHOLECALCIFEROL (VITAMIN D3) 25 MCG/1,000 UNITS TABLET 50 MCG PO (10:57)
[2023-03-25] MEDS: AMLODIPINE BESYLATE 5 MG TABLET PO (10:57)
[2023-03-25] MEDS: LORAZEPAM 0.5 MG TABLET PO (10:57)
[2023-03-25] MEDS: OMEPRAZOLE 20 MG CAPSULE.DR PO (10:58)
--- NOTE | 2023-03-25 11:16 | CM.NOTE ---
Spoke with pt and Dr. Foss, pt requesting to go home with around the clock care givers. Dr. Foss explained to pt that she would return to [facility] upon discharge. She is shelter at [facility]. If pt would like to have around the clock care at home her family would be responsible for setting that up and being in agreement with pt returning home. Pt verbalizes understanding. Important Message From Medicare discussed with pt, pt verbalizes understanding and consent to RN to sign form for her. Original given to pt and copy placed in pt's chart.
[2023-03-25] MEDS: LACTATED RINGER'S SOLUTION 1,000 ML 125 ML IV ×2 (13:29→21:07)
--- NOTE | 2023-03-25 13:58 | P.PN_ITS ---
<Statement entered by David Foss MD - 03/25/23 20:48> Patient seen and examined, agree with assessment and plan below. Continues to have severe SOB and chest tightness. On BiPAP for hypoxia and noted to have increased respirations. Continue antibiotics and steroids. Diagnosis: 1. Pneumonia 2. Covid-19 3. Acute hypoxic respiratory failure 4. HTN 5. RA Progress Note: Subjective Subjective Interval history: 03/25/23 1025 The pt is resting in bed in a semi-reclined position. Her respiratory status is improved on BiPAP support but she exhibits intermittent shallow, rapid respirations. Although the pt denies anxiety, her rapid respirations correspond with querulous behavior and hyperfocus on her various health concerns, thus clinically suspected to reflect anxiety behavior. Her sats are stable on BiPAP support and the RT plans to trial vapotherm support again shortly to allow the pt to eat and take her medications. The pt c/o of worsening chronic pain to her shoulders, chest wall, and arms that she associates with her known odontoid fracture. We will attempt improved chronic pain control w/ adding low dose gabapentin and scheduled dosing of low dose Tramadol. We have also prescribed PRN anxiolytics for anxiety. Nursing notes poor urine output over 24 hrs despite adding IVFs yesterday. Increase rate to 125/hr for now and monitor output. Exam Constitutional Vital Signs, click to edit/add: Last Vital Signs Temp 97.2 F L 03/25/23 04:11 Pulse 85 03/25/23 07:51 Resp 18 03/25/23 04:11 BP 117/72 03/25/23 04:11 Pulse Ox 77 L 03/25/23 13:05 O2 Del Method Vapotherm 03/25/23 11:00 O2 Flow Rate 40 03/25/23 11:00 FiO2 100 03/25/23 11:00 Common normals: no apparent distress, oriented x3 and alert General appearance: cooperative Orientation/consciousness: Yes awake HENWA Common normals: normocephalic, head/scalp atraumatic and hearing grossly normal bilaterally Eye Common normals: PERRL, EOMs intact bilaterally, conjunctivae normal and no scleral icterus General eye: normal appearance of both eyes Chest Common normals: inspection of chest normal Chest: symmetrical chest wall rise Respiratory Common normals: no use of accessory muscles and clear to auscultation bilatera lly Effort & inspection: tachypneic (Intermittently. Assoc w/ anxiety) Auscultation: diminished lung sounds (BLL) Cardio Common normals: regular rate, regular rhythm, S1 normal heart sound, S2 normal heart sound, no murmurs and peripheral pulses 2+ throughout GI Common normals: Normal to inspection, nondistended, normoactive bowel sounds present, soft to palpation, non-tender and no hepatosplenomegaly Bladder/kidney exam: bladder normal to palpation Extremity Common normals: normal to inspection and no calf tenderness General: no clubbing, no cyanosis and no edema Neuro Common normals: CN's II-XII intact bilaterally, moves all extremities, no focal motor deficits and no sensory deficits noted Psych Common normals: mental status grossly normal Mood and affect: anxious and irritable Progress Note: Objective Labs Labs: Short CBC 03/25/23 Range/Units 04:30 WBC 6.7 (4.0-11.0) 10^3/uL Hgb 12.6 (12.0-16.0) g/dL Hct 37.8 (36.0-48.0) % Plt Count 120 L (150-450) 10^3/uL BMP 03/25/23 04:30 Sodium 133 L Potassium 3.9 Chloride 99 Carbon Dioxide 26.1 BUN 27.0 H Creatinine 0.63 Glucose 121 H Calcium 10.9 H Imaging Chest x-ray: Attestation: I have reviewed the pertinent imaging results. Radiologist's impression: IMPRESSION: Bilateral parenchymal infiltrates, left greater than right, minimally improved. Consider an atypical pneumonia Progress Note: A&P Assessment and Plan (1) Pneumonia due to COVID-19 virus: Assessment and Plan: ACUTE * Continue paxlovid to complete 5 day course - Covid pos 03/17/23 * Continue IVPB Levofloxacin for possible secondary bacterial pneumonia in setting of COPD at baseline and faith living environment * Continue PRN nebs w/ Xopenex. Pt refusing albuterol treatments stating they cause nausea. * Continue Solumedrol IVP 60 mg q6h * Continue BiPAP or Vapotherm O2 administration titrating to keep sats above 90% and relieve respiratory distress. 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 * O2 via vapotherm/bipap to keep sats above 90% * Consider pulmonology consult pending clinical course * Consider hospice consult pending clinical course (3) Anxiety about health: Assessment and Plan: ACUTE ON CHRONIC * Pt w/ multiple new health challenges in recent months (odontoid fx w/ R hemiparesis, transition to [facility] living, and now resp failure and COVID) * Add PRN Xanax for anxiety management (4) Oliguria: Assessment and Plan: ACUTE * D/T dehydration w/ poor oral intake 2/2 respiratory distress * LR at 100/hr initiated yesterday afternoon - increase to 125/hr today and monitor urine output (5) Severe protein-calorie malnutrition: Assessment and Plan: ACUTE ON CHRONIC * Photogrammetric Engineer notes 15% weight loss since August, flaccid director of accreditation, loss of appetite * Initiate Ensure BID (6) Hypertension: Assessment and Plan: CHRONIC * Continue home amlodipine Qualifiers: Hypertension type: primary hypertension Qualified Code(s): I10 - Essential (primary) hypertension (7) Rheumatoid arthritis: Assessment and Plan: CHRONIC * Continue home PRN tramadol/tylenol * Not taking immune modulating medications at baseline Qualifiers: Rheumatoid arthritis location: multiple sites Rheumatoid factor presence: with rheumatoid factor Qualified Code(s): M05.79 - Rheumatoid arthritis with rheumatoid factor of multiple sites without organ or systems involvement (8) Odontoid fracture: Assessment and Plan: CHRONIC * Defer to outpatient management at [facility] * Maintain cervical collar * Add low dose gabapentin and scheduled Tramadol BID for improved overall pain management of neuropathic pain Qualifiers: Encounter type: sequela Fracture type: closed Qualified Code(s): S12.100S - Unspecified displaced fracture of second cervical vertebra, sequela Urinary Catheter Management Urinary Catheter Management Urethral: Cath placed during this visit: yes Urethral indwelling: Yes Reason for continuing: prolonged immobilization Insertion date: 03/23/23 Insertion time: 23:51
--- NOTE | 2023-03-25 15:49 | PM.EN ---
Event Note Event Note: 03/25/23 3452 GOALS OF CARE: Informed by nursing that the pt is insisting she wants to be intubated if medically indicated. Discussed fully with the pt in her room. She is alert and oriented x 3. She confirms that she does not want CPR, but does want short term intubation if needed. She has discussed this with her son multiple times and he is aware of her wishes and knows that he would have to decide to withdraw care if she could not be weaned off of ventilator support after a reasonable interval of full respiratory support. A DNR-CCA form was filled out, signed, and showed to the pt. The pt is a hemiparetic and cannot sign the form. Nursing will sign the document as a verbal signature in the pt's presence on her behalf.
[2023-03-25] MEDS: LEVOFLOXACIN IN DEXTROSE 5 % 750 MG/150 ML IV.SOLN 100 MG IV (18:14)
--- NOTE | 2023-03-25 19:42 | PC.NURSE ---
Patient will be transferred to room 271 in ICU via bed oxygen and staff
[2023-03-25 20:28] LABS: ABG PCO2 39.1 mmHg (35.0-45.0); Allen Test POSITIVE (POSITIVE); Base Excess ABG 2.5 mmol/L (-2.0-2.0); HCO3 ABG 26.6 mmol/L (22.0-26.0); Oxygen Saturation ABG 96.8 %; PO2 ABG 74.4 mmHg (80.0-100.0); pH ABG 7.441 (7.350-7.450)
[2023-03-25 20:29] LABS: BIPAP Pressure 16/8; Fractionated Inspired Oxygen 60 %; O2 Mode BIPAP; Puncture Site L RADIAL; Rate 12
[2023-03-25] MEDS: GABAPENTIN 100 MG CAPSULE PO (21:07)
[2023-03-25] MEDS: LACTOSE -REDUCED (ENSURE ORIGINAL 237 ML LIQUID) PO (21:07)
[2023-03-25] MEDS: TRAMADOL HCL 50 MG TABLET PO (21:07)
[2023-03-26] VITALS (48 sets, daily range): BP systolic 116–144; BP diastolic 64–87; PULSE 72–97; RESP 12–44; TEMP 36.1–36.6; O2SAT 83–99
[2023-03-26] MEDS: METHYLPREDNISOLONE SOD SUCC PF 125 MG/2 ML VIAL 60 MG IVP ×4 (01:43→17:25)
[2023-03-26 05:04] LABS: Anion Gap 11.4; BUN Creatinine Ratio 51.1; Calcium 10.2 mg/dL (8.5-10.1); Carbon Dioxide 25.7 mmol/L (21.0-32.0); Chloride 100 mmol/L (98-107); Estimated GFR (African America >60 (>=60); Estimated GFR (Non-African Ame >60 (>=60); Glucose 84 mg/dL (74-106); Potassium 4.1 mmol/L (3.5-5.1); Sodium 133 mmol/L (136-145)
[2023-03-26] MEDS: LACTOSE -REDUCED (ENSURE ORIGINAL 237 ML LIQUID) PO (08:09)
[2023-03-26] MEDS: CHOLECALCIFEROL (VITAMIN D3) 25 MCG/1,000 UNITS TABLET 50 MCG PO (08:10)
[2023-03-26] MEDS: GUAIFENESIN 600 MG TAB.ER.12H PO (08:10)
[2023-03-26] MEDS: TRAMADOL HCL 50 MG TABLET PO ×2 (08:10→20:07)
[2023-03-26] MEDS: AMLODIPINE BESYLATE 5 MG TABLET PO (08:10)
[2023-03-26] MEDS: OMEPRAZOLE 20 MG CAPSULE.DR PO (08:10)
[2023-03-26] MEDS: LACTATED RINGER'S SOLUTION 1,000 ML 125 ML IV ×2 (08:16→20:06)
--- NOTE | 2023-03-26 10:48 | CM.NOTE ---
Rounding with Dr. Foss, pt on vapotherm at this time. Discussed weaning oxygen down today. OT at bedside for therapy, pt already refusing OT. Dr. Foss discussed importance of participating with therapy.
--- NOTE | 2023-03-26 11:38 | P.PN_ITS ---
Progress Note: Subjective Subjective Interval history: Patient feels better this am. Remains on BiPAP and tolerating with normal SpO2. Had discussion with P[employer]CEL[employer] E[employer]ELING SUPERVISOR yesterday and decided to change code status to DNRCC-A and would want short-term intubation if it would help. Mild cough. Still feels like not able to take deep breath. Afebrile. Decreased appetite but no emesis or diarrhea. No chest pain or palpitations. Exam Constitutional Vital Signs, click to edit/add: Last Vital Signs Temp 97.8 F 03/26/23 06:18 Pulse 86 03/26/23 10:00 Resp 20 03/26/23 08:00 BP 144/87 H 03/26/23 06:18 Pulse Ox 89 L 03/26/23 08:00 O2 Del Method BIPAP 03/26/23 06:18 O2 Flow Rate 40 03/26/23 02:57 FiO2 60 03/26/23 08:00 Documenting provider has reviewed patient's vital signs: yes Common normals: no apparent distress, oriented x3 and alert HENMT Common normals: normocephalic Eye Common normals: PERRL and EOMs intact bilaterally Respiratory Common normals: normal respiratory effort and clear to auscultation bilaterally Cardio Common normals: regular rate, regular rhythm, no gallops, no murmurs and no rub GI Common normals: Normal to inspection, nondistended, normoactive bowel sounds present and non-tender Extremity Common normals: no pedal edema Progress Note: Objective Labs Labs: [facility] 03/26/23 04:14 Sodium 133 L Potassium 4.1 Chloride 100 Carbon Dioxide 25.7 BUN 24.0 H Creatinine 0.47 L Glucose 84 Calcium 10.2 H Progress Note: A&P Assessment and Plan (1) Pneumonia: (2) COVID: (3) Acute respiratory failure with hypoxemia: (4) Hypertension: Qualifiers: Hypertension type: primary hypertension Qualified Code(s): I10 - Essential (primary) hypertension (5) Anxiety about health: (6) Odontoid fracture: Qualifiers: Encounter type: sequela Fracture type: closed Qualified Code(s): S12.100S - Unspecified displaced fracture of second cervical vertebra, sequela (7) Rheumatoid arthritis: Qualifiers: Rheumatoid arthritis location: multiple sites Rheumatoid factor presence: with rheumatoid factor Qualified Code(s): M05.79 - Rheumatoid arthritis with rheumatoid factor of multiple sites without organ or systems involvement (8) Severe protein-calorie malnutrition: Plan Patient slow to improve. Clear breath sounds but feels SOB and remains on BiPAP. Anxiety factoring into SOB. Use PEP several times an hour. Continue antibiotics and steroids. Continue PT/OT. Urinary Catheter Management Urinary Catheter Management Urethral: Cath placed during this visit: yes Urethral indwelling: Yes Reason for continuing: prolonged immobilization Insertion date: 03/23/23 Insertion time: 23:51
[2023-03-26 13:27] LABS: Basophils Percent Auto 0.3 % (0.2-2.0); Hematocrit 31.5 % (36.0-48.0); Hemoglobin 10.7 g/dL (12.0-16.0); Immature Granulocytes Abs Auto 0.22 10^3/uL (0.00-0.03); Immature Granulocytes Pct Auto 3.6 % (0.0-0.5); Lymphocytes Absolute Auto 0.3 10^3/uL (1.2-3.8); Lymphocytes Percent Auto 5.2 % (20.5-60.0); Mean Corpuscular Volume 91.3 fL (81.0-99.0); Mean Platelet Volume 9.4 fL (9.5-13.5); Monocytes Absolute Auto 0.2 10^3/uL (0.3-0.8); Monocytes Percent Auto 3.4 % (1.7-12.0); Neutrophils Absolute Auto 5.4 10^3/uL (1.4-6.5); Neutrophils Percent Auto 87.5 % (43.0-75.0); Platelet Count 112 10^3/uL (150-450); Red Blood Count 3.45 10^6/uL (4.20-5.40); White Blood Count 6.2 10^3/uL (4.0-11.0)
--- NOTE | 2023-03-26 13:48 | CM.NOTE ---
Updates sent to [facility].
[2023-03-26] MEDS: LEVOFLOXACIN IN DEXTROSE 5 % 750 MG/150 ML IV.SOLN 100 MG IV (17:25)
[2023-03-26] MEDS: ACETAMINOPHEN 500 MG TABLET 1000 MG PO (18:01)
--- NOTE | 2023-03-26 19:17 | RESP.RT ---
Pt complaining of BIPAP hurting her nose. Took BIPAP off and placed pt on Vapotherm 40L Fi02 100%.
[2023-03-27] VITALS (83 sets, daily range): BP systolic 123–134; BP diastolic 74–82; PULSE 73–104; RESP 12–44; TEMP 36.1–36.7; O2SAT 83–100
[2023-03-27] MEDS: METHYLPREDNISOLONE SOD SUCC PF 125 MG/2 ML VIAL 60 MG IVP ×4 (00:15→17:03)
--- NOTE | 2023-03-27 03:44 | RESP.RT ---
Took pt off of Vapotherm and placed pt back on BIPAP 05/11 Fi02 60% and Sp02 increased to 92%.
[2023-03-27] MEDS: LACTATED RINGER'S SOLUTION 1,000 ML 125 ML IV (05:17)
[2023-03-27] MEDS: ACETAMINOPHEN 500 MG TABLET 1000 MG PO ×2 (05:25→21:46)
[2023-03-27 06:25] LABS: Hematocrit 31.9 % (36.0-48.0); Hemoglobin 10.9 g/dL (12.0-16.0); Mean Corpuscular HGB Conc 34.2 g/dL (29.9-35.2); Mean Corpuscular Hemoglobin 30.9 pg (26.7-34.0); Mean Corpuscular Volume 90.4 fL (81.0-99.0); Mean Platelet Volume 10.1 fL (9.5-13.5); Platelet Count 111 10^3/uL (150-450); Red Blood Count 3.53 10^6/uL (4.20-5.40); Red Cell Distribution Width 13.9 % (11.0-15.0); White Blood Count 5.6 10^3/uL (4.0-11.0)
[2023-03-27 06:33] LABS: Anion Gap 6.8; BUN Creatinine Ratio 38.5; Calcium 9.6 mg/dL (8.5-10.1); Carbon Dioxide 28.5 mmol/L (21.0-32.0); Chloride 97 mmol/L (98-107); Estimated GFR (African America >60 (>=60); Estimated GFR (Non-African Ame >60 (>=60); Glucose 99 mg/dL (74-106); Potassium 3.3 mmol/L (3.5-5.1); Sodium 129 mmol/L (136-145)
[2023-03-27 06:38] LABS: Atypical Lymphocytes Abs Man 0.11; Lymphocytes Absolute Manual 0.16 10^3/uL (1.20-3.80); Monocytes Absolute Manual 0.22 10^3/uL (0.30-0.80); Segmented Neut Absolute Manual 5.09 10^3/uL (1.4-6.5)
--- NOTE | 2023-03-27 09:13 | CM.NOTE ---
Addendum entered by Monica Herrmann 03/27/23 09:26: After further discussion with patient, she vocalizes to Dr. Foss she does not want to return to [facility] and that she wants to go home with 24 hour care. Asked patient we would like to have proof of this plan for safe discharge to home with 24 hour care. RN Jose reports he spoke with son this morning and he states they all work. I will attempt to contact son Branden per patients request as she states her and her family have a plan in place for 24 hour care at home. I will make this phone call after I am done rounding with Dr. Foss later this AM. Original Note: Rounding with Dr. Foss. Pt. is on high flow oxygen at this time. discussed goal of weaning oxygen down as patient can tolerate and progress is being made. Anticipated discharge per Dr. Foss may be in the next couple of days. Plan at this time is for patient to return to [facility].
[2023-03-27] MEDS: 0.9 % SODIUM CHLORIDE 1,000 ML 75 ML IV (09:52)
[2023-03-27] MEDS: TRAMADOL HCL 50 MG TABLET PO ×2 (09:53→21:46)
[2023-03-27] MEDS: CHOLECALCIFEROL (VITAMIN D3) 25 MCG/1,000 UNITS TABLET 50 MCG PO (09:53)
[2023-03-27] MEDS: AMLODIPINE BESYLATE 5 MG TABLET PO (09:53)
--- NOTE | 2023-03-27 10:02 | CM.NOTE ---
Discussed discharge planning with pt, pt stating she spoke with her son and she was going to go home with round the clock care. Pt verbalizes understanding that would be out of pocket expense. Pt also asking about signing a paper to take off vapotherm, explained to pt that would be her choice but it would be a poor outcome for her. Talked with pt about Hospice care, pt does not want hospice. Pt states I don't want to . Explained to pt then it would be a bad choice to come off of oxygen at this time. Pt voices she wants to get better, discussed about participating with PT. Pt verbalizes she is too weak. Tried to explain to pt this was even more reason to participate in PT, it is to help with strengthening. Pt seems not to be able to comprehend the extent of her illness. Pt wishes for Case Management to speak with her son. Talked with pt's son Branden on the telephone, the plan is not to take her home. They are unable to provide around the clock care for his mother at home, plan would be to return to [facility]. Son does wish to speak with Dr. Foss regardng pt's condition and treatment plan. Discussed this with Dr. Foss and he will reach out to pt's son. Pt has changed code status again back to DNRCCA. Pt continues to change her mind regarding discharge planning, she at first wanted to change facilities per Dr. Foss then wants around the clock care at home. Difficult to know if pt completely is comprehending the extent of her illness and her needs for continuos care. Case Management will wait to hear from Dr. Foss after he speaks with pt's son.
--- NOTE | 2023-03-27 10:49 | PT.DAILY ---
Physical Therapy Daily Note PT Daily Note/Assess Start: 03/25/23 10:26 Freq: Status: Active Protocol: Document 03/27/23 10:44 LINDA (Rec: 03/27/23 10:47 LINDA [id number]) Visit Not Completed Visit Not Completed Visit Not Completed Due to: Pt refusing Other Reason Visit Not Completed Pt on Vapotherm today. Refused PT at this time as O2 sats are finally stable. Pt does wish for READING EFFICIENCY COURSE DIRECTOR to reposition her legs with 3 pillows, which was happily done. Will follow up tomorrow with hopes of participation. Nursing notified and OK with refusal this morning- pt did work with OT and is since worn out. Physical Therapy Daily Note/Assessment Time In/Time Out Time In 09:30 Time Out 09:30 Pain In Pain N/A Pain Out Pain N/A GG. Functional Abilities and Goals-Complete for Swing Bed Patients Only [id number]. Self-Care [id number]. Mobility
--- NOTE | 2023-03-27 11:01 | PM.PN ---
Progress Note: Subjective Subjective Interval history: Patient feels better this am. SpO2 stable on high flow oxygen. Still mild SOB but chest not as tight. Not as much anxiety or SOB. Mild cough. C/o pain in neck and back. Afebrile. Appetite improved and no emesis or diarrhea. No chest pain or palpitations. Exam Constitutional Vital Signs, click to edit/add: Last Vital Signs Temp 98.1 F 03/27/23 08:00 Pulse 97 H 03/27/23 10:00 Resp 20 03/27/23 08:00 BP 122/81 03/26/23 20:36 Pulse Ox 94 L 03/27/23 10:00 O2 Del Method BIPAP 03/27/23 04:13 O2 Flow Rate 40 03/27/23 03:44 FiO2 60 03/27/23 03:45 Documenting provider has reviewed patient's vital signs: yes Common normals: no apparent distress and oriented x3 HENMT Common normals: normocephalic Eye Common normals: PERRL and EOMs intact bilaterally Respiratory Common normals: normal respiratory effort and clear to auscultation bilaterally Cardio Common normals: regular rate, regular rhythm, no gallops, no murmurs and no rub GI Common normals: Normal to inspection, nondistended, normoactive bowel sounds present and non-tender Extremity Common normals: no pedal edema Progress Note: Objective Labs Labs: Short CBC 03/26/23 03/27/23 Range/Units 13:20 06:15 WBC 6.2 5.6 (4.0-11.0) 10^3/uL Hgb 10.7 L 10.9 L (12.0-16.0) g/dL Hct 31.5 L 31.9 L (36.0-48.0) % Plt Count 112 L 111 L (150-450) 10^3/uL BMP 03/27/23 06:15 Sodium 129 L Potassium 3.3 L Chloride 97 L Carbon Dioxide 28.5 BUN 20.0 H Creatinine 0.52 L Glucose 99 Calcium 9.6 Progress Note: A&P Assessment and Plan (1) Pneumonia: (2) COVID: (3) Acute respiratory failure with hypoxemia: (4) Hypertension: Qualifiers: Hypertension type: primary hypertension Qualified Code(s): I10 - Essential (primary) hypertension (5) Anxiety about health: (6) Odontoid fracture: Qualifiers: Encounter type: sequela Fracture type: closed Qualified Code(s): S12.100S - Unspecified displaced fracture of second cervical vertebra, sequela (7) Rheumatoid arthritis: Qualifiers: Rheumatoid arthritis location: multiple sites Rheumatoid factor presence: with rheumatoid factor Qualified Code(s): M05.79 - Rheumatoid arthritis with rheumatoid factor of multiple sites without organ or systems involvement (8) Severe protein-calorie malnutrition: Plan Patient slowly improving. SpO2 stable on high flow oxygen and attempt to wean. Continue antibiotics and steroids. Continue PT/OT. Attempted to contact son to discuss case but no answer. Urinary Catheter Management Urinary Catheter Management Urethral: Cath placed during this visit: yes Urethral indwelling: Yes Reason for continuing: prolonged immobilization Insertion date: 03/23/23 Insertion time: 23:51
--- NOTE | 2023-03-27 11:51 | CM.NOTE ---
Updates sent to [facility].
--- NOTE | 2023-03-27 14:50 | CM.NOTE ---
Called received from VIDYA Cameron that pt is now requesting to take off her vapotherm and have Hospice come in. Order received from Dr. Foss for hospice consult. Pt and son in agreement for hospice to come and evaluate pt. Called [facility] and faxed clinical for new referral.
[2023-03-27] MEDS: LEVOFLOXACIN IN DEXTROSE 5 % 750 MG/150 ML IV.SOLN 100 MG IV (16:07)
--- NOTE | 2023-03-27 16:31 | CM.NOTE ---
2nd Important Message From Medicare discussed with pt, denies questions or concerns.
--- NOTE | 2023-03-27 16:34 | CM.NOTE ---
[facility] called they are going to meet with pt and son tomorrow AM 9:00. RN updated.
[2023-03-28] MEDS: MORPHINE SULFATE 2 MG/ML SYRINGE 1 MG IV ×3 (01:09→10:52)
[2023-03-28 01:34] LABS: SARS-CoV-2 Ag NEGATIVE (NEGATIVE)
[2023-03-28 06:00] VITALS: BP 137/86; PULSE 64; RESP 18; TEMP 35.9; O2SAT 97
--- NOTE | 2023-03-28 06:28 | PC.NURSE ---
RN was unsuccessful at drawing labs off the patient's line this AM. Pt is now refusing to have her labs drawn because she does not want to be poked.
[2023-03-28 08:00] VITALS: RESP 18
--- NOTE | 2023-03-28 09:35 | PM.DS1 ---
DS: Providers Provider Date of admission: 03/23/23 14:46 Primary care physician: Dennis Og DO Consults: 03/23/23 14:48 Physical Therapy Eval and Treat Routine Reason for consultation: Weakness 03/23/23 14:49 Occupational Therapy Eval and Treat Routine Reason for consultation: Weakness 03/27/23 Consult to Hospice Routine Reason for consultation: patient request DS: Diagnosis Discharge Diagnosis (1) Pneumonia: (2) COVID: (3) Acute respiratory failure with hypoxemia: (4) Hypertension: Qualifiers: Hypertension type: primary hypertension Qualified Code(s): I10 - Essential (primary) hypertension (5) Anxiety about health: (6) Odontoid fracture: Qualifiers: Encounter type: sequela Fracture type: closed Qualified Code(s): S12.100S - Unspecified displaced fracture of second cervical vertebra, sequela (7) Rheumatoid arthritis: Qualifiers: Rheumatoid arthritis location: multiple sites Rheumatoid factor presence: with rheumatoid factor Qualified Code(s): M05.79 - Rheumatoid arthritis with rheumatoid factor of multiple sites without organ or systems involvement (8) Severe protein-calorie malnutrition: Plan (1) Pneumonia: (2) COVID: (3) Acute respiratory failure with hypoxemia: (4) Hypertension: Qualifiers: Hypertension type: primary hypertension Qualified Code(s): I10 - Essential (primary) hypertension (5) Anxiety about health: (6) Odontoid fracture: Qualifiers: Encounter type: sequela Fracture type: closed Qualified Code(s): S12.100S - Unspecified displaced fracture of second cervical vertebra, sequela (7) Rheumatoid arthritis: Qualifiers: Rheumatoid arthritis location: multiple sites Rheumatoid factor presence: with rheumatoid factor Qualified Code(s): M05.79 - Rheumatoid arthritis with rheumatoid factor of multiple sites without organ or systems involvement (8) Severe protein-calorie malnutrition: DS: Summary Hospital Course Hospital Course: Patient now with a protracted course of COVID. Patient's shortness of breath does continue to get worse. She initially wanted to be put on a ventilator if necessary. Over the last 24 hours her breathing is deteriorated. She is becoming more dyspneic with activity. She is also just wearing out. After discussing it with her family she is elected to become DNR-cc. Hospice was consulted. Patient will be discharged to inpatient hospice today. Medications see list. Follow-up with hospice physician at hospice facility. Time Spent with Patient Time attestation: Total time spent providing and/or coordinating discharge services: Exam Constitutional Vital Signs, click to edit/add: Last Vital Signs Temp 96.7 F L 03/28/23 06:00 Pulse 64 03/28/23 06:00 Resp 18 03/28/23 06:00 BP 137/86 03/28/23 06:00 Pulse Ox 97 03/28/23 06:00 O2 Del Method Vapotherm 03/28/23 06:00 O2 Flow Rate 40 03/28/23 06:00 FiO2 100 03/28/23 06:00 Documenting provider has reviewed patient's vital signs: yes Common normals: apparent distress Respiratory Effort & inspection: not able to speak in complete sentences Auscultation: rhonchi Cardio Common normals: regular rate and regular rhythm Neuro Sensorium/orientation: awake, alert, oriented to person, oriented to place and oriented to time DS: Data Data Completed and Pending Labs on day of discharge: Labs from last 24 hours 03/27/23 01:05 SARS-CoV-2 (PCR) Negative Discharge Plan Discharge Disposition: Hospice - Medical Facility Discharge Medications: Continued prednisone 10 mg tablet 10 mg PO TID amlodipine 2.5 mg tablet 5 mg PO DAILY albuterol sulfate 2.5 mg /3 mL (0.083 %) solution for nebulization 2.5 mg inhalation Q4H PRN (Reason: shortness of breath or wheezing) tramadol 50 mg tablet 50 mg PO BID PRN (Reason: pain) nystatin [Nystop] 100,000 unit/gram powder 1 applic TOPICAL BID PRN (Reason: YEAST INFECTION/REDNESS) calcium carbonate [Tums Ultra] 400 mg calcium (1,000 mg) tablet,chewable 400 mg PO Q4H PRN (Reason: heartburn) Rx Instructions: 400 MG CALCIUM = 1000 MG TUMS TABLET omeprazole 20 mg capsule,delayed release(DR/EC) 20 mg PO DAILY acetaminophen 500 mg capsule 1,000 mg PO Q8H PRN (Reason: pain) Discontinued levofloxacin 500 mg tablet 500 mg PO Q24H cholecalciferol (vitamin D3) 50 mcg (2,000 unit) capsule 50 mcg PO DAILY cyanocobalamin (vitamin B-12) 1,000 mcg capsule 1,000 mcg PO DAILY Forms: Portal Instructions Discharge Date/Time: 03/28/23 12:30
[2023-03-28] MEDS: ONDANSETRON PF 4 MG/2 ML VIAL IV (09:39)
[2023-03-28] MEDS: LORAZEPAM 0.5 MG TABLET PO (09:41)
--- NOTE | 2023-03-28 10:03 | PT.DAILY ---
Physical Therapy Daily Note PT Daily Note/Assess Start: 03/25/23 10:26 Freq: Status: Active Protocol: Document 03/28/23 10:02 LINDA (Rec: 03/28/23 10:03 LINDA [id number]) Visit Not Completed Visit Not Completed Visit Not Completed Due to: Medical instability,Nursing request to hold Other Reason Visit Not Completed Hold due to Hospice consult. Physical Therapy Daily Note/Assessment Time In/Time Out Time In 09:00 Time Out 09:00 GG. Functional Abilities and Goals-Complete for Swing Bed Patients Only [id number]. Self-Care [id number]. Mobility
--- NOTE | 2023-03-28 13:43 | RESP.RT ---
Per hospice request, pt weaned from vapotherm to NC for pt comfort prior to discharge. Pt. tolerated the process well.
== END 2023-03-28 12:30 | disposition hospice, inpatient (51) | DRG 177 ==
LOC: ER 12:55 → MS 13:20 → ICU 03-25 20:40 → MS 03-27 19:38
PROVIDERS: Family Medicine; Nurse Practitioner Acute Care; Admitting Provider Family Medicine; Emergency Provider Emergency Medicine Emergency Medical Services; PCP Internal Medicine; Visit Provider Family Medicine
DX: U07.1 COVID-19 (principal); E43 Unspecified severe protein-calorie malnutrition; J12.82 Pneumonia due to coronavirus disease 2019; J96.01 Acute respiratory failure with hypoxia; G81.91 Hemiplegia, unspecified affecting right dominant side; J44.0 Chronic obstructive pulmonary disease with (acute) lower respiratory infection; M05.79 Rheumatoid arthritis with rheumatoid factor of multiple sites without organ or systems involvement; F41.9 Anxiety disorder, unspecified; M79.2 Neuralgia and neuritis, unspecified; S12.120 Other displaced dens fracture; X58.XXXD Exposure to other specified factors, subsequent encounter; U09.9 Post COVID-19 condition, unspecified; Z66 Do not resuscitate; I10 Essential (primary) hypertension; Z74.01 Bed confinement status; Z87.891 Personal history of nicotine dependence; Z79.52 Long term (current) use of systemic steroids; Z79.899 Other long term (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 therapy; Z87.01 Personal history of pneumonia (recurrent); Z82.49 Family history of ischemic heart disease and other diseases of the circulatory system; R34 Anuria and oliguria; E86.0 Dehydration; Z68.27 Body mass index [BMI] 27.0-27.9, adult
CPT/HCPCS: 36415; 36569; 36600; 51702; 51798; 71045; 80048; 80053; 82800; 82805; 84484; 85025; 85027; 87635; 87811; 93005; 94640; 94660; 94667; 94761; 94799; 96365; 96366; 96375; 96376; 97161; 97165; 97535; 99285; C1887; J1650; J2270; J2405; J2930

== ENCOUNTER 2023-03-23 10:44 | Emergency (ER) | payer MEDICARE, MEDICAID, SELFPAY ==
--- OUTSIDE RECORDS SUMMARY | 2023-03-23 11:00 | XMS_ITS | CCD ---
Author Name Unknown Address [address] [place] [address] Organization [facility] Care Team Providers Care Commodities Broker Name Role Phone Tom Welch MD Unavailable [phone] Bhumika Stacy DO Primary Care Provider [phone] Tom Welch MD Unavailable Bhumika Stacy DO Primary Care Provider BHUMIKA STACY Primary Care Unavailable EULOGIO MANZO Referring Unavailable BHUMIKA STACY Primary Care Unavailable FABIOLALOUIEUL KATIE Consulting Unavailable DILAN JEROME Attending Unavailable MASON LORETTA L Admitting Unavailable GOLDIE, FLORENCE Consulting Unavailable RAIMLARA KELLY Consulting Unavailable AOUANILESH Finnegan Consulting Unavailable EULOGIO AMNZO Consulting Unavailable SAI SERRATO Consulting Unavailable MISC, DOCTOR Admitting Unavailable MISC, DOCTOR Attending Unavailable GODFREY, DR BAI Consulting Unavailable MIKHAIL, DR COLLETTE Echols Consulting Unavailable GODFREY, DR BAI Admitting Unavailable BALL, DR BAI Attending Unavailable GODFREY, DR BAI Consulting Unavailable GODFREY, DR BAI Primary Care Unavailable MIKHAIL, DR COLLETTE Echols Consulting Unavailable GODFREY, DR BAI Admitting Unavailable BALL, DR BAI Attending Unavailable BALL, DR BAI Primary Care Unavailable BALL, DR BAI Consulting Unavailable MISC, DOCTOR Admitting Unavailable MISC, DOCTOR Attending Unavailable MIKHAIL, DR COLLETTE Echols Admitting Unavailable MIKHAIL, DR COLLETTE cEhols Attending Unavailable GODFREY, DR BAI Primary Care Unavailable GODFREY, DR BAI Primary Care Unavailable RAFAEL BATES Admitting Unavailable FRANCIS ., RAFAEL Attending Unavailable FRANCIS Romero, RAFAEL Consulting Unavailable ZAN KRAUSE Consulting Unavailable GODFREY, DR BAI Primary Care Unavailable FRANCIS ., RAFAEL Consulting Unavailable SHAIKH Fabiola PHILLIPS Admitting Unavailable SHAIKH Fabiola PHILLIPS Attending Unavailable SHAIKH Fabiola PHILLIPS Consulting Unavailable SUKH, BRIANNA Consulting Unavailable KASHMIR, COLLETTE Consulting Unavailable BALL, DR BAI Admitting Unavailable BALL, DR BAI Attending Unavailable BALL, DR BAI Primary Care Unavailable BALL, DR BAI Consulting Unavailable ZIEBER, DR ZAN Rapp Consulting Unavailable Ball, Bhumika Unavailable Tom Welch MD Unavailable PROVIDER, UNKNOWN Attending Unavailable PROVIDER, UNKNOWN Admitting Unavailable PROVIDER, UNKNOWN Attending Unavailable PROVIDER, UNKNOWN Admitting Unavailable Godfrey, Dr. Bai [place] [facility] Zenavajeniffer Stacy, Dr. Bai [place] Primary Care Zenavajeniffer Hassan PHYSICAL DAMAGE APPRAISER-VOCATIONAL ADVISER, Lexie Zaman Attending Zena vailable Ball DO, Bhumika Edfoster Consulting Unavail able Ball DO, Bhumika [place] Primary Care Unavail able Ball DO, [facility] Primary Care Unavail able Pratima BUSTILLOS, Eulogio Becker Referring Unavailable Chan BUSTILLOS, Jean-Claude Kumari Attending Unavailable Tessa BUSTILLOS, Jhoan Attending Unavailable Ball DO, Bhumika [place] Primary Care Unavail able Brunswick DO, Boni Ontiveros Attending Unav ailable Ball DO, Bhumika [place] Consulting Unavail able Ball DO, Bhumika [place] Primary Care Unavail able Ball, DO [place] Primary Care Provider DO Boni Lincoln Admit Provider [phone] MD Arnaud Mxa Attending Provider MD Moises Garcia Other Provider MD Kira Gill Other Provider MD Tom Hill Admit Provider MD Tom Hill Attending Provider [phone] VIDYA Lay Other Provider Unavailable VIDYA Gotti Other Provider Unavailable VIDYA Rider Other Provider Unavailable VIDYA Caballero Other Provider Unavailable VIDYA Canela Other Provider Unavailable VIDYA Mohamud Other Provider Unavailable MD Hamzah Groves Other Provider MD Molina Mccoy Other Provider Unavailable Dials, PHYSICAL DAMAGE APPRAISER Isabel M Other Provider [phone] DO Francesco Tomas Other Provider [phone] MD Randal Moore Other Provider DO Adam Estrella Other Provider [phone] MD Arnaud Max Other Provider MD Gabby Salinas Other Provider Musa, ANP-BC Vicky Other Provider MD Kelsie Hoover Other Provider [phone] MD Yosuif Toro Other Provider MD Frank Cook Other Provider MD Lawrence Ramirez Other Provider DO Boni Lincoln Other Provider MD Irma Traore Other Provider MD Yohannes Vargas Other Provider Pasquale, RIGGER SUPERVISOR-C Cathy Orlando Other Provider [phone] MD Anupam Coreas Other Provider MD Ferny Alvarado Other Provider MD Nando Anne Other Provider DO Jossie Richardson Other Provider DO Erik Acosta Other Provider DO Lara Becerril Other Provider GAETANO Summers Other Provider DO Connor Rodríguez Other Provider MD Tiesha Haney Other Provider GAETANO Finch Other Provider GAETANO Frazier Other Provider MD Lashawn Mc Other Provider Hanane, VIDYA Woodard Other Provider Unavailable GAETANO Smyth Other Provider MD Ailyn Hermosillo Other Provider MD Karin Estevez Other Provider DO Julian Bell Other Provider [phone] MD Isabel Mcneil Other Provider MD Gregg Galvez Other Provider [phone] MD Balta Palmer Other Provider DO Neville Faulkner Other Provider Bhumika Stacy DO Primary Care Provider [phone] Moises Garcia Unavailable Bhumika Stacy DO Primary Care Provider NAMRATA POWELL Attending Unavailable CONSULT, SURGERY - NEURO Consulting Unavail able GODFREYBHUMIKA Primary Care Unavailable SYSTEM, PROVIDER NOT IN Referring Unavaila KELSIE Bowen Admitting Unavailable MD Moises Garica Attending Provider [phone] Tom Hill Admitting Unavailable Tom Hill Attending Unavailable Annemarie Lay Consulting Unavailable Bhumika Stacy Primary Care Unavailable Stacey Gotti Consulting Unavailable Marianne Rider Consulting Unavailable DensZenia garrido Consulting Unavailable Angelina Canela Consulting Unavailable Monalisa Mohamud Consulting Unavailable Hamzah Groves Consulting Unavailable DariusMolina K Consulting Unavailable Isabel Malave Consulting Unavailable Francesco Tomas Consulting Unavailable Randal Moore Consulting Unavailable Adam Estrella Consulting UnavailArnaud Livingston Consulting Unavailable Gabby Salinas Consulting Unavailable Vicky Vigil Consulting Unavailable Kelsie Hoover Consulting Unavailable Yousif Toro Consulting Unavailable Frank Cook Consulting Unavailable Lawrence Ramirez Consulting Unavailable Boni Lincoln Consulting Unavailable Irma Traore Consulting Unavailable Yohannes Vargas Consulting Unavailable Cathy Giordano Consulting Unavailable Anupam Coreas Consulting Unavailab Ferny Molina Consulting Unavailable Nando Anne Consulting Unavailable Jossie Richardson Consulting Unavailable Erik Acosta Consulting Unavailable Lara Becerril Consulting Unavailable Mildred Summers Consulting Unavailable Connor Rodríguez Consulting Unavailable Daromar Obayraza Zavala Consulting Unavailable Makayla Finch Consulting Unavailable Tatiana Frazier Consulting Unavailable Alahmad, Lashawn Consulting Unavailable Yamilet Koo Consulting Unavailable Libra, Julia Consulting Unavailable ChaAilyn montiel Consulting Unavailable Jairo, Kira Bowles Consulting Unavaila Karin Huston Consulting Unavailable Julian Bell Consulting UnavailIsabel Riggs Consulting Unavailable Gregg Galvez Consulting Unavailable Balta Palmer Consulting Unavailable Neville Faulkner Consulting Unavailable Garcia Moises Jelena Attending Unavailable Garcia, Moises E Ad[facility] Arnaud Max Attending Unavailable Garcia, Moises E Consulting Unavailable Boni Lincoln Admitting Unavailable [facility] Primary Care Unavailable Jairo, Kira Bowles Consulting Unavaila CHARANJIT Carrero Attending Unavailable [place], TAMPA Primary Care Unavailable KOKO KELLY Attending Unavailable [facility] Primary Care Unavailable JOHNSONMARY ANN DUQUE Referring Unavailabl e BALL, TAMPA Primary Care Unavailable MADISYNHECTOR Referring Unavailable BALL, TAMPA Primary Care Unavailable BALL, TAMPA Primary Care Unavailable MADISYNHECTORIN Referring Unavailable MADISYNHECTOR Referring Unavailable BALL, TAMPA Primary Care Unavailable MADISYN, HECTOR WADE Referring Unavailable BALL, TAMPA Primary Care Unavailable JOHNSONMARY ANN GRIDER Referring Unavailabl e BALL, TAMPA Primary Care Unavailable MADISYNHECTOR Referring Unavailable BALL, TAMPA Primary Care Unavailable MADISYN, HECTOR BURROWSIN Referring Unavailable BALL, TAMPA Primary Care Unavailable Allergies Allergy Classification Reported Allergen(s) Allergy Type Date of Onset Reaction(s) Facility (2 sources) patient allergy list reviewed by nurse or physicia Propensity to adverse reactions 5 Comment:[facility] Other Medications Current Medications Medication Drug Class(es) Dates Sig (Normalized) Sig (Original) acetaminophen 325 mg oral tablet (20 sources) Start: 10-14-2022 take 1 tablet by mouth every six hours as needed Acetaminophen (TYLENOL) tablet 975 mg Start: 09-25-2022 take 500 mg by mouth every four hours Acetaminophen Active 500 MG PO Q4H 0 September 25, 2022 12:00am Start: 08-14-2021 acetaminophen (TYLENOL) tablet 650 mg take 2 tablets by [facility] twice daily for pain Acetaminophen 500 MG 2 tablets Orally twice a day for pain Active Acetaminophen 65 0 MG 1 suppository as needed Rectal every 4 hrs, as needed Active take 1 tablet by benjy th every four hours Acetaminophen 325 MG 1 tablet as needed Orally every 4 hrs Active take 1 tablet by benjy th every six hours as needed for pain acetaminophen (TYLENOL) 325 MG tablet Take 1 tablet by mouth every 6 hours as needed for Pain 0 Active albuterol 0.83 mg/ml inhalation solution (20 sources) beta2-Adrenergic Agonist Albuter ol Sulfate (2.5 MG/3ML) 0.083% 3 mL as needed Inhalation every 6 hrs Active Albuterol Sulfat e (2.5 MG/3ML) 0.083% 3 mL as needed Inhalation every 6 hrs Active take 1 puff(s) by in halation every four hours as needed Albuterol Sulfate HFA 108 (90 Base) MCG/ACT 1 puff as needed Inhalation every 4 hrs Active Yadira Allergy 180 MG (4 sources) Start: 08-15-2022 take 1 tablet by mouth once daily Yadira Allergy 180 MG 1 tablet Swallow whole with water; do not take with fruit juices. Orally Once a day for 30 days July, Active aluminum hydroxide 40 mg/ml / magnesium hydroxide 40 mg/ml / simethicone 4 mg/ml oral suspension (2 sources) Start: 09-25-2022 take 1 mL by mouth every four hours Alum-Mag Hydroxide-Simeth (Mag-Al Plus) 200-200-20 mg/5 mL Suspension Active 30 ML PO Q4H 0 September 25, 2022 12:00am amLODIPine 10 mg oral tablet (20 sources) Dihydropyridine Calcium Channel Shirin Start: 09-25-2022 take 10 mg by mouth once daily Amlodipine Active 10 MG PO Daily 0 September 25, 2022 12:00am Start: 01-21-2022 End: 09-25-2022 take 2.5 mg by mouth once daily Amlodipine Discontinue d 2.5 MG PO Daily September 10, 2022 12:00am September 25, 2022 9:14am take 1 tablet by benjy th every twenty-four hours amLODIPine Besylate 5 MG 1 tablet Orally Once a day Active amoxicillin 875 mg / clavulanate 125 mg oral tablet (2 sources) Penicillin-class Antibacterial Start: 08-15-2022 take 1 tablet by mouth every twelve hours Amoxicillin-Pot Clavulanate 875-125 MG 1 tablet Orally every 12 hrs for 7 July, Active bisacodyl 10 mg rectal suppository (2 sources) Stimulant Laxative Start: 09-25-2022 Bisacodyl Active 10 MG AR Daily 0 September 25, 2022 12:00am calcium carbonate 500 mg chewable tablet (13 sources) take 1 tablet by mouth every twenty-four hours Tums 500 MG 1 tablet Orally Once a day Active ceFAZolin (ANCEF) 2000 mg in sterile water 20 mL IV syringe (1 source) Start: 08-20-2021 End: 09-27-2021 ceFAZolin (ANCEF) 2000 mg in sterile water 20 mL IV syringe ceFAZolin (ANCEF) infusion (3 sources) Start: 08-21-2021 End: 09-27-2021 take 2000 mg intravenously every eight hours ceFAZolin (ANCEF) infusion Infuse 2,000 mg intravenously every 8 hours Compound per protocol 222 g 0 08/21/2021 09/27/2021 Active Cholecalciferol (13 sources) Vitamin D take 1 capsule by mouth once daily Cholecalciferol 50 MCG (1999 UT) 1 capsule Orally Once a day Active diazePAM 2 mg oral tablet (3 sources) Benzodiazepine Start: 09-26-2022 take 1 tablet by mouth three times daily Diazepam (Valium) 2 mg tablet Active 2 MG PO Three times daily 14 5 September 26, 2022 12:00am take 1 tablet by benjy every six hours as needed for anxiety diazePAM (VALIUM) 2 MG tablet Take 1 tablet by mouth every 6 hours as needed for Anxiety. 0 Active docusate sodium 100 mg oral capsule (18 sources) Start: 09-25-2022 take 100 mg by mouth twice daily Docusate Sodium Active 100 MG PO Twice daily 0 September 25, 2022 12:00am Start: 08-17-2021 End: 08-18-2021 docusate sodium (COLACE) cap mindy 100 mg take 1 capsule by mo [facility] every twelve hours Colace 100 MG 1 capsule Orally every 12 hours as need Active docusate sodium 50 mg / sennosides, senior care 8.6 mg oral tablet (6 sources) Start: 09-17-2022 End: 09-25-2022 take 2 tablets by mouth twice daily Sennosides-Docusate Sodium Active 2 TAB PO Twice daily 0 September 25, 2022 12:00am take 1 tablet by mouth once maryjo y sennosides-docusate sodium (SENOKOT-S) 8.6-50 MG tablet Take 1 tablet by mouth daily 0 Active 0.3 ml enoxaparin sodium 100 mg/ml prefilled syringe (10 sources) Low Molecular Weight Heparin Start: 08-21-2021 enoxaparin Sodium (LOVENOX) injection 30 mg Start: 08-21-2021 enoxaparin (LO VENOX) 40 MG/0.4ML Inject 0.4 mLs into the skin daily 0.4 mL 5 08/21/2021 Active Start: 08-17-2021 End: 08-21-2021 enoxaparin (LOVENOX) injecti on 40 mg famotidine 20 mg oral tablet (6 sources) Histamine-2 Receptor Antagonist Start: 09-17-2022 End: 09-25-2022 take 20 mg by mouth every twelve hours Famotidine Active 20 MG PO Every 12 hours 0 September 25, 2022 12:00am take 1 tablet by mouth twice lara ly famotidine (PEPCID) 20 MG tablet Take 1 tablet by mouth 2 times daily 0 Active fexofenadine hydrochloride 180 mg oral tablet (9 sources) Histamine-1 Receptor Antagonist take 1 tablet by mouth once daily Fexofenadine HCl 180 MG TAKE 1 TABLET BY MOUTH EVERY DAY SWALLOW WHOLE WITH WATER DO NOT TAKE WITH FRUIT JUICES for 30 Active folic acid 1 mg oral tablet (4 sources) Start: 1 End: 2 take 1 tablet by mouth once daily folic acid 1 MG tablet TAKE 1 TABLET BY MOUTH EVERY DAY 90 Tablet 1 03/05/2021 Active furosemide 40 mg oral tablet (10 sources) Loop Diuretic Start: 2 take 1 tablet by mouth once daily furosemide (LASIX) 40 MG tablet Take 1 tablet by mouth daily 60 tablet 3 08/21/2021 Active Start: 08-18-2021 furosemide (LA SIX) injection 20 mg gabapentin 100 mg oral capsule (6 sources) Anti-epileptic Agent Start: 02-04-2023 take 1 capsule by mouth every eight hours Gabapentin 100 MG 1 capsule Orally tid Jan, Active take 1 capsule by [facility] three times daily gabapentin (NEURONTIN) 300 MG capsule Ta ke 1 capsule by mouth 3 times daily. 0 Active 12 hr guaiFENesin 600 mg extended release oral tablet (13 sources) Start: 01-17-2022 take 1 tablet by mouth every twelve hours [facility] MUCUS EXTENDED RELEASE 600 MG extended release tablet TAKE 1 - 2 TABLETS BY MOUTH EVERY 12 HOURS 0 01/17/2022 Active hydroxychloroquine sulfate 200 mg oral tablet (7 sources) Antimalarial, Antirheumatic Agent Start: 02-22-2021 take 2 tablets by mouth once daily hydroxychloroquine (PLAQUENIL) 200 MG tablet Take 2 Tablets by mouth daily. 60 Tablet 3 02/22/2021 Active lactulose 667 mg/ml oral solution (15 sources) Osmotic Laxative Start: 09-25-2022 take 30 g by mouth once daily Lactulose Active 30 GM PO Daily 0 September 25, 2022 12:00am Lactulose 10 GM/ 15ML 30 ml Orally prn Active levalbuterol 0.21 mg/ml inhalation solution (3 sources) beta2-Adrenergic Agonist Start: 09-25-2022 take 0.63 mg by inhalation four times daily Levalbuterol Hcl Active 0.63 MG INHALATION Four times daily - Respiratory 0 September 25, 2022 12:00am levalbuterol (XO PENEX) 0.63 MG/3ML nebulization Take 3 mLs by nebulization every 8 hours as needed for Wheezing 0 Active levoFLOXacin 500 mg oral tablet (16 sources) Quinolone Antimicrobial Start: 05-08-2022 End: 06-07-2022 take 1 tablet by mouth once daily levoFLOXacin (LEVAQUIN) 500 MG tablet Take 1 tablet by mouth daily 30 tablet 5 05/08/2022 Active Start: 09-09-2021 End: 10-09-2021 take 1 tablet by mouth once daily levoFLOXacin (LEVAQUIN) 500 MG tablet Take 1 tablet by mouth daily 10 tablet 2 09/09/2021 10/09/2021 Active loperamide hydrochloride 2 mg oral capsule (14 sources) Opioid Agonist Start: 08-20-2021 loperamide (IM ODIUM) capsule 2 mg take 2 tablets by [facility] every twenty-four hours Imodium A-D 2 MG 2 tablet as needed Orally daily Active magnesium hydroxide 80 mg/ml oral suspension (1 source) Start: 08-18-2021 magnesium hydroxide (MILK OF MAGNESIA) 400 MG/5ML suspension 15 mL methocarbamol 750 mg oral tablet (3 sources) Muscle Relaxant Start: 08-19-2021 End: 08-30-2021 take 1 tablet by mouth three times daily as needed for pain methocarbamol (ROBAXIN) 750 MG tablet Take 1 tablet by mouth 3 times daily as needed (spasm, pain) 40 tablet 5 08/20/2021 08/30/2021 Active methotrexate 2.5 mg oral tablet (7 sources) Folate Analog Metabolic Inhibitor Start: 11-09-2020 take 6 tablets by mouth every week methotrexate 2.5 MG tablet Take 6 Tablets by mouth once weekly. 30 Tablet 2 11/09/2020 Active methylPREDNISolone 4 mg oral tablet (2 sources) Corticosteroid Start: 10-27-2022 End: 11-02-2022 methylPREDNISolone (MEDROL, WILLIE,) 4 MG tablet Take by mouth. 21 tablet 0 10/27/2022 11/02/2022 Active Start: 10-27-2022 End: 10-27-2022 methylPREDNISolone sodium raya cc (SOLU-MEDROL) injection 125 mg 5 ml metoprolol tartrate 1 mg/ml injection (1 source) beta-Adrenergic Shirin Start: 08-20-2021 metopr olol (LOPRESSOR) injection 5 mg 1 ml morphine sulfate 2 mg/ml cartridge (3 sources) Opioid Agonist Start: 10-27-2022 End: 10-27-2022 morphine (PF) injection 2 mg Start: 08-14-2021 End: 08-14-2021 morphine injection 4 mg Nystatin 481285 units/g (13 sources) Nystatin 352251 units/g applied topically as directed four times a day Active omeprazole 20 mg delayed release oral capsule (14 sources) Proton Pump Inhibitor take 1 capsule by mouth once daily Omeprazole 20 MG 1 capsule 30 minutes before morning meal Orally Once a day Active Ondansetron 4mg/2ml (ZOFRAN) injection 4 mg (1 source) Start: 10-15-19 take 4 mg intravenously every six hours as needed Ondansetron 4mg/2ml (ZOFRAN) injection 4 mg oxyCODONE hydrochloride 5 mg oral tablet (15 sources) Opioid Agonist Start: 10-14-19 End: 10-23-19 take 1 tablet by mouth every eight hours as needed for pain oxyCODONE 5 MG tablet Indications: Extremity numbness Take 1 tablet by mouth every 8 hours as needed for Moderate Pain or Severe Pain for up to 5 days. 15 tablet 0 10/17/2022 10/22/2022 Active Start: 09-26-2022 take 5 mg by mouth e very four hours Oxycodone Active 5 MG PO Every 4 hours 30 5 September 26, 2022 Start: 09-17-2022 End: 09-25-2022 take 5 mg by mouth every six hours Oxycodone Discontinued 5 MG PO Every 6 hours 0 September 17, 2022 September 25, 2022 9:14am Start: 09-17-2022 End: 09-25-2022 take 10 mg by mouth every six hours Oxycodone Discontinued 10 MG PO Every 6 hours 0 September 17, 2022 September 25, 2022 9:14am Start: 08-20-2021 End: 08-24-2021 take 1 tablet by mouth every eight hours as needed for pain oxyCODONE HCl (OXY-IR) 10 MG immediate release tablet Indications: MSSA bacteremia , Staphylococcal arthritis of right shoulder (HCC) Take 1 tablet by mouth every 8 hours as needed for Pain (severe pain) for up to 3 days. 15 tablet 0 08/21/2021 08/24/2021 Active Start: 08-18-2021 oxyCODONE (JENNIFER ICODONE) immediate release tablet 10 mg pantoprazole 40 mg delayed release oral tablet (3 sources) Proton Pump Inhibitor Start: 10-15-2022 End: 11-16-2022 take 1 tablet by mouth once daily Pantoprazole 40 MG Tab tablet Indications: Inpt Stress Ulcer Prophylaxis Take 1 tablet by mouth daily. 30 tablet 0 10/17/2022 11/16/2022 Active microencapsulated potassium chloride 20 meq extended release oral tablet (13 sources) Start: 08-21-2021 take 2 tablets by mouth once daily before breakfast potassium chloride (KLOR-CON M) 20 MEQ extended release tablet Take 2 tablets by mouth every morning (before breakfast) 60 tablet 3 08/21/2021 Active Start: 08-21-2021 End: 08-21-2021 potassium chloride 10 mEq/10 0 mL IVPB (Peripheral Line) Start: 08-20-2021 End: 08-20-2021 potassium chloride (KLOR-CON M) extended release tablet 20 mEq Start: 08-19-2021 potassium chlo ride (KLOR-CON M) extended release tablet 40 mEq Start: 08-16-2021 End: 08-16-2021 potassium chloride 10 mEq/10 0 mL IVPB (Peripheral Line) Senna Leaves (3 sources) take 1 tablet by mouth once daily at bedtime as needed Senna 8.6 MG 1 tablet at bedtime as needed Orally Once a day Active Sennosides (Senna Lax) 8.6 mg Tablet (2 sources) Start: 09-26-19 take 2 tablets by mouth once daily Sennosides (Senna Lax) 8.6 mg Tablet Active 17.2 MG PO DAILY@12 0 September 25, 2022 12:00am sennosides, senior care 8.6 mg oral tablet (10 sources) take 1 tablet by mouth every twenty-four hours Senna 8.6 MG 1 tablet at bedtime as needed Orally Once a day Active spironolactone 25 mg oral tablet (9 sources) Aldosterone Antagonist Start: 08-21-19 take 0.5 tablet by mouth once daily spironolactone (ALDACTONE) 25 MG tablet Take 0.5 tablets by mouth daily 30 tablet 3 08/20/2021 Active Start: 08-20-2021 spironolactone (ALDACTONE) tablet 12.5 mg traMADol hydrochloride 50 mg oral tablet (20 sources) Opioid Agonist Start: 01-28-2023 take 1 tablet by mouth every eight hours as needed for pain traMADol HCl 50 MG 1 tablet as needed Orally every 8 hours as needed for pain Jan, Active Start: 07-12-2021 End: 10-17-2022 take 1 tablet by mouth twice daily as needed traMADol HCl 50 MG 1 tablet as needed Orally Twice daily for 30 days Start 07/30Aug, Active Start: 07-12-2021 End: 09-17-2022 take 50 mg by mouth every eight hours Tramadol Discontinued 50 MG PO Q8H September 10, 2022 12:00am September 17, 2022 2:48pm Start: 07-12-2021 take 1 tablet by benjy th every twenty-four hours traMADol HCl 50 MG 1 tablet as needed Orally Once a day for 30 days start 07/08Jun, Active Start: 07-12-2021 traMADol (ULTR AM) 50 MG tablet traZODone hydrochloride 50 mg oral tablet (9 sources) Serotonin Reuptake Inhibitor Start: 08-19-2021 take 1 tablet by mouth once daily as needed for sleep traZODone (DESYREL) 50 MG tablet Take 1 tablet by mouth nightly as needed for Sleep 90 tablet 5 08/20/2021 Active Completed/Discontinued Medications Medication Drug Class(es) Dates Sig (Normalized) Sig (Original) acetaminophen 325 mg / oxyCODONE hydrochloride 5 mg oral tablet (1 source) Opioid Agonist Start: 08-16-2021 End: 08-17-2021 oxyCODONE-acetamino phen (PERCOCET) 5-325 MG per tablet 2 tablet cefTRIAXone 1000 mg injection (1 source) Cephalosporin Antibacterial Start: 10-14-2022 End: 10-14-2022 cefTRIAXone (ROCEPHIN) 1 g in dextrose 50ml premix IVPB cyclobenzaprine hydrochloride 10 mg oral tablet (3 sources) Muscle Relaxant Start: 09-17-2022 End: 09-25-2022 take 10 mg by mouth every eight hours Cyclobenzaprine Discontinued 10 MG PO Every 8 hours 0 September 17, 2022 12:00am September 25, 2022 9:14am 1 ml dexamethasone phosphate 4 mg/ml injection (4 sources) Corticosteroid Start: 10-14-2022 End: 10-15-2022 dexAMETHasone (DECADRON) injection 4 mg Start: 09-17-2022 End: 09-25-2022 take 1 mg by mouth four times daily Dexamethasone Discontinued 1 MG PO Four times daily 0 September 17, 2022 12:00am September 25, 2022 9:14am 1 ml diphenhydrAMINE hydrochloride 50 mg/ml cartridge (1 source) Histamine-1 Receptor Antagonist Start: 08-15-2021 End: 08-15-2021 diphenhydrAMINE (BENADRYL) injection 12.5 mg 2 ml fentaNYL 0.05 mg/ml injection (3 sources) Opioid Agonist Start: 08-15-2021 End: 08-16-2021 fentaNYL (SUBLIMAZE) injection 50 mcg Start: 08-15-2021 End: 08-15-2021 fentaNYL (SUBLIMAZE) 100 MCG /2ML injection 250 ml glucose 50 mg/ml / sodium chloride 4.5 mg/ml injection (1 source) Start: 08-17-2021 End: 08-17-2021 dextrose 5 % and 0.45 % sodium chloride infusion 1 ml heparin sodium, porcine 5000 unt/ml prefilled syringe (3 sources) Unfractionated Heparin, Anti-coagulant Start: 10-14-2022 inject 5000 [IU] by subcutaneous injection every eight hours 5,000 Units, Subcutaneous, EVERY 8 HOURS (0800/1600/2200), First dose on Thu10/14/22 at 2200, Until Discontinued Start: 09-25-2022 inject 5000 [IU] by subcutaneous injection every eight hours Heparin (Porcine) Active 5000 UNIT SUBCUT Every 8 hours 0 September 25, 2022 12:00am hydrocortisone 100 mg injection (2 sources) Corticosteroid Start: 08-17-2021 End: 08-17-2021 hydrocortisone sodium succinate PF (SOLU-CORTEF) 100 MG injection Start: 08-16-2021 End: 08-17-2021 hydrocortisone sodium succin ate PF (SOLU-CORTEF) injection 50 mg 1 ml HYDROmorphone hydrochloride 1 mg/ml cartridge (6 sources) Opioid Agonist Start: 08-14-2021 End: 08-15-2021 HYDROmorphone (DILAUDID) injection 1 mg Start: 08-14-2021 End: 08-14-2021 HYDROmorphone (DILAUDID) inj ection 0.5 mg Start: 08-14-2021 End: 08-14-2021 HYDROmorphone (DILAUDID) inj ection 0.5 mg Start: 08-14-2021 End: 08-14-2021 HYDROmorphone (DILAUDID) inj ection 0.5 mg iopamidol (ISOVUE-370) 76 % injection 100 mL (1 source) Start: 08-14-2021 End: 08-14-2021 iopamidol (ISOVUE-370) 76 % injection 100 mL iopamidol (ISOVUE-370) 76 % injection 75 mL (2 sources) Start: 08-15-2021 End: 08-15-2021 iopamidol (ISOVUE-370) 76 % injection 75 mL Start: 08-14-2021 End: 08-14-2021 iopamidol (ISOVUE-370) 76 % injection 75 mL 1 ml ketorolac tromethamine 15 mg/ml cartridge (1 source) Nonsteroidal Anti-inflammatory Drug, Cyclooxygenase Inhibitor Start: 08-15-2021 End: 08-15-2021 ketorolac (TORADOL) injection 15 mg 10 ml lidocaine hydrochloride 10 mg/ml injection (1 source) Antiarrhythmic, Amide Local Anesthetic Start: 08-14-2021 End: 08-14-2021 lidocaine 1 % injection 100 ml magnesium sulfate 10 mg/ml injection (1 source) Start: 08-19-2021 End: 08-19-2021 magnesium sulfate 1000 mg in dextrose 5% 100 mL IVPB nafcillin 2,000 mg in dextrose 5 % 100 mL IVPB (mini-bag) (1 source) Start: 08-17-2021 End: 08-21-2021 nafcillin 2,000 mg in dextrose 5 % 100 mL IVPB (mini-bag) 2 ml ondansetron 2 mg/ml injection (1 source) Serotonin-3 Receptor Antagonist Start: 08-14-2021 End: 08-14-2021 ondansetron (ZOFRAN) injection 4 mg piperacillin-tazobact am (ZOSYN) 3,375 mg in dextrose 5 % 50 mL IVPB (mini-bag) (1 source) Start: 08-15-2021 End: 08-15-2021 piperacillin-tazoba ctam (ZOSYN) 3,375 mg in dextrose 5 % 50 mL IVPB (mini-bag) piperacillin-tazobact am (ZOSYN) 4,500 mg in dextrose 5 % 100 mL IVPB (mini-bag) (1 source) Start: 08-14-2021 End: 08-14-2021 piperacillin-tazoba ctam (ZOSYN) 4,500 mg in dextrose 5 % 100 mL IVPB (mini-bag) polyethylene glycol 3350 44630 mg powder for oral solution (6 sources) Osmotic Laxative Start: 10-14-2022 17 g, Oral, D AILY NEEDED, Starting on Thu10/14/22 at 1859, Until Discontinued, Constipation 1st Line Start: 08-19-2021 End: 09-20-2021 take 17 g by mouth once daily polyethylene glycol (GLY COLAX) 17 g packet Take 17 g by mouth daily 527 g 1 08/21/2021 09/20/2021 Active predniSONE 10 mg oral tablet (20 sources) Start: 12-30-2021 End: 10-14-2022 predniSONE (DELTASONE) 10 MG tablet Start: 12-30-2021 End: 09-25-2022 take 10 mg by mouth twice daily Prednisone Discontinue d 10 MG PO Twice daily September 10, 2022 12:00am September 25, 2022 9:14am Start: 08-21-2021 End: 08-31-2021 take 3 tablets by mouth once daily predniSONE (DELTASONE) 2.5 MG tablet Take 3 tablets by mouth daily for 10 days 30 tablet 0 08/21/2021 08/31/2021 Active Start: 08-21-2021 predniSONE (DE LTASONE) tablet 7.5 mg Start: 02-22-2021 End: 11-01-2022 predniSONE (DELTASONE) table t 5 mg take 1 tablet by benjy th twice daily as needed for pain predniSONE 5 MG TAKE 1 TABLET BY MOUTH TWICE A DAY NEEDED FOR PAIN for 30 Active 1000 ml sodium chloride 9 mg/ml injection (15 sources) Start: 10-14-2022 Intravenous, a t 20 mL/hr, NEEDED, Starting on Thu10/14/22 at 1859, Until Discontinued, Carrier Fluid - See Admin. Inst 250mL 0.9NS to be used as carrier fluid for intermittent small volume or piggyback medication administration as needed. Infusion rate of the carrier fluid should be set at 20 mL/hr unless the rate as the intermittent medication is less than 20 mL/hr. For intermittent medications with a rate less than 20 mL/hr set the carrier fluid at that rate of the intermittent or piggy back medication. Start: 08-20-2021 0.9 % sodium c hloride infusion Start: 08-20-2021 sodium chlorid e flush 0.9 % injection 5-40 mL Start: 08-16-2021 End: 08-16-2021 sodium chloride flush 0.9 % injection 5-40 mL Start: 08-15-2021 End: 08-15-2021 0.9 % sodium chloride bolus Start: 08-14-2021 IntraVENous, a t 5-250 mL/hr, PRN, if patient receiving piggyback infusions and maintenance fluids are not ordered OR KVO fluids to protect IV site / prevent frequent line interruptions/ long duration, Starting on Thu08/14/21 at 2224 For piggyback infusion, administer at same rate as piggyback for a total of 25 mL. Enter 25 mL into dose field and piggyback rate into rate field of order. If piggyback is infusing at a rate less than 100 mL/hr, enter 25 mL into dose field and 100 mL/hr into rate field of order. For KVO fluids, enter rate of 20 mL/hr or less into rate field of order. Start: 08-14-2021 take 1 dose intraven ously twice daily 5-40 mL, IntraVENous, EVERY 12 HOURS SCHEDULED (2 times per day), First dose on Thu08/14/21 at 2245, Until Discontinued For Line Patency: Peripheral IV = 5 mL; Midline or Central Line = 10 mL/lumen. If following IV push medication, administer flush at same rate as the IV push. Flush volume is determined by type of infusion therapy being given. For non-viscous solutions use: Peripheral IV = 5 mL Midline or Central Line = 10 mL/lumen For viscous solutions (i.e. blood components, parenteral nutrition, contrast media, or after obtaining blood sample) use: Peripheral IV = 10 mL Midline or Central Line = 20 mL/lumen Start: 08-14-2021 take 5-40 mL intrave nously once as needed 5-40 mL, IntraVENous, PRN, Starting on Thu08/14/21 at 2224, Until Discontinued, Line Care, After every IV line use For Line Patency: Peripheral IV = 5 mL; Midline or Central Line = 10 mL/lumen. If following IV push medication, administer flush at same rate as the IV push. Flush volume is determined by type of infusion therapy being given. For non-viscous solutions use: Peripheral IV = 5 mL Midline or Central Line = 10 mL/lumen For viscous solutions (i.e. blood components, parenteral nutrition, contrast media, or after obtaining blood sample) use: Peripheral IV = 10 mL Midline or Central Line = 20 mL/lumen Start: 08-14-2021 End: 08-18-2021 0.9 % sodium chloride infusi on Start: 08-14-2021 End: 08-14-2021 0.9 % sodium chloride bolus Start: 08-14-2021 End: 08-14-2021 0.9 % sodium chloride bolus 200 ml vancomycin 5 mg/ml injection (1 source) Glycopeptide Antibacterial Start: 08-14-2021 End: 08-14-2021 vancomycin (VANCOCIN) 1000 mg in dextrose 5% 200 mL IVPB vancomycin (VANCOCIN) 1000 mg in sodium chloride 0.9% 250 mL IVPB (1 source) Start: 08-15-2021 End: 08-16-2021 vancomycin (VANCOCIN) 1000 mg in sodium chloride 0.9% 250 mL IVPB vancomycin (VANCOCIN) 1500 mg in sodium chloride 0.9 % 250 mL IVPB (1 source) Start: 08-16-2021 End: 08-17-2021 vancomycin (VANCOCIN) 1500 mg in sodium chloride 0.9 % 250 mL IVPB vancomycin 1000 mg IVPB in 250 mL D5W addavial (1 source) Start: 08-14-2021 End: 08-14-2021 vancomycin 1000 mg IVPB in 250 mL D5W addavial water 1000 mg/ml injectable solution (1 source) Start: 10-27-2022 End: 10-27-2022 sterile water injection Problems Active Problems Problem Classification Problem Date Documented Da te Episodic/Chronic Chronic obstructive pulmonary disease and bronchiectasis (20 sources) Mucopurulent chronic bronchitis; Translations: [Mucopurulent chronic bronchitis] Onset: 09-17-2022 Chronic Chronic obstructive pulmonary disease and bronchiectasis (2 sources) Bronchitis; Translations: [Bronchitis, not specified as acute or chronic] Episodic Diabetes mellitus without complication (2 sources) Type 2 diabetes mellitus without complications; Translations: [Type 2 diabetes mellitus without complications] Onset: 11-25-2022 Chronic Diseases of white blood cells (2 sources) Disorder of white blood cells, unspecified; Translations: [Disorder of white blood cells, unspecified] Onset: 10-03-2022 Chronic E Codes: Fall (2 sources) Unspecified fall, initial encounter; Translations: [Fall] Onset: 2021 09-06-2022 Episodic Essential hypertension (20 sources) Essential (primary) hypertension; Translations: [Essential hypertension] Onset: 05-15-2022 Chronic Fluid and electrolyte disorders (13 sources) Hypervolemia; Translations: [Fluid overload, unspecified] Onset: 08-18-2021 Episodic Genitourinary symptoms and ill-defined conditions (20 sources) Asymptomatic microscopic hematuria; Translations: [Asymptomatic microscopic hematuria] Episodic Headache; including migraine (20 sources) New daily persistent headache; Translations: [New daily persistent headache (NDPH)] Chronic Immunity disorders (1 source) Immunodeficiency, unspecified; Translations: [IMMUNODEFICIENCY UNSPECIFIED] Onset: 11-14-2021 Chronic Immunizations and screening for infectious disease (2 sources) Contact with and (suspected) exposure to other viral communicable diseases; Translations: [Contact with and (suspected) exposure to COVID-19] Episodic Malaise and fatigue (14 sources) Asthenia; Translations: [Other malaise] Onset: 05-15-2022 Episodic Nutritional deficiencies (20 sources) Vitamin D deficiency, unspecified; Translations: [Vitamin D deficiency] Onset: 05-15-2022 Chronic Osteoarthritis (20 sources) Osteoarthritis of joint of right shoulder region; Translations: [Primary osteoarthritis, right shoulder] Chronic Other acquired deformities (20 sources) Spondylolysis of cervical spine; Translations: [Spondylolysis, cervical region] Episodic Other acquired deformities (1 source) Spondylolysis, cervical region Episodic Other aftercare (2 sources) 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/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; Translations: [OTH LONG-TERM CURRENT DRUG THERAPY] Onset: 05-15-2022 Episodic Other connective tissue disease (8 sources) Disorder of musculoskeletal system; Translations: [Other symptoms and signs involving the musculoskeletal system] Episodic Other connective tissue disease (2 sources) Spasm; Translations: [Other muscle spasm] 09-25-2022 Episodic Other connective tissue disease (1 source) Other muscle spasm; Translations: [Other muscle spasm] Onset: 09-17-2022 Episodic Other connective tissue disease (1 source) Personal history of other diseases of the musculoskeletal system and connective tissue Episodic Other diseases of veins and lymphatics (20 sources) Peripheral venous insufficiency; Translations: [Venous insufficiency (chronic) (peripheral)] Episodic Other diseases of veins and lymphatics (5 sources) Venous insufficiency (chronic) (peripheral); Translations: [Chronic venous insufficiency] Episodic Other endocrine disorders (6 sources) 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; 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 Other endocrine disorders (7 sources) Drug-induced Digna's syndrome Chronic Other endocrine disorders (20 sources) Hypercortisolism; Translations: [Drug-induced [place]'s syndrome] Chronic Other fractures (6 sources) Unspecified displaced fracture of second cervical vertebra, subsequent encounter for fracture with routine healing; Translations: [Unspecified displaced fracture of second cervical vertebra, subsequent encounter for fracture with routine healing] Onset: 10-01-2022 Episodic Other fractures (3 sources) Fracture of second cervical vertebra; Translations: [Unspecified displaced fracture of second cervical vertebra, initial encounter for closed fracture] 09-11-2022 Episodic Other fractures (6 sources) Unspecified displaced fracture of second cervical vertebra, initial encounter for closed fracture; Translations: [Closed fracture of second cervical vertebra] Onset: 09-17-2022 09-17-2022 Episodic Other fractures (3 sources) Anterior displaced Type II dens fracture, initial encounter for closed fracture; Translations: [Anterior displaced type ii dens fracture, initial encounter for closed fracture] Onset: 09-29-2022 Episodic Other gastrointestinal disorders (9 sources) Constipation; Translations: [Constipation, unspecified] Episodic Other hereditary and degenerative nervous system conditions (2 sources) Impaired cognition; Translations: [Mild cognitive impairment, so stated] 09-18-2022 Chronic Other hereditary and degenerative nervous system conditions (3 sources) Mild cognitive impairment, so stated; Translations: [Mild cognitive impairment, so stated] Onset: 09-17-2022 09-26-2022 Chronic Other infections; including parasitic (8 sources) Late effects of other and unspecified infectious and parasitic diseases; Translations: [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] 09-11-2022 Chronic Other injuries and conditions due to external causes (1 source) Systemic inflammatory response syndrome; Translations: [Systemic inflammatory response syndrome (SIRS) of non-infectious origin without acute organ dysfunction] Episodic Other injuries and conditions due to external causes (2 sources) History of fall; Translations: [History of falling] Episodic Other lower respiratory disease (20 sources) Hypoxemia; Translations: [Hypoxemia] Episodic Other lower respiratory disease (8 sources) Hypoxemia; Translations: [Hypoxemia] Episodic Other lower respiratory disease (2 sources) Dyspnea; Translations: [Shortness of breath] Episodic Other nervous system disorders (2 sources) Cervical myelopathy; Translations: [Disease of spinal cord, unspecified] 09-18-2022 Chronic Other nervous system disorders (3 sources) Disease of spinal cord, unspecified; Translations: [Cervical spondylosis with myelopathy] Onset: 09-17-2022 09-26-2022 Chronic Other nervous system disorders (1 source) Chronic pain; Translations: [Other chronic pain] Chronic Other nervous system disorders (1 source) Other chronic pain; Translations: [Other chronic pain] Onset: 10-27-2022 Chronic Other nervous system disorders (1 source) Other vascular myelopathies; 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] Onset: 10-13-2022 Chronic Other nervous system disorders (17 sources) Paresthesia; Translations: [Paresthesia of skin] Episodic Other nervous system disorders (2 sources) Abnormal gait; Translations: [Other abnormalities of gait and mobility] 09-18-2022 Episodic Other nervous system disorders (2 sources) Postoperative pain ; Translations: [Other acute postprocedural pain] 09-18-2022 Episodic Other nervous system disorders (3 sources) Other abnormalities of gait and mobility; Translations: [Abnormality of gait] Onset: 09-17-2022 09-26-2022 Episodic Other nervous system disorders (3 sources) Other acute postprocedural pain; Translations: [Other acute postoperative pain] Onset: 09-17-2022 09-26-2022 Episodic Other nervous system disorders (3 sources) Numbness of limbs; Translations: [Anesthesia of skin] Onset: 10-14-2022 10-16-2022 Episodic Other nervous system disorders (2 sources) Anesthesia of skin; Translations: [Anesthesia of skin] Onset: 10-13-2022 Episodic Other nervous system disorders (2 sources) Paresthesia of skin Episodic Other nutritional; endocrine; and metabolic disorders (9 sources) Morbid obesity; Translations: [Morbid (severe) obesity due to excess calories] Chronic Other nutritional; endocrine; and metabolic disorders (2 sources) Obesity; Translations: [Obesity, unspecified] Chronic Other upper respiratory disease (20 sources) Allergic rhinitis due to pollen; Translations: [Allergic rhinitis due to pollen] Chronic Other upper respiratory infections (4 sources) Acute frontal sinusitis; Translations: [Acute frontal sinusitis, unspecified] Onset: 07-19-2014 Resolved: 05-07-2020 Episodic Otitis media and related conditions (20 sources) Bilateral mastoiditis; Translations: [Unspecified mastoiditis, bilateral] Episodic Paralysis (9 sources) Right hemiparesis; Translations: [Hemiplegia, unspecified affecting right dominant side] Chronic Pneumonia (except that caused by tuberculosis or sexually transmitted disease) (1 source) Infective pneumonia; Translations: [Pneumonia, unspecified organism] 09-06-2022 Episodic Pneumonia (except that caused by tuberculosis or sexually transmitted disease) (1 source) Pneumonia (except that caused by tuberculosis or sexually transmitted disease); Translations: [PNEUMONIA D/T CORONAVIRUS DIS 2019] Onset: 11-14-2021 Residual codes; unclassified (18 sources) Sleep apnea; Translations: [Sleep apnea, unspecified] 09-12-2022 Chronic Residual codes; unclassified (7 sources) Sleep apnea, unspecified; Translations: [Unspecified sleep apnea] Onset: 09-17-2022 09-17-2022 Chronic Residual codes; unclassified (20 sources) Asymptomatic menopausal state; Translations: [Menopause] Episodic Residual codes; unclassified (2 sources) Postmenopausal state; Translations: [Asymptomatic menopausal state] Episodic Respiratory failure; insufficiency; arrest (adult) (20 sources) Dependence on supplemental oxygen; Translations: [Chronic hypoxemic respiratory failure] Onset: 11-14-2021 09-11-2022 Chronic Rheumatoid arthritis and related disease (20 sources) Rheumatoid arthritis of multiple joints; Translations: [Rheumatoid arthritis with rheumatoid factor of multiple sites without organ or systems involvement] Onset: 11-09-2020 11-09-2020 Chronic Spondylosis; intervertebral disc disorders; other back problems (20 sources) Spondylosis without myelopathy or radiculopathy, lumbar region; Translations: [Lumbar spondylosis] Onset: 07-22-2021 Chronic Spondylosis; intervertebral disc disorders; other back problems (5 sources) Dorsalgia, unspecified; Translations: [Low back pain] Onset: 07-20-2021 Episodic Substance-related disorders (20 sources) Nicotine dependence, cigarettes, in remission; Translations: [Tobacco dependence in remission] Onset: 05-10-2022 Resolved: 08-27-2020 Chronic Unclassified (2 sources) CONTACT W/AND (SUSP) EXPOS COVID-19; Translations: [CONTACT W/AND (SUSP) EXPOS COVID-19] Onset: 11-06-2021 Unclassified (3 sources) LOW BACK PAIN, UNSPECIFIED; Translations: [LOW BACK PAIN, UNSPECIFIED] Onset: 07-22-2021 Unclassified (1 source) Spondylolysis, cervical region; Translations: [Spondylolysis, cervical region] Onset: 11-14-2022 Unclassified (1 source) Posterior displaced Type II dens fracture, initial encounter for closed fracture; Translations: [Posterior displaced Type II dens fracture, initial encounter for closed fracture] Onset: 09-17-2022 Unclassified (1 source) Post COVID-19 condition, unspecified; Translations: [Post COVID-19 condition, unspecified] Onset: 09-10-2022 Unclassified (1 source) Post covid-19 condition, unspecified; Translations: [Post covid-19 condition, unspecified] Onset: 10-01-2022 Viral infection (6 sources) COVID-19; Translations: [Disease caused by 2019-nCoV] Onset: 11-06-2021 Past or Other Problems Problem Classification Problem Date Documented Date Episodic/Chronic Acute bronchitis (8 sources) Acute bronchitis; Translations: [Acute bronchitis due to other specified organisms] Onset: 07-19-2014 Episodic Bacterial infection; unspecified site (12 sources) Bacteremia due to Staphylococcus aureus; Translations: [Bacteremia] Onset: 08-18-2021 Episodic Infective arthritis and osteomyelitis (except that caused by tuberculosis or sexually transmitted disease) (16 sources) Pyogenic arthritis of shoulder region; Translations: [Pyogenic arthritis, unspecified] Onset: 08-15-2021 Episodic Other circulatory disease (2 sources) Elevated blood-pressure reading without diagnosis of hypertension; Translations: [Elevated blood-pressure reading, without diagnosis of hypertension] Resolved: 10-17-2021 Episodic Other connective tissue disease (2 sources) Pain in left arm; Translations: [Pain in left arm] Resolved: 10-17-2021 Episodic Other fractures (1 source) Other fracture of sacrum, initial encounter for closed fracture; Translations: [OTH FX SACRUM INITIAL CLOS FRACTURE] Onset: 2021 Episodic Other fractures (2 sources) Closed fracture of acetabulum; Translations: [Unspecified fracture of left acetabulum, initial encounter for closed fracture] Onset: 07-21-2021 Episodic Other fractures (4 sources) Closed fracture pubis; Translations: [Other specified fracture of unspecified pubis, initial encounter for closed fracture] Onset: 07-21-2021 Resolved: 08-15-2021 Episodic Other fractures (2 sources) Late effect of fracture of spine AND/OR trunk without spinal cord lesion; Translations: [Other specified fracture of right pubis, sequela] Onset: 07-21-2021 Resolved: 08-15-2021 Episodic Other infections; including parasitic (1 source) Trichomoniasis, unspecified; Translations: [TRICHOMONIASIS UNSPECIFIED] Onset: 2021 Episodic Other non-traumatic joint disorders (4 sources) Pain in right hip; Translations: [PAIN IN RIGHT HIP] Onset: 07-12-2021 Episodic Other non-traumatic joint disorders (2 sources) Pain in right hip joint; Translations: [Pain in right hip] Resolved: 10-17-2021 Episodic Other screening for suspected conditions (not mental disorders or infectious disease) (1 source) Other specified abnormal findings of blood chemistry; Translations: [OTH SPEC ABNORMAL FINDINGS BLD CHEM] Onset: 11-14-2021 Episodic Pathological fracture (10 sources) Pathological fracture, other site, subsequent encounter for fracture with routine healing; Translations: [Pathological fracture] Onset: 07-20-2021 Resolved: 10-17-2021 Episodic Christine-; endo-; and myocarditis; cardiomyopathy (except that caused by tuberculosis or sexually transmitted disease) (2 sources) Acute rheumatic endocarditis; Translations: [Acute rheumatic endocarditis] Resolved: 10-17-2021 Episodic Respiratory failure; insufficiency; arrest (adult) (1 source) Acute respiratory failure with hypoxia; Translations: [ACUTE RESPIRATORY FAIL W/HYPOXIA] Onset: 11-14-2021 Episodic Screening and history of mental health and substance abuse codes (3 sources) Personal history of nicotine dependence; Translations: [History of tobacco use] Onset: 07-19-2014 Episodic Septicemia (except in labor) (12 sources) Septic shock; Translations: [Sepsis, unspecified organism] Onset: 08-14-2021 Episodic Sprains and strains (2 sources) Neck sprain; Translations: [Strain of muscle, fascia and tendon at neck level, initial encounter] Resolved: 10-17-2021 Episodic Unclassified (1 source) CONTACT W/AND (SUSP) EXPOS COVID-19; Translations: [CONTACT W/AND (SUSP) EXPOS COVID-19] Onset: 11-05-2021 Unclassified (1 source) LOW BACK PAIN, UNSPECIFIED; Translations: [LOW BACK PAIN, UNSPECIFIED] Onset: 07-18-2021 Unclassified (20 sources) Unclassified (20 sources) Acute bilateral low back pain without sciatica; Translations: [Acute bilateral low back pain without sciatica] Unclassified (1 source) COVID-19 danna herrera U09.9 Unclassified (1 source) Onset: 10-17-2022 10-17-2022 Unclassified (1 source) Post covid-19 condition, unspecified; Translations: [Post covid-19 condition, unspecified] Onset: 10-01-2022 Urinary tract infections (13 sources) Acute cystitis; Translations: [Acute cystitis without hematuria] Onset: 2021 Resolved: 10-17-2021 Episodic Results Test Name Value Interpretation Reference Range Facility [facility] 03-17-2023 [facility] Telephone (LAKEMDNA) ----- MIRIAM GERMAN ([id number]) 1955 F Date Time Provider Department 03/17/23 F PROVIDER [facility] During your visit today, we recorded the following information about you: Augusta Cho Ma 03/17/2023 11:43 AM Signed Attempted to contact patient via telephone regarding upcoming NEW patient appointment with Dr. Banerjee on 03/18/23. [facility] relaying the message below: This is the [facility] calling regarding your upcoming appointment with Dr. Banerjee. Please complete the assigned pre-visit questionnaires on [employer] prior to your appointment. To avoid a delay in your care, please bring any radiology images that have been done outside of the [facility] on a disk to be viewed at your appointment. Dr. Banerjee is an Interventional Pain Management provider specializing in the Spine. Please be aware that this appointment is a consult only and narcotics will NOT be prescribed. He treats with physical therapy, injections of the spine or joints, and non-narcotic medications. Dr. Banerjee will not take over and manage any medications that are already being prescribed by another provider. Dr. Banerjee does not fill disability or any other insurance-related forms/documentation Allergies As of Date: 03/17/2023 (Not on File) Date Reviewed: Never Reviewed Reason for Visit: Future Appointment [256] Cmt: Left Voice Mail. Problem List As Of Date: 03/17/2023 (None) Encounter Status:Closed by AUGUSTA CHO MA on 03/17/23 Normal [facility] Hemoglobin A1Con 11-26-2022 Glucose [Mass/Vol] 97 mg/dL Normal [facility] Comment on above: Result Comment: The ADA and AACC recommend providing the estimated average glucose result to permit better patient understanding of their HBA1c result. Performed By: #### B C #### [address] [place] [address] Snow Ranger: Collette Willard MD HbA1c (Bld) [Mass fraction] 5.0 % Normal 4.0-6.0 [facility] Comment on above: Performed By: #### B C #### [address] [place] [address] Snow Ranger: Colltete Willard MD Urinalysis, Routineon 2022 Bilirubin, SemiQt,Ur Negative Normal NEG [facility] Comment on above: Performed By: #### BRUCE Hussein #### [address] [place] [address] Snow Ranger: Collette Willard MD Blood, Urine TRACE Abnormal NEG [facility] Comment on above: Performed By: #### U BRUCE Ragsdale #### [facility] [address] [place] [address] [place] [address] Snow Ranger: Collette Willard MD Clarity (U) Clear Normal CLEAR [facility] Comment on above: Performed By: #### U A, UMICAO #### [facility] [address] [place] [address] Dr. [place], [place] [id number] Snow Ranger: Collette Willard MD Color (U) Yellow Normal YEL [facility] Comment on above: Performed By: #### U A, UMICAO #### [facility] [address] [place] [address] [place] [address] Snow Ranger: Collette Willard MD Glucose Ql (U) Negative Normal NEG [facility] Comment on above: Performed By: #### U A, UMICAO #### [facility] [address] [place] [address] Dr. [place], [place] [id number] Snow Ranger: Collette Willard MD Ketones Ql (U) Negative Normal NEG [facility] Comment on above: Performed By: #### U A, UMICAO #### [facility] [address] [place] [address] [place] [address] Snow Ranger: Collette Willard MD Leukocyte esterase Test strip Ql (U) Negative Normal NEG [facility] Comment on above: Performed By: #### U A, UMICAO #### [facility] [address] [place] [address] [place] [address] Snow Ranger: Collette Willard MD Nitrite,Ur Positive Abnormal NEG [facility] Comment on above: Performed By: #### U A, UMICAO #### [facility] [address] [place] [address] [place] [address] Snow Ranger: Collette Willard MD PH,Ur 6.0 Normal 5.0-9.0 [facility] Comment on above: Performed By: #### U A, UMICAO #### [facility] [address] [place] [address] [place] [address] Snow Ranger: Collette Willard MD Protein Ql (U) Negative Normal NEG [facility] Comment on above: Performed By: #### U A, UMICAO #### [address] [place], [place] [phone] Snow Ranger: Collette Willard MD Spec. [place],Ur 1.010 Normal 1.010-1.020 [facility] Comment on above: Performed By: #### U A, UMICAO #### [facility] [address] [place] [address] [place] [address] Snow Ranger: Collette Willard MD Urobilinogen,Ur Normal Normal 0.0-1.0 [facility] Comment on above: Performed By: #### U A, KARYNICAO #### [address] [place], [facility]83 Snow Ranger: Collette Willard MD Urinalysis,Microon 3 Bacteria 1+ Abnormal [facility] Comment on above: Performed By: #### U AJUANO #### [address] [place], [place] [id number] Snow Ranger: Collette Willard MD Crystals LM Nom (Urine sed) GREATER THAN 50 Abnormal [facility] Comment on above: Result Comment: CALC IUM OXALATE Performed By: #### U A, UMICAO #### [facility] [address] [place] [address] Dr. [place], [place] [id number] Snow Ranger: Collette Willard MD Epithelial cells LM Ql (Urine sed) 5 TO 10 Normal 0-25 [facility] Comment on above: Performed By: #### U A, UMICAO #### [address] [place], [place] [phone] Snow Ranger: Collette Willard MD Urine RBC's 0 TO 2 Normal 0-2 [facility] Comment on above: Performed By: #### U A, UMICAO #### [facility] [address] [place], [place] 5563783 Snow Ranger: Collette Willard MD Urine WBC's None Normal 0-5 [facility] Comment on above: Performed By: #### U A, UMICAO #### [facility] [address] [place], [place] [phone] Snow Ranger: Collette Willard MD Drug Scr, Abuse, Uron 2022 Amphetamine(s),Ur Negative Normal NEG [facility] Comment on above: Result Comment: (Positive cutoff 1000 ng/mL) Performed By: #### U A, KAYLA, UMICAO #### [address] [place], [place] [id number] Snow Ranger: Collette Willard MD Barbiturate(s),Ur Negative Normal NEG [facility] Comment on above: Result Comment: (Positive cutoff 200 ng/mL) Performed By: #### U A, KAYLA, UMICAO #### [address] [place], [place] 7[address]2083 Snow Ranger: Collette Willard MD Benzodiazepine(s) Negative Normal NEG [facility] Comment on above: Result Comment: (Positive cutoff 200 ng/mL) Performed By: #### U A, KAYLA, UMICAO #### [facility] [address] [place] [address] Dr. [place], [place] [phone] Snow Ranger: Collette Willard MD Buprenorphrine, Ur Negative Normal NEG [facility] Comment on above: Result Comment: (Positive cutoff 5 ng/ml) Performed By: #### U A, KAYLA, UMICAO #### [facility] [address] [place], [place] [phone] Snow Ranger: Collette Willard MD Cannabinoid(s),Ur Negative Normal NEG [facility] Comment on above: Result Comment: (Positive cutoff 50 ng/mL) Performed By: #### U A, KAYLA, UMICAO #### [address] [place], [place] [phone] Snow Ranger: Collette Willard MD Cocaine Metabolite Negative Normal [facility] Comment on above: Result Comment: (Positive cutoff 300 ng/mL) Performed By: #### U A, KAYLA, UMICAO #### [address] [place], [place] [phone] Snow Ranger: Collette Willard MD Fentanyl, Urine Negative Normal [facility] Comment on above: Result Comment: (Positive cutoff 5 ng/ml) Performed By: #### U A, KAYLA, UMICAO #### [address] [place], [place] 7386383 Snow Ranger: Collette Willard MD Interpretive Info Assay provides medic al screening only. The absence of expected drug(s) and/or Normal [facility] Comment on above: Result Comment: meta bolite(s) may indicate diluted or adulterated urine, limitations of testing or timing of collection. Testing for legal purposes should be confirmed by another method. To request confirmation of test result, please call the lab within 7 days of sample submission. Performed By: #### U A, KAYLA, UMICAO #### [address] [place], [place] 1235383 Snow Ranger: Collette Willard MD Methadone Ql (U) Negative Normal NEG [facility] Comment on above: Result Comment: (Positive cutoff 300 ng/mL) Performed By: #### U A, KAYLA, UMICAO #### [address] [place], [place] [phone] Snow Ranger: Collette Willard MD Opiate(s), Ur Negative Normal NEG [facility] Comment on above: Result Comment: (Positive cutoff 300 ng/mL) Performed By: #### U A, KAYLA, UMICAO #### [address] [place], [place] 2148283 Snow Ranger: Collette Willard MD Oxycodone, Urine Negative Normal NEG [facility] Comment on above: Result Comment: (Positive cutoff 100 ng/mL) Performed By: #### U A, KAYLA, UMICAO #### [facility] [address] [place] [address] Dr. [place], [place] [phone] Snow Ranger: Collette Willard MD Phencyclidine, Ur Negative Normal NEG [facility] Comment on above: Result Comment: (Positive cutoff 25 ng/mL) Performed By: #### U A, KAYLA, UMICAO #### [address] [place], [place] [phone] Snow Ranger: Collette Willard MD Urinalysis, Routineon 2022 Bilirubin, SemiQt,Ur SMALL Abnormal NEG [facility] Comment on above: Performed By: #### U A, KAYLA, UMICAO #### [address] [place], [place] 305[address]3 Snow Ranger: Collette Willard MD Blood, Urine 1+ Abnormal NEG [facility] Comment on above: Performed By: #### U A, KAYLA, UMICAO #### [address] [place], [place] 1871383 Snow Ranger: Collette Willard MD Clarity (U) SLIGHTLY CLOUDY Abnormal CLEAR [facility] Comment on above: Performed By: #### U A, KAYLA, UMICAO #### [facility] [address] [place] [address] Dr. [place], [place] [phone] Snow Ranger: Collette Willard MD Color (U) Yellow Normal YEL [facility] Comment on above: Performed By: #### U A, KAYLA, UMICAO #### [facility] [address] [place] [address] Dr. [place], [place] [phone] Snow Ranger: Collette Willard MD Glucose Ql (U) Negative Normal NEG [facility] Comment on above: Performed By: #### U A, KAYLA, UMICAO #### [address] [place], [place] 5347383 Snow Ranger: Collette Willard MD Ketones Ql (U) Negative Normal NEG [facility] Comment on above: Performed By: #### U A, KAYLA, UMICAO #### [address] [place], [place] [address] Snow Ranger: Collette Willard MD Leukocyte esterase Test strip Ql (U) Negative Normal NEG [facility] Comment on above: Performed By: #### U A, KAYLA, UMICAO #### [address] [place], [facility]83 Snow Ranger: Collette Willard MD Nitrite,Ur Negative Normal NEG [facility] Comment on above: Performed By: #### U A, KAYLA, UMICAO #### [address] [place], [facility]83 Snow Ranger: Collette Willard MD PH,Ur 5.5 Normal 5.0-9.0 [facility] Comment on above: Performed By: #### U A, KAYLA, UMICAO #### [address] [place], [place] [address] Snow Ranger: Collette Willard MD Protein Ql (U) TRACE Abnormal NEG [facility] Comment on above: Performed By: #### U A, KAYLA, UMICAO #### [address] [place], [place] [address] Snow Ranger: Collette Willard MD Spec. [place],Ur 1.020 Normal 1.010-1.020 [facility] Comment on above: Performed By: #### U A, KAYLA, UMICAO #### [address] [place], [facility]83 Snow Ranger: Collette Willard MD Urobilinogen,Ur Normal Normal 0.0-1.0 [facility] Comment on above: Performed By: #### U A KAYLA UMICAO #### [facility] [address] [place], [place] [phone] Snow Ranger: Collette Willard MD Urinalysis,Microon 3 Bacteria 1+ Abnormal NONE [facility] Comment on above: Performed By: #### U A KAYLA, UMICAO #### [facility] [address] [place], [place] [phone] Snow Ranger: Collette Willard MD Epithelial cells LM Ql (Urine sed) 2 TO 5 Normal 0-25 [facility] Comment on above: Performed By: #### U AKAYLA UMICAO #### [facility] [address] [place] [address] Dr. [place], [place] [phone] Snow Ranger: Collette Willard MD Mucus Strands TRACE Abnormal NONE [facility] Comment on above: Performed By: #### U AKAYLA UMICAO #### [facility] [address] [place] [address] Dr. [place], [place] [phone] Snow Ranger: Collette Willard MD Urine RBC's 0 TO 2 Normal 0-2 [facility] Comment on above: Performed By: #### U A KAYLAKARYN NegroICAO #### [facility] [address] [place] [address] Dr. [place], [place] [phone] Snow Ranger: Collette Willard MD Urine WBC's 0 TO 2 Normal 0-5 [facility] Comment on above: Performed By: #### U A KAYLA UMICAO #### [facility] [address] [place], [place] [phone] Snow Ranger: Collette Willard MD XR cervical spine 2Von 11-14 XR cervical spine 2V [facility] Main [place] [address] [place], [place] [id number] XRay Report Signed Patient: Miriam German MR#: [id number] : 1955 Acct:[id number] Age/Sex: 67 / F ADM Date: 11/14/22 Loc: XD Room: Type: [facility] Attending Dr: Moises Garcia MD Copies to: Moises Garcia MD Ordering Provider: Moises Garcia MD Date of Service: 11/14/22 XR/XR cervical spine 2V: M43.02 CERVICAL SPINE 2 views: CLINICAL HISTORY: Increased neck pain and posterior headache for one week COMPARISON: CT cervical spine 10/27/2022 FINDINGS: Moderate spondylosis C4-C7 with diffuse facet joint degenerative changes grossly similar to the prior CT study. No prevertebral soft tissue swelling is seen. Posterior fixation is seen involving the C1 and C2 levels. XR/XR cervical spine 2V IMPRESSION: MODERATE SPONDYLOSIS C4-C7 SIMILAR TO THE PRIOR CT STUDY. Impression dictated by: Tom Coates Jr., DNickONick11/14/2022 3:16 PM Dictation Location: [place] [address] Transcribed By: [facility] 11/14/22 151 Dictated By: Tom Coates Jr, DO 11/14/22 151 Signed By: 11/14/22 151 [facility] CBC with Auto Differentialon 10-27-2022 Basophils (Bld) [#/Vol] 0.06 10*3/uL [facility] Basophils/100 WBC (Bld) 1 % 0 - 2 % [facility] Eosinophils (Bld) [#/Vol] 0.04 10*3/uL [facility] Eosinophils/100 WBC (Bld) 0 % Low 1 - 4 % [employer] Erythrocyte distribution width (RBC) [Ratio] 14.6 % High 11.8 - 14.4 % [facility] Hematocrit (Bld) [Volume fraction] 40.7 % 36.3 - 47.1 % [facility] Hemoglobin (Bld) [Mass/Vol] 13.0 g/dL 11.9 - 15.1 g/dL [facility] Immature granulocytes (Bld) [#/Vol] 0.34 10*3/uL High [facility] Immature granulocytes/100 WBC (Bld) 3 % High 0 [facility] Interpretation and review of laboratory results Abnormal [facility] Lymphocytes/100 WBC (Bld) 10 % Low 24 - 43 % [facility] Lymphocytes/100 WBC (Bld) 0.98 % Low [facility] MCH (RBC) [Entitic mass] 30.2 pg 25.2 - 33.5 pg [facility] MCHC (RBC) [Mass/Vol] 31.9 g/dL 28.4 - 34.8 g/dL [facility] MCV (RBC) [Entitic vol] 94.4 fL 82.6 - 102.9 fL [facility] Monocytes/100 WBC (Bld) 3 % 3 - 12 % [facility] Monocytes/100 WBC (Bld) 0.35 % [facility] Neutrophils/100 WBC (Bld) 83 % High 36 - 65 % [facility] Nucleated RBC/100 WBC (Bld) [Ratio] 0.0 % 0.0 per 100 WBC [facility] Platelet mean volume (Bld) [Entitic vol] 9.6 fL 8.1 - 13.5 fL [facility] Platelets (Bld) [#/Vol] 166 10*3/uL [facility] RBC (Bld) [#/Vol] 4.31 10*6/uL 3.95 - 5.1 1 m/uL [facility] Segmented neutrophils/100 WBC (Bld) 8.60 % High [facility] WBC other (Bld) [#/Vol] 10.4 [facility] CBC with Diffon 10-27-2022 Abs. Basophil 0.06 k/uL Normal 0.00-0.20 [facility] Comment on above: Performed By: #### C P, CBC #### [facility] [address] [place] [address] Snow Ranger: Collette Willard MD Abs.Imm.Granulocyte 0.34 k/uL High 0.00-0.30 [facility] Comment on above: Performed By: #### C P, CBC #### [address] [place] [address] Snow Ranger: Collette Willard MD Abs.Neutrophil (Seg) 8.60 k/uL High 1.50-8.10 [facility] Comment on above: Performed By: #### C P, CBC #### [address] [place], [facility]83 Snow Ranger: Collette Willard MD Basophils/100 WBC (Bld) 1 % Normal 0-2 [facility] Comment on above: Performed By: #### C P, CBC #### [address] [place] [phone] Snow Ranger: Collette Willard MD Eosinophils (Bld) [#/Vol] 0.04 10*3/uL Normal 0.00-0.44 [facility] Comment on above: Performed By: #### C P, CBC #### [address] [place] [phone] Snow Ranger: Collette Willard MD Eosinophils/100 WBC (Bld) 0 % Low 1-4 [facility] Comment on above: Performed By: #### C P, CBC #### [address] [place], [facility]83 Snow Ranger: Collette Willard MD Erythrocyte distribution width (RBC) [Ratio] 14.6 % High 11.8-14.4 [facility] Comment on above: Performed By: #### C P, CBC #### [address] [place] [phone] Snow Ranger: Collette Willard MD Hematocrit (Bld) [Volume fraction] 40.7 % Normal 36.3-47.1 [facility] Comment on above: Performed By: #### C P, CBC #### [facility] [address] [place], [place] [phone] Snow Ranger: Collette Willard MD Hemoglobin (Bld) [Mass/Vol] 13.0 g/dL Normal 11.9-15.1 [facility] Comment on above: Performed By: #### C P, CBC #### [facility] [address] [place], [facility]83 Snow Ranger: Collette Willard MD Immature granulocytes/100 WBC (Bld) 3 % High 0 [facility] Comment on above: Performed By: #### C P, CBC #### [address] [place] [address] Snow Ranger: Collette Willard MD Lymphocytes (Bld) [#/Vol] 0.98 10*3/uL Low 1.10-3.70 [facility] Comment on above: Performed By: #### C P, CBC #### [address] [place], [facility]83 Snow Ranger: Collette Willard MD Lymphocytes/100 WBC (Bld) 10 % Low 24-43 [facility] Comment on above: Performed By: #### C P, CBC #### [address] [place] [address] Snow Ranger: Collette Willard MD MCH (RBC) [Entitic mass] 30.2 pg Normal 25.2-33.5 [facility] Comment on above: Performed By: #### C P, CBC #### [address] [place] [address] Snow Ranger: Collette Willard MD MCHC (RBC) [Mass/Vol] 31.9 g/dL Normal 28.4-34.8 [facility] Comment on above: Performed By: #### C P, CBC #### [address] [place] [address] Snow Ranger: Collette Willard MD MCV (RBC) [Entitic vol] 94.4 fL Normal 82.6-102.9 [facility] Comment on above: Performed By: #### C P, CBC #### [facility] [address] [place], [place] [phone] Snow Ranger: Collette Willard MD Monocytes (Bld) [#/Vol] 0.35 10*3/uL Normal 0.10-1.20 [facility] Comment on above: Performed By: #### C P, CBC #### [address] [place], [place] [phone] Snow Ranger: Collette Willard MD Monocytes/100 WBC (Bld) 3 % Normal 3-12 [facility] Comment on above: Performed By: #### C P, CBC #### [address] [place], [place] [phone] Snow Ranger: Collette Willard MD Neutrophil (Seg) 83 % High 36-65 [facility] Comment on above: Performed By: #### C P, CBC #### [address] [place], [place] 8[address]83 Snow Ranger: Collette Willard MD NRBC Automated 0.0 per 100 WBC Normal 0.0 [facility] Comment on above: Performed By: #### C P, CBC #### [address] [place], [place] [phone] Snow Ranger: Collette Willard MD Platelet mean volume (Bld) [Entitic vol] 9.6 fL Normal 8.1-13.5 [facility] Comment on above: Performed By: #### C P, CBC #### [address] [place] [address] Snow Ranger: Collette Willard MD Platelets (Bld) [#/Vol] 166 10*3/uL Normal 138-453 [facility] Comment on above: Performed By: #### C P, CBC #### [facility] [address] [place] [address] Snow Ranger: Collette Willard MD RBC (Bld) [#/Vol] 4.31 10*6/uL Normal 3.95-5.11 [facility] Comment on above: Performed By: #### C P, CBC #### [facility] [address] [place] [address] Snow Ranger: Collette Willard MD WBC (Bld) [#/Vol] 10.4 10*3/uL Normal 3.5-11.3 [facility] Comment on above: Performed By: #### C P, CBC #### [facility] [address] [place] [address] Snow Ranger: Collette Willard MD [facility] 10-27-2022 Albumin [Mass/Vol] 3.6 g/dL 3.5 - 5.2 g/dL [facility] Albumin/Globulin [Mass ratio] 1.6 {ratio} 1.0 - 2.5 [facility] ALP [Catalytic activity/Vol] 152 U/L High 35 - 104 U/L [facility] ALT [Catalytic activity/Vol] 47 U/L High 5 - 33 U/L [facility] Anion gap [Moles/Vol] 9 mmol/L 9 - 17 mmol/L [facility] AST [Catalytic activity/Vol] 38 U/L High NINF - 32 U/L [facility] Bilirubin [Mass/Vol] 0.3 mg/dL 0.3 - 1 .2 mg/dL [facility] Calcium [Mass/Vol] 9.5 mg/dL 8.6 - 10. 4 mg/dL [facility] Chloride [Moles/Vol] 102 mmol/L 98 - 10 7 mmol/L [facility] CO2 [Moles/Vol] 30 mmol/L 20 - 31 mmol/L [facility] Creatinine [Mass/Vol] 0.3 mg/dL Low 0.5 - 0.9 mg/dL [facility] GFR/1.73 sq M.predicted MDRD (S/P/Bld) [Vol rate/Area] - PINF [facility] Comment on above: These results are not intended for use in patients <18 years of age. eGFR results are calculated without a race factor using the 2020 CKD-EPI equation. Careful clinical correlation is recommended, particularly when comparing to results calculated using previous equations. The CKD-EPI equation is less accurate in patients with extremes of muscle mass, extra-renal metabolism of creatine, excessive creatine ingestion, or following therapy that affects renal tubular secretion. Glucose [Mass/Vol] 118 mg/dL High 70 - 99 mg/dL [facility] [employer] Interpretation and review of laboratory results Abnormal [facility] Potassium [Moles/Vol] 4.1 mmol/L 3.7 - 5.3 mmol/L [facility] [employer] Protein [Mass/Vol] 5.9 g/dL Low 6.4 - 8.3 g/dL [facility] Sodium [Moles/Vol] 141 mmol/L 135 - 144 mmol/L [facility] Urea nitrogen [Mass/Vol] 11 mg/dL 8 - 23 mg/dL [facility] Urea nitrogen/Creatinine [Mass ratio] 37 mg/mg High 9 - 20 [facility] CT CERVICAL SPINE WO CONTRAS Ton 10-27-2022 CT CERVICAL SPINE WO CONTRAST EXAMINATION: CT OF THE CERVICAL SPINE WITHOUT CONTRAST 10/27/2022 2:01 pm TECHNIQUE: CT of the cervical spine was performed without the administration of intravenous contrast. Multiplanar reformatted images are provided for review. Automated exposure control, iterative reconstruction, and/or weight based adjustment of the mA/kV was utilized to reduce the radiation dose to as low as reasonably achievable. COMPARISON: CT cervical spine performed 08/15/2021. HISTORY: ORDERING SYSTEM PROVIDED HISTORY: pain TECHNOLOGIST PROVIDED HISTORY: pain Decision Support Exception - unselect if not a suspected or confirmed emergency medical condition->Emergency Medical Condition (MA) FINDINGS: BONES/ALIGNMENT: There is a remote dens fracture with hardware fixation of the C1-C2 level posteriorly. The vertebral body heights are maintained. There is no acute fracture or malalignment. There is no spondylolisthesis. DEGENERATIVE CHANGES: There is multilevel degenerative disc disease with endplate osteophytosis and disc space narrowing most pronounced at the C4-5, C5-6, and C6-7 levels. There is no canal stenosis. There is bony foraminal narrowing throughout the mid cervical spine bilaterally. SOFT TISSUES: There is no prevertebral soft tissue swelling. IMPRESSION: No acute fracture or malalignment of the cervical spine. Remote dens fracture with posterior fixation at C1-C2. 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 Interpreted by: Jaiden Mendez MD Signed by: Jaiden Mendez MD 10/27/22 Final result Normal [facility] CT CSpine W/O Contraston No acute fracture or malalignment of the cervical spine. Remote dens fracture with posterior fixation at C1-C2. 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 [facility] EXAMINATION: CT OF THE CERVICAL SPINE WITHOUT CONTRAST 10/27/2022 2:01 pm TECHNIQUE: CT of the cervical spine was performed without the administration of intravenous contrast. Multiplanar reformatted images are provided for review. Automated exposure control, iterative reconstruction, and/or weight based adjustment of the mA/kV was utilized to reduce the radiation dose to as low as reasonably achievable. COMPARISON: CT cervical spine performed 08/15/2021. HISTORY: ORDERING SYSTEM PROVIDED HISTORY: pain TECHNOLOGIST PROVIDED HISTORY: pain Decision Support Exception - unselect if not a suspected or confirmed emergency medical condition->Emergency Medical Condition (MA) FINDINGS: BONES/ALIGNMENT: There is a remote dens fracture with hardware fixation of the C1-C2 level posteriorly. The vertebral body heights are maintained. There is no acute fracture or malalignment. There is no spondylolisthesis. DEGENERATIVE CHANGES: There is multilevel degenerative disc disease with endplate osteophytosis and disc space narrowing most pronounced at the C4-5, C5-6, and C6-7 levels. There is no canal stenosis. There is bony foraminal narrowing throughout the mid cervical spine bilaterally. SOFT TISSUES: There is no prevertebral soft tissue swelling. [facility] Jaiden Mendez MD - 10/27/2022 EXAMINATION: CT OF THE CERVICAL SPINE WITHOUT CONTRAST 10/27/2022 2:01 pm TECHNIQUE: CT of the cervical spine was performed without the administration of intravenous contrast. Multiplanar reformatted images are provided for review. Automated exposure control, iterative reconstruction, and/or weight based adjustment of the mA/kV was utilized to reduce the radiation dose to as low as reasonably achievable. COMPARISON: CT cervical spine performed 08/15/2021. HISTORY: ORDERING SYSTEM PROVIDED HISTORY: pain TECHNOLOGIST PROVIDED HISTORY: pain Decision Support Exception - unselect if not a suspected or confirmed emergency medical condition->Emergency Medical Condition (MA) FINDINGS: BONES/ALIGNMENT: There is a remote dens fracture with hardware fixation of the C1-C2 level posteriorly. The vertebral body heights are maintained. There is no acute fracture or malalignment. There is no spondylolisthesis. DEGENERATIVE CHANGES: There is multilevel degenerative disc disease with endplate osteophytosis and disc space narrowing most pronounced at the C4-5, C5-6, and C6-7 levels. There is no canal stenosis. There is bony foraminal narrowing throughout the mid cervical spine bilaterally. SOFT TISSUES: There is no prevertebral soft tissue swelling. IMPRESSION: No acute fracture or malalignment of the cervical spine. Remote dens fracture with posterior fixation at C1-C2. 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 [facility] Radiology Study observation (narrative) [facility] CT HEAD WO CONTRASTon 2022 CT HEAD WO CONTRAST EXAMINATION: CT OF THE HEAD WITHOUT CONTRAST 10/27/2022 2:00 pm TECHNIQUE: CT of the head was performed without the administration of intravenous contrast. Automated exposure control, iterative reconstruction, and/or weight based adjustment of the mA/kV was utilized to reduce the radiation dose to as low as reasonably achievable. COMPARISON: None. HISTORY: ORDERING SYSTEM PROVIDED HISTORY: pain TECHNOLOGIST PROVIDED HISTORY: pain Decision Support Exception - unselect if not a suspected or confirmed emergency medical condition->Emergency Medical Condition (MA) FINDINGS: BRAIN/VENTRICLES: There is no acute intracranial hemorrhage, mass effect, or midline shift. There is satisfactory overall norris-white matter differentiation. The ventricular structures are symmetric and unremarkable. The infratentorial structures are unremarkable. ORBITS: The visualized portion of the orbits demonstrate no acute abnormality. SINUSES: The paranasal sinuses are normally aerated. There is fluid throughout the mastoid air cells. SOFT TISSUES/SKULL: No acute abnormality of the visualized skull or soft tissues. IMPRESSION: No acute intracranial abnormality. Fluid throughout the mastoid air cells representing effusion versus a degree of mastoiditis. Interpreted by: Jaiden Mendez MD Signed by: Jaiden Mendez MD 10/27/22 Final result Normal [facility] CT Head W/O Contraston 10-27 No acute intracrania l abnormality. Fluid throughout the mastoid air cells representing effusion versus a degree of mastoiditis. [facility] EXAMINATION: CT OF THE HEAD WITHOUT CONTRAST 10/27/2022 2:00 pm TECHNIQUE: CT of the head was performed without the administration of intravenous contrast. Automated exposure control, iterative reconstruction, and/or weight based adjustment of the mA/kV was utilized to reduce the radiation dose to as low as reasonably achievable. COMPARISON: None. HISTORY: ORDERING SYSTEM PROVIDED HISTORY: pain TECHNOLOGIST PROVIDED HISTORY: pain Decision Support Exception - unselect if not a suspected or confirmed emergency medical condition->Emergency Medical Condition (MA) FINDINGS: BRAIN/VENTRICLES: There is no acute intracranial hemorrhage, mass effect, or midline shift. There is satisfactory overall norris-white matter differentiation. The ventricular structures are symmetric and unremarkable. The infratentorial structures are unremarkable. ORBITS: The visualized portion of the orbits demonstrate no acute abnormality. SINUSES: The paranasal sinuses are normally aerated. There is fluid throughout the mastoid air cells. SOFT TISSUES/SKULL: No acute abnormality of the visualized skull or soft tissues. [facility] Jaiden Mendez MD - 10/27/2022 EXAMINATION: CT OF THE HEAD WITHOUT CONTRAST 10/27/2022 2:00 pm TECHNIQUE: CT of the head was performed without the administration of intravenous contrast. Automated exposure control, iterative reconstruction, and/or weight based adjustment of the mA/kV was utilized to reduce the radiation dose to as low as reasonably achievable. COMPARISON: None. HISTORY: ORDERING SYSTEM PROVIDED HISTORY: pain TECHNOLOGIST PROVIDED HISTORY: pain Decision Support Exception - unselect if not a suspected or confirmed emergency medical condition->Emergency Medical Condition (MA) FINDINGS: BRAIN/VENTRICLES: There is no acute intracranial hemorrhage, mass effect, or midline shift. There is satisfactory overall norris-white matter differentiation. The ventricular structures are symmetric and unremarkable. The infratentorial structures are unremarkable. ORBITS: The visualized portion of the orbits demonstrate no acute abnormality. SINUSES: The paranasal sinuses are normally aerated. There is fluid throughout the mastoid air cells. SOFT TISSUES/SKULL: No acute abnormality of the visualized skull or soft tissues. IMPRESSION: No acute intracranial abnormality. Fluid throughout the mastoid air cells representing effusion versus a degree of mastoiditis. [facility] Radiology Study observation (narrative) [facility] CT Head W/O ContrastOrdered By: Jaiden Mendez on 10-27-2022 [facility] Work Phone: Comp Metabolic Profon 2022 Albumin [Mass/Vol] 3.6 g/dL Normal 3.5-5.2 [facility] Comment on above: Performed By: #### C P, CBC #### [facility] [address] [place] [address] [place] [address] Snow Ranger: Collette Willard MD Albumin/Glob Ratio 1.6 Normal 1.0-2.5 [facility] Comment on above: Performed By: #### C P, CBC #### [facility] [address] [place] [address] [place] [address] Snow Ranger: Collette Willard MD Alkaline Phos 152 U/L High 35-104 [facility] Comment on above: Performed By: #### C P, CBC #### [facility] [address] [place] [address] Snow Ranger: Collette Willadr MD ALT [Catalytic activity/Vol] 47 U/L High 5-33 [facility] Comment on above: Performed By: #### C P, CBC #### [facility] [address] [place] [address] Snow Ranger: Collette Willard MD Anion gap [Moles/Vol] 9 mmol/L Normal 9-17 [facility] Comment on above: Performed By: #### C P, CBC #### [facility] [address] [place], [place] [id number] Snow Ranger: Collette Willard MD AST [Catalytic activity/Vol] 38 U/L High <32 [facility] Comment on above: Performed By: #### C P, CBC #### [facility] [address] [place], [place] [id number] Snow Ranger: Collette Willard MD Bilirubin [Mass/Vol] 0.3 mg/dL Normal 0.3-1.2 [facility] Comment on above: Performed By: #### C P, CBC #### [facility] [address] [place], [place] [id number] Snow Ranger: Collette Willard MD BUN/CRE Ratio 37 High 9-20 [facility] Comment on above: Performed By: #### C P, CBC #### [facility] [address] [place], [place] [id number] Snow Ranger: Collette Willard MD Calcium [Mass/Vol] 9.5 mg/dL Normal 8.6-10.4 [facility] Comment on above: Performed By: #### C P, CBC #### [facility] [address] [place], [place] [id number] Snow Ranger: Collette Willard MD Chloride [Moles/Vol] 102 mmol/L Normal 98-107 [facility] Comment on above: Performed By: #### C P, CBC #### [facility] [address] [place], [place] [id number] Snow Ranger: Collette Willard MD CO2 [Moles/Vol] 30 mmol/L Normal 20-31 [facility] Comment on above: Performed By: #### C P, CBC #### [facility] [address] [place] [address] Snow Ranger: Collette Willard MD Creatinine [Mass/Vol] 0.3 mg/dL Low 0.5-0.9 [facility] Comment on above: Performed By: #### C P, CBC #### [facility] [address] [place] [address] Snow Ranger: Collette Willard MD GFR/1.73 sq M.predicted among non-blacks MDRD (S/P/Bld) [Vol rate/Area] mL/min/{1.73_m2} Normal >60 [facility] Comment on above: Result Comment: These results are not intended for use in patients <18 years of age. eGFR results are calculated without a race factor using the 2020 CKD-EPI equation. Careful clinical correlation is recommended, particularly when comparing to results calculated using previous equations. The CKD-EPI equation is less accurate in patients with extremes of muscle mass, extra-renal metabolism of creatine, excessive creatine ingestion, or following therapy that affects renal tubular secretion. Performed By: #### C P, CBC #### [facility] [address] [place] [address] Snow Ranger: Collette Willard MD Glucose [Mass/Vol] 118 mg/dL High 70-99 [facility] Comment on above: Performed By: #### C P, CBC #### [facility] [address] [place] [address] Snow Ranger: Collette Willard MD Potassium [Moles/Vol] 4.1 mmol/L Normal 3.7-5.3 [facility] Comment on above: Performed By: #### C P, CBC #### [facility] [address] [place] [address] Snow Ranger: Collette Willard MD Protein [Mass/Vol] 5.9 g/dL Low 6.4-8.3 [facility] Comment on above: Performed By: #### C P, CBC #### [facility] [address] [place] [address] Snow Ranger: Collette Willard MD Sodium [Moles/Vol] 141 mmol/L Normal 135-144 [facility] Comment on above: Performed By: #### C P, CBC #### [facility] [address] [place] [address] Snow Ranger: Collette Willard MD Urea nitrogen [Mass/Vol] 11 mg/dL Normal 11-12 [facility] Comment on above: Performed By: #### C P, CBC #### [facility] [address] [place] [address] Snow Ranger: Collette Willard MD ABORH TYPE RECONFIRMATIONon 10-17-2022 ABO/RH(D) TYPE Positive Normal [facility] Comment on above: Result Comment: @ 04:42 by AS1: Performed By: #### T YPEC #### [facility] (DEFAULT) [address] [place] [address] ABO/RH(D) TYPE Positive [facility] Comment on above: @10/17/22 04:42 by A S1: [facility] No Panel Informationon 10-16 [facility] XR Cervical spine 2 Viewson 10-16-2022 IMPRESSION: Status post posterior spacer and cerclage wire fixation at the level of C1-2 Incompletely healed dens fracture which is aligned with the body of C2. This could be positional particularly given the lack of recent intervention. OLOGY EXAM: XR SPINE CERVI FLOYD 2 VIEWS VIEWS , 10/16/2022 19:20 PM COMPARISON: CT of the cervical spine October 14, 2022 and radiographs October 14, 2022 CLINICAL INDICATIONS: upright c-spin XR per NSGY RELEVANT CLINICAL HISTORY: FINDINGS: 2 images obtained. Cervical Vertebral: There is redemonstration of a posterior spacer with a cerclage wire at the level of C1-2.. There is surrounding bone graft material better appreciated on the CT. There is a grossly stable there is redemonstration of a incomplete healed fracture of the dens which on today's exam appears aligned with the body of C2. There is disc disease at C4-5 and C5-6. Facets are aligned. RADIOLOGY Radha Muniz D O - 10/16/2022 EXAM: XR SPINE CERVICAL 2 VIEWS VIEWS , 10/16/2022 19:20 PM COMPARISON: CT of the cervical spine October 14, 2022 and radiographs October 14, 2022 CLINICAL INDICATIONS: upright c-spin XR per NSGY RELEVANT CLINICAL HISTORY: FINDINGS: 2 images obtained. Cervical Vertebral: There is redemonstration of a posterior spacer with a cerclage wire at the level of C1-2.. There is surrounding bone graft material better appreciated on the CT. There is a grossly stable there is redemonstration of a incomplete healed fracture of the dens which on today's exam appears aligned with the body of C2. There is disc disease at C4-5 and C5-6. Facets are aligned. IMPRESSION IMPRESSION: Status post posterior spacer and cerclage wire fixation at the level of C1-2 Incompletely healed dens fracture which is aligned with the body of C2. This could be positional particularly given the lack of recent intervention. [facility] Radiology Study observation (narrative) [facility] XR Cervical spine 2 ViewsOrd ered By: Radha Muniz on 10-16-2022 [facility] Work Phone: XR SPINE CERVICAL 2 VIEWSon 10-16-2022 XR SPINE CERVICAL 2 VIEWS EXAM: XR SPINE CERVICAL 2 VIEWS VIEWS , 10/16/2022 19:20 PM COMPARISON: CT of the cervical spine October 14, 2022 and radiographs October 14, 2022 CLINICAL INDICATIONS: upright c-spin XR per NSGY RELEVANT CLINICAL HISTORY: FINDINGS: 2 images obtained. Cervical Vertebral: There is redemonstration of a posterior spacer with a cerclage wire at the level of C1-2.. There is surrounding bone graft material better appreciated on the CT. There is a grossly stable there is redemonstration of a incomplete healed fracture of the dens which on today's exam appears aligned with the body of C2. There is disc disease at C4-5 and C5-6. Facets are aligned. IMPRESSION: Status post posterior spacer and cerclage wire fixation at the level of C1-2 Incompletely healed dens fracture which is aligned with the body of C2. This could be positional particularly given the lack of recent intervention. Normal [facility] EXTRA MICROon 10-15-2022 [facility] MRI BRAIN WO CONTRASTon - MRI BRAIN WO CONTRAST EXAMINATION: MRI OF THE BRAIN WITHOUT CONTRAST 10/13/2022 10:55 am TECHNIQUE: Multiplanar multisequence MRI of the brain was performed without the administration of intravenous contrast. COMPARISON: None. HISTORY: ORDERING SYSTEM PROVIDED HISTORY: neck surgery one month ago; numbness below both elbows and bilateral LE weakness (acute) TECHNOLOGIST PROVIDED HISTORY: neck surgery one month ago; numbness below both elbows and bilateral LE weakness (acute) FINDINGS: INTRACRANIAL STRUCTURES/VENTRICLES: There is no acute infarct. No mass effect or midline shift. No evidence of an acute intracranial hemorrhage. The ventricles and sulci are normal in size and configuration. The sellar/suprasellar regions appear unremarkable. The normal signal voids within the major intracranial vessels appear maintained. Scattered white matter abnormalities are nonspecific but commonly attributed to chronic microvascular ischemia. ORBITS: The visualized portion of the orbits demonstrate no acute abnormality. SINUSES: There are large bilateral mastoid effusions. BONES/SOFT TISSUES: The bone marrow signal intensity appears normal. The soft tissues demonstrate no acute abnormality. IMPRESSION: No acute intracranial abnormality. Nonspecific mastoid effusions. Interpreted by: Nahid Jeffries MD Signed by: Nahid Jeffries MD 10/14/22 Final result Normal [facility] MRI CERVICAL SPINE W WO CONT RASTon 10-15-2022 MRI CERVICAL SPINE W WO CONTRAST EXAMINATION: MRI OF THE CERVICAL SPINE WITHOUT AND WITH CONTRAST 10/13/2022 10:55 am: TECHNIQUE: Multiplanar multisequence MRI of the cervical spine was performed without and with the administration of intravenous contrast. COMPARISON: None. HISTORY: ORDERING SYSTEM PROVIDED HISTORY: neck surgery one month ago; numbness below both elbows and bilateral LE weakness (acute) TECHNOLOGIST PROVIDED HISTORY: neck surgery one month ago; numbness below both elbows and bilateral LE weakness (acute) FINDINGS: BONES/ALIGNMENT: There appears to be a subacute type 2 odontoid fracture. Possible fractures of C1 are not well evaluated. There appear to be posterior cerclage wires at C1-2 which are incompletely evaluated. There is enhancing dorsal epidural soft tissue thickening from the foramen magnum down to C2 which contributes to severe thecal sac stenosis at C2-3. SPINAL CORD: There is suspected T2 hyperintense cord signal abnormality at C1 seen only on the sagittal images. SOFT TISSUES: There is a 21 x 49 x 40 mm midline dorsal paraspinal fluid collection from the skull base down to C3. C1-2: Mild thecal sac stenosis. C2-C3: Severe thecal sac stenosis due to dorsal epidural enhancing soft tissue. C3-C4: Disc osteophyte complex, uncovertebral and facet hypertrophy cause mild thecal sac and severe bilateral foraminal stenosis. C4-C5: Disc osteophyte complex, uncovertebral and facet hypertrophy cause mild thecal sac and severe bilateral foraminal stenosis. C5-C6: Disc osteophyte complex, uncovertebral and facet hypertrophy cause moderate thecal sac and severe bilateral foraminal stenosis. C6-C7: Disc osteophyte complex and uncovertebral hypertrophy cause moderate thecal sac and severe bilateral foraminal stenosis. C7-T1: Facet hypertrophy causes mild bilateral foraminal stenosis. IMPRESSION: 1. Suspected subacute odontoid fracture and possible C1 fractures. Correlate with any outside prior imaging. 2. Dorsal postoperative changes with dorsal enhancing soft tissue contributing to severe thecal sac stenosis at C2-3. 3. Cord edema at C1. 4. Dorsal paraspinal fluid collection from the occiput-C3. Interpreted by: Nahid Jeffries MD Signed by: Nahid Jeffries MD 10/14/22 Final result Normal [facility] BLOOD CULTUREon 10-14-2022 Bacteria identified Cx Nom (Unsp spec) NO GROWTH DAY 5 OF 5 Normal [facility] Comment on above: Order Comment: 2 Bot tles (1 Set - consists of 1 Aerobic bottle and 1 Anaerobic bottle) - 1st Peripheral Draw For syringe method draw: If able to obtain adequate sample (20 ml) inoculate anaerobic bottle first If inadequate sample obtained (less than 20 ml) inoculate aerobic bottle first For vacutainer method draw: Fill aerobic bottle first, then anaerobic Results may be compromised due to volume of BACT\ALERT bottle below 8mLs. The optimal blood volume is 8-10 mls per aerobic/anaerobic blood culture bottle Performed By: #### B LDCULT #### [facility] (DEFAULT) [address] [address] Order Comment: 2 Bot tles (1 Set - consists of 1 Aerobic bottle and 1 Anaerobic bottle) -1st Peripheral DrawFor syringe method draw:If able to obtain adequate sample (20 ml) inoculate anaerobic bottle firstIf inadequate sample obtained (less than 20 ml) inoculate aerobic bottle firstFor vacutainer method draw: Fill aerobic bottle first, then anaerobicResults may be compromised due to volume of BACT\ALERT bottle below 8mLs. The optimal blood volume is 8-10 mls per aerobic/anaerobic blood culture bottle Performed By: #### C 7ED #### [facility] (DEFAULT) [address] [address] C REACTIVE PROTEINon 023 CRP [Mass/Vol] 17.94 mg/L High <10.00 [facility] Comment on above: Performed By: #### C 7ED #### [facility] (DEFAULT) [address] [address] CRP High sensitivity method [Mass/Vol] 17.94 mg/L High NINF - 10.00 mg/L [facility] Interpretation and review of laboratory results Abnormal [facility] CBC AND ELECTRONIC DIFFon Abs Eos Auto < Normal 0.00-0.42 [facility] Comment on above: Performed By: #### L [id number] #### [facility] (DEFAULT) [address] [address] Basophils (Bld) [#/Vol] 0.05 10*3/uL Normal 0.00-0.15 [facility] Comment on above: Performed By: #### L [id number] #### [facility] (DEFAULT) [address] [address] Basophils/100 WBC (Bld) 0.7 % Normal [facility] Comment on above: Performed By: #### L [id number] #### [facility] (DEFAULT) [address] [address] DIFF STATUS Electronic Differential Normal [facility] Comment on above: Performed By: #### L [id number] #### [facility] (DEFAULT) [address] [address] Eosinophils/100 WBC (Bld) 0.0 % Normal [facility] Comment on above: Performed By: #### L [id number] #### [facility] (DEFAULT) [address] [address] Hematocrit (Bld) [Volume fraction] 45.9 % High 34.9-44.3 [facility] Comment on above: Performed By: #### L [id number] #### [facility] (DEFAULT) [address] [address] Hemoglobin (Bld) [Mass/Vol] 14.6 g/dL Normal 11.4-15.2 [facility] Comment on above: Performed By: #### L [id number] #### [facility] (DEFAULT) [address] [address] Immature Grans % 4.7 % Normal [facility] Comment on above: Performed By: #### L [id number] #### [facility] (DEFAULT) [address] [address] Immature Grans Absolute 0.36 K/uL High <=0.08 [facility] Comment on above: Performed By: #### L [id number] #### [facility] (DEFAULT) [address] [address] Lymphocytes (Bld) [#/Vol] 0.40 10*3/uL Low 1.16-3.51 [facility] Comment on above: Performed By: #### L [id number] #### [facility] (DEFAULT) [address] [address] Lymphocytes/100 WBC (Bld) 5.2 % Normal [facility] Comment on above: Performed By: #### L [id number] #### [facility] (DEFAULT) [address] [address] MCV (RBC) [Entitic vol] 96.2 fL Normal 79.6-97.7 [facility] Comment on above: Performed By: #### L [id number] #### [facility] (DEFAULT) [address] [address] Mean Cell Hgb 30.6 pg Normal 25.9-33.9 [facility] Comment on above: Performed By: #### L [id number] #### [facility] (DEFAULT) [address] [address] Mean Cell Hgb Conc 31.8 g/dL Normal 31.4-35.9 [facility] Comment on above: Performed By: #### L [id number] #### [facility] (DEFAULT) [address] [address] Monocytes (Bld) [#/Vol] 0.09 10*3/uL Low 0.22-0.87 [facility] Comment on above: Performed By: #### L [id number] #### [facility] (DEFAULT) [address] [address] Monocytes/100 WBC (Bld) 1.2 % Normal [facility] Comment on above: Performed By: #### L [id number] #### [facility] (DEFAULT) [address] [address] Nucleated RBC 0.0 /100 WBC Normal <=0.2 [facility] Comment on above: Performed By: #### L [id number] #### [facility] (DEFAULT) [address] [address] Platelet mean volume (Bld) [Entitic vol] 9.5 fL Normal 8.5-12.2 [facility] Comment on above: Performed By: #### L [id number] #### [facility] (DEFAULT) [address] [address] Platelets (Bld) [#/Vol] 199 10*3/uL Normal 150-393 [facility] Comment on above: Performed By: #### L [id number] #### [facility] (DEFAULT) [address] [place] [address] RBC (Bld) [#/Vol] 4.77 10*6/uL Normal 3.91-5.04 [facility] Comment on above: Performed By: #### L [id number] #### [facility] (DEFAULT) [address] [place] [address] RBC Distribution 13.6 % Normal 10.8-14.9 [facility] Comment on above: Performed By: #### L [id number] #### [facility] (DEFAULT) [address] [place] [address] Segs + Bands Auto 88.2 % Normal [facility] Comment on above: Performed By: #### L [id number] #### [facility] (DEFAULT) [address] [place] [address] Segs + Bands,Absolute Auto 6.75 K/uL Normal 1.64-7.28 [facility] Comment on above: Performed By: #### L [id number] #### [facility] (DEFAULT) [address] [place] [address] WBC (Bld) [#/Vol] 7.65 10*3/uL Normal 3.99-11.19 [facility] Comment on above: Performed By: #### L [id number] #### [facility] (DEFAULT) [address] [place] [address] Basophils (Bld) [#/Vol] 0.05 10*3/uL 0.00 - 0.15 K/uL [facility] Basophils/100 WBC (Bld) 0.7 % [facility] Differential cell count method Nom (Bld) Electronic Differential [facility] Eosinophils (Bld) [#/Vol] K/uL 0.00 - 0.42 K/uL [facility] Eosinophils/100 WBC (Bld) 0.0 % [facility] Erythrocyte distribution width (RBC) [Ratio] 13.6 % 10.8 - 14.9 % [facility] Hematocrit (Bld) [Volume fraction] 45.9 % High 34.9 - 44.3 % [facility] Hemoglobin (Bld) [Mass/Vol] 14.6 g/dL 11.4 - 15.2 g/dL [facility] Immature granulocytes (Bld) [#/Vol] 0.36 10*3/uL High NINF - 0.08 K/uL [facility] Immature granulocytes/100 WBC (Bld) 4.7 % [facility] Interpretation and review of laboratory results Abnormal [facility] Lymphocytes (Bld) [#/Vol] 0.40 10*3/uL Low 1.16 - 3.51 K/uL [facility] Lymphocytes/100 WBC (Bld) 5.2 % [facility] MCH (RBC) [Entitic mass] 30.6 pg 25.9 - 33.9 pg [facility] MCHC (RBC) [Mass/Vol] 31.8 g/dL 31.4 - 35.9 g/dL [facility] MCV (RBC) [Entitic vol] 96.2 fL 79.6 - 97.7 fL [facility] Monocytes (Bld) [#/Vol] 0.09 10*3/uL Low 0.22 - 0.87 K/uL [facility] Monocytes/100 WBC (Bld) 1.2 % [facility] Neutrophils (Bld) [#/Vol] 6.75 10*3/uL 1.64 - 7.28 K/uL [facility] Nucleated RBC/100 WBC (Bld) [Ratio] 0.0 % [facility] Platelet mean volume (Bld) [Entitic vol] 9.5 fL 8.5 - 12.2 fL [facility] Platelets (Bld) [#/Vol] 199 10*3/uL 150 - 393 K/uL [facility] RBC (Bld) [#/Vol] 4.77 10*6/uL [facility] Segmented neutrophils/100 WBC (Bld) 88.2 % [facility] WBC (Bld) [#/Vol] 7.65 10*3/uL 3.99 - 11.19 K/uL [facility] CHM 7 - EDon 10-14-2022 Anion gap [Moles/Vol] 15 mmol/L Normal 7-17 [facility] Comment on above: Performed By: #### Krista MarcD #### [facility] (DEFAULT) [address] [place] [address] Chloride [Moles/Vol] 103 mmol/L Normal 98-108 [facility] Comment on above: Performed By: #### Krista 7ED #### [facility] (DEFAULT) [address] [place] [address] CO2 [Moles/Vol] 31 mmol/L Normal 21-31 [facility] Comment on above: Performed By: #### Krista 7ED #### [facility] (DEFAULT) [address] [place] [address] Creatinine [Mass/Vol] 0.45 mg/dL Low 0.50-1.20 [facility] Comment on above: Performed By: #### Krista 7ED #### [facility] (DEFAULT) [address] [place] [address] eGFR, CKD-EPI, Female > Normal >=60 [facility] Comment on above: Result Comment: Repo rted eGFR is based on the CKD-EPI 2020 equation using creatinine, age, and sex. Performed By: #### C 7ED #### [facility] (DEFAULT) [address] [place] [address] Glucose [Mass/Vol] 149 mg/dL High 70-99 [facility] Comment on above: Performed By: #### Krista 7ED #### [facility] (DEFAULT) [address] [place] [address] Osmolality [Osmolality] 306 mosm/kg High 278-305 [facility] Comment on above: Performed By: #### Krista 7ED #### [facility] (DEFAULT) [address] [place] [address] Potassium [Moles/Vol] 3.7 mmol/L Normal 3.5-5.0 [facility] Comment on above: Performed By: #### C 7ED #### [facility] (DEFAULT) [address] [place] [address] Sodium [Moles/Vol] 145 mmol/L Normal 135-145 [facility] Comment on above: Performed By: #### C 7ED #### [facility] (DEFAULT) [address] [place] [address] Urea nitrogen [Mass/Vol] 17 mg/dL Normal 7-25 [facility] Comment on above: Performed By: #### C 7ED #### [facility] (DEFAULT) [address] [place] [address] Urea nitrogen/Creatinine [Mass ratio] 38 mg/mg Normal [facility] Comment on above: Performed By: #### C 7ED #### [facility] (DEFAULT) [address] [place] [address] Anion gap [Moles/Vol] 15 mmol/L 7 - 17 mmol/L [facility] Chloride [Moles/Vol] 103 mmol/L 98 - 10 8 mmol/L [facility] CO2 [Moles/Vol] 31 mmol/L 21 - 31 mmol/L [facility] Creatinine [Mass/Vol] 0.45 mg/dL Low 0.50 - 1.20 mg/dL [facility] GFR/1.73 sq M.predicted CKD-EPI (S/P/Bld) [Vol rate/Area] - [facility] Comment on above: Reported eGFR is bas ed on the CKD-EPI 2020 equation using creatinine, age, and sex. Glucose [Mass/Vol] 149 mg/dL High 70 - 99 mg/dL [facility] Interpretation and review of laboratory results Abnormal [facility] Osmolality Calc [Osmolality] 306 High [facility] Potassium [Moles/Vol] 3.7 mmol/L 3.5 - 5.0 mmol/L [facility] Sodium [Moles/Vol] 145 mmol/L 135 - 145 mmol/L [facility] Urea nitrogen [Mass/Vol] 17 mg/dL 7 - 25 mg/dL [facility] Urea nitrogen/Creatinine [Mass ratio] 38 mg/mg [facility] CT Cervical spine WO contras ton 10-14-2022 IMPRESSION: 1. Recent postoperative changes of the cervical spine at C1-2, including posterior spacer supported by cerclage wires and incompletely fused bone graft material. An operative bed fluid collection of uncertain sterility is again seen, unchanged from recent MR imaging, measuring up to 3.7 cm in greatest dimension. Correlation is necessary to guide management. 2. Incompletely healed type II dens fracture with mild residual distraction. 3. Advanced degenerative changes cervical spine contributing to multilevel spinal canal and neuroforaminal stenosis. I personally viewed and interpreted these images and I have reviewed and approved this report. OLOGY EXAM: CT SPINE CERVI FLOYD WITHOUT CONTRAST, 10/14/2022 01:03 AM COMPARISON: Same day cervical spine radiograph from prior day MRI cervical spine CLINICAL INDICATIONS: 67 years Female Eval C spine; RELEVANT CLINICAL HISTORY: TECHNIQUE: A series of transaxial multislice computerized tomographic thin section source images are obtained with helical technique from clivus to upper thoracic spine without contrast. Reformats: Axial, sagittal, coronal. FINDINGS: There is straightening of cervical lordosis. Minimal degenerative anterolisthesis C3-4. Atlantodens interval is within normal limits. No atlantooccipital dissociation. There is an incompletely healed type II dens fracture, approximately 4 mm distraction. No additional evidence of acute cervical spine fracture is identified. There are recent postoperative changes at C1-C2, including a midline posterior spacer which appears well-positioned, supported by bilateral cerclage wires which appear intact, and incompletely fused bone graft material. A midline posterior operative bed fluid collection of uncertain sterility is difficult to precisely measure, though estimated at approximately 22 x 31 x 37 mm, not significantly changed in size from recent MR imaging. There is multilevel advanced mid/lower cervical disc disease most pronounced at C4-5, C5-6, C6-7, contributing to mild/moderate diffuse spinal canal narrowing. Diffuse uncovertebral facet arthropathy contribute to multilevel advanced foraminal stenosis. RADIOLOGY Jorge Dowd MD - 10/14/2022 EXAM: CT SPINE CERVICAL WITHOUT CONTRAST, 10/14/2022 01:03 AM COMPARISON: Same day cervical spine radiograph from prior day MRI cervical spine CLINICAL INDICATIONS: 67 years Female Eval C spine; RELEVANT CLINICAL HISTORY: TECHNIQUE: A series of transaxial multislice computerized tomographic thin section source images are obtained with helical technique from clivus to upper thoracic spine without contrast. Reformats: Axial, sagittal, coronal. FINDINGS: There is straightening of cervical lordosis. Minimal degenerative anterolisthesis C3-4. Atlantodens interval is within normal limits. No atlantooccipital dissociation. There is an incompletely healed type II dens fracture, approximately 4 mm distraction. No additional evidence of acute cervical spine fracture is identified. There are recent postoperative changes at C1-C2, including a midline posterior spacer which appears well-positioned, supported by bilateral cerclage wires which appear intact, and incompletely fused bone graft material. A midline posterior operative bed fluid collection of uncertain sterility is difficult to precisely measure, though estimated at approximately 22 x 31 x 37 mm, not significantly changed in size from recent MR imaging. There is multilevel advanced mid/lower cervical disc disease most pronounced at C4-5, C5-6, C6-7, contributing to mild/moderate diffuse spinal canal narrowing. Diffuse uncovertebral facet arthropathy contribute to multilevel advanced foraminal stenosis. IMPRESSION IMPRESSION: 1. Recent postoperative changes of the cervical spine at C1-2, including posterior spacer supported by cerclage wires and incompletely fused bone graft material. An operative bed fluid collection of uncertain sterility is again seen, unchanged from recent MR imaging, measuring up to 3.7 cm in greatest dimension. Correlation is necessary to guide management. 2. Incompletely healed type II dens fracture with mild residual distraction. 3. Advanced degenerative changes cervical spine contributing to multilevel spinal canal and neuroforaminal stenosis. I personally viewed and interpreted these images and I have reviewed and approved this report. [facility] Radiology Study observation (narrative) [facility] CT SPINE CERVICAL WITHOUT CO NTRASTon 10-14-2022 CT SPINE CERVICAL WITHOUT CONTRAST EXAM: CT SPINE CERVICAL WITHOUT CONTRAST, 10/14/2022 01:03 AM COMPARISON: Same day cervical spine radiograph from prior day MRI cervical spine CLINICAL INDICATIONS: 67 years Female Eval C spine; RELEVANT CLINICAL HISTORY: TECHNIQUE: A series of transaxial multislice computerized tomographic thin section source images are obtained with helical technique from clivus to upper thoracic spine without contrast. Reformats: Axial, sagittal, coronal. FINDINGS: There is straightening of cervical lordosis. Minimal degenerative anterolisthesis C3-4. Atlantodens interval is within normal limits. No atlantooccipital dissociation. There is an incompletely healed type II dens fracture, approximately 4 mm distraction. No additional evidence of acute cervical spine fracture is identified. There are recent postoperative changes at C1-C2, including a midline posterior spacer which appears well-positioned, supported by bilateral cerclage wires which appear intact, and incompletely fused bone graft material. A midline posterior operative bed fluid collection of uncertain sterility is difficult to precisely measure, though estimated at approximately 22 x 31 x 37 mm, not significantly changed in size from recent MR imaging. There is multilevel advanced mid/lower cervical disc disease most pronounced at C4-5, C5-6, C6-7, contributing to mild/moderate diffuse spinal canal narrowing. Diffuse uncovertebral facet arthropathy contribute to multilevel advanced foraminal stenosis. IMPRESSION: 1. Recent postoperative changes of the cervical spine at C1-2, including posterior spacer supported by cerclage wires and incompletely fused bone graft material. An operative bed fluid collection of uncertain sterility is again seen, unchanged from recent MR imaging, measuring up to 3.7 cm in greatest dimension. Correlation is necessary to guide management. 2. Incompletely healed type II dens fracture with mild residual distraction. 3. Advanced degenerative changes cervical spine contributing to multilevel spinal canal and neuroforaminal stenosis. I personally viewed and interpreted these images and I have reviewed and approved this report. Normal [facility] LACTATE, BLOODon 10-14-2022 Lactate, Blood 2.1 mmol/L High 0.5-1.6 [facility] Comment on above: Performed By: #### L ACT #### [facility] (DEFAULT) [address] [place] [address] LACTATE, BLOODOrdered By: Mehran aCstano on 10-14-2022 Interpretation and review of laboratory results Abnormal [facility] Lactate [Moles/Vol] 2.1 mmol/L High 0.5 - 1. 6 mmol/L [facility] No Panel Informationon 10-14 [facility] PT,INR,PTTon 10-14-2022 aPTT Coag (Bld) [Time] 20.9 s Low 24.0-34.3 [facility] Comment on above: Result Comment: Spec imen integrity checked. Performed By: #### P TPTT #### [facility] (DEFAULT) [address] [place] [address] INR Coag (PPP) [Relative time] 0.9 {INR} Normal 0.9-1.1 [facility] Comment on above: Performed By: #### P TPTT #### [facility] (DEFAULT) [address] [place] [address] PT Coag (PPP) [Time] 12.1 s Normal 11.9-14.2 [facility] Comment on above: Performed By: #### P TPTT #### [facility] (DEFAULT) [address] [place] [address] PT,INR,PTTOrdered By: Saloni Lara on 10-14-2022 aPTT Coag (PPP) [Time] 20.9 s Low [facility] Comment on above: Specimen integrity c hecked. INR Coag (Bld) [Relative time] 0.9 {INR} 0.9 - 1.1 [facility] Interpretation and review of laboratory results Abnormal [facility] PT Coag (PPP) [Time] 12.1 s [facility] Portable XR Chest Viewson IMPRESSION: 1. Multifocal bibasilar alveolar disease, favoring evidence of pneumonia in the appropriate clinical setting. 2. Probable small effusions. 3. Suspect a background of interstitial fibrosis. I personally viewed and interpreted these images and I have reviewed and approved this report. OLOGY EXAM: XR CHEST TERRENCE BLE, 10/14/2022 00:12 AM COMPARISON: No prior studies available for comparison. CLINICAL INDICATIONS: eval for pna RELEVANT CLINICAL HISTORY: FINDINGS: (Adequate technique) Implanted Devices: None Thorax: Low lung volumes. There is mild peripheral interstitial thickening with subtle basilar predominance. There is superimposed bibasilar alveolar disease, with probable small effusions. Moderate cardiac megaly.. RADIOLOGY Jorge Dowd MD - 10/14/2022 EXAM: XR CHEST PORTABLE, 10/14/2022 00:12 AM COMPARISON: No prior studies available for comparison. CLINICAL INDICATIONS: eval for pna RELEVANT CLINICAL HISTORY: FINDINGS: (Adequate technique) Implanted Devices: None Thorax: Low lung volumes. There is mild peripheral interstitial thickening with subtle basilar predominance. There is superimposed bibasilar alveolar disease, with probable small effusions. Moderate cardiac megaly.. IMPRESSION IMPRESSION: 1. Multifocal bibasilar alveolar disease, favoring evidence of pneumonia in the appropriate clinical setting. 2. Probable small effusions. 3. Suspect a background of interstitial fibrosis. I personally viewed and interpreted these images and I have reviewed and approved this report. [facility] Portable XR Chest ViewsOrder ed By: Jorge Dowd on 10-14-2022 [facility] Work Phone: SCREEN: MRSA/MSSAOrdered By: Leidy Burk on 10-14-2022 Interpretation and review of laboratory results Normal [facility] Methicillin Resistant S. Aureus By Pcr Negative Negative [facility] Staphylococcus Aureus By Pcr Negative Negative [facility] This test was perfor med using a real time PCR assay. Results should be interpreted in conjunction with other clinical and laboratory findings. A positive result does not necessarily indicate the presence of viable organism. This test should not be used as a test of cure. For E-swab specimens, this test was developed and its performance characteristics determined by the Clinical Microbiology Laboratory at [facility]. It has not been cleared or approved by the FDA.The laboratory is regulated under CLIA as qualified to perform high-complexity testing. This test is used for clinical purposes. It should not be regarded as investigational or for research. [facility] SCREEN: MRSA/MSSAon 10-15-19 23 Methicillin Resistant S. Aureus By Pcr Negative Normal Negative [facility] Comment on above: Order Comment: Colle ct with an ESWAB - Anterior Nares for MRSA + MSSAThis test was performed using a real time PCR assay. Results should be interpreted in conjunction with other clinical and laboratory findings. A positive result does not necessarily indicate the presence of viable organism. This test should not be used as a test of cure. For E-swab specimens, this test was developed and its performance characteristics determined by the Clinical Microbiology Laboratory at [facility]. It has not been cleared or approved by the FDA.The laboratory is regulated under CLIA as qualified to perform high-complexity testing. This test is used for clinical purposes. It should not be regarded as investigational or for research. Performed By: #### C 7ED #### [facility] (DEFAULT) [address] [place] [address] Staphylococcus Aureus By Pcr Negative Normal Negative [facility] Comment on above: Order Comment: Colle ct with an ESWAB - Anterior Nares for MRSA + MSSAThis test was performed using a real time PCR assay. Results should be interpreted in conjunction with other clinical and laboratory findings. A positive result does not necessarily indicate the presence of viable organism. This test should not be used as a test of cure. For E-swab specimens, this test was developed and its performance characteristics determined by the Clinical Microbiology Laboratory at [facility]. It has not been cleared or approved by the FDA.The laboratory is regulated under CLIA as qualified to perform high-complexity testing. This test is used for clinical purposes. It should not be regarded as investigational or for research. Performed By: #### C 7ED #### [facility] (DEFAULT) [address] [place] [address] TYPE AND SCREENon 10-14-2022 ABO/RH(D) TYPE Positive Normal [facility] Comment on above: Performed By: #### X M #### [facility] (DEFAULT) [address] [place] [address] ABO/RH(D) TYPE Positive [facility] URINALYSIS REFLEX TO CULTURE PERFORMABLEon 10-14-2022 Appearance (U) Clear Normal Clear [facility] Comment on above: Performed By: #### U [id number] #### [facility] (DEFAULT) [address] [place] [address] Bacteria PRESENT Abnormal ABSENT [facility] Comment on above: Performed By: #### U [id number] #### [facility] (DEFAULT) [address] [place] [address] Blood Urine Negative Normal Negative [facility] Comment on above: Performed By: #### U [id number] #### [facility] (DEFAULT) [address] [place] [address] Color (U) Yellow Normal Yellow [facility] Comment on above: Performed By: #### U [id number] #### [facility] (DEFAULT) [address] [place] [address] Glucose Ql (U) Negative Normal Negative [facility] Comment on above: Performed By: #### U [id number] #### [facility] (DEFAULT) [address] [place] [address] Hyaline casts LM Ql (Urine sed) 0 - 2 Abnormal (none) [facility] Comment on above: Performed By: #### U [id number] #### [facility] (DEFAULT) [address] [place] [address] Ketones Ql (U) Negative Normal Negative [facility] Comment on above: Performed By: #### U [id number] #### [facility] (DEFAULT) [address] [place] [address] Leukocyte esterase Test strip Ql (U) Trace Abnormal Negative [facility] Comment on above: Performed By: #### U [id number] #### [facility] (DEFAULT) [address] [place] [address] Nitrites Urine Positive Abnormal Negative [facility] Comment on above: Performed By: #### U [id number] #### [facility] (DEFAULT) [address] [address] pH (U) 7.0 [pH] Normal 5.0-7.0 [facility] Comment on above: Performed By: #### U [id number] #### [facility] (DEFAULT) [address] [address] Protein Urine Negative Normal Negative [facility] Comment on above: Performed By: #### U [id number] #### [facility] (DEFAULT) [address] [address] RBC Urine 0-2 Normal 0-2 [facility] Comment on above: Performed By: #### U [id number] #### [facility] (DEFAULT) [address] [address] Specific Swengel Urine 1.010 Normal 1.001-1.035 [facility] Comment on above: Performed By: #### U [id number] #### [facility] (DEFAULT) [address] [address] Squamous/Epithelial Cells 0-2/hpf Normal 0-2/hpf, 3-5/hpf = 1+ [facility] Comment on above: Performed By: #### U [id number] #### [facility] (DEFAULT) [address] [address] Urobilinogen Urine 0.2 E.U./dL Normal 0.2 E.U/d L, 1.0 E.U/dL [facility] Comment on above: Performed By: #### U [id number] #### [facility] (DEFAULT) [address] [place] [address] WBC Urine 0 - 5 Normal 0 - 5 [facility] Comment on above: Performed By: #### U [id number] #### [facility] (DEFAULT) [address] [place] [address] Yeast/Fungi PRESENT Abnormal ABSENT [facility] Comment on above: Performed By: #### U [id number] #### [facility] (DEFAULT) [address] [place] [address] Appearance (U) Clear Clear [facility] Bacteria LM Ql (Urine sed) PRESENT Abnormal ABSENT [facility] Color (U) Yellow Yellow [facility] Epithelial cells.squamous LM Ql (Urine sed) 0-2/hpf 0-2/hpf, 3-5/hpf = 1+ [facility] Glucose Test strip (U) [Mass/Vol] Negative Negative [facility] Hyaline casts (Urine sed) [#/Area] 0 - 2 Abnormal (none) /LPF [facility] Interpretation and review of laboratory results Abnormal [facility] Ketones (U) [Mass/Vol] Negative Negative [facility] Leukocyte esterase Test strip Ql (U) Trace Abnormal Negative [facility] Nitrite Ql (U) Positive Abnormal Negative [facility] pH (U) 7.0 [pH] 5.0 - 7.0 [facility] Protein (U) [Mass/Vol] Negative [facility] RBC (U) [#/Vol] Negative [facility] RBC LM.HPF (Urine sed) [#/Area] 0-2 [facility] Specific gravity (U) [Rel density] 1.010 1.001 - 1.035 [facility] Urobilinogen (U) [Mass/Vol] 0.2 E.U./dL 0.2 E.U/dL, 1.0 E.U/dL [facility] WBC LM.HPF (Urine sed) [#/Area] 0 - 5 [facility] Yeast/Fungi PRESENT Abnormal ABSENT [facility] XR CHEST PORTABLEon 10-15-19 XR CHEST PORTABLE EXAM: XR CHEST TERRENCE BLE, 10/14/2022 00:12 AM COMPARISON: No prior studies available for comparison. CLINICAL INDICATIONS: eval for pna RELEVANT CLINICAL HISTORY: FINDINGS: (Adequate technique) Implanted Devices: None Thorax: Low lung volumes. There is mild peripheral interstitial thickening with subtle basilar predominance. There is superimposed bibasilar alveolar disease, with probable small effusions. Moderate cardiac megaly.. IMPRESSION: 1. Multifocal bibasilar alveolar disease, favoring evidence of pneumonia in the appropriate clinical setting. 2. Probable small effusions. 3. Suspect a background of interstitial fibrosis. I personally viewed and interpreted these images and I have reviewed and approved this report. Normal [facility] XR Cervical spine 4 Viewson 10-14-2022 IMPRESSION: 1. Assessment limited by limitations in positioning and body habitus. 2. Posterior spacer at C1-2 supported by cerclage wires, better characterized on same-day CT imaging. 3. Incompletely healed type II dens fracture, also better visualized on same-day CT imaging. 4. Multilevel advanced neural foraminal stenosis. 5. Degenerative anterolisthesis, C3-4, 3 mm. I personally viewed and interpreted these images and I have reviewed and approved this report. OLOGY EXAM: XR SPINE CERVI FLOYD 4 VIEWS, 10/14/2022 00:12 AM COMPARISON: MRI cervical spine October 13, 2022, same-day CT cervical spine. CLINICAL INDICATIONS: eval hardware s/p c spine surgery at [facility] RELEVANT CLINICAL HISTORY: FINDINGS: 4 images obtained. Limitations in positioning and artifact related to body habitus limiting assessment of the lower cervical spine. There is straightening of lordosis. Degenerative anterolisthesis anterolisthesis suspected at C3-4, measuring 3 mm. There is posterior space at C1-2 supported by cerclage wires. No overt hardware malalignment. Imaged cervical vertebral body heights are preserved. There is an incompletely healed type II dens fracture, better visualized on same-day CT imaging. There is moderate multilevel lower cervical disc narrowing, diffuse uncovertebral and facet arthropathy. Multilevel advanced foraminal stenosis. RADIOLOGY Jorge Dowd MD - 10/14/2022 EXAM: XR SPINE CERVICAL 4 VIEWS, 10/14/2022 00:12 AM COMPARISON: MRI cervical spine October 13, 2022, same-day CT cervical spine. CLINICAL INDICATIONS: eval hardware s/p c spine surgery at [facility] RELEVANT CLINICAL HISTORY: FINDINGS: 4 images obtained. Limitations in positioning and artifact related to body habitus limiting assessment of the lower cervical spine. There is straightening of lordosis. Degenerative anterolisthesis anterolisthesis suspected at C3-4, measuring 3 mm. There is posterior space at C1-2 supported by cerclage wires. No overt hardware malalignment. Imaged cervical vertebral body heights are preserved. There is an incompletely healed type II dens fracture, better visualized on same-day CT imaging. There is moderate multilevel lower cervical disc narrowing, diffuse uncovertebral and facet arthropathy. Multilevel advanced foraminal stenosis. IMPRESSION IMPRESSION: 1. Assessment limited by limitations in positioning and body habitus. 2. Posterior spacer at C1-2 supported by cerclage wires, better characterized on same-day CT imaging. 3. Incompletely healed type II dens fracture, also better visualized on same-day CT imaging. 4. Multilevel advanced neural foraminal stenosis. 5. Degenerative anterolisthesis, C3-4, 3 mm. I personally viewed and interpreted these images and I have reviewed and approved this report. [facility] XR SPINE CERVICAL 4 VIEWSon 10-14-2022 XR SPINE CERVICAL 4 VIEWS EXAM: XR SPINE CERVICAL 4 VIEWS, 10/14/2022 00:12 AM COMPARISON: MRI cervical spine October 13, 2022, same-day CT cervical spine. CLINICAL INDICATIONS: eval hardware s/p c spine surgery at [facility] RELEVANT CLINICAL HISTORY: FINDINGS: 4 images obtained. Limitations in positioning and artifact related to body habitus limiting assessment of the lower cervical spine. There is straightening of lordosis. Degenerative anterolisthesis anterolisthesis suspected at C3-4, measuring 3 mm. There is posterior space at C1-2 supported by cerclage wires. No overt hardware malalignment. Imaged cervical vertebral body heights are preserved. There is an incompletely healed type II dens fracture, better visualized on same-day CT imaging. There is moderate multilevel lower cervical disc narrowing, diffuse uncovertebral and facet arthropathy. Multilevel advanced foraminal stenosis. IMPRESSION: 1. Assessment limited by limitations in positioning and body habitus. 2. Posterior spacer at C1-2 supported by cerclage wires, better characterized on same-day CT imaging. 3. Incompletely healed type II dens fracture, also better visualized on same-day CT imaging. 4. Multilevel advanced neural foraminal stenosis. 5. Degenerative anterolisthesis, C3-4, 3 mm. I personally viewed and interpreted these images and I have reviewed and approved this report. Normal [facility] Basic Metabolic Profon 10-13 Anion gap [Moles/Vol] 11 mmol/L Normal 9-17 [facility] Comment on above: Performed By: #### C P, CBC #### [facility] [address] [place] [address] [place] Ranger: Collette Willard MD BUN/CRE Ratio 43 High 9-20 [facility] Comment on above: Performed By: #### C P, CBC #### [facility] [address] [place] [address] [place] Ranger: Collette Willard MD Calcium [Mass/Vol] 10.3 mg/dL Normal 8.6-10.4 [facility] Comment on above: Performed By: #### C P, CBC #### [facility] [address] [place] [address] [place] Ranger: Collette Willard MD Chloride [Moles/Vol] 103 mmol/L Normal 98-107 [facility] Comment on above: Performed By: #### C P, CBC #### [facility] [address] [place] [address] [place] Ranger: Collette Willard MD CO2 [Moles/Vol] 31 mmol/L Normal 20-31 [facility] Comment on above: Performed By: #### C P, CBC #### [facility] [address] [place] [address] [place] Ranger: Collette Willard MD Creatinine [Mass/Vol] 0.3 mg/dL Low 0.5-0.9 [facility] Comment on above: Performed By: #### C P, CBC #### [facility] [address] [place] [address] [place] Ranger: Collette Willard MD GFR/1.73 sq M.predicted among non-blacks MDRD (S/P/Bld) [Vol rate/Area] mL/min/{1.73_m2} Normal >60 [facility] Comment on above: Result Comment: These results are not intended for use in patients <18 years of age. eGFR results are calculated without a race factor using the 2020 CKD-EPI equation. Careful clinical correlation is recommended, particularly when comparing to results calculated using previous equations. The CKD-EPI equation is less accurate in patients with extremes of muscle mass, extra-renal metabolism of creatine, excessive creatine ingestion, or following therapy that affects renal tubular secretion. Performed By: #### C P, CBC #### [facility] [address] [place] [address] [place] Ranger: Collette Willard MD Glucose [Mass/Vol] 80 mg/dL Normal 70-99 [facility] Comment on above: Performed By: #### C P, CBC #### [facility] [address] [place] [address] [place] Ranger: Collette Willard MD Potassium [Moles/Vol] 3.4 mmol/L Low 3.7-5.3 [facility] Comment on above: Performed By: #### C P, CBC #### [facility] [address] [place] [address] [place] Ranger: Collette Willard MD Sodium [Moles/Vol] 145 mmol/L High 135-144 [facility] Comment on above: Performed By: #### C P, CBC #### [facility] [address] [place], [place] [id number] [place] Ranger: Collette Willard MD Urea nitrogen [Mass/Vol] 13 mg/dL Normal 8-23 [facility] Comment on above: Performed By: #### C P, CBC #### [facility] [address] [place] [address] Snow Ranger: Collette Willard MD CBC with Diffon 10-13-2022 Abs. Basophil 0.00 k/uL Normal 0.0-0.2 [facility] Comment on above: Performed By: #### C P, CBC #### [facility] [address] [place] [address] Dr[place], [place] [id number] [place] Ranger: Collette Willard MD Abs.Imm.Granulocyte 0.08 k/uL Normal 0.00-0.30 [facility] Comment on above: Performed By: #### C P, CBC #### [address] [place] [address] [place] Ranger: Collette Willard MD Abs.Neutrophil (Seg) 6.32 k/uL Normal 1.50-8.10 [facility] Comment on above: Performed By: #### C P, CBC #### [facility] [address] [place], [place] [id number] [place] Ranger: Collette Willard MD Basophils/100 WBC (Bld) 0 % Normal 0-2 [facility] Comment on above: Performed By: #### C P, CBC #### [facility] [address] [place] [address] Snow Ranger: Collette Willard MD Eosinophils (Bld) [#/Vol] 0.23 10*3/uL Normal 0.00-0.44 [facility] Comment on above: Performed By: #### C P, CBC #### [facility] [address] [place], [facility]83 Snow Ranger: Collette Willard MD Eosinophils/100 WBC (Bld) 3 % Normal 1-4 [facility] Comment on above: Performed By: #### C P, CBC #### [facility] [address] [place], [place] [address] Snow Ranger: Collette Willard MD Immature granulocytes/100 WBC (Bld) 1 % High 0 [facility] Comment on above: Performed By: #### C P, CBC #### [facility] [address] [place] [id number] [place] Ranger: Collette Willard MD Lymphocytes (Bld) [#/Vol] 0.86 10*3/uL Low 1.10-3.70 [facility] Comment on above: Performed By: #### C P, CBC #### [facility] [address] [place], [place] [address] Snow Ranger: Collette Willard MD Lymphocytes/100 WBC (Bld) 11 % Low 24-43 [facility] Comment on above: Performed By: #### C P, CBC #### [facility] [address] [place] [address] [place] Ranger: Collette Willard MD Monocytes (Bld) [#/Vol] 0.31 10*3/uL Normal 0.10-1.20 [facility] Comment on above: Performed By: #### C P, CBC #### [facility] [address] [place] [id number] [place] Ranger: Collette Willard MD Monocytes/100 WBC (Bld) 4 % Normal 3-12 [facility] Comment on above: Performed By: #### C P, CBC #### [facility] [address] [place], [facility]83 Snow Ranger: Collette Willard MD Morphology Demetrio (Bld) [Interp] Normal Normal [facility] Comment on above: Performed By: #### C P, CBC #### [facility] [address] [place], [place] [id number] [place] Ranger: Collette Willard MD Neutrophil (Seg) 81 % High 36-65 [facility] Comment on above: Performed By: #### C P, CBC #### [facility] [address] [place], [place] [id number] [place] Ranger: Collette Willard MD Erythrocyte distribution width (RBC) [Ratio] 13.7 % Normal 11.8-14.4 [facility] Comment on above: Performed By: #### C P, CBC #### [address] [place] [address] [place] Ranger: Collette Willard MD Hematocrit (Bld) [Volume fraction] 43.4 % Normal 36.3-47.1 [facility] Comment on above: Performed By: #### C P, CBC #### [address] [place] [address] [place] Ranger: Collette Willard MD Hemoglobin (Bld) [Mass/Vol] 13.5 g/dL Normal 11.9-15.1 [facility] Comment on above: Performed By: #### C P, CBC #### [address] [place] [address] [place] Ranger: Collette Willard MD MCH (RBC) [Entitic mass] 30.4 pg Normal 25.2-33.5 [facility] Comment on above: Performed By: #### C P, CBC #### [address] [place] [address] [place] Ranger: Collette Willard MD MCHC (RBC) [Mass/Vol] 31.1 g/dL Normal 28.4-34.8 [facility] Comment on above: Performed By: #### C P, CBC #### [facility] [address] [place] [address] Dr[address] [place], [place] [address] Snow Ranger: Collette Willard MD MCV (RBC) [Entitic vol] 97.7 fL Normal 82.6-102.9 [facility] Comment on above: Performed By: #### C P, CBC #### [address] [place], [place] [address] Snow Ranger: Collette Willard MD NRBC Automated 0.0 per 100 WBC Normal 0.0 [facility] Comment on above: Performed By: #### C P, CBC #### [address] [place], [facility]83 [place] Ranger: Collette Willard MD Platelet mean volume (Bld) [Entitic vol] 9.3 fL Normal 8.1-13.5 [facility] Comment on above: Performed By: #### C P, CBC #### [address] [place], [facility]83 [place] Ranger: Collette Willard MD Platelets (Bld) [#/Vol] 184 10*3/uL Normal 138-453 [facility] Comment on above: Performed By: #### C P, CBC #### [address] [place], [place] [address] Snow Ranger: Collette Willard MD RBC (Bld) [#/Vol] 4.44 10*6/uL Normal 3.95-5.11 [facility] Comment on above: Performed By: #### C P, CBC #### [address] [place] [address] [place] Ranger: Collette Willard MD WBC (Bld) [#/Vol] 7.8 10*3/uL Normal 3.5-11.3 [facility] Comment on above: Performed By: #### C P, CBC #### [facility] [address] [place], [place] [address] Snow Ranger: Collette Willard MD Abs. Basophil 0.00 k/uL Normal 0.0-0.2 [facility] Comment on above: Performed By: #### B C #### [address] [place], [place] [address] Snow Ranger: Collette Willard MD Abs.Imm.Granulocyte 0.50 k/uL High 0.00-0.30 [facility] Comment on above: Performed By: #### B C #### [address] [place], [place] [address] Snow Ranger: Collette Willard MD Abs.Neutrophil (Seg) 6.56 k/uL Normal 1.50-8.10 [facility] Comment on above: Performed By: #### B C #### [address] [place], [facility]83 [place] Ranger: Collette Willard MD Basophils/100 WBC (Bld) 0 % Normal 0-2 [facility] Comment on above: Performed By: #### B C #### [address] [place], [place] [address] Snow Ranger: Collette Willard MD Eosinophils (Bld) [#/Vol] 0.00 10*3/uL Normal 0.00-0.44 [facility] Comment on above: Performed By: #### B C #### [address] [place], [facility]83 [place] Ranger: Collette Willard MD Eosinophils/100 WBC (Bld) 0 % Low 1-4 [facility] Comment on above: Performed By: #### B C #### [address] [place], [facility]83 [place] Ranger: Collette Willard MD Immature granulocytes/100 WBC (Bld) 6 % High 0 [facility] Comment on above: Performed By: #### B C #### [facility] [address] [place], [place] [phone] [place] Ranger: Collette Willard MD Lymphocytes (Bld) [#/Vol] 0.91 10*3/uL Low 1.10-3.70 [facility] Comment on above: Performed By: #### B C #### [facility] [address] [place], [place] [id number] [place] Ranger: Colltete Willard MD Lymphocytes/100 WBC (Bld) 11 % Low 24-43 [facility] Comment on above: Performed By: #### B C #### [facility] [address] [place], [place] [id number] [place] Ranger: Collette Willard MD Monocytes (Bld) [#/Vol] 0.33 10*3/uL Normal 0.10-1.20 [facility] Comment on above: Performed By: #### B C #### [facility] [address] [place], [place] [phone] [place] Ranger: Collette Willard MD Monocytes/100 WBC (Bld) 4 % Normal 3-12 [facility] Comment on above: Performed By: #### B C #### [facility] [address] [place], [place] [phone] [place] Ranger: Collette Willard MD Morphology Demetrio (Bld) [Interp] Normal Normal [facility] Comment on above: Performed By: #### B C #### [facility] [address] [place], [place] [phone] [place] Ranger: Collette Willard MD Neutrophil (Seg) 79 % High 36-65 [facility] Comment on above: Performed By: #### B C #### [facility] [address] [place], [place] [address] Snow Ranger: Collette Willard MD Erythrocyte distribution width (RBC) [Ratio] 13.8 % Normal 11.8-14.4 [facility] Comment on above: Performed By: #### B C #### [address] [place], [place] [id number] [place] Ranger: Collette Willard MD Hematocrit (Bld) [Volume fraction] 42.1 % Normal 36.3-47.1 [facility] Comment on above: Performed By: #### B C #### [address] [place], [place] [id number] [place] Ranger: Collette Willard MD Hemoglobin (Bld) [Mass/Vol] 12.9 g/dL Normal 11.9-15.1 [facility] Comment on above: Performed By: #### B C #### [address] [place], [place] [phone] [place] Ranger: Collette Willard MD MCH (RBC) [Entitic mass] 30.3 pg Normal 25.2-33.5 [facility] Comment on above: Performed By: #### B C #### [address] [place], [place] [id number] [place] Ranger: Collette Willard MD MCHC (RBC) [Mass/Vol] 30.6 g/dL Normal 28.4-34.8 [facility] Comment on above: Performed By: #### B C #### [address] [place], [place] [phone] [place] Ranger: Collette Willard MD MCV (RBC) [Entitic vol] 98.8 fL Normal 82.6-102.9 [facility] Comment on above: Performed By: #### B C #### [address] [place], [place] [phone] [place]: Collette Willard MD NRBC Automated 0.0 per 100 WBC Normal 0.0 [facility] Comment on above: Performed By: #### B C #### [facility] [address] [place], [place] [address] Snow Ranger: Collette Willard MD Platelet mean volume (Bld) [Entitic vol] 9.3 fL Normal 8.1-13.5 [facility] Comment on above: Performed By: #### B C #### [facility] [address] [place], [facility]83 [place] Ranger: Collette Willard MD Platelets (Bld) [#/Vol] 198 10*3/uL Normal 138-453 [facility] Comment on above: Performed By: #### B C #### [address] [place], [facility]83 [place] Ranger: Collette Willard MD RBC (Bld) [#/Vol] 4.26 10*6/uL Normal 3.95-5.11 [facility] Comment on above: Performed By: #### B C #### [address] [place], [place] [phone] [place] Ranger: Collette Willard MD WBC (Bld) [#/Vol] 8.3 10*3/uL Normal 3.5-11.3 [facility] Comment on above: Performed By: #### B C #### [address] [place], [facility]83 Snow Ranger: Collette Willard MD Comp Metabolic Profon 2022 Albumin [Mass/Vol] 3.6 g/dL Normal 3.5-5.2 [facility] Comment on above: Performed By: #### C DP, CP #### [address] [place] [address] [place] Ranger: Collette Willard MD Albumin/Glob Ratio 1.4 Normal 1.0-2.5 [facility] Comment on above: Performed By: #### C DP, CP #### [facility] [address] [place], [place] [phone] [place] Ranger: Collette Willard MD Alkaline Phos 148 U/L High 35-104 [facility] Comment on above: Performed By: #### C DP, CP #### [facility] [address] [place], [place] [phone] [place] Ranger: Collette Willard MD ALT [Catalytic activity/Vol] 56 U/L High 5-33 [facility] Comment on above: Performed By: #### C DP, CP #### [facility] [address] [place], [place] [phone] [place] Ranger: Collette Willard MD Anion gap [Moles/Vol] 10 mmol/L Normal 9-17 [facility] Comment on above: Performed By: #### C DP, CP #### [facility] [address] [place], [place] [phone] [place] Ranger: Collette Willard MD AST [Catalytic activity/Vol] 39 U/L High <32 [facility] Comment on above: Performed By: #### C DP, CP #### [facility] [address] [place], [place] [phone] [place] Ranger: Collette Willard MD Bilirubin [Mass/Vol] 0.3 mg/dL Normal 0.3-1.2 [facility] Comment on above: Performed By: #### C DP, CP #### [facility] [address] [place], [place] [phone] [place] Ranger: Collette Willard MD BUN/CRE Ratio 47 High 9-20 [facility] Comment on above: Performed By: #### C DP, CP #### [facility] [address] [place], [place] [phone] [place] Ranger: Collette Willard MD Calcium [Mass/Vol] 10.3 mg/dL Normal 8.6-10.4 [facility] Comment on above: Performed By: #### C DP, CP #### [facility] [address] [place], [place] [phone] [place] Ranger: Collette Willard MD Chloride [Moles/Vol] 104 mmol/L Normal 98-107 [facility] Comment on above: Performed By: #### C DP, CP #### [facility] [address] [place], [place] [phone] [place] Ranger: Collette Willard MD CO2 [Moles/Vol] 30 mmol/L Normal 20-31 [facility] Comment on above: Performed By: #### C DP, CP #### [facility] [address] [place], [place] [phone] [place] Ranger: Collette Willard MD Creatinine [Mass/Vol] 0.3 mg/dL Low 0.5-0.9 [facility] Comment on above: Performed By: #### C DP, CP #### [facility] [address] [place], [place] [id number] Snow Ranger: Collette Willard MD GFR/1.73 sq M.predicted among non-blacks MDRD (S/P/Bld) [Vol rate/Area] mL/min/{1.73_m2} Normal >60 [facility] Comment on above: Result Comment: These results are not intended for use in patients <18 years of age. eGFR results are calculated without a race factor using the 2020 CKD-EPI equation. Careful clinical correlation is recommended, particularly when comparing to results calculated using previous equations. The CKD-EPI equation is less accurate in patients with extremes of muscle mass, extra-renal metabolism of creatine, excessive creatine ingestion, or following therapy that affects renal tubular secretion. Performed By: #### C DP, CP #### [facility] [address] [place] [address] Snow Ranger: Collette Willard MD Glucose [Mass/Vol] 108 mg/dL High 70-99 [facility] Comment on above: Performed By: #### C DP, CP #### [facility] [address] [place] [address] Snow Ranger: Collette Willard MD Potassium [Moles/Vol] 3.6 mmol/L Low 3.7-5.3 [facility] Comment on above: Performed By: #### C DP, CP #### [facility] [address] [place] [address] Dr[place], [place] [id number] Snow Ranger: Collette Willard MD Protein [Mass/Vol] 6.2 g/dL Low 6.4-8.3 [facility] Comment on above: Performed By: #### C DP, CP #### [address] [place] [address] Snow Ranger: Collette Willard MD Sodium [Moles/Vol] 144 mmol/L Normal 135-144 [facility] Comment on above: Performed By: #### C DP, CP #### [address] [place], [place] [id number] Snow Ranger: Collette Willard MD Urea nitrogen [Mass/Vol] 14 mg/dL Normal 8-23 [facility] Comment on above: Performed By: #### C DP, CP #### [address] [place] [address] Snow Ranger: Collette Willard MD MRI LUMBAR SPINE WO CONTRAST on 10-13-2022 MRI LUMBAR SPINE WO CONTRAST EXAMINATION: MRI OF THE LUMBAR SPINE WITHOUT CONTRAST, 10/13/2022 10:55 am TECHNIQUE: Multiplanar multisequence MRI of the lumbar spine was performed without the administration of intravenous contrast. COMPARISON: None HISTORY: ORDERING SYSTEM PROVIDED HISTORY: neck surgery one month ago; numbness below both elbows and bilateral LE weakness (acute) TECHNOLOGIST PROVIDED HISTORY: neck surgery one month ago; numbness below both elbows and bilateral LE weakness (acute) FINDINGS: BONES/ALIGNMENT: Trace grade 1 anterolisthesis is identified L4-L5. The vertebral body heights are maintained. The bone marrow signal appears unremarkable. No acute fracture is detected. SPINAL CORD: The conus terminates normally. SOFT TISSUES: No paraspinal mass identified. The urinary bladder is distended. L1-L2: There is no significant disc herniation, spinal canal stenosis or neural foraminal narrowing. L2-L3: There is no significant disc herniation, spinal canal stenosis or neural foraminal narrowing. L3-L4: There is no significant disc herniation, spinal canal stenosis or neural foraminal narrowing. L4-L5: There is no significant disc herniation, spinal canal stenosis or neural foraminal narrowing. L5-S1: There is no significant disc herniation, spinal canal stenosis or neural foraminal narrowing. IMPRESSION: Trace grade 1 anterolisthesis at L4-L5. Distended urinary bladder. Interpreted by: Kendell Echols MD Signed by: Kendell Echols MD 10/13/22 Final result Normal [facility] MRI THORACIC SPINE WO CONTRA STon 10-13-2022 MRI THORACIC SPINE WO CONTRAST EXAMINATION: MRI OF THE THORACIC SPINE WITHOUT CONTRAST 10/13/2022 10:55 am TECHNIQUE: Multiplanar multisequence MRI of the thoracic spine was performed without the administration of intravenous contrast. COMPARISON: 08/15/2021 CT thoracic spine HISTORY: ORDERING SYSTEM PROVIDED HISTORY: neck surgery one month ago; numbness below both elbows and bilateral LE weakness (acute) TECHNOLOGIST PROVIDED HISTORY: neck surgery one month ago; numbness below both elbows and bilateral LE weakness (acute) FINDINGS: BONES/ALIGNMENT: There is normal alignment of the spine. There is an old fracture of T4 with loss 15% of vertebral body height. Additional fracture of T6 is identified with presence of mild STIR signal abnormality. This fracture is likely subacute with loss of 20% of vertebral body height. No retropulsion is evident. The alignment is intact. The marrow elements are unremarkable. SPINAL CORD: No abnormal cord signal is seen. SOFT TISSUES: No paraspinal mass identified. DEGENERATIVE CHANGES: No significant spinal canal stenosis or neural foraminal narrowing of the thoracic spine. IMPRESSION: New subacute fracture of T6 with loss of 20% of vertebral body height. Stable old compression fracture of T4 with loss of 15% of vertebral body height. Interpreted by: Kendell Echols MD Signed by: Kendell Echols MD 10/13/22 Final result Normal [facility] PTon 10-13-2022 INR Coag (PPP) [Relative time] 0.9 {INR} Normal [facility] Comment on above: Result Comment: Therapeutic Range: Moderate Anticoagulant Intensity: INR = 2.0-3.0 High Anticoagulant Intensity: INR = 2.5-3.5 Performed By: #### C P, CBC #### [facility] [address] [place] [address] Snow Ranger: Collette Willard MD PT Coag (PPP) [Time] 12.1 s Normal 11.9-14.8 [facility] Comment on above: Performed By: #### C P, CBC #### [address] [place] [address] Snow Ranger: Collette Willard MD Portable XR Chest [facility] Radiology Study observation (narrative) [facility] XR Cervical spine 4 Viewson 10-13-2022 Radiology Study observation (narrative) [facility] CBCon 10-06-2022 Erythrocyte distribution width (RBC) [Ratio] 13.9 % Normal 11.8-14.4 [facility] Comment on above: Performed By: #### C P, CBC #### [address] [place] [address] Snow Ranger: Collette Willard MD Hematocrit (Bld) [Volume fraction] 42.2 % Normal 36.3-47.1 [facility] Comment on above: Performed By: #### C P, CBC #### [facility] [address] [place] [address] [place] [address] Snow Ranger: Collette Willard MD Hemoglobin (Bld) [Mass/Vol] 13.3 g/dL Normal 11.9-15.1 [facility] Comment on above: Performed By: #### C P, CBC #### [facility] [address] [place] [address] Snow Ranger: Collette Willard MD MCH (RBC) [Entitic mass] 30.8 pg Normal 25.2-33.5 [facility] Comment on above: Performed By: #### C P, CBC #### [address] [place], [place] [id number] Snow Ranger: Collette Willard MD MCHC (RBC) [Mass/Vol] 31.5 g/dL Normal 28.4-34.8 [facility] Comment on above: Performed By: #### C P, CBC #### [address] [place] [id number] Snow Ranger: Collette Willard MD MCV (RBC) [Entitic vol] 97.7 fL Normal 82.6-102.9 [facility] Comment on above: Performed By: #### C P, CBC #### [address] [place] [id number] Snow Ranger: Collette Willard MD NRBC Automated 0.0 per 100 WBC Normal 0.0 [facility] Comment on above: Performed By: #### C P, CBC #### [address] [place], [facility]83 Snow Ranger: Collette Willard MD Platelet mean volume (Bld) [Entitic vol] 10.8 fL Normal 8.1-13.5 [facility] Comment on above: Performed By: #### C P, CBC #### [address] [place], [facility]83 Snow Ranger: Collette Willard MD Platelets (Bld) [#/Vol] 133 10*3/uL Low 138-453 [facility] Comment on above: Performed By: #### C P, CBC #### [address] [place] [address] Snow Ranger: Collette Willard MD RBC (Bld) [#/Vol] 4.32 10*6/uL Normal 3.95-5.11 [facility] Comment on above: Performed By: #### C P, CBC #### [facility] [address] [place], [place] [id number] Snow Ranger: Collette Willard MD WBC (Bld) [#/Vol] 14.9 10*3/uL High 3.5-11.3 [facility] Comment on above: Performed By: #### C P, CBC #### [facility] [address] [place], [place] [id number] Snow Ranger: Collette Willard MD Comp Metabolic Profon 2022 Albumin [Mass/Vol] 3.4 g/dL Low 3.5-5.2 [facility] Comment on above: Performed By: #### C P, CBC #### [address] [place], [place] [id number] Snow Ranger: Collette Willard MD Albumin/Glob Ratio 1.2 Normal 1.0-2.5 [facility] Comment on above: Performed By: #### C P, CBC #### [address] [place], [place] [id number] Snow Ranger: Collette Willard MD Alkaline Phos 135 U/L High 35-104 [facility] Comment on above: Performed By: #### C P, CBC #### [facility] [address] [place] [address] Dr. [place], [place] [id number] Snow Ranger: Collette Willard MD ALT [Catalytic activity/Vol] 62 U/L High 5-33 [facility] Comment on above: Performed By: #### C P, CBC #### [address] [place] [address] Snow Ranger: Collette Willard MD Anion gap [Moles/Vol] 9 mmol/L Normal 9-17 [facility] Comment on above: Performed By: #### C P, CBC #### [facility] [address] [place], [place] [id number] Snow Ranger: Collette Willard MD AST [Catalytic activity/Vol] 41 U/L High <32 [facility] Comment on above: Performed By: #### C P, CBC #### [facility] [address] [place], [place] [address] Snow Ranger: Collette Willard MD Bilirubin [Mass/Vol] 0.3 mg/dL Normal 0.3-1.2 [facility] Comment on above: Performed By: #### C P, CBC #### [facility] [address] [place], [place] [address]683 Snow Ranger: Collette Willard MD BUN/CRE Ratio 33 High 9-20 [facility] Comment on above: Performed By: #### C P, CBC #### [facility] [address] [place], [place] [id number] Snow Ranger: Collette Willard MD Calcium [Mass/Vol] 10.6 mg/dL High 8.6-10.4 [facility] Comment on above: Performed By: #### C P, CBC #### [facility] [address] [place], [place] [id number] Snow Ranger: Collette Willard MD Chloride [Moles/Vol] 101 mmol/L Normal 98-107 [facility] Comment on above: Performed By: #### C P, CBC #### [facility] [address] [place], [place] [id number] Snow Ranger: Collette Willard MD CO2 [Moles/Vol] 32 mmol/L High 20-31 [facility] Comment on above: Performed By: #### C P, CBC #### [facility] [address] [place] [address] Snow Ranger: Collette Willard MD Creatinine [Mass/Vol] 0.4 mg/dL Low 0.5-0.9 [facility] Comment on above: Performed By: #### C P, CBC #### [facility] [address] [place] [address] Snow Ranger: Collette Willard MD GFR/1.73 sq M.predicted among non-blacks MDRD (S/P/Bld) [Vol rate/Area] mL/min/{1.73_m2} Normal >60 [facility] Comment on above: Result Comment: These results are not intended for use in patients <18 years of age. eGFR results are calculated without a race factor using the 2020 CKD-EPI equation. Careful clinical correlation is recommended, particularly when comparing to results calculated using previous equations. The CKD-EPI equation is less accurate in patients with extremes of muscle mass, extra-renal metabolism of creatine, excessive creatine ingestion, or following therapy that affects renal tubular secretion. Performed By: #### C P, CBC #### [facility] [address] [place] [address] Snow Ranger: Collette Willard MD Glucose [Mass/Vol] 97 mg/dL Normal 70-99 [facility] Comment on above: Performed By: #### C P, CBC #### [facility] [address] [place] [address] Snow Ranger: Collette Willard MD Potassium [Moles/Vol] 4.0 mmol/L Normal 3.7-5.3 [facility] Comment on above: Performed By: #### C P, CBC #### [facility] [address] [place] [address] Snow Ranger: Collette Willard MD Protein [Mass/Vol] 6.2 g/dL Low 6.4-8.3 [facility] Comment on above: Performed By: #### C P, CBC #### [facility] [address] [place] [address] Snow Ranger: Collette Willard MD Sodium [Moles/Vol] 142 mmol/L Normal 135-144 [facility] Comment on above: Performed By: #### C P, CBC #### [facility] [address] [place] [address] Snow Ranger: Collette Willard MD Urea nitrogen [Mass/Vol] 13 mg/dL Normal 8- [facility] Comment on above: Performed By: #### C P, CBC #### [facility] [address] [place] [address] Snow Ranger: Collette Willard MD Cult,Bloodon 10-06-2022 Cult,Blood Specimen Description .BLOOD Special Requests 3ML LH Culture NO GROWTH 5 DAYS Report Status FINAL 10/06/2022 [facility] Comment on above: Performed By: #### B C #### [facility] [address] [place] [address] Snow Ranger: Collette Willard MD Cult,Blood Specimen Description .BLOOD Special Requests 3ML R UA Culture NO GROWTH 5 DAYS Report Status FINAL 10/06/2022 [facility] Comment on above: Performed By: #### B C #### [facility] [address] [place] [address] Snow Ranger: Collette Willard MD CBC with Auto Differentialon 10-03-2022 Basophils (Bld) [#/Vol] 0.08 10*3/uL [facility] Basophils/100 WBC (Bld) 1 % 0 - 2 % [facility] Eosinophils (Bld) [#/Vol] [facility] Eosinophils/100 WBC (Bld) 0 % Low 1 - 4 % [facility] Erythrocyte distribution width (RBC) [Ratio] 13.9 % 11.8 - 14.4 % [facility] Hematocrit (Bld) [Volume fraction] 46.6 % 36.3 - 47.1 % [facility] Hemoglobin (Bld) [Mass/Vol] 14.2 g/dL 11.9 - 15.1 g/dL [facility] Immature granulocytes (Bld) [#/Vol] 0.32 10*3/uL High [facility] Immature granulocytes/100 WBC (Bld) 2 % High 0 [facility] Interpretation and review of laboratory results Abnormal [facility] Lymphocytes/100 WBC (Bld) 9 % Low 24 - 43 % [facility] Lymphocytes/100 WBC (Bld) 1.30 % [facility] MCH (RBC) [Entitic mass] 31.1 pg 25.2 - 33.5 pg [facility] MCHC (RBC) [Mass/Vol] 30.5 g/dL 28.4 - 34.8 g/dL [facility] MCV (RBC) [Entitic vol] 102.0 fL 82.6 - 102.9 fL [facility] Monocytes/100 WBC (Bld) 6 % 3 - 12 % [facility] Monocytes/100 WBC (Bld) 0.87 % [facility] Neutrophils/100 WBC (Bld) 82 % High 36 - 65 % [facility] Nucleated RBC/100 WBC (Bld) [Ratio] 0.0 % 0.0 per 100 WBC [facility] Platelet mean volume (Bld) [Entitic vol] 10.5 fL 8.1 - 13.5 fL [facility] Platelets (Bld) [#/Vol] 156 10*3/uL [facility] RBC (Bld) [#/Vol] 4.57 10*6/uL 3.95 - 5.1 1 m/uL [facility] Segmented neutrophils/100 WBC (Bld) 11.43 % High [facility] WBC other (Bld) [#/Vol] 14.0 High [facility] CBC with Diffon 10-03-2022 Abs. Basophil 0.08 k/uL Normal 0.00-0.20 [facility] Comment on above: Performed By: #### B C #### [facility] [address] [place] [address] Snow Ranger: Collette Willard MD Abs. Eosinophil <0.03 Normal 0.00-0.44 [facility] Comment on above: Performed By: #### B C #### [facility] [address] [place], [place] [id number] Snow Ranger: Collette Willard MD Abs.Imm.Granulocyte 0.32 k/uL High 0.00-0.30 [facility] Comment on above: Performed By: #### B C #### [facility] [address] [place], [facility]83 Snow Ranger: Collette Willard MD Abs.Neutrophil (Seg) 11.43 k/uL High 1.50-8.10 [facility] Comment on above: Performed By: #### B C #### [address] [place], [facility]83 Snow Ranger: Collette Willard MD Basophils/100 WBC (Bld) 1 % Normal 0-2 [facility] Comment on above: Performed By: #### B C #### [address] [place], [facility]83 Snow Ranger: Collette Willard MD Eosinophils/100 WBC (Bld) 0 % Low 1-4 [facility] Comment on above: Performed By: #### B C #### [address] [place], [facility]83 Snow Ranger: Collette Willard MD Erythrocyte distribution width (RBC) [Ratio] 13.9 % Normal 11.8-14.4 [facility] Comment on above: Performed By: #### B C #### [facility] [address] [place] [address] Dr. [place], [facility]83 Snow Ranger: Collette Willard MD Hematocrit (Bld) [Volume fraction] 46.6 % Normal 36.3-47.1 [facility] Comment on above: Performed By: #### B C #### [address] [place], [facility]83 Snow Ranger: Collette Willard MD Hemoglobin (Bld) [Mass/Vol] 14.2 g/dL Normal 11.9-15.1 [facility] Comment on above: Performed By: #### B C #### [facility] [address] [place] [address] Snow Ranger: Collette Willard MD Immature granulocytes/100 WBC (Bld) 2 % High 0 [facility] Comment on above: Performed By: #### B C #### [facility] [address] [place], [facility]83 Snow Ranger: Collette Willard MD Lymphocytes (Bld) [#/Vol] 1.30 10*3/uL Normal 1.10-3.70 [facility] Comment on above: Performed By: #### B C #### [address] [place], [facility]83 Snow Ranger: Collette Willard MD Lymphocytes/100 WBC (Bld) 9 % Low 24-43 [facility] Comment on above: Performed By: #### B C #### [address] [place], [place] [id number] Snow Ranger: Collette Willard MD MCH (RBC) [Entitic mass] 31.1 pg Normal 25.2-33.5 [facility] Comment on above: Performed By: #### B C #### [address] [place], [facility]83 Snow Ranger: Collette Willard MD MCHC (RBC) [Mass/Vol] 30.5 g/dL Normal 28.4-34.8 [facility] Comment on above: Performed By: #### B C #### [address] [place] [address] Snow Ranger: Collette Willard MD MCV (RBC) [Entitic vol] 102.0 fL Normal 82.6-102.9 [facility] Comment on above: Performed By: #### B C #### [facility] [address] [place], [place] [id number] Snow Ranger: Collette Willard MD Monocytes (Bld) [#/Vol] 0.87 10*3/uL Normal 0.10-1.20 [facility] Comment on above: Performed By: #### B C #### [facility] [address] [place], [place] [id number] Snow Ranger: Collette Willard MD Monocytes/100 WBC (Bld) 6 % Normal 3-12 [facility] Comment on above: Performed By: #### B C #### [facility] [address] [place], [facility]83 Snow Ranger: Collette Willard MD Neutrophil (Seg) 82 % High 36-65 [facility] Comment on above: Performed By: #### B C #### [facility] [address] [place], [place] [id number] Snow Ranger: Collette Willard MD NRBC Automated 0.0 per 100 WBC Normal 0.0 [facility] Comment on above: Performed By: #### B C #### [address] [place], [place] [address]83 Snow Ranger: Collette Willard MD Platelet mean volume (Bld) [Entitic vol] 10.5 fL Normal 8.1-13.5 [facility] Comment on above: Performed By: #### B C #### [facility] [address] [place], [place] [id number] Snow Ranger: Collette Willard MD Platelets (Bld) [#/Vol] 156 10*3/uL Normal 138-453 [facility] Comment on above: Performed By: #### B C #### [facility] [address] [place], [place] [address]83 Snow Ranger: Collette Willard MD RBC (Bld) [#/Vol] 4.57 10*6/uL Normal 3.95-5.11 [facility] Comment on above: Performed By: #### B C #### [facility] [address] [place], [place] [phone] Snow Ranger: Collette Willard MD WBC (Bld) [#/Vol] 14.0 10*3/uL High 3.5-11.3 [facility] Comment on above: Performed By: #### B C #### [facility] [address] [place] [address] Snow Ranger: Collette Willard MD Cult,Urineon 10-02-2022 Cult,Urine Specimen Description .CLEAN CATCH URINE Culture NO GROWTH Report Status FINAL 10/02/2022 Normal [facility] Comment on above: Performed By: #### B C #### [facility] [address] [place] [address] Snow Ranger: Collette Willard MD Procalcitoninon 10-01-2022 Procalcitonin 0.06 ng/mL Normal <0.09 [facility] Comment on above: Result Comment: Suspected Sepsis: <0.50 ng/mL Low likelihood of sepsis. 0.50-2.00 ng/mL Increased likelihood of sepsis. Antibiotics encouraged. >2.00 ng/mL High risk of sepsis/shock. Antibiotics strongly encouraged. Suspected Lower Resp Tract Infections: <0.24 ng/mL Low likelihood of bacterial infection. >0.24 ng/mL Increased likelihood of bacterial infection. Antibiotics encouraged. With successful antibiotic therapy, PCT levels should decrease rapidly. (Half-life of 24 to 36 hours.) Procalcitonin values from samples collected within the first 6 hours of systemic infection may still be low. Retesting may be indicated. Values from day 1 and day 4 can be entered into the Change in Procalcitonin Calculator (www.uzuubg-aoe-iwbewcwyci.com) to determine the patient's Mortality Risk Prognosis In healthy neonates, plasma Procalcitonin (PCT) concentrations increase gradually after , reaching peak values at about 24 hours of age then decrease to normal values below 0.5 ng/mL by 48-72 hours of age. Performed By: #### P RCAL #### [facility] [address] [id number] Snow Ranger: Chriss Townsend MD Procalcitonin [Mass/Vol] 0.06 ng/mL NINF - 0.09 ng/mL [facility] Comment on above: Suspected Sepsis: <0.50 ng/mL Low likelihood of sepsis. 0.50-2.00 ng/mL Increased likelihood of sepsis. Antibiotics encouraged. >2.00 ng/mL High risk of sepsis/shock. Antibiotics strongly encouraged. Suspected Lower Resp Tract Infections: <0.24 ng/mL Low likelihood of bacterial infection. >0.24 ng/mL Increased likelihood of bacterial infection. Antibiotics encouraged. With successful antibiotic therapy, PCT levels should decrease rapidly. (Half-life of 24 to 36 hours.) Procalcitonin values from samples collected within the first 6 hours of systemic infection may still be low. Retesting may be indicated. Values from day 1 and day 4 can be entered into the Change in Procalcitonin Calculator (www.pjidtv-puw-ggdheqglzu.Zout[employer]) to determine the patient's Mortality Risk Prognosis In healthy neonates, plasma Procalcitonin (PCT) concentrations increase gradually after , reaching peak values at about 24 hours of age then decrease to normal values below 0.5 ng/mL by 48-72 hours of age. [facility] Urinalysison 10-01-2022 Bilirubin Ql (U) Negative NEGATIVE [facility] Clarity (U) Clear Clear [facility] Color (U) Yellow Yellow [facility] Glucose Test strip (U) [Mass/Vol] Negative NEGATIVE [facility] Hemoglobin Auto test strip Ql (U) Negative NEGATIVE [facility] Ketones (U) [Mass/Vol] Negative NEGATIVE [facility] Leukocyte esterase Test strip Ql (U) Negative NEGATIVE [facility] Nitrite Ql (U) Negative NEGATIVE [facility] pH (U) 6.5 [pH] 5.0 - 9.0 [facility] Protein (U) [Mass/Vol] Negative NEGATIVE [facility] Specific gravity (U) [Rel density] 1.010 1.010 - 1.020 [facility] Urobilinogen Qn (U) Normal Normal [facility] Urinalysis, Routineon 2022 Bilirubin, SemiQt,Ur Negative Normal NEG [facility] Comment on above: Performed By: #### B C #### [facility] [address] [place] [address] Snow Ranger: Collette Willard MD Blood, Urine Negative Normal NEG [facility] Comment on above: Performed By: #### B C #### [facility] [address] [place] [address] Snow Ranger: Collette Willard MD Clarity (U) Clear Normal CLEAR [facility] Comment on above: Performed By: #### B C #### [facility] [address] [place] [address] Snow Ranger: Collette Willard MD Color (U) Yellow Normal YEL [facility] Comment on above: Performed By: #### B C #### [facility] [address] [place] [address] Snow Ranger: Collette Willard MD Glucose Ql (U) Negative Normal NEG [facility] Comment on above: Performed By: #### B C #### [facility] [address] [place], [place] [id number] Snow Ranger: Collette Willard MD Ketones Ql (U) Negative Normal NEG [facility] Comment on above: Performed By: #### B C #### [facility] [address] [place] [address] Snow Ranger: Collette Willard MD Leukocyte esterase Test strip Ql (U) Negative Normal NEG [facility] Comment on above: Performed By: #### B C #### [facility] [address] [place] [address] Snow Ranger: Collette Willard MD Nitrite,Ur Negative Normal NEG [facility] Comment on above: Performed By: #### B C #### [facility] [address] [place] [address] Snow Ranger: Collette Willard MD PH,Ur 6.5 Normal 5.0-9.0 [facility] Comment on above: Performed By: #### B C #### [facility] [address] [place], [place] [address] Snow Ranger: Collette Willard MD Protein Ql (U) Negative Normal NEG [facility] Comment on above: Performed By: #### B C #### [address] [place] [address] Snow Ranger: Collette Willard MD Spec. [place],Ur 1.010 Normal 1.010-1.020 [facility] Comment on above: Performed By: #### B C #### [facility] [address] [place] [address] Dr. [place], [place] [address] Snow Ranger: Collette Willard MD Urobilinogen,Ur Normal Normal NORM [facility] Comment on above: Performed By: #### B C #### [address] [place], [place] [address] Snow Ranger: Collette Willard MD CBC with Diffon 09-29-2022 Abs. Basophil 0.04 k/uL Normal 0.00-0.20 [facility] Comment on above: Performed By: #### B C #### [facility] [address] [place] [address] [place] [address] Snow Ranger: Collette Willard MD Abs. Eosinophil <0.03 Normal 0.00-0.44 [facility] Comment on above: Performed By: #### B C #### [facility] [address] [place] [address] [place] [id number] Snow Ranger: Collette Willard MD Abs.Imm.Granulocyte 0.43 k/uL High 0.00-0.30 [facility] Comment on above: Performed By: #### B C #### [facility] [address] [place] [address] Dr. [place], [place] [phone] Snow Ranger: Collette Willard MD Abs.Neutrophil (Seg) 17.50 k/uL High 1.50-8.10 [facility] Comment on above: Performed By: #### B C #### [facility] [address] [place] [address] Dr. [place], [place] [phone] Snow Ranger: Collette Willard MD Basophils/100 WBC (Bld) 0 % Normal 0-2 [facility] Comment on above: Performed By: #### B C #### [address] [place], [place] [phone] Snow Ranger: Collette Willard MD Eosinophils/100 WBC (Bld) 0 % Low 1-4 [facility] Comment on above: Performed By: #### B C #### [address] [place], [place] [id number] Snow Ranger: Collette Willard MD Erythrocyte distribution width (RBC) [Ratio] 13.9 % Normal 11.8-14.4 [facility] Comment on above: Performed By: #### B C #### [address] [place], [place] [address]83 Snow Ranger: Collette Willard MD Hematocrit (Bld) [Volume fraction] 44.8 % Normal 36.3-47.1 [facility] Comment on above: Performed By: #### B C #### [address] [place] [address] Snow Ranger: Collette Willard MD Hemoglobin (Bld) [Mass/Vol] 14.3 g/dL Normal 11.9-15.1 [facility] Comment on above: Performed By: #### B C #### [facility] [address] [place], [place] [phone] Snow Ranger: Collette Willard MD Immature granulocytes/100 WBC (Bld) 2 % High 0 [facility] Comment on above: Performed By: #### B C #### [facility] [address] [place] [address] Dr. [place], [place] [phone] Snow Ranger: Collette Willard MD Lymphocytes (Bld) [#/Vol] 0.80 10*3/uL Low 1.10-3.70 [facility] Comment on above: Performed By: #### B C #### [address] [place], [facility]83 Snow Ranger: Collette Willard MD Lymphocytes/100 WBC (Bld) 4 % Low 24-43 [facility] Comment on above: Performed By: #### B C #### [address] [place], [facility]83 Snow Ranger: Collette Willard MD MCH (RBC) [Entitic mass] 31.0 pg Normal 25.2-33.5 [facility] Comment on above: Performed By: #### B C #### [address] [place], [place] [phone] Snow Ranger: Collette Willard MD MCHC (RBC) [Mass/Vol] 31.9 g/dL Normal 28.4-34.8 [facility] Comment on above: Performed By: #### B C #### [address] [place], [place] [id number] Snow Ranger: Collette Willard MD MCV (RBC) [Entitic vol] 97.0 fL Normal 82.6-102.9 [facility] Comment on above: Performed By: #### B C #### [address] [place] [address] Snow Ranger: Collette Willard MD Monocytes (Bld) [#/Vol] 1.27 10*3/uL High 0.10-1.20 [facility] Comment on above: Performed By: #### B C #### [facility] [address] [place], [place] [phone] Snow Ranger: Collette Willard MD Monocytes/100 WBC (Bld) 6 % Normal 3-12 [facility] Comment on above: Performed By: #### B C #### [facility] [address] [place], [place] [phone] Snow Ranger: Collette Willard MD Neutrophil (Seg) 88 % High 36-65 [facility] Comment on above: Performed By: #### B C #### [facility] [address] [place], [place] [phone] Snow Ranger: Collette Willard MD NRBC Automated 0.0 per 100 WBC Normal 0.0 [facility] Comment on above: Performed By: #### B C #### [facility] [address] [place] [address] Snow Ranger: Collette Willard MD Platelet mean volume (Bld) [Entitic vol] 10.6 fL Normal 8.1-13.5 [facility] Comment on above: Performed By: #### B C #### [address] [place] [address] Snow Ranger: Collette Willard MD Platelets (Bld) [#/Vol] 155 10*3/uL Normal 138-453 [facility] Comment on above: Performed By: #### B C #### [facility] [address] [place] [address] Dr. [place], [place] [phone] Snow Ranger: Collette Willard MD RBC (Bld) [#/Vol] 4.62 10*6/uL Normal 3.95-5.11 [facility] Comment on above: Performed By: #### B C #### [facility] [address] [place], [place] [phone] Snow Ranger: Collette Willard MD WBC (Bld) [#/Vol] 20.1 10*3/uL High 3.5-11.3 [facility] Comment on above: Performed By: #### B C #### [facility] [address] [place], [place] [phone] Snow Ranger: Collette Willard MD Comp Metabolic Profon 2022 Albumin [Mass/Vol] 3.8 g/dL Normal 3.5-5.2 [facility] Comment on above: Performed By: #### B C #### [facility] [address] [place], [place] [phone] Snow Ranger: Collette Willard MD Albumin/Glob Ratio 1.6 Normal 1.0-2.5 [facility] Comment on above: Performed By: #### B C #### [facility] [address] [place], [place] [address]83 Snow Ranger: Collette Willard MD Alkaline Phos 127 U/L High 35-104 [facility] Comment on above: Performed By: #### B C #### [facility] [address] [place], [place] 1478683 Snow Ranger: Collette Willard MD ALT [Catalytic activity/Vol] 55 U/L High 5-33 [facility] Comment on above: Performed By: #### B C #### [facility] [address] [place], [place] [phone] Snow Ranger: Collette Willard MD Anion gap [Moles/Vol] 10 mmol/L Normal 9-17 [facility] Comment on above: Performed By: #### B C #### [facility] [address] [place], [place] [phone] Snow Ranger: Collette Willard MD AST [Catalytic activity/Vol] 37 U/L High <32 [facility] Comment on above: Performed By: #### B C #### [facility] [address] [place], [place] [phone] Snow Ranger: Collette Willard MD Bilirubin [Mass/Vol] 0.4 mg/dL Normal 0.3-1.2 [facility] Comment on above: Performed By: #### B C #### [facility] [address] [place], [place] [phone] Snow Ranger: Collette Willard MD BUN/CRE Ratio 48 High 9-20 [facility] Comment on above: Performed By: #### B C #### [facility] [address] [place], [place] [phone] Snow Ranger: Collette Willard MD Calcium [Mass/Vol] 10.5 mg/dL High 8.6-10.4 [facility] Comment on above: Performed By: #### B C #### [facility] [address] [place], [place] [address]190383 Snow Ranger: Collette Willard MD Chloride [Moles/Vol] 100 mmol/L Normal 98-107 [facility] Comment on above: Performed By: #### B C #### [facility] [address] [place], [place] [address]74[address]83 Snow Ranger: Collette Willard MD CO2 [Moles/Vol] 29 mmol/L Normal 20-31 [facility] Comment on above: Performed By: #### B C #### [facility] [address] [place], [place] 9576283 Snow Ranger: Collette Willard MD Creatinine [Mass/Vol] 0.4 mg/dL Low 0.50-0.90 [facility] Comment on above: Performed By: #### B C #### [facility] [address] [place], [place] [phone] Snow Ranger: Collette Willard MD GFR/1.73 sq M.predicted among non-blacks MDRD (S/P/Bld) [Vol rate/Area] mL/min/{1.73_m2} Normal >60 [facility] Comment on above: Result Comment: These results are not intended for use in patients <18 years of age. eGFR results are calculated without a race factor using the 2020 CKD-EPI equation. Careful clinical correlation is recommended, particularly when comparing to results calculated using previous equations. The CKD-EPI equation is less accurate in patients with extremes of muscle mass, extra-renal metabolism of creatine, excessive creatine ingestion, or following therapy that affects renal tubular secretion. Performed By: #### B C #### [facility] [address] [place] [address] [place] [address] Snow Ranger: Collette Willard MD Glucose [Mass/Vol] 117 mg/dL High 70-99 [facility] Comment on above: Performed By: #### B C #### [facility] [address] [place] [address] Dr. [place], [place] [phone] Snow Ranger: Collette Willard MD Potassium [Moles/Vol] 4.7 mmol/L Normal 3.7-5.3 [facility] Comment on above: Performed By: #### B C #### [facility] [address] [place] [address] Dr. [place], [place] 1059483 Snow Ranger: Collette Willard MD Protein [Mass/Vol] 6.2 g/dL Low 6.4-8.3 [facility] Comment on above: Performed By: #### B C #### [facility] [address] [place] [address] Dr. [place], [place] [phone] Snow Ranger: Collette Willard MD Sodium [Moles/Vol] 139 mmol/L Normal 135-144 [facility] Comment on above: Performed By: #### B C #### [facility] [address] [place] [address] Dr. [place], [place] [phone] Snow Ranger: Collette Willard MD Urea nitrogen [Mass/Vol] 19 mg/dL Normal 8-23 [facility] Comment on above: Performed By: #### B C #### [facility] [address] [place] [address] Snow Ranger: Collette Willard MD XR cervical spine 2Von 09-21 XR cervical spine 2V [facility] Main [address] [address] XRay Report Signed Patient: Mirima German MR#: [id number] : 1955 Acct:[id number] Age/Sex: 67 / F ADM Date: 09/17/22 Loc: Room: [address] [place] [address] Type: ADM IN Attending Dr: Tom Hill MD Copies to: Tom Hill MD Ordering Provider: Tom Hill MD Date of Service: 09/21/22 XR/XR cervical spine 2V: postop 2 views of thecervical spine HISTORY: C1-2 fusion. Odontoid fracture. COMPARISON: None The cervical spine visualized laterally down to the C4 level. POSTOPERATIVE CHANGES: Stable C1-2 posterior fixation. BONY ALIGNMENT: Unchanged FRACTURE: None DISC DEGENERATION: Disc spaces are adequate. FACETS: Unremarkable FORAMEN: Unremarkable DENS: Intact CRANIOCERVICAL JUNCTION: Unremarkable SOFT TISSUES: Unremarkable XR/XR cervical spine 2V IMPRESSION: Stable postsurgical changes. Unchanged bony alignment. Impression dictated by: William Auguste M.D.09/21/2022 12:09 PM Dictation Location: [place] [address] Transcribed By: [facility] 09/21/22 1209 Dictated By: William Auguste DO 09/21/22 1205 Signed By: 09/21/22 1209 Normal [facility] Alanine aminotransferase [En zymatic activity/volume] in Serum or PlasmaOrdered By: Tom Hill on 09-18-2022 ALT [Catalytic activity/Vol] 32 U/L [facility] Albumin [Mass/volume] in Ser um or Plasma by Bromocresol green (BCG) dye binding methoOrdered By: Tom Hill on 09-18-2022 Albumin BCG dye [Mass/Vol] 3.9 g/dL 3.5-5.7 [facility] Alkaline phosphatase [Enzyma tic activity/volume] in Serum or PlasmaOrdered By: Tom Hill on 09-18-2022 ALP [Catalytic activity/Vol] 93 U/L 34-104 [facility] Aspartate aminotransferase [ Enzymatic activity/volume] in Serum or PlasmaOrdered By: Tom Hill on 09-18-2022 AST [Catalytic activity/Vol] 27 U/L 13-39 [facility] Basophils Auto (Bld) [#/Vol] Ordered By: Tom Hill on 09-18-2022 Basophils (Bld) [#/Vol] 0.1 10*3/uL 0.0-0.2 [facility] Basophils/100 WBC Auto (Bld) Ordered By: Tom Sergio on 09-18-2022 Basophils/100 WBC (Bld) 0.6 % . [facility] Bilirubin.total [Mass/volume ] in Serum or PlasmaOrdered By: Tom Hill on 09-18-2022 Bilirubin [Mass/Vol] 0.3 mg/dL 0.3-1.0 [facility] Calcium [Mass/volume] in Ser um or PlasmaOrdered By: Tom Sergio on 09-18-2022 Calcium [Mass/Vol] 10.5 mg/dL 8.6-10.3 [facility] Carbon dioxide, total [Moles /volume] in Serum or PlasmaOrdered By: Tom Hill on 09-18-2022 CO2 [Moles/Vol] 32.3 mmol/L 21.0-31.0 [facility] Chloride [Moles/volume] in S jody or PlasmaOrdered By: Tom Hill on 09-18-2022 Chloride [Moles/Vol] 106 mmol/L 98-107 [facility] Complete Blood Count Auto Di ffon 09-18-2022 Basophils (Bld) [#/Vol] 0.1 10*3/uL Normal 0.0-0.2 [facility] Comment on above: Result Comment: PERF ORMED BY: [facility] [address] [address] PATHOLOGIST VENEREAL DISEASE INVESTIGATOR PETER RAYO M.D. Performed By: #### C MP, PAB, CBC #### [facility] [address] [place] [address] [place] Basophils/100 WBC (Bld) 0.6 % Normal . [facility] Comment on above: Performed By: #### C MP, PAB, CBC #### [facility] [address] [place] [address] [place] Eosinophils (Bld) [#/Vol] 0.0 10*3/uL Normal 0.0-0.45 [facility] Comment on above: Performed By: #### C MP, PAB, CBC #### [facility] [address] [place] [address] [place] Eosinophils/100 WBC (Bld) 0.0 % Normal . [facility] Comment on above: Performed By: #### C MP, PAB, CBC #### [address] Erythrocyte distribution width (RBC) [Ratio] 14.5 % Normal 11.9-15.3 [facility] Comment on above: Performed By: #### C MP, PAB, CBC #### [place] [address] [place] Hematocrit (Bld) [Volume fraction] 39.4 % Normal 34.0-46.4 [facility] Comment on above: Performed By: #### C MP, PAB, CBC #### [facility] [address] [place] [address] [place] Hemoglobin (Bld) [Mass/Vol] 12.9 g/dL Normal 11.8-15.4 [facility] Comment on above: Performed By: #### C MP, PAB, CBC #### [facility] [address] [place] [address] [place] Lymphocytes (Bld) [#/Vol] 1.1 10*3/uL Normal 1.00-4.8 [facility] Comment on above: Performed By: #### C MP, PAB, CBC #### [facility] [address] [place] [address] [place] Lymphocytes/100 WBC (Bld) 9.2 % Normal . [facility] Comment on above: Performed By: #### C MP, PAB, CBC #### [facility] [address] MCH (RBC) [Entitic mass] 30.7 pg Normal 24.7-34.3 [facility] Comment on above: Performed By: #### C MP, PAB, CBC #### [address] MCV (RBC) [Entitic vol] 93.4 fL Normal 80-100 [facility] Comment on above: Performed By: #### C MP, PAB, CBC #### [address] Mean Corpuscular HGB Conc 32.8 g/dL Normal 32.0-35.0 [facility] Comment on above: Performed By: #### C MP, PAB, CBC #### [address] Monocytes (Bld) [#/Vol] 1.0 10*3/uL High 0.0-0.8 [facility] Comment on above: Performed By: #### C MP, PAB, CBC #### [address] Monocytes/100 WBC (Bld) 8.3 % Normal . [facility] Comment on above: Performed By: #### C MP, PAB, CBC #### [address] Neutrophils (Bld) [#/Vol] 9.9 10*3/uL High 1.8-7.7 [facility] Comment on above: Performed By: #### C MP, PAB, CBC #### [address] Neutrophils/100 WBC (Bld) 81.9 % Normal . [facility] Comment on above: Performed By: #### C MP, PAB, CBC #### [address] NRBC% 0.1 /100{WBC} Normal 0-0.5 [facility] Comment on above: Performed By: #### C MP, PAB, CBC #### [facility] [address] Platelet mean volume (Bld) [Entitic vol] 8.1 fL Normal 6.3-10.7 [facility] Comment on above: Performed By: #### C MP, PAB, CBC #### [address] Platelets (Bld) [#/Vol] 220 10*3/uL Normal 150-450 [facility] Comment on above: Performed By: #### C MP, PAB, CBC #### [address] RBC (Bld) [#/Vol] 4.22 10*6/uL Normal 3.60-5.00 [facility] Comment on above: Performed By: #### C MP, PAB, CBC #### [address] WBC (Bld) [#/Vol] 12.1 10*3/uL High 3.8-11.6 [facility] Comment on above: Performed By: #### C MP, PAB, CBC #### [address] Comprehensive Metabolic Pane markell 09-18-2022 Albumin [Mass/Vol] 3.9 g/dL Normal 3.5-5.7 [facility] Comment on above: Performed By: #### C MP, PAB, CBC #### [address] Albumin/Globulin [Mass ratio] 1.7 {ratio} Normal [facility] Comment on above: Performed By: #### C MP, PAB, CBC #### [address] ALP [Catalytic activity/Vol] 93 U/L Normal 34-104 [facility] Comment on above: Performed By: #### C MP, PAB, CBC #### [address] ALT [Catalytic activity/Vol] 32 U/L Normal 7-52 [facility] Comment on above: Performed By: #### C MP, PAB, CBC #### [facility] [address] [place] [address] [place] Anion gap [Moles/Vol] 9.1 mmol/L Normal 6.0-15.0 [facility] Comment on above: Performed By: #### C MP, PAB, CBC #### [facility] [address] [place] [id number] [place] AST [Catalytic activity/Vol] 27 U/L Normal 13-39 [facility] Comment on above: Performed By: #### C MP, PAB, CBC #### [facility] [address] Bilirubin [Mass/Vol] 0.3 mg/dL Normal 0.3-1.0 [facility] Comment on above: Performed By: #### C MP, PAB, CBC #### [facility] [address] [place] [address] [place] Calcium [Mass/Vol] 10.5 mg/dL High 8.6-10.3 [facility] Comment on above: Performed By: #### C MP, PAB, CBC #### [facility] [address] [place] [address] [place] Chloride [Moles/Vol] 106 mmol/L Normal 98-107 [facility] Comment on above: Performed By: #### C MP, PAB, CBC #### [facility] [address] [place] [address] [place] CO2 [Moles/Vol] 32.3 mmol/L High 21.0-31.0 [facility] Comment on above: Performed By: #### C MP, PAB, CBC #### [facility] [address] [place] [address] [place] Creatinine [Mass/Vol] 0.46 mg/dL Low 0.60-1.20 [facility] Comment on above: Performed By: #### C MP, PAB, CBC #### [facility] [address] [place] [id number] [place] Creatinine Clr Calc Pharmacy 72.98 Normal [facility] Comment on above: Performed By: #### C MP, PAB, CBC #### [facility] [address] [place] [address] [place] GFR/1.73 sq M.predicted MDRD (S/P/Bld) [Vol rate/Area] mL/min/{1.73_m2} [facility] Comment on above: Performed By: #### C MP, PAB, CBC #### [facility] [address] Globulin (S) [Mass/Vol] 2.3 g/dL [facility] Comment on above: Performed By: #### C MP, PAB, CBC #### [facility] [address] Glucose [Mass/Vol] 113 mg/dL High 70-100 [facility] Comment on above: Result Comment: [place] Glucose Reference Range is dependent on time and content of last meal. Glucose of more than 200 mg/dL in a nonstressed, ambulatory subject supports the diagnosis of Diabetes Mellitus. ADA recommended reference range Performed By: #### C MP, PAB, CBC #### [facility] [address] Potassium [Moles/Vol] 4.4 mmol/L Normal 3.5-5.1 [facility] Comment on above: Performed By: #### C MP, PAB, CBC #### [facility] [address] Protein [Mass/Vol] 6.2 g/dL Low 6.4-8.9 [facility] Comment on above: Performed By: #### C MP, PAB, CBC #### [facility] [address] [place] [address] [place] Sodium [Moles/Vol] 143 mmol/L Normal 136-145 [facility] Comment on above: Performed By: #### C MP, PAB, CBC #### [facility] [address] Urea nitrogen [Mass/Vol] 21 mg/dL Normal 7-25 [facility] Comment on above: Performed By: #### C MP, PAB, CBC #### [facility] [address] Creatinine [Mass/volume] in Serum or PlasmaOrdered By: Tom Hill on 09-18-2022 Creatinine [Mass/Vol] 0.46 mg/dL 0.60-1.20 [facility] Eosinophils Auto (Bld) [#/Vo l]Ordered By: Tom Hill on 09-18-2022 Eosinophils (Bld) [#/Vol] 0.0 10*3/uL 0.0-0.45 [facility] Eosinophils/100 WBC Auto (Bl d)Ordered By: Tom Hill on 09-18-2022 Eosinophils/100 WBC (Bld) 0.0 % . [facility] Erythrocyte distribution wid th Auto (RBC) [Ratio]Ordered By: Tom Hill on 09-18-2022 Erythrocyte distribution width (RBC) [Ratio] 14.5 % 11.9-15.3 [facility] Globulin Calc (S) [Mass/Vol] Ordered By: Tom Hill on 09-18-2022 Globulin (S) [Mass/Vol] 2.3 g/dL [facility] Glucose [Mass/volume] in Ser um or PlasmaOrdered By: Tom Hill on 09-18-2022 Glucose [Mass/Vol] 113 mg/dL 70-100 [facility] Comment on above: ADA recommended refe rence rangeRandom Glucose Reference Range is dependent on time and content of last meal. Glucose of more than 200 mg/dL in a nonstressed, ambulatory subject supports the diagnosis of Diabetes Mellitus. Hematocrit Auto (Bld) [Volum e fraction]Ordered By: Tom Hill on 09-18-2022 Hematocrit (Bld) [Volume fraction] 39.4 % 34.0-46.4 [facility] Hemoglobin [Mass/volume] in BloodOrdered By: Tom Hill on 09-18-2022 Hemoglobin (Bld) [Mass/Vol] 12.9 g/dL 11.8-15.4 [facility] Leukocytes [#/volume] correc nilay for nucleated erythrocytes in Blood by Automated counOrdered By: Tom Hill on 09-18-2022 WBC corrected for nucl RBC Auto (Bld) [#/Vol] 12.1 10*3/uL 3.8-11.6 [facility] Lymphocytes Auto (Bld) [#/Vo l]Ordered By: Tom Hill on 09-18-2022 Lymphocytes (Bld) [#/Vol] 1.1 10*3/uL 1.00-4.8 [facility] Lymphocytes/100 WBC Auto (Bl d)Ordered By: Tom Hill on 09-18-2022 Lymphocytes/100 WBC (Bld) 9.2 % . [facility] MCH Auto (RBC) [Entitic mass ]Ordered By: Tom Hill on 09-18-2022 MCH (RBC) [Entitic mass] 30.7 pg 24.7-34.3 [facility] MCHC Auto (RBC) [Mass/Vol]Or dered By: Tom Hill on 09-18-2022 MCHC (RBC) [Mass/Vol] 32.8 g/dL 32.0-35.0 [facility] MCV Auto (RBC) [Entitic vol] Ordered By: Tom Hill on 09-18-2022 MCV (RBC) [Entitic vol] 93.4 fL 80-100 [facility] Monocytes Auto (Bld) [#/Vol] Ordered By: Tom Hill on 09-18-2022 Monocytes (Bld) [#/Vol] 1.0 10*3/uL 0.0-0.8 [facility] Monocytes/100 WBC Auto (Bld) Ordered By: Tom Hill on 09-18-2022 Monocytes/100 WBC (Bld) 8.3 % . [facility] Neutrophils Auto (Bld) [#/Vo l]Ordered By: Tom Hill on 09-18-2022 Neutrophils (Bld) [#/Vol] 9.9 10*3/uL 1.8-7.7 [facility] Neutrophils/100 WBC Auto (Bl d)Ordered By: Tom Hill on 09-18-2022 Neutrophils/100 WBC (Bld) 81.9 % . [facility] No Panel InformationOrdered By: Tom Hill on 09-18-2022 Estimated GFR (CKD-EPI) > 60.0 mL/Min [facility] Creatinine Clearance (Chem 72.98 [facility] Nucleated erythrocytes [Pres ence] in Blood by Automated countOrdered By: Tom Hill on 09-18-2022 Nucleated RBC Auto Ql (Bld) 0.1 /100{WBC} 0-0.5 [facility] Platelet mean volume Auto (B ld) [Entitic vol]Ordered By: Tom Hill on 09-18-2022 Platelet mean volume (Bld) [Entitic vol] 8.1 fL 6.3-10.7 [facility] Platelets Auto (Bld) [#/Vol] Ordered By: Tom Hill on 09-18-2022 Platelets (Bld) [#/Vol] 220 10*3/uL 150-450 [facility] Potassium [Moles/volume] in Serum or PlasmaOrdered By: Tom Hill on 09-18-2022 Potassium [Moles/Vol] 4.4 mmol/L 3.5-5.1 [facility] Prealbuminon 09-18-2022 Prealbumin [Mass/Vol] 39.3 mg/dL High 17.0-34.0 [facility] Comment on above: Result Comment: PERF ORMED BY: [facility] [address] [place] [address] PATHOLOGIST VENEREAL DISEASE INVESTIGATOR PETER RAYO M.D. Performed By: #### A BG #### Point of Care testing , Prealbumin [Mass/volume] in Serum or PlasmaOrdered By: Tom Hill on 09-18-2022 Prealbumin [Mass/Vol] 39.3 mg/dL 17.0-34.0 [facility] Protein [Mass/volume] in Ser um or PlasmaOrdered By: Tom Hill on 09-18-2022 Protein [Mass/Vol] 6.2 g/dL 6.4-8.9 [facility] RBC Auto (Bld) [#/Vol]Ordere d By: Tom Hill on 09-18-2022 RBC (Bld) [#/Vol] 4.22 10*6/uL 3.60-5.00 [facility] Serum or plasma albumin/glob ulin mass ratioOrdered By: Tom Hill on 09-18-2022 Albumin/Globulin [Mass ratio] 1.7 {ratio} [facility] Serum or plasma anion gap de terminationOrdered By: Tom Hill on 09-18-2022 Anion gap [Moles/Vol] 9.1 mmol/L 6.0-15.0 [facility] Sodium [Moles/volume] in Ser um or PlasmaOrdered By: Tom Hill on 09-18-2022 Sodium [Moles/Vol] 143 mmol/L 136-145 [facility] Urea nitrogen [Mass/volume] in Serum or PlasmaOrdered By: Tom Hill on 09-18-2022 Urea nitrogen [Mass/Vol] 21 mg/dL 7- [facility] WBC Auto (Bld) [#/Vol]Ordere d By: Tom Hill on 09-18-2022 WBC (Bld) [#/Vol] 12.1 10*3/uL 3.8-11.6 [facility] Anisocytosis LM Ql (Bld)Orde red By: Mildred Summers on 09-17-2022 Anisocytosis Ql (Bld) Slight [facility] Basic Metabolic Panelon 08-22 Anion gap [Moles/Vol] 9.4 mmol/L Normal 6.0-15.0 [facility] Comment on above: Order Comment: pt ge tting pt check back Performed By: #### R SUSI WEISS REDRAW K #### [facility] [address] [place] [address] [place] Calcium [Mass/Vol] 10.4 mg/dL High 8.6-10.3 [facility] Comment on above: Order Comment: pt ge tting pt check back Performed By: #### R MATEO EPPERSONRASrikanth K #### [facility] [address] [place] [id number] [place] Chloride [Moles/Vol] 104 mmol/L Normal 98-107 [facility] Comment on above: Order Comment: pt ge tting pt check back Performed By: #### R SUSI WEISS REDRAW K #### [facility] [address] [place] [id number] [place] CO2 [Moles/Vol] 31.9 mmol/L High 21.0-31.0 [facility] Comment on above: Order Comment: pt ge tting pt check back Performed By: #### GABINO BENOIT #### [facility] [address] [place] [address] Creatinine [Mass/Vol] 0.46 mg/dL Low 0.60-1.20 [facility] Comment on above: Order Comment: pt ge tting pt check back Performed By: #### GABINO BENOIT #### [place] [address] [place] Creatinine Clr Calc Pharmacy 73.67 [facility] Comment on above: Order Comment: pt ge tting pt check back Result Comment: PERF ORMED BY: [place] [address] PATHOLOGIST VENEREAL DISEASE INVESTIGATOR PETER RAYO M.D. Performed By: #### GABINO BENOIT #### [address] GFR/1.73 sq M.predicted MDRD (S/P/Bld) [Vol rate/Area] mL/min/{1.73_m2} [facility] Comment on above: Order Comment: pt ge tting pt check back Performed By: #### GABINO BENOIT #### [address] Glucose [Mass/Vol] 115 mg/dL High 70-100 [facility] Comment on above: Order Comment: pt ge tting pt check back Result Comment: [place] om Glucose Reference Range is dependent on time and content of last meal. Glucose of more than 200 mg/dL in a nonstressed, ambulatory subject supports the diagnosis of Diabetes Mellitus. ADA recommended reference range Performed By: #### GABINO BENOIT #### [place] [address] [place] Potassium [Moles/Vol] 4.3 mmol/L Normal 3.5-5.1 [facility] Comment on above: Order Comment: pt ge tting pt check back Performed By: #### R EDJAXON WEISS REDRAW K #### [facility] [address] Sodium [Moles/Vol] 141 mmol/L Normal 136-145 [facility] Comment on above: Order Comment: pt ge tting pt check back Performed By: #### R SUSI WEISS REDRAW K #### [facility] [address] Urea nitrogen [Mass/Vol] 22 mg/dL Normal 7-25 [facility] Comment on above: Order Comment: pt ge tting pt check back Performed By: #### R SUSI WEISS REDRAW K #### [facility] [address] Basophils Auto (Bld) [#/Vol] Ordered By: Mildred Summers on 09-17-2022 Basophils (Bld) [#/Vol] 0.1 10*3/uL 0.0-0.2 [facility] Basophils/100 WBC Auto (Bld) Ordered By: Mildred Summers on 09-17-2022 Basophils/100 WBC (Bld) 0.4 % . [facility] Calcium [Mass/volume] in Ser um or PlasmaOrdered By: Arnaud Max on 09-17-2022 Calcium [Mass/Vol] 10.4 mg/dL 8.6-10.3 [facility] Carbon dioxide, total [Moles /volume] in Serum or PlasmaOrdered By: Arnaud Max on 09-17-2022 CO2 [Moles/Vol] 31.9 mmol/L 21.0-31.0 [facility] Chloride [Moles/volume] in S jody or PlasmaOrdered By: Arnaud Max on 09-17-2022 Chloride [Moles/Vol] 104 mmol/L 98-107 [facility] Creatinine [Mass/volume] in Serum or PlasmaOrdered By: Arnaud Max on 09-17-2022 Creatinine [Mass/Vol] 0.46 mg/dL 0.60-1.20 [facility] Eosinophils Auto (Bld) [#/Vo l]Ordered By: Mildred Summers on 09-17-2022 Eosinophils (Bld) [#/Vol] 0.2 10*3/uL 0.0-0.45 [facility] Eosinophils/100 WBC Auto (Bl d)Ordered By: Mildred Summers on 09-17-2022 Eosinophils/100 WBC (Bld) 1.6 % . [facility] Erythrocyte distribution wid th Auto (RBC) [Ratio]Ordered By: Mildred Summers on 09-17-2022 Erythrocyte distribution width (RBC) [Ratio] 14.9 % 11.9-15.3 [facility] Glucose [Mass/volume] in Ser um or PlasmaOrdered By: Arnaud Mxa on 09-17-2022 Glucose [Mass/Vol] 115 mg/dL 70-100 [facility] Comment on above: ADA recommended refe rence rangeRandom Glucose Reference Range is dependent on time and content of last meal. Glucose of more than 200 mg/dL in a nonstressed, ambulatory subject supports the diagnosis of Diabetes Mellitus. Hematocrit Auto (Bld) [Volum e fraction]Ordered By: Mildred Summers on 09-17-2022 Hematocrit (Bld) [Volume fraction] 38.0 % 34.0-46.4 [facility] Hemoglobin [Mass/volume] in BloodOrdered By: Mildred Summers on 09-17-2022 Hemoglobin (Bld) [Mass/Vol] 12.7 g/dL 11.8-15.4 [facility] Leukocytes [#/volume] correc nilay for nucleated erythrocytes in Blood by Automated counOrdered By: Mildred Summers on 09-17-2022 WBC corrected for nucl RBC Auto (Bld) [#/Vol] 15.1 10*3/uL 3.8-11.6 [facility] Lymphocytes Auto (Bld) [#/Vo l]Ordered By: Mildred Summers on 09-17-2022 Lymphocytes (Bld) [#/Vol] 1.0 10*3/uL 1.00-4.8 [facility] Lymphocytes/100 WBC Auto (Bl d)Ordered By: Mildred Summers on 09-17-2022 Lymphocytes/100 WBC (Bld) 6.9 % . [facility] MCH Auto (RBC) [Entitic mass ]Ordered By: Mildred Summers on 09-17-2022 MCH (RBC) [Entitic mass] 31.2 pg 24.7-34.3 [facility] MCHC Auto (RBC) [Mass/Vol]Or dered By: Mildred Summers on 09-17-2022 MCHC (RBC) [Mass/Vol] 33.6 g/dL 32.0-35.0 [facility] MCV Auto (RBC) [Entitic vol] Ordered By: Mildred Summers on 09-17-2022 MCV (RBC) [Entitic vol] 92.9 fL 80-100 [facility] Microcytes LM Ql (Bld)Ordere d By: Mildred Summers on 09-17-2022 Microcytes Ql (Bld) Slight [facility] Monocytes Auto (Bld) [#/Vol] Ordered By: Mildred Summers on 09-17-2022 Monocytes (Bld) [#/Vol] 1.1 10*3/uL 0.0-0.8 [facility] Monocytes/100 WBC Auto (Bld) Ordered By: Mildred Summers on 09-17-2022 Monocytes/100 WBC (Bld) 7.6 % . [facility] Neutrophils Auto (Bld) [#/Vo l]Ordered By: Mildred Summers on 09-17-2022 Neutrophils (Bld) [#/Vol] 12.6 10*3/uL 1.8-7.7 [facility] Neutrophils/100 WBC Auto (Bl d)Ordered By: Mildred Summers on 09-17-2022 Neutrophils/100 WBC (Bld) 83.5 % . [facility] No Panel InformationOrdered By: Arnaud Max on 09-17-2022 Estimated GFR (CKD-EPI) > 60.0 mL/Min [facility] Creatinine Clearance (Chem 73.67 [facility] Nucleated erythrocytes [Pres ence] in Blood by Automated countOrdered By: Mildred Summers on 09-17-2022 Nucleated RBC Auto Ql (Bld) 0.2 /100{WBC} 0-0.5 [facility] Platelet adequacy [Presence] in Blood by Light microscopyOrdered By: Mildred Summers on 09-17-2022 Platelets LM Ql (Bld) Normal Normal [facility] Platelet mean volume Auto (B ld) [Entitic vol]Ordered By: Mildred Summers on 09-17-2022 Platelet mean volume (Bld) [Entitic vol] 8.5 fL 6.3-10.7 [facility] Platelet morphology finding [Identifier] in BloodOrdered By: Mildred Summers on 09-17-2022 Platelet morphology finding Nom (Bld) Normal Normal [facility] Platelets Auto (Bld) [#/Vol] Ordered By: Mildred Summers on 09-17-2022 Platelets (Bld) [#/Vol] 278 10*3/uL 150-450 [facility] Potassium [Moles/volume] in Serum or PlasmaOrdered By: Arnaud Max on 09-17-2022 Potassium [Moles/Vol] 4.3 mmol/L 3.5-5.1 [facility] RBC Auto (Bld) [#/Vol]Ordere d By: Mildred Summers on 09-17-2022 RBC (Bld) [#/Vol] 4.09 10*6/uL 3.60-5.00 [facility] RBC morphologyOrdered By: Leidy Summers on 09-17-2022 RBC morphology finding Nom (Bld) N/A [facility] Scan and CBCon 09-17-2022 Anisocytosis Ql (Bld) Slight Normal [facility] Comment on above: Performed By: #### A BG #### Point of Care testing , Basophils (Bld) [#/Vol] 0.1 10*3/uL Normal 0.0-0.2 [facility] Comment on above: Performed By: #### A BG #### Point of Care testing , Basophils/100 WBC (Bld) 0.4 % Normal . [facility] Comment on above: Performed By: #### A BG #### Point of Care testing , Eosinophils (Bld) [#/Vol] 0.2 10*3/uL Normal 0.0-0.45 [facility] Comment on above: Performed By: #### A BG #### Point of Care testing , Eosinophils/100 WBC (Bld) 1.6 % Normal . [facility] Comment on above: Performed By: #### A BG #### Point of Care testing , Erythrocyte distribution width (RBC) [Ratio] 14.9 % Normal 11.9-15.3 [facility] Comment on above: Performed By: #### A BG #### Point of Care testing , Hematocrit (Bld) [Volume fraction] 38.0 % Normal 34.0-46.4 [facility] Comment on above: Performed By: #### A BG #### Point of Care testing , Hemoglobin (Bld) [Mass/Vol] 12.7 g/dL Normal 11.8-15.4 [facility] Comment on above: Performed By: #### A BG #### Point of Care testing , Lymphocytes (Bld) [#/Vol] 1.0 10*3/uL Normal 1.00-4.8 [facility] Comment on above: Performed By: #### A BG #### Point of Care testing , Lymphocytes/100 WBC (Bld) 6.9 % Normal . [facility] Comment on above: Performed By: #### A BG #### Point of Care testing , MCH (RBC) [Entitic mass] 31.2 pg Normal 24.7-34.3 [facility] Comment on above: Performed By: #### A BG #### Point of Care testing , MCV (RBC) [Entitic vol] 92.9 fL Normal 80-100 [facility] Comment on above: Performed By: #### A BG #### Point of Care testing , Mean Corpuscular HGB Conc 33.6 g/dL Normal 32.0-35.0 [facility] Comment on above: Performed By: #### A BG #### Point of Care testing , Microcytosis Slight Normal [facility] Comment on above: Performed By: #### A BG #### Point of Care testing , Monocytes (Bld) [#/Vol] 1.1 10*3/uL High 0.0-0.8 [facility] Comment on above: Performed By: #### A BG #### Point of Care testing , Monocytes/100 WBC (Bld) 7.6 % Normal . [facility] Comment on above: Performed By: #### A BG #### Point of Care testing , Neutrophils (Bld) [#/Vol] 12.6 10*3/uL High 1.8-7.7 [facility] Comment on above: Performed By: #### A BG #### Point of Care testing , Neutrophils/100 WBC (Bld) 83.5 % Normal . [facility] Comment on above: Performed By: #### A BG #### Point of Care testing , NRBC% 0.2 /100{WBC} Normal 0-0.5 [facility] Comment on above: Performed By: #### A BG #### Point of Care testing , Platelet Estimate Normal Normal Normal [facility] Comment on above: Performed By: #### A BG #### Point of Care testing , Platelet mean volume (Bld) [Entitic vol] 8.5 fL Normal 6.3-10.7 [facility] Comment on above: Performed By: #### A BG #### Point of Care testing , Platelet Morphology Normal Normal Normal [facility] Comment on above: Result Comment: PERF ORMED BY: [facility] [address] [place] [address] PATHOLOGIST VENEREAL DISEASE INVESTIGATOR PETER RAYO M.D. Performed By: #### A BG #### Point of Care testing , Platelets (Bld) [#/Vol] 278 10*3/uL Normal 150-450 [facility] Comment on above: Performed By: #### A BG #### Point of Care testing , RBC (Bld) [#/Vol] 4.09 10*6/uL Normal 3.60-5.00 [facility] Comment on above: Performed By: #### A BG #### Point of Care testing , WBC (Bld) [#/Vol] 15.1 10*3/uL High 3.8-11.6 [facility] Comment on above: Performed By: #### A BG #### Point of Care testing , Serum or plasma anion gap de terminationOrdered By: Arnaud Max on 09-17-2022 Anion gap [Moles/Vol] 9.4 mmol/L 6.0-15.0 [facility] Sodium [Moles/volume] in Ser um or PlasmaOrdered By: Arnaud Max on 09-17-2022 Sodium [Moles/Vol] 141 mmol/L 136-145 [facility] Urea nitrogen [Mass/volume] in Serum or PlasmaOrdered By: Arnaud Max on 09-17-2022 Urea nitrogen [Mass/Vol] 22 mg/dL 10-14 [facility] WBC Auto (Bld) [#/Vol]Ordere d By: Mildred Summers on 09-17-2022 WBC (Bld) [#/Vol] 15.1 10*3/uL 3.8-11.6 [facility] Basic Metabolic Panelon 08-22 Anion gap [Moles/Vol] Not performed Normal 6.0-15.0 [facility] Comment on above: Performed By: #### R GABINO EPPERSON #### [facility] [address] [place] [address] [place] Calcium [Mass/Vol] 10.5 mg/dL High 8.6-10.3 [facility] Comment on above: Performed By: #### R GABINO EPPERSON #### [facility] [address] [place] [id number] [place] Chloride [Moles/Vol] 100 mmol/L Normal 98-107 [facility] Comment on above: Performed By: #### R GABINO EPPERSON K #### [facility] [address] [place] [id number] [place] CO2 [Moles/Vol] 30.2 mmol/L Normal 21.0-31.0 [facility] Comment on above: Performed By: #### R GABINO EPPERSON K #### [facility] [address] [place] [address] [place] Creatinine [Mass/Vol] 0.53 mg/dL Low 0.60-1.20 [facility] Comment on above: Performed By: #### GABINO BENOIT #### [address] Creatinine Clr Calc Pharmacy 72.44 Normal [facility] Comment on above: Result Comment: PERF ORMED BY: [place] [address] PATHOLOGIST VENEREAL DISEASE INVESTIGATOR PETER RAYO M.D. Performed By: #### GABINO BENOIT #### [address] GFR/1.73 sq M.predicted MDRD (S/P/Bld) [Vol rate/Area] mL/min/{1.73_m2} [facility] Comment on above: Performed By: #### GABINO BENOIT #### [address] Glucose [Mass/Vol] 124 mg/dL High 70-100 [facility] Comment on above: Result Comment: [place] Glucose Reference Range is dependent on time and content of last meal. Glucose of more than 200 mg/dL in a nonstressed, ambulatory subject supports the diagnosis of Diabetes Mellitus. ADA recommended reference range Performed By: #### GABINO BENOIT #### [address] Potassium Normal 3.5-5.1 [facility] Comment on above: Result Comment: Spec imen hemolyzed, redraw requested Performed By: #### GABINO BENOIT #### [place] [address] [place] Sodium [Moles/Vol] 137 mmol/L Normal 136-145 [facility] Comment on above: Performed By: #### GABINO BENOIT #### [address] Urea nitrogen [Mass/Vol] 16 mg/dL Normal 7-25 [facility] Comment on above: Performed By: #### GABINO BENOIT #### [address] Complete Blood Count Auto Di ffon 09-16-2022 Basophils (Bld) [#/Vol] 0.0 10*3/uL Normal 0.0-0.2 [facility] Comment on above: Result Comment: PERF ORMED BY: [place] [address] PATHOLOGIST VENEREAL DISEASE INVESTIGATOR PETER RAYO M.D. Performed By: #### GABINO BENOIT #### [address] Basophils/100 WBC (Bld) 0.2 % Normal . [facility] Comment on above: Performed By: #### GABINO BENOIT #### [address] Eosinophils (Bld) [#/Vol] 0.0 10*3/uL Normal 0.0-0.45 [facility] Comment on above: Performed By: #### GABINO BENOIT #### [address] Eosinophils/100 WBC (Bld) 0.0 % Normal . [facility] Comment on above: Performed By: #### GABINO BENOIT #### [address] Erythrocyte distribution width (RBC) [Ratio] 14.5 % Normal 11.9-15.3 [facility] Comment on above: Performed By: #### GABINO BENOIT #### [address] Hematocrit (Bld) [Volume fraction] 38.0 % Normal 34.0-46.4 [facility] Comment on above: Performed By: #### GABINO BENOIT #### [address] Hemoglobin (Bld) [Mass/Vol] 12.8 g/dL Normal 11.8-15.4 [facility] Comment on above: Performed By: #### GABINO BENOIT #### [address] Lymphocytes (Bld) [#/Vol] 0.7 10*3/uL Low 1.00-4.8 [facility] Comment on above: Performed By: #### GABINO BENOIT #### [address] Lymphocytes/100 WBC (Bld) 4.4 % Normal . [facility] Comment on above: Performed By: #### GABINO BENOIT #### [address] MCH (RBC) [Entitic mass] 31.0 pg Normal 24.7-34.3 [facility] Comment on above: Performed By: #### GABINO BENOIT #### [address] MCV (RBC) [Entitic vol] 91.9 fL Normal 80-100 [facility] Comment on above: Performed By: #### GABINO BENOIT #### [address] Mean Corpuscular HGB Conc 33.8 g/dL Normal 32.0-35.0 [facility] Comment on above: Performed By: #### GABINO BENOIT #### [address] Monocytes (Bld) [#/Vol] 0.5 10*3/uL Normal 0.0-0.8 [facility] Comment on above: Performed By: #### GABINO BENOIT #### [address] Monocytes/100 WBC (Bld) 3.3 % Normal . [facility] Comment on above: Performed By: #### GABINO BENOIT #### [facility] [address] [place] [address] Neutrophils (Bld) [#/Vol] 14.2 10*3/uL High 1.8-7.7 [facility] Comment on above: Performed By: #### GABINO BENOIT #### [address] Neutrophils/100 WBC (Bld) 92.1 % Normal . [facility] Comment on above: Performed By: #### GABINO BENOIT #### [address] NRBC% 0.0 /100{WBC} Normal 0-0.5 [facility] Comment on above: Performed By: #### GABINO BENOIT #### [address] Platelet mean volume (Bld) [Entitic vol] 7.8 fL Normal 6.3-10.7 [facility] Comment on above: Performed By: #### GABINO BENOIT #### [address] Platelets (Bld) [#/Vol] 247 10*3/uL Normal 150-450 [facility] Comment on above: Performed By: #### GABINO BENOIT #### [address] RBC (Bld) [#/Vol] 4.14 10*6/uL Normal 3.60-5.00 [facility] Comment on above: Performed By: #### GABINO BENOIT #### [address] WBC (Bld) [#/Vol] 15.5 10*3/uL High 3.8-11.6 [facility] Comment on above: Performed By: #### R EDRAW NA, REDRAW K #### [address] ECG 12 lead ECGon 09-16-2022 ECG 12 lead ECG [facility] [address] [place] [address] [place] [address] Electrocardiograph Report Signed Patient: Miriam German MR#: [id number] : 1955 Acct:[id number] Age/Sex: 67 / F ADM Date: 09/10/22 Loc: Room: [address] [place] [address] Type: DIS IN Attending Dr: Arnaud Max MD Ordering Provider: Boni Lincoln DO Date of Service: 09/16/22 ECG/ECG 12 lead ECG: routine Copies to: Test Reason : Blood Pressure : / mmHG Vent. Rate : 109 BPM Atrial Rate : 109 BPM P-R Int : 122 ms QRS Dur : 078 ms QT Int : 336 ms P-R-T Axes : 034 013 019 degrees QTc Int : 452 ms Sinus tachycardia Possible Left atrial enlargement RSR' or QR pattern in V1 suggests right ventricular conduction delay Inferior infarct , age undetermined Low voltage QRS Abnormal ECG No previous ECGs available Confirmed by WILLIAM BRODERICK DO ([id number]) on 09/26/2022 12:55:22 PM Referred By: Electronically Signed By:WILLIAM BRODERICK DO Transcribed By: MUS Signed By William Broderick DO 09/26 1255 Normal [facility] Redraw Potassiumon 3 Potassium [Moles/Vol] 4.2 mmol/L Normal 3.5-5.1 [facility] Comment on above: Order Comment: FIRST SPECIMEN HEMOLYZED Result Comment: PERF ORMED BY: [place] [address] PATHOLOGIST VENEREAL DISEASE INVESTIGATOR PETER RAYO M.D. Performed By: #### A BG #### Point of Care testing , Activated partial thrombopla stin time (aPTT) in platelet poor plasma by coagulation aOrdered By: Boni Lincoln on 09-15-2022 aPTT Coag (PPP) [Time] 25.0 s 25.1-36.5 [facility] Basic Metabolic Panelon 06-2 Anion gap [Moles/Vol] Not performed Normal 6.0-15.0 [facility] Comment on above: Performed By: #### A BG #### Point of Care testing , Calcium [Mass/Vol] 9.9 mg/dL Normal 8.6-10.3 [facility] Comment on above: Performed By: #### A BG #### Point of Care testing , Chloride [Moles/Vol] 102 mmol/L Normal 98-107 [facility] Comment on above: Performed By: #### A BG #### Point of Care testing , CO2 [Moles/Vol] 27.6 mmol/L Normal 21.0-31.0 [facility] Comment on above: Performed By: #### A BG #### Point of Care testing , Creatinine [Mass/Vol] 0.47 mg/dL Low 0.60-1.20 [facility] Comment on above: Performed By: #### A BG #### Point of Care testing , Creatinine Clr Calc Pharmacy 74.57 [facility] Comment on above: Result Comment: PERF ORMED BY: [facility] [address] [place] [address] PATHOLOGIST VENEREAL DISEASE INVESTIGATOR PETER RAYO M.D. Performed By: #### A BG #### Point of Care testing , GFR/1.73 sq M.predicted MDRD (S/P/Bld) [Vol rate/Area] mL/min/{1.73_m2} [facility] Comment on above: Performed By: #### A BG #### Point of Care testing , Glucose [Mass/Vol] 107 mg/dL High 70-100 [facility] Comment on above: Result Comment: [place] Glucose Reference Range is dependent on time and content of last meal. Glucose of more than 200 mg/dL in a nonstressed, ambulatory subject supports the diagnosis of Diabetes Mellitus. ADA recommended reference range Performed By: #### A BG #### Point of Care testing , Potassium Normal 3.5-5.1 [facility] Comment on above: Result Comment: Spec imen hemolyzed, redraw requested Performed By: #### A BG #### Point of Care testing , Sodium Normal 136-145 [facility] Comment on above: Result Comment: Spec imen hemolyzed, redraw requested Performed By: #### A BG #### Point of Care testing , Urea nitrogen [Mass/Vol] 20 mg/dL Normal 7-25 [facility] Comment on above: Performed By: #### A BG #### Point of Care testing , Coagulation Profileon 2022 aPTT Coag (Bld) [Time] 25.0 s Low 25.1-36.5 [facility] Comment on above: Result Comment: PERF ORMED BY: [address] [place] [address] PATHOLOGIST VENEREAL DISEASE INVESTIGATOR PETER RAYO M.D. Performed By: #### A BG #### Point of Care testing , INR Coag (PPP) [Relative time] 0.9 {INR} Normal [facility] Comment on above: Result Comment: INR Therapeutic Range A) Pre- and Peroperative OAT started two weeks before surgery. NOT HIP SURGERY: 1.5 - 2.5 HIP SURGERY: 2 - 3 B) Primary and secondary prevention of venous THROMBOSIS: 2 - 3 C) Active venous thrombosis, pulmonary embolism and prevention of recurrent venous thrombosis: 2 - 3 D) Prevention of arterial thromboembolism including patients with mechanical heart valves: 3 - 4.5 Performed By: #### A BG #### Point of Care testing , PT Coag (PPP) [Time] 10.8 s Normal 9.0-12.9 [facility] Comment on above: Performed By: #### A BG #### Point of Care testing , Complete Blood Count Auto Di ffon 09-15-2022 Basophils (Bld) [#/Vol] 0.1 10*3/uL Normal 0.0-0.2 [facility] Comment on above: Result Comment: PERF ORMED BY: [facility] [address] [place] [address] PATHOLOGIST VENEREAL DISEASE INVESTIGATOR PETER RAYO M.D. Performed By: #### A BG #### Point of Care testing , Basophils/100 WBC (Bld) 0.6 % Normal . [facility] Comment on above: Performed By: #### A BG #### Point of Care testing , Eosinophils (Bld) [#/Vol] 0.3 10*3/uL Normal 0.0-0.45 [facility] Comment on above: Performed By: #### A BG #### Point of Care testing , Eosinophils/100 WBC (Bld) 2.2 % Normal . [facility] Comment on above: Performed By: #### A BG #### Point of Care testing , Erythrocyte distribution width (RBC) [Ratio] 14.9 % Normal 11.9-15.3 [facility] Comment on above: Performed By: #### A BG #### Point of Care testing , Hematocrit (Bld) [Volume fraction] 39.3 % Normal 34.0-46.4 [facility] Comment on above: Performed By: #### A BG #### Point of Care testing , Hemoglobin (Bld) [Mass/Vol] 13.3 g/dL Normal 11.8-15.4 [facility] Comment on above: Performed By: #### A BG #### Point of Care testing , Lymphocytes (Bld) [#/Vol] 1.3 10*3/uL Normal 1.00-4.8 [facility] Comment on above: Performed By: #### A BG #### Point of Care testing , Lymphocytes/100 WBC (Bld) 10.4 % Normal . [facility] Comment on above: Performed By: #### A BG #### Point of Care testing , MCH (RBC) [Entitic mass] 31.3 pg Normal 24.7-34.3 [facility] Comment on above: Performed By: #### A BG #### Point of Care testing , MCV (RBC) [Entitic vol] 92.2 fL Normal 80-100 [facility] Comment on above: Performed By: #### A BG #### Point of Care testing , Mean Corpuscular HGB Conc 33.9 g/dL Normal 32.0-35.0 [facility] Comment on above: Performed By: #### A BG #### Point of Care testing , Monocytes (Bld) [#/Vol] 0.4 10*3/uL Normal 0.0-0.8 [facility] Comment on above: Performed By: #### A BG #### Point of Care testing , Monocytes/100 WBC (Bld) 3.7 % Normal . [facility] Comment on above: Performed By: #### A BG #### Point of Care testing , Neutrophils (Bld) [#/Vol] 10.0 10*3/uL High 1.8-7.7 [facility] Comment on above: Performed By: #### A BG #### Point of Care testing , Neutrophils/100 WBC (Bld) 83.1 % Normal . [facility] Comment on above: Performed By: #### A BG #### Point of Care testing , NRBC% 0.3 /100{WBC} Normal 0-0.5 [facility] Comment on above: Performed By: #### A BG #### Point of Care testing , Platelet mean volume (Bld) [Entitic vol] 8.5 fL Normal 6.3-10.7 [facility] Comment on above: Performed By: #### A BG #### Point of Care testing , Platelets (Bld) [#/Vol] 276 10*3/uL Normal 150-450 [facility] Comment on above: Performed By: #### A BG #### Point of Care testing , RBC (Bld) [#/Vol] 4.26 10*6/uL Normal 3.60-5.00 [facility] Comment on above: Performed By: #### A BG #### Point of Care testing , WBC (Bld) [#/Vol] 12.0 10*3/uL High 3.8-11.6 [facility] Comment on above: Performed By: #### A BG #### Point of Care testing , Laboratory - CoagulationOrde red By: Boni Lincoln on 09-15-2022 PT Coag (PPP) [Time] 10.8 s 9.0-12.9 [facility] Platelet poor plasma interna tional normalized ratio (INR) by coagulation assay (relatOrdered By: Boni Lincoln on 09-15-2022 INR Coag (PPP) [Relative time] 0.9 {INR} [facility] Comment on above: INR Therapeutic Rang e A) Pre- and Peroperative OAT started two weeks before surgery. NOT HIP SURGERY: 1.5 - 2.5 HIP SURGERY: 2 - 3B) Primary and secondary prevention of venous THROMBOSIS: 2 - 3C) Active venous thrombosis, pulmonary embolismand prevention of recurrent venous thrombosis: 2 - 3D) Prevention of arterial thromboembolismincluding patients with mechanical heart valves: 3 - 4.5 [facility] Potassiumon 3 Potassium [Moles/Vol] 4.6 mmol/L Normal 3.5-5.1 [facility] Comment on above: Result Comment: PERF ORMED BY: [place] [address] PATHOLOGIST VENEREAL DISEASE INVESTIGATOR PETER RAYO M.D. Performed By: #### R EDRAW NA, REDRAW K #### [facility] [address] [place] [address] Redraw Sodiumon 09-15-2022 Sodium [Moles/Vol] 141 mmol/L Normal 136-145 [facility] Comment on above: Performed By: #### R EDRAW NA, REDRAW K #### [facility] [address] [place] [address] XR cervical spine 1Von 09-15 XR cervical spine 1V [facility] [address] XRay Report Signed Patient: Miriam German MR#: [id number] : 1955 Acct:[id number] Age/Sex: 67 / F ADM Date: 09/10/22 Loc: Room: [address] [place] [address] Type: ADM IN Attending Dr: Arnaud Max MD Copies to: MD Moises Hoff MD Ordering Provider: Moises Garcia MD Date of Service: 09/15/22 XR/XR cervical spine 1V: PCF Intraoperative study. Reason for exam: C1-2 PCF Findings: 2 images were obtained intraoperatively. Cumulative Air Kerma in mGy: 1.03 mGy XR/XR cervical spine 1V Impression: Intraoperative study. Impression dictated by: Tom Coates Jr., DJose Eduardo09/15/2022 12:18 PM Dictation Location: [facility]--12 Transcribed By: [facility] 09/15/221217 Dictated By: Tom Coates Jr, DO 09/15/221217 Signed By: 09/15/22 121 [facility] Basic Metabolic Panelon 08-22 Anion gap [Moles/Vol] 10.4 mmol/L Normal 6.0-15.0 [facility] Comment on above: Performed By: #### C BC, BMP #### [facility] [address] Calcium [Mass/Vol] 10.0 mg/dL Normal 8.6-10.3 [facility] Comment on above: Performed By: #### C BC, BMP #### [facility] [address] Chloride [Moles/Vol] 103 mmol/L Normal 98-107 [facility] Comment on above: Performed By: #### C BC, BMP #### [facility] [address] [place] [id number] [place] CO2 [Moles/Vol] 31.3 mmol/L High 21.0-31.0 [facility] Comment on above: Performed By: #### C BC, BMP #### [facility] [address] [place] [id number] [place] Creatinine [Mass/Vol] 0.61 mg/dL Normal 0.60-1.20 [facility] Comment on above: Performed By: #### C BC, BMP #### [facility] [address] [place] [id number] [place] Creatinine Clr Calc Pharmacy 74.65 [facility] Comment on above: Result Comment: PERF ORMED BY: [place] [address] PATHOLOGIST VENEREAL DISEASE INVESTIGATOR PETER RAYO M.D. Performed By: #### C BC, BMP #### [place] [address] [place] GFR/1.73 sq M.predicted MDRD (S/P/Bld) [Vol rate/Area] mL/min/{1.73_m2} [facility] Comment on above: Performed By: #### C BC, BMP #### [address] Glucose [Mass/Vol] 126 mg/dL High 70-100 [facility] Comment on above: Result Comment: [facility] Glucose Reference Range is dependent on time and content of last meal. Glucose of more than 200 mg/dL in a nonstressed, ambulatory subject supports the diagnosis of Diabetes Mellitus. ADA recommended reference range Performed By: #### C BC, BMP #### [address] Potassium [Moles/Vol] 4.7 mmol/L Normal 3.5-5.1 [facility] Comment on above: Performed By: #### C BC, BMP #### [place] [address] [place] Sodium [Moles/Vol] 140 mmol/L Normal 136-145 [facility] Comment on above: Performed By: #### C BC, BMP #### [place] [address] [place] Urea nitrogen [Mass/Vol] 20 mg/dL Normal 7-25 [facility] Comment on above: Performed By: #### C BC, BMP #### [address] Complete Blood Count Auto Di ffon 09-14-2022 Basophils (Bld) [#/Vol] 0.0 10*3/uL Normal 0.0-0.2 [facility] Comment on above: Result Comment: PERF ORMED BY: [place] [address] PATHOLOGIST VENEREAL DISEASE INVESTIGATOR PETER RAYO M.D. Performed By: #### C BC, BMP #### [address] Basophils/100 WBC (Bld) 0.3 % Normal . [facility] Comment on above: Performed By: #### C BC, BMP #### [address] Eosinophils (Bld) [#/Vol] 0.0 10*3/uL Normal 0.0-0.45 [facility] Comment on above: Performed By: #### C COCO, BMP #### [address] Eosinophils/100 WBC (Bld) 0.3 % Normal . [facility] Comment on above: Performed By: #### C BC, BMP #### [address] Erythrocyte distribution width (RBC) [Ratio] 14.9 % Normal 11.9-15.3 [facility] Comment on above: Performed By: #### C BC, BMP #### [address] Hematocrit (Bld) [Volume fraction] 39.2 % Normal 34.0-46.4 [facility] Comment on above: Performed By: #### C BC, BMP #### [address] Hemoglobin (Bld) [Mass/Vol] 13.0 g/dL Normal 11.8-15.4 [facility] Comment on above: Performed By: #### C BC, BMP #### [address] Lymphocytes (Bld) [#/Vol] 0.9 10*3/uL Low 1.00-4.8 [facility] Comment on above: Performed By: #### C BC, BMP #### [place] [address] [place] Lymphocytes/100 WBC (Bld) 7.8 % Normal . [facility] Comment on above: Performed By: #### C BC, BMP #### [facility] [address] MCH (RBC) [Entitic mass] 30.8 pg Normal 24.7-34.3 [facility] Comment on above: Performed By: #### C BC, BMP #### [facility] [address] MCV (RBC) [Entitic vol] 92.9 fL Normal 80-100 [facility] Comment on above: Performed By: #### C BC, BMP #### [address] Mean Corpuscular HGB Conc 33.2 g/dL Normal 32.0-35.0 [facility] Comment on above: Performed By: #### C BC, BMP #### [address] Monocytes (Bld) [#/Vol] 0.5 10*3/uL Normal 0.0-0.8 [facility] Comment on above: Performed By: #### C BC, BMP #### [place] [address] [place] Monocytes/100 WBC (Bld) 4.4 % Normal . [facility] Comment on above: Performed By: #### C BC, BMP #### [place] [address] [place] Neutrophils (Bld) [#/Vol] 9.7 10*3/uL High 1.8-7.7 [facility] Comment on above: Performed By: #### C BC, BMP #### [address] Neutrophils/100 WBC (Bld) 87.2 % Normal . [facility] Comment on above: Performed By: #### C BC, BMP #### [address] NRBC% 0.0 /100{WBC} Normal 0-0.5 [facility] Comment on above: Performed By: #### C COCO, BMP #### [facility] [address] Platelet mean volume (Bld) [Entitic vol] 7.8 fL Normal 6.3-10.7 [facility] Comment on above: Performed By: #### C COCO, BMP #### [facility] [address] Platelets (Bld) [#/Vol] 239 10*3/uL Normal 150-450 [facility] Comment on above: Performed By: #### C COCO, BMP #### [address] RBC (Bld) [#/Vol] 4.22 10*6/uL Normal 3.60-5.00 [facility] Comment on above: Performed By: #### C COCO, BMP #### [address] WBC (Bld) [#/Vol] 11.1 10*3/uL Normal 3.8-11.6 [facility] Comment on above: Performed By: #### C COCO, BMP #### [address] Basic Metabolic Panelon 08-22 Anion gap [Moles/Vol] 11.0 mmol/L Normal 6.0-15.0 [facility] Comment on above: Performed By: #### GABINO BENOIT K #### [address] Calcium [Mass/Vol] 10.3 mg/dL Normal 8.6-10.3 [facility] Comment on above: Performed By: #### GABINO BENOIT K #### [address] Chloride [Moles/Vol] 101 mmol/L Normal 98-107 [facility] Comment on above: Performed By: #### GABINO BENOIT K #### [address] CO2 [Moles/Vol] 31.4 mmol/L High 21.0-31.0 [facility] Comment on above: Performed By: #### GABINO BENOIT #### [address] Creatinine [Mass/Vol] 0.46 mg/dL Low 0.60-1.20 [facility] Comment on above: Performed By: #### GABINO BENOIT #### [address] Creatinine Clr Calc Pharmacy 74.65 [facility] Comment on above: Result Comment: PERF ORMED BY: [place] [address] PATHOLOGIST VENEREAL DISEASE INVESTIGATOR PETER RAYO M.D. Performed By: #### GABINO BENOIT #### [address] GFR/1.73 sq M.predicted MDRD (S/P/Bld) [Vol rate/Area] mL/min/{1.73_m2} [facility] Comment on above: Performed By: #### GABINO BENOIT #### [address] Glucose [Mass/Vol] 100 mg/dL Normal 70-100 [facility] Comment on above: Result Comment: [place] Glucose Reference Range is dependent on time and content of last meal. Glucose of more than 200 mg/dL in a nonstressed, ambulatory subject supports the diagnosis of Diabetes Mellitus. ADA recommended reference range Performed By: #### GABINO BENOIT #### [address] Potassium [Moles/Vol] 4.4 mmol/L Normal 3.5-5.1 [facility] Comment on above: Performed By: #### GABINO BENOIT #### [address] [place] [address] [place] Sodium [Moles/Vol] 139 mmol/L Normal 136-145 [facility] Comment on above: Performed By: #### GABINO BENOIT #### [facility] [address] [place] [address] Urea nitrogen [Mass/Vol] 15 mg/dL Normal 7-25 [facility] Comment on above: Performed By: #### GABINO BENOIT #### [address] Complete Blood Count Auto Di ffon 09-13-2022 Basophils (Bld) [#/Vol] 0.0 10*3/uL Normal 0.0-0.2 [facility] Comment on above: Result Comment: PERF ORMED BY: [place] [address] PATHOLOGIST VENEREAL DISEASE INVESTIGATOR PETER RAYO M.D. Performed By: #### GABINO BENOIT #### [address] Basophils/100 WBC (Bld) 0.4 % Normal . [facility] Comment on above: Performed By: #### GABINO BENOIT #### [address] Eosinophils (Bld) [#/Vol] 0.0 10*3/uL Normal 0.0-0.45 [facility] Comment on above: Performed By: #### GABINO BENOIT #### [facility] [address] [place] [address] Eosinophils/100 WBC (Bld) 0.3 % Normal . [facility] Comment on above: Performed By: #### GABINO BENOIT #### [address] Erythrocyte distribution width (RBC) [Ratio] 14.7 % Normal 11.9-15.3 [facility] Comment on above: Performed By: #### GABINO BENOIT #### [address] Hematocrit (Bld) [Volume fraction] 38.6 % Normal 34.0-46.4 [facility] Comment on above: Performed By: #### GABINO BENOIT #### [address] Hemoglobin (Bld) [Mass/Vol] 13.0 g/dL Normal 11.8-15.4 [facility] Comment on above: Performed By: #### GABINO BENOIT #### [address] Lymphocytes (Bld) [#/Vol] 1.2 10*3/uL Normal 1.00-4.8 [facility] Comment on above: Performed By: #### GABINO BENOIT #### [address] Lymphocytes/100 WBC (Bld) 10.8 % Normal . [facility] Comment on above: Performed By: #### GABINO BENOIT #### [address] MCH (RBC) [Entitic mass] 31.2 pg Normal 24.7-34.3 [facility] Comment on above: Performed By: #### GABINO BENOIT #### [address] MCV (RBC) [Entitic vol] 92.6 fL Normal 80-100 [facility] Comment on above: Performed By: #### GABINO BENOIT #### [address] Mean Corpuscular HGB Conc 33.7 g/dL Normal 32.0-35.0 [facility] Comment on above: Performed By: #### GABINO BENOIT #### [place] [phone] [place] Monocytes (Bld) [#/Vol] 0.6 10*3/uL Normal 0.0-0.8 [facility] Comment on above: Performed By: #### GABINO BENOIT #### [facility] [address] [place] [address] Monocytes/100 WBC (Bld) 5.6 % Normal . [facility] Comment on above: Performed By: #### GABINO BENOIT #### [facility] [address] [place] [address] Neutrophils (Bld) [#/Vol] 9.2 10*3/uL High 1.8-7.7 [facility] Comment on above: Performed By: #### GABINO BENOIT #### [facility] [address] [place] [address] Neutrophils/100 WBC (Bld) 82.9 % Normal . [facility] Comment on above: Performed By: #### GABINO BENOIT #### [facility] [address] [place] [address] NRBC% 0.1 /100{WBC} Normal 0-0.5 [facility] Comment on above: Performed By: #### GABINO BENOIT #### [facility] [address] [place] [address] Platelet mean volume (Bld) [Entitic vol] 7.5 fL Normal 6.3-10.7 [facility] Comment on above: Performed By: #### GABINO BENOIT #### [facility] [address] [place] [address] [place] Platelets (Bld) [#/Vol] 234 10*3/uL Normal 150-450 [facility] Comment on above: Performed By: #### GABINO BENOIT #### [facility] [address] [place] [address] [place] RBC (Bld) [#/Vol] 4.18 10*6/uL Normal 3.60-5.00 [facility] Comment on above: Performed By: #### R GABINO EPPERSON #### [address] WBC (Bld) [#/Vol] 11.1 10*3/uL Normal 3.8-11.6 [facility] Comment on above: Performed By: #### R GABINO EPPERSON #### [address] ABO/Rh Retypeon 09-12-2022 ABO/RH Recheck Result Positive Normal [facility] Comment on above: Result Comment: PERF ORMED BY: [place] [address] PATHOLOGIST VENEREAL DISEASE INVESTIGATOR PETER RAYO M.D. Arterial Blood Gason 023 ABG Base Excess 3.6 mmol/L High -3.0-3.0 [facility] Comment on above: Performed By: #### A BG #### Point of Care testing , ABG Frac Inspired O2 32 % Normal [facility] Comment on above: Performed By: #### A BG #### Point of Care testing , ABG Oxygen Content 8.4 mmol/L Normal 6.6-9.7 [facility] Comment on above: Performed By: #### A BG #### Point of Care testing , ABG Oxygen Saturation 98.5 % Normal 95.0-100.0 [facility] Comment on above: Performed By: #### A BG #### Point of Care testing , ABG PCO2 50.6 mm[Hg] Off scale high 35.0-45.0 [facility] Comment on above: Performed By: #### A BG #### Point of Care testing , ABG PH 7.39 Normal 7.35-7.45 [facility] Comment on above: Performed By: #### A BG #### Point of Care testing , ABG PO2 129.8 mm[Hg] Off scale high 80.0-100.0 [facility] Comment on above: Performed By: #### A BG #### Point of Care testing , CO2 [Moles/Vol] 31.2 mmol/L High 23.0-27.0 [facility] Comment on above: Performed By: #### A BG #### Point of Care testing , HCO3 (Bld) [Moles/Vol] 29.6 mmol/L High 23.0-29.0 [facility] Comment on above: Performed By: #### A BG #### Point of Care testing , Oxygen Device Nasal Cannula Normal [facility] Comment on above: Performed By: #### A BG #### Point of Care testing , Respiratory Critical Normal [facility] Comment on above: Result Comment: Crit ical Value called on: 09/12/2022 at 05:34 PERFORMED BY: [place] [address] PATHOLOGIST VENEREAL DISEASE INVESTIGATOR PETER RAYO M.D. Performed By: #### A BG #### Point of Care testing , VBG Draw Site Left Radial Normal [facility] Comment on above: Performed By: #### A BG #### Point of Care testing , Basic Metabolic Panelon 08-22 Anion gap [Moles/Vol] 9.7 mmol/L Normal 6.0-15.0 [facility] Comment on above: Performed By: #### B MP, CBC #### [facility] [address] [place] [address] [place] Calcium [Mass/Vol] 10.0 mg/dL Normal 8.6-10.3 [facility] Comment on above: Performed By: #### B MP, CBC #### [facility] [address] [place] [address] [place] Chloride [Moles/Vol] 101 mmol/L Normal 98-107 [facility] Comment on above: Performed By: #### B MP, CBC #### [facility] [address] [place] [address] [place] CO2 [Moles/Vol] 33.2 mmol/L High 21.0-31.0 [facility] Comment on above: Performed By: #### B MP, CBC #### [facility] [address] [place] [address] [place] Creatinine [Mass/Vol] 0.46 mg/dL Low 0.60-1.20 [facility] Comment on above: Performed By: #### B MP, CBC #### [facility] [address] [place] [address] [place] Creatinine Clr Calc Pharmacy 72.70 [facility] Comment on above: Result Comment: PERF ORMED BY: [facility] [address] [place] [address] PATHOLOGIST VENEREAL DISEASE INVESTIGATOR PETER RAYO M.D. Performed By: #### B MP, CBC #### [place] [address] [place] GFR/1.73 sq M.predicted MDRD (S/P/Bld) [Vol rate/Area] mL/min/{1.73_m2} [facility] Comment on above: Performed By: #### B MP, CBC #### [place] [address] [place] Glucose [Mass/Vol] 119 mg/dL High 70-100 [facility] Comment on above: Result Comment: [facility] Glucose Reference Range is dependent on time and content of last meal. Glucose of more than 200 mg/dL in a nonstressed, ambulatory subject supports the diagnosis of Diabetes Mellitus. ADA recommended reference range Performed By: #### B MP, CBC #### [facility] [address] [place] [address] [place] Potassium [Moles/Vol] 4.9 mmol/L Normal 3.5-5.1 [facility] Comment on above: Performed By: #### B MP, CBC #### [facility] [address] [place] [address] [place] Sodium [Moles/Vol] 139 mmol/L Normal 136-145 [facility] Comment on above: Performed By: #### B MP, CBC #### [place] [address] [place] Urea nitrogen [Mass/Vol] 17 mg/dL Normal 7-25 [facility] Comment on above: Performed By: #### B MP, CBC #### [address] Complete Blood Count Auto Di ffon 09-12-2022 Basophils (Bld) [#/Vol] 0.1 10*3/uL Normal 0.0-0.2 [facility] Comment on above: Result Comment: PERF ORMED BY: [place] [address] PATHOLOGIST VENEREAL DISEASE INVESTIGATOR PEETR RAYO M.D. Performed By: #### B MP, CBC #### [address] Basophils/100 WBC (Bld) 0.5 % Normal . [facility] Comment on above: Performed By: #### B MP, CBC #### [address] Eosinophils (Bld) [#/Vol] 0.0 10*3/uL Normal 0.0-0.45 [facility] Comment on above: Performed By: #### B MP, CBC #### [address] Eosinophils/100 WBC (Bld) 0.2 % Normal . [facility] Comment on above: Performed By: #### B MP, CBC #### [address] Erythrocyte distribution width (RBC) [Ratio] 14.5 % Normal 11.9-15.3 [facility] Comment on above: Performed By: #### B MP, CBC #### [address] Hematocrit (Bld) [Volume fraction] 39.2 % Normal 34.0-46.4 [facility] Comment on above: Performed By: #### B MP, CBC #### [address] Hemoglobin (Bld) [Mass/Vol] 13.1 g/dL Normal 11.8-15.4 [facility] Comment on above: Performed By: #### B MP, CBC #### [facility] [address] [place] [address] [place] Lymphocytes (Bld) [#/Vol] 1.0 10*3/uL Normal 1.00-4.8 [facility] Comment on above: Performed By: #### B MP, CBC #### [facility] [address] Lymphocytes/100 WBC (Bld) 8.0 % Normal . [facility] Comment on above: Performed By: #### B MP, CBC #### [facility] [address] MCH (RBC) [Entitic mass] 30.8 pg Normal 24.7-34.3 [facility] Comment on above: Performed By: #### B MP, CBC #### [facility] [address] MCV (RBC) [Entitic vol] 92.3 fL Normal 80-100 [facility] Comment on above: Performed By: #### B MP, CBC #### [facility] [address] Mean Corpuscular HGB Conc 33.3 g/dL Normal 32.0-35.0 [facility] Comment on above: Performed By: #### B MP, CBC #### [facility] [address] [place] [address] [place] Monocytes (Bld) [#/Vol] 0.6 10*3/uL Normal 0.0-0.8 [facility] Comment on above: Performed By: #### B MP, CBC #### [facility] [address] [place] [address] [place] Monocytes/100 WBC (Bld) 4.8 % Normal . [facility] Comment on above: Performed By: #### B MP, CBC #### [facility] [address] Neutrophils (Bld) [#/Vol] 10.3 10*3/uL High 1.8-7.7 [facility] Comment on above: Performed By: #### B MP, CBC #### [address] Neutrophils/100 WBC (Bld) 86.5 % Normal . [facility] Comment on above: Performed By: #### B MP, CBC #### [address] NRBC% 0.0 /100{WBC} Normal 0-0.5 [facility] Comment on above: Performed By: #### B MP, CBC #### [address] Platelet mean volume (Bld) [Entitic vol] 7.5 fL Normal 6.3-10.7 [facility] Comment on above: Performed By: #### B MP, CBC #### [address] Platelets (Bld) [#/Vol] 223 10*3/uL Normal 150-450 [facility] Comment on above: Performed By: #### B MP, CBC #### [address] RBC (Bld) [#/Vol] 4.25 10*6/uL Normal 3.60-5.00 [facility] Comment on above: Performed By: #### B MP, CBC #### [address] WBC (Bld) [#/Vol] 11.9 10*3/uL High 3.8-11.6 [facility] Comment on above: Performed By: #### B MP, CBC #### [address] Laboratory - Chemistry and C hemistry - challengeOrdered By: Boni Lincoln on 09-12-2022 CO2 [Moles/Vol] 31.2 mmol/L 23.0-27.0 [facility] HCO3 (Bld) [Moles/Vol] 29.6 mmol/L 23.0-29.0 [facility] No Panel InformationOrdered By: Boni Lincoln on 09-12-2022 Arterial Blood Base Excess 3.6 mmol/L -3.0-3.0 [facility] Arterial Blood Oxygen Content 8.4 mmol/L 6.6-9.7 [facility] Arterial Blood Oxygen Saturation 98.5 % 95.0-100.0 [facility] Arterial Blood Partial Pressure CO2 50.6 mm[Hg] 35.0-45.0 [facility] Arterial Blood Partial Pressure O2 129.8 mm[Hg] 80.0-100.0 [facility] Arterial Blood pH 7.39 7.35-7.45 [facility] Blood Gas Critical Value See comment [facility] Comment on above: Critical Value bolivar d on: 09/12/2022 at 05:34 Blood Gas Sample Site Left radial [facility] FiO2 32 % [facility] Oxygen Delivery Device Nasal cannula [facility] Type and Screenon 09-12-2022 ABO and Rh group Nom (Bld) Blood group A Rh(D) positive Normal [facility] Comment on above: Result Comment: PERF ORMED BY: [facility] [address] [place] [address] PATHOLOGIST VENEREAL DISEASE INVESTIGATOR PETER RAYO M.D. Basic Metabolic Panelon 08-22 Anion gap [Moles/Vol] 9.2 mmol/L Normal 6.0-15.0 [facility] Comment on above: Performed By: #### A BG #### Point of Care testing , Calcium [Mass/Vol] 9.9 mg/dL Normal 8.6-10.3 [facility] Comment on above: Performed By: #### A BG #### Point of Care testing , Chloride [Moles/Vol] 103 mmol/L Normal 98-107 [facility] Comment on above: Performed By: #### A BG #### Point of Care testing , CO2 [Moles/Vol] 31.9 mmol/L High 21.0-31.0 [facility] Comment on above: Performed By: #### A BG #### Point of Care testing , Creatinine [Mass/Vol] 0.51 mg/dL Low 0.60-1.20 [facility] Comment on above: Performed By: #### A BG #### Point of Care testing , Creatinine Clr Calc Pharmacy 72.70 [facility] Comment on above: Result Comment: PERF ORMED BY: [facility] [address] [place] [address] PATHOLOGIST VENEREAL DISEASE INVESTIGATOR PETER RAYO M.D. Performed By: #### A BG #### Point of Care testing , GFR/1.73 sq M.predicted MDRD (S/P/Bld) [Vol rate/Area] mL/min/{1.73_m2} [facility] Comment on above: Performed By: #### A BG #### Point of Care testing , Glucose [Mass/Vol] 116 mg/dL High 70-100 [facility] Comment on above: Result Comment: [place] Glucose Reference Range is dependent on time and content of last meal. Glucose of more than 200 mg/dL in a nonstressed, ambulatory subject supports the diagnosis of Diabetes Mellitus. ADA recommended reference range Performed By: #### A BG #### Point of Care testing , Potassium [Moles/Vol] 4.1 mmol/L Normal 3.5-5.1 [facility] Comment on above: Performed By: #### A BG #### Point of Care testing , Sodium [Moles/Vol] 140 mmol/L Normal 136-145 [facility] Comment on above: Performed By: #### A BG #### Point of Care testing , Urea nitrogen [Mass/Vol] 18 mg/dL Normal 7-25 [facility] Comment on above: Performed By: #### A BG #### Point of Care testing , Complete Blood Count Auto Di ffon 09-11-2022 Basophils (Bld) [#/Vol] 0.0 10*3/uL Normal 0.0-0.2 [facility] Comment on above: Result Comment: PERF ORMED BY: [facility] [address] [place] [address] PATHOLOGIST VENEREAL DISEASE INVESTIGATOR PETER RAYO M.D. Performed By: #### A BG #### Point of Care testing , Basophils/100 WBC (Bld) 0.5 % Normal . [facility] Comment on above: Performed By: #### A BG #### Point of Care testing , Eosinophils (Bld) [#/Vol] 0.0 10*3/uL Normal 0.0-0.45 [facility] Comment on above: Performed By: #### A BG #### Point of Care testing , Eosinophils/100 WBC (Bld) 0.0 % Normal . [facility] Comment on above: Performed By: #### A BG #### Point of Care testing , Erythrocyte distribution width (RBC) [Ratio] 14.5 % Normal 11.9-15.3 [facility] Comment on above: Performed By: #### A BG #### Point of Care testing , Hematocrit (Bld) [Volume fraction] 37.6 % Normal 34.0-46.4 [facility] Comment on above: Performed By: #### A BG #### Point of Care testing , Hemoglobin (Bld) [Mass/Vol] 12.7 g/dL Normal 11.8-15.4 [facility] Comment on above: Performed By: #### A BG #### Point of Care testing , Lymphocytes (Bld) [#/Vol] 0.8 10*3/uL Low 1.00-4.8 [facility] Comment on above: Performed By: #### A BG #### Point of Care testing , Lymphocytes/100 WBC (Bld) 7.6 % Normal . [facility] Comment on above: Performed By: #### A BG #### Point of Care testing , MCH (RBC) [Entitic mass] 31.3 pg Normal 24.7-34.3 [facility] Comment on above: Performed By: #### A BG #### Point of Care testing , MCV (RBC) [Entitic vol] 92.5 fL Normal 80-100 [facility] Comment on above: Performed By: #### A BG #### Point of Care testing , Mean Corpuscular HGB Conc 33.9 g/dL Normal 32.0-35.0 [facility] Comment on above: Performed By: #### A BG #### Point of Care testing , Monocytes (Bld) [#/Vol] 0.6 10*3/uL Normal 0.0-0.8 [facility] Comment on above: Performed By: #### A BG #### Point of Care testing , Monocytes/100 WBC (Bld) 5.7 % Normal . [facility] Comment on above: Performed By: #### A BG #### Point of Care testing , Neutrophils (Bld) [#/Vol] 9.4 10*3/uL High 1.8-7.7 [facility] Comment on above: Performed By: #### A BG #### Point of Care testing , Neutrophils/100 WBC (Bld) 86.2 % Normal . [facility] Comment on above: Performed By: #### A BG #### Point of Care testing , NRBC% 0.1 /100{WBC} Normal 0-0.5 [facility] Comment on above: Performed By: #### A BG #### Point of Care testing , Platelet mean volume (Bld) [Entitic vol] 7.5 fL Normal 6.3-10.7 [facility] Comment on above: Performed By: #### A BG #### Point of Care testing , Platelets (Bld) [#/Vol] 221 10*3/uL Normal 150-450 [facility] Comment on above: Performed By: #### A BG #### Point of Care testing , RBC (Bld) [#/Vol] 4.07 10*6/uL Normal 3.60-5.00 [facility] Comment on above: Performed By: #### A BG #### Point of Care testing , WBC (Bld) [#/Vol] 10.9 10*3/uL Normal 3.8-11.6 [facility] Comment on above: Performed By: #### A BG #### Point of Care testing , ECG 12 lead ECGon 09-11-2022 ECG 12 [place] [address] Electrocardiograph Report Signed Patient: Miriam German MR#: [id number] : 1955 Acct:[id number] Age/Sex: 67 / F ADM Date: 09/10/22 Loc: Room: [address] [place] [address] Type: DIS IN Attending Dr: Arnaud Max MD Ordering Provider: Arnadu Max MD Date of Service: 09/11/22 ECG/ECG 12 lead ECG: rhythm check Copies to: Test Reason : Blood Pressure : / mmHG Vent. Rate : 088 BPM Atrial Rate : 088 BPM P-R Int : 118 ms QRS Dur : 078 ms QT Int : 370 ms P-R-T Axes : 051 034 044 degrees QTc Int : 447 ms Normal sinus rhythm RSR' or QR pattern in V1 suggests right ventricular conduction delay Borderline ECG No previous ECGs available Confirmed by MACIEL BUSTILLOS [facility], ZEHRA ([id number]) on 09/17/2022 4:54:24 PM Referred By: Electronically Signed By:ZEHRA ST MD [facility] Transcribed By: MUS Signed By Zehra St MD, [facility] 09/17/22 1654 [facility] MR cervical spine wo conon 0 09-11-2022 MR cervical spine wo con [facility] Main [place] [id number] MRI Report Signed Patient: Miriam German MR#: [id number] : 1955 Acct:[id number] Age/Sex: 67 / F ADM Date: 09/10/22 Loc: Room: [address] [place] [address] Type: ADM IN Attending Dr: Boni Lincoln DO Copies to: MD Boni Cardoso DO Ordering Provider: Moiess Garcia MD Date of Service: 09/11/22 MR/MR cervical spine wo con: Cervical stenosis MR cervical spine wo con 09/11/2022 8:41 AM SIGNS AND SYMPTOMS: Recent odontoid fracture, worsening weakness and recent falls PROTOCOL: Multiplanar multisequence MR images of the cervical spine were obtained without IV contrast COMPARISON: 09/09/2022 FINDINGS: The bones of the cervical spine are in anatomic alignment. There is preservation of vertebral body heights. There is severe disc height loss at C4-C5, C5-C6, and C6-C7. There is increasing T2 and STIR hyperintense signal posterior to the odontoid fracture within the upper cervical cord suspicious for a cord contusion or cord compression. The odontoid fracture is redemonstrated with slight interval increase in dorsal displacement of the C2 vertebral body in respect to C1 and the odontoid fragment by approximately 3 to 4 mm contribute to increasing spinal canal narrowing at the C1-C2 junction. There is redemonstration of marrow edema in the odontoid fragment. There is a large joint effusion between the right lateral masses of C1 and C2. No epidural or paraspinous fluid collection is appreciated. The visualized paraspinous soft tissues are within normal limits. The prevertebral soft tissues are within normal limits. There is partial visualization of small bilateral mastoid effusions. At C2-C3: There is a normal disc, central canal, and neural foramen. At C3-C4: There is a broad-based disc bulge without joint spurring and facet hypertrophy contributing to mild to moderate bilateral neural foraminal narrowing with mild spinal canal narrowing. At C4-C5: There is a broad-based disc bulge with facet and uncovertebral joint degenerative change. There is severe left and moderate to severe right neural foraminal narrowing. There is moderate to severe spinal canal stenosis. At C5-C6: There is a broad-based disc bulge with facet degenerative change. There is severe left and moderate right neural foraminal narrowing with moderate spinal canal narrowing. At C6-C7: There is a broad-based disc bulge with facet degenerative change contributing to mild bilateral neural foraminal narrowing and mild spinal canal narrowing. At C7-T1: Left-sided facet hypertrophy is present without significant stenosis. MR/MR cervical spine wo con IMPRESSION: The odontoid fracture is redemonstrated with slight interval increase in dorsal displacement of the C2 vertebral body in respect to C1 and the odontoid fragment by approximately 3 to 4 mm contribute to increasing spinal canal narrowing at the C1-C2 junction. There is increasing T2 and STIR hyperintense signal posterior to the odontoid fracture within the upper cervical cord suspicious for a cord contusion or cord compression. Degenerative changes noted throughout cervical spine similar to that seen on the prior exam. Impression dictated by: Hector Hawkins M.D.09/11/2022 11:09 AM Dictation Location: RADIO-PC-12 Transcribed By: BRUNA 09/11/22 1109 Dictated By: Hector Hawkins II, MD 09/11/22 1055 Signed By: 09/11/22 1109 [facility] XR chest 1V portableon 09-11 XR chest 1V portable [facility] Main [place] [address] [place] [address] XRay Report Signed Patient: Miriam German MR#: [id number] : 1955 Acct:[id number] Age/Sex: 67 / F ADM Date: 09/10/22 Loc: Room: [address] [place] [address] Type: ADM IN Attending Dr: Boni Lincoln DO Copies to: Julia Smyth APRN, ACNP-BC Boni Lincoln DO Ordering Provider: Julia Smyth APRN, [employer] Date of Service: 09/11/22 XR/XR chest 1V portable: pre-op ,hypoxia SINGLE VIEW CHEST CLINICAL HISTORY: Preop for cervical fracture. Hypoxia COMPARISON: Chest 09/05/2022 FINDINGS: Cardiomegaly with vascular congestion. Left lung airspace disease and likely underlying pleural effusion similar to the prior study. No pneumothorax or free air. XR/XR chest 1V portable IMPRESSION: NO SIGNIFICANT CHANGE IN CHEST FINDINGS. Impression dictated by: Tom Coates Jr., D.ONick09/11/2022 4:06 PM Dictation Location: [facility]--15 Transcribed By: BRUNA 09/11/22 1606 Dictated By: Tom Coates Jr, DO 09/11/22 1602 Signed By: 09/11/22 1606 [facility] Progress Noteson 09-06-2022 Paraprofessional Aide Authentication Interface Message Text EMERGENCY TRIAGE, TREAT AND TRANSPORT (ET3) DOCUMENTATION OF TELEHEALTH VISIT Date / Time: 09/05/2022 / 1515 Name: Miriam German : 1955 SSN: [id number] EMS Agency: [facility] [x] Verbal consent obtained [] Implied consent - patient with potential emergency medical condition requiring assessment of capacity to refuse treatment and/or transport VITAL SIGNS: see flowsheet documentation Reason for Telehealth Visit: Chief Complaint Patient presents with Fall History of Present Illness: 67 yo female with weakness and fall unable to get up No LOC. No AC. No ETOH. Denies pain or injury. Pt sts she was seen 3 days ago in ED, dx w/ PNA and started on antibiotics. Reportedly she is on 4L NC all the time but it is not clear why that is. Additional pertinent PMHx, SocHx, FamHx: PMH morbid obesity, HTN, recent PNA diagnosis Meds Tramadol, omnicef, prednisone, levoquin, amlodipine Social lives alone Review of Systems: Denies the following: CP, abd pain, NVD Exam: General: Awake, no distress ENT: normocephalic, atraumatic Pulmonary: No respiratory distress Cardiovascular: Well perfused Neurologic: Oriented to person, place, time and events. Moving all extremities equally. Psychiatric: Appropriate. Good insight and judgement. Medical Decision Makin yo female was at home when she had general weakness and slid to the floor. No AC, LOC or ETOH. Denies injury. EMS assisted pt up and she is ambulating w/ her walker at baseline. She has declined EMS transport. I expressed concern for her recent PNA dx, oxygen requirement, generalized weakness and her report that her symptoms are not improving despite taking antibiotics. I am concerned she could get worse and is not in a safe place to care for herself alone. Pt expressed concern that I could not guarantee that the hospital would admit her and she has not ride to get back home if the ED doesn't admit patient. Pt expressed understanding of my concerns. She has medical decision making capacity to refuse transport after informed discussion. Disposition Supported by Telehealth Assessment: ET3 transport decisions: Refused transport EMS Disposition Reported: Same ET3 Encounter Completed by: Mumtaz Jean Baptiste, DO Normal [facility] Krista Fowler 08-10-2022 Krista BLAND ----- Final No anaerobic growth after 72 hrs. Normal [facility] Comment on above: Performed By: #### A NAC #### [place] [address] .BF Cell Cnt RBC Mon 023 Fluid RBC Count [id number] /mcL Normal [facility] Comment on above: Performed By: #### C [id number] #### [place] [address] .BF Cell Cnt WBC Mon 023 Fluid WBC Count 1025 /mcL Normal [facility] Comment on above: Performed By: #### . Body Fluid Cell Count WBC Manual #### [place] [address] .BF Diffon 08-07-2022 Fluid Mononuclear Cells 85 % Normal [facility] Comment on above: Performed By: #### . Body Fluid Differential #### [place] [address] Fluid Other Cells 4 % Normal [facility] Comment on above: Performed By: #### . Body Fluid Differential #### [place] [address] Fluid Polynuclear Cells 11 % Normal [facility] Comment on above: Performed By: #### . Body Fluid Differential #### [place] [address] BF Cell Counton 08-07-2022 Body Fluid Cell Cnt Type Misc Fld Normal [facility] Comment on above: Order Comment: RIGHT Shoulder Joint Fluid Performed By: #### F LCC #### [place] [address] C Sterile BFon 08-07-2022 C Sterile BF RIGHT Shoulder Joint Fluid Final No growth at 48 hours. Gram Stain Few White Blood Cells No organisms seen. Normal [facility] Comment on above: Performed By: #### C SBF #### [facility] (DEFAULT) [address] [place] [address] [facility] [address] [place] [address] Crystalson 08-07-2022 Fluid For Crystal Analysis NoCrystals Seen Normal NoCrystals Seen [facility] Comment on above: Performed By: #### F LCA #### [facility] [address] [place] [address] MRI Shoulder w/o Contrast Ri [facility] 06-19-2022 MRI Shoulder w/o Contrast Right MRI SHOULDER WITHOUT CONTRAST CLINICAL HISTORY: Right shoulder pain. COMPARISON: None. CORRELATION: None. TECHNIQUE: Proton-density fat-saturated sequence of the right shoulder was performed in the axial plane. Proton density, T1 and T2 fat-saturated sequences of the right shoulder was performed in the coronal plane. T2, STIR and proton density sequences of the right shoulder was performed in the sagittal plane. No contrast contrast was administered. CONTRAST: None. FINDINGS: There is poor signal to noise ratio due to body habitus. There is a large chronic appearing full-thickness rotator cuff tear involving the entire supraspinatus and infraspinatus tendons with likely extension of tear to involve the superior fibers of the subscapularis. The supraspinatus and infraspinatus stumps are retracted to the level of the glenoid, measuring 4.3 cm. The majority of the subscapularis tendons are intact, and demonstrate marked intermediate signal intensity and irregularity, reflecting tendinosis. The teres minor tendon appears intact. There is severe volume loss of the supraspinatus and infraspinous musculature, with fatty replacement. There is mild fatty infiltration of the subscapularis and teres minor musculature, which appears to maintained muscle volume. There are few intact intracapsular fibers of the long head of biceps tendon. There is fluid within the biceps tendon sheath. There is chronic-appearing bony deformity with flattening of the humeral head and glenoid, with some sclerosis and subchondral cystic change present. There is complete cartilage loss about the glenohumeral joint. There is a large glenohumeral joint effusion decompressing into the subcoracoid and axillary recess. There is a moderately degenerative appearance of the acromioclavicular joint. No mass lesion is seen within the spinal glenoid notch. The visualized neurovascular structures are unremarkable. IMPRESSION: End-stage rotator cuff arthropathy. Large chronic appearing full-thickness rotator cuff tear involving the entire supraspinatus and infraspinatus tendons, with likely extension of tear to involve the superior fibers of the subscapularis. The stumps are retracted to the level of the glenoid, which measure proximal 4.3 cm. Marked tendinosis of the remaining intact subscapularis. Severe volume loss of the supraspinatus and infraspinatus musculature, with fatty replacement. Mild fatty infiltration with maintenance of the volume involving the subscapularis and teres minor musculature. Biceps tenosynovitis, with a few intact intracapsular fibers. Large glenohumeral joint effusion. Moderate acromioclavicular osteoarthrosis. Final Dictated by: Yamilet Hodges DO Dictated DT/TM: 06/19/2022 8:13 am Signed by: Yamilet Hodges DO Signed (Electronic Signature): 06/19/2022 8:24 am (If Report Is Signed, Electronically Signed in Other Vendor System) Normal [facility] CT LUNG CANCER SCREENINGon 0 05-13-2022 CT LUNG CANCER SCREENING EXAMINATION: CT LUNG CANCER SCREENING HISTORY: Nicotine dependence in remission COMPARISON: CTA chest 11/09/2021 TECHNIQUE: Axial, Coronal, and Sagittal images were created without the administration of IV contrast material. Dose reduction techniques were achieved by using automated exposure control and/or adjustment of mA and/or kV according to patient size and/or use of iterative reconstruction technique. FINDINGS: LUNGS: No suspicious nodules. Mild emphysematous changes, bronchiectasis, and peripheral fibrosis. No convincing infectious infiltrates. PLEURA: No mass, effusion, or pneumothorax. VASCULATURE: No abnormality. MARY: No mass or pathologic adenopathy. MEDIASTINUM: No mass or pathologic adenopathy. CARDIAC: No enlargement, pericardial thickening, or significant calcification. AORTA: No aneurysm or dissection. CHEST WALL: No mass or axillary adenopathy BONES: No bone lesion or fracture. LIMITED ABDOMEN: No suspicious findings. Limited images of the upper abdomen. OTHER: Negative. IMPRESSION: 1. Lung-RADS Category 1 Negative. No nodules and definitely benign nodules. Continue annual screening with LDCT in 12 months. 2. Chronic interstitial changes, fibrosis, bronchiectasis. 3. Clearing of previously seen infiltrates. Electronically authenticated by: ZAN HARRIS Date: 2022-05-13 09:42 Normal [facility] RHEUMATOID FACTORon 05-11-19 23 RA Latex Turbid. >650.0 Critically high <14.0 [facility] Comment on above: Result Comment: Resu lts confirmed on dilution. Performed By: #### P OCGLUC #### [facility] [address] [place] [address] Dr. Laila Castle Basic Metabolic Panelon 04-23 Basic Metabolic Panel [facility] [employer] Other CBC AUTO DIFFon 05-10-2022 BASO # 0.0 103/ul Normal 0.0-0.1 [facility] Comment on above: Performed By: #### C MP #### [facility] [address] [place] [address] Dr. Laila Castle Basophils/100 WBC (Bld) 0.3 % Normal 0.2-2.0 [facility] Comment on above: Performed By: #### C MP #### [facility] [address] [place] [address] Dr. Laila Castle EO # 0.1 103/ul Normal 0.0-0.7 [facility] Comment on above: Performed By: #### C MP #### [facility] [address] [place] [address] Dr. Laila Castle Eosinophils/100 WBC (Bld) 0.5 % Critically low 0.9-7.0 [facility] Comment on above: Performed By: #### C MP #### [facility] [address] [place] [address] Dr. Laila Castle Erythrocyte distribution width (RBC) [Ratio] 14.1 % Normal 11.0-15.0 [facility] Comment on above: Performed By: #### C MP #### [facility] [address] [place] [address] Dr. Laila Castle Hematocrit (Bld) [Volume fraction] 40.9 % Normal 36.0-48.0 [facility] Comment on above: Performed By: #### C MP #### [facility] [address] [place] [address] Dr. Laila Castle Hemoglobin (Bld) [Mass/Vol] 12.8 g/dL Normal 12.0-16.0 [facility] Comment on above: Performed By: #### C MP #### [facility] [address] [place] [address] Dr. Laila Castle IG # 0.11 10e3/ul Critically high 0.00-0.03 [facility] Comment on above: Performed By: #### C MP #### [facility] [address] [place] [address] Dr. Laila Castle IG % 1.2 % Critically high 0.0-0.5 [facility] Comment on above: Performed By: #### C MP #### [facility] [address] [place] [address] Dr. Laila Castle LYMPH # 1.0 103/ul Critically low 1.2-3.8 [facility] Comment on above: Performed By: #### C MP #### [facility] [address] [place] [address] Dr. Laila Castle Lymphocytes/100 WBC (Bld) 10.0 % Critically low 20.5-60.0 [facility] Comment on above: Performed By: #### C MP #### [facility] [address] [place] [address] Dr. Laila Castle MANUAL DIFF REQ NO Normal [facility] Comment on above: Performed By: #### C MP #### [facility] [address] [place] [address] Dr. Laila Castle MCH (RBC) [Entitic mass] 30.3 pg Normal 26.7-34.0 [facility] Comment on above: Performed By: #### C MP #### [facility] [address] [address] [address] Laila Castle MCHC (RBC) [Mass/Vol] 31.3 g/dL Normal 29.9-35.2 [facility] Comment on above: Performed By: #### C MP #### [facility] [address] [address] [address] Laila Castle MCV (RBC) [Entitic vol] 96.7 fL Normal 81.0-99.0 [facility] Comment on above: Performed By: #### C MP #### [facility] [address] [place] [address] Dr. Laila Castle MONO # 0.6 103/ul Normal 0.3-0.8 [facility] Comment on above: Performed By: #### C MP #### [facility] [address] [address] [address] Laila Castle Monocytes/100 WBC (Bld) 6.5 % Normal 1.7-12.0 [facility] Comment on above: Performed By: #### C MP #### [facility] [address] [place] [address] Dr. Laila Castle NEUT # 7.8 103/ul Critically high 1.4-6.5 [facility] Comment on above: Performed By: #### C MP #### [facility] [address] [address] [address] Laila Castle Neutrophils/100 WBC (Bld) 81.5 % Critically high 43.0-75.0 [facility] Comment on above: Performed By: #### C MP #### [facility] [address] [address] [address] Laila Castle Platelet mean volume (Bld) [Entitic vol] 9.5 fL Normal 9.5-13.5 [facility] Comment on above: Performed By: #### C MP #### [facility] [address] [place] [address] Dr. Laila Castle PLT 217 103/ul Normal 150-450 [facility] Comment on above: Performed By: #### C MP #### [facility] [address] [place] [address] Dr. Laila Castle RBC 4.23 106/ul Normal 4.20-5.40 [facility] Comment on above: Performed By: #### C MP #### [facility] [address] [place] [address] Dr. Laila Castle WBC 9.6 103/ul Normal 4.0-11.0 [facility] Comment on above: Performed By: #### C MP #### [facility] [address] [place] [address] Dr. Laila Castle Complete Blood Count and Dif mandeep 05-10-2022 Anisocytosis Ql (Bld) [facility] [employer] Other Basophilic stippling LM Ql (d) [facility] [employer] Other RBC morphology finding Nom (d) [facility] [employer] Other PROF CHEM 8 (BAS METB)on Anion gap [Moles/Vol] 11.2 mmol/L Normal [facility] Comment on above: Performed By: #### C MP #### [facility] [address] [place] [address] Dr. Laila Castle Calcium [Mass/Vol] 10.3 mg/dL Critically high 8.5-10.[address] [facility] Comment on above: Performed By: #### C MP #### [facility] [address] [place] [address] Dr. Laila Castle Chloride [Moles/Vol] 106 mmol/L Normal 98-107 [facility] Comment on above: Performed By: #### C MP #### [facility] [address] [place] [address] Dr. Laila Castle CO2 [Moles/Vol] 31.2 mmol/L Normal 21.0-32.0 [facility] Comment on above: Performed By: #### C MP #### [facility] [address] [address] [address] Laila Castle Creatinine [Mass/Vol] 0.59 mg/dL Normal 0.55-1.02 [facility] Comment on above: Performed By: #### C MP #### [facility] [address] [address] [address] Laila Castle EGFR-AF [place] ISLANDER >60 Normal >=60 [facility] Comment on above: Performed By: #### C MP #### [facility] [address] [address] [address] Laila Castle EGFR-NON AF [place] ISLANDER >60 Normal >=60 [facility] Comment on above: Performed By: #### C MP #### [facility] [address] [address] [address] Laila Castle Glucose [Mass/Vol] 90 mg/dL Normal 74-106 [facility] Comment on above: Performed By: #### C MP #### [facility] [address] [address] [address] Laila Castle Potassium [Moles/Vol] 4.4 mmol/L Normal 3.5-5.1 [facility] Comment on above: Performed By: #### C MP #### [facility] [address] [address] [address] Laila Castle Sodium [Moles/Vol] 144 mmol/L Normal 136-145 [facility] Comment on above: Performed By: #### C MP #### [facility] [address] [address] [address] Laila Castle Urea nitrogen [Mass/Vol] 12.0 mg/dL Normal 7.0-18.0 [facility] Comment on above: Performed By: #### C MP #### [facility] [address] [place] [address] Dr. Laila Castle Urea nitrogen/Creatinine [Mass ratio] 20.3 mg/mg Normal [facility] Comment on above: Performed By: #### C MP #### [facility] [address] [address] [address] Laila Castle SED [facility] SED RATE 42 mm/hr Critically high <=30 [facility] Comment on above: Performed By: #### C MP #### [facility] [address] [address] [address] Laila Castle TSHon 05-10-2022 TSH 0.528 uIU/mL Normal 0.358-3.[address] [facility] Comment on above: Performed By: #### C MP #### [facility] [address] [address] [address] Laila Castle VITAMIN D 25 OHon 05-10-2022 VIT D 25-OH 66.2 ng/mL Normal [facility] Comment on above: Performed By: #### V ITAD #### [facility] [address] [address] [address] Laila Castle VIT D RANGES SEE BELOW Normal [facility] Comment on above: Result Comment: <20 ng/mL Vit D deficient 20 - <30 ng/mL Vit D insufficient 30 - 100 ng/mL Vit D sufficient >100 ng/mL Potential Toxicity Performed By: #### V ITAD #### [facility] [address] [address] [address] Laila Castle C-Reactive Proteinon 023 CRP [Mass/Vol] 4.7 mg/L Normal 0.0-5.[address] [facility] Comment on above: Performed By: #### C RP, CDP, SED #### [facility] [place] [address] Snow Ranger: Chriss Townsend MD CRP High sensitivity method [Mass/Vol] 4.7 mg/L 0.0 - 5.0 mg/L [facility] CBC with Auto Differentialon 05-08-2022 Absolute Eos # [facility] [employer] Absolute Immature Granulocyte 0.12 [facility] Absolute Lymph # 1.23 [facility] [employer] Absolute Haskell # 0.62 [facility] [employer] Basophils (Bld) [#/Vol] 0.03 10*3/uL [facility] [employer] Basophils/100 WBC (Bld) 0 % 0 - 2 % [facility] Eosinophils/100 WBC (Bld) 0 % Low 1 - 4 % [facility] Hematocrit (Bld) [Volume fraction] 44.0 % 36.3 - 47.1 % [facility] Hemoglobin (Bld) [Mass/Vol] 13.6 g/dL 11.9 - 15.1 g/dL [facility] Immature granulocytes/100 WBC (Bld) 1 % High 0 [facility] Interpretation and review of laboratory results Abnormal [facility] Lymphocytes/100 WBC (Bld) 11 % Low 24 - 43 % [facility] MCH (RBC) [Entitic mass] 30.6 pg 25.2 - 33.5 pg [facility] MCHC (RBC) [Mass/Vol] 30.9 g/dL 28.4 - 34.8 g/dL [facility] MCV (RBC) [Entitic vol] 98.9 fL 82.6 - 102.9 fL [facility] Monocytes/100 WBC (Bld) 6 % 3 - 12 % [facility] NRBC Automated 0.0 0.0 per 100 WBC [facility] Platelet distribution width (Bld) [Ratio] 14.2 % 11.8 - 14.4 % [facility] Platelet mean volume (Bld) [Entitic vol] 9.5 fL 8.1 - 13.5 fL [facility] Platelets (Bld) [#/Vol] 231 10*3/uL [facility] RBC (Bld) [#/Vol] 4.45 10*6/uL 3.95 - 5.1 1 m/uL [facility] Segmented neutrophils/100 WBC (Bld) 82 % High 36 - 65 % [facility] Segs Absolute 9.31 High [facility] WBC (Bld) [#/Vol] 11.3 10*3/uL [facility] CBC with Diffon 05-08-2022 Abs. Basophil 0.03 k/uL Normal 0.00-0.[address] [facility] Comment on above: Performed By: #### C RP, CDP, SED #### [address] [address] Snow Ranger: Chriss Townsend MD Abs. Eosinophil <0.03 Normal 0.00-0.[address] [facility] Comment on above: Performed By: #### C RP, CDP, SED #### [facility] [address] [place] [address] Snow Ranger: Chriss Townsend MD Abs.Imm.Granulocyte 0.12 k/uL Normal 0.00-0.[address] [facility] Comment on above: Performed By: #### C RP, CDP, SED #### [facility] [address] [place] [address] Snow Ranger: Chriss Townsend MD Abs.Neutrophil (Seg) 9.31 k/uL High 1.50-8.10 [facility] Comment on above: Performed By: #### C RP, CDP, SED #### [facility] [address] [place] [address] Snow Ranger: Chriss Townsend MD Basophils/100 WBC (Bld) 0 % Normal 0-[address] [facility] Comment on above: Performed By: #### C RP, CDP, SED #### [facility] [address] [place] [address] Snow Ranger: Chriss Townsend MD Eosinophils/100 WBC (Bld) 0 % Low 1-[address] [facility] Comment on above: Performed By: #### C RP, CDP, SED #### [facility] [address] [place] [address] Snow Ranger: Chriss Townsend MD Erythrocyte distribution width (RBC) [Ratio] 14.2 % Normal 11.8-14.[address] [facility] Comment on above: Performed By: #### C RP, CDP, SED #### [facility] [address] [place] [address] Snow Ranger: Chriss Townsend MD Hematocrit (Bld) [Volume fraction] 44.0 % Normal 36.3-47.[address] [facility] Comment on above: Performed By: #### C RP, CDP, SED #### [address] [address] Snow Ranger: Chriss Townsend MD Hemoglobin (Bld) [Mass/Vol] 13.6 g/dL Normal 11.9-15.[address] [facility] Comment on above: Performed By: #### C RP, CDP, SED #### [address] [address] Snow Ranger: Chriss Townsend MD Immature granulocytes/100 WBC (Bld) 1 % High [address] [facility] Comment on above: Performed By: #### C RP, CDP, SED #### [address] [address] Snow Ranger: Chriss Townsend MD Lymphocytes (Bld) [#/Vol] 1.23 10*3/uL Normal 1.10-3.[address] [facility] Comment on above: Performed By: #### C RP, CDP, SED #### [address] [address] Snow Ranger: Chriss Townsend MD Lymphocytes/100 WBC (Bld) 11 % Low 24-[address] [facility] Comment on above: Performed By: #### C RP, CDP, SED #### [facility] [address] [place] [address] Snow Ranger: Chriss Townsend MD MCH (RBC) [Entitic mass] 30.6 pg Normal 25.2-33.[address] [facility] Comment on above: Performed By: #### C RP, CDP, SED #### [facility] [address] [place] [address] Snow Ranger: Chriss Townsend MD MCHC (RBC) [Mass/Vol] 30.9 g/dL Normal 28.4-34.8 [facility] Comment on above: Performed By: #### C RP, CDP, SED #### [address] [address] Snow Ranger: Chriss Townsend MD MCV (RBC) [Entitic vol] 98.9 fL Normal 82.6-102.[address] [facility] Comment on above: Performed By: #### C RP, CDP, SED #### [address] [address] Snow Ranger: Chriss Townsend MD Monocytes (Bld) [#/Vol] 0.62 10*3/uL Normal 0.10-1.[address] [facility] Comment on above: Performed By: #### C RP, CDP, SED #### [place] [address] Snow Ranger: Chriss Townsend MD Monocytes/100 WBC (Bld) 6 % Normal 3-[address] [facility] Comment on above: Performed By: #### C RP, CDP, SED #### [address] [address] Snow Ranger: Chriss Townsend MD Neutrophil (Seg) 82 % High 36-65 [facility] Comment on above: Performed By: #### C RP, CDP, SED #### [place] [address] Snow Ranger: Chriss Townsend MD NRBC Automated 0.0 per 100 WBC Normal 0.[address] [facility] Comment on above: Performed By: #### C RP, CDP, SED #### [address] [address] Snow Ranger: Chriss Townsend MD Platelet mean volume (Bld) [Entitic vol] 9.5 fL Normal 8.1-13.[address] [facility] Comment on above: Performed By: #### C RP, CDP, SED #### [facility] [address] [place] [address] Snow Ranger: Chriss Townsend MD Platelets (Bld) [#/Vol] 231 10*3/uL Normal 138-[address] [facility] Comment on above: Performed By: #### C RP, CDP, SED #### [facility] [address] [place] [address] Snow Ranger: Chriss Townsend MD RBC (Bld) [#/Vol] 4.45 10*6/uL Normal 3.95-5.[address] [facility] Comment on above: Performed By: #### C RP, CDP, SED #### [facility] [address] [place] [address] Snow Ranger: Chriss Townsend MD WBC (Bld) [#/Vol] 11.3 10*3/uL Normal 3.5-11.[address] [facility] Comment on above: Performed By: #### C RP, CDP, SED #### [facility] [address] [place] [address] Snow Ranger: Chriss Townsend MD Sedimentation Rateon 023 Sedimentation Rate 18 mm/Hr Normal 0-[address] [facility] Comment on above: Performed By: #### C RP, CDP, SED #### [facility] [address] [place] [address] Snow Ranger: Chriss Townsend MD ESR (Bld) [Velocity] 18 mm/h [employer] [facility] Telephone Encounteron 2021 Paraprofessional Aide Authentication Interface Message Text Most recent visit in Rheumatology was on 02/22/2021 with Tom Welch MD No future appointments in Rheumatology CBC (last 3 years, up to 5 values) WBC RBC Hgb Hct MCV RDW Plt 02/09/21 0948 10.3 4.56 14.1 42.8 94 15.2 230 11/09/20 1443 10.1 4.90 14.6 44.8 91 15.7 195 Basic Metabolic Panel Na K Cl CO2 Gap Glu BUN Cr Ca 02/09/21 0948 0.60 LFT's (last 3 years, up to 5 values) T Prot Albumin D Bili T Bili Alk Phos ALT AST 02/09/21 0948 6.3 3.8 <0.10 0.7 68 24 23 11/09/20 1443 6.8 4.0 0.10 0.7 62 24 24 No records found for TST-PPD, intradermal (PPD) (CVX=96) Normal [facility] CBC AUTO DIFFon 11-12-2021 BASO # 0.0 103/ul Normal 0.0-0.1 [facility] Comment on above: Performed By: #### C BC #### [facility] [address] [place] [address] Dr. Laila Castle Basophils/100 WBC (Bld) 0.4 % Normal 0.2-2.0 [facility] Comment on above: Performed By: #### C BC #### [facility] [address] [place] [address] Dr. Laila Castle EO # 0.0 103/ul Normal 0.0-0.7 [facility] Comment on above: Performed By: #### C BC #### [facility] [address] [address] [address] Laila Castle Eosinophils/100 WBC (Bld) 0.0 % Critically low 0.9-7.0 [facility] Comment on above: Performed By: #### C BC #### [facility] [address] [place] [address] Dr. Laila Castle Erythrocyte distribution width (RBC) [Ratio] 14.6 % Normal 11.0-15.0 [facility] Comment on above: Performed By: #### C BC #### [facility] [address] [place] [address] Dr. Laila Castle Hematocrit (Bld) [Volume fraction] 40.3 % Normal 36.0-48.0 [facility] Comment on above: Performed By: #### C BC #### [facility] [address] [address] [address] Laila Castle Hemoglobin (Bld) [Mass/Vol] 12.5 g/dL Normal 12.0-16.0 [facility] Comment on above: Performed By: #### C BC #### [facility] [address] [address] [address] Laila Castle IG # 0.24 10e3/ul Critically high 0.00-0.03 [facility] Comment on above: Performed By: #### C BC #### [facility] [address] [address] [address] Laila Castle IG % 2.2 % Critically high 0.0-0.5 [facility] Comment on above: Performed By: #### C BC #### [facility] [address] [address] [address] Laila Castle LYMPH # 0.9 103/ul Critically low 1.2-3.8 [facility] Comment on above: Performed By: #### C BC #### [facility] [address] [address] [address] Laila Castle Lymphocytes/100 WBC (Bld) 7.8 % Critically low 20.5-60.0 [facility] Comment on above: Performed By: #### C BC #### [facility] [address] [address] [address] Laila Castle MANUAL DIFF REQ NO Normal [facility] Comment on above: Performed By: #### C BC #### [facility] [address] [address] [address] Laila Castle MCH (RBC) [Entitic mass] 28.7 pg Normal 26.7-34.0 [facility] Comment on above: Performed By: #### C BC #### [facility] [address] [address] [address] Laila Castle MCHC (RBC) [Mass/Vol] 31.0 g/dL Normal 29.9-35.2 [facility] Comment on above: Performed By: #### C BC #### [facility] [address] [address] [address] Laila Castle MCV (RBC) [Entitic vol] 92.4 fL Normal 81.0-99.0 [facility] Comment on above: Performed By: #### C BC #### [facility] [address] [address] [address] Laila Castle MONO # 0.7 103/ul Normal 0.3-0.8 [facility] Comment on above: Performed By: #### C BC #### [facility] [address] [place] [address] Dr. Laila Castle Monocytes/100 WBC (Bld) 6.4 % Normal 1.7-12.0 [facility] Comment on above: Performed By: #### C BC #### [facility] [address] [place] [address] Dr. Laila Castle NEUT # 9.2 103/ul Critically high 1.4-6.5 [facility] Comment on above: Performed By: #### C BC #### [facility] [address] [place] [address] Dr. Laila Castle Neutrophils/100 WBC (Bld) 83.2 % Critically high 43.0-75.0 [facility] Comment on above: Performed By: #### C BC #### [facility] [address] [place] [address] Dr. Laila Castle Platelet mean volume (Bld) [Entitic vol] 9.0 fL Critically low 9.5-13.5 [facility] Comment on above: Performed By: #### C BC #### [facility] [address] [place] [address] Dr. Laila Castle PLT 250 103/ul Normal 150-450 [facility] Comment on above: Performed By: #### C BC #### [facility] [address] [place] [address] Dr. Laila Castle RBC 4.36 106/ul Normal 4.20-5.40 [facility] Comment on above: Performed By: #### C BC #### [facility] [address] [place] [address] Dr. Laila Castle WBC 11.1 103/ul Critically high 4.0-11.0 [facility] Comment on above: Performed By: #### C BC #### [facility] [address] [place] [address] Dr. Laila Castle POINT OF CARE GLUCOSEon 10-22 Glucose [Mass/Vol] 116 mg/dL Critically high 74-[address] [facility] Comment on above: Performed By: #### P OCGLUC #### [facility] [address] [place] [address] Dr. Laila Castle Glucose [Mass/Vol] 144 mg/dL Critically high 74-[address] [facility] Comment on above: Performed By: #### P OCGLUC #### [facility] [address] [place] [address] Dr. Laila Castle PROF 14(COMP METB)on 022 Albumin [Mass/Vol] 2.8 g/dL Critically low 3.4-5.0 [facility] Comment on above: Performed By: #### C MP #### [facility] [address] [place] [address] Dr. Laila Castle Albumin/Globulin [Mass ratio] 0.8 {ratio} Normal [facility] Comment on above: Performed By: #### C MP #### [facility] [address] [place] [address] Dr. Laila Castle ALP [Catalytic activity/Vol] 88 U/L Normal 46-116 [facility] Comment on above: Performed By: #### C MP #### [facility] [address] [place] [address] Dr. Laila Castle ALT [Catalytic activity/Vol] 19 U/L Normal 14-59 [facility] Comment on above: Performed By: #### C MP #### [facility] [address] [place] [address] Dr. Laila Castle Anion gap [Moles/Vol] 11.8 mmol/L Normal [facility] Comment on above: Performed By: #### C MP #### [facility] [address] [place] [address] Dr. Laila Castle AST [Catalytic activity/Vol] 20 U/L Normal 15-37 [facility] Comment on above: Performed By: #### C MP #### [facility] [address] [address] [address] Laila Castle Bilirubin [Mass/Vol] 0.3 mg/dL Normal 0.2-1.0 [facility] Comment on above: Performed By: #### C MP #### [facility] [address] [address] [address] Laila Castle Calcium [Mass/Vol] 9.7 mg/dL Normal 8.5-10.1 [facility] Comment on above: Performed By: #### C MP #### [facility] [address] [address] [address] Laila Castle Chloride [Moles/Vol] 106 mmol/L Normal 98-107 [facility] Comment on above: Performed By: #### C MP #### [facility] [address] [address] [address] Laila Castle CO2 [Moles/Vol] 24.6 mmol/L Normal 21.0-32.0 [facility] Comment on above: Performed By: #### C MP #### [facility] [address] [place] [address] Dr. Laila Castle Creatinine [Mass/Vol] 0.67 mg/dL Normal 0.55-1.02 [facility] Comment on above: Performed By: #### C MP #### [facility] [address] [place] [address] Dr. Laila Castle EGFR-AF CAYMAN ISLANDER >60 Normal >=60 [facility] Comment on above: Performed By: #### C MP #### [facility] [address] [place] [address] Dr. Laila Castle EGFR-NON AF CAYMAN ISLANDER >60 Normal >=60 [facility] Comment on above: Performed By: #### C MP #### [facility] [address] [place] [address] Dr. Laila Castle Globulin (S) [Mass/Vol] 3.3 g/dL Normal [facility] Comment on above: Performed By: #### C MP #### [facility] [address] [address] [address] Laila Castle Glucose [Mass/Vol] 84 mg/dL Normal 74-106 [facility] Comment on above: Performed By: #### C MP #### [facility] [address] [address] [address] Laila Castle Potassium [Moles/Vol] 3.4 mmol/L Critically low 3.5-5.1 [facility] Comment on above: Performed By: #### C MP #### [facility] [address] [address] [address] Laila Castle Protein [Mass/Vol] 6.1 g/dL Critically low 6.4-8.2 [facility] Comment on above: Performed By: #### C MP #### [facility] [address] [address] [address] Laila Castle Sodium [Moles/Vol] 139 mmol/L Normal 136-145 [facility] Comment on above: Performed By: #### C MP #### [facility] [address] [address] [address] Laila Castle Urea nitrogen [Mass/Vol] 19.0 mg/dL Critically high 7.0-18.0 [facility] Comment on above: Performed By: #### C MP #### [facility] [address] [address] [address] Laila Castle Urea nitrogen/Creatinine [Mass ratio] 28.4 mg/mg Normal [facility] Comment on above: Performed By: #### C MP #### [facility] [address] [address] [address] Laila Castle CBC AUTO DIFFon 11-11-2021 BASO # 0.0 103/ul Normal 0.0-0.1 [facility] Comment on above: Performed By: #### C BC #### [facility] [address] [address] [address] Laila Castle Basophils/100 WBC (Bld) 0.3 % Normal 0.2-2.0 [facility] Comment on above: Performed By: #### C BC #### [facility] [address] [place] [address] Dr. Laila Castle EO # 0.0 103/ul Normal 0.0-0.7 [facility] Comment on above: Performed By: #### C BC #### [facility] [address] [place] [address] Dr. Laila Castle Eosinophils/100 WBC (Bld) 0.0 % Critically low 0.9-7.0 [facility] Comment on above: Performed By: #### C BC #### [facility] [address] [place] [address] Dr. Laila Castle Erythrocyte distribution width (RBC) [Ratio] 14.5 % Normal 11.0-15.0 [facility] Comment on above: Performed By: #### C BC #### [facility] [address] [place] [address] Dr. Laila Castle Hematocrit (Bld) [Volume fraction] 38.7 % Normal 36.0-48.0 [facility] Comment on above: Performed By: #### C BC #### [facility] [address] [place] [address] Dr. Laila Castle Hemoglobin (Bld) [Mass/Vol] 12.1 g/dL Normal 12.0-16.0 [facility] Comment on above: Performed By: #### C BC #### [facility] [address] [place] [address] Dr. Laila Castle IG # 0.21 10e3/ul Critically high 0.00-0.03 [facility] Comment on above: Performed By: #### C BC #### [facility] [address] [place] [address] Dr. Laila Castle IG % 1.8 % Critically high 0.0-0.5 [facility] Comment on above: Performed By: #### C BC #### [facility] [address] [place] [address] Dr. Laila Castle LYMPH # 0.8 103/ul Critically low 1.2-3.8 [facility] Comment on above: Performed By: #### C BC #### [facility] [address] [place] [address] Dr. Laila Castle Lymphocytes/100 WBC (Bld) 6.6 % Critically low 20.5-60.0 [facility] Comment on above: Performed By: #### C BC #### [facility] [address] [place] [address] Dr. Laila Castle MANUAL DIFF REQ NO Normal [facility] Comment on above: Performed By: #### C BC #### [facility] [address] [place] [address] Dr. Laila Castle MCH (RBC) [Entitic mass] 29.1 pg Normal 26.7-34.0 [facility] Comment on above: Performed By: #### C BC #### [facility] [address] [place] [address] Dr. Laila Castle MCHC (RBC) [Mass/Vol] 31.3 g/dL Normal 29.9-35.2 [facility] Comment on above: Performed By: #### C BC #### [facility] [address] [place] [address] Dr. Laila Castle MCV (RBC) [Entitic vol] 93.0 fL Normal 81.0-99.0 [facility] Comment on above: Performed By: #### C BC #### [facility] [address] [place] [address] Dr. Laila Castle MONO # 0.6 103/ul Normal 0.3-0.8 [facility] Comment on above: Performed By: #### C BC #### [facility] [address] [place] [address] Dr. Laila Castle Monocytes/100 WBC (Bld) 5.1 % Normal 1.7-12.0 [facility] Comment on above: Performed By: #### C BC #### [facility] [address] [place] [address] Dr. Laila Castle NEUT # 10.1 103/ul Critically high 1.4-6.5 [facility] Comment on above: Performed By: #### C BC #### [facility] [address] [address] [address] Laila Castle Neutrophils/100 WBC (Bld) 86.2 % Critically high 43.0-75.0 [facility] Comment on above: Performed By: #### C BC #### [facility] [address] [address] [address] Laila Castle Platelet mean volume (Bld) [Entitic vol] 8.9 fL Critically low 9.5-13.5 [facility] Comment on above: Performed By: #### C BC #### [facility] [address] [address] [address] Laila Castle PLT 239 103/ul Normal 150-450 [facility] Comment on above: Performed By: #### C BC #### [facility] [address] [address] [address] Laila Castle RBC 4.16 106/ul Critically low 4.20-5.40 [facility] Comment on above: Performed By: #### C BC #### [facility] [address] [address] [address] Laila Castle WBC 11.7 103/ul Critically high 4.0-11.0 [facility] Comment on above: Performed By: #### C BC #### [facility] [address] [place] [address] Dr. Laila Castle POINT OF CARE GLUCOSEon 10-22 Glucose [Mass/Vol] 132 mg/dL Critically high 74-[address] [facility] Comment on above: Performed By: #### P OCGLUC #### [facility] [address] [address] [address] Laila Castle Glucose [Mass/Vol] 125 mg/dL Critically high 74-[address] [facility] Comment on above: Performed By: #### C MP #### [facility] [address] [address] [address] Laila Castle Glucose [Mass/Vol] 127 mg/dL Critically high 74-[address] [facility] Comment on above: Performed By: #### P OCGLUC #### [facility] [address] [address] [address] Laila Castle Glucose [Mass/Vol] 102 mg/dL Normal 74-106 [facility] Comment on above: Performed By: #### P OCGLUC #### [facility] [address] [address] [address] Laila Castle PROF 14(COMP METB)on 022 Albumin [Mass/Vol] 2.7 g/dL Critically low 3.4-5.0 [facility] Comment on above: Performed By: #### C MP #### [facility] [address] [place] [address] Dr. Laila Castle Albumin/Globulin [Mass ratio] 0.8 {ratio} Normal [facility] Comment on above: Performed By: #### C MP #### [facility] [address] [place] [address] Dr. Laila Castle ALP [Catalytic activity/Vol] 88 U/L Normal 46-116 [facility] Comment on above: Performed By: #### C MP #### [facility] [address] [place] [address] Dr. Laila Castle ALT [Catalytic activity/Vol] 16 U/L Normal 14-59 [facility] Comment on above: Performed By: #### C MP #### [facility] [address] [place] [address] Dr. Laila Castle Anion gap [Moles/Vol] 12.8 mmol/L Normal [facility] Comment on above: Performed By: #### C MP #### [facility] [address] [place] [address] Dr. Laila Castle AST [Catalytic activity/Vol] 15 U/L Normal 15-37 [facility] Comment on above: Performed By: #### C MP #### [facility] [address] [place] [address] Dr. Laila Castle Bilirubin [Mass/Vol] 0.2 mg/dL Normal 0.2-1.0 [facility] Comment on above: Performed By: #### C MP #### [facility] [address] [address] [address] Laila Castle Calcium [Mass/Vol] 9.8 mg/dL Normal 8.5-10.1 [facility] Comment on above: Performed By: #### C MP #### [facility] [address] [address] [address] Laila Castle Chloride [Moles/Vol] 106 mmol/L Normal 98-107 [facility] Comment on above: Performed By: #### C MP #### [facility] [address] [address] [address] Laila Castle CO2 [Moles/Vol] 24.0 mmol/L Normal 21.0-32.0 [facility] Comment on above: Performed By: #### C MP #### [facility] [address] [place] [address] Dr. Laila Castle Creatinine [Mass/Vol] 0.62 mg/dL Normal 0.55-1.02 [facility] Comment on above: Performed By: #### C MP #### [facility] [address] [place] [address] Dr. Laila Castle EGFR-AF CAYMAN ISLANDER >60 Normal >=60 [facility] Comment on above: Performed By: #### C MP #### [facility] [address] [place] [address] Dr. Laila Castle EGFR-NON AF CAYMAN ISLANDER >60 Normal >=60 [facility] Comment on above: Performed By: #### C MP #### [facility] [address] [address] [address] Laila Castle Globulin (S) [Mass/Vol] 3.6 g/dL Normal [facility] Comment on above: Performed By: #### C MP #### [facility] [address] [place] [address] Dr. Laila Castle Glucose [Mass/Vol] 126 mg/dL Critically high 74-[address] [facility] Comment on above: Performed By: #### C MP #### [facility] [address] [place] [address] Dr. Laila Castle Potassium [Moles/Vol] 3.8 mmol/L Normal 3.5-5.1 [facility] Comment on above: Performed By: #### C MP #### [facility] [address] [place] [address] Dr. Laila Castle Protein [Mass/Vol] 6.3 g/dL Critically low 6.4-8.2 [facility] Comment on above: Performed By: #### C MP #### [facility] [address] [place] [address] Dr. Laila Castle Sodium [Moles/Vol] 139 mmol/L Normal 136-145 [facility] Comment on above: Performed By: #### C MP #### [facility] [address] [place] [address] Dr. Laila Castle Urea nitrogen [Mass/Vol] 18.0 mg/dL Normal 7.0-18.0 [facility] Comment on above: Performed By: #### C MP #### [facility] [address] [place] [address] Dr. Laila Castle Urea nitrogen/Creatinine [Mass ratio] 29.0 mg/mg Normal [facility] Comment on above: Performed By: #### C MP #### [facility] [address] [place] [address] Dr. Laila Castle CBC AUTO DIFFon 11-10-2021 BASO # 0.0 103/ul Normal 0.0-0.1 [facility] Comment on above: Performed By: #### P OCGLUC #### [facility] [address] [place] [address] Dr. Laila Castle Basophils/100 WBC (Bld) 0.7 % Normal 0.2-2.0 [facility] Comment on above: Performed By: #### P OCGLUC #### [facility] [address] [place] [address] Dr. Laila Castle EO # 0.0 103/ul Normal 0.0-0.7 [facility] Comment on above: Performed By: #### P OCGLUC #### [facility] [address] [place] [address] Dr. Laila Castle Eosinophils/100 WBC (Bld) 0.0 % Critically low 0.9-7.0 [facility] Comment on above: Performed By: #### P OCGLUC #### [facility] [address] [place] [address] Dr. Laila Castle Erythrocyte distribution width (RBC) [Ratio] 14.6 % Normal 11.0-15.0 [facility] Comment on above: Performed By: #### P OCGLUC #### [facility] [address] [address] [address] Laila Castle Hematocrit (Bld) [Volume fraction] 38.6 % Normal 36.0-48.0 [facility] Comment on above: Performed By: #### P OCGLUC #### [facility] [address] [place] [address] Dr. Laila Castle Hemoglobin (Bld) [Mass/Vol] 12.1 g/dL Normal 12.0-16.0 [facility] Comment on above: Performed By: #### P OCGLUC #### [facility] [address] [place] [address] Dr. Laila Castle IG # 0.23 10e3/ul Critically high 0.00-0.03 [facility] Comment on above: Performed By: #### P OCGLUC #### [facility] [address] [place] [address] Dr. Laila Castle IG % 4.0 % Critically high 0.0-0.5 [facility] Comment on above: Performed By: #### P OCGLUC #### [facility] [address] [place] [address] Dr. Laila Castle LYMPH # 0.7 103/ul Critically low 1.2-3.8 [facility] Comment on above: Performed By: #### P OCGLUC #### [facility] [address] [place] [address] Dr. Laila Castle Lymphocytes/100 WBC (Bld) 11.3 % Critically low 20.5-60.0 [facility] Comment on above: Result Comment: MANU AL DIFF NOT REQUIRED. CONSISTENT WITH MANUAL DIFF PERFORMED ON 11/10/21 Performed By: #### P OCGLUC #### [facility] [address] [place] [address] Dr. Laila Castle MANUAL DIFF REQ NO Normal [facility] Comment on above: Performed By: #### P OCGLUC #### [facility] [address] [place] [address] Dr. Laila Castle MCH (RBC) [Entitic mass] 28.6 pg Normal 26.7-34.0 [facility] Comment on above: Performed By: #### P OCGLUC #### [facility] [address] [place] [address] Dr. Laila Castle MCHC (RBC) [Mass/Vol] 31.3 g/dL Normal 29.9-35.2 [facility] Comment on above: Performed By: #### P OCGLUC #### [facility] [address] [place] [address] Dr. Laila Castle MCV (RBC) [Entitic vol] 91.3 fL Normal 81.0-99.0 [facility] Comment on above: Performed By: #### P OCGLUC #### [facility] [address] [place] [address] Dr. Lalia Castle MONO # 0.1 103/ul Critically low 0.3-0.8 [facility] Comment on above: Performed By: #### P OCGLUC #### [facility] [address] [place] [address] Dr. Laila Castle Monocytes/100 WBC (Bld) 2.1 % Normal 1.7-12.0 [facility] Comment on above: Performed By: #### P OCGLUC #### [facility] [address] [place] [address] Dr. Laila Castle NEUT # 4.7 103/ul Normal 1.4-6.5 [facility] Comment on above: Performed By: #### P OCGLUC #### [facility] [address] [place] [address] Dr. Laila Castle Neutrophils/100 WBC (Bld) 81.9 % Critically high 43.0-75.0 [facility] Comment on above: Performed By: #### P OCGLUC #### [facility] [address] [address] [address] Laila Castle Platelet mean volume (Bld) [Entitic vol] 8.9 fL Critically low 9.5-13.5 [facility] Comment on above: Performed By: #### P OCGLUC #### [facility] [address] [address] [address] Laila Castle PLT 213 103/ul Normal 150-450 [facility] Comment on above: Performed By: #### P OCGLUC #### [facility] [address] [address] [address] Laila Castle RBC 4.23 106/ul Normal 4.20-5.40 [facility] Comment on above: Performed By: #### P OCGLUC #### [facility] [address] [address] [address] Laila Castle WBC 5.8 103/ul Normal 4.0-11.0 [facility] Comment on above: Performed By: #### P OCGLUC #### [facility] [address] [address] [address] Laila Castle POINT OF CARE GLUCOSEon 10-22 Glucose [Mass/Vol] 147 mg/dL Critically high -[address] [facility] Comment on above: Performed By: #### P OCGLUC #### [facility] [address] [address] [address] Laila Castle Glucose [Mass/Vol] 125 mg/dL Critically high -[address] [facility] Comment on above: Performed By: #### C VDTBH #### [facility] [address] [address] [address] Laila Castle Glucose [Mass/Vol] 148 mg/dL Critically high -[address] [facility] Comment on above: Performed By: #### P OCGLUC #### [facility] [address] [address] [address] Laila Castle PROF 14(COMP METB)on 022 Albumin [Mass/Vol] 2.6 g/dL Critically low 3.4-5.0 [facility] Comment on above: Performed By: #### C MP #### [facility] [address] [address] [address] Laila Castle Albumin/Globulin [Mass ratio] 0.7 {ratio} Normal [facility] Comment on above: Performed By: #### C MP #### [facility] [address] [address] [address] Laila Castle ALP [Catalytic activity/Vol] 93 U/L Normal 46-116 [facility] Comment on above: Performed By: #### C MP #### [facility] [address] [address] [address] Laila Castle ALT [Catalytic activity/Vol] 20 U/L Normal 14-59 [facility] Comment on above: Performed By: #### C MP #### [facility] [address] [place] [address] Dr. Laila Castle Anion gap [Moles/Vol] 14.0 mmol/L Normal [facility] Comment on above: Performed By: #### C MP #### [facility] [address] [place] [address] Dr. Laila Castle AST [Catalytic activity/Vol] 15 U/L Normal 15-37 [facility] Comment on above: Performed By: #### C MP #### [facility] [address] [address] [address] Laila Castle Bilirubin [Mass/Vol] 0.2 mg/dL Normal 0.2-1.0 [facility] Comment on above: Performed By: #### C MP #### [facility] [address] [place] [address] Dr. Laila Castle Calcium [Mass/Vol] 9.1 mg/dL Normal 8.5-10.1 [facility] Comment on above: Performed By: #### C MP #### [facility] [address] [address] [address] Laila Castle Chloride [Moles/Vol] 106 mmol/L Normal 98-107 [facility] Comment on above: Performed By: #### C MP #### [facility] [address] [address] [address] Laila Castle CO2 [Moles/Vol] 23.8 mmol/L Normal 21.0-32.0 [facility] Comment on above: Performed By: #### C MP #### [facility] [address] [address] [address] Laila Castle Creatinine [Mass/Vol] 0.57 mg/dL Normal 0.55-1.02 [facility] Comment on above: Performed By: #### C MP #### [facility] [address] [address] [address] Laila Castle EGFR-AF CAYMAN ISLANDER >60 Normal >=60 [facility] Comment on above: Performed By: #### C MP #### [facility] [address] [place] [address] Dr. Laila Castle EGFR-NON AF CAYMAN ISLANDER >60 Normal >=60 [facility] Comment on above: Performed By: #### C MP #### [facility] [address] [place] [address] Dr. Laila Castle Globulin (S) [Mass/Vol] 3.7 g/dL Normal [facility] Comment on above: Performed By: #### C MP #### [facility] [address] [place] [address] Dr. Laila Castle Glucose [Mass/Vol] 133 mg/dL Critically high 74-106 T [facility] Comment on above: Performed By: #### C MP #### [facility] [address] [place] [address] Dr. Laila Castle Potassium [Moles/Vol] 3.8 mmol/L Normal 3.5-5.1 [facility] Comment on above: Performed By: #### C MP #### [facility] [address] [place] [address] Dr. Laila Castle Protein [Mass/Vol] 6.3 g/dL Critically low 6.4-8.2 Th [facility] Comment on above: Performed By: #### C MP #### [facility] [address] [place] [address] Dr. Laila Castle Sodium [Moles/Vol] 140 mmol/L Normal 136-145 [facility] Comment on above: Performed By: #### C MP #### [facility] [address] [place] [address] Dr. Laila Castle Urea nitrogen [Mass/Vol] 12.0 mg/dL Normal 7.0-18.0 [facility] Comment on above: Performed By: #### C MP #### [facility] [address] [place] [address] Dr. Laila Castle Urea nitrogen/Creatinine [Mass ratio] 21.1 mg/mg Normal [facility] Comment on above: Performed By: #### C MP #### [facility] [address] [place] [address] Dr. Laila Caslte CARDIAC HECTOR ADMITon 022 CK [Catalytic activity/Vol] 58 U/L Normal 26-192 [facility] Comment on above: Performed By: #### P OCGLUC #### [facility] [address] [place] [address] Dr. Laila Castle CK.MB [Mass/Vol] 27.42 ng/mL Critically high <=3.60 Th [facility] Comment on above: Performed By: #### P OCGLUC #### [facility] [address] [place] [address] Dr. Laila Castle HSTROP 7.6 pg/mL Normal 4.0-51.3 [facility] Comment on above: Result Comment: CUT- OFF POINTS HAVE BEEN ESTABLISHED BASED ON THE FOURTH UNIVERSAL DEFINITIONS OF MYOCARDIAL INFARCTION. THE UPPER REFERENCE LIMIT (URL) OF TROPONIN, DEFINED THE 99TH PERCENTILE OF cTnI DISTRIBUTION IN A REFERENCE POPULATION, HAS BEEN CONFIRMED THE DECISION THRESHOLD FOR VA DIAGNOSIS. Performed By: #### P OCGLUC #### [facility] [address] [place] [address] Dr. Laila Castle SPENCER 15 ng/mL Normal 9-82 [facility] Comment on above: Performed By: #### P OCGLUC #### [facility] [address] [place] [address] Dr. Laila Castle CBC W MANUAL DIFFon 08-20-20 22 ATYPICAL LYMPH # Normal [facility] Comment on above: Performed By: #### C VDTBH #### [facility] [address] [place] [address] Dr. Laila Castle ATYPICAL LYMPH % Normal [facility] Comment on above: Performed By: #### C VDTBH #### [facility] [address] [place] [address] Dr. Laila Castle BAND # Normal 0.0-0.3 [facility] Comment on above: Performed By: #### C VDTBH #### [facility] [address] [place] [address] Dr. Laila Castle BAND % Normal 0-5 [facility] Comment on above: Performed By: #### C VDTBH #### [facility] [address] [place] [address] Dr. Laila Castle BASOM # 0.09 103/ul Normal 0.00-0.10 [facility] Comment on above: Performed By: #### C VDTBH #### [facility] [address] [place] [address] Dr. Laila Castle BASOM % 1.0 % Normal 0.2-2.0 [facility] Comment on above: Performed By: #### C VDTBH #### [facility] [address] [place] [address] Dr. Laila Castle BLAST # Normal [facility] Comment on above: Performed By: #### C VDTBH #### [facility] [address] [place] [address] Dr. Laila Castle BLAST % Normal [facility] Comment on above: Performed By: #### C VDTBH #### [facility] [address] [place] [address] Dr. Laila Castle CORRECTED WBC Normal 4.0-11.0 [facility] Comment on above: Performed By: #### C VDTBH #### [facility] [address] [place] [address] Dr. Laila Castle EOS # 0.00 103/ul Normal 0.00-0.70 [facility] Comment on above: Performed By: #### C VDTBH #### [facility] [address] [address] [address] Laila Castle EOS% 0.0 % Critically low 0.9-7.0 [facility] Comment on above: Performed By: #### C VDTBH #### [facility] [address] [address] [address] Laila Castle HCT 40.4 % Normal 36.0-48.0 [facility] Comment on above: Performed By: #### C VDTBH #### [facility] [address] [address] [address] Laila Castle HGB 12.9 g/dl Normal 12.0-16.0 [facility] Comment on above: Performed By: #### C VDTBH #### [facility] [address] [address] [address] Laila Castle LYMPHM # 0.73 103/ul Critically low 1.20-3.80 [facility] Comment on above: Performed By: #### C VDTBH #### [facility] [address] [address] [address] Laila Castle LYMPHM% 8.0 % Critically low 20.5-60.0 [facility] Comment on above: Performed By: #### C VDTBH #### [facility] [address] [address] [address] Laila Castle MCH 28.5 pg Normal 26.7-34.0 [facility] Comment on above: Performed By: #### C VDTBH #### [facility] [address] [address] [address] Laila Castle MCHC 31.9 g/dl Normal 29.9-35.2 [facility] Comment on above: Performed By: #### C VDTBH #### [facility] [address] [address] [address] Laila Castle MCV 89.4 fL Normal 81.0-99.0 [facility] Comment on above: Performed By: #### C VDTBH #### [facility] [address] [place] [address] Dr. Laila Castle METAMYELOCYTE # Normal [facility] Comment on above: Performed By: #### C VDTBH #### [facility] [address] [place] [address] Dr. Laila Castle METAMYELOCYTE % Normal [facility] Comment on above: Performed By: #### C VDTBH #### [facility] [address] [place] [address] Dr. Laila Castle MONOM# 0.18 103/ul Critically low 0.30-0.80 [facility] Comment on above: Performed By: #### C VDTBH #### [facility] [address] [place] [address] Dr. Laila Castle MONOM% 2.0 % Normal 1.7-12.0 [facility] Comment on above: Performed By: #### C VDTBH #### [facility] [address] [place] [address] Dr. Laila Castle MPV 9.7 fL Normal 9.5-13.5 [facility] Comment on above: Performed By: #### C VDTBH #### [facility] [address] [place] [address] Dr. Laila Castle MYELOCYTE # Normal [facility] Comment on above: Performed By: #### C VDTBH #### [facility] [address] [place] [address] Dr. Laila Castle MYELOCYTE % Normal [facility] Comment on above: Performed By: #### C VDTBH #### [facility] [address] [place] [address] Dr. Laila Castle NRBC Normal [facility] Comment on above: Performed By: #### C VDTBH #### [facility] [address] [place] [address] Dr. Laila Castle PLT 288 103/ul Normal 150-450 [facility] Comment on above: Performed By: #### C VDTBH #### [facility] [address] [place] [address] Dr. Laila Castle RBC 4.52 106/ul Normal 4.20-5.40 [facility] Comment on above: Performed By: #### C VDTBH #### [facility] [address] [address] [address] Laila Castle RDW 14.9 % Normal 11.0-15.0 [facility] Comment on above: Performed By: #### C VDTBH #### [facility] [address] [address] [address] Laila Castle SEG # 8.10 103/ul Critically high 1.40-6.50 [facility] Comment on above: Performed By: #### C VDTBH #### [facility] [address] [place] [address] Dr. Laila Castle SEG % 89.0 % Critically high 43.0-75.0 [facility] Comment on above: Performed By: #### C VDTBH #### [facility] [address] [address] [address] Laila Castle WBC 9.1 103/ul Normal 4.0-11.0 [facility] Comment on above: Performed By: #### C VDTBH #### [facility] [address] [place] [address] Dr. Laila Castle CTA CHEST WO W CONon 11-09- 022 CTA CHEST WO W CON CTA CHEST WO W CON CLINICAL: Shortness of breath, Covid positive. COMPARISON: Chest radiograph 11/09/2021. Lung bases images from abdomen CT 07/20/2021. No prior chest CT is available. TECHNIQUE: Thin section axial images were obtained from thoracic inlet to the diaphragms following the administration of intravenous contrast. CT angiographic reconstructions of the pulmonary arteries including multiple intensity projections in coronal and sagittal planes were performed. Surface rendered 3-D images were made from the helical data set on a dedicated workstation and sent to the PACS system for radiology interpretation. Dose reduction: mA and/or kV are were adjusted by automated exposure control software based upon patients height and weight. FINDINGS: Thoracic inlet and axillary structures are intact. Pretracheal lymph node of 10 mm shows lucent central component. No additional mediastinal adenopathy. No pericardial effusion or central mediastinal fluid collection. Pulmonary arterial tree is opacified and shows no filling defect to indicate pulmonary embolism. There is significant motion artifact in the perihilar and infrahilar regions affecting the segmental pulmonary artery branches. The posterior left lung base is not fully included in the scanned volume. Limited upper abdominal images show no gross abnormality. The lung windows show diffuse patchy airspace infiltrates within both lungs, greater on the left involving both upper and lower lobes. These are most confluent in the left upper lobe and lower lobe. No significant pleural effusion or pneumothorax. Central airways appear grossly patent. IMPRESSION: 1. No evidence of central pulmonary embolism. Limited evaluation of the infrahilar segmental pulmonary artery branches due to significant motion artifact. 2. Bilateral airspace infiltrates consistent with multifocal pulmonary infection, most prominent and confluent in the left upper and lower lobes, compatible with Covid associated pneumonia in light of clinical history. No pleural effusion is seen. 3. The posterior left lung base is not fully included in the scan volume. Borderline sized precarinal lymph node of 10 mm probably reactive or inflammatory in this setting. Electronically authenticated by: COLLETTE MARLOW Date: 2021-11-09 17:09 Normal [facility] D-DIMERon 11-09-2021 D-DIMER 5.66 mg/L FEU Critically high <=0.59 [facility] Comment on above: Performed By: #### D DIM #### [facility] [address] [address] [address] Laila Castle D-DIMER COMMENTS SEE BELOW Normal [facility] Comment on above: Result Comment: Incr eases in D-Dimer concentration observed with thromboembolic events can be variable due to localization, size, and age of the thrombus. Therefore, a thromboembolic event cannot be diagnosed with certainty on the basis of the reference range. D-Dimers may also be elevated for a variety of disorders including: advanced age, , coronary disease, cancer, liver disease, infection, inflammation, hematoma, DIC, trauma, post-surgery, diabetes, thrombolytic or anticoagulant therapy, stress, and generalized hospitalization. Performed By: #### D DIM #### [facility] [address] [address] [address] Laila Castle POINT OF CARE GLUCOSEon 10-22 Glucose [Mass/Vol] 160 mg/dL Critically high 74-106 [facility] Comment on above: Performed By: #### P OCGLUC #### [facility] [address] [address] [address] Laila Castle PROF 14(COMP METB)on 022 Albumin [Mass/Vol] 2.8 g/dL Critically low 3.4-5.0 [facility] Comment on above: Performed By: #### P OCGLUC #### [facility] [address] [address] [address] Laila Castle Albumin/Globulin [Mass ratio] 0.7 {ratio} Normal [facility] Comment on above: Performed By: #### P OCGLUC #### [facility] [address] [place] [address] Dr. Laila Castle ALP [Catalytic activity/Vol] 101 U/L Normal 46-116 [facility] Comment on above: Performed By: #### P OCGLUC #### [facility] [address] [address] [address] Laila Castle ALT [Catalytic activity/Vol] 26 U/L Normal 14-59 [facility] Comment on above: Performed By: #### P OCGLUC #### [facility] [address] [address] [address] Laila Castle Anion gap [Moles/Vol] 16.7 mmol/L Normal [facility] Comment on above: Performed By: #### P OCGLUC #### [facility] [address] [place] [address] Dr. Laila Castle AST [Catalytic activity/Vol] 43 U/L Critically high 15-37 [facility] Comment on above: Performed By: #### P OCGLUC #### [facility] [address] [address] [address] Laila Castle Bilirubin [Mass/Vol] 0.6 mg/dL Normal 0.2-1.0 [facility] Comment on above: Performed By: #### P OCGLUC #### [facility] [address] [place] [address] Dr. Laila Castle Calcium [Mass/Vol] 9.9 mg/dL Normal 8.5-10.1 [facility] Comment on above: Performed By: #### P OCGLUC #### [facility] [address] [address] [address] Laila Castle Chloride [Moles/Vol] 100 mmol/L Normal 98-107 [facility] Comment on above: Performed By: #### P OCGLUC #### [facility] [address] [address] [address] Laila Castle CO2 [Moles/Vol] 24.0 mmol/L Normal 21.0-32.0 [facility] Comment on above: Performed By: #### P OCGLUC #### [facility] [address] [address] [address] Laila Castle Creatinine [Mass/Vol] 0.71 mg/dL Normal 0.55-1.02 [facility] Comment on above: Performed By: #### P OCGLUC #### [facility] [address] [place] [address] Dr. Laila Castle EGFR-AF [place]LANDER >60 Normal >=60 [facility] Comment on above: Performed By: #### P OCGLUC #### [facility] [address] [address] [address] Laila Castle EGFR-NON AF [place]ER >60 Normal >=60 [facility] Comment on above: Performed By: #### P OCGLUC #### [facility] [address] [address] [address] Laila Castle Globulin (S) [Mass/Vol] 4.2 g/dL Normal [facility] Comment on above: Performed By: #### P OCGLUC #### [facility] [address] [address] [address] Laila Castle Glucose [Mass/Vol] 119 mg/dL Critically high 74-[address] [facility] Comment on above: Performed By: #### P OCGLUC #### [facility] [address] [address] [address] Laila Castle Potassium [Moles/Vol] 4.7 mmol/L Normal 3.5-5.1 [facility] Comment on above: Performed By: #### P OCGLUC #### [facility] [address] [address] [address] Laila Castle Protein [Mass/Vol] 7.0 g/dL Normal 6.4-8.2 [facility] Comment on above: Performed By: #### P OCGLUC #### [facility] [address] [address] [address] Laila Castle Sodium [Moles/Vol] 136 mmol/L Normal 136-145 [facility] Comment on above: Performed By: #### P OCGLUC #### [facility] [address] [address] [address] Laila Castle Urea nitrogen [Mass/Vol] 14.0 mg/dL Normal 7.0-18.0 [facility] Comment on above: Performed By: #### P OCGLUC #### [facility] [address] [address] [address] Laila Castle Urea nitrogen/Creatinine [Mass ratio] 19.7 mg/mg Normal [facility] Comment on above: Performed By: #### P OCGLUC #### [facility] [address] [address] [address] Laila Castle XR CHEST 1 Von 11-09-2021 XR CHEST 1 V EXAM: XR CHEST 1 V HISTORY: Shortness of breath. COMPARISON: None. TECHNIQUE: AP portable upright view chest performed. FINDINGS: The trachea is midline. The cardiac silhouette is obscured. The pulmonary vasculature is prominent and there are interstitial infiltrates within the bilateral perihilar regions and at both lung bases, most consolidated within the left lower chest which is completely opacified. There is no pneumothorax. There is no acute osseous abnormality. The bony structures are osteopenic. IMPRESSION: Findings which in the right clinical setting can be associated with congestive heart failure. Correlation with clinical findings recommended to exclude an underlying pneumonia. Follow-up chest radiographs are also recommended to confirm complete resolution. Electronically authenticated by: BRIANNA LUZ Date: 2021-11-09 15:57 Normal [facility] Covid-19 PCR (CVDTBH)on 10-21 SARS-CoV-2 (COVID-19) RNA GLYNN+probe Ql (Unsp spec) Detected Critically abnormal NOT DETECTED [facility] Comment on above: Result Comment: This test is not yet approved or cleared by the [place] FDA. When there are no FDA-approved or cleared tests available, and other criteria are met, FDA can make tests available under an emergency access mechanism called an Emergency Use Authorization (EUA). The EUA for this test is supported by the [place] of Health and Human Service's (HHS's) declaration that circumstances exist to justify the emergency use of in vitro diagnostics for the detection and/or diagnosis of the virus that causes COVID-19. This EUA will remain in effect (meaning this test can be used) for the duration of the COVID-19 declaration justifying emergency of IVDs, unless it is terminated or revoked by FDA (after which the test may no longer be used). Performed By: #### C VDTB #### [facility] [address] [address] [address] Laila Castle Telephone Encounteron 2021 Paraprofessional Aide Authentication Interface Message Text Existing RX should have refills. Normal [facility] Telephone Encounteron 2021 Paraprofessional Aide Authentication Interface Message Text Sent pt mychart msg Normal [facility] Gogo[employer]in Authentication Interface Message Text Needs f/u visit Normal [facility] Cult,Funguson 09-16-2021 Cult,Fungus Specimen Description .SHOULDER RIGHT JOINT FLUID Culture NO GROWTH 31 DAYS Report Status FINAL 09/16/[address] [facility] Comment on above: Performed By: #### L ACTIC #### [facility] [address] [place] [address] Snow Ranger: Chriss Townsend MD CBC with Auto Differentialon 09-09-2021 Absolute Eos # 0.04 [facility] Immature Granulocyte 0.23 [facility] Absolute Lymph # 2.35 [facility] Haskell # 0.73 [facility] Basophils (Bld) [#/Vol] 0.05 10*3/uL [facility] Basophils/100 WBC (Bld) 1 % 0 - 2 % [facility] Eosinophils/100 WBC (Bld) 0 % Low 1 - 4 % [facility] Hematocrit (Bld) [Volume fraction] 38.1 % 36.3 - 47.1 % [facility] Hemoglobin (Bld) [Mass/Vol] 11.8 g/dL Low 11.9 - 15.1 g/dL [facility] Immature granulocytes/100 WBC (Bld) 2 % High 0 [facility] Interpretation and review of laboratory results Abnormal [facility] Lymphocytes/100 WBC (Bld) 24 % 24 - 43 % [facility] MCH (RBC) [Entitic mass] 29.7 pg 25.2 - 33.5 pg [facility] MCHC (RBC) [Mass/Vol] 31.0 g/dL 28.4 - 34.8 g/dL [facility] MCV (RBC) [Entitic vol] 96.0 fL 82.6 - 102.9 fL [facility] Monocytes/100 WBC (Bld) 7 % 3 - 12 % [facility] NRBC Automated 0.0 0.0 per 100 WBC [facility] Platelet distribution width (Bld) [Ratio] 16.2 % High 11.8 - 14.4 % [facility] Platelet mean volume (Bld) [Entitic vol] 9.9 fL 8.1 - 13.5 fL [facility] Platelets (Bld) [#/Vol] 234 10*3/uL [facility] RBC (Bld) [#/Vol] 3.97 10*6/uL 3.95 - 5.1 1 m/uL [facility] Segmented neutrophils/100 WBC (Bld) 66 % High 36 - 65 % [facility] Segs Absolute 6.58 [facility] WBC (Bld) [#/Vol] 10.0 10*3/uL [facility] Comprehensive Metabolic Pane markell 09-09-2021 Albumin [Mass/Vol] 4.1 g/dL 3.5 - 5.2 g/dL [facility] Albumin/Globulin [Mass ratio] 1.5 {ratio} [facility] ALP (Bld) [Catalytic activity/Vol] 146 U/L High 35 - 104 U/L [facility] ALT [Catalytic activity/Vol] 6 U/L 5 - 33 U/L [facility] Anion gap [Moles/Vol] 11 mmol/L 9 - 17 mmol/L [facility] AST [Catalytic activity/Vol] 25 U/L <32 [facility] Bilirubin [Mass/Vol] 0.31 mg/dL 0.3 - 1 .2 mg/dL [facility] Calcium [Mass/Vol] 10.4 mg/dL 8.6 - 10. 4 mg/dL [facility] Chloride [Moles/Vol] 101 mmol/L 98 - 10 7 mmol/L [facility] CO2 [Moles/Vol] 26 mmol/L 20 - 31 mmol/L [facility] Creatinine [Mass/Vol] 0.38 mg/dL Low 0.50 - 0.90 mg/dL [facility] Free PSA/Total PSA [Mass fraction] 6.8 g/dL 6.4 - 8.3 g/dL [facility] GFR >60 >60 mL/min [facility] GFR Non- >60 >60 mL/min [facility] Glucose [Mass/Vol] 74 mg/dL 70 - 99 mg/dL [facility] Interpretation and review of laboratory results Abnormal [facility] Potassium [Moles/Vol] 3.9 mmol/L 3.7 - 5.3 mmol/L [facility] Sodium [Moles/Vol] 138 mmol/L 135 - 144 mmol/L [facility] Urea nitrogen (BldV) [Mass/Vol] 10 mg/dL 8 - 23 mg/dL [facility] Urea nitrogen/Creatinine (Bld) [Mass ratio] 26 High [facility] Laboratory - Chemistry and C hemistry - challengeon 09-09-2021 GFR/1.73 sq M.predicted MDRD (S/P/Bld) [Vol rate/Area] [facility] Comment on above: Average GFR for 60-6 9 years old: 85 mL/min/1.73sq m Chronic Kidney Disease: <60 mL/min/1.73sq m Kidney failure: <15 mL/min/1.73sq m eGFR calculated using average adult body mass. Additional eGFR calculator available at: http://www.[employer]/multiple_crcl_2012.htm Stage 1: Some kidney damage normal GFR Stage 2: Mild kidney damage GFR 60-89 Stage 3: Moderate kidney damage GFR 30-59 Stage 4: Severe kidney damage GFR 15-29 Stage 5: Severe kidney damage GFR <15 ESRD - chronic treatment by dialysis or transplant CBC with Auto Differentialon 09-02-2021 Absolute Eos # <0.03 [place] [facility] Absolute Immature Granulocyte 0.49 High [facility] Absolute Lymph # 1.22 [place] [facility] Absolute Haskell # 0.78 [facility] Basophils (Bld) [#/Vol] 0.04 10*3/uL [facility] Basophils/100 WBC (Bld) 0 % 0 - 2 % [facility] Eosinophils/100 WBC (Bld) 0 % Low 1 - 4 % [facility] Hematocrit (Bld) [Volume fraction] 37.2 % 36.3 - 47.1 % [facility] Hemoglobin (Bld) [Mass/Vol] 11.1 g/dL Low 11.9 - 15.1 g/dL [facility] Immature granulocytes/100 WBC (Bld) 5 % High 0 [facility] Interpretation and review of laboratory results Abnormal [facility] Lymphocytes/100 WBC (Bld) 12 % Low 24 - 43 % [facility] MCH (RBC) [Entitic mass] 29.1 pg 25.2 - 33.5 pg [facility] MCHC (RBC) [Mass/Vol] 29.8 g/dL 28.4 - 34.8 g/dL [facility] MCV (RBC) [Entitic vol] 97.4 fL 82.6 - 102.9 fL [facility] Monocytes/100 WBC (Bld) 7 % 3 - 12 % [facility] NRBC Automated 0.0 0.0 per 100 WBC [facility] Platelet distribution width (Bld) [Ratio] 16.1 % High 11.8 - 14.4 % [facility] Platelet mean volume (Bld) [Entitic vol] 9.3 fL 8.1 - 13.5 fL [facility] Platelets (Bld) [#/Vol] 290 10*3/uL [facility] RBC (Bld) [#/Vol] 3.82 10*6/uL Low 3.95 - 5.1 1 m/uL [facility] Segmented neutrophils/100 WBC (Bld) 76 % High 36 - 65 % [facility] Segs Absolute 8.00 [facility] WBC (Bld) [#/Vol] 10.5 10*3/uL [facility] Comprehensive Metabolic Pane markell 09-02-2021 Albumin [Mass/Vol] 3.6 g/dL 3.5 - 5.2 g/dL [facility] Albumin/Globulin [Mass ratio] 1.2 {ratio} [facility] ALP (Bld) [Catalytic activity/Vol] 172 U/L High 35 - 104 U/L [facility] ALT [Catalytic activity/Vol] 7 U/L 5 - 33 U/L [facility] Anion gap [Moles/Vol] 9 mmol/L 9 - 17 mmol/L [facility] AST [Catalytic activity/Vol] 26 U/L <32 [facility] Bilirubin [Mass/Vol] 0.19 mg/dL Low 0.3 - 1 .2 mg/dL [facility] Calcium [Mass/Vol] 10.3 mg/dL 8.6 - 10. 4 mg/dL [facility] Chloride [Moles/Vol] 103 mmol/L 98 - 10 7 mmol/L [facility] CO2 [Moles/Vol] 25 mmol/L 20 - 31 mmol/L [facility] Creatinine [Mass/Vol] 0.41 mg/dL Low 0.50 - 0.90 mg/dL [facility] Free PSA/Total PSA [Mass fraction] 6.7 g/dL 6.4 - 8.3 g/dL [facility] GFR >60 >60 mL/min [facility] GFR Non- >60 >60 mL/min [facility] Glucose [Mass/Vol] 90 mg/dL 70 - 99 mg/dL [facility] Interpretation and review of laboratory results Abnormal [facility] Potassium [Moles/Vol] 3.8 mmol/L 3.7 - 5.3 mmol/L [facility] Sodium [Moles/Vol] 137 mmol/L 135 - 144 mmol/L [facility] Urea nitrogen (BldV) [Mass/Vol] 14 mg/dL 8 - 23 mg/dL [facility] Urea nitrogen/Creatinine (Bld) [Mass ratio] 34 High [facility] Laboratory - Chemistry and C hemistry - challengeon 09-02-2021 GFR/1.73 sq M.predicted MDRD (S/P/Bld) [Vol rate/Area] [facility] Comment on above: Average GFR for 60-6 9 years old: 85 mL/min/1.73sq m Chronic Kidney Disease: <60 mL/min/1.73sq m Kidney failure: <15 mL/min/1.73sq m eGFR calculated using average adult body mass. Additional eGFR calculator available at: http://www.Rotten Tomatoes/multiple_crcl_2012.htm Stage 1: Some kidney damage normal GFR Stage 2: Mild kidney damage GFR 60-89 Stage 3: Moderate kidney damage GFR 30-59 Stage 4: Severe kidney damage GFR 15-29 Stage 5: Severe kidney damage GFR <15 ESRD - chronic treatment by dialysis or transplant CBC with Auto Differentialon 08-26-2021 Absolute Eos # <0.03 [place] [facility] Absolute Immature Granulocyte 0.30 [facility] Absolute Lymph # 1.07 Low [facility] Absolute Haskell # 0.34 [facility] Basophils (Bld) [#/Vol] 10*3/uL [facility] Basophils/100 WBC (Bld) 0 % 0 - 2 % [facility] Eosinophils/100 WBC (Bld) 0 % Low 1 - 4 % [facility] Hematocrit (Bld) [Volume fraction] 33.9 % Low 36.3 - 47.1 % [facility] Hemoglobin (Bld) [Mass/Vol] 10.7 g/dL Low 11.9 - 15.1 g/dL [facility] Immature granulocytes/100 WBC (Bld) 3 % High 0 [facility] Interpretation and review of laboratory results Abnormal [facility] Lymphocytes/100 WBC (Bld) 11 % Low 24 - 43 % [facility] MCH (RBC) [Entitic mass] 29.6 pg 25.2 - 33.5 pg [facility] MCHC (RBC) [Mass/Vol] 31.6 g/dL 28.4 - 34.8 g/dL [facility] MCV (RBC) [Entitic vol] 93.9 fL 82.6 - 102.9 fL [facility] Monocytes/100 WBC (Bld) 3 % 3 - 12 % [facility] NRBC Automated 0.2 High 0.0 per 100 WBC [facility] Platelet distribution width (Bld) [Ratio] 15.1 % High 11.8 - 14.4 % [facility] Platelet mean volume (Bld) [Entitic vol] 9.3 fL 8.1 - 13.5 fL [facility] Platelets (Bld) [#/Vol] 423 10*3/uL [facility] RBC (Bld) [#/Vol] 3.61 10*6/uL Low 3.95 - 5.1 1 m/uL [facility] Segmented neutrophils/100 WBC (Bld) 83 % High 36 - 65 % [facility] Segs Absolute 8.14 High [facility] WBC (Bld) [#/Vol] 9.9 10*3/uL [facility] Comprehensive Metabolic Pane markell 08-26-2021 Albumin [Mass/Vol] 3.1 g/dL Low 3.5 - 5.2 g/dL [facility] Albumin/Globulin [Mass ratio] 1.0 {ratio} [facility] ALP (Bld) [Catalytic activity/Vol] 166 U/L High 35 - 104 U/L [facility] ALT [Catalytic activity/Vol] U/L Low 5 - 33 U/L [facility] Anion gap [Moles/Vol] 7 mmol/L Low 9 - 17 mmol/L [facility] AST [Catalytic activity/Vol] 21 U/L <32 [facility] Bilirubin [Mass/Vol] 0.24 mg/dL Low 0.3 - 1 .2 mg/dL [facility] Calcium [Mass/Vol] 9.8 mg/dL 8.6 - 10. 4 mg/dL [facility] Chloride [Moles/Vol] 100 mmol/L 98 - 10 7 mmol/L [facility] CO2 [Moles/Vol] 30 mmol/L 20 - 31 mmol/L [facility] Creatinine [Mass/Vol] 0.34 mg/dL Low 0.50 - 0.90 mg/dL [facility] Free PSA/Total PSA [Mass fraction] 6.3 g/dL Low 6.4 - 8.3 g/dL [facility] GFR >60 >60 mL/min [facility] GFR Non- >60 >60 mL/min [facility] Glucose [Mass/Vol] 104 mg/dL High 70 - 99 mg/dL [facility] Interpretation and review of laboratory results Abnormal [facility] Potassium [Moles/Vol] 3.9 mmol/L 3.7 - 5.3 mmol/L [facility] Sodium [Moles/Vol] 137 mmol/L 135 - 144 mmol/L [facility] Urea nitrogen (BldV) [Mass/Vol] 7 mg/dL Low 8 - 23 mg/dL [facility] Urea nitrogen/Creatinine (Bld) [Mass ratio] 21 High [facility] Laboratory - Chemistry and C hemistry - challengeon 08-26-2021 GFR/1.73 sq M.predicted MDRD (S/P/Bld) [Vol rate/Area] [facility] Comment on above: Average GFR for 60-6 9 years old: 85 mL/min/1.73sq m Chronic Kidney Disease: <60 mL/min/1.73sq m Kidney failure: <15 mL/min/1.73sq m eGFR calculated using average adult body mass. Additional eGFR calculator available at: http://www.Rotten Tomatoes/multiple_crcl_2012.htm Stage 1: Some kidney damage normal GFR Stage 2: Mild kidney damage GFR 60-89 Stage 3: Moderate kidney damage GFR 30-59 Stage 4: Severe kidney damage GFR 15-29 Stage 5: Severe kidney damage GFR <15 ESRD - chronic treatment by dialysis or transplant Basic Metab w/rfx MGon 08-21 Potassium [Moles/Vol] 3.0 mmol/L Low 3.7-5.3 [facility] Comment on above: Performed By: #### C OVRB #### [facility] [address] [place] [address] Snow Ranger: Chriss Townsend MD (cont.) [facility] Comment on above: Result Comment: Aver age GFR for 60-69 years old: 85 mL/min/1.73sq m Chronic Kidney Disease: <60 mL/min/1.73sq m Kidney failure: <15 mL/min/1.73sq m eGFR calculated using average adult body mass. Additional eGFR calculator available at: http://www.Rotten Tomatoes/multiple_crcl_2012.htm Performed By: #### C OVRB #### [address] [address] Snow Ranger: Chriss Townsend MD Anion gap [Moles/Vol] 13 mmol/L Normal 9-17 [facility] Comment on above: Performed By: #### C OVRB #### [facility] [address] [place] [address] Snow Ranger: Chriss Townsend MD Calcium [Mass/Vol] 8.5 mg/dL Low 8.6-10.[address] [facility] Comment on above: Performed By: #### C OVRB #### [facility] [address] [place] [address] [id number] Snow Ranger: Chriss Townsend MD Chloride [Moles/Vol] 103 mmol/L Normal 98-107 [facility] Comment on above: Performed By: #### C OVRB #### [address] [address] Snow Ranger: Chriss Townsend MD CO2 [Moles/Vol] 23 mmol/L Normal 20-[address] [facility] Comment on above: Performed By: #### C OVRB #### [address] [address] Snow Ranger: Chriss Townsend MD Creatinine [Mass/Vol] 0.28 mg/dL Low 0.50-0.90 [facility] Comment on above: Performed By: #### C OVRB #### [address] [address] Snow Ranger: Chriss Townsend MD GFR, Amer >60 Normal >60 [facility] Comment on above: Performed By: #### C OVRB #### [address] [address] Snow Ranger: Chriss Townsend MD GFR,non Amer >60 Normal >60 [facility] Comment on above: Performed By: #### C OVRB #### [address] [address] Snow Ranger: Chriss Townsend MD Glucose [Mass/Vol] 79 mg/dL Normal 70-[address] [facility] Comment on above: Performed By: #### C OVRB #### [address] [address] Snow Ranger: Chriss Townsend MD Sodium [Moles/Vol] 139 mmol/L Normal 135-[address] [facility] Comment on above: Performed By: #### C OVRB #### [address] [address] Snow Ranger: Chriss Townsend MD Urea nitrogen [Mass/Vol] 5 mg/dL Low 8-[address] [facility] Comment on above: Performed By: #### C OVRB #### [facility] [address] [phone] Snow Ranger: Chriss Townsend MD Basic Metabolic Panel w/ Ref sujatha to MGon 08-21-2021 Anion gap [Moles/Vol] 13 mmol/L 9 - 17 mmol/L [facility] [employer] Calcium [Mass/Vol] 8.5 mg/dL Low 8.6 - 10. 4 mg/dL [facility] [employer] Chloride [Moles/Vol] 103 mmol/L 98 - 10 7 mmol/L [facility] [employer] CO2 [Moles/Vol] 23 mmol/L 20 - 31 mmol/L [facility] Creatinine [Mass/Vol] 0.28 mg/dL Low 0.50 - 0.90 mg/dL [facility] GFR >60 >60 mL/min [facility] GFR Non- >60 >60 mL/min [facility] GFR/1.73 sq M.predicted MDRD (S/P/Bld) [Vol rate/Area] [facility] Comment on above: Average GFR for 60-6 9 years old: 85 mL/min/1.73sq m Chronic Kidney Disease: <60 mL/min/1.73sq m Kidney failure: <15 mL/min/1.73sq m eGFR calculated using average adult body mass. Additional eGFR calculator available at: http://www.VoluBill.Zoutons/multiple_crcl_2011.htm Glucose [Mass/Vol] 79 mg/dL 70 - 99 mg/dL [facility] Interpretation and review of laboratory results Abnormal [facility] Potassium [Moles/Vol] 3.0 mmol/L Low 3.7 - 5.3 mmol/L [facility] Sodium [Moles/Vol] 139 mmol/L 135 - 144 mmol/L [facility] Urea nitrogen (BldV) [Mass/Vol] 5 mg/dL Low 8 - 23 mg/dL [facility] CBC with Auto Differentialon 08-21-2021 Absolute Eos # 0.23 [facility] Absolute Immature Granulocyte 0.53 High [facility] Absolute Lymph # 0.83 Low [facility] Absolute Haskell # 0.15 [facility] Basophils (Bld) [#/Vol] 0.00 10*3/uL [facility] Basophils/100 WBC (Bld) 0 % 0 - 2 % [facility] Eosinophils/100 WBC (Bld) 3 % 1 - 4 % [facility] Hematocrit (Bld) [Volume fraction] 32.9 % Low 36.3 - 47.1 % [facility] Hemoglobin.gastrointe stinal spec 1 Ql (Stl) 10.6 g/dL Low 11.9 - 15.1 g/dL [facility] Immature granulocytes/100 WBC (Bld) 7 % High 0 [facility] Interpretation and review of laboratory results Abnormal [facility] Lymphocytes/100 WBC (Bld) 11 % Low 24 - 44 % [facility] MCH (RBC) [Entitic mass] 29.4 pg 25.2 - 33.5 pg [facility] MCHC (RBC) [Mass/Vol] 32.2 g/dL 28.4 - 34.8 g/dL [facility] MCV (RBC) [Entitic vol] 91.1 fL 82.6 - 102.9 fL [facility] Monocytes/100 WBC (Bld) 2 % 1 - 7 % [facility] Morphology Demetrio (Bld) [Interp] ANISOCYTOSIS PRESENT [facility] Morphology Demetrio (Bld) [Interp] 1+ POLYCHROMASIA [facility] NRBC Automated 0.0 0.0 per 100 WBC [facility] Platelet distribution width (Bld) [Ratio] 14.8 % High 11.8 - 14.4 % [facility] Platelet mean volume (Bld) [Entitic vol] 9.7 fL 8.1 - 13.5 fL [facility] Platelets (Bld) [#/Vol] 203 10*3/uL [facility] RBC (Bld) [#/Vol] 3.61 10*6/uL Low 3.95 - 5.1 1 m/uL [facility] RBC (Bld) [#/Vol] ANISOCYTOSIS PRESENT [facility] Segmented neutrophils/100 WBC (Bld) 77 % High 36 - 66 % [facility] Segs Absolute 5.76 [facility] WBC (Bld) [#/Vol] 7.5 10*3/uL [facility] CBC with Diffon 08-21-2021 Abs. Basophil 0.00 k/uL Normal 0.0-0.[address] [facility] Comment on above: Performed By: #### C OVRB #### [address] [address] Snow Ranger: Chriss Townsend MD Abs.Imm.Granulocyte 0.53 k/uL High 0.00-0.[address] [facility] Comment on above: Performed By: #### C OVRB #### [address] [address] Snow Ranger: Chriss Townsend MD Abs.Neutrophil (Seg) 5.76 k/uL Normal 1.8-7.7 [facility] Comment on above: Performed By: #### C OVRB #### [address] [address] Snow Ranger: Chriss oTwnsend MD Basophils/100 WBC (Bld) 0 % Normal 0-[address] [facility] Comment on above: Performed By: #### C OVRB #### [address] [address] Snow Ranger: Chriss Townsend MD Eosinophils (Bld) [#/Vol] 0.23 10*3/uL Normal 0.0-0.[address] [facility] Comment on above: Performed By: #### C OVRB #### [address] [address] Snow Ranger: Chriss Townsend MD Eosinophils/100 WBC (Bld) 3 % Normal 1-[address] [facility] Comment on above: Performed By: #### C OVRB #### [address] [address] Snow Ranger: Chriss Townsend MD Immature granulocytes/100 WBC (Bld) 7 % High [address] [facility] Comment on above: Performed By: #### C OVRB #### [address] [address] Snow Ranger: Chriss Townsend MD Lymphocytes (Bld) [#/Vol] 0.83 10*3/uL Low 1.0-4.[address] [facility] Comment on above: Performed By: #### C OVRB #### [address] [address] Snow Ranger: Chriss Townsend MD Lymphocytes/100 WBC (Bld) 11 % Low 24-[address] [facility] Comment on above: Performed By: #### C OVRB #### [address] [address] Snow Ranger: Chriss Townsend MD Monocytes (Bld) [#/Vol] 0.15 10*3/uL Normal 0.1-0.[address] [facility] Comment on above: Performed By: #### C OVRB #### [address] [address] Snow Ranger: Chriss Townsend MD Monocytes/100 WBC (Bld) 2 % Normal 1-[address] [facility] Comment on above: Performed By: #### C OVRB #### [address] [address] Snow Ranger: Chriss Townsend MD Morphology Demetrio (Bld) [Interp] ANISOCYTOSIS PRESENT Normal [facility] Comment on above: Result Comment: 1+ POLYCHROMASIA Performed By: #### C OVRB #### [address] [address] Snow Ranger: Chriss Townsend MD Neutrophil (Seg) 77 % High 36-66 [facility] Comment on above: Performed By: #### C OVRB #### [address] [address] Snow Ranger: Chriss Townsend MD Erythrocyte distribution width (RBC) [Ratio] 14.8 % High 11.8-14.[address] [facility] Comment on above: Performed By: #### C OVRB #### [address] [address] Snow Ranger: Chriss Townsend MD Hematocrit (Bld) [Volume fraction] 32.9 % Low 36.3-47.[address] [facility] Comment on above: Performed By: #### C OVRB #### [address] [address] Snow Ranger: Chriss Townsend MD Hemoglobin (Bld) [Mass/Vol] 10.6 g/dL Low 11.9-15.[address] [facility] Comment on above: Performed By: #### C OVRB #### [address] [address] Snow Ranger: Chriss Townsend MD MCH (RBC) [Entitic mass] 29.4 pg Normal 25.2-33.[address] [facility] Comment on above: Performed By: #### C OVRB #### [address] [address] Snow Ranger: Chriss Townsend MD MCHC (RBC) [Mass/Vol] 32.2 g/dL Normal 28.4-34.8 [facility] Comment on above: Performed By: #### C OVRB #### [address] [address] Snow Ranger: Chriss Townsend MD MCV (RBC) [Entitic vol] 91.1 fL Normal 82.6-102.[address] [facility] Comment on above: Performed By: #### C OVRB #### [address] [address] Snow Ranger: Chriss Townsend MD NRBC Automated 0.0 per 100 WBC Normal 0.[address] [facility] Comment on above: Performed By: #### C OVRB #### [address] [address] Snow Ranger: Chriss Townsend MD Platelet mean volume (Bld) [Entitic vol] 9.7 fL Normal 8.1-13.[address] [facility] Comment on above: Performed By: #### C OVRB #### [address] [address] Snow Ranger: Chriss Townsend MD Platelets (Bld) [#/Vol] 203 10*3/uL Normal 138-[address] [facility] Comment on above: Performed By: #### C OVRB #### [address] [address] Snow Ranger: Chriss Townsend MD RBC (Bld) [#/Vol] 3.61 10*6/uL Low 3.95-5.[address] [facility] Comment on above: Performed By: #### C OVRB #### [address] [address] Snow Ranger: Chriss Townsend MD RBC morphology finding Nom (Bld) ANISOCYTOSIS PRESENT Normal [facility] Comment on above: Performed By: #### C OVRB #### [address] [address] Snow Ranger: Chriss Townsend MD WBC (Bld) [#/Vol] 7.5 10*3/uL Normal 3.5-11.[address] [facility] Comment on above: Performed By: #### C OVRB #### [facility] [address] [place], [place] [phone] Snow Ranger: Chriss Townsend MD Cult,Bloodon 08-21-2021 Cult,Blood Specimen Description .BLOOD Special Requests L WRIST 1 ML Culture NO GROWTH 5 DAYS Report Status FINAL 08/21/2021 [facility] Comment on above: Performed By: #### C RP CDP, SED #### [employer] [place], [place] [id number] Snow Ranger: Chriss Townsend MD Cult,Blood Specimen Description .BLOOD Culture NO GROWTH 5 DAYS Report Status FINAL 08/21/2021 [facility] Comment on above: Performed By: #### C RP CDP, SED #### [facility] [address] [place] [address] [id number] Snow Ranger: Chriss Townsend MD Culture, Blood 1on 2 Bacteria identified Cx Nom (Unsp spec) NO GROWTH 5 DAYS [facility] [employer] Special Requests L WRIST 1 ML [facility] [employer] Specimen Description .BLOOD [facility] Bacteria identified Cx Nom (Unsp spec) NO GROWTH 5 DAYS [facility] [employer] Specimen Description .BLOOD [facility] [employer] Magnesiumon 08-21-2021 Magnesium [Mass/Vol] 1.8 mg/dL Normal 1.6-2.6 [facility] Comment on above: Performed By: #### C OVRB #### 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 Blood draws. Peripheral vein preservation. Safely deliver vesicant medications. Risks include failure to obtain the desired result(s) of the procedure, discomfort, injury, the need for additional procedures/therapies, permanent loss of body function, bleeding/bruising, arterial puncture, air embolism, nerve damage, hematoma, phlebitis, catheter fracture/rupture, catheter embolism, catheter occlusion, catheter migration, catheter site infection, unintentional/accidental removal of catheter, bloodstream infection, infiltration, cardiac arrhythmia, vein thrombosis, difficult catheter removal. Alternatives discussed including centrally inserted central catheter, as well as less invasive procedures such as multiple peripheral IVs, extended dwell catheters and midline placements. Consent signed and obtained by proceduralist. Prescribed therapy: Nafcillin IV X 6 weeks Product type: 4.5fr single lumen AMAT Arrow PICC History/Labs/Allergies Reviewed Placed By: Gabriela Douglas RN IV Team Time out Performed using [employer] Lot #: [id number] Expiration date: 07/20/2022 Catheter size: 4.5 slovak Total length: 45cm Total length inserted: 45cm External catheter length: 1cm Insertion site: Left brachial vein Number of attempts: 1 Estimated blood loss: 1 ml Placement verified by: positive blood return & flushes easily Special equipment used: VPS ECG Tip tracker system, ultrasound & micro-introducer technique Catheter securement: statlock Dressing applied: Tegaderm CHG Lidocaine administered intradermally conc.1%: 2 mL PICC education: [ x ] Discussed with patient/Family or POA prior to procedure. Risks and Benefits along with reason for procedure were discussed and teaching was reinforced with an education handout on catheter insertion. [facility] FAQ Catheter Associated Blood Stream Infections and [facility] [id number] REV. 10/02 Nursing and Booklet left at bedside or in chart. Patient (Family or POA) acknowledged understanding of information taught and agreed to procedure. [employer] Phone: Tip Confirmation System (TCS ) and/ or Chest Xray for tip confirmationon 08-21-2021 [employer] Phone: Basic Metab w/rfx MGon 08-20 Potassium [Moles/Vol] 2.8 mmol/L Critically low 3.7-5.[address] [facility] Comment on above: Performed By: #### C RP, CDP, SED #### [employer] [address] [place] [id number] Snow Ranger: Chriss Townsend MD (cont.) Normal [facility] Comment on above: Result Comment: Aver age GFR for 60-69 years old: 85 mL/min/1.73sq m Chronic Kidney Disease: <60 mL/min/1.73sq m Kidney failure: <15 mL/min/1.73sq m eGFR calculated using average adult body mass. Additional eGFR calculator available at: http://www.Rotten Tomatoes/multiple_crcl_2012.htm Performed By: #### C RP, CDP, SED #### [address] [address] Snow Ranger: Chriss Townsend MD Anion gap [Moles/Vol] 11 mmol/L Normal 9-17 [facility] Comment on above: Performed By: #### C RP, CDP, SED #### [address] [address] Snow Ranger: Chriss Townsend MD Calcium [Mass/Vol] 8.8 mg/dL Normal 8.6-10.[address] [facility] Comment on above: Performed By: #### C RP, CDP, SED #### [facility] [address] [place] [address] 51083 Snow Ranger: Chriss Townsend MD Chloride [Moles/Vol] 103 mmol/L Normal 98-107 [facility] Comment on above: Performed By: #### C RP, CDP, SED #### [facility] [address] [place] [address] 66622 Snow Ranger: Chriss Townsend MD CO2 [Moles/Vol] 24 mmol/L Normal 20-[address] [facility] Comment on above: Performed By: #### C RP, CDP, SED #### [facility] [address] [place] [address] 34312 Snow Ranger: Chriss Townsend MD Creatinine [Mass/Vol] 0.34 mg/dL Low 0.50-0.90 [facility] Comment on above: Performed By: #### C RP, CDP, SED #### [facility] [address] [place] [address] 35311 Snow Ranger: Chriss Townsend MD GFR, Amer >60 Normal >60 [facility] Comment on above: Performed By: #### C RP, CDP, SED #### [facility] [address] [place] [address] 49469 Snow Ranger: Chriss Townsend MD GFR,non Amer >60 Normal >60 [facility] Comment on above: Performed By: #### C RP, CDP, SED #### [facility] [address] [place] [address] 79225 Snow Ranger: Chriss Townsend MD Glucose [Mass/Vol] 87 mg/dL Normal 70-[address] [facility] Comment on above: Performed By: #### C RP, CDP, SED #### [facility] [address] [place] [address] 88746 Snow Ranger: Chriss Townsend MD Sodium [Moles/Vol] 138 mmol/L Normal 135-[address] [facility] Comment on above: Performed By: #### C RP, CDP, SED #### [facility] [address] [place] [address] 57050 Snow Ranger: Chriss Townsend MD Urea nitrogen [Mass/Vol] 7 mg/dL Low 8-[address] [facility] Comment on above: Performed By: #### C RP, CDP, SED #### [facility] [address] [place] [address] 91875 Snow Ranger: Chriss Townsend MD Basic Metabolic Panel w/ Ref sujatha to MG 08-20-2021 Anion gap [Moles/Vol] 11 mmol/L 9 - 17 mmol/L [facility] Calcium [Mass/Vol] 8.8 mg/dL 8.6 - 10. 4 mg/dL [facility] Chloride [Moles/Vol] 103 mmol/L 98 - 10 7 mmol/L [facility] CO2 [Moles/Vol] 24 mmol/L 20 - 31 mmol/L [facility] Creatinine [Mass/Vol] 0.34 mg/dL Low 0.50 - 0.90 mg/dL [facility] GFR >60 >60 mL/min [facility] GFR Non- >60 >60 mL/min [facility] GFR/1.73 sq M.predicted MDRD (S/P/Bld) [Vol rate/Area] [facility] Comment on above: Average GFR for 60-6 9 years old: 85 mL/min/1.73sq m Chronic Kidney Disease: <60 mL/min/1.73sq m Kidney failure: <15 mL/min/1.73sq m eGFR calculated using average adult body mass. Additional eGFR calculator available at: http://www.Rotten Tomatoes/multiple_crcl_2011.htm Glucose [Mass/Vol] 87 mg/dL 70 - 99 mg/dL [facility] Interpretation and review of laboratory results Abnormal [facility] Potassium [Moles/Vol] 2.8 mmol/L Critically low 3.7 - 5.3 mmol/L [facility] Sodium [Moles/Vol] 138 mmol/L 135 - 144 mmol/L [facility] Urea nitrogen (BldV) [Mass/Vol] 7 mg/dL Low 8 - 23 mg/dL [facility] C-Reactive Proteinon 08-20- 022 CRP [Mass/Vol] 151.9 mg/L High 0.0-5.[address] [facility] Comment on above: Performed By: #### C RP, CDP, SED #### [facility] [address] [place] [address] Snow Ranger: Chriss Townsend MD CRP [Mass/Vol] 151.9 mg/L High 0.0 - 5.0 mg/L [facility] Interpretation and review of laboratory results Abnormal [facility] CBC with Auto Differentialon 08-20-2021 Absolute Eos # 0.00 [facility] Absolute Immature Granulocyte 0.00 [facility] Absolute Lymph # 0.64 Low [facility] Absolute Haskell # 0.37 [facility] Basophils (Bld) [#/Vol] 0.00 10*3/uL [facility] Basophils/100 WBC (Bld) 0 % 0 - 2 % [facility] Eosinophils/100 WBC (Bld) 0 % Low 1 - 4 % [facility] Hematocrit (Bld) [Volume fraction] 33.6 % Low 36.3 - 47.1 % [facility] Hemoglobin.gastrointe stinal spec 1 Ql (Stl) 10.8 g/dL Low 11.9 - 15.1 g/dL [facility] Immature granulocytes/100 WBC (Bld) 0 % 0 [facility] Interpretation and review of laboratory results Abnormal [facility] Lymphocytes/100 WBC (Bld) 7 % Low 24 - 44 % [facility] MCH (RBC) [Entitic mass] 29.9 pg 25.2 - 33.5 pg [facility] MCHC (RBC) [Mass/Vol] 32.1 g/dL 28.4 - 34.8 g/dL [facility] MCV (RBC) [Entitic vol] 93.1 fL 82.6 - 102.9 fL [facility] Monocytes/100 WBC (Bld) 4 % 1 - 7 % [facility] Morphology Demetrio (Bld) [Interp] ANISOCYTOSIS PRESENT [facility] NRBC Automated 0.0 0.0 per 100 WBC [facility] Platelet distribution width (Bld) [Ratio] 14.6 % High 11.8 - 14.4 % [facility] Platelet mean volume (Bld) [Entitic vol] 9.6 fL 8.1 - 13.5 fL [facility] Platelets (Bld) [#/Vol] 169 10*3/uL [facility] RBC (Bld) [#/Vol] 3.61 10*6/uL Low 3.95 - 5.1 1 m/uL [facility] Segmented neutrophils/100 WBC (Bld) 89 % High 36 - 66 % [facility] Segs Absolute 8.19 High [facility] WBC (Bld) [#/Vol] 9.2 10*3/uL [facility] CBC with Diffon 08-20-2021 Abs. Basophil 0.00 k/uL Normal 0.0-0.[address] [facility] Comment on above: Performed By: #### C RP, CDP, SED #### [facility] [address] [place] [address] 28022 Snow Ranger: Chriss Townsend MD Abs.Imm.Granulocyte 0.00 k/uL Normal 0.00-0.[address] [facility] Comment on above: Performed By: #### C RP, CDP, SED #### [facility] [address] [place] [address] 02475 Snow Ranger: Chriss Townsend MD Abs.Neutrophil (Seg) 8.19 k/uL High 1.8-7.7 [facility] Comment on above: Performed By: #### C RP, CDP, SED #### [facility] [address] [place] [address] 41823 Snow Ranger: Chriss Townsend MD Basophils/100 WBC (Bld) 0 % Normal 0-[address] [facility] Comment on above: Performed By: #### C RP, CDP, SED #### [facility] [address] [place] [address] 42581 Snow Ranger: Chriss Townsend MD Eosinophils (Bld) [#/Vol] 0.00 10*3/uL Normal 0.0-0.[address] [facility] Comment on above: Performed By: #### C RP, CDP, SED #### [facility] [address] [place] [address] 26626 Snow Ranger: Chriss Townsend MD Eosinophils/100 WBC (Bld) 0 % Low 1-[address] [facility] Comment on above: Performed By: #### C RP, CDP, SED #### [address] [address] Snow Ranger: Chriss Townsend MD Immature granulocytes/100 WBC (Bld) 0 % Normal [address] [facility] Comment on above: Performed By: #### C RP, CDP, SED #### [place] [address] Snow Ranger: Chriss Townsend MD Lymphocytes (Bld) [#/Vol] 0.64 10*3/uL Low 1.0-4.[address] [facility] Comment on above: Performed By: #### C RP, CDP, SED #### [address] [address] Snow Ranger: Chriss Townsend MD Lymphocytes/100 WBC (Bld) 7 % Low 24-[address] [facility] Comment on above: Performed By: #### C RP, CDP, SED #### [place] [address] Snow Ranger: Chriss Townsend MD Monocytes (Bld) [#/Vol] 0.37 10*3/uL Normal 0.1-0.[address] [facility] Comment on above: Performed By: #### C RP, CDP, SED #### [place] [address] Snow Ranger: Chriss Townsend MD Monocytes/100 WBC (Bld) 4 % Normal 1-[address] [facility] Comment on above: Performed By: #### C RP, CDP, SED #### [address] [address] Snow Ranger: Chriss Townsend MD Morphology Demetrio (Bld) [Interp] ANISOCYTOSIS PRESENT Normal [facility] Comment on above: Performed By: #### C RP, CDP, SED #### [address] [place] [address] Snow Ranger: Chriss Townsend MD Neutrophil (Seg) 89 % High 36-66 [facility] Comment on above: Performed By: #### C RP, CDP, SED #### [address] [address] Snow Ranger: Chriss Townsend MD Erythrocyte distribution width (RBC) [Ratio] 14.6 % High 11.8-14.[address] [facility] Comment on above: Performed By: #### C RP, CDP, SED #### [facility] [address] [place] [address] 13155 Snow Ranger: Chriss Townsend MD Hematocrit (Bld) [Volume fraction] 33.6 % Low 36.3-47.[address] [facility] Comment on above: Performed By: #### C RP, CDP, SED #### [facility] [address] [place] [address] 86875 Snow Ranger: Chriss Townsend MD Hemoglobin (Bld) [Mass/Vol] 10.8 g/dL Low 11.9-15.[address] [facility] Comment on above: Performed By: #### C RP, CDP, SED #### [facility] [address] [place] [address] 31390 Snow Ranger: Chriss Townsend MD MCH (RBC) [Entitic mass] 29.9 pg Normal 25.2-33.[address] [facility] Comment on above: Performed By: #### C RP, CDP, SED #### [facility] [address] [place] [address] 48256 Snow Ranger: Chriss Townsend MD MCHC (RBC) [Mass/Vol] 32.1 g/dL Normal 28.4-34.8 [facility] Comment on above: Performed By: #### C RP, CDP, SED #### [facility] [address] [place] [address] 89106 Snow Ranger: Chriss Townsend MD MCV (RBC) [Entitic vol] 93.1 fL Normal 82.6-102.[address] [facility] Comment on above: Performed By: #### C RP, CDP, SED #### [address] [address] Snow Ranger: Chriss Townsend MD NRBC Automated 0.0 per 100 WBC Normal 0.[address] [facility] Comment on above: Performed By: #### C RP, CDP, SED #### [address] [address] Snow Ranger: Chriss Townsend MD Platelet mean volume (Bld) [Entitic vol] 9.6 fL Normal 8.1-13.[address] [facility] Comment on above: Performed By: #### C RP, CDP, SED #### [address] [address] Snow Ranger: Chriss Townsend MD Platelets (Bld) [#/Vol] 169 10*3/uL Normal 138-[address] [facility] Comment on above: Performed By: #### C RP, CDP, SED #### [address] [address] Snow Ranger: Chriss Townsend MD RBC (Bld) [#/Vol] 3.61 10*6/uL Low 3.95-5.[address] [facility] Comment on above: Performed By: #### C RP, CDP, SED #### [address] [address] Snow Ranger: Chriss Townsend MD WBC (Bld) [#/Vol] 9.2 10*3/uL Normal 3.5-11.[address] [facility] Comment on above: Performed By: #### C RP, CDP, SED #### [address] [address] Snow Ranger: Chriss Townsend MD CT RADIUS ULNA RIGHT W CONTR Stephenie 08-20-2021 CT RADIUS ULNA RIGHT W CONTRAST EXAMINATION: CT OF THE RIGHT FOREARM WITH AND WITHOUT CONTRAST 08/14/2021 9:02 pm TECHNIQUE: CT of the right forearm was performed with and without the administration of intravenous contrast. Multiplanar reformatted images are provided for review. Automated exposure control, iterative reconstruction, and/or weight based adjustment of the mA/kV was utilized to reduce the radiation dose to as low as reasonably achievable. COMPARISON: None HISTORY ORDERING SYSTEM PROVIDED HISTORY: concern for nec fasc TECHNOLOGIST PROVIDED HISTORY: concern for nec fasc FINDINGS: The examination is significantly limited due to patient body habitus and the positioning of the forearm onto the abdomen. Portions of the elbow were excluded from the exam. Subcutaneous edema is noted about the forearm most pronounced posteriorly. A defined fluid collection is not identified. Evaluation of the forearm muscular compartments is limited. There is no evidence of acute fracture or dislocation. No soft tissue gas is identified. Consolidation is noted at the right posterior lung base. IMPRESSION: Very limited exam. Subcutaneous edema about the forearm may reflect cellulitis. No defined fluid collection or soft tissue gas is identified. No acute osseous abnormality. Consolidation at the dependent posterior right lung base. Interpreted by: Jett Dumont MD Signed by: Jett Dumont MD 08/20/21 Final result Normal [facility] Very limited exam. Subcutaneous edema about the forearm may reflect cellulitis. No defined fluid collection or soft tissue gas is identified. No acute osseous abnormality. Consolidation at the dependent posterior right lung base. [facility] RIS CONSOLIDATED EXAMINATION: CT OF THE RIGHT FOREARM WITH AND WITHOUT CONTRAST 08/14/2021 9:02 pm TECHNIQUE: CT of the right forearm was performed with and without the administration of intravenous contrast. Multiplanar reformatted images are provided for review. Automated exposure control, iterative reconstruction, and/or weight based adjustment of the mA/kV was utilized to reduce the radiation dose to as low as reasonably achievable. COMPARISON: None HISTORY ORDERING SYSTEM PROVIDED HISTORY: concern for nec fasc TECHNOLOGIST PROVIDED HISTORY: concern for nec fasc FINDINGS: The examination is significantly limited due to patient body habitus and the positioning of the forearm onto the abdomen. Portions of the elbow were excluded from the exam. Subcutaneous edema is noted about the forearm most pronounced posteriorly. A defined fluid collection is not identified. Evaluation of the forearm muscular compartments is limited. There is no evidence of acute fracture or dislocation. No soft tissue gas is identified. Consolidation is noted at the right posterior lung base. [facility] RIS CONSOLIDATED Jett Dumont MD - 08/20/2021 EXAMINATION: CT OF THE RIGHT FOREARM WITH AND WITHOUT CONTRAST 08/14/2021 9:02 pm TECHNIQUE: CT of the right forearm was performed with and without the administration of intravenous contrast. Multiplanar reformatted images are provided for review. Automated exposure control, iterative reconstruction, and/or weight based adjustment of the mA/kV was utilized to reduce the radiation dose to as low as reasonably achievable. COMPARISON: None HISTORY ORDERING SYSTEM PROVIDED HISTORY: concern for nec fasc TECHNOLOGIST PROVIDED HISTORY: concern for nec fasc FINDINGS: The examination is significantly limited due to patient body habitus and the positioning of the forearm onto the abdomen. Portions of the elbow were excluded from the exam. Subcutaneous edema is noted about the forearm most pronounced posteriorly. A defined fluid collection is not identified. Evaluation of the forearm muscular compartments is limited. There is no evidence of acute fracture or dislocation. No soft tissue gas is identified. Consolidation is noted at the right posterior lung base. IMPRESSION: Very limited exam. Subcutaneous edema about the forearm may reflect cellulitis. No defined fluid collection or soft tissue gas is identified. No acute osseous abnormality. Consolidation at the dependent posterior right lung base. [employer] Work Phone: CT RADIUS ULNA RIGHT W CONTR ASTOrdered By: Jett Dumont on 08-20-2021 [employer] Work Phone: Crystals, Body Fluidon 08-20 Crystals, Fluid Negative NEGATIVE [employer] Comment on above: NO CRYSTALS SEEN Specimen type Nom (Spec) .SHOULDER [facility] [employer] Comment on above: RIGHT JOINT FLUID [employer] Crystals, Fluidson 2 Crystals,Fluid Negative Normal NEG [facility] Comment on above: Result Comment: NO C RYSTALS SEEN Performed By: #### F LCRYS, BFCNT #### [facility] [address] [phone] Snow Ranger: Chriss Townsend MD Magnesiumon 08-20-2021 Magnesium [Mass/Vol] 2.0 mg/dL Normal 1.6-2.6 [facility] Comment on above: Performed By: #### C RP, CDP, SED #### [facility] [address] [place] [address] [phone] Snow Ranger: Chriss Townsend MD Magnesium [Mass/Vol] 2.0 mg/dL 1.6 - 2 .6 mg/dL [facility] Basic Metab w/rfx MGon 08-19 (cont.) Normal [facility] Comment on above: Result Comment: Aver age GFR for 60-69 years old: 85 mL/min/1.73sq m Chronic Kidney Disease: <60 mL/min/1.73sq m Kidney failure: <15 mL/min/1.73sq m eGFR calculated using average adult body mass. Additional eGFR calculator available at: http://www.Rotten Tomatoes/multiple_crcl_2012.htm Performed By: #### C RP, CDP, SED #### [facility] [address] [place] [address] [phone] Snow Ranger: Chriss Townsend MD Anion gap [Moles/Vol] 12 mmol/L Normal 9-17 [facility] Comment on above: Performed By: #### C RP, CDP, SED #### [facility] [address] [place] [address] [phone] Snow Ranger: Chriss Townsend MD Calcium [Mass/Vol] 8.7 mg/dL Normal 8.6-10.[address] [facility] Comment on above: Performed By: #### C RP, CDP, SED #### [facility] [address] [place] [address] [phone] Snow Ranger: Chriss Townsend MD Chloride [Moles/Vol] 106 mmol/L Normal 98-107 [facility] Comment on above: Performed By: #### C RP, CDP, SED #### [facility] [address] [place] [address] Snow Ranger: Chriss Townsend MD CO2 [Moles/Vol] 24 mmol/L Normal 20-[address] [facility] Comment on above: Performed By: #### C RP, CDP, SED #### [facility] [address] [place] [address] Snow Ranger: Chriss Townsend MD Creatinine [Mass/Vol] 0.38 mg/dL Low 0.50-0.90 [facility] Comment on above: Performed By: #### C RP, CDP, SED #### [facility] [address] [place] [address] Snow Ranger: Chriss Townsend MD GFR, Amer >60 Normal >60 [facility] Comment on above: Performed By: #### C RP, CDP, SED #### [facility] [address] [place] [address] [phone] Snow Ranger: Chriss Townsend MD GFR,non Amer >60 Normal >60 [facility] Comment on above: Performed By: #### C RP, CDP, SED #### [facility] [address] [place] [address] Snow Ranger: Chriss Townsend MD Glucose [Mass/Vol] 81 mg/dL Normal 70-[address] [facility] Comment on above: Performed By: #### C RP, CDP, SED #### [facility] [address] [place] [address]57[address] Snow Ranger: Chriss Townsend MD Potassium [Moles/Vol] 3.0 mmol/L Low 3.7-5.3 [facility] Comment on above: Performed By: #### C RP, CDP, SED #### [facility] [address] [place] [address] Snow Ranger: Chriss Townsend MD Sodium [Moles/Vol] 142 mmol/L Normal 135-[address] [facility] Comment on above: Performed By: #### C RP, CDP, SED #### [facility] [address] [place], [place] [phone] Snow Ranger: Chriss Townsend MD Urea nitrogen [Mass/Vol] 11 mg/dL Normal 8-[address] [facility] Comment on above: Performed By: #### C RP, CDP, SED #### [facility] [address] [place], [place] [phone] Snow Ranger: Chriss Townsend MD Basic Metabolic Panel w/ Ref sujatha to on 08-19-2021 Anion gap [Moles/Vol] 12 mmol/L 9 - 17 mmol/L [employer] Calcium [Mass/Vol] 8.7 mg/dL 8.6 - 10. 4 mg/dL [facility] Chloride [Moles/Vol] 106 mmol/L 98 - 10 7 mmol/L [facility] CO2 [Moles/Vol] 24 mmol/L 20 - 31 mmol/L [facility] Creatinine [Mass/Vol] 0.38 mg/dL Low 0.50 - 0.90 mg/dL [employer] GFR >60 >60 mL/min [facility] [employer] GFR Non- >60 >60 mL/min [facility] GFR/1.73 sq M.predicted MDRD (S/P/Bld) [Vol rate/Area] [facility] Comment on above: Average GFR for 60-6 9 years old: 85 mL/min/1.73sq m Chronic Kidney Disease: <60 mL/min/1.73sq m Kidney failure: <15 mL/min/1.73sq m eGFR calculated using average adult body mass. Additional eGFR calculator available at: http://www.VoluBill.Zoutons/multiple_crcl_2012.htm Glucose [Mass/Vol] 81 mg/dL 70 - 99 mg/dL [facility] [employer] Interpretation and review of laboratory results Abnormal [facility] Potassium [Moles/Vol] 3.0 mmol/L Low 3.7 - 5.3 mmol/L [facility] Sodium [Moles/Vol] 142 mmol/L 135 - 144 mmol/L [facility] Urea nitrogen (BldV) [Mass/Vol] 11 mg/dL 8 - 23 mg/dL [facility] CBC with Auto Differentialon 08-19-2021 Absolute Eos # <0.03 [facility] Absolute Immature Granulocyte 0.27 [facility] Absolute Lymph # 0.75 Low [facility] Absolute Haskell # 0.25 [facility] Basophils (Bld) [#/Vol] 0.03 10*3/uL [facility] Basophils/100 WBC (Bld) 0 % 0 - 2 % [facility] Eosinophils/100 WBC (Bld) 0 % Low 1 - 4 % [facility] Hematocrit (Bld) [Volume fraction] 36.0 % Low 36.3 - 47.1 % [facility] Hemoglobin.gastrointe stinal spec 1 Ql (Stl) 10.9 g/dL Low 11.9 - 15.1 g/dL [facility] Immature granulocytes/100 WBC (Bld) 3 % High 0 [facility] Interpretation and review of laboratory results Abnormal [facility] Lymphocytes/100 WBC (Bld) 8 % Low 24 - 43 % [facility] MCH (RBC) [Entitic mass] 28.9 pg 25.2 - 33.5 pg [facility] MCHC (RBC) [Mass/Vol] 30.3 g/dL 28.4 - 34.8 g/dL [facility] MCV (RBC) [Entitic vol] 95.5 fL 82.6 - 102.9 fL [facility] Monocytes/100 WBC (Bld) 3 % 3 - 12 % [facility] NRBC Automated 0.0 0.0 per 100 WBC [facility] Platelet distribution width (Bld) [Ratio] 14.4 % 11.8 - 14.4 % [facility] Platelet mean volume (Bld) [Entitic vol] 9.6 fL 8.1 - 13.5 fL [facility] Platelets (Bld) [#/Vol] 177 10*3/uL [facility] RBC (Bld) [#/Vol] 3.77 10*6/uL Low 3.95 - 5.1 1 m/uL [facility] Segmented neutrophils/100 WBC (Bld) 86 % High 36 - 65 % [facility] Segs Absolute 8.21 High [facility] WBC (Bld) [#/Vol] 9.5 10*3/uL [facility] CBC with Diffon 08-19-2021 Abs. Basophil 0.03 k/uL Normal 0.00-0.[address] [facility] Comment on above: Performed By: #### C RP, CDP, SED #### [place] [address] Snow Ranger: Chriss Townsend MD Abs. Eosinophil <0.03 Normal 0.00-0.[address] [facility] Comment on above: Performed By: #### C RP, CDP, SED #### [facility] [address] [place] [address] Snow Ranger: Chriss Townsend MD Abs.Imm.Granulocyte 0.27 k/uL Normal 0.00-0.[address] [facility] Comment on above: Performed By: #### C RP, CDP, SED #### [facility] [address] [place] [address] Snow Ranger: Chriss Townsend MD Abs.Neutrophil (Seg) 8.21 k/uL High 1.50-8.10 [facility] Comment on above: Performed By: #### C RP, CDP, SED #### [facility] [address] [place] [address] Snow Ranger: Chriss Townsend MD Basophils/100 WBC (Bld) 0 % Normal 0-[address] [facility] Comment on above: Performed By: #### C RP, CDP, SED #### [facility] [address] [address] [place], [place] [id number] Snow Ranger: Chriss Townsend MD Eosinophils/100 WBC (Bld) 0 % Low 1-[address] [facility] Comment on above: Performed By: #### C RP, CDP, SED #### [facility] [address] [place] [address] Snow Ranger: Chriss Townsend MD Erythrocyte distribution width (RBC) [Ratio] 14.4 % Normal 11.8-14.[address] [facility] Comment on above: Performed By: #### C RP, CDP, SED #### [facility] [address] [place] [address] Snow Ranger: Chriss Townsend MD Hematocrit (Bld) [Volume fraction] 36.0 % Low 36.3-47.[address] [facility] Comment on above: Performed By: #### C RP, CDP, SED #### [facility] [address] [place] [address] Snow Ranger: Chriss Townsend MD Hemoglobin (Bld) [Mass/Vol] 10.9 g/dL Low 11.9-15.[address] [facility] Comment on above: Performed By: #### C RP, CDP, SED #### [facility] [address] [place] [address] Snow Ranger: Chriss Townsend MD Immature granulocytes/100 WBC (Bld) 3 % High [address] [facility] Comment on above: Performed By: #### C RP, CDP, SED #### [facility] [address] [place] [address] Snow Ranger: Chriss Townsend MD Lymphocytes (Bld) [#/Vol] 0.75 10*3/uL Low 1.10-3.[address] [facility] Comment on above: Performed By: #### C RP, CDP, SED #### [facility] [address] [place] [address] Snow Ranger: Chriss Townsend MD Lymphocytes/100 WBC (Bld) 8 % Low 24-[address] [facility] Comment on above: Performed By: #### C RP, CDP, SED #### [address] [address] Snow Ranger: Chriss Townsend MD MCH (RBC) [Entitic mass] 28.9 pg Normal 25.2-33.[address] [facility] Comment on above: Performed By: #### C RP, CDP, SED #### [address] [address] Snow Ranger: Chriss Townsend MD MCHC (RBC) [Mass/Vol] 30.3 g/dL Normal 28.4-34.8 [facility] Comment on above: Performed By: #### C RP, CDP, SED #### [place] [address] Snow Ranger: Chriss Townsend MD MCV (RBC) [Entitic vol] 95.5 fL Normal 82.6-102.[address] [facility] Comment on above: Performed By: #### C RP, CDP, SED #### [address] [address] Snow Ranger: Chriss Townsend MD Monocytes (Bld) [#/Vol] 0.25 10*3/uL Normal 0.10-1.[address] [facility] Comment on above: Performed By: #### C RP, CDP, SED #### [address] [address] Snow Ranger: Chriss Townsend MD Monocytes/100 WBC (Bld) 3 % Normal 3-[address] [facility] Comment on above: Performed By: #### C RP, CDP, SED #### [address] [address] Snow Ranger: Chriss Townsned MD Neutrophil (Seg) 86 % High 36-65 [facility] Comment on above: Performed By: #### C RP, CDP, SED #### [address] [address] Snow Ranger: Chriss Townsend MD NRBC Automated 0.0 per 100 WBC Normal 0.[address] [facility] Comment on above: Performed By: #### C RP, CDP, SED #### [address] [address] Snow Ranger: Chriss Townsend MD Platelet mean volume (Bld) [Entitic vol] 9.6 fL Normal 8.1-13.[address] [facility] Comment on above: Performed By: #### C RP, CDP, SED #### [address] [address] Snow Ranger: Chriss Townsend MD Platelets (Bld) [#/Vol] 177 10*3/uL Normal 138-[address] [facility] Comment on above: Performed By: #### C RP, CDP, SED #### [address] [address] Snow Ranger: Chriss Townsend MD RBC (Bld) [#/Vol] 3.77 10*6/uL Low 3.95-5.[address] [facility] Comment on above: Performed By: #### C RP, CDP, SED #### [address] [address] Snow Ranger: Chriss Townsend MD WBC (Bld) [#/Vol] 9.5 10*3/uL Normal 3.5-11.[address] [facility] Comment on above: Performed By: #### C RP, CDP, SED #### [address] [address] Snow Ranger: Chriss Townsend MD Cult,Aerobe/Anaerobeon 08-19 Cult,Aerobe/Anaerobe Specimen Descriptio n .ASPIRATE PUBIC SYMPHSIS Direct Exam RARE NEUTROPHILS RARE GRAM POSITIVE COCCI IN CLUSTERS Culture STAPHYLOCOCCUS AUREUS LIGHT GROWTH This isolate is methicillin susceptible. No anaerobic organisms isolated at 5 days. Report Status FINAL 08/22/2021 SUSCEPTIBILITY Organism SAUR MSSA Method FABIOLA Clindamycin <=0.25 SUSCEPTIBLE Erythromycin <=0.25 SUSCEPTIBLE Gentamicin <=0.5 SUSCEPTIBLE Gentamicin is used only in combination with other active agents that test susceptible. Levofloxacin <=0.12 SUSCEPTIBLE Oxacillin <=0.25 SUSCEPTIBLE This staph isolate may be susceptible to Penicillin. Please contact Microbiology for confirmatory testing of susceptibility if Pencillin is a therapeutic consideration. Tetracycline <=1 SUSCEPTIBLE Trimethoprim/Sulfa <=10 SUSCEPTIBLE Susceptible [facility] Comment on above: Performed By: #### C MARC, SEBASTIAN, SED #### [facility] [address] [place] [address] Snow Ranger: Chriss Townsend MD Cult,Aerobe/Anaerobe Specimen Descriptio n .SHOULDER RIGHT JOINT FLUID Direct Exam MODERATE NEUTROPHILS NO BACTERIA SEEN Culture STAPHYLOCOCCUS AUREUS LIGHT GROWTH This isolate is methicillin susceptible. CALLED TO TERRI Hensley 08/17/21 13:40 No anaerobic organisms isolated at 5 days. Report Status FINAL 08/21/2021 SUSCEPTIBILITY Organism SAUR MSSA Method FABIOLA Clindamycin <=0.25 SUSCEPTIBLE Erythromycin <=0.25 SUSCEPTIBLE Gentamicin <=0.5 SUSCEPTIBLE Gentamicin is used only in combination with other active agents that test susceptible. Levofloxacin <=0.12 SUSCEPTIBLE Oxacillin <=0.25 SUSCEPTIBLE This staph isolate may be susceptible to Penicillin. Please contact Microbiology for confirmatory testing of susceptibility if Pencillin is a therapeutic consideration. Tetracycline <=1 SUSCEPTIBLE Trimethoprim/Sulfa <=10 SUSCEPTIBLE Susceptible [facility] Comment on above: Performed By: #### C RP, CDP, SED #### [facility] [address] [place] [address] Snow Ranger: Chriss Townsend MD Culture, Anaerobic and Aerob icon 08-19-2021 Bacteria identified Cx Nom (Unsp spec) STAPHYLOCOCCUS AUREUS LIGHT GROWTH This isolate is methicillin susceptible. Abnormal [facility] Bacteria identified Cx Nom (Unsp spec) CALLED TO TERRI Hensley 08/17/21 13:40 [facility] Bacteria identified Cx Nom (Unsp spec) No anaerobic organisms isolated at 5 days. [facility] Direct Exam MODERATE NEUTROPHILS Abnormal [facility] Direct Exam NO BACTERIA SEEN [facility] Interpretation and review of laboratory results Abnormal [facility] Specimen Description .SHOULDER RIGHT [facility] Magnesiumon 08-19-2021 Magnesium [Mass/Vol] 1.7 mg/dL Normal 1.6-2.6 [facility] Comment on above: Performed By: #### C OVRB #### [facility] [address] [place] [address] [phone] Snow Ranger: Chriss Townsend MD Magnesium [Mass/Vol] 1.7 mg/dL 1.6 - 2 .6 mg/dL [facility] Basic Metab w/rfx MGon 08-18 (cont.) Normal [facility] Comment on above: Result Comment: Aver age GFR for 60-69 years old: 85 mL/min/1.73sq m Chronic Kidney Disease: <60 mL/min/1.73sq m Kidney failure: <15 mL/min/1.73sq m eGFR calculated using average adult body mass. Additional eGFR calculator available at: http://www.VoluBill.Zoutons/multiple_crcl_2012.htm Performed By: #### C RP, CDP, SED #### [facility] [address] [place] [address] Snow Ranger: Chriss Townsend MD Anion gap [Moles/Vol] 9 mmol/L Normal 9-17 [facility] Comment on above: Performed By: #### C RP, CDP, SED #### [facility] [address] [place] [address] Snow Ranger: Chriss Townsend MD Calcium [Mass/Vol] 9.4 mg/dL Normal 8.6-10.[address] [facility] Comment on above: Performed By: #### C RP, CDP, SED #### [facility] [address] [place] [address] Snow Ranger: Chriss Townsend MD Chloride [Moles/Vol] 107 mmol/L Normal 98-107 [facility] Comment on above: Performed By: #### C RP, CDP, SED #### [facility] [address] [place] [address] Snow Ranger: Chriss Townsend MD CO2 [Moles/Vol] 21 mmol/L Normal 20-[address] [facility] Comment on above: Performed By: #### C RP, CDP, SED #### [facility] [address] [place] [address] Snow Ranger: Chriss Townsend MD Creatinine [Mass/Vol] 0.42 mg/dL Low 0.50-0.90 [facility] Comment on above: Performed By: #### C RP, CDP, SED #### [facility] [address] [place] [address] Snow Ranger: Chriss Townsend MD GFR, Amer >60 Normal >60 [facility] Comment on above: Performed By: #### C RP, CDP, SED #### [facility] [address] [place] [address] Snow Ranger: Chriss Townsend MD GFR,non Amer >60 Normal >60 [facility] Comment on above: Performed By: #### C RP, CDP, SED #### [facility] [address] [place] [address] Snow Ranger: Chriss Townsend MD Glucose [Mass/Vol] 139 mg/dL High 70-[address] [facility] Comment on above: Performed By: #### C RP, CDP, SED #### [facility] [address] [place] [address] Snow Ranger: Chriss Townsend MD Potassium [Moles/Vol] 3.5 mmol/L Low 3.7-5.3 [facility] Comment on above: Performed By: #### C RP, CDP, SED #### [facility] [address] [place], [place] [phone] Snow Ranger: Chriss Townsend MD Sodium [Moles/Vol] 137 mmol/L Normal 135-[address] [facility] Comment on above: Performed By: #### C RP, CDP, SED #### [facility] [address] [place] [phone] Snow Ranger: Chriss Townsend MD Urea nitrogen [Mass/Vol] 17 mg/dL Normal 8-[address] [facility] Comment on above: Performed By: #### C RP, CDP, SED #### [facility] [address] [place] [address] [phone] Snow Ranger: Chriss Townsend MD Basic Metabolic Panel w/ Ref sujatha to MGon 08-18-2021 Anion gap [Moles/Vol] 9 mmol/L 9 - 17 mmol/L [facility] Calcium [Mass/Vol] 9.4 mg/dL 8.6 - 10. 4 mg/dL [facility] Chloride [Moles/Vol] 107 mmol/L 98 - 10 7 mmol/L [facility] CO2 [Moles/Vol] 21 mmol/L 20 - 31 mmol/L [facility] [employer] Creatinine [Mass/Vol] 0.42 mg/dL Low 0.50 - 0.90 mg/dL [facility] GFR >60 >60 mL/min [facility] GFR Non- >60 >60 mL/min [facility] GFR/1.73 sq M.predicted MDRD (S/P/Bld) [Vol rate/Area] [facility] Comment on above: Average GFR for 60-6 9 years old: 85 mL/min/1.73sq m Chronic Kidney Disease: <60 mL/min/1.73sq m Kidney failure: <15 mL/min/1.73sq m eGFR calculated using average adult body mass. Additional eGFR calculator available at: http://www.Rotten Tomatoes/multiple_crcl_2012.htm Glucose [Mass/Vol] 139 mg/dL High 70 - 99 mg/dL [facility] Potassium [Moles/Vol] 3.5 mmol/L Low 3.7 - 5.3 mmol/L [facility] Sodium [Moles/Vol] 137 mmol/L 135 - 144 mmol/L [facility] Urea nitrogen (BldV) [Mass/Vol] 17 mg/dL 8 - 23 mg/dL [facility] C-Reactive Proteinon 022 CRP [Mass/Vol] 104.5 mg/L High 0.0-5.[address] [facility] Comment on above: Performed By: #### C RP, CDP, SED #### [facility] [address] [place] [phone] Snow Ranger: Chriss Townsend MD CRP [Mass/Vol] 104.5 mg/L High 0.0 - 5.0 mg/L [facility] CBC with Auto Differentialon 08-18-2021 Absolute Eos # 0.00 [facility] Absolute Immature Granulocyte 0.00 [facility] Absolute Lymph # 0.66 Low [facility] Absolute Haskell # 0.19 [facility] Basophils (Bld) [#/Vol] 0.00 10*3/uL [facility] Basophils/100 WBC (Bld) 0 % 0 - 2 % [facility] Eosinophils/100 WBC (Bld) 0 % Low 1 - 4 % [facility] Hematocrit (Bld) [Volume fraction] 31.1 % Low 36.3 - 47.1 % [facility] Hemoglobin.gastrointe stinal spec 1 Ql (Stl) 9.9 g/dL Low 11.9 - 15.1 g/dL [facility] Immature granulocytes/100 WBC (Bld) 0 % 0 [facility] Interpretation and review of laboratory results Abnormal [facility] Lymphocytes/100 WBC (Bld) 7 % Low 24 - 44 % [facility] MCH (RBC) [Entitic mass] 29.6 pg 25.2 - 33.5 pg [facility] MCHC (RBC) [Mass/Vol] 31.8 g/dL 28.4 - 34.8 g/dL [facility] MCV (RBC) [Entitic vol] 92.8 fL 82.6 - 102.9 fL [facility] Monocytes/100 WBC (Bld) 2 % 1 - 7 % [facility] Morphology Demetrio (Bld) [Interp] Normal [facility] NRBC Automated 0.0 0.0 per 100 WBC [facility] Platelet distribution width (Bld) [Ratio] 14.4 % 11.8 - 14.4 % [facility] Platelet mean volume (Bld) [Entitic vol] 9.8 fL 8.1 - 13.5 fL [facility] Platelets (Bld) [#/Vol] 164 10*3/uL [facility] RBC (Bld) [#/Vol] 3.35 10*6/uL Low 3.95 - 5.1 1 m/uL [facility] Segmented neutrophils/100 WBC (Bld) 91 % High 36 - 66 % [facility] Segs Absolute 8.55 High [facility] WBC (Bld) [#/Vol] 9.4 10*3/uL [facility] CBC with Diffon 08-18-2021 Abs. Basophil 0.00 k/uL Normal 0.0-0.[address] [facility] Comment on above: Performed By: #### C SEBASTIAN TRAN, SED #### [facility] [place], [place] [phone] Snow Ranger: Chriss Townsend MD Abs.Imm.Granulocyte 0.00 k/uL Normal 0.00-0.[address] [facility] Comment on above: Performed By: #### C RP, CDP, SED #### [facility] [address] [place], [place] [phone] Snow Ranger: Chriss Townsend MD Abs.Neutrophil (Seg) 8.55 k/uL High 1.8-7.7 [facility] Comment on above: Performed By: #### C RP, CDP, SED #### [address] [address] Snow Ranger: Chriss Townsend MD Basophils/100 WBC (Bld) 0 % Normal 0-[address] [facility] Comment on above: Performed By: #### C RP, CDP, SED #### [address] [address] Snow Ranger: Chriss Townsend MD Eosinophils (Bld) [#/Vol] 0.00 10*3/uL Normal 0.0-0.[address] [facility] Comment on above: Performed By: #### C RP, CDP, SED #### [address] [address] Snow Ranger: Chriss Townsend MD Eosinophils/100 WBC (Bld) 0 % Low 1-[address] [facility] Comment on above: Performed By: #### C RP, CDP, SED #### [address] [address] Snow Ranger: Chriss Townsend MD Immature granulocytes/100 WBC (Bld) 0 % Normal [address] [facility] Comment on above: Performed By: #### C RP, CDP, SED #### [address] [address] Snow Ranger: Chriss Townsend MD Lymphocytes (Bld) [#/Vol] 0.66 10*3/uL Low 1.0-4.[address] [facility] Comment on above: Performed By: #### C RP, CDP, SED #### [facility] [address] [place] [address] Snow Ranger: Chriss Townsend MD Lymphocytes/100 WBC (Bld) 7 % Low 24-[address] [facility] Comment on above: Performed By: #### C RP, CDP, SED #### [address] [address] Snow Ranger: Chriss Townsend MD Monocytes (Bld) [#/Vol] 0.19 10*3/uL Normal 0.1-0.[address] [facility] Comment on above: Performed By: #### C RP, CDP, SED #### [address] [address] Snow Ranger: Chriss Townsend MD Monocytes/100 WBC (Bld) 2 % Normal 1-[address] [facility] Comment on above: Performed By: #### C RP, CDP, SED #### [address] [address] Snow Ranger: Chriss Townsend MD Morphology Demetrio (Bld) [Interp] Normal Normal [facility] Comment on above: Performed By: #### C RP, CDP, SED #### [address] [address] Snow Ranger: Chriss Townsend MD Neutrophil (Seg) 91 % High 36-66 [facility] Comment on above: Performed By: #### C RP, CDP, SED #### [address] [address] Snow Ranger: Chriss Townsend MD Erythrocyte distribution width (RBC) [Ratio] 14.4 % Normal 11.8-14.[address] [facility] Comment on above: Performed By: #### C RP, CDP, SED #### [facility] [address] [place] [address] Snow Ranger: Chriss Townsend MD Hematocrit (Bld) [Volume fraction] 31.1 % Low 36.3-47.[address] [facility] Comment on above: Performed By: #### C RP, CDP, SED #### [address] [address] Snow Ranger: Chriss Townsend MD Hemoglobin (Bld) [Mass/Vol] 9.9 g/dL Low 11.9-15.[address] [facility] Comment on above: Performed By: #### C RP, CDP, SED #### [address] [address] Snow Ranger: Chriss Townsend MD MCH (RBC) [Entitic mass] 29.6 pg Normal 25.2-33.[address] [facility] Comment on above: Performed By: #### C RP, CDP, SED #### [address] [address] Snow Ranger: Chriss Townsend MD MCHC (RBC) [Mass/Vol] 31.8 g/dL Normal 28.4-34.8 [facility] Comment on above: Performed By: #### C RP, CDP, SED #### [address] [address] Snow Ranger: Chriss Townsend MD MCV (RBC) [Entitic vol] 92.8 fL Normal 82.6-102.[address] [facility] Comment on above: Performed By: #### C RP, CDP, SED #### [address] [address] Snow Ranger: Chriss Townsend MD NRBC Automated 0.0 per 100 WBC Normal 0.[address] [facility] Comment on above: Performed By: #### C RP, CDP, SED #### [address] [address] Snow Ranger: Chriss Townsend MD Platelet mean volume (Bld) [Entitic vol] 9.8 fL Normal 8.1-13.[address] [facility] Comment on above: Performed By: #### C RP, CDP, SED #### [address] [address] Snow Ranger: Chriss Townsend MD Platelets (Bld) [#/Vol] 164 10*3/uL Normal 138-[address] [facility] Comment on above: Performed By: #### C RP CDP, SED #### [facility] [place] [address] Snow Ranger: Chriss Townsend MD RBC (Bld) [#/Vol] 3.35 10*6/uL Low 3.95-5.[address] [facility] Comment on above: Performed By: #### C RP, CDP, SED #### [facility] [place] [address] Snow Ranger: Chriss Townsend MD WBC (Bld) [#/Vol] 9.4 10*3/uL Normal 3.5-11.[address] [facility] Comment on above: Performed By: #### C RP CDP, SED #### [facility] [address] [place] [address] Snow Ranger: Chriss Townsend MD Magnesiumon 08-18-2021 Magnesium [Mass/Vol] 2.0 mg/dL Normal 1.6-2.6 [facility] Comment on above: Performed By: #### C RP, CDP, SED #### [facility] [place] [address] Snow Ranger: Chriss Townsend MD Magnesium [Mass/Vol] 2.0 mg/dL 1.6 - 2 .6 mg/dL [facility] No Panel Informationon 08-18 Interpretation and review of laboratory results Abnormal [facility] Basic Metab w/rfx MGon 08-17 (cont.) Normal [facility] Comment on above: Result Comment: Aver age GFR for 60-69 years old: 85 mL/min/1.73sq m Chronic Kidney Disease: <60 mL/min/1.73sq m Kidney failure: <15 mL/min/1.73sq m eGFR calculated using average adult body mass. Additional eGFR calculator available at: http://www.VoluBill.Zoutons/multiple_crcl_2012.htm Performed By: #### C RP, CDP, SED #### [facility] [address] [place] [address] Snow Ranger: Chriss Townsend MD Anion gap [Moles/Vol] 13 mmol/L Normal 9-17 [facility] Comment on above: Performed By: #### C RP, CDP, SED #### [facility] [address] [place] [address] Snow Ranger: Chriss Townsend MD Calcium [Mass/Vol] 9.2 mg/dL Normal 8.6-10.[address] [facility] Comment on above: Performed By: #### C RP, CDP, SED #### [facility] [address] [place] [address] Snow Ranger: Chriss Townsend MD Chloride [Moles/Vol] 114 mmol/L High 98-107 [facility] Comment on above: Performed By: #### C RP, CDP, SED #### [facility] [address] [place] [address] Snow Ranger: Chriss Townsend MD CO2 [Moles/Vol] 15 mmol/L Low 20-[address] [facility] Comment on above: Performed By: #### C RP, CDP, SED #### [facility] [address] [place] [address] Snow Ranger: Chriss Townsend MD Creatinine [Mass/Vol] 0.31 mg/dL Low 0.50-0.90 [facility] Comment on above: Performed By: #### C RP, CDP, SED #### [facility] [address] [place] [address] Snow Ranger: Chriss Townsend MD GFR, Amer >60 Normal >60 [facility] Comment on above: Performed By: #### C RP, CDP, SED #### [facility] [address] [place] [address] Snow Ranger: Chriss Townsend MD GFR,non Amer >60 Normal >60 [facility] Comment on above: Performed By: #### C RP, CDP, SED #### [facility] [address] [place] [address] Snow Ranger: Chriss Townsend MD Glucose [Mass/Vol] 89 mg/dL Normal 70-[address] [facility] Comment on above: Performed By: #### C RP, CDP, SED #### [facility] [address] [place] [address] Snow Ranger: Chriss Townsend MD Potassium [Moles/Vol] 3.9 mmol/L Normal 3.7-5.3 [facility] Comment on above: Performed By: #### C RP, CDP, SED #### [facility] [address] [place] [address] Snow Ranger: Chriss Townsend MD Sodium [Moles/Vol] 142 mmol/L Normal 135-[address] [facility] Comment on above: Performed By: #### C RP, CDP, SED #### [facility] [address] [place] [address] Snow Ranger: Chriss Townsend MD Urea nitrogen [Mass/Vol] 13 mg/dL Normal 8-[address] [facility] Comment on above: Performed By: #### C RP, CDP, SED #### [facility] [address] [place] [address] Snow Ranger: Chriss Townsend MD Basic Metabolic Panel w/ Ref sujatha to MGon 08-17-2021 Anion gap [Moles/Vol] 13 mmol/L 9 - 17 mmol/L [facility] Calcium [Mass/Vol] 9.2 mg/dL 8.6 - 10. 4 mg/dL [facility] Chloride [Moles/Vol] 114 mmol/L High 98 - 10 7 mmol/L [facility] CO2 [Moles/Vol] 15 mmol/L Low 20 - 31 mmol/L [facility] Creatinine [Mass/Vol] 0.31 mg/dL Low 0.50 - 0.90 mg/dL [facility] GFR >60 >60 mL/min [facility] GFR Non- >60 >60 mL/min [facility] GFR/1.73 sq M.predicted MDRD (S/P/Bld) [Vol rate/Area] [facility] Comment on above: Average GFR for 60-6 9 years old: 85 mL/min/1.73sq m Chronic Kidney Disease: <60 mL/min/1.73sq m Kidney failure: <15 mL/min/1.73sq m eGFR calculated using average adult body mass. Additional eGFR calculator available at: http://www.Rotten Tomatoes/multiple_crcl_2012.htm Glucose [Mass/Vol] 89 mg/dL 70 - 99 mg/dL [facility] Interpretation and review of laboratory results Abnormal [facility] Potassium [Moles/Vol] 3.9 mmol/L 3.7 - 5.3 mmol/L [facility] Sodium [Moles/Vol] 142 mmol/L 135 - 144 mmol/L [facility] Urea nitrogen (BldV) [Mass/Vol] 13 mg/dL 8 - 23 mg/dL [facility] Body Fluid Counton 2 RBC [id number] /mm3 Normal [facility] Comment on above: Result Comment: The reference range and other method performance specifications have not been established for this body fluid. The test result must be integrated into the clinical context for interpretation. Performed By: #### F LCRYS, BFCNT #### [facility] [place] [address] Snow Ranger: Chriss Townsend MD WBC [id number] /mm3 Normal [facility] Comment on above: Result Comment: The reference range and other method performance specifications have not been established for this body fluid. The test result must be integrated into the clinical context for interpretation. Performed By: #### F LCRYS, BFCNT #### [facility] [address] [id number] Snow Ranger: Chriss Townsend MD CBC with Auto Differentialon 08-17-2021 Absolute Eos # 0.00 [facility] Absolute Immature Granulocyte 0.00 [facility] Absolute Lymph # 0.41 Low [facility] Absolute Haskell # 0.24 [facility] Basophils (Bld) [#/Vol] 0.00 10*3/uL [facility] Basophils/100 WBC (Bld) 0 % 0 - 2 % [facility] Eosinophils/100 WBC (Bld) 0 % Low 1 - 4 % [facility] Hematocrit (Bld) [Volume fraction] 35.4 % Low 36.3 - 47.1 % [facility] Hemoglobin.gastrointe stinal spec 1 Ql (Stl) 10.8 g/dL Low 11.9 - 15.1 g/dL [facility] Immature granulocytes/100 WBC (Bld) 0 % 0 [facility] Interpretation and review of laboratory results Abnormal [facility] Lymphocytes/100 WBC (Bld) 5 % Low 24 - 44 % [facility] MCH (RBC) [Entitic mass] 29.8 pg 25.2 - 33.5 pg [facility] MCHC (RBC) [Mass/Vol] 30.5 g/dL 28.4 - 34.8 g/dL [facility] MCV (RBC) [Entitic vol] 97.8 fL 82.6 - 102.9 fL [facility] Monocytes/100 WBC (Bld) 3 % 1 - 7 % [facility] Morphology Demetrio (Bld) [Interp] ANISOCYTOSIS PRESENT [facility] NRBC Automated 0.0 0.0 per 100 WBC [facility] Platelet distribution width (Bld) [Ratio] 14.6 % High 11.8 - 14.4 % [facility] Platelet mean volume (Bld) [Entitic vol] 9.9 fL 8.1 - 13.5 fL [facility] Platelets (Bld) [#/Vol] 123 10*3/uL Low [facility] RBC (Bld) [#/Vol] 3.62 10*6/uL Low 3.95 - 5.1 1 m/uL [facility] Segmented neutrophils/100 WBC (Bld) 92 % High 36 - 66 % [facility] Segs Absolute 7.45 [facility] WBC (Bld) [#/Vol] 8.1 10*3/uL [facility] CBC with Diffon 08-17-2021 Abs. Basophil 0.00 k/uL Normal 0.0-0.[address] [facility] Comment on above: Performed By: #### C RP, CDP, SED #### [facility] [address] [place] [address] Snow Ranger: Chriss Townsend MD Abs.Imm.Granulocyte 0.00 k/uL Normal 0.00-0.[address] [facility] Comment on above: Performed By: #### C RP, CDP, SED #### [facility] [address] [place] [address] Snow Ranger: Chriss Townsend MD Abs.Neutrophil (Seg) 7.45 k/uL Normal 1.8-7.7 [facility] Comment on above: Performed By: #### C RP, CDP, SED #### [facility] [address] [place] [address] Snow Ranger: Chriss Townsend MD Basophils/100 WBC (Bld) 0 % Normal 0-[address] [facility] Comment on above: Performed By: #### C RP, CDP, SED #### [facility] [address] [place] [address] Snow Ranger: Chriss Townsend MD Eosinophils (Bld) [#/Vol] 0.00 10*3/uL Normal 0.0-0.[address] [facility] Comment on above: Performed By: #### C RP, CDP, SED #### [facility] [address] [place] [address] Snow Ranger: Chriss Townsend MD Eosinophils/100 WBC (Bld) 0 % Low 1-[address] [facility] Comment on above: Performed By: #### C RP, CDP, SED #### [address] [address] Snow Ranger: Chriss Townsend MD Immature granulocytes/100 WBC (Bld) 0 % Normal [address] [facility] Comment on above: Performed By: #### C RP, CDP, SED #### [address] [address] Snow Ranger: Chriss Townsend MD Lymphocytes (Bld) [#/Vol] 0.41 10*3/uL Low 1.0-4.[address] [facility] Comment on above: Performed By: #### C RP, CDP, SED #### [address] [address] Snow Ranger: Chriss Townsend MD Lymphocytes/100 WBC (Bld) 5 % Low 24-[address] [facility] Comment on above: Performed By: #### C RP, CDP, SED #### [address] [address] Snow Ranger: Chriss Townsend MD Monocytes (Bld) [#/Vol] 0.24 10*3/uL Normal 0.1-0.[address] [facility] Comment on above: Performed By: #### C RP, CDP, SED #### [address] [address] Snow Ranger: Chriss Townsend MD Monocytes/100 WBC (Bld) 3 % Normal 1-[address] [facility] Comment on above: Performed By: #### C RP, CDP, SED #### [address] [address] Snow Ranger: Chriss Townsend MD Morphology Demetrio (Bld) [Interp] ANISOCYTOSIS PRESENT Normal [facility] Comment on above: Performed By: #### C RP, CDP, SED #### [address] [address] Snow Ranger: Chriss Townsend MD Neutrophil (Seg) 92 % High 36-66 [facility] Comment on above: Performed By: #### C RP, CDP, SED #### [address] [address] Snow Ranger: Chriss Townsend MD Erythrocyte distribution width (RBC) [Ratio] 14.6 % High 11.8-14.[address] [facility] Comment on above: Performed By: #### C RP, CDP, SED #### [address] [address] Snow Ranger: Chriss Townsend MD Hematocrit (Bld) [Volume fraction] 35.4 % Low 36.3-47.[address] [facility] Comment on above: Performed By: #### C RP, CDP, SED #### [address] [address] Snow Ranger: Chriss Townsend MD Hemoglobin (Bld) [Mass/Vol] 10.8 g/dL Low 11.9-15.[address] [facility] Comment on above: Performed By: #### C RP, CDP, SED #### [address] [address] Snow Ranger: Chriss Townsend MD MCH (RBC) [Entitic mass] 29.8 pg Normal 25.2-33.[address] [facility] Comment on above: Performed By: #### C RP, CDP, SED #### [facility] [address] [place] [address] Snow Ranger: Chriss Tonwsend MD MCHC (RBC) [Mass/Vol] 30.5 g/dL Normal 28.4-34.8 [facility] Comment on above: Performed By: #### C RP, CDP, SED #### [address] [address] Snow Ranger: Chriss Townsend MD MCV (RBC) [Entitic vol] 97.8 fL Normal 82.6-102.[address] [facility] Comment on above: Performed By: #### C RP, CDP, SED #### [address] [address] Snow Ranger: Chriss Townsend MD NRBC Automated 0.0 per 100 WBC Normal 0.[address] [facility] Comment on above: Performed By: #### C RP, CDP, SED #### [address] [address] Snow Ranger: Chriss Townsend MD Platelet mean volume (Bld) [Entitic vol] 9.9 fL Normal 8.1-13.[address] [facility] Comment on above: Performed By: #### C RP, CDP, SED #### [address] [address] Snow Ranger: Chriss Townsend MD Platelets (Bld) [#/Vol] 123 10*3/uL Low 138-[address] [facility] Comment on above: Performed By: #### C RP, CDP, SED #### [address] [address] Snow Ranger: Chriss Townsend MD RBC (Bld) [#/Vol] 3.62 10*6/uL Low 3.95-5.[address] [facility] Comment on above: Performed By: #### C RP, CDP, SED #### [address] [address] Snow Ranger: Chriss Townsend MD WBC (Bld) [#/Vol] 8.1 10*3/uL Normal 3.5-11.[address] [facility] Comment on above: Performed By: #### C RP, CDP, SED #### [facility] [address] [id number] Snow Ranger: Chriss Townsend MD CT ASP ABS HEMATOMA BULLA CY STon 08-17-2021 CT-guided pubic symp hysis region aspiration performed successfully. [facility] Jonathan Villavicencio MD - 08/17/2021 PROCEDURE: CT-GUIDED PUBIC SYMPHYSIS ASPIRATION 08/17/2021 HISTORY: ORDERING SYSTEM PROVIDED HISTORY: symphysis pubis asp. TECHNOLOGIST PROVIDED HISTORY: 08/17 symphysis pubis asp. TECHNIQUE: Automated exposure control, iterative reconstruction, and/or weight based adjustment of the mA/kV was utilized to reduce the radiation dose to as low as reasonably achievable. CONTRAST: None SEDATION: None FLUOROSCOPY DOSE AND TYPE OR TIME AND EXPOSURES: None DESCRIPTION OF PROCEDURE AND FINDINGS: Informed consent was obtained after a detailed explanation of the procedure including risks, benefits, and alternatives. [place] protocol was observed. Sterile gowns, masks, hats and gloves utilized for maximal sterile barrier. Initial CT images obtained with an overlying grid redemonstrate subtle irregularity and a tiny amount of fluid adjacent to the pubic symphysis. Skin over the area was prepped and draped in standard sterile fashion. 1% lidocaine used for local anesthesia. With CT for localization, a 20-gauge needle was advanced into the region of the pubic symphysis. CT images show a safe tract and access to the space. Minimal fluid was able to be aspirated spontaneously. Approximately 1 mL of saline was injected and as much as possible aspirated. Sample obtained was sent for the requested studies/cultures. Needle was removed and a Band-Aid applied. Post-procedure images show no local complication. The patient left the department stable condition. EBL: None. IMPRESSION: CT-guided pubic symphysis region aspiration performed successfully. [employer] Phone: Radiology Study observation (narrative) [employer] Phone: CT ASP ABS HEMATOMA BULLA CY STOrdered By: Jonathan Osorio on 08-17-2021 [facility] [employer] Phone: Cult,Aerobe/Anaerobeon 08-17 Cult,Aerobe/Anaerobe Specimen Descriptio n .ASPIRATE .SYNOVIAL FLUID RIGHT SHOULDER Direct Exam MODERATE NEUTROPHILS FEW GRAM POSITIVE COCCI IN CLUSTERS Culture STAPHYLOCOCCUS AUREUS LIGHT GROWTH This isolate is methicillin susceptible. No anaerobic organisms isolated at 5 days. Report Status FINAL 08/20/2021 SUSCEPTIBILITY Organism SAUR MSSA Method FABIOLA Clindamycin <=0.25 SUSCEPTIBLE Erythromycin <=0.25 SUSCEPTIBLE Gentamicin <=0.5 SUSCEPTIBLE Gentamicin is used only in combination with other active agents that test susceptible. Levofloxacin <=0.12 SUSCEPTIBLE Oxacillin <=0.25 SUSCEPTIBLE This staph isolate may be susceptible to Penicillin. Please contact Microbiology for confirmatory testing of susceptibility if Pencillin is a therapeutic consideration. Tetracycline <=1 SUSCEPTIBLE Trimethoprim/Sulfa <=10 SUSCEPTIBLE Susceptible [facility] Comment on above: Performed By: #### A ANC #### [facility] [address] [place] [phone] Snow Ranger: Chriss Townsend MD Cult,Urineon 08-17-2021 Cult,Urine Specimen Description .URINE,STRAIGHT CATHETER Culture NO GROWTH Report Status FINAL 08/17/[address] [facility] Comment on above: Performed By: #### L ACTIC #### [facility] [address] [place] [phone] Snow Ranger: Chriss Townsend MD Culture, Anaerobic and Aerob icon 08-17-2021 Bacteria identified Cx Nom (Unsp spec) STAPHYLOCOCCUS AUREUS LIGHT GROWTH This isolate is methicillin susceptible. Abnormal [facility] [employer] Bacteria identified Cx Nom (Unsp spec) No anaerobic organisms isolated at 5 days. [facility] [employer] Direct Exam MODERATE NEUTROPHILS Abnormal [facility] [employer] Direct Exam Positive Abnormal [facility] [employer] Interpretation and review of laboratory results Abnormal [facility] Specimen Description .ASPIRATE .SYNOVIAL FLUID [facility] [employer] Culture, Urineon 08-17-2021 Bacteria identified Cx Nom (U) NO GROWTH [facility] [employer] Specimen Description .URINE,STRAIGHT CATHETER [facility] XR ANKLE RIGHT (MIN 3 VIEWS) on 08-17-2021 XR ANKLE RIGHT (MIN 3 VIEWS) EXAMINATION: THREE XRAY VIEWS OF THE RIGHT ANKLE 08/16/2021 10:03 pm COMPARISON: 08/15/2021 HISTORY: ORDERING SYSTEM PROVIDED HISTORY: Post op pacu TECHNOLOGIST PROVIDED HISTORY: Post op pacu Reason for Exam: Post op FINDINGS: Postoperative hardware has been removed. Soft tissue gas seen related to the postoperative process. Small osseous fragment seen adjacent to the lateral malleolus, also noted on recent CT imaging done 2 days earlier. Calcaneal spurring at the plantar aponeurosis. IMPRESSION: Degenerative changes seen at the ankle with postoperative change and interval removal of the ORIF hardware. Interpreted by: Collette Contreras MD Signed by: Collette Contreras MD 08/16/21 Final result Normal [facility] Basic Metab w/rfx MGon 08-16 (cont.) Normal [facility] Comment on above: Result Comment: Aver age GFR for 60-69 years old: 85 mL/min/1.73sq m Chronic Kidney Disease: <60 mL/min/1.73sq m Kidney failure: <15 mL/min/1.73sq m eGFR calculated using average adult body mass. Additional eGFR calculator available at: http://www.VoluBill.Zoutons/multiple_crcl_2012.htm Performed By: #### C OVRB #### [facility] [address] [place] [phone] Snow Ranger: Chriss Townsend MD Anion gap [Moles/Vol] 10 mmol/L Normal 9-17 [facility] Comment on above: Performed By: #### C OVRB #### [facility] [address] [place] [phone] Snow Ranger: Chriss Townsend MD Calcium [Mass/Vol] 9.2 mg/dL Normal 8.6-10.[address] [facility] Comment on above: Performed By: #### C OVRB #### [facility] [address] [place] [address] [phone] Snow Ranger: Chriss Townsend MD Chloride [Moles/Vol] 112 mmol/L High 98-107 [facility] Comment on above: Performed By: #### C OVRB #### [address] [address] Snow Ranger: Chriss Townsend MD CO2 [Moles/Vol] 22 mmol/L Normal 20-[address] [facility] Comment on above: Performed By: #### C OVRB #### [address] [address] Snow Ranger: Chriss Townsend MD Creatinine [Mass/Vol] 0.42 mg/dL Low 0.50-0.90 [facility] Comment on above: Performed By: #### C OVRB #### [address] [address] Snow Ranger: Chriss Townsend MD GFR, Amer >60 Normal >60 [facility] Comment on above: Performed By: #### C OVRB #### [address] [address] Snow Ranger: Chriss Townsend MD GFR,non Amer >60 Normal >60 [facility] Comment on above: Performed By: #### C OVRB #### [address] [address] Snow Ranger: Chriss Townsend MD Glucose [Mass/Vol] 76 mg/dL Normal 70-[address] [facility] Comment on above: Performed By: #### C OVRB #### [address] [address] Snow Ranger: Chriss Townsend MD Sodium [Moles/Vol] 144 mmol/L Normal 135-[address] [facility] Comment on above: Performed By: #### C OVRB #### [address] [phone] Snow Ranger: Chriss Townsend MD Urea nitrogen [Mass/Vol] 12 mg/dL Normal 8-[address] [facility] Comment on above: Performed By: #### C OVRB #### [facility] [address] [place], [place] [phone] Snow Ranger: Chriss Townsend MD Potassium [Moles/Vol] 3.3 mmol/L Low 3.7-5.3 [facility] Comment on above: Performed By: #### C OVRB #### [facility] [address] [place] [address] Snow Ranger: Chriss Townsend MD Basic Metabolic Panel w/ Ref sujatha to [facility] 08-16-2021 Anion gap [Moles/Vol] 10 mmol/L 9 - 17 mmol/L [facility] Calcium [Mass/Vol] 9.2 mg/dL 8.6 - 10. 4 mg/dL [facility] Chloride [Moles/Vol] 112 mmol/L High 98 - 10 7 mmol/L [facility] CO2 [Moles/Vol] 22 mmol/L 20 - 31 mmol/L [facility] Creatinine [Mass/Vol] 0.42 mg/dL Low 0.50 - 0.90 mg/dL [facility] GFR >60 >60 mL/min [facility] GFR Non- >60 >60 mL/min [facility] GFR/1.73 sq M.predicted MDRD (S/P/Bld) [Vol rate/Area] [facility] Comment on above: Average GFR for 60-6 9 years old: 85 mL/min/1.73sq m Chronic Kidney Disease: <60 mL/min/1.73sq m Kidney failure: <15 mL/min/1.73sq m eGFR calculated using average adult body mass. Additional eGFR calculator available at: http://www.VoluBill.Zoutons/multiple_crcl_2012.htm Glucose [Mass/Vol] 76 mg/dL 70 - 99 mg/dL [facility] Interpretation and review of laboratory results Abnormal [facility] Sodium [Moles/Vol] 144 mmol/L 135 - 144 mmol/L [facility] Urea nitrogen (BldV) [Mass/Vol] 12 mg/dL 8 - 23 mg/dL [facility] Body Fluid Counton Type of Specimen .SHOULDER Normal [facility] Comment on above: Result Comment: RIGH T JOINT FLUID Performed By: #### F LCRYS, BFCNT #### [facility] [address] [place], [place] [phone] Snow Ranger: Chriss Townsend MD Body fluid cell counton 07-22 RBC, Fluid [id number] /mm3 [facility] Comment on above: The reference range and other method performance specifications have not been established for this body fluid. The test result must be integrated into the clinical context for interpretation. Specimen type Nom (Spec) .SHOULDER [facility] Comment on above: RIGHT JOINT FLUID WBC, Fluid [id number] /mm3 [facility] Comment on above: The reference range and other method performance specifications have not been established for this body fluid. The test result must be integrated into the clinical context for interpretation. [facility] C-Reactive Proteinon 022 CRP [Mass/Vol] 457.9 mg/L High 0.0-5.[address] [facility] Comment on above: Performed By: #### L ACTIC #### [facility] [address] [place], [place] [phone] Snow Ranger: Chriss Townsend MD CRP [Mass/Vol] 457.9 mg/L High 0.0 - 5.0 mg/L [facility] Interpretation and review of laboratory results Abnormal [facility] CBC with Auto Differentialon 08-16-2021 Absolute Eos # 0.00 [facility] Absolute Immature Granulocyte 0.00 [facility] Absolute Lymph # 0.50 Low [facility] Absolute Haskell # 0.20 [facility] Basophils (Bld) [#/Vol] 0.00 10*3/uL [facility] Basophils/100 WBC (Bld) 0 % 0 - 2 % [facility] Eosinophils/100 WBC (Bld) 0 % Low 1 - 4 % [facility] Hematocrit (Bld) [Volume fraction] 32.3 % Low 36.3 - 47.1 % [facility] Hemoglobin.gastrointe stinal spec 1 Ql (Stl) 9.9 g/dL Low 11.9 - 15.1 g/dL [facility] Immature granulocytes/100 WBC (Bld) 0 % 0 [facility] Interpretation and review of laboratory results Abnormal [facility] Lymphocytes/100 WBC (Bld) 5 % Low 24 - 44 % [facility] MCH (RBC) [Entitic mass] 30.0 pg 25.2 - 33.5 pg [facility] MCHC (RBC) [Mass/Vol] 30.7 g/dL 28.4 - 34.8 g/dL [facility] MCV (RBC) [Entitic vol] 97.9 fL 82.6 - 102.9 fL [facility] Monocytes/100 WBC (Bld) 2 % 1 - 7 % [facility] Morphology Demetrio (Bld) [Interp] ANISOCYTOSIS PRESENT [facility] Morphology Demetrio (Bld) [Interp] DOHLE BODIES PRESENT [facility] NRBC Automated 0.0 0.0 per 100 WBC [facility] Platelet distribution width (Bld) [Ratio] 15.1 % High 11.8 - 14.4 % [facility] Platelet mean volume (Bld) [Entitic vol] 9.8 fL 8.1 - 13.5 fL [facility] Platelets (Bld) [#/Vol] 130 10*3/uL Low [facility] RBC (Bld) [#/Vol] 3.30 10*6/uL Low 3.95 - 5.1 1 m/uL [facility] Segmented neutrophils/100 WBC (Bld) 93 % High 36 - 66 % [facility] Segs Absolute 9.20 High [facility] WBC (Bld) [#/Vol] 9.9 10*3/uL [facility] CBC with Diffon 08-16-2021 Abs. Basophil 0.00 k/uL Normal 0.0-0.[address] [facility] Comment on above: Performed By: #### L ACTIC #### [address] [address] Snow Ranger: Chriss Townsend MD Abs.Imm.Granulocyte 0.00 k/uL Normal 0.00-0.[address] [facility] Comment on above: Performed By: #### L ACTIC #### [address] [address] Snow Ranger: Chriss Townsend MD Abs.Neutrophil (Seg) 9.20 k/uL High 1.8-7.7 [facility] Comment on above: Performed By: #### L ACTIC #### [address] [address] Snow Ranger: Chriss Townsend MD Basophils/100 WBC (Bld) 0 % Normal 0-[address] [facility] Comment on above: Performed By: #### L ACTIC #### [address] [address] Snow Ranger: Chriss Townsend MD Eosinophils (Bld) [#/Vol] 0.00 10*3/uL Normal 0.0-0.[address] [facility] Comment on above: Performed By: #### L ACTIC #### [address] [address] Snow Ranger: Chriss Townsend MD Eosinophils/100 WBC (Bld) 0 % Low 1-[address] [facility] Comment on above: Performed By: #### L ACTIC #### [address] [address] Snow Ranger: Chriss Townsend MD Immature granulocytes/100 WBC (Bld) 0 % Normal [address] [facility] Comment on above: Performed By: #### L ACTIC #### [address] [address] Snow Ranger: Chriss Townsend MD Lymphocytes (Bld) [#/Vol] 0.50 10*3/uL Low 1.0-4.[address] [facility] Comment on above: Performed By: #### L ACTIC #### [address] [address] Snow Ranger: Chriss Townsend MD Lymphocytes/100 WBC (Bld) 5 % Low 24-[address] [facility] Comment on above: Performed By: #### L ACTIC #### [address] [address] Snow Ranger: Chriss Townsend MD Monocytes (Bld) [#/Vol] 0.20 10*3/uL Normal 0.1-0.[address] [facility] Comment on above: Performed By: #### L ACTIC #### [address] [address] Snow Ranger: Chriss Townsend MD Monocytes/100 WBC (Bld) 2 % Normal 1-[address] [facility] Comment on above: Performed By: #### L ACTIC #### [address] [address] Snow Ranger: Chriss Townsend MD Morphology Demetrio (Bld) [Interp] ANISOCYTOSIS PRESENT Normal [facility] Comment on above: Result Comment: DOHL E BODIES PRESENT Performed By: #### L ACTIC #### [address] [address] Snow Ranger: Chriss Townsend MD Neutrophil (Seg) 93 % High 36-66 [facility] Comment on above: Performed By: #### L ACTIC #### [address] [address] Snow Ranger: Chriss Townsend MD Erythrocyte distribution width (RBC) [Ratio] 15.1 % High 11.8-14.[address] [facility] Comment on above: Performed By: #### L ACTIC #### [address] [address] Snow Ranger: Chriss Townsend MD Hematocrit (Bld) [Volume fraction] 32.3 % Low 36.3-47.[address] [address] [facility] Comment on above: Performed By: #### L ACTIC #### [address] [address] Snow Ranger: Chriss Townsend MD Hemoglobin (Bld) [Mass/Vol] 9.9 g/dL Low 11.9-15.[address] [facility] Comment on above: Performed By: #### L ACTIC #### [address] [address] Snow Ranger: Chriss Townsend MD MCH (RBC) [Entitic mass] 30.0 pg Normal 25.2-33.[address] [facility] Comment on above: Performed By: #### L ACTIC #### [address] [address] Snow Ranger: Chriss Townsend MD MCHC (RBC) [Mass/Vol] 30.7 g/dL Normal 28.4-34.8 [facility] Comment on above: Performed By: #### L ACTIC #### [address] [address] Snow Ranger: Chriss Townsend MD MCV (RBC) [Entitic vol] 97.9 fL Normal 82.6-102.[address] [facility] Comment on above: Performed By: #### L ACTIC #### [address] [address] Snow Ranger: Chriss Townsend MD NRBC Automated 0.0 per 100 WBC Normal 0.[address] [facility] Comment on above: Performed By: #### L ACTIC #### [address] [place] [address] Snow Ranger: Chriss Townsend MD Platelet mean volume (Bld) [Entitic vol] 9.8 fL Normal 8.1-13.[address] [facility] Comment on above: Performed By: #### L ACTIC #### [facility] [address] [place] [address] Snow Ranger: Chriss Townsend MD Platelets (Bld) [#/Vol] 130 10*3/uL Low 138-[address] [facility] Comment on above: Performed By: #### L ACTIC #### [address] [address] Snow Ranger: Chriss Townsend MD RBC (Bld) [#/Vol] 3.30 10*6/uL Low 3.95-5.[address] [facility] Comment on above: Performed By: #### L ACTIC #### [address] [address] Snow Ranger: Chriss Townsend MD WBC (Bld) [#/Vol] 9.9 10*3/uL Normal 3.5-11.[address] [facility] Comment on above: Performed By: #### L ACTIC #### [address] [address] Snow Ranger: Chriss Townsend MD Cell Count with Differential , Body Fluidon 08-16-2021 Lymphocytes, Body Fluid 2 % [facility] Comment on above: The reference range and other method performance specifications have not been established for this body fluid. The test result must be integrated into the clinical context for interpretation. Neutrophil Count, Fluid 93 % BON [employer] Comment on above: The reference range and other method performance specifications have not been established for this body fluid. The test result must be integrated into the clinical context for interpretation. Other Cells, Fluid MONOCYTES % BON [employer] Comment on above: The reference range and other method performance specifications have not been established for this body fluid. The test result must be integrated into the clinical context for interpretation. RBC, Fluid 00357 /mm3 [facility] Comment on above: The reference range and other method performance specifications have not been established for this body fluid. The test result must be integrated into the clinical context for interpretation. Specimen type Nom (Spec) .SYNOVIAL FLUID [facility] Comment on above: RIGHT SHOULDER WBC, Fluid 13861 /mm3 [facility] Comment on above: The reference range and other method performance specifications have not been established for this body fluid. The test result must be integrated into the clinical context for interpretation. [facility] Crystals, Body Fluidon 08-16 Crystals, Fluid Negative NEGATIVE [facility] Comment on above: NO CRYSTALS SEEN Specimen type Nom (Spec) .SYNOVIAL FLUID [facility] Comment on above: RIGHT SHOULDER [facility] Crystals, Fluidson 2 Crystals,Fluid Negative Normal NEG [facility] Comment on above: Result Comment: NO C RYSTALS SEEN Performed By: #### L ACTIC #### [facility] [place] [address] Snow Ranger: Chriss Townsend MD ECHO Complete 2D W Doppler W Coloron 08-16-2021 Transthoracic Echocardiography Report (TTE) Patient Name HEMCHAK Date of Study 08/16/2021 MIRIAM A Date of 1955 Gender Female Age 66 year(s) Race Room Number 3022 Height: 64 inch, 162.56 cm Corporate ID [id number] Weight: 220 pounds, 99.8 kg # Patient Acct [id number] BSA: 2.04 m^2 BMI: 37.76 kg/m^2 # MR # [id number] [employer] Evie Jordan Interpreting Physician Esteban Liu Fellow Referring Nurse Practitioner Interpreting Referring Physician Rory Perrin DO Fellow Type of Study TTE procedure:2D Echocardiogram, M-Mode, Doppler, Color Doppler. Procedure Date Date: 08/16/2021 Start: 02:51 PM Study Location: [facility] Technical Quality: Adequate visualization Indications:Rule out vegetation. History / Tech. Comments: Echo done at patient bedside. Procedure explained to patient. Patient Status: Inpatient Height: 64 inches Weight: 220 pounds BSA: 2.04 m^2 BMI: 37.76 kg/m^2 CONCLUSIONS Summary Left ventricle is normal in size. Global left ventricular systolic function is normal. Calculated ejection fraction 63% by Patten's method. Grade I (mild) left ventricular diastolic dysfunction. No obvious valvular abnormality. Trivial tricuspid regurgitation. Mild pulmonary hypertension. Estimated right ventricular systolic pressure is 49mmHg. Signature - - - - FINDINGS Left Atrium Left atrium is normal in size. Left Ventricle Left ventricle is normal in size. Global left ventricular systolic function is normal. Calculated ejection fraction 63% by Patten's method. Grade I (mild) left ventricular diastolic dysfunction. Right Atrium Right atrium is normal in size. Right Ventricle Normal right ventricular size and function. TAPSE value of 2.12cm noted. Mitral Valve Normal mitral valve structure and function. No mitral regurgitation. Aortic Valve Aortic valve is trileaflet and opens adequately. No aortic insufficiency. Tricuspid Valve No obvious valvular abnormality. Trivial tricuspid regurgitation. Mild pulmonary hypertension. Estimated right ventricular systolic pressure is 49mmHg. Pulmonic Valve The pulmonic valve is normal in structure. No pulmonic insufficiency. Pericardial Effusion Anterior echo free space suggestive of adipose tissue is seen. Miscellaneous E/E' average = 19.4. IVC normal diameter & inspiratory collapse indicating normal RA filling pressure . M-mode / 2D Measurements & Calculations: LVIDd:3.2 cm(3.7 - 5.6 cm) Diastolic Volume:40.3 ml LVIDs:2.3 cm(2.2 - 4.0 cm) Systolic Volume:14.7 ml IVSd:1 cm(0.6 - 1.1 cm) Aortic Root:3.1 cm(2.0 - 3.7 cm) LVPWd:0.8 cm(0.6 - 1.1 cm) LA Dimension: 3.5 cm(1.9 - 4.0 cm) Fractional Shortenin.12 % LA volume/Index: 34.6 ml /17m^2 Calculated LVEF (%): 63.52 % LVOT:1.7 cm RVDd:3.4 cm Mitral: Aortic Valve Area (P1/2-Time): 4 cm^2 Peak Velocity: 2.11 m/s Peak E-Wave: 1.13 m/s Mean Velocity: 1.14 m/s Peak A-Wave: 1.59 m/s Peak Gradient: 17.81 mmHg E/A Ratio: 0.71 Mean Gradient: 7 mmHg Peak Gradient: 5.11 mmHg Mean Gradient: 5 mmHg Deceleration Time: 188 msec Area (continuity): 2.17 cm^2 P1/2t: 55 msec AV VTI: 31.1 cm Area (continuity): 2.1 cm^2 Mean Velocity: 0.99 m/s Tricuspid: Pulmonic: Peak TR Velocity: 3.31 m/s Peak Velocity: 1.40 m/s Peak TR Gradient: 43.8244 mmHg Peak Gradient: 7.84 mmHg Diastology / Tissue Doppler Septal Wall E' velocity:0.06 m/s Septal Wall E/E':19.3 Lateral Wall E' velocity:0.06 m/s Lateral Wall E/E':19.6 [facility] STV CPACS Esteban Liu DO - 08/16/2021 Transthoracic Echocardiography Report (TTE) Patient Name FRANCISCO J Date of Study 08/16/2021 MIRIAM Ragsdale Date of 1955 Gender Female Age 66 year(s) Race Room Number 3022 Height: 64 inch, 162.56 cm Corporate ID [id number] Weight: 220 pounds, 99.8 kg # Patient Acct [id number] BSA: 2.04 m^2 BMI: 37.76 kg/m^2 # MR # [id number] [employer] Evie Jordan Interpreting Physician Esteban Liu Fellow Referring Nurse Practitioner Interpreting Referring Physician Rory Perrin DO Fellow Type of Study TTE procedure:2D Echocardiogram, M-Mode, Doppler, Color Doppler. Procedure Date Date: 08/16/2021 Start: 02:51 PM Study Location: [facility] Technical Quality: Adequate visualization Indications:Rule out vegetation. History / Tech. Comments: Echo done at patient bedside. Procedure explained to patient. Patient Status: Inpatient Height: 64 inches Weight: 220 pounds BSA: 2.04 m^2 BMI: 37.76 kg/m^2 CONCLUSIONS Summary Left ventricle is normal in size. Global left ventricular systolic function is normal. Calculated ejection fraction 63% by Ptaten's method. Grade I (mild) left ventricular diastolic dysfunction. No obvious valvular abnormality. Trivial tricuspid regurgitation. Mild pulmonary hypertension. Estimated right ventricular systolic pressure is 49mmHg. Signature - - - - FINDINGS Left Atrium Left atrium is normal in size. Left Ventricle Left ventricle is normal in size. Global left ventricular systolic function is normal. Calculated ejection fraction 63% by Patten's method. Grade I (mild) left ventricular diastolic dysfunction. Right Atrium Right atrium is normal in size. Right Ventricle Normal right ventricular size and function. TAPSE value of 2.12cm noted. Mitral Valve Normal mitral valve structure and function. No mitral regurgitation. Aortic Valve Aortic valve is trileaflet and opens adequately. No aortic insufficiency. Tricuspid Valve No obvious valvular abnormality. Trivial tricuspid regurgitation. Mild pulmonary hypertension. Estimated right ventricular systolic pressure is 49mmHg. Pulmonic Valve The pulmonic valve is normal in structure. No pulmonic insufficiency. Pericardial Effusion Anterior echo free space suggestive of adipose tissue is seen. Miscellaneous E/E' average = 19.4. IVC normal diameter & inspiratory collapse indicating normal RA filling pressure . M-mode / 2D Measurements & Calculations: LVIDd:3.2 cm(3.7 - 5.6 cm) Diastolic Volume:40.3 ml LVIDs:2.3 cm(2.2 - 4.0 cm) Systolic Volume:14.7 ml IVSd:1 cm(0.6 - 1.1 cm) Aortic Root:3.1 cm(2.0 - 3.7 cm) LVPWd:0.8 cm(0.6 - 1.1 cm) LA Dimension: 3.5 cm(1.9 - 4.0 cm) Fractional Shortenin.12 % LA volume/Index: 34.6 ml /17m^2 Calculated LVEF (%): 63.52 % LVOT:1.7 cm RVDd:3.4 cm Mitral: Aortic Valve Area (P1/2-Time): 4 cm^2 Peak Velocity: 2.11 m/s Peak E-Wave: 1.13 m/s Mean Velocity: 1.14 m/s Peak A-Wave: 1.59 m/s Peak Gradient: 17.81 mmHg E/A Ratio: 0.71 Mean Gradient: 7 mmHg Peak Gradient: 5.11 mmHg Mean Gradient: 5 mmHg Deceleration Time: 188 msec Area (continuity): 2.17 cm^2 P1/2t: 55 msec AV VTI: 31.1 cm Area (continuity): 2.1 cm^2 Mean Velocity: 0.99 m/s Tricuspid: Pulmonic: Peak TR Velocity: 3.31 m/s Peak Velocity: 1.40 m/s Peak TR Gradient: 43.8244 mmHg Peak Gradient: 7.84 mmHg Diastology / Tissue Doppler Septal Wall E' velocity:0.06 m/s Septal Wall E/E':19.3 Lateral Wall E' velocity:0.06 m/s Lateral Wall E/E':19.6 [facility] [employer] Work Phone: ECHO Complete 2D W Doppler W ColorOrdered By: Esteban Liu on 08-16-2021 [facility] Phone: Fluid Cell Count and Diffon 08-16-2021 Other Cells MONOCYTES Normal [facility] Comment on above: Result Comment: The reference range and other method performance specifications have not been established for this body fluid. The test result must be integrated into the clinical context for interpretation. Performed By: #### V NCT #### [facility] [address] [place] [address] Snow Ranger: Chriss Townsend MD Magnesiumon 08-16-2021 Magnesium [Mass/Vol] 2.0 mg/dL Normal 1.6-2.6 [facility] Comment on above: Performed By: #### L ACTIC #### [facility] [address] [place] [address] Snow Ranger: Chriss Townsend MD Magnesium [Mass/Vol] 2.0 mg/dL 1.6 - 2 .6 mg/dL [facility] OPERATIVE REPORTon OPERATIVE REPORT [facility] [address] [place] [address] OPERATIVE REPORT PATIENT NAME: MIRIAM GERMAN : 1955 MED REC NO: [id number] ROOM: [facility] ACCOUNT NO: [id number] ADMIT DATE: 08/14/2021 PROVIDER: Baltazar Anthony DO DATE OF PROCEDURE: 08/16/2021 PREOPERATIVE DIAGNOSES: Right shoulder septic arthritis. Right ankle symptomatic hardware. POSTOPERATIVE DIAGNOSES: Right shoulder septic arthritis. Right ankle symptomatic hardware. PROCEDURES PERFORMED: Right shoulder arthroscopy with irrigation and debridement. Right ankle irrigation and debridement with hardware removal. SURGEON: Gerardo Munroe MD ASSISTANTS/RESIDENTS: 1. Baltazar Anthony DO 2. Lara Melissa DO 3. Italo Jordan DO ANESTHESIA: General. ESTIMATED BLOOD LOSS: 20 mL. COMPLICATIONS: None. SPECIMENS: Right shoulder joint fluid. IMPLANTS REMOVED: One screw and K-wires to right ankle. DRAINS: None. FINDINGS: Purulent fluid in the right shoulder joint and retained hardware of right ankle. INDICATIONS FOR THE PROCEDURE: The patient is a 66-year-old female who presented to [place] several days ago with severe right shoulder pain and right ankle pain. She had an elevated inflammatory markers as well meeting SIRS criteria. An aspiration was obtained of the right shoulder joint, which demonstrated positive blood cultures for Gram-positive cocci. Her inflammatory markers were significantly elevated; therefore, we discussed irrigation and debridement of the right shoulder with arthroscopic debridement. She also was complaining of significant pain of her right ankle with any range of motion and had a prior ankle ORIF several years ago; therefore, we planned to proceed forward with irrigation, debridement, and presumed hardware infection due to her positive blood cultures with hardware removal. We discussed risks and benefits of the procedure including but not limited to bleeding, blood clots, infection, wound healing complications, damage to surrounding structures, residual pain and stiffness, need for further surgeries, loss of limb and life. The patient understood these risks and wished to proceed forward with surgery. OPERATIVE PROCEDURE: The patient was then taken to the operative suite from the floor. She was intubated on the hospital bed and then transferred over to the beach chair table. She was then sedated and intubated by the anesthesia team without any complications. We proceeded to place on the beach chair position, the head was secured and no excessive flexion or extension or side bending. We proceeded to then prep and drape the right upper extremity and right lower extremity. We then had a time-out. Procedure, patient, and operative site were confirmed and all were agreeance in the OR prior to proceeding. We then proceeded to start with the arthroscopic portion of the case. We used an #11 blade to perform our posterolateral portal and inserted the arthroscope into the joint. We immediately noted purulent fluid, which was harvested and sent for analysis. 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 She was also noted to have a massive rotator cuff tear as well as her biceps that itself tenotomized. The subscap appeared to be intact. The labrum had degenerative changes. We quickly established an anterior portal and inserted an arthroscopic shaver. We debrided any loose synovium and any other nonviable tissue. We ran 9 total liters of fluid to the joint and then proceeded into the subacromial joint where we also ran 3 more liters of fluid through. Following this, we then exsanguinated the arthroscopic fluid and closed the portal incisions with 3-0 nylon and a soft sterile dressing was applied. We then proceeded to the right ankle. We used the patient's prior medial incision and incised through the skin and subcutaneous tissue. We identified the saphenous vein and mobilized it. Following this, we were able to identify the hardware in the ankle. We made a small arthrotomy in the ankle, which did demonstrate no fluid or signs or symptoms of infection. We proceeded to remove the screw and then the K-wires and tension band construct. Following removal, we then proceeded to copiously irrigate the wound with 3 liters of normal saline. The incision was then closed in a layered fashion and a soft sterile dressing was applied. The patient was then awoken from anesthesia and transferred over to the hospital bed and taken to the PACU in stable condition. She will go back to ICU. We will continue antibiotics and follow up culture results. BALTAZAR ANTHONY DO [id number] Doc#: [id number] CC: Normal [facility] Vancomycin Level, Troughon 0 08-16-2021 Interpretation and review of laboratory results Abnormal [facility] Vancomycin Tr 8.3 ug/mL Low 10.0 - 20.0 ug/mL [facility] Comment on above: Higher trough serum vancomycin concentrations of 15-20 ug/mL are recommended for complicated infections such as bacteremia, endocarditis, osteomyelitis, meningitis, and hospital acquired pneumonia. [facility] Vancomycin Troughon 08-17-19 Vancomycin Trough 8.3 ug/mL Low 10.0-20.0 [facility] Comment on above: Result Comment: High er trough serum vancomycin concentrations of 15-20 ug/mL are recommended for complicated infections such as bacteremia, endocarditis, osteomyelitis, meningitis, and hospital acquired pneumonia. Performed By: #### V NCT #### [facility] [place] [address] Snow Ranger: Chriss Townsend MD XR ANKLE RIGHT (MIN 3 VIEWS) on 08-16-2021 Degenerative changes seen at the ankle with postoperative change and interval removal of the ORIF hardware. [facility] RIS CONSOLIDATED EXAMINATION: THREE XRAY VIEWS OF THE RIGHT ANKLE 08/16/2021 10:03 pm COMPARISON: 08/15/2021 HISTORY: ORDERING SYSTEM PROVIDED HISTORY: Post op pacu TECHNOLOGIST PROVIDED HISTORY: Post op pacu Reason for Exam: Post op FINDINGS: Postoperative hardware has been removed. Soft tissue gas seen related to the postoperative process. Small osseous fragment seen adjacent to the lateral malleolus, also noted on recent CT imaging done 2 days earlier. Calcaneal spurring at the plantar aponeurosis. [facility] Collette Rodriguez MD - 08/16/2021 EXAMINATION: THREE XRAY VIEWS OF THE RIGHT ANKLE 08/16/2021 10:03 pm COMPARISON: 08/15/2021 HISTORY: ORDERING SYSTEM PROVIDED HISTORY: Post op pacu TECHNOLOGIST PROVIDED HISTORY: Post op pacu Reason for Exam: Post op FINDINGS: Postoperative hardware has been removed. Soft tissue gas seen related to the postoperative process. Small osseous fragment seen adjacent to the lateral malleolus, also noted on recent CT imaging done 2 days earlier. Calcaneal spurring at the plantar aponeurosis. IMPRESSION: Degenerative changes seen at the ankle with postoperative change and interval removal of the ORIF hardware. [employer] Phone: Radiology Study observation (narrative) [employer] Phone: XR ANKLE RIGHT (MIN 3 VIEWS) Ordered By: Collette Contreras on 08-16-2021 [employer] Phone: Basic Metab w/rfx MGon 08-15 (cont.) Normal [facility] Comment on above: Result Comment: Aver age GFR for 60-69 years old: 85 mL/min/1.73sq m Chronic Kidney Disease: <60 mL/min/1.73sq m Kidney failure: <15 mL/min/1.73sq m eGFR calculated using average adult body mass. Additional eGFR calculator available at: http://www.VoluBill.Zoutons/multiple_crcl_2011.htm Performed By: #### C RP, CDP, SED #### [facility] [address] [place], [place] [id number] Snow Ranger: Chriss Townsend MD Anion gap [Moles/Vol] 12 mmol/L Normal 9-17 [facility] Comment on above: Performed By: #### C RP, CDP, SED #### [facility] [address] [place] [address] Snow Ranger: Chriss Townsend MD Calcium [Mass/Vol] 9.2 mg/dL Normal 8.6-10.[address] [facility] Comment on above: Performed By: #### C RP, CDP, SED #### [facility] [address] [place] [address] Snow Ranger: Chriss Townsend MD Chloride [Moles/Vol] 109 mmol/L High 98-107 [facility] Comment on above: Performed By: #### C RP, CDP, SED #### [facility] [address] [place] [address] Snow Ranger: Chriss Townsend MD CO2 [Moles/Vol] 20 mmol/L Normal 20-[address] [facility] Comment on above: Performed By: #### C RP, CDP, SED #### [address] [address] Snow Ranger: Chriss Townsend MD Creatinine [Mass/Vol] 0.60 mg/dL Normal 0.50-0.90 [facility] Comment on above: Performed By: #### C RP, CDP, SED #### [address] [address] Snow Ranger: Chriss Townsend MD GFR, Amer >60 Normal >60 [facility] Comment on above: Performed By: #### C RP, CDP, SED #### [facility] [address] [place] [address] Snow Ranger: Chriss Townsend MD GFR,non Amer >60 Normal >60 [facility] Comment on above: Performed By: #### C RP, CDP, SED #### [facility] [address] [place] [address] Snow Ranger: Chriss Townsend MD Glucose [Mass/Vol] 78 mg/dL Normal 70-[address] [facility] Comment on above: Performed By: #### C RP, CDP, SED #### [facility] [address] [place] [address] Snow Ranger: Chriss Townsend MD Potassium [Moles/Vol] 4.1 mmol/L Normal 3.7-5.3 [facility] Comment on above: Performed By: #### C RP, CDP, SED #### [facility] [address] [place] [address] Snow Ranger: Chriss Townsend MD Sodium [Moles/Vol] 141 mmol/L Normal 135-[address] [facility] Comment on above: Performed By: #### C RP, CDP, SED #### [facility] [place] [address] Snow Ranger: Chriss Townsend MD Urea nitrogen [Mass/Vol] 12 mg/dL Normal 8-[address] [facility] Comment on above: Performed By: #### C RP, CDP, SED #### [facility] [address] [place] [address] Snow Ranger: Chriss Townsend MD Basic Metabolic Panel w/ Ref sujatha to MGon 08-15-2021 Anion gap [Moles/Vol] 12 mmol/L 9 - 17 mmol/L [facility] [employer] Calcium [Mass/Vol] 9.2 mg/dL 8.6 - 10. 4 mg/dL [facility] Chloride [Moles/Vol] 109 mmol/L High 98 - 10 7 mmol/L [facility] [employer] CO2 [Moles/Vol] 20 mmol/L 20 - 31 mmol/L [facility] Creatinine [Mass/Vol] 0.6 mg/dL 0.50 - 0.90 mg/dL [facility] GFR >60 >60 mL/min [facility] [employer] GFR Non- >60 >60 mL/min [facility] [employer] GFR/1.73 sq M.predicted MDRD (S/P/Bld) [Vol rate/Area] [facility] Comment on above: Average GFR for 60-6 9 years old: 85 mL/min/1.73sq m Chronic Kidney Disease: <60 mL/min/1.73sq m Kidney failure: <15 mL/min/1.73sq m eGFR calculated using average adult body mass. Additional eGFR calculator available at: http://www.Rotten Tomatoes/multiple_crcl_2011.htm Glucose [Mass/Vol] 78 mg/dL 70 - 99 mg/dL [facility] Interpretation and review of laboratory results Abnormal [facility] Potassium [Moles/Vol] 4.1 mmol/L 3.7 - 5.3 mmol/L [facility] Sodium [Moles/Vol] 141 mmol/L 135 - 144 mmol/L [facility] Urea nitrogen (BldV) [Mass/Vol] 12 mg/dL 8 - 23 mg/dL [facility] CBC with Auto Differentialon 08-15-2021 Absolute Eos # 0.00 [facility] Absolute Immature Granulocyte 0.00 [facility] Absolute Lymph # 0.85 Low [facility] Absolute Haskell # 0.17 [facility] Basophils (Bld) [#/Vol] 0.00 10*3/uL [facility] Basophils/100 WBC (Bld) 0 % 0 - 2 % [facility] Eosinophils/100 WBC (Bld) 0 % Low 1 - 4 % [facility] Hematocrit (Bld) [Volume fraction] 37.5 % 36.3 - 47.1 % [facility] Hemoglobin.gastrointe stinal spec 1 Ql (Stl) 11.7 g/dL Low 11.9 - 15.1 g/dL [facility] Immature granulocytes/100 WBC (Bld) 0 % 0 [facility] Interpretation and review of laboratory results Abnormal [facility] Lymphocytes/100 WBC (Bld) 5 % Low 24 - 44 % [facility] MCH (RBC) [Entitic mass] 30.2 pg 25.2 - 33.5 pg [facility] MCHC (RBC) [Mass/Vol] 31.2 g/dL 28.4 - 34.8 g/dL [facility] MCV (RBC) [Entitic vol] 96.9 fL 82.6 - 102.9 fL [facility] Monocytes/100 WBC (Bld) 1 % 1 - 7 % [facility] Morphology Demetrio (Bld) [Interp] ANISOCYTOSIS PRESENT [facility] Morphology Demetrio (Bld) [Interp] INCREASED BANDS PRESENT [facility] NRBC Automated 0.0 0.0 per 100 WBC [facility] Platelet distribution width (Bld) [Ratio] 15.2 % High 11.8 - 14.4 % [facility] Platelet mean volume (Bld) [Entitic vol] 9.9 fL 8.1 - 13.5 fL [facility] Platelets (Bld) [#/Vol] 183 10*3/uL [facility] RBC (Bld) [#/Vol] 3.87 10*6/uL Low 3.95 - 5.1 1 m/uL [facility] Segmented neutrophils/100 WBC (Bld) 94 % High 36 - 66 % [facility] Segs Absolute 15.88 High [facility] WBC (Bld) [#/Vol] 16.9 10*3/uL High [facility] CBC with Diffon 08-15-2021 Abs. Basophil 0.00 k/uL Normal 0.0-0.[address] [facility] Comment on above: Performed By: #### C MARC CDP, SED #### [facility] [address] [place] [address] Snow Ranger: Chriss Townsend MD Abs.Imm.Granulocyte 0.00 k/uL Normal 0.00-0.[address] [facility] Comment on above: Performed By: #### C RP, CDP, SED #### [facility] [address] [place] [address] Snow Ranger: Chriss Townsend MD Abs.Neutrophil (Seg) 15.88 k/uL High 1.8-7.7 [facility] Comment on above: Performed By: #### C RP, CDP, SED #### [facility] [address] [place] [address] Snow Ranger: Chriss Townsend MD Basophils/100 WBC (Bld) 0 % Normal 0-[address] [facility] Comment on above: Performed By: #### C RP, CDP, SED #### [facility] [address] [place] [id number] Snow Ranger: Chriss Townsend MD Eosinophils (Bld) [#/Vol] 0.00 10*3/uL Normal 0.0-0.[address] [facility] Comment on above: Performed By: #### C RP, CDP, SED #### [address] [address] Snow Ranger: Chriss Townsend MD Eosinophils/100 WBC (Bld) 0 % Low 1-[address] [facility] Comment on above: Performed By: #### C RP, CDP, SED #### [address] [address] Snow Ranger: Chriss Townsend MD Immature granulocytes/100 WBC (Bld) 0 % Normal [address] [facility] Comment on above: Performed By: #### C RP, CDP, SED #### [address] [address] Snow Ranger: Chriss Tonwsend MD Lymphocytes (Bld) [#/Vol] 0.85 10*3/uL Low 1.0-4.[address] [facility] Comment on above: Performed By: #### C RP, CDP, SED #### [facility] [address] [place] [address] Snow Ranger: Chriss Townsend MD Lymphocytes/100 WBC (Bld) 5 % Low 24-[address] [facility] Comment on above: Performed By: #### C RP, CDP, SED #### [facility] [address] [place] [address] Snow Ranger: Chriss Townsend MD Monocytes (Bld) [#/Vol] 0.17 10*3/uL Normal 0.1-0.[address] [facility] Comment on above: Performed By: #### C RP, CDP, SED #### [address] [address] Snow Ranger: Chriss Townsend MD Monocytes/100 WBC (Bld) 1 % Normal 1-[address] [facility] Comment on above: Performed By: #### C RP, CDP, SED #### [facility] [address] [place] [address] Snow Ranger: Chriss Townsend MD Morphology Demetrio (Bld) [Interp] ANISOCYTOSIS PRESENT Normal [facility] Comment on above: Result Comment: INCR EASED BANDS PRESENT Performed By: #### C RP, CDP, SED #### [address] [address] Snow Ranger: Chriss Townsend MD Neutrophil (Seg) 94 % High 36-66 [facility] Comment on above: Performed By: #### C RP, CDP, SED #### [address] [address] Snow Ranger: Chriss Townsend MD Erythrocyte distribution width (RBC) [Ratio] 15.2 % High 11.8-14.[address] [facility] Comment on above: Performed By: #### C RP, CDP, SED #### [facility] [address] [place] [address] Snow Ranger: Chriss Townsend MD Hematocrit (Bld) [Volume fraction] 37.5 % Normal 36.3-47.[address] [facility] Comment on above: Performed By: #### C RP, CDP, SED #### [facility] [address] [place] [address] Snow Ranger: Chriss Townsend MD Hemoglobin (Bld) [Mass/Vol] 11.7 g/dL Low 11.9-15.[address] [facility] Comment on above: Performed By: #### C RP, CDP, SED #### [address] [address] Snow Ranger: Chriss Townsend MD MCH (RBC) [Entitic mass] 30.2 pg Normal 25.2-33.[address] [facility] Comment on above: Performed By: #### C RP, CDP, SED #### [place] [address] Snow Ranger: Chriss Townsend MD MCHC (RBC) [Mass/Vol] 31.2 g/dL Normal 28.4-34.8 [facility] Comment on above: Performed By: #### C RP, CDP, SED #### [place] [address] Snow Ranger: Chriss Townsend MD MCV (RBC) [Entitic vol] 96.9 fL Normal 82.6-102.[address] [facility] Comment on above: Performed By: #### C RP, CDP, SED #### [place] [address] Snow Ranger: Chriss Townsend MD NRBC Automated 0.0 per 100 WBC Normal 0.[address] [facility] Comment on above: Performed By: #### C RP, CDP, SED #### [place] [address] Snow Ranger: Chriss Townsend MD Platelet mean volume (Bld) [Entitic vol] 9.9 fL Normal 8.1-13.[address] [facility] Comment on above: Performed By: #### C RP, CDP, SED #### [place] [address] Snow Ranger: Chriss Townsend MD Platelets (Bld) [#/Vol] 183 10*3/uL Normal 138-[address] [facility] Comment on above: Performed By: #### C RP, CDP, SED #### [facility] [address] [place] [address] Snow Ranger: Chriss Townsend MD RBC (Bld) [#/Vol] 3.87 10*6/uL Low 3.95-5.[address] [facility] Comment on above: Performed By: #### C RP, CDP, SED #### [facility] [address] [place] [address] Snow Ranger: Chriss Townsend MD WBC (Bld) [#/Vol] 16.9 10*3/uL High 3.5-11.[address] [facility] Comment on above: Performed By: #### C RP, CDP, SED #### [facility] [address] [place] [address] Snow Ranger: Chriss Townsend MD [facility] 08-15-2021 CK [Catalytic activity/Vol] 33 U/L 26 - 192 U/L [facility] CK [Catalytic activity/Vol] 42 U/L 26 - 192 U/L [facility] CK [Catalytic activity/Vol] 44 U/L 26 - 192 U/L [facility] CT CERVICAL SPINE WO CONTRAS Ton 08-15-2021 CT CERVICAL SPINE WO CONTRAST EXAMINATION: CT OF THE CERVICAL SPINE WITHOUT CONTRAST 08/15/2021 10:40 am TECHNIQUE: CT of the cervical spine was performed without the administration of intravenous contrast. Multiplanar reformatted images are provided for review. Automated exposure control, iterative reconstruction, and/or weight based adjustment of the mA/kV was utilized to reduce the radiation dose to as low as reasonably achievable. COMPARISON: None. HISTORY: ORDERING SYSTEM PROVIDED HISTORY: neck pain TECHNOLOGIST PROVIDED HISTORY: neck pain FINDINGS: BONES/ALIGNMENT: There is no acute fracture or traumatic malalignment. DEGENERATIVE CHANGES: There are advanced osteoarthritic changes of the C4-C5, C5-C6 and C6-C7 discs, with disc space narrowing and posterior and anterior osteophytes. There is moderate osteoarthritis of the right facet joints. SOFT TISSUES: There is no prevertebral soft tissue swelling. IMPRESSION: No acute abnormality of the cervical spine. Degenerative disc disease of C4-C5, C5-C6 and C6-C7 disc, with osteoarthritis of the right facet joints. Interpreted by: Josh Jackson MD Signed by: Josh Jackson MD 08/15/21 Final result Normal [facility] No acute abnormality of the cervical spine. Degenerative disc disease of C4-C5, C5-C6 and C6-C7 disc, with osteoarthritis of the right facet joints. [facility] EXAMINATION: CT OF THE CERVICAL SPINE WITHOUT CONTRAST 08/15/2021 10:40 am TECHNIQUE: CT of the cervical spine was performed without the administration of intravenous contrast. Multiplanar reformatted images are provided for review. Automated exposure control, iterative reconstruction, and/or weight based adjustment of the mA/kV was utilized to reduce the radiation dose to as low as reasonably achievable. COMPARISON: None. HISTORY: ORDERING SYSTEM PROVIDED HISTORY: neck pain TECHNOLOGIST PROVIDED HISTORY: neck pain FINDINGS: BONES/ALIGNMENT: There is no acute fracture or traumatic malalignment. DEGENERATIVE CHANGES: There are advanced osteoarthritic changes of the C4-C5, C5-C6 and C6-C7 discs, with disc space narrowing and posterior and anterior osteophytes. There is moderate osteoarthritis of the right facet joints. SOFT TISSUES: There is no prevertebral soft tissue swelling. [facility] Josh Jackson MD - 08/15/2021 EXAMINATION: CT OF THE CERVICAL SPINE WITHOUT CONTRAST 08/15/2021 10:40 am TECHNIQUE: CT of the cervical spine was performed without the administration of intravenous contrast. Multiplanar reformatted images are provided for review. Automated exposure control, iterative reconstruction, and/or weight based adjustment of the mA/kV was utilized to reduce the radiation dose to as low as reasonably achievable. COMPARISON: None. HISTORY: ORDERING SYSTEM PROVIDED HISTORY: neck pain TECHNOLOGIST PROVIDED HISTORY: neck pain FINDINGS: BONES/ALIGNMENT: There is no acute fracture or traumatic malalignment. DEGENERATIVE CHANGES: There are advanced osteoarthritic changes of the C4-C5, C5-C6 and C6-C7 discs, with disc space narrowing and posterior and anterior osteophytes. There is moderate osteoarthritis of the right facet joints. SOFT TISSUES: There is no prevertebral soft tissue swelling. IMPRESSION: No acute abnormality of the cervical spine. Degenerative disc disease of C4-C5, C5-C6 and C6-C7 disc, with osteoarthritis of the right facet joints. [employer] Work Phone: CT CERVICAL SPINE WO CONTRAS TOrdered By: Josh Jackson on 08-15-2021 [employer] Work Phone: CT FEMUR LEFT W CONTRASTon 0 08-15-2021 CT FEMUR LEFT W CONTRAST EXAMINATION: CT OF THE LEFT FEMUR WITH CONTRAST; CT OF THE LEFT TIBIA AND FIBULA WITH CONTRAST 08/14/2021 9:01 pm TECHNIQUE: CT of the left femur was performed with the administration of intravenous contrast. Multiplanar reformatted images are provided for review. Automated exposure control, iterative reconstruction, and/or weight based adjustment of the mA/kV was utilized to reduce the radiation dose to as low as reasonably achievable.; CT of the left tibia and fibula was performed with the administration of intravenous contrast. Multiplanar reformatted images are provided for review. Automated exposure control, iterative reconstruction, and/or weight based adjustment of the mA/kV was utilized to reduce the radiation dose to as low as reasonably achievable. COMPARISON: None. HISTORY ORDERING SYSTEM PROVIDED HISTORY: concern for nec fasc TECHNOLOGIST PROVIDED HISTORY: concern for nec fasc FINDINGS: Bones: At the medial aspect of body of the left pubis, there is healing fracture with mild surrounding, predominantly anterior, soft tissue swelling. Question of nondisplaced very subtle fracture at the anterior aspect of the acetabulum which may represent artifact. On the right, sclerotic reaction is present at the mid inferior pubic ramus likely representing healing fracture. No displacement. Osseous structures of the femur, tibia/fibula and visualized foot are otherwise unremarkable. Soft Tissue: No evidence of necrotizing fasciitis. There is mild superficial subcutaneous edema at the posterior and lateral aspects of the lower leg extending into the plantar aspect of the hindfoot. Joint: Mild degenerative changes incidentally noted. IMPRESSION: No evidence of necrotizing fasciitis throughout the visualized left lower extremity. Healing fracture evident at the body of the left pubis and mid right inferior pubic ramus. Questionable very subtle nondisplaced fracture at the anterior aspect of the left acetabulum. This may represent artifact. Interpreted by: Mik Cantu Signed by: Mik Cantu 08/14/21 Final result Normal [facility] CT FEMUR RIGHT W CONTRASTon 08-15-2021 CT FEMUR RIGHT W CONTRAST EXAMINATION: CT OF THE RIGHT FEMUR WITH CONTRAST; CT OF THE RIGHT TIBIA AND FIBULA WITH CONTRAST 08/14/2021 9:01 pm TECHNIQUE: CT of the right femur was performed with the administration of intravenous contrast. Multiplanar reformatted images are provided for review. Automated exposure control, iterative reconstruction, and/or weight based adjustment of the mA/kV was utilized to reduce the radiation dose to as low as reasonably achievable.; CT of the right tibia and fibula was performed with the administration of intravenous contrast. Multiplanar reformatted images are provided for review. Automated exposure control, iterative reconstruction, and/or weight based adjustment of the mA/kV was utilized to reduce the radiation dose to as low as reasonably achievable. COMPARISON: None. HISTORY ORDERING SYSTEM PROVIDED HISTORY: concern for nec fasc TECHNOLOGIST PROVIDED HISTORY: concern for nec fasc FINDINGS: Bones: Healing fractures at the medial body of the left pubis and mid inferior right pubic ramus. Osseous structures of the entire right lower extremity are otherwise unremarkable. Soft Tissue: No evidence of necrotizing fasciitis. Minor superficial edema in the subcutaneous fatty tissues is present lateral to the right hip and intermittently in the lateral and posterior aspects of the lower leg. Soft tissues of the right lower extremity are otherwise unremarkable. Joint: Mild degenerative changes incidentally noted. IMPRESSION: No evidence of necrotizing fasciitis of the right lower extremity. Mild superficial subcutaneous fatty edema lateral to the right hip and intermittently laterally and posteriorly in the lower leg. Healing fractures at the medial aspect of the left body of pubis and mid right inferior pubic ramus. Interpreted by: Mik Cantu Signed by: Mik Cantu 08/15/21 Final result Normal [facility] CT HEAD WO CONTRASTon 2021 CT HEAD WO CONTRAST EXAMINATION: CT OF THE HEAD WITHOUT CONTRAST 08/15/2021 10:40 am TECHNIQUE: CT of the head was performed without the administration of intravenous contrast. Automated exposure control, iterative reconstruction, and/or weight based adjustment of the mA/kV was utilized to reduce the radiation dose to as low as reasonably achievable. COMPARISON: None. 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 There is no acute intracranial hemorrhage, mass effect or midline shift. No abnormal extra-axial fluid collection. The norris-white differentiation is maintained without evidence of an acute infarct. There is no evidence of hydrocephalus. ORBITS: The visualized portion of the orbits demonstrate no acute abnormality. SINUSES: The visualized paranasal sinuses and mastoid air cells demonstrate no acute abnormality. SOFT TISSUES/SKULL: No acute abnormality of the visualized skull or soft tissues. IMPRESSION: No acute intracranial abnormality. If there remains concern for meningitis contrast-enhanced MRI suggested Interpreted by: Alessio Brady MD Signed by: Alessio Brady MD 08/15/21 Final result Normal [facility] No acute intracrania l abnormality. If there remains concern for meningitis contrast-enhanced MRI suggested [facility] EXAMINATION: CT OF THE HEAD WITHOUT CONTRAST 08/15/2021 10:40 am TECHNIQUE: CT of the head was performed without the administration of intravenous contrast. Automated exposure control, iterative reconstruction, and/or weight based adjustment of the mA/kV was utilized to reduce the radiation dose to as low as reasonably achievable. COMPARISON: None. 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 There is no acute intracranial hemorrhage, mass effect or midline shift. No abnormal extra-axial fluid collection. The norris-white differentiation is maintained without evidence of an acute infarct. There is no evidence of hydrocephalus. ORBITS: The visualized portion of the orbits demonstrate no acute abnormality. SINUSES: The visualized paranasal sinuses and mastoid air cells demonstrate no acute abnormality. SOFT TISSUES/SKULL: No acute abnormality of the visualized skull or soft tissues. [facility] Alessio Brady MD - 08/15/2021 EXAMINATION: CT OF THE HEAD WITHOUT CONTRAST 08/15/2021 10:40 am TECHNIQUE: CT of the head was performed without the administration of intravenous contrast. Automated exposure control, iterative reconstruction, and/or weight based adjustment of the mA/kV was utilized to reduce the radiation dose to as low as reasonably achievable. COMPARISON: None. 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 There is no acute intracranial hemorrhage, mass effect or midline shift. No abnormal extra-axial fluid collection. The norris-white differentiation is maintained without evidence of an acute infarct. There is no evidence of hydrocephalus. ORBITS: The visualized portion of the orbits demonstrate no acute abnormality. SINUSES: The visualized paranasal sinuses and mastoid air cells demonstrate no acute abnormality. SOFT TISSUES/SKULL: No acute abnormality of the visualized skull or soft tissues. IMPRESSION: No acute intracranial abnormality. If there remains concern for meningitis contrast-enhanced MRI suggested [employer] Phone: CT HEAD WO CONTRASTOrdered B y: Alessio Brady on 08-15-2021 [employer] Phone: CT HUMERUS RIGHT W CONTRASTo n 08-15-2021 CT HUMERUS RIGHT W CONTRAST ADDENDUM: Critical results were called by Dr. Mik Cantu to Dr. Mcelroy on 08/15/2021 at 00:07. Electronically Signed by: MIK CANTU on ThuAugust 15, 2021 12:34:12 AM EDT EXAMINATION: CT OF THE RIGHT HUMERUS WITH CONTRAST; CT OF THE RIGHT SHOULDER WITH CONTRAST 08/14/2021 9:02 pm TECHNIQUE: CT of the right humerus was performed with the administration of intravenous contrast. Multiplanar reformatted images are provided for review. Automated exposure control, iterative reconstruction, and/or weight based adjustment of the mA/kV was utilized to reduce the radiation dose to as low as reasonably achievable.; CT of the right shoulder was performed with the administration of intravenous contrast. Multiplanar reformatted images are provided for review. Automated exposure control, iterative reconstruction, and/or weight based adjustment of the mA/kV was utilized to reduce the radiation dose to as low as reasonably achievable. COMPARISON: None. HISTORY ORDERING SYSTEM PROVIDED HISTORY: concern for nec fasc TECHNOLOGIST PROVIDED HISTORY: concern for nec fasc FINDINGS: Bones: No evidence of acute fracture or dislocation. No aggressive appearing osseous abnormality or periostitis. Bone density is normal. Soft Tissue: Mild subcutaneous fatty tissue edema surrounds the superior, anterior and posterior aspects of the shoulder and extends inferiorly down the lateral aspect of the arm. Additionally, there is mild edema within the axilla which may also involve the coracobrachialis muscle. Within the upper portion of the belly of the coracobrachialis muscle, soft tissue air is present. It is localized and no other soft tissue air is identified. There is prominence of the subacromial/subdeltoid bursa posterolaterally. There is enhancement of the capsule of the bursa. Joint: No significant degenerative changes. No osseous erosions. IMPRESSION: Soft tissue air identified within upper portion of the coracobrachialis muscle which shows surrounding inflammatory change. This raises concern for necrotizing fasciitis although no other soft tissue gas is evident. This could potentially represent intravenous air related to the contrast injection. Inflammatory change/edema otherwise involves deeper subcutaneous fatty tissues anterior, superior and posterior to the shoulder and more superficially down the lateral aspect of the upper arm. Interpreted by: Mik Cantu Signed by: Mik Cantu 08/15/21 Edited Result - FINAL Normal [facility] CT LUMBAR SPINE WO CONTRASTo n 08-15-2021 CT LUMBAR SPINE WO CONTRAST EXAMINATION: CT OF THE LUMBAR SPINE WITHOUT CONTRAST 08/15/2021 TECHNIQUE: CT of the lumbar spine was performed without the administration of intravenous contrast. Multiplanar reformatted images are provided for review. Adjustment of mA and/or kV according to patient size was utilized. Automated exposure control, iterative reconstruction, and/or weight based adjustment of the mA/kV was utilized to reduce the radiation dose to as low as reasonably achievable. COMPARISON: None HISTORY: ORDERING SYSTEM PROVIDED HISTORY: fall in june, back pain TECHNOLOGIST PROVIDED HISTORY: fall in june, back pain FINDINGS: BONES/ALIGNMENT: There are bilateral sacral insufficiency fractures involving the sacral wings. DEGENERATIVE CHANGES: There is mild posterior disc bulge with osteoarthritis of the facet joints at L3-L4, with mild central stenosis. There is prominent osteoarthritis of the L4-L5 facet joints without central stenosis. There is prominent osteoarthritis of the L5-S1 facet joints without central stenosis. SOFT TISSUES/RETROPERITONEUM: No paraspinal mass is seen. IMPRESSION: Bilateral sacral wing insufficiency fractures. Degenerative changes as described above. Interpreted by: Josh Jackson MD Signed by: Josh Jackson MD 08/15/21 Final result Normal [facility] Bilateral sacral win g insufficiency fractures. Degenerative changes as described above. [facility] EXAMINATION: CT OF THE LUMBAR SPINE WITHOUT CONTRAST 08/15/2021 TECHNIQUE: CT of the lumbar spine was performed without the administration of intravenous contrast. Multiplanar reformatted images are provided for review. Adjustment of mA and/or kV according to patient size was utilized. Automated exposure control, iterative reconstruction, and/or weight based adjustment of the mA/kV was utilized to reduce the radiation dose to as low as reasonably achievable. COMPARISON: None HISTORY: ORDERING SYSTEM PROVIDED HISTORY: fall in june, back pain TECHNOLOGIST PROVIDED HISTORY: fall in june, back pain FINDINGS: BONES/ALIGNMENT: There are bilateral sacral insufficiency fractures involving the sacral wings. DEGENERATIVE CHANGES: There is mild posterior disc bulge with osteoarthritis of the facet joints at L3-L4, with mild central stenosis. There is prominent osteoarthritis of the L4-L5 facet joints without central stenosis. There is prominent osteoarthritis of the L5-S1 facet joints without central stenosis. SOFT TISSUES/RETROPERITONEUM: No paraspinal mass is seen. [facility] Josh Jackson MD - 08/15/2021 EXAMINATION: CT OF THE LUMBAR SPINE WITHOUT CONTRAST 08/15/2021 TECHNIQUE: CT of the lumbar spine was performed without the administration of intravenous contrast. Multiplanar reformatted images are provided for review. Adjustment of mA and/or kV according to patient size was utilized. Automated exposure control, iterative reconstruction, and/or weight based adjustment of the mA/kV was utilized to reduce the radiation dose to as low as reasonably achievable. COMPARISON: None HISTORY: ORDERING SYSTEM PROVIDED HISTORY: fall in june, back pain TECHNOLOGIST PROVIDED HISTORY: fall in june, back pain FINDINGS: BONES/ALIGNMENT: There are bilateral sacral insufficiency fractures involving the sacral wings. DEGENERATIVE CHANGES: There is mild posterior disc bulge with osteoarthritis of the facet joints at L3-L4, with mild central stenosis. There is prominent osteoarthritis of the L4-L5 facet joints without central stenosis. There is prominent osteoarthritis of the L5-S1 facet joints without central stenosis. SOFT TISSUES/RETROPERITONEUM: No paraspinal mass is seen. IMPRESSION: Bilateral sacral wing insufficiency fractures. Degenerative changes as described above. [facility] [employer] Work Phone: [facility] [employer] Work Phone: CT RADIUS ULNA RIGHT W CONTR Stephenie 08-15-2021 Radiology Study observation (narrative) [facility] Phone: CT SHOULDER RIGHT W CONTRAST on 08-15-2021 CT SHOULDER RIGHT W CONTRAST ADDENDUM: Critical results were called by Dr. Mik Cantu to Dr. Mcelroy on 08/15/2021 at 00:07. Electronically Signed by: MIK CANTU on ThuAugust 15, 2021 12:34:13 AM EDT EXAMINATION: CT OF THE RIGHT HUMERUS WITH CONTRAST; CT OF THE RIGHT SHOULDER WITH CONTRAST 08/14/2021 9:02 pm TECHNIQUE: CT of the right humerus was performed with the administration of intravenous contrast. Multiplanar reformatted images are provided for review. Automated exposure control, iterative reconstruction, and/or weight based adjustment of the mA/kV was utilized to reduce the radiation dose to as low as reasonably achievable.; CT of the right shoulder was performed with the administration of intravenous contrast. Multiplanar reformatted images are provided for review. Automated exposure control, iterative reconstruction, and/or weight based adjustment of the mA/kV was utilized to reduce the radiation dose to as low as reasonably achievable. COMPARISON: None. HISTORY ORDERING SYSTEM PROVIDED HISTORY: concern for nec fasc TECHNOLOGIST PROVIDED HISTORY: concern for nec fasc FINDINGS: Bones: No evidence of acute fracture or dislocation. No aggressive appearing osseous abnormality or periostitis. Bone density is normal. Soft Tissue: Mild subcutaneous fatty tissue edema surrounds the superior, anterior and posterior aspects of the shoulder and extends inferiorly down the lateral aspect of the arm. Additionally, there is mild edema within the axilla which may also involve the coracobrachialis muscle. Within the upper portion of the belly of the coracobrachialis muscle, soft tissue air is present. It is localized and no other soft tissue air is identified. There is prominence of the subacromial/subdeltoid bursa posterolaterally. There is enhancement of the capsule of the bursa. Joint: No significant degenerative changes. No osseous erosions. IMPRESSION: Soft tissue air identified within upper portion of the coracobrachialis muscle which shows surrounding inflammatory change. This raises concern for necrotizing fasciitis although no other soft tissue gas is evident. This could potentially represent intravenous air related to the contrast injection. Inflammatory change/edema otherwise involves deeper subcutaneous fatty tissues anterior, superior and posterior to the shoulder and more superficially down the lateral aspect of the upper arm. Interpreted by: Mik Cantu Signed by: Mik Cantu 08/15/21 Edited Result - FINAL Normal [facility] CT THORACIC SPINE WO CONTRAS Ton 08-15-2021 CT THORACIC SPINE WO CONTRAST EXAMINATION: CT OF THE THORACIC SPINE WITHOUT CONTRAST 08/15/2021 11:30 am: TECHNIQUE: CT of the thoracic spine was performed without the administration of intravenous contrast. Multiplanar reformatted images are provided for review. Automated exposure control, iterative reconstruction, and/or weight based adjustment of the mA/kV was utilized to reduce the radiation dose to as low as reasonably achievable. COMPARISON: None. HISTORY: ORDERING SYSTEM PROVIDED HISTORY: traumatic fall in june TECHNOLOGIST PROVIDED HISTORY: traumatic fall in june FINDINGS: BONES/ALIGNMENT: There is normal alignment of the spine. The vertebral body heights are maintained. No osseous destructive lesion is seen. There is a uqob-mm-uxggbgwr compression fracture of the T4 vertebral body without compromise of the spinal canal. There are no acute fracture lines noted. DEGENERATIVE CHANGES: No gross spinal canal stenosis or bony neural foraminal narrowing of the thoracic spine. SOFT TISSUES: There are hypoventilatory changes in the posterior aspects of the lungs. IMPRESSION: Unvl-ro-pdcvteke compression fracture of the T4 vertebral body, of undetermined age. Clinical correlation suggested. Hypoventilatory changes in the posterior aspects of the lungs. Interpreted by: Josh Jackson MD Signed by: Josh Jackson MD 08/15/21 Final result Normal [facility] Sjhh-aj-druzvlhr compression fracture of the T4 vertebral body, of undetermined age. Clinical correlation suggested. Hypoventilatory changes in the posterior aspects of the lungs. [facility] RIS CONSOLIDATED EXAMINATION: CT OF THE THORACIC SPINE WITHOUT CONTRAST 08/15/2021 11:30 am: TECHNIQUE: CT of the thoracic spine was performed without the administration of intravenous contrast. Multiplanar reformatted images are provided for review. Automated exposure control, iterative reconstruction, and/or weight based adjustment of the mA/kV was utilized to reduce the radiation dose to as low as reasonably achievable. COMPARISON: None. HISTORY: ORDERING SYSTEM PROVIDED HISTORY: traumatic fall in june TECHNOLOGIST PROVIDED HISTORY: traumatic fall in june FINDINGS: BONES/ALIGNMENT: There is normal alignment of the spine. The vertebral body heights are maintained. No osseous destructive lesion is seen. There is a lqql-bw-bihfggax compression fracture of the T4 vertebral body without compromise of the spinal canal. There are no acute fracture lines noted. DEGENERATIVE CHANGES: No gross spinal canal stenosis or bony neural foraminal narrowing of the thoracic spine. SOFT TISSUES: There are hypoventilatory changes in the posterior aspects of the lungs. [facility] RIS Josh Ochoa MD - 08/15/2021 EXAMINATION: CT OF THE THORACIC SPINE WITHOUT CONTRAST 08/15/2021 11:30 am: TECHNIQUE: CT of the thoracic spine was performed without the administration of intravenous contrast. Multiplanar reformatted images are provided for review. Automated exposure control, iterative reconstruction, and/or weight based adjustment of the mA/kV was utilized to reduce the radiation dose to as low as reasonably achievable. COMPARISON: None. HISTORY: ORDERING SYSTEM PROVIDED HISTORY: traumatic fall in june TECHNOLOGIST PROVIDED HISTORY: traumatic fall in june FINDINGS: BONES/ALIGNMENT: There is normal alignment of the spine. The vertebral body heights are maintained. No osseous destructive lesion is seen. There is a nshh-gd-chowdqlj compression fracture of the T4 vertebral body without compromise of the spinal canal. There are no acute fracture lines noted. DEGENERATIVE CHANGES: No gross spinal canal stenosis or bony neural foraminal narrowing of the thoracic spine. SOFT TISSUES: There are hypoventilatory changes in the posterior aspects of the lungs. IMPRESSION: Cwxm-vv-wltnquvy compression fracture of the T4 vertebral body, of undetermined age. Clinical correlation suggested. Hypoventilatory changes in the posterior aspects of the lungs. [facility] Work Phone: [facility] Phone: CT TIBIA FIBULA LEFT W CONTR Stephenie 08-15-2021 CT TIBIA FIBULA LEFT W CONTRAST EXAMINATION: CT OF THE LEFT FEMUR WITH CONTRAST; CT OF THE LEFT TIBIA AND FIBULA WITH CONTRAST 08/14/2021 9:01 pm TECHNIQUE: CT of the left femur was performed with the administration of intravenous contrast. Multiplanar reformatted images are provided for review. Automated exposure control, iterative reconstruction, and/or weight based adjustment of the mA/kV was utilized to reduce the radiation dose to as low as reasonably achievable.; CT of the left tibia and fibula was performed with the administration of intravenous contrast. Multiplanar reformatted images are provided for review. Automated exposure control, iterative reconstruction, and/or weight based adjustment of the mA/kV was utilized to reduce the radiation dose to as low as reasonably achievable. COMPARISON: None. HISTORY ORDERING SYSTEM PROVIDED HISTORY: concern for nec fasc TECHNOLOGIST PROVIDED HISTORY: concern for nec fasc FINDINGS: Bones: At the medial aspect of body of the left pubis, there is healing fracture with mild surrounding, predominantly anterior, soft tissue swelling. Question of nondisplaced very subtle fracture at the anterior aspect of the acetabulum which may represent artifact. On the right, sclerotic reaction is present at the mid inferior pubic ramus likely representing healing fracture. No displacement. Osseous structures of the femur, tibia/fibula and visualized foot are otherwise unremarkable. Soft Tissue: No evidence of necrotizing fasciitis. There is mild superficial subcutaneous edema at the posterior and lateral aspects of the lower leg extending into the plantar aspect of the hindfoot. Joint: Mild degenerative changes incidentally noted. IMPRESSION: No evidence of necrotizing fasciitis throughout the visualized left lower extremity. Healing fracture evident at the body of the left pubis and mid right inferior pubic ramus. Questionable very subtle nondisplaced fracture at the anterior aspect of the left acetabulum. This may represent artifact. Interpreted by: Mik Cantu Signed by: Mik Cantu 08/14/21 Final result Normal [facility] CT TIBIA FIBULA RIGHT W CONT [facility] 08-15-2021 CT TIBIA FIBULA RIGHT W CONTRAST EXAMINATION: CT OF THE RIGHT FEMUR WITH CONTRAST; CT OF THE RIGHT TIBIA AND FIBULA WITH CONTRAST 08/14/2021 9:01 pm TECHNIQUE: CT of the right femur was performed with the administration of intravenous contrast. Multiplanar reformatted images are provided for review. Automated exposure control, iterative reconstruction, and/or weight based adjustment of the mA/kV was utilized to reduce the radiation dose to as low as reasonably achievable.; CT of the right tibia and fibula was performed with the administration of intravenous contrast. Multiplanar reformatted images are provided for review. Automated exposure control, iterative reconstruction, and/or weight based adjustment of the mA/kV was utilized to reduce the radiation dose to as low as reasonably achievable. COMPARISON: None. HISTORY ORDERING SYSTEM PROVIDED HISTORY: concern for nec fasc TECHNOLOGIST PROVIDED HISTORY: concern for nec fasc FINDINGS: Bones: Healing fractures at the medial body of the left pubis and mid inferior right pubic ramus. Osseous structures of the entire right lower extremity are otherwise unremarkable. Soft Tissue: No evidence of necrotizing fasciitis. Minor superficial edema in the subcutaneous fatty tissues is present lateral to the right hip and intermittently in the lateral and posterior aspects of the lower leg. Soft tissues of the right lower extremity are otherwise unremarkable. Joint: Mild degenerative changes incidentally noted. IMPRESSION: No evidence of necrotizing fasciitis of the right lower extremity. Mild superficial subcutaneous fatty edema lateral to the right hip and intermittently laterally and posteriorly in the lower leg. Healing fractures at the medial aspect of the left body of pubis and mid right inferior pubic ramus. Interpreted by: Mik Cantu Signed by: Mik Cantu 08/15/21 Final result Normal [facility] Cortisolon 08-15-2021 Cortisol 18.7 ug/dL High 2.7-18.[address] [facility] Comment on above: Result Comment: Cortisol Reference Range: AM 6.0-18.4 PM 2.7-10.5 Performed By: #### C RP, CDP, SED #### [employer] [address] [place] [id number] Snow Ranger: Chriss Townsend MD Cortisol Totalon 08-15-2021 Cortisol 18.7 ug/dL High 2.7 - 18.4 ug/dL [facility] Comment on above: Cortisol Reference Range: AM 6.0-18.4 PM 2.7-10.5 Interpretation and review of laboratory results Abnormal [facility] Creatine Kinaseon 08-15-2021 CK [Catalytic activity/Vol] 33 U/L Normal - [facility] Comment on above: Performed By: #### C OVRB #### [facility] [place] [address] Snow Ranger: Chriss Townsend MD CK [Catalytic activity/Vol] 42 U/L Normal - [facility] Comment on above: Performed By: #### C RP, CDP, SED #### [address] [address] Snow Ranger: Chriss Townsend MD CK [Catalytic activity/Vol] 44 U/L Normal 26-[address] [facility] Comment on above: Performed By: #### C OVRB #### [address] [address] Snow Ranger: Chriss Townsend MD Crystals, Fluidson 2 Type of Specimen .SYNOVIAL FLUID Normal [facility] Comment on above: Result Comment: RIGH T SHOULDER Performed By: #### L ACTIC #### [address] [address] Snow Ranger: Chriss Townsend MD Performed By: #### V NCT #### [address] [address] Snow Ranger: Chriss Townsend MD Cult,Fluidon 08-15-2021 Cult,Fluid Specimen Description .SYNOVIAL FLUID .ASPIRATE RIGHT SHOULDER Culture DUE TO THE SPECIMEN TYPE, THE ORDER WAS CANCELED AND REORDERED. PLEASE REFER TO: ANAEROBIC, AEROBIC CULTURE Report Status FINAL 08/15/[address] [facility] Comment on above: Performed By: #### L ACTIC #### [address] [address] Snow Ranger: Chriss Townsend MD Culture, Body Fluidon 2021 Bacteria identified Cx Nom (Unsp spec) DUE TO THE SPECIMEN TYPE, THE ORDER WAS CANCELED AND REORDERED. PLEASE REFER TO: ANAEROBIC, AEROBIC CULTURE [facility] Specimen Description .SYNOVIAL FLUID .ASPIRATE [facility] [employer] [facility] Fluid Cell Count and Diffon 08-15-2021 Lymphocytes/100 WBC (Bld) 2 % Normal [facility] Comment on above: Result Comment: The reference range and other method performance specifications have not been established for this body fluid. The test result must be integrated into the clinical context for interpretation. Performed By: #### V NCT #### [address] [address] Snow Ranger: Chriss Townsend MD Neutrophils/100 WBC (Bld) 93 % Normal [facility] Comment on above: Result Comment: The reference range and other method performance specifications have not been established for this body fluid. The test result must be integrated into the clinical context for interpretation. Performed By: #### V NCT #### [address] [address] Snow Ranger: Chriss Townsend MD RBC 74921 /mm3 Normal [facility] Comment on above: Result Comment: The reference range and other method performance specifications have not been established for this body fluid. The test result must be integrated into the clinical context for interpretation. Performed By: #### V NCT #### [address] [address] Snow Ranger: Chriss Townsend MD WBC [id number] /mm3 Normal [facility] Comment on above: Result Comment: The reference range and other method performance specifications have not been established for this body fluid. The test result must be integrated into the clinical context for interpretation. Performed By: #### V NCT #### [address] [address] Snow Ranger: Chriss Townsend MD Gram Stainon 08-15-2021 Microscopic observation Gram stain Nom (Unsp spec) Specimen Description .ASPIRATE .SYNOVIAL FLUID RIGHT SHOULDER Direct Exam DUPLICATE ORDER GRAM STAIN INCLUDED WITH AEROBIC, ANAEROBIC CULTURE Report Status FINAL 08/15/[address] [facility] Comment on above: Performed By: #### L ACTIC #### [address] [address] Snow Ranger: Chriss Townsend MD Direct Exam DUPLICATE ORDER GRAM STAIN INCLUDED WITH AEROBIC, ANAEROBIC CULTURE [facility] Specimen Description .ASPIRATE .SYNOVIAL FLUID [facility] IR ARTHR/ASP/INJ MAJOR JT/BU RSA W USon 08-15-2021 IR ARTHR/ASP/INJ MAJOR JT/BURSA W US EXAMINATION: FLUOROSCOPIC AND ULTRASONIC GUIDED ASPIRATION RIGHT SHOULDER PERIARTICULAR FLUID COLLECTION 08/15/2021 11:54 am HISTORY: ORDERING SYSTEM PROVIDED HISTORY: right should asp. TECHNOLOGIST PROVIDED HISTORY: right should asp. Reason for Exam: Right shoulder aspiration FLUOROSCOPY DOSE AND TYPE OR TIME AND EXPOSURES: FLUOROSCOPY TIME-0.3 MINUTES D AP-230 CGY CM SQUARED Views 1 PROCEDURE: TRANSMISSION ENGINEER: Barrington Paniagua MD Informed consent was obtained and universal protocol was observed. Sterile gowns, masks, hats and gloves utilized for maximal sterile barrier. Under standard sterile condition, local anesthesia with subcutaneous 2% lidocaine was administered. A skin entry site was selected with fluoroscopy. A 22 gauge spinal needle was inserted into a right shoulder periarticular posterolateral fluid collection under ultrasound and fluoroscopic guidance. Approximately 3 ml of barbara slightly cloudy puncture was fluid was removed and provided for further analysis. IMPRESSION: Successful ultrasound and fluoroscopic-guided right shoulder fluid collection aspiration, as above. Interpreted by: Barrington Paniagua MD Signed by: Barrington Paniagua MD 08/15/21 Final result Normal [facility] Successful ultrasoun d and fluoroscopic-guided right shoulder fluid collection aspiration, as above. [facility] RIS CONSOLIDATED EXAMINATION: FLUOROSCOPIC AND ULTRASONIC GUIDED ASPIRATION RIGHT SHOULDER PERIARTICULAR FLUID COLLECTION 08/15/2021 11:54 am HISTORY: ORDERING SYSTEM PROVIDED HISTORY: right should asp. TECHNOLOGIST PROVIDED HISTORY: right should asp. Reason for Exam: Right shoulder aspiration FLUOROSCOPY DOSE AND TYPE OR TIME AND EXPOSURES: FLUOROSCOPY TIME-0.3 MINUTES D AP-230 CGY CM SQUARED Views 1 PROCEDURE: TRANSMISSION ENGINEER: Barrington Paniagua MD Informed consent was obtained and universal protocol was observed. Sterile gowns, masks, hats and gloves utilized for maximal sterile barrier. Under standard sterile condition, local anesthesia with subcutaneous 2% lidocaine was administered. A skin entry site was selected with fluoroscopy. A 22 gauge spinal needle was inserted into a right shoulder periarticular posterolateral fluid collection under ultrasound and fluoroscopic guidance. Approximately 3 ml of barbara slightly cloudy puncture was fluid was removed and provided for further analysis. [facility] RIS CONSOLIDATED Barrington Paniagua MD - 08/15/2021 EXAMINATION: FLUOROSCOPIC AND ULTRASONIC GUIDED ASPIRATION RIGHT SHOULDER PERIARTICULAR FLUID COLLECTION 08/15/2021 11:54 am HISTORY: ORDERING SYSTEM PROVIDED HISTORY: right should asp. TECHNOLOGIST PROVIDED HISTORY: right should asp. Reason for Exam: Right shoulder aspiration FLUOROSCOPY DOSE AND TYPE OR TIME AND EXPOSURES: FLUOROSCOPY TIME-0.3 MINUTES D AP-230 CGY CM SQUARED Views 1 PROCEDURE: TRANSMISSION ENGINEER: Barrington Paniagua MD Informed consent was obtained and universal protocol was observed. Sterile gowns, masks, hats and gloves utilized for maximal sterile barrier. Under standard sterile condition, local anesthesia with subcutaneous 2% lidocaine was administered. A skin entry site was selected with fluoroscopy. A 22 gauge spinal needle was inserted into a right shoulder periarticular posterolateral fluid collection under ultrasound and fluoroscopic guidance. Approximately 3 ml of barbara slightly cloudy puncture was fluid was removed and provided for further analysis. IMPRESSION: Successful ultrasound and fluoroscopic-guided right shoulder fluid collection aspiration, as above. [employer] Phone: Radiology Study observation (narrative) [employer] Phone: IR ARTHR/ASP/INJ MAJOR JT/BU RSA W USOrdered By: Barrington Paniagua on 08-15-2021 [employer] Phone: IR LUMBAR PUNCTURE FOR DIAGN OSISon 08-15-2021 IR LUMBAR PUNCTURE FOR DIAGNOSIS EXAMINATION: ATTEMPTED FLUOROSCOPIC GUIDED LUMBAR PUNCTURE 08/15/2021 11:54 am HISTORY: ORDERING SYSTEM PROVIDED HISTORY: neck pain, elevated ESR, CRP and leukocytosis TECHNOLOGIST PROVIDED HISTORY: neck pain, elevated ESR, CRP and leukocytosis FLUOROSCOPY DOSE AND TYPE OR TIME AND EXPOSURES: 3.6 minutes fluoroscopy time D AP-6921 cGy cm squared PROCEDURE: TRANSMISSION ENGINEER: Barrington Paniagua MD Informed consent was obtained after the risks and benefits of the procedure were discussed with the patient and all questions were answered fully. [place] protocol was observed and a standard timeout was performed. The patient was positioned the xhts-hvhd-pwex decubitus position, and the back was prepped and draped in the normal sterile fashion. 1% lidocaine was used for local anesthesia. The subarachnoid space was accessed with 20-gauge 3.5 and 4-3/4 spinal needles at the L2/L3 level. Due to patient inability to remain motionless and difficult anatomical visualization lateral projection, the procedure was terminated without success. There were no immediate complications and the patient tolerated the procedure well. Single digital image shows attempted needle positioning, and contrast in the renal collecting system mildly distended urinary bladder. IMPRESSION: Unsuccessful fluoroscopic-guided lumbar puncture in the eyxd-hocq-zpeo decubitus position, as above. Interpreted by: Barrington Paniagua MD Signed by: Barrington Paniagua MD 08/15/21 Final result Normal [facility] Unsuccessful fluoroscopic-guided lumbar puncture in the gemn-praz-raph decubitus position, as above. [facility] CONSOLIDATED EXAMINATION: ATTEMPTED FLUOROSCOPIC GUIDED LUMBAR PUNCTURE 08/15/2021 11:54 am HISTORY: ORDERING SYSTEM PROVIDED HISTORY: neck pain, elevated ESR, CRP and leukocytosis TECHNOLOGIST PROVIDED HISTORY: neck pain, elevated ESR, CRP and leukocytosis FLUOROSCOPY DOSE AND TYPE OR TIME AND EXPOSURES: 3.6 minutes fluoroscopy time D AP-6921 cGy cm squared PROCEDURE: TRANSMISSION ENGINEER: Barrington Paniagua MD Informed consent was obtained after the risks and benefits of the procedure were discussed with the patient and all questions were answered fully. [place] protocol was observed and a standard timeout was performed. The patient was positioned the pxlr-oqrb-kaek decubitus position, and the back was prepped and draped in the normal sterile fashion. 1% lidocaine was used for local anesthesia. The subarachnoid space was accessed with 20-gauge 3.5 and 4-3/4 spinal needles at the L2/L3 level. Due to patient inability to remain motionless and difficult anatomical visualization lateral projection, the procedure was terminated without success. There were no immediate complications and the patient tolerated the procedure well. Single digital image shows attempted needle positioning, and contrast in the renal collecting system mildly distended urinary bladder. [facility] CONSOLIDATED Barrington Paniagua MD - 08/15/2021 EXAMINATION: ATTEMPTED FLUOROSCOPIC GUIDED LUMBAR PUNCTURE 08/15/2021 11:54 am HISTORY: ORDERING SYSTEM PROVIDED HISTORY: neck pain, elevated ESR, CRP and leukocytosis TECHNOLOGIST PROVIDED HISTORY: neck pain, elevated ESR, CRP and leukocytosis FLUOROSCOPY DOSE AND TYPE OR TIME AND EXPOSURES: 3.6 minutes fluoroscopy time D AP-6921 cGy cm squared PROCEDURE: TRANSMISSION ENGINEER: Barrington Paniagua MD Informed consent was obtained after the risks and benefits of the procedure were discussed with the patient and all questions were answered fully. [place] protocol was observed and a standard timeout was performed. The patient was positioned the [id number] decubitus position, and the back was prepped and draped in the normal sterile fashion. 1% lidocaine was used for local anesthesia. The subarachnoid space was accessed with 20-gauge 3.5 and 4-3/4 spinal needles at the L2/L3 level. Due to patient inability to remain motionless and difficult anatomical visualization lateral projection, the procedure was terminated without success. There were no immediate complications and the patient tolerated the procedure well. Single digital image shows attempted needle positioning, and contrast in the renal collecting system mildly distended urinary bladder. IMPRESSION: Unsuccessful fluoroscopic-guided lumbar puncture in the [id number] decubitus position, as above. [facility] [employer] Work Phone: [facility] [employer] Work Phone: Radiology Study observation (narrative) [facility] Work Phone: Lactate, Sepsison 08-15-2021 Lactic Acid,Sep Wbld 2.7 mmol/L High 0.5-1.9 [facility] Comment on above: Performed By: #### C OVRB #### [employer] [address] [place] [address] Snow Ranger: Chriss oTwnsend MD Lactic Acid,Sep Wbld 3.0 mmol/L High 0.5-1.9 [facility] Comment on above: Performed By: #### C OVRB #### [facility] [address] [place] [address] Snow Ranger: Chriss Townsend MD Interpretation and review of laboratory results Abnormal [facility] Lactic Acid, Sepsis, Whole Blood 2.7 mmol/L High 0.5 - 1.9 mmol/L [facility] Lactic Acidon 05-26-2022 Lactic Acid,Whole Bl 1.5 mmol/L Normal 0.7-2.1 [facility] Comment on above: Performed By: #### L ACTIC #### [facility] [place] [address] Snow Ranger: Chriss Townsend MD Lactic Acid, Plasmaon 2021 Lactic Acid, Whole Blood 1.5 mmol/L 0.7 - 2.1 mmol/L [facility] MRSA DNA Probe, Nasalon 07-22 MRSA, DNA, Nasal Negative NEGATIVE [facility] Comment on above: NEGATIVE: MRSA DNA n ot detected by nucleic acid amplification. Results should be used as an adjunct to nosocomial control efforts to identify patients needing enhanced precautions. The test is not intended to identify patients with staphylococcal infections. Results should not be used to guide or monitor treatment for MRSA infections. Specimen Description .NASAL SWAB [facility] MRSA, DNA, Nasalon MRSA, DNA, Nasal Negative Normal NEG [facility] Comment on above: Result Comment: NEGA TIVE: MRSA DNA not detected by nucleic acid amplification. Results should be used as an adjunct to nosocomial control efforts to identify patients needing enhanced precautions. The test is not intended to identify patients with staphylococcal infections. Results should not be used to guide or monitor treatment for MRSA infections. Performed By: #### M RSANO #### [employer] [address] [place] [id number] Snow Ranger: Chriss Townsend MD Specimen Description .NASAL SWAB Normal [facility] Comment on above: Performed By: #### M RSANO #### [facility] [place], [place] [id number] Snow Ranger: Chriss Townsend MD No Panel Informationon 08-15 Radiology Study observation (narrative) [facility] Work Phone: Radiology Study observation (narrative) [facility] Work Phone: [facility] No evidence of necrotizing fasciitis of the right lower extremity. Mild superficial subcutaneous fatty edema lateral to the right hip and intermittently laterally and posteriorly in the lower leg. Healing fractures at the medial aspect of the left body of pubis and mid right inferior pubic ramus. [facility] EXAMINATION: CT OF THE RIGHT FEMUR WITH CONTRAST; CT OF THE RIGHT TIBIA AND FIBULA WITH CONTRAST 08/14/2021 9:01 pm TECHNIQUE: CT of the right femur was performed with the administration of intravenous contrast. Multiplanar reformatted images are provided for review. Automated exposure control, iterative reconstruction, and/or weight based adjustment of the mA/kV was utilized to reduce the radiation dose to as low as reasonably achievable.; CT of the right tibia and fibula was performed with the administration of intravenous contrast. Multiplanar reformatted images are provided for review. Automated exposure control, iterative reconstruction, and/or weight based adjustment of the mA/kV was utilized to reduce the radiation dose to as low as reasonably achievable. COMPARISON: None. HISTORY ORDERING SYSTEM PROVIDED HISTORY: concern for nec fasc TECHNOLOGIST PROVIDED HISTORY: concern for nec fasc FINDINGS: Bones: Healing fractures at the medial body of the left pubis and mid inferior right pubic ramus. Osseous structures of the entire right lower extremity are otherwise unremarkable. Soft Tissue: No evidence of necrotizing fasciitis. Minor superficial edema in the subcutaneous fatty tissues is present lateral to the right hip and intermittently in the lateral and posterior aspects of the lower leg. Soft tissues of the right lower extremity are otherwise unremarkable. Joint: Mild degenerative changes incidentally noted. [facility] Mik Cantu - 08/15/2021 EXAMINATION: CT OF THE RIGHT FEMUR WITH CONTRAST; CT OF THE RIGHT TIBIA AND FIBULA WITH CONTRAST 08/14/2021 9:01 pm TECHNIQUE: CT of the right femur was performed with the administration of intravenous contrast. Multiplanar reformatted images are provided for review. Automated exposure control, iterative reconstruction, and/or weight based adjustment of the mA/kV was utilized to reduce the radiation dose to as low as reasonably achievable.; CT of the right tibia and fibula was performed with the administration of intravenous contrast. Multiplanar reformatted images are provided for review. Automated exposure control, iterative reconstruction, and/or weight based adjustment of the mA/kV was utilized to reduce the radiation dose to as low as reasonably achievable. COMPARISON: None. HISTORY ORDERING SYSTEM PROVIDED HISTORY: concern for nec fasc TECHNOLOGIST PROVIDED HISTORY: concern for nec fasc FINDINGS: Bones: Healing fractures at the medial body of the left pubis and mid inferior right pubic ramus. Osseous structures of the entire right lower extremity are otherwise unremarkable. Soft Tissue: No evidence of necrotizing fasciitis. Minor superficial edema in the subcutaneous fatty tissues is present lateral to the right hip and intermittently in the lateral and posterior aspects of the lower leg. Soft tissues of the right lower extremity are otherwise unremarkable. Joint: Mild degenerative changes incidentally noted. IMPRESSION: No evidence of necrotizing fasciitis of the right lower extremity. Mild superficial subcutaneous fatty edema lateral to the right hip and intermittently laterally and posteriorly in the lower leg. Healing fractures at the medial aspect of the left body of pubis and mid right inferior pubic ramus. [facility] Work Phone: [facility] Phone: Procalcitoninon 08-15-2021 Procalcitonin 3.47 ng/mL High <0.[address] [facility] Comment on above: Result Comment: Suspected Sepsis: <0.50 ng/mL Low likelihood of sepsis. 0.50-2.00 ng/mL Increased likelihood of sepsis. Antibiotics encouraged. >2.00 ng/mL High risk of sepsis/shock. Antibiotics strongly encouraged. Suspected Lower Resp Tract Infections: <0.24 ng/mL Low likelihood of bacterial infection. >0.24 ng/mL Increased likelihood of bacterial infection. Antibiotics encouraged. With successful antibiotic therapy, PCT levels should decrease rapidly. (Half-life of 24 to 36 hours.) Procalcitonin values from samples collected within the first 6 hours of systemic infection may still be low. Retesting may be indicated. Values from day 1 and day 4 can be entered into the Change in Procalcitonin Calculator ([email or web address]-[email or web address]) to determine the patient's Mortality Risk Prognosis In healthy neonates, plasma Procalcitonin (PCT) concentrations increase gradually after , reaching peak values at about 24 hours of age then decrease to normal values below 0.5 ng/mL by 48-72 hours of age. Performed By: #### C OV #### [employer] [address] [place] [address] Snow Ranger: Chriss Townsend MD VL DUP UPPER EXTREMITY VENOU S RIGHTon 08-15-2021 Result, Unknown Prov ider - 08/15/2021 [facility] Vascular Upper Extremities Veins Procedure Patient Name FRANCISCO J Date of Study 08/15/2021 MIRIAM Ragsdale Date of 1955 Gender Female Age 66 year(s) Race Room Number 3022 Corporate ID [id number] # Patient Acct [id number] # MR # [id number] [employer] Laura Tavares RVT, LEXUS Interpreting Erasmo Pham Physician Referring Referring Physician Eriberto Marcial, Nurse Practitioner Procedure Type of Study: Veins: Upper Extremities Veins, Venous Scan Upper Right. Indications for Study:Arm swelling or discomfort. Patient Status:In Patient. Technical Quality:Limited visualization. Limitation reason:deep vessels. Conclusions Summary No evidence of superficial or deep venous thrombosis in the right upper extremity. Signature Findings: Right Impression: Right internal jugular, subclavian, axillary, brachial, ulnar, radial, cephalic and basilic veins are compressible with normal doppler responses. Risk Factors - The patient's risk factor(s) include: obesity. Velocities are measured in cm/s ; Diameters are measured in cm Right UE Vein Measurements 2D Measurements + + +- + + !Location !Visualized!Compressibili ty!Thrombosis! + + +- + + !Prox IJV !Yes !Yes !None ! + + +- + + !Dist IJV !Yes !Yes !None ! + + +- + + !Prox SCV !Yes !Yes !None ! + + +- + + !Dist SCV !Yes !Yes !None ! + + +- + + !Prox Axillary !Yes !Yes !None ! + + +- + + !Dist Axillary !Yes !Yes !None ! + + +- + + !Prox Brachial !Yes !Yes !None ! + + +- + + !Dist Brachial !Yes !Yes !None ! + + +- + + !Prox Radial !Yes !Yes !None ! + + +- + + !Dist Radial !Yes !Yes !None ! + + +- + + !Prox Ulnar !Partial !Yes !None ! + + +- + + !Dist Ulnar !Yes !Yes !None ! + + +- + + !Basilic at UA !Yes !Yes !None ! + + +- + + !Basilic at AF !Yes !Yes !None ! + + +- + + !Basilic at LA !Partial !Yes !None ! + + +- + + !Cephalic at UA !No ! ! ! + + +- + + !Cephalic at AF !Yes !Yes !None ! + + +- + + !Cephalic at LA !Yes !Yes !None ! + + +- + + Doppler Measurements + -+ + + !Location !Signal !Reflux ! + -+ + + !IJV !Phasic ! ! + -+ + + !SCV !Phasic ! ! + -+ + + !Axillary !Phasic ! ! + -+ + + Left UE Vein Measurements Doppler Measurements + -+ + + !Location !Signal !Reflux ! + -+ + + !SCV !Phasic ! ! + -+ + + [employer] Phone: Radiology Study observation (narrative) [employer] Phone: VL DUP UPPER EXTREMITY VENOU S RIGHTOrdered By: Unknown Result on 08-15-2021 [facility] XR ANKLE RIGHT (MIN 3 VIEWS) on 08-15-2021 XR ANKLE RIGHT (MIN 3 VIEWS) EXAMINATION: THREE XRAY VIEWS OF THE RIGHT ANKLE 08/15/2021 11:25 am COMPARISON: 08/14/2021 HISTORY: ORDERING SYSTEM PROVIDED HISTORY: pain, concern for infection with hardware TECHNOLOGIST PROVIDED HISTORY: At bedside pain, concern for infection with hardware FINDINGS: Remote posttraumatic changes of the AA right ankle with medial fixation hardware in the distal tibia traversing the medial malleolus and the distal tibial metadiaphysis consisting of 2 pins with a threaded screw and a cerclage wire. The hardware appears intact without surrounding lucency. Evidence of prior hardware in the distal fibula which is since been removed with corticated irregularity. No acute fracture. Alignment is anatomic. Degenerative changes at the ankle. Plantar calcaneal spur. Mild bimalleolar soft tissue swelling. IMPRESSION: No acute bony abnormality or radiographic evidence of hardware failure or surrounding lucency. Degenerative changes at the ankle. Bimalleolar soft tissue swelling. Plantar calcaneal spur. Interpreted by: Barbara Rivera DO Signed by: Barbara Rivera DO 08/15/21 Final result Normal [facility] No acute bony abnorm ality or radiographic evidence of hardware failure or surrounding lucency. Degenerative changes at the ankle. Bimalleolar soft tissue swelling. Plantar calcaneal spur. [facility] CON[facility]ID[facility] EXAMINATION: THREE XRAY VIEWS OF THE RIGHT ANKLE 08/15/2021 11:25 am COMPARISON: 08/14/2021 HISTORY: ORDERING SYSTEM PROVIDED HISTORY: pain, concern for infection with hardware TECHNOLOGIST PROVIDED HISTORY: At bedside pain, concern for infection with hardware FINDINGS: Remote posttraumatic changes of the AA right ankle with medial fixation hardware in the distal tibia traversing the medial malleolus and the distal tibial metadiaphysis consisting of 2 pins with a threaded screw and a cerclage wire. The hardware appears intact without surrounding lucency. Evidence of prior hardware in the distal fibula which is since been removed with corticated irregularity. No acute fracture. Alignment is anatomic. Degenerative changes at the ankle. Plantar calcaneal spur. Mild bimalleolar soft tissue swelling. [facility] Barbara Rivera DO - 08/15/2021 EXAMINATION: THREE XRAY VIEWS OF THE RIGHT ANKLE 08/15/2021 11:25 am COMPARISON: 08/14/2021 HISTORY: ORDERING SYSTEM PROVIDED HISTORY: pain, concern for infection with hardware TECHNOLOGIST PROVIDED HISTORY: At bedside pain, concern for infection with hardware FINDINGS: Remote posttraumatic changes of the AA right ankle with medial fixation hardware in the distal tibia traversing the medial malleolus and the distal tibial metadiaphysis consisting of 2 pins with a threaded screw and a cerclage wire. The hardware appears intact without surrounding lucency. Evidence of prior hardware in the distal fibula which is since been removed with corticated irregularity. No acute fracture. Alignment is anatomic. Degenerative changes at the ankle. Plantar calcaneal spur. Mild bimalleolar soft tissue swelling. IMPRESSION: No acute bony abnormality or radiographic evidence of hardware failure or surrounding lucency. Degenerative changes at the ankle. Bimalleolar soft tissue swelling. Plantar calcaneal spur. [employer] Phone: Radiology Study observation (narrative) [employer] Phone: XR ANKLE RIGHT (MIN 3 VIEWS) Ordered By: Barbara Rivera on 08-15-2021 [employer] Phone: APTTon 08-14-2021 aPTT Coag (Bld) [Time] 19.6 s Low 20.5-30.[address] [facility] Comment on above: Result Comment: IV Heparin Therapy Range: 48.6-77.8 No clot found in specimen, results questionable. Performed By: #### L ACTIC #### [facility] [address] [place] [address] Snow Ranger: Chriss Townsend MD aPTT Coag (Bld) [Time] 19.6 s Low [facility] Comment on above: IV Heparin Therapy Range: 48.6-77.8 No clot found in specimen, results questionable. Interpretation and review of laboratory results Abnormal [facility] C-Reactive Proteinon CRP [Mass/Vol] 258.6 mg/L High 0.0-5.[address] [facility] Comment on above: Performed By: #### C RP, CDP, SED #### [facility] [address] [place] [id number] Snow Ranger: Chriss Townsend MD CRP [Mass/Vol] 258.6 mg/L High 0.0 - 5.0 mg/L [facility] Interpretation and review of laboratory results Abnormal [facility] CRP [Mass/Vol] 249.9 mg/L High 0.0 - 5.0 mg/L [facility] CBC with Auto Differentialon 08-14-2021 Absolute Eos # 0.00 [facility] Absolute Immature Granulocyte 2.56 High [facility] Absolute Lymph # 1.40 [facility] Absolute Haskell # 0.23 [facility] Basophils (Bld) [#/Vol] 0.00 10*3/uL [facility] Basophils/100 WBC (Bld) 0 % 0 - 2 % [facility] Eosinophils/100 WBC (Bld) 0 % Low 1 - 4 % [facility] Hematocrit (Bld) [Volume fraction] 40.4 % 36.3 - 47.1 % [facility] Hemoglobin.gastrointe stinal spec 1 Ql (Stl) 12.4 g/dL 11.9 - 15.1 g/dL [facility] Immature granulocytes/100 WBC (Bld) 11 % High 0 [facility] Interpretation and review of laboratory results Abnormal [facility] Lymphocytes/100 WBC (Bld) 6 % Low 24 - 44 % [facility] MCH (RBC) [Entitic mass] 29.9 pg 25.2 - 33.5 pg [facility] MCHC (RBC) [Mass/Vol] 30.7 g/dL 28.4 - 34.8 g/dL [facility] MCV (RBC) [Entitic vol] 97.3 fL 82.6 - 102.9 fL [facility] Monocytes/100 WBC (Bld) 1 % 1 - 7 % [facility] Morphology Demetrio (Bld) [Interp] ANISOCYTOSIS PRESENT [facility] NRBC Automated 0.0 0.0 per 100 WBC [facility] Platelet distribution width (Bld) [Ratio] 15.0 % High 11.8 - 14.4 % [facility] Platelets (Bld) [#/Vol] See Reflexed IPF Result [facility] RBC (Bld) [#/Vol] 4.15 10*6/uL 3.95 - 5.1 1 m/uL [facility] Segmented neutrophils/100 WBC (Bld) 82 % High 36 - 66 % [facility] Segs Absolute 19.11 High [facility] WBC (Bld) [#/Vol] 23.3 10*3/uL High [facility] Absolute Eos # <0.03 [facility] Absolute Immature Granulocyte 0.20 [facility] Absolute Lymph # 0.88 Low [facility] Absolute Haskell # 0.50 [facility] Basophils (Bld) [#/Vol] 0.03 10*3/uL [facility] Basophils/100 WBC (Bld) 0 % 0 - 2 % [facility] Eosinophils/100 WBC (Bld) 0 % Low 1 - 4 % [facility] Hematocrit (Bld) [Volume fraction] 43.8 % 36.3 - 47.1 % [facility] Hemoglobin.gastrointe stinal spec 1 Ql (Stl) 13.5 g/dL 11.9 - 15.1 g/dL [facility] Immature granulocytes/100 WBC (Bld) 1 % High 0 [facility] Interpretation and review of laboratory results Abnormal [facility] Lymphocytes/100 WBC (Bld) 5 % Low 24 - 43 % [facility] MCH (RBC) [Entitic mass] 29.9 pg 25.2 - 33.5 pg [facility] MCHC (RBC) [Mass/Vol] 30.8 g/dL 28.4 - 34.8 g/dL [facility] MCV (RBC) [Entitic vol] 96.9 fL 82.6 - 102.9 fL [facility] Monocytes/100 WBC (Bld) 3 % 3 - 12 % [facility] NRBC Automated 0.0 0.0 per 100 WBC [facility] Platelet distribution width (Bld) [Ratio] 14.8 % High 11.8 - 14.4 % [facility] Platelet mean volume (Bld) [Entitic vol] 9.5 fL 8.1 - 13.5 fL [facility] Platelets (Bld) [#/Vol] 259 10*3/uL [facility] RBC (Bld) [#/Vol] 4.52 10*6/uL 3.95 - 5.1 1 m/uL [facility] Segmented neutrophils/100 WBC (Bld) 91 % High 36 - 65 % [facility] Segs Absolute 15.50 High [facility] WBC (Bld) [#/Vol] 17.1 10*3/uL High [facility] CBC with Diffon 08-14-2021 Abs. Basophil 0.00 k/uL Normal 0.0-0.[address] [facility] Comment on above: Performed By: #### C SEBASTIAN RTAN, SED #### [facility] [address] [place], [place] [id number] Snow Ranger: Chriss Townsend MD Abs.Imm.Granulocyte 2.56 k/uL High 0.00-0.[address] [facility] Comment on above: Performed By: #### C SEBASTIAN TRAN, SED #### [facility] [address] [place], [place] [phone] Snow Ranger: Chriss Townsend MD Abs.Neutrophil (Seg) 19.11 k/uL High 1.8-7.7 [facility] Comment on above: Performed By: #### C SBEASTIAN TRAN, SED #### [address] [address] Snow Ranger: Chriss Townsend MD Basophils/100 WBC (Bld) 0 % Normal 0-[address] [facility] Comment on above: Performed By: #### C RP, CDP, SED #### [facility] [address] [place] [id number] Snow Ranger: Chriss Townsend MD Eosinophils (Bld) [#/Vol] 0.00 10*3/uL Normal 0.0-0.[address] [facility] Comment on above: Performed By: #### C RP, CDP, SED #### [address] [address] Snow Ranger: Chriss Townsend MD Eosinophils/100 WBC (Bld) 0 % Low 1-[address] [facility] Comment on above: Performed By: #### C RP, CDP, SED #### [address] [address] Snow Ranger: Chriss Townsend MD Immature granulocytes/100 WBC (Bld) 11 % High [address] [facility] Comment on above: Performed By: #### C RP, CDP, SED #### [address] [address] Snow Ranger: Chriss Townsend MD Lymphocytes (Bld) [#/Vol] 1.40 10*3/uL Normal 1.0-4.[address] [facility] Comment on above: Performed By: #### C RP, CDP, SED #### [address] [address] Snow Ranger: Chriss Townsend MD Lymphocytes/100 WBC (Bld) 6 % Low 24-[address] [facility] Comment on above: Performed By: #### C RP, CDP, SED #### [facility] [address] [place] [address] Snow Ranger: Chriss Townsend MD Monocytes (Bld) [#/Vol] 0.23 10*3/uL Normal 0.1-0.[address] [facility] Comment on above: Performed By: #### C RP, CDP, SED #### [address] [address] Snow Ranger: Chriss Townsend MD Monocytes/100 WBC (Bld) 1 % Normal 1-[address] [facility] Comment on above: Performed By: #### C RP, CDP, SED #### [address] [address] Snow Ranger: Chriss Townsend MD Morphology Demetrio (Bld) [Interp] ANISOCYTOSIS PRESENT Normal [facility] Comment on above: Performed By: #### C RP, CDP, SED #### [address] [address] Snow Ranger: Chriss Townsend MD Neutrophil (Seg) 82 % High 36-66 [facility] Comment on above: Performed By: #### C RP, CDP, SED #### [address] [address] Snow Ranger: Chriss Townsend MD Erythrocyte distribution width (RBC) [Ratio] 15.0 % High 11.8-14.[address] [facility] Comment on above: Performed By: #### C RP, CDP, SED #### [facility] [address] [place] [address] Snow Ranger: Chriss Townsend MD Hematocrit (Bld) [Volume fraction] 40.4 % Normal 36.3-47.[address] [facility] Comment on above: Performed By: #### C RP, CDP, SED #### [facility] [address] [place] [address] Snow Ranger: Chriss Townsend MD Hemoglobin (Bld) [Mass/Vol] 12.4 g/dL Normal 11.9-15.[address] [facility] Comment on above: Performed By: #### C RP, CDP, SED #### [address] [address] Snow Ranger: Chriss Townsend MD MCH (RBC) [Entitic mass] 29.9 pg Normal 25.2-33.[address] [facility] Comment on above: Performed By: #### C RP, CDP, SED #### [address] [address] Snow Ranger: Chriss Townsend MD MCHC (RBC) [Mass/Vol] 30.7 g/dL Normal 28.4-34.8 [facility] Comment on above: Performed By: #### C RP, CDP, SED #### [place] [address] Snow Ranger: Chriss Townsend MD MCV (RBC) [Entitic vol] 97.3 fL Normal 82.6-102.[address] [facility] Comment on above: Performed By: #### C RP, CDP, SED #### [address] [address] Snow Ranger: Chriss Townsend MD NRBC Automated 0.0 per 100 WBC Normal 0.[address] [facility] Comment on above: Performed By: #### C RP, CDP, SED #### [place] [address] Snow Ranger: Chriss Townsend MD Platelet Count See Reflexed IPF Result Normal 138-[address] [facility] Comment on above: Performed By: #### C RP, CDP, SED #### [place] [address] Snow Ranger: Chriss Townsend MD RBC (Bld) [#/Vol] 4.15 10*6/uL Normal 3.95-5.[address] [facility] Comment on above: Performed By: #### C RP, CDP, SED #### [facility] [address] [place], [place] [address] Snow Ranger: Chriss Townsend MD WBC (Bld) [#/Vol] 23.3 10*3/uL High 3.5-11.[address] [facility] Comment on above: Performed By: #### C RP, CDP, SED #### [facility] [address] [place], [place] [id number] Snow Ranger: Chriss Townsend MD CKon 08-14-2021 CK [Catalytic activity/Vol] 46 U/L 26 - 192 U/L [facility] COVID-19, Rapidon 08-14-2021 SARS-CoV-2 (COVID-19) RNA GLYNN+probe Ql (Unsp spec) Not detected Not Detected [facility] Comment on above: Rapid NAAT: The specimen is NEGATIVE for SARS-CoV-2, the novel coronavirus associated with COVID-19. The ID NOW COVID-19 assay is designed to detect the virus that causes COVID-19 in patients with signs and symptoms of infection who are suspected of COVID-19. An individual without symptoms of COVID-19 and who is not shedding SARS-CoV-2 virus would expect to have a negative (not detected) result in this assay. Negative results should be treated as presumptive and, if inconsistent with clinical signs and symptoms or necessary for patient management, should be tested with an alternative molecular assay. Negative results do not preclude SARS-CoV-2 infection and should not be used as the sole basis for patient management decisions. Fact sheet for Healthcare Providers: https://www.fda.gov/media/713039/download Fact sheet for Patients: https://www.fda.gov/media/007017/download Methodology: Isothermal Nucleic Acid Amplification Specimen Description .NASOPHARYNGEAL SWAB [facility] Comp Metabolic Pr/rfx MGon 0 08-14-2021 AST [Catalytic activity/Vol] 40 U/L High <[address] [facility] Comment on above: Performed By: #### C RP, CDP, SED #### [facility] [address] [place] [address] Snow Ranger: Chriss Townsend MD (cont.) [facility] Comment on above: Result Comment: Aver age GFR for 60-69 years old: 85 mL/min/1.73sq m Chronic Kidney Disease: <60 mL/min/1.73sq m Kidney failure: <15 mL/min/1.73sq m eGFR calculated using average adult body mass. Additional eGFR calculator available at: http://www.Rotten Tomatoes/multiple_crcl_2012.htm Performed By: #### C RP, CDP, SED #### [facility] [address] [place] [address] Snow Ranger: Chriss Townsend MD Albumin [Mass/Vol] 2.6 g/dL Low 3.5-5.[address] [facility] Comment on above: Performed By: #### C RP, CDP, SED #### [address] [address] Snow Ranger: Chriss Townsend MD Albumin/Glob Ratio 0.8 Low 1.0-2.[address] [facility] Comment on above: Performed By: #### C RP, CDP, SED #### [facility] [address] [place] [address] Snow Ranger: Chriss Townsend MD Alkaline Phos 165 U/L High 35-[address] [facility] Comment on above: Performed By: #### C RP, CDP, SED #### [facility] [address] [place] [address] Snow Ranger: Chriss Townsend MD ALT [Catalytic activity/Vol] 38 U/L High 5-[address] [facility] Comment on above: Performed By: #### C RP, CDP, SED #### [facility] [address] [place] [address] Snow Ranger: Chriss Townsend MD Anion gap [Moles/Vol] 14 mmol/L Normal 9-17 [facility] Comment on above: Performed By: #### C RP, CDP, SED #### [facility] [address] [place] [address] Snow Ranger: Chriss Townsend MD Bilirubin [Mass/Vol] 0.60 mg/dL Normal 0.3-1.2 [facility] Comment on above: Performed By: #### C RP, CDP, SED #### [facility] [address] [place] [address] Snow Ranger: Chriss Townsend MD Calcium [Mass/Vol] 9.3 mg/dL Normal 8.6-10.[address] [facility] Comment on above: Performed By: #### C RP, CDP, SED #### [address] [address] Snow Ranger: Chriss Townsend MD Chloride [Moles/Vol] 104 mmol/L Normal 98-107 [facility] Comment on above: Performed By: #### C RP, CDP, SED #### [address] [address] Snow Ranger: Chriss Townsend MD CO2 [Moles/Vol] 22 mmol/L Normal 20-[address] [facility] Comment on above: Performed By: #### C RP, CDP, SED #### [facility] [address] [place] [address] Snow Ranger: Chriss Townsend MD Creatinine [Mass/Vol] 0.62 mg/dL Normal 0.50-0.90 [facility] Comment on above: Performed By: #### C RP, CDP, SED #### [facility] [address] [place] [address] Snow Ranger: Chriss Townsend MD GFR, Amer >60 Normal >60 [facility] Comment on above: Performed By: #### C RP, CDP, SED #### [facility] [address] [place] [address] Snow Ranger: Chriss Townsend MD GFR,non Amer >60 Normal >60 [facility] Comment on above: Performed By: #### C RP, CDP, SED #### [facility] [address] [place] [address] Snow Ranger: Chriss Townsend MD Glucose [Mass/Vol] 94 mg/dL Normal 70-[address] [facility] Comment on above: Performed By: #### C RP, CDP, SED #### [facility] [address] [place] [address] Snow Ranger: Chriss Townsend MD Potassium [Moles/Vol] 4.1 mmol/L Normal 3.7-5.3 [facility] Comment on above: Performed By: #### C RP, CDP, SED #### [facility] [address] [place] [address] Snow Ranger: Chriss Townsend MD Protein [Mass/Vol] 5.8 g/dL Low 6.4-8.[address] [facility] Comment on above: Performed By: #### C RP, CDP, SED #### [facility] [address] [place] [address] Snow Ranger: Chriss Townsend MD Sodium [Moles/Vol] 140 mmol/L Normal 135-[address] [facility] Comment on above: Performed By: #### C RP, CDP, SED #### [facility] [address] [place] [address] Snow Ranger: Chriss Townsend MD Urea nitrogen [Mass/Vol] 11 mg/dL Normal 8-[address] [facility] Comment on above: Performed By: #### C RP, CDP, SED #### [facility] [address] [place] [address] Snow Ranger: Chriss Townsend MD Comprehensive Metabolic Pane markell 08-14-2021 Albumin [Mass/Vol] 3.6 g/dL 3.5 - 5.2 g/dL [facility] Albumin/Globulin [Mass ratio] 1.2 {ratio} [facility] ALP (Bld) [Catalytic activity/Vol] 187 U/L High 35 - 104 U/L [facility] ALT [Catalytic activity/Vol] 31 U/L 5 - 33 U/L [facility] Anion gap [Moles/Vol] 12 mmol/L 9 - 17 mmol/L [facility] AST [Catalytic activity/Vol] 31 U/L <32 [facility] Bilirubin [Mass/Vol] 0.64 mg/dL 0.3 - 1 .2 mg/dL [facility] Calcium [Mass/Vol] 10.0 mg/dL 8.6 - 10. 4 mg/dL [facility] Chloride [Moles/Vol] 101 mmol/L 98 - 10 7 mmol/L [facility] CO2 [Moles/Vol] 27 mmol/L 20 - 31 mmol/L [facility] Creatinine [Mass/Vol] 0.55 mg/dL 0.50 - 0.90 mg/dL [facility] Free PSA/Total PSA [Mass fraction] 6.7 g/dL 6.4 - 8.3 g/dL [facility] GFR >60 >60 mL/min [facility] GFR Non- >60 >60 mL/min [facility] Glucose [Mass/Vol] 113 mg/dL High 70 - 99 mg/dL [facility] Potassium [Moles/Vol] 4.3 mmol/L 3.7 - 5.3 mmol/L [facility] Sodium [Moles/Vol] 140 mmol/L 135 - 144 mmol/L [facility] Urea nitrogen (BldV) [Mass/Vol] 12 mg/dL 8 - 23 mg/dL [facility] Urea nitrogen/Creatinine (Bld) [Mass ratio] 22 High [facility] Comprehensive Metabolic Pane l w/ Reflex to MGon 08-14-2021 Albumin [Mass/Vol] 2.6 g/dL Low 3.5 - 5.2 g/dL [facility] Albumin/Globulin [Mass ratio] 0.8 {ratio} Low [facility] ALP (Bld) [Catalytic activity/Vol] 165 U/L High 35 - 104 U/L [facility] ALT [Catalytic activity/Vol] 38 U/L High 5 - 33 U/L [facility] Anion gap [Moles/Vol] 14 mmol/L 9 - 17 mmol/L [facility] AST [Catalytic activity/Vol] 40 U/L High <32 [facility] Bilirubin [Mass/Vol] 0.60 mg/dL 0.3 - 1 .2 mg/dL [facility] Calcium [Mass/Vol] 9.3 mg/dL 8.6 - 10. 4 mg/dL [facility] Chloride [Moles/Vol] 104 mmol/L 98 - 10 7 mmol/L [facility] CO2 [Moles/Vol] 22 mmol/L 20 - 31 mmol/L [facility] Creatinine [Mass/Vol] 0.62 mg/dL 0.50 - 0.90 mg/dL [facility] Free PSA/Total PSA [Mass fraction] 5.8 g/dL Low 6.4 - 8.3 g/dL [facility] GFR >60 >60 mL/min [facility] GFR Non- >60 >60 mL/min [facility] GFR/1.73 sq M.predicted MDRD (S/P/Bld) [Vol rate/Area] [facility] Comment on above: Average GFR for 60-6 9 years old: 85 mL/min/1.73sq m Chronic Kidney Disease: <60 mL/min/1.73sq m Kidney failure: <15 mL/min/1.73sq m eGFR calculated using average adult body mass. Additional eGFR calculator available at: http://www.Rotten Tomatoes/multiple_crcl_2012.htm Glucose [Mass/Vol] 94 mg/dL 70 - 99 mg/dL [facility] Interpretation and review of laboratory results Abnormal [facility] Potassium [Moles/Vol] 4.1 mmol/L 3.7 - 5.3 mmol/L [employer] Sodium [Moles/Vol] 140 mmol/L 135 - 144 mmol/L [facility] Urea nitrogen (BldV) [Mass/Vol] 11 mg/dL 8 - 23 mg/dL [employer] [employer] [facility] [employer] EKG 12 LeadOrdered By: Ravi Henry on 08-14-2021 Atrial Rate 121 BPM [facility] Work Phone: P Boone 46 degrees [employer] [facility] Work Phone: P-R Interval 120 ms [facility] Work Phone: Q-T Interval 304 ms [facility] Work Phone: QRS Duration 66 ms [employer] [facility] Work Phone: QTc Calculation (Bazett) 431 ms [employer] Work Phone: R Boone 16 degrees [employer] [facility] Work Phone: T Boone 33 degrees [employer] Work Phone: Ventricular Rate 121 BPM [facility] [employer] Work Phone: [employer] Work Phone: EKG 12 Leadon 08-14-2021 Sinus tachycardia Possible Left atrial enlargement Cannot rule out Inferior infarct , age undetermined Abnormal ECG Confirmed by KIRA HENRY ([id number]) on 08/14/2021 12:32:57 PM [facility] RADIOLOGY Kira Henry MD - 08/14/2021 Sinus tachycardia Possible Left atrial enlargement Cannot rule out Inferior infarct , age undetermined Abnormal ECG Confirmed by KIRA HENRY ([id number]) on 08/14/2021 12:32:57 PM [employer] Work Phone: Immature Platelet Fractionon 08-14-2021 Platelet, Fluorescence 243 [employer] Platelet, Immature Fraction 2.2 % 1.1 - 10.3 % [facility] Laboratory - Chemistry and C hemistry - challengeon 08-14-2021 GFR/1.73 sq M.predicted MDRD (S/P/Bld) [Vol rate/Area] [facility] Comment on above: Average GFR for 60-6 9 years old: 85 mL/min/1.73sq m Chronic Kidney Disease: <60 mL/min/1.73sq m Kidney failure: <15 mL/min/1.73sq m eGFR calculated using average adult body mass. Additional eGFR calculator available at: http://www.Rotten Tomatoes/multiple_crcl_2012.htm Stage 1: Some kidney damage normal GFR Stage 2: Mild kidney damage GFR 60-89 Stage 3: Moderate kidney damage GFR 30-59 Stage 4: Severe kidney damage GFR 15-29 Stage 5: Severe kidney damage GFR <15 ESRD - chronic treatment by dialysis or transplant Lactate, Sepsison 08-14-2021 Interpretation and review of laboratory results Abnormal [facility] Lactic Acid, Sepsis, Whole Blood 3.0 mmol/L High 0.5 - 1.9 mmol/L [facility] Lactic Acidon 08-14-2021 Lactic Acid,Whole Bl 2.8 mmol/L High 0.7-2.1 [facility] Comment on above: Performed By: #### C RP, CDP, SED #### [facility] [place] [id number] Snow Ranger: Chriss Townsend MD Interpretation and review of laboratory results Abnormal [facility] Lactic Acid, Whole Blood 2.8 mmol/L High 0.7 - 2.1 mmol/L [facility] Lactate [Moles/Vol] 1.8 mmol/L 0.5 - 2. 2 mmol/L [facility] Lipaseon 08-14-2021 Lipase [Catalytic activity/Vol] 25 U/L 13 - 60 U/L [facility] Microscopic Urinalysison - [facility] [employer] Bacteria, UA 3+ Abnormal None [facility] Epithelial Cells UA 2 TO 5 [facility] Interpretation and review of laboratory results Abnormal [facility] RBC, UA 5 TO 10 [facility] WBC, UA 2 TO 5 [facility] No Panel Informationon 08-14 No evidence of necrotizing fasciitis throughout the visualized left lower extremity. Healing fracture evident at the body of the left pubis and mid right inferior pubic ramus. Questionable very subtle nondisplaced fracture at the anterior aspect of the left acetabulum. This may represent artifact. [facility] EXAMINATION: CT OF THE LEFT FEMUR WITH CONTRAST; CT OF THE LEFT TIBIA AND FIBULA WITH CONTRAST 08/14/2021 9:01 pm TECHNIQUE: CT of the left femur was performed with the administration of intravenous contrast. Multiplanar reformatted images are provided for review. Automated exposure control, iterative reconstruction, and/or weight based adjustment of the mA/kV was utilized to reduce the radiation dose to as low as reasonably achievable.; CT of the left tibia and fibula was performed with the administration of intravenous contrast. Multiplanar reformatted images are provided for review. Automated exposure control, iterative reconstruction, and/or weight based adjustment of the mA/kV was utilized to reduce the radiation dose to as low as reasonably achievable. COMPARISON: None. HISTORY ORDERING SYSTEM PROVIDED HISTORY: concern for nec fasc TECHNOLOGIST PROVIDED HISTORY: concern for nec fasc FINDINGS: Bones: At the medial aspect of body of the left pubis, there is healing fracture with mild surrounding, predominantly anterior, soft tissue swelling. Question of nondisplaced very subtle fracture at the anterior aspect of the acetabulum which may represent artifact. On the right, sclerotic reaction is present at the mid inferior pubic ramus likely representing healing fracture. No displacement. Osseous structures of the femur, tibia/fibula and visualized foot are otherwise unremarkable. Soft Tissue: No evidence of necrotizing fasciitis. There is mild superficial subcutaneous edema at the posterior and lateral aspects of the lower leg extending into the plantar aspect of the hindfoot. Joint: Mild degenerative changes incidentally noted. [facility] Mik Cantu - 08/14/2021 EXAMINATION: CT OF THE LEFT FEMUR WITH CONTRAST; CT OF THE LEFT TIBIA AND FIBULA WITH CONTRAST 08/14/2021 9:01 pm TECHNIQUE: CT of the left femur was performed with the administration of intravenous contrast. Multiplanar reformatted images are provided for review. Automated exposure control, iterative reconstruction, and/or weight based adjustment of the mA/kV was utilized to reduce the radiation dose to as low as reasonably achievable.; CT of the left tibia and fibula was performed with the administration of intravenous contrast. Multiplanar reformatted images are provided for review. Automated exposure control, iterative reconstruction, and/or weight based adjustment of the mA/kV was utilized to reduce the radiation dose to as low as reasonably achievable. COMPARISON: None. HISTORY ORDERING SYSTEM PROVIDED HISTORY: concern for nec fasc TECHNOLOGIST PROVIDED HISTORY: concern for nec fasc FINDINGS: Bones: At the medial aspect of body of the left pubis, there is healing fracture with mild surrounding, predominantly anterior, soft tissue swelling. Question of nondisplaced very subtle fracture at the anterior aspect of the acetabulum which may represent artifact. On the right, sclerotic reaction is present at the mid inferior pubic ramus likely representing healing fracture. No displacement. Osseous structures of the femur, tibia/fibula and visualized foot are otherwise unremarkable. Soft Tissue: No evidence of necrotizing fasciitis. There is mild superficial subcutaneous edema at the posterior and lateral aspects of the lower leg extending into the plantar aspect of the hindfoot. Joint: Mild degenerative changes incidentally noted. IMPRESSION: No evidence of necrotizing fasciitis throughout the visualized left lower extremity. Healing fracture evident at the body of the left pubis and mid right inferior pubic ramus. Questionable very subtle nondisplaced fracture at the anterior aspect of the left acetabulum. This may represent artifact. [employer] Phone: [employer] Phone: Addendum by Mik Cantu on 08/15/2021 12:34 AM EDT ADDENDUM: Critical results were called by Dr. Mik Cantu to Dr. Mcelroy on 08/15/2021 at 00:07. [employer] Phone: Soft tissue air identified within upper portion of the coracobrachialis muscle which shows surrounding inflammatory change. This raises concern for necrotizing fasciitis although no other soft tissue gas is evident. This could potentially represent intravenous air related to the contrast injection. Inflammatory change/edema otherwise involves deeper subcutaneous fatty tissues anterior, superior and posterior to the shoulder and more superficially down the lateral aspect of the upper arm. [facility] EXAMINATION: CT OF THE RIGHT HUMERUS WITH CONTRAST; CT OF THE RIGHT SHOULDER WITH CONTRAST 08/14/2021 9:02 pm TECHNIQUE: CT of the right humerus was performed with the administration of intravenous contrast. Multiplanar reformatted images are provided for review. Automated exposure control, iterative reconstruction, and/or weight based adjustment of the mA/kV was utilized to reduce the radiation dose to as low as reasonably achievable.; CT of the right shoulder was performed with the administration of intravenous contrast. Multiplanar reformatted images are provided for review. Automated exposure control, iterative reconstruction, and/or weight based adjustment of the mA/kV was utilized to reduce the radiation dose to as low as reasonably achievable. COMPARISON: None. HISTORY ORDERING SYSTEM PROVIDED HISTORY: concern for nec fasc TECHNOLOGIST PROVIDED HISTORY: concern for nec fasc FINDINGS: Bones: No evidence of acute fracture or dislocation. No aggressive appearing osseous abnormality or periostitis. Bone density is normal. Soft Tissue: Mild subcutaneous fatty tissue edema surrounds the superior, anterior and posterior aspects of the shoulder and extends inferiorly down the lateral aspect of the arm. Additionally, there is mild edema within the axilla which may also involve the coracobrachialis muscle. Within the upper portion of the belly of the coracobrachialis muscle, soft tissue air is present. It is localized and no other soft tissue air is identified. There is prominence of the subacromial/subdeltoid bursa posterolaterally. There is enhancement of the capsule of the bursa. Joint: No significant degenerative changes. No osseous erosions. [facility] Mik Cantu - 08/14/2021 EXAMINATION: CT OF THE RIGHT HUMERUS WITH CONTRAST; CT OF THE RIGHT SHOULDER WITH CONTRAST 08/14/2021 9:02 pm TECHNIQUE: CT of the right humerus was performed with the administration of intravenous contrast. Multiplanar reformatted images are provided for review. Automated exposure control, iterative reconstruction, and/or weight based adjustment of the mA/kV was utilized to reduce the radiation dose to as low as reasonably achievable.; CT of the right shoulder was performed with the administration of intravenous contrast. Multiplanar reformatted images are provided for review. Automated exposure control, iterative reconstruction, and/or weight based adjustment of the mA/kV was utilized to reduce the radiation dose to as low as reasonably achievable. COMPARISON: None. HISTORY ORDERING SYSTEM PROVIDED HISTORY: concern for nec fasc TECHNOLOGIST PROVIDED HISTORY: concern for nec fasc FINDINGS: Bones: No evidence of acute fracture or dislocation. No aggressive appearing osseous abnormality or periostitis. Bone density is normal. Soft Tissue: Mild subcutaneous fatty tissue edema surrounds the superior, anterior and posterior aspects of the shoulder and extends inferiorly down the lateral aspect of the arm. Additionally, there is mild edema within the axilla which may also involve the coracobrachialis muscle. Within the upper portion of the belly of the coracobrachialis muscle, soft tissue air is present. It is localized and no other soft tissue air is identified. There is prominence of the subacromial/subdeltoid bursa posterolaterally. There is enhancement of the capsule of the bursa. Joint: No significant degenerative changes. No osseous erosions. IMPRESSION: Soft tissue air identified within upper portion of the coracobrachialis muscle which shows surrounding inflammatory change. This raises concern for necrotizing fasciitis although no other soft tissue gas is evident. This could potentially represent intravenous air related to the contrast injection. Inflammatory change/edema otherwise involves deeper subcutaneous fatty tissues anterior, superior and posterior to the shoulder and more superficially down the lateral aspect of the upper arm. [facility] Work Phone: Radiology Study observation (narrative) [facility] Work Phone: Radiology Study observation (narrative) [facility] [employer] Work Phone: [facility] [employer] Radiology Study observation (narrative) [facility] [employer] Work Phone: Interpretation and review of laboratory results Abnormal [facility] [employer] [facility] [employer] No Panel InformationOrdered By: Mik Cantu on 08-14-2021 [facility] Phone: PLT, Immature Fract.on 08-14 Platelet, Fluoresc. 243 k/uL Normal 138-[address] [facility] Comment on above: Performed By: #### C RP, CDP, SED #### [facility] [place] [address] Snow Ranger: Chriss Townsend MD PLT, Immature Fract. 2.2 % Normal 1.1-10.3 [facility] Comment on above: Performed By: #### C RP, CDP, SED #### [facility] [address] [place] [address] Snow Ranger: Chriss Townsend MD PTon 3 INR Coag (PPP) [Relative time] 1.0 {INR} Normal [facility] Comment on above: Result Comment: Therapeutic Range: Moderate Anticoagulant Intensity: INR = 2.0-3.0 High Anticoagulant Intensity: INR = 2.5-3.5 Performed By: #### L ACTIC #### [facility] [address] [place] [id number] Snow Ranger: Chriss Townsend MD PT Coag (PPP) [Time] 10.4 s Normal 9.1-12.3 [facility] Comment on above: Performed By: #### L ACTIC #### [facility] [address] [place] [id number] Snow Ranger: Chriss Townsend MD Procalcitoninon 9 Interpretation and review of laboratory results Abnormal [facility] Procalcitonin 3.47 ng/mL High <0.09 [facility] Comment on above: Suspected Sepsis: <0.50 ng/mL Low likelihood of sepsis. 0.50-2.00 ng/mL Increased likelihood of sepsis. Antibiotics encouraged. >2.00 ng/mL High risk of sepsis/shock. Antibiotics strongly encouraged. Suspected Lower Resp Tract Infections: <0.24 ng/mL Low likelihood of bacterial infection. >0.24 ng/mL Increased likelihood of bacterial infection. Antibiotics encouraged. With successful antibiotic therapy, PCT levels should decrease rapidly. (Half-life of 24 to 36 hours.) Procalcitonin values from samples collected within the first 6 hours of systemic infection may still be low. Retesting may be indicated. Values from day 1 and day 4 can be entered into the Change in Procalcitonin Calculator (www.mgvgmf-nxt-ftpgswknjl.Zoutons) to determine the patient's Mortality Risk Prognosis In healthy neonates, plasma Procalcitonin (PCT) concentrations increase gradually after , reaching peak values at about 24 hours of age then decrease to normal values below 0.5 ng/mL by 48-72 hours of age. [facility] Protime-INRon 08-14-2021 INR Coag (Bld) [Relative time] 1.0 {INR} [facility] Comment on above: Therapeutic Range: Moderate Anticoagulant Intensity: INR = 2.0-3.0 High Anticoagulant Intensity: INR = 2.5-3.5 PT Coag (PPP) [Time] 10.4 s [facility] INR Coag (Bld) [Relative time] 1.2 {INR} [facility] Comment on above: Non-therapeutic Range: INR = 0.9-1.2 Therapeutic Range: Moderate Anticoagulant Intensity: INR = 2.0-3.0 High Anticoagulant Intensity: INR = 2.5-3.5 Interpretation and review of laboratory results Abnormal [facility] PT Coag (PPP) [Time] 14.6 s High [facility] [id number] 08-14-2021 SARS-CoV-2 (COVID-19) RNA GLYNN+probe Ql (Unsp spec) Not detected Normal [facility] Comment on above: Result Comment: Rapid NAAT: The specimen is NEGATIVE for SARS-CoV-2, the novel coronavirus associated with COVID-19. The ID NOW COVID-19 assay is designed to detect the virus that causes COVID-19 in patients with signs and symptoms of infection who are suspected of COVID-19. An individual without symptoms of COVID-19 and who is not shedding SARS-CoV-2 virus would expect to have a negative (not detected) result in this assay. Negative results should be treated as presumptive and, if inconsistent with clinical signs and symptoms or necessary for patient management, should be tested with an alternative molecular assay. Negative results do not preclude SARS-CoV-2 infection and should not be used as the sole basis for patient management decisions. Fact sheet for Healthcare Providers: https://www.fda.gov/media/822699/download Fact sheet for Patients: https://www.fda.gov/media/245756/download Methodology: Isothermal Nucleic Acid Amplification Performed By: #### C OVRB #### [facility] [address] [place] [id number] Snow Ranger: Chriss Townsend MD SPECIMEN REJECTIONon Ordered Test PT PTT [facility] [employer] Specimen source Nom (Unsp spec) .BLOOD [facility] Sedimentation Rateon Sedimentation Rate 84 mm/Hr High 0-[address] [facility] Comment on above: Performed By: #### C RP, CDP, SED #### [facility] [address] [place] [address] Snow Ranger: Chriss Townsend MD Interpretation and review of laboratory results Abnormal [facility] [employer] Sed Rate 84 High [facility] Interpretation and review of laboratory results Abnormal [facility] Sed Rate 66 High [facility] Specimen Rejectionon Source of sample .BLOOD Normal [facility] Comment on above: Performed By: #### C RP, CDP, SED #### [facility] [address] [place] [id number] Snow Ranger: Chriss Townsend MD Test ordered PT PTT Normal [facility] Comment on above: Performed By: #### C RP, CDP, SED #### [employer] [address] [place] [id number] Snow Ranger: Chriss Townsend MD Reason for Rejection Unable to perform testing: Specimen clotted. Normal [facility] Comment on above: Performed By: #### C RP, CDP, SED #### [facility] [address] [place] [address] [id number] Snow Ranger: Chriss Townsend MD Troponinon 08-14-2021 Troponin, High Sensitivity 7 ng/L 0 - 14 ng/L [facility] Comment on above: High Sensitivity Troponin values cannot be compared with other Troponin methodologies. Patients with high levels of Biotin oral intake (i.e >5mg/day) may have falsely decreased Troponin levels. Samples collected within 8 hours of biotin intake may require additional information for diagnosis. [facility] Urinalysis with Reflex to Cu ltureon 08-14-2021 Bilirubin Urine Negative NEGATIVE [facility] Color, UA Yellow Yellow [facility] Glucose, Ur Negative NEGATIVE [facility] Interpretation and review of laboratory results Abnormal [facility] Ketones Ql (U) Negative NEGATIVE [facility] Leukocyte esterase Test strip Ql (U) Negative NEGATIVE [facility] Nitrite, Urine Positive Abnormal NEGATIVE [facility] pH, UA 6.5 [facility] Protein, UA Negative NEGATIVE [facility] Specific Swengel, UA 1.010 [facility] Turbidity UA Clear Clear [facility] Urine Hgb 1+ Abnormal NEGATIVE [facility] Urobilinogen, Urine Normal Normal [facility] XR PELVIS (MIN 3 VIEWS)on XR PELVIS (MIN 3 VIEWS) EXAMINATION: ONE XRAY VIEW OF THE PELVIS 08/14/2021 7:13 pm COMPARISON: CT performed concurrently. HISTORY: ORDERING SYSTEM PROVIDED HISTORY: previous fractures TECHNOLOGIST PROVIDED HISTORY: AP, inlet, outlet and Judet views (obturator and iliac oblique). Thank you previous fractures FINDINGS: Right femoral central venous catheter terminating in the expected location of the external iliac vein. Nondisplaced fractures of the left superior and inferior pubic rami at the pubic symphysis and right inferior and superior pubic rami with some healing callus formation. Nondisplaced bilateral sacral ala fractures. Contrast distends the urinary bladder and partially obscures oblique views.. IMPRESSION: Nondisplaced fracture of the left superior and inferior pubic rami at the pubic symphysis with ongoing healing. Nondisplaced right superior and inferior pubic rami fractures with ongoing healing. Nondisplaced bilateral sacral ala fractures with ongoing healing. Interpreted by: Bhumika Clark MD Signed by: Bhumika Clark MD 08/14/21 Final result Normal [facility] Nondisplaced fractur e of the left superior and inferior pubic rami at the pubic symphysis with ongoing healing. Nondisplaced right superior and inferior pubic rami fractures with ongoing healing. Nondisplaced bilateral sacral ala fractures with ongoing healing. [facility] EXAMINATION: ONE XRAY VIEW OF THE PELVIS 08/14/2021 7:13 pm COMPARISON: CT performed concurrently. HISTORY: ORDERING SYSTEM PROVIDED HISTORY: previous fractures TECHNOLOGIST PROVIDED HISTORY: AP, inlet, outlet and Judet views (obturator and iliac oblique). Thank you previous fractures FINDINGS: Right femoral central venous catheter terminating in the expected location of the external iliac vein. Nondisplaced fractures of the left superior and inferior pubic rami at the pubic symphysis and right inferior and superior pubic rami with some healing callus formation. Nondisplaced bilateral sacral ala fractures. Contrast distends the urinary bladder and partially obscures oblique views.. [facility] Bhumika Clark MD - 08/14/2021 EXAMINATION: ONE XRAY VIEW OF THE PELVIS 08/14/2021 7:13 pm COMPARISON: CT performed concurrently. HISTORY: ORDERING SYSTEM PROVIDED HISTORY: previous fractures TECHNOLOGIST PROVIDED HISTORY: AP, inlet, outlet and Judet views (obturator and iliac oblique). Thank you previous fractures FINDINGS: Right femoral central venous catheter terminating in the expected location of the external iliac vein. Nondisplaced fractures of the left superior and inferior pubic rami at the pubic symphysis and right inferior and superior pubic rami with some healing callus formation. Nondisplaced bilateral sacral ala fractures. Contrast distends the urinary bladder and partially obscures oblique views.. IMPRESSION: Nondisplaced fracture of the left superior and inferior pubic rami at the pubic symphysis with ongoing healing. Nondisplaced right superior and inferior pubic rami fractures with ongoing healing. Nondisplaced bilateral sacral ala fractures with ongoing healing. [employer] Phone: XR PELVIS (MIN 3 VIEWS)Order ed By: Bhumika Clark on 08-14-2021 [employer] Phone: XR SHOULDER RIGHT (MIN 2 VIE WS)on 08-14-2021 XR SHOULDER RIGHT (MIN 2 VIEWS) EXAMINATION: THREE XRAY VIEWS OF THE RIGHT SHOULDER 08/14/2021 7:13 pm COMPARISON: None. HISTORY: ORDERING SYSTEM PROVIDED HISTORY: effusion TECHNOLOGIST PROVIDED HISTORY: AP, scapular Y, axillary. Thank you. effusion FINDINGS: Glenohumeral joint is normally aligned. No evidence of acute fracture or dislocation. No abnormal periarticular calcifications. AC joint and glenohumeral joint degenerative changes Visualized lung is unremarkable. IMPRESSION: No acute abnormality. Interpreted by: Boni Spain MD Signed by: Boni Spain MD 08/14/21 Final result Normal [facility] No acute abnormality . [facility] EXAMINATION: THREE XRAY VIEWS OF THE RIGHT SHOULDER 08/14/2021 7:13 pm COMPARISON: None. HISTORY: ORDERING SYSTEM PROVIDED HISTORY: effusion TECHNOLOGIST PROVIDED HISTORY: AP, scapular Y, axillary. Thank you. effusion FINDINGS: Glenohumeral joint is normally aligned. No evidence of acute fracture or dislocation. No abnormal periarticular calcifications. AC joint and glenohumeral joint degenerative changes Visualized lung is unremarkable. [facility] Boni Spain MD - 08/14/2021 EXAMINATION: THREE XRAY VIEWS OF THE RIGHT SHOULDER 08/14/2021 7:13 pm COMPARISON: None. HISTORY: ORDERING SYSTEM PROVIDED HISTORY: effusion TECHNOLOGIST PROVIDED HISTORY: AP, scapular Y, axillary. Thank you. effusion FINDINGS: Glenohumeral joint is normally aligned. No evidence of acute fracture or dislocation. No abnormal periarticular calcifications. AC joint and glenohumeral joint degenerative changes Visualized lung is unremarkable. IMPRESSION: No acute abnormality. [employer] Phone: XR SHOULDER RIGHT (MIN 2 VIE WS)Ordered By: Boni Spain on 08-14-2021 [employer] Phone: CULTURE URINEon 07-22-2021 CULTURE URINE Isolate 1 Escherichia coli >100,000 cfu/ml of ORGANISM 1 Escherichia coli ANTIBIOTIC M.I.C RX STATUS Ampicillin 4 S F Ampicillin/Sulbactam <=2 S F Piperacillin/Tazobactam <=4 S F Cefazolin <=4 S F Ceftazidime <=1 S F Ceftriaxone <=1 S F Ertapenem <=0.5 S F Imipenem <=0.25 S F Amikacin <=2 S F Gentamicin <=1 S F Tobramycin <=1 S F Ciprofloxacin <=0.25 S F Levofloxacin <=0.12 S F Nitrofurantoin <=16 S F Trimethoprim/Sulfamethoxa zole <=20 S F Normal [facility] Comment on above: Performed By: #### C VDTBH #### [facility] [address] [place] [address] Dr. Laila Castle CBC AUTO DIFFon 07-20-2021 BASO # 0.1 103/ul Normal 0.0-0.1 [facility] Comment on above: Performed By: #### P OCGLUC #### [facility] [address] [place] [address] Dr. Laila Castle Basophils/100 WBC (Bld) 0.4 % Normal 0.2-2.0 [facility] Comment on above: Performed By: #### P OCGLUC #### [facility] [address] [place] [address] Dr. Laila Castle EO # 0.0 103/ul Normal 0.0-0.7 [facility] Comment on above: Performed By: #### P OCGLUC #### [facility] [address] [place] [address] Dr. Laila Castle Eosinophils/100 WBC (Bld) 0.1 % Critically low 0.9-7.0 [facility] Comment on above: Performed By: #### P OCGLUC #### [facility] [address] [place] [address] Dr. Laila Castle Erythrocyte distribution width (RBC) [Ratio] 14.9 % Normal 11.0-15.0 [facility] Comment on above: Performed By: #### P OCGLUC #### [facility] [address] [place] [address] Dr. Laila Castle Hematocrit (Bld) [Volume fraction] 41.0 % Normal 36.0-48.0 [facility] Comment on above: Performed By: #### P OCGLUC #### [facility] [address] [address] [address] Laila Castle Hemoglobin (Bld) [Mass/Vol] 13.4 g/dL Normal 12.0-16.0 [facility] Comment on above: Performed By: #### P OCGLUC #### [facility] [address] [address] [address] Laila Castle IG # 0.24 10e3/ul Critically high 0.00-0.03 [facility] Comment on above: Performed By: #### P OCGLUC #### [facility] [address] [address] [address] Laila Castle IG % 1.5 % Critically high 0.0-0.5 [facility] Comment on above: Performed By: #### P OCGLUC #### [facility] [address] [address] [address] Laila Castle LYMPH # 1.2 103/ul Normal 1.2-3.8 [facility] Comment on above: Performed By: #### P OCGLUC #### [facility] [address] [address] [address] Laila Castle Lymphocytes/100 WBC (Bld) 7.5 % Critically low 20.5-60.0 [facility] Comment on above: Performed By: #### P OCGLUC #### [facility] [address] [address] [address] Laila Castle MANUAL DIFF REQ NO Normal [facility] Comment on above: Performed By: #### P OCGLUC #### [facility] [address] [address] [address] Laila Castle MCH (RBC) [Entitic mass] 30.2 pg Normal 26.7-34.0 [facility] Comment on above: Performed By: #### P OCGLUC #### [facility] [address] [place] [address] Dr. Laila Castle MCHC (RBC) [Mass/Vol] 32.7 g/dL Normal 29.9-35.2 [facility] Comment on above: Performed By: #### P OCGLUC #### [facility] [address] [address] [address] Laila Castle MCV (RBC) [Entitic vol] 92.6 fL Normal 81.0-99.0 [facility] Comment on above: Performed By: #### P OCGLUC #### [facility] [address] [address] [address] Laila Castle MONO # 0.8 103/ul Normal 0.3-0.8 [facility] Comment on above: Performed By: #### P OCGLUC #### [facility] [address] [address] [address] Laila Castle Monocytes/100 WBC (Bld) 5.3 % Normal 1.7-12.0 [facility] Comment on above: Performed By: #### P OCGLUC #### [facility] [address] [place] [address] Dr. Laila Castle NEUT # 13.5 103/ul Critically high 1.4-6.5 [facility] Comment on above: Performed By: #### P OCGLUC #### [facility] [address] [place] [address] Dr. Laila Castle Neutrophils/100 WBC (Bld) 85.2 % Critically high 43.0-75.0 [facility] Comment on above: Performed By: #### P OCGLUC #### [facility] [address] [place] [address] Dr. Laila Castle Platelet mean volume (Bld) [Entitic vol] 9.3 fL Critically low 9.5-13.5 [facility] Comment on above: Performed By: #### P OCGLUC #### [facility] [address] [place] [address] Dr. Laila Castle PLT 263 103/ul Normal 150-450 [facility] Comment on above: Performed By: #### P OCGLUC #### [facility] [address] [place] [address] Dr. Laila Castle RBC 4.43 106/ul Normal 4.20-5.40 [facility] Comment on above: Performed By: #### P OCGLUC #### [facility] [address], [place] [address] [address] Laila Castle WBC 15.9 103/ul Critically high 4.0-11.0 [facility] Comment on above: Performed By: #### P OCGLUC #### [facility] [address], [place] [address] LSPINE WO CONon 2 CT LSPINE WO CON EXAMINATION: CT ABD/ PELV W CON, CT LSPINE WO CON HISTORY: 65-year-old female with right lower quadrant pain and low back pain after fall on July 02. COMPARISON: Lumbar spine radiographs 07/18/2021 TECHNIQUE: 1. CT images were obtained of the abdomen and pelvis following the administration of intravenous contrast. 2. CT images were obtained of the lumbar spine. Sagittal and coronal reformations were performed. Dose reduction techniques were achieved by using automated exposure control and/or adjustment of mA and/or kV according to patient size and/or use of iterative reconstruction technique. FINDINGS: Lung Bases: Subpleural reticulation without cystic change. Right middle lobe bronchiectasis. Lower Heart: Mitral valve calcifications. Prominent pericardial lymph node, nonenlarged. Liver: Normal contour. Subcentimeter right hepatic dome hypodensity, too small to characterize (4:13). No suspicious focal lesion. Mild central intrahepatic biliary ductal prominence in the postcholecystectomy setting. Gallbladder: Surgically absent. Pancreas: Uniform enhancement. No ductal dilation. No peripancreatic inflammatory change. Spleen: Unremarkable. Adrenal Glands: Normal. Kidneys / Ureters / Bladder: Right interpolar renal cyst, 1.8 cm. Right lower pole subcentimeter hypodensities too small to characterize. Otherwise symmetric renal enhancement without suspicious lesion. Nonspecific soft tissue density along the posterior pararenal fascia on the right. Unremarkable bladder. Lower esophagus / Stomach: Unremarkable. Under distended stomach. Bowel / Mesentery: No evidence of obstruction. No free intraabdominal air. Congenital malrotation, with small bowel within the right hemiabdomen, and duodenum not crossing midline. Lymph Nodes: No adenopathy. Vasculature: Moderate systemic atherosclerosis without aneurysmal dilation. Reproductive Organs: Unremarkable. Extraperitoneal Soft Tissues: Small fat-containing umbilical hernia. Bones: Nondisplaced bilateral sacral fractures. No concerning lytic or blastic process. Lumbar spine: 5 lumbar vertebral bodies. No acute fracture or dislocation. Normal osseous mineralization. Grade 1 anterolisthesis of L4 on L5 with posterior disc uncovering. Hypertrophy of the spinous processes with squared morphology from L3-L5. Bilateral facet degeneration at all lumbar levels, worst at L4-5 and L5-S1, with areas osseous neural foraminal narrowing, up to moderate in degree at L5-S1 on the left. Disc bulges at L4-5 and L5-S1, causing mild canal narrowing. IMPRESSION: 1. Bilateral nondisplaced sacral insufficiency fractures. 2. 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 Facet arthropathy at these levels causes neural foraminal stenosis, up to moderate in degree at L5-S1 on the left. 3. No acute abdominopelvic visceral findings by CT. Electronically authenticated by: ZAN KRAUSE Date: 2021-07-20 10:25 Normal [facility] ER URINE PROFILEon 2 Bilirubin Ql (U) Negative Normal NEGATIVE [facility] Comment on above: Performed By: #### C MP #### [facility] [address] [place] [address] Dr. Laila Castle Clarity (U) CLEAR Normal CLEAR [facility] Comment on above: Performed By: #### C MP #### [facility] [address] [place] [address] Dr. Laila Castle Color (U) LT. YELLOW Normal YELLOW [facility] Comment on above: Performed By: #### C MP #### [facility] [address] [place] [address] Dr. Laila Castle ERUAHD A micrscopic examina tion will be performed if indicated. Normal [facility] Comment on above: Performed By: #### C MP #### [facility] [address] [place] [address] Dr. Laila Castle Glucose Ql (U) Negative Normal NEGATIVE [facility] Comment on above: Performed By: #### C MP #### [facility] [address] [place] [address] Dr. Laila Castle Hemoglobin Ql (U) Negative Normal NEGATIVE [facility] Comment on above: Performed By: #### C MP #### [facility] [address] [place] [address] Dr. Laila Castle Ketones Ql (U) Negative Normal NEGATIVE [facility] Comment on above: Performed By: #### C MP #### [facility] [address] [place] [address] Dr. Laila aCstle LEUKOCYTES SMALL Abnormal NEGATIVE [facility] Comment on above: Performed By: #### C MP #### [facility] [address] [place] [address] Dr. Laila Castle Nitrite Ql (U) Negative Normal NEGATIVE [facility] Comment on above: Performed By: #### C MP #### [facility] [address] [place] [address] Dr. Laila Castle pH (U) 6.0 [pH] Normal 5-9 [facility] Comment on above: Performed By: #### C MP #### [facility] [address] [place] [address] Dr. Laila Castle SPEC GRAVITY <=1.005 Abnormal 1.005-<=1.0 25 [facility] Comment on above: Performed By: #### C MP #### [facility] [address] [place] [address] Dr. Laila Castle UA PROTEIN Negative Normal NEGATIVE/ TRACE [facility] Comment on above: Performed By: #### C MP #### [facility] [address] [place] [address] Dr. Laila Castle UR MICRO IND INDICATED Normal [facility] Comment on above: Performed By: #### C MP #### [facility] [address] [place] [address] Dr. Laila Castle Urobilinogen Qn (U) 0.2 {Mehran'U}/dL Normal 0.2 - 1. 0 [facility] Comment on above: Performed By: #### C MP #### [facility] [address] [place] [address] Dr. Laila Castle PROF CHEM 8 (BAS METB)on Anion gap [Moles/Vol] 12.1 mmol/L Normal [facility] Comment on above: Performed By: #### P OCGLUC #### [facility] [address] [address] [address] Laila Castle Calcium [Mass/Vol] 9.7 mg/dL Normal 8.5-10.1 [facility] Comment on above: Performed By: #### P OCGLUC #### [facility] [address] [address] [address] Laila Castle Chloride [Moles/Vol] 94 mmol/L Critically low 98-107 [facility] Comment on above: Performed By: #### P OCGLUC #### [facility] [address] [address] [address] Laila Castle CO2 [Moles/Vol] 33.7 mmol/L Critically high 21.0-32.0 [facility] Comment on above: Performed By: #### P OCGLUC #### [facility] [address] [address] [address] Laila Castle Creatinine [Mass/Vol] 0.59 mg/dL Normal 0.55-1.02 [facility] Comment on above: Performed By: #### P OCGLUC #### [facility] [address] [place] [address] Dr. Laila Castle EGFR-AF CAYMAN ISLANDER >60 Normal >=60 [facility] Comment on above: Performed By: #### P OCGLUC #### [facility] [address] [address] [address] Laila Castle EGFR-NON AF [place] ISLANDER >60 Normal >=60 [facility] Comment on above: Performed By: #### P OCGLUC #### [facility] [address] [address] [address] Laila Castle Glucose [Mass/Vol] 88 mg/dL Normal 74-106 [facility] Comment on above: Performed By: #### P OCGLUC #### [facility] [address] [address] [address] Laila Castle Potassium [Moles/Vol] 3.8 mmol/L Normal 3.5-5.1 [facility] Comment on above: Performed By: #### P OCGLUC #### [facility] [address] [place] [address] Dr. Laila Castle Sodium [Moles/Vol] 136 mmol/L Normal 136-145 [facility] Comment on above: Performed By: #### P OCGLUC #### [facility] [address] [place] [address] Dr. Laila Castle Urea nitrogen [Mass/Vol] 15.0 mg/dL Normal 7.0-18.0 [facility] Comment on above: Performed By: #### P OCGLUC #### [facility] [address] [place] [address] Dr. Laila Castle Urea nitrogen/Creatinine [Mass ratio] 25.4 mg/mg Normal [facility] Comment on above: Performed By: #### P OCGLUC #### [facility] [address] [place] [address] Dr. Laila Castle URINE MICROSCOPIC ONLYon BACTERIA LARGE Abnormal NONE SEEN [facility] Comment on above: Performed By: #### C MP #### [facility] [address] [place] [address] Dr. Laila Castle Bacteria identified Cx Nom (U) CX ALREADY ORDERED Normal [facility] Comment on above: Performed By: #### C MP #### [facility] [address] [place] [address] Dr. Laila Castle CAST NONE SEEN Normal NONE SEEN [facility] Comment on above: Performed By: #### C MP #### [facility] [address] [place] [address] Dr. Laila Castle Crystals LM Nom (Urine sed) NONE SEEN Normal NONE SEEN [facility] Comment on above: Performed By: #### C MP #### [facility] [address] [place] [address] Dr. Laila Castle Epithelial cells LM Ql (Urine sed) FEW Abnormal NONE SEEN /RARE [facility] Comment on above: Performed By: #### C MP #### [facility] [address] [place] [address] Dr. Laila Castle MUCOUS TRACE Abnormal NONE SEEN [facility] Comment on above: Performed By: #### C MP #### [facility] [address] [place] [address] Dr. Laila Castle RBC 0-2 Normal 0-2 [facility] Comment on above: Performed By: #### C MP #### [facility] [address] [place] [address] Dr. Laila Castle TRICH SEEN Abnormal NONE SEEN [facility] Comment on above: Result Comment: Prev iously reported as: (blank) On 07/20/2021 12:03 By KD3 Performed By: #### C MP #### [facility] [address] [place] [address] Dr. Laila Castle WBC 2-5 Abnormal NONE SEEN [facility] Comment on above: Performed By: #### C MP #### [facility] [address] [place] [address] Dr. Laila Castle BACTERIA TRACE Abnormal NONE SEEN [facility] Comment on above: Performed By: #### C MP #### [facility] [address] [place] [address] Dr. Laila Castle Bacteria identified Cx Nom (U) INDICATED Normal [facility] Comment on above: Performed By: #### C MP #### [facility] [address] [place] [address] Dr. Laila Castle CAST NONE SEEN Normal NONE SEEN [facility] Comment on above: Performed By: #### C MP #### [facility] [address] [place] [address] Dr. Laila Castle Crystals LM Nom (Urine sed) NONE SEEN Normal NONE SEEN [facility] Comment on above: Performed By: #### C MP #### [facility] [address] [place] [address] Dr. Laila Castle Epithelial cells LM Ql (Urine sed) RARE Normal NONE SEEN /RARE [facility] Comment on above: Performed By: #### C MP #### [facility] [address] [place] [address] Dr. Laila Castle MUCOUS SMALL Abnormal NONE SEEN [facility] Comment on above: Performed By: #### C MP #### [facility] [address] [address] [address] Laila Castle RBC NONE SEEN Abnormal 0-2 [facility] Comment on above: Performed By: #### C MP #### [facility] [address] [address] [address] Laila Castle TRICH SEEN Abnormal NONE SEEN [facility] Comment on above: Performed By: #### C MP #### [facility] [address] [address] [address] Laila Castle WBC 2-5 Abnormal NONE SEEN [facility] Comment on above: Performed By: #### C MP #### [facility] [address] [address] [address] Laila Castle XR LSPINE 2_3 VIEWSon 2021 XR LSPINE 2_3 VIEWS EXAMINATION: XR LSPI NE 2_3 VIEWS HISTORY: Low back pain COMPARISON: No relevant comparison available. FINDINGS: BONES: 4 mm anterolisthesis of L4 in relation L5. Otherwise normal alignment. Minimal spondylosis. Moderate facet osteoarthropathy most significant DISC SPACES: Multilevel disc space narrowing most significant at L5-S1 PARASPINOUS: Negative. No paraspinous abnormality is seen. OTHER: Atherosclerosis IMPRESSION: Degenerative changes Grade 1 anterolisthesis L4 on L5 Electronically authenticated by: COLLETTE ELIZONDO Date: 2021-07-18 13:41 Normal [facility] Vital Signs Date Time Vital Sign Value Performing Clinician Facility 12-30-2022 10:00-0400 Body height 165.1 cm Moises Jose Other [facility] Other 10-27-2022 16:21-0400 SaO2% (BldA) [Mass fraction] 96 % Charanjit Hu MD Work Phone: [facility] 10-27-2022 14:22-0400 Diastolic blood pressure 51 mm[Hg] Charanjit Hu MD Work Phone: [facility] 10-27-2022 14:22-0400 Systolic blood pressure 137 mm[Hg] Charanjit Hu MD Work Phone: [facility] 10-27-2022 12:33-0400 Body temperature 98.01 [degF] Charanjit Hu MD Work Phone: [facility] 10-27-2022 12:33-0400 Heart rate 96 /min Charanjit Hu MD Work Phone: [facility] 10-27-2022 12:33-0400 Respiratory rate 13 /min Charanjit Hu MD Work Phone: [facility] 10-17-2022 06:27-0400 Body temperature 98.1 [degF] Kelsie Wills MD Work Phone: [facility] 10-17-2022 06:27-0400 Diastolic blood pressure 65 mm[Hg] Kelsie Wills MD Work Phone: [facility] 10-17-2022 06:27-0400 Heart rate 92 /min Kelsie Wills MD Work Phone: [facility] 10-17-2022 06:27-0400 Respiratory rate 20 /min Kelsie Wills MD Work Phone: [facility] 10-17-2022 06:27-0400 SaO2% (BldA) [Mass fraction] 96 % Kelsie Wills MD Work Phone: [facility] 10-17-2022 06:27-0400 Systolic blood pressure 137 mm[Hg] Kelsie Wills MD Work Phone: [facility] 10-14-2022 19:00-0400 Body height 162.6 cm Kelsie Wills MD Work Phone: [facility] 10-03-2022 10:20-0400 Body height 165.1 cm Moises Garcia Other [facility] Other 10-03-2022 10:20-0400 Body mass index (BMI) [Ratio] 31.61 kg/m2 Moises Garcia Other [facility] Other 10-03-2022 10:20-0400 Body weight 86.18 kg Moises Garcia Other [facility] Other 10-03-2022 10:20-0400 Diastolic blood pressure 75 mm[Hg] Moises Garcia Other [facility] Other 10-03-2022 10:20-0400 Systolic blood pressure 168 mm[Hg] Moises Garcia Other [facility] Other 09-26-2022 09:57-0400 Inhaled oxygen flow rate 2 L/min DO Bhumika Ball Work Phone: [facility] 09-26-2022 08:12-0400 Body temperature 98.1 [degF] DO Bhumika Ball Work Phone: [facility] 09-26-2022 08:12-0400 Diastolic blood pressure 83 mm[Hg] DO Bhumika Ball Work Phone: [facility] 09-26-2022 08:12-0400 Heart rate 94 /min DO Bhumika Ball Work Phone: [facility] 09-26-2022 08:12-0400 Respiratory rate 18 /min DO Bhumika Ball Work Phone: [facility] 09-26-2022 08:12-0400 SaO2% (BldA) [Mass fraction] 99 % DO Bhumika Ball Work Phone: [facility] 09-26-2022 08:12-0400 Systolic blood pressure 161 mm[Hg] DO Bhumika Ball Work Phone: [facility] 09-25-2022 07:16-0400 Body height 162.56 cm DO Bhumika Ball Work Phone: [facility] 09-21-2022 05:44-0400 Body weight 88.7 kg DO Bhumika Ball Work Phone: [facility] 09-17-2022 15:44-0400 Body temperature 97.9 [degF] DO Bhumika Ball Work Phone: [facility] 09-17-2022 15:44-0400 Diastolic blood pressure 86 mm[Hg] DO Bhumika Ball Work Phone: [facility] 09-17-2022 15:44-0400 Heart rate 102 /min DO Bhumika Ball Work Phone: [facility] 09-17-2022 15:44-0400 Inhaled oxygen flow rate 2 L/min DO Bhumika Ball Work Phone: [facility] 09-17-2022 15:44-0400 SaO2% (BldA) [Mass fraction] 98 % DO Bhumika Ball Work Phone: [facility] 09-17-2022 15:44-0400 Systolic blood pressure 147 mm[Hg] DO Bhumika Ball Work Phone: [facility] 09-17-2022 15:31-0400 Respiratory rate 18 /min DO Bhumika Ball Work Phone: [facility] 09-17-2022 06:00-0400 Body weight 91.3 kg DO Bhumika Ball Work Phone: [facility] 09-15-2022 07:54-0400 Body height 162.56 cm DO Bhumika Ball Work Phone: [facility] 09-15-2022 07:54-0400 Body mass index (BMI) [Ratio] 33.4 kg/m2 DO Bhumika Ball Work Phone: [facility] 09-05-2022 15:15-0400 Diastolic blood pressure 90 mm[Hg] Et3 [facility] 09-05-2022 15:15-0400 Heart rate 114 /min Et3 [facility] 09-05-2022 15:15-0400 SaO2% (BldA) [Mass fraction] 97 % Et3 [facility] Comment on above: 2L OR 09-05-2022 15:15-0400 Systolic blood pressure 141 mm[Hg] Et3 [facility] 08-26-2022 08:45-0400 Body height 165.1 cm Bhumika Ball Other [facility] Other 08-26-2022 08:45-0400 Body mass index (BMI) [Ratio] 33.81 kg/m2 Bhumika Ball Other [facility] Other 08-26-2022 08:45-0400 Body weight 92.17 kg Bhumika Ball Other [facility] Other 08-26-2022 08:45-0400 Diastolic blood pressure 82 mm[Hg] Bhumika Ball Other [facility] Other 08-26-2022 08:45-0400 Respiratory rate 25 /min Bhumika Ball Other [facility] Other 08-26-2022 08:45-0400 Systolic blood pressure 140 mm[Hg] Bhumika Ball Other [facility] Other 07-30-2022 09:45-0400 Body height 165.1 cm Bhumika Ball Other [facility] Other 07-30-2022 09:45-0400 Body mass index (BMI) [Ratio] 33.81 kg/m2 Bhumika Ball Other [facility] Other 07-30-2022 09:45-0400 Body weight 92.17 kg Bhumika Ball Other [facility] Other 07-30-2022 09:45-0400 Diastolic blood pressure 86 mm[Hg] Bhumika Ball Other [facility] Other 07-30-2022 09:45-0400 Respiratory rate 20 /min Bhumika Ball Other [facility] Other 07-30-2022 09:45-0400 Systolic blood pressure 118 mm[Hg] Bhumika Ball Other [facility] Other 07-30-2022 08:45-0400 Body height 165.1 cm Bhumika Ball Other [facility] Other 07-30-2022 08:45-0400 Body mass index (BMI) [Ratio] 33.81 kg/m2 Bhumika Ball Other [facility] Other 07-30-2022 08:45-0400 Body weight 92.17 kg Bhumika Ball Other [facility] Other 07-30-2022 08:45-0400 Diastolic blood pressure 86 mm[Hg] Bhumika Ball Other [facility] Other 07-30-2022 08:45-0400 Respiratory rate 20 /min Bhumika Ball Other [facility] Other 07-30-2022 08:45-0400 Systolic blood pressure 118 mm[Hg] Bhumika Ball Other [facility] Other 04-30-2022 11:30-0500 Body height 165.1 cm Bhumika Ball Other [facility] Other 04-30-2022 11:30-0500 Body mass index (BMI) [Ratio] 32.28 kg/m2 Bhumika Ball Other [facility] Other 04-30-2022 11:30-0500 Body weight 88 kg Bhumika Ball Other [facility] Other 04-30-2022 11:30-0500 Diastolic blood pressure 82 mm[Hg] Bhumika Ball Other [facility] Other 04-30-2022 11:30-0500 Respiratory rate 20 /min Bhumika Ball Other [facility] Other 04-30-2022 11:30-0500 SaO2% (BldA) [Mass fraction] 94 % Bhumika Ball Other [facility] Other 04-30-2022 11:30-0500 Systolic blood pressure 126 mm[Hg] Bhumika Ball Other [facility] Other 08-21-2021 12:19-0400 Body height 162.6 cm Silviano Haro MD [facility] [employer] 08-21-2021 08:01-0400 Body temperature 97.7 [degF] Silviano Haro MD [facility] [employer] 08-21-2021 08:01-0400 Diastolic blood pressure 82 mm[Hg] Silviano Haro MD [facility] [employer] 08-21-2021 08:01-0400 Heart rate 95 /min Silviano Haro MD [facility] [employer] 08-21-2021 08:01-0400 Respiratory rate 29 /min Silviano Haro MD [facility] [employer] 08-21-2021 08:01-0400 SaO2% (BldA) [Mass fraction] 92 % Silviano Haro MD [facility] [employer] 08-21-2021 08:01-0400 Systolic blood pressure 151 mm[Hg] Silviano Haro MD [facility] [employer] 08-19-2021 05:48-0400 Body mass index (BMI) [Ratio] 40.3 kg/m2 Silviano Haro MD [facility] [employer] 08-19-2021 05:48-0400 Body weight 106.5 kg Silviano Haro MD [facility] 08-14-2021 15:30-0400 Diastolic blood pressure 92 mm[Hg] Dylan Mcdowell MD Work Phone: [facility] 08-14-2021 15:30-0400 Heart rate 126 /min Dylan Mcdowell MD Work Phone: [facility] 08-14-2021 15:30-0400 Respiratory rate 17 /min Dylan Mcdowell MD Work Phone: [facility] 08-14-2021 15:30-0400 SaO2% (BldA) [Mass fraction] 94 % Dylan Mcdowell MD Work Phone: [facility] 08-14-2021 15:30-0400 Systolic blood pressure 123 mm[Hg] Dylan Mcdowell MD Work Phone: [facility] 08-14-2021 13:28-0400 Body temperature 100.9 [degF] Dylan Mcdowell MD Work Phone: [facility] 08-14-2021 07:17-0400 Body height 160 cm Dylan Mcdowell MD Work Phone: [facility] 08-14-2021 07:17-0400 Body mass index (BMI) [Ratio] 37.73 kg/m2 Dylan Mcdowell MD Work Phone: [facility] 08-14-2021 07:17-0400 Body weight 96.62 kg Dylan Mcdowell MD Work Phone: [facility] Encounters Encounter Date Encounter Type Care Provider Facility Start: 03-12-2023 End: 03-12-2023 ambulatory Bhumika Stacy Other [facility] Other Start: 03-12-2023 Sbsq nursing facil care/day new problem 25 min Bhumika Stacy [facility] Start: 02-19-2023 End: 02-19-2023 ambulatory Bhumika Stacy Other [facility] Other Start: 02-19-2023 Sbsq nursing facil care/day new problem 25 min Bhumika Stacy [facility] Start: 02-16-2023 End: 02-16-2023 ambulatory Bhumika Stacy Other [facility] Other Start: 02-16-2023 Telephone encounter Bhumika Ball [facility] Start: 02-04-2023 End: 02-04-2023 ambulatory Bhumika Godfrey Other [facility] Other Start: 02-04-2023 Telephone encounter Bhumika Ball [facility] Start: 01-28-2023 End: 01-28-2023 ambulatory Bhumika Godfrey Other [facility] Other Start: 01-28-2023 Telephone encounter Bhumika Ball [facility] Start: 01-23-2023 End: 01-23-2023 ambulatory Bhumika Godfrey Other [facility] Other Start: 01-23-2023 Telephone encounter Bhumika Ball [facility] Start: 01-15-2023 End: 01-15-2023 ambulatory Bhumika Ball Other [facility] Other Start: 01-15-2023 Telephone encounter Bhumika Ball [facility] Start: 01-12-2023 End: 01-12-2023 ambulatory Bhumika Ball Other [facility] Other Start: 01-12-2023 Telephone encounter Bhumika Ball [facility] Start: 01-11-2023 End: 01-11-2023 ambulatory Bhumika Ball Other [facility] Other Start: 01-11-2023 Telephone encounter Bhumika Ball [facility] Start: 01-06-2023 End: 01-06-2023 ambulatory Bhumika Ball Other [facility] Other Start: 01-06-2023 Telephone encounter Bhumika LACKEY [facility] Start: 01-02-2023 End: 01-02-2023 ambulatory Bhumika Stacy Other [facility] Other Start: 01-02-2023 Telephone encounter Bhumika LACKEY [facility] Start: 01-01-2023 End: 01-01-2023 ambulatory Bhumika Stacy Other [facility] Other Start: 01-01-2023 Initial nursing faci lity care/day 35 minutes Bhumika Stacy [facility] Start: 12-30-2022 End: 12-30-2022 ambulatory Moises Garcia Other [facility] Other Start: 12-30-2022 Office outpatient vi sit 25 minutes Moises Garcia [facility] Start: 12-10-2022 End: 12-10-2022 ambulatory Moises Garcia Other [facility] Other Start: 12-10-2022 Telephone encounter Moises Garcia [facility] Start: 11-25-2022 End: 11-26-2022 ambulatory BHUMIKA STACY [facility] Start: 11-25-2022 End: 11-26-2022 ambulatory HECTOR WADE MADISYN [facility] Start: 11-18-2022 End: 11-19-2022 ambulatory HECTOR LUIS ANGEL [facility] Start: 11-14-2022 End: 11-14-2022 ambulatory Moises Garcia Facility:[facility] Start: 11-14-2022 End: 11-14-2022 ambulatory DO Bhumika Stayc Work Phone: [facility] Work Phone: Start: 11-14-2022 End: 11-14-2022 Patient encounter procedure DO Bhumika Stacy Work Phone: [facility] [place] Work Phone: Start: 10-30-2022 ambulatory Bhumika Stacy DO Facility:[facility] Start: 10-27-2022 End: 10-28-2022 Emergency department patient visit CHARANJIT HU [facility] Start: 10-27-2022 End: 10-27-2022 Emergency department patient visit Charanjit Hu MD Work Phone: [facility] ED Comment on above: Other chronic pain ( Primary Dx); Osteoarthritis of spine, unspecified spinal osteoarthritis complication status, unspecified spinal region Start: 10-13-2022 End: 10-17-2022 Evaluation and management of inpatient NAMRATA KARLI Facility:[facility] Start: 10-13-2022 End: 10-17-2022 Evaluation and management of inpatient Flash Farmer MD Work Phone: [id number] Comment on above: Extremity numbness Start: 10-13-2022 End: 10-13-2022 Emergency department patient visit KOKO J ROBIN [facility] Start: 10-13-2022 End: 10-13-2022 [facility] Start: 10-06-2022 End: 10-07-2022 [facility] Start: 10-03-2022 End: 10-03-2022 Subsequent hospital visit by physician Bhumika Stacy DO Work Phone: [facility] Start: 10-03-2022 End: 10-04-2022 ambulatory [employer] [facility] Other Start: 10-03-2022 Postop follow up vis it related to original px Moises Garcia [facility] Start: 10-01-2022 End: 10-02-2022 ambulatory MARY ANN ARELI [facility] Start: 10-01-2022 End: 10-01-2022 Subsequent hospital visit by physician Bhumika Stacy DO Work Phone: [facility] Start: 09-29-2022 End: 09-30-2022 [facility] Start: 09-17-2022 End: 09-26-2022 Evaluation and management of inpatient Tom Hill Facility:[facility] Start: 09-17-2022 End: 09-26-2022 Evaluation and management of inpatient DO Bhumika Stacy Work Phone: [facility] Work Phone: Start: 09-15-2022 End: 09-15-2022 ambulatory Bhumika Stacy Other [facility] Other Start: 09-15-2022 Telephone encounter Bhumika LACKEY [facility] Start: 09-12-[address] Bhumika Stacy Facility:[facility] Start: 09-11-[address] Bhumika Stacy Facility:[facility] Start: 09-10-2022 End: 09-17-2022 Evaluation and management of inpatient Arnaud Max Facility:[facility] Start: 09-10-2022 End: 09-17-2022 Evaluation and management of inpatient DO Bhumika Stacy Work Phone: [facility] Work Phone: Start: 09-10-2022 End: 09-10-2022 ambulatory Bhumika Stacy Other [facility] Other Start: 09-10-2022 Telephone encounter [facility] Start: 09-09-2022 End: 09-09-2022 ambulatory Bhumika Stacy Other [facility] Other Start: 09-09-2022 Telephone encounter [facility]ika [facility] Start: 09-06-2022 End: 09-13-2022 ambulatory UNKNOWN PROVIDER Facility:[facility] Start: 09-05-2022 End: 09-05-2022 ambulatory [facility] Treat [facility] Transport Start: 09-05-2022 End: 09-05-2022 [facility] Comment on above: Arrived Start: 08-26-2022 End: 08-26-2022 ambulatory Bhumika Stacy Other [facility] Other Start: 08-26-2022 Office outpatient vi sit 25 minutes Bhumika Ball [facility] Start: 08-25-2022 End: 08-25-2022 ambulatory Bhumika Godfrey Other [facility] Other Start: 08-25-2022 Telephone encounter Bhumika Ball [facility] Start: 08-22-2022 End: 08-22-2022 ambulatory Bhumika Stacy Other [facility] Other Start: 08-22-2022 Telephone encounter Bhumika Ball [facility] Start: 08-07-2022 End: 08-08-2022 ambulatory Boni Pairs DO Facility:[facility] Start: 07-30-2022 End: 07-30-2022 ambulatory Bhumika Stacy Other [facility] Other Start: 07-30-2022 Office outpatient vi sit 25 minutes Bhumika Ball [facility] Start: 07-10-2022 End: 07-10-2022 ambulatory Bhumika Stacy Other [facility] Other Start: 07-10-2022 Telephone encounter Bhumika Stacy ZIYAD [employer] Start: 06-18-2022 End: 06-19-2022 ambulatory Lexie Hassan PHYSICAL DAMAGE APPRAISER-VOCATIONAL ADVISER Facility:[facility] Start: 05-14-2022 End: 05-14-2022 ambulatory Bhumika Stacy Other [facility] Other Start: 05-14-2022 Telephone encounter Bhumika Ball [facility] Start: 05-13-2022 End: 05-13-2022 ambulatory Bhumika Godfrey Other [facility] Other Start: 05-13-2022 Telephone encounter Bhumika Ball [facility] Start: 05-10-2022 End: 05-11-[address] BHUMIKA STACY Facility: Start: 05-08-2022 End: 05-09-2022 ambulatory BHUMIKA STACY 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 Start: 03-12-2022 Refill Tom Welch MD Work Phone: [facility] Comment on above: Refill Start: 01-21-2022 Refill Tom Welch MD Work Phone: [facility] Comment on above: Refill Start: 01-17-2022 Adult health examination Moises Garcia Other [employer] Other Start: 11-10-2021 End: 11-12-2021 Evaluation and management of inpatient DR BHUMIKA STACY Facility:[facility] Start: 11-05-2021 End: 11-05-[address] BHUMIKA STACY Facility:[facility] Start: 10-11-2021 Refill Tom Welch MD Work Phone: [facility] Comment on above: Refill Start: 09-30-2021 ambulatory Jhoan Zarate MD Facility:[facility] Start: 09-26-2021 Refill Tom Welch MD Work Phone: [facility] Comment on above: Refill Start: 09-20-2021 End: 09-20-2021 ambulatory UNKNOWN PROVIDER Facility[facility] Start: 09-09-2021 End: 09-09-2021 Subsequent hospital visit by physician Bhumika Stacy DO Work Phone: [facility] Start: 09-02-2021 End: 09-02-2021 Subsequent hospital visit by physician Bhumika Stacy DO Work Phone: [facility] Start: 08-26-2021 End: 08-26-2021 Subsequent hospital visit by physician Bhumika Stacy DO Work Phone: [facility] Start: 08-14-2021 End: 08-21-2021 Evaluation and management of inpatient BHUMIKA STACY [facility] Start: 08-14-2021 End: 08-21-2021 Evaluation and management of inpatient Silviano Haro MD [facility] CAR 2 Comment on above: Pyogenic arthritis o f right shoulder region, due to unspecified organism (HCC) (Primary Dx); Acute cystitis without hematuria; MSSA bacteremia; Staphylococcal arthritis of right shoulder (HCC) Start: 08-14-2021 End: 08-14-2021 Emergency department patient visit Dylan Mcdowell MD Work Phone: [facility] ED Comment on above: Pyogenic arthritis o f right shoulder region, due to unspecified organism (HCC) (Primary Dx); SIRS (systemic inflammatory response syndrome) (HCC); Septic shock (HCC) Start: 07-25-2021 Refill Tom Welch MD Work Phone: [facility] Comment on above: Refill Start: 07-20-2021 End: 07-20-[address] BHUMIKA STACY Facility:[facility] Start: 07-18-2021 End: 07-19-[address] BHUMIKA STACY Facility:[facility] Start: 07-12-2021 End: 07-13-2021 ambulatory DOCTOR MISC Facility:[facility] Start: 05-25-2021 ambulatory DOCTOR MISC Facility:[facility] 1 Procedures Date Procedure Procedure Detail Performing Clinician Start: 11-14-2022 X-ray of cervical spine DO Bhumika Stacy Work Phone: Start: 10-27-2022 Ct cervical spine w/ o contrast material Charanjit Hu MD Work Phone: Start: 10-27-2022 Ct head/brain w/o co ntrast material Charanjit Hu MD Work Phone: Start: 10-27-2022 Comprehensive metabo lic panel Charanjit Hu MD Work Phone: Start: 10-17-2022 ABORH TYPE RECONFIRMATION Rachellmarjorie Tong Jeremias SHAIKH Start: 10-16-2022 Radex spine cervical 2 or 3 views Namrata Powell DO Work Phone: Start: 10-14-2022 End: 10-14-2022 Antibody screen Kelsie Wills MD Work Phone: Comment on above: Performed By: #### X M #### [facility] ([facility]) [address] [place] [address] Start: 10-14-2022 Blood typing serologic abo Vonnie Alfonso MD Work Phone: Start: 10-14-2022 CBC AND ELECTRONIC DIFF Monalisa Suarez MD Work Phone: Start: 10-14-2022 Complete blood count with white cell differential, automated Monalisa Suarez MD Work Phone: Start: 10-14-2022 EXTRA MICRO Vonnie Alfonso MD Work Phone: Start: 10-14-2022 GOLD TOP TUBE Flash Farmer MD Work Phone: Start: 10-14-2022 Iadna s aureus ampli fied probe tq Vonnie Alfonso MD Work Phone: Start: 10-14-2022 LAVENDER TOP TUBE Sheree Farmer MD Work Phone: Start: 10-14-2022 MINT GREEN TOP TUBE Tri ami Farmer MD Work Phone: Start: 10-14-2022 Prothrombin time Aguilar Alfonso MD Work Phone: Start: 10-14-2022 RAINBOW DRAW Flash Farmer MD Work Phone: Start: 10-14-2022 URINALYSIS REFLEX TO CULTURE Vonnie Alfonso MD Work Phone: Start: 10-14-2022 Ct cervical spine w/ o contrast material Vonnie Alfonso MD Work Phone: Start: 10-14-2022 Radex spine cervical 4 or 5 views Vonnie Alfonso MD Work Phone: Start: 10-14-2022 Radiologic exam ches t single view Vonnie Alfonso MD Work Phone: Start: 10-03-2022 Blood count complete auto&auto difrntl wbc Mary Ann Johnson PHYSICAL DAMAGE APPRAISER - VOCATIONAL ADVISER Work Phone: Start: 10-01-2022 Urnls dip stick/tabl et rgnt auto w/o microscopy Mary Annlili Johnson PHYSICAL DAMAGE APPRAISER - VOCATIONAL ADVISER Work Phone: Start: 10-01-2022 Procalcitonin (pct) David lili Areli Johnson PHYSICAL DAMAGE APPRAISER - VOCATIONAL ADVISER Work Phone: Start: 09-21-2022 X-ray of cervical spine DO Bhumika Ball Work Phone: Start: 09-15-2022 Decompression of cer vical spine DO Bhumika Ball Work Phone: Start: 09-15-2022 X-ray of cervical spine DO Bhumika Ball Work Phone: Start: 09-12-2022 Antibody screen Tom Hill Comment on above: Result Comment: PERF ORMED BY: [facility] [address] [place] [address] PATHOLOGIST VENEREAL DISEASE INVESTIGATOR PETER RAYO M.D. Start: 09-11-2022 Plain chest X-ray DO Be njamin Ball Work Phone: Start: 09-11-2022 MRI of cervical spin e without contrast DO Bhumika Ball Work Phone: Start: 05-08-2022 Blood count complete auto&auto difrntl wbc Eulogio Manzo MD Work Phone: Start: 05-08-2022 C-reactive protein Eulogio Manzo MD Work Phone: Start: 09-09-2021 Comprehensive metabo lic panel Hector Mars MD Work Phone: Start: 09-02-2021 Comprehensive metabo lic panel Hector Mars MD Work Phone: Start: 08-26-2021 Comprehensive metabo lic panel Hector Mars MD Work Phone: Start: 08-21-2021 Insj prph ctr vad w/ subq port age 5 yr/> Tita Hilariowilmer PHYSICAL DAMAGE APPRAISER - VOCATIONAL ADVISER Work Phone: Start: 08-21-2021 Nursing procedure Bud bhavana Lucas Juan PHYSICAL DAMAGE APPRAISER - VOCATIONAL ADVISER Work Phone: Start: 08-21-2021 Assay of magnesium Dyla n Raj DO Work Phone: Start: 08-21-2021 BASIC METABOLIC PANE L W/ REFLEX TO MG FOR LOW K Baltazar Anthony DO Work Phone: Start: 08-20-2021 Assay of magnesium Dyla n Anthony DO Work Phone: Start: 08-20-2021 BASIC METABOLIC PANE L W/ REFLEX TO MG FOR LOW K Baltazar Anthony DO Work Phone: Start: 08-20-2021 C-reactive protein Van F Kraft DO Work Phone: Start: 08-19-2021 Assay of magnesium Dyla n Anthony DO Work Phone: Start: 08-19-2021 BASIC METABOLIC PANE L W/ REFLEX TO MG FOR LOW K Baltazar Anthony DO Work Phone: Start: 08-18-2021 Assay of magnesium Dyla n Anthony DO Work Phone: Start: 08-18-2021 BASIC METABOLIC PANE L W/ REFLEX TO MG FOR LOW K Baltazar Anthony DO Work Phone: Start: 08-18-2021 C-reactive protein Van F Kraft DO Work Phone: Start: 08-17-2021 Cul prsmptv pthgnc o rganism scrn w/colony estimj Florence Martell MD Work Phone: Start: 08-17-2021 Puncture aspiration abscess hematoma bulla/cyst Baltazar Anthony DO Work Phone: Start: 08-17-2021 BASIC METABOLIC PANE L W/ REFLEX TO MG FOR LOW K Baltazar Anthony DO Work Phone: Start: 08-17-2021 Blood count complete auto&auto difrntl wbc Baltazar Anthony DO Work Phone: Start: 08-16-2021 Radex ankle complete minimum 3 views Baltazar Anthony DO Work Phone: Start: 08-16-2021 Cell count miscellan eous body fluids Gerardo Munroe MD Work Phone: Start: 08-16-2021 End: 08-16-2021 Culture fngi mold/yeast prsmptv oth xcpt blood Gerardo Munroe MD Work Phone: Start: 08-16-2021 End: 08-16-2021 ANKLE HARDWARE REMOVAL Gerardo wagner MD Work Phone: Start: 08-16-2021 End: 08-16-2021 Arthroscopy, shoulder Gerardo ragsdale MD Work Phone: Start: 08-16-2021 CULTURE, BLOOD 1 Rory Aydin DO Work Phone: Start: 08-16-2021 Echo tthrc r-t 2d w/wom-mode compl spec&colr d Rory Perrin DO Work Phone: Start: 08-16-2021 Culture bacterial quanttative colony count urine Tita Martinez PHYSICAL DAMAGE APPRAISER - VOCATIONAL ADVISER Work Phone: Start: 08-16-2021 Drug screen quantita tive vancomycin Eulogio Manzo MD Work Phone: Start: 08-16-2021 Assay of magnesium Maranda Pathak MD Work Phone: Start: 08-16-2021 BASIC METABOLIC PANE L W/ REFLEX TO MG FOR LOW K Baltazar Anthony DO Work Phone: Start: 08-16-2021 C-reactive protein Maranda Pathak MD Work Phone: Start: 08-15-2021 Cortisol total Golden Orville suarez MD Work Phone: Start: 08-15-2021 Assay of lactate Eriberto Marcial DO Work Phone: Start: 08-15-2021 Dup-scan xtr veins unilateral/limited study Eriberto Marcial DO Work Phone: Start: 08-15-2021 Radex ankle complete minimum 3 views Eriberto Marcial DO Work Phone: Start: 08-15-2021 End: 08-15-2021 Smr prim src gram/giemsa stain bct fungi/cell Jake Moncada MD Work Phone: Start: 08-15-2021 Cell count misc body fluids w/differential count Jake Moncada MD Work Phone: Start: 08-15-2021 Diagnostic lumbar sp inal puncture w/fluor or ct Eriberto Marcial DO Work Phone: Start: 08-15-2021 Arthrocentesis aspir &/inj major jt/bursa w/us Jake Moncada MD Work Phone: Start: 08-15-2021 End: 08-15-2021 Ct cervical spine w/o contrast material Eriberto Marcial DO Work Phone: Start: 08-15-2021 Ct head/brain w/o co ntrast material Eriberto Marcial DO Work Phone: Start: 08-15-2021 Creatine kinase total M vance Pathak MD Work Phone: Start: 08-15-2021 BASIC METABOLIC PANE L W/ REFLEX TO MG FOR LOW K Baltazar Anthony DO Work Phone: Start: 08-15-2021 Creatine kinase total M vance Pathak MD Work Phone: Start: 08-15-2021 LACTATE, SEPSIS Isaias Pathak MD Work Phone: Start: 08-14-2021 Creatine kinase total M vance Pathak MD Work Phone: Start: 08-14-2021 LACTATE, SEPSIS Isaias Pathak MD Work Phone: Start: 08-14-2021 Iadna s aureus methi cillin resist amp probe tq Eulogio Manzo MD Work Phone: Start: 08-14-2021 End: 08-14-2021 Ct upper extremity w/contrast material Jake Moncada MD Work Phone: Start: 08-14-2021 Radex shoulder compl ete minimum 2 views Jake Moncada MD Work Phone: Start: 08-14-2021 COVID-19, RAPID Jamilah Joshi DO Work Phone: Start: 08-14-2021 End: 08-14-2021 Assay of lactate Tatianna Adi DO Work Phone: Start: 08-14-2021 C-reactive protein Cour guero Adi DO Work Phone: Start: 08-14-2021 IMMATURE PLATELET FRACTION Tatianna Adi DO Work Phone: Start: 08-14-2021 SPECIMEN REJECTION Cour guero Adi DO Work Phone: Start: 08-14-2021 Ct angiography chest w/contrast/noncontrast Dylan Mcdowell MD Work Phone: Start: 08-14-2021 C-reactive protein Cipr lorrie Mcdowell MD Work Phone: Start: 08-14-2021 Comprehensive metabo lic panel Dylan Mcdowell MD Work Phone: Start: 08-14-2021 Ecg routine ecg w/le ast 12 lds w/i&r Dylan Mcdowell MD Work Phone: Start: 08-14-2021 Urinalysis microscopic only Dylan Mcdowell MD Work Phone: Start: 08-14-2021 Urnls dip stick/tabl et rgnt auto w/o microscopy Dylan Mcdowell MD Work Phone: Depression screening Moises Br aun Other Screening for malign ant neoplasm of breast Moises Garcia Other Plan of Treatment Date Care Activity Detail Author Start: 06-23-2025 Cholesterol [Mass/volume] in Serum or Plasma Cholesterol [facility] Start: 11-06-2022 End: 11-06-2022 Patient encounter procedure 11/06/2022 Office Visit Infectious Diseases Eulogio Manzo MD [address] [place] [address] [facility] Start: 10-21-2022 Influenza vaccination Flu vaccine (# 1) [facility] Start: 10-14-2022 End: 10-14-2022 ambulatory [facility] Start: 09-26-2022 [facility] Start: 09-21-2022 Arrangement of care procedure [facility] Start: 09-18-2022 Consultation [facility] Start: 09-17-2022 [facility] Start: 09-17-2022 Hospital admission [facility] Start: 09-17-2022 Referral to clinical violin mechanic [facility] Start: 09-17-2022 [facility] Start: 09-17-2022 [facility] Start: 09-15-2022 Hospital admission [facility] Start: 09-11-2022 Consultation [facility] Start: 09-10-2022 Consultation [facility] Start: 09-10-2022 Hospital admission [facility] Start: 09-10-2022 Fusion of Cervical Vertebral Joint with Nonautologous Tissue Substitute, Posterior Approach, Posterior Column, Percutaneous Approach Fusion of Cervical Vertebral Joint with Nonautologous Tissue Substitute, Posterior Approach, Posterior Column, Percutaneous Approach [facility] Start: 09-10-2022 Introduction of Recombinant Bone Morphogenetic Protein into Joints, Open Approach Introduction of Recombinant Bone Morphogenetic Protein into Joints, Open Approach [facility] Start: 09-10-2022 Reposition Cervical Vertebral Joint, External Approach Reposition Cervical Vertebral Joint, External Approach [facility] Start: 05-23-2022 End: 05-23-2022 Patient encounter procedure 05/23/2022 Office Visit Rheumatology Tom Welch MD [address] [place] [phone] [facility] Start: 05-07-2022 Annual Wellness Visi t (AWV) Annual Wellness Visit (AWV) [facility] Start: 02-12-2022 End: 02-12-2022 Patient encounter procedure 02/12/2022 Office Visit Rheumatology Tom Welch MD [address] [place] [address] [facility] Start: 12-21-2021 Influenza vaccination Influenza Vacc ine (#1) [facility] Start: 11-21-2021 Influenza vaccination Flu vacc ine (Season Ended) [facility] Start: 10-21-2021 [facility] Start: 10-10-2021 End: 10-10-2021 Patient encounter procedure 10/10/2021 Office Visit Infectious Diseases Eulogio Manzo MD [address] [place] [address] [facility] Start: 09-20-2021 Welcome to Medicare Visit (G0402) Welcome to Medicare Visit (G0402) [facility] Start: 09-03-2021 End: 09-03-2021 Patient encounter procedure 09/03/2021 Office Visit Infectious Diseases Eulogio Mnazo MD [address] [place] [address] [facility] Start: 07-25-2019 Pneumococcal 65+ yea rs Vaccine (1 - PCV) Pneumococcal 65+ years Vaccine (1 - PCV) [facility] Start: 07-25-2019 Screening for osteoporosis Bone Densitometry [facility] Start: 2009 Screening for osteoporosis DEXA (modify frequency per FRAX score) [facility] Start: 2004 Measurement of occul t blood in single stool specimen FIT [facility] Start: 2004 Screening for malign ant neoplasm of breast [facility] Start: 2004 Screening for malign ant neoplasm of colon CRC Screening [facility] Start: 2004 Shingles vaccine (1 of 2) Shingles vaccine (1 of 2) [facility] Start: 07-25-1999 Cholesterol [Mass/volume] in Serum or Plasma Cholesterol [facility] Start: 07-25-1999 Screening for malign ant neoplasm of colon [facility] Start: 1994 Lipid panel Lipids [facility] [employer] Start: 1994 Screening for malign ant neoplasm of breast Mammography [facility] Start: 1989 Diabetes screen Diabetes screen [facility] Start: 1973 DTaP/Tdap/Td vaccine (1 - Tdap) DTaP/Tdap/Td vaccine (1 - Tdap) [facility] Start: 1973 Shingles (RZV) Vacci ne (1 of 2) Shingles (RZV) Vaccine (1 of 2) [facility] Start: 1972 Hepatitis C screening Hepatitis C sc reen [facility] Start: 1972 Tetanus + diphtheria + acellular pertussis vaccine (product) Tdap [employer] [facility] Start: 1966 COVID-19 Vaccine (1) COVID-19 Vaccin e (1) [facility] Start: 1966 Depression Screen Depression Screen [facility] [employer] [facility] Start: 1960 Pneumococcal vaccination Pneumococcal Vaccine(s) (65+ yrs) (1 - PCV) [facility] Start: 07-25-1959 COVID-19 Vaccine (#1) COVID-19 Vacci ne (#1) [facility] Start: 07-25-1959 COVID-19 Vaccine (1) COVID-19 Vaccin e (1) [facility] Start: 01-24-1955 COVID-19 Vaccine (#1) COVID-19 Vacci ne (#1) [facility] Start: 1954 Annual Wellness Visi t (AWV) Annual Wellness Visit (AWV) [facility] Start: 1954 Screening for malign ant neoplasm of colon Colonoscopy [facility] End: 10-13-2022 Bacteria identified in Blood by Culture [facility] Comment on above: One Time for 1 Occur rences starting 10/13/2022 until 10/13/2022 Basic Metabolic Pane l w/ Reflex to MG Basic Metabolic Panel w/ Reflex to MG Lab Routine Daily until discontinued starting 08/15/2021, 7 completed [employer] Phone: Comment on above: Daily until disconti nued starting 08/15/2021, 7 completed C-reactive protein C-Reactive Pr otein Lab Add-On Q48H until discontinued starting 08/18/2021, 2 completed [employer] Phone: Comment on above: Q48H until discontin ued starting 08/18/2021, 2 completed CBC W Auto Different ial panel - Blood CBC with Auto Differential Lab Routine Daily until discontinued starting 08/15/2021, 7 completed [employer] Phone: Comment on above: Daily until disconti nued starting 08/15/2021, 7 completed CTA CHEST ABDOMEN PELVIS W CONTRAST CTA CHEST ABDOMEN PELVIS W CONTRAST Imaging STAT 08/14/2021 10:22 AM EDT [employer] Phone: Culture, Anaerobic a nd Aerobic Culture, Anaerobic and Aerobic Microbiology Routine 08/17/2021 11:17 AM EDT [employer] Phone: End: 08-14-2021 Culture, Blood 1 [employer] Phone: Comment on above: One Time for 1 Occur rences starting 08/14/2021 until 08/14/2021 End: 10-01-2022 Culture, Blood 1 [facility] Comment on above: Once for 1 Occurrenc es starting 10/01/2022 until 10/01/2022 Culture, Fungus Culture, Fungus Microbiology Routine Pyogenic arthritis of right shoulder region, due to unspecified organism (HCC) 08/16/2021 9:03 PM EDT [facility] Work Phone: End: 10-01-2022 Culture, Urine [facility] Work Phone: Comment on above: Once for 1 Occurrenc es starting 10/01/2022 until 10/01/2022 Oxygen therapy [[facility] Data Set] Initiate Oxygen Therapy Protocol Respiratory Care Routine As Needed until discontinued starting 08/14/2021 [facility] Work Phone: Comment on above: As Needed until disc ontinued starting 08/14/2021 Patient referral [facility] Work Phone: Platelets [#/volume] in Blood PLATELET COUNT Lab Routine Every 3 days in the AM Lab until discontinued starting 10/15/2022 [facility] Comment on above: Every 3 days in the AM Lab until discontinued starting 10/15/2022 End: 08-14-2021 PREVIOUS SPECIMEN [facility] Comment on above: Once for 1 Occurrenc es starting 08/14/2021 until 08/14/2021 End: 10-13-2022 SEDIMENTATION RATE, AUTOMATED SEDIMENTATION RATE, AUTOMATED Lab Urgent One Time for 1 Occurrences starting 10/13/2022 until 10/13/2022 [facility] Work Phone: Comment on above: One Time for 1 Occur rences starting 10/13/2022 until 10/13/2022 Standard ECG ECG ECG STAT Needed until discontinued starting 10/14/2022 [facility] Comment on above: Needed until disc ontinued starting 10/14/2022 Immunizations Immunization Date Immunization Notes Care Provider Jorge guzman 10-17-2021 Prevnar 20 Moises Garcia Other [employer] Other pneumococcal Conjuga te, unspecified formulation; Translations: [Need for prophylactic vaccination against Streptococcus pneumoniae (pneumococcus)] Moises Garcia Other [employer] Other Payers Date Payer Category Payer Unknown [id number] 2022 Self-pay 2021 Medicare [id number] 2021 Medicaid [id number] 1. [id number] 2020 Unknown [id number] [id number] 2020 Unknown OOC 2020 Unknown 1 1959 Medicare [id number] 1959 Self-pay [id number] 1954 Unknown [id number] 2.16. 840.1.065523.3.579.2.175 1954 Unknown [id number] 2.16. 840.1.988958.3.579.2.175 1954 Unknown [id number] 2.16.84 0.1.572706.3.579.2.593 1954 Unknown [id number] 2.16.84 0.1.920901.3.579.2.593 1954 Unknown [id number] 2.16.84 0.1.639962.3.579.2.593 1954 Unknown [id number] 2.16.84 0.1.541628.3.579.2.593 1954 Unknown [id number] 2.16.84 0.1.685648.3.579.2.593 1954 Unknown [id number] 2.16.84 0.1.883871.3.579.2.593 1954 Unknown [id number] 2.16.84 0.1.786272.3.579.2.593 1954 Unknown [id number] 2.16.84 0.1.828767.3.579.2.593 1954 Unknown [id number] 2.16. 840.1.951930.3.579.2.732 1954 Unknown [id number] 2.16. 840.1.679799.3.579.2.732 1954 Unknown [id number] 2.16. 840.1.875028.3.579.2.356 1954 Unknown [id number] 2.16. 840.1.751768.3.579.2.196 1954 Unknown [id number] 2.16. 840.1.498120.3.579.2.196 1954 Unknown [id number] 2.16. 840.1.669093.3.579.2.196 1954 Unknown [id number] 2.16. 840.1.097582.3.579.2.196 1954 Unknown [id number] 2.16. 840.1.875467.3.579.2.594 1954 Unknown [id number] 2.16.8 40.1.625389.3.579.2.173 1954 Unknown [id number] 2.16.8 40.1.552394.3.579.2.173 1954 Unknown [id number] 2.16.8 40.1.292980.3.579.2.173 1954 Unknown [id number] 2.16.8 40.1.412190.3.579.2.173 1954 Unknown [id number] 2.16.8 40.1.593918.3.579.2.173 1954 Unknown [id number] 2.16.8 40.1.485227.3.579.2.173 1954 Unknown [id number] 2.16.8 40.1.433273.3.579.2.173 1954 Unknown [id number] 2.16.8 40.1.514017.3.579.2.173 1954 Unknown [id number] 2.16.8 40.1.078275.3.579.2.173 1954 Unknown [id number] 2.16.8 40.1.443000.3.579.2.173 Unknown [id number] 2.16.8 40.1.694315.3.579.2.531 Unknown [id number] 2.16.8 40.1.724750.3.579.2.531 Unknown [id number] 2.16.8 40.1.353518.3.579.2.531 Social History Date Type Detail Facility Tobacco smoking stat [facility] Tobacco smoking consumption unknown [facility] Start: 1955 Sex Assigned At Female [facility] Start: 1955 Sex Assigned At Not on file [employer] Phone: Start: 08-04-2021 End: 10-13-2022 Exposure to SARS-CoV-2 (event) Not sure [employer] Phone: Start: 09-03-2021 End: 09-18-2022 Tobacco smoking status KYIS Ex-smoker [facility] End: 09-03-2013 History of tobacco use Current smoker [employer] Phone: Start: 09-03-2021 End: 02-06-2022 Cigarettes smoked current (pack per day) - Reported 1 [employer] Phone: Start: 09-03-2021 End: 02-06-2022 Tobacco use and exposure Smokeless tobacco non-user [employer] Phone: End: 09-03-2013 History of tobacco use Cigarette Smoker [employer] Phone: Start: 10-13-2022 Sex Assigned At [facility] [employer] [facility] Other Start: 09-25-2020 Gender identity Identifies as female gender (finding) [facility] Start: 10-13-2022 Alcohol intake Ex-drinker (finding) [facility] Medical Equipment Procedure Code Equipment Code Equipment Origin al Text Equipment Identifier Dates Decompression, spine, cervical, posterior approach CANCELLOUS 7.5 CRUSHED FDA Start: 09-15-2022 Decompression, spine, cervical, posterior approach Spinal fusion graft kit [id number] FDA Start: 09-15-2022 Decompression, spine, cervical, posterior approach Intervertebral-body internal spinal fixation system [id number] FDA Start: 09-15-2022 Decompression, spine, cervical, posterior approach Internal spinal fixation system cable, sterile ()[id number] FDA Start: 09-15-2022 Decompression, spine, cervical, posterior approach CANCELLOUS 7.5 CRUSHED FDA Start: 09-15-2022 Goals Date Patient Goal Desired Activity /State Functional Status Date Assessment Result Facility 09-26-2022 Functional status Patient is Pro gressing Toward Baseline [facility] Work Phone: 09-17-2022 Functional status Patient at Baseline [facility] Work Phone: 09-10-2022 Functional status Patient Not at Baseline [facility] Work Phone: Mental Status Date Assessment Result Facility 09-26-2022 Cognitive function Cognitive Sta tus Patient at [facility] Work Phone: 09-17-2022 Cognitive function Cognitive Sta tus Patient at [facility] Work Phone: 09-10-2022 Cognitive function Cognitive Sta s Patient at [facility] Work Phone: Clinical Notes 07-14-2021 to 03-12-2023 Note Date & Type Note Facility 03-12-2023 Evaluation note Encounter Date Diagnosis Assessment Notes Feb, Primary hypertension (ICD-10 - I10) This patient is instructed to consume a healthy, low-fat, low-salt diet. They are also encouraged to continue exercise to achieve/maintai n a normal BMI. Feb, Chronic bronchitis, mucopurulent (ICD-10 - J41.1) Mucolytics HHN as needed to clear secretions. 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 COntinue to be dependent on oxygen. Psat > 90% Feb, Closed odontoid fracture with routine healing, subsequent encounter (ICD-10 - S12.100D) Subsequently has not progressed w/ therapy She has constant dysesthesias in all 4 extremities referred to Neurology, who had referred to [facility] Neurosurgery Feb, Paresthesias (ICD-10 - R20.2) Secondary to cervical rx? 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 Slow wean once Rheum has initiated therapy [facility] [employer] Other [id number] Evaluation note* Encounter Date Diagnosis Assessment Notes Treatment Notes Treatment Clinical Notes Jan, Primary hypertension (ICD-10 - I10) This patient is instructed to consume a healthy, low-fat, low-salt diet. They are also encouraged to continue exercise to achieve/maintain a normal BMI. Jan, Chronic bronchitis, mucopurulent (ICD-10 - J41.1) Mucolytics as needed. Continue inhaler therapy to assist in mobiliaztion of secretions Jan, Inflammatory arthritis (ICD-10 - M19.90) Steroid dependent. Hold on further weaning Referral to Rheum to initiated DMARDs and slow wean off of steroids Jan, Hypoxemia (ICD-10 - R09.02) COPD w/ hx of COVID pneumonia Hypoxic since recovery. Continue supplemental oxygen. Jan, Primary osteoarthritis of right shoulder (ICD-10 - M19.011) ROM exercises, ice/heat and Tylenol/Tramadol. Orthopedic referral once completed Rheum assessment and weaning off steroids Jan, Closed odontoid fracture with routine healing, subsequent encounter (ICD-10 - S12.100D) Healing as expected. No f/u appt w/ Neurosurgery Jan, Paresthesias (ICD-10 - R20.2) Initiated B12 replacement. 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 Refer to Rheumatology Jan, History of septic arthritis (ICD-10 - Z87.39) No s/s recurrence. Attempt to wean steroids, which increase risk of infection [facility] Other 11-08-2023 Evaluation note* Encounter Date Diagnosis Assessment Notes Treatment Notes Treatment Clinical Notes Jan, Lumbar spondylosis (ICD-10 - M47.816) [facility] Other 10-12-2023 Evaluation note* Encounter Date Diagnosis Assessment Notes Treatment Notes Treatment Clinical Notes Dec, Primary hypertension (ICD-10 - I10) This patient is instructed to consume a healthy, low-fat, low-salt diet. They are also encouraged to continue exercise to achieve/maintain a normal BMI. Dec, Chronic bronchitis, mucopurulent (ICD-10 - J41.1) Continue cough and deep breathing exercises HHN as needed for secretion clearance Monitory respiratory status Dec, Hypoxemia (ICD-10 - R09.02) Continuous oxygen to maintain sats > 90% Dec, Primary osteoarthritis of right shoulder (ICD-10 - M19.011) Continue PT/OT ROM/stretching exercises f/u Orthopedics s/p septic arthritis Dec, 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 (ICD-10 - M05.741) Prednisone w/ significant ADR. 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 She has beep taking for months due to intolerance to DMARDs Dec, Cigarette nicotine dependence in remission (ICD-10 - F17.211) Maintain abstinence [facility] Other 10-10-2023 Evaluation note* Encounter Date Diagnosis Assessment Notes Treatment Notes Treatment Clinical Notes Dec, Closed odontoid fracture with routine healing, subsequent encounter (ICD-10 - S12.100D) I independently evaluated the fracture showing a wiring of the posterior C1-C2. There appears to be a fusion in this area with no splaying of the posterior spinous processes. With the patient's osteoporosis it sort of difficult to tell. I do not have access to an official radiology read but to me it looks okay. I told the patient that her collar is optional I would recommend a second opinion with regard to her shoulder. This is a complex patient as I have noted previously because of severe deconditioning. I would like to see the patient again in 4 months with an x-ray. Dec, Arthropathy of right shoulder (ICD-10 - M19.011) Dec, Physical deconditioning (ICD-10 - R53.81) [facility] Other 08-07-2023 Hospital Discharge instructions* Discharge Instructions* Charanjit Hu MD - 10/27/2022 4:10 PM EDT Continue current medications as prescribed. Solu-Medrol Dosepak daily as directed until complete. You do have Valium written as needed for anxiety use this as well for muscle spasms see if this may help. Follow-up with your primary care provider in 2 to 3 days for reevaluation. You must seek medical attention immediately she develop any fevers chills headache severe neck pain worsening weakness or any other acute concerns. * Attachments The following attachments cannot be sent through Care Everywhere. * Chronic Pain (Surinamese) [facility] course Narrative* Namrata Powell DO - 10/17/2022 11:27 AM EDT Hospital Medicine Discharge Summary Patient: Miriam German DOB: 1955, Date of face to face patient encounter: 10/17/2022 Admission Details Admit Date 10/13/2022 Discharge Date 10/17/2022 Inpatient Days 3 Summary of Hospitalization Dear Doctors, I recently had the opportunity to care for Miriam German during her recent hospital stay at [facility]. As you may know, Miriam German is a 67 y.o. female with a past medical history HTN and C2 fracture s/p fusion approximately 1 month ago admitted for worsening weakness and numbness in all extremites, MRI at OSH show cord swelling. Neurosurgery was consulted, recommended no acute interventions andadmission to medicine. Recommended to stop IV steroids and resume home dose of PO steroids. PT/OT evaluated pt and recommended SNF, pt was discharged to SNF in stable condition. Debility secondary to Age-related debility and Chronic Fatigue - Skilled therapy is anticipated upon discharge to Snf Facility There is no height or weight on file to calculate BMI. Upon discharge the patient's code was DNRCC-ARREST Please see the remainder of this document for relevant data from this admission as well as the patient's discharge instructions and follow-up appointments. An electronic copy of the patient's recordscan be obtained via [facility] at [email or web address] It has been my pleasure participating in this patient's care. Please contact me with any questions or concerns regarding her hospital stay. The total time of discharge was 30 minutes. Sincerely, Namrata Powell DO Division of Hospital Medicine Relevant Data from this Admission Temp: [97.7 F (36.5 C)-98.9 F (37.2 C)] 98.1 F (36.7 C) Pulse (Heart Rate): [83-94] 92 Resp Rate: [16-20] 20 BP: (137-160)/(65-75) 137/65 O2 Sat (%): [95 %-100 %] 96 % Physical Exam Gen: Alert, Awake, NAD Eyes: PERRLA, EOMI, no icterus ENT: MMM, trachea midline Resp: CTA & P, normal respiratory effort Cardio: RRR, normal S1, S2, no M/R/G. No CARROLL. GI: S/NT/ND, NABS MS: No joint effusions or erythema Skin: No jaundice or rash Neuro: grade teacher 3-7, 9-11 intact and equal. Strength grossly equal in muscle groups of the bilateral UEsand LEs. Psych: Ox3, appropriate affect and cognition No results for input(s): WBC , HGB , PLATELET , SODIUM , POTASSIUM , CO2 , ANIONGAP , BUN , CREATSERUM , MAGNESIUM , PHOSPHORUS , AST , ALT , ALKPHOS , BILITOTAL , BILIDIRECT , INR , PTT , PROCALCITONI , BNP , TROP in the last 72 hours. Patient Instructions No future appointments. Bhumika Stacy DO [address] [facility] [address] Follow up Please call to schedule an appointment with your, PCP within 7-10 days. Snf Facility [place] [address] [place] [address] Fax: [phone] Follow up [facility] [address] [address] Follow up - Please have patient follow up in spine clinic Medication List for when you go home START taking these medications oxyCODONE 5 MG TABS Take 1 tablet by mouth every 8 hours as needed for Moderate Pain or Severe Pain for up to 5 days. Commonly known as: ROXICODONE For diagnoses: Extremity numbness Pantoprazole [address] tablet DR Take 1 tablet by mouth daily. Commonly known as: PROTONIX CHANGE how you take these medications predniSONE 5 MG TABS Take 1 tablet by mouth daily for 15 days. Commonly known as: DELTASONE What changed: additional instructions Another medication with the same name was removed. Continue taking this medication, and follow the directions you see here. CONTINUE taking these medications amLODIPine 2.5 MG TABS Take 1 tablet by mouth daily. Per PCP list Take 1 tablet by mouth every day. Commonly known as: NORVASC Fexofenadine 180 MG TABS Take 1 tablet by mouth daily. Per PCP med list: Take 1 tablet by mouth everyday. Swallow whole withwater do not take with fruit juices. Commonly known as: YADIRA STOP taking these medications traMADol 50 MG TABS Commonly known as: ULTRAM [facility] Miscellaneous Notes* Plan of Care - Hanane Kothari RN - 10/17/2022 11:27 AM EDT Problem: Pain, Acute (Adult) Goal: Acceptable Pain Control/Comfort Level Description: Patient will demonstrate the desired outcomes by discharge/transition of care. Outcome: Not Met This Shift Problem: Pain, Acute (Adult) Goal: Identify Related Risk Factors and Signs and Symptoms Description: Related risk factors and signs and symptoms are identified upon initiation of Human Response Clinical Practice Guideline (CPG) Outcome: Met This Shift Flowsheets (Taken 10/15/2022 1319) Related Risk Factors (Acute Pain): disease process surgery Signs and Symptoms (Acute Pain): BADLs/IADLs reluctance/inability to perform verbalization of pain descriptors * Plan of Care - Ana Rdz RN - 10/17/2022 1:32 AM EDT Problem: Patient Care Overview Goal: Plan of Care Review Outcome: Met This Shift Problem: Patient Care Overview Goal: Individualization & Mutuality Outcome: Ongoing Goal: Discharge Needs Assessment Outcome: Ongoing Goal: Interdisciplinary Rounds/Family Conf Outcome: Ongoing Problem: Pain, Acute (Adult) Goal: Identify Related Risk Factors and Signs and Symptoms Description: Related risk factors and signs and symptoms are identified upon initiation of Human Response Clinical Practice Guideline (CPG) Outcome: Ongoing Goal: Acceptable Pain Control/Comfort Level Description: Patient will demonstrate the desired outcomes by discharge/transition of care. Outcome: Ongoing * Plan of Care - Cassandra Neely RN - 10/16/2022 5:12 PM EDT Problem: Patient Care Overview Goal: Plan of Care Review Outcome: Ongoing * Plan of Care - ALVARADO Olivares - 10/16/2022 1:40 PM EDT Problem: OT - Dressing Goal: Upper Body Dressing Description: Pt will complete UE dressing task seated in chair with moderate assistance for improved ability to complete self-care activities. Outcome: Ongoing Problem: OT - ADLs Goal: Grooming Description: Pt will complete grooming seated in chair with minimal assistance for improved abilityto safely complete ADLs. Outcome: Ongoing Goal: Feeding Description: Pt will perform self-feeding task while seated with minimal assistance to promote success and safety during daily routine. Outcome: Ongoing Problem: OT - Balance Goal: Balance - Seated Description: Pt will perform 10 minutes of ADL routine in sitting with minimal assistance and balance level of minimum assist to promote safety during self- care activities. Outcome: Ongoing Problem: OT - Strength/ROM Goal: Strength/ROM ADL Participation Description: Pt will demonstrate independence with UE exercise program to prevent deconditioning while in the hospital and to maximize UE ROM/coordination/strength for ADL participation. Outcome: Ongoing * Plan of Care - ALVARADO Olivares - 10/16/2022 1:40 PM EDT Problem: OT - Dressing Goal: Upper Body Dressing Description: Pt will complete UE dressing task seated in chair with moderate assistance for improved ability to complete self-care activities. Outcome: Ongoing Problem: OT - ADLs Goal: Grooming Description: Pt will complete grooming seated in chair with minimal assistance for improved abilityto safely complete ADLs. 10/16/2022 1412 by ALVARADO Olivares Outcome: Ongoing 10/16/2022 1403 by ALVARADO Olivares Outcome: Ongoing Goal: Feeding Description: Pt will perform self-feeding task while seated with minimal assistance to promote success and safety during daily routine. 10/16/2022 1412 by ALVARADO Olivares Outcome: Ongoing 10/16/2022 1403 by ALVARADO Olivares Outcome: Ongoing Problem: OT - Balance Goal: Balance - Seated Description: Pt will perform 10 minutes of ADL routine in sitting with minimal assistance and balance level of minimum assist to promote safety during self- care activities. 10/16/2022 1412 by ALVARADO Olivares Outcome: Ongoing 10/16/2022 140 by ALVARADO Olivares Outcome: Ongoing Problem: OT - Strength/ROM Goal: Strength/ROM ADL Participation Description: Pt will demonstrate independence with UE exercise program to prevent deconditioning while in the hospital and to maximize UE ROM/coordination/strength for ADL participation. 10/16/2022 1412 by ALVARADO Olivares Outcome: Ongoing 10/16/2022 140 by ALVARADO Olivares Outcome: Ongoing * Plan of Care - Ana Rdz RN - 10/15/2022 10:42 PM EDT Problem: Patient Care Overview Goal: Plan of Care Review Outcome: Met This Shift Problem: Pain, Acute (Adult) Goal: Identify Related Risk Factors and Signs and Symptoms Description: Related risk factors and signs and symptoms are identified upon initiation of Human Response Clinical Practice Guideline (CPG) Outcome: Met This Shift Goal: Acceptable Pain Control/Comfort Level Description: Patient will demonstrate the desired outcomes by discharge/transition of care. Outcome: Met This Shift Problem: Patient Care Overview Goal: Individualization & Mutuality Outcome: Ongoing Goal: Discharge Needs Assessment Outcome: Ongoing Goal: Interdisciplinary Rounds/Family Conf Outcome: Ongoing * Plan of Care - Hanane Kothari RN - 10/15/2022 1:19 PM EDT Problem: Pain, Acute (Adult) Goal: Acceptable Pain Control/Comfort Level Description: Patient will demonstrate the desired outcomes by discharge/transition of care. Outcome: Met This Shift Problem: Pain, Acute (Adult) Goal: Identify Related Risk Factors and Signs and Symptoms Description: Related risk factors and signs and symptoms are identified upon initiation of Human Response Clinical Practice Guideline (CPG) Outcome: Met This Shift Flowsheets (Taken 10/15/2022 1319) Related Risk Factors (Acute Pain): disease process surgery Signs and Symptoms (Acute Pain): BADLs/IADLs reluctance/inability to perform verbalization of pain descriptors Goal: Acceptable Pain Control/Comfort Level Description: Patient will demonstrate the desired outcomes by discharge/transition of care. Outcome: Met This Shift * Plan of Care - Josesito Martin MD - 10/15/2022 10:27 AM EDT Neurosurgery Update: Consulted for transfer from OSH for worsening neuro exam after cervical spine surgery a weeks ago. Imaging reviewed which revealed MRI C spine from OSH on 10/13 demonstrates likely postop seroma and some STIR signal cord change, likely from incompletely resolved edema in the subacute postoperative period. No neurosurgical intervention at this time. - Please have patient follow up in spine clinic - Neurosurgery will sign-off. Please call with questions. Josesito Martin MD, Neurosurgery NS3 ([phone]) * Plan of Care - Julia Guerrero OT - 10/15/2022 7:26 AM EDT Problem: OT - Dressing Goal: Upper Body Dressing Description: Pt will complete UE dressing task seated in chair with moderate assistance for improved ability to complete self-care activities. Outcome: Ongoing Problem: OT - ADLs Goal: Grooming Description: Pt will complete grooming seated in chair with minimal assistance for improved abilityto safely complete ADLs. Outcome: Ongoing Goal: Feeding Description: Pt will perform self-feeding task while seated with minimal assistance to promote success and safety during daily routine. Outcome: Ongoing Problem: OT - Balance Goal: Balance - Seated Description: Pt will perform 10 minutes of ADL routine in sitting with minimal assistance and balance level of minimum assist to promote safety during self- care activities. Outcome: Ongoing Problem: OT - Strength/ROM Goal: Strength/ROM ADL Participation Description: Pt will demonstrate independence with UE exercise program to prevent deconditioning while in the hospital and to maximize UE ROM/coordination/strength for ADL participation. Outcome: Ongoing * Plan of Care - Ranjana Escalante PT - 10/15/2022 7:25 AM EDT Problem: PT - Transfers Goal: Rolling Description: Pt will roll from supine to sidelying with moderate assistance in order to improve functional mobility and safety. Outcome: Ongoing Goal: Supine <-> Sit Description: Pt will perform bed mobility with flat bed & no rail with moderate assistance in order to improve functional mobility and safety. Outcome: Ongoing Goal: Sit <-> Stand Description: Pt will perform sit to/from stand transfers with maximal assistance and of 2 people with out an assistive device or a WW as able in order to improve functional mobility and safety. Outcome: Ongoing Goal: Strength/ROM Description: Pt will perform 2 sets of 15 repetitions of lower bilateral extremity exercises with independence in order to improve strength, maintain ROM, necessary for functional mobility. Outcome: Ongoing * Significant Event - CRISTY Delong - 10/14/2022 8:39 PM EDT Discussion at bedside with the patient regarding her code status, she indicated to the RN that she is a DNRCCA. She states that the paperwork is at her attorneys office, she is willing to sign paperwork here. 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 She did understand that medications could be given in attempt to resuscitate and that is OK. She wants to be DNR-CCA. I signed the paperwork and put this code status in the chart. * Certification - Kelsie Wills MD - 10/14/2022 1:10 PM EDT I certify that this patient requires inpatient services at this time. I anticipate the expected length of stay will include at least two midnights. Inpatient services are due to the following medicalconcerns extermity numbness . Plans for post hospitalization care will be discharge to home. [facility] Plan of care note* Plan of Care - Hanane Kothari RN - 10/17/2022 11:27 AM EDT Problem: Pain, Acute (Adult) Goal: Acceptable Pain Control/Comfort Level Description: Patient will demonstrate the desired outcomes by discharge/transition of care. Outcome: Not Met This Shift Problem: Pain, Acute (Adult) Goal: Identify Related Risk Factors and Signs and Symptoms Description: Related risk factors and signs and symptoms are identified upon initiation of Human Response Clinical Practice Guideline (CPG) Outcome: Met This Shift Flowsheets (Taken 10/15/2022 1319) Related Risk Factors (Acute Pain): disease process surgery Signs and Symptoms (Acute Pain): BADLs/IADLs reluctance/inability to perform verbalization of pain descriptors [facility] History of Present illness Narrative* Ranjana Escalante PT - 10/17/2022 9:10 AM EDT Physical Therapy Attempt Note 10/17/2022 PT Therapy Completed: Attempted Attempted Reason: Other (see comments) (pt prepping for discharge later today) Ranjana Escalante PT Time In: 908 Time Out: 908 Total Visit Time: 0 minutes Total Treatment Time (skilled, billable minutes): 0 minutes * Namrata Powell DO - 10/16/2022 2:55 PM EDT Hospital Medicine Progress Note Patient: Miriam German, : 1955, Impression / Plan Chronic C1-C2 fracture s/p fusion w/ cerclage Concern for progressive weakness and paraesthesia MRI C spine from OSH on 10/13 demonstrates likely postop seroma and some STIR signal cord change, likely from incompletely resolved edema in the subacute postoperative period. She denies any fevers orsigns of infection. Pt denies any bowel or bladder incontinence. - NSGY - recommended admitting pt to medicine - no surgical intervention - discontinue dexamethasone and resume home prednisone taper - follow up in spine clinic, signed off - PT/OT - Symptomatic management Chronic respiratory failure 2/2 COPD - BL at 3L at home - Follow up with PCP HTN - Continue amlodipine DVT prophylaxis with heparin Anticipated Disposition: Back to SNF Code status is DNRCC-ARREST Interval History / Subjective Seen at bedside. NAD. In good spirits. Discussed discharge to SNF tomorrow, pt agreeable to it. Objective Temp: [97.3 F (36.3 C)-98.2 F (36.8 C)] 97.7 F (36.5 C) Pulse (Heart Rate): [76-100] 94 Resp Rate: [16-18] 17 BP: (137-174)/(66-84) 137/66 O2 Sat (%): [97 %-100 %] 100 % Physical Exam Gen: A, A, NAD ENT: MMM Resp: CTA & P bilat, normal effort Cardio: RRR, normal S1, S2, trace CARROLL GI: S/NT/ND, NABS Psych: Ox3, appropriate affect and cognition Neuro: grade teacher 3-7, 9-11 intact and equal. decreased motor strength in upper and lower ext Data Review * ALVARADO Olivares - 10/16/2022 1:40 PM EDT Acute Occupational Therapy Treatment Prior to Admission AM-PAC Score: PRIOR LEVEL AM-PAC Activity Raw Score: 24 PRIOR LEVEL AM-PAC Mobility Raw Score: 24 Current AM-PAC score(s): CURRENT AM-PAC Activity Raw Score: 8 Based on the above AM-PAC score(s), and OT clinical judgment, discharge destination recommendation is: Snf Facility Barriers to discharge home: Patient needs assistance with functional mobility, Patient needs assistance with ADLs, Patient needs assistance with IADLs (see note below) Mobility equipment available at home: rollator ADL equipment available at home: Equipment recommendations for discharge: Current therapy frequency recommendation(s) in acute: 5 times a week Precautions and Weightbearing Status: OT Existing Precautions/Restrictions: spinal, fall No critical lines at this time Patient Safety Communication Prior to Visit: Nursing Current brace/orthoses: (soft neck collar ATC) Subjective: Pt in chair upon arrival. Motivated to try AE for grooming/feeding Pain: General Pain Documentation (Adult, OB, Peds) Presence of Pain: denies pain/discomfort Presence of Pain Score (Auto-calculated): 0 Objective/Observation: Vitals/Vitals Responses to Treatment: vitals not assessed this date, no adverse events to warrant vitals assessment Cognition Overall Cognitive Status: Within Functional Limits Arousal/Alertness: Appropriate responses to stimuli Orientation Level: Oriented X4 Following Commands: Follows one step commands without difficulty Safety Judgment: Good awareness of safety precautions Awareness of Errors: Assistance required to identify errors made, Assistance required to correct errors made Deficits: Fully aware of deficits Attention Span: Appears intact Memory: Appears intact Problem Solving: Assistance required to generate solutions, Assistance required to identify errors made Cognition Comments: Good carryover of education ADL Assessment/Intervention: ADLs: Eating Assistance: Grooming Assistance: Moderate Grooming Location: seated in chair Grooming Deficit: Increased time to complete, Activity tolerance, Generalized weakness, Maintain grasp of items, Bringing items to mouth/face, Oral care, Use of adaptive equipment Grooming Skilled Rationale (Verbal/Tactile/Visual/Demonstration): Facilitate positioning, Facilitate postural control, Technique of activity, Adaptive equipment training Grooming Intervention/Details: Educated on universal cuff and trialled with toothbrush. Facilitatedsetup with toothpaste on toothbrush/in cuff; pt supported in chair for activity. Pt demonstrated increased independence with universal cuff with ability to brush all teeth thoroughly without assist Bathing Assistance: UE Dressing Assistance: LE Dressing Assistance: Toilet Assistance: Extremity Assessments: See OT Evaluation flowsheet for Extremity Measurement updates. Balance: Skin and Edema: Mobility Assessment/Intervention: Scooting Bridging Mobility Wright Level: Scooting/Bridging: maximum assist (25% patient effort) Physical Assist: Scooting/Bridgin person assist Bed Features/Set-up: Scooting/Bridging: Other, see comments (pt up in chair upon arrival, assist for optimal positioning in chair) Skilled Rationale: Positioning Skilled Intervention/Details: Scooting/Bridging: facilitated optimal positioning in chair utilizingchair features Transfer Assessment/Intervention: Functional Mobility: Outcome Score(s): CURRENT [facility] Daily Activity Inpatient Short Form Putting on/Taking Off Lower Body Clothin - Total Assistance Bathin - Total Assistance Toiletin - Total Assistance Putting on/Taking Off Upper Body Clothin - Total Assistance Groomin - A Lot of Assistance Eatin - A Lot of Assistance CURRENT [facility] Activity Raw Score: 8 CURRENT [facility] Activity Functional Limitation/Modifier: 85.69% Currently Impaired in Daily Activity- CM Interventions: Assessment & Plan: Pt demonstrates increased independence with grooming utilizing universal cuff from previous sessionand is making good progress towards goals. Pt continues to present with deficits in balance, ue strength/coordination, and activity tolerance and requires continued skilled OT services to address functional deficits and maximize safety and independence in ADLs. Patient Instruction/Education this session: Patient Instruction: ot role/poc Plan for next session: seated feeding with universal cuff Acute OT Goals Plan of Care by ALVARADO Olivares at 10/16/2022 1:40 PM Version 1 of 1 Problem: OT - Dressing Goal: Upper Body Dressing Description: Pt will complete UE dressing task seated in chair with moderate assistance for improved ability to complete self-care activities. Outcome: Ongoing Problem: OT - ADLs Goal: Grooming Description: Pt will complete grooming seated in chair with minimal assistance for improved abilityto safely complete ADLs. 10/16/2022 1412 by ALVARADO Olivares Outcome: Ongoing 10/16/2022 140 by ALVARADO Olivares Outcome: Ongoing Goal: Feeding Description: Pt will perform self-feeding task while seated with minimal assistance to promote success and safety during daily routine. 10/16/2022 1412 by ALVARADO Olivares Outcome: Ongoing 10/16/2022 140 by ALVARADO Olivares Outcome: Ongoing Problem: OT - Balance Goal: Balance - Seated Description: Pt will perform 10 minutes of ADL routine in sitting with minimal assistance and balance level of minimum assist to promote safety during self- care activities. 10/16/2022 1412 by ALVARADO Olivares Outcome: Ongoing 10/16/2022 140 by ALVARADO Olivares Outcome: Ongoing Problem: OT - Strength/ROM Goal: Strength/ROM ADL Participation Description: Pt will demonstrate independence with UE exercise program to prevent deconditioning while in the hospital and to maximize UE ROM/coordination/strength for ADL participation. 10/16/2022 1412 by ALVARADO Olivares Outcome: Ongoing 10/16/2022 1403 by ALVARADO Olivares Outcome: Ongoing OT treatment consisted of the following to work and progress towards the above goal(s): OT Evaluation and Treatment Time Self Care/Home Management (ADLs) Time Entry: 17 Treating Therapist: ALVARADO Olivares Additional Details: Co-evaluation/co-treatment performed?: No simultaneous skilled care performed I used facemask, protective eye shield, and gloves in today's patient interaction. Patient location at end of session: chair Alarms on at end of session: none Needs in reach. Ensured pt was able to utilize call light in 3/3 trials. Time In: 1340 Time Out: 1357 Total Visit Time: 17 minutes Total Treatment Time (skilled, billable minutes): 17 minutes Upon discontinuation of Acute Care Occupational Therapy Services or patient discharge from the hospital this note represents the current Occupational Therapy Discharge Summary. Associated attestation - Julia Guerrero OT - 10/16/2022 10:06 PM EDT This note was reviewed and edited as needed to better reflect the patient's clinical status and thetreatment plan Julia Guerrero OTR/L License # [id number] Pager: [phone] Upon discontinuation of Acute Care Occupational Therapy Services or patient discharge from the hospital this note represents the current Occupational Therapy Discharge Summary. * Cydney Wilder - 10/16/2022 9:38 AM EDT 10/16/22 0937 Transport Request Mode of Transfer BLS Name of Discharge Transport Company [place] (trip #[id number]) Discharge Transport ETA 10/17 at 10a Scheduled per CM. Cancelled [facility] on 10/20. Cydney Hicks Case Management Bottom Bleacher * RADHA Ayala - 10/15/2022 5:37 PM EDT Placement Plan Expected Discharge Date: 10/20/22 Referred Level of Care: SNF Barriers: Transport Current Referrals and Status 1. [facility] ([facility]) advised by [facility] to schedule ambulance transport to SNF. SW scheduled the earliest available trip for 1000 on Thursday, 10/20 via [employer]. SW updated CCM and bedside RN. will contact additional ambulance providers in an attempt to find an earlier time. RON Villar, SEAT COVERER Medical Social Work * Leyla Womack RN - 10/15/2022 4:07 PM EDT Discharge Planning Patient Assessment Admission Assessment Patient Assessment Completed: Focused Anticipated discharge disposition: Snf Facility Reason for Admission: Back pain, deconditioning Is the patient able to participate in the assessment?: Yes Information source: Patient Information Source Name/Contact: Miriam German- [phone] Demographics Verified and Updated: Yes Has the patient been admitted to any hospital in the last 30 days?: No, Transferred From Outside Hospital Advanced Care Planning Has the patient completed Advance Directives?: Completed, Not Available in Medical Record Referral to Social Work for Advance Care Planning? : Patient Agreeable Legal Next of Kin Does the patient have a Guardian?: No Spouse: No Adult Child(hollie), List All Adult Children: Yes Name and Contact information: Branden Lucero- [phone] Would you like to add additional adult children?: Yes Name and Contact information: Geremias Azeem- [phone] Reviewed and Updated in Demographics? : Yes Outpatient Providers Does patient have a primary care physician? : Yes When was the patient's last PCP visit?: > 30 days Does the patient follow any specialists?: Yes Reviewed and updated Care Team?: Yes Patient Care Team: Bhumika Stacy, DO as PCP - General (Internal Medicine) Environment/Caregivers Is the patient from a facility or alf?: Yes Facility Level of Care: Skilled Name of Facility or Institution and Contact Phone/Fax: Ezekiel Rivera Patient lives with: Alone Living Environment: House How many steps does the patient have to navigate to enter or inside the home? : 0 Does the patient have a first floor set-up with bed and bathroom?: Yes Patient Caregiving Responsibilities: Self Patient-identified caregiver/support network: Family Who does the patient identify as a teachable caregiver(s)?: Child(hollie) - Independent Services Does the patient use a home health or hospice agency?: No Current with dialysis?: No Does the patient use any community programs or services?: No Does patient use DME? : rollator, bedside commode, grab bars Would you like to add additional DME providers?: No Does the patient use oxygen?: No Does patient use medical supplies? : none Initial ADLs Prior to Arrival What is the patient's baseline physical functioning prior to this acute illness?: assist with ADLs What is the patient's baseline cognitive functioning prior to this acute illness?: independent Is the patient's baseline functioning changed by this acute illness? : No Concerns with patient being able to care for themselves at home? : Yes Are there therapy or specialists consults?: Yes Select consult type: PT, OT Medication Management Does the patient have prescription insurance coverage? : Yes Is the patient on Anticoagulation? : No [id number] [place] [address] - [address] [place] [address] [facility] [place] [place] [address] Coping/Stress Concerns about patient s coping and stress?: No Initial Discharge Planning Anticipated discharge disposition: Snf Facility Transportation Available for Discharge: Ambulance Anticipated DME: none Patient Assessment Completed: Focused Risk of Readmission: 4.8 Category Reference: High:16-100 Mod-High:10-16 Mod-Low: 5-10 Low: 0-5 Expected Discharge Date: Readmission Summary and Discharge Planning Narrative Anticipate this patient will dc to SNF. requested referral to [facility]. Referral sent. No other plans for surgical intervention . Case Management Plan 1.Contact information shared and role of clinical rn case management explained while admitted to [facility] 2.PCP/Specialist/pharmacy information updated 3. Patient demographic/address/emergency contact information verified 4.manager mortgage will continue to follow with medical team to coordinate discharge planning and arrange necessary follow up. 5. No immediate needs or concerns to be addressed at this time. Leyla SALDANA RN Clinical Hand Sewer [employer]oes [phone] Available on secure chat. * Aren Rico MD - 10/15/2022 1:13 PM EDT Hospital Medicine Progress Note Patient: Miriam German, : 1955, Impression / Plan Chronic C1-C2 fracture s/p fusion w/ cerclage Concern for progressive weakness and paraesthesia MRI C spine from OSH on 10/13 demonstrates likely postop seroma and some STIR signal cord change, likely from incompletely resolved edema in the subacute postoperative period. She denies any fevers orsigns of infection. Pt denies any bowel or bladder incontinence. - NSGY -- recommended admitting pt to medicine -- no surgical intervention -- discontinue dexamethasone and resume home prednisone -- follow up in spine clinicsigned off - PT/OT - Symptomatic management Hx of COPD per pt - BL at 3L at home - Follow up with PCP HTN - Continue amlodipine DVT prophylaxis with heparin Anticipated Disposition: Back to SNF Code status is DNRCC-ARREST Interval History / Subjective NAEO, doing fine this AM with improvement in weakness and tingling. LBM 2-3 days ago. Does not wantto try miralax or senna yet Objective Temp: [97.5 F (36.4 C)-98.8 F (37.1 C)] 98 F (36.7 C) Pulse (Heart Rate): [85-105] 91 Resp Rate: [18-29] 18 BP: (146-166)/(70-83) 166/79 O2 Sat (%): [93 %-98 %] 98 % Physical Exam Gen: A, A, NAD ENT: MMM Resp: CTA & P bilat, normal effort Cardio: RRR, normal S1, S2, trace CARROLL GI: S/NT/ND, NABS Psych: Ox3, appropriate affect and cognition Neuro: grade teacher 3-7, 9-11 intact and equal. decreased motor strength in upper and lower ext Data Review * Julia Guerrero, OT - 10/15/2022 7:26 AM EDT Acute Occupational Therapy Evaluation Prior to Admission AM-PAC Score: PRIOR LEVEL AM-PAC Activity Raw Score: 24 Current AM-PAC score(s): CURRENT AM-PAC Activity Raw Score: 7 Based on the above AM-PAC score(s) and OT clinical judgment, discharge destination recommendation is: Snf Facility Barriers to discharge home: Patient needs assistance with functional mobility, Patient needs assistance with ADLs, Patient needs assistance with IADLs (see note below) Mobility equipment available at home: rollator ADL equipment available at home: Equipment recommendations for discharge: Current therapy frequency recommendation(s) in acute: 5 times a week Precautions and Weightbearing Status: OT Existing Precautions/Restrictions: spinal, fall No critical lines at this time Patient Safety Communication Prior to Visit: Nursing, Rehab team Current brace/orthoses: (soft neck collar ATC) Subjective: Pt received supine and agreeable to tx. Pt received with soft collar on backwards. When educated ptregarding need to fix, pt reports I thought it was wrong . Pain: General Pain Documentation (Adult, OB, Peds) Presence of Pain: denies pain/discomfort Presence of Pain Score (Auto-calculated): 0 Home Setting Residence: House (1 story home, most recently at SNF following surgery) Lives With: alone First floor setup: bedroom, walk-in shower Number of stairs to enter home: 3 Number of stairs in home: 0 Mobility Equipment Available: rollator Previous Level of Function Prior level ADL Overview: Independent with all ADLs Dominant Hand: Right Bed Mobility/Transfers: independent Prior Level of Function Details: Pt independent prior to cervical surgery in August 2022. pt reports working on sitting balance on EOB and vic transfer to manual W/C at SNF. IADL History IADLs: independent Primary Language: Surinamese Home Management Skills: independent Medication Management: independent Homemaking Responsibilities: Yes Meal Prep Responsibility: Primary Laundry Responsibility: Primary Cleaning Responsibility: Primary Bill Paying/Finance Responsibility: Primary Shopping Responsibility: Primary Objective/Observation: Vitals/Vitals Responses to Treatment: Vitals not assessed this session; no adverse event to warrantvitals assessment. O2 Device: nasal cannula Flow (L/min): 3 Vision Screen Currently wearing corrective lenses: Reading only (does not typically use) Speech Speech: no gross deficits noted Successful Methods (Communication Strategies): verbal speech Hearing Hearing: no gross deficits noted Cognition Overall Cognitive Status: Within Functional Limits Arousal/Alertness: Appropriate responses to stimuli Orientation Level: Oriented X4 Following Commands: Follows one step commands without difficulty Safety Judgment: Good awareness of safety precautions Awareness of Errors: Assistance required to identify errors made, Assistance required to correct errors made Deficits: Fully aware of deficits Attention Span: Appears intact Memory: (grossly WFL for basic ADLs) Problem Solving: Assistance required to generate solutions, Assistance required to implement solutions ADLs: ADL Assessment: Toileting Deficit, LE Dressing Deficit, UE Dressing Deficit, Bathing Deficit, Grooming Deficit, Eating Deficit ADL Anticipated Performance (ADLs not directly observed this session): Toileting, LE Dressing, UE Dressing, Bathing, Grooming Eating Assistance: Maximal Eating Intervention/Details: pt reports starting to utilize u-cuff for eating when at rehab Grooming Assistance: Total Bathing Assistance: Total UE Dressing Assistance: Total LE Dressing Assistance: Total Toilet Assistance: Total Extremity Assessments: RUE Assessment RUE Assessment: AROM Impaired, Strength Impaired Right UE Assessment Details: shoulder minimal flexion, fair shoulder elevation, elbow and below grossly WFL RUE Strength RUE Overall Strength: (shoulder 2/5, elbow 3/5, grasp 3/5) LUE Assessment LUE Assessment: AROM Impaired, Strength Impaired Left UE Assessment Details: shoulder flexion 0-80 degrees, elbow and below WFL LUE Strength LUE Overall Strength: (shoulder 3/5, elbow and below 3+/4) Balance: Sitting Balance Static Sitting-Level of Assistance: Moderate assistance Sitting Balance Skilled Intervention/Details: sat EOB x 8-10 min with mod A for balance Neuro: Sensation Overall Sensation: (reports numbness/ tingling x 4 extremitites, however pt reports improvement in bilat LE and LUE since anti inflammatory given) Gross Coordination Gross Coordination: bilat UE intact Fine Motor Coordination Additional Documentation: Yes Fine Motor Coordination Left Hand Thumb/Finger Opposition Skills: moderate impairment Right Hand Thumb/Finger Opposition Skills: severe impairment Left Hand, Manipulation of Objects: moderate impairment Right Hand, Manipulation of Objects: severe impairment Skin and Edema: Edema Edema: none noted Mobility Assessment: Supine to Sit Mobility Wright Level: Supine->Sit: maximum assist (25% patient effort) Physical Assist: Supine->Sit: 2 person assist Bed Features/Set-up: Supine->Sit: Head of bed elevated Skilled Rationale: Hand placement, Technique of activity, Cues for increased safety Skilled Intervention/Details: Supine->Sit: required facilitation for bilat LE and trunk elevation Sit to Supine Mobility Wright Level: Sit->Supine: maximum assist (25% patient effort) Physical Assist: Sit->Supine: 2 person assist Bed Features/Set-up: Sit->Supine: Flat Skilled Rationale: Positioning, Verbal cues, Technique of activity Skilled Intervention/Details: Sit->Supine: required assist to guide trunk and elevate bilat LE to bed Outcome Score(s): CURRENT [facility] Daily Activity Inpatient Short Form Putting on/Taking Off Lower Body Clothin - Total Assistance Bathin - Total Assistance Toiletin - Total Assistance Putting on/Taking Off Upper Body Clothin - Total Assistance Groomin - Total Assistance Eatin - A Lot of Assistance CURRENT [facility] Activity Raw Score: 7 CURRENT [facility] Activity Functional Limitation/Modifier: 92.44% Currently Impaired in Daily Activity- CM Assessment & Plan: Pt is a 67-year-old female past medical history of C2 fracture status post fusion approximately a month ago presented to the chief complain numbness her extremities that started approximately about amonth ago. Patient was being followed by nurse surgery as an outpatient. Patient noticed that her symptoms are progressively getting worse. No saddle anesthesia or bowel or bladder incontinence. Patient denies any fevers chills chest pain shortness a breath abdominal pain nausea vomiting. Patient was transferred here for Neurosurgery evaluation. Upon getting an MRI at outside hospital showed a concern for cord edema and fluid collection. Patient was admitted and seen for therapy evaluation related to decreased strength x 4 extremities with intermittent numbness/ tingling rt anterior thigh leading to decline in self care status and basic mobility. Exam findings include impairments in: balance, endurance, strength, transfers, coordination, ROM, posture. These impairments contribute to occupational performance limitations including bathing, dressing, grooming, functional mobility, toileting, ADL transfers. The following factors impact the plan of care: recent cervical surgery No past medical history on file. No past surgical history on file. Pt with recent fusion for C2 fx 08/2022. Patient will benefit from skilled occupational therapy to address these impairments, occupational performance limitations, and participation restrictions. Patient's rehab potential is: good, to achieve stated therapy goals. Planned Therapy Interventions (OT Eval): ADL retraining, balance training, bed mobility training, fine motor coordination training, functional activity tolerance, ROM (range of motion), strengthening, transfer training Patient Instruction/Education this session: Patient Instruction: OT role and plan of care Plan for next session: seated grooming with adaptive equipment Acute OT Goals Plan of Care by Julia Guerrero OT at 10/15/2022 7:26 AM Version 1 of 1 Problem: OT - Dressing Goal: Upper Body Dressing Description: Pt will complete UE dressing task seated in chair with moderate assistance for improved ability to complete self-care activities. Outcome: Ongoing Problem: OT - ADLs Goal: Grooming Description: Pt will complete grooming seated in chair with minimal assistance for improved abilityto safely complete ADLs. Outcome: Ongoing Goal: Feeding Description: Pt will perform self-feeding task while seated with minimal assistance to promote success and safety during daily routine. Outcome: Ongoing Problem: OT - Balance Goal: Balance - Seated Description: Pt will perform 10 minutes of ADL routine in sitting with minimal assistance and balance level of minimum assist to promote safety during self- care activities. Outcome: Ongoing Problem: OT - Strength/ROM Goal: Strength/ROM ADL Participation Description: Pt will demonstrate independence with UE exercise program to prevent deconditioning while in the hospital and to maximize UE ROM/coordination/strength for ADL participation. Outcome: Ongoing OT treatment consisted of the following to work and progress towards the above goal(s): OT Evaluation and Treatment Time OT Evaluation (High) Time Entry: 20 Evaluating Therapist: Julia Guerrero OT Additional Details: Co-evaluation/co-treatment performed?: Yes, simultaneous billable skilled care This co-evaluation session performed between OT and PT was beneficial, necessary and provided distinct services in establishing this person's individual plan of care. Medical complexity with functional deficits necessitated two skilled therapy disciplines working concurrently to determine each discipline's goals. This co-treatment was medically necessary due to patient's: Coordination issues and Postural control I used gloves and facemask in today's patient interaction. OT Evaluation Complexity Occupational Profile and Client History: High - extensive history Assessment of Occupational Performance: High (5 or more performance deficits) Clinical Decision/Performance Deficits: High (comprehensive assessments w/multiple treatment options) Time In: 724 Time Out: 744 Total Visit Time: 20 minutes Total Treatment Time (skilled, billable minutes): 20 minutes Patient location at end of session: bed with head of bed elevated and RN aware Alarms on at end of session: none and RN aware Needs and call light left within reach. All lines remained intact throughout and during session. Upon discontinuation of Acute Care Occupational Therapy Services or patient discharge from the hospital this note represents the current Occupational Therapy Discharge Summary. * Ranjana Escalante, PT - 10/15/2022 7:25 AM EDT Acute Physical Therapy Evaluation Prior to Admission [facility] score(s): PRIOR LEVEL AM-PAC Mobility Raw Score: 24 Current AM-PAC score(s): CURRENT AM-PAC Mobility Raw Score: 7 Based on the above AM-PAC score(s) and PT clinical judgment, patient is a good candidate for discharge to Snf Facility return Barriers to discharge home: Patient unable to navigate stairs to enter home, Patient needs assistance with functional mobility, Lack of social support to meet functional needs at home, Lack of supervision necessary to mitigate fall risk Mobility equipment available at home: rollator ADL equipment available at home: Equipment needed for discharge: to be determined Current therapy frequency recommendation in acute: Therapy Frequency: 5 times a week Precautions and Weightbearing Status: No critical lines at this time Patient Safety Communication Prior to Visit: Nursing, Rehab team Current brace/orthoses: (soft neck collar ATC) Subjective: Pt pleasant, motivated and agreeable to PT session. Pt reports she's hopeful to get back to walkingwith rehab. Pain: General Pain Documentation (Adult, OB, Peds) Presence of Pain: denies pain/discomfort Presence of Pain Score (Auto-calculated): 0 Home Setting Residence: House (1 story home, most recently at SNF following surgery) Lives With: alone First floor setup: bedroom, walk-in shower Number of stairs to enter home: 3 Number of stairs in home: 0 Mobility Equipment Available: rollator Previous Level of Function Prior level ADL Overview: Independent with all ADLs Dominant Hand: Right Bed Mobility/Transfers: independent Prior Level of Function Details: Pt independent prior to cervical surgery in August 2022. pt reports working on sitting balance on EOB and vic transfer to manual W/C at [facility]. Objective/Observation: Vitals/Vitals Responses to Treatment: Vitals not assessed this session; no adverse event to warrantvitals assessment. O2 Device: nasal cannula Flow (L/min): 3 Cognition Overall Cognitive Status: Within Functional Limits Arousal/Alertness: Appropriate responses to stimuli Orientation Level: Oriented X4 Following Commands: Follows one step commands without difficulty Vision Screen Currently wearing corrective lenses: Reading only, No Visual Impairments Observed?: No Speech Speech: no gross deficits noted Successful Methods (Communication Strategies): verbal speech Hearing Hearing: no gross deficits noted Extremity Assessments: RUE Assessment RUE Assessment: AROM Impaired, Strength Impaired Right UE Assessment Details: shoulder minimal flexion, fair shoulder elevation, elbow and below grossly WFL RUE Strength RUE Overall Strength: (shoulder 2/5, elbow 3/5, grasp 3/5) LUE Assessment LUE Assessment: AROM Impaired, Strength Impaired Left UE Assessment Details: shoulder flexion 0-80 degrees, elbow and below WFL LUE Strength LUE Overall Strength: (shoulder 3/5, elbow and below 3+/4) RLE Assessment RLE Assessment: (hip/knee 2-3/5; ankle WFL) LLE Assessment LLE Assessment: Within Functional Limits Sensation Sensation Comments: reports numbness/ tingling x 4 extremitites, however pt reports improvement in bilat LE and LUE since anti inflammatory given Mobility Assessment: Supine to Sit Mobility Wright Level: Supine->Sit: maximum assist (25% patient effort) Physical Assist: Supine->Sit: 2 person assist Bed Features/Set-up: Supine->Sit: Head of bed elevated Skilled Rationale: Hand placement, Technique of activity, Cues for increased safety Skilled Intervention/Details: Supine->Sit: required facilitation for bilat LE and trunk elevation Sit to Supine Mobility Wright Level: Sit->Supine: maximum assist (25% patient effort) Physical Assist: Sit->Supine: 2 person assist Bed Features/Set-up: Sit->Supine: Flat Skilled Rationale: Verbal cues, Positioning, Technique of activity, Cues for increased safety Skilled Intervention/Details: Sit->Supine: required assist to guide trunk and elevate bilat LE to bed Balance: Sitting Balance Static Sitting-Level of Assistance: Moderate assistance Dynamic Sitting-Level of Assistance: Moderate assistance Sitting Balance Skilled Intervention/Details: sat EOB x 8-10 min with mod A for balance, while given dependent assist for eating yogurt Outcome Score(s): CURRENT [facility] Basic Mobility Inpatient Short Form Turning over in bed: 2 - A Lot of Assistance Sitting/standing from chair: 1 - Total Assistance Moving from lying on back to sittin - Total Assistance Moving to and from bed to chair: 1 - Total Assistance Walk in hospital room: 1 - Total Assistance Climbing 3-5 steps with a railin - Total Assistance CURRENT [facility] Mobility Raw Score: 7 CURRENT [facility] Mobility Functional Limitation/Modifier: 92.36% Currently Impaired in Basic Mobility- CM Assessment & Plan: Patient was admitted for C2 fracture status post fusion, presents with the outside hospital MRI that shows cord edema and seen for therapy evaluation related to impaired functional mobility/assisitvedevice needs/safe discharge plan. Exam findings include impairments in: Strength, ROM (range of motion), Transfers, Aerobic capacity/endurance, Sensation, Balance. These impairments contribute to functional limitations including Increased fall risk, Difficulty with transfers, Difficulty with bed mobility, Decreased functional mobility. Current clinical presentation is Unstable - unstable and unpredictable characteristics - safety risk (High). Patient history factors impacting Plan Of Care include past medical history. Patient will benefit from skilled physical therapy to address these impairments, functional limitations, and participation restrictions and has good rehab potential to achieve therapy goals. Planned Therapy Interventions: balance training, endurance, functional activity tolerance, ROM, strengthening, transfer training Patient Instruction/Education this session: Role of PT, plan of care, discharge plan Plan for next session: EOB sitting balance; sit-stand transfer training as tolerated; strengthening Acute PT Goals Plan of Care by Ranjana Escalante PT at 10/15/2022 7:25 AM Version 1 of 1 Problem: PT - Transfers Goal: Rolling Description: Pt will roll from supine to sidelying with moderate assistance in order to improve functional mobility and safety. Outcome: Ongoing Goal: Supine <-> Sit Description: Pt will perform bed mobility with flat bed & no rail with moderate assistance in order to improve functional mobility and safety. Outcome: Ongoing Goal: Sit <-> Stand Description: Pt will perform sit to/from stand transfers with maximal assistance and of 2 people with out an assistive device or a WW as able in order to improve functional mobility and safety. Outcome: Ongoing Goal: Strength/ROM Description: Pt will perform 2 sets of 15 repetitions of lower bilateral extremity exercises with independence in order to improve strength, maintain ROM, necessary for functional mobility. Outcome: Ongoing PT treatment consisted of the following to progress towards the above goal(s): PT Evaluation and Treatment Time PT Evaluation (High) Time Entry: 20 Evaluating Therapist: Ranjana Escalante PT Additional Details: Co-evaluation/co-treatment performed?: Yes, simultaneous billable skilled care This co-evaluation session performed between PT and OT was beneficial, necessary and provided distinct services in establishing this person's individual plan of care. Medical complexity with functional deficits necessitated two skilled therapy disciplines working concurrently to determine each discipline's goals. I used facemask, protective eye shield, and gloves in today's patient interaction. Evaluation Complexity Components History: High (3 personal factors and/or comorbidities) Body Systems Review: High (Addressing a total of 4 or more elements) Clinical Presentation: Unstable - unstable and unpredictable characteristics - safety risk (High) Clinical Decision Making: High Time In: 724 Time Out: 744 Total Visit Time: 20 minutes Total Treatment Time (skilled, billable minutes): 20 minutes Patient location at end of session: bed with head of bed elevated and RN aware Alarms on at end of session: bed alarm and RN aware All applicable lines, tubes, drains were in tact, alarms on as indicated above, and needs in reach upon departure from the room. Upon discontinuation of Acute Care Physical Therapy Services or patient discharge from the hospitalthis note represents the current Physical Therapy Discharge Summary. [facility] care note* Plan of Care - Ana Rdz RN - 10/17/2022 1:32 AM EDT Problem: Patient Care Overview Goal: Plan of Care Review Outcome: Met This Shift Problem: Patient Care Overview Goal: Individualization & Mutuality Outcome: Ongoing Goal: Discharge Needs Assessment Outcome: Ongoing Goal: Interdisciplinary Rounds/Family Conf Outcome: Ongoing Problem: Pain, Acute (Adult) Goal: Identify Related Risk Factors and Signs and Symptoms Description: Related risk factors and signs and symptoms are identified upon initiation of Human Response Clinical Practice Guideline (CPG) Outcome: Ongoing Goal: Acceptable Pain Control/Comfort Level Description: Patient will demonstrate the desired outcomes by discharge/transition of care. Outcome: Ongoing [facility]07-27-2023 Plan of care note* Plan of Care - Cassandra Neely RN - 10/16/2022 5:12 PM EDT Problem: Patient Care Overview Goal: Plan of Care Review Outcome: Ongoing [facility]07-27-2023 Plan of care note* Plan of Care - ALVARADO Olivares - 10/16/2022 1:40 PM EDT Problem: OT - Dressing Goal: Upper Body Dressing Description: Pt will complete UE dressing task seated in chair with moderate assistance for improved ability to complete self-care activities. Outcome: Ongoing Problem: OT - ADLs Goal: Grooming Description: Pt will complete grooming seated in chair with minimal assistance for improved abilityto safely complete ADLs. Outcome: Ongoing Goal: Feeding Description: Pt will perform self-feeding task while seated with minimal assistance to promote success and safety during daily routine. Outcome: Ongoing Problem: OT - Balance Goal: Balance - Seated Description: Pt will perform 10 minutes of ADL routine in sitting with minimal assistance and balance level of minimum assist to promote safety during self- care activities. Outcome: Ongoing Problem: OT - Strength/ROM Goal: Strength/ROM ADL Participation Description: Pt will demonstrate independence with UE exercise program to prevent deconditioning while in the hospital and to maximize UE ROM/coordination/strength for ADL participation. Outcome: Ongoing [facility]07-27-2023 Plan of care note* Plan of Care - ALVARADO Olivares - 10/16/2022 1:40 PM EDT Problem: OT - Dressing Goal: Upper Body Dressing Description: Pt will complete UE dressing task seated in chair with moderate assistance for improved ability to complete self-care activities. Outcome: Ongoing Problem: OT - ADLs Goal: Grooming Description: Pt will complete grooming seated in chair with minimal assistance for improved abilityto safely complete ADLs. 10/16/2022 1412 by ALVARADO Olivares Outcome: Ongoing 10/16/2022 1403 by ALVARADO Olivares Outcome: Ongoing Goal: Feeding Description: Pt will perform self-feeding task while seated with minimal assistance to promote success and safety during daily routine. 10/16/2022 1412 by ALVARADO Olivares Outcome: Ongoing 10/16/2022 1403 by ALVARADO Olivares Outcome: Ongoing Problem: OT - Balance Goal: Balance - Seated Description: Pt will perform 10 minutes of ADL routine in sitting with minimal assistance and balance level of minimum assist to promote safety during self- care activities. 10/16/2022 1412 by ALVARADO Olivares Outcome: Ongoing 10/16/2022 140 by ALVARADO Olivares Outcome: Ongoing Problem: OT - Strength/ROM Goal: Strength/ROM ADL Participation Description: Pt will demonstrate independence with UE exercise program to prevent deconditioning while in the hospital and to maximize UE ROM/coordination/strength for ADL participation. 10/16/2022 1412 by ALVARADO Olivares Outcome: Ongoing 10/16/2022 140 by ALVARADO Olivares Outcome: Ongoing [facility]07-26-2023 Plan of care note* Plan of Care - Ana Rdz RN - 10/15/2022 10:42 PM EDT Problem: Patient Care Overview Goal: Plan of Care Review Outcome: Met This Shift Problem: Pain, Acute (Adult) Goal: Identify Related Risk Factors and Signs and Symptoms Description: Related risk factors and signs and symptoms are identified upon initiation of Human Response Clinical Practice Guideline (CPG) Outcome: Met This Shift Goal: Acceptable Pain Control/Comfort Level Description: Patient will demonstrate the desired outcomes by discharge/transition of care. Outcome: Met This Shift Problem: Patient Care Overview Goal: Individualization & Mutuality Outcome: Ongoing Goal: Discharge Needs Assessment Outcome: Ongoing Goal: Interdisciplinary Rounds/Family Conf Outcome: Ongoing [facility]07-26-2023 Plan of care note* Plan of Care - Hanane Kothari RN - 10/15/2022 1:19 PM EDT Problem: Pain, Acute (Adult) Goal: Acceptable Pain Control/Comfort Level Description: Patient will demonstrate the desired outcomes by discharge/transition of care. Outcome: Met This Shift Problem: Pain, Acute (Adult) Goal: Identify Related Risk Factors and Signs and Symptoms Description: Related risk factors and signs and symptoms are identified upon initiation of Human Response Clinical Practice Guideline (CPG) Outcome: Met This Shift Flowsheets (Taken 10/15/2022 1319) Related Risk Factors (Acute Pain): disease process surgery Signs and Symptoms (Acute Pain): BADLs/IADLs reluctance/inability to perform verbalization of pain descriptors Goal: Acceptable Pain Control/Comfort Level Description: Patient will demonstrate the desired outcomes by discharge/transition of care. Outcome: Met This Shift [facility]07-26-2023 Hospital Discharge instructions* Discharge Instructions* Kareen Barcenas RN - 10/15/2022 12:03 PM EDT Patient Experience Survey Reminder You may receive a survey in the mail within a few weeks regarding your hospitalization. This helps us to improve the care and services we provide at [facility]. We truly appreciate you taking the time to fill this out. We particularly welcome any specific comments you may have (good or bad!) regarding your experienceat [facility] so that we may use them to continue to strive towards excellence for our patients. * Attachments The following attachments cannot be sent through Care Everywhere. * Pain and Pain Control ([facility]) (Surinamese) [facility] care [facility]* Plan of Care - Josesito Martin MD - 10/15/2022 10:27 AM EDT Neurosurgery Update: Consulted for transfer from OSH for worsening neuro exam after cervical spine surgery a weeks ago. Imaging reviewed which revealed MRI C spine from OSH on 10/13 demonstrates likely postop seroma and some STIR signal cord change, likely from incompletely resolved edema in the subacute postoperative period. No neurosurgical intervention at this time. - Please have patient follow up in spine clinic - Neurosurgery will sign-off. Please call with questions. Josesito Martin MD, Neurosurgery NS3 ([phone]) [facility] Work Phone: 1(103) 315-541607-26-2023 Plan of care note* Plan of Care - Julia Guerrero OT - 10/15/2022 7:26 AM EDT Problem: OT - Dressing Goal: Upper Body Dressing Description: Pt will complete UE dressing task seated in chair with moderate assistance for improved ability to complete self-care activities. Outcome: Ongoing Problem: OT - ADLs Goal: Grooming Description: Pt will complete grooming seated in chair with minimal assistance for improved abilityto safely complete ADLs. Outcome: Ongoing Goal: Feeding Description: Pt will perform self-feeding task while seated with minimal assistance to promote success and safety during daily routine. Outcome: Ongoing Problem: OT - Balance Goal: Balance - Seated Description: Pt will perform 10 minutes of ADL routine in sitting with minimal assistance and balance level of minimum assist to promote safety during self- care activities. Outcome: Ongoing Problem: OT - Strength/ROM Goal: Strength/ROM ADL Participation Description: Pt will demonstrate independence with UE exercise program to prevent deconditioning while in the hospital and to maximize UE ROM/coordination/strength for ADL participation. Outcome: Ongoing [facility]07-26-2023 Plan of care note* Plan of Care - Ranjana Escalante, PT - 10/15/2022 7:25 AM EDT Problem: PT - Transfers Goal: Rolling Description: Pt will roll from supine to sidelying with moderate assistance in order to improve functional mobility and safety. Outcome: Ongoing Goal: Supine <-> Sit Description: Pt will perform bed mobility with flat bed & no rail with moderate assistance in order to improve functional mobility and safety. Outcome: Ongoing Goal: Sit <-> Stand Description: Pt will perform sit to/from stand transfers with maximal assistance and of 2 people with out an assistive device or a WW as able in order to improve functional mobility and safety. Outcome: Ongoing Goal: Strength/ROM Description: Pt will perform 2 sets of 15 repetitions of lower bilateral extremity exercises with independence in order to improve strength, maintain ROM, necessary for functional mobility. Outcome: Ongoing [facility]07-25-2023 Nurse procedure note* Significant Event - CRISTY Delong - 10/14/2022 8:39 PM EDT Discussion at bedside with the patient regarding her code status, she indicated to the RN that she is a DNRCCA. She states that the paperwork is at her attorneys office, she is willing to sign paperwork here. 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 She did understand that medications could be given in attempt to resuscitate and that is OK. She wants to be DNR-CCA. I signed the paperwork and put this code status in the chart. [facility] Work Phone: 1(724) 472-392307-25-2023 History and physical note* Kelsie Wills MD - 10/14/2022 1:16 PM EDT Hospital Medicine Admission History & Physical Patient: Miriam German, 1955, [id number] Physician: Kelsie Wills MD, Attending Physician, Pager #[phone], med 2 service Date of face to face patient encounter: 10/14/22. IMPRESSION/PLAN #C2 fracture status post fusion, presents with the outside hospital MRI that shows cord edema -patient was evaluated by Neurosurgery and a and recommended to be due to for stabilization -will obtain recommendation regarding steroids from NS -PTOT -symptom control #HTN : Will continue home medication of amlodipine DVT prophylaxis with heparin Disposition: admit Code status is full CHIEF COMPLAINT Numbness in her extremities HISTORY OF PRESENT ILLNESS Miriam German is a 67 y.o. female that has been admitted to [facility]. This is a 67-year-old female past medical history of C2 fracture status post fusion approximately amonth ago presented to the chief complain numbness her extremities that started approximately abouta month ago. Patient was being followed by nurse surgery as an outpatient. Patient noticed that hersymptoms are progressively getting worse. No saddle anesthesia or bowel or bladder incontinence. Patient denies any fevers chills chest pain shortness a breath abdominal pain nausea vomiting. Patientwas transferred here for Neurosurgery evaluation. Upon getting an MRI at outside hospital showed a concern for cord edema and fluid collection. MEDICAL HISTORY C2 fracture status post fusion HTN SOCIAL HISTORY Social History Tobacco Use Smoking status: Former Types: Cigarettes Quit date: 2013 Years since quittin.5 Smokeless tobacco: Never Substance Use Topics Alcohol use: Not Currently Social History Substance and Sexual Activity Drug Use Not Currently FAMILY HISTORY HTN MEDICATIONS Prior to Admission Medications Prescriptions Last Dose Informant Patient Reported? Taking? amLODIPine 2.5 MG tablet Yes Yes Sig: Take 1 tablet by mouth daily. predniSONE 10 MG tablet Yes No Sig: TAKE 1 TABLET BY MOUTH EVERY MORNING AND 1/2 TABLET EVERY EVENING Facility-Administered Medications: None ALLERGIES No Known Allergies REVIEW OF SYSTEMS Constitutional (- fever, chills, weight changes) Eyes (negative for vision changes) ENT (- ringing, loss of hearing) Cardiovascular (no LE edema or leg pain with walking, denies PND, orthopnea) Respiratory (no cough, SOB) Gastrointestinal (no abd pain, constipation, diarrhea) Genitourinary (- dysuria, gross hematuria) Integumentary (no rash) Musculoskeletal (no joint deformity, joint pains) Psych: no depressed mood PHYSICAL EXAM Vitals: 10/14/22 1200 BP: 171/79 Pulse: 96 Resp: 18 Temp: SpO2: 98% O2 Device: nasal cannula (10/14/22 1200) Flow (L/min): 3 (10/14/22 1000) Gen: Alert, Awake, NAD Eyes: PERRLA, EOMI, no icterus ENT: MMM, trachea midline Resp: CTA & P, normal respiratory effort Cardio: RRR, normal S1, S2, no M/R/G. No CARROLL. GI: S/NT/ND, NABS MS: No joint effusions or erythema: Skin: No jaundice or rash Neuro: grade teacher 3-7, 9-11 intact and equal. Strength grossly equal in muscle groups of the bilateral UEsand LEs. Psych: Alert, Ox3, appropriate affect and cognition DATA REVIEW WBC/Hgb/Hct/Plts: 7.65/14.6/45.9/199 (10/14 301) Na/K+/Phos/Mg/Ca: 145/3.7/--/--/-- (10/14 301) Bun/Creat/Cl/CO2/Glucose: 17/0.45/103/31/149 (10/14 301) Ptt/Pt/Inr: 20.9/12.1/0.9 (10/14 301) There is no height or weight on file to calculate BMI. Additional Labs: CT SPINE CERVICAL WITHOUT CONTRAST Final Result IMPRESSION: 1. Recent postoperative changes of the cervical spine at C1-2, including posterior spacer supported by cerclage wires and incompletely fused bone graft material. An operative bed fluid collection of uncertain sterility is again seen, unchanged from recent MR imaging, measuring up to 3.7 cm in greatest dimension. Correlation is necessary to guide management. 2. Incompletely healed type II dens fracture with mild residual distraction. 3. Advanced degenerative changes cervical spine contributing to multilevel spinal canal and neuroforaminal stenosis. I personally viewed and interpreted these images and I have reviewed and approved this report. SPINE CERVICAL 4 VIEWS Final Result IMPRESSION: 1. Assessment limited by limitations in positioning and body habitus. 2. Posterior spacer at C1-2 supported by cerclage wires, better characterized on same-day CT imaging. 3. Incompletely healed type II dens fracture, also better visualized on same-day CT imaging. 4. Multilevel advanced neural foraminal stenosis. 5. Degenerative anterolisthesis, C3-4, 3 mm. I personally viewed and interpreted these images and I have reviewed and approved this report. CHEST PORTABLE Final Result IMPRESSION: 1. Multifocal bibasilar alveolar disease, favoring evidence of pneumonia in the appropriate clinical setting. 2. Probable small effusions. 3. Suspect a background of interstitial fibrosis. I personally viewed and interpreted these images and I have reviewed and approved this report. Imaging: Results for orders placed or performed during the hospital encounter of 10/13/22 [facility] 7 - ED Result Value Ref Range Sodium 145 135 - 145 mmol/L Potassium 3.7 3.5 - 5.0 mmol/L Chloride 103 98 - 108 mmol/L CO2 31 21 - 31 mmol/L Glucose 149 (H) 70 - 99 mg/dL BUN 17 7 - 25 mg/dL Creatinine 0.45 (L) 0.50 - 1.20 mg/dL Bun/Crea Ratio 38 Osmolality (Calculated) 306 (H) 278 - 305 mOsm/kg Anion Gap 15 7 - 17 mmol/L eGFR, CKD-EPI, Female >90 >=60 mL/min/1.73m2 CBC AND ELECTRONIC DIFF Result Value Ref Range WBC Count 7.65 3.99 - 11.19 K/uL RBC Count 4.77 3.91 - 5.04 M/uL Hemoglobin 14.6 11.4 - 15.2 g/dL Hematocrit 45.9 (H) 34.9 - 44.3 % Mean Cell Volume 96.2 79.6 - 97.7 fL Mean Cell Hgb 30.6 25.9 - 33.9 pg Mean Cell Hgb Conc 31.8 31.4 - 35.9 g/dL RBC Distribution 13.6 10.8 - 14.9 % Platelet Count 199 150 - 393 K/uL Mean Platelet Volume 9.5 8.5 - 12.2 fL DIFF STATUS Electronic Differential Segs + Bands Auto 88.2 % Immature Grans % 4.7 % Lymphocyte % Auto 5.2 % Monocyte % Auto 1.2 % Eosinophil % Auto 0.0 % Basophil % Auto 0.7 % Nucleated RBC 0.0 <=0.2 /100 WBC Segs + Bands,Absolute Auto 6.75 1.64 - 7.28 K/uL Immature Grans Absolute 0.36 (H) <=0.08 K/uL Abs Lymph Auto 0.40 (L) 1.16 - 3.51 K/uL Abs Haskell Auto 0.09 (L) 0.22 - 0.87 K/uL Abs Eos Auto <0.04 0.00 - 0.42 K/uL Abs Baso Auto 0.05 0.00 - 0.15 K/uL C REACTIVE PROTEIN Result Value Ref Range C Reactive Protein 17.94 (H) <10.00 mg/L PT,INR,PTT Result Value Ref Range PT 12.1 11.9 - 14.2 sec INR 0.9 0.9 - 1.1 PTT 20.9 (L) 24.0 - 34.3 sec LACTATE, BLOOD Result Value Ref Range Lactate, Blood 2.1 (H) 0.5 - 1.6 mmol/L TYPE AND SCREEN Result Value Ref Range ABO/RH(D) TYPE A POS ANTIBODY SCREEN NEG URINALYSIS REFLEX TO CULTURE PERFORMABLE Result Value Ref Range Color Yellow Yellow Appearance Urine Clear Clear Glucose Urine Negative Negative Ketones Urine Negative Negative Specific Swengel Urine 1.010 1.001 - 1.035 Blood Urine Negative Negative pH Urine 7.0 5.0 - 7.0 Protein Urine Negative Negative Urobilinogen Urine 0.2 E.U./dL 0.2 E.U/dL, 1.0 E.U/dL Nitrites Urine Positive (A) Negative Leukocyte Esterase Trace (A) Negative RBC Urine 0-2 0 - 2 /HPF WBC Urine 0 - 5 0 - 5 /HPF Squamous/Epithelial Cells 0-2/hpf 0-2/hpf, 3-5/hpf = 1+ Bacteria PRESENT (A) ABSENT Hyaline Casts 0 - 2 (A) (none) /LPF Yeast/Fungi PRESENT (A) ABSENT ECG none Signed, Kelsie Wills MD [facility]07-25-2023 History and physical note* Kelsie Wills MD - 10/14/2022 1:16 PM EDT Hospital Medicine Admission History & Physical Patient: Miriam German, 1955, [id number] Physician: Kelsie Wills MD, Attending Physician, Pager #[phone], med 2 service Date of face to face patient encounter: 10/14/22. IMPRESSION/PLAN #C2 fracture status post fusion, presents with the outside hospital MRI that shows cord edema -patient was evaluated by Neurosurgery and a and recommended to be due to for stabilization -will obtain recommendation regarding steroids from NS -PTOT -symptom control #HTN : Will continue home medication of amlodipine DVT prophylaxis with heparin Disposition: admit Code status is full CHIEF COMPLAINT Numbness in her extremities HISTORY OF PRESENT ILLNESS Miriam German is a 67 y.o. female that has been admitted to [facility]. This is a 67-year-old female past medical history of C2 fracture status post fusion approximately amonth ago presented to the chief complain numbness her extremities that started approximately abouta month ago. Patient was being followed by nurse surgery as an outpatient. Patient noticed that hersymptoms are progressively getting worse. No saddle anesthesia or bowel or bladder incontinence. Patient denies any fevers chills chest pain shortness a breath abdominal pain nausea vomiting. Patientwas transferred here for Neurosurgery evaluation. Upon getting an MRI at outside hospital showed a concern for cord edema and fluid collection. MEDICAL HISTORY C2 fracture status post fusion HTN SOCIAL HISTORY Social History Tobacco Use Smoking status: Former Types: Cigarettes Quit date: 2013 Years since quittin.5 Smokeless tobacco: Never Substance Use Topics Alcohol use: Not Currently Social History Substance and Sexual Activity Drug Use Not Currently FAMILY HISTORY HTN MEDICATIONS Prior to Admission Medications Prescriptions Last Dose Informant Patient Reported? Taking? amLODIPine 2.5 MG tablet Yes Yes Sig: Take 1 tablet by mouth daily. predniSONE 10 MG tablet Yes No Sig: TAKE 1 TABLET BY MOUTH EVERY MORNING AND 1/2 TABLET EVERY EVENING Facility-Administered Medications: None ALLERGIES No Known Allergies REVIEW OF SYSTEMS Constitutional (- fever, chills, weight changes) Eyes (negative for vision changes) ENT (- ringing, loss of hearing) Cardiovascular (no LE edema or leg pain with walking, denies PND, orthopnea) Respiratory (no cough, SOB) Gastrointestinal (no abd pain, constipation, diarrhea) Genitourinary (- dysuria, gross hematuria) Integumentary (no rash) Musculoskeletal (no joint deformity, joint pains) Psych: no depressed mood PHYSICAL EXAM Vitals: 10/14/22 1200 BP: 171/79 Pulse: 96 Resp: 18 Temp: SpO2: 98% O2 Device: nasal cannula (10/14/22 1200) Flow (L/min): 3 (10/14/22 1000) Gen: Alert, Awake, NAD Eyes: PERRLA, EOMI, no icterus ENT: MMM, trachea midline Resp: CTA & P, normal respiratory effort Cardio: RRR, normal S1, S2, no M/R/G. No CARROLL. GI: S/NT/ND, NABS MS: No joint effusions or erythema: Skin: No jaundice or rash Neuro: grade teacher 3-7, 9-11 intact and equal. Strength grossly equal in muscle groups of the bilateral UEsand LEs. Psych: Alert, Ox3, appropriate affect and cognition DATA REVIEW WBC/Hgb/Hct/Plts: 7.65/14.6/45.9/199 (10/14 301) Na/K+/Phos/Mg/Ca: 145/3.7/--/--/-- (10/14 301) Bun/Creat/Cl/CO2/Glucose: 17/0.45/103/31/149 (10/14 301) Ptt/Pt/Inr: 20.9/12.1/0.9 (10/14 301) There is no height or weight on file to calculate BMI. Additional Labs: CT SPINE CERVICAL WITHOUT CONTRAST Final Result IMPRESSION: 1. Recent postoperative changes of the cervical spine at C1-2, including posterior spacer supported by cerclage wires and incompletely fused bone graft material. An operative bed fluid collection of uncertain sterility is again seen, unchanged from recent MR imaging, measuring up to 3.7 cm in greatest dimension. Correlation is necessary to guide management. 2. Incompletely healed type II dens fracture with mild residual distraction. 3. Advanced degenerative changes cervical spine contributing to multilevel spinal canal and neuroforaminal stenosis. I personally viewed and interpreted these images and I have reviewed and approved this report. SPINE CERVICAL 4 VIEWS Final Result IMPRESSION: 1. Assessment limited by limitations in positioning and body habitus. 2. Posterior spacer at C1-2 supported by cerclage wires, better characterized on same-day CT imaging. 3. Incompletely healed type II dens fracture, also better visualized on same-day CT imaging. 4. Multilevel advanced neural foraminal stenosis. 5. Degenerative anterolisthesis, C3-4, 3 mm. I personally viewed and interpreted these images and I have reviewed and approved this report. CHEST PORTABLE Final Result IMPRESSION: 1. Multifocal bibasilar alveolar disease, favoring evidence of pneumonia in the appropriate clinical setting. 2. Probable small effusions. 3. Suspect a background of interstitial fibrosis. I personally viewed and interpreted these images and I have reviewed and approved this report. Imaging: Results for orders placed or performed during the hospital encounter of 10/13/22 [facility] 7 - ED Result Value Ref Range Sodium 145 135 - 145 mmol/L Potassium 3.7 3.5 - 5.0 mmol/L Chloride 103 98 - 108 mmol/L CO2 31 21 - 31 mmol/L Glucose 149 (H) 70 - 99 mg/dL BUN 17 7 - 25 mg/dL Creatinine 0.45 (L) 0.50 - 1.20 mg/dL Bun/Crea Ratio 38 Osmolality (Calculated) 306 (H) 278 - 305 mOsm/kg Anion Gap 15 7 - 17 mmol/L eGFR, CKD-EPI, Female >90 >=60 mL/min/1.73m2 CBC AND ELECTRONIC DIFF Result Value Ref Range WBC Count 7.65 3.99 - 11.19 K/uL RBC Count 4.77 3.91 - 5.04 M/uL Hemoglobin 14.6 11.4 - 15.2 g/dL Hematocrit 45.9 (H) 34.9 - 44.3 % Mean Cell Volume 96.2 79.6 - 97.7 fL Mean Cell Hgb 30.6 25.9 - 33.9 pg Mean Cell Hgb Conc 31.8 31.4 - 35.9 g/dL RBC Distribution 13.6 10.8 - 14.9 % Platelet Count 199 150 - 393 K/uL Mean Platelet Volume 9.5 8.5 - 12.2 fL DIFF STATUS Electronic Differential Segs + Bands Auto 88.2 % Immature Grans % 4.7 % Lymphocyte % Auto 5.2 % Monocyte % Auto 1.2 % Eosinophil % Auto 0.0 % Basophil % Auto 0.7 % Nucleated RBC 0.0 <=0.2 /100 WBC Segs + Bands,Absolute Auto 6.75 1.64 - 7.28 K/uL Immature Grans Absolute 0.36 (H) <=0.08 K/uL Abs Lymph Auto 0.40 (L) 1.16 - 3.51 K/uL Abs Haskell Auto 0.09 (L) 0.22 - 0.87 K/uL Abs Eos Auto <0.04 0.00 - 0.42 K/uL Abs Baso Auto 0.05 0.00 - 0.15 K/uL C REACTIVE PROTEIN Result Value Ref Range C Reactive Protein 17.94 (H) <10.00 mg/L PT,INR,PTT Result Value Ref Range PT 12.1 11.9 - 14.2 sec INR 0.9 0.9 - 1.1 PTT 20.9 (L) 24.0 - 34.3 sec LACTATE, BLOOD Result Value Ref Range Lactate, Blood 2.1 (H) 0.5 - 1.6 mmol/L TYPE AND SCREEN Result Value Ref Range ABO/RH(D) TYPE A POS ANTIBODY SCREEN NEG URINALYSIS REFLEX TO CULTURE PERFORMABLE Result Value Ref Range Color Yellow Yellow Appearance Urine Clear Clear Glucose Urine Negative Negative Ketones Urine Negative Negative Specific Swengel Urine 1.010 1.001 - 1.035 Blood Urine Negative Negative pH Urine 7.0 5.0 - 7.0 Protein Urine Negative Negative Urobilinogen Urine 0.2 E.U./dL 0.2 E.U/dL, 1.0 E.U/dL Nitrites Urine Positive (A) Negative Leukocyte Esterase Trace (A) Negative RBC Urine 0-2 0 - 2 /HPF WBC Urine 0 - 5 0 - 5 /HPF Squamous/Epithelial Cells 0-2/hpf 0-2/hpf, 3-5/hpf = 1+ Bacteria PRESENT (A) ABSENT Hyaline Casts 0 - 2 (A) (none) /LPF Yeast/Fungi PRESENT (A) ABSENT ECG none Signed, Kelsie Wills MD documented in this encounterU [facility]* Certification - Kelsie Wills MD - 10/14/2022 1:10 PM EDT I certify that this patient requires inpatient services at this time. I anticipate the expected length of stay will include at least two midnights. Inpatient services are due to the following medicalconcerns extermity numbness . Plans for post hospitalization care will be discharge to home. [facility]07-25-2023 Emergency department Note* Loni Clark RN - 10/14/2022 10:06 AM EDT Pt screaming out to staff that she would like to leave. MD Dominguez aware. Pt was informed the team would like to admit her to provide PT and OT in hopes of restoring pts mobility. Pt angry and demanding to speak to a real doctor . [facility]07-25-2023 Emergency department Note* Loin Clark RN - 10/14/2022 10:06 AM EDT Pt screaming out to staff that she would like to leave. MD Dominguez aware. Pt was informed the team would like to admit her to provide PT and OT in hopes of restoring pts mobility. Pt angry and demanding to speak to a real doctor . * Ameena Johnson MD - 10/14/2022 10:02 AM EDT Signout: Miriam German 67 y.o. female with a chief complaint of No chief complaint on file. received in sign-out. Vitals: 10/14/22 0303 10/14/22 0600 10/14/22 0700 10/14/22 0800 BP: 142/73 154/75 160/77 Pulse: 98 94 103 Resp: 20 20 18 20 Temp: TempSrc: SpO2: 95% 96% 94% Height: The patient presents with: Bilateral upper and lower extremity weakness in the setting of recent [id number] at an outside hospital. MRI did show edema around the cord and did receive Decadron. Patient was transferred to [facility] for higher level care. Patient evaluated by Neurosurgery who recommended admission to Medicine and conservative treatment at this time and no evidence of acute operative emergency at this time. The expected disposition is: Admit to med Ameena Johnson MD Resident 10/14/22 1216 * Loni Clark RN - 10/14/2022 9:41 AM EDT Unable to obtain blood specimen at this time. PIV's do not draw back, straight sticks also unsuccessful. * Flash Farmer MD - 10/13/2022 10:20 PM EDT ED ATTENDING NOTE Chief Complaint: No chief complaint on file. HPI: Miriam German is a 67 y.o. female who presents with complaints of pain and weakness, she had C2 surgery at OSH and MRI today shows edema around the cord, she received decadron. By reports the team where the procedure was performed declined re admission and recommended transfer to [facility] for higher level of care. Past Medical History: No past medical history on file. Family history reviewed and noncontributory other than: History reviewed. No pertinent family history. Social history reviewed and noncontributory other than: Social History Socioeconomic History Marital status: Not on file Spouse name: Not on file Number of children: Not on file Years of education: Not on file Highest education level: Not on file Occupational History Not on file Tobacco Use Smoking status: Former Types: Cigarettes Quit date: 2013 Years since quittin.5 Smokeless tobacco: Never Vaping Use Vaping Use: Never used Substance and Sexual Activity Alcohol use: Not Currently Drug use: Not Currently Sexual activity: Not on file Other Topics Concern Not on file Social History Narrative Not on file Social Determinants of Health Financial Resource Strain: Not on file Food Insecurity: Not on file Transportation Needs: Not on file Physical Activity: Not on file Stress: Not on file Social Connections: Not on file Intimate Partner Violence: Not on file Housing Stability: Not on file Vital Signs: BP 165/78 Pulse 100 Temp 97.7 F (36.5 C) (Oral) Resp 20 Ht 1.626 m (5' 4 ) SpO2 97% Smoking Status Former Pertinent Exam: Laying supine, no acute distress Assessment/Plan/Disposition: Medical Decision Making Plan for STAT NSG consultation, patient with swelling of the spinal cord that puts her at risk for paralysis and compromise of her respiratory function. Plan for further recommendations and continuedneuro checks. Amount and/or Complexity of Data Reviewed Discussion of management or test interpretation with external provider(s): Neurosurgery Risk Decision regarding hospitalization. Risk Details: High risk for permanent paralysis and compromise of airway function On 10/13/2022 I saw and examined the patient. I discussed the history and examination with the resident physician and I agree with the plan of care. Flash Farmer MD ED Attending Physician Flash Farmer MD 10/13/222223 * Willow Lindquist RN - 10/13/2022 9:54 PM EDT Pt arrives from OSH via medics for numbness/tingling, and weakness to all 4 extremities after having surgery to neck 4 weeks ago. Pt reports pain to extremities when touched. Pt alert and oriented and in NAD at this time. Dr. Suarez at bedside at this time. * Monalisa Suarez MD - 10/13/2022 9:52 PM EDT EMERGENCY DEPARTMENT ENCOUNTER HISTORY OF PRESENT ILLNESS Miriam German is a 67 y.o. female with a past medical history of C2 fracture s/p fusion approximately 1 month ago who presents with chief complaint of No chief complaint on file. Patient presents as an OSH transfer with progressively worsening bilateral UE/LE weakness and numbness since surgery approximately 1 month ago for a C2 fracture. She was seen by her surgeon post operatively. Over the last day she has had worsening sensory changes in her UE/LE. No saddle anesthesia,bowel or bladder incontinence. She denies any fevers, chills, chest pain, shortness of breath, abdominal pain, nausea, vomiting, or any other acute concerns at this time. She was transferred for neurosurgery evaluation after MRI showed concern for cord edema and fluid collection. Other hospitals did decline patient for evaluation. PAST MEDICAL HISTORY No past medical history on file. SURGICAL HISTORY No past surgical history on file. CURRENT MEDICATIONS Current Outpatient Medications Medication Sig amLODIPine 2.5 MG tablet Take 1 tablet by mouth daily. predniSONE 10 MG tablet TAKE 1 TABLET BY MOUTH EVERY MORNING AND 1/2 TABLET EVERY EVENING ALLERGIES No Known Allergies Family history reviewed and noncontributory to presenting problem other than that mentioned in HPI Social history reviewed and noncontributory to presenting problem other than that mentioned in HPI REVIEW OF SYSTEMS Reviewed and negative unless otherwise stated in HPI. PHYSICAL EXAM VITAL SIGNS: BP 165/78 Pulse 100 Temp 97.7 F (36.5 C) (Oral) Resp 20 Ht 1.626 m (5' 4 ) SpO2 97% Smoking Status Former Physical Exam Physical Exam Constitutional: General: She is not in acute distress. Appearance: She is obese. She is not toxic-appearing. Comments: Chronically ill appearing. HENT: Head: Normocephalic and atraumatic. Nose: Nose normal. No congestion. Mouth/Throat: Mouth: Mucous membranes are moist. Pharynx: Oropharynx is clear. No oropharyngeal exudate or posterior oropharyngeal erythema. Eyes: General: No scleral icterus. Right eye: No discharge. Left eye: No discharge. Extraocular Movements: Extraocular movements intact. Conjunctiva/sclera: Conjunctivae normal. Pupils: Pupils are equal, round, and reactive to light. Cardiovascular: Rate and Rhythm: Normal rate and regular rhythm. Pulses: Normal pulses. Heart sounds: No murmur heard. Pulmonary: Effort: Pulmonary effort is normal. No respiratory distress. Breath sounds: Normal breath sounds. No stridor. No wheezing or rales. Comments: On home 3L NC Abdominal: General: Abdomen is flat. There is no distension. Palpations: Abdomen is soft. Tenderness: There is no abdominal tenderness. There is no guarding or rebound. Musculoskeletal: General: Swelling present. No tenderness, deformity or signs of injury. Right lower leg: Edema present. Left lower leg: Edema present. Skin: General: Skin is warm and dry. Capillary Refill: Capillary refill takes less than 2 seconds. Coloration: Skin is not jaundiced or pale. Neurological: General: No focal deficit present. Mental Status: She is oriented to person, place, and time. Sensory: Sensory deficit (BL UE/LE decreased sensation to touch.) present. Motor: Weakness (strength in bilateral UE/LE 4/5) present. Deep Tendon Reflexes: Reflexes normal (patellar and achilles reflexes 1+ bilaterally). ED COURSE & MEDICAL DECISION MAKING Pertinent Labs & Imaging studies if performed were reviewed. (See chart for details) Medication list reviewed. Miriam German is a 67 y.o. female with a past medical history of C2 fracture s/p fusion approximately 1 month ago who presents with chief complaint of No chief complaint on file. On arrival the patient was hemodynamically stable, afebrile, chronically ill appearing, and in no acute distrss. She was saturating 97% on home 3L via NC. Exam notable for bilateral upper and lower extremity weakness, strength approximately 3/5 bilaterally, diminished sensation in the bilateral UE/LE, patellar and achilles reflexes 1+ bilaterally. Heart regular rate and rhythm, lungs clear to auscultation bilaterally. Lab work ordered and pending at this time. Neurosurgery consulted due to concern for potential cord edema and fluid collection. MRI obtained from [facility] and reads reviewed. Concern for cauda equina vs spinal epidural abscess (although no infectious symptoms) vs cord edema leading to worsening neurologic function. At this time I will be signing out care of this patient to the oncoming resident to follow up on imaging and lab work, as well as neurosurgery recommendations and final disposition, admission. ED Course and Medical Decision Making: Medications oxyCODONE (ROXICODONE) tablet 5 mg (has no administration in time range) Independent Historian: None External Data Reviewed: [] Labs. [x] Radiology. [] ECG. [x] Notes. ECG/medicine tests: ordered and independent interpretation performed. Decision- making details documented above. Labs: ordered. Decision-making details documented above. Radiology: ordered and independent interpretation performed. Decision-making details documented above. Discussion of management or test interpretation with external provider(s): Neurosurgery Risk Low: [] OTC drugs. [] Minor surgery with no identified risk factors. Moderate: [] Prescription drug management. [] Minor surgery with identified risk factors. [] Elective major surgery with no identified risk factors. [] Diagnosis or treatment significantly limited by social determinants of health. High: [] Parenteral controlled substances. [] Drug therapy requiring intensive monitoring for toxicity. [x] Decision regarding hospitalization. [] Decision not to resuscitate or to de-escalate care because of poor prognosis. [] Elective major surgery with identified risk factors. [] Emergency major surgery. Differential Diagnosis includes but is not limited to: cauda equina syndrome, cord edema, spinal epidural abscess Initial Plan: Labs: MRSA/MSSA, Blood cultures, lactate, CBC, Chem7, ESR, CRP, PT/PTT/INR, UA with reflex Imaging: CXR, CT C Spine, XR cervical spine Therapeutics: Oxycodone Consults: Neurosurgery Orders Placed This Encounter SCREEN: MRSA/MSSA BLOOD CULTURE, PERIPHERAL, 1ST SITE BLOOD CULTURE, PERIPHERAL 2ND SITE BLOOD CULTURE BLOOD CULTURE XR CHEST PORTABLE CT SPINE CERVICAL WITHOUT CONTRAST XR SPINE CERVICAL 4 VIEWS [facility] 7 - ED CBC, EDIF, PLATELET CBC AND ELECTRONIC DIFF RAINBOW DRAW GOLD TOP TUBE MINT GREEN TOP TUBE LAVENDER TOP TUBE LT BLUE TOP TUBE SEDIMENTATION RATE, AUTOMATED C REACTIVE PROTEIN PT,INR,PTT LACTATE, BLOOD TYPE AND SCREEN oxyCODONE (ROXICODONE) tablet 5 mg URINALYSIS REFLEX TO CULTURE URINALYSIS REFLEX TO CULTURE PERFORMABLE EXTRA MICRO Impression: Numbness/Weakness C1 cord edema Reassessment/Updates: ED Course as of 10/14/22 1507 Tue Oct 14, 2022 1506 SO: s/p C2 fixation, central cord syndrome. Admitted to medicine for PT/OT. UTI on AB Disposition: Admit pending NSGY recs This patient was discussed with the attending physician who was in the immediate care area during the evaluation and decision making process. This note was dictated using [employer] Dictation Software. Attempts at proofreading have been made, however errors may still occasionally occur. Monalisa Suarez MD Resident 10/13/22 3536 * Linnea Caro RN - 10/13/2022 9:40 PM EDT Bed: E041 Expected date: 10/13/22 Expected time: 12:00 AM Means of arrival: Comments: [facility] * Willow Lindquist RN - 10/13/2022 9:30 PM EDT Transfer Center Intake Note [phone] Triage Line [phone] Bed Placement REMINDER to TC top lift trimmer: please request facesheet, images, and discharge summary if inpatient. Pt Current Location/ Level of care: ED If Inpatient transfer, Date of admission to OSH: N/A Clinical reason for transfer: Need for neurosurg eval HPI: 1 mo ago C-2 ([facility]) surgery, spine fusion. Tingling, numbness bilat hands. Progressive numbness/tingling to LE. Follow up and parted ways per family. Nonambulatory since surgery. Unable to lift legs off bed or feed self. [facility] refused pt. [facility] spoke with collegue. States since pt does not want to follow with Dr. Faulkner [facility] Morbid obesity, UTI, sepsis, HTN, VS: 122/51 88 98% on 2 L/nc (baseline) 18 98.0 Pertinent Labs, EKG and images: MRI: cervical cord edema C1, suspected old odontoid fx T-6 compression fx MRI brain: negative. 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 female with a chief complaint of No chief complaint on file. received in sign-out. Vitals: 10/14/22 0303 10/14/22 0600 10/14/22 0700 10/14/22 0800 BP: 142/73 154/75 160/77 Pulse: 98 94 103 Resp: 20 20 18 20 Temp: TempSrc: SpO2: 95% 96% 94% Height: The patient presents with: Bilateral upper and lower extremity weakness in the setting of recent [id number] at an outside hospital. MRI did show edema around the cord and did receive Decadron. Patient was transferred to [facility] for higher level care. Patient evaluated by Neurosurgery who recommended admission to Medicine and conservative treatment at this time and no evidence of acute operative emergency at this time. The expected disposition is: Admit to med Ameena Johnson MD Resident 10/14/22 1216 [facility] Work Phone: [phone] Emergency department Note* Loni Clark RN - 10/14/2022 9:41 AM EDT Unable to obtain blood specimen at this time. PIV's do not draw back, straight sticks also unsuccessful. [facility]07-25-2023 Consult note* Vonnie Alfonso MD - 10/14/2022 3:52 AM EDTAssociated Order(s): IP CONSULT TO SURGERY - NEURO Neurosurgery Consult Note Reason for Consultation: transfer from OSH for worsening neuro exam after cervical spine surgery aweeks ago HPI Ms. Miriam German is a 67 y.o. female w/ hx of fall on 09/06/22 resulting in instability of reportedly known type II dens fx s/p C1-2 fusion w/ cerclage at [facility] in [place] on 09/15/22, which was unfortunately complicated by BUE and BLE weakness and paresthesias. Patient now presents as a transfer from an OSH with continued weakness. MRI C spine from OSH on 10/13 demonstrates likely postop seroma and some STIR signal cord change, likely from incompletely resolved edema in the subacute postoperative period. She denies any fevers or signs of infection. Pt denies any bowel or bladder incontinence. She takes ASA 81 for heart health. ROS: All other systems are negative except as mentioned in HPI No past medical history on file. No past surgical history on file. History reviewed. No pertinent family history. Social History Tobacco Use Smoking status: Former Types: Cigarettes Quit date: 2013 Years since quittin.5 Smokeless tobacco: Never Vaping Use Vaping Use: Never used Substance Use Topics Alcohol use: Not Currently Drug use: Not Currently Allergies No Known Allergies Infusions Scheduled Meds dexAMETHasone 4 mg Intravenous Q6H PRN Meds: Acetaminophen, oxyCODONE Home Meds Prior to Admission medications Medication Sig Start Date End Date Taking? Authorizing Provider amLODIPine 2.5 MG tablet Take 1 tablet by mouth daily. 01/21/22 Yes Historical Provider predniSONE 5 MG tablet Take 1 tablet by mouth daily. Historical Provider Vitals Temp: [97.7 F (36.5 C)] 97.7 F (36.5 C) Pulse (Heart Rate): [94-116] 96 Resp Rate: [16-20] 18 BP: (142-173)/(73-101) 171/79 O2 Sat (%): [93 %-98 %] 98 % Physical General: NAD Cards: no obvious JVD Resp: no stridor or retractions Abd: soft NTND Ext: no edema Mental Status: Awake, alert, oriented x3. Cooperative, follows commands. Language fluent. Cranial Nerves: PERRL, EOMI bilaterally. Facial sensation intact in all 3 branches. Facial movementintact and symmetric. SCM/Trap strength 5/5 bilaterally. Tongue is midline. Motor Function: SA EF EE WF WE FG DI HF KF KE PF DF Right 3 4+ 4+ 4- 4- 4- 4- 3 4 4 4 4- Left 2 4 4 3 3 3 3 3 4 4 4 4- Sensory Function: Sensation is intact to light touch. Labs WBC/Hgb/Hct/Plts: 7.65/14.6/45.9/199 (10/14 301) Na/K+/Phos/Mg/Ca: 145/3.7/--/--/-- (10/14 301) Bun/Creat/Cl/CO2/Glucose: 17/0.45/103/31/149 (10/14 301) Recent Labs 10/14/22301 PT 12.1 INR 0.9 Imaging: CT SPINE CERVICAL WITHOUT CONTRAST Final Result IMPRESSION: 1. Recent postoperative changes of the cervical spine at C1-2, including posterior spacer supported by cerclage wires and incompletely fused bone graft material. An operative bed fluid collection of uncertain sterility is again seen, unchanged from recent MR imaging, measuring up to 3.7 cm in greatest dimension. Correlation is necessary to guide management. 2. Incompletely healed type II dens fracture with mild residual distraction. 3. Advanced degenerative changes cervical spine contributing to multilevel spinal canal and neuroforaminal stenosis. I personally viewed and interpreted these images and I have reviewed and approved this report. SPINE CERVICAL 4 VIEWS Final Result IMPRESSION: 1. Assessment limited by limitations in positioning and body habitus. 2. Posterior spacer at C1-2 supported by cerclage wires, better characterized on same-day CT imaging. 3. Incompletely healed type II dens fracture, also better visualized on same-day CT imaging. 4. Multilevel advanced neural foraminal stenosis. 5. Degenerative anterolisthesis, C3-4, 3 mm. I personally viewed and interpreted these images and I have reviewed and approved this report. CHEST PORTABLE Final Result IMPRESSION: 1. Multifocal bibasilar alveolar disease, favoring evidence of pneumonia in the appropriate clinical setting. 2. Probable small effusions. 3. Suspect a background of interstitial fibrosis. I personally viewed and interpreted these images and I have reviewed and approved this report. A/P: Miriam German is a 67 y.o. female w/ hx of fall on 09/06/22 resulting in instability of reportedly known type II dens fx s/p C1-2 fusion w/ cerclage at [facility] in [place] on 09/15/22, which was unfortunately complicated by BUE and BLE weakness and paresthesias. Patient now presents as a transfer from an OSH with continued weakness. MRI C spine from OSH on 10/13 demonstrates likely postop seroma and some STIR signal cord change, likely from incompletely resolved edema in the subacute postoperative period. - Recommend general medicine admission for pain control - PT/OT - No acute neurosurgical intervention at this time Staff: Arianna Covering: NS3 ([id number]) ## neurosurgery coverage changes at 0530/1730; if 0530 or 1730 has passed since original consult note placed, please page covering pager above ## [facility] Work Phone: [phone] Consult note* Vonnie Alfonso MD - 10/14/2022 3:52 AM EDTAssociated Order(s): IP CONSULT TO SURGERY - NEURO Neurosurgery Consult Note Reason for Consultation: transfer from OSH for worsening neuro exam after cervical spine surgery aweeks ago HPI Ms. Miriam German is a 67 y.o. female w/ hx of fall on 09/06/22 resulting in instability of reportedly known type II dens fx s/p C1-2 fusion w/ cerclage at [facility] in [place] on 09/15/22, which was unfortunately complicated by BUE and BLE weakness and paresthesias. Patient now presents as a transfer from an OSH with continued weakness. MRI C spine from OSH on 10/13 demonstrates likely postop seroma and some STIR signal cord change, likely from incompletely resolved edema in the subacute postoperative period. She denies any fevers or signs of infection. Pt denies any bowel or bladder incontinence. She takes ASA 81 for heart health. ROS: All other systems are negative except as mentioned in HPI No past medical history on file. No past surgical history on file. History reviewed. No pertinent family history. Social History Tobacco Use Smoking status: Former Types: Cigarettes Quit date: 2013 Years since quittin.5 Smokeless tobacco: Never Vaping Use Vaping Use: Never used Substance Use Topics Alcohol use: Not Currently Drug use: Not Currently Allergies No Known Allergies Infusions Scheduled Meds dexAMETHasone 4 mg Intravenous Q6H PRN Meds: Acetaminophen, oxyCODONE Home Meds Prior to Admission medications Medication Sig Start Date End Date Taking? Authorizing Provider amLODIPine 2.5 MG tablet Take 1 tablet by mouth daily. 01/21/22 Yes Historical Provider predniSONE 5 MG tablet Take 1 tablet by mouth daily. Historical Provider Vitals Temp: [97.7 F (36.5 C)] 97.7 F (36.5 C) Pulse (Heart Rate): [94-116] 96 Resp Rate: [16-20] 18 BP: (142-173)/(73-101) 171/79 O2 Sat (%): [93 %-98 %] 98 % Physical General: NAD Cards: no obvious JVD Resp: no stridor or retractions Abd: soft NTND Ext: no edema Mental Status: Awake, alert, oriented x3. Cooperative, follows commands. Language fluent. Cranial Nerves: PERRL, EOMI bilaterally. Facial sensation intact in all 3 branches. Facial movementintact and symmetric. SCM/Trap strength 5/5 bilaterally. Tongue is midline. Motor Function: SA EF EE WF WE FG DI HF KF KE PF DF Right 3 4+ 4+ 4- 4- 4- 4- 3 4 4 4 4- Left 2 4 4 3 3 3 3 3 4 4 4 4- Sensory Function: Sensation is intact to light touch. Labs WBC/Hgb/Hct/Plts: 7.65/14.6/45.9/199 (10/14 301) Na/K+/Phos/Mg/Ca: 145/3.7/--/--/-- (10/14 301) Bun/Creat/Cl/CO2/Glucose: 17/0.45/103/31/149 (10/14 301) Recent Labs 10/14/22301 PT 12.1 INR 0.9 Imaging: CT SPINE CERVICAL WITHOUT CONTRAST Final Result IMPRESSION: 1. Recent postoperative changes of the cervical spine at C1-2, including posterior spacer supported by cerclage wires and incompletely fused bone graft material. An operative bed fluid collection of uncertain sterility is again seen, unchanged from recent MR imaging, measuring up to 3.7 cm in greatest dimension. Correlation is necessary to guide management. 2. Incompletely healed type II dens fracture with mild residual distraction. 3. Advanced degenerative changes cervical spine contributing to multilevel spinal canal and neuroforaminal stenosis. I personally viewed and interpreted these images and I have reviewed and approved this report. SPINE CERVICAL 4 VIEWS Final Result IMPRESSION: 1. Assessment limited by limitations in positioning and body habitus. 2. Posterior spacer at C1-2 supported by cerclage wires, better characterized on same-day CT imaging. 3. Incompletely healed type II dens fracture, also better visualized on same-day CT imaging. 4. Multilevel advanced neural foraminal stenosis. 5. Degenerative anterolisthesis, C3-4, 3 mm. I personally viewed and interpreted these images and I have reviewed and approved this report. CHEST PORTABLE Final Result IMPRESSION: 1. Multifocal bibasilar alveolar disease, favoring evidence of pneumonia in the appropriate clinical setting. 2. Probable small effusions. 3. Suspect a background of interstitial fibrosis. I personally viewed and interpreted these images and I have reviewed and approved this report. A/P: Miriam German is a 67 y.o. female w/ hx of fall on 09/06/22 resulting in instability of reportedly known type II dens fx s/p C1-2 fusion w/ cerclage at [facility] on 09/15/22, which was unfortunately complicated by BUE and BLE weakness and paresthesias. Patient now presents as a transfer from an OSH with continued weakness. MRI C spine from OSH on 10/13 demonstrates likely postop seroma and some STIR signal cord change, likely from incompletely resolved edema in the subacute postoperative period. - Recommend general medicine admission for pain control - PT/OT - No acute neurosurgical intervention at this time Staff: Arianna Covering: JITENDRA ([id number]) ## neurosurgery coverage changes at 30/173; if 0530 or 1730 has passed since original consult note placed, please page covering pager above ## [facility]* Flash Farmer MD - 10/13/2022 10:20 PM EDT ED ATTENDING NOTE Chief Complaint: No chief complaint on file. HPI: Miriam German is a 67 y.o. female who presents with complaints of pain and weakness, she had C2 surgery at OSH and MRI today shows edema around the cord, she received decadron. By reports the team where the procedure was performed declined re admission and recommended [facility] for higher level [facility] care. Past Medical History: No past medical history on file. Family history reviewed and noncontributory other than: History reviewed. No pertinent family history. Social history reviewed and noncontributory other than: Social History Socioeconomic History Marital status: Not on file Spouse name: Not on file Number of children: Not on file Years of education: Not on file Highest education level: Not on file Occupational History Not on file Tobacco Use Smoking status: Former Types: Cigarettes Quit date: 2013 Years since quittin.5 Smokeless tobacco: Never Vaping Use Vaping Use: Never used Substance and Sexual Activity Alcohol use: Not Currently Drug use: Not Currently Sexual activity: Not on file Other Topics Concern Not on file Social History Narrative Not on file Social Determinants of Health Financial Resource Strain: Not on file Food Insecurity: Not on file Transportation Needs: Not on file Physical Activity: Not on file Stress: Not on file Social Connections: Not on file Intimate Partner Violence: Not on file Housing Stability: Not on file Vital Signs: BP 165/78 Pulse 100 Temp 97.7 F (36.5 C) (Oral) Resp 20 Ht 1.626 m (5' 4 ) SpO2 97% Smoking Status Former Pertinent Exam: Laying supine, no acute distress Assessment/Plan/Disposition: Medical Decision Making Plan for STAT NSG consultation, patient with swelling of the spinal cord that puts her at risk for paralysis and compromise of her respiratory function. Plan for further recommendations and continuedneuro checks. Amount and/or Complexity of Data Reviewed Discussion of management or test interpretation with external provider(s): Neurosurgery Risk Decision regarding hospitalization. Risk Details: High risk for permanent paralysis and compromise of airway function On 10/13/2022 I saw and examined the patient. I discussed the history and examination with the resident physician and I agree with the plan of care. Flash Farmer MD ED Attending Physician Flash Farmer MD 10/13/222 [facility] Work Phone: [phone] Emergency department Note* Willow Lindquist RN - 10/13/2022 9:54 PM EDT Pt arrives from OSH via medics for numbness/tingling, and weakness to all 4 extremities after having surgery to neck 4 weeks ago. Pt reports pain to extremities when touched. Pt alert and oriented and in NAD at this time. Dr. Suarez at bedside at this time. [facility]2023 Physician Emergency department Note* Monalisa Suarez MD - 10/13/2022 9:52 PM EDT EMERGENCY DEPARTMENT ENCOUNTER HISTORY OF PRESENT ILLNESS Miriam German is a 67 y.o. female with a past medical history of C2 fracture s/p fusion approximately 1 month ago who presents with chief complaint of No chief complaint on file. Patient presents as an OSH transfer with progressively worsening bilateral UE/LE weakness and numbness since surgery approximately 1 month ago for a C2 fracture. She was seen by her surgeon post operatively. Over the last day she has had worsening sensory changes in her UE/LE. No saddle anesthesia,bowel or bladder incontinence. She denies any fevers, chills, chest pain, shortness of breath, abdominal pain, nausea, vomiting, or any other acute concerns at this time. She was transferred for neurosurgery evaluation after MRI showed concern for cord edema and fluid collection. Other hospitals did decline patient for evaluation. PAST MEDICAL HISTORY No past medical history on file. SURGICAL HISTORY No past surgical history on file. CURRENT MEDICATIONS Current Outpatient Medications Medication Sig amLODIPine 2.5 MG tablet Take 1 tablet by mouth daily. predniSONE 10 MG tablet TAKE 1 TABLET BY MOUTH EVERY MORNING AND 1/2 TABLET EVERY EVENING ALLERGIES No Known Allergies Family history reviewed and noncontributory to presenting problem other than that mentioned in HPI Social history reviewed and noncontributory to presenting problem other than that mentioned in HPI REVIEW OF SYSTEMS Reviewed and negative unless otherwise stated in HPI. PHYSICAL EXAM VITAL SIGNS: BP 165/78 Pulse 100 Temp 97.7 F (36.5 C) (Oral) Resp 20 Ht 1.626 m (5' 4 ) SpO2 97% Smoking Status Former Physical Exam Physical Exam Constitutional: General: She is not in acute distress. Appearance: She is obese. She is not toxic-appearing. Comments: Chronically ill appearing. HENT: Head: Normocephalic and atraumatic. Nose: Nose normal. No congestion. Mouth/Throat: Mouth: Mucous membranes are moist. Pharynx: Oropharynx is clear. No oropharyngeal exudate or posterior oropharyngeal erythema. Eyes: General: No scleral icterus. Right eye: No discharge. Left eye: No discharge. Extraocular Movements: Extraocular movements intact. Conjunctiva/sclera: Conjunctivae normal. Pupils: Pupils are equal, round, and reactive to light. Cardiovascular: Rate and Rhythm: Normal rate and regular rhythm. Pulses: Normal pulses. Heart sounds: No murmur heard. Pulmonary: Effort: Pulmonary effort is normal. No respiratory distress. Breath sounds: Normal breath sounds. No stridor. No wheezing or rales. Comments: On home 3L NC Abdominal: General: Abdomen is flat. There is no distension. Palpations: Abdomen is soft. Tenderness: There is no abdominal tenderness. There is no guarding or rebound. Musculoskeletal: General: Swelling present. No tenderness, deformity or signs of injury. Right lower leg: Edema present. Left lower leg: Edema present. Skin: General: Skin is warm and dry. Capillary Refill: Capillary refill takes less than 2 seconds. Coloration: Skin is not jaundiced or pale. Neurological: General: No focal deficit present. Mental Status: She is oriented to person, place, and time. Sensory: Sensory deficit (BL UE/LE decreased sensation to touch.) present. Motor: Weakness (strength in bilateral UE/LE 4/5) present. Deep Tendon Reflexes: Reflexes normal (patellar and achilles reflexes 1+ bilaterally). ED COURSE & MEDICAL DECISION MAKING Pertinent Labs & Imaging studies if performed were reviewed. (See chart for details) Medication list reviewed. Miriam German is a 67 y.o. female with a past medical history of C2 fracture s/p fusion approximately 1 month ago who presents with chief complaint of No chief complaint on file. On arrival the patient was hemodynamically stable, afebrile, chronically ill appearing, and in no acute distrss. She was saturating 97% on home 3L via NC. Exam notable for bilateral upper and lower extremity weakness, strength approximately 3/5 bilaterally, diminished sensation in the bilateral UE/LE, patellar and achilles reflexes 1+ bilaterally. Heart regular rate and rhythm, lungs clear to auscultation bilaterally. Lab work ordered and pending at this time. Neurosurgery consulted due to concern for potential cord edema and fluid collection. MRI obtained from [facility] and reads reviewed. Concern for cauda equina vs spinal epidural abscess (although no infectious symptoms) vs cord edema leading to worsening neurologic function. At this time I will be signing out care of this patient to the oncoming resident to follow up on imaging and lab work, as well as neurosurgery recommendations and final disposition, admission. ED Course and Medical Decision Making: Medications oxyCODONE (ROXICODONE) tablet 5 mg (has no administration in time range) Independent Historian: None External Data Reviewed: [] Labs. [x] Radiology. [] ECG. [x] Notes. ECG/medicine tests: ordered and independent interpretation performed. Decision- making details documented above. Labs: ordered. Decision-making details documented above. Radiology: ordered and independent interpretation performed. Decision-making details documented above. Discussion of management or test interpretation with external provider(s): Neurosurgery Risk Low: [] OTC drugs. [] Minor surgery with no identified risk factors. Moderate: [] Prescription drug management. [] Minor surgery with identified risk factors. [] Elective major surgery with no identified risk factors. [] Diagnosis or treatment significantly limited by social determinants of health. High: [] Parenteral controlled substances. [] Drug therapy requiring intensive monitoring for toxicity. [x] Decision regarding hospitalization. [] Decision not to resuscitate or to de-escalate care because of poor prognosis. [] Elective major surgery with identified risk factors. [] Emergency major surgery. Differential Diagnosis includes but is not limited to: cauda equina syndrome, cord edema, spinal epidural abscess Initial Plan: Labs: MRSA/MSSA, Blood cultures, lactate, CBC, Chem7, ESR, CRP, PT/PTT/INR, UA with reflex Imaging: CXR, CT C Spine, XR cervical spine Therapeutics: Oxycodone Consults: Neurosurgery Orders Placed This Encounter SCREEN: MRSA/MSSA BLOOD CULTURE, PERIPHERAL, 1ST SITE BLOOD CULTURE, PERIPHERAL 2ND SITE BLOOD CULTURE BLOOD CULTURE XR CHEST PORTABLE CT SPINE CERVICAL WITHOUT CONTRAST XR SPINE CERVICAL 4 VIEWS CHM 7 - ED CBC, EDIF, PLATELET CBC AND ELECTRONIC DIFF RAINBOW DRAW GOLD TOP TUBE MINT GREEN TOP TUBE LAVENDER TOP TUBE LT BLUE TOP TUBE SEDIMENTATION RATE, AUTOMATED C REACTIVE PROTEIN PT,INR,PTT LACTATE, BLOOD TYPE AND SCREEN oxyCODONE (ROXICODONE) tablet 5 mg URINALYSIS REFLEX TO CULTURE URINALYSIS REFLEX TO CULTURE PERFORMABLE EXTRA MICRO Impression: Numbness/Weakness C1 cord edema Reassessment/Updates: ED Course as of 10/14/22 1507 Tue Oct 14, 2022 1506 SO: s/p C2 fixation, central cord syndrome. Admitted to medicine for PT/OT. UTI on AB Disposition: Admit pending NSGY recs This patient was discussed with the attending physician who was in the immediate care area during the evaluation and decision making process. This note was dictated using [employer] Dictation Software. Attempts at proofreading have been made, however errors may still occasionally occur. Monalisa Suarez MD Resident 10/13/223 [facility] Work Phone: [phone]) 630-644007-24-2023 Emergency department Note* Linnea Caro RN - 10/13/2022 9:40 PM EDT Bed: E041 Expected date: 10/13/22 Expected time: 12:00 AM Means of arrival: Comments[facility]* Willow Lindquist RN - 10/13/2022 9:30 PM EDT Transfer Center Intake Note [phone] Triage Line [phone] Bed Placement REMINDER to TC top lift trimmer: please request facesheet, images, and discharge summary if inpatient. Pt Current Location/ Level of care: ED If Inpatient transfer, Date of admission to OSH: N/A Clinical reason for transfer: Need for neurosurg eval HPI: 1 mo ago C-2 ([facility]) surgery, spine fusion. Tingling, numbness bilat hands. Progressive numbness/tingling to LE. Follow up and parted ways per family. Nonambulatory since surgery. Unable to lift legs off bed or feed self. [facility] States since pt does not want to follow with Dr. Faulkner [facility] Morbid obesity, UTI, sepsis, HTN, VS: 122/51 88 98% on 2 L/nc (baseline) 18 98.0 Pertinent Labs, EKG and images: MRI: cervical cord edema C1, suspected old odontoid fx T-6 compression fx MRI brain: negative. Normal WBC IV drips: Decadron, Tylenol Respiratory Support device: NC settings: 2 L Other equipment: Touring Production Manager Isolation None and ADA needs: bed bound Triaged to: TBD If PCU, please describe reason: Evelyn Quinonez, RN [facility]07-14-2023 Evaluation note* Encounter Date Diagnosis Assessment Notes Treatment Notes Treatment Clinical Notes Sep, Closed odontoid fracture with type II morphology and anterior displacement, initial encounter (ICD-10 - S12.110A) I had a long discussion with the patient's son and significant other. We all agree the patient is given exceedingly poor effort and in essence Appears to be giving up. I have recommended a psychiatry consult. I recommend that this patient be tapered down off of pain medication to oxycodone every 4 hours is unacceptable at this point. Her x-ray which was taken just over a week ago looks quite good with regard to hardware I shared this with the family. I would like to see the patient again in about 2 months but I would like to look at another x-ray of her neck in 1 month and this was passed on to the nursing team. [facility] Other 07-06-2023 Progress note Author Tom Hill [facility] September 26, 2022 11:45am Note Date/Time September 25, 2022 12:45 pm [facility] [address] [place] [address] Physiatry(Rehab) Progress Note Signed Patient: Miriam German MR#: [id number] : 1955 Acct:[id number] Age/Sex: 67 / F Adm Date: 3 Loc: Room: [address] [place] [address] Type: ADM IN Attending Dr: Tom Hill MD Copies to: ~ <Rubia George APRN - Last Filed: 09/25/22 12:45> Date of Service: 09/25/2022 Subjective <Rubia George APRN - Last Filed: 09/25/22 12:45> Subjective Narrative: Ms. German is a 67 year old female with medical history of COVID-19 long- hauler, COPD, obstructive sleep apnea, rheumatoid arthritis on chronic prednisone admitted to the rehabilitation unit with cervical myelopathy after a C2 fracture and operative fixation. She presented to [facility] 2 weeks ago, 09/05 with increased falls and weakness. Eventual MRI imaging demonstrated C2 fracture, and subsequent flexionand extension films confirmed instability. She was transferred to [facility] 09/10 for NSGY evaluation/treatment. After medical clearance, underwent C2 sublaminar wire with allograft fusion 09/15. Postoperative course without significant complications aside from pain/anxiety. Her respiratory status is stable. Home prednisone is on hold until completes decadron taper. Cleared for DVT prophylaxis. Anxious, tearful on admission, repots 10/10 pain. RN called requesting new orders. Interval History: Patient is resting in bed on assessment. Reports no acute overnight events. Pain is tolerable at rest. States she is tired after the therapy. Continues to require significant assistance, although does demonstrate some improvement. Remains nonambulatory. is finalizing SNF admission. [facility] Chronic conditions as above are stable. Review of Systems <Rubia George APRN - Last Filed: 09/25/22 12:45> Review of Systems All other systems reviewed & are negative unless noted below or in HPI Exam <Rubia George APRN - Last Filed: 09/25/22 12:45> Physical Exam Vital Signs: Temp Pulse Resp BP Pulse Ox O2 Del Method O2 Flow Rate 97.9 F 88 18 159/88 H 100 Nasal Cannula 3 09/25/22 05:45 09/25/22 09:38 09/25/22 09:38 09/25/22 05:45 09/25/22 05:45 09/25/22 10:11 09/25/22 10:11 Narrative: Const General: cooperative, comfortable, no acute distress, well developed Nutritional Appearance: Normal body habitus Orientation: alert, awake and oriented x3 Limitations: None HEENT Head: normal to inspection, normocephalic and atraumatic Ears: hearing grossly normal bilaterally Nose: external nose normal Face and sinus: normal facial exam Eyes General: appearance normal, both eyes and all related structures Pupils: PERRL EOM: EOM intact bilaterally Neck Neck: normal visual inspection, full ROM, no lymphadenopathy and trachea midline Neck mass: No Chest Chest palpation & inspection: normal inspection of the chest Resp Effort & Inspection: normal respiratory effort, able to speak in complete sentences, symmetric chest movement and no cough Auscultation: clear to auscultation bilaterally Cardio Jugular venous pressure: no JVD Rhythm: Regular rhythm and rate GI: Inspection: normal to inspection Palpation: soft, no hepatosplenomegaly and nontender Auscultation: normal bowel sounds Musc Cervical Spine: normal cervical lordosis and cervical ROM normal Thoracic/Lumbar Spine: thoraco-lumbar ROM normal Skin General: no rashes or lesions noted Neuro General: patient alert, oriented x3, moves all extremities Cranial Nerves: PERRL Speech: speech normal Extrem Other: Bilateral upper and lower extremity numbness/tingling and weakness Psych Appearance: grossly normal Mental Status: WNL Mood: congruent mood Affect: normal affect Speech and Movement: speech and movement normal Attitude: cooperative Insight: Limited Judgment: Limited Objective <Rubia George APRN - Last Filed: 09/25/22 12:45> Labs 09/18/22 05:41 09/18/22 05:41 Medications and Allergies Allergies and Active Meds: Allergies No Known Allergies Allergy (Verified 09/10/22 17:55) Active Medications Generic Name Dose Route Start Last Admin Trade Name Freq PRN Reason Stop Dose Admin Acetaminophen 500 mg 09/17/22 16:18 09/24/22 08:20 Acetaminophen 500 Mg Tablet PO 09/17/23 16:17 500 mg Q4H PRN Administration Pain Al Hydrox/Mg Hydrox/Simethicone 30 ml 09/17/22 16:18 Mag Hydrox/Al Hydrox/Simeth 30 Ml Udc PO 09/17/23 16:17 Q4H PRN Indigestion Amlodipine Besylate 10 mg 09/22/22 09:00 09/25/22 08:27 Amlodipine 10 Mg Tablet PO 09/22/23 08:59 10 mg DAILY CECI Administration Bisacodyl 10 mg 09/17/22 16:18 Bisacodyl 10 Mg Supp.Rect AR 09/17/23 16:17 DAILY PRN Constipation Diazepam 2 mg 09/17/22 19:49 09/23/22 05:53 Diazepam 2 Mg Tablet PO 03/16/23 19:48 2 mg Q6H PRN Administration Spasms Docusate Sodium 100 mg 09/17/22 16:18 Docusate 100 Mg Capsule PO 09/17/23 16:17 BID PRN Constipation Docusate Sodium 283 mg 09/17/22 16:18 Docusate Enema 283 Mg/5 Ml Enema AR 09/17/23 16:17 DAILY PRN Constipation Famotidine 20 mg 09/17/22 21:00 09/25/22 08:27 Famotidine 20 Mg Tablet PO 09/17/23 20:59 Not Given Q12HR [facility] Heparin Sodium (Porcine) 5,000 unit 09/18/22 10:00 09/25/22 05:44 Heparin 5,000 Unit/Ml Vial SUBCUT 09/18/23 09:59 Not Given Q8HR CECI Lactulose 30 gm 09/17/22 16:18 Lactulose 20 Gm/30 Ml Udc PO 09/17/23 16:17 DAILY PRN Constipation Levalbuterol HCl 0.63 mg 09/19/22 12:00 09/25/22 09:38 Levalbuterol Hcl *Nf* 0.63 Mg/3 Ml Vial.Neb INHALATION 09/19/23 11:59 0.63 mg QID.RESP CECI Administration Protocol Oxycodone HCl 5 mg 09/18/22 07:08 09/23/22 05:53 Oxycodone Ir 5 Mg Tablet PO 5 mg Q4HR PRN Administration Pain Scale 4 - 7 Oxycodone HCl 10 mg 09/18/22 07:08 09/25/22 12:01 Oxycodone Ir 5 Mg Tablet PO 10 mg Q4HR PRN Administration Pain Scale 8 - 10 Prednisone 10 mg 09/24/22 14:05 09/25/22 08:27 Prednisone 10 Mg Tablet PO 09/24/23 14:04 10 mg BID CECI Administration Senna/Docusate Sodium 2 tab 09/17/22 21:00 09/25/22 08:27 Sennosides/Docusate 8.6-50mg 1 Tab Tablet PO 09/17/23 20:59 Not Given BID CECI Sennosides 2 tab 09/18/22 12:00 Sennosides 8.6 Mg Tablet PO 09/18/23 11:59 DAILY@12 PRN If no BM in 2 days Sodium Chloride 0 ml 09/17/22 16:18 Sodium Chloride 0.9 % 10 Ml Syringe IV-PUSH 09/17/23 16:17 PRN PRN Flush Assessment/Plan <Rubia George APRN - Last Filed: 09/25/22 12:45> Assessment/Plan (1) COVID-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: Code(s): U09.9 - Post COVID-19 condition, unspecified Status: Acute (2) Hypertension: Code(s): I10 - Essential (primary) hypertension Status: Acute (3) Rheumatoid arthritis: Code(s): M06.9 - Rheumatoid arthritis, unspecified Status: Acute (4) Sleep apnea: Code(s): G47.30 - Sleep apnea, unspecified Status: Acute (5) COPD (chronic obstructive pulmonary disease): Code(s): J44.9 - Chronic obstructive pulmonary disease, unspecified Status: Acute (6) Chronic respiratory failure with hypoxia and hypercapnia: Code(s): J96.11 - Chronic respiratory failure with hypoxia; J96.12 - Chronic respiratory failure with hypercapnia Status: Acute (7) C2 cervical fracture: Code(s): S12.100A - Unspecified displaced fracture of second cervical vertebra, initial encounter for closed fracture Status: Acute (8) Postoperative pain: Code(s): G89.18 - Other acute postprocedural pain Status: Acute (9) Impaired gait and mobility: Code(s): R26.89 - Other abnormalities of gait and mobility Status: Acute (10) Mild cognitive impairment: Code(s): G31.84 - Mild cognitive impairment of uncertain or unknown etiology Status: Acute (11) Cervical myelopathy: Code(s): G95.9 - Disease of spinal cord, unspecified Status: Acute Plan 67 y/o female with history as above including COVID-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, COPD, PANFILO, rheumatoid arthritis admitted to acute inpatient rehabilitation unit with multifactorial functional decline in the setting of traumatic spinal cord injury, cervical myelopathy, with unstable C2 fracture status post fixation/fusion. * No significant post exchange manager the last few days. Continues to prefer bed level exercises, feels like therapy is pushing her too much , although is able to move a little more than previously. Still nonambulatory. * Will be discharged to SNF of choice tomorrow, OR EMS to transport. Hospitalist to assist with management of comorbid medical conditions Pain control: Steroid taper. Wean opioids. Add low dose muscle relaxer Bowel and bladder: Continent. Monitor for retention. Skin: Monitor operative site in collar. Sleep: Optimize sleep/wake cycle. Avoid oversedation given PANFILO/pain meds. DVT prophylaxis: Continue heparin sq. Functional status: Heavy assist. Mild cognitive impairment, premorbid, will haveSLP follow if needed after evaluation. Needs to be compliant/understand nature of injury, precautions going forward. Maintain soft cervical collar. Ok for hard collar when out of bed if patient desires. Discharge planning: To SNF tomorrow per patient/family request I spent greater than 15 minutes for services, including [id number] encounter with the patient, discussion of the case, plan of care, and exam; and [id number] activities, such as reviewing pertinent lactation consultant documentation, recent therapy notes, laboratory and radiology studies, and discussion of case with care team including physician, nursing, hospice case manager, and therapists. More than 50 % of time was spent on patient/family counseling or coordination ofcare. <Tom Hill MD - Last Filed: 09/26/22 11:45> Assessment/Plan (1) COVID-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: (2) Hypertension: (3) Rheumatoid arthritis: (4) Sleep apnea: (5) COPD (chronic obstructive pulmonary disease): (6) Chronic respiratory failure with hypoxia and hypercapnia: (7) C2 cervical fracture: (8) Postoperative pain: (9) Impaired gait and mobility: (10) Mild cognitive impairment: (11) Cervical myelopathy: Plan: I completed a substantive portion of this encounter, the medical decision makingportion of this note in its entirety, including Allied health note review, nursing note review, lactation consultant note review, discussion with nursing and case management, and more than 50% of my time was spent on counseling and coordination of care, time spent 23 minutes Patient was personally seen by me, Dr. Hill, on the day of encounter, I reviewed the history and the relevant portions of the chart, including current orders, allied health and lactation consultant notes, labs/imaging and performed lea elements of exam and I formulated the plan of care and facilitated the medical decision making. D/c decadron. Ok for home prednisone as ordered. SNF tomorrow. Neuro exam stable. XR reviewed, good alignment. Documented By: Rubia George APRN 09/25/22 1 238 Signed By: <Electronically signed by GAETANO George> 09/25/22 1245 <Electronically signed by Tom Hill MD> 09/26/22 [address] [facility] Work Phone: 1(902) 322-414907-05-2023 Progress note Author Tom Hill [facility] September 24, 2022 10:18am Note Date/Time September 22, 2022 1:24p m [facility] [address] [place] [address] Physiatry(Rehab) Progress Note Signed Patient: Miriam German MR#: [id number] : 1955 Acct:[id number] Age/Sex: 67 / F Adm Date: 3 Loc: 5T Room: [id number] Type: ADM IN Attending Dr: Tom Hill MD Copies to: ~ <Rubia George APRN - Last Filed: 09/22/22 13:37> Date of Service: 09/22/2022 Subjective <Rubia George APRN - Last Filed: 09/22/22 13:37> Subjective Narrative: Ms. German is a 67 year old female with medical history of COVID-19 long- hauler, COPD, obstructive sleep apnea, rheumatoid arthritis on chronic prednisone admitted to the rehabilitation unit with cervical myelopathy after a C2 fracture and operative fixation. She presented to [facility] 2 weeks ago, 09/05 with increased falls and weakness. Eventual MRI imaging demonstrated C2 fracture, and subsequent flexionand extension films confirmed instability. She was transferred to [facility] 09/10 for NSGY evaluation/treatment. After medical clearance, underwent C2 sublaminar wire with allograft fusion 09/15. Postoperative course without significant complications aside from pain/anxiety. Her respiratory status is stable. Home prednisone is on hold until completes decadron taper. Cleared for DVT prophylaxis. Anxious, tearful on admission, repots 10/ pain. RN called requesting new orders. Interval History: Patient seen and examined in her room. She is alert and oriented, in no acute distress. Continues to report bilateral upper and lower extremity numbness and tingling, worse after therapy. Neck pain remains unchanged. Cervical x-ray results reviewed, unremarkable. She requests to be discharged to SNF, as she feels therapy is too much on acute rehab unit. Apparently, she wanted to be placed into SNF in the first place after the surgery. CM is working on referrals. Chronic conditions as above are stable. Review of Systems <Rubia George APRN - Last Filed: 09/22/22 13:37> Review of Systems All other systems reviewed & are negative unless noted below or in HPI Exam <Rubia George APRN - Last Filed: 09/22/22 13:37> Physical Exam Vital Signs: Temp Pulse Resp BP Pulse Ox O2 Del Method O2 Flow Rate 97.3 F L 82 20 138/85 100 Nasal Cannula 2 09/22/22 05:00 09/22/22 05:30 09/22/22 05:30 09/22/22 05:00 09/22/22 05:00 09/22/22 09:52 09/22/22 09:52 Narrative: Const General: cooperative, comfortable, no acute distress, well developed Nutritional Appearance: Normal body habitus Orientation: alert, awake and oriented x3 Limitations: None HEENT Head: normal to inspection, normocephalic and atraumatic Ears: hearing grossly normal bilaterally Nose: external nose normal Face and sinus: normal facial exam Eyes General: appearance normal, both eyes and all related structures Pupils: PERRL EOM: EOM intact bilaterally Neck Neck: normal visual inspection, full ROM, no lymphadenopathy and trachea midline Neck mass: No Chest Chest palpation & inspection: normal inspection of the chest Resp Effort & Inspection: normal respiratory effort, able to speak in complete sentences, symmetric chest movement and no cough Auscultation: clear to auscultation bilaterally Cardio Jugular venous pressure: no JVD Rhythm: Regular rhythm and rate GI: Inspection: normal to inspection Palpation: soft, no hepatosplenomegaly and nontender Auscultation: normal bowel sounds Musc Cervical Spine: normal cervical lordosis and cervical ROM normal Thoracic/Lumbar Spine: thoraco-lumbar ROM normal Skin General: no rashes or lesions noted Neuro General: patient alert, oriented x3, moves all extremities Cranial Nerves: PERRL Speech: speech normal Extrem Other: Bilateral upper and lower extremity numbness/tingling and weakness Psych Appearance: grossly normal Mental Status: WNL Mood: congruent mood Affect: normal affect Speech and Movement: speech and movement normal Attitude: cooperative Insight: Limited Judgment: Limited Objective <Rubia George APRN - Last Filed: 09/22/22 13:37> Labs 09/18/22 05:41 09/18/22 05:41 Medications and Allergies Allergies and Active Meds: Allergies No Known Allergies Allergy (Verified 09/10/22 17:55) Active Medications Generic Name Dose Route Start Last Admin Trade Name Trevorq PRN Reason Stop Dose Admin Acetaminophen 500 mg 09/17/22 16:18 09/21/22 10:09 Acetaminophen 500 Mg Tablet PO 09/17/23 16:17 500 mg Q4H PRN Administration Pain Al Hydrox/Mg Hydrox/Simethicone 30 ml 09/17/22 16:18 Mag Hydrox/Al Hydrox/Simeth 30 Ml Udc PO 09/17/23 16:17 Q4H PRN Indigestion Amlodipine Besylate 10 mg 09/22/22 09:00 09/22/22 08:50 Amlodipine 10 Mg Tablet PO 09/22/23 08:59 10 mg DAILY CECI Administration Bisacodyl 10 mg 09/17/22 16:18 Bisacodyl 10 Mg Supp.Rect AR 09/17/23 16:17 DAILY PRN Constipation Dexamethasone 4 mg 09/21/22 09:46 09/22/22 08:50 Dexamethasone 2 Mg Tablet PO 09/27/22 09:44 4 mg TID CECI Administration Taper Diazepam 2 mg 09/17/22 19:49 09/22/22 13:01 Diazepam 2 Mg Tablet PO 03/16/23 19:48 2 mg Q6H PRN Administration Spasms Docusate Sodium 100 mg 09/17/22 16:18 Docusate 100 Mg Capsule PO 09/17/23 16:17 BID PRN Constipation Docusate Sodium 283 mg 09/17/22 16:18 Docusate Enema 283 Mg/5 Ml Enema AR 09/17/23 16:17 DAILY PRN Constipation Famotidine 20 mg 09/17/22 21:00 09/22/22 08:50 Famotidine 20 Mg Tablet PO 09/17/23 20:59 20 mg Q12HR CECI Administration Heparin Sodium (Porcine) 5,000 unit 09/18/22 10:00 09/22/22 06:05 Heparin 5,000 Unit/Ml Vial SUBCUT 09/18/23 09:59 5,000 unit Q8HR [facility] Administration Lactulose 30 gm 09/17/22 16:18 Lactulose 20 Gm/30 Ml Udc PO 09/17/23 16:17 DAILY PRN Constipation Levalbuterol HCl 0.63 mg 09/19/22 12:00 09/22/22 10:48 Levalbuterol Hcl *Nf* 0.63 Mg/3 Ml Vial.Neb INHALATION 09/19/23 11:59 Not Given QID.RESP CECI Protocol Oxycodone HCl 5 mg 09/18/22 07:08 09/22/22 06:34 Oxycodone Ir 5 Mg Tablet PO 5 mg Q4HR PRN Administration Pain Scale 4 - 7 Oxycodone HCl 10 mg 09/18/22 07:08 09/22/22 13:01 Oxycodone Ir 5 Mg Tablet PO 10 mg Q4HR PRN Administration Pain Scale 8 - 10 Prednisone 10 mg 09/27/22 09:00 Prednisone 10 Mg Tablet PO 09/27/23 08:59 BID CECI Senna/Docusate Sodium 2 tab 09/17/22 21:00 09/22/22 08:50 Sennosides/Docusate 8.6-50mg 1 Tab Tablet PO 09/17/23 20:59 Not Given BID CECI Sennosides 2 tab 09/18/22 12:00 Sennosides 8.6 Mg Tablet PO 09/18/23 11:59 DAILY@12 PRN If no BM in 2 days Sodium Chloride 0 ml 09/17/22 16:18 Sodium Chloride 0.9 % 10 Ml Syringe IV-PUSH 09/17/23 16:17 PRN PRN Flush Assessment/Plan <Rubia GAETANO George - Last Filed: 09/22/22 13:37> Assessment/Plan (1) COVID-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: Code(s): U09.9 - Post COVID-19 condition, unspecified Status: Acute (2) Hypertension: Code(s): I10 - Essential (primary) hypertension Status: Acute (3) Rheumatoid arthritis: Code(s): M06.9 - Rheumatoid arthritis, unspecified Status: Acute (4) Sleep apnea: Code(s): G47.30 - Sleep apnea, unspecified Status: Acute (5) COPD (chronic obstructive pulmonary disease): Code(s): J44.9 - Chronic obstructive pulmonary disease, unspecified Status: Acute (6) Chronic respiratory failure with hypoxia and hypercapnia: Code(s): J96.11 - Chronic respiratory failure with hypoxia; J96.12 - Chronic respiratory failure with hypercapnia Status: Acute (7) C2 cervical fracture: Code(s): S12.100A - Unspecified displaced fracture of second cervical vertebra, initial encounter for closed fracture Status: Acute (8) Postoperative pain: Code(s): G89.18 - Other acute postprocedural pain Status: Acute (9) Impaired gait and mobility: Code(s): R26.89 - Other abnormalities of gait and mobility Status: Acute (10) Mild cognitive impairment: Code(s): G31.84 - Mild cognitive impairment of uncertain or unknown etiology Status: Acute (11) Cervical myelopathy: Code(s): G95.9 - Disease of spinal cord, unspecified Status: Acute Plan 67 y/o female with history as above including COVID-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, COPD, PANFILO, rheumatoid arthritis admitted to acute inpatient rehabilitation unit with multifactorial functional decline in the setting of traumatic spinal cord injury, cervical myelopathy, with unstable C2 fracture status post fixation/fusion. -Continues to complain of bilateral lower and upper extremity numbness/tingling and weakness. Cervical x-ray from yesterday demonstrated stable postsurgical changes, unchanged bony alignment. Monitor symptoms closely. --Consider CT cervical spine if symptoms persist/worsen. -Remains a heavy assist in therapy. Nonambulatory. -Plan is to DC to senior living facility close to home. CM is making referrals at this time. Hospitalist to assist with management of comorbid medical conditions Pain control: Steroid taper. Wean opioids. Add low dose muscle relaxer Bowel and bladder: Continent. Monitor for retention. Skin: Monitor operative site in collar. Sleep: Optimize sleep/wake cycle. Avoid oversedation given PANFILO/pain meds. DVT prophylaxis: Continue heparin sq. Functional status: Heavy assist. Mild cognitive impairment, premorbid, will haveSLP follow if needed after evaluation. Needs to be compliant/understand nature of injury, precautions going forward. Maintain soft cervical collar. Ok for hard collar when out of bed if patient desires. Discharge planning: Home in 2-3 weeks most likely. I spent greater than 15 minutes for services, including [id number] encounter with the patient, discussion of the case, plan of care, and exam; and anlnbtl-fj-geir activities, such as reviewing pertinent lactation consultant documentation, recent therapy notes, laboratory and radiology studies, and discussion of case with care team including physician, nursing, hospice case manager, and therapists. More than 50 % of time was spent on patient/family counseling or coordination ofcare. <Tom Hill MD - Last Filed: 09/24/22 10:18> Assessment/Plan (1) COVID-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: (2) Hypertension: (3) Rheumatoid arthritis: (4) Sleep apnea: (5) COPD (chronic obstructive pulmonary disease): (6) Chronic respiratory failure with hypoxia and hypercapnia: (7) C2 cervical fracture: (8) Postoperative pain: (9) Impaired gait and mobility: (10) Mild cognitive impairment: (11) Cervical myelopathy: Plan: I completed a substantive portion of this encounter, the medical decision makingportion of this note in its entirety, including Allied health note review, nursing note review, lactation consultant note review, discussion with nursing and case management, and more than 50% of my time was spent on counseling and coordination of care, time spent 23 minutes Patient was personally seen by me, Dr. Hill, on the day of encounter, I reviewed the history and the relevant portions of the chart, including current orders, allied health and lactation consultant notes, labs/imaging and performed lea elements of exam and I formulated the plan of care and facilitated the medical decision making. Documented By: Rubia George APRN 09/22/22 1 315 Signed By: <Electronically signed by GAETANO George> 09/22/22 1337 <Electronically signed by Tom Hill MD> 09/24/22 [address] [facility] Work Phone: 1(491) 179-437607-02-2023 Progress note Author Tom Hill [facility] September 21, 2022 10:55am Note Date/Time September 21, 2022 8:44a m [facility] [address] [place] [address] Physiatry(Rehab) Progress Note Signed Patient: Miriam German MR#: [id number] : 1955 Acct:[id number] Age/Sex: 67 / F Adm Date: 3 Loc: Room: [address] [place] [address] Type: ADM IN Attending Dr: Tom Hill MD Copies to: ~ Date of Service: 09/21/2022 Subjective Subjective Narrative: Ms. German is a 67 year old female with medical history of COVID-19 long- hauler, COPD, obstructive sleep apnea, rheumatoid arthritis on chronic prednisone admitted to the rehabilitation unit with cervical myelopathy after a C2 fracture and operative fixation. She presented to [facility] 2 weeks ago, 09/05 with increased falls and weakness. Eventual MRI imaging demonstrated C2 fracture, and subsequent flexionand extension films confirmed instability. She was transferred to [facility] 09/10 for NSGY evaluation/treatment. After medical clearance, underwent C2 sublaminar wire with allograft fusion 09/15. Postoperative course without significant complications aside from pain/anxiety. Her respiratory status is stable. Home prednisone is on hold until completes decadron taper. Cleared for DVT prophylaxis. Anxious, tearful on admission, repots 10/10 pain. RN called requesting new orders. Interval History: C/o some increased neck pain with therapy. No new weakness, sensory impairment noted. Requesting to have lift chair from home Asking about SNF placement near home at discharge to lift her spirits . Would like hard collar when out of bed, neck feels better to her when mobility is limited. Feels she moves too much in soft collar. Chronic conditions as above are stable. Review of Systems Review of Systems All other systems reviewed & are negative unless noted below or in HPI Exam Physical Exam Vital Signs: Temp Pulse Resp BP Pulse Ox O2 Del Method O2 Flow Rate 97.3 F L 89 20 164/96 H 100 Nasal Cannula 2.5 09/21/22 05:00 09/21/22 06:28 09/21/22 06:28 09/21/22 05:00 09/21/22 05:00 09/21/22 05:00 09/21/22 05:00 Narrative: General: cooperative, comfortable HENMT Head: normal to inspection Eyes General: appearance normal, both eyes and all related structures Neck cervical collar in place. Resp Effort & Inspection: normal respiratory effort Auscultation: scattered rhonchi Cardio Rate: regular rate Rhythm: regular rhythm Heart Sounds: S1 normal, S2 normal GI Inspection: normal to inspection Auscultation: normal bowel sounds Neuro Cranial Nerves: CN's II-XI intact bilaterally Cognition: normal cognition Speech: speech normal Motor: strength 5/5 throughout left upper extremity, 3/5 right hand/wrist flexors, antigravity both legs, limited by pain. Sensory Exam: no sensory deficits noted Plantar Reflexes: Downgoing Deep Tendon Reflexes DTR Comments: 1+ and symmetric Extrem General: normal to inspection, no clubbing, cyanosis or edema Psych Mood: anxious Endurance fair Objective Labs 09/18/22 05:41 09/18/22 05:41 Medications and Allergies Allergies and Active Meds: Allergies No Known Allergies Allergy (Verified 09/10/22 17:55) Active Medications Generic Name Dose Route Start Last Admin Trade Name Freq PRN Reason Stop Dose Admin Acetaminophen 500 mg 09/17/22 16:18 09/20/22 16:51 Acetaminophen 500 Mg Tablet PO 09/17/23 16:17 500 mg Q4H PRN Administration Pain Al Hydrox/Mg Hydrox/Simethicone 30 ml 09/17/22 16:18 Mag Hydrox/Al Hydrox/Simeth 30 Ml Udc PO 09/17/23 16:17 Q4H PRN Indigestion Amlodipine Besylate 5 mg 09/19/22 09:00 09/21/22 05:39 Amlodipine 5 Mg Tablet PO 09/19/23 08:59 5 mg DAILY CECI Administration Bisacodyl 10 mg 09/17/22 16:18 Bisacodyl 10 Mg Supp.Rect AR 09/17/23 16:17 DAILY PRN Constipation Dexamethasone 2 mg 09/18/22 09:00 09/21/22 08:03 Dexamethasone 2 Mg Tablet PO 09/27/22 08:59 2 mg QID CECI Administration Taper Diazepam 2 mg 09/17/22 19:49 09/21/22 08:03 Diazepam 2 Mg Tablet PO 03/16/23 19:48 2 mg Q6H PRN Administration Spasms Docusate Sodium 100 mg 09/17/22 16:18 Docusate 100 Mg Capsule PO 09/17/23 16:17 BID PRN Constipation Docusate Sodium 283 mg 09/17/22 16:18 Docusate Enema 283 Mg/5 Ml Enema AR 09/17/23 16:17 DAILY PRN Constipation Famotidine 20 mg 09/17/22 21:00 09/20/22 20:07 Famotidine 20 Mg Tablet PO 09/17/23 20:59 20 mg Q12HR CECI Administration Heparin Sodium (Porcine) 5,000 unit 09/18/22 10:00 09/21/22 05:39 Heparin 5,000 Unit/Ml Vial SUBCUT 09/18/23 09:59 5,000 unit Q8HR CECI Administration Lactulose 30 gm 09/17/22 16:18 Lactulose 20 Gm/30 Ml Udc PO 09/17/23 16:17 DAILY PRN Constipation Levalbuterol HCl 0.63 mg 09/19/22 12:00 09/21/22 06:26 Levalbuterol Hcl *Nf* 0.63 Mg/3 Ml Vial.Neb INHALATION 09/19/23 11:59 0.63 mg QID.RESP CECI Administration Protocol Oxycodone HCl 5 mg 09/18/22 07:08 09/20/22 18:35 Oxycodone Ir 5 Mg Tablet PO 5 mg Q4HR PRN Administration Pain Scale 4 - 7 Oxycodone HCl 10 mg 09/18/22 07:08 09/21/22 08:03 Oxycodone Ir 5 Mg Tablet PO 10 mg Q4HR PRN Administration Pain Scale 8 - 10 Prednisone 10 mg 09/27/22 09:00 Prednisone 10 Mg Tablet PO 09/27/23 08:59 BID CECI Senna/Docusate Sodium 2 tab 09/17/22 21:00 09/20/22 20:06 Sennosides/Docusate 8.6-50mg 1 Tab Tablet PO 09/17/23 20:59 2 tab BID CECI Administration Sennosides 2 tab 09/18/22 12:00 Sennosides 8.6 Mg Tablet PO 09/18/23 11:59 DAILY@12 PRN If no BM in 2 days Sodium Chloride 0 ml 09/17/22 16:18 Sodium Chloride 0.9 % 10 Ml Syringe IV-PUSH 09/17/23 16:17 PRN PRN Flush Assessment/Plan Assessment/Plan (1) COVID-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: Code(s): U09.9 - Post COVID-19 condition, unspecified Status: Acute (2) Hypertension: Code(s): I10 - Essential (primary) hypertension Status: Acute (3) Rheumatoid arthritis: Code(s): M06.9 - Rheumatoid arthritis, unspecified Status: Acute (4) Sleep apnea: Code(s): G47.30 - Sleep apnea, unspecified Status: Acute (5) COPD (chronic obstructive pulmonary disease): Code(s): J44.9 - Chronic obstructive pulmonary disease, unspecified Status: Acute (6) Chronic respiratory failure with hypoxia and hypercapnia: Code(s): J96.11 - Chronic respiratory failure with hypoxia; J96.12 - Chronic respiratory failure with hypercapnia Status: Acute (7) C2 cervical fracture: Code(s): S12.100A - Unspecified displaced fracture of second cervical vertebra, initial encounter for closed fracture Status: Acute (8) Postoperative pain: Code(s): G89.18 - Other acute postprocedural pain Status: Acute (9) Impaired gait and mobility: Code(s): R26.89 - Other abnormalities of gait and mobility Status: Acute (10) Mild cognitive impairment: Code(s): G31.84 - Mild cognitive impairment of uncertain or unknown etiology Status: Acute (11) Cervical myelopathy: Code(s): G95.9 - Disease of spinal cord, unspecified Status: Acute Plan 67 y/o female with history as above including COVID-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, COPD, PANFILO, rheumatoid arthritis admitted to acute inpatient rehabilitation unit with multifactorial functional decline in the setting of traumatic spinal cord injury, cervical myelopathy, with unstable C2 fracture status post fixation/fusion. -At this point in addition to neurologic deficits also really limited by pain/anxiety, will adjust regimen as needed -Slow steroid taper, follow exam, discussed with Dr. Garcia ====Increased today, still taper to end 09/27. -Check C-spine XR -Pulmonology recommended to follow as needed given premorbid lung disease and high cord injury ---Prednisone on hold with decadron in place. Defer for additional recommendations. Hospitalist to assist with management of comorbid medical conditions Pain control: Steroid taper. Wean opioids. Add low dose muscle relaxer Bowel and bladder: Continent. Monitor for retention. Skin: Monitor operative site in collar. Sleep: Optimize sleep/wake cycle. Avoid oversedation given PANFILO/pain meds. DVT prophylaxis: Continue heparin sq. Functional status: Heavy assist. Mild cognitive impairment, premorbid, will haveSLP follow if needed after evaluation. Needs to be compliant/understand nature of injury, precautions going forward. Maintain soft cervical collar. Ok for hard collar when out of bed if patient desires. Discharge planning: Home in 2-3 weeks most likely. Plan: I completed a substantive portion of this encounter, the medical decision makingportion of this note in its entirety, including Allied health note review, nursing note review, lactation consultant note review, discussion with nursing and case management, and more than 50% of my time was spent on counseling and coordination of care, time spent 25 minutes Patient was personally seen by me, Dr. Hill, on the day of encounter, I reviewed the history and the relevant portions of the chart, including current orders, allied health and lactation consultant notes, labs/imaging and performed lea elements of exam and I formulated the plan of care and facilitated the medical decision making. Documented By: Tom Hill MD 09/21/22 0844 Signed By: <Electronically signed by Tom Hill MD> 09/21/22 1053 [facility] Work Phone: [phone]) 578-878406-29-2023 Consult note Author Adam Estrella [facility] September 18, 2022 5:32pm Note Date/Time September 18, 2022 4:47 pm [facility] [address] [place] [address] Hospitalist Consult Note Signed Patient: Miriam German MR#: [id number] : 1955 Acct:[id number] Age/Sex: 67 / F Adm Date: 3 Loc: Room: [address] [place] [address] Type: ADM IN Attending Dr: Tom Hill MD Copies to: Bhumika Stacy,MD Adam Modi DO Linda Obika, APRN~ HPI DATE OF CONSULTATION: 09/18/22 REQUESTING PROVIDER: Tom Hill Consult Narrative Reason for Consult: Hypertension, RA, chronic respiratory failure, unstable C2 fx HPI: Patient is a 67-year-old female with a past medical history of rheumatoid arthritis, chronic respiratory failure on home oxygen of 3 L and hypertension who presented as a transfer from [facility] on 09/10/2022, where she was hospitalized as inpatient after presenting with generalized weakness and back pain on 09/05/22.. Neurosurgery was consulted and on 09/15/2022 she underwent a posterior cervical C1 to sublaminar wires and fusion. Patient tolerated procedure well. Postoperatively she was seen and evaluated by physical therapy who recommended acute inpatient rehabilitation. The hospitalist team has been consulted for medical management of hypertension, and all other comorbidities. Patient seen and examined, resting comfortably in bed. Reports she is still unable to ambulate as yet, was only able to sit at the edge of the bed with physical therapy this morning. Reports pain is well controlled on current regimen. Denies chest pain or palpitation. No cough, dyspnea, or pain with inspiration. No abdominal pain or indigestion, constipation or diarrhea, nauseaor vomiting. No dysuria or retention. No headache or dizziness. No fevers vital signs reviewed, blood pressure uncontrolled, will increase amlodipine, patient agreeable Review of Systems Review of Systems Review of systems: 10 point review of systems obtained, negative unless noted in the HPI below [facility] Attestation Statement: The following information was validated with the patient. Source: Old Records Reviewed Vaccinated for COVID-19?: No Medical History (Updated 09/18/22 @ 16:49 by Mildred Summers APRN) Ankle fracture, right COVID-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 Former smoker Fracture of sacrum Hypertension Impaired gait and mobility Rheumatoid arthritis Sepsis Surgical History No pertinent past surgical history Family History Other No significant family history Social History Smoking Status: Former smoker Tobacco Type: cigarettes Substance Use Type: None Meds Medications and Allergies Allergies No Known Allergies Allergy (Verified 09/10/22 17:55) Home Medications amlodipine 2.5 mg tablet 2.5 mg PO DAILY 09/10/22 [History Confirmed 09/17/22] prednisone 10 mg tablet 10 mg PO BID 09/10/22 [History Confirmed 09/17/22] cyclobenzaprine 10 mg tablet 10 mg PO Q8HR PRN Muscle Spasm #0 tabs 09/17/22 [Rx Confirmed 09/17/22] dexamethasone 2 mg tablet 1 mg PO QID #0 tabs 09/17/22 [Rx Confirmed 09/17/22] famotidine 20 mg tablet 20 mg PO Q12HR #0 tabs 09/17/22 [Rx Confirmed 09/17/22] oxycodone 5 mg tablet 5 mg PO Q6HR PRN Pain Scale 1 - 5 #0 tabs 09/17/22 [Rx Confirmed 09/17/22] oxycodone 5 mg tablet 10 mg PO Q6HR PRN Pain Scale 6 - 10 #0 tabs 09/17/22 [Rx Confirmed 09/17/22] sennosides 8.6 mg-docusate sodium 50 mg tablet 2 tab PO BID #0 tabs 09/17/22 [Rx Confirmed 09/17/22] Active Medications: Active Medications Generic Name Dose Route Start Last Admin Trade Name Trevorq PRN Reason Stop Dose Admin Acetaminophen 500 mg 09/17/22 16:18 09/18/22 13:11 Acetaminophen 500 Mg Tablet PO 09/17/23 16:17 500 mg Q4H PRN Administration Pain Al Hydrox/Mg Hydrox/Simethicone 30 ml 09/17/22 16:18 Mag Hydrox/Al Hydrox/Simeth 30 Ml Udc PO 09/17/23 16:17 Q4H PRN Indigestion Amlodipine Besylate 2.5 mg 09/18/22 09:00 09/18/22 08:19 Amlodipine 2.5 Mg Tablet PO 09/18/23 08:59 2.5 mg DAILY CECI Administration Bisacodyl 10 mg 09/17/22 16:18 Bisacodyl 10 Mg Supp.Rect AR 09/17/23 16:17 DAILY PRN Constipation Dexamethasone 2 mg 09/18/22 09:00 09/18/22 14:28 Dexamethasone 2 Mg Tablet PO 09/27/22 08:59 2 mg QID CECI Administration Taper Diazepam 2 mg 09/17/22 19:49 09/18/22 08:44 Diazepam 2 Mg Tablet PO 03/16/23 19:48 2 mg Q6H PRN Administration Spasms Docusate Sodium 100 mg 09/17/22 16:18 Docusate 100 Mg Capsule PO 09/17/23 16:17 BID PRN Constipation Docusate Sodium 283 mg 09/17/22 16:18 Docusate Enema 283 Mg/5 Ml Enema AR 09/17/23 16:17 DAILY PRN Constipation Famotidine 20 mg 09/17/22 21:00 09/18/22 08:19 Famotidine 20 Mg Tablet PO 09/17/23 20:59 20 mg Q12HR CECI Administration Heparin Sodium (Porcine) 5,000 unit 09/18/22 10:00 09/18/22 14:27 Heparin 5,000 Unit/Ml Vial SUBCUT 09/18/23 09:59 5,000 unit Q8HR CECI Administration Lactulose 30 gm 09/17/22 16:18 Lactulose 20 Gm/30 Ml Udc PO 09/17/23 16:17 DAILY PRN Constipation Oxycodone HCl 5 mg 09/18/22 07:08 Oxycodone Ir 5 Mg Tablet PO Q4HR PRN Pain Scale 4 - 7 Oxycodone HCl 10 mg 09/18/22 07:08 09/18/22 14:28 Oxycodone Ir 5 Mg Tablet PO 10 mg Q4HR PRN Administration Pain Scale 8 - 10 Prednisone 10 mg 09/27/22 09:00 Prednisone 10 Mg Tablet PO 09/27/23 08:59 BID CECI Senna/Docusate Sodium 2 tab 09/17/22 21:00 09/18/22 08:20 Sennosides/Docusate 8.6-50mg 1 Tab Tablet PO 09/17/23 20:59 Not Given BID CECI Sennosides 2 tab 09/18/22 12:00 Sennosides 8.6 Mg Tablet PO 09/18/23 11:59 DAILY@12 PRN If no BM in 2 days Sodium Chloride 0 ml 09/17/22 16:18 Sodium Chloride 0.9 % 10 Ml Syringe IV-PUSH 09/17/23 16:17 PRN PRN Flush Exam Physical Exam Vital Signs: Temp Pulse Resp BP Pulse Ox O2 Del Method O2 Flow Rate 97.9 F 100 H 17 150/87 H 96 Room Air 2.5 09/18/22 14:46 09/18/22 14:46 09/18/22 14:46 09/18/22 14:46 09/18/22 14:46 09/18/22 14:46 09/18/22 08:47 Narrative: CONST-obese, resting comfortably HEAD - Normocephalic and atraumatic EENT-Sclera nonicteric and conjunctive are nonerythemic, moist oral mucosa, pharynx clear NECK-soft collar in place CARDIAC-normal rate, regular rhythm, normal S1 & S2. PULM-diminished without wheeze or rhonchi, RA, no accessory muscle use or cough noted ?ABD - Soft.? Bowel sounds are normal.? Obese no tenderness EXTREM-no edema BLE calves? nontender SKIN-incision to posterior neck. Scattered bruising, poor skin turgor MS- MAEX4 spontaneously with equal with equal strength NEURO- A&Ox3 speech clear and tongue midline, equal facial symmetry no focal motor deficits PSYCH-Mood, affect? and behavior appropriate Results Lab Results Labs: Laboratory Results - last 72 hr 09/18/22 05:41: PHA Creatinine Clear 72.98, Sodium 143, Potassium 4.4, Chloride 106, Carbon Dioxide 32.3 H, Anion Gap 9.1, BUN 21, Creatinine 0.46 L, Est GFR (CKD- EPI) > 60.0, Glucose 113 H, Calcium 10.5 H, Total Bilirubin 0.3, AST 27, ALT 32, Alkaline Phosphatase 93, Total Protein 6.2 L, Albumin 3.9, Globulin 2.3,Albumin/Globulin Ratio 1.7, Prealbumin 39.3 H 09/18/22 05:41: Corrected WBC 12.1 H, Uncorrected WBC Count 12.1 H, RBC 4.22, Hgb 12.9, Hct 39.4, MCV 93.4, MCH 30.7, MCHC 32.8, RDW 14.5, Plt Count 220, MPV 8.1, Neut % (Auto) 81.9, Lymph % (Auto) 9.2, Haskell % (Auto) 8.3, Eos % (Auto) 0.0, Baso % (Auto) 0.6, Nucleat RBC Rel Count 0.1, Neut # (Auto) 9.9 H, Lymph # (Auto) 1.1, Haskell # (Auto) 1.0 H, Eos # (Auto) 0.0, Baso # (Auto) 0.1 Assessment & Plan Assessment/Plan (1) Mild cognitive impairment: (2) Impaired gait and mobility: (3) C2 cervical fracture: (4) COPD (chronic obstructive pulmonary disease): (5) Chronic respiratory failure with hypoxia and hypercapnia: (6) Sleep apnea: Plan C2 odontoid fracture with instability S/p C2 sublaminar wire and allograft fusion?09/15 Impaired gait and mobility ?Plan of care for rehabilitation PT/OT, DVT prophylaxis, bowel regimen per PM&R team. Any concerns with incision site to be deferred to neurosurgery. Leukocytosis, since patient, improving. Continues to be afebrile WBC 12.1 today, continue to monitor CBC Chronic conditions 1. Hypertension?uncontrolled, will increase amlodipine dose 2. Rheumatoid arthritis, on dexamethasone taper, start prednisone 10 mg twice daily once taper is completed 3. Chronic respiratory failure, on 3 L of home O2. Documented By: Mildred Summers APRN 09/18/22 1641 Signed By: <Electronically signed by GAETANO Summers> 09/18/22 1717 <Electronically signed by Adam Estrella DO> 09/18/22 1732 [facility] Work Phone: 1(538) 570-831506-29-2023 Progress note Author Ailyn Hermosillo [facility] September 18, 2022 11:47am Note Date/Time September 18, 2022 10:4 3am [facility] [address] [place] [address] Pulmonology Progress Note Signed Patient: Miriam German MR#: [id number] : 1955 Acct:[id number] Age/Sex: 67 / F Adm Date: 3 Loc: Room: [address] [place] [address] Type: ADM IN Attending Dr: Tom Hill MD Copies to: ~ Date of Service: 09/18/2022 Subjective Subjective Narrative: Patient laying in bed comfortably. States her pain is currently 4/10. States herbreathing is significantly better with inhaler. She feels that this is way better than albuterol as she has not had the same issues she had before regarding tachycardia. Otherwise, she denies cough or sputum production at this time. Exam Physical Exam Vital Signs: Temp Pulse Resp BP Pulse Ox O2 Del Method O2 Flow Rate 97.6 F 91 H 20 144/80 H 99 Nasal Cannula 2.5 09/18/22 04:27 09/18/22 04:27 09/18/22 04:27 09/18/22 04:27 09/18/22 04:27 09/18/22 08:47 09/18/22 08:47 Narrative: General: Patient is alert awake responds appropriately in no distress Cardiovascular: S1, S2, normal sounds, no murmurs or gallops noted, regular rhythm Lungs: Adequate air entry bilaterally, clear to auscultation Extremities: No significant peripheral edema, peripheral pulses adequate Neurologic: Alert, awake, orientedx3, no focal weakness or speech abnormality Objective Intake and Output I&O - Last 24 Hours: Intake & Output 09/17/22 09/18/22 09/18/22 23:59 07:59 15:59 Intake Total 540 / 540 Output Total 400 / 400 Balance 540 / 540 -370 / -370 Weight 89.675 kg Labs 09/18/22 05:41 09/18/22 05:41 Assessment/Plan Assessment/Plan (1) Chronic respiratory failure with hypoxia and hypercapnia: (2) COPD (chronic obstructive pulmonary disease): (3) Sleep apnea: Plan * Continue current management with Xopenex as before from the pulmonary standpo int * Has not required noninvasive support or BiPAP therapy at this point, oxygenating well on 2.5L NC * Will plan to follow in outpatient setting for COPD management Attending note Patient was seen, examined, and discussed today, she was transferred to inpatient rehabilitation following her C-spine surgery, states that she is feeling much better, breathing is improved significantly, states that current inhaler is working well for her. Excellent oxygenation on a nasal cannula at 2-1/2 L today with a pulse oximetry reading of 99%. Hemodynamically stable. Discussed outpatient follow-up, work-up and management of suspected COPD and obstructive sleep apnea. Documented By: Ailyn Hermosillo MD 09/18/22 1039 Signed By: <Electronically signed by Ailyn Hermosillo MD> 09/18/22 1147 <Electronically signed by DO OCTAVIO Garcia> 09/18/22 1111 [facility] Work Phone: 1(456) 528-143806-29-2023 History and physical note Author Tom Hill [facility] September 18, 2022 8:00am Note Date/Time September 18, 2022 7:12 am [facility] [address] [place] [address] Physiatry (Rehab) H&P Signed Patient: Miriam German MR#: [id number] : 1955 Acct:[id number] Age/Sex: 67 / F Adm Date: 3 Loc: Room: [address] [place] [address] Type: ADM IN Attending Dr: Tom Hill MD Copies to: DO Tom Sullivan MD~ Date of Service: 09/18/2022 HPI The patient was seen and examined on: 09/17/22 Etiologic Diagnosis/Impairment Group: Cervical Myelopathy Chief complaint: weakness/pain History of Present Illness: Ms. German is a 67 year old female with medical history of COVID-19 long- hauler, COPD, obstructive sleep apnea, rheumatoid arthritis on chronic prednisone admitted to the rehabilitation unit with cervical myelopathy after a C2 fracture and operative fixation. She presented to [facility] 2 weeks ago, 09/05 with increased falls and weakness. Eventual MRI imaging demonstrated C2 fracture, and subsequent flexionand extension films confirmed instability. She was transferred to [facility] 09/10 for NSGY evaluation/treatment. After medical clearance, underwent C2 sublaminar wire with allograft fusion 09/15. Postoperative course without significant complications aside from pain/anxiety. Her respiratory status is stable. Home prednisone is on hold until completes decadron taper. Cleared for DVT prophylaxis. Anxious, tearful on admission, repots 10/10 pain. RN called requesting new orders. Chronic conditions as above are stable. [facility] Attestation Statement: The following information was validated with the patient. Vaccinated for COVID-19?: No Medical History Ankle fracture, right COVID-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 Former smoker Fracture of sacrum Hypertension Rheumatoid arthritis Sepsis Surgical History No pertinent past surgical history Family History Other No significant family history Social History Smoking Status: Former smoker Tobacco Type: cigarettes Substance Use Type: None Review of Systems Review of Systems All other systems reviewed & are negative unless noted below or in HPI Meds Medications and Allergies Allergies No Known Allergies Allergy (Verified 09/10/22 17:55) Home and Active Meds: Home Medications amlodipine 2.5 mg tablet 2.5 mg PO DAILY 09/10/22 [History Confirmed 09/17/22] prednisone 10 mg tablet 10 mg PO BID 09/10/22 [History Confirmed 09/17/22] cyclobenzaprine 10 mg tablet 10 mg PO Q8HR PRN Muscle Spasm #0 tabs 09/17/22 [Rx Confirmed 09/17/22] dexamethasone 2 mg tablet 1 mg PO QID #0 tabs 09/17/22 [Rx Confirmed 09/17/22] famotidine 20 mg tablet 20 mg PO Q12HR #0 tabs 09/17/22 [Rx Confirmed 09/17/22] oxycodone 5 mg tablet 5 mg PO Q6HR PRN Pain Scale 1 - 5 #0 tabs 09/17/22 [Rx Confirmed 09/17/22] oxycodone 5 mg tablet 10 mg PO Q6HR PRN Pain Scale 6 - 10 #0 tabs 09/17/22 [Rx Confirmed 09/17/22] sennosides 8.6 mg-docusate sodium 50 mg tablet 2 tab PO BID #0 tabs 09/17/22 [Rx Confirmed 09/17/22] Active Medications Acetaminophen (Acetaminophen 500 Mg Tablet) 500 mg PO Q4H PRN PRN Reason: Pain Stop: 09/17/23 16:17 Last Admin: 09/17/22 18:12 Dose: 500 mg Al Hydrox/Mg Hydrox/Simethicone (Mag Hydrox/Al Hydrox/Simeth 30 Ml Udc) 30 ml PO Q4H PRN PRN Reason: Indigestion Stop: 09/17/23 16:17 Amlodipine Besylate (Amlodipine 2.5 Mg Tablet) 2.5 mg PO DAILY [facility] Stop: 09/18/23 08:59 Bisacodyl (Bisacodyl 10 Mg Supp.Rect) 10 mg AR DAILY PRN PRN Reason: Constipation Stop: 09/17/23 16:17 Dexamethasone (Dexamethasone 1 Mg Tablet) 1 mg PO QID [facility]; Taper Stop: 09/26/22 21:59 Diazepam (Diazepam 2 Mg Tablet) 2 mg PO Q6H PRN PRN Reason: Spasms Stop: 03/16/23 19:48 Last Admin: 09/17/22 20:01 Dose: 2 mg Docusate Sodium (Docusate 100 Mg Capsule) 100 mg PO BID PRN PRN Reason: Constipation Stop: 09/17/23 16:17 Docusate Sodium (Docusate Enema 283 Mg/5 Ml Enema) 283 mg AR DAILY PRN PRN Reason: Constipation Stop: 09/17/23 16:17 Famotidine (Famotidine 20 Mg Tablet) 20 mg PO Q12HR [facility] Stop: 09/17/23 20:59 Last Admin: 09/17/22 20:01 Dose: 20 mg Heparin Sodium (Porcine) (Heparin 5,000 Unit/Ml Vial) 5,000 unit SUBCUT Q8HR [facility] Stop: 09/18/23 09:59 Lactulose (Lactulose 20 Gm/30 Ml Udc) 30 gm PO DAILY PRN PRN Reason: Constipation Stop: 09/17/23 16:17 Oxycodone HCl (Oxycodone Ir 5 Mg Tablet) 5 mg PO Q4HR PRN PRN Reason: Pain Scale 4 - 7 Oxycodone HCl (Oxycodone Ir 5 Mg Tablet) 10 mg PO Q4HR PRN PRN Reason: Pain Scale 8 - 10 Prednisone (Prednisone 10 Mg Tablet) 10 mg PO BID [facility] Stop: 09/27/23 08:59 Senna/Docusate Sodium (Sennosides/Docusate 8.6-50mg 1 Tab Tablet) 2 tab PO BID [facility] Stop: 09/17/23 20:59 Last Admin: 09/17/22 20:01 Dose: 2 tab Sennosides (Sennosides 8.6 Mg Tablet) 2 tab PO DAILY@12 PRN PRN Reason: If no BM in 2 days Stop: 06/28/24 11:59 Sodium Chloride (Sodium Chloride 0.9 % 10 Ml Syringe) 0 ml IV-PUSH PRN PRN PRN Reason: Flush Stop: 09/17/23 16:17 Exam Physical Exam Vital Signs: Temp Pulse Resp BP Pulse Ox O2 Del Method O2 Flow Rate 97.6 F 91 H 20 144/80 H 99 Nasal Cannula 2.5 09/18/22 04:09/18/22 04:09/18/22 04:09/18/22 04:09/18/22 04:09/18/22 04:09/18/22 04:27 Narrative: General: cooperative, comfortable HENMT Head: normal to inspection Eyes General: appearance normal, both eyes and all related structures Neck cervical collar in place. Resp Effort & Inspection: normal respiratory effort Auscultation: scattered rhonchi Cardio Rate: regular rate Rhythm: regular rhythm Heart Sounds: S1 normal, S2 normal GI Inspection: normal to inspection Auscultation: normal bowel sounds Neuro Cranial Nerves: CN's II-XI intact bilaterally Cognition: normal cognition Speech: speech normal Motor: strength 5/5 throughout left upper extremity, 3/5 right hand/wrist flexors, antigravity both legs, limited by pain. Sensory Exam: no sensory deficits noted Plantar Reflexes: Downgoing Deep Tendon Reflexes DTR Comments: 1+ and symmetric Extrem General: normal to inspection, no clubbing, cyanosis or edema Psych Mood: anxious Endurance fair Results Labs Labs: Laboratory Results - last 24 hr 09/18/22 09/18/22 05:41 05:41 Corrected WBC 12.1 H Uncorrected WBC Count 12.1 H RBC 4.22 Hgb 12.9 Hct 39.4 MCV 93.4 MCH 30.7 MCHC 32.8 RDW 14.5 Plt Count 220 MPV 8.1 Neut % (Auto) 81.9 Lymph % (Auto) 9.2 Haskell % (Auto) 8.3 Eos % (Auto) 0.0 Baso % (Auto) 0.6 Nucleat RBC Rel Count 0.1 Neut # (Auto) 9.9 H Lymph # (Auto) 1.1 Haskell # (Auto) 1.0 H Eos # (Auto) 0.0 Baso # (Auto) 0.1 PHA Creatinine Clear 72.98 Sodium 143 Potassium 4.4 Chloride 106 Carbon Dioxide 32.3 H Anion Gap 9.1 BUN 21 Creatinine 0.46 L Est GFR (CKD-EPI) > 60.0 Glucose 113 H Calcium 10.5 H Total Bilirubin 0.3 AST 27 ALT 32 Alkaline Phosphatase 93 Total Protein 6.2 L Albumin 3.9 Globulin 2.3 Albumin/Globulin Ratio 1.7 Prealbumin 39.3 H Additional Results Results Comment: I reviewed clinical lab tests, radiology reports and obtained and summated medical records and have ordered follow up lab tests and imaging studies as needed for rehabilitation care. Individualized Plan of Care Individualized Plan of Care Plan of Care: Individualized Overall Plan of Care: Admit Date/Time: September 17, 2022 Expected LOS: 10 days Expected Discharge Destination: Home Rehabilitation [facility]: Primary Diagnosis: Cervical myelopathy s/p C2 fracture Patient?s/Family?s anticipated outcomes/personal goals: To have patient become more independent and to return home. Medical/ Functional Prognosis: Good Anticipated Functional Outcomes/Goals and Interventions: -Therapy Functional Outcome/Goal: Mobility/Locomotion: Patient likely to be independent with ambulation with assistive device. Anticipated interventions: Physician management, PT, OT, Dietitian, Rehab Nursing - Therapy Functional Outcome/Goal: Self Care: Patient likely to be functionally independent for activities of daily living using assistive / adaptive equipment as needed. Anticipated interventions: Physician management, PT, OT, Dietitian, Rehab Nursing - Therapy Functional Outcome/Goal: Bladder/Bowel Management: Patient likely to be independent with bladder care and independent with bowel care. Anticipated interventions: Physician management, PT, OT, Dietitian, Rehab Nursing -Therapy Functional Outcome/Goal: Communication/Cognition: Patient will be able to communicate fully and be safe cognitively. Anticipated interventions: Physician management, PT, OT, Dietitian, Rehab Nursing -Therapy Functional Outcome/Goal: Patient will be independent for bed mobility and transfers Anticipated interventions: Physician management, PT, OT, Dietitian, Rehab Nursing -Therapy Functional Outcome/Goal: Patient will improve endurance to be able to tolerate all daily self care activities and avocational activities. Anticipated interventions: Physician management, PT, OT, Nutrition, Rehab Nursing -Therapy Functional Outcome/Goal: Patient will understand and assimilate / integrate education regarding management of their medical conditions to maintainhealth and wellbeing. Anticipated interventions: Physician management, PT, OT, Dietitian, Rehab Nursing Required Therapy PT: 1.5 hour per day at least 5 days per week with additional therapy on as needed basis. Comments: PT to improve pt's strength, endurance, bed mobility, transfers (sit-stand), standing balance, gait quality on level surfaces and stairs, coordination and functional ADL skills. Will also work to improve pt's safety awarenessduring transfers and ambulation. OT: 1.5 hour per day at least 5 days per week with additional therapy on as needed basis. Comments: OT for basic ADL re-training (bathing, dressing, toileting, continence, grooming, feeding, transferring), to increase activity tolerance andfunctional mobility and to evaluate for adaptive and assistive devices. Will work to improve pt's endurance and educate pt on fall prevention and energy conservation techniques-pacing strategies and proper breathing techniques duringfunctional tasks. Other: Nutrition, Rehab nursing, Wound, P&O RATIONALE FOR IRF ADMISSION: Patient has both medical and functional complexities that require 24 hour daily monitoring and intervention from Gas Dispatcher as well as other consulting physicians including internal medicine as well as 24 hour daily relay man nursing - for medical safe / optimal management. Patient requires interdisciplinary therapy team rehabilitation care including OT, PT, SW, Rehab Nursing, requires and can tolerate at least 3 hours of daily OT and PT therapy at least 5 days weekly. The following medical conditions significantly impact the rehabilitation process and are being addressed daily and can not be managed at home or in a lesser intense medical setting: Refer to above problem oriented plan of care Assessment/Plan (1) COVID-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: Code(s): U09.9 - Post COVID-19 condition, unspecified Status: Acute (2) Hypertension: Code(s): I10 - Essential (primary) hypertension Status: Acute (3) Rheumatoid arthritis: Code(s): M06.9 - Rheumatoid arthritis, unspecified Status: Acute (4) Sleep apnea: Code(s): G47.30 - Sleep apnea, unspecified Status: Acute (5) COPD (chronic obstructive pulmonary disease): Code(s): J44.9 - Chronic obstructive pulmonary disease, unspecified Status: Acute (6) Chronic respiratory failure with hypoxia and hypercapnia: Code(s): J96.11 - Chronic respiratory failure with hypoxia; J96.12 - Chronic respiratory failure with hypercapnia Status: Acute (7) C2 cervical fracture: Code(s): S12.100A - Unspecified displaced fracture of second cervical vertebra, initial encounter for closed fracture Status: Acute (8) Postoperative pain: Code(s): G89.18 - Other acute postprocedural pain Status: Acute (9) Impaired gait and mobility: Code(s): R26.89 - Other abnormalities of gait and mobility Status: Acute (10) Mild cognitive impairment: Code(s): G31.84 - Mild cognitive impairment of uncertain or unknown etiology Status: Acute (11) Cervical myelopathy: Code(s): G95.9 - Disease of spinal cord, unspecified Status: Acute Plan 67 y/o female with history as above including COVID-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, COPD, PANFILO, rheumatoid arthritis admitted to acute inpatient rehabilitation unit with multifactorial functional decline in the setting of traumatic spinal cord injury, cervical myelopathy, with unstable C2 fracture status post fixation/fusion. -At this point in addition to neurologic deficits also really limited by pain/anxiety, will adjust regimen as needed -Slow steroid taper, follow exam, discussed with Dr. Garcia -Pulmonology recommended to follow as needed given premorbid lung disease and high cord injury ---Prednisone on hold with decadron in place. Defer for additional recommendations. Hospitalist to assist with management of comorbid medical conditions Pain control: Steroid taper. Wean opioids. Add low dose muscle relaxer Bowel and bladder: Continent. Monitor for retention. Skin: Monitor operative site in collar. Sleep: Optimize sleep/wake cycle. Avoid oversedation given PANFILO/pain meds. DVT prophylaxis: Continue heparin sq. Functional status: Heavy assist. Mild cognitive impairment, premorbid, will haveSLP follow if needed after evaluation. Needs to be compliant/understand nature of injury, precautions going forward. Maintain soft servical collar. Discharge planning: Home in 2-3 weeks most likely. Plan: I completed a substantive portion of this encounter, the medical decision makingportion of this note in its entirety, including Allied health note review, nursing note review, lactation consultant note review, discussion with nursing and case management, and more than 50% of my time was spent on counseling and coordination of care, time spent 75 minutes Patient was personally seen by me, Dr. Hill, on the day of encounter, within 24hours of rehab admission, reviewed the history and the relevant portions of the chart, including current orders, allied health and lactation consultant notes, labs/imaging and performed lea elements of exam and I formulated the plan of care and facilitated the medical decision making. Documented By: Tom Hill MD 09/18/22 0710 Signed By: <Electronically signed by Tom Hill MD> 09/18/22 0800 [facility] Work Phone: 1([phone] 453-682406-28-2023 Discharge summary Author Moises Garcia [facility] September 17, 2022 2:06pm Note Date/Time September 17, 2022 2:06 pm [facility] [address] [place] [address] Discharge Summary Signed Patient: Miriam German MR#: [id number] : 1955 Acct:[id number] Age/Sex: 67 / F Adm Date: 3 Loc: 4 Room: [address] [place] [address]: Arnaud Max MD Copies to: MD Bhumika Hoff,DO Moises Garcia MD~ Providers Date of Discharge: 09/17/22 Discharging Provider: Moises Garcia Primary Care Provider: Bhumika Stacy Consults: 09/10/22 17:59 Consult to Neurosurgery Routine 09/11/22 13:03 Consult to Pulmonology Routine 09/15/22 09:53 Consult to Occupational Therapy Routine Consult to Physical Therapy Routine Discharge Diagnosis (1) C2 cervical fracture: (2) Chronic respiratory failure with hypoxia and hypercapnia: (3) COPD (chronic obstructive pulmonary disease): (4) Sleep apnea: Final Diagnosis Final Discharge Diagnosis: C2 fracture unstable Summary Hospital Course Hospital course: Patient was transferred from [facility] as an inpatient on 09/10/2022. On09/15/2022 patient was taken the operating room a posterior cervical C1 to sublaminar wires and fusion was performed. Patient tolerated procedure well. Postoperatively patient had difficulty ambulating and taking care of herself. She was evaluated and found to be a candidate for rehab has subsequently been accepted and will be transferred. Problems continue to be a very uncomfortable right shoulder, headaches, and overall lack of insight into her overall abilities and limitations. Condition Condition at Discharge: Stable Status at Discharge Functional status at discharge: uses cane/walker Overall status at discharge: patient is progressing back to baseline Time Spent with Patient Time spent providing/coordinating discharge services (# min): 30 Surgeries and Procedures Operation Date: 09/15/22 07:30 Actual Procedures p OR Posterior Cervical Fusion C1-C2 with neuromonitoring(Not Applicable) - Latonia Garcia MD Diagnostic Studies Completed and Pending Studies Pending studies at discharge: 09/17/22 13:24 BMP [Basic Metabolic Panel] [CHEM] Routine CBC [Complete Blood Count Auto Diff] Routine Exam Physical Exam Vital Signs: Temp Pulse Resp BP Pulse Ox O2 Del Method O2 Flow Rate 97.6 F 95 H 16 98/51 L 97 Nasal Cannula 3 09/17/22 11:21 09/17/22 11:52 09/17/22 11:52 09/17/22 11:21 09/17/22 11:21 09/17/22 11:21 09/17/22 08:00 Narrative: Upper and lower extremity strength motion baseline Incision clean dry Brace fitting appropriately Discharge Plan Discharge Plan Patient Disposition: Rehab [facility] Activity: No Activity Restriction Diet: Regular Additional Instructions: REHAB TO MANAGE: PT/OT to eval and treat Monitor VS per protocol--HTN Maintain oxygen at 3l continuous--patient wears 3l at home Monitor Neuro. assessment--C2 fracture had C2 sublaminar wire using flexible cable with allograft fusion on 09/15/22 Monitor Respiratory assessment--Respiratory failure, COPD Maintain soft cervical collar Daily dressing change to left hand skin tear: *Clean with NS and pat dry. Skin prep the christine wound. Apply Hydrogel to the wound bed. *Top with Adaptic and 2x2 gauze. Secure with opsite. Dressing change every 3 days: Mepilex border foam to Coccyx for protection. Maintain high risk fall precautions Care to be managed by Rehab providers Prescriptions: No Action prednisone 10 mg tablet 10 mg PO BID Patient Comments: TAKE 1 TABLET BY MOUTH EVERY MORNING AND 1/2 TABLET EVERY EVENING amlodipine 2.5 mg tablet 2.5 mg PO DAILY Patient Comments: TAKE 1 TABLET BY MOUTH EVERY DAY tramadol 50 mg tablet 50 mg PO Q8H PRN (Reason: Pain) Patient Comments: 50 mg orally every 8 hours As Needed for pain for 5 days Follow Up: Moises Garcia MD [Active Staff] - (Please schedule an appointment when discharged from Rehab.) Documented By: Moises Garcia MD 09/17/22 3358 Signed By: <Electronically signed by MD Moises Garcia> 09/17/22 1406 [facility] Work Phone: 1(221) 734-790906-28-2023 Progress note Author Moises Garcia [facility] September 17, 2022 2:05pm Note Date/Time September 17, 2022 2:05 pm [facility] [address] [place] [address] Neurosurgery Progress Note Signed Patient: Miriam German MR#: [id number] : 1955 Acct:[id number] Age/Sex: 67 / F Adm Date: 3 Loc: Room: [address] [place] [address] Type: ADM IN Attending Dr: Arnaud Max MD Copies to: ~ Date of Service: 09/17/2022 Subjective Subjective HPI: Patient in bed awake and alert. Says her neck is sore but tolerable. No new complaints. Exam Physical Exam Vital Signs: Temp Pulse Resp BP Pulse Ox O2 Del Method O2 Flow Rate 97.6 F 95 H 16 98/51 L 97 Nasal Cannula 3 09/17/22 11:21 09/17/22 11:52 09/17/22 11:52 09/17/22 11:21 09/17/22 11:21 09/17/22 11:21 09/17/22 08:00 Narrative: Upper and lower extremity strength was baseline Incision clean and dry Brace fitting appropriately Assessment/Plan Assessment/Plan (1) C2 cervical fracture: Plan: Increase activity as tolerated physical therapy. Discharge to inpatient rehab when available. I question patient's overall insight and connection with reality regarding her abilities. Literally the story is that she tells me very by the day. She is in real need of rehab she has been accepted rehab will definitely help her with ADLs gaining in strength and stability. We will followwhile in rehab. I will order a AP and lateral C-spine neck to be done today or tomorrow. Code(s): S12.100A - Unspecified displaced fracture of second cervical vertebra, initial encounter for closed fracture Status: Acute (2) Chronic respiratory failure with hypoxia and hypercapnia: Code(s): J96.11 - Chronic respiratory failure with hypoxia; J96.12 - Chronic respiratory failure with hypercapnia Status: Acute (3) COPD (chronic obstructive pulmonary disease): Code(s): J44.9 - Chronic obstructive pulmonary disease, unspecified Status: Acute (4) Sleep apnea: Code(s): G47.30 - Sleep apnea, unspecified Status: Acute Documented By: Moises Garcia MD 09/17/22 1334 Signed By: <Electronically signed by MD Moises Garcia> 09/17/22 140 [facility] Work Phone: [phone]) 513-803706-27-2023 Progress note Author Ailyn Hermosillo [facility] September 16, 2022 3:47pm Note Date/Time September 16, 2022 3:47 pm [facility] [address] [place] [address] Pulmonology Progress Note Signed Patient: Miriam German MR#: [id number] : 1955 Acct:[id number] Age/Sex: 67 / F Adm Date: 3 Loc: Room: [address] [place] [address] Type: ADM IN Attending Dr: Arnaud Max MD Copies to: ~ Date of Service: 09/16/2022 Subjective Subjective Narrative: Patient is doing well postoperatively, complaining of pain at the neck surgical site, especially with any movement, felt depressed today as she noticed how muchweaker she has gotten lately, she is oxygenating very well on 3 L per nasal cannula, lab results are unremarkable except for mild leukocytosis. Exam Physical Exam Vital Signs: Temp Pulse Resp BP Pulse Ox O2 Del Method O2 Flow Rate 98.7 F 109 H 16 130/58 L 96 Nasal Cannula 3 09/16/22 08:00 09/16/22 12:15 09/16/22 12:15 09/16/22 12:00 09/16/22 12:00 09/16/22 12:00 09/16/22 12:00 Narrative: General: Patient is alert awake responds appropriately in no distress Cardiovascular: S1, S2, normal sounds, no murmurs or gallops noted, regular rhythm Lungs: Adequate air entry bilaterally, clear to auscultation Extremities: No significant peripheral edema, peripheral pulses adequate Neurologic: Alert, awake, orientedx3, no focal weakness or speech abnormality Objective Intake and Output I&O - Last 24 Hours: Intake & Output 09/15/22 09/16/22 09/16/22 23:59 07:59 15:59 Intake Total 940 / 2590 290 / 890 600 / 890 Output Total 450 / 1325 550 / 850 300 / 850 Balance 490 / 1265 -260 / 40 300 / 40 Weight 89.8 kg Labs 09/16/22 04:21 09/16/22 06:36 Assessment/Plan Assessment/Plan (1) Chronic respiratory failure with hypoxia and hypercapnia: (2) COPD (chronic obstructive pulmonary disease): (3) Sleep apnea: Plan Continue current management as before from the pulmonary standpoint, has not required noninvasive support or BiPAP therapy at this point, will continue to follow Documented By: Ailyn Hermosillo MD 09/16/22 1546 Signed By: <Electronically signed by Ailyn Hermosillo MD> 09/16/22 1547 [facility] Work Phone: [phone]) [phone] Progress note Author Arnaud Max [facility] September 16, 2022 1:31pm Note Date/Time September 16, 2022 1:31 pm [facility] [address] [place] [address] Hospitalist Progress Note Signed Patient: Miriam German MR#: [id number] : 1955 Acct:[id number] Age/Sex: 67 / F Adm Date: 3 Loc: Room: [address] [place] [address] Type: ADM IN Attending Dr: Arnaud Max MD Copies to: ~ Date of Service: 09/16/2022 Subjective Subjective Narrative: patient is resting in bed. Her pain is reasonably well controlled. Heart is regular Lungs are clear Abdomen soft Neurological patient awake alert oriented with no evidence of focal deficit. Assessment and plan: 1. Unstable C2 odontoid fracture Postoperative day #1. No immediate complications. Further management per neurosurgery Initiate subcu heparin for DVT prophylaxis PT OT per neurosurgery 2. Chronic hypoxic respiratory failure Continue oxygen by nasal cannula 3 L/min 3. Rheumatoid arthritis Continue baseline prednisone 10 mg twice daily after current steroid taper 4. Hypertension Continue current regimen Transfer to surgical floor. DVT prophylaxis SCDs Exam Physical Exam Vital Signs: Temp Pulse Resp BP Pulse Ox O2 Del Method O2 Flow Rate 98.7 F 109 H 16 130/58 L 96 Nasal Cannula 3 09/16/22 08:00 09/16/22 12:15 09/16/22 12:15 09/16/22 12:00 09/16/22 12:00 09/16/22 12:00 09/16/22 12:00 Objective Lab Results 09/16/22 04:21 09/16/22 06:36 Meds Allergies and Active Meds Allergies No Known Allergies Allergy (Verified 09/10/22 17:55) Active Meds: Active Medications Generic Name Dose Route Start Last Admin Trade Name Trevorq PRN Reason Stop Dose Admin Acetaminophen 650 mg 09/15/22 09:53 09/15/22 18:27 Acetaminophen 325 Mg Tablet PO 09/15/23 09:52 650 mg Q4H PRN Administration Mild Pain Al Hydrox/Mg Hydrox/Simethicone 30 ml 09/15/22 09:53 Mag Hydrox/Al Hydrox/Simeth 30 Ml Udc PO 09/15/23 09:52 Q4H PRN Heartburn Amlodipine Besylate 2.5 mg 09/11/22 09:00 09/16/22 08:15 Amlodipine 2.5 Mg Tablet PO 09/11/23 08:59 2.5 mg DAILY CECI Administration Cyclobenzaprine HCl 10 mg 09/15/22 09:53 09/16/22 07:18 Cyclobenzaprine 10 Mg Tablet PO 09/15/23 09:52 10 mg Q8HR PRN Administration Muscle Spasm Dexamethasone Sodium Phosphate 4 mg 09/15/22 14:00 09/16/22 08:15 Dexamethasone Sod Phosphate 4 Mg/Ml Vial IV-PUSH 09/18/22 13:59 4 mg QID CECI Administration Taper Diphenhydramine HCl 25 mg 09/15/22 09:53 Diphenhydramine 25 Mg Capsule PO 09/15/23 09:52 Q6H PRN Itching Famotidine 20 mg 09/15/22 21:00 09/16/22 08:14 Famotidine/Pf 20 Mg/2 Ml Vial IV-PUSH 09/15/23 20:59 20 mg Q12HR CECI Administration Guaifenesin 1,200 mg 09/10/22 21:00 09/16/22 08:14 Guaifenesin 600 Mg Tab.Er.12h PO 09/10/23 20:59 1,200 mg BID CECI Administration Heparin Sodium (Porcine) 5,000 unit 09/16/22 14:00 Heparin 5,000 Unit/Ml Vial SUBCUT 09/16/23 13:59 Q8HR CECI Hydralazine HCl 10 mg 09/16/22 09:33 09/16/22 09:38 Hydralazine 20 Mg/Ml Vial IV-PUSH 09/16/23 09:32 10 mg Q4H PRN Administration SBP > 170 or DBP > 95 Hydralazine HCl 10 mg 09/16/22 09:34 Hydralazine 20 Mg/Ml Vial IV-PUSH 09/16/23 09:33 Q6H PRN Hypertension Hydromorphone HCl 1 mg 09/15/22 09:53 09/16/22 11:34 Hydromorphone 1 Mg/Ml Syringe IV-PUSH 1 mg Q2H PRN Administration Pain Hydromorphone HCl 0.5 mg 09/15/22 09:53 09/16/22 06:02 Hydromorphone 0.5 Mg/0.5 Ml Syringe IV-PUSH 0.5 mg Q2H PRN Administration Pain Magnesium Sulfate 2 gm in 50 mls @ 25 mls/hr 09/11/22 09:00 Magnesium Sulf 2gm-*Swfi* IV 09/11/23 08:59 DAILY PRN Magnesium < 1.6 Ipratropium Conner 0.5 mg 09/11/22 20:00 09/16/22 12:03 Ipratropium Conner 0.5 Mg/2.5 Ml Vial.Neb INHALATION 09/11/23 19:59 0.5 mg QID.RESP CECI Administration Magnesium Hydroxide 30 ml 09/15/22 09:53 Magnesium Hydroxide Susp 30 Ml Udc PO 09/15/23 09:52 HS PRN Constipation Ondansetron HCl 4 mg 09/15/22 09:53 Ondansetron 4 Mg/2 Ml Vial IV-PUSH 09/15/23 09:52 Q6H PRN Nausea And Vomiting Oxycodone HCl 5 mg 09/15/22 09:53 09/16/22 06:02 Oxycodone Ir 5 Mg Tablet PO 5 mg Q6HR PRN Administration Pain Scale 1 - 5 Oxycodone HCl 10 mg 09/15/22 09:53 Oxycodone Ir 5 Mg Tablet PO Q6HR PRN Pain Scale 6 - 10 Senna/Docusate Sodium 2 tab 09/15/22 21:00 09/16/22 10:32 Sennosides/Docusate 8.6-50mg 1 Tab Tablet PO 09/15/23 20:59 Not Given BID CECI Sodium Chloride 10 ml 09/15/22 09:53 09/16/22 08:14 Sodium Chloride 0.9 % 10 Ml Vial.Pf INJECTION 09/15/23 09:52 10 ml PRN PRN Administration To dilute Pepcid Documented By: Arnaud Max MD 09/16/22 1330 Signed By: <Electronically signed by Arnaud Max MD> 09/16/221 [facility] Work Phone: 1(501) 387-449606-27-2023 Progress note Author Moises Garcia [facility] September 16, 2022 7:37am Note Date/Time September 16, 2022 7:37 am [facility] [address] [place] [address] Neurosurgery Progress Note Signed Patient: Miriam German MR#: [id number] : 1955 Acct:[id number] Age/Sex: 67 / F Adm Date: 3 Loc: Room: [address] [place] [address] Type: ADM IN Attending Dr: Arnaud Max MD Copies to: ~ Date of Service: 09/16/2022 Subjective Subjective HPI: Patient in bed postoperative day #1. Says her neck is sore, thinks her right arm is slightly better than yesterday, but it hurts her neck when she moves. Exam Physical Exam Vital Signs: Temp Pulse Resp BP Pulse Ox O2 Del Method O2 Flow Rate 98.5 F 95 H 14 131/65 96 Nasal Cannula 3 09/15/22 23:00 09/16/22 05:35 09/16/22 05:35 09/16/22 05:35 09/16/22 05:35 09/16/22 05:35 09/16/22 05:35 Narrative: Incision clean and dry Upper and lower extremity strength and motion baseline right deltoid 3-/5 Brace fitting appropriately appears depressed Objective Lab Results Most Recent Labs: 09/16/22 04:21: PHA Creatinine Clear 72.44, Sodium 137, Potassium , Chloride 100, Carbon Dioxide 30.2, Anion Gap TNP, BUN 16, Creatinine 0.53 L, Est GFR (CKD-EPI) > 60.0, Glucose 124 H, Calcium 10.5 H 09/16/22 04:21: Corrected WBC 15.5 H, Uncorrected WBC Count 15.5 H, RBC 4.14, Hgb 12.8, Hct 38.0, MCV 91.9, MCH 31.0, MCHC 33.8, RDW 14.5, Plt Count 247, MPV 7.8, Neut % (Auto) 92.1, Lymph % (Auto) 4.4, Haskell % (Auto) 3.3, Eos % (Auto) 0.0, Baso % (Auto) 0.2, Nucleat RBC Rel Count 0.0, Neut # (Auto) 14.2 H, Lymph #(Auto) 0.7 L, Haskell # (Auto) 0.5, Eos # (Auto) 0.0, Baso # (Auto) 0.0 Assessment/Plan Assessment/Plan (1) C2 cervical fracture: Plan: Increase activity as tolerated with physical therapy.good rehab candidate Code(s): S12.100A - Unspecified displaced fracture of second cervical vertebra, initial encounter for closed fracture Status: Acute (2) Chronic respiratory failure with hypoxia and hypercapnia: Code(s): J96.11 - Chronic respiratory failure with hypoxia; J96.12 - Chronic respiratory failure with hypercapnia Status: Acute (3) COPD (chronic obstructive pulmonary disease): Code(s): J44.9 - Chronic obstructive pulmonary disease, unspecified Status: Acute (4) Sleep apnea: Code(s): G47.30 - Sleep apnea, unspecified Status: Acute Documented By: Moises Garcia MD 09/16/22 0724 Signed By: <Electronically signed by MD Moises Garcia> 09/16/22 0737 [facility] Work Phone: [phone]) 601-799706-26-2023 Progress note Author Arnaud Max [facility] September 15, 2022 6:20pm Note Date/Time September 15, 2022 6:20 pm [facility] [address] [place] [address] Hospitalist Progress Note Signed Patient: Miriam German MR#: [id number] : 1955 Acct:[id number] Age/Sex: 67 / F Adm Date: 3 Loc: Room: [address] [place] [address] Type: ADM IN Attending Dr: Arnaud Max MD Copies to: ~ Date of Service: 09/15/2022 Subjective Subjective Narrative: Patient was seen postop. She is in bed. Family is at bedside. She has no complaints. She is feeling much better. Neck pain is much improved. A level of pain is tolerable at this time. Heart is regular Lungs are clear Abdomen soft Neurological nonfocal Assessment and plan: 1. Unstable C2 odontoid fracture Status postsurgical repair today. No immediate complications. Further management per neurosurgery 2. Chronic hypoxic respiratory failure Continue oxygen by nasal cannula 3 L/min 3. Rheumatoid arthritis Continue baseline prednisone 10 mg twice daily after current steroid taper 4. Hypertension Continue current regimen DVT prophylaxis SCDs Exam Physical Exam Vital Signs: Temp Pulse Resp BP Pulse Ox O2 Del Method O2 Flow Rate 97.6 F 92 H 20 124/57 L 98 Nasal Cannula 3 09/15/22 16:00 09/15/22 17:06 09/15/22 17:06 09/15/22 17:00 09/15/22 17:00 09/15/22 17:07 09/15/22 17:07 Objective Lab Results 09/15/22 04:13 09/15/22 05:54 Meds Allergies and Active Meds Allergies No Known Allergies Allergy (Verified 09/10/22 17:55) Active Meds: Active Medications Generic Name Dose Route Start Last Admin Trade Name Margaret PRN Reason Stop Dose Admin Acetaminophen 650 mg 09/15/22 09:53 Acetaminophen 325 Mg Tablet PO 09/15/23 09:52 Q4H PRN Mild Pain Al Hydrox/Mg Hydrox/Simethicone 30 ml 09/15/22 09:53 Mag Hydrox/Al Hydrox/Simeth 30 Ml Udc PO 09/15/23 09:52 Q4H PRN Heartburn Amlodipine Besylate 2.5 mg 09/11/22 09:00 09/15/22 12:25 Amlodipine 2.5 Mg Tablet PO 09/11/23 08:59 Not Given DAILY CECI Cyclobenzaprine HCl 10 mg 09/15/22 09:53 Cyclobenzaprine 10 Mg Tablet PO 09/15/23 09:52 Q8HR PRN Muscle Spasm Dexamethasone Sodium Phosphate 4 mg 09/15/22 14:00 09/15/22 17:08 Dexamethasone Sod Phosphate 4 Mg/Ml Vial IV-PUSH 09/18/22 13:59 4 mg QID CECI Administration Taper Diphenhydramine HCl 25 mg 09/15/22 09:53 Diphenhydramine 25 Mg Capsule PO 09/15/23 09:52 Q6H PRN Itching Famotidine 20 mg 09/15/22 21:00 Famotidine/Pf 20 Mg/2 Ml Vial IV-PUSH 09/15/23 20:59 Q12HR CECI Guaifenesin 1,200 mg 09/10/22 21:00 09/15/22 11:33 Guaifenesin 600 Mg Tab.Er.12h PO 09/10/23 20:59 Not Given BID CECI Hydromorphone HCl 1 mg 09/15/22 09:53 Hydromorphone 1 Mg/Ml Syringe IV-PUSH Q2H PRN Pain Hydromorphone HCl 0.5 mg 09/15/22 09:53 09/15/22 14:24 Hydromorphone 0.5 Mg/0.5 Ml Syringe IV-PUSH 0.5 mg Q2H PRN Administration Pain Magnesium Sulfate 2 gm in 50 mls @ 25 mls/hr 09/11/22 09:00 Magnesium Sulf 2gm-*Swfi* IV 09/11/23 08:59 DAILY PRN Magnesium < 1.6 Lactated Ringer's 1,000 mls @ 20 mls/hr 09/15/22 05:41 09/15/22 10:40 Lactated Ringers IV 09/16/22 05:40 20 mls/hr .Q24H ONE Infusion Potassium Chloride/Sodium Chloride 1,000 mls @ 100 mls/hr 09/15/22 09:53 09/15/22 11:44 0.9 % Nacl-20 Meq Kcl IV 09/15/23 09:52 Not Given .Q10H CECI Cefazolin Sodium 1 gm in 50 mls @ 100 mls/hr 09/15/22 15:30 09/15/22 16:55 Ancef IV 09/16/22 07:59 100 mls/hr Q8H CECI Administration Ipratropium Conner 0.5 mg 09/11/22 20:00 09/15/22 17:06 Ipratropium Conner 0.5 Mg/2.5 Ml Vial.Neb INHALATION 09/11/23 19:59 0.5 mg QID.RESP CECI Administration Magnesium Hydroxide 30 ml 09/15/22 09:53 Magnesium Hydroxide Susp 30 Ml Udc PO 09/15/23 09:52 HS PRN Constipation Ondansetron HCl 4 mg 09/15/22 09:53 Ondansetron 4 Mg/2 Ml Vial IV-PUSH 09/15/23 09:52 Q6H PRN Nausea And Vomiting Oxycodone HCl 5 mg 09/15/22 09:53 09/15/22 12:25 Oxycodone Ir 5 Mg Tablet PO 5 mg Q6HR PRN Administration Pain Scale 1 - 5 Oxycodone HCl 10 mg 09/15/22 09:53 Oxycodone Ir 5 Mg Tablet PO Q6HR PRN Pain Scale 6 - 10 Senna/Docusate Sodium 2 tab 09/15/22 21:00 Sennosides/Docusate 8.6-50mg 1 Tab Tablet PO 09/15/23 20:59 BID CECI Sodium Chloride 10 ml 09/15/22 09:53 Sodium Chloride 0.9 % 10 Ml Vial.Pf INJECTION 09/15/23 09:52 PRN PRN To dilute Pepcid Documented By: Arnaud Max MD 09/15/221817 Signed By: <Electronically signed by Arnaud Max MD> 09/15/22 1829 [facility] Work Phone: [phone] Hospital Discharge instructions Additional Instructions REHAB TO MANAGE: PT/OT to eval and treat Monitor VS per protocol--HTN Maintain oxygen at 3l continuous--patient wears 3l at home Monitor Neuro. assessment--C2 fracture had C2 sublaminar wire using flexible cable with allograft fusion on 09/15/22 Monitor Respiratory assessment--Respiratory failure, COPD Maintain soft cervical collar Daily dressing change to left hand skin tear: *Clean with NS and pat dry. Skin prep the christine wound. Apply Hydrogel to the wound bed. *Top with Adaptic and 2x2 gauze. Secure with opsite. Dressing change every 3 days: Mepilex border foam to Coccyx for protection. Maintain high risk fall precautions [facility] Phone: [phone] Progress note Author Boni Lincoln [facility] September 14, 2022 5:21pm Note Date/Time September 14, 2022 5:21 pm [facility] [address] [place] [address] Hospitalist Progress Note Signed Patient: Miriam German MR#: [id number] : 1955 Acct:[id number] Age/Sex: 67 / F Adm Date: 3 Loc: Room: [address] [place] [address] Type: ADM IN Attending Dr: Boni Lincoln DO Copies to: ~ Date of Service: 09/14/2022 Subjective Subjective Narrative: Patient was seen and examined at bedside. No acute events overnight. Surgery tomorrow. Physical Examination: GENERAL APPEARANCE: Alert, up in bed AAOx3 HEENT: NCAT, MMM CARDIAC: Normal S1 and S2. No S3, S4 or murmurs. LUNGS: Clear to auscultation anteriorly ABDOMEN: Positive bowel sounds. Soft, nontender. No guarding or signs of an acute abdomen MUSCULOSKELETAL: No joint erythema or tenderness. EXTREMITIES: No clubbing, cyanosis or edema NEUROLOGICAL: Decreased shade matcher strength right upper extremity compared to the left, moves all 4 extremities spontaneously SKIN: Multiple areas of bruising/petechiae PSYCHIATRIC: Appropriate mood and affect Assessment and plan: 1. Unstable C2 odontoid fracture Neurosurgery to evaluate the patient, likely intervention Thursday. Appreciate pulmonology, cardiology preoperative recommendations. Monitor for hypotension, bradycardia postoperatively. At this time patient has blood pressures and heartrate on the higher end. Certainly at risk for adrenal insufficiency going forward. We will continue to monitor 2. Chronic hypoxic respiratory failure Patient has been on supplemental O2 since she had COVID infection last year. Wewill monitor the patient's vital signs and continue supplemental O2. Appreciate pulmonology recommendations 3. Rheumatoid arthritis Continue baseline prednisone 10 mg twice daily. 4. Hypertension Given patient's discomfort this is not unexpected to be on the higher side. We will continue her home amlodipine and monitor. IV hydralazine as needed can also be provided if this continues to rise Disposition: Patient is suffering cervical spine instability at the moment and will require consultation with neurosurgery for further evaluation. She will require continuous telemetry, daily labs and likely surgical intervention to stabilize this. She is thus admitted as an inpatient for a stay that will surpass greater than 2 midnights. Exam Physical Exam Vital Signs: Temp Pulse Resp BP Pulse Ox O2 Del Method O2 Flow Rate 98.1 F 101 H 18 126/78 98 Nasal Cannula 3 09/14/22 16:00 09/14/22 16:00 09/14/22 16:00 09/14/22 16:00 09/14/22 16:00 09/14/22 09:00 09/14/22 09:00 Objective Lab Results 09/14/22 04:20 09/14/22 04:20 Meds Allergies and Active Meds Allergies No Known Allergies Allergy (Verified 09/10/22 17:55) Active Meds: Active Medications Generic Name Dose Route Start Last Admin Trade Name Freq PRN Reason Stop Dose Admin Acetaminophen 650 mg 09/10/22 19:00 09/13/22 20:12 Acetaminophen 325 Mg Tablet PO 09/10/23 18:59 650 mg Q4H PRN Administration Mild Pain Amlodipine Besylate 2.5 mg 09/11/22 09:00 09/14/22 08:21 Amlodipine 2.5 Mg Tablet PO 09/11/23 08:59 2.5 mg DAILY CECI Administration Sodium Chloride 1,000 ml/ 0 ml 09/15/22 06:30 Gentamicin Sulfate 80 mg IRRIGATION 09/15/22 06:31 ONCE ONE Sodium Chloride 1,000 ml/ 0 ml 09/15/22 06:30 Gentamicin Sulfate 80 mg IRRIGATION 09/15/22 06:31 ONCE ONE Guaifenesin 1,200 mg 09/10/22 21:00 09/14/22 08:21 Guaifenesin 600 Mg Tab.Er.12h PO 09/10/23 20:59 1,200 mg BID CECI Administration Hydromorphone HCl 0.5 mg 09/10/22 19:00 Hydromorphone 0.5 Mg/0.5 Ml Syringe IV-PUSH Q2H PRN severe pain Magnesium Sulfate 2 gm in 50 mls @ 25 mls/hr 09/11/22 09:00 Magnesium Sulf 2gm-*Swfi* IV 09/11/23 08:59 DAILY PRN Magnesium < 1.6 Ipratropium Conner 0.5 mg 09/11/22 20:00 09/14/22 15:49 Ipratropium Conner 0.5 Mg/2.5 Ml Vial.Neb INHALATION 09/11/23 19:59 0.5 mg QID.RESP CECI Administration Ondansetron HCl 4 mg 09/10/22 19:00 Ondansetron 4 Mg/2 Ml Vial IV-PUSH 09/10/23 18:59 Q4H PRN Nausea And Vomiting Potassium Chloride 40 meq 09/11/22 09:00 Potassium Chloride Er 20 Meq Tab.Er.Prt PO 09/11/23 08:59 DAILY PRN Hypokalemia Prednisone 10 mg 09/10/22 21:00 09/14/22 08:21 Prednisone 10 Mg Tablet PO 09/10/23 20:59 10 mg BID CEIC Administration Tramadol HCl 50 mg 09/10/22 18:04 09/14/22 02:32 Tramadol 50 Mg Tablet PO 03/09/23 18:03 50 mg Q8H PRN Administration Pain Documented By: Boni Lincoln DO 09/14/22 17 19 Signed By: <Electronically signed by Boni Lincoln DO> 09/14/22 1721 [facility] Work Phone: [phone] Progress note Author Boni Lincoln [facility] September 13, 2022 4:52pm Note Date/Time September 13, 2022 4:52 pm [facility] [address] [place] [address] Hospitalist Progress Note Signed Patient: Miriam German MR#: [id number] : 1955 Acct:[id number] Age/Sex: 67 / F Adm Date: 3 Loc: Room: [address] [place] [address] Type: ADM IN Attending Dr: Boni Lincoln DO Copies to: ~ Date of Service: 09/13/2022 Subjective Subjective Narrative: Patient was seen and examined at bedside. No acute events overnight. Feeling well. Surgery Thursday Physical Examination: GENERAL APPEARANCE: Alert, up in bed AAOx3 HEENT: NCAT, MMM CARDIAC: Normal S1 and S2. No S3, S4 or murmurs. LUNGS: Clear to auscultation anteriorly ABDOMEN: Positive bowel sounds. Soft, nontender. No guarding or signs of an acute abdomen MUSCULOSKELETAL: No joint erythema or tenderness. EXTREMITIES: No clubbing, cyanosis or edema NEUROLOGICAL: Decreased shade matcher strength right upper extremity compared to the left, moves all 4 extremities spontaneously SKIN: Multiple areas of bruising/petechiae PSYCHIATRIC: Appropriate mood and affect Assessment and plan: 1. Unstable C2 odontoid fracture Neurosurgery to evaluate the patient, likely intervention Thursday. Appreciate pulmonology, cardiology preoperative recommendations. 2. Chronic hypoxic respiratory failure Patient has been on supplemental O2 since she had COVID infection last year. Wewill monitor the patient's vital signs and continue supplemental O2. Chest x-ray if needed. Appreciate pulmonology recommendations 3. Rheumatoid arthritis Continue baseline prednisone 10 mg twice daily. 4. Hypertension Given patient's discomfort this is not unexpected to be on the higher side. We will continue her home amlodipine and monitor. IV hydralazine as needed can also be provided if this continues to rise Disposition: Patient is suffering cervical spine instability at the moment and will require consultation with neurosurgery for further evaluation. She will require continuous telemetry, daily labs and likely surgical intervention to stabilize this. She is thus admitted as an inpatient for a stay that will surpass greater than 2 midnights. Exam Physical Exam Vital Signs: Temp Pulse Resp BP Pulse Ox O2 Del Method O2 Flow Rate 98.5 F 95 H 20 163/86 H 100 Nasal Cannula 2 09/13/22 11:39 09/13/22 16:15 09/13/22 16:15 09/13/22 11:39 09/13/22 11:39 09/13/22 16:00 09/13/22 16:00 Objective Lab Results 09/13/22 05:52 09/13/22 05:52 Meds Allergies and Active Meds Allergies No Known Allergies Allergy (Verified 09/10/22 17:55) Active Meds: Active Medications Generic Name Dose Route Start Last Admin Trade Name Freq PRN Reason Stop Dose Admin Acetaminophen 650 mg 09/10/22 19:00 09/13/22 10:42 Acetaminophen 325 Mg Tablet PO 09/10/23 18:59 650 mg Q4H PRN Administration Mild Pain Amlodipine Besylate 2.5 mg 09/11/22 09:00 09/13/22 08:50 Amlodipine 2.5 Mg Tablet PO 09/11/23 08:59 2.5 mg DAILY CECI Administration Sodium Chloride 1,000 ml/ 0 ml 09/15/22 06:30 Gentamicin Sulfate 80 mg IRRIGATION 09/15/22 06:31 ONCE ONE Sodium Chloride 1,000 ml/ 0 ml 09/15/22 06:30 Gentamicin Sulfate 80 mg IRRIGATION 09/15/22 06:31 ONCE ONE Guaifenesin 1,200 mg 09/10/22 21:00 09/13/22 08:50 Guaifenesin 600 Mg Tab.Er.12h PO 09/10/23 20:59 1,200 mg BID CECI Administration Hydromorphone HCl 0.5 mg 09/10/22 19:00 Hydromorphone 0.5 Mg/0.5 Ml Syringe IV-PUSH Q2H PRN severe pain Magnesium Sulfate 2 gm in 50 mls @ 25 mls/hr 09/11/22 09:00 Magnesium Sulf 2gm-*Swfi* IV 09/11/23 08:59 DAILY PRN Magnesium < 1.6 Ipratropium Conner 0.5 mg 09/11/22 20:00 09/13/22 16:16 Ipratropium Conner 0.5 Mg/2.5 Ml Vial.Neb INHALATION 09/11/23 19:59 0.5 mg QID.RESP CECI Administration Ondansetron HCl 4 mg 09/10/22 19:00 Ondansetron 4 Mg/2 Ml Vial IV-PUSH 09/10/23 18:59 Q4H PRN Nausea And Vomiting Potassium Chloride 40 meq 09/11/22 09:00 Potassium Chloride Er 20 Meq Tab.Er.Prt PO 09/11/23 08:59 DAILY PRN Hypokalemia Prednisone 10 mg 09/10/22 21:00 09/13/22 08:50 Prednisone 10 Mg Tablet PO 09/10/23 20:59 10 mg BID CECI Administration Tramadol HCl 50 mg 09/10/22 18:04 09/13/22 10:42 Tramadol 50 Mg Tablet PO 03/09/23 18:03 50 mg Q8H PRN Administration Pain Documented By: Boni Lincoln DO 09/13/22 16 52 Signed By: <Electronically signed by Boni Lincoln DO> 09/13/22 4979 [facility] Work Phone: [phone] Progress note Author Boni Lincoln [facility] September 12, 2022 6:26pm Note Date/Time September 12, 2022 6:26 pm [facility] [address] [place], [place] [id number] Hospitalist Progress Note Signed Patient: Miriam German MR#: [id number] : 1955 Acct:[id number] Age/Sex: 67 / F Adm Date: 3 Loc: 4 Room: [address] [place] [address] Type: ADM IN Attending Dr: Boni Lincoln DO Copies to: ~ Date of Service: 09/12/2022 Subjective Subjective Narrative: Patient was seen and examined at bedside. No acute events overnight. Feeling well. Surgery Thursday Physical Examination: GENERAL APPEARANCE: Alert, up in bed AAOx3 HEENT: NCAT, MMM CARDIAC: Normal S1 and S2. No S3, S4 or murmurs. LUNGS: Clear to auscultation anteriorly ABDOMEN: Positive bowel sounds. Soft, nontender. No guarding or signs of an acute abdomen MUSCULOSKELETAL: No joint erythema or tenderness. EXTREMITIES: No clubbing, cyanosis or edema NEUROLOGICAL: Decreased shade matcher strength right upper extremity compared to the left, moves all 4 extremities spontaneously SKIN: Multiple areas of bruising/petechiae PSYCHIATRIC: Appropriate mood and affect Assessment and plan: 1. Unstable C2 odontoid fracture Neurosurgery to evaluate the patient, likely intervention Thursday. Appreciate pulmonology, cardiology preoperative recommendations. 2. Chronic hypoxic respiratory failure Patient has been on supplemental O2 since she had COVID infection last year. Wewill monitor the patient's vital signs and continue supplemental O2. Chest x-ray if needed. Appreciate pulmonology recommendations 3. Rheumatoid arthritis Continue baseline prednisone 10 mg twice daily. 4. Hypertension Given patient's discomfort this is not unexpected to be on the higher side. We will continue her home amlodipine and monitor. IV hydralazine as needed can also be provided if this continues to rise Disposition: Patient is suffering cervical spine instability at the moment and will require consultation with neurosurgery for further evaluation. She will require continuous telemetry, daily labs and likely surgical intervention to stabilize this. She is thus admitted as an inpatient for a stay that will surpass greater than 2 midnights. Exam Physical Exam Vital Signs: Temp Pulse Resp BP Pulse Ox O2 Del Method O2 Flow Rate 98.5 F 95 H 18 148/87 H 99 Nasal Cannula 3 09/12/22 16:00 09/12/22 16:00 09/12/22 16:00 09/12/22 16:00 09/12/22 16:00 09/12/22 16:00 09/12/22 16:00 Objective Lab Results 09/12/22 04:28 09/12/22 04:28 Meds Allergies and Active Meds Allergies No Known Allergies Allergy (Verified 09/10/22 17:55) Active Meds: Active Medications Generic Name Dose Route Start Last Admin Trade Name Freq PRN Reason Stop Dose Admin Acetaminophen 650 mg 09/10/22 19:00 09/12/22 12:16 Acetaminophen 325 Mg Tablet PO 09/10/23 18:59 650 mg Q4H PRN Administration Mild Pain Amlodipine Besylate 2.5 mg 09/11/22 09:00 09/12/22 08:12 Amlodipine 2.5 Mg Tablet PO 09/11/23 08:59 2.5 mg DAILY CECI Administration Sodium Chloride 1,000 ml/ 0 ml 09/15/22 06:30 Gentamicin Sulfate 80 mg IRRIGATION 09/15/22 06:31 ONCE ONE Guaifenesin 1,200 mg 09/10/22 21:00 09/12/22 08:12 Guaifenesin 600 Mg Tab.Er.12h PO 09/10/23 20:59 Not Given BID CECI Hydromorphone HCl 0.5 mg 09/10/22 19:00 Hydromorphone 0.5 Mg/0.5 Ml Syringe IV-PUSH Q2H PRN severe pain Magnesium Sulfate 2 gm in 50 mls @ 25 mls/hr 09/11/22 09:00 Magnesium Sulf 2gm-*Swfi* IV 09/11/23 08:59 DAILY PRN Magnesium < 1.6 Ipratropium Conner 0.5 mg 09/11/22 20:00 09/12/22 15:56 Ipratropium Conner 0.5 Mg/2.5 Ml Vial.Neb INHALATION 09/11/23 19:59 0.5 mg QID.RESP CECI Administration Ondansetron HCl 4 mg 09/10/22 19:00 Ondansetron 4 Mg/2 Ml Vial IV-PUSH 09/10/23 18:59 Q4H PRN Nausea And Vomiting Potassium Chloride 40 meq 09/11/22 09:00 Potassium Chloride Er 20 Meq Tab.Er.Prt PO 09/11/23 08:59 DAILY PRN Hypokalemia Prednisone 10 mg 09/10/22 21:00 09/12/22 08:12 Prednisone 10 Mg Tablet PO 09/10/23 20:59 10 mg BID CECI Administration Tramadol HCl 50 mg 09/10/22 18:04 09/12/22 08:12 Tramadol 50 Mg Tablet PO 03/09/23 18:03 50 mg Q8H PRN Administration Pain Documented By: Boni Lincoln DO 09/12/22 18 25 Signed By: <Electronically signed by Boni Lincoln DO> 09/12/22 1824 [facility] Work Phone: [phone] 117-612506-23-2023 Progress note Author Kira Azar [facility] September 12, 2022 4:07pm Note Date/Time September 12, 2022 4:07 pm [facility] [address] [place] [address] Anesthesia Progress Note Signed Patient: Miriam German MR#: [id number] : 1955 Acct:[id number] Age/Sex: 67 / F Adm Date: 3 Loc: Room: [address] [place] [address] Type: ADM IN Attending Dr: Boni Lincoln DO Copies to: ~ Anesthesia Progress Note Narrative Narrative: Patient was seen and evaluated at the request of Dr. Garcia preoperatively for posterior cervical fusion of C1-2 due to C2 odontoid fracture. She is currentlyin a soft collar due to neck instability. 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 Prior to that she recovered from sepsis due to ankle hardware infection. Since these illnesses, she has been on home O2 anywhere from 3 to 4 L nasal cannula. She also has a history ofsleep apnea, COPD, rheumatoid arthritis and hypertension and is on chronic steroids. Blood gases revealed PCO2 in the 50s, therefore she is a chronic retainer. She presented to [facility] and was transferred over after having IV Solu-Medrol treatment. She is scheduled to have surgery on Thursday, September 15, 2022. She was seen by cardiology and cleared. Labs and imaging were reviewed. She is currently optimized for surgery without further testing. She will likely require fiberoptic intubation. This was discussed with the patient,however I informed her that the day of surgery anesthesia team would make the final determination. Her Mallampati score is 2 with adequate mouth opening, however she has a short thick neck with a soft collar in place currently. I will add a type and screen in preparation for Thursday. Documented By: Kira Azar DO 09/12/22 1559 Signed By: <Electronically signed by Kira Azar, > 09/12/22 8785 [facility] Work Phone: [phone] 321-788506-23-2023 Progress note Author Ailyn Hermosillo [facility] September 12, 2022 1:44pm Note Date/Time September 12, 2022 1:44 pm [facility] [address] [place] [address] Pulmonology Progress Note Signed Patient: Miriam German MR#: [id number] : 1955 Acct:[id number] Age/Sex: 67 / F Adm Date: 3 Loc: Room: [address] [place] [address] Type: ADM IN Attending Dr: Boni Lincoln DO Copies to: ~ Date of Service: 09/12/2022 Subjective Subjective Narrative: Patient reports no significant complaints today, laying flat in bed with neck collar on, states that her pain is under control in this position with collar support, denies dyspnea, or cough at this point. Blood gases showed well compensated mild hypercapnia with a CO2 of 50 and normal pH, excellent oxygenation on 3 L with a PO2 of over 128. Exam Physical Exam Vital Signs: Temp Pulse Resp BP Pulse Ox O2 Del Method O2 Flow Rate 98.6 F 98 H 18 139/86 100 Nasal Cannula 3 09/12/22 11:35 09/12/22 12:10 09/12/22 12:10 09/12/22 11:35 09/12/22 11:35 09/12/22 11:35 09/12/22 11:35 Narrative: General: Patient is alert awake responds appropriately in no distress Cardiovascular: S1, S2, normal sounds, no murmurs or gallops noted, regular rhythm Lungs: Adequate air entry bilaterally, clear to auscultation Extremities: No significant peripheral edema, peripheral pulses adequate Neurologic: Alert, awake, orientedx3, no focal weakness or speech abnormality Objective Intake and Output I&O - Last 24 Hours: Intake & Output 09/11/22 09/12/22 09/12/22 23:59 07:59 15:59 Intake Total 150 / 800 100 / 100 Balance 150 / 800 100 / 100 Weight 90.1 kg Labs 09/12/22 04:28 09/12/22 04:28 Assessment/Plan Assessment/Plan (1) Chronic respiratory failure with hypoxia and hypercapnia: (2) COPD (chronic obstructive pulmonary disease): (3) Sleep apnea: Plan Patient is stable from the respiratory standpoint to undergo her cervical spine surgery, continue close monitoring, oxygen therapy, would initiate BiPAP therapyas needed if there are clinical symptoms of dyspnea, worsening hypoxia, or hypersomnolence. Continue bronchodilator therapy, she is on 20 mg prednisone daily chronically for rheumatoid arthritis, so would be adequate for stress dosing but can be increased if any symptoms of adrenal insufficiency Documented By: Ailyn Hermosillo MD 09/12/220 Signed By: <Electronically signed by Ailyn Hermosillo MD> 09/12/22 1344 [facility] Work Phone: [phone] Consult note Author Moises Garcia [facility] September 12, 2022 11:27am Note Date/Time September 12, 2022 11:2 6am [facility] [address] [place] [address] Neurosurgery Consult Note Signed with John Patient: Miriam German MR#: [id number] : 1955 Acct:[id number] Age/Sex: 67 / F Adm Date: 3 Loc: Room: 0N5725-7 Type: ADM IN Attending Dr: Boni Lincoln DO Copies to: DO Moises Sullivan MD Michael R. Frings, DO~ ADDENDUM1 Should be noted that on physical exam the patient's deltoid bicep and tricep on the right were 4/5 when compared to the left the left was stronger than the right. There may have been slight weakness on the left is difficult to tell what the patient's baseline is. Addendum Documented By: MD Moises Garcia 09/12/221126 Addendum Signed By: <Electronically signed by MD Moises Garcia> 09/12/22 1127 HPI History of Present Illness Consult Date: 09/12/2022 Requesting Provider: CC: Boni Lincoln DO Reason for Consult: C2 fracture History of Present Illness: 67-year-old female history of rheumatoid arthritis and hypertension. Patient was transferred from [facility] where she was hospitalized as an inpatient after presenting with generalized weakness and back pain. She was recently diagnosed with pneumonia on prior visit 09/03/2022. She has been experiencing increasingly frequent falls and generalized weakness prompting her to come to the ER. On 4L nasal cannula baseline. Patient complains of ongoing pain in her neck as well as paresthesias in hands bilaterally, denies fever or chills, reports ports chronic shortness of breath. Review of Systems Review of Systems All other systems reviewed & are negative unless noted below or in HPI PMFSH Vaccinated for COVID-19?: No Medical History Ankle fracture, right COVID-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 Former smoker Fracture of sacrum Hypertension Rheumatoid arthritis Sepsis Social History Smoking Status: Former smoker Tobacco Type: cigarettes Substance Use Type: None Meds Medications and Allergies Allergies No Known Allergies Allergy (Verified 09/10/22 17:55) Home Medications amlodipine 2.5 mg tablet 2.5 mg PO DAILY 09/10/22 [History Confirmed 09/10/22] prednisone 10 mg tablet 10 mg PO BID 09/10/22 [History Confirmed 09/10/22] tramadol 50 mg tablet 50 mg PO Q8H PRN Pain 09/10/22 [History Confirmed 09/10/22] Exam Physical Exam Vital Signs: Temp Pulse Resp BP Pulse Ox O2 Del Method O2 Flow Rate 97.5 F L 94 H 18 160/98 H 100 Nasal Cannula 3 09/12/22 07:57 09/12/22 08:22 09/12/22 08:22 09/12/22 07:57 09/12/22 07:57 09/12/22 08:00 09/12/22 08:00 Narrative: Neurologic: Patient is alert and oriented to time place and person cooperative and gives a good history Sensory: Normal light touch upper and lower extremities and trunk throughout allmajor dermatomes Spine: No palpable tenderness cervical spine, thoracic spine, lumbar spine Motor: Deltoid bicep and tricep, iliopsoas quadricep anterior tibial gastrocnemius are grossly 5/5 content management consultant are 4/5 bilaterally Cerebellar: No lead pipe rigidity normal rapid alternating movements Reflexes: 0-1+ upper and lower extremities bilaterally with no clonus, negative Brandon sign Cranial nerve examination: Cranial nerve I: smell is intact Cranial nerve II: vision full to all quadrants bilateral Cranial nerve III: pupils are equal round reactive to light unable to do a funduscopic examination Cranial nerve IV through : Extraocular motion full to all quadrants Cranial nerve V: V1 V2 V3 intact Cranial nerve VII: Face symmetrical bilaterally Cranial nerve VIII: Hearing intact bilaterally Cranial nerve IX through XI: Patient can phonate well able to swallow palate elevates able to shrug shoulders Cranial nerve XII: Tongue midline hips: normal range of motion without Marvin's sign Skin: Multiple areas of bruising and petechiae Extremities: 0-1+ pulses upper and lower Abdomen: Soft nontender Lungs: Clear bilaterally Heart: Regular rate and rhythm without murmur rub or gallop Neck: Supple Head: Atraumatic Results Lab Results Labs: Laboratory Results - Last 48 hrs. 09/12/22 05:31: Sample Site Left radial, ABG pH 7.39, ABG pCO2 50.6 H*, ABG pO2 129.8 H*, ABG HCO3 29.6 H, ABG Total CO2 31.2 H, ABG O2 Saturation 98.5, ABG O2 Content 8.4, ABG Base Excess 3.6 H, O2 Delivery Device Nasal cannula, FiO2 32, Critical Value 09/12/22 04:28: PHA Creatinine Clear 72.70, Sodium 139, Potassium 4.9, Chloride 101, Carbon Dioxide 33.2 H, Anion Gap 9.7, BUN 17, Creatinine 0.46 L, Est GFR (CKD- EPI) > 60.0, Glucose 119 H, Calcium 10.0 09/12/22 04:28: Corrected WBC 11.9 H, Uncorrected WBC Count 11.9 H, RBC 4.25, Hgb 13.1, Hct 39.2, MCV 92.3, MCH 30.8, MCHC 33.3, RDW 14.5, Plt Count 223, MPV 7.5, Neut % (Auto) 86.5, Lymph % (Auto) 8.0, Haskell % (Auto) 4.8, Eos % (Auto) 0.2, Baso % (Auto) 0.5, Nucleat RBC Rel Count 0.0, Neut # (Auto) 10.3 H, Lymph #(Auto) 1.0, Haskell # (Auto) 0.6, Eos # (Auto) 0.0, Baso # (Auto) 0.1 09/11/22 04:42: PHA Creatinine Clear 72.70, Sodium 140, Potassium 4.1, Chloride 103, Carbon Dioxide 31.9 H, Anion Gap 9.2, BUN 18, Creatinine 0.51 L, Est GFR (CKD- EPI) > 60.0, Glucose 116 H, Calcium 9.9 09/11/22 04:42: Corrected WBC 10.9, Uncorrected WBC Count 10.9, RBC 4.07, Hgb 12.7, Hct 37.6, MCV 92.5, MCH 31.3, MCHC 33.9, RDW 14.5, Plt Count 221, MPV 7.5,Neut % (Auto) 86.2, Lymph % (Auto) 7.6, Haskell % (Auto) 5.7, Eos % (Auto) 0.0, Baso % (Auto) 0.5, Nucleat RBC Rel Count 0.1, Neut # (Auto) 9.4 H, Lymph # (Auto) 0.8 L, Haskell # (Auto) 0.6, Eos # (Auto) 0.0, Baso # (Auto) 0.[address] scan - cervical: report reviewed and image reviewed MRI - neck: report reviewed and image reviewed Additional studies: MRI of the cervical spine 09/08/2022 and 09/11/2022 X-ray of cervical spine 09/09/2021 Assessment/Plan (1) C2 cervical fracture: Plan: In discussing this patient's problems with is probable that sometime in June when she fell she noticed the numbness and weakness in her hands this is most likely the time she sustained a fracture in her neck. From that time her balance and hands of gotten worse right being worse than left. This needs to bestabilized the patient has problems including chronic prednisone use, oxygen dependence. She has a very short neck. Given all these findings and especiallythe patient's low activity level. My recommendation would be for a stabilization only of this fracture it may or may not heal over time for her in the long run. I would recommend where wiring of the C1-2 ring with interposed bone and cement over the wire. I will discuss this with the patient in detail probable date for surgery will be Thursday. I think given this patient's overall situation and chronicity this may be the best option for her. I will be sure todiscuss this thoroughly with the patient's son prior to surgery. Code(s): S12.100A - Unspecified displaced fracture of second cervical vertebra, initial encounter for closed fracture Status: Acute (2) Rheumatoid arthritis: Code(s): M06.9 - Rheumatoid arthritis, unspecified Status: Acute (3) Hypertension: Code(s): I10 - Essential (primary) hypertension Status: Acute (4) COVID-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: Code(s): U09.9 - Post COVID-19 condition, unspecified Status: Acute Documented By: Moises Garcia MD 09/12/22 1036 Signed By: <Electronically signed by MD Moises Garcia> 09/12/22 [address] [facility] Work Phone: 1(426) 418-250506-22-2023 Progress note Author Boni Lincoln [facility] September 11, 2022 6:18pm Note Date/Time September 11, 2022 6:18 pm [facility] [address] [place] [address] Hospitalist Progress Note Signed Patient: Miriam German MR#: [id number] : 1955 Acct:[id number] Age/Sex: 67 / F Adm Date: 3 Loc: Room: 5R4676-5 Type: ADM IN Attending Dr: Boni Lincoln DO Copies to: ~ Date of Service: 09/11/2022 Subjective Subjective Narrative: This patient is a 67-year-old female with a history of rheumatoid arthritis and hypertension. She presents as a transfer from [facility] where she was hospitalized as an inpatient after presenting with generalized weakness and backpain on 09/05/2022. She had recently been diagnosed with pneumonia on a prior EDvisit 09/03/2022. She had been experiencing increasingly frequent falls and generalized weakness prompting her to come back to the ER. Reportedly wears 4 Lnasal cannula at baseline. The accompanying records provided by [facility] are essentially worthless providing only repeated copies of ER visitation on 09/05. Per the report I received from Dr. Alexandre earlier today the patient was hospitalized there and started on IV Solu-Medrol. She was noted to have elevated ESR and CRP levels and developed progressing right upper extremity and neck pain prompting CT imaging and MRI imaging which confirmed a C2 odontoid fracture thought to be unstable. Subsequently the patient was placed in a c-collar. Neurosurgery was contacted at our facility who agreed to see the patient under consultation. On arrival to the progressive unit the patient is alert and oriented x3 in soft c-collar. She complains of some ongoing pain in her neck as well as paresthesias bilaterally in her hands. She denies fevers or chills. Reports chronic shortness of breath, being on 3 L nasal cannula. No cough presently. Physical Examination: GENERAL APPEARANCE: Alert, up in bed AAOx3 HEENT: NCAT, MMM CARDIAC: Normal S1 and S2. No S3, S4 or murmurs. LUNGS: Clear to auscultation anteriorly ABDOMEN: Positive bowel sounds. Soft, nontender. No guarding or signs of an acute abdomen MUSCULOSKELETAL: No joint erythema or tenderness. EXTREMITIES: No clubbing, cyanosis or edema NEUROLOGICAL: Decreased shade matcher strength right upper extremity compared to the left, moves all 4 extremities spontaneously SKIN: Multiple areas of bruising/petechiae PSYCHIATRIC: Appropriate mood and affect Assessment and plan: 1. Unstable C2 odontoid fracture Neurosurgery to evaluate the patient, likely intervention Thursday. Appreciate pulmonology, cardiology preoperative recommendations. 2. Chronic hypoxic respiratory failure Patient has been on supplemental O2 since she had COVID infection last year. Wewill monitor the patient's vital signs and continue supplemental O2. Chest x-ray if needed. Appreciate pulmonology recommendations 3. Rheumatoid arthritis Continue baseline prednisone 10 mg twice daily. 4. Hypertension Given patient's discomfort this is not unexpected to be on the higher side. We will continue her home amlodipine and monitor. IV hydralazine as needed can also be provided if this continues to rise Disposition: Patient is suffering cervical spine instability at the moment and will require consultation with neurosurgery for further evaluation. She will require continuous telemetry, daily labs and likely surgical intervention to stabilize this. She is thus admitted as an inpatient for a stay that will surpass greater than 2 midnights. Exam Physical Exam Vital Signs: Temp Pulse Resp BP Pulse Ox O2 Del Method O2 Flow Rate 98.9 F 87 18 136/85 99 Nasal Cannula 3 09/11/22 16:00 09/11/22 16:00 09/11/22 16:00 09/11/22 16:00 09/11/22 16:00 09/11/22 16:00 09/11/22 16:00 Objective Lab Results 09/11/22 04:42 09/11/22 04:42 Meds Allergies and Active Meds Allergies No Known Allergies Allergy (Verified 09/10/22 17:55) Active Meds: Active Medications Generic Name Dose Route Start Last Admin Trade Name Freq PRN Reason Stop Dose Admin Acetaminophen 650 mg 09/10/22 19:00 09/11/22 16:08 Acetaminophen 325 Mg Tablet PO 09/10/23 18:59 650 mg Q4H PRN Administration Mild Pain Amlodipine Besylate 2.5 mg 09/11/22 09:00 09/11/22 08:27 Amlodipine 2.5 Mg Tablet PO 09/11/23 08:59 2.5 mg DAILY CECI Administration Guaifenesin 1,200 mg 09/10/22 21:00 09/11/22 08:27 Guaifenesin 600 Mg Tab.Er.12h PO 09/10/23 20:59 Not Given BID CECI Hydromorphone HCl 0.5 mg 09/10/22 19:00 Hydromorphone 0.5 Mg/0.5 Ml Syringe IV-PUSH Q2H PRN severe pain Magnesium Sulfate 2 gm in 50 mls @ 25 mls/hr 09/11/22 09:00 Magnesium Sulf 2gm-*Swfi* IV 09/11/23 08:59 DAILY PRN Magnesium < 1.6 Ipratropium Conner 0.5 mg 09/11/22 20:00 Ipratropium Conner 0.5 Mg/2.5 Ml Vial.Neb INHALATION 09/11/23 19:59 QID.RESP CECI Ondansetron HCl 4 mg 09/10/22 19:00 Ondansetron 4 Mg/2 Ml Vial IV-PUSH 09/10/23 18:59 Q4H PRN Nausea And Vomiting Potassium Chloride 40 meq 09/11/22 09:00 Potassium Chloride Er 20 Meq Tab.Er.Prt PO 09/11/23 08:59 DAILY PRN Hypokalemia Prednisone 10 mg 09/10/22 21:00 09/11/22 08:26 Prednisone 10 Mg Tablet PO 09/10/23 20:59 10 mg BID CECI Administration Tramadol HCl 50 mg 09/10/22 18:04 09/11/22 08:33 Tramadol 50 Mg Tablet PO 03/09/23 18:03 50 mg Q8H PRN Administration Pain Documented By: Boni Lincoln DO 09/11/22 18 17 Signed By: <Electronically signed by Boni Lincoln DO> 09/11/22 18[address] [facility] Work Phone: 1([phone]) 935-863306-22-2023 Consult note Author Srikanth Johnson [facility] September 11, 2022 5:10pm Note Date/Time September 11, 2022 5:04 pm [facility] [address] [place] [address] Cardiology Consult Note Signed Patient: Miriam German MR#: [id number] : 1955 Acct:[id number] Age/Sex: 67 / F Adm Date: 3 Loc: Room: [address] [place] [address] Type: ADM IN Attending Dr: Boni iLncoln DO Copies to: DO Boni Sullivan DO W Scott Sheldon, DO~ Cardiology HPI History of Present Illness Consult Date: 09/11/22 Reason for Consult: Preoperative clearance HPI: Ms. German is a 67 year old female seen in cardiology consultation at the request of hospitalist and neurosurgery and general anesthesia for cardiac clearance prior to neurosurgery for acute C2 fracture following a fall at home. Past medical history is noted for COVID-19 last year with long-haul syndrome, hypertension, rheumatoid arthritis, morbid obesity. From review of the records it appears she was on Levaquin for pneumonia There is no ECG available at the moment; however, ECG at my request reveals sinus rhythm with normal axis, no acute ischemia, RSR prime pattern is otherwisenormal. She has no prior history of myocardial infarction, revascularization, stroke, thromboembolic or bleeding disorder In review of records she did have a mildly elevated BNP of 316, reportedly rightlower lobe infiltrate on x-ray by report, she denies hypertension or diabetes, however blood pressures at [facility] emergency room and during her hospitalization were moderately elevated. The benefits clearly outweigh the potential cardiovascular risks in regards to C2 stabilization. She has no evidence of acute coronary syndrome clinically, noheart failure, no arrhythmias Revised cardiac risk score via Carroll criteria is 0.4% estimated risk for myocardial infarction, major adverse cardiac events and represents very low risk for noncardiac/nonvascular surgery. Review of Systems Review of Systems All other systems reviewed & are negative unless noted below or in HPI Constitutional Constitutional: Reports as per HPI Eyes Eyes: Reports system reviewed and no additional complaints, except as documented ENT Ears, Nose, Mouth, and Throat: Reports system reviewed and no additional complaints, except as documented Cardiovascular Cardiovascular: Reports system reviewed and no additional complaints, except as documented, Denies chest pain, Denies chest pain at rest, Denies chest pain withactivity, Denies dyspnea on exertion, Denies orthopnea, Denies radiating jaw, neck or arm pain and Denies syncope Respiratory Respiratory: Reports system reviewed and no additional complaints, except as documented Gastrointestinal Gastrointestinal: Reports system reviewed and no additional complaints, except as documented Genitourinary Genitourinary: Reports system reviewed and no additional complaints, except as documented Musculoskeletal Musculoskeletal: Reports as per HPI and Reports back pain Integumentary/Breasts Skin/Breast: Reports system reviewed and no additional complaints, except as documented Neurologic Neurologic: Reports system reviewed and no additional complaints, except as documented PMFSH Vaccinated for COVID-19?: No Medical History (Updated 09/11/22 @ 17:09 by Srikanth Johnson DO) Ankle fracture, right COVID-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 Former smoker Fracture of sacrum Hypertension Rheumatoid arthritis Sepsis Social History Smoking Status: Former smoker Tobacco Type: cigarettes Substance Use Type: None Meds Medications and Allergies Allergies No Known Allergies Allergy (Verified 09/10/22 17:55) Home Medications amlodipine 2.5 mg tablet 2.5 mg PO DAILY 09/10/22 [History Confirmed 09/10/22] prednisone 10 mg tablet 10 mg PO BID 09/10/22 [History Confirmed 09/10/22] tramadol 50 mg tablet 50 mg PO Q8H PRN Pain 09/10/22 [History Confirmed 09/10/22] Exam Physical Exam Vital Signs: Temp Pulse Resp BP Pulse Ox O2 Del Method O2 Flow Rate 98.9 F 87 18 136/85 99 Nasal Cannula 3 09/11/22 16:00 09/11/22 16:00 09/11/22 16:00 09/11/22 16:00 09/11/22 16:00 09/11/22 16:00 09/11/22 16:00 Const General: cooperative and comfortable Nutritional Appearance: obese Orientation: alert, awake and oriented x3 HEENT Head: normal to inspection Neck Neck: other (Currently in soft collar) Chest Chest palpation & inspection: normal inspection of the chest Resp Effort & Inspection: normal respiratory effort Auscultation: clear to auscultation bilaterally Cardio Palpation: normal PMI Rate: regular rate Rhythm: regular rhythm Heart Sounds: S1 normal, S2 normal and no murmurs Pulses: radial pulses present and femoral pulses present GI Inspection: obesity Palpation: soft Skin General: no rashes or lesions noted Neuro General: patient alert, patient awake and patient oriented x3 Cognition: normal cognition Speech: speech normal Extrem General: no clubbing, cyanosis or edema Results Labs 09/11/22 04:42 09/11/22 04:42 Lab results: CBC 09/11/22 Range/Units 04:42 RBC 4.07 (3.60-5.00) X10E6/uL Hgb 12.7 (11.8-15.4) g/dL Hct 37.6 (34.0-46.4) % Plt Count 221 (150-450) x10E3/uL Neut # (Auto) 9.4 H (1.8-7.7) x10E3/uL Lymph # (Auto) 0.8 L (1.00-4.8) x10E3/uL Haskell # (Auto) 0.6 (0.0-0.8) x10E3/uL Eos # (Auto) 0.0 (0.0-0.45) x10E3/uL Baso # (Auto) 0.0 (0.0-0.2) x10E3/uL Comprehensive Metabolic Panel 09/11/22 Range/Units 04:42 Sodium 140 (136-145) mmol/L Potassium 4.1 (3.5-5.1) mmol/L Chloride 103 (98-107) mmol/L Carbon Dioxide 31.9 H (21.0-31.0) mmol/L BUN 18 (7-25) mg/dL Creatinine 0.51 L (0.60-1.20) mg/dL Glucose 116 H (70-100) mg/dL Calcium 9.9 (8.6-10.3) mg/dL Intake and Output 09/11/22 09/11/22 09/11/22 07:59 15:59 23:59 Intake Total 150 / 650 500 / 650 Balance 150 / 650 500 / 650 Intake: Oral 150 / 650 500 / 650 Other: # Unmeasured Voids 2 2 Weight 89 kg Date of Last Bowel Movement 09/09/22 Patient Weight 09/11/22 23:59 Weight 89 kg EKG Interpretations EKG EKG results cardiology: WNL and sinus rhythm A&P - Cardiology (1) Rheumatoid arthritis: Code(s): M06.9 - Rheumatoid arthritis, unspecified (2) Hypertension: Code(s): I10 - Essential (primary) hypertension (3) COVID-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: Code(s): U09.9 - Post COVID-19 condition, unspecified (4) C2 cervical fracture: Code(s): S12.100A - Unspecified displaced fracture of second cervical vertebra, initial encounter for closed fracture Documented By: Srikanth Johnson DO 09/11/221651 Signed By: <Electronically signed by Srikanth Johnson DO> 09/11/22 2017 [facility] Work Phone: 1([phone]) 484-405806-22-2023 Consult note Author Kira Gill [facility] September 11, 2022 4:15pm Note Date/Time September 11, 2022 4:01 pm [facility] [address] [place] [address] Pulmonology Consult Note Signed Patient: Miriam German MR#: [id number] : 1955 Acct:[id number] Age/Sex: 67 / F Adm Date: 3 Loc: Room: [address] [place] [address] Type: ADM IN Attending Dr: Boni Lincoln DO Copies to: DO Kira Sullivan MD Michael R. Frings, ~ HPI Date/Time of Consultation: Date of Service: 09/11/2022 Time of Service: 13:36 Consulting Provider: Kira Gill Requesting Provider: Boni Lincoln History of Present Illness History of present illness: Ms. German is a 67 year old female seen at the request of the neurosurgery service for evaluation prior to repair of unstable odontoid fracture. Patient previously has been followed by Dr. Bhumika stacy in [place] and has had a longstanding history of supplemental oxygen use at 3 L/min continuously. Patient reportedly has a history of COPD though she denies ever having had pulmonary function test. She does admit to approximately an [id number] smoking history and is chronically on oxygen at 3 L/min nasal cannula. Patient also has been on chronic prednisone (most recently 10 mg twice daily) for long-term rheumatoid arthritis. The patient has had recurring issues with falls and neck pain and work-up ultimately revealed a unstable odontoid fracture which will require surgical intervention. The patient denies fever, shaking shiveringchills, or sweats. She admits to some cough which is nonproductive without wheezing nor pleuritic chest pain. She denies sputum production she has very limited activity and rides her lawnmower to go get the mail. She notes marked dyspnea but has no stairs to better quantify the degree of dyspnea. 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 Former smoker Fracture of sacrum Hypertension Rheumatoid arthritis Sepsis Social History Smoking Status: Former smoker Tobacco Type: cigarettes Substance Use Type: None Meds Medications and Allergies Allergies No Known Allergies Allergy (Verified 09/10/22 17:55) Home Medications amlodipine 2.5 mg tablet 2.5 mg PO DAILY 09/10/22 [History Confirmed 09/10/22] prednisone 10 mg tablet 10 mg PO BID 09/10/22 [History Confirmed 09/10/22] tramadol 50 mg tablet 50 mg PO Q8H PRN Pain 09/10/22 [History Confirmed 09/10/22] Exam Physical Exam Vital Signs: Temp Pulse Resp BP Pulse Ox O2 Del Method O2 Flow Rate 97.9 F 97 H 18 162/98 H 99 Nasal Cannula 3 09/11/22 11:39 09/11/22 11:39 09/11/22 11:39 09/11/22 11:39 09/11/22 11:39 09/11/22 11:39 09/11/22 11:39 Const General: cooperative Nutritional Appearance: obese Orientation: alert and awake HEENT Head: normal to inspection Ears: hearing grossly normal bilaterally and external ears normal Nose: external nose normal Face and sinus: normal facial exam Eyes Eyelids: eyelids normal Sclera: sclerae normal Neck Neck: other (Soft cervical collar) Chest Chest palpation & inspection: normal inspection of the chest Resp Effort & Inspection: normal respiratory effort Auscultation: clear to auscultation bilaterally, diminished lung sounds, no rales, no rhonchi and no wheezes Cardio Rate: regular rate Rhythm: regular rhythm Heart Sounds: S1 normal, S2 normal and no murmurs GI Inspection: normal to inspection Palpation: soft and nontender General: deferred Skin General: no rashes or lesions noted (Warm and dry) Extrem General: no pedal edema Results Intake and Output I&O - Last 24 Hours: Intake & Output 09/10/22 09/11/22 09/11/22 23:59 07:59 15:59 Intake Total 450 / 450 150 / 150 Balance 450 / 450 150 / 150 Weight 89.5 kg 89 kg Labs 09/11/22 04:42 09/11/22 04:42 Imaging and Cardiology Chest x-ray: Status: image reviewed by me Additional comments: Date of Service: 09/11/22 XR/XR chest 1V portable: pre-op ,hypoxia SINGLE VIEW CHEST CLINICAL HISTORY: Preop for cervical fracture. Hypoxia COMPARISON: Chest 09/05/2022 FINDINGS: Cardiomegaly with vascular congestion. Left lung airspace disease and likely underlying pleural effusion similar to the prior study. No pneumothorax or free air. XR/XR chest 1V portable IMPRESSION: NO SIGNIFICANT CHANGE IN CHEST FINDINGS. CT scan - chest: Status: image reviewed by me Additional comments: To my review, the scan of September 05, 2022 presumably from the [facility] reveals no clear evidence of subpleural honeycomb changes with increased interstitial markings which is relatively subpleural and predominantly in the left base with equivocal distal bronchiectasis. Assessment/Plan (1) Chronic respiratory failure with hypoxia: Plan Hospital day #0 for patient on chronic oxygen with presumptive diagnosis of COPDthough never verified by pulmonary function test with patient chronically on oxygen at 3 L/min nasal cannula. Patient has also been chronically on steroids (most recently prednisone 20 mg total daily) due to rheumatoid arthritis. The patient's symptoms at the present time do not suggest an acute exacerbation of COPD. The patient is optimized from a pulmonary perspective though will obtain baseline ABG with slightly elevated bicarbonate level to determine if she has significant CO2 retention. Patient reports prior tachycardia with albuterol andwe will start the patient on Atrovent only. We could consider levalbuterol (Xopenex) but the patient is essentially at her baseline with marked debility. Patient has been optimized for surgery which is ultimately necessary given the unstable odontoid fracture. Patient should be treated with perioperative stressdose steroids given her prolonged steroid use for her rheumatoid arthritis. I have no other recommendations. We will follow with you Documented By: Kira Gill MD 3 [id number] Signed By: <Electronically signed by MD Kira Gill> 09/11/22 1615 [facility] Work Phone: 1([phone]) 816-149906-21-2023 History and physical note Author Boni Lincoln [facility] September 10, 2022 7:21pm Note Date/Time September 10, 2022 6:11 pm [facility] [address] [place] [address] Hospitalist H&P Signed Patient: Miriam German MR#: [id number] : 1955 Acct:[id number] Age/Sex: 67 / F Adm Date: 3 Loc: Room: [address] [place] [address] Type: ADM IN Attending Dr: Boni Lincoln DO Copies to: DO Boni Sullivan DO~ HPI DATE OF EXAMINATION: 09/10/22 CHIEF COMPLAINT: Odontoid fracture HISTORY OF PRESENT ILLNESS: This patient is a 67-year-old female with a history of rheumatoid arthritis and hypertension. She presents as a transfer from [facility] where she was hospitalized as an inpatient after presenting with generalized weakness and backpain on 09/05/2022. She had recently been diagnosed with pneumonia on a prior EDvisit 09/03/2022. She had been experiencing increasingly frequent falls and generalized weakness prompting her to come back to the ER. Reportedly wears 4 Lnasal cannula at baseline. The accompanying records provided by [facility] are essentially worthless providing only repeated copies of ER visitation on 09/05. Per the report I received from Dr. Alexandre earlier today the patient was hospitalized there and started on IV Solu-Medrol. She was noted to have elevated ESR and CRP levels and developed progressing right upper extremity and neckpain prompting CT imaging and MRI imaging which confirmed a C2 odontoid fracturethought to be unstable. Subsequently the patient was placed in a c-collar. Neurosurgery was contacted at our facility who agreed to see the patient under consultation. On arrival to the progressive unit the patient is alert and oriented x3 in soft c-collar. She complains of some ongoing pain in her neck as well as paresthesias bilaterally in her hands. She denies fevers or chills. Reports chronic shortness of breath, being on 3 L nasal cannula. No cough presently. Physical Examination: GENERAL APPEARANCE: Alert, up in bed AAOx3 HEENT: NCAT, MMM CARDIAC: Normal S1 and S2. No S3, S4 or murmurs. LUNGS: Clear to auscultation anteriorly ABDOMEN: Positive bowel sounds. Soft, nontender. No guarding or signs of an acute abdomen MUSCULOSKELETAL: No joint erythema or tenderness. EXTREMITIES: No clubbing, cyanosis or edema NEUROLOGICAL: Decreased shade matcher strength right upper extremity compared to the left, moves all 4 extremities spontaneously SKIN: Multiple areas of bruising/petechiae PSYCHIATRIC: Appropriate mood and affect Assessment and plan: 1. Unstable C2 odontoid fracture Unfortunately [facility] did not send over any useful records including any cervical spine imaging, not CT nor MRI reports. When requesting records from [facility] our nursing staff was met with significant resistance from staff at this facility. We will attempt again to obtain these records. Patient will need to remain in c- collar. Will provide pain control. She has no signs of spinal shock, her paresthesias of the bilateral hands and right upper extremity weakness do suggest some ongoing cervical spine disease however none that would seemingly require urgent intervention. 2. Chronic hypoxic respiratory failure Patient has been on supplemental O2 since she had COVID infection last year. Wewill monitor the patient's vital signs and continue supplemental O2. Chest x-ray if needed. 3. Rheumatoid arthritis Continue baseline prednisone 10 mg twice daily. 4. Hypertension Given patient's discomfort this is not unexpected to be on the higher side. We will continue her home amlodipine and monitor. IV hydralazine as needed can also be provided if this continues to rise Disposition: Patient is suffering cervical spine instability at the moment and will require consultation with neurosurgery for further evaluation. She will require continuous telemetry, daily labs and likely surgical intervention to stabilize this. She is thus admitted as an inpatient for a stay that will surpass greater than 2 midnights. Review of Systems Review of Systems All other systems reviewed & are negative unless noted below or in HPI [facility] Medical History (Updated 09/10/22 @ 18:50 by Isabel Houston RN) Ankle fracture, right Fracture of sacrum Hypertension Sepsis Social History Smoking Status: Former smoker Tobacco Type: cigarettes Substance Use Type: None Meds Medications and Allergies Allergies No Known Allergies Allergy (Verified 09/10/22 17:55) Home Medications amlodipine 2.5 mg tablet 2.5 mg PO DAILY 09/10/22 [History Confirmed 09/10/22] prednisone 10 mg tablet 10 mg PO BID 09/10/22 [History Confirmed 09/10/22] tramadol 50 mg tablet 50 mg PO Q8H PRN Pain 09/10/22 [History Confirmed 09/10/22] Exam Physical Exam Vital Signs: Temp Pulse Resp BP Pulse Ox O2 Del Method O2 Flow Rate 97.8 F 88 18 152/102 H 100 Nasal Cannula 3 09/10/22 17:55 09/10/22 17:55 09/10/22 17:55 09/10/22 17:55 09/10/22 17:55 09/10/22 17:55 09/10/22 17:55 Assessment & Plan IP vs OBS Justification Based on differential dx, clinical care plan, and risk of adverse events, if untreated, in my clinical judgement this patient requires an acute care setting as: INPATIENT because of an expectation of an over 2 midnight stay. Estimated length of stay (# of days): 4 Documented By: Boni Lincoln DO 09/10/22 18 09 Signed By: <Electronically signed by Boni Lincoln DO> 09/10/221920 [facility] Work Phone: 1(484) 488-399306-21-2023 Evaluation note* Encounter Date Diagnosis Assessment Notes Treatment Notes Treatment Clinical Notes Aug, Closed odontoid fracture with routine healing, subsequent encounter (ICD-10 - S12.100D) [facility] Other 06-17-2023 History of Present illness Narrative* BryanMumtaz lomasDO - 09/06/2022 7:02 PM EDT Images from the original note were not included. EMERGENCY TRIAGE, TREAT AND TRANSPORT (ET3) DOCUMENTATION OF TELEHEALTH VISIT Date / Time: 09/05/2022 / 5 Name: Miriam German : 1955 SSN: [id number] EMS Agency: [facility] [x] Verbal consent obtained [] Implied consent - patient with potential emergency medical condition requiring assessment of capacity to refuse treatment and/or transport VITAL SIGNS: see flowsheet documentation Reason for Telehealth Visit: Chief Complaint Patient presents with Fall History of Present Illness: 67 yo female with weakness and fall unable to get up No LOC. No AC. No ETOH. Denies pain or injury. Pt sts she was seen 3 days ago in ED, dx w/ PNA and started on antibiotics. Reportedly she is on 4L NC all the time but it is not clear why that is. Additional pertinent PMHx, SocHx, FamHx: PMH morbid obesity, HTN, recent PNA diagnosis Meds Tramadol, omnicef, prednisone, levoquin, amlodipine Social lives alone Review of Systems: Denies the following: CP, abd pain, NVD Exam: General: Awake, no distress ENT: normocephalic, atraumatic Pulmonary: No respiratory distress Cardiovascular: Well perfused Neurologic: Oriented to person, place, time and events. Moving all extremities equally. Psychiatric: Appropriate. Good insight and judgement. Medical Decision Makin yo female was at home when she had general weakness and slid to the floor. No AC, LOC or ETOH. Denies injury. EMS assisted pt up and she is ambulating w/ her walker at baseline. She has declined EMS transport. I expressed concern for her recent PNA dx, oxygen requirement, generalized weakness and her report that her symptoms are not improving despite taking antibiotics. I am concerned she could get worse and is not in a safe place to care for herself alone. Pt expressed concern that I could not guarantee that the hospital would admit her and she has not ride to get back home if the ED doesn't admit patient. Pt expressed understanding of my concerns. She has medical decision making capacity to refuse transport after informed discussion. Disposition Supported by Telehealth Assessment: ET3 transport decisions: Refused transport EMS Disposition Reported: Same ET3 Encounter Completed by: Mumtaz Jean Baptiste DO documented in this [id number] Evaluation note* Encounter Date Diagnosis Assessment Notes Treatment Notes Treatment Clinical Notes Aug, Hypoxemia (ICD-10 - R09.02) Psats > 95% - instructed to wean oxygen by 1L/min as long as Psats > 90% Aug, Chronic bronchitis, mucopurulent (ICD-10 - J41.1) DARI, LABA result in tachycardia. Instructed to use Mucinex and continue deep breathing/cough exercises. Aug, New daily persistent headache (ICD-10 - G44.52) Appears tolerable, CT w/ mastoiditis of unknown significance Not characteristic of migraine but more typical of daily tension headache. Continue Tylenol and add Tramadol as needed. ER for increased pain, N/V or confusion Aug, Mastoiditis of both sides (ICD-10 - H70.93) Tender over the mastoid process on the right. TM intact and translucent. Completed Augmentin x 10 days Continue Levaquin Refer to ENT Aug, Primary hypertension (ICD-10 - I10) This patient is instructed to consume a healthy, low-fat, low-salt diet. They are also encouraged to continue exercise to achieve/maintain a normal BMI. Aug, Dysfunction of both eustachian tubes (ICD-10 - H69.83) Continue prednisone, add Flonase and saline NS daily. Refer to ENT Aug, 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 (ICD-10 - M05.741) Weaning Prednisone. 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 [facility] Other 06-02-2023 Evaluation note* Encounter Date Diagnosis Assessment Notes Treatment Notes Treatment Clinical Notes Aug, New daily persistent headache (ICD-10 - G44.52) [facility] Other 05-18-2023 NoteProcedure: Ultrasound-guided right glenohumeral joint drainage. Clinical Information: 67-year-old female with right shoulder joint effusion. Comparison: Right shoulder MRI 06/18/2022. Consent: The following were explained to the patient prior to the procedure: purpose and nature of the procedure, method by which the procedure will be performed, risks, complications and expected benefits/effects of the procedure, risk of not accepting the procedure, reasonable alternatives and the right to refuse the procedure. The patient understood and written signature was obtained stating her understanding. Procedure: Real-time grayscale imaging was utilized for guidance throughout the procedure. A safe site of approach to the glenohumeral joint effusion was identified at the anterior right shoulder. Anterior right shoulder was prepped and draped in usual sterile fashion. 2% lidocaine was used to anesthetize the skin and underlying soft tissues. A subcentimeter dermatotomy was performed. A 5 [place] [employer]oph[employer] catheter needle was advanced into the anterior right glenohumeral joint. 28 mL of thick orange fluid was aspirated. The catheter needle was removed and the area dressed with an adhesive bandage. The patient tolerated the procedure well and was discharged to home with routine postprocedure instructions. EBL: None. Complications: None. Findings: Moderate right glenohumeral joint effusion. Successful advancement of the needle into the right glenohumeral joint space terminating at the anterior right humeral head. Markedly decreased right glenohumeral joint effusion. IMPRESSION: Technically successful right glenohumeral joint drainage. No complications. Thank you for the opportunity to participate in the care of your patient. Final Dictated by: Madison BUSTILLOS, Barrington Ratliff Dictated DT/TM: 08/07/2022 9:59 am Signed by: Madison BUSTILLOS, Barrington Ratliff Signed (Electronic Signature): 08/07/2022 10:05 am (If Report Is Signed, Electronically Signed in Other Vendor System)[facility]05-11-2023 NotePatient Education Materials Name: Miriam German Current Date: 07/31/2022 07:43:50 [place] : 1955 The following sheet(s) are the Patient Education Leaflets for Miriam German [employer] IMAGING DISCHARGE INSTRUCTIONS DISCHARGE INSTRUCTIONS Do not drive, operate machinery or drink alcohol until tomorrow a.m. Do not smoke today. Stay with a responsible adult tonight if at all possible Do not make any legal or important decisions for 24 hours SPECIAL INSTRUCTION Activity: No lifting for 24 hours. May resume regular activity after 24 hours. Avoid stairs until fully awake. Diet: Drink plenty of fluids. May resume your previous diet. Procedure Site Care: Keep dressing clean and dry for 24 hours. You may change or remove your dressing the next day. You may shower the next day. Specific Procedure Information: The procedure you have had today was called a (an) ___US Guided Joint (Right Shoulder) Fluid Drainage__. FOLLOW UP CARE If you have any questions or problems regarding your procedure, like abnormal bleeding or bruising to procedure site, abnormal drainage from the procedure site or increased fever, please call the health care provider that order the test or go straight to your local emergency department. Please follow up with ___Dr Boni Paris, DO__for continued care. Thank you for choosing [facility] for your care. IS IT A STROKE? Remember BE FAST and Check for these signs: BALANCE Feeling dizzy or have loss of balance? Eyes Any vision Changes? FACE Does the face look uneven? ARM Does one arm drift down? SPEECH Does their speech sound strange? TIME Call at any sign of stroke Heart Attack Signs Chest discomfort: Most heart attacks involve discomfort in the center of the chest and lasts more than a few minutes, or goes away and comes back. It can feel like uncomfortable pressure, squeezing, fullness or pain. Discomfort in upper body: Symptoms can include pain or discomfort in one or both arms, back, neck, jaw or stomach Shortness of breath: With or without discomfort Other signs: Breaking out in a cold sweat, nausea, or lightheaded Remember, MINUTES DO MATTER. If you experience any of these heart attack warning signs, call to get immediate medical attention! Thank you for choosing [facility] Patient and Family Resources COVID vaccinations are offered at most retail pharmacies or your local health department. For more information, go to [email or web address]. If you received a COVID vaccine while at the hospital, you may need to schedule an appointment to receive your second dose. For the Pfizer vaccine: a second dose at least 21 days after the first dose. For the Moderna vaccine: second dose at least 28 days after the first dose. For the Mario and Mario vaccine: no second dose is required. [facility] Poison Help line: [facility] Crisis Hotline: National Suicide and Crisis Lifeline: [address] [place] Tobacco Quit Line: [facility] [address] [place] [address], [place]: [phone] For the disposal of all unused and/or prescription medications (including opioid/narcotic medications), [facility] has two medication collection boxes: 1) at the [facility] and 2) at [place] [facility] [place]05-10-2023 Evaluation note* Encounter Date Diagnosis Assessment Notes Treatment Notes Treatment Clinical Notes July, Primary hypertension (ICD-10 - I10) This patient is instructed to consume a healthy, low-fat, low-salt diet. They are also encouraged to continue exercise to achieve/maintain a normal BMI. July, Inflammatory polyarthropathy (ICD-10 - M06.4) Intolerant to multiple DMARDs Prednisone controlling inflammation and pain at expense of cushinoid appearance. Advise no change at this time but would like to refer back to Rheumatology for evauation July, Chronic bronchitis, mucopurulent (ICD-10 - J41.1) Mucinex as needed, DARI as needed, continued supplemental oxygen to maintain sats > 88%. Cough and deep breathing exercises July, Hypoxemia (ICD-10 - R09.02) Continue supplemental oxygen to maintain sats > 90%. Continue HHN/cough and deep breathing to clear secretions. 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 Not sure can test while taking Prednisone. July, Chronic venous insufficiency (ICD-10 - I87.2) Avoid salt and elevate lower extremities, support stockings, inspect legs and feet daily for blisters and ulcerations. July, Primary osteoarthritis of right shoulder (ICD-10 - M19.011) Requires opiate therapy to continue w/ ADL and sleep. This patient requires opiate use on a daily basis to control pain.This patient does not exhibit drug-seeking or aberrant behavior.This patient is able to continue with ADL, with an adequate quality of life, that they would not be able to achieve without the prescription pain medication.There has been no surgical treatment recommended for this condition.Use of nonopiate treatment should be continued, such as nonstrenuous and aquatic exercises.This patient has a pain management contract and they have been counseled on safe storage of the medication.They have been counseled on the risks of concomitant use with alcohol or sedating meds. PDMP is being followed and this patient's OARRS report is being monitored every 90 days. July, 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 (ICD-10 - M05.741) Unable to tolerate DMARDs, presently controlled w/ steroids w/ side effects. Plan to refer back to Rheum after shoulder surgery. [facility] Other 05-10-2023 Evaluation note* Encounter Date Diagnosis Assessment Notes Treatment Notes Treatment Clinical Notes July, Primary hypertension (ICD-10 - I10) This patient is instructed to consume a healthy, low-fat, low-salt diet. They are also encouraged to continue exercise to achieve/maintain a normal BMI. July, Inflammatory polyarthropathy (ICD-10 - M06.4) Intolerant to multiple DMARDs Prednisone controlling inflammation and pain at expense of cushinoid appearance. Advise no change at this time but would like to refer back to Rheumatology for evauation July, Chronic bronchitis, mucopurulent (ICD-10 - J41.1) Mucinex as needed, DRAI as needed, continued supplemental oxygen to maintain sats > 88%. Cough and deep breathing exercises July, Hypoxemia (ICD-10 - R09.02) Continue supplemental oxygen to maintain sats > 90%. Continue HHN/cough and deep breathing to clear secretions. 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 Not sure can test while taking Prednisone. July, Chronic venous insufficiency (ICD-10 - I87.2) Avoid salt and elevate lower extremities, support stockings, inspect legs and feet daily for blisters and ulcerations. July, Primary osteoarthritis of right shoulder (ICD-10 - M19.011) Requires opiate therapy to continue w/ ADL and sleep. This patient requires opiate use on a daily basis to control pain.This patient does not exhibit drug-seeking or aberrant behavior.This patient is able to continue with ADL, with an adequate quality of life, that they would not be able to achieve without the prescription pain medication.There has been no surgical treatment recommended for this condition.Use of nonopiate treatment should be continued, such as nonstrenuous and aquatic exercises.This patient has a pain management contract and they have been counseled on safe storage of the medication.They have been counseled on the risks of concomitant use with alcohol or sedating meds. PDMP is being followed and this patient's OARRS report is being monitored every 90 days. July, 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 (ICD-10 - M05.741) Unable to tolerate DMARDs, presently controlled w/ steroids w/ side effects. Plan to refer back to Rheum after shoulder surgery. July, Disorder of both eustachian tubes (ICD-10 - H69.93) No treatment necessary, likely weather/pollen related. EAC patent w/ normal TM's per examination in HPI. Vasalva maneuver to open ET and Flonase NS recommended. [facility] Other 02-09-2023 Evaluation note* Encounter Date Diagnosis Assessment Notes Treatment Notes Treatment Clinical Notes Apr, Primary hypertension (ICD-10 - I10) Apr, High risk medication use (ICD-10 - Z79.899) Apr, Fatigue, unspecified type (ICD-10 - R53.83) Apr, 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 (ICD-10 - M05.741) Apr, Vitamin D deficiency (ICD-10 - E55.9) [facility] Other 02-08-2023 Evaluation note* Encounter Date Diagnosis Assessment Notes Treatment Notes Treatment Clinical Notes Apr, Hypoxemia (ICD-10 - R09.02) Maintain Psat 92-96%, requires continuous oxygen supplementation at 3L/min. Needs concentrator as portable unit she presently is using is to heavy and results in restricting her MRADL Apr, Simple chronic bronchitis (ICD-10 - J41.0) Mucinex for cough, hydrate. Declines Rx for inhalers Apr, Primary hypertension (ICD-10 - I10) This patient is instructed to consume a healthy, low-fat, low-salt diet. They are also encouraged to continue exercise to achieve/maintain a normal BMI. 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 Apr, Cigarette nicotine dependence in remission (ICD-10 - F17.211) Apr, Cervical spondylolysis (ICD-10 - M43.02) ROM exercises, heat and ice. Discussed referral for injections. Apr, COVID-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 (ICD-10 - U09.9) Healthy diet, keep active, consistent sleep routine [facility] Other 12-21-2022 Telephone encounter Note* Telephone Encounter - Noreen Garcia RN - 03/12/2022 9:33 AM EST Images from the original note were not included. Most recent visit in Rheumatology was on 02/22/2021 with Tom Welch MD No future appointments in Rheumatology CBC (last 3 years, up to 5 values) WBC RBC Hgb Hct MCV RDW Plt 02/09/21 0948 10.3 4.56 14.1 42.8 94 15.2 230 11/09/20 1443 10.1 4.90 14.6 44.8 91 15.7 195 Basic Metabolic Panel Na K Cl CO2 Gap Glu BUN Cr Ca 02/09/21 0948 0.60 LFT's (last 3 years, up to 5 values) T Prot Albumin D Bili T Bili Alk Phos ALT AST 02/09/21 0948 6.3 3.8 <0.10 0.7 68 24 23 11/09/20 1443 6.8 4.0 0.10 0.7 62 24 24 No records found for TST-PPD, intradermal (PPD) (CVX=96) [facility] Work Phone: 1(408) 679-584412-21-2022 Miscellaneous Notes* Telephone Encounter - Noreen Garcia RN - 03/12/2022 9:33 AM EST Images from the original note were not included. Most recent visit in Rheumatology was on 02/22/2021 with Tom Welch MD No future appointments in Rheumatology CBC (last 3 years, up to 5 values) WBC RBC Hgb Hct MCV RDW Plt 02/09/21 0948 10.3 4.56 14.1 42.8 94 15.2 230 11/09/20 1443 10.1 4.90 14.6 44.8 91 15.7 195 Basic Metabolic Panel Na K Cl CO2 Gap Glu BUN Cr Ca 02/09/21 0948 0.60 LFT's (last 3 years, up to 5 values) T Prot Albumin D Bili T Bili Alk Phos ALT AST 02/09/21 0948 6.3 3.8 <0.10 0.7 68 24 23 11/09/20 1443 6.8 4.0 0.10 0.7 62 24 24 No records found for TST-PPD, intradermal (PPD) (CVX=96) documented in this [id number] Telephone encounter Note* Telephone Encounter - Jocelyn Rodarte - 10/13/2021 10:28 AM EDT Existing RX should have refills. [id number] Miscellaneous Notes* Telephone Encounter - Jocelyn Rodarte - 10/13/2021 10:28 AM EDT Existing RX should have refills. documented in this [id number] Telephone encounter Note* Telephone Encounter - Chris Love - 09/26/2021 4:05 PM EDT Sent pt mychart msg [id number] Miscellaneous Notes* Telephone Encounter - Chris Love - 09/26/2021 4:05 PM EDT Sent pt mychart msg * Telephone Encounter - Tom Welch MD - 09/26/2021 3:54 PM EDT Needs f/u visit documented in this [id number] Telephone encounter Note* Telephone Encounter - Tom Welch MD - 09/26/2021 3:54 PM EDT Needs f/u visit [id number] Hospital course Narrative* Sunni Mary RN - 08/21/2021 3:06 PM EDT Report called to Kitty at [facility]. No further questions or concerns at this time. 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 Awaiting transport scheduled for 3pm documented in this encounterBON [employer] Phone: 1(167) 511-527806-01-2022 History of Present illness Narrative* Michelle Dunaway RD, LD - 08/21/2021 12:42 PM EDT Comprehensive Nutrition Assessment Type and Reason for Visit: Initial (LOS) Nutrition Recommendations/Plan: 1. Continue current diet. Encourage/monitor PO intakes as tolerated. Provide Ensure Enlive ONS x 2 per day. 2. Monitor labs, weights, and plan of care. Malnutrition Assessment: Malnutrition Status: At risk for malnutrition (Comment) (08/21/21 1241) Context: Acute Illness Findings of the 6 clinical characteristics of malnutrition: Energy Intake: 75% or less of estimated energy requirements for 7 or more days Weight Loss: No significant weight loss - Weight fluctuations noted. 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 Admitted d/t shoulder pain and lower abdominal pain. Pt with h/o fall and Rheumatoid Arthritis. During admission pt s/p IR right shoulder aspiration (08/15/21), OR for right ankle hardware removal, right shoulder I&D (08/16/21), and IR pubic symphysis aspiration (08/17/21). Pt has been tolerating an oral diet with variable PO intakes of 25-100% of meals. Weight fluctuations noted per chart review. Labs reviewed: K 3.0 mmol/L. Meds include: Colace, Klor-Con, Prednisone. Nutrition Related Findings: Labs/Meds reviewed. Last BM 08/20. Wound Type: Surgical Incision,Multiple Current Nutrition Intake & Therapies: Average Meal Intake: 26-50%,51-75%,76-100% (Variable PO intakes) Average Supplements Intake: None Ordered ADULT DIET; Regular Anthropometric Measures: Height: 5' 4 (162.6 cm) [place] Body Weight (IBW): 120 lbs (55 kg) Admission Body Weight: 220 lb 0.3 oz (99.8 kg) Current Body Weight: 234 lb 12.6 oz (106.5 kg), 195.7 % IBW. Weight Source: Bed Scale Current BMI (kg/m2): 40.3 Usual Body Weight: (220-234 lb per chart review) BMI Categories: Obese Class 3 (BMI 40.0 or greater) Estimated Daily Nutrient Needs: Energy Requirements Based On: Formula Weight Used for Energy Requirements: Current Energy (kcal/day): 1800 kcals/day Weight Used for Protein Requirements: [place] Protein (g/day): 80 gm pro/day Method Used for Fluid Requirements: Other - [place] Segtn Fluid (ml/day): 2000 mL/day or per MD Nutrition Diagnosis: Inadequate oral intake related to (current condition; appetite) as evidenced by intake 26-50%,intake 51-75% (variable PO intakes) Nutrition Interventions: Food and/or Nutrient Delivery: Continue Current Diet,Start Oral Nutrition Supplement Nutrition Education/Counseling: No recommendation at this time Coordination of Nutrition Care: Continue to monitor while inpatient Goals: Previous Goal Met: (Goal Set) Goals: Meet at least 75% of estimated needs,prior to discharge Nutrition Monitoring and Evaluation: Behavioral-Environmental Outcomes: None Identified Food/Nutrient Intake Outcomes: Food and Nutrient Intake,Supplement Intake Physical Signs/Symptoms Outcomes: Biochemical Data,GI Status,Fluid Status or Edema,Hemodynamic Status,Nutrition Focused Physical Findings,Skin,Weight Discharge Planning: Continue current diet Michelle Dunaway RD, ANNA Contact: [phone] * Dilan Jerome MD - 08/21/2021 10:57 AM EDT Images from the original note were not included. [facility] Office: [phone] Anthony Cano DO, Leighton Johnson DO, Tom Duran DO, William Cornell DO, Frances Brown MD, Loretta Strauss MD, Ivonne Escobar MD, Sherry Dover MD, Nina Jaimes MD, Gil Mack MD, Shahid Lara MD, Kira Reid DO, Tino Guajardo DO, Cecy Mercedes MD, Johann Jimenez DO, MD Rena, Therese Lynne MD, Luis Angel Kwon MD, Boni Cano DO, Preethi Collins MD, Jaime Orr MD, Dilan Jerome MD, Valerie Miller CNP, Hina Granados CNP, Juan Carlos Mosqueda CNP, Amira Morgan CNP, Barbara Feliciano CNP, Rory Peralta CNP, Barrington Rodriguez PA-C, Ludy Good, MANOLO, Regina Delvalle, GINNY, Liliya Gambino, GINNY, Evie Tavares CNP, Gabby Hanson, LAVERNE, [place] DNP, Mildred Auguste CNP, Lili Palmer CNP, Ashia Fu, GINNY [facility] IN-PATIENT SERVICE [facility] Progress Note 08/21/2021 10:57 AM Name: Miriam German Acct: [id number] Room: IP Day: 7 Admit Date: 08/14/2021 5:10 PM PCP: Bhumika Stacy, DO Code Status: Full Code Subjective: C/C: Chief Complaint Patient presents with Shoulder Pain Septic arthritis to R shoulder, possible pelvic sepsis Fall Interval History Status: improved. Pt doing well pain is much improved may not need as much oxycodone will dc with 12 only And she can be sent later today to rehab facility in [place] Brief History: Per my partner: Miriam German is a 66 y.o. female initially presented to [facility] ED for evaluationof acute onset lower abdominal pain and right shoulder pain. She was ill-appearing and in acute distress on exam in the emergency department. She underwent CTA of the chest abdomen pelvis which revealed joint/bursal fluid and gas with surrounding soft tissue edema of the right shoulder concerning for septic arthritis. She also had focal inflammatory change and soft tissue gas just above the pubicsymphysis with a vertical nondisplaced fracture of the left pubic body which appears subacute. She has subacute/chronic vertical insufficiency fractures of the bilateral sacral jhoana and nondisplaced fractures of the bilateral L5 and right L4 transverse processes. WBC was noted to be elevated in theED with a left shift. Alk phos was elevated as was her CRP. Orthopedic surgery evaluated the patient in [place]'s ER and recommended the patient be transferred to higher level of care. CVC was placed.She was started on broad-spectrum antibiotics for presumed sepsis. It should be noted that her skinwas mottled at time of arrival. She was admitted to the intensive care unit. Per critical care H&P, patient's son reported that he has mother was ambulatory with a walker and was the best she had looked in months. Blood cultures drawn from [place] ED returned positive. Orthopedic surgery and general surgery involved in patient's care. Repeat CT imaging was performed which reveals persistent gas in the right shoulder and brachialis muscle. IR aspirated her right shoulder successfully and performed a lumbar puncture which was unsuccessful.. Cultures have returned positive for MSSA. Rheumatology was consulted due to longstanding history of rheumatoid arthritis. She is on chronic steroids and is intolerant of DMARDs. She was given a stress dose of steroids. She underwent right shoulder arthroscopy with incision and drainage and incision and drainage with ankle hardware removal on the right on 08/16/2021. Her blood pressure has remained normal and she has been stable for transfer out of the intensive care unit. Vancomycin has been discontinued and she has been started on nafcillin 2 g every 4 hours. She was seen and examined this morning. She is complaining of worsening swelling in her right arm and in her right leg. She is 8 L positive since admission. Reports constipation. Reports that she is urinating well. Pain is not controlled well. Review of Systems: Constitutional: negative for chills, fevers, sweats Respiratory: negative for cough, dyspnea on exertion, shortness of breath, wheezing Cardiovascular: negative for chest pain, chest pressure/discomfort, lower extremity edema, palpitations Gastrointestinal: negative for abdominal pain, constipation, diarrhea, nausea, vomiting Neurological: negative for dizziness, headache Medications: Allergies: No Known Allergies Current Meds: Scheduled Meds: predniSONE 7.5 mg Oral Daily potassium chloride 40 mEq Oral QAM AC spironolactone 12.5 mg Oral Daily lidocaine 1 % injection 5 mL IntraDERmal Once sodium chloride flush 5-40 mL IntraVENous 2 times per day ceFAZolin 2,000 mg IntraVENous Q8H polyethylene glycol 17 g Oral Daily furosemide 40 mg Oral Daily docusate sodium 100 mg Oral BID enoxaparin 40 mg SubCUTAneous Daily sodium chloride flush 5-40 mL IntraVENous 2 times per day Continuous Infusions: sodium chloride 25 mL (08/21/21 8337) sodium chloride PRN Meds: metoprolol, sodium chloride flush, sodium chloride, loperamide, methocarbamol, traZODone,oxyCODONE, magnesium hydroxide, sodium chloride flush, sodium chloride, acetaminophen OR acetaminophen Data: Past Medical History: has a past medical history of Rheumatoid arthritis (HCC) and Staphylococcal arthritis of right shoulder (HCC). Social History: Family History: History reviewed. No pertinent family history. Vitals: BP (!) 151/82 Pulse 95 Temp 97.7 F (36.5 C) (Oral) Resp 29 Ht 5' 4 (1.626 m) Wt 234 lb 12.6 oz (106.5 kg) SpO2 92% BMI 40.30 kg/m Temp (24hrs), Av.4 F (36.9 C), Min:97.7 F (36.5 C), Max:99.2 F (37.3 C) No results for input(s): POCGLU in the last 72 hours. I/O (24Hr): No intake or output data in the 24 hours ending 08/21/21 1057 Labs: Hematology: Recent Labs 08/19/2163508/20/2191708/21/21 0513 WBC 9.5 9.2 7.5 RBC 3.77* 3.61* 3.61* HGB 10.9* 10.8* 10.6* HCT 36.0* 33.6* 32.9* MCV 95.5 93.1 91.1 MCH 28.9 29.9 29.4 MCHC 30.3 32.1 32.2 RDW 14.4 14.6* 14.8* PLT 177 169 203 MPV 9.6 9.6 9.7 CRP -- 151.9* -- Chemistry: Recent Labs 08/19/2163508/20/2118 08/21/21 0513 NA 142 138 139 K 3.0* 2.8* 3.0* CL 106 103 103 CO2 24 24 23 GLUCOSE 81 87 79 BUN 11 7* 5* CREATININE 0.38* 0.34* 0.28* MG 1.7 2.0 1.8 ANIONGAP 12 11 13 LABGLOM >60 >60 >60 GFRAA >60 >60 >60 CALCIUM 8.7 8.8 8.5* No results for input(s): PROT, LABALBU, LABA1C, L8TUOAS, F3VKNKP, FT4, TSH, AST, ALT, LDH, GGT, ALKPHOS, LABGGT, BILITOT, BILIDIR, AMMONIA, AMYLASE, LIPASE, LACTATE, CHOL, HDL, LDLCHOLESTEROL, CHOLHDLRATIO, TRIG, VLDL, DFY18OR, PHENYTOIN, PHENYF, URICACID, POCGLU in the last 72 hours. ABG:No results found for: POCPH, PHART, PH, POCPCO2, AEB7MAW, PCO2, POCPO2, PO2ART, PO2, POCHCO3, CXL1FWC, HCO3, NBEA, PBEA, BEART, BE, THGBART, THB, SMY6OQW, KMDS4CNN, R5PDDNOQ, O2SAT, FIO2 Lab Results Component Value Date/Time SPECIAL L WRIST 1 ML 08/16/2021 04:01 PM Lab Results Component Value Date/Time CULTURE (A) 08/17/2021 11:17 AM STAPHYLOCOCCUS AUREUS LIGHT GROWTH This isolate is methicillin susceptible. CULTURE No anaerobic organisms isolated at 4 days. 08/17/2021 11:17 AM Radiology: XR SHOULDER RIGHT (MIN 2 VIEWS) Result Date: 08/14/2021 No acute abnormality. XR ANKLE RIGHT (MIN 3 VIEWS) Result Date: 08/16/2021 Degenerative changes seen at the ankle with postoperative change and interval removal of the ORIF hardware. XR ANKLE RIGHT (MIN 3 VIEWS) Result Date: 08/15/2021 No acute bony abnormality or radiographic evidence of hardware failure or surrounding lucency. Degenerative changes at the ankle. Bimalleolar soft tissue swelling. Plantar calcaneal spur. CT HEAD WO CONTRAST Result Date: 08/15/2021 No acute intracranial abnormality. If there remains concern for meningitis contrast-enhanced MRI suggested CT CERVICAL SPINE WO CONTRAST Result Date: 08/15/2021 No acute abnormality of the cervical spine. Degenerative disc disease of C4-C5, C5-C6 and C6-C7 disc, with osteoarthritis of the right facet joints. CT THORACIC SPINE WO CONTRAST Result Date: 08/15/2021 [id number] compression fracture of the T4 vertebral body, of undetermined age. Clinical correlation suggested. Hypoventilatory changes in the posterior aspects of the lungs. CT LUMBAR SPINE WO CONTRAST Result Date: 08/15/2021 Bilateral sacral wing insufficiency fractures. Degenerative changes as described above. CT HUMERUS RIGHT W CONTRAST Addendum Date: 08/15/2021 ADDENDUM: Critical results were called by Dr. Mik Cantu to Dr. Mcelroy on 08/15/2021 at 00:07. Result Date: 08/15/2021 Soft tissue air identified within upper portion of the coracobrachialis muscle which shows surrounding inflammatory change. This raises concern for necrotizing fasciitis although no other soft tissuegas is evident. This could potentially represent intravenous air related to the contrast injection.Inflammatory change/edema otherwise involves deeper subcutaneous fatty tissues anterior, superior and posterior to the shoulder and more superficially down the lateral aspect of the upper arm. CT TIBIA FIBULA LEFT W CONTRAST Result Date: 08/14/2021 No evidence of necrotizing fasciitis throughout the visualized left lower extremity. Healing fracture evident at the body of the left pubis and mid right inferior pubic ramus. Questionable very subtle nondisplaced fracture at the anterior aspect of the left acetabulum. This may represent artifact. CT FEMUR LEFT W CONTRAST Result Date: 08/14/2021 No evidence of necrotizing fasciitis throughout the visualized left lower extremity. Healing fracture evident at the body of the left pubis and mid right inferior pubic ramus. Questionable very subtle nondisplaced fracture at the anterior aspect of the left acetabulum. This may represent artifact. CT SHOULDER RIGHT W CONTRAST Addendum Date: 08/15/2021 ADDENDUM: Critical results were called by Dr. Mik Cantu to Dr. Mcelroy on 08/15/2021 at 00:07. Result Date: 08/15/2021 Soft tissue air identified within upper portion of the coracobrachialis muscle which shows surrounding inflammatory change. This raises concern for necrotizing fasciitis although no other soft tissuegas is evident. This could potentially represent intravenous air related to the contrast injection.Inflammatory change/edema otherwise involves deeper subcutaneous fatty tissues anterior, superior and posterior to the shoulder and more superficially down the lateral aspect of the upper arm. CT RADIUS ULNA RIGHT W CONTRAST Result Date: 08/15/2021 Very limited exam. Subcutaneous edema about the forearm may reflect cellulitis. No defined fluid collection or soft tissue gas is identified. No acute osseous abnormality. Consolidation at the dependent posterior right lung base. XR PELVIS (MIN 3 VIEWS) Result Date: 08/14/2021 Nondisplaced fracture of the left superior and inferior pubic rami at the pubic symphysis with ongoing healing. Nondisplaced right superior and inferior pubic rami fractures with ongoing healing. Nondisplaced bilateral sacral ala fractures with ongoing healing. CT FEMUR RIGHT W CONTRAST Result Date: 08/15/2021 No evidence of necrotizing fasciitis of the right lower extremity. Mild superficial subcutaneous fatty edema lateral to the right hip and intermittently laterally and posteriorly in the lower leg. Healing fractures at the medial aspect of the left body of pubis and mid right inferior pubic ramus. CT TIBIA FIBULA RIGHT W CONTRAST Result Date: 08/15/2021 No evidence of necrotizing fasciitis of the right lower extremity. Mild superficial subcutaneous fatty edema lateral to the right hip and intermittently laterally and posteriorly in the lower leg. Healing fractures at the medial aspect of the left body of pubis and mid right inferior pubic ramus. CTA CHEST ABDOMEN PELVIS W CONTRAST Result Date: 08/14/2021 1. No evidence of aortic aneurysm, intimal dissection, or other acute aortic syndrome. No central pulmonary embolus. 2. No acute pulmonary process or acute process in the abdomen/pelvis. 3. Joint/bursal fluid and gas with surrounding soft tissue edema at the right shoulder, concerning for septic arthritis (assuming no recent intervention). Orthopedic consultation and arthrocentesis are recommended. 4. Focal inflammatory changes and soft tissue gas just above the pubic symphysis with a vertical nondisplaced fracture of the left pubic body, which appears subacute. Possibility of septic arthritis at the pubic symphysis is not excluded. 5. Subacute/chronic vertical insufficiency fractures of the bilateral sacral ala. 6. Nondisplaced fractures of the bilateral L5 and right L4 transverse processes, which are age indeterminate. 7. Age indeterminate mildly depressed superior endplate fracture at T4. 8. Right femoral venous catheter noted. IR LUMBAR PUNCTURE FOR DIAGNOSIS Result Date: 08/15/2021 Unsuccessful fluoroscopic-guided lumbar puncture in the sdio-mlma-dact decubitus position, as above. IR ARTHR/ASP/INJ MAJOR JT/BURSA W US Result Date: 08/15/2021 Successful ultrasound and fluoroscopic-guided right shoulder fluid collection aspiration, as above. CT ASP ABS HEMATOMA BULLA CYST Result Date: 08/17/2021 CT-guided pubic symphysis region aspiration performed successfully. Physical Examination: General appearance: alert, cooperative and no distress Mental Status: oriented to person, place and time and normal affect Lungs: clear to auscultation bilaterally, normal effort Heart: regular rate and rhythm, no murmur Abdomen: soft, nontender, obese, normal bowel sounds, no masses, hepatomegaly, splenomegaly Extremities: no edema, redness, tenderness in the calves Skin: no gross lesions, rashes, induration Assessment: Hospital Problems Last Modified POA * (Principal) MSSA bacteremia 08/18/2021 Yes Septicemia (HCC) 08/18/2021 Yes Pyogenic arthritis of right shoulder region (HCC) 08/15/2021 Yes Acute cystitis without hematuria 08/18/2021 Yes Volume overload 08/18/2021 No Constipation 08/18/2021 Yes Physical debility 08/18/2021 Yes Morbid obesity (HCC) 08/18/2021 Yes Plan: 1. MSSA bacteremia- 2/2 septic right shoulder and questionable right ankle hardware infection. ID following, on IV Nafcillin. Duration TBD. 2. Volume overload- 8 L positive since admission, still swollen, give another dose of Lasix 40mg podaily 3. Hypokalemia- replaced 4. RA- prednisone; think OK to dc will restart in OP if rheum would like -pt has not been taking any anti RA meds recently 5. Pubic symphysis fracture- pain control 6. Lumbar fracture- pain control 7. Constipation- Colace/ Miralax 8. Insomnia- Trazodone 50 mg qhs prn 9. Gi/ DVT proph 10. PT/OT 11. SW-SNF later today bed open PICC line left sided insertion today Will get nafcillin for 6 weeks thru that Long discussion with pt, delfin and rn case management, > 45 min spent coordinating care, CLAIRE signed Dilan Jerome MD 08/21/2021 10:57 AM * Claire Red RN - 08/21/2021 6:56 AM EDT RIGGER SUPERVISOR notified of hypokalemia, new order noted. * Claire Red RN - 08/20/2021 8:40 PM EDT RIGGER SUPERVISOR notified of loose stools d/t ABX, new PRN order noted for Imodium. RIGGER SUPERVISOR also notified of pt stating she is no longer on prednisone, order d/c'd. * Eulogio Manzo MD - 08/20/2021 1:15 PM EDT [facility] - Progress Note Today's Date and Time: 08/20/2021, 1:15 PM Impression : Septicemia 08/14/21 MSSA Rt shoulder septic arthritis with staph aureus RA on plaquenil Fall June 2021 Pubic symphysis fx-likely related to fall in June 2021 Lumbar fx-likely related to fall in June 2021 Elevated CRP Leukocytosis Fever Hx right ankle hardware placement 1999 & 2007 Recommendations: Vancomycin discontinued 08/17/21 Nafcillin 2 gm Q 4 hr initiated 08/17/21-will need 6 weeks of antibiotics Will modify to Cefazolin 2 gm IV q 8 hr to simplify treatment. MSSA growing in blood cultures and synovial joint fluid from right shoulder and pubic symphysis No obvious vegetation noted on echo Follow-up as outaptient Ok for PICC line Remove Femoral CVC Medical Decision Making/Summary/Discussion:08/20/2021 IR right shoulder aspiration 08/15/21 OR for right ankle hardware removal, right shoulder I&D on 08/16/21 IR pubic symphysis aspiration 08/17/21 Infection Control Recommendations [place] Precautions Antimicrobial Stewardship Recommendations Simplification of therapy Targeted therapy Coordination of Outpatient Care: Estimated Length of IV antimicrobials:TBD Patient will need Midline Catheter Insertion: TBD Patient will need PICC line Insertion:TBD Patient will need: Home IV , Infusion Center, SNF, LTAC: TBD Patient will need outpatient wound care:TBD Chief complaint/reason for consultation: Concern for septic arthritis History of Present Illness: Miriam German is a 66 y.o.-year-old female who was initially admitted on 08/14/2021. Patient seen at the request of Dr. Martell INITIAL HISTORY: This patient, with a history of RA on plaquenil and a pubic symphysis and lumbar fx s/p fall in June 2021, initially presented to [facility] ED on 08/14/21 with complaints of severe right shoulder pain, neck pain and pelvic/suprapubic pain. Abnormal lab findings included leukocytosis of 17.1, CRP of 249.9, ESR 66. The patient also had a mottled appearance to her skin and cold extremities. She also appeared very dehydrated and her neck was stiff. A CTA of the chest/abd/pelvis was completed to rule out aortic dissection. 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 CT of pubic symphysis showing healing fracture at about 3 weeks, which is likely related to her fall in June. Healing lumbar fx was also noted. Initially, there was concern for a left acetabulum fracture on the initial imaging, but it was likely an artifact per Radiology. She received a fluid bolus and was initiated on Zosyn and Vancomycin. The patient was transferred to [facility] for a higher level of care. Abnormal lab findings at [facility] included: Lactic: 2.8 Pro floyd: 3.47 Alk phos: 187 CRP: 258.6 WBC: 23.3 Abs neutr: 19.1 ESR: 84 Blood cultures from [place] on 08/14/21 came back positive for gram positive cocci clusters X 2. Additional imaging was ordered by Ortho and there was initial concern for necrotizing fasciitis in the right coracobrachialis, but further evaluation by the radiologist indicated no concern for NF. There are soft tissue changes present and edema over brachialis muscles concerning for soft tissue infection. Ortho attempted aspiration of fluid from her right shoulder but it was a dry tap. IR was consulted, and she underwent a right shoulder aspiration with 4 ml of cloudy barbara fluid aspirated.The fluid has Gram positive cocci in clusters. They attempted a LP, but it was unsuccessful as the patient was unable to tolerate the procedure because of positioning. According to the patient, she also has a PMH of orthopedic surgery on her right ankle with hardwareplacement in 1999. She said that her body rejected the hardware in 2007 and it had to be replaced. She feels that the screw in right ankle is coming out again. Imaging of her right ankle is pending. General Surgery think the mottling of her skin may be secondary livedo reticularis associated with rheumatoid arthritis. She stopped taking plaquenil about a week ago as she wasn't feeling well. Rheumatology has been consulted. Infectious Disease was consulted for antibiotic recommendations CURRENT EVALUATION 08/20/2021 Afebrile VS stable with HTN . She is alert and oriented and up to the chair. She says her pain is improving. She underwent right shoulder arthroscopy with I&D and right ankle I&D with hardware removalper Orthopedic Surgery on 08/17/21. A significant amount of purulent fluid was noted at the right shoulder joint. Right ankle did not appear infected per Ortho's note. IR with aspiration of fluid from pubic symphysis was completed 08/17/21. Rheumatology have initiated the patient on hydrocortisone 50 mg Q 12 hours as the patient is on chronic steroids at home. CRP decreased to 104.5 and leukocytosis has resolved MSSA is growing in synovial fluid aspirate from right shoulder, pubic symphysis as well as blood cultures-MSSA isolated on blood cultures Vancomycin changed to Nafcillin on 08/17/21 We will continue to follow Discharge planning to [place] [facility] Labs, X rays reviewed: 08/20/2021 BUN:11-->7 Cr:0.38-->0.34 WBC:9.5-->9.2 Hb:10.9-->10.8 Plat:177-->169 CRP: 249.9-->258.6-->457.9-->104.5-->151.9 Lactic: 2.7 ESR: 66-->84 Pro-floyd: 3.47 Cultures: Urine: 08/16/21: No growth Blood: 08/14/21: MSSA x 2 08/16/21: No growth thus far Pubic symphysis aspirate : 08/17/21: MSSA Right shoulder aspirate: 08/15/21: MSSA 08/16/21: MSSA MRSA Nares: 08/14/21: Not detected Discussed with patient, RN, family. I have personally reviewed the past medical history, past surgical history, medications, social history, and family history, and I have updated the database accordingly. 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 OR CT ASP ABS HEMATOMA BULLA CYST 08/17/2021 CT ASP ABS HEMATOMA BULLA CYST 08/17/2021 Jonathan Osorio MD [facility] CT SCAN SHOULDER ARTHROSCOPY Right 08/16/2021 SHOULDER ARTHROSCOPY WITH I&D performed by Gerardo Munroe MD at [facility] OR Medications: [START ON 08/21/2021] potassium chloride 40 mEq Oral QAM AC spironolactone 12.5 mg Oral Daily predniSONE 5 mg Oral BID polyethylene glycol 17 g Oral Daily furosemide 40 mg Oral Daily docusate sodium 100 mg Oral BID nafcillin 2,000 mg IntraVENous Q4H enoxaparin 40 mg SubCUTAneous Daily sodium chloride flush 5-40 mL IntraVENous 2 times per day Social History: Social History Socioeconomic History Marital status: Single Spouse name: Not on file Number of children: Not on file Years of education: Not on file Highest education level: Not on file Occupational History Not on file Tobacco Use Smoking status: Not on file Smokeless tobacco: Not on file Vaping Use Vaping Use: Never used Substance and Sexual Activity Alcohol use: Not on file Drug use: Not on file Sexual activity: Not on file Other Topics Concern Not on file Social History Narrative Not on file Social Determinants of Health Financial Resource Strain: Difficulty of Paying Living Expenses: Not on file Food Insecurity: Worried About Running Out of Food in the Last Year: Not on file Ran Out of Food in the Last Year: Not on file Transportation Needs: Lack of Transportation (Medical): Not on file Lack of Transportation (Non-Medical): Not on file Physical Activity: Days of Exercise per Week: Not on file Minutes of Exercise per Session: Not on file Stress: Feeling of Stress : Not on file Social Connections: Frequency of Communication with Friends and Family: Not on file Frequency of Social Gatherings with Friends and Family: Not on file Attends Christianity Services: Not on file Active Member of Clubs or Organizations: Not on file Attends Club or Organization Meetings: Not on file Marital Status: Not on file Intimate Partner Violence: Fear of Current or Ex-Partner: Not on file Emotionally Abused: Not on file Physically Abused: Not on file Sexually Abused: Not on file Housing Stability: Unable to Pay for Housing in the Last Year: Not on file Number of Places Lived in the Last Year: Not on file Unstable Housing in the Last Year: Not on file Family History: History reviewed. No pertinent family history. Allergies: Patient has no known allergies. Review of Systems: Constitutional: Generalized pain improved Head: No headaches Eyes: No double vision or blurry vision. No conjunctival inflammation. ENT: No sore throat or runny nose.. No hearing loss, tinnitus or vertigo. Cardiovascular: No chest pain or palpitations.No shortness of breath. MARSHALL Lung: No shortness of breath or cough. No sputum production Abdomen: No nausea, vomiting, diarrhea, or abdominal pain.. No cramps. Genitourinary: No increased urinary frequency, or dysuria. No hematuria. No suprapubic or CVA pain Musculoskeletal: generalized myalgias Hematologic: No bleeding or bruising. Generalized mottling present Neurologic: No headache, weakness, numbness, or tingling. Integument: Generalized mottling. Psychiatric: No depression. Endocrine: No polyuria, no polydipsia, no polyphagia. Physical Examination : Patient Vitals for the past 8 hrs: BP Temp Temp src Pulse Resp SpO2 08/20/21 1135 (!) 162/85 98.2 F (36.8 C) Oral 98 21 95 % 08/20/21 0732 (!) 148/67 98.1 F (36.7 C) Axillary 83 21 93 % 08/20/21 0600 83 18 General Appearance: Awake, alert, and in no apparent distress Head: Normocephalic, no trauma Eyes: Pupils equal, round, reactive to light and accommodation; extraocular movements intact; sclera anicteric; conjunctivae pink. No embolic phenomena. ENT: Oropharynx clear, without erythema, exudate, or thrush. No tenderness of sinuses. Mouth/throat: mucosa pink and moist. No lesions. Dentition in good repair. Neck:Supple, without lymphadenopathy. Thyroid normal, No bruits. Pulmonary/Chest: Clear to auscultation, without wheezes, rales, or rhonchi. No dullness to percussion. Cardiovascular: Regular rate and rhythm without murmurs, rubs, or gallops. Abdomen: Soft, tender. Bowel sounds normal. No organomegaly All four Extremities: No cyanosis, clubbing, edema, or effusions. Mottling to skin. Cool extremities. Surgical scarring to right ankle Neurologic: No gross sensory or motor deficits. Skin: cool and dry with good turgor.Mottling. No ulcerations. No open wounds. Medical Decision Making -Laboratory: I have independently reviewed/ordered the following labs: CBC with Differential: Recent Labs 08/19/21 0636 08/20/21 0918 WBC 9.5 9.2 HGB 10.9* 10.8* HCT 36.0* 33.6* PLT 177 169 LYMPHOPCT 8* 7* MONOPCT 3 4 BMP: Recent Labs 08/19/21 0636 08/20/21 0918 NA 142 138 K 3.0* 2.8* CL 106 103 CO2 24 24 BUN 11 7* CREATININE 0.38* 0.34* MG 1.7 2.0 Hepatic Function Panel: No results for input(s): PROT, LABALBU, BILIDIR, IBILI, BILITOT, ALKPHOS, ALT, AST in the last 72 hours. No results for input(s): RPR in the last 72 hours. No results for input(s): HIV in the last 72 hours. No results for input(s): BC in the last 72 hours. Lab Results Component Value Date RBC 3.61 08/20/2021 WBC 9.2 08/20/2021 TURBIDITY Clear 08/14/2021 Lab Results Component Value Date CREATININE 0.34 08/20/2021 GLUCOSE 87 08/20/2021 Medical Decision Making-Imaging: XR SHOULDER RIGHT (MIN 2 VIEWS) Result Date: 08/14/2021 EXAMINATION: THREE XRAY VIEWS OF THE RIGHT SHOULDER 08/14/2021 7:13 pm COMPARISON: None. HISTORY: ORDERING SYSTEM PROVIDED HISTORY: effusion TECHNOLOGIST PROVIDED HISTORY: AP, scapular Y, axillary. Thank you. effusion FINDINGS: Glenohumeral joint is normally aligned. No evidence of acute fracture ordislocation. No abnormal periarticular calcifications. AC joint and glenohumeral joint degenerativechanges Visualized lung is unremarkable. No acute abnormality. CT HUMERUS RIGHT W CONTRAST Addendum Date: 08/15/2021 ADDENDUM: Critical results were called by Dr. Mik Cantu to Dr. Mcelroy on 08/15/2021 at 00:07. Result Date: 08/15/2021 EXAMINATION: CT OF THE RIGHT HUMERUS WITH CONTRAST; CT OF THE RIGHT SHOULDER WITH CONTRAST 08/14/2021 9:02 pm TECHNIQUE: CT of the right humerus was performed with the administration of intravenous contrast. Multiplanar reformatted images are provided for review. Automated exposure control, iterative reconstruction, and/or weight based adjustment of the mA/kV was utilized to reduce the radiation dose to as low as reasonably achievable.; CT of the right shoulder was performed with the administration of intravenous contrast. Multiplanar reformatted images are provided for review. Automated exposure control, iterative reconstruction, and/or weight based adjustment of the mA/kV was utilized to reduce the radiation dose to as low as reasonably achievable. COMPARISON: None. HISTORY ORDERING SYSTEM PROVIDED HISTORY: concern for nec fasc TECHNOLOGIST PROVIDED HISTORY: concern for nec fasc FINDINGS: Bones: No evidence of acute fracture or dislocation. No aggressive appearing osseous abnormalityor periostitis. Bone density is normal. Soft Tissue: Mild subcutaneous fatty tissue edema surrounds the superior, anterior and posterior aspects of the shoulder and extends inferiorly down the lateral aspect of the arm. Additionally, there is mild edema within the axilla which may also involve the coracobrachialis muscle. Within the upper portion of the belly of the coracobrachialis muscle, soft tissue air is present. It is localized and no other soft tissue air is identified. There is prominence of the subacromial/subdeltoid bursa posterolaterally. There is enhancement of the capsule of the bursa. Joint: No significant degenerative changes. No osseous erosions. Soft tissue air identified within upper portion of the coracobrachialis muscle which shows surrounding inflammatory change. This raises concern for necrotizing fasciitis although no other soft tissuegas is evident. This could potentially represent intravenous air related to the contrast injection.Inflammatory change/edema otherwise involves deeper subcutaneous fatty tissues anterior, superior and posterior to the shoulder and more superficially down the lateral aspect of the upper arm. CT TIBIA FIBULA LEFT W CONTRAST Result Date: 08/14/2021 EXAMINATION: CT OF THE LEFT FEMUR WITH CONTRAST; CT OF THE LEFT TIBIA AND FIBULA WITH CONTRAST 08/14/2021 9:01 pm TECHNIQUE: CT of the left femur was performed with the administration of intravenous contrast. Multiplanar reformatted images are provided for review. Automated exposure control, iterative reconstruction, and/or weight based adjustment of the mA/kV was utilized to reduce the radiation dose to as low as reasonably achievable.; CT of the left tibia and fibula was performed with the administration of intravenous contrast. Multiplanar reformatted images are provided for review. Automated exposure control, iterative reconstruction, and/or weight based adjustment of the mA/kV was utiliz ed to reduce the radiation dose to as low as reasonably achievable. COMPARISON: None. HISTORY ORDERING SYSTEM PROVIDED HISTORY: concern for nec fasc TECHNOLOGIST PROVIDED HISTORY: concern for nec fasc FINDINGS: Bones: At the medial aspect of body of the left pubis, there is healing fracture with mild surrounding, predominantly anterior, soft tissue swelling. Question of nondisplaced very subtle fracture at the anterior aspect of the acetabulum which may represent artifact. On the right, sclerotic reaction is present at the mid inferior pubic ramus likely representing healing fracture. No displacement. Osseous structures of the femur, tibia/fibula and visualized foot are otherwise unremarkable. Soft Tissue: No evidence of necrotizing fasciitis. There is mild superficial subcutaneous edema at the posterior and lateral aspects of the lower leg extending into the plantar aspect of the hindfoot. Joint: Mild degenerative changes incidentally noted. No evidence of necrotizing fasciitis throughout the visualized left lower extremity. Healing fracture evident at the body of the left pubis and mid right inferior pubic ramus. Questionable very subtle nondisplaced fracture at the anterior aspect of the left acetabulum. This may represent artifact. CT FEMUR LEFT W CONTRAST Result Date: 08/14/2021 EXAMINATION: CT OF THE LEFT FEMUR WITH CONTRAST; CT OF THE LEFT TIBIA AND FIBULA WITH CONTRAST 08/14/2021 9:01 pm TECHNIQUE: CT of the left femur was performed with the administration of intravenous contrast. Multiplanar reformatted images are provided for review. Automated exposure control, iterative reconstruction, and/or weight based adjustment of the mA/kV was utilized to reduce the radiation dose to as low as reasonably achievable.; CT of the left tibia and fibula was performed with the administration of intravenous contrast. Multiplanar reformatted images are provided for review. Automated exposure control, iterative reconstruction, and/or weight based adjustment of the mA/kV was utiliz ed to reduce the radiation dose to as low as reasonably achievable. COMPARISON: None. HISTORY ORDERING SYSTEM PROVIDED HISTORY: concern for nec fasc TECHNOLOGIST PROVIDED HISTORY: concern for nec fasc FINDINGS: Bones: At the medial aspect of body of the left pubis, there is healing fracture with mild surrounding, predominantly anterior, soft tissue swelling. Question of nondisplaced very subtle fracture at the anterior aspect of the acetabulum which may represent artifact. On the right, sclerotic reaction is present at the mid inferior pubic ramus likely representing healing fracture. No displacement. Osseous structures of the femur, tibia/fibula and visualized foot are otherwise unremarkable. Soft Tissue: No evidence of necrotizing fasciitis. There is mild superficial subcutaneous edema at the posterior and lateral aspects of the lower leg extending into the plantar aspect of the hindfoot. Joint: Mild degenerative changes incidentally noted. No evidence of necrotizing fasciitis throughout the visualized left lower extremity. Healing fracture evident at the body of the left pubis and mid right inferior pubic ramus. Questionable very subtle nondisplaced fracture at the anterior aspect of the left acetabulum. This may represent artifact. CT SHOULDER RIGHT W CONTRAST Addendum Date: 08/15/2021 ADDENDUM: Critical results were called by Dr. Mik Cantu to Dr. Mcelroy on 08/15/2021 at 00:07. Result Date: 08/15/2021 EXAMINATION: CT OF THE RIGHT HUMERUS WITH CONTRAST; CT OF THE RIGHT SHOULDER WITH CONTRAST 08/14/2021 9:02 pm TECHNIQUE: CT of the right humerus was performed with the administration of intravenous contrast. Multiplanar reformatted images are provided for review. Automated exposure control, iterative reconstruction, and/or weight based adjustment of the mA/kV was utilized to reduce the radiation dose to as low as reasonably achievable.; CT of the right shoulder was performed with the administration of intravenous contrast. Multiplanar reformatted images are provided for review. Automated exposure control, iterative reconstruction, and/or weight based adjustment of the mA/kV was utilized to reduce the radiation dose to as low as reasonably achievable. COMPARISON: None. HISTORY ORDERING SYSTEM PROVIDED HISTORY: concern for nec fasc TECHNOLOGIST PROVIDED HISTORY: concern for nec fasc FINDINGS: Bones: No evidence of acute fracture or dislocation. No aggressive appearing osseous abnormalityor periostitis. Bone density is normal. Soft Tissue: Mild subcutaneous fatty tissue edema surrounds the superior, anterior and posterior aspects of the shoulder and extends inferiorly down the lateral aspect of the arm. Additionally, there is mild edema within the axilla which may also involve the coracobrachialis muscle. Within the upper portion of the belly of the coracobrachialis muscle, soft tissue air is present. It is localized and no other soft tissue air is identified. There is prominence of the subacromial/subdeltoid bursa posterolaterally. There is enhancement of the capsule of the bursa. Joint: No significant degenerative changes. No osseous erosions. Soft tissue air identified within upper portion of the coracobrachialis muscle which shows surrounding inflammatory change. This raises concern for necrotizing fasciitis although no other soft tissuegas is evident. This could potentially represent intravenous air related to the contrast injection.Inflammatory change/edema otherwise involves deeper subcutaneous fatty tissues anterior, superior and posterior to the shoulder and more superficially down the lateral aspect of the upper arm. XR PELVIS (MIN 3 VIEWS) Result Date: 08/14/2021 EXAMINATION: ONE XRAY VIEW OF THE PELVIS 08/14/2021 7:13 pm COMPARISON: CT performed concurrently. HISTORY: ORDERING SYSTEM PROVIDED HISTORY: previous fractures TECHNOLOGIST PROVIDED HISTORY: AP, inlet, outlet and Judet views (obturator and iliac oblique). Thank you previous fractures FINDINGS: Right femoral central venous catheter terminating in the expected location of the external iliac vein. Nondisplaced fractures of the left superior and inferior pubic rami at the pubic symphysis and right inferior and superior pubic rami with some healing callus formation. Nondisplaced bilateral sacral ala fractures. Contrast distends the urinary bladder and partially obscures oblique views.. Nondisplaced fracture of the left superior and inferior pubic rami at the pubic symphysis with ongoing healing. Nondisplaced right superior and inferior pubic rami fractures with ongoing healing. Nondisplaced bilateral sacral ala fractures with ongoing healing. CT FEMUR RIGHT W CONTRAST Result Date: 08/15/2021 EXAMINATION: CT OF THE RIGHT FEMUR WITH CONTRAST; CT OF THE RIGHT TIBIA AND FIBULA WITH CONTRAST 08/14/2021 9:01 pm TECHNIQUE: CT of the right femur was performed with the administration of intravenous contrast. Multiplanar reformatted images are provided for review. Automated exposure control, itera tive reconstruction, and/or weight based adjustment of the mA/kV was utilized to reduce the radiation dose to as low as reasonably achievable.; CT of the right tibia and fibula was performed with theadministration of intravenous contrast. Multiplanar reformatted images are provided for review. Automated exposure control, iterative reconstruction, and/or weight based adjustment of the mA/kV was utilized to reduce the radiation dose to as low as reasonably achievable. COMPARISON: None. HISTORY ORDERING SYSTEM PROVIDED HISTORY: concern for nec fasc TECHNOLOGIST PROVIDED HISTORY: concern for necfasc FINDINGS: Bones: Healing fractures at the medial body of the left pubis and mid inferior rightpubic ramus. Osseous structures of the entire right lower extremity are otherwise unremarkable. Soft Tissue: No evidence of necrotizing fasciitis. Minor superficial edema in the subcutaneous fatty tissues is present lateral to the right hip and intermittently in the lateral and posterior aspects ofthe lower leg. Soft tissues of the right lower extremity are otherwise unremarkable. Joint: Mild degenerative changes incidentally noted. No evidence of necrotizing fasciitis of the right lower extremity. Mild superficial subcutaneous fatty edema lateral to the right hip and intermittently laterally and posteriorly in the lower leg. Healing fractures at the medial aspect of the left body of pubis and mid right inferior pubic ramus. CT TIBIA FIBULA RIGHT W CONTRAST Result Date: 08/15/2021 EXAMINATION: CT OF THE RIGHT FEMUR WITH CONTRAST; CT OF THE RIGHT TIBIA AND FIBULA WITH CONTRAST 08/14/2021 9:01 pm TECHNIQUE: CT of the right femur was performed with the administration of intravenous contrast. Multiplanar reformatted images are provided for review. Automated exposure control, itera tive reconstruction, and/or weight based adjustment of the mA/kV was utilized to reduce the radiation dose to as low as reasonably achievable.; CT of the right tibia and fibula was performed with theadministration of intravenous contrast. Multiplanar reformatted images are provided for review. Automated exposure control, iterative reconstruction, and/or weight based adjustment of the mA/kV was utilized to reduce the radiation dose to as low as reasonably achievable. COMPARISON: None. HISTORY ORDERING SYSTEM PROVIDED HISTORY: concern for nec fasc TECHNOLOGIST PROVIDED HISTORY: concern for necfasc FINDINGS: Bones: Healing fractures at the medial body of the left pubis and mid inferior rightpubic ramus. Osseous structures of the entire right lower extremity are otherwise unremarkable. Soft Tissue: No evidence of necrotizing fasciitis. Minor superficial edema in the subcutaneous fatty tissues is present lateral to the right hip and intermittently in the lateral and posterior aspects ofthe lower leg. Soft tissues of the right lower extremity are otherwise unremarkable. Joint: Mild degenerative changes incidentally noted. No evidence of necrotizing fasciitis of the right lower extremity. Mild superficial subcutaneous fatty edema lateral to the right hip and intermittently laterally and posteriorly in the lower leg. Healing fractures at the medial aspect of the left body of pubis and mid right inferior pubic ramus. CTA CHEST ABDOMEN PELVIS W CONTRAST Result Date: 08/14/2021 EXAMINATION: CTA OF THE CHEST, ABDOMEN AND PELVIS WITH CONTRAST 08/14/2021 10:22 am: TECHNIQUE: CTA of the chest, abdomen and pelvis was performed after the administration of intravenous contrast. Multiplanar reformatted images are provided for review. MIP images are provided for review. Automated exposure control, iterative reconstruction, and/or weight based adjustment of the mA/kV was utilized to reduce the radiation dose to as low as reasonably achievable. 3D reconstructed images were performed on a separate workstation and provided for review. COMPARISON: None HISTORY: ORDERING SYSTEM PROVIDED HISTORY: r/o dissection TECHNOLOGIST PROVIDED HISTORY: R/o dissection Decision Support Exception - unselect if not a suspected or confirmed emergency medical condition->Emergency Medical Condition (MA) Abdominal pain. Right shoulder pain. History of rheumatoid arthritis. FINDINGS: CTA CHEST: Thoracic aorta: No evidence of thoracic aortic aneurysm or dissection. No acute abnormality of the aorta. Mediastinum: Heart is normal in size. Main pulmonary artery is normal in caliber. No evidence of central pulmonary embolus. No mediastinal or hilar lymphadenopathy. Lungs/Pleura: Lungs are without acute process. There is mild scattered interstitial thickening, likely chronic. No focal consolidation or pulmonary edema. No evidence of pleural effusion or pneumothorax. Soft Tissues/Bones: There is joint effusion and bursal fluid at the right shoulder. Multiple foci of gas are seen within the fluid, which extends into the right axillary region. There is stranding in the right axillary region. There is loss of the intramuscular fat planes about the right shoulder. The right shoulder is incompletely included in the field of view. No osseous destructive change in the imaged portions of the shoulder. There is a mildly depressed superior endplate fracture at T4, which is age indeterminate. CTA ABDOMEN: Abdominal aorta/Branches: Abdominal aorta is normal in caliber. There is mild scattered atherosclerosis. Origins of the celiac, superior mesenteric, renal, and inferior mesenteric arteries are patent and grossly normal in caliber. No evidence of intimal dissection. Organs: Caudate lobe hypertrophy is noted at the liver. Liver is otherwise unremarkable. Gallbladder is surgically absent. No intrahepatic or extrahepatic biliary dilatation. Spleen, pancreas, and adrenal glands are unremarkable. There is symmetric enhancement of the kidneys. No hydronephrosis or perinephric inflammation. There is a 1.7 cm simple cyst in the mid right kidney (no follow-up imaging recommended). GI/Bowel: There is no abnormal bowel distention or pericolonic inflammation. No free intraperitoneal air or fluid. Appendix is not seen. Peritoneum/Retroperitoneum: No retroperitoneal or mesenteric lymphadenopathy. Bones/Soft Tissues: No acute or suspicious osseous abnormality. CTA PELVIS: Aorta/Iliacs: Iliac arteries are patent and normal in caliber. There is a right femoral venous catheter in place. Other: Urinary bladder is within normal limits. Uterus and adnexal structures are grossly unremarkable. There is no pelvic lymphadenopathy. Bones/Soft Tissues: There is focal inflammatory change and soft tissue gas just above the pubic symphysis. There is a vertical nondisplaced fracture of the leftpubic body, which appears subacute. No joint effusion at the hips. There is vertical sclerosis in the bilateral sacral ala, compatible with subacute/chronic nondisplaced bilateral sacral insufficiency fractures. There is a nondisplaced right transverse process fracture at L5 and L4. There is a nondisplaced left transverse process fracture at L5. Lumbar vertebral body heights are preserved. 1. No evidence of aortic aneurysm, intimal dissection, or other acute aortic syndrome. No central pulmonary embolus. 2. No acute pulmonary process or acute process in the abdomen/pelvis. 3. Joint/bursal fluid and gas with surrounding soft tissue edema at the right shoulder, concerning for septic arthritis (assuming no recent intervention). Orthopedic consultation and arthrocentesis are recommended. 4. Focal inflammatory changes and soft tissue gas just above the pubic symphysis with a vertical nondisplaced fracture of the left pubic body, which appears subacute. Possibility of septic arthritis at the pubic symphysis is not excluded. 5. Subacute/chronic vertical insufficiency fractures of the bilateral sacral ala. 6. Nondisplaced fractures of the bilateral L5 and right L4 transverse processes, which are age indeterminate. 7. Age indeterminate mildly depressed superior endplate fracture at T4. 8. Right femoral venous catheter noted. Medical Decision Aljori-[id number]-[id number]: Result 2 of 2 This report contains more than one result. Contains abnormal data Culture, Blood 1 Order: [id number] Status: Final result Visible to patient: No (not released) Next appt: None Specimen Information: Blood 0 Result Notes Component 08/14/21 1205 Resulting Agency Specimen Description .BLOOD [facility] Special Requests RIGHT CVC 10ML [facility] Culture POSITIVE BLOOD CULTURE, RN NOTIFIED: [facility] Culture DIRECT GRAM STAIN FROM BOTTLE: GRAM POSITIVE COCCI IN CLUSTERS [facility] Culture STAPHYLOCOCCUS AUREUS This isolate is methicillin susceptible. Abnormal [facility] Culture (NOTE) Direct Gram Stain from bottle result called to and read back by JENNIFER RICHTER RN AT [facility] CARDIAC 3 0119 08/15/2021 [facility] [place] Susceptibility Staphylococcus aureus (3) Antibiotic Interpretation Microscan Method Status clindamycin Sensitive <=0.25 BACTERIAL SUSCEPTIBILITY PANEL FABIOLA Final erythromycin Sensitive <=0.25 BACTERIAL SUSCEPTIBILITY PANEL FABIOLA Final gentamicin Sensitive <=0.5 BACTERIAL SUSCEPTIBILITY PANEL FABIOLA Final Gentamicin is used only in combination with other active agents that test susceptible. levofloxacin Sensitive 0.25 BACTERIAL SUSCEPTIBILITY PANEL FABIOLA Final oxacillin Sensitive <=0.25 BACTERIAL SUSCEPTIBILITY PANEL FABIOLA Final This staph isolate may be susceptible to Penicillin. Please contact Microbiology for confirmatory testing of susceptibility if Pencillin is a therapeutic consideration. 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 Thank you for allowing us to participate in the care of this patient. Please call with questions. Tita Martinez, PHYSICAL DAMAGE APPRAISER - VOCATIONAL ADVISER ATTESTATION: I have discussed the case, including pertinent history and exam findings with the residents and students. I have seen and examined the patient and the lea elements of the encounter have been performed by me. I was present when the student obtained his information or examined the patient. I have reviewed the laboratory data, other diagnostic studies and discussed them with the residents. I have updated the medical record where necessary. I agree with the assessment, plan and orders as documented by the resident/ student. Eulogio Manzo MD. Pager: - Office: * Dilan Jerome MD - 08/20/2021 12:52 PM EDT Images from the original note were not included. [place] [facility] Office: [phone] Anthony Cano DO, Leighton Johnson DO, Tom Duran DO, William Cornell DO, Frances Brown MD, Loretta Strauss MD, Ivonne Escobar MD, Sherry Dover MD, Nina Jaimes MD, Gil Mack MD, Shahid Lara MD, Kira Reid DO, Tino Guajardo DO, Cecy Mercedes MD, Johann Jimenez DO, MD Rena, Therese Lynne MD, Luis Angel Kwon MD, Boni Cano DO, Preethi Collins MD, Jaime Orr MD, Dilan Jerome MD, Valerie Miller, VOCATIONAL ADVISER, Hina Granados, VOCATIONAL ADVISER, Juan Carlos Mosqueda,VOCATIONAL ADVISER, Amira Morgan, VOCATIONAL ADVISER, Barbara Feliciano, VOCATIONAL ADVISER, Rory Peralta, VOCATIONAL ADVISER, Barrington Rodriguez, PA-C, Ludy Good, DNP, Regina Delvalle, VOCATIONAL ADVISER, Liliya Gambino, VOCATIONAL ADVISER, Evie Tavares, VOCATIONAL ADVISER, Gabby Hanson, PARTITION NOTCHER, [place], DNP, Mildred Auguste, VOCATIONAL ADVISER, Lili Palmer, VOCATIONAL ADVISER, Ashia Fu, VOCATIONAL ADVISER [facility] IN-PATIENT SERVICE [facility] Progress Note 08/20/2021 12:52 PM Name: Miriam German Acct: [id number] Room: IP Day: 6 Admit Date: 08/14/2021 5:10 PM PCP: Bhumika Stacy DO Code Status: Full Code Subjective: C/C: Chief Complaint Patient presents with Shoulder Pain Septic arthritis to R shoulder, possible pelvic sepsis Fall Interval History Status: improved. Pt doing well pain is much improved may not need as much oxycodone will dc with 12 only And she can be sent later today to rehab facility in [place] Brief History: Per my partner: Miriam German is a 66 y.o. female initially presented to [facility] ED for evaluationof acute onset lower abdominal pain and right shoulder pain. She was ill-appearing and in acute distress on exam in the emergency department. She underwent CTA of the chest abdomen pelvis which revealed joint/bursal fluid and gas with surrounding soft tissue edema of the right shoulder concerning for septic arthritis. She also had focal inflammatory change and soft tissue gas just above the pubicsymphysis with a vertical nondisplaced fracture of the left pubic body which appears subacute. She has subacute/chronic vertical insufficiency fractures of the bilateral sacral jhoana and nondisplaced f ractures of the bilateral L5 and right L4 transverse processes. WBC was noted to be elevated in theED with a left shift. Alk phos was elevated as was her CRP. Orthopedic surgery evaluated the patient in [place]'s ER and recommended the patient be transferred to higher level of care. CVC was placed.She was started on broad-spectrum antibiotics for presumed sepsis. It should be noted that her skinwas mottled at time of arrival. She was admitted to the intensive care unit. Per critical care H&P, patient's son reported that he has mother was ambulatory with a walker and was the best she had looked in months. Blood cultures drawn from [place] ED returned positive. Orthopedic surgery and general surgery involved in patient's care. Repeat CT imaging was performed which reveals persistent gas in the right shoulder and brachialis muscle. IR aspirated her right shoulder successfully and performed a lumbar puncture which was unsuccessful.. Cultures have returned positive for MSSA. Rheumatology was consulted due to longstanding history of rheumatoid arthritis. She is on chronic steroids and is intolerant of DMARDs. She was given a stress dose of steroids. She underwent right shoulder arthroscopy with incision and drainage and incision and drainage with ankle hardware removal on the right on 08/16/2021. Her blood pressure has remained normal and she has been stable for transfer out of the intensive care unit. Vancomycin has been discontinued and she has been started on nafcillin 2 g every 4 hours. She was seen and examined this morning. She is complaining of worsening swelling in her right arm and in her right leg. She is 8 L positive since admission. Reports constipation. Reports that she is urinating well. Pain is not controlled well. Review of Systems: Constitutional: negative for chills, fevers, sweats Respiratory: negative for cough, dyspnea on exertion, shortness of breath, wheezing Cardiovascular: negative for chest pain, chest pressure/discomfort, lower extremity edema, palpitations Gastrointestinal: negative for abdominal pain, constipation, diarrhea, nausea, vomiting Neurological: negative for dizziness, headache Medications: Allergies: No Known Allergies Current Meds: Scheduled Meds: [START ON 08/21/2021] potassium chloride 40 mEq Oral QAM AC spironolactone 12.5 mg Oral Daily polyethylene glycol 17 g Oral Daily furosemide 40 mg Oral Daily docusate sodium 100 mg Oral BID nafcillin 2,000 mg IntraVENous Q4H predniSONE 5 mg Oral BID enoxaparin 40 mg SubCUTAneous Daily sodium chloride flush 5-40 mL IntraVENous 2 times per day Continuous Infusions: sodium chloride PRN Meds: metoprolol, methocarbamol, traZODone, oxyCODONE, magnesium hydroxide, sodium chloride flush, sodium chloride, acetaminophen OR acetaminophen Data: Past Medical History: has a past medical history of Rheumatoid arthritis (HCC) and Staphylococcal arthritis of right shoulder (HCC). Social History: Family History: History reviewed. No pertinent family history. Vitals: BP (!) 162/85 Pulse 98 Temp 98.2 F (36.8 C) (Oral) Resp 21 Ht 5' 4 (1.626 m) Wt 234 lb 12.6 oz (106.5 kg) SpO2 95% BMI 40.30 kg/m Temp (24hrs), Av F (36.7 C), Min:97.6 F (36.4 C), Max:98.6 F (37 C) No results for input(s): POCGLU in the last 72 hours. I/O (24Hr): Intake/Output Summary (Last 24 hours) at 08/20/2021 1252 Last data filed at 08/20/2021 0600 Gross per 24 hour Intake Output 1220 ml Net -1220 ml Labs: Hematology: Recent Labs 08/18/21 0644 08/19/21 0636 08/20/21 0918 WBC 9.4 9.5 9.2 RBC 3.35* 3.77* 3.61* HGB 9.9* 10.9* 10.8* HCT 31.1* 36.0* 33.6* MCV 92.8 95.5 93.1 MCH 29.6 28.9 29.9 MCHC 31.8 30.3 32.1 RDW 14.4 14.4 14.6* PLT 164 177 169 MPV 9.8 9.6 9.6 CRP 104.5* -- 151.9* Chemistry: Recent Labs 08/18/21 0644 08/19/21 0636 08/20/21 0918 NA 137 142 138 K 3.5* 3.0* 2.8* CL 107 106 103 CO2 21 24 24 GLUCOSE 139* 81 87 BUN 17 11 7* CREATININE 0.42* 0.38* 0.34* MG 2.0 1.7 2.0 ANIONGAP 9 12 11 LABGLOM >60 >60 >60 GFRAA >60 >60 >60 CALCIUM 9.4 8.7 8.8 No results for input(s): PROT, LABALBU, LABA1C, K8SZPIQ, H1MBHKJ, FT4, TSH, AST, ALT, LDH, GGT, ALKPHOS, LABGGT, BILITOT, BILIDIR, AMMONIA, AMYLASE, LIPASE, LACTATE, CHOL, HDL, LDLCHOLESTEROL, CHOLHDLRATIO, TRIG, VLDL, [id number], PHENYTOIN, PHENYF, URICACID, POCGLU in the last 72 hours. ABG:No results found for: POCPH, PHART, PH, POCPCO2, NTK5UDU, PCO2, POCPO2, PO2ART, PO2, POCHCO3, BBO6GGX, HCO3, NBEA, PBEA, BEART, BE, THGBART, THB, DOU9FIF, CJJD1WJO, P7PTOQDI, O2SAT, FIO2 Lab Results Component Value Date/Time SPECIAL L WRIST 1 ML 08/16/2021 04:01 PM Lab Results Component Value Date/Time CULTURE (A) 08/17/2021 11:17 AM STAPHYLOCOCCUS AUREUS LIGHT GROWTH This isolate is methicillin susceptible. CULTURE No anaerobic organisms isolated at 3 days. 08/17/2021 11:17 AM Radiology: XR SHOULDER RIGHT (MIN 2 VIEWS) Result Date: 08/14/2021 No acute abnormality. XR ANKLE RIGHT (MIN 3 VIEWS) Result Date: 08/16/2021 Degenerative changes seen at the ankle with postoperative change and interval removal of the ORIF hardware. XR ANKLE RIGHT (MIN 3 VIEWS) Result Date: 08/15/2021 No acute bony abnormality or radiographic evidence of hardware failure or surrounding lucency. Degenerative changes at the ankle. Bimalleolar soft tissue swelling. Plantar calcaneal spur. CT HEAD WO CONTRAST Result Date: 08/15/2021 No acute intracranial abnormality. If there remains concern for meningitis contrast-enhanced MRI suggested CT CERVICAL SPINE WO CONTRAST Result Date: 08/15/2021 No acute abnormality of the cervical spine. Degenerative disc disease of C4-C5, C5-C6 and C6-C7 disc, with osteoarthritis of the right facet joints. CT THORACIC SPINE WO CONTRAST Result Date: 08/15/2021 [id number] compression fracture of the T4 vertebral body, of undetermined age. Clinical correlation suggested. Hypoventilatory changes in the posterior aspects of the lungs. CT LUMBAR SPINE WO CONTRAST Result Date: 08/15/2021 Bilateral sacral wing insufficiency fractures. Degenerative changes as described above. CT HUMERUS RIGHT W CONTRAST Addendum Date: 08/15/2021 ADDENDUM: Critical results were called by Dr. Mik Cantu to Dr. Mcelroy on 08/15/2021 at 00:07. Result Date: 08/15/2021 Soft tissue air identified within upper portion of the coracobrachialis muscle which shows surrounding inflammatory change. This raises concern for necrotizing fasciitis although no other soft tissuegas is evident. This could potentially represent intravenous air related to the contrast injection.Inflammatory change/edema otherwise involves deeper subcutaneous fatty tissues anterior, superior and posterior to the shoulder and more superficially down the lateral aspect of the upper arm. CT TIBIA FIBULA LEFT W CONTRAST Result Date: 08/14/2021 No evidence of necrotizing fasciitis throughout the visualized left lower extremity. Healing fracture evident at the body of the left pubis and mid right inferior pubic ramus. Questionable very subtle nondisplaced fracture at the anterior aspect of the left acetabulum. This may represent artifact. CT FEMUR LEFT W CONTRAST Result Date: 08/14/2021 No evidence of necrotizing fasciitis throughout the visualized left lower extremity. Healing fracture evident at the body of the left pubis and mid right inferior pubic ramus. Questionable very subtle nondisplaced fracture at the anterior aspect of the left acetabulum. This may represent artifact. CT SHOULDER RIGHT W CONTRAST Addendum Date: 08/15/2021 ADDENDUM: Critical results were called by Dr. Mik Cantu to Dr. Mcelroy on 08/15/2021 at 00:07. Result Date: 08/15/2021 Soft tissue air identified within upper portion of the coracobrachialis muscle which shows surrounding inflammatory change. This raises concern for necrotizing fasciitis although no other soft tissuegas is evident. This could potentially represent intravenous air related to the contrast injection.Inflammatory change/edema otherwise involves deeper subcutaneous fatty tissues anterior, superior and posterior to the shoulder and more superficially down the lateral aspect of the upper arm. CT RADIUS ULNA RIGHT W CONTRAST Result Date: 08/15/2021 Very limited exam. Subcutaneous edema about the forearm may reflect cellulitis. No defined fluid collection or soft tissue gas is identified. No acute osseous abnormality. Consolidation at the dependent posterior right lung base. XR PELVIS (MIN 3 VIEWS) Result Date: 08/14/2021 Nondisplaced fracture of the left superior and inferior pubic rami at the pubic symphysis with ongoing healing. Nondisplaced right superior and inferior pubic rami fractures with ongoing healing. Nondisplaced bilateral sacral ala fractures with ongoing healing. CT FEMUR RIGHT W CONTRAST Result Date: 08/15/2021 No evidence of necrotizing fasciitis of the right lower extremity. Mild superficial subcutaneous fatty edema lateral to the right hip and intermittently laterally and posteriorly in the lower leg. Healing fractures at the medial aspect of the left body of pubis and mid right inferior pubic ramus. CT TIBIA FIBULA RIGHT W CONTRAST Result Date: 08/15/2021 No evidence of necrotizing fasciitis of the right lower extremity. Mild superficial subcutaneous fatty edema lateral to the right hip and intermittently laterally and posteriorly in the lower leg. Healing fractures at the medial aspect of the left body of pubis and mid right inferior pubic ramus. CTA CHEST ABDOMEN PELVIS W CONTRAST Result Date: 08/14/2021 1. No evidence of aortic aneurysm, intimal dissection, or other acute aortic syndrome. No central pulmonary embolus. 2. No acute pulmonary process or acute process in the abdomen/pelvis. 3. Joint/bursal fluid and gas with surrounding soft tissue edema at the right shoulder, concerning for septic arthritis (assuming no recent intervention). Orthopedic consultation and arthrocentesis are recommended. 4. Focal inflammatory changes and soft tissue gas just above the pubic symphysis with a vertical nondisplaced fracture of the left pubic body, which appears subacute. Possibility of septic arthritis at the pubic symphysis is not excluded. 5. Subacute/chronic vertical insufficiency fractures of the bilateral sacral ala. 6. Nondisplaced fractures of the bilateral L5 and right L4 transverse processes, which are age indeterminate. 7. Age indeterminate mildly depressed superior endplate fracture at T4. 8. Right femoral venous catheter noted. IR LUMBAR PUNCTURE FOR DIAGNOSIS Result Date: 08/15/2021 Unsuccessful fluoroscopic-guided lumbar puncture in the [id number] decubitus position, as above. IR ARTHR/ASP/INJ MAJOR JT/BURSA W US Result Date: 08/15/2021 Successful ultrasound and fluoroscopic-guided right shoulder fluid collection aspiration, as above. CT ASP ABS HEMATOMA BULLA CYST Result Date: 08/17/2021 CT-guided pubic symphysis region aspiration performed successfully. Physical Examination: General appearance: alert, cooperative and no distress Mental Status: oriented to person, place and time and normal affect Lungs: clear to auscultation bilaterally, normal effort Heart: regular rate and rhythm, no murmur Abdomen: soft, nontender, obese, normal bowel sounds, no masses, hepatomegaly, splenomegaly Extremities: no edema, redness, tenderness in the calves Skin: no gross lesions, rashes, induration Assessment: Hospital Problems Last Modified POA * (Principal) MSSA bacteremia 08/18/2021 Yes Septicemia (HCC) 08/18/2021 Yes Pyogenic arthritis of right shoulder region (HCC) 08/15/2021 Yes Acute cystitis without hematuria 08/18/2021 Yes Volume overload 08/18/2021 No Constipation 08/18/2021 Yes Physical debility 08/18/2021 Yes Morbid obesity (HCC) 08/18/2021 Yes Plan: 1. MSSA bacteremia- 2/2 septic right shoulder and questionable right ankle hardware infection. ID following, on IV Nafcillin. Duration TBD. 2. Volume overload- 8 L positive since admission, still swollen, give another dose of Lasix 40mg podaily 3. Hypokalemia- replaced 4. RA- prednisone; think OK to dc will restart in OP if rheum would like -pt has not been taking any anti RA meds recently 5. Pubic symphysis fracture- pain control 6. Lumbar fracture- pain control 7. Constipation- Colace/ Miralax 8. Insomnia- Trazodone 50 mg qhs prn 9. Gi/ DVT proph 10. PT/OT 11. SW-SNF later today bed open Long discussion with pt, sons and rn case management, > 45 min spent coordinating care, CLAIRE signed Dilan Jerome MD 08/20/2021 12:52 PM * Ryan Neal OT - 08/19/2021 2:04 PM EDT Occupational Therapy Facility/Department: [facility] 2 Occupational Therapy Initial Assessment Name: Miriam German : 1955 Date of Service: 08/19/2021 Chief Complaint Patient presents with Shoulder Pain Septic arthritis to R shoulder, possible pelvic sepsis Fall Discharge Recommendations: Patient would benefit from continued therapy after discharge Further therapy recommended at discharge.The patient should be able to tolerate at least 3 hours of therapy per day over 5 days or 15 hours over 7 days. This patient may benefit from a Physical Medicine and Rehab consult. OT Equipment Recommendations Equipment Needed: Yes Mobility Devices: ADL Assistive Devices ADL Assistive Devices: Long-handled Shoe Horn;Long-handled Sponge;Hot Mill Worker;Sock- Aid Hard Patient Diagnosis(es): The primary encounter diagnosis was Pyogenic arthritis of right shoulder region, due to unspecified organism (HCC). A diagnosis of Acute cystitis without hematuria was also pertinent to this visit. Past Medical History: has a past medical history of Rheumatoid arthritis (HCC) and Staphylococcal arthritis of right shoulder (HCC). Past Surgical History: has a past surgical history that includes CT ASP ABS HEMATOMA BULLA CYST (08/17/2021). Assessment Performance deficits / Impairments: Decreased functional mobility ;Decreased ADL status;Decreased ROM;Decreased strength;Decreased cognition;Decreased endurance;Decreased balance;Decreased high-levelIADLs Assessment: Pt agreeable to OT eval this date. Pt completed LB ADL simulation while dynamically sitting/reaching to foot level. Pt demonstrates significant difficulty throughout activity with HR and RR elevating with exertion. Pt demonstrates significant BUE ROM and strength deficits that impair pt's ability to complete functional tasks independently. Pt trialled functional transfers from recliner this date requiring 2 attempts with maximum momentum build up to achieve full stand with use of personal rollator. Pt demonstrates poor standing balance and tolerance with ability to stand ~3 secondprior to abruptly returning to seated position. Pt will require continued OT services to address deficits listed in order for pt to regain functional independence and promote quality of life. Prognosis: Good Decision Making: High Complexity REQUIRES OT FOLLOW-UP: Yes Activity Tolerance Activity Tolerance: Patient Tolerated treatment well;Patient limited by fatigue Activity Tolerance Comments: HR increased to ~130-135bpm with activity with RR elevating to mid ~30bpm and SpO2 at 91%. Pt ed on pursed lip breathing and relaxation tech with good return and demonstration Plan Plan Times per Week: 3-5 x/wk Current Treatment Recommendations: Strengthening,ROM,Balance training,Functional mobility training,Endurance training,Safety education & training,Pain management,Cognitive reorientation,Patient/Caregiver education & training,Equipment evaluation, education, & procurement,Positioning,Self-Care / ADL Restrictions Restrictions/Precautions Restrictions/Precautions: Weight Bearing,Fall Risk,Up as Tolerated Required Braces or Orthoses?: No Lower Extremity Weight Bearing Restrictions Right Lower Extremity Weight Bearing: Weight Bearing As Tolerated Upper Extremity Weight Bearing Restrictions Right Upper Extremity Weight Bearing: Weight Bearing As Tolerated Position Activity Restriction Other position/activity restrictions: s/p R shoulder arthroscopy and I&D, R ankle I&D with hardware removal 08/16/2021 Subjective General Patient assessed for rehabilitation services?: Yes Family / Caregiver Present: Yes (son and friend present throughout evaluation) General Comment Comments: RN ok'd pt for OT eval this date. Pt agreeable to session and pleasant, cooperative, and motivated to complete evaluation. Pt motivated to be discharged from hospital. Pt reports pain of 2/10 in cervical region Social/Functional History Social/Functional History Lives With: Alone Type of Home: House Home Layout: One level Home Access: Stairs to enter with rails Entrance Stairs - Number of Steps: 2 Entrance Stairs - Rails: Right Bathroom Shower/Tub: Walk-in shower Bathroom Toilet: Handicap height Bathroom Equipment: Shower chair,Grab bars in shower Home Equipment: Rollator,Lift chair,Walker, rolling,Wheelchair-manual (pt reports utilizing rollator for functional mobility; has bedside commode) Has the patient had two or more falls in the past year or any fall with injury in the past year?: Yes Receives Help From: Family,Neighbor ADL Assistance: Independent Homemaking Responsibilities: No Ambulation Assistance: Independent Transfer Assistance: Independent Active Reach Truck Operator: No Patient's Reach Truck Operator Info: neighbor, friend 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 Leisure & Hobbies: garden Additional Comments: pt reports supportive friends within area however 13/10 assistance is unavailable Objective Vision Exceptions: Wears glasses at all times Hearing: Within functional limits Safety Devices Type of Devices: Nurse notified;Left in chair;Gait belt;Call light within reach Restraints Restraints Initially in Place: No Bed Mobility Training Bed Mobility Training: No (pt began and concluded evaluation seated in recliner) Balance Sitting: With support (CGA static and Min A dyanamic for ADLs) Standing: With support (Max A to maintain upright posture/balance) Transfer Training Transfer Training: Yes Overall Level of Assistance: Maximum assistance;Adaptive equipment;Additional time (pt attempted functional sit <> stand transfers from recliner requiring 2 attempts prior to achieving full stand with erect posture. Pt requires Max A with maximum momentum build up d/t generalized weakness anddebility. Pt demonstrated ability to stand ~3 seconds with forward flexion prior to abruptly returning to seated position) Interventions: Safety awareness training;Tactile cues;Verbal cues Sit to Stand: Maximum assistance;Adaptive equipment;Additional time Stand to Sit: Maximum assistance;Adaptive equipment;Additional time Gait Overall Level of Assistance: (ITZEL d/t poor standing balance/tolerance) AROM: Generally decreased, functional PROM: Generally decreased, functional Strength: Generally decreased, functional (B shoulders 3-/5; B elbows, wrists, hands grossly 4-/5) Coordination: Within functional limits Tone: Normal Sensation: Intact (pt denies numbness/tingling at this time) ADL Feeding: Stand by assistance;Setup;Increased time to complete Grooming: Minimal assistance;Setup;Increased time to complete UE Bathing: Minimal assistance;Setup;Increased time to complete LE Bathing: Moderate assistance;Setup;Increased time to complete LE Bathing Skilled Clinical Factors: pt simulated LB bathing task with dynamic reaching toward BLE,demonstrating Mod A required for posterior BLE and B feet UE Dressing: Minimal assistance;Setup;Increased time to complete LE Dressing: Setup;Maximum assistance;Increased time to complete (pt attempted to doff B socks while seated unsupported in recliner; demonstrating ability to reach lower legs however unable to reach ankle/heel. Expected to require Max A to don/doff socks/shoes and to pull pants up in standing position) Toileting: Maximum assistance;Setup;Increased time to complete Activity Tolerance Activity Tolerance: Patient limited by endurance;Treatment limited secondary to medical complications Activity Tolerance Comments: HR into 140's with mobility--RN notified; pt unable to take any steps Cognition Overall Cognitive Status: Exceptions Following Commands: Follows multistep commands with increased time;Follows multistep commands with repitition Problem Solving: Assistance required to identify errors made;Assistance required to correct errors made Initiation: Requires cues for some Cognition Comment: pt alert, eager to get OOB; states she wants to go home today d/t being unable to sleep here Education Given To: Patient Education Provided Comments: Pt ed on OT role, OT POC, safety awareness, importance of evaluation for continued therapy, ADL adaptive tech, transfer training, pursed lip breathing tech, DME use, and importance of continued OT. Pt verbalized good understanding Education Method: Demonstration;Verbal Barriers to Learning: None Education Outcome: Verbalized understanding;Demonstrated understanding LUE PROM (degrees) LUE PROM: WFL LUE AROM (degrees) LUE AROM : Exceptions LUE General AROM: shoulder limited by stiffness and RA; all other joints WFL L Shoulder Flexion 0-180: 0-70 Left Hand AROM (degrees) Left Hand AROM: WFL RUE PROM (degrees) RUE PROM: Exceptions RUE General PROM: shoulder limited by pain and stiffness; all other joints WFL R Shoulder Flex 0-180: 0-130 RUE AROM (degrees) RUE AROM : Exceptions RUE General AROM: shoulder limited by stiffness/RA; all other joints WFL R Shoulder Flexion 0-180: 0-45 Right Hand AROM (degrees) Right Hand AROM: WFL Hand Dominance Hand Dominance: Right AM-PAC Score AM-PAC Inpatient Daily Activity Raw Score: 15 (08/19/211404) AM-PAC Inpatient ADL T-Scale Score : 34.69 (08/19/211404) ADL Inpatient CMS 0-100% Score: 56.46 (08/19/211404) ADL Inpatient [facility] G-Code Modifier : CK (08/19/211404) Goals Short Term Goals Time Frame for Short term goals: By discharge, pt will: Short Term Goal 1: Demo Mod A for functional transfers and functional mobility with use of LRD for engagement in ADLs/IADLs Short Term Goal 2: Demo CGA for UB ADLs and grooming tasks with setup and adaptive tech PRN Short Term Goal 3: Demo Min A for LB ADLs and toileting tasks with AE, setup, and adaptive tech PRN Short Term Goal 4: Demo 2+ min static/dynamic standing activity with Mod A for improved balance/tolerance for ADL/IADL completion Short Term Goal 5: Participate in 10 reps BUE AROM/AAROM to shoulders, elbows, wrists, and hands toWFL with prolonged stretch for improved functional use for ADL/IADL performance Short Term Goal 6: Verbalize/incorporate 2 edema clinical data management director to reduce edema in BUE and improvefunctional use of BUE Therapy Time Individual Concurrent Group Co-treatment Time In 1306 Time Out 1330 Minutes 24 Timed Code Treatment Minutes: 23 Minutes Ryan Neal OTR/L * Julianne Dickerson, PT - 08/19/2021 11:08 AM EDT Physical Therapy Facility/Department: [facility] 2 Physical Therapy Reassessment Name: Miriam German : 1955 Date of Service: 08/19/2021 History copied and pasted from H+P: Miriam German is a 66 y.o. female with PMHx significant for rheumatoid arthritis on plaquenil as well as percocet for chronic pain, hx of traumatic fall back in June resulting in nondisplaced fractures of b/l L5 and R L4 TPs who presented to the ER as a transfer from [place] for concerns of septic arthritis. Patient presented to [place] ER earlier today with concerns for acute lower abdominal pain as well as right shoulder pain. Abdominal pain was noted to be located in the lower abdomen and is very intense, sharp, made worse by moving, 10 out of 10, without any aggravating or relieving factors except may for pressing on it. She was noted to have mottled upper and lower extremities as well as abdomen and trunk. Workup at [place] was showed inflammatory changes in the right shoulder and around pubic symphysis that was concerning for septic arthritis. Ortho was consulted at [place] and the orthopedic surgeon did not feel patient was appropriate for bedside arthrocentesis and needed to have exam perfo rmed with xray guidance. Patient was transferred to [place] for Ortho eval here. Noted to have leukocytosis of 17.1. CRP elevated to 249.9. Sed rate 66. Blood cultures, lactate acid were drawn. Patient received one dose of Vancomycin and Zosyn at [place]. Received 30cc/kg bolus. Central line wasplaced for poor peripheral access. Urinalysis also positive for UTI. Patient's son is in the room and states they just saw her this past Thursday and she was ambulatorywith walker and was the best that she had looked in months. Per reports she was ambulatory when shefirst arrived at [place] earlier today. She is normally ambulatory at baseline and able to care for herself. Patient to be admitted to ICU for close monitoring given rapid worsening of clinical presentation. Pt underwent SHOULDER ARTHROSCOPY WITH I&D I&D WITH ANKLE HARDWARE REMOVAL RIGHT 08/16/21. Discharge Recommendations: Further therapy recommended at discharge. Pt required max A to go from supine to sit (which she won't have to do since she sleeps in her liftchair), max A +2 to stand from low chair (has lift chair to assist with transfers at home), but unable to take any steps to move from bed to chair once standing. She has 2 steps to get into the house, her son works; her HR went into upper 140's with exertion; I discussed SNF prior to DC home d/t krystina bility to take steps, increased HR when mobilizing--pt insists that she can go home with her family/friend/neighbor assistance. She states she can't go without sleep another night. If she refuses rehab, she'll need 24 hour care and home services--I strongly recommend rehab prior to returning home. PT Equipment Recommendations Equipment Needed: No Patient Diagnosis(es): The primary encounter diagnosis was Pyogenic arthritis of right shoulder region, due to unspecified organism (HCC). A diagnosis of Acute cystitis without hematuria was also pertinent to this visit. Past Medical History: has a past medical history of Rheumatoid arthritis (HCC) and Staphylococcal arthritis of right shoulder (HCC). Past Surgical History: has a past surgical history that includes CT ASP ABS HEMATOMA BULLA CYST (08/17/2021). Assessment Pt cooperative, willing to get OOB; unrealistic re: her deficits, insists that she go home in spiteof max A+2 for transfers and inability to take steps. R ankle movement is improved, her R shoulder is still very weak, but pain is improved. Body Structures, Functions, Activity Limitations Requiring Skilled Therapeutic Intervention: Decreased functional mobility ;Decreased ROM;Decreased body mechanics;Decreased strength;Decreased endurance;Increased pain;Decreased balance;Decreased posture Therapy Prognosis: Fair Decision Making: High Complexity Barriers to Learning: none Requires PT Follow-Up: Yes Activity Tolerance Activity Tolerance: Patient limited by endurance;Treatment limited secondary to medical complications Activity Tolerance Comments: HR into 140's with mobility--RN notified; pt unable to take any steps Plan Plan Plan: (5-6 visits weekly) Current Treatment Recommendations: Strengthening,ROM,Balance training,Functional mobility training,Transfer training,Gait training,Stair training,Cognitive reorientation,Pain management,Home exerciseprogram,Safety education & training,Therapeutic activities Safety Devices Type of Devices: Call light within reach,Chair alarm in place,Gait belt,Patient at risk for falls,Left in chair,Nurse notified (maxi scott lift left under pt for transfer back to bed) Restraints Restraints Initially in Place: No Restrictions Restrictions/Precautions Restrictions/Precautions: Weight Bearing,Fall Risk,General Precautions,Up as Tolerated,Cardiac Required Braces or Orthoses?: No Lower Extremity Weight Bearing Restrictions Right Lower Extremity Weight Bearing: Weight Bearing As Tolerated Upper Extremity Weight Bearing Restrictions Right Upper Extremity Weight Bearing: Weight Bearing As Tolerated Subjective General Patient assessed for rehabilitation services?: Yes Response To Previous Treatment: Patient with no complaints from previous session. Family / Caregiver Present: No Follows Commands: Within Functional Limits Subjective Subjective: 1/10 pain at rest; 3/10 after mobilizing Social/Functional History Social/Functional History Lives With: Alone Type of Home: House Home Layout: One level Home Access: Stairs to enter with rails Entrance Stairs - Number of Steps: 2 TEE, 1HR Home Equipment: Rollator,Lift chair (bedside commode) Has the patient had two or more falls in the past year or any fall with injury in the past year?: Yes Receives Help From: Family,Neighbor ADL Assistance: Needs assistance Ambulation Assistance: Independent Transfer Assistance: Independent Active Reach Truck Operator: Yes 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 HR down into low 120's after up to chair after ~5 minutes. Pt on room air. Observation/Palpation Posture: Fair PROM RLE (degrees) RLE PROM: WFL PROM LLE (degrees) LLE PROM: WFL PROM RUE (degrees) RUE PROM: WFL Right Hand AROM (degrees) Right Hand AROM: WFL Strength RLE Strength RLE: Exception--grossly 3/5 throughout Strength LLE Strength LLE: WFL Strength RUE Strength RUE: Exception--shoulder 1/5; elbow distal 3/5 Strength LUE Strength LUE: WFL Bed mobility Rolling to Right: Maximum assistance (HOB elevated) Supine to Sit: Maximum assistance (HOB elevated) Scooting: Maximal assistance (to scoot forward in chair--pulling herself forward using murtaza stedy) Bed Mobility Comments: pt alert, eager to get OOB; she sleeps in a lift chair and doesn't get into/out of bed since July 24, per pt Transfers Sit to Stand: Maximum Assistance (max A from elevated bed, rwalker; sit to airplane cabin attendant murtaza stedy withmod A+2) Stand to sit: Moderate Assistance;2 Person Assistance (from murtaza stedy) Bed to Chair: Dependent/Total (via murtaza stedy; pt unable to take steps when standing using only rwalker) Stand Pivot Transfers: Dependent/Total;2 Person Assistance (murtaza stedy) Comment: poor ability to stand using rwalker and using murtaza stedy; had to elevate bed for pt to stand, and still required max A+1-2; unable to take steps Ambulation More Ambulation?: No (pt able to stand with max A from elevated bed; max A+2 from chair in murtaza stedy) Stairs/Curb Stairs?: No Balance Posture: Fair Sitting - Static: Fair Sitting - Dynamic: Fair Standing - Static: Poor Standing - Dynamic: Poor Exercise Treatment: AAROM R shoulder flexion: B hands clasped, max A to support RUE, 5 reps A/AROM Exercises: ankle pumps B, LAQs BLEs, AROM B elbow flexion; active hand grasp/release x 10 reps AM-PAC Score AM-PAC Inpatient Mobility Raw Score : 7 (08/17/21 1354) AM-PAC Inpatient T-Scale Score : 26.42 (08/17/21 1354) Mobility Inpatient CMS 0-100% Score: 92.36 (08/17/21 1354) Mobility Inpatient CMS G-Code Modifier : CM (08/17/21 [facility]) Goals Biological Aide Goals Time Frame for half-way goals : 12 visits half-way goal 1: sit to stand from lift chair with SBA+1 senior architect goal 2: gait with rollator x 25' with SBA+1 senior architect goal 3: improve R shoulder strength to functional antigravity Patient Goals Patient goals : go home today/sleep! Education Patient Education Education Given To: Patient Education Provided: Role of Therapy;Plan of Care;Fall Prevention Strategies;Transfer Training Education Method: Verbal Barriers to Learning: None Education Outcome: Continued education needed Therapy Time Individual Concurrent Group Co-treatment Time In 903 Time Out 1030 Minutes 86 Timed Code Treatment Minutes: 56 Minutes Tuan Whitaker PT * Eulogio Manzo MD - 08/19/2021 10:39 AM EDT [facility] - Progress Note Today's Date and Time: 08/19/2021, 10:39 AM Impression : Septicemia 08/14/21 MSSA Rt shoulder septic arthritis with staph aureus RA on plaquenil Fall June 2021 Pubic symphysis fx-likely related to fall in June 2021 Lumbar fx-likely related to fall in June 2021 Elevated CRP Leukocytosis Fever Hx right ankle hardware placement 1999 & 2007 Recommendations: Vancomycin discontinued 08/17/21 Nafcillin 2 gm Q 4 hr initiated 08/17/21 MSSA growing in blood cultures and synovial joint fluid from right shoulder and pubic symphysis No obvious vegetation noted on echo Medical Decision Making/Summary/Discussion:08/19/2021 IR right shoulder aspiration 08/15/21 OR for right ankle hardware removal, right shoulder I&D on 08/16/21 IR pubic symphysis aspiration 08/17/21 Infection Control Recommendations [place] Precautions Antimicrobial Stewardship Recommendations Simplification of therapy Targeted therapy Coordination of Outpatient Care: Estimated Length of IV antimicrobials:TBD Patient will need Midline Catheter Insertion: TBD Patient will need PICC line Insertion:TBD Patient will need: Home IV , Infusion Center, SNF, LTAC: TBD Patient will need outpatient wound care:TBD Chief complaint/reason for consultation: Concern for septic arthritis History of Present Illness: Miriam German is a 66 y.o.-year-old female who was initially admitted on 08/14/2021. Patient seen at the request of Dr. Martell INITIAL HISTORY: This patient, with a history of RA on plaquenil and a pubic symphysis and lumbar fx s/p fall in June 2021, initially presented to [facility] ED on 08/14/21 with complaints of severe right shoulder pain, neck pain and pelvic/suprapubic pain. Abnormal lab findings included leukocytosis of 17.1, CRP of 249.9, ESR 66. The patient also had a mottled appearance to her skin and cold extremities. She also appeared very dehydrated and her neck was stiff. A CTA of the chest/abd/pelvis was completed to rule out aortic dissection. 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 CT of pubic symphysis showing healing fracture at about 3 weeks, which is likely related to her fall in June. Healing lumbar fx was also noted. Initially, there was concern for a left acetabulum fracture on the initial imaging, but it was likely an artifact per Radiology. She received a fluid bolus and was initiated on Zosyn and Vancomycin. The patient was transferred to [facility] for a higher level of care. Abnormal lab findings at [facility] included: Lactic: 2.8 Pro floyd: 3.47 Alk phos: 187 CRP: 258.6 WBC: 23.3 Abs neutr: 19.1 ESR: 84 Blood cultures from [place] on 08/14/21 came back positive for gram positive cocci clusters X 2. Additional imaging was ordered by Ortho and there was initial concern for necrotizing fasciitis in the right coracobrachialis, but further evaluation by the radiologist indicated no concern for NF. There are soft tissue changes present and edema over brachialis muscles concerning for soft tissue infection. Ortho attempted aspiration of fluid from her right shoulder but it was a dry tap. IR was consulted, and she underwent a right shoulder aspiration with 4 ml of cloudy barbara fluid aspirated.The fluid has Gram positive cocci in clusters. They attempted a LP, but it was unsuccessful as the patient was unable to tolerate the procedure because of positioning. According to the patient, she also has a PMH of orthopedic surgery on her right ankle with hardwareplacement in 1999. She said that her body rejected the hardware in 2007 and it had to be replaced. She feels that the screw in right ankle is coming out again. Imaging of her right ankle is pending. General Surgery think the mottling of her skin may be secondary livedo reticularis associated with rheumatoid arthritis. She stopped taking plaquenil about a week ago as she wasn't feeling well. Rheumatology has been consulted. Infectious Disease was consulted for antibiotic recommendations CURRENT EVALUATION 08/19/2021 Afebrile VS stable with HTN Tachycardia . She is alert and oriented but somewhat agitated today. She underwent right shoulder arthroscopy with I&D and right ankle I&D with hardware removalper Orthopedic Surgery on 08/17/21. A significant amount of purulent fluid was noted at the right shoulder joint. Right ankle did not appear infected per Ortho's note. IR with aspiration of fluid from pubic symphysis was completed 08/17/21. Rheumatology have initiated the patient on hydrocortisone 50 mg Q 12 hours as the patient is on chronic steroids at home. CRP decreased to 104.5 and leukocytosis has resolved MSSA is growing in synovial fluid aspirate from right shoulder, pubic symphysis as well as blood cultures-MSSA isolated on blood cultures Vancomycin changed to Nafcillin on 08/17/21 We will continue to follow Labs, X rays reviewed: 08/19/2021 BUN:11 Cr:0.38 WBC:9.5 Hb:10.9 Plat:177 CRP: 249.9-->258.6-->457.9-->104.5 Lactic: 2.7 ESR: 66-->84 Pro-floyd: 3.47 Cultures: Urine: 08/16/21: No growth Blood: 08/14/21: MSSA x 2 08/16/21: No growth thus far Pubic symphysis aspirate : 08/17/21: Staph aureus Right shoulder aspirate: 08/15/21: MSSA 08/16/21: Staph aureus MRSA Nares: 08/14/21: Not detected Discussed with patient, RN, family. I have personally reviewed the past medical history, past surgical history, medications, social history, and family history, and I have updated the database accordingly. Past Medical History: Past Medical History: Diagnosis Date Rheumatoid arthritis (HCC) Staphylococcal arthritis of right shoulder (HCC) 08/16/2021 Past Surgical History: Past Surgical History: Procedure Laterality Date CT ASP ABS HEMATOMA BULLA CYST 08/17/2021 CT ASP ABS HEMATOMA BULLA CYST 08/17/2021 Jonathan Osorio MD [facility] CT SCAN Medications: magnesium sulfate 1,000 mg IntraVENous Once docusate sodium 100 mg Oral BID nafcillin 2,000 mg IntraVENous Q4H predniSONE 5 mg Oral BID enoxaparin 40 mg SubCUTAneous Daily sodium chloride flush 5-40 mL IntraVENous 2 times per day Social History: Social History Socioeconomic History Marital status: Single Spouse name: Not on file Number of children: Not on file Years of education: Not on file Highest education level: Not on file Occupational History Not on file Tobacco Use Smoking status: Not on file Smokeless tobacco: Not on file Vaping Use Vaping Use: Never used Substance and Sexual Activity Alcohol use: Not on file Drug use: Not on file Sexual activity: Not on file Other Topics Concern Not on file Social History Narrative Not on file Social Determinants of Health Financial Resource Strain: Difficulty of Paying Living Expenses: Not on file Food Insecurity: Worried About Running Out of Food in the Last Year: Not on file Ran Out of Food in the Last Year: Not on file Transportation Needs: Lack of Transportation (Medical): Not on file Lack of Transportation (Non-Medical): Not on file Physical Activity: Days of Exercise per Week: Not on file Minutes of Exercise per Session: Not on file Stress: Feeling of Stress : Not on file Social Connections: Frequency of Communication with Friends and Family: Not on file Frequency of Social Gatherings with Friends and Family: Not on file Attends Christianity Services: Not on file Active Member of Clubs or Organizations: Not on file Attends Club or Organization Meetings: Not on file Marital Status: Not on file Intimate Partner Violence: Fear of Current or Ex-Partner: Not on file Emotionally Abused: Not on file Physically Abused: Not on file Sexually Abused: Not on file Housing Stability: Unable to Pay for Housing in the Last Year: Not on file Number of Places Lived in the Last Year: Not on file Unstable Housing in the Last Year: Not on file Family History: History reviewed. No pertinent family history. Allergies: Patient has no known allergies. Review of Systems: Constitutional: Generalized pain improved Head: No headaches Eyes: No double vision or blurry vision. No conjunctival inflammation. ENT: No sore throat or runny nose.. No hearing loss, tinnitus or vertigo. Cardiovascular: No chest pain or palpitations.No shortness of breath. MARSHALL Lung: No shortness of breath or cough. No sputum production Abdomen: No nausea, vomiting, diarrhea, or abdominal pain.. No cramps. Genitourinary: No increased urinary frequency, or dysuria. No hematuria. No suprapubic or CVA pain Musculoskeletal: generalized myalgias Hematologic: No bleeding or bruising. Generalized mottling present Neurologic: No headache, weakness, numbness, or tingling. Integument: Generalized mottling. Psychiatric: No depression. Endocrine: No polyuria, no polydipsia, no polyphagia. Physical Examination : Patient Vitals for the past 8 hrs: BP Temp Temp src Pulse Resp SpO2 Weight 08/19/21 0730 (!) 140/61 98 F (36.7 C) Axillary (!) 104 16 99 % 08/19/21 0548 234 lb 12.6 oz (106.5 kg) 08/19/21 0410 (!) 156/80 98.9 F (37.2 C) Oral (!) 107 28 08/19/21 0307 19 General Appearance: Awake, alert, and in no apparent distress Head: Normocephalic, no trauma Eyes: Pupils equal, round, reactive to light and accommodation; extraocular movements intact; sclera anicteric; conjunctivae pink. No embolic phenomena. ENT: Oropharynx clear, without erythema, exudate, or thrush. No tenderness of sinuses. Mouth/throat: mucosa pink and moist. No lesions. Dentition in good repair. Neck:Supple, without lymphadenopathy. Thyroid normal, No bruits. Pulmonary/Chest: Clear to auscultation, without wheezes, rales, or rhonchi. No dullness to percussion. Cardiovascular: Regular rate and rhythm without murmurs, rubs, or gallops. Abdomen: Soft, tender. Bowel sounds normal. No organomegaly All four Extremities: No cyanosis, clubbing, edema, or effusions. Mottling to skin. Cool extremities. Surgical scarring to right ankle Neurologic: No gross sensory or motor deficits. Skin: cool and dry with good turgor.Mottling. No ulcerations. No open wounds. Medical Decision Making -Laboratory: I have independently reviewed/ordered the following labs: CBC with Differential: Recent Labs 08/18/21 0644 08/19/21 0636 WBC 9.4 9.5 HGB 9.9* 10.9* HCT 31.1* 36.0* PLT 164 177 LYMPHOPCT 7* 8* MONOPCT 2 3 BMP: Recent Labs 08/18/21 0644 08/19/21 0636 NA 137 142 K 3.5* 3.0* CL 107 106 CO2 21 24 BUN 17 11 CREATININE 0.42* 0.38* MG 2.0 1.7 Hepatic Function Panel: No results for input(s): PROT, LABALBU, BILIDIR, IBILI, BILITOT, ALKPHOS, ALT, AST in the last 72 hours. No results for input(s): RPR in the last 72 hours. No results for input(s): HIV in the last 72 hours. No results for input(s): BC in the last 72 hours. Lab Results Component Value Date RBC 3.77 08/19/2021 WBC 9.5 08/19/2021 TURBIDITY Clear 08/14/2021 Lab Results Component Value Date CREATININE 0.38 08/19/2021 GLUCOSE 81 08/19/2021 Medical Decision Making-Imaging: XR SHOULDER RIGHT (MIN 2 VIEWS) Result Date: 08/14/2021 EXAMINATION: THREE XRAY VIEWS OF THE RIGHT SHOULDER 08/14/2021 7:13 pm COMPARISON: None. HISTORY: ORDERING SYSTEM PROVIDED HISTORY: effusion TECHNOLOGIST PROVIDED HISTORY: AP, scapular Y, axillary. Thank you. effusion FINDINGS: Glenohumeral joint is normally aligned. No evidence of acute fracture ordislocation. No abnormal periarticular calcifications. AC joint and glenohumeral joint degenerativechanges Visualized lung is unremarkable. No acute abnormality. CT HUMERUS RIGHT W CONTRAST Addendum Date: 08/15/2021 ADDENDUM: Critical results were called by Dr. Mik Cantu to Dr. Mcelroy on 08/15/2021 at 00:07. Result Date: 08/15/2021 EXAMINATION: CT OF THE RIGHT HUMERUS WITH CONTRAST; CT OF THE RIGHT SHOULDER WITH CONTRAST 08/14/2021 9:02 pm TECHNIQUE: CT of the right humerus was performed with the administration of intravenous contrast. Multiplanar reformatted images are provided for review. Automated exposure control, iterative reconstruction, and/or weight based adjustment of the mA/kV was utilized to reduce the radiation dose to as low as reasonably achievable.; CT of the right shoulder was performed with the administration of intravenous contrast. Multiplanar reformatted images are provided for review. Automated exposure control, iterative reconstruction, and/or weight based adjustment of the mA/kV was utilized to reduce the radiation dose to as low as reasonably achievable. COMPARISON: None. HISTORY ORDERING SYSTEM PROVIDED HISTORY: concern for nec fasc TECHNOLOGIST PROVIDED HISTORY: concern for nec fasc FINDINGS: Bones: No evidence of acute fracture or dislocation. No aggressive appearing osseous abnormalityor periostitis. Bone density is normal. Soft Tissue: Mild subcutaneous fatty tissue edema surrounds the superior, anterior and posterior aspects of the shoulder and extends inferiorly down the lateral aspect of the arm. Additionally, there is mild edema within the axilla which may also involve the coracobrachialis muscle. Within the upper portion of the belly of the coracobrachialis muscle, soft tissue air is present. It is localized and no other soft tissue air is identified. There is prominence of the subacromial/subdeltoid bursa posterolaterally. There is enhancement of the capsule of the bursa. Joint: No significant degenerative changes. No osseous erosions. Soft tissue air identified within upper portion of the coracobrachialis muscle which shows surrounding inflammatory change. This raises concern for necrotizing fasciitis although no other soft tissuegas is evident. This could potentially represent intravenous air related to the contrast injection.Inflammatory change/edema otherwise involves deeper subcutaneous fatty tissues anterior, superior and posterior to the shoulder and more superficially down the lateral aspect of the upper arm. CT TIBIA FIBULA LEFT W CONTRAST Result Date: 08/14/2021 EXAMINATION: CT OF THE LEFT FEMUR WITH CONTRAST; CT OF THE LEFT TIBIA AND FIBULA WITH CONTRAST 08/14/2021 9:01 pm TECHNIQUE: CT of the left femur was performed with the administration of intravenous contrast. Multiplanar reformatted images are provided for review. Automated exposure control, iterative reconstruction, and/or weight based adjustment of the mA/kV was utilized to reduce the radiation dose to as low as reasonably achievable.; CT of the left tibia and fibula was performed with the administration of intravenous contrast. Multiplanar reformatted images are provided for review. Automated exposure control, iterative reconstruction, and/or weight based adjustment of the mA/kV was utiliz ed to reduce the radiation dose to as low as reasonably achievable. COMPARISON: None. HISTORY ORDERING SYSTEM PROVIDED HISTORY: concern for nec fasc TECHNOLOGIST PROVIDED HISTORY: concern for nec fasc FINDINGS: Bones: At the medial aspect of body of the left pubis, there is healing fracture with mild surrounding, predominantly anterior, soft tissue swelling. Question of nondisplaced very subtle fracture at the anterior aspect of the acetabulum which may represent artifact. On the right, sclerotic reaction is present at the mid inferior pubic ramus likely representing healing fracture. No displacement. Osseous structures of the femur, tibia/fibula and visualized foot are otherwise unremarkable. Soft Tissue: No evidence of necrotizing fasciitis. There is mild superficial subcutaneous edema at the posterior and lateral aspects of the lower leg extending into the plantar aspect of the hindfoot. Joint: Mild degenerative changes incidentally noted. No evidence of necrotizing fasciitis throughout the visualized left lower extremity. Healing fracture evident at the body of the left pubis and mid right inferior pubic ramus. Questionable very subtle nondisplaced fracture at the anterior aspect of the left acetabulum. This may represent artifact. CT FEMUR LEFT W CONTRAST Result Date: 08/14/2021 EXAMINATION: CT OF THE LEFT FEMUR WITH CONTRAST; CT OF THE LEFT TIBIA AND FIBULA WITH CONTRAST 08/14/2021 9:01 pm TECHNIQUE: CT of the left femur was performed with the administration of intravenous contrast. Multiplanar reformatted images are provided for review. Automated exposure control, iterative reconstruction, and/or weight based adjustment of the mA/kV was utilized to reduce the radiation dose to as low as reasonably achievable.; CT of the left tibia and fibula was performed with the administration of intravenous contrast. Multiplanar reformatted images are provided for review. Automated exposure control, iterative reconstruction, and/or weight based adjustment of the mA/kV was utiliz ed to reduce the radiation dose to as low as reasonably achievable. COMPARISON: None. HISTORY ORDERING SYSTEM PROVIDED HISTORY: concern for nec fasc TECHNOLOGIST PROVIDED HISTORY: concern for nec fasc FINDINGS: Bones: At the medial aspect of body of the left pubis, there is healing fracture with mild surrounding, predominantly anterior, soft tissue swelling. Question of nondisplaced very subtle fracture at the anterior aspect of the acetabulum which may represent artifact. On the right, sclerotic reaction is present at the mid inferior pubic ramus likely representing healing fracture. No displacement. Osseous structures of the femur, tibia/fibula and visualized foot are otherwise unremarkable. Soft Tissue: No evidence of necrotizing fasciitis. There is mild superficial subcutaneous edema at the posterior and lateral aspects of the lower leg extending into the plantar aspect of the hindfoot. Joint: Mild degenerative changes incidentally noted. No evidence of necrotizing fasciitis throughout the visualized left lower extremity. Healing fracture evident at the body of the left pubis and mid right inferior pubic ramus. Questionable very subtle nondisplaced fracture at the anterior aspect of the left acetabulum. This may represent artifact. CT SHOULDER RIGHT W CONTRAST Addendum Date: 08/15/2021 ADDENDUM: Critical results were called by Dr. Mik Cantu to Dr. Mcelroy on 08/15/2021 at 00:07. Result Date: 08/15/2021 EXAMINATION: CT OF THE RIGHT HUMERUS WITH CONTRAST; CT OF THE RIGHT SHOULDER WITH CONTRAST 08/14/2021 9:02 pm TECHNIQUE: CT of the right humerus was performed with the administration of intravenous contrast. Multiplanar reformatted images are provided for review. Automated exposure control, iterative reconstruction, and/or weight based adjustment of the mA/kV was utilized to reduce the radiation dose to as low as reasonably achievable.; CT of the right shoulder was performed with the administration of intravenous contrast. Multiplanar reformatted images are provided for review. Automated exposure control, iterative reconstruction, and/or weight based adjustment of the mA/kV was utilized to reduce the radiation dose to as low as reasonably achievable. COMPARISON: None. HISTORY ORDERING SYSTEM PROVIDED HISTORY: concern for nec fasc TECHNOLOGIST PROVIDED HISTORY: concern for nec fasc FINDINGS: Bones: No evidence of acute fracture or dislocation. No aggressive appearing osseous abnormalityor periostitis. Bone density is normal. Soft Tissue: Mild subcutaneous fatty tissue edema surrounds the superior, anterior and posterior aspects of the shoulder and extends inferiorly down the lateral aspect of the arm. Additionally, there is mild edema within the axilla which may also involve the coracobrachialis muscle. Within the upper portion of the belly of the coracobrachialis muscle, soft tissue air is present. It is localized and no other soft tissue air is identified. There is prominence of the subacromial/subdeltoid bursa posterolaterally. There is enhancement of the capsule of the bursa. Joint: No significant degenerative changes. No osseous erosions. Soft tissue air identified within upper portion of the coracobrachialis muscle which shows surrounding inflammatory change. This raises concern for necrotizing fasciitis although no other soft tissuegas is evident. This could potentially represent intravenous air related to the contrast injection.Inflammatory change/edema otherwise involves deeper subcutaneous fatty tissues anterior, superior and posterior to the shoulder and more superficially down the lateral aspect of the upper arm. XR PELVIS (MIN 3 VIEWS) Result Date: 08/14/2021 EXAMINATION: ONE XRAY VIEW OF THE PELVIS 08/14/2021 7:13 pm COMPARISON: CT performed concurrently. HISTORY: ORDERING SYSTEM PROVIDED HISTORY: previous fractures TECHNOLOGIST PROVIDED HISTORY: AP, inlet, outlet and Judet views (obturator and iliac oblique). Thank you previous fractures FINDINGS: Right femoral central venous catheter terminating in the expected location of the external iliac vein. Nondisplaced fractures of the left superior and inferior pubic rami at the pubic symphysis and right inferior and superior pubic rami with some healing callus formation. Nondisplaced bilateral sacral ala fractures. Contrast distends the urinary bladder and partially obscures oblique views.. Nondisplaced fracture of the left superior and inferior pubic rami at the pubic symphysis with ongoing healing. Nondisplaced right superior and inferior pubic rami fractures with ongoing healing. Nondisplaced bilateral sacral ala fractures with ongoing healing. CT FEMUR RIGHT W CONTRAST Result Date: 08/15/2021 EXAMINATION: CT OF THE RIGHT FEMUR WITH CONTRAST; CT OF THE RIGHT TIBIA AND FIBULA WITH CONTRAST 08/14/2021 9:01 pm TECHNIQUE: CT of the right femur was performed with the administration of intravenous contrast. Multiplanar reformatted images are provided for review. Automated exposure control, itera tive reconstruction, and/or weight based adjustment of the mA/kV was utilized to reduce the radiation dose to as low as reasonably achievable.; CT of the right tibia and fibula was performed with theadministration of intravenous contrast. Multiplanar reformatted images are provided for review. Automated exposure control, iterative reconstruction, and/or weight based adjustment of the mA/kV was utilized to reduce the radiation dose to as low as reasonably achievable. COMPARISON: None. HISTORY ORDERING SYSTEM PROVIDED HISTORY: concern for nec fasc TECHNOLOGIST PROVIDED HISTORY: concern for necfasc FINDINGS: Bones: Healing fractures at the medial body of the left pubis and mid inferior rightpubic ramus. Osseous structures of the entire right lower extremity are otherwise unremarkable. Soft Tissue: No evidence of necrotizing fasciitis. Minor superficial edema in the subcutaneous fatty tissues is present lateral to the right hip and intermittently in the lateral and posterior aspects ofthe lower leg. Soft tissues of the right lower extremity are otherwise unremarkable. Joint: Mild degenerative changes incidentally noted. No evidence of necrotizing fasciitis of the right lower extremity. Mild superficial subcutaneous fatty edema lateral to the right hip and intermittently laterally and posteriorly in the lower leg. Healing fractures at the medial aspect of the left body of pubis and mid right inferior pubic ramus. CT TIBIA FIBULA RIGHT W CONTRAST Result Date: 08/15/2021 EXAMINATION: CT OF THE RIGHT FEMUR WITH CONTRAST; CT OF THE RIGHT TIBIA AND FIBULA WITH CONTRAST 08/14/2021 9:01 pm TECHNIQUE: CT of the right femur was performed with the administration of intravenous contrast. Multiplanar reformatted images are provided for review. Automated exposure control, itera tive reconstruction, and/or weight based adjustment of the mA/kV was utilized to reduce the radiation dose to as low as reasonably achievable.; CT of the right tibia and fibula was performed with theadministration of intravenous contrast. Multiplanar reformatted images are provided for review. Automated exposure control, iterative reconstruction, and/or weight based adjustment of the mA/kV was utilized to reduce the radiation dose to as low as reasonably achievable. COMPARISON: None. HISTORY ORDERING SYSTEM PROVIDED HISTORY: concern for nec fasc TECHNOLOGIST PROVIDED HISTORY: concern for necfasc FINDINGS: Bones: Healing fractures at the medial body of the left pubis and mid inferior rightpubic ramus. Osseous structures of the entire right lower extremity are otherwise unremarkable. Soft Tissue: No evidence of necrotizing fasciitis. Minor superficial edema in the subcutaneous fatty tissues is present lateral to the right hip and intermittently in the lateral and posterior aspects ofthe lower leg. Soft tissues of the right lower extremity are otherwise unremarkable. Joint: Mild degenerative changes incidentally noted. No evidence of necrotizing fasciitis of the right lower extremity. Mild superficial subcutaneous fatty edema lateral to the right hip and intermittently laterally and posteriorly in the lower leg. Healing fractures at the medial aspect of the left body of pubis and mid right inferior pubic ramus. CTA CHEST ABDOMEN PELVIS W CONTRAST Result Date: 08/14/2021 EXAMINATION: CTA OF THE CHEST, ABDOMEN AND PELVIS WITH CONTRAST 08/14/2021 10:22 am: TECHNIQUE: CTA of the chest, abdomen and pelvis was performed after the administration of intravenous contrast. Multiplanar reformatted images are provided for review. MIP images are provided for review. Automated exposure control, iterative reconstruction, and/or weight based adjustment of the mA/kV was utilized to reduce the radiation dose to as low as reasonably achievable. 3D reconstructed images were performed on a separate workstation and provided for review. COMPARISON: None HISTORY: ORDERING SYSTEM PROVIDED HISTORY: r/o dissection TECHNOLOGIST PROVIDED HISTORY: R/o dissection Decision Support Exception - unselect if not a suspected or confirmed emergency medical condition->Emergency Medical Condition (MA) Abdominal pain. Right shoulder pain. History of rheumatoid arthritis. FINDINGS: CTA CHEST: Thoracic aorta: No evidence of thoracic aortic aneurysm or dissection. No acute abnormality of the aorta. Mediastinum: Heart is normal in size. Main pulmonary artery is normal in caliber. No evidence of central pulmonary embolus. No mediastinal or hilar lymphadenopathy. Lungs/Pleura: Lungs are without acute process. There is mild scattered interstitial thickening, likely chronic. No focal consolidation or pulmonary edema. No evidence of pleural effusion or pneumothorax. Soft Tissues/Bones: There is joint effusion and bursal fluid at the right shoulder. Multiple foci of gas are seen within the fluid, which extends into the right axillary region. There is stranding in the right axillary region. There is loss of the intramuscular fat planes about the right shoulder. The right shoulder is incompletely included in the field of view. No osseous destructive change in the imaged portions of the shoulder. There is a mildly depressed superior endplate fracture at T4, which is age indeterminate. CTA ABDOMEN: Abdominal aorta/Branches: Abdominal aorta is normal in caliber. There is mild scattered atherosclerosis. Origins of the celiac, superior mesenteric, renal, and inferior mesenteric arteries are patent and grossly normal in caliber. No evidence of intimal dissection. Organs: Caudate lobe hypertrophy is noted at the liver. Liver is otherwise unremarkable. Gallbladder is surgically absent. No intrahepatic or extrahepatic biliary dilatation. Spleen, pancreas, and adrenal glands are unremarkable. There is symmetric enhancement of the kidneys. No hydronephrosis or perinephric inflammation. There is a 1.7 cm simple cyst in the mid right kidney (no follow-up imaging recommended). GI/Bowel: There is no abnormal bowel distention or pericolonic inflammation. No free intraperitoneal air or fluid. Appendix is not seen. Peritoneum/Retroperitoneum: No retroperitoneal or mesenteric lymphadenopathy. Bones/Soft Tissues: No acute or suspicious osseous abnormality. CTA PELVIS: Aorta/Iliacs: Iliac arteries are patent and normal in caliber. There is a right femoral venous catheter in place. Other: Urinary bladder is within normal limits. Uterus and adnexal structures are grossly unremarkable. There is no pelvic lymphadenopathy. Bones/Soft Tissues: There is focal inflammatory change and soft tissue gas just above the pubic symphysis. There is a vertical nondisplaced fracture of the leftpubic body, which appears subacute. No joint effusion at the hips. There is vertical sclerosis in the bilateral sacral ala, compatible with subacute/chronic nondisplaced bilateral sacral insufficiency fractures. There is a nondisplaced right transverse process fracture at L5 and L4. There is a nondisplaced left transverse process fracture at L5. Lumbar vertebral body heights are preserved. 1. No evidence of aortic aneurysm, intimal dissection, or other acute aortic syndrome. No central pulmonary embolus. 2. No acute pulmonary process or acute process in the abdomen/pelvis. 3. Joint/bursal fluid and gas with surrounding soft tissue edema at the right shoulder, concerning for septic arthritis (assuming no recent intervention). Orthopedic consultation and arthrocentesis are recommended. 4. Focal inflammatory changes and soft tissue gas just above the pubic symphysis with a vertical nondisplaced fracture of the left pubic body, which appears subacute. Possibility of septic arthritis at the pubic symphysis is not excluded. 5. Subacute/chronic vertical insufficiency fractures of the bilateral sacral ala. 6. Nondisplaced fractures of the bilateral L5 and right L4 transverse processes, which are age indeterminate. 7. Age indeterminate mildly depressed superior endplate fracture at T4. 8. Right femoral venous catheter noted. Medical Decision [id number]: Result 2 of 2 This report contains more than one result. Contains abnormal data Culture, Blood 1 Order: [id number] Status: Final result Visible to patient: No (not released) Next appt: None Specimen Information: Blood 0 Result Notes Component 08/14/21 1205 Resulting Agency Specimen Description .BLOOD [facility] Special Requests RIGHT CVC 10ML [facility] Culture POSITIVE BLOOD CULTURE, RN NOTIFIED: [facility] [place] [facility] DIRECT GRAM STAIN FROM BOTTLE: GRAM POSITIVE COCCI IN CLUSTERS [facility] [place] [facility] STAPHYLOCOCCUS AUREUS This isolate is methicillin susceptible. Abnormal [facility] [place] Culture (NOTE) Direct Gram Stain from bottle result called to and read back by JENNIFER RICHTER RN AT [facility] 3 [id number] 08/15/2021 [facility] [place] Susceptibility Staphylococcus aureus (3) Antibiotic Interpretation Microscan Method Status clindamycin Sensitive <=0.25 BACTERIAL SUSCEPTIBILITY PANEL FABIOLA Final erythromycin Sensitive <=0.25 BACTERIAL SUSCEPTIBILITY PANEL FABIOLA Final gentamicin Sensitive <=0.5 BACTERIAL SUSCEPTIBILITY PANEL FABIOLA Final Gentamicin is used only in combination with other active agents that test susceptible. levofloxacin Sensitive 0.25 BACTERIAL SUSCEPTIBILITY PANEL FABIOLA Final oxacillin Sensitive <=0.25 BACTERIAL SUSCEPTIBILITY PANEL FABIOLA Final This staph isolate may be susceptible to Penicillin. Please contact Microbiology for confirmatory testing of susceptibility if Pencillin is a therapeutic consideration. 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 Thank you for allowing us to participate in the care of this patient. Please call with questions. Tita Martinez, PHYSICAL DAMAGE APPRAISER - VOCATIONAL ADVISER ATTESTATION: I have discussed the case, including pertinent history and exam findings with the PHYSICAL DAMAGE APPRAISER. I have evaluated the History, physical findings and pictures of the patient and the lea elements of the encounter have been performed by me. I have reviewed the laboratory data, other diagnostic studies and discussed them with the PHYSICAL DAMAGE APPRAISER. I have updated the medical record where necessary. I agree with the assessment, plan and orders as documented by the PHYSICAL DAMAGE APPRAISER. Eulogio Manzo MD. Pager: - Office: * Loretta Strauss MD - 08/19/2021 9:59 AM EDT Images from the original note were not included. [facility] Office: [phone] Anthony Cano DO, Leighton Johnson DO, Tom Duran DO, William Cornell DO, Frances Brown MD, Loretta Strauss MD, Ivonne Escobar MD, Sherry Dover MD, Nina Jaimes MD, Gil Mack MD, Shahid Lara MD, Kira Reid DO, Tino Guajardo DO, Cecy Mercedes MD, Johann Jimenez DO, MD Rena, Therese Lynne MD, Luis Angel Kwon MD, Boni Cano DO, Preethi Collins MD, Jaime Orr MD, Dilan Jerome MD, Valerie Miller CNP, Hina Granados CNP, Juan Carlos Mosqueda CNP, Amira Morgan CNP, Barbara Feliciano CNP, Rory Peralta, GINNY, TOSHIA FelicianoC, Ludy Good, DNP, Regina Delvalle, VOCATIONAL ADVISER, Liliya Gambino, VOCATIONAL ADVISER, Evie Tavares, VOCATIONAL ADVISER, Gabby Hanson, PARTITION NOTCHER, [place], MANOLO, Mildred Auguste, GINNY, Lili Palmer, GINNY, Ashia Fu, VOCATIONAL ADVISER [facility] IN-PATIENT SERVICE [facility] Progress Note 08/19/2021 9:59 AM Name: Miriam German Acct: [id number] Room: IP Day: 5 Admit Date: 08/14/2021 5:10 PM PCP: Bhumika Stacy DO Code Status: Full Code Subjective: C/C: Chief Complaint Patient presents with Shoulder Pain Septic arthritis to R shoulder, possible pelvic sepsis Fall Interval History Status: improved. Patient is upset that she cannot lay in the hospital bed and sleep here anymore. She insists on going home to sleep in her chair. However, she is too weak and needs to go to a SNF in [place]. She is also agreeable to this, after her 2 sons spoke to her. I offered a bariatric bed, she refused. She requests a sleep aid, and to sleep in the chair she is in. No fevers, chills. Brief History: Per my partner: Miriam German is a 66 y.o. female initially presented to [facility] ED for evaluationof acute onset lower abdominal pain and right shoulder pain. She was ill-appearing and in acute distress on exam in the emergency department. She underwent CTA of the chest abdomen pelvis which revealed joint/bursal fluid and gas with surrounding soft tissue edema of the right shoulder concerning for septic arthritis. She also had focal inflammatory change and soft tissue gas just above the pubicsymphysis with a vertical nondisplaced fracture of the left pubic body which appears subacute. She has subacute/chronic vertical insufficiency fractures of the bilateral sacral jhoana and nondisplaced f ractures of the bilateral L5 and right L4 transverse processes. WBC was noted to be elevated in theED with a left shift. Alk phos was elevated as was her CRP. Orthopedic surgery evaluated the patient in [place]'s ER and recommended the patient be transferred to higher level of care. CVC was placed.She was started on broad-spectrum antibiotics for presumed sepsis. It should be noted that her skinwas mottled at time of arrival. She was admitted to the intensive care unit. Per critical care H&P, patient's son reported that he has mother was ambulatory with a walker and was the best she had looked in months. Blood cultures drawn from [place] ED returned positive. Orthopedic surgery and general surgery involved in patient's care. Repeat CT imaging was performed which reveals persistent gas in the right shoulder and brachialis muscle. IR aspirated her right shoulder successfully and performed a lumbar puncture which was unsuccessful.. Cultures have returned positive for MSSA. Rheumatology was consulted due to longstanding history of rheumatoid arthritis. She is on chronic steroids and is intolerant of DMARDs. She was given a stress dose of steroids. She underwent right shoulder arthroscopy with incision and drainage and incision and drainage with ankle hardware removal on the right on 08/16/2021. Her blood pressure has remained normal and she has been stable for transfer out of the intensive care unit. Vancomycin has been discontinued and she has been started on nafcillin 2 g every 4 hours. She was seen and examined this morning. She is complaining of worsening swelling in her right arm and in her right leg. She is 8 L positive since admission. Reports constipation. Reports that she is urinating well. Pain is not controlled well. Review of Systems: Constitutional: negative for chills, fevers, sweats Respiratory: negative for cough, dyspnea on exertion, shortness of breath, wheezing Cardiovascular: negative for chest pain, chest pressure/discomfort, lower extremity edema, palpitations Gastrointestinal: negative for abdominal pain, constipation, diarrhea, nausea, vomiting Neurological: negative for dizziness, headache Medications: Allergies: No Known Allergies Current Meds: Scheduled Meds: potassium chloride 40 mEq Oral Once magnesium sulfate 1,000 mg IntraVENous Once docusate sodium 100 mg Oral BID nafcillin 2,000 mg IntraVENous Q4H predniSONE 5 mg Oral BID enoxaparin 40 mg SubCUTAneous Daily sodium chloride flush 5-40 mL IntraVENous 2 times per day Continuous Infusions: sodium chloride PRN Meds: methocarbamol, oxyCODONE, polyethylene glycol, magnesium hydroxide, sodium chloride flush, sodium chloride, acetaminophen OR acetaminophen Data: Past Medical History: has a past medical history of Rheumatoid arthritis (HCC) and Staphylococcal arthritis of right shoulder (HCC). Social History: Family History: History reviewed. No pertinent family history. Vitals: BP (!) 140/61 Pulse (!) 104 Temp 98 F (36.7 C) (Axillary) Resp 16 Ht 5' 4 (1.626 m) Wt 234 lb 12.6 oz (106.5 kg) SpO2 99% BMI 40.30 kg/m Temp (24hrs), Av.2 F (36.8 C), Min:97.3 F (36.3 C), Max:98.9 F (37.2 C) No results for input(s): POCGLU in the last 72 hours. I/O (24Hr): Intake/Output Summary (Last 24 hours) at 08/19/2021 0959 Last data filed at 08/19/2021 0600 Gross per 24 hour Intake 120 ml Output 2200 ml Net -2080 ml Labs: Hematology: Recent Labs 08/17/2141708/18/2144 08/19/21 0636 WBC 8.1 9.4 9.5 RBC 3.62* 3.35* 3.77* HGB 10.8* 9.9* 10.9* HCT 35.4* 31.1* 36.0* MCV 97.8 92.8 95.5 MCH 29.8 29.6 28.9 MCHC 30.5 31.8 30.3 RDW 14.6* 14.4 14.4 PLT 123* 164 177 MPV 9.9 9.8 9.6 CRP -- 104.5* -- Chemistry: Recent Labs 08/17/2141708/18/2144 08/19/21 0636 NA 142 137 142 K 3.9 3.5* 3.0* CL 114* 107 106 CO2 15* 21 24 GLUCOSE 89 139* 81 BUN 13 17 11 CREATININE 0.31* 0.42* 0.38* MG -- 2.0 1.7 ANIONGAP 13 9 12 LABGLOM >60 >60 >60 GFRAA >60 >60 >60 CALCIUM 9.2 9.4 8.7 No results for input(s): PROT, LABALBU, LABA1C, U1LSFNT, W5YIKKH, FT4, TSH, AST, ALT, LDH, GGT, ALKPHOS, LABGGT, BILITOT, BILIDIR, AMMONIA, AMYLASE, LIPASE, LACTATE, CHOL, HDL, LDLCHOLESTEROL, CHOLHDLRATIO, TRIG, VLDL, SGE28NN, PHENYTOIN, PHENYF, URICACID, POCGLU in the last 72 hours. ABG:No results found for: POCPH, PHART, PH, POCPCO2, HMN9CUB, PCO2, POCPO2, PO2ART, PO2, POCHCO3, [id number], HCO3, NBEA, PBEA, BEART, BE, THGBART, THB, BQK8SLU, ECZV3KVG, N7XYZRRU, O2SAT, FIO2 Lab Results Component Value Date/Time SPECIAL L WRIST 1 ML 08/16/2021 04:01 PM Lab Results Component Value Date/Time CULTURE STAPHYLOCOCCUS AUREUS LIGHT GROWTH (A) 08/17/2021 11:17 AM CULTURE No anaerobic organisms isolated at 2 days. 08/17/2021 11:17 AM Radiology: XR SHOULDER RIGHT (MIN 2 VIEWS) Result Date: 08/14/2021 No acute abnormality. XR ANKLE RIGHT (MIN 3 VIEWS) Result Date: 08/16/2021 Degenerative changes seen at the ankle with postoperative change and interval removal of the ORIF hardware. XR ANKLE RIGHT (MIN 3 VIEWS) Result Date: 08/15/2021 No acute bony abnormality or radiographic evidence of hardware failure or surrounding lucency. Degenerative changes at the ankle. Bimalleolar soft tissue swelling. Plantar calcaneal spur. CT HEAD WO CONTRAST Result Date: 08/15/2021 No acute intracranial abnormality. If there remains concern for meningitis contrast-enhanced MRI suggested CT CERVICAL SPINE WO CONTRAST Result Date: 08/15/2021 No acute abnormality of the cervical spine. Degenerative disc disease of C4-C5, C5-C6 and C6-C7 disc, with osteoarthritis of the right facet joints. CT THORACIC SPINE WO CONTRAST Result Date: 08/15/2021 [id number] compression fracture of the T4 vertebral body, of undetermined age. Clinical correlation suggested. Hypoventilatory changes in the posterior aspects of the lungs. CT LUMBAR SPINE WO CONTRAST Result Date: 08/15/2021 Bilateral sacral wing insufficiency fractures. Degenerative changes as described above. CT HUMERUS RIGHT W CONTRAST Addendum Date: 08/15/2021 ADDENDUM: Critical results were called by Dr. Mik Cantu to Dr. Mcelroy on 08/15/2021 at 00:07. Result Date: 08/15/2021 Soft tissue air identified within upper portion of the coracobrachialis muscle which shows surrounding inflammatory change. This raises concern for necrotizing fasciitis although no other soft tissuegas is evident. This could potentially represent intravenous air related to the contrast injection.Inflammatory change/edema otherwise involves deeper subcutaneous fatty tissues anterior, superior and posterior to the shoulder and more superficially down the lateral aspect of the upper arm. CT TIBIA FIBULA LEFT W CONTRAST Result Date: 08/14/2021 No evidence of necrotizing fasciitis throughout the visualized left lower extremity. Healing fracture evident at the body of the left pubis and mid right inferior pubic ramus. Questionable very subtle nondisplaced fracture at the anterior aspect of the left acetabulum. This may represent artifact. CT FEMUR LEFT W CONTRAST Result Date: 08/14/2021 No evidence of necrotizing fasciitis throughout the visualized left lower extremity. Healing fracture evident at the body of the left pubis and mid right inferior pubic ramus. Questionable very subtle nondisplaced fracture at the anterior aspect of the left acetabulum. This may represent artifact. CT SHOULDER RIGHT W CONTRAST Addendum Date: 08/15/2021 ADDENDUM: Critical results were called by Dr. Mik Cantu to Dr. Mcelroy on 08/15/2021 at 00:07. Result Date: 08/15/2021 Soft tissue air identified within upper portion of the coracobrachialis muscle which shows surrounding inflammatory change. This raises concern for necrotizing fasciitis although no other soft tissuegas is evident. This could potentially represent intravenous air related to the contrast injection.Inflammatory change/edema otherwise involves deeper subcutaneous fatty tissues anterior, superior and posterior to the shoulder and more superficially down the lateral aspect of the upper arm. CT RADIUS ULNA RIGHT W CONTRAST Result Date: 08/15/2021 Very limited exam. Subcutaneous edema about the forearm may reflect cellulitis. No defined fluid collection or soft tissue gas is identified. No acute osseous abnormality. Consolidation at the dependent posterior right lung base. XR PELVIS (MIN 3 VIEWS) Result Date: 08/14/2021 Nondisplaced fracture of the left superior and inferior pubic rami at the pubic symphysis with ongoing healing. Nondisplaced right superior and inferior pubic rami fractures with ongoing healing. Nondisplaced bilateral sacral ala fractures with ongoing healing. CT FEMUR RIGHT W CONTRAST Result Date: 08/15/2021 No evidence of necrotizing fasciitis of the right lower extremity. Mild superficial subcutaneous fatty edema lateral to the right hip and intermittently laterally and posteriorly in the lower leg. Healing fractures at the medial aspect of the left body of pubis and mid right inferior pubic ramus. CT TIBIA FIBULA RIGHT W CONTRAST Result Date: 08/15/2021 No evidence of necrotizing fasciitis of the right lower extremity. Mild superficial subcutaneous fatty edema lateral to the right hip and intermittently laterally and posteriorly in the lower leg. Healing fractures at the medial aspect of the left body of pubis and mid right inferior pubic ramus. CTA CHEST ABDOMEN PELVIS W CONTRAST Result Date: 08/14/2021 1. No evidence of aortic aneurysm, intimal dissection, or other acute aortic syndrome. No central pulmonary embolus. 2. No acute pulmonary process or acute process in the abdomen/pelvis. 3. Joint/bursal fluid and gas with surrounding soft tissue edema at the right shoulder, concerning for septic arthritis (assuming no recent intervention). Orthopedic consultation and arthrocentesis are recommended. 4. Focal inflammatory changes and soft tissue gas just above the pubic symphysis with a vertical nondisplaced fracture of the left pubic body, which appears subacute. Possibility of septic arthritis at the pubic symphysis is not excluded. 5. Subacute/chronic vertical insufficiency fractures of the bilateral sacral ala. 6. Nondisplaced fractures of the bilateral L5 and right L4 transverse processes, which are age indeterminate. 7. Age indeterminate mildly depressed superior endplate fracture at T4. 8. Right femoral venous catheter noted. IR LUMBAR PUNCTURE FOR DIAGNOSIS Result Date: 08/15/2021 Unsuccessful fluoroscopic-guided lumbar puncture in the [id number] decubitus position, as above. IR ARTHR/ASP/INJ MAJOR JT/BURSA W US Result Date: 08/15/2021 Successful ultrasound and fluoroscopic-guided right shoulder fluid collection aspiration, as above. CT ASP ABS HEMATOMA BULLA CYST Result Date: 08/17/2021 CT-guided pubic symphysis region aspiration performed successfully. Physical Examination: General appearance: alert, cooperative and no distress Mental Status: oriented to person, place and time and normal affect Lungs: clear to auscultation bilaterally, normal effort Heart: regular rate and rhythm, no murmur Abdomen: soft, nontender, obese, normal bowel sounds, no masses, hepatomegaly, splenomegaly Extremities: no edema, redness, tenderness in the calves Skin: no gross lesions, rashes, induration Assessment: Hospital Problems Last Modified POA * (Principal) MSSA bacteremia 08/18/2021 Yes Septicemia (HCC) 08/18/2021 Yes Pyogenic arthritis of right shoulder region (HCC) 08/15/2021 Yes Acute cystitis without hematuria 08/18/2021 Yes Volume overload 08/18/2021 No Constipation 08/18/2021 Yes Physical debility 08/18/2021 Yes Morbid obesity (HCC) 08/18/2021 Yes Plan: 1. MSSA bacteremia- 2/2 septic right shoulder and questionable right ankle hardware infection. ID following, on IV Nafcillin. Duration TBD. 2. Volume overload- 8 L positive since admission, still swollen, give another dose of Lasix 40mg podaily 3. Hypokalemia- replaced 4. RA- prednisone 5. Pubic symphysis fracture- pain control 6. Lumbar fracture- pain control 7. Constipation- Colace/ Miralax 8. Insomnia- Trazodone 50 mg qhs prn 9. Gi/ DVT proph 10. PT/OT 11. SW- dc planning to SNF, dw rn case management. Long discussion with pt, sons and rn case management, > 45 min spent coordinating care, CLAIRE signed Loretta Strauss MD 08/19/2021 9:59 AM * Italo Jordan DO - 08/19/2021 7:55 AM EDT Orthopedic Progress Note Patient: Miriam German Date of : 1955 66 y.o. female Subjective: Patient seen and examined No complaints or concerns No issue overnight Pain controlled Denies fever, WAGNER, CP, SOB Vitals reviewed, afebrile Objective: Vitals: 08/19/21 0730 BP: (!) 140/61 Pulse: (!) 104 Resp: 16 Temp: 98 F (36.7 C) SpO2: 99% Gen: NAD, cooperative Cardiovascular: tachycardic rate, no dependent edema Respiratory: No acute respiratory distress RUE: Dressing c/d/i. Diffuse edema to limb. Tolerates PROM of shoulder 0 - 80 degrees without pain in abd/ext. Limited AROM. Compartments soft. 2+ DP pulse. TA/EHL/FHL/GS motor intact. Deep and Superficial Peroneal/Saphenous/Sural SILT. RLE: Dressing c/d/i. Full AROM of ankle without pain. Compartments soft. 2+ DP pulse. TA/EHL/FHL/GSmotor intact. Deep and Superficial Peroneal/Saphenous/Sural SILT. Recent Labs 08/19/21 0636 WBC 9.5 HGB 10.9* HCT 36.0* PLT 177 NA 142 K 3.0* BUN 11 CREATININE 0.38* GLUCOSE 81 See rec for complete list Impression 66 y.o. female being seen for -Right shoulder septic arthritis s/p arthroscopic I&D, POD3 -Right ankle symptomatic hardware s/p hardware removal, POD3 -Pubic symphysis septic arthritis Plan -R shoulder cultures - staph spp. Pubic symphysis cultures - [facility]. -No surgical plans for pelvis at this time; plan to treat with antibiotics -CRP: 458 -->104 (08/08) Trend CRP q2d -Maintain dressings. OK to change prn. -Abx per ID recs -WB status: WBAT RUE/RLE -Okay for diet & DVT ppx from ortho perspective -Medical management per primary -No further plans for surgery per ortho; trend clinically -Page ortho with any questions/concerns Electronically signed by Italo Jordan DO 7:58 AM 08/19/2021 * Rony Smith MD - 08/19/2021 7:33 AM EDT Rheumatology Attending Progress Note SUBJECTIVE: F/U RA OBJECTIVE S/P hardware removal R ankle, shoulder I&D and symphysis pubis aspirate. Pain fairly well controlled. No new arthralgia. Medications Current Facility-Administered Medications: methocarbamol (ROBAXIN) tablet 750 mg, 750 mg, Oral, TIDPRN oxyCODONE (ROXICODONE) immediate release tablet 10 mg, 10 mg, Oral, Q3H PRN docusate sodium (COLACE) capsule 100 mg, 100 mg, Oral, BID polyethylene glycol (GLYCOLAX) packet 17 g, 17 g, Oral, Daily PRN magnesium hydroxide (MILK OF MAGNESIA) 400 MG/5ML suspension 15 mL, 15 mL, Oral, TID PRN nafcillin 2,000 mg in dextrose 5 % 100 mL IVPB (mini-bag), 2,000 mg, IntraVENous, Q4H predniSONE (DELTASONE) tablet 5 mg, 5 mg, Oral, BID enoxaparin (LOVENOX) injection 40 mg, 40 mg, SubCUTAneous, Daily sodium chloride flush 0.9 % injection 5-40 mL, 5-40 mL, IntraVENous, 2 times per day sodium chloride flush 0.9 % injection 5-40 mL, 5-40 mL, IntraVENous, PRN 0.9 % sodium chloride infusion, , IntraVENous, PRN acetaminophen (TYLENOL) tablet 650 mg, 650 mg, Oral, Q6H PRN OR acetaminophen (TYLENOL) suppository 650 mg, 650 mg, Rectal, Q6H PRN Physical VITALS: BP (!) 156/80 Pulse (!) 107 Temp 98.9 F (37.2 C) (Oral) Resp 28 Ht 5' 4 (1.626 m) Wt 234 lb 12.6 oz (106.5 kg) SpO2 100% BMI 40.30 kg/m Skin: No vasculitic lesions. Lymph nodes: no adenopathy HEENT: eyes clear. Nose without abnormalities. Mouth clear Neck: supple with good ROM. Thyroid not palpable Lungs: clear Heart: Normal S1 and S2. No murmurs, gallops or rubs Abdomen: soft and nontender. No hepatosplenomegaly No clubbing, cyanosis or edema Pulses: normal Neuro: Alert and oriented, Muscle strength normal. No focal neurologic signs. MS exam: No tophi or nodules. There is less rosa edema-no definite active synovitis,right shoulder bandaged, can move R ankle a little Data CBC with Differential: Lab Results Component Value Date WBC 9.5 08/19/2021 RBC 3.77 08/19/2021 HGB 10.9 08/19/2021 HCT 36.0 08/19/2021 PLT 177 08/19/2021 MCV 95.5 08/19/2021 MCH 28.9 08/19/2021 MCHC 30.3 08/19/2021 RDW 14.4 08/19/2021 LYMPHOPCT 8 08/19/2021 MONOPCT 3 08/19/2021 BASOPCT 0 08/19/2021 MONOSABS 0.25 08/19/2021 LYMPHSABS 0.75 08/19/2021 EOSABS <0.03 08/19/2021 BASOSABS 0.03 08/19/2021 CMP: Lab Results Component Value Date NA 137 08/18/2021 K 3.5 08/18/2021 CL 107 08/18/2021 CO2 21 08/18/2021 BUN 17 08/18/2021 CREATININE 0.42 08/18/2021 GFRAA >60 08/18/2021 LABGLOM >60 08/18/2021 GLUCOSE 139 08/18/2021 PROT 5.8 08/14/2021 LABALBU 2.6 08/14/2021 CALCIUM 9.4 08/18/2021 BILITOT 0.60 08/14/2021 ALKPHOS 165 08/14/2021 AST 40 08/14/2021 ALT 38 08/14/2021 ASSESSMENT AND PLAN Chronic RA-on chronic prednisone-poorly tolerant of previous DMARDs. Systemic MSSA infection. Will maintain on current oral prednisone and if d/c she will f/u with Dr. Newell in [place] as out-pt.. * Julianne Dickerson PT - 08/18/2021 11:28 AM EDT Images from the original note were not included. Physical Therapy Cancel Note DATE: 08/18/2021 NAME: Miriam German : 1955 Patient not seen this date for Physical Therapy due to: Other: pt states that her R ankle pain is significantly worse than it was this AM (this morning, the dr could touch it and I could tolerate it, now I can't); RN also has a call in re: UE edema. Will hold off mobilizing pt this date until pt's concerns addressed; will check 08/19 * Eulogio Manzo MD - 08/18/2021 8:21 AM EDT [facility] - Progress Note Today's Date and Time: 08/18/2021, 8:21 AM Impression : Septicemia 08/14/21 MSSA Rt shoulder septic arthritis with staph aureus RA on plaquenil Fall June 2021 Pubic symphysis fx-likely related to fall in June 2021 Lumbar fx-likely related to fall in June 2021 Elevated CRP Leukocytosis Fever Hx right ankle hardware placement 1999 & 2007 Recommendations: Vancomycin discontinued 08/17/21 Nafcillin 2 gm Q 4 hr initiated 08/17/21 MSSA growing in blood cultures and synovial joint fluid from right shoulder and pubic symphysis No obvious vegetation noted on echo Medical Decision Making/Summary/Discussion:08/18/2021 IR right shoulder aspiration 08/15/21 OR for right ankle hardware removal, right shoulder I&D on 08/16/21 IR pubic symphysis aspiration 08/17/21 Infection Control Recommendations [place] Precautions Antimicrobial Stewardship Recommendations Simplification of therapy Targeted therapy Coordination of Outpatient Care: Estimated Length of IV antimicrobials:TBD Patient will need Midline Catheter Insertion: TBD Patient will need PICC line Insertion:TBD Patient will need: Home IV , Infusion Center, SNF, LTAC: TBD Patient will need outpatient wound care:TBD Chief complaint/reason for consultation: Concern for septic arthritis History of Present Illness: Miriam German is a 66 y.o.-year-old female who was initially admitted on 08/14/2021. Patient seen at the request of Dr. Martell INITIAL HISTORY: This patient, with a history of RA on plaquenil and a pubic symphysis and lumbar fx s/p fall in June 2021, initially presented to [facility] ED on 08/14/21 with complaints of severe right shoulder pain, neck pain and pelvic/suprapubic pain. Abnormal lab findings included leukocytosis of 17.1, CRP of 249.9, ESR 66. The patient also had a mottled appearance to her skin and cold extremities. She also appeared very dehydrated and her neck was stiff. A CTA of the chest/abd/pelvis was completed to rule out aortic dissection. 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 CT of pubic symphysis showing healing fracture at about 3 weeks, which is likely related to her fall in June. Healing lumbar fx was also noted. Initially, there was concern for a left acetabulum fracture on the initial imaging, but it was likely an artifact per Radiology. She received a fluid bolus and was initiated on Zosyn and Vancomycin. The patient was transferred to [facility] for a higher level of care. Abnormal lab findings at [facility] included: Lactic: 2.8 Pro floyd: 3.47 Alk phos: 187 CRP: 258.6 WBC: 23.3 Abs neutr: 19.1 ESR: 84 Blood cultures from [facility] on 08/14/21 came back positive for gram positive cocci clusters X 2. Additional imaging was ordered by Ortho and there was initial concern for necrotizing fasciitis in the right coracobrachialis, but further evaluation by the radiologist indicated no concern for NF. There are soft tissue changes present and edema over brachialis muscles concerning for soft tissue infection. Ortho attempted aspiration of fluid from her right shoulder but it was a dry tap. IR was consulted, and she underwent a right shoulder aspiration with 4 ml of cloudy barbara fluid aspirated.The fluid has Gram positive cocci in clusters. They attempted a LP, but it was unsuccessful as the patient was unable to tolerate the procedure because of positioning. According to the patient, she also has a PMH of orthopedic surgery on her right ankle with hardwareplacement in 1999. She said that her body rejected the hardware in 2007 and it had to be replaced. She feels that the screw in right ankle is coming out again. Imaging of her right ankle is pending. General Surgery think the mottling of her skin may be secondary livedo reticularis associated with rheumatoid arthritis. She stopped taking plaquenil about a week ago as she wasn't feeling well. Rheumatology has been consulted. Infectious Disease was consulted for antibiotic recommendations CURRENT EVALUATION 08/18/2021 Afebrile VS stable with HTN The patient continues to feel better with less pain. She underwent right shoulder arthroscopy with I&D and right ankle I&D with hardware removalper Orthopedic Surgery on 08/17/21. A significant amount of purulent fluid was noted at the right shoulder joint. Right ankle did not appear infected per Ortho's note. IR with aspiration of fluid from pubic symphysis was completed 08/17/21. Rheumatology have initiated the patient on hydrocortisone 50 mg Q 12 hours as the patient is on chronic steroids at home. CRP decreased to 104.5 and leukocytosis has resolved Staph Aureus is growing in synovial fluid aspirate from right shoulder, pubic symphysis as well as blood cultures-MSSA isolated on blood cultures Vancomycin changed to Nafcillin on 08/17/21 We will continue to follow Labs, X rays reviewed: 08/18/2021 BUN:12-->12-->13-->17 Cr:0.60-->0.42-->0.31-->0.42 WBC:23.3-->16.9-->9.9-->8.1-->9.4 Hb:11.7-->9.9-->10.8-->9.9 Plat: 183-->130-->123-->164 CRP: 249.9-->258.6-->457.9-->104.5 Lactic: 2.7 ESR: 66-->84 Pro-floyd: 3.47 Cultures: Urine: 08/16/21: No growth Blood: 08/14/21: MSSA x 2 08/16/21: Pending Sputum : Right shoulder aspirate: 08/15/21: Staph aureus 08/16/21: Pending MRSA Nares: 08/14/21: Not detected Discussed with patient, RN, family. I have personally reviewed the past medical history, past surgical history, medications, social history, and family history, and I have updated the database accordingly. Past Medical History: No past medical history on file. Past Surgical History: Past Surgical History: Procedure Laterality Date CT ASP ABS HEMATOMA BULLA CYST 08/17/2021 CT ASP ABS HEMATOMA BULLA CYST 08/17/2021 Jonathan Osorio MD STZ CT SCAN Medications: docusate sodium 100 mg Oral Daily nafcillin 2,000 mg IntraVENous Q4H predniSONE 5 mg Oral BID enoxaparin 40 mg SubCUTAneous Daily sodium chloride flush 5-40 mL IntraVENous 2 times per day Social History: Social History Socioeconomic History Marital status: Single Spouse name: Not on file Number of children: Not on file Years of education: Not on file Highest education level: Not on file Occupational History Not on file Tobacco Use Smoking status: Not on file Smokeless tobacco: Not on file Vaping Use Vaping Use: Never used Substance and Sexual Activity Alcohol use: Not on file Drug use: Not on file Sexual activity: Not on file Other Topics Concern Not on file Social History Narrative Not on file Social Determinants of Health Financial Resource Strain: Difficulty of Paying Living Expenses: Not on file Food Insecurity: Worried About Running Out of Food in the Last Year: Not on file Ran Out of Food in the Last Year: Not on file Transportation Needs: Lack of Transportation (Medical): Not on file Lack of Transportation (Non-Medical): Not on file Physical Activity: Days of Exercise per Week: Not on file Minutes of Exercise per Session: Not on file Stress: Feeling of Stress : Not on file Social Connections: Frequency of Communication with Friends and Family: Not on file Frequency of Social Gatherings with Friends and Family: Not on file Attends Christianity Services: Not on file Active Member of Clubs or Organizations: Not on file Attends Club or Organization Meetings: Not on file Marital Status: Not on file Intimate Partner Violence: Fear of Current or Ex-Partner: Not on file Emotionally Abused: Not on file Physically Abused: Not on file Sexually Abused: Not on file Housing Stability: Unable to Pay for Housing in the Last Year: Not on file Number of Places Lived in the Last Year: Not on file Unstable Housing in the Last Year: Not on file Family History: No family history on file. Allergies: Patient has no known allergies. Review of Systems: Constitutional: Generalized pain improved Head: No headaches Eyes: No double vision or blurry vision. No conjunctival inflammation. ENT: No sore throat or runny nose.. No hearing loss, tinnitus or vertigo. Cardiovascular: No chest pain or palpitations.No shortness of breath. MARSHALL Lung: No shortness of breath or cough. No sputum production Abdomen: No nausea, vomiting, diarrhea, or abdominal pain.. No cramps. Genitourinary: No increased urinary frequency, or dysuria. No hematuria. No suprapubic or CVA pain Musculoskeletal: generalized myalgias Hematologic: No bleeding or bruising. Generalized mottling present Neurologic: No headache, weakness, numbness, or tingling. Integument: Generalized mottling. Psychiatric: No depression. Endocrine: No polyuria, no polydipsia, no polyphagia. Physical Examination : Patient Vitals for the past 8 hrs: BP Temp Temp src Pulse Resp SpO2 Weight 08/18/21 0600 235 lb 1.6 oz (106.6 kg) 08/18/21 0542 18 08/18/21 0512 17 08/18/21 0418 (!) 145/91 97.6 F (36.4 C) Oral 86 15 99 % General Appearance: Awake, alert, and in no apparent distress Head: Normocephalic, no trauma Eyes: Pupils equal, round, reactive to light and accommodation; extraocular movements intact; sclera anicteric; conjunctivae pink. No embolic phenomena. ENT: Oropharynx clear, without erythema, exudate, or thrush. No tenderness of sinuses. Mouth/throat: mucosa pink and moist. No lesions. Dentition in good repair. Neck:Supple, without lymphadenopathy. Thyroid normal, No bruits. Pulmonary/Chest: Clear to auscultation, without wheezes, rales, or rhonchi. No dullness to percussion. Cardiovascular: Regular rate and rhythm without murmurs, rubs, or gallops. Abdomen: Soft, tender. Bowel sounds normal. No organomegaly All four Extremities: No cyanosis, clubbing, edema, or effusions. Mottling to skin. Cool extremities. Surgical scarring to right ankle Neurologic: No gross sensory or motor deficits. Skin: cool and dry with good turgor.Mottling. No ulcerations. No open wounds. Medical Decision Making -Laboratory: I have independently reviewed/ordered the following labs: CBC with Differential: Recent Labs 08/17/21 0418 08/18/21 0644 WBC 8.1 9.4 HGB 10.8* 9.9* HCT 35.4* 31.1* PLT 123* 164 LYMPHOPCT 5* 7* MONOPCT 3 2 BMP: Recent Labs 08/16/21 0410 08/16/21 0410 08/17/21 0418 08/18/21 0644 NA 144 < > 142 137 K 3.3* < > 3.9 3.5* CL 112* < > 114* 107 CO2 22 < > 15* 21 BUN 12 < > 13 17 CREATININE 0.42* < > 0.31* 0.42* MG 2.0 -- -- 2.0 < > = values in this interval not displayed. Hepatic Function Panel: No results for input(s): PROT, LABALBU, BILIDIR, IBILI, BILITOT, ALKPHOS, ALT, AST in the last 72 hours. No results for input(s): RPR in the last 72 hours. No results for input(s): HIV in the last 72 hours. No results for input(s): BC in the last 72 hours. Lab Results Component Value Date RBC 3.35 08/18/2021 WBC 9.4 08/18/2021 TURBIDITY Clear 08/14/2021 Lab Results Component Value Date CREATININE 0.42 08/18/2021 GLUCOSE 139 08/18/2021 Medical Decision Making-Imaging: XR SHOULDER RIGHT (MIN 2 VIEWS) Result Date: 08/14/2021 EXAMINATION: THREE XRAY VIEWS OF THE RIGHT SHOULDER 08/14/2021 7:13 pm COMPARISON: None. HISTORY: ORDERING SYSTEM PROVIDED HISTORY: effusion TECHNOLOGIST PROVIDED HISTORY: AP, scapular Y, axillary. Thank you. effusion FINDINGS: Glenohumeral joint is normally aligned. No evidence of acute fracture ordislocation. No abnormal periarticular calcifications. AC joint and glenohumeral joint degenerativechanges Visualized lung is unremarkable. No acute abnormality. CT HUMERUS RIGHT W CONTRAST Addendum Date: 08/15/2021 ADDENDUM: Critical results were called by Dr. Mik Cantu to Dr. Mcelroy on 08/15/2021 at 00:07. Result Date: 08/15/2021 EXAMINATION: CT OF THE RIGHT HUMERUS WITH CONTRAST; CT OF THE RIGHT SHOULDER WITH CONTRAST 08/14/2021 9:02 pm TECHNIQUE: CT of the right humerus was performed with the administration of intravenous contrast. Multiplanar reformatted images are provided for review. Automated exposure control, iterative reconstruction, and/or weight based adjustment of the mA/kV was utilized to reduce the radiation dose to as low as reasonably achievable.; CT of the right shoulder was performed with the administration of intravenous contrast. Multiplanar reformatted images are provided for review. Automated exposure control, iterative reconstruction, and/or weight based adjustment of the mA/kV was utilized to reduce the radiation dose to as low as reasonably achievable. COMPARISON: None. HISTORY ORDERING SYSTEM PROVIDED HISTORY: concern for nec fasc TECHNOLOGIST PROVIDED HISTORY: concern for nec fasc FINDINGS: Bones: No evidence of acute fracture or dislocation. No aggressive appearing osseous abnormalityor periostitis. Bone density is normal. Soft Tissue: Mild subcutaneous fatty tissue edema surrounds the superior, anterior and posterior aspects of the shoulder and extends inferiorly down the lateral aspect of the arm. Additionally, there is mild edema within the axilla which may also involve the coracobrachialis muscle. Within the upper portion of the belly of the coracobrachialis muscle, soft tissue air is present. It is localized and no other soft tissue air is identified. There is prominence of the subacromial/subdeltoid bursa posterolaterally. There is enhancement of the capsule of the bursa. Joint: No significant degenerative changes. No osseous erosions. Soft tissue air identified within upper portion of the coracobrachialis muscle which shows surrounding inflammatory change. This raises concern for necrotizing fasciitis although no other soft tissuegas is evident. This could potentially represent intravenous air related to the contrast injection.Inflammatory change/edema otherwise involves deeper subcutaneous fatty tissues anterior, superior and posterior to the shoulder and more superficially down the lateral aspect of the upper arm. CT TIBIA FIBULA LEFT W CONTRAST Result Date: 08/14/2021 EXAMINATION: CT OF THE LEFT FEMUR WITH CONTRAST; CT OF THE LEFT TIBIA AND FIBULA WITH CONTRAST 08/14/2021 9:01 pm TECHNIQUE: CT of the left femur was performed with the administration of intravenous contrast. Multiplanar reformatted images are provided for review. Automated exposure control, iterative reconstruction, and/or weight based adjustment of the mA/kV was utilized to reduce the radiation dose to as low as reasonably achievable.; CT of the left tibia and fibula was performed with the administration of intravenous contrast. Multiplanar reformatted images are provided for review. Automated exposure control, iterative reconstruction, and/or weight based adjustment of the mA/kV was utiliz ed to reduce the radiation dose to as low as reasonably achievable. COMPARISON: None. HISTORY ORDERING SYSTEM PROVIDED HISTORY: concern for nec fasc TECHNOLOGIST PROVIDED HISTORY: concern for nec fasc FINDINGS: Bones: At the medial aspect of body of the left pubis, there is healing fracture with mild surrounding, predominantly anterior, soft tissue swelling. Question of nondisplaced very subtle fracture at the anterior aspect of the acetabulum which may represent artifact. On the right, sclerotic reaction is present at the mid inferior pubic ramus likely representing healing fracture. No displacement. Osseous structures of the femur, tibia/fibula and visualized foot are otherwise unremarkable. Soft Tissue: No evidence of necrotizing fasciitis. There is mild superficial subcutaneous edema at the posterior and lateral aspects of the lower leg extending into the plantar aspect of the hindfoot. Joint: Mild degenerative changes incidentally noted. No evidence of necrotizing fasciitis throughout the visualized left lower extremity. Healing fracture evident at the body of the left pubis and mid right inferior pubic ramus. Questionable very subtle nondisplaced fracture at the anterior aspect of the left acetabulum. This may represent artifact. CT FEMUR LEFT W CONTRAST Result Date: 08/14/2021 EXAMINATION: CT OF THE LEFT FEMUR WITH CONTRAST; CT OF THE LEFT TIBIA AND FIBULA WITH CONTRAST 08/14/2021 9:01 pm TECHNIQUE: CT of the left femur was performed with the administration of intravenous contrast. Multiplanar reformatted images are provided for review. Automated exposure control, iterative reconstruction, and/or weight based adjustment of the mA/kV was utilized to reduce the radiation dose to as low as reasonably achievable.; CT of the left tibia and fibula was performed with the administration of intravenous contrast. Multiplanar reformatted images are provided for review. Automated exposure control, iterative reconstruction, and/or weight based adjustment of the mA/kV was utiliz ed to reduce the radiation dose to as low as reasonably achievable. COMPARISON: None. HISTORY ORDERING SYSTEM PROVIDED HISTORY: concern for nec fasc TECHNOLOGIST PROVIDED HISTORY: concern for nec fasc FINDINGS: Bones: At the medial aspect of body of the left pubis, there is healing fracture with mild surrounding, predominantly anterior, soft tissue swelling. Question of nondisplaced very subtle fracture at the anterior aspect of the acetabulum which may represent artifact. On the right, sclerotic reaction is present at the mid inferior pubic ramus likely representing healing fracture. No displacement. Osseous structures of the femur, tibia/fibula and visualized foot are otherwise unremarkable. Soft Tissue: No evidence of necrotizing fasciitis. There is mild superficial subcutaneous edema at the posterior and lateral aspects of the lower leg extending into the plantar aspect of the hindfoot. Joint: Mild degenerative changes incidentally noted. No evidence of necrotizing fasciitis throughout the visualized left lower extremity. Healing fracture evident at the body of the left pubis and mid right inferior pubic ramus. Questionable very subtle nondisplaced fracture at the anterior aspect of the left acetabulum. This may represent artifact. CT SHOULDER RIGHT W CONTRAST Addendum Date: 08/15/2021 ADDENDUM: Critical results were called by Dr. Mik Cantu to Dr. Mcelroy on 08/15/2021 at 00:07. Result Date: 08/15/2021 EXAMINATION: CT OF THE RIGHT HUMERUS WITH CONTRAST; CT OF THE RIGHT SHOULDER WITH CONTRAST 08/14/2021 9:02 pm TECHNIQUE: CT of the right humerus was performed with the administration of intravenous contrast. Multiplanar reformatted images are provided for review. Automated exposure control, iterative reconstruction, and/or weight based adjustment of the mA/kV was utilized to reduce the radiation dose to as low as reasonably achievable.; CT of the right shoulder was performed with the administration of intravenous contrast. Multiplanar reformatted images are provided for review. Automated exposure control, iterative reconstruction, and/or weight based adjustment of the mA/kV was utilized to reduce the radiation dose to as low as reasonably achievable. COMPARISON: None. HISTORY ORDERING SYSTEM PROVIDED HISTORY: concern for nec fasc TECHNOLOGIST PROVIDED HISTORY: concern for nec fasc FINDINGS: Bones: No evidence of acute fracture or dislocation. No aggressive appearing osseous abnormalityor periostitis. Bone density is normal. Soft Tissue: Mild subcutaneous fatty tissue edema surrounds the superior, anterior and posterior aspects of the shoulder and extends inferiorly down the lateral aspect of the arm. Additionally, there is mild edema within the axilla which may also involve the coracobrachialis muscle. Within the upper portion of the belly of the coracobrachialis muscle, soft tissue air is present. It is localized and no other soft tissue air is identified. There is prominence of the subacromial/subdeltoid bursa posterolaterally. There is enhancement of the capsule of the bursa. Joint: No significant degenerative changes. No osseous erosions. Soft tissue air identified within upper portion of the coracobrachialis muscle which shows surrounding inflammatory change. This raises concern for necrotizing fasciitis although no other soft tissuegas is evident. This could potentially represent intravenous air related to the contrast injection.Inflammatory change/edema otherwise involves deeper subcutaneous fatty tissues anterior, superior and posterior to the shoulder and more superficially down the lateral aspect of the upper arm. XR PELVIS (MIN 3 VIEWS) Result Date: 08/14/2021 EXAMINATION: ONE XRAY VIEW OF THE PELVIS 08/14/2021 7:13 pm COMPARISON: CT performed concurrently. HISTORY: ORDERING SYSTEM PROVIDED HISTORY: previous fractures TECHNOLOGIST PROVIDED HISTORY: AP, inlet, outlet and Judet views (obturator and iliac oblique). Thank you previous fractures FINDINGS: Right femoral central venous catheter terminating in the expected location of the external iliac vein. Nondisplaced fractures of the left superior and inferior pubic rami at the pubic symphysis and right inferior and superior pubic rami with some healing callus formation. Nondisplaced bilateral sacral ala fractures. Contrast distends the urinary bladder and partially obscures oblique views.. Nondisplaced fracture of the left superior and inferior pubic rami at the pubic symphysis with ongoing healing. Nondisplaced right superior and inferior pubic rami fractures with ongoing healing. Nondisplaced bilateral sacral ala fractures with ongoing healing. CT FEMUR RIGHT W CONTRAST Result Date: 08/15/2021 EXAMINATION: CT OF THE RIGHT FEMUR WITH CONTRAST; CT OF THE RIGHT TIBIA AND FIBULA WITH CONTRAST 08/14/2021 9:01 pm TECHNIQUE: CT of the right femur was performed with the administration of intravenous contrast. Multiplanar reformatted images are provided for review. Automated exposure control, itera tive reconstruction, and/or weight based adjustment of the mA/kV was utilized to reduce the radiation dose to as low as reasonably achievable.; CT of the right tibia and fibula was performed with theadministration of intravenous contrast. Multiplanar reformatted images are provided for review. Automated exposure control, iterative reconstruction, and/or weight based adjustment of the mA/kV was utilized to reduce the radiation dose to as low as reasonably achievable. COMPARISON: None. HISTORY ORDERING SYSTEM PROVIDED HISTORY: concern for nec fasc TECHNOLOGIST PROVIDED HISTORY: concern for necfasc FINDINGS: Bones: Healing fractures at the medial body of the left pubis and mid inferior rightpubic ramus. Osseous structures of the entire right lower extremity are otherwise unremarkable. Soft Tissue: No evidence of necrotizing fasciitis. Minor superficial edema in the subcutaneous fatty tissues is present lateral to the right hip and intermittently in the lateral and posterior aspects ofthe lower leg. Soft tissues of the right lower extremity are otherwise unremarkable. Joint: Mild degenerative changes incidentally noted. No evidence of necrotizing fasciitis of the right lower extremity. Mild superficial subcutaneous fatty edema lateral to the right hip and intermittently laterally and posteriorly in the lower leg. Healing fractures at the medial aspect of the left body of pubis and mid right inferior pubic ramus. CT TIBIA FIBULA RIGHT W CONTRAST Result Date: 08/15/2021 EXAMINATION: CT OF THE RIGHT FEMUR WITH CONTRAST; CT OF THE RIGHT TIBIA AND FIBULA WITH CONTRAST 08/14/2021 9:01 pm TECHNIQUE: CT of the right femur was performed with the administration of intravenous contrast. Multiplanar reformatted images are provided for review. Automated exposure control, itera tive reconstruction, and/or weight based adjustment of the mA/kV was utilized to reduce the radiation dose to as low as reasonably achievable.; CT of the right tibia and fibula was performed with theadministration of intravenous contrast. Multiplanar reformatted images are provided for review. Automated exposure control, iterative reconstruction, and/or weight based adjustment of the mA/kV was utilized to reduce the radiation dose to as low as reasonably achievable. COMPARISON: None. HISTORY ORDERING SYSTEM PROVIDED HISTORY: concern for nec fasc TECHNOLOGIST PROVIDED HISTORY: concern for necfasc FINDINGS: Bones: Healing fractures at the medial body of the left pubis and mid inferior rightpubic ramus. Osseous structures of the entire right lower extremity are otherwise unremarkable. Soft Tissue: No evidence of necrotizing fasciitis. Minor superficial edema in the subcutaneous fatty tissues is present lateral to the right hip and intermittently in the lateral and posterior aspects ofthe lower leg. Soft tissues of the right lower extremity are otherwise unremarkable. Joint: Mild degenerative changes incidentally noted. No evidence of necrotizing fasciitis of the right lower extremity. Mild superficial subcutaneous fatty edema lateral to the right hip and intermittently laterally and posteriorly in the lower leg. Healing fractures at the medial aspect of the left body of pubis and mid right inferior pubic ramus. CTA CHEST ABDOMEN PELVIS W CONTRAST Result Date: 08/14/2021 EXAMINATION: CTA OF THE CHEST, ABDOMEN AND PELVIS WITH CONTRAST 08/14/2021 10:22 am: TECHNIQUE: CTA of the chest, abdomen and pelvis was performed after the administration of intravenous contrast. Multiplanar reformatted images are provided for review. MIP images are provided for review. Automated exposure control, iterative reconstruction, and/or weight based adjustment of the mA/kV was utilized to reduce the radiation dose to as low as reasonably achievable. 3D reconstructed images were performed on a separate workstation and provided for review. COMPARISON: None HISTORY: ORDERING SYSTEM PROVIDED HISTORY: r/o dissection TECHNOLOGIST PROVIDED HISTORY: R/o dissection Decision Support Exception - unselect if not a suspected or confirmed emergency medical condition->Emergency Medical Condition (MA) Abdominal pain. Right shoulder pain. History of rheumatoid arthritis. FINDINGS: CTA CHEST: Thoracic aorta: No evidence of thoracic aortic aneurysm or dissection. No acute abnormality of the aorta. Mediastinum: Heart is normal in size. Main pulmonary artery is normal in caliber. No evidence of central pulmonary embolus. No mediastinal or hilar lymphadenopathy. Lungs/Pleura: Lungs are without acute process. There is mild scattered interstitial thickening, likely chronic. No focal consolidation or pulmonary edema. No evidence of pleural effusion or pneumothorax. Soft Tissues/Bones: There is joint effusion and bursal fluid at the right shoulder. Multiple foci of gas are seen within the fluid, which extends into the right axillary region. There is stranding in the right axillary region. There is loss of the intramuscular fat planes about the right shoulder. The right shoulder is incompletely included in the field of view. No osseous destructive change in the imaged portions of the shoulder. There is a mildly depressed superior endplate fracture at T4, which is age indeterminate. CTA ABDOMEN: Abdominal aorta/Branches: Abdominal aorta is normal in caliber. There is mild scattered atherosclerosis. Origins of the celiac, superior mesenteric, renal, and inferior mesenteric arteries are patent and grossly normal in caliber. No evidence of intimal dissection. Organs: Caudate lobe hypertrophy is noted at the liver. Liver is otherwise unremarkable. Gallbladder is surgically absent. No intrahepatic or extrahepatic biliary dilatation. Spleen, pancreas, and adrenal glands are unremarkable. There is symmetric enhancement of the kidneys. No hydronephrosis or perinephric inflammation. There is a 1.7 cm simple cyst in the mid right kidney (no follow-up imaging recommended). GI/Bowel: There is no abnormal bowel distention or pericolonic inflammation. No free intraperitoneal air or fluid. Appendix is not seen. Peritoneum/Retroperitoneum: No retroperitoneal or mesenteric lymphadenopathy. Bones/Soft Tissues: No acute or suspicious osseous abnormality. CTA PELVIS: Aorta/Iliacs: Iliac arteries are patent and normal in caliber. There is a right femoral venous catheter in place. Other: Urinary bladder is within normal limits. Uterus and adnexal structures are grossly unremarkable. There is no pelvic lymphadenopathy. Bones/Soft Tissues: There is focal inflammatory change and soft tissue gas just above the pubic symphysis. There is a vertical nondisplaced fracture of the leftpubic body, which appears subacute. No joint effusion at the hips. There is vertical sclerosis in the bilateral sacral ala, compatible with subacute/chronic nondisplaced bilateral sacral insufficiency fractures. There is a nondisplaced right transverse process fracture at L5 and L4. There is a nondisplaced left transverse process fracture at L5. Lumbar vertebral body heights are preserved. 1. No evidence of aortic aneurysm, intimal dissection, or other acute aortic syndrome. No central pulmonary embolus. 2. No acute pulmonary process or acute process in the abdomen/pelvis. 3. Joint/bursal fluid and gas with surrounding soft tissue edema at the right shoulder, concerning for septic arthritis (assuming no recent intervention). Orthopedic consultation and arthrocentesis are recommended. 4. Focal inflammatory changes and soft tissue gas just above the pubic symphysis with a vertical nondisplaced fracture of the left pubic body, which appears subacute. Possibility of septic arthritis at the pubic symphysis is not excluded. 5. Subacute/chronic vertical insufficiency fractures of the bilateral sacral ala. 6. Nondisplaced fractures of the bilateral L5 and right L4 transverse processes, which are age indeterminate. 7. Age indeterminate mildly depressed superior endplate fracture at T4. 8. Right femoral venous catheter noted. Medical Decision Ltglmy-Nnlluhip-Emdbm: Result 2 of 2 This report contains more than one result. Contains abnormal data Culture, Blood 1 Order: [id number] Status: Final result Visible to patient: No (not released) Next appt: None Specimen Information: Blood 0 Result Notes Component 08/14/21 1205 Resulting Agency Specimen Description .BLOOD [facility] Special Requests RIGHT CVC 10ML [facility] Culture POSITIVE BLOOD CULTURE, RN NOTIFIED: [facility] DIRECT GRAM STAIN FROM BOTTLE: GRAM POSITIVE COCCI IN CLUSTERS [facility] STAPHYLOCOCCUS AUREUS This isolate is methicillin susceptible. Abnormal [facility] (NOTE) Direct Gram Stain from bottle result called to and read back by JENNIFER RICHTER RN AT [facility] C[facility] 3 [id number] 08/15/2021 TB [facility] Susceptibility Staphylococcus aureus (3) Antibiotic Interpretation Microscan Method Status clindamycin Sensitive <=0.25 BACTERIAL SUSCEPTIBILITY PANEL FABIOLA Final erythromycin Sensitive <=0.25 BACTERIAL SUSCEPTIBILITY PANEL FABIOLA Final gentamicin Sensitive <=0.5 BACTERIAL SUSCEPTIBILITY PANEL FABIOLA Final Gentamicin is used only in combination with other active agents that test susceptible. levofloxacin Sensitive 0.25 BACTERIAL SUSCEPTIBILITY PANEL FABIOLA Final oxacillin Sensitive <=0.25 BACTERIAL SUSCEPTIBILITY PANEL FABIOLA Final This staph isolate may be susceptible to Penicillin. Please contact Microbiology for confirmatory testing of susceptibility if Pencillin is a therapeutic consideration. 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 Thank you for allowing us to participate in the care of this patient. Please call with questions. Tita Martinez, PHYSICAL DAMAGE APPRAISER - VOCATIONAL ADVISER ATTESTATION: I have discussed the case, including pertinent history and exam findings with the PHYSICAL DAMAGE APPRAISER. I have evaluated the History, physical findings and pictures of the patient and the lea elements of the encounter have been performed by me. I have reviewed the laboratory data, other diagnostic studies and discussed them with the PHYSICAL DAMAGE APPRAISER. I have updated the medical record where necessary. I agree with the assessment, plan and orders as documented by the PHYSICAL DAMAGE APPRAISER. Eulogio Manzo MD. Pager: - Office: * Jake Moncada MD - 08/18/2021 6:14 AM EDT Orthopedic Progress Note Patient: Miriam German Date of : 1955 66 y.o. female Subjective: Patient seen and examined. No issues, complaints, or concerns overnight. IR aspiration of pubic symphysis yesterday was performed without issue. Pain in shoulder and ankle significantly improved. Denies fever, CP, SOB, N/V. Vitals reviewed, afebrile. Objective: Vitals: 08/18/21 0512 BP: Pulse: Resp: 17 Temp: SpO2: Temp (24hrs), Av.8 F (36.6 C), Min:97.3 F (36.3 C), Max:98.7 F (37.1 C) Gen: NAD, cooperative Cardiovascular: Regular rate Respiratory: Chest symmetric, no accessory muscle use, normal respirations, no audible wheezes MSK: RUE: Dressings on. Diffuse edema to the extremity. Able to tolerate gentle PROM with minimal pain which is significantly improved. Compartments soft. Med/Rad/Ulnar/AIN/PIN motor intact. Axil/MSC/Med/Rad/Ulnar n sensation intact to light touch. Radial pulse 2+. RLE: Dressings on, c,d,i. Minimal tenderness to palpation about the ankle. Minimal pain with AROM which is significantly improved. Compartments soft. EHL/FHL/TA/GSC motor intact. Sensation intact to sural/saph/SPN/DPN distribution. DP/PT pulses 1+. Pelvis: Minimal tenderness to palpation of the pubic symphysis. Markedly improved. Recent Labs 08/17/21 0418 WBC 8.1 HGB 10.8* HCT 35.4* PLT 123* NA 142 K 3.9 BUN 13 CREATININE 0.31* GLUCOSE 89 Lab Results Component Value Date/Time CRP 457.9 (H) 08/16/2021 04:10 AM Antibiotics: Vancomycin See rec for complete list Impression/plan: 66 y.o. female being seen for: -Right shoulder septic arthritis s/p arthroscopic I&D, POD2 -Right ankle symptomatic hardware s/p hardware removal, POD2 -Possible pubic symphysis septic vs inflammatory arthritis -R shoulder cultures - staph spp. Pubic symphysis cultures - [facility]. -No surgical plans for pelvis at this time. -Trend CRP -Maintain dressings. Okay to reinforce as needed. -Abx per ID/primary team. -WB status: WBAT RUE/RLE -Okay for diet & DVT ppx from ortho perspective -Medical management per primary Jake Moncada MD 6:19 AM 08/18/21 * Eris Pathak MD - 08/17/2021 6:34 PM EDT Critical care team - Resident sign-out to medicine service Date and time: 08/17/2021 6:34 PM Patient's name: Miriam German Patient's account/billing number: [id number] Patient's Date of : 1955 Age: 66 y.o. Date of Admission: 08/14/2021 5:10 PM Length of stay during current admission: 3 Primary Care Physician: Bhumika Stacy DO Code Status: Full Code Mode of physician to physician communication: [x] Via telephone [] In person Date and time of sign-out: 08/17/2021 6:34 PM Accepting Monica RIGGER SUPERVISOR: Valerie Miller. Accepting Medicine team: Monica. Accepting team's attending: Dr. Ap Duran Patient's current ICU Bed: 3022 Patient's assigned bed on floor: 2013 [] Med-Surg Monitored [x] Step-down [] Psychiatry ICU [] Psych floor Reason for ICU admission: Sepsis secondary to septic arthritis. ICU course summary: 66-year-old female with history of rheumatoid arthritis on immunosuppressive drugs, presented to [facility] a transfer from [place] ED where she presented for right shoulder pain and suprapubic pain. Patient has a history of traumatic fall in June this year resulting in nondisplaced fracture of left L5 and right L4 transverse process. In [place] ED, there was concern of dissection, CTA chest abdomen pelvis was done which was negativefor dissection, there were findings suggestive of septic arthritis of right shoulder and pubic symphysis. Central line was placed and patient received fluid as per sepsis protocol along with vancomycin and Zosyn. Lab work was concerning for leukocytosis of 17.1, CRP to 49.9, ESR 66 and UA suggestive of UTI. Blood cultures were sent, orthopedic surgery was consulted and patient was transferred to [place] for further management. And [place] ER, patient had severe mottling of bilateral lower and upper extremities (livedo reticularis). General surgery was consulted due to concern for necrotizing fasciitis, they evaluated the patient, have low clinical suspicion for necrotizing fasciitis. Right shoulder joint was aspirated, it was a dry tap by orthopedic. Patient was transferred to medical ICU. IR was consulted and eventually right shoulder joint was aspirated. Her blood cultures from [facility] grew gram-positive cocci MSSA. Infectious disease was consulted and patient was started on antibiotics. Patient got right upper extremity venous Doppler due to concern for DVT which was negative. Echo was obtained, no concern for vegetations. Vanco discontinued 08/17, nafcillin 2 g every 4 started 08/17 by ID. Patient was taken to the OR on 08/16/2021, hardware was removed from right ankle and significant amount of purulent fluid was obtained from right shoulder, arthroscopic I&D. Patient was complaining of neck pain and stiffness, I do not concern for meningitis. Currently patient appears more comfortable, pain controlled with Percocet. Patient is okay to be transferred out of medical ICU. Procedures during patient's ICU stay: Arthroscopic I&D of right shoulder joint by orthopedic surgery Right ankle symptomatic hardware status post hardware removal IR guided pubic symphysis joint aspiration Current Vitals: BP (!) 156/86 Pulse (!) 103 Temp 97.9 F (36.6 C) (Oral) Resp 13 Ht 5' 4 (1.626 m) Wt 235lb 0.2 oz (106.6 kg) SpO2 97% BMI 40.34 kg/m Cultures: Blood cultures: [] None drawn [] Negative [] Positive (Details: ) Urine Culture: [] None drawn [] Negative [] Positive (Details: ) Sputum Culture: [] None drawn [] Negative [] Positive (Details: ) Endotracheal aspirate: [] None drawn [] Negative [] Positive (Details: ) Consults: 1. Infectious disease 2. Rheumatology 3. General surgery 4. Orthopedic Assessment: Patient Active Problem List Diagnosis Date Noted Pyogenic arthritis of right shoulder region (HCC) Acute cystitis without hematuria Septicemia (HCC) 08/14/2021 Additional assessment: 1. MSSA septicemia 2. Right shoulder, right ankle and pubic symphysis septic arthritis s/p right shoulder I&D and s/p right ankle hardware removal. 3. Rheumatoid arthritis on Plaquenil, methotrexate and prednisone. Recommended Follow-up: 1. Continue abx, F/u on ID recommendations 2. F/u on Ortho recommendation. 3. Patient on oral prednisone, poorly tolerant of previous DMARDs, f/u on Rheum recommendations. 4. Pain control 5. Encourage PT/OT 6. Encourage Incentive spirometry. Above mentioned assessment and plan was discussed by me with the admitting medicine resident. The medicine team assigned to the patient by medicine admitting resident will be following up the patientfrom now onwards on the floor. Eris Pathak MD, M.D. Internal Medicine PGY3 08/17/2021, 6:34 PM * Julianne Dickerson, PT - 08/17/2021 1:41 PM EDT Physical Therapy Facility/Department: [facility] CAR 3 Physical Therapy Initial Assessment Name: Miriam German : 1955 Date of Service: 08/17/2021 History copied and pasted from H+P: Miriam German is a 66 y.o. female with PMHx significant for rheumatoid arthritis on plaquenil as well as percocet for chronic pain, hx of traumatic fall back in June resulting in nondisplaced fractures of b/l L5 and R L4 TPs who presented to the ER as a transfer from [place] for concerns of septic arthritis. Patient presented to [place] ER earlier today with concerns for acute lower abdominal pain as well as right shoulder pain. Abdominal pain was noted to be located in the lower abdomen and is very intense, sharp, made worse by moving, 10 out of 10, without any aggravating or relieving factors except may for pressing on it. She was noted to have mottled upper and lower extremities as well as abdomen and trunk. Workup at [place] was showed inflammatory changes in the right shoulder and around pubic symphysis that was concerning for septic arthritis. Ortho was consulted at [place] and the orthopedic surgeon did not feel patient was appropriate for bedside arthrocentesis and needed to have exam performed with xray guidance. Patient was transferred to [place] for Ortho eval here. Noted to have leukocytosis of 17.1. CRP elevated to 249.9. Sed rate 66. Blood cultures, lactate acid were drawn. Patient received one dose of Vancomycin and Zosyn at [place]. Received 30cc/kg bolus. Central line wasplaced for poor peripheral access. Urinalysis also positive for UTI. Patient's son is in the room and states they just saw her this past Thursday and she was ambulatorywith walker and was the best that she had looked in months. Per reports she was ambulatory when shefirst arrived at [place] earlier today. She is normally ambulatory at baseline and able to care for herself. Patient to be admitted to ICU for close monitoring given rapid worsening of clinical presentation. Pt underwent SHOULDER ARTHROSCOPY WITH I&D I&D WITH ANKLE HARDWARE REMOVAL RIGHT 08/16/21. Discharge Recommendations: Further therapy recommended at discharge. PT Equipment Recommendations Equipment Needed: No Patient Diagnosis(es): The primary encounter diagnosis was Pyogenic arthritis of right shoulder region, due to unspecified organism (HCC). A diagnosis of Acute cystitis without hematuria was also pertinent to this visit. Past Medical History: has no past medical history on file. Past Surgical History: has no past surgical history on file. Assessment Pt initially awake and cooperative, but recently received percocet and became more lethargic as assessment progressed. I opted to hold mobility evaluation until pt more able to assist. 10/10 R shoulder and ankle pain, but still falling asleep during PT session. When asked for reason for admission to hospital, pt kept returning to original injury in 2003. She likely will need acute PT prior to returning home d/t increased RU/LE pain and decreased ability to mobilize. Body Structures, Functions, Activity Limitations Requiring Skilled Therapeutic Intervention: Decreased functional mobility ;Decreased ROM;Decreased body mechanics;Decreased strength;Decreased safe awareness;Decreased cognition;Decreased endurance;Increased pain Therapy Prognosis: Good Decision Making: High Complexity Barriers to Learning: lethargy Requires PT Follow-Up: Yes Activity Tolerance Activity Tolerance: Patient limited by fatigue;Patient limited by pain Activity Tolerance Comments: pt very lethargic, easily awakened, easily falling back to sleep Plan Plan Plan: (5-6 visits weekly) Current Treatment Recommendations: Strengthening,ROM,Balance training,Functional mobility training,Transfer training,Gait training,Stair training,Cognitive reorientation,Pain management,Home exerciseprogram,Safety education & training,Therapeutic activities Safety Devices Type of Devices: Call light within reach,Patient at risk for falls,Left in bed Restraints Restraints Initially in Place: No Restrictions Restrictions/Precautions Restrictions/Precautions: Weight Bearing,Surgical Protocols,Fall Risk,General Precautions,Up as Tolerated Required Braces or Orthoses?: No Lower Extremity Weight Bearing Restrictions Right Lower Extremity Weight Bearing: Weight Bearing As Tolerated Upper Extremity Weight Bearing Restrictions Right Upper Extremity Weight Bearing: Weight Bearing As Tolerated Subjective General Patient assessed for rehabilitation services?: Yes Response To Previous Treatment: Not applicable Family / Caregiver Present: No Follows Commands: Impaired (pt falling asleep throughout PT session, required frequent repetition and visual and tactile cues) Subjective Subjective: 10/10 pain R shoulder and R ankle; per RN, pt received percocet ~30 minutes prior to PTarrival Social/Functional History Social/Functional History Lives With: Alone Type of Home: House Home Layout: One level Home Access: Stairs to enter with rails Entrance Stairs - Number of Steps: 2 TEE, 1HR Home Equipment: Rollator,Lift chair (pt questionable historian d/t very sleepy, difficulty staying awake for PT eval) Has the patient had two or more falls in the past year or any fall with injury in the past year?: Unknown Receives Help From: Neighbor (pt states a neighbor comes over and helps her in the am and the pm) ADL Assistance: Needs assistance Ambulation Assistance: Independent (rollator) Transfer Assistance: Independent Active Reach Truck Operator: Yes (pt states normally she drives, but hasn't been recently d/t RU/LE pain--unable to state how long that's been) 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 Vision/Hearing Vision: WFL Hearing: Within functional limits Cognition Orientation Overall Orientation Status: Impaired Orientation Level: Oriented to person;Oriented to place;Oriented to time;Disoriented to situation (pt giving information about original injury in 2003) Cognition Overall Cognitive Status: Exceptions Arousal/Alertness: Inconsistent responses to stimuli Following Commands: Inconsistently follows commands (limited by lethargy) Attention Span: Difficulty attending to directions Cognition Comment: pt very sleepy, possibly d/t pain meds/sedation from surgery; she had great difficulty staying awake, tending to conversation/questions Objective AROM RLE (degrees) RLE AROM: Exceptions--R hip/knee WFL with reps; ankle dorsiflexion lacks ~15 degrees from neutral, to 20 degrees plantarflexion AROM LLE (degrees) LLE AROM : WFL AROM RUE (degrees) RUE AROM : Exceptions--pt unable to tolerate any movement of the R shoulder; elbow flexion to ~90 degrees, full extension; forearm supination ~30 degrees; hand/wrist WFL but swollen PROM LUE (degrees) LUE PROM: WFL Strength RLE Strength RLE: Exception--hip/knee 3-/5; unable to assess ankle d/p pain Strength LLE Strength LLE: Exception--grossly 3+/5 Strength RUE Strength RUE: Exception--unable to assess shoulder d/t pain; elbow 3-/5; hand 3/5 Strength LUE Strength LUE: Exception--shoulder 2+/5 and c/o pain (new onset); elbow distal #+/5 Bed mobility Rolling to Left: Maximum assistance Rolling to Right: Maximum assistance Supine to Sit: Unable to assess Sit to Supine: Unable to assess Bed Mobility Comments: pt very lethargic, falling asleep during questions, not consistently following commands; will check mobility next session Transfers Sit to Stand: Unable to assess Stand to sit: Unable to assess Bed to Chair: Unable to assess Stand Pivot Transfers: Unable to assess Ambulation More Ambulation?: No Stairs/Curb Stairs?: No Exercise Treatment: AAROM x4--poor tolerance to R ankle, R shoulder AM-PAC Score [facility] Inpatient Mobility Raw Score : 7 (08/17/21 [facility]) AM-PAC Inpatient T-Scale Score : 26.42 (08/17/21 [facility]) Mobility Inpatient CMS 0-100% Score: 92.36 (08/17/21 [facility]) Mobility Inpatient CMS G-Code Modifier : CM (08/17/21 [facility]) Goals Biological Aide Goals Time Frame for senior architect goals : 1 visit senior architect goal 1: assess mobility next session and set goals Patient Goals Patient goals : decrease pain, be able to get up Education Patient Education Education Given To: Patient Education Provided: Role of Therapy;Plan of Care;Fall Prevention Strategies;Transfer Training Education Method: Verbal Barriers to Learning: Cognition Education Outcome: Continued education needed Therapy Time Individual Concurrent Group Co-treatment Time In 1242 Time Out 1341 Minutes 59 Timed Code Treatment Minutes: 28 Minutes Tuan Whitaker PT * Rony Smith MD - 08/17/2021 1:37 PM EDT Rheumatology Attending Progress Note SUBJECTIVE: F/U RA OBJECTIVE S/P hardware removal R ankle, shoulder I&D and symphysis pubis aspirate done this AM.Pain fairly well controlled. No new arthralgia. Medications Current Facility-Administered Medications: docusate sodium (COLACE) capsule 100 mg, 100 mg, Oral, Daily oxyCODONE-acetaminophen (PERCOCET) 5-325 MG per tablet 1 tablet, 1 tablet, Oral, Q4H PRN OR oxyCODONE-acetaminophen (PERCOCET) 5-325 MG per tablet 2 tablet, 2 tablet, Oral, Q4H PRN nafcillin 2,000 mg in dextrose 5 % 100 mL IVPB (mini-bag), 2,000 mg, IntraVENous, Q4H 0.9 % sodium chloride infusion, , IntraVENous, Continuous HYDROmorphone (DILAUDID) injection 0.5 mg, 0.5 mg, IntraVENous, Q2H PRN hydrocortisone sodium succinate PF (SOLU-CORTEF) injection 50 mg, 50 mg, IntraVENous, Q12H sodium chloride flush 0.9 % injection 5-40 mL, 5-40 mL, IntraVENous, 2 times per day sodium chloride flush 0.9 % injection 5-40 mL, 5-40 mL, IntraVENous, PRN 0.9 % sodium chloride infusion, , IntraVENous, PRN acetaminophen (TYLENOL) tablet 650 mg, 650 mg, Oral, Q6H PRN OR acetaminophen (TYLENOL) suppository 650 mg, 650 mg, Rectal, Q6H PRN Physical VITALS: BP 135/81 Pulse (!) 101 Temp 97.9 F (36.6 C) (Oral) Resp 24 Ht 5' 4 (1.626 m) Wt235 lb 0.2 oz (106.6 kg) SpO2 96% BMI 40.34 kg/m Skin: No vasculitic lesions. Lymph nodes: no adenopathy HEENT: eyes clear. Nose without abnormalities. Mouth clear Neck: supple with good ROM. Thyroid not palpable Lungs: clear Heart: Normal S1 and S2. No murmurs, gallops or rubs Abdomen: soft and nontender. No hepatosplenomegaly No clubbing, cyanosis or edema Pulses: normal Neuro: Alert and oriented, Muscle strength normal. No focal neurologic signs. MS exam: No tophi or nodules. There is no hand swelling likely edema-no definite active synovitis,right shoulder bandaged, can move R ankle a little Data CBC with Differential: Lab Results Component Value Date WBC 8.1 08/17/2021 RBC 3.62 08/17/2021 HGB 10.8 08/17/2021 HCT 35.4 08/17/2021 PLT 123 08/17/2021 MCV 97.8 08/17/2021 MCH 29.8 08/17/2021 MCHC 30.5 08/17/2021 RDW 14.6 08/17/2021 LYMPHOPCT 5 08/17/2021 MONOPCT 3 08/17/2021 BASOPCT 0 08/17/2021 MONOSABS 0.24 08/17/2021 LYMPHSABS 0.41 08/17/2021 EOSABS 0.00 08/17/2021 BASOSABS 0.00 08/17/2021 CMP: Lab Results Component Value Date NA 142 08/17/2021 K 3.9 08/17/2021 CL 114 08/17/2021 CO2 15 08/17/2021 BUN 13 08/17/2021 CREATININE 0.31 08/17/2021 GFRAA >60 08/17/2021 LABGLOM >60 08/17/2021 GLUCOSE 89 08/17/2021 PROT 5.8 08/14/2021 LABALBU 2.6 08/14/2021 CALCIUM 9.2 08/17/2021 BILITOT 0.60 08/14/2021 ALKPHOS 165 08/14/2021 AST 40 08/14/2021 ALT 38 08/14/2021 ASSESSMENT AND PLAN Chronic RA-on chronic prednisone-poorly tolerant of previous DMARDs. Systemic MSSA infection. Will switch to oral prednisone and observe. * Eulogio Manzo MD - 08/17/2021 9:15 AM EDT [facility] - Progress Note Today's Date and Time: 08/17/2021, 9:16 AM Impression : Septicemia 08/14/21 MSSA Rt shoulder septic arthritis with staph aureus RA on plaquenil Fall June 2021 Pubic symphysis fx-likely related to fall in June 2021 Lumbar fx-likely related to fall in June 2021 Elevated CRP Leukocytosis Fever Hx right ankle hardware placement 1999 & 2007 Recommendations: Vancomycin discontinued 08/17/21 Nafcillin 2 gm Q 4 hr initiated 08/17/21 MSSA growing in blood cultures and synovial joint fluid from right shoulder. No obvious vegetation noted on echo Medical Decision Making/Summary/Discussion:08/17/2021 OR for right ankle hardware removal, right shoulder I&D on 08/16/21 Infection Control Recommendations [place] Precautions Antimicrobial Stewardship Recommendations Simplification of therapy Targeted therapy Coordination of Outpatient Care: Estimated Length of IV antimicrobials:TBD Patient will need Midline Catheter Insertion: TBD Patient will need PICC line Insertion:TBD Patient will need: Home IV , Infusion Center, SNF, LTAC: TBD Patient will need outpatient wound care:TBD Chief complaint/reason for consultation: Concern for septic arthritis History of Present Illness: Miriam German is a 66 y.o.-year-old female who was initially admitted on 08/14/2021. Patient seen at the request of Dr. Martell INITIAL HISTORY: This patient, with a history of RA on plaquenil and a pubic symphysis and lumbar fx s/p fall in June 2021, initially presented to [facility] ED on 08/14/21 with complaints of severe right shoulder pain, neck pain and pelvic/suprapubic pain. Abnormal lab findings included leukocytosis of 17.1, CRP of 249.9, ESR 66. The patient also had a mottled appearance to her skin and cold extremities. She also appeared very dehydrated and her neck was stiff. A CTA of the chest/abd/pelvis was completed to rule out aortic dissection. 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 CT of pubic symphysis showing healing fracture at about 3 weeks, which is likely related to her fall in June. Healing lumbar fx was also noted. Initially, there was concern for a left acetabulum fracture on the initial imaging, but it was likely an artifact per Radiology. She received a fluid bolus and was initiated on Zosyn and Vancomycin. The patient was transferred to [facility] for a higher level of care. Abnormal lab findings at [facility] included: Lactic: 2.8 Pro floyd: 3.47 Alk phos: 187 CRP: 258.6 WBC: 23.3 Abs neutr: 19.1 ESR: 84 Blood cultures from [place] on 08/14/21 came back positive for gram positive cocci clusters X 2. Additional imaging was ordered by Ortho and there was initial concern for necrotizing fasciitis in the right coracobrachialis, but further evaluation by the radiologist indicated no concern for NF. There are soft tissue changes present and edema over brachialis muscles concerning for soft tissue infection. Ortho attempted aspiration of fluid from her right shoulder but it was a dry tap. IR was consulted, and she underwent a right shoulder aspiration with 4 ml of cloudy barbara fluid aspirated.The fluid has Gram positive cocci in clusters. They attempted a LP, but it was unsuccessful as the patient was unable to tolerate the procedure because of positioning. According to the patient, she also has a PMH of orthopedic surgery on her right ankle with hardwareplacement in 1999. She said that her body rejected the hardware in 2007 and it had to be replaced. She feels that the screw in right ankle is coming out again. Imaging of her right ankle is pending. General Surgery think the mottling of her skin may be secondary livedo reticularis associated with rheumatoid arthritis. She stopped taking plaquenil about a week ago as she wasn't feeling well. Rheumatology has been consulted. Infectious Disease was consulted for antibiotic recommendations CURRENT EVALUATION 08/17/2021 Afebrile VS stable with HTN 3--> 2.5-->2 L NC SpO2: 95-->98% The patient is feeling better today with less pain. She underwent right shoulder arthroscopy with I&D and right ankle I&D with hardware removalper Orthopedic Surgery on 08/17/21. A significant amount of purulent fluid was noted at the right shoulder joint. Right ankle did not appear infected. Rheumatology have initiated the patient on hydrocortisone 50 mg Q 12 hours as the patient is on chronic steroids at home. CRP increased to 458 but WBC is decreasing. Staph Aureus is growing in synovial fluid aspirate from right shoulder as well as blood cultures-MSSA isolated on blood culturesa Vancomycin changed to Nafcillin We will continue to follow Labs, X rays reviewed: 08/17/2021 BUN:12-->12-->13 Cr:0.60-->0.42-->0.31 WBC:17.1-->23.3-->16.9-->9.9-->8.1 Hb:11.7-->9.9-->10.8 Plat: 183-->130-->123 CRP: 249.9-->258.6-->457.9 Lactic: 2.7 ESR: 66-->84 Pro-floyd: 3.47 Cultures: Urine: 08/16/21: No growth Blood: 08/14/21: MSSA x 2 08/16/21: Pending Sputum : Right shoulder aspirate: 08/15/21: Staph aureus 08/16/21: Pending MRSA Nares: 08/14/21: Not detected Discussed with patient, RN, family. I have personally reviewed the past medical history, past surgical history, medications, social history, and family history, and I have updated the database accordingly. Past Medical History: No past medical history on file. Past Surgical History: No past surgical history on file. Medications: docusate sodium 100 mg Oral Daily vancomycin 1,500 mg IntraVENous Q12H hydrocortisone sodium succinate PF 50 mg IntraVENous Q12H sodium chloride flush 5-40 mL IntraVENous 2 times per day vancomycin (VANCOCIN) intermittent dosing (placeholder) Other RX Placeholder Social History: Social History Socioeconomic History Marital status: Single Spouse name: Not on file Number of children: Not on file Years of education: Not on file Highest education level: Not on file Occupational History Not on file Tobacco Use Smoking status: Not on file Smokeless tobacco: Not on file Vaping Use Vaping Use: Never used Substance and Sexual Activity Alcohol use: Not on file Drug use: Not on file Sexual activity: Not on file Other Topics Concern Not on file Social History Narrative Not on file Social Determinants of Health Financial Resource Strain: Difficulty of Paying Living Expenses: Not on file Food Insecurity: Worried About Running Out of Food in the Last Year: Not on file Ran Out of Food in the Last Year: Not on file Transportation Needs: Lack of Transportation (Medical): Not on file Lack of Transportation (Non-Medical): Not on file Physical Activity: Days of Exercise per Week: Not on file Minutes of Exercise per Session: Not on file Stress: Feeling of Stress : Not on file Social Connections: Frequency of Communication with Friends and Family: Not on file Frequency of Social Gatherings with Friends and Family: Not on file Attends Christianity Services: Not on file Active Member of Clubs or Organizations: Not on file Attends Club or Organization Meetings: Not on file Marital Status: Not on file Intimate Partner Violence: Fear of Current or Ex-Partner: Not on file Emotionally Abused: Not on file Physically Abused: Not on file Sexually Abused: Not on file Housing Stability: Unable to Pay for Housing in the Last Year: Not on file Number of Places Lived in the Last Year: Not on file Unstable Housing in the Last Year: Not on file Family History: No family history on file. Allergies: Patient has no known allergies. Review of Systems: Constitutional: Generalized pain improved Head: No headaches Eyes: No double vision or blurry vision. No conjunctival inflammation. ENT: No sore throat or runny nose.. No hearing loss, tinnitus or vertigo. Cardiovascular: No chest pain or palpitations.No shortness of breath. MARSHALL Lung: No shortness of breath or cough. No sputum production Abdomen: No nausea, vomiting, diarrhea, or abdominal pain.. No cramps. Genitourinary: No increased urinary frequency, or dysuria. No hematuria. No suprapubic or CVA pain Musculoskeletal: generalized myalgias Hematologic: No bleeding or bruising. Generalized mottling present Neurologic: No headache, weakness, numbness, or tingling. Integument: Generalized mottling. Psychiatric: No depression. Endocrine: No polyuria, no polydipsia, no polyphagia. Physical Examination : Patient Vitals for the past 8 hrs: BP Temp Temp src Pulse Resp SpO2 Weight 08/17/21 0847 13 08/17/21 0817 12 08/17/21 0800 (!) 151/83 97.5 F (36.4 C) Oral 98 20 98 % 08/17/21 0700 (!) 153/78 93 14 97 % 08/17/21 0628 (!) 146/82 96 15 08/17/21 0600 (!) 168/113 97.7 F (36.5 C) Oral 89 12 97 % 08/17/21 0547 235 lb 0.2 oz (106.6 kg) 08/17/21 0500 (!) 158/73 84 12 08/17/21 0400 (!) 152/63 97.5 F (36.4 C) Oral 83 11 97 % 08/17/21 0300 139/81 83 10 97 % 08/17/21 0200 130/75 97.7 F (36.5 C) Oral 86 10 96 % General Appearance: Awake, alert, and in no apparent distress Head: Normocephalic, no trauma Eyes: Pupils equal, round, reactive to light and accommodation; extraocular movements intact; sclera anicteric; conjunctivae pink. No embolic phenomena. ENT: Oropharynx clear, without erythema, exudate, or thrush. No tenderness of sinuses. Mouth/throat: mucosa pink and moist. No lesions. Dentition in good repair. Neck:Supple, without lymphadenopathy. Thyroid normal, No bruits. Pulmonary/Chest: Clear to auscultation, without wheezes, rales, or rhonchi. No dullness to percussion. Cardiovascular: Regular rate and rhythm without murmurs, rubs, or gallops. Abdomen: Soft, tender. Bowel sounds normal. No organomegaly All four Extremities: No cyanosis, clubbing, edema, or effusions. Mottling to skin. Cool extremities. Surgical scarring to right ankle Neurologic: No gross sensory or motor deficits. Skin: cool and dry with good turgor.Mottling. No ulcerations. No open wounds. Medical Decision Making -Laboratory: I have independently reviewed/ordered the following labs: CBC with Differential: Recent Labs 08/16/21 0410 08/17/21 0418 WBC 9.9 8.1 HGB 9.9* 10.8* HCT 32.3* 35.4* PLT 130* 123* LYMPHOPCT 5* 5* MONOPCT 2 3 BMP: Recent Labs 08/16/21 0410 08/17/21 0418 NA 144 142 K 3.3* 3.9 CL 112* 114* CO2 22 15* BUN 12 13 CREATININE 0.42* 0.31* MG 2.0 -- Hepatic Function Panel: Recent Labs 08/14/21 0923 08/14/21 1731 PROT 6.7 5.8* LABALBU 3.6 2.6* BILITOT 0.64 0.60 ALKPHOS 187* 165* ALT 31 38* AST 31 40* No results for input(s): RPR in the last 72 hours. No results for input(s): HIV in the last 72 hours. No results for input(s): BC in the last 72 hours. Lab Results Component Value Date RBC 3.62 08/17/2021 WBC 8.1 08/17/2021 TURBIDITY Clear 08/14/2021 Lab Results Component Value Date CREATININE 0.31 08/17/2021 GLUCOSE 89 08/17/2021 Medical Decision Making-Imaging: XR SHOULDER RIGHT (MIN 2 VIEWS) Result Date: 08/14/2021 EXAMINATION: THREE XRAY VIEWS OF THE RIGHT SHOULDER 08/14/2021 7:13 pm COMPARISON: None. HISTORY: ORDERING SYSTEM PROVIDED HISTORY: effusion TECHNOLOGIST PROVIDED HISTORY: AP, scapular Y, axillary. Thank you. effusion FINDINGS: Glenohumeral joint is normally aligned. No evidence of acute fracture ordislocation. No abnormal periarticular calcifications. AC joint and glenohumeral joint degenerativechanges Visualized lung is unremarkable. No acute abnormality. CT HUMERUS RIGHT W CONTRAST Addendum Date: 08/15/2021 ADDENDUM: Critical results were called by Dr. Mik Cantu to Dr. Mcelroy on 08/15/2021 at 00:07. Result Date: 08/15/2021 EXAMINATION: CT OF THE RIGHT HUMERUS WITH CONTRAST; CT OF THE RIGHT SHOULDER WITH CONTRAST 08/14/2021 9:02 pm TECHNIQUE: CT of the right humerus was performed with the administration of intravenous contrast. Multiplanar reformatted images are provided for review. Automated exposure control, iterative reconstruction, and/or weight based adjustment of the mA/kV was utilized to reduce the radiation dose to as low as reasonably achievable.; CT of the right shoulder was performed with the administration of intravenous contrast. Multiplanar reformatted images are provided for review. Automated exposure control, iterative reconstruction, and/or weight based adjustment of the mA/kV was utilized to reduce the radiation dose to as low as reasonably achievable. COMPARISON: None. HISTORY ORDERING SYSTEM PROVIDED HISTORY: concern for nec fasc TECHNOLOGIST PROVIDED HISTORY: concern for nec fasc FINDINGS: Bones: No evidence of acute fracture or dislocation. No aggressive appearing osseous abnormalityor periostitis. Bone density is normal. Soft Tissue: Mild subcutaneous fatty tissue edema surroundsthe superior, anterior and posterior aspects of the shoulder and extends inferiorly down the lateral aspect of the arm. Additionally, there is mild edema within the axilla which may also involve the coracobrachialis muscle. Within the upper portion of the belly of the coracobrachialis muscle, soft tissue air is present. It is localized and no other soft tissue air is identified. There is prominence of the subacromial/subdeltoid bursa posterolaterally. There is enhancement of the capsule of the bursa. Joint: No significant degenerative changes. No osseous erosions. Soft tissue air identified within upper portion of the coracobrachialis muscle which shows surrounding inflammatory change. This raises concern for necrotizing fasciitis although no other soft tissuegas is evident. This could potentially represent intravenous air related to the contrast injection.Inflammatory change/edema otherwise involves deeper subcutaneous fatty tissues anterior, superior and posterior to the shoulder and more superficially down the lateral aspect of the upper arm. CT TIBIA FIBULA LEFT W CONTRAST Result Date: 08/14/2021 EXAMINATION: CT OF THE LEFT FEMUR WITH CONTRAST; CT OF THE LEFT TIBIA AND FIBULA WITH CONTRAST 08/14/2021 9:01 pm TECHNIQUE: CT of the left femur was performed with the administration of intravenous contrast. Multiplanar reformatted images are provided for review. Automated exposure control, iterative reconstruction, and/or weight based adjustment of the mA/kV was utilized to reduce the radiation dose to as low as reasonably achievable.; CT of the left tibia and fibula was performed with the administration of intravenous contrast. Multiplanar reformatted images are provided for review. Automated exposure control, iterative reconstruction, and/or weight based adjustment of the mA/kV was utiliz ed to reduce the radiation dose to as low as reasonably achievable. COMPARISON: None. HISTORY ORDERING SYSTEM PROVIDED HISTORY: concern for nec fasc TECHNOLOGIST PROVIDED HISTORY: concern for nec fasc FINDINGS: Bones: At the medial aspect of body of the left pubis, there is healing fracture with mild surrounding, predominantly anterior, soft tissue swelling. Question of nondisplaced very subtle fracture at the anterior aspect of the acetabulum which may represent artifact. On the right, sclerotic reaction is present at the mid inferior pubic ramus likely representing healing fracture. No displacement. Osseous structures of the femur, tibia/fibula and visualized foot are otherwise unremarkable. Soft Tissue: No evidence of necrotizing fasciitis. There is mild superficial subcutaneous edema at the posterior and lateral aspects of the lower leg extending into the plantar aspect of the hindfoot. Joint: Mild degenerative changes incidentally noted. No evidence of necrotizing fasciitis throughout the visualized left lower extremity. Healing fracture evident at the body of the left pubis and mid right inferior pubic ramus. Questionable very subtle nondisplaced fracture at the anterior aspect of the left acetabulum. This may represent artifact. CT FEMUR LEFT W CONTRAST Result Date: 08/14/2021 EXAMINATION: CT OF THE LEFT FEMUR WITH CONTRAST; CT OF THE LEFT TIBIA AND FIBULA WITH CONTRAST 08/14/2021 9:01 pm TECHNIQUE: CT of the left femur was performed with the administration of intravenous contrast. Multiplanar reformatted images are provided for review. Automated exposure control, iterative reconstruction, and/or weight based adjustment of the mA/kV was utilized to reduce the radiation dose to as low as reasonably achievable.; CT of the left tibia and fibula was performed with the administration of intravenous contrast. Multiplanar reformatted images are provided for review. Automated exposure control, iterative reconstruction, and/or weight based adjustment of the mA/kV was utiliz ed to reduce the radiation dose to as low as reasonably achievable. COMPARISON: None. HISTORY ORDERING SYSTEM PROVIDED HISTORY: concern for nec fasc TECHNOLOGIST PROVIDED HISTORY: concern for nec fasc FINDINGS: Bones: At the medial aspect of body of the left pubis, there is healing fracture with mild surrounding, predominantly anterior, soft tissue swelling. Question of nondisplaced very subtle fracture at the anterior aspect of the acetabulum which may represent artifact. On the right, sclerotic reaction is present at the mid inferior pubic ramus likely representing healing fracture. No displacement. Osseous structures of the femur, tibia/fibula and visualized foot are otherwise unremarkable. Soft Tissue: No evidence of necrotizing fasciitis. There is mild superficial subcutaneous edema at the posterior and lateral aspects of the lower leg extending into the plantar aspect of the hindfoot. Joint: Mild degenerative changes incidentally noted. No evidence of necrotizing fasciitis throughout the visualized left lower extremity. Healing fracture evident at the body of the left pubis and mid right inferior pubic ramus. Questionable very subtle nondisplaced fracture at the anterior aspect of the left acetabulum. This may represent artifact. CT SHOULDER RIGHT W CONTRAST Addendum Date: 08/15/2021 ADDENDUM: Critical results were called by Dr. Mik Cantu to Dr. Mcelroy on 08/15/2021 at 00:07. Result Date: 08/15/2021 EXAMINATION: CT OF THE RIGHT HUMERUS WITH CONTRAST; CT OF THE RIGHT SHOULDER WITH CONTRAST 08/14/2021 9:02 pm TECHNIQUE: CT of the right humerus was performed with the administration of intravenous contrast. Multiplanar reformatted images are provided for review. Automated exposure control, iterative reconstruction, and/or weight based adjustment of the mA/kV was utilized to reduce the radiation dose to as low as reasonably achievable.; CT of the right shoulder was performed with the administration of intravenous contrast. Multiplanar reformatted images are provided for review. Automated exposure control, iterative reconstruction, and/or weight based adjustment of the mA/kV was utilized to reduce the radiation dose to as low as reasonably achievable. COMPARISON: None. HISTORY ORDERING SYSTEM PROVIDED HISTORY: concern for nec fasc TECHNOLOGIST PROVIDED HISTORY: concern for nec fasc FINDINGS: Bones: No evidence of acute fracture or dislocation. No aggressive appearing osseous abnormalityor periostitis. Bone density is normal. Soft Tissue: Mild subcutaneous fatty tissue edema surroundsthe superior, anterior and posterior aspects of the shoulder and extends inferiorly down the lateral aspect of the arm. Additionally, there is mild edema within the axilla which may also involve the coracobrachialis muscle. Within the upper portion of the belly of the coracobrachialis muscle, soft tissue air is present. It is localized and no other soft tissue air is identified. There is prominence of the subacromial/subdeltoid bursa posterolaterally. There is enhancement of the capsule of the bursa. Joint: No significant degenerative changes. No osseous erosions. Soft tissue air identified within upper portion of the coracobrachialis muscle which shows surrounding inflammatory change. This raises concern for necrotizing fasciitis although no other soft tissuegas is evident. This could potentially represent intravenous air related to the contrast injection.Inflammatory change/edema otherwise involves deeper subcutaneous fatty tissues anterior, superior and posterior to the shoulder and more superficially down the lateral aspect of the upper arm. XR PELVIS (MIN 3 VIEWS) Result Date: 08/14/2021 EXAMINATION: ONE XRAY VIEW OF THE PELVIS 08/14/2021 7:13 pm COMPARISON: CT performed concurrently. HISTORY: ORDERING SYSTEM PROVIDED HISTORY: previous fractures TECHNOLOGIST PROVIDED HISTORY: AP, inlet, outlet and Judet views (obturator and iliac oblique). Thank you previous fractures FINDINGS: Right femoral central venous catheter terminating in the expected location of the external iliac vein. Nondisplaced fractures of the left superior and inferior pubic rami at the pubic symphysis and right inferior and superior pubic rami with some healing callus formation. Nondisplaced bilateral sacral ala fractures. Contrast distends the urinary bladder and partially obscures oblique views.. Nondisplaced fracture of the left superior and inferior pubic rami at the pubic symphysis with ongoing healing. Nondisplaced right superior and inferior pubic rami fractures with ongoing healing. Nondisplaced bilateral sacral ala fractures with ongoing healing. CT FEMUR RIGHT W CONTRAST Result Date: 08/15/2021 EXAMINATION: CT OF THE RIGHT FEMUR WITH CONTRAST; CT OF THE RIGHT TIBIA AND FIBULA WITH CONTRAST 08/14/2021 9:01 pm TECHNIQUE: CT of the right femur was performed with the administration of intravenous contrast. Multiplanar reformatted images are provided for review. Automated exposure control, itera tive reconstruction, and/or weight based adjustment of the mA/kV was utilized to reduce the radiation dose to as low as reasonably achievable.; CT of the right tibia and fibula was performed with theadministration of intravenous contrast. Multiplanar reformatted images are provided for review. Automated exposure control, iterative reconstruction, and/or weight based adjustment of the mA/kV was utilized to reduce the radiation dose to as low as reasonably achievable. COMPARISON: None. HISTORY ORDERING SYSTEM PROVIDED HISTORY: concern for nec fasc TECHNOLOGIST PROVIDED HISTORY: concern for necfasc FINDINGS: Bones: Healing fractures at the medial body of the left pubis and mid inferior rightpubic ramus. Osseous structures of the entire right lower extremity are otherwise unremarkable. Soft Tissue: No evidence of necrotizing fasciitis. Minor superficial edema in the subcutaneous fatty tissues is present lateral to the right hip and intermittently in the lateral and posterior aspects ofthe lower leg. Soft tissues of the right lower extremity are otherwise unremarkable. Joint: Mild degenerative changes incidentally noted. No evidence of necrotizing fasciitis of the right lower extremity. Mild superficial subcutaneous fatty edema lateral to the right hip and intermittently laterally and posteriorly in the lower leg. Healing fractures at the medial aspect of the left body of pubis and mid right inferior pubic ramus. CT TIBIA FIBULA RIGHT W CONTRAST Result Date: 08/15/2021 EXAMINATION: CT OF THE RIGHT FEMUR WITH CONTRAST; CT OF THE RIGHT TIBIA AND FIBULA WITH CONTRAST 08/14/2021 9:01 pm TECHNIQUE: CT of the right femur was performed with the administration of intravenous contrast. Multiplanar reformatted images are provided for review. Automated exposure control, itera tive reconstruction, and/or weight based adjustment of the mA/kV was utilized to reduce the radiation dose to as low as reasonably achievable.; CT of the right tibia and fibula was performed with theadministration of intravenous contrast. Multiplanar reformatted images are provided for review. Automated exposure control, iterative reconstruction, and/or weight based adjustment of the mA/kV was utilized to reduce the radiation dose to as low as reasonably achievable. COMPARISON: None. HISTORY ORDERING SYSTEM PROVIDED HISTORY: concern for nec fasc TECHNOLOGIST PROVIDED HISTORY: concern for necfasc FINDINGS: Bones: Healing fractures at the medial body of the left pubis and mid inferior rightpubic ramus. Osseous structures of the entire right lower extremity are otherwise unremarkable. Soft Tissue: No evidence of necrotizing fasciitis. Minor superficial edema in the subcutaneous fatty tissues is present lateral to the right hip and intermittently in the lateral and posterior aspects ofthe lower leg. Soft tissues of the right lower extremity are otherwise unremarkable. Joint: Mild degenerative changes incidentally noted. No evidence of necrotizing fasciitis of the right lower extremity. Mild superficial subcutaneous fatty edema lateral to the right hip and intermittently laterally and posteriorly in the lower leg. Healing fractures at the medial aspect of the left body of pubis and mid right inferior pubic ramus. CTA CHEST ABDOMEN PELVIS W CONTRAST Result Date: 08/14/2021 EXAMINATION: CTA OF THE CHEST, ABDOMEN AND PELVIS WITH CONTRAST 08/14/2021 10:22 am: TECHNIQUE: CTA of the chest, abdomen and pelvis was performed after the administration of intravenous contrast. Multiplanar reformatted images are provided for review. MIP images are provided for review. Automated exposure control, iterative reconstruction, and/or weight based adjustment of the mA/kV was utilized to reduce the radiation dose to as low as reasonably achievable. 3D reconstructed images were performed on a separate workstation and provided for review. COMPARISON: None HISTORY: ORDERING SYSTEM PROVIDED HISTORY: r/o dissection TECHNOLOGIST PROVIDED HISTORY: R/o dissection Decision Support Exception - unselect if not a suspected or confirmed emergency medical condition->Emergency Medical Condition (MA) Abdominal pain. Right shoulder pain. History of rheumatoid arthritis. FINDINGS: CTA CHEST: Thoracic aorta: No evidence of thoracic aortic aneurysm or dissection. No acute abnormality of the aorta. Mediastinum: Heart is normal in size. Main pulmonary artery is normal in caliber. No evidence of central pulmonary embolus. No mediastinal or hilar lymphadenopathy. Lungs/Pleura: Lungs are without acute process. There is mild scattered interstitial thickening, likely chronic. No focal consolidation or pulmonary edema. No evidence of pleural effusion or pneumothorax. Soft Tissues/Bones: There is joint effusion and bursal fluid at the right shoulder. Multiple foci of gas are seen within the fluid, which extends into the right axillary region. There is stranding in the right axillary region. There is loss of the intramuscular fat planes about the right shoulder. The right shoulder is incompletely included in the field of view. No osseous destructive change in the imaged portions of the shoulder. There is a mildly depressed superior endplate fracture at T4, which is age indeterminate. CTA ABDOMEN: Abdominal aorta/Branches: Abdominal aorta is normal in caliber. There is mild scattered atherosclerosis. Origins of the celiac, superior mesenteric, renal, and inferior mesenteric arteries are patent and grossly normal in caliber. No evidence of intimal dissection. Organs: Caudate lobe hypertrophy is noted at the liver. Liver is otherwise unremarkable. Gallbladder is surgically absent. No intrahepatic or extrahepatic biliary dilatation. Spleen, pancreas, and adrenal glands are unremarkable. There is symmetric enhancement of the kidneys. No hydronephrosis or perinephric inflammation. There is a 1.7 cm simple cyst in the mid right kidney (no follow-up imaging recommended). GI/Bowel: There is no abnormal bowel distention or pericolonic inflammation. No free intraperitoneal air or fluid. Appendix is not seen. Peritoneum/Retroperitoneum: No retroperitoneal or mesenteric lymphadenopathy. Bones/Soft Tissues: No acute or suspicious osseous abnormality. CTA PELVIS: Aorta/Iliacs: Iliac arteries are patent and normal in caliber. There is a right femoral venous catheter in place. Other: Urinary bladder is within normal limits. Uterus and adnexal structures are grossly unremarkable. There is no pelvic lymphadenopathy. Bones/Soft Tissues: There is focal inflammatory change and soft tissue gas just above the pubic symphysis. There is a vertical nondisplaced fracture of the leftpubic body, which appears subacute. No joint effusion at the hips. There is vertical sclerosis in the bilateral sacral ala, compatible with subacute/chronic nondisplaced bilateral sacral insufficiency fractures. There is a nondisplaced right transverse process fracture at L5 and L4. There is a nondisplaced left transverse process fracture at L5. Lumbar vertebral body heights are preserved. 1. No evidence of aortic aneurysm, intimal dissection, or other acute aortic syndrome. No central pulmonary embolus. 2. No acute pulmonary process or acute process in the abdomen/pelvis. 3. Joint/bursal fluid and gas with surrounding soft tissue edema at the right shoulder, concerning for septic arthritis (assuming no recent intervention). Orthopedic consultation and arthrocentesis are recommended. 4. Focal inflammatory changes and soft tissue gas just above the pubic symphysis with a vertical nondisplaced fracture of the left pubic body, which appears subacute. Possibility of septic arthritis at the pubic symphysis is not excluded. 5. Subacute/chronic vertical insufficiency fractures of the bilateral sacral ala. 6. Nondisplaced fractures of the bilateral L5 and right L4 transverse processes, which are age indeterminate. 7. Age indeterminate mildly depressed superior endplate fracture at T4. 8. Right femoral venous catheter noted. Medical Decision [id number]: Result 2 of 2 This report contains more than one result. Contains abnormal data Culture, Blood 1 Order: [id number] Status: Final result Visible to patient: No (not released) Next appt: None Specimen Information: Blood 0 Result Notes Component 08/14/21 1205 Resulting Agency Specimen Description .BLOOD [facility] Special Requests RIGHT CVC 10ML [facility] Culture POSITIVE BLOOD CULTURE, RN NOTIFIED: [facility] [place] Culture DIRECT GRAM STAIN FROM BOTTLE: GRAM POSITIVE COCCI IN CLUSTERS [facility] [place] Culture STAPHYLOCOCCUS AUREUS This isolate is methicillin susceptible. Abnormal [facility] [place] Culture (NOTE) Direct Gram Stain from bottle result called to and read back by JENNIFER RICHTER RN AT [facility] [id number] 08/15/2021 TB [facility] [place] Susceptibility Staphylococcus aureus (3) Antibiotic Interpretation Microscan Method Status clindamycin Sensitive <=0.25 BACTERIAL SUSCEPTIBILITY PANEL FABIOLA Final erythromycin Sensitive <=0.25 BACTERIAL SUSCEPTIBILITY PANEL FABIOLA Final gentamicin Sensitive <=0.5 BACTERIAL SUSCEPTIBILITY PANEL FABIOLA Final Gentamicin is used only in combination with other active agents that test susceptible. levofloxacin Sensitive 0.25 BACTERIAL SUSCEPTIBILITY PANEL FABIOLA Final oxacillin Sensitive <=0.25 BACTERIAL SUSCEPTIBILITY PANEL FABIOLA Final This staph isolate may be susceptible to Penicillin. Please contact Microbiology for confirmatory testing of susceptibility if Pencillin is a therapeutic consideration. 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 Thank you for allowing us to participate in the care of this patient. Please call with questions. Tita Martinez, PHYSICAL DAMAGE APPRAISER - VOCATIONAL ADVISER ATTESTATION: I have discussed the case, including pertinent history and exam findings with the PHYSICAL DAMAGE APPRAISER. I have evaluated the History, physical findings and pictures of the patient and the lea elements of the encounter have been performed by me. I have reviewed the laboratory data, other diagnostic studies and discussed them with the PHYSICAL DAMAGE APPRAISER. I have updated the medical record where necessary. I agree with the assessment, plan and orders as documented by the PHYSICAL DAMAGE APPRAISER. Eulogio Manzo MD. Pager: - Office: * Reyes Thrasher MD - 08/17/2021 8:42 AM EDT INTENSIVE CARE UNIT Resident Physician Progress Note Patient - Miriam German Date of Admission - 08/14/2021 5:10 PM Date of Evaluation - 08/17/2021 Room and Bed Number - 3022/3022-01 Hospital Day - 3 Chief Complaint Patient presents with Shoulder Pain Septic arthritis to R shoulder, possible pelvic sepsis Fall SUBJECTIVE: HISTORY OF PRESENT ILLNESS: This is a 66-year-old female with a history of rheumatoid arthritis on Plaquenil, who presented to the ER for initially abdominal pain and right shoulder pain. Of note patient does have a history of a traumatic fall in June resulting in a nondisplaced fracture of bilateral L L5 and right L4 transverse processes. patient was prescribed to be a poor historian at [facility]. Patient reported that the pain was debilitating both the shoulder and abdomen, worse with movement, and described as sharp. Pain in the right shoulder have been going on for approximately 1 day and is is worse than normal RA pain. She notes that at 3 AM, she developed the lower abdominal pain that is only worsewith movement of the lower extremities and pressing on it. Patient also had mild cold extremities at that time there was concern for possible dissection so CTA chest abdomen pelvis was ordered. Whilethere is no dissection on CT imaging, there is concern for septic arthritis of the right shoulder along with the right pubic symphysis. Patient's orthopedic surgery, Dr. Farmer, came to the ER for evaluation and decided the patient needed to have higher level of care. Patient was sent to [facility] for possible orthopedic surgery and septic management. Patient did have a central line placed in the right femoral vein. Patient did receive a 30 mL/kg bolus along with vancomycin and [facility] IV[facility] for leukocytosis of 17.1, CRP of 249.9, ESR 66, along with UTI. Blood cultures that time were pending. Upon arrival at [facility] ER patient was found to have dry mucous membranes, severe pain along the right-sided shoulder and hip and severe mottling on the bilateral lower extremities along with the left aspect of the upper extremities. Lab work at [facility] was concerning for a CRP of 258.6, leukocytosis of 23.3, and ESR of 84. Orthopedic surgery was consulted and further imaging was obtained of the right shoulder, bilateral femurs, and bilateral tibia and fibula. There is concern for possible necrotizing fasciitis based on air in the coracobrachialis muscle which may be related toIV contrast however did note significant deep tissue edema of the shoulder. General surgery was consulted and time had no further recommendations as they had low clinical suspicion for necrotizing fasciitis. Aspiration of the right shoulder was a dry tap and IR was consulted to do the right hip. 08/15 Blood cultures did grow out gram-positive cocci from [facility]. OVERNIGHT EVENTS: Patient went to the OR by orthopedic surgery, had hardware removed from right ankle no signs of infection in the right ankle per operative note. Patient found to have significant amount of purulent fluid coming from the right shoulder. Given patient did have neck pain and stiffness discussed with infectious disease possibility of meningitis however felt more likely source of infection was right shoulder, as well as possibly right ankle and pubic symphysis. TODAY: Upon examination today patient appears significant more comfortable, states her pain has been controlled with Percocet as well as improved postprocedure. AWAKE & FOLLOWING COMMANDS: [] No [x] Yes VASOPRESSORS: [] No [] Yes Vasopressor Agent [] Levophed [] Dopamine [] Vasopressin [] Dobutamine [] Phenylephrine [] Epinephrine OBJECTIVE: VITAL SIGNS: Patient Vitals for the past 8 hrs: BP Temp Temp src Pulse Resp SpO2 Weight 05/28/22 0817 12 08/17/21 0800 (!) 151/83 97.5 F (36.4 C) Oral 98 20 98 % 08/17/21 0700 (!) 153/78 93 14 97 % 08/17/21 0628 (!) 146/82 96 15 08/17/21 0600 (!) 168/113 97.7 F (36.5 C) Oral 89 12 97 % 08/17/21 0547 235 lb 0.2 oz (106.6 kg) 08/17/21 0500 (!) 158/73 84 12 08/17/21 0400 (!) 152/63 97.5 F (36.4 C) Oral 83 11 97 % 08/17/21 0300 139/81 83 10 97 % 08/17/21 0200 130/75 97.7 F (36.5 C) Oral 86 10 96 % 08/17/21 0100 (!) 162/84 88 12 96 % Last Body weight: Wt Readings from Last 3 Encounters: 08/17/21 235 lb 0.2 oz (106.6 kg) 08/14/21 213 lb (96.6 kg) Body Mass Index : Body mass index is 40.34 kg/m . Tmax over 24 hours: Temp (24hrs), Av.3 F (36.3 C), Min:95.7 F (35.4 C), Max:98.2 F (36.8 C) Ins/Outs: In: 4449.7 [I.V.:3597.1] Out: 895 [Urine:890] PHYSICAL EXAM: Constitutional: Awake and alert, obese, in no acute distress EENT: PERRLA, EOMI, sclera clear, anicteric, oropharynx clear, no lesions, dry mucous membranes Respiratory: clear to auscultation, no wheezes, rales, or rhonchi Cardiovascular: regular rate and rhythm, normal S1, S2, no murmur noted and 2+ pulses throughout Abdomen: soft, nontender, nondistended, no masses or organomegaly Neuro: Alert to person, place, and time, moving all extremities, sensation is equal intact light touch pain all extremities. Extremities: Range of motion in right ankle has significantly improved from yesterday, peripheral pulses normal, no pedal edema, no clubbing, MEDICATIONS: Scheduled Meds: docusate sodium 100 mg Oral Daily vancomycin 1,500 mg IntraVENous Q12H hydrocortisone sodium succinate PF 50 mg IntraVENous Q12H sodium chloride flush 5-40 mL IntraVENous 2 times per day vancomycin (VANCOCIN) intermittent dosing (placeholder) Other RX Placeholder Continuous Infusions: dextrose 5 % and 0.45 % NaCl 125 mL/hr at 08/17/21 0714 sodium chloride PRN Meds: oxyCODONE-acetaminophen, 1 tablet, Q4H PRN Or oxyCODONE-acetaminophen, 2 tablet, Q4H PRN HYDROmorphone, 0.5 mg, Q2H PRN sodium chloride flush, 5-40 mL, PRN sodium chloride, , PRN acetaminophen, 650 mg, Q6H PRN Or acetaminophen, 650 mg, Q6H PRN SUPPORT DEVICES: [] Ventilator [] BIPAP [] Nasal Cannula [x] Room Air VENT SETTINGS (Comprehensive) (if applicable): Additional Respiratory Assessments Heart Rate: 98 Resp: 12 SpO2: 98 % No results found for: IFIO2, MODE, SETTIDVOL, SETPEEP DATA: Complete Blood Count: Recent Labs 08/15/2133908/16/2140908/17/21417 WBC 16.9* 9.9 8.1 RBC 3.87* 3.30* 3.62* HGB 11.7* 9.9* 10.8* HCT 37.5 32.3* 35.4* MCV 96.9 97.9 97.8 MCH 30.2 30.0 29.8 MCHC 31.2 30.7 30.5 RDW 15.2* 15.1* 14.6* PLT 183 130* 123* MPV 9.9 9.8 9.9 Last 3 Blood Glucose: Recent Labs 08/14/21 0923 08/14/21 1731 08/15/21 0340 08/16/21 0410 08/17/21 041 GLUCOSE 113* 94 78 76 89 PT/INR: Lab Results Component Value Date PROTIME 10.4 08/14/2021 INR 1.0 08/14/2021 PTT: Lab Results Component Value Date APTT 19.6 08/14/2021 Basic Metabolic Profile: Recent Labs 08/15/21 03408/16/21 0410 08/17/21 0418 NA 141 144 142 K 4.1 3.3* 3.9 CL 109* 112* 114* CO2 20 22 15* BUN 12 12 13 CREATININE 0.60 0.42* 0.31* GLUCOSE 78 76 89 Liver Function: Recent Labs 08/14/21 1731 PROT 5.8* LABALBU 2.6* ALT 38* AST 40* ALKPHOS 165* BILITOT 0.60 Magnesium: Lab Results Component Value Date MG 2.0 08/16/2021 Phosphorus: No results found for: PHOS Ionized Calcium: No results found for: CAION Urinalysis: Lab Results Component Value Date NITRU POSITIVE 08/14/2021 COLORU Yellow 08/14/2021 PHUR 6.5 08/14/2021 WBCUA 2 TO 5 08/14/2021 RBCUA 5 TO 10 08/14/2021 BACTERIA 3+ 08/14/2021 SPECGRAV 1.010 08/14/2021 LEUKOCYTESUR NEGATIVE 08/14/2021 UROBILINOGEN Normal 08/14/2021 BILIRUBINUR NEGATIVE 08/14/2021 GLUCOSEU NEGATIVE 08/14/2021 KETUA NEGATIVE 08/14/2021 HgBA1c: No results found for: LABA1C TSH: No results found for: TSH Lactic Acid: Lab Results Component Value Date LACTA 1.8 08/14/2021 Troponin: No results for input(s): TROPONINI in the last 72 hours. Microbiology: Blood Culture: No components found for: CBLOOD, CFUNGUSBL Radiology/Imaging: XR ANKLE RIGHT (MIN 3 VIEWS) Final Result Degenerative changes seen at the ankle with postoperative change and interval removal of the ORIF hardware. VL DUP UPPER EXTREMITY VENOUS RIGHT Final Result XR ANKLE RIGHT (MIN 3 VIEWS) Final Result No acute bony abnormality or radiographic evidence of hardware failure or surrounding lucency. Degenerative changes at the ankle. Bimalleolar soft tissue swelling. Plantar calcaneal spur. IR LUMBAR PUNCTURE FOR DIAGNOSIS Final Result Unsuccessful fluoroscopic-guided lumbar puncture in the [id number] decubitus position, as above. IR ARTHR/ASP/INJ MAJOR JT/BURSA W US Final Result Successful ultrasound and fluoroscopic-guided right shoulder fluid collection aspiration, as above. CT RADIUS ULNA RIGHT W CONTRAST Preliminary Result Very limited exam. Subcutaneous edema about the forearm may reflect cellulitis. No defined fluid collection or soft tissue gas is identified. No acute osseous abnormality. Consolidation at the dependent posterior right lung base. CT LUMBAR SPINE WO CONTRAST Final Result Bilateral sacral wing insufficiency fractures. Degenerative changes as described above. CT THORACIC SPINE WO CONTRAST Final Result Onbj-gl-yvsweimu compression fracture of the T4 vertebral body, of undetermined age. Clinical correlation suggested. Hypoventilatory changes in the posterior aspects of the lungs. CT CERVICAL SPINE WO CONTRAST Final Result No acute abnormality of the cervical spine. Degenerative disc disease of C4-C5, C5-C6 and C6-C7 disc, with osteoarthritis of the right facet joints. CT HEAD WO CONTRAST Final Result No acute intracranial abnormality. If there remains concern for meningitis contrast-enhanced MRI suggested CT TIBIA FIBULA RIGHT W CONTRAST Final Result No evidence of necrotizing fasciitis of the right lower extremity. Mild superficial subcutaneous fatty edema lateral to the right hip and intermittently laterally and posteriorly in the lower leg. Healing fractures at the medial aspect of the left body of pubis and mid right inferior pubic ramus. CT TIBIA FIBULA LEFT W CONTRAST Final Result No evidence of necrotizing fasciitis throughout the visualized left lower extremity. Healing fracture evident at the body of the left pubis and mid right inferior pubic ramus. Questionable very subtle nondisplaced fracture at the anterior aspect of the left acetabulum. This may represent artifact. CT FEMUR RIGHT W CONTRAST Final Result No evidence of necrotizing fasciitis of the right lower extremity. Mild superficial subcutaneous fatty edema lateral to the right hip and intermittently laterally and posteriorly in the lower leg. Healing fractures at the medial aspect of the left body of pubis and mid right inferior pubic ramus. CT FEMUR LEFT W CONTRAST Final Result No evidence of necrotizing fasciitis throughout the visualized left lower extremity. Healing fracture evident at the body of the left pubis and mid right inferior pubic ramus. Questionable very subtle nondisplaced fracture at the anterior aspect of the left acetabulum. This may represent artifact. CT HUMERUS RIGHT W CONTRAST Final Result Addendum 1 of 1 ADDENDUM: Critical results were called by Dr. Mik Cantu to Dr. Mcelroy on 08/15/2021 at 00:07. Final Soft tissue air identified within upper portion of the coracobrachialis muscle which shows surrounding inflammatory change. This raises concern for necrotizing fasciitis although no other soft tissue gas is evident. This could potentially represent intravenous air related to the contrast injection. Inflammatory change/edema otherwise involves deeper subcutaneous fatty tissues anterior, superior and posterior to the shoulder and more superficially down the lateral aspect of the upper arm. CT SHOULDER RIGHT W CONTRAST Final Result Addendum 1 of 1 ADDENDUM: Critical results were called by Dr. Mik Cantu to Dr. Mcelroy on 08/15/2021 at 00:07. Final Soft tissue air identified within upper portion of the coracobrachialis muscle which shows surrounding inflammatory change. This raises concern for necrotizing fasciitis although no other soft tissue gas is evident. This could potentially represent intravenous air related to the contrast injection. Inflammatory change/edema otherwise involves deeper subcutaneous fatty tissues anterior, superior and posterior to the shoulder and more superficially down the lateral aspect of the upper arm. XR SHOULDER RIGHT (MIN 2 VIEWS) Final Result No acute abnormality. XR PELVIS (MIN 3 VIEWS) Final Result Nondisplaced fracture of the left superior and inferior pubic rami at the pubic symphysis with ongoing healing. Nondisplaced right superior and inferior pubic rami fractures with ongoing healing. Nondisplaced bilateral sacral ala fractures with ongoing healing. CT ASP ABS HEMATOMA BULLA CYST (Results Pending) ASSESSMENT: Patient Active Problem List Diagnosis Date Noted Pyogenic arthritis of right shoulder region (HCC) Acute cystitis without hematuria Septicemia (HCC) 08/14/2021 PLAN: WEAN PER PROTOCOL: [] No [] Yes [x] N/A ICU PROPHYLAXIS: Stress ulcer: [] PPI Agent [] [id number] [] Sucralfate [] Other [x] None VTE: [x] Enoxaparin-held [] SQ Heparin [] EPC Cuffs [] Other NUTRITION: [x] NPO [] TF: [] TPN [x] PO HOME MEDS RECONCILED: [x] No [] Yes CONSULTATION NEEDED: [] No [x] Yes FAMILY UPDATED: [x] No [] Yes TRANSFER OUT OF ICU: [x] No [] Yes PLAN/MEDICAL DECISION MAKING: Neurologic: Neuro intact Neuro checks per protocol Sedation: None Pain management: 10 mg Percocet/5mg Percocet q 6 prn, 0.5 mg dilaudid q 3 prn IR performed LP unsuccessful, discussed with infectious disease, no clinical suspicion for meningitis given likely source of infection is right shoulder versus possibly pubic symphysis Cardiovascular: Hemodynamically stable at this time MAP goal > 65mmHg Does not require pressors at this time Tachycardia and HTN 2/2 to pain and sepsis Pulmonary: Maintain oxygen sats >92% Pulmonary toilet CTA of the chest reveals no acute abnormalities of the lungs. GI/Nutrition Glycolax PRN Ulcer Prophylaxis: not indicated Diet:Diet NPO Renal/Fluid/Electrolyte IV Fluids: D50.45NS @ 125 mL/Hr UOP: 0.3 cc/kg/hr overnight, 1 unmeasured occurrence Continue to monitor BUN/Cr 13/0.31 Monitor electrolytes, replace PRN ID WBC: Lab Results Component Value Date WBC 8.1 08/17/2021 History of rheumatoid arthritis on immunosuppressants Tmax: Temp (24hrs), Av.3 F (36.3 C), Min:95.7 F (35.4 C), Max:98.2 F (36.8 C) Concern for Septic Arthritis of the R shoulder and R hip Blood cultures from [place] grew back gram-positive cocci in clusters per report Day 1 s/p right shoulder washout, right ankle hardware removal Fluid collected in OR from shoulder with 40,000 WBC Preoperative note no signs of infection of the ankle, right ankle hardware was removed General surgery consulted for possible necrotizing fascitis, no suspicion On vancomycin, infectious disease consulted Cultures were resent yesterday, no growth thus far Leukocytosis improving, 8.9 Antimicrobials: vancomycin Acute cystitis without hematuria Urine culture negative thus far Rheumatology consulted, started on 50 mg Solu-Cortef every 12 hrs Hematology: Hgb 10.8 (9.9, 11.7) History of RA Plaquenil held She reports not taking it due to nausea and vomiting. Rheumatology consulted Endocrine: glucose controlled - most recent BGL is 89 (76, 78, 94) DVT Prophylaxis lovenox - held Discharge Needs: PT, OT, ST, SW and Case Management if patient requires rehab requesting close to [facility] as that is where her son lives CODE STATUS: Full Code DISPOSITION: [] To remain ICU: [x] OK for out of ICU from Critical Care standpoint Rory Perrin DO Emergency Medicine Resident, PGY2 Critical Care Service 08/17/21 8:42 AM Attending Physician Statement I have discussed the care of Miriam German, including pertinent history and exam findings, withthe resident. I have seen and examined the patient and the lea elements of all parts of the encounter have been performed by me. I agree with the assessment, plan and orders as documented by the resident with additions . MSSA sepsis Septic arthritis - right shoulder post I & d Post right ankle hardware removal RA Plan Cont antibiotics - nafcillin - dc vancomycin Pain control Transfer out of icu Cc sign off Total critical care time caring for this patient with life threatening, unstable organ failure, including direct patient contact, management of life support systems, review of data including imaging and labs, discussions with other team members and physicians at least 30 Min so far today, excludingprocedures. Treatment plan Discussed with nursing staff in detail , all questions answered . Please note that this chart was generated using voice recognition [employer] I/O dictation software. Although every effort was made to ensure the accuracy of this automated tank tester, some errors in tank tester may have occurred. * Tio Bernal DO - 08/17/2021 7:08 AM EDT Orthopedic Progress Note Patient: Miriam German Date of : 1955 66 y.o. female Subjective: Patient seen and examined No complaints or concerns. States pain in shoulder and ankle have significantly improved Some hypertension overnight Pain controlled Denies fever, WAGNER, CP, SOB, N/V, dysuria Urinating on her own. Negative BM/ Positive flatus Has not worked with PT/OT due to late surgery time yesterday Vitals reviewed Objective: Vitals: 08/17/21 0628 BP: (!) 146/82 Pulse: 96 Resp: 15 Temp: SpO2: Gen: NAD, cooperative Cardiovascular: Regular rate Respiratory: Chest symmetric, no accessory muscle use, normal respirations, no audible wheezes MSK: RUE: Dressings on. Diffuse edema to the extremity. Able to tolerate gentle PROM with minimal pain which is significantly improved. Compartments soft. Med/Rad/Ulnar/AIN/PIN motor intact. Axil/MSC/Med/Rad/Ulnar n sensation intact to light touch. Radial pulse 1+. RLE: Dressings on, c,d,i. Minimal tenderness to palpation about the ankle. Minimal pain with AROM which is significantly improved. Compartments soft. EHL/FHL/TA/GSC motor intact. Sensation intact to sural/saph/SPN/DPN distribution. DP/PT pulses 1+. Recent Labs 08/14/21 1802 08/15/21 0340 08/17/21 0418 WBC -- < > 8.1 HGB -- < > 10.8* HCT -- < > 35.4* PLT -- < > 123* INR 1.0 -- -- NA -- < > 142 K -- < > 3.9 BUN -- < > 13 CREATININE -- < > 0.31* GLUCOSE -- < > 89 < > = values in this interval not displayed. Antibiotics: Vancomycin See rec for complete list Impression/plan: 66 y.o. female being seen for: -Right shoulder septic arthritis s/p arthroscopic I&D -Right ankle symptomatic hardware s/p hardware removal -Possible pubic symphysis septic vs inflammatory arthritis -Dressings on. Please maintain -WB status: WBAT RUE/RLE -Pain control per primary team -Antibiotics per infectious disease -Right shoulder Intraoperative cultures NGTD -Patient awaiting IR aspirate of pubic symphysis -DVT ppx: Ok for chemical AC from orthopedic perspective -Aggressive Ice/Elevate for pain/edema control. Ok for compressive dressings to the RUE if continues to have swelling -Encourage Incentive Spirometry use -Encourage PT/OT -Please page ortho with any questions Tio Bernal DO Orthopedic Surgery Resident PGY-1 [place], [place] * Lisa De La Rosa RN - 08/16/2021 10:13 PM EDT Xray done at bedside * Evie Jordan - 08/16/2021 4:35 PM EDT Echo completed at patient bedside. * Eulogio Manzo MD - 08/16/2021 1:20 PM EDT [facility] - Progress Note Today's Date and Time: 08/16/2021, 1:20 PM Impression : Septicemia 08/14/21 BC gram positive cocci clusters x 2. Likely S aureus Rt shoulder septic arthritis with Gram positive cocci in clusters RA on plaquenil Fall June 2021 Pubic symphysis fx-likely related to fall in June 2021 Lumbar fx-likely related to fall in June 2021 Elevated CRP Leukocytosis Fever Hx right ankle hardware placement 1999 & 2007-according to patient. Recommendations: Continue Vancomycin pending finalized cultures Staph aureus growing in blood cultures and synovial joint fluid from right shoulder. Pending OR vs IR 08/16/21 Medical Decision Making/Summary/Discussion:08/16/2021 Infection Control Recommendations [place] Precautions Antimicrobial Stewardship Recommendations Simplification of therapy Targeted therapy PK dosing Coordination of Outpatient Care: Estimated Length of IV antimicrobials:TBD Patient will need Midline Catheter Insertion: TBD Patient will need PICC line Insertion:TBD Patient will need: Home IV , Infusion Center, SNF, LTAC: TBD Patient will need outpatient wound care:TBD Chief complaint/reason for consultation: Concern for septic arthritis History of Present Illness: Miriam German is a 66 y.o.-year-old female who was initially admitted on 08/14/2021. Patient seen at the request of Dr. Martell INITIAL HISTORY: This patient, with a history of RA on plaquenil and a pubic symphysis and lumbar fx s/p fall in June 2021, initially presented to [facility] ED on 08/14/21 with complaints of severe right shoulder pain, neck pain and pelvic/suprapubic pain. Abnormal lab findings included leukocytosis of 17.1, CRP of 249.9, ESR 66. The patient also had a mottled appearance to her skin and cold extremities. She also appeared very dehydrated and her neck was stiff. A CTA of the chest/abd/pelvis was completed to rule out aortic dissection. 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 CT of pubic symphysis showing healing fracture at about 3 weeks, which is likely related to her fall in June. Healing lumbar fx was also noted. Initially, there was concern for a left acetabulum fracture on the initial imaging, but it was likely an artifact per Radiology. She received a fluid bolus and was initiated on Zosyn and Vancomycin. The patient was transferred to [facility] for a higher level of care. Abnormal lab findings at [facility] included: Lactic: 2.8 Pro floyd: 3.47 Alk phos: 187 CRP: 258.6 WBC: 23.3 Abs neutr: 19.1 ESR: 84 Blood cultures from [place] on 08/14/21 came back positive for gram positive cocci clusters X 2. Additional imaging was ordered by Ortho and there was initial concern for necrotizing fasciitis in the right coracobrachialis, but further evaluation by the radiologist indicated no concern for NF. There are soft tissue changes present and edema over brachialis muscles concerning for soft tissue infection. Ortho attempted aspiration of fluid from her right shoulder but it was a dry tap. IR was consulted, and she underwent a right shoulder aspiration with 4 ml of cloudy barbara fluid aspirated.The fluid has Gram positive cocci in clusters. They attempted a LP, but it was unsuccessful as the patient was unable to tolerate the procedure because of positioning. According to the patient, she also has a PMH of orthopedic surgery on her right ankle with hardwareplacement in 1999. She said that her body rejected the hardware in 2007 and it had to be replaced. She feels that the screw in right ankle is coming out again. Imaging of her right ankle is pending. General Surgery think the mottling of her skin may be secondary livedo reticularis associated with rheumatoid arthritis. She stopped taking plaquenil about a week ago as she wasn't feeling well. Rheumatology has been consulted. Infectious Disease was consulted for antibiotic recommendations CURRENT EVALUATION 08/16/2021 TMAX 98.1 F VS stable 3--> 2.5 L NC SpO2: 95-->98% The patient is resistant to let anyone touch her today for evaluation. She is complaining of severe pain everywhere. Generalized mottling has improved. Palpable edema to right shoulder. Plan to go to OR today with Ortho for right shoulder washout and IR for cultures from symphysis pubis and right ankle. Unsure if this will take place as patient has been refusing treatment. CRP increased to 458 but WBC is decreasing. Staph Aureus is growing in synovial fluid aspirate from right shoulder as well as blood cultures. We will continue to follow Labs, X rays reviewed: 08/16/2021 BUN:12-->12 Cr:0.60-->0.42 WBC:17.1-->23.3-->16.9-->9.9 Hb:11.7-->9.9 Plat: 183-->130 CRP: 249.9-->258.6-->457.9 Lactic: 2.7 ESR: 66-->84 Pro-floyd: 3.47 Cultures: Urine: 08/14/21: No bacteria on UA Blood: 08/14/21: Staph aureus x 2 Sputum : Right shoulder aspirate: 08/15/21: Staph aureus MRSA Nares: 08/14/21: Pending Discussed with patient, RN, family. I have personally reviewed the past medical history, past surgical history, medications, social history, and family history, and I have updated the database accordingly. Past Medical History: No past medical history on file. Past Surgical History: No past surgical history on file. Medications: vancomycin 1,500 mg IntraVENous Q12H ceFAZolin 2,000 mg IntraVENous Retirement Benefits Specialist to OR sodium chloride flush 5-40 mL IntraVENous 2 times per day [Held by provider] enoxaparin 40 mg SubCUTAneous Daily vancomycin (VANCOCIN) intermittent dosing (placeholder) Other RX Placeholder Social History: Social History Socioeconomic History Marital status: Single Spouse name: Not on file Number of children: Not on file Years of education: Not on file Highest education level: Not on file Occupational History Not on file Tobacco Use Smoking status: Not on file Smokeless tobacco: Not on file Vaping Use Vaping Use: Never used Substance and Sexual Activity Alcohol use: Not on file Drug use: Not on file Sexual activity: Not on file Other Topics Concern Not on file Social History Narrative Not on file Social Determinants of Health Financial Resource Strain: Difficulty of Paying Living Expenses: Not on file Food Insecurity: Worried About Running Out of Food in the Last Year: Not on file Ran Out of Food in the Last Year: Not on file Transportation Needs: Lack of Transportation (Medical): Not on file Lack of Transportation (Non-Medical): Not on file Physical Activity: Days of Exercise per Week: Not on file Minutes of Exercise per Session: Not on file Stress: Feeling of Stress : Not on file Social Connections: Frequency of Communication with Friends and Family: Not on file Frequency of Social Gatherings with Friends and Family: Not on file Attends Christianity Services: Not on file Active Member of Clubs or Organizations: Not on file Attends Club or Organization Meetings: Not on file Marital Status: Not on file Intimate Partner Violence: Fear of Current or Ex-Partner: Not on file Emotionally Abused: Not on file Physically Abused: Not on file Sexually Abused: Not on file Housing Stability: Unable to Pay for Housing in the Last Year: Not on file Number of Places Lived in the Last Year: Not on file Unstable Housing in the Last Year: Not on file Family History: No family history on file. Allergies: Patient has no known allergies. Review of Systems: Constitutional: Generalized pain improved Head: No headaches Eyes: No double vision or blurry vision. No conjunctival inflammation. ENT: No sore throat or runny nose.. No hearing loss, tinnitus or vertigo. Cardiovascular: No chest pain or palpitations.No shortness of breath. MARSHALL Lung: No shortness of breath or cough. No sputum production Abdomen: No nausea, vomiting, diarrhea, or abdominal pain.. No cramps. Genitourinary: No increased urinary frequency, or dysuria. No hematuria. No suprapubic or CVA pain Musculoskeletal: generalized myalgias Hematologic: No bleeding or bruising. Generalized mottling present Neurologic: No headache, weakness, numbness, or tingling. Integument: Generalized mottling. Psychiatric: No depression. Endocrine: No polyuria, no polydipsia, no polyphagia. Physical Examination : Patient Vitals for the past 8 hrs: BP Temp Temp src Pulse Resp SpO2 08/16/21 1300 121/61 92 14 99 % 08/16/21 1200 (!) 110/55 98.1 F (36.7 C) Oral 94 13 99 % 08/16/21 1100 121/63 96 17 98 % 08/16/21 1000 124/61 97.7 F (36.5 C) Oral 96 13 96 % 08/16/21 0900 122/60 (!) 101 15 97 % 08/16/21 0850 100 15 98 % 08/16/21 0820 20 08/16/21 0800 138/60 98.6 F (37 C) Oral (!) 106 21 99 % 08/16/21 0700 (!) 154/75 (!) 105 24 99 % 08/16/21 0600 (!) 141/64 (!) 107 25 97 % General Appearance: Awake, alert, and in no apparent distress Head: Normocephalic, no trauma Eyes: Pupils equal, round, reactive to light and accommodation; extraocular movements intact; sclera anicteric; conjunctivae pink. No embolic phenomena. ENT: Oropharynx clear, without erythema, exudate, or thrush. No tenderness of sinuses. Mouth/throat: mucosa pink and moist. No lesions. Dentition in good repair. Neck:Supple, without lymphadenopathy. Thyroid normal, No bruits. Pulmonary/Chest: Clear to auscultation, without wheezes, rales, or rhonchi. No dullness to percussion. Cardiovascular: Regular rate and rhythm without murmurs, rubs, or gallops. Abdomen: Soft, tender. Bowel sounds normal. No organomegaly All four Extremities: No cyanosis, clubbing, edema, or effusions. Mottling to skin. Cool extremities. Surgical scarring to right ankle Neurologic: No gross sensory or motor deficits. Skin: cool and dry with good turgor.Mottling. No ulcerations. No open wounds. Medical Decision Making -Laboratory: I have independently reviewed/ordered the following labs: CBC with Differential: Recent Labs 08/15/21 0340 08/16/21 0410 WBC 16.9* 9.9 HGB 11.7* 9.9* HCT 37.5 32.3* PLT 183 130* LYMPHOPCT 5* 5* MONOPCT 1 2 BMP: Recent Labs 08/15/21 0340 08/16/21 0410 NA 141 144 K 4.1 3.3* CL 109* 112* CO2 20 22 BUN 12 12 CREATININE 0.60 0.42* MG -- 2.0 Hepatic Function Panel: Recent Labs 08/14/21 0923 08/14/21 1731 PROT 6.7 5.8* LABALBU 3.6 2.6* BILITOT 0.64 0.60 ALKPHOS 187* 165* ALT 31 38* AST 31 40* No results for input(s): RPR in the last 72 hours. No results for input(s): HIV in the last 72 hours. No results for input(s): BC in the last 72 hours. Lab Results Component Value Date RBC 3.30 08/16/2021 WBC 9.9 08/16/2021 TURBIDITY Clear 08/14/2021 Lab Results Component Value Date CREATININE 0.42 08/16/2021 GLUCOSE 76 08/16/2021 Medical Decision Making-Imaging: XR SHOULDER RIGHT (MIN 2 VIEWS) Result Date: 08/14/2021 EXAMINATION: THREE XRAY VIEWS OF THE RIGHT SHOULDER 08/14/2021 7:13 pm COMPARISON: None. HISTORY: ORDERING SYSTEM PROVIDED HISTORY: effusion TECHNOLOGIST PROVIDED HISTORY: AP, scapular Y, axillary. Thank you. effusion FINDINGS: Glenohumeral joint is normally aligned. No evidence of acute fracture ordislocation. No abnormal periarticular calcifications. AC joint and glenohumeral joint degenerativechanges Visualized lung is unremarkable. No acute abnormality. CT HUMERUS RIGHT W CONTRAST Addendum Date: 08/15/2021 ADDENDUM: Critical results were called by Dr. Mik Cantu to Dr. Mcelroy on 08/15/2021 at 00:07. Result Date: 08/15/2021 EXAMINATION: CT OF THE RIGHT HUMERUS WITH CONTRAST; CT OF THE RIGHT SHOULDER WITH CONTRAST 08/14/2021 9:02 pm TECHNIQUE: CT of the right humerus was performed with the administration of intravenous contrast. Multiplanar reformatted images are provided for review. Automated exposure control, iterative reconstruction, and/or weight based adjustment of the mA/kV was utilized to reduce the radiation dose to as low as reasonably achievable.; CT of the right shoulder was performed with the administration of intravenous contrast. Multiplanar reformatted images are provided for review. Automated exposure control, iterative reconstruction, and/or weight based adjustment of the mA/kV was utilized to reduce the radiation dose to as low as reasonably achievable. COMPARISON: None. HISTORY ORDERING SYSTEM PROVIDED HISTORY: concern for nec fasc TECHNOLOGIST PROVIDED HISTORY: concern for nec fasc FINDINGS: Bones: No evidence of acute fracture or dislocation. No aggressive appearing osseous abnormalityor periostitis. Bone density is normal. Soft Tissue: Mild subcutaneous fatty tissue edema surrounds the superior, anterior and posterior aspects of the shoulder and extends inferiorly down the lateral aspect of the arm. Additionally, there is mild edema within the axilla which may also involve the coracobrachialis muscle. Within the upper portion of the belly of the coracobrachialis muscle, soft tissue air is present. It is localized and no other soft tissue air is identified. There is prominence of the subacromial/subdeltoid bursa posterolaterally. There is enhancement of the capsule of the bursa. Joint: No significant degenerative changes. No osseous erosions. Soft tissue air identified within upper portion of the coracobrachialis muscle which shows surrounding inflammatory change. This raises concern for necrotizing fasciitis although no other soft tissuegas is evident. This could potentially represent intravenous air related to the contrast injection.Inflammatory change/edema otherwise involves deeper subcutaneous fatty tissues anterior, superior and posterior to the shoulder and more superficially down the lateral aspect of the upper arm. CT TIBIA FIBULA LEFT W CONTRAST Result Date: 08/14/2021 EXAMINATION: CT OF THE LEFT FEMUR WITH CONTRAST; CT OF THE LEFT TIBIA AND FIBULA WITH CONTRAST 08/14/2021 9:01 pm TECHNIQUE: CT of the left femur was performed with the administration of intravenous contrast. Multiplanar reformatted images are provided for review. Automated exposure control, iterative reconstruction, and/or weight based adjustment of the mA/kV was utilized to reduce the radiation dose to as low as reasonably achievable.; CT of the left tibia and fibula was performed with the administration of intravenous contrast. Multiplanar reformatted images are provided for review. Automated exposure control, iterative reconstruction, and/or weight based adjustment of the mA/kV was utiliz ed to reduce the radiation dose to as low as reasonably achievable. COMPARISON: None. HISTORY ORDERING SYSTEM PROVIDED HISTORY: concern for nec fasc TECHNOLOGIST PROVIDED HISTORY: concern for nec fasc FINDINGS: Bones: At the medial aspect of body of the left pubis, there is healing fracture with mild surrounding, predominantly anterior, soft tissue swelling. Question of nondisplaced very subtle fracture at the anterior aspect of the acetabulum which may represent artifact. On the right, sclerotic reaction is present at the mid inferior pubic ramus likely representing healing fracture. No displacement. Osseous structures of the femur, tibia/fibula and visualized foot are otherwise unremarkable. Soft Tissue: No evidence of necrotizing fasciitis. There is mild superficial subcutaneous edema at the posterior and lateral aspects of the lower leg extending into the plantar aspect of the hindfoot. Joint: Mild degenerative changes incidentally noted. No evidence of necrotizing fasciitis throughout the visualized left lower extremity. Healing fracture evident at the body of the left pubis and mid right inferior pubic ramus. Questionable very subtle nondisplaced fracture at the anterior aspect of the left acetabulum. This may represent artifact. CT FEMUR LEFT W CONTRAST Result Date: 08/14/2021 EXAMINATION: CT OF THE LEFT FEMUR WITH CONTRAST; CT OF THE LEFT TIBIA AND FIBULA WITH CONTRAST 08/14/2021 9:01 pm TECHNIQUE: CT of the left femur was performed with the administration of intravenous contrast. Multiplanar reformatted images are provided for review. Automated exposure control, iterative reconstruction, and/or weight based adjustment of the mA/kV was utilized to reduce the radiation dose to as low as reasonably achievable.; CT of the left tibia and fibula was performed with the administration of intravenous contrast. Multiplanar reformatted images are provided for review. Automated exposure control, iterative reconstruction, and/or weight based adjustment of the mA/kV was utiliz ed to reduce the radiation dose to as low as reasonably achievable. COMPARISON: None. HISTORY ORDERING SYSTEM PROVIDED HISTORY: concern for nec fasc TECHNOLOGIST PROVIDED HISTORY: concern for nec fasc FINDINGS: Bones: At the medial aspect of body of the left pubis, there is healing fracture with mild surrounding, predominantly anterior, soft tissue swelling. Question of nondisplaced very subtle fracture at the anterior aspect of the acetabulum which may represent artifact. On the right, sclerotic reaction is present at the mid inferior pubic ramus likely representing healing fracture. No displacement. Osseous structures of the femur, tibia/fibula and visualized foot are otherwise unremarkable. Soft Tissue: No evidence of necrotizing fasciitis. There is mild superficial subcutaneous edema at the posterior and lateral aspects of the lower leg extending into the plantar aspect of the hindfoot. Joint: Mild degenerative changes incidentally noted. No evidence of necrotizing fasciitis throughout the visualized left lower extremity. Healing fracture evident at the body of the left pubis and mid right inferior pubic ramus. Questionable very subtle nondisplaced fracture at the anterior aspect of the left acetabulum. This may represent artifact. CT SHOULDER RIGHT W CONTRAST Addendum Date: 08/15/2021 ADDENDUM: Critical results were called by Dr. Mik Cantu to Dr. Mcelroy on 08/15/2021 at 00:07. Result Date: 08/15/2021 EXAMINATION: CT OF THE RIGHT HUMERUS WITH CONTRAST; CT OF THE RIGHT SHOULDER WITH CONTRAST 08/14/2021 9:02 pm TECHNIQUE: CT of the right humerus was performed with the administration of intravenous contrast. Multiplanar reformatted images are provided for review. Automated exposure control, iterative reconstruction, and/or weight based adjustment of the mA/kV was utilized to reduce the radiation dose to as low as reasonably achievable.; CT of the right shoulder was performed with the administration of intravenous contrast. Multiplanar reformatted images are provided for review. Automated exposure control, iterative reconstruction, and/or weight based adjustment of the mA/kV was utilized to reduce the radiation dose to as low as reasonably achievable. COMPARISON: None. HISTORY ORDERING SYSTEM PROVIDED HISTORY: concern for nec fasc TECHNOLOGIST PROVIDED HISTORY: concern for nec fasc FINDINGS: Bones: No evidence of acute fracture or dislocation. No aggressive appearing osseous abnormalityor periostitis. Bone density is normal. Soft Tissue: Mild subcutaneous fatty tissue edema surrounds the superior, anterior and posterior aspects of the shoulder and extends inferiorly down the lateral aspect of the arm. Additionally, there is mild edema within the axilla which may also involve the coracobrachialis muscle. Within the upper portion of the belly of the coracobrachialis muscle, soft tissue air is present. It is localized and no other soft tissue air is identified. There is prominence of the subacromial/subdeltoid bursa posterolaterally. There is enhancement of the capsule of the bursa. Joint: No significant degenerative changes. No osseous erosions. Soft tissue air identified within upper portion of the coracobrachialis muscle which shows surrounding inflammatory change. This raises concern for necrotizing fasciitis although no other soft tissuegas is evident. This could potentially represent intravenous air related to the contrast injection.Inflammatory change/edema otherwise involves deeper subcutaneous fatty tissues anterior, superior and posterior to the shoulder and more superficially down the lateral aspect of the upper arm. XR PELVIS (MIN 3 VIEWS) Result Date: 08/14/2021 EXAMINATION: ONE XRAY VIEW OF THE PELVIS 08/14/2021 7:13 pm COMPARISON: CT performed concurrently. HISTORY: ORDERING SYSTEM PROVIDED HISTORY: previous fractures TECHNOLOGIST PROVIDED HISTORY: AP, inlet, outlet and Judet views (obturator and iliac oblique). Thank you previous fractures FINDINGS: Right femoral central venous catheter terminating in the expected location of the external iliac vein. Nondisplaced fractures of the left superior and inferior pubic rami at the pubic symphysis and right inferior and superior pubic rami with some healing callus formation. Nondisplaced bilateral sacral ala fractures. Contrast distends the urinary bladder and partially obscures oblique views.. Nondisplaced fracture of the left superior and inferior pubic rami at the pubic symphysis with ongoing healing. Nondisplaced right superior and inferior pubic rami fractures with ongoing healing. Nondisplaced bilateral sacral ala fractures with ongoing healing. CT FEMUR RIGHT W CONTRAST Result Date: 08/15/2021 EXAMINATION: CT OF THE RIGHT FEMUR WITH CONTRAST; CT OF THE RIGHT TIBIA AND FIBULA WITH CONTRAST 08/14/2021 9:01 pm TECHNIQUE: CT of the right femur was performed with the administration of intravenous contrast. Multiplanar reformatted images are provided for review. Automated exposure control, itera tive reconstruction, and/or weight based adjustment of the mA/kV was utilized to reduce the radiation dose to as low as reasonably achievable.; CT of the right tibia and fibula was performed with theadministration of intravenous contrast. Multiplanar reformatted images are provided for review. Automated exposure control, iterative reconstruction, and/or weight based adjustment of the mA/kV was utilized to reduce the radiation dose to as low as reasonably achievable. COMPARISON: None. HISTORY ORDERING SYSTEM PROVIDED HISTORY: concern for nec fasc TECHNOLOGIST PROVIDED HISTORY: concern for necfasc FINDINGS: Bones: Healing fractures at the medial body of the left pubis and mid inferior rightpubic ramus. Osseous structures of the entire right lower extremity are otherwise unremarkable. Soft Tissue: No evidence of necrotizing fasciitis. Minor superficial edema in the subcutaneous fatty tissues is present lateral to the right hip and intermittently in the lateral and posterior aspects ofthe lower leg. Soft tissues of the right lower extremity are otherwise unremarkable. Joint: Mild degenerative changes incidentally noted. No evidence of necrotizing fasciitis of the right lower extremity. Mild superficial subcutaneous fatty edema lateral to the right hip and intermittently laterally and posteriorly in the lower leg. Healing fractures at the medial aspect of the left body of pubis and mid right inferior pubic ramus. CT TIBIA FIBULA RIGHT W CONTRAST Result Date: 08/15/2021 EXAMINATION: CT OF THE RIGHT FEMUR WITH CONTRAST; CT OF THE RIGHT TIBIA AND FIBULA WITH CONTRAST 08/14/2021 9:01 pm TECHNIQUE: CT of the right femur was performed with the administration of intravenous contrast. Multiplanar reformatted images are provided for review. Automated exposure control, itera tive reconstruction, and/or weight based adjustment of the mA/kV was utilized to reduce the radiation dose to as low as reasonably achievable.; CT of the right tibia and fibula was performed with theadministration of intravenous contrast. Multiplanar reformatted images are provided for review. Automated exposure control, iterative reconstruction, and/or weight based adjustment of the mA/kV was utilized to reduce the radiation dose to as low as reasonably achievable. COMPARISON: None. HISTORY ORDERING SYSTEM PROVIDED HISTORY: concern for nec fasc TECHNOLOGIST PROVIDED HISTORY: concern for necfasc FINDINGS: Bones: Healing fractures at the medial body of the left pubis and mid inferior rightpubic ramus. Osseous structures of the entire right lower extremity are otherwise unremarkable. Soft Tissue: No evidence of necrotizing fasciitis. Minor superficial edema in the subcutaneous fatty tissues is present lateral to the right hip and intermittently in the lateral and posterior aspects ofthe lower leg. Soft tissues of the right lower extremity are otherwise unremarkable. Joint: Mild degenerative changes incidentally noted. No evidence of necrotizing fasciitis of the right lower extremity. Mild superficial subcutaneous fatty edema lateral to the right hip and intermittently laterally and posteriorly in the lower leg. Healing fractures at the medial aspect of the left body of pubis and mid right inferior pubic ramus. CTA CHEST ABDOMEN PELVIS W CONTRAST Result Date: 08/14/2021 EXAMINATION: CTA OF THE CHEST, ABDOMEN AND PELVIS WITH CONTRAST 08/14/2021 10:22 am: TECHNIQUE: CTA of the chest, abdomen and pelvis was performed after the administration of intravenous contrast. Multiplanar reformatted images are provided for review. MIP images are provided for review. Automated exposure control, iterative reconstruction, and/or weight based adjustment of the mA/kV was utilized to reduce the radiation dose to as low as reasonably achievable. 3D reconstructed images were performed on a separate workstation and provided for review. COMPARISON: None HISTORY: ORDERING SYSTEM PROVIDED HISTORY: r/o dissection TECHNOLOGIST PROVIDED HISTORY: R/o dissection Decision Support Exception - unselect if not a suspected or confirmed emergency medical condition->Emergency Medical Condition (MA) Abdominal pain. Right shoulder pain. History of rheumatoid arthritis. FINDINGS: CTA CHEST: Thoracic aorta: No evidence of thoracic aortic aneurysm or dissection. No acute abnormality of the aorta. Mediastinum: Heart is normal in size. Main pulmonary artery is normal in caliber. No evidence of central pulmonary embolus. No mediastinal or hilar lymphadenopathy. Lungs/Pleura: Lungs are without acute process. There is mild scattered interstitial thickening, likely chronic. No focal consolidation or pulmonary edema. No evidence of pleural effusion or pneumothorax. Soft Tissues/Bones: There is joint effusion and bursal fluid at the right shoulder. Multiple foci of gas are seen within the fluid, which extends into the right axillary region. There is stranding in the right axillary region. There is loss of the intramuscular fat planes about the right shoulder. The right shoulder is incompletely included in the field of view. No osseous destructive change in the imaged portions of the shoulder. There is a mildly depressed superior endplate fracture at T4, which is age indeterminate. CTA ABDOMEN: Abdominal aorta/Branches: Abdominal aorta is normal in caliber. There is mild scattered atherosclerosis. Origins of the celiac, superior mesenteric, renal, and inferior mesenteric arteries are patent and grossly normal in caliber. No evidence of intimal dissection. Organs: Caudate lobe hypertrophy is noted at the liver. Liver is otherwise unremarkable. Gallbladder is surgically absent. No intrahepatic or extrahepatic biliary dilatation. Spleen, pancreas, and adrenal glands are unremarkable. There is symmetric enhancement of the kidneys. No hydronephrosis or perinephric inflammation. There is a 1.7 cm simple cyst in the mid right kidney (no follow-up imaging recommended). GI/Bowel: There is no abnormal bowel distention or pericolonic inflammation. No free intraperitoneal air or fluid. Appendix is not seen. Peritoneum/Retroperitoneum: No retroperitoneal or mesenteric lymphadenopathy. Bones/Soft Tissues: No acute or suspicious osseous abnormality. CTA PELVIS: Aorta/Iliacs: Iliac arteries are patent and normal in caliber. There is a right femoral venous catheter in place. Other: Urinary bladder is within normal limits. Uterus and adnexal structures are grossly unremarkable. There is no pelvic lymphadenopathy. Bones/Soft Tissues: There is focal inflammatory change and soft tissue gas just above the pubic symphysis. There is a vertical nondisplaced fracture of the leftpubic body, which appears subacute. No joint effusion at the hips. There is vertical sclerosis in the bilateral sacral ala, compatible with subacute/chronic nondisplaced bilateral sacral insufficiency fractures. There is a nondisplaced right transverse process fracture at L5 and L4. There is a nondisplaced left transverse process fracture at L5. Lumbar vertebral body heights are preserved. 1. No evidence of aortic aneurysm, intimal dissection, or other acute aortic syndrome. No central pulmonary embolus. 2. No acute pulmonary process or acute process in the abdomen/pelvis. 3. Joint/bursal fluid and gas with surrounding soft tissue edema at the right shoulder, concerning for septic arthritis (assuming no recent intervention). Orthopedic consultation and arthrocentesis are recommended. 4. Focal inflammatory changes and soft tissue gas just above the pubic symphysis with a vertical nondisplaced fracture of the left pubic body, which appears subacute. Possibility of septic arthritis at the pubic symphysis is not excluded. 5. Subacute/chronic vertical insufficiency fractures of the bilateral sacral ala. 6. Nondisplaced fractures of the bilateral L5 and right L4 transverse processes, which are age indeterminate. 7. Age indeterminate mildly depressed superior endplate fracture at T4. 8. Right femoral venous catheter noted. Medical Decision [id number]: Medical Decision Making-Other: Note: Labs, medications, radiologic studies were reviewed with personal review of films Large amounts of data were reviewed Discussed with nursing Staff, production planner scheduler Infection Control and Prevention measures reviewed All prior entries were reviewed Administer medications as ordered Prognosis: Guarded Discharge planning reviewed Follow up as outpatient. Thank you for allowing us to participate in the care of this patient. Please call with questions. Tita Martinez, PHYSICAL DAMAGE APPRAISER - VOCATIONAL ADVISER ATTESTATION: I have discussed the case, including pertinent history and exam findings with the PHYSICAL DAMAGE APPRAISER. I have evaluated the History, physical findings and pictures of the patient and the lea elements of the encounter have been performed by me. I have reviewed the laboratory data, other diagnostic studies and discussed them with the PHYSICAL DAMAGE APPRAISER. I have updated the medical record where necessary. I agree with the assessment, plan and orders as documented by the PHYSICAL DAMAGE APPRAISER. Eulogio Manzo MD. Pager: - Office: * Holli Llanes [facility] - 08/16/2021 11:28 AM EDT [facility] Pharmacokinetic Monitoring Service - Vancomycin Consulting Provider: Dr. Pathak Indication: Septic arthritis, bacteremia Target Concentration: Goal AUC/FABIOLA 400-600 mg*hr/L Day of Therapy: 3 Additional Antimicrobials: None Pertinent Laboratory Values: Wt Readings from Last 1 Encounters: 08/14/21 220 lb 0.3 oz (99.8 kg) Temp Readings from Last 1 Encounters: 08/16/21 97.7 F (36.5 C) (Oral) Estimated Creatinine Clearance: 149 mL/min (A) (based on SCr of 0.42 mg/dL (L)). Recent Labs 08/15/21 0340 08/16/21 0410 CREATININE 0.60 0.42* WBC 16.9* 9.9 Pertinent Cultures: Culture Date Source Results 08/14 Blood x 2 2/ Staph aureus 08/15 Synovial fluid Few GPC in clusters MRSA Nasal Swab: N/A. Non-respiratory infection. Recent vancomycin administrations vancomycin (VANCOCIN) 1000 mg in sodium chloride 0.9% 250 mL IVPB (mg) 1,000 mg New Bag 08/16/21 0832 1,000 mg New Bag 08/15/21 1947 1,000 mg New Bag 0627 vancomycin (VANCOCIN) 1000 mg in dextrose 5% 200 mL IVPB (mg) 1,000 mg New Bag 08/14/21 1829 vancomycin 1000 mg IVPB in 250 mL D5W addavial (mg) 1,000 mg New Bag 08/14/21 1325 Assessment: Date/Time Current Dose Concentration Timing of Concentration (h) AUC 08/16 1000 mg Q12 8.3 12.5h 364 Note: Serum concentrations collected for AUC dosing may appear elevated if collected in close proximity to the dose administered, this is not necessarily an indication of toxicity BP stable, tachycardic, Tmax 101.7F. WBC down to 9.9 from 16.9. Renal function stable with ~0.6 mL/kg/hr urine output. Plan: Current dosing regimen is sub-therapeutic Increase dose to 1500 mg Q12 to achieve AUC of ~540 and trough of ~16 Repeat vancomycin concentration not ordered yet Pharmacy will continue to monitor patient and adjust therapy as indicated Thank you for the consult, Holli Llanes RPH 08/16/2021 11:24 AM * Anuel Hassan PT - 08/16/2021 10:06 AM EDT Images from the original note were not included. Physical Therapy Physical Therapy Cancel Note DATE: 08/16/2021 NAME: Miriam German : 1955 Patient not seen this date for Physical Therapy due to: Other: Per chart review, ortho surgery plan for OR tonight for washout of right shoulder and right ankle. * Stephani Wallace OT - 08/16/2021 10:04 AM EDT Images from the original note were not included. [facility] Occupational Therapy Not Seen Note DATE: 08/16/2021 NAME: Miriam German : 1955 Patient not seen this date for Occupational Therapy due to: Surgery/Procedure: Per orthopedic surgery plan 4 OR tonight for washout of right shoulder and rightankle, Per Chart Next Scheduled Treatment: Ck post op 08/17 * Reyes Thrasher MD - 08/16/2021 9:13 AM EDT INTENSIVE CARE UNIT Resident Physician Progress Note Patient - Miriam German Date of Admission - 08/14/2021 5:10 PM Date of Evaluation - 08/16/2021 Room and Bed Number - 3022/3022-01 Hospital Day - 2 Chief Complaint Patient presents with Shoulder Pain Septic arthritis to R shoulder, possible pelvic sepsis Fall SUBJECTIVE: HISTORY OF PRESENT ILLNESS: This is a 66-year-old female with a history of rheumatoid arthritis on Plaquenil, who presented to the ER for initially abdominal pain and right shoulder pain. Of note patient does have a history of a traumatic fall in June resulting in a nondisplaced fracture of bilateral L L5 and right L4 transverse processes. patient was prescribed to be a poor historian at [facility]. Patient reported that the pain was debilitating both the shoulder and abdomen, worse with movement, and described as sharp. Pain in the right shoulder have been going on for approximately 1 day and is is worse than normal RA pain. She notes that at 3 AM, she developed the lower abdominal pain that is only worsewith movement of the lower extremities and pressing on it. Patient also had mild cold extremities at that time there was concern for possible dissection so CTA chest abdomen pelvis was ordered. Whilethere is no dissection on CT imaging, there is concern for septic arthritis of the right shoulder along with the right pubic symphysis. Patient's orthopedic surgery, Dr. Farmer, came to the ER for evaluation and decided the patient needed to have higher level of care. Patient was sent to [facility] for possible orthopedic surgery and septic management. Patient did have a central line placed in the right femoral vein. Patient did receive a 30 mL/kg bolus along with vancomycin and Zosyn IV. Patient's lab work was concerning for leukocytosis of 17.1, CRP of 249.9, ESR 66, along with UTI. Blood cultures that time were pending. Upon arrival at [facility] ER patient was found to have dry mucous membranes, severe pain along the right-sided shoulder and hip and severe mottling on the bilateral lower extremities along with the left aspect of the upper extremities. Lab work at [facility] ER was concerning for a CRP of 258.6, leukocytosis of 23.3, and ESR of 84. Orthopedic surgery was consulted and further imaging was ob tained of the right shoulder, bilateral femurs, and bilateral tibia and fibula. There is concern for possible necrotizing fasciitis based on air in the coracobrachialis muscle which may be related toIV contrast however did note significant deep tissue edema of the shoulder. General surgery was consulted and time had no further recommendations as they had low clinical suspicion for necrotizing fasciitis. Aspiration of the right shoulder was a dry tap and IR was consulted to do the right hip. 08/15 Blood cultures did grow out gram-positive cocci from [facility]. OVERNIGHT EVENTS: No acute events overnight TODAY: Upon initial examination today patient is screaming in pain. She was switched from Dilaudid to fentanyl yesterday which yesterday was reportedly working however she states fentanyl is no longer working. Patient states she does take home narcotic pain medication, confirmed via [facility], Percocet ordered. Per orthopedic surgery plan 4 OR tonight for washout of right shoulder and right ankle. AWAKE & FOLLOWING COMMANDS: [] No [x] Yes VASOPRESSORS: [] No [] Yes Vasopressor Agent [] Levophed [] Dopamine [] Vasopressin [] Dobutamine [] Phenylephrine [] Epinephrine OBJECTIVE: VITAL SIGNS: Patient Vitals for the past 8 hrs: BP Temp Temp src Pulse Resp SpO2 08/16/21 0820 20 08/16/21 0800 138/60 98.6 F (37 C) Oral (!) 106 21 99 % 08/16/21 0700 (!) 154/75 (!) 105 24 99 % 08/16/21 0600 (!) 141/64 (!) 107 25 97 % 08/16/21 0500 (!) 150/65 (!) 106 22 96 % 08/16/21 0400 132/64 98.3 F (36.8 C) Oral 100 16 98 % 08/16/21 0300 129/68 (!) 101 19 99 % 08/16/21 0200 136/62 98.1 F (36.7 C) Oral (!) 102 17 99 % Last Body weight: Wt Readings from Last 3 Encounters: 08/14/21 220 lb 0.3 oz (99.8 kg) 08/14/21 213 lb (96.6 kg) Body Mass Index : Body mass index is 37.77 kg/m . Tmax over 24 hours: Temp (24hrs), Av.6 F (37.6 C), Min:98.1 F (36.7 C), Max:101.7 F (38.7 C) Ins/Outs: In: 4828.8 [I.V.:4031.6] Out: 1380 [Urine:1380] PHYSICAL EXAM: Constitutional: Awake and alert, obese, in severe distress secondary to pain, yelling out EENT: PERRLA, EOMI, sclera clear, anicteric, oropharynx clear, no lesions, dry mucous membranes Neck: Positive jolt test, negative Kernig's and Brudzinski's sign, symmetrical, trachea midline, noadenopathy, thyroid symmetric, no jvd Respiratory: clear to auscultation, no wheezes, rales, or rhonchi Cardiovascular: regular rate and rhythm, normal S1, S2, no murmur noted and 2+ pulses throughout Abdomen: soft, nontender, nondistended, no masses or organomegaly Neuro: Alert to person, place, and time, moving all extremities, sensation is equal intact light touch pain all extremities. Extremities: peripheral pulses normal, no pedal edema, no clubbing, but bilateral lower extremitieshave livedo reticularis MEDICATIONS: Scheduled Meds: vancomycin 1,000 mg IntraVENous Q12H ceFAZolin 2,000 mg IntraVENous Retirement Benefits Specialist to OR sodium chloride flush 5-40 mL IntraVENous 2 times per day [Held by provider] enoxaparin 40 mg SubCUTAneous Daily vancomycin (VANCOCIN) intermittent dosing (placeholder) Other RX Placeholder Continuous Infusions: sodium chloride sodium chloride Stopped (08/16/21 0832) PRN Meds: HYDROmorphone, 0.5 mg, Q2H PRN oxyCODONE-acetaminophen, 2 tablet, Q6H PRN sodium chloride flush, 5-40 mL, PRN sodium chloride, , PRN acetaminophen, 650 mg, Q6H PRN Or acetaminophen, 650 mg, Q6H PRN SUPPORT DEVICES: [] Ventilator [] BIPAP [] Nasal Cannula [x] Room Air VENT SETTINGS (Comprehensive) (if applicable): Additional Respiratory Assessments Heart Rate: (!) 106 Resp: 20 SpO2: 99 % No results found for: IFIO2, MODE, SETTIDVOL, SETPEEP DATA: Complete Blood Count: Recent Labs 08/14/21 0923 08/14/21 0923 08/14/21 1731 08/15/21 0340 08/16/21 0410 WBC 17.1* < > 23.3* 16.9* 9.9 RBC 4.52 < > 4.15 3.87* 3.30* HGB 13.5 < > 12.4 11.7* 9.9* HCT 43.8 < > 40.4 37.5 32.3* MCV 96.9 < > 97.3 96.9 97.9 MCH 29.9 < > 29.9 30.2 30.0 MCHC 30.8 < > 30.7 31.2 30.7 RDW 14.8* < > 15.0* 15.2* 15.1* PLT 259 < > See Reflexed IPF Result 183 130* MPV 9.5 -- -- 9.9 9.8 < > = values in this interval not displayed. Last 3 Blood Glucose: Recent Labs 08/14/21 0923 08/14/21 1731 08/15/21 0340 08/16/21 0410 GLUCOSE 113* 94 78 76 PT/INR: Lab Results Component Value Date PROTIME 10.4 08/14/2021 INR 1.0 08/14/2021 PTT: Lab Results Component Value Date APTT 19.6 08/14/2021 Basic Metabolic Profile: Recent Labs 08/14/21173008/15/21 0340 08/16/21 0410 NA 140 141 144 K 4.1 4.1 3.3* CL 104 109* 112* CO2 22 20 22 BUN 11 12 12 CREATININE 0.62 0.60 0.42* GLUCOSE 94 78 76 Liver Function: Recent Labs 08/14/211730 PROT 5.8* LABALBU 2.6* ALT 38* AST 40* ALKPHOS 165* BILITOT 0.60 Magnesium: Lab Results Component Value Date MG 2.0 08/16/2021 Phosphorus: No results found for: PHOS Ionized Calcium: No results found for: CAION Urinalysis: Lab Results Component Value Date NITRU POSITIVE 08/14/2021 COLORU Yellow 08/14/2021 PHUR 6.5 08/14/2021 WBCUA 2 TO 5 08/14/2021 RBCUA 5 TO 10 08/14/2021 BACTERIA 3+ 08/14/2021 SPECGRAV 1.010 08/14/2021 LEUKOCYTESUR NEGATIVE 08/14/2021 UROBILINOGEN Normal 08/14/2021 BILIRUBINUR NEGATIVE 08/14/2021 GLUCOSEU NEGATIVE 08/14/2021 KETUA NEGATIVE 08/14/2021 HgBA1c: No results found for: LABA1C TSH: No results found for: TSH Lactic Acid: Lab Results Component Value Date LACTA 1.8 08/14/2021 Troponin: No results for input(s): TROPONINI in the last 72 hours. Microbiology: Blood Culture: No components found for: CBLOOD, CFUNGUSBL Radiology/Imaging: VL DUP UPPER EXTREMITY VENOUS RIGHT Final Result XR ANKLE RIGHT (MIN 3 VIEWS) Final Result No acute bony abnormality or radiographic evidence of hardware failure or surrounding lucency. Degenerative changes at the ankle. Bimalleolar soft tissue swelling. Plantar calcaneal spur. IR LUMBAR PUNCTURE FOR DIAGNOSIS Final Result Unsuccessful fluoroscopic-guided lumbar puncture in the [id number] decubitus position, as above. IR ARTHR/ASP/INJ MAJOR JT/BURSA W US Final Result Successful ultrasound and fluoroscopic-guided right shoulder fluid collection aspiration, as above. CT RADIUS ULNA RIGHT W CONTRAST Preliminary Result Very limited exam. Subcutaneous edema about the forearm may reflect cellulitis. No defined fluid collection or soft tissue gas is identified. No acute osseous abnormality. Consolidation at the dependent posterior right lung base. CT LUMBAR SPINE WO CONTRAST Final Result Bilateral sacral wing insufficiency fractures. Degenerative changes as described above. CT THORACIC SPINE WO CONTRAST Final Result [id number] compression fracture of the T4 vertebral body, of undetermined age. Clinical correlation suggested. Hypoventilatory changes in the posterior aspects of the lungs. CT CERVICAL SPINE WO CONTRAST Final Result No acute abnormality of the cervical spine. Degenerative disc disease of C4-C5, C5-C6 and C6-C7 disc, with osteoarthritis of the right facet joints. CT HEAD WO CONTRAST Final Result No acute intracranial abnormality. If there remains concern for meningitis contrast-enhanced MRI suggested CT TIBIA FIBULA RIGHT W CONTRAST Final Result No evidence of necrotizing fasciitis of the right lower extremity. Mild superficial subcutaneous fatty edema lateral to the right hip and intermittently laterally and posteriorly in the lower leg. Healing fractures at the medial aspect of the left body of pubis and mid right inferior pubic ramus. CT TIBIA FIBULA LEFT W CONTRAST Final Result No evidence of necrotizing fasciitis throughout the visualized left lower extremity. Healing fracture evident at the body of the left pubis and mid right inferior pubic ramus. Questionable very subtle nondisplaced fracture at the anterior aspect of the left acetabulum. This may represent artifact. CT FEMUR RIGHT W CONTRAST Final Result No evidence of necrotizing fasciitis of the right lower extremity. Mild superficial subcutaneous fatty edema lateral to the right hip and intermittently laterally and posteriorly in the lower leg. Healing fractures at the medial aspect of the left body of pubis and mid right inferior pubic ramus. CT FEMUR LEFT W CONTRAST Final Result No evidence of necrotizing fasciitis throughout the visualized left lower extremity. Healing fracture evident at the body of the left pubis and mid right inferior pubic ramus. Questionable very subtle nondisplaced fracture at the anterior aspect of the left acetabulum. This may represent artifact. CT HUMERUS RIGHT W CONTRAST Final Result Addendum 1 of 1 ADDENDUM: Critical results were called by Dr. Mik Cantu to Dr. Mcelroy on 08/15/2021 at 00:07. Final Soft tissue air identified within upper portion of the coracobrachialis muscle which shows surrounding inflammatory change. This raises concern for necrotizing fasciitis although no other soft tissue gas is evident. This could potentially represent intravenous air related to the contrast injection. Inflammatory change/edema otherwise involves deeper subcutaneous fatty tissues anterior, superior and posterior to the shoulder and more superficially down the lateral aspect of the upper arm. CT SHOULDER RIGHT W CONTRAST Final Result Addendum 1 of 1 ADDENDUM: Critical results were called by Dr. Mik Cantu to Dr. Mcelroy on 08/15/2021 at 00:07. Final Soft tissue air identified within upper portion of the coracobrachialis muscle which shows surrounding inflammatory change. This raises concern for necrotizing fasciitis although no other soft tissue gas is evident. This could potentially represent intravenous air related to the contrast injection. Inflammatory change/edema otherwise involves deeper subcutaneous fatty tissues anterior, superior and posterior to the shoulder and more superficially down the lateral aspect of the upper arm. XR SHOULDER RIGHT (MIN 2 VIEWS) Final Result No acute abnormality. XR PELVIS (MIN 3 VIEWS) Final Result Nondisplaced fracture of the left superior and inferior pubic rami at the pubic symphysis with ongoing healing. Nondisplaced right superior and inferior pubic rami fractures with ongoing healing. Nondisplaced bilateral sacral ala fractures with ongoing healing. IR ASP/INJ RENAL CYST/PELVIS PERCUTANEOUS (Results Pending) ASSESSMENT: Patient Active Problem List Diagnosis Date Noted Pyogenic arthritis of right shoulder region (HCC) Acute cystitis without hematuria Septicemia (HCC) 08/14/2021 PLAN: WEAN PER PROTOCOL: [] No [] Yes [x] N/A ICU PROPHYLAXIS: Stress ulcer: [] PPI Agent [] [id number] [] Sucralfate [] Other [x] None VTE: [x] Enoxaparin-held [] SQ Heparin [] EPC Cuffs [] Other NUTRITION: [x] NPO [] TF: [] TPN [x] PO HOME MEDS RECONCILED: [x] No [] Yes CONSULTATION NEEDED: [] No [x] Yes FAMILY UPDATED: [x] No [] Yes TRANSFER OUT OF ICU: [x] No [] Yes PLAN/MEDICAL DECISION MAKING: Neurologic: Neuro intact Neuro checks per protocol Sedation: None Pain management: 10 mg Percocet q 6 prn, 0.5 mg dilaudid q 3 prn IR performed LP unsuccessful, will discuss with ID if LP is needed Cardiovascular: Hemodynamically stable at this time MAP goal > 65mmHg Does not require pressors at this time Tachycardia and HTN 2/2 to pain and sepsis Pulmonary: Maintain oxygen sats >92% Pulmonary toilet CTA of the chest reveals no acute abnormalities of the lungs. GI/Nutrition Glycolax PRN Ulcer Prophylaxis: not indicated Diet:Diet NPO Renal/Fluid/Electrolyte IV Fluids: 0.9NS @ 150 mL/Hr UOP: 0.6 cc/kg/hr overnight Urine output improved over the last 24 hours, 1.4 L BUN/Cr Monitor electrolytes, replace PRN ID WBC: Lab Results Component Value Date WBC 9.9 08/16/2021 History of rheumatoid arthritis on immunosuppressants Tmax: Temp (24hrs), Av.6 F (37.6 C), Min:98.1 F (36.7 C), Max:101.7 F (38.7 C) Concern for Septic Arthritis of the R shoulder and R hip Blood cultures from [place] grew back gram-positive cocci in clusters per report Orthopedic surgery consulted for possible septic arthritis Tentative plan for OR today for washout Right shoulder with 21,000 WBCs, awaiting cultures Awaiting IR for right ankle, history of right ankle hardware General surgery consulted for possible necrotizing fascitis They have no suspicion at this time for it On vancomycin, infectious disease consulted CRP 457 (258.6) Leukocytosis improving, 9.9 Pro-Floyd of [address] CT of the extremities does reveal air in the right coracobrachialis concerning for possible necrotizing fasciitis versus air from venous injection along with edema of the deeper subcutaneous fat around the right shoulder concerning for septic arthritis. Antimicrobials: vancomycin and Zosyn Acute cystitis without hematuria Await cultures Continue Abx Hematology: Hgb 9.9 (11.7, 12.4) History of RA Plaquenil held She reports not taking it due to nausea and vomiting. Awaiting rheumatology Endocrine: glucose controlled - most recent BGL is 76 (78, 94, 113) DVT Prophylaxis lovenox - held Discharge Needs: PT, OT, ST, SW and Case Management if patient requires rehab requesting close to [facility] as that is where her son lives CODE STATUS: Full Code DISPOSITION: [x] To remain ICU: [] OK for out of ICU from Critical Care standpoint Rory Perrin DO Emergency Medicine Resident, PGY2 Critical Care Service 08/16/21 9:13 AM Attending Physician Statement I have discussed the care of Miriam German, including pertinent history and exam findings, withthe resident. I have seen and examined the patient and the lea elements of all parts of the encounter have been performed by me. I agree with the assessment, plan and orders as documented by the resident with additions . MSSA sepsis Septic arthritis D/w ID no indication for LP Or for wash out of right shoulder Cont vancomycin Total critical care time caring for this patient with life threatening, unstable organ failure, including direct patient contact, management of life support systems, review of data including imaging and labs, discussions with other team members and physicians at least 30 Min so far today, excludingprocedures. Treatment plan Discussed with nursing staff in detail , all questions answered . Please note that this chart was generated using voice recognition [employer] dictation software. Although every effort was made to ensure the accuracy of this automated tank tester, some errors in tank tester may have occurred. * Earnest Gooden RN - 08/15/2021 11:44 AM EDT Patient to IR with RN, assisted to table in supine position. Dr. Siva CARTAGENA/VIVEK RTs at bedside. Site prepped and draped for right shoulder aspirate. Access obtained and scant amount serosang fluid obtained. Specimens collected and to be sent to lab by science writer. Access removed and band aid placed to site. Patient assisted to left side, site prepped and draped for LP. Unable to obtained access for LP. Patient also unable to lay in prone position. Assisted back to bed and patient transported back to room with primary RN. * Stephani Wallace OT - 08/15/2021 9:53 AM EDT Images from the original note were not included. [facility] Occupational Therapy Not Seen Note DATE: 08/15/2021 NAME: Miriam German : 1955 Patient not seen this date for Occupational Therapy due to: Surgery/Procedure: IR asp of right shoulder and pubic symphysis per chart Next Scheduled Treatment: Ck in pm or 08/16 * Gregg Barrett DO - 08/15/2021 7:13 AM EDT Images from the original note were not included. PROGRESS NOTE PATIENT NAME: Miriam German DATE: 08/15/2021 SURGEON: Dr. 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 Will sign off. Please callor message with any questions or concerns SUBJECTIVE Miriam German was seen and examined this morning. Afebrile, tachycardic with MAP greater than 62 overnight. Patient has pain everywhere. No bowel movement, minimal urine output. OBJECTIVE VITALS: Temp: Temp: 98.2 F (36.8 C)Temp Av.7 F (37.1 C) Min: 98.2 F (36.8 C) Max: 100.9 F (38.3 C) BP Systolic (24hrs), Av , Min:72 , Max:204 Diastolic (24hrs), Av, Min:36, Max:111 Pulse Pulse Av.6 Min: 107 Max: 132 Resp Resp Av.7 Min: 13 Max: 31 Pulse ox SpO2 Av.4 % Min: 90 % Max: 98 % GENERAL: appears uncomfortable, alert, cooperative NEURO: CNII-XII grossly intact; moving all extremities though limited due to pain LUNGS: normal effort; symmetric rise and fall of chest wall, 3L NC HEART: Tachycardic with regular rhythm ABDOMEN: soft, nondistended, tender to palpation diffusely; no guarding, rebound or rigidity EXTREMITY: no cyanosis, clubbing; pain with palpation everywhere SKIN: Diffuse bilateral lower extremity blanchable ecchymosis/purpura from thighs down to the knees. I/O last 3 completed shifts: In: 1000.7 [I.V.:800.7; IV Piggyback:200] Out: 150 [Urine:150] Drain/tube output: In: 1000.7 [I.V.:800.7] Out: 150 [Urine:150] LAB: CBC: Recent Labs 08/14/2192208/14/21173008/15/21 0340 WBC 17.1* 23.3* 16.9* HGB 13.5 12.4 11.7* HCT 43.8 40.4 37.5 MCV 96.9 97.3 96.9 PLT 259 See Reflexed IPF Result 183 BMP: Recent Labs 08/14/2192208/14/21173008/15/21 0340 NA 140 140 141 K 4.3 4.1 4.1 CL 101 104 109* CO2 27 22 20 BUN 12 11 12 CREATININE 0.55 0.62 0.60 GLUCOSE 113* 94 78 COAGS: Recent Labs 08/14/2192208/14/[id number]/[id number]/[id number] APTT -- -- 19.6* PROT 6.7 5.8* -- INR 1.2 -- 1.0 RADIOLOGY: XR SHOULDER RIGHT (MIN 2 VIEWS) Result Date: 08/14/2021 EXAMINATION: THREE XRAY VIEWS OF THE RIGHT SHOULDER 08/14/2021 7:13 pm COMPARISON: None. HISTORY: ORDERING SYSTEM PROVIDED HISTORY: effusion TECHNOLOGIST PROVIDED HISTORY: AP, scapular Y, axillary. Thank you. effusion FINDINGS: Glenohumeral joint is normally aligned. No evidence of acute fracture ordislocation. No abnormal periarticular calcifications. AC joint and glenohumeral joint degenerativechanges Visualized lung is unremarkable. No acute abnormality. CT HUMERUS RIGHT W CONTRAST Addendum Date: 08/15/2021 ADDENDUM: Critical results were called by Dr. Mik Cantu to Dr. Mcelroy on 08/15/2021 at 00:07. Result Date: 08/15/2021 EXAMINATION: CT OF THE RIGHT HUMERUS WITH CONTRAST; CT OF THE RIGHT SHOULDER WITH CONTRAST 08/14/2021 9:02 pm TECHNIQUE: CT of the right humerus was performed with the administration of intravenous contrast. Multiplanar reformatted images are provided for review. Automated exposure control, iterative reconstruction, and/or weight based adjustment of the mA/kV was utilized to reduce the radiation dose to as low as reasonably achievable.; CT of the right shoulder was performed with the administration of intravenous contrast. Multiplanar reformatted images are provided for review. Automated exposure control, iterative reconstruction, and/or weight based adjustment of the mA/kV was utilized to reduce the radiation dose to as low as reasonably achievable. COMPARISON: None. HISTORY ORDERING SYSTEM PROVIDED HISTORY: concern for nec fasc TECHNOLOGIST PROVIDED HISTORY: concern for nec fasc FINDINGS: Bones: No evidence of acute fracture or dislocation. No aggressive appearing osseous abnormalityor periostitis. Bone density is normal. Soft Tissue: Mild subcutaneous fatty tissue edema surroundsthe superior, anterior and posterior aspects of the shoulder and extends inferiorly down the lateral aspect of the arm. Additionally, there is mild edema within the axilla which may also involve the coracobrachialis muscle. Within the upper portion of the belly of the coracobrachialis muscle, soft tissue air is present. It is localized and no other soft tissue air is identified. There is prominence of the subacromial/subdeltoid bursa posterolaterally. There is enhancement of the capsule of the bursa. Joint: No significant degenerative changes. No osseous erosions. Soft tissue air identified within upper portion of the coracobrachialis muscle which shows surrounding inflammatory change. This raises concern for necrotizing fasciitis although no other soft tissuegas is evident. This could potentially represent intravenous air related to the contrast injection.Inflammatory change/edema otherwise involves deeper subcutaneous fatty tissues anterior, superior and posterior to the shoulder and more superficially down the lateral aspect of the upper arm. CT TIBIA FIBULA LEFT W CONTRAST Result Date: 08/14/2021 EXAMINATION: CT OF THE LEFT FEMUR WITH CONTRAST; CT OF THE LEFT TIBIA AND FIBULA WITH CONTRAST 08/14/2021 9:01 pm TECHNIQUE: CT of the left femur was performed with the administration of intravenous contrast. Multiplanar reformatted images are provided for review. Automated exposure control, iterative reconstruction, and/or weight based adjustment of the mA/kV was utilized to reduce the radiation dose to as low as reasonably achievable.; CT of the left tibia and fibula was performed with the administration of intravenous contrast. Multiplanar reformatted images are provided for review. Automated exposure control, iterative reconstruction, and/or weight based adjustment of the mA/kV was utiliz ed to reduce the radiation dose to as low as reasonably achievable. COMPARISON: None. HISTORY ORDERING SYSTEM PROVIDED HISTORY: concern for nec fasc TECHNOLOGIST PROVIDED HISTORY: concern for nec fasc FINDINGS: Bones: At the medial aspect of body of the left pubis, there is healing fracture with mild surrounding, predominantly anterior, soft tissue swelling. Question of nondisplaced very subtle fracture at the anterior aspect of the acetabulum which may represent artifact. On the right, sclerotic reaction is present at the mid inferior pubic ramus likely representing healing fracture. No displacement. Osseous structures of the femur, tibia/fibula and visualized foot are otherwise unremarkable. Soft Tissue: No evidence of necrotizing fasciitis. There is mild superficial subcutaneous edema at the posterior and lateral aspects of the lower leg extending into the plantar aspect of the hindfoot. Joint: Mild degenerative changes incidentally noted. No evidence of necrotizing fasciitis throughout the visualized left lower extremity. Healing fracture evident at the body of the left pubis and mid right inferior pubic ramus. Questionable very subtle nondisplaced fracture at the anterior aspect of the left acetabulum. This may represent artifact. CT FEMUR LEFT W CONTRAST Result Date: 08/14/2021 EXAMINATION: CT OF THE LEFT FEMUR WITH CONTRAST; CT OF THE LEFT TIBIA AND FIBULA WITH CONTRAST 08/14/2021 9:01 pm TECHNIQUE: CT of the left femur was performed with the administration of intravenous contrast. Multiplanar reformatted images are provided for review. Automated exposure control, iterative reconstruction, and/or weight based adjustment of the mA/kV was utilized to reduce the radiation dose to as low as reasonably achievable.; CT of the left tibia and fibula was performed with the administration of intravenous contrast. Multiplanar reformatted images are provided for review. Automated exposure control, iterative reconstruction, and/or weight based adjustment of the mA/kV was utiliz ed to reduce the radiation dose to as low as reasonably achievable. COMPARISON: None. HISTORY ORDERING SYSTEM PROVIDED HISTORY: concern for nec fasc TECHNOLOGIST PROVIDED HISTORY: concern for nec fasc FINDINGS: Bones: At the medial aspect of body of the left pubis, there is healing fracture with mild surrounding, predominantly anterior, soft tissue swelling. Question of nondisplaced very subtle fracture at the anterior aspect of the acetabulum which may represent artifact. On the right, sclerotic reaction is present at the mid inferior pubic ramus likely representing healing fracture. No displacement. Osseous structures of the femur, tibia/fibula and visualized foot are otherwise unremarkable. Soft Tissue: No evidence of necrotizing fasciitis. There is mild superficial subcutaneous edema at the posterior and lateral aspects of the lower leg extending into the plantar aspect of the hindfoot. Joint: Mild degenerative changes incidentally noted. No evidence of necrotizing fasciitis throughout the visualized left lower extremity. Healing fracture evident at the body of the left pubis and mid right inferior pubic ramus. Questionable very subtle nondisplaced fracture at the anterior aspect of the left acetabulum. This may represent artifact. CT SHOULDER RIGHT W CONTRAST Addendum Date: 08/15/2021 ADDENDUM: Critical results were called by Dr. Mik Cantu to Dr. Mcelroy on 08/15/2021 at 00:07. Result Date: 08/15/2021 EXAMINATION: CT OF THE RIGHT HUMERUS WITH CONTRAST; CT OF THE RIGHT SHOULDER WITH CONTRAST 08/14/2021 9:02 pm TECHNIQUE: CT of the right humerus was performed with the administration of intravenous contrast. Multiplanar reformatted images are provided for review. Automated exposure control, iterative reconstruction, and/or weight based adjustment of the mA/kV was utilized to reduce the radiation dose to as low as reasonably achievable.; CT of the right shoulder was performed with the administration of intravenous contrast. Multiplanar reformatted images are provided for review. Automated exposure control, iterative reconstruction, and/or weight based adjustment of the mA/kV was utilized to reduce the radiation dose to as low as reasonably achievable. COMPARISON: None. HISTORY ORDERING SYSTEM PROVIDED HISTORY: concern for nec fasc TECHNOLOGIST PROVIDED HISTORY: concern for nec fasc FINDINGS: Bones: No evidence of acute fracture or dislocation. No aggressive appearing osseous abnormalityor periostitis. Bone density is normal. Soft Tissue: Mild subcutaneous fatty tissue edema surroundsthe superior, anterior and posterior aspects of the shoulder and extends inferiorly down the lateral aspect of the arm. Additionally, there is mild edema within the axilla which may also involve the coracobrachialis muscle. Within the upper portion of the belly of the coracobrachialis muscle, soft tissue air is present. It is localized and no other soft tissue air is identified. There is prominence of the subacromial/subdeltoid bursa posterolaterally. There is enhancement of the capsule of the bursa. Joint: No significant degenerative changes. No osseous erosions. Soft tissue air identified within upper portion of the coracobrachialis muscle which shows surrounding inflammatory change. This raises concern for necrotizing fasciitis although no other soft tissuegas is evident. This could potentially represent intravenous air related to the contrast injection.Inflammatory change/edema otherwise involves deeper subcutaneous fatty tissues anterior, superior and posterior to the shoulder and more superficially down the lateral aspect of the upper arm. XR PELVIS (MIN 3 VIEWS) Result Date: 08/14/2021 EXAMINATION: ONE XRAY VIEW OF THE PELVIS 08/14/2021 7:13 pm COMPARISON: CT performed concurrently. HISTORY: ORDERING SYSTEM PROVIDED HISTORY: previous fractures TECHNOLOGIST PROVIDED HISTORY: AP, inlet, outlet and Judet views (obturator and iliac oblique). Thank you previous fractures FINDINGS: Right femoral central venous catheter terminating in the expected location of the external iliac vein. Nondisplaced fractures of the left superior and inferior pubic rami at the pubic symphysis and right inferior and superior pubic rami with some healing callus formation. Nondisplaced bilateral sacral ala fractures. Contrast distends the urinary bladder and partially obscures oblique views.. Nondisplaced fracture of the left superior and inferior pubic rami at the pubic symphysis with ongoing healing. Nondisplaced right superior and inferior pubic rami fractures with ongoing healing. Nondisplaced bilateral sacral ala fractures with ongoing healing. CT FEMUR RIGHT W CONTRAST Result Date: 08/15/2021 EXAMINATION: CT OF THE RIGHT FEMUR WITH CONTRAST; CT OF THE RIGHT TIBIA AND FIBULA WITH CONTRAST 08/14/2021 9:01 pm TECHNIQUE: CT of the right femur was performed with the administration of intravenous contrast. Multiplanar reformatted images are provided for review. Automated exposure control, itera tive reconstruction, and/or weight based adjustment of the mA/kV was utilized to reduce the radiation dose to as low as reasonably achievable.; CT of the right tibia and fibula was performed with theadministration of intravenous contrast. Multiplanar reformatted images are provided for review. Automated exposure control, iterative reconstruction, and/or weight based adjustment of the mA/kV was utilized to reduce the radiation dose to as low as reasonably achievable. COMPARISON: None. HISTORY ORDERING SYSTEM PROVIDED HISTORY: concern for nec fasc TECHNOLOGIST PROVIDED HISTORY: concern for necfasc FINDINGS: Bones: Healing fractures at the medial body of the left pubis and mid inferior rightpubic ramus. Osseous structures of the entire right lower extremity are otherwise unremarkable. Soft Tissue: No evidence of necrotizing fasciitis. Minor superficial edema in the subcutaneous fatty tissues is present lateral to the right hip and intermittently in the lateral and posterior aspects ofthe lower leg. Soft tissues of the right lower extremity are otherwise unremarkable. Joint: Mild degenerative changes incidentally noted. No evidence of necrotizing fasciitis of the right lower extremity. Mild superficial subcutaneous fatty edema lateral to the right hip and intermittently laterally and posteriorly in the lower leg. Healing fractures at the medial aspect of the left body of pubis and mid right inferior pubic ramus. CT TIBIA FIBULA RIGHT W CONTRAST Result Date: 08/15/2021 EXAMINATION: CT OF THE RIGHT FEMUR WITH CONTRAST; CT OF THE RIGHT TIBIA AND FIBULA WITH CONTRAST 08/14/2021 9:01 pm TECHNIQUE: CT of the right femur was performed with the administration of intravenous contrast. Multiplanar reformatted images are provided for review. Automated exposure control, itera tive reconstruction, and/or weight based adjustment of the mA/kV was utilized to reduce the radiation dose to as low as reasonably achievable.; CT of the right tibia and fibula was performed with theadministration of intravenous contrast. Multiplanar reformatted images are provided for review. Automated exposure control, iterative reconstruction, and/or weight based adjustment of the mA/kV was utilized to reduce the radiation dose to as low as reasonably achievable. COMPARISON: None. HISTORY ORDERING SYSTEM PROVIDED HISTORY: concern for nec fasc TECHNOLOGIST PROVIDED HISTORY: concern for necfasc FINDINGS: Bones: Healing fractures at the medial body of the left pubis and mid inferior rightpubic ramus. Osseous structures of the entire right lower extremity are otherwise unremarkable. Soft Tissue: No evidence of necrotizing fasciitis. Minor superficial edema in the subcutaneous fatty tissues is present lateral to the right hip and intermittently in the lateral and posterior aspects ofthe lower leg. Soft tissues of the right lower extremity are otherwise unremarkable. Joint: Mild degenerative changes incidentally noted. No evidence of necrotizing fasciitis of the right lower extremity. Mild superficial subcutaneous fatty edema lateral to the right hip and intermittently laterally and posteriorly in the lower leg. Healing fractures at the medial aspect of the left body of pubis and mid right inferior pubic ramus. CTA CHEST ABDOMEN PELVIS W CONTRAST Result Date: 08/14/2021 EXAMINATION: CTA OF THE CHEST, ABDOMEN AND PELVIS WITH CONTRAST 08/14/2021 10:22 am: TECHNIQUE: CTA of the chest, abdomen and pelvis was performed after the administration of intravenous contrast. Multiplanar reformatted images are provided for review. MIP images are provided for review. Automated exposure control, iterative reconstruction, and/or weight based adjustment of the mA/kV was utilized to reduce the radiation dose to as low as reasonably achievable. 3D reconstructed images were performed on a separate workstation and provided for review. COMPARISON: None HISTORY: ORDERING SYSTEM PROVIDED HISTORY: r/o dissection TECHNOLOGIST PROVIDED HISTORY: R/o dissection Decision Support Exception - unselect if not a suspected or confirmed emergency medical condition->Emergency Medical Condition (MA) Abdominal pain. Right shoulder pain. History of rheumatoid arthritis. FINDINGS: CTA CHEST: Thoracic aorta: No evidence of thoracic aortic aneurysm or dissection. No acute abnormality of the aorta. Mediastinum: Heart is normal in size. Main pulmonary artery is normal in caliber. No evidence of central pulmonary embolus. No mediastinal or hilar lymphadenopathy. Lungs/Pleura: Lungs are without acute process. There is mild scattered interstitial thickening, likely chronic. No focal consolidation or pulmonary edema. No evidence of pleural effusion or pneumothorax. Soft Tissues/Bones: There is joint effusion and bursal fluid at the right shoulder. Multiple foci of gas are seen within the fluid, which extends into the right axillary region. There is stranding in the right axillary region. There is loss of the intramuscular fat planes about the right shoulder. The right shoulder is incompletely included in the field of view. No osseous destructive change in the imaged portions of the shoulder. There is a mildly depressed superior endplate fracture at T4, which is age indeterminate. CTA ABDOMEN: Abdominal aorta/Branches: Abdominal aorta is normal in caliber. There is mild scattered atherosclerosis. Origins of the celiac, superior mesenteric, renal, and inferior mesenteric arteries are patent and grossly normal in caliber. No evidence of intimal dissection. Organs: Caudate lobe hypertrophy is noted at the liver. Liver is otherwise unremarkable. Gallbladder is surgically absent. No intrahepatic or extrahepatic biliary dilatation. Spleen, pancreas, and adrenal glands are unremarkable. There is symmetric enhancement of the kidneys. No hydronephrosis or perinephric inflammation. There is a 1.7 cm simple cyst in the mid right kidney (no follow-up imaging recommended). GI/Bowel: There is no abnormal bowel distention or pericolonic inflammation. No free intraperitoneal air or fluid. Appendix is not seen. Peritoneum/Retroperitoneum: No retroperitoneal or mesenteric lymphadenopathy. Bones/Soft Tissues: No acute or suspicious osseous abnormality. CTA PELVIS: Aorta/Iliacs: Iliac arteries are patent and normal in caliber. There is a right femoral venous catheter in place. Other: Urinary bladder is within normal limits. Uterus and adnexal structures are grossly unremarkable. There is no pelvic lymphadenopathy. Bones/Soft Tissues: There is focal inflammatory change and soft tissue gas just above the pubic symphysis. There is a vertical nondisplaced fracture of the leftpubic body, which appears subacute. No joint effusion at the hips. There is vertical sclerosis in the bilateral sacral ala, compatible with subacute/chronic nondisplaced bilateral sacral insufficiency fractures. There is a nondisplaced right transverse process fracture at L5 and L4. There is a nondisplaced left transverse process fracture at L5. Lumbar vertebral body heights are preserved. 1. No evidence of aortic aneurysm, intimal dissection, or other acute aortic syndrome. No central pulmonary embolus. 2. No acute pulmonary process or acute process in the abdomen/pelvis. 3. Joint/bursal fluid and gas with surrounding soft tissue edema at the right shoulder, concerning for septic arthritis (assuming no recent intervention). Orthopedic consultation and arthrocentesis are recommended. 4. Focal inflammatory changes and soft tissue gas just above the pubic symphysis with a vertical nondisplaced fracture of the left pubic body, which appears subacute. Possibility of septic arthritis at the pubic symphysis is not excluded. 5. Subacute/chronic vertical insufficiency fractures of the bilateral sacral ala. 6. Nondisplaced fractures of the bilateral L5 and right L4 transverse processes, which are age indeterminate. 7. Age indeterminate mildly depressed superior endplate fracture at T4. 8. Right femoral venous catheter noted. Liliya Byers DO 08/15/2021, 7:14 AM Trauma Attending Attestation I have reviewed the above [facility] note(s) and confirmed the lea elements of the medical history and physical exam. I have seen and examined the pt. I have discussed the findings, established the care plan and recommendations with Resident. Gregg Barrett DO 08/15/2021 5:25 PM * Reyes Thrasher MD - 08/15/2021 7:05 AM EDT INTENSIVE [facility]IT Resident Physician Progress Note Patient - Miriam German Date of Admission - 08/14/2021 5:10 PM Date of Evaluation - 08/15/2021 Room and Bed Number - 3022/3022-01 Hospital Day - 1 Chief Complaint Patient presents with Shoulder Pain Septic arthritis to R shoulder, possible pelvic sepsis Fall SUBJECTIVE: HISTORY OF PRESENT ILLNESS: This is a 66-year-old female with a history of rheumatoid arthritis on Plaquenil, who presented to the ER for initially abdominal pain and right shoulder pain. Of note patient does have a history of a traumatic fall in June resulting in a nondisplaced fracture of bilateral L L5 and right L4 transverse processes. patient was prescribed to be a poor historian at [facility]. Patient reported that the pain was debilitating both the shoulder and abdomen, worse with movement, and described as sharp. Pain in the right shoulder have been going on for approximately 1 day and is is worse than normal RA pain. She notes that at 3 AM, she developed the lower abdominal pain that is only worsewith movement of the lower extremities and pressing on it. Patient also had mild cold extremities at that time there was concern for possible dissection so CTA chest abdomen pelvis was ordered. Whilethere is no dissection on CT imaging, there is concern for septic arthritis of the right shoulder along with the right pubic symphysis. Patient's orthopedic surgery, Dr. Farmer, came to the ER for evaluation and decided the patient needed to have higher level of care. Patient was sent to [facility] for possible orthopedic surgery and septic management. Patient did have a central line placed in the right femoral vein. Patient did receive a 30 mL/kg bolus along with vancomycin and Zosyn IV. [facility] lab work was concerning for leukocytosis of 17.1, CRP of 249.9, ESR 66, along with UTI. Blood cultures that time were pending. Upon arrival at [facility] ER patient was found to have dry mucous membranes, severe pain along the right-sided shoulder and hip and severe mottling on the bilateral lower extremities along with the left aspect of the upper extremities. Lab work at [facility] was concerning for a CRP of 258.6, leukocytosis of 23.3, and ESR of 84. Orthopedic surgery was consulted and further imaging was obtained of the right shoulder, bilateral femurs, and bilateral tibia and fibula. There is concern for possible necrotizing fasciitis based on air in the coracobrachialis muscle which may be related toIV contrast however did note significant deep tissue edema of the shoulder. General surgery was consulted and time had no further recommendations as they had low clinical suspicion for necrotizing fasciitis. Aspiration of the right shoulder was a dry tap and IR was consulted to do the right hip. OVERNIGHT EVENTS: Overnight was related that the blood cultures did grow out gram-positive cocci from [facility]. This morning patient has had poor urine output despite receiving IV fluids. There is no Hess in place. Patient notes having improved neck pain and minimal headache at this time with no numbness tingling, nor weakness. She denies any, fevers or chills, chest pain, shortness with, abdominal pain, nauseous vomiting, dysuria or hematuria. Patient is passing gas but has not had anything to eat. She notes that she feels dry would like something to drink. TODAY: AWAKE & FOLLOWING COMMANDS: [] No [x] Yes VASOPRESSORS: [] No [] Yes Vasopressor Agent [] Levophed [] Dopamine [] Vasopressin [] Dobutamine [] Phenylephrine [] Epinephrine OBJECTIVE: VITAL SIGNS: Patient Vitals for the past 8 hrs: BP Temp Temp src Pulse Resp SpO2 Height Weight 08/15/21 0630 (!) 84/51 (!) 119 17 91 % 08/15/21 0600 103/60 98.2 F (36.8 C) Oral (!) 121 20 91 % 08/15/21 0530 105/81 (!) 125 22 93 % 08/15/21 0500 (!) 109/58 (!) 124 24 93 % 08/15/21 0430 (!) 110/59 (!) 118 18 94 % 08/15/21 0400 96/64 98.4 F (36.9 C) Oral (!) 117 17 93 % 08/15/21 0330 (!) 86/55 (!) 116 17 91 % 08/15/21 0300 (!) 90/55 (!) 119 17 93 % 08/15/21 0230 (!) 93/56 (!) 124 20 94 % 08/15/21 0200 (!) 107/58 98.8 F (37.1 C) Oral (!) 125 22 94 % 08/15/21 0130 (!) 102/57 (!) 124 20 95 % 08/15/21 0100 85/73 (!) 123 19 95 % 08/15/21 0030 (!) 86/54 (!) 116 17 96 % 08/15/21 0000 (!) 83/55 98.3 F (36.8 C) Oral (!) 118 17 93 % 08/14/21 2330 (!) 72/49 (!) 121 17 93 % 08/14/21 2326 220 lb 0.3 oz (99.8 kg) 08/14/21 2313 5' 4 (1.626 m) 220 lb 0.3 oz (99.8 kg) Last Body weight: Wt Readings from Last 3 Encounters: 08/14/21 220 lb 0.3 oz (99.8 kg) 08/14/21 213 lb (96.6 kg) Body Mass Index : Body mass index is 37.77 kg/m . Tmax over 24 hours: Temp (24hrs), Av.7 F (37.1 C), Min:98.2 F (36.8 C), Max:100.9 F (38.3 C) Ins/Outs: In: 1000.7 [I.V.:800.7] Out: 150 [Urine:150] PHYSICAL EXAM: Constitutional: Awake and alert, obese, well developed and well nourished, in mild distress EENT: PERRLA, EOMI, sclera clear, anicteric, oropharynx clear, no lesions, dry mucous membranes Neck: Positive jolt test, negative Kernig's and Brudzinski's sign, symmetrical, trachea midline, noadenopathy, thyroid symmetric, no jvd Respiratory: clear to auscultation, no wheezes, rales, or rhonchi Cardiovascular: regular rate and rhythm, normal S1, S2, no murmur noted and 2+ pulses throughout Abdomen: soft, nontender, nondistended, no masses or organomegaly Neuro: Alert to person, place, and time, moving all extremities, sensation is equal intact light touch pain all extremities. Extremities: peripheral pulses normal, no pedal edema, no clubbing, but bilateral lower extremitieshave livedo reticularis MEDICATIONS: Scheduled Meds: piperacillin-tazobactam 3,375 mg IntraVENous Q8H vancomycin 1,000 mg IntraVENous Q12H sodium chloride flush 5-40 mL IntraVENous 2 times per day enoxaparin 40 mg SubCUTAneous Daily vancomycin (VANCOCIN) intermittent dosing (placeholder) Other RX Placeholder Continuous Infusions: sodium chloride sodium chloride 150 mL/hr at 08/15/21 0400 PRN Meds: sodium chloride flush, 5-40 mL, PRN sodium chloride, , PRN acetaminophen, 650 mg, Q6H PRN Or acetaminophen, 650 mg, Q6H PRN HYDROmorphone, 1 mg, Q4H PRN SUPPORT DEVICES: [] Ventilator [] BIPAP [] Nasal Cannula [x] Room Air VENT SETTINGS (Comprehensive) (if applicable): Additional Respiratory Assessments Heart Rate: (!) 119 Resp: 17 SpO2: 91 % No results found for: IFIO2, MODE, SETTIDVOL, SETPEEP DATA: Complete Blood Count: Recent Labs 08/14/21 0923 08/14/21 1731 08/15/21 0340 WBC 17.1* 23.3* 16.9* RBC 4.52 4.15 3.87* HGB 13.5 12.4 11.7* HCT 43.8 40.4 37.5 MCV 96.9 97.3 96.9 MCH 29.9 29.9 30.2 MCHC 30.8 30.7 31.2 RDW 14.8* 15.0* 15.2* PLT 259 See Reflexed IPF Result 183 MPV 9.5 -- 9.9 Last 3 Blood Glucose: Recent Labs 08/14/21 0908/14/21 1731 08/15/21 0340 GLUCOSE 113* 94 78 PT/INR: Lab Results Component Value Date PROTIME 10.4 08/14/2021 INR 1.0 08/14/2021 PTT: Lab Results Component Value Date APTT 19.6 08/14/2021 Basic Metabolic Profile: Recent Labs 08/14/21 0908/14/21 17308/15/21 0340 NA 140 140 141 K 4.3 4.1 4.1 CL 101 104 109* CO2 27 22 20 BUN 12 11 12 CREATININE 0.55 0.62 0.60 GLUCOSE 113* 94 78 Liver Function: Recent Labs 08/14/211730 PROT 5.8* LABALBU 2.6* ALT 38* AST 40* ALKPHOS 165* BILITOT 0.60 Magnesium: No results found for: MG Phosphorus: No results found for: PHOS Ionized Calcium: No results found for: CAION Urinalysis: Lab Results Component Value Date NITRU POSITIVE 08/14/2021 COLORU Yellow 08/14/2021 PHUR 6.5 08/14/2021 WBCUA 2 TO 5 08/14/2021 RBCUA 5 TO 10 08/14/2021 BACTERIA 3+ 08/14/2021 SPECGRAV 1.010 08/14/2021 LEUKOCYTESUR NEGATIVE 08/14/2021 UROBILINOGEN Normal 08/14/2021 BILIRUBINUR NEGATIVE 08/14/2021 GLUCOSEU NEGATIVE 08/14/2021 KETUA NEGATIVE 08/14/2021 HgBA1c: No results found for: LABA1C TSH: No results found for: TSH Lactic Acid: Lab Results Component Value Date LACTA 1.8 08/14/2021 Troponin: No results for input(s): TROPONINI in the last 72 hours. Microbiology: Blood Culture: No components found for: CBLOOD, CFUNGUSBL Radiology/Imaging: CT TIBIA FIBULA RIGHT W CONTRAST Final Result No evidence of necrotizing fasciitis of the right lower extremity. Mild superficial subcutaneous fatty edema lateral to the right hip and intermittently laterally and posteriorly in the lower leg. Healing fractures at the medial aspect of the left body of pubis and mid right inferior pubic ramus. CT TIBIA FIBULA LEFT W CONTRAST Final Result No evidence of necrotizing fasciitis throughout the visualized left lower extremity. Healing fracture evident at the body of the left pubis and mid right inferior pubic ramus. Questionable very subtle nondisplaced fracture at the anterior aspect of the left acetabulum. This may represent artifact. CT FEMUR RIGHT W CONTRAST Final Result No evidence of necrotizing fasciitis of the right lower extremity. Mild superficial subcutaneous fatty edema lateral to the right hip and intermittently laterally and posteriorly in the lower leg. Healing fractures at the medial aspect of the left body of pubis and mid right inferior pubic ramus. CT FEMUR LEFT W CONTRAST Final Result No evidence of necrotizing fasciitis throughout the visualized left lower extremity. Healing fracture evident at the body of the left pubis and mid right inferior pubic ramus. Questionable very subtle nondisplaced fracture at the anterior aspect of the left acetabulum. This may represent artifact. CT HUMERUS RIGHT W CONTRAST Final Result Addendum 1 of 1 ADDENDUM: Critical results were called by Dr. Mik Cantu to Dr. Mcelroy on 08/15/2021 at 00:07. Final Soft tissue air identified within upper portion of the coracobrachialis muscle which shows surrounding inflammatory change. This raises concern for necrotizing fasciitis although no other soft tissue gas is evident. This could potentially represent intravenous air related to the contrast injection. Inflammatory change/edema otherwise involves deeper subcutaneous fatty tissues anterior, superior and posterior to the shoulder and more superficially down the lateral aspect of the upper arm. CT SHOULDER RIGHT W CONTRAST Final Result Addendum 1 of 1 ADDENDUM: Critical results were called by Dr. Mik Cantu to Dr. Mcelroy on 08/15/2021 at 00:07. Final Soft tissue air identified within upper portion of the coracobrachialis muscle which shows surrounding inflammatory change. This raises concern for necrotizing fasciitis although no other soft tissue gas is evident. This could potentially represent intravenous air related to the contrast injection. Inflammatory change/edema otherwise involves deeper subcutaneous fatty tissues anterior, superior and posterior to the shoulder and more superficially down the lateral aspect of the upper arm. XR SHOULDER RIGHT (MIN 2 VIEWS) Final Result No acute abnormality. XR PELVIS (MIN 3 VIEWS) Final Result Nondisplaced fracture of the left superior and inferior pubic rami at the pubic symphysis with ongoing healing. Nondisplaced right superior and inferior pubic rami fractures with ongoing healing. Nondisplaced bilateral sacral ala fractures with ongoing healing. CT RADIUS ULNA RIGHT W CONTRAST (Results Pending) ASSESSMENT: Patient Active Problem List Diagnosis Date Noted Sepsis (HCC) 08/14/2021 PLAN: WEAN PER PROTOCOL: [] No [] Yes [x] N/A ICU PROPHYLAXIS: Stress ulcer: [] PPI Agent [] P1Rckqu [] Sucralfate [] Other [x] None VTE: [x] Enoxaparin [] SQ Heparin [] EPC Cuffs [] Other NUTRITION: [] NPO [] TF: [] TPN [x] PO HOME MEDS RECONCILED: [x] No [] Yes CONSULTATION NEEDED: [] No [x] Yes FAMILY UPDATED: [x] No [] Yes TRANSFER OUT OF ICU: [x] No [] Yes PLAN/MEDICAL DECISION MAKING: Neurologic: Neuro intact Neuro checks per protocol Sedation: None Pain management: Dilaudid 1 mg Q4 as needed Cardiovascular: Hemodynamically stable at this time MAP goal > 65mmHg Does not require pressors at this time Tachycardia and HTN 2/2 to pain and sepsis Pulmonary: Maintain oxygen sats >92% Pulmonary toilet CTA of the chest reveals no acute abnormalities of the lungs. GI/Nutrition Glycolax PRN Ulcer Prophylaxis: not indicated Diet:ADULT DIET; Regular; Low Sodium (2 gm) Renal/Fluid/Electrolyte IV Fluids: 0.9NS @ 125 mL/Hr I/O: In: 1000.7 [I.V.:800.7] Out: 150 [Urine:150] UOP: 0.1 cc/kg/hr overnight We will continue to follow closely BUN/Cr Monitor electrolytes, replace PRN ID WBC: Lab Results Component Value Date WBC 16.9 (H) 08/15/2021 Tmax: Temp (24hrs), Av.7 F (37.1 C), Min:98.2 F (36.8 C), Max:100.9 F (38.3 C) Concern for Septic Arthritis of the R shoulder and R hip Blood cultures from [facility] grew back gram-positive cocci in clusters per report Orthopedic surgery consulted for possible septic arthritis Right shoulder is a dry tap for arthrocentesis Await IR for right hip arthrocentesis General surgery consulted for possible necrotizing fascitis They have no suspicion at this time for it ID consulted for abx regimen Lactic acid 2.8 -> 3.0 ->2.7 CRP 249.9->258.6 ESR 66->84 Leukocytosis of 17.1-> 23.3 -> 16.9 Pro-Floyd of 3.17 CT of the extremities does reveal air in the right coracobrachialis concerning for possible necrotizing fasciitis versus air from venous injection along with edema of the deeper subcutaneous fat around the right shoulder concerning for septic arthritis. Antimicrobials: vancomycin and Zosyn Acute cystitis without hematuria Await cultures Continue Abx Hematology: Recent Labs 08/14/21 0923 08/14/21 1731 08/15/21 0340 HGB 13.5 12.4 11.7* stable History of RA On Plaquenil which will be held at the time She reports not taking it due to nausea and vomiting. Consult rheumatology for further recommendations Endocrine: glucose controlled - most recent BGL is Recent Labs 08/14/21 0923 08/14/21 1731 08/15/21 0340 GLUCOSE 113* 94 78 DVT Prophylaxis lovenox Discharge Needs: PT, OT, ST, SW and Case Management CODE STATUS: Full Code DISPOSITION: [x] To remain ICU: [] OK for out of ICU from Critical Care standpoint Eriberto Marcial DO Emergency Medicine Resident, PGY3 Critical Care Service 08/15/21 7:05 AM Attending Physician Statement I have discussed the care of Miriam German, including pertinent history and exam findings, withthe resident. I have seen and examined the patient and the lea elements of all parts of the encounter have been performed by me. I agree with the assessment, plan and orders as documented by the resident with additions . Sepsis due to gram-positive cocci in clusters likely staph aureus. Septic arthritis of the right shoulder. Rheumatoid arthritis.. No abscess noted in the spine. Continue vancomycin. Total critical care time caring for this patient with life threatening, unstable organ failure, including direct patient contact, management of life support systems, review of data including imaging and labs, discussions with other team members and physicians at least 30 Min so far today, excludingprocedures. Treatment plan Discussed with nursing staff in detail , all questions answered . Please note that this chart was generated using voice recognition [employer] dictation software. Although every effort was made to ensure the accuracy of this automated tank tester, some errors in tank tester may have occurred. * Van Yanna Kraft DO - 08/15/2021 6:26 AM EDT Orthopedic Progress Note Patient: Miriam German, 66 y.o. female Date of : 1955 Subjective: Patient seen and examined. No complaints or concerns. Pain controlled on current regimen. No issuesovernight. Denies fever, WAGNER, CP, SOB, N/V. Objective: Vitals: 08/15/21 0600 BP: 103/60 Pulse: (!) 121 Resp: 20 Temp: 98.2 F (36.8 C) SpO2: 91% Gen: NAD, cooperative Cardiovascular: Regular rate Respiratory: Symmetric chest rise. No accessory muscle use Pelvis: Stable to anterior and lateral compression. Very tender to palpation at the pubic symphysis. Has not progressed since admission RUE: Skin intact with no appreciable erythema or effusion over right shoulder. Very TTP about the right shoulder, unable to tolerate ROM of the shoulder or elbow due to pain. Compartments soft and easily compressible. Ulnar/median/AIN/PIN/radial motor intact. Axillary/MCN/median/ulnar/radial nervesSILT. Radial pulse 1+. RLE: Skin intact with no effusion or erythema of right hip or knee. Significant mottling of the skin from the buttocks to the feet. Tender to palpation over the hip. Able to tolerate ~60 degrees of hip flexion before significant pain is experienced. Able to tolerate approximately 70 degrees of kneeflexion before experiencing significant pain. Has stiffness and significant pain of the right ankleupon palpation. No palpable screw appreciated about the ankle. EHL/FHL/TA/GS complex motor intact. Sural/saphenous/SPN/DPN/plantar nerve distribution SILT. DP pulse 1+. LLE: Skin intact without erythema or effusion over hip or knee. Significant mottling of the skin from the buttocks to the feet. Tender to palpation over the hip. Able to tolerate ~60 degrees of hip flexion before significant pain is experienced. Able to tolerate ~70 degrees of knee flexion before experiencing significant pain. EHL/FHL/TA/GS complex motor intact. Sural/saphenous/SPN/DPN/plantar nerve distribution SILT. DP pulse 1+. Recent Labs 08/14/21 1731 08/14/21 1802 08/15/21 0340 WBC < > -- 16.9* HGB < > -- 11.7* HCT < > -- 37.5 PLT < > -- 183 INR -- 1.0 -- NA < > -- 141 K < > -- 4.1 BUN < > -- 12 CREATININE < > -- 0.60 GLUCOSE < > -- 78 < > = values in this interval not displayed. Anticoag: Lovenox Abx: Vancomycin, Zosyn Impression/Plan: 66 y.o. female who being seen for: -Concerns for necrotizing fasciitis -Concerns for right septic shoulder arthritis s/p dry tap -Concerns for pubic symphysis septic arthritis -Subacute bilateral superior and inferior pubic rami -Subacute bilateral sacral ala fractures - F/u IR asp of right shoulder and pubic symphysis - WBAT RUE and BLE - F/u MICU recs, re: meningitis versus toxic shock - Will trend clinically, possible MRI if no clinical improvement - OK from orthopedic perspective - Abx per primary - DVT per primary - Pain per primary - Please contact ortho with any questions . * Holli Llanes [facility] - 08/14/2021 7:42 PM EDT [facility] Pharmacokinetic Monitoring Service - Vancomycin Miriam German is a 66 y.o. female starting on vancomycin therapy for SSTI. Pharmacy consulted by Dr. Pathak for monitoring and adjustment. Target Concentration: Goal trough of 10-15 mg/L and AUC/FABIOLA <500 mg*hr/L Additional Antimicrobials: piperacillin/tazobactam Pertinent Laboratory Values: Wt Readings from Last 1 Encounters: 08/14/21 213 lb (96.6 kg) Temp Readings from Last 1 Encounters: 08/14/21 98.4 F (36.9 C) (Oral) Estimated Creatinine Clearance: 97 mL/min (based on SCr of 0.62 mg/dL). Recent Labs 08/14/21 0923 08/14/21 1731 CREATININE 0.55 0.62 WBC 17.1* 23.3* Pertinent Cultures: Culture Date Source Results 08/14 BC x 2 Pending MRSA Nasal Swab: N/A. Non-respiratory infection. Transfer from [facility] with concern for septic arthritis of shoulder and pelvis based on CT imaging. Tmax 100.9. BP on lower end, tachycardic, WBC up-trending from 17.1 to 23.3. Renal function at baseline - at high risk for worsening renal function with low BP. Plan: Dosing recommendations based on Bayesian software and pharmacokinetic calculations Start vancomycin 1000 mg Q12 (already received total of 2000 mg today - last dose given at 1830) Anticipated AUC of ~450 and trough concentration of ~13 at steady state Renal labs as indicated Vancomycin concentration not ordered yet Pharmacy will continue to monitor patient and adjust therapy as indicated Thank you for the consult, Holli Llanes RPH 08/14/2021 7:39 PM documented in this encounterB[facility] Phone: 1(345) 516-908505-30-2022 Hospital Discharge instructions* Discharge Instr - CLAIRE* Sunni Mary RN - 08/19/2021 3:40 PM EDT Continuity of Care Form Patient Name: Miriam Gemran : 1955 Admit date: 08/14/2021 Discharge date: 08/21/2021 Code Status Order: Full Code Advance Directives: Admitting Physician: Loretta Strauss MD PCP: Bhumika Stacy DO Discharging Nurse: Sunni Mary RN Discharging Hospital Unit/Room#: Discharging Unit Emergency Contact: Extended Emergency Contact Information Primary Emergency Contact: Branden Lucero Address: [address] [place] [address] Relation: Child Secondary Emergency Contact: Geremias Gann Address: [address] [place] [address] Relation: Other Past Surgical History: Past Surgical History: Procedure Laterality Date CT ASP ABS HEMATOMA BULLA CYST 08/17/2021 CT ASP ABS HEMATOMA BULLA CYST 08/17/2021 Jonathan Osorio MD STVZ CT SCAN Immunization History: There is no immunization history on file for this patient. Active Problems: Patient Active Problem List Diagnosis Code Septicemia ([facility]) A41.9 Pyogenic arthritis of right shoulder region ([facility]) M00.9 Acute cystitis without hematuria N30.00 MSSA bacteremia R78.81, B95.61 Volume overload E87.70 Constipation K59.00 Physical debility R53.81 Morbid obesity ([facility]) E66.01 Isolation/Infection: Isolation No Isolation Patient Infection Status Infection Onset Added Last Indicated Last Indicated By Review Planned Expiration Resolved Resolved By None active Resolved COVID-19 (Rule Out) 08/14/21 08/14/21 08/14/21 COVID-19, Rapid (Ordered) 08/14/21 Rule-Out Test Resulted Nurse Assessment: Last Vital Signs: BP (!) 140/61 Pulse (!) 104 Temp 98 F (36.7 C) (Axillary) Resp 16 Ht 5' 4 (1.626 m) Wt 234 lb 12.6 oz (106.5 kg) SpO2 99% BMI 40.30 kg/m Last documented pain score (0-10 scale): Pain Level: 10 Last Weight: Wt Readings from Last 1 Encounters: 08/19/21 234 lb 12.6 oz (106.5 kg) Mental Status: oriented IV Access: PICC- Right upper arm- placed 08/21/2021 Nursing Mobility/ADLs: Walking Dependent Transfer Dependent Bathing Dependent Dressing Dependent Toileting Dependent Feeding Assisted Software Verification Engineer Assisted Med Delivery whole Wound Care Documentation and Therapy: Incision 08/16/21 Axilla Right (Active) Dressing Status Clean;Dry;Intact 08/19/21 0800 Dressing/Treatment Dry dressing 08/19/21 0800 Closure Other (Comment) 08/19/21 0800 Incision Assessment Other (Comment) 08/19/21 0800 Drainage Amount None 08/19/21 0800 Odor None 08/19/21 0800 Christine-incision Assessment Other (Comment) 08/19/21 0800 Number of days: 2 Incision 08/16/21 Ankle Anterior;Right (Active) Dressing Status Clean;Dry;Intact 08/19/21 0800 Dressing/Treatment Bobby wrap;Dry dressing 08/19/21 08 Closure Other (Comment) 08/19/21 0800 Incision Assessment Other (Comment) 08/19/21 0800 Drainage Amount None 08/19/21 0800 Odor None 08/19/21 0800 Christine-incision Assessment Other (Comment) 08/19/21 0800 Number of days: 2 Elimination: Continence: Bowel: Yes Bladder: Yes Urinary Catheter: None Colostomy/Ileostomy/Ileal Conduit: No Date of Last BM: 08/21/2021 Intake/Output Summary (Last 24 hours) at 08/19/2021 1540 Last data filed at 08/19/2021 0600 Gross per 24 hour Intake 120 ml Output 1400 ml Net -1280 ml I/O last 3 completed shifts: In: 120 [P.O.:120] Out: 2800 [Urine:2800] Safety Concerns: At Risk for Falls Impairments/Disabilities: None Nutrition Therapy: Current Nutrition Therapy: - Oral Diet: General Routes of Feeding: Oral Liquids: Thin Liquids Daily Fluid Restriction: no Last Modified Barium Swallow with Video (Video Swallowing Test): not done Treatments at the Time of Hospital Discharge: Respiratory Treatments: n/a Oxygen Therapy: is not on home oxygen therapy. Ventilator: - No ventilator support Rehab Therapies: Physical Therapy and Occupational Therapy Weight Bearing Status/Restrictions: No weight bearing restrictions Other Medical Equipment (for information only, NOT a DME order): n/a Other Treatments: n/a Patient's personal belongings (please select all that are sent with patient): Belongings bag RN SIGNATURE: CASE MANAGEMENT/SOCIAL WORK SECTION Inpatient Status Date: 08/14/21 Readmission Risk Assessment Score: Readmission Risk Risk of Unplanned Readmission: 12 Discharging to Facility/ Agency Name: Address: [facility] Details Fax [address] [facility] [address] Phone: Fax: Dialysis Facility (if applicable) Name: Address: Dialysis Schedule: Phone: Fax: [employer]/Analysis Director signature: PHYSICIAN SECTION Prognosis: Fair Condition at Discharge: Stable Rehab Potential (if transferring to Rehab): Fair Recommended Labs or Other Treatments After Discharge: Physician Certification: I certify the above information and transfer of Miriam German is necessary for the continuing treatment of the diagnosis listed and that she requires Snf Facility for less 30 days. Update Admission H&P: No change in H&P PHYSICIAN SIGNATURE: * Additional Instructions* Dilan Jerome MD - 08/15/2021 Follow up with PCP and rheumatology for correction care of your rheumatoid arthritis documented [facility] [employer] Phone: [phone]) [phone] NotePROCEDURE: CT-GUIDED PUBIC SYMPHYSIS ASPIRATION 08/17/2021 HISTORY: ORDERING SYSTEM PROVIDED HISTORY: symphysis pubis asp. TECHNOLOGIST PROVIDED HISTORY: 08/17 symphysis pubis asp. TECHNIQUE: Automated exposure control, iterative reconstruction, and/or weight based adjustment of the mA/kV was utilized to reduce the radiation dose to as low as reasonably achievable. CONTRAST: None SEDATION: None FLUOROSCOPY DOSE AND TYPE OR TIME AND EXPOSURES: None DESCRIPTION OF PROCEDURE AND FINDINGS: Informed consent was obtained after a detailed explanation of the procedure including risks, benefits, and alternatives. [place] protocol was observed. Sterile gowns, masks, hats and gloves utilized for maximal sterile barrier. Initial CT images obtained with an overlying grid redemonstrate subtle irregularity and a tiny amount of fluid adjacent to the pubic symphysis. Skin over the area was prepped and draped in standard sterile fashion. 1% lidocaine used for local anesthesia. With CT for localization, a 20-gauge needle was advanced into the region of the pubic symphysis. CT images show a safe tract and access to the space. Minimal fluid was able to be aspirated spontaneously. Approximately 1 mL of saline was injected and as much as possible aspirated. Sample obtained was sent for the requested studies/cultures. Needle was removed and a Band-Aid applied. Post-procedure images show no local complication. The patient left the department stable condition. EBL: None. IMPRESSION: CT-guided pubic symphysis region aspiration performed successfully. Interpreted by: Jonathan Osorio MD Signed by: Jonathan Osorio MD 08/17/21 Final resultMerColusa Regional Medical Center05-28-2022 NotePROCEDURE: CT-GUIDED PUBIC SYMPHYSIS ASPIRATION 08/17/2021 HISTORY: ORDERING SYSTEM PROVIDED HISTORY: symphysis pubis asp. TECHNOLOGIST PROVIDED HISTORY: 08/17 symphysis pubis asp. TECHNIQUE: Automated exposure control, iterative reconstruction, and/or weight based adjustment of the mA/kV was utilized to reduce the radiation dose to as low as reasonably achievable. CONTRAST: None SEDATION: None FLUOROSCOPY DOSE AND TYPE OR TIME AND EXPOSURES: None DESCRIPTION OF PROCEDURE AND FINDINGS: Informed consent was obtained after a detailed explanation of the procedure including risks, benefits, and alternatives. [place] protocol was observed. Sterile gowns, masks, hats and gloves utilized for maximal sterile barrier. Initial CT images obtained with an overlying grid redemonstrate subtle irregularity and a tiny amount of fluid adjacent to the pubic symphysis. Skin over the area was prepped and draped in standard sterile fashion. 1% lidocaine used for local anesthesia. With CT for localization, a 20-gauge needle was advanced into the region of the pubic symphysis. CT images show a safe tract and access to the space. Minimal fluid was able to be aspirated spontaneously. Approximately 1 mL of saline was injected and as much as possible aspirated. Sample obtained was sent for the requested studies/cultures. Needle was removed and a Band-Aid applied. Post-procedure images show no local complication. The patient left the department stable condition. EBL: None. [facility] [id number] Note [facility] Vascular Upper Extremities Veins Procedure Patient Name FRANCISCO J Date of Study 08/15/2021 MIRIAM Ragsdale Date of 1955 Gender Female Age 66 year(s) Race Room Number 1670 Corporate ID [id number] # Patient Acct [id number] # MR # [id number] Engineer Station Mainline Laura Tavares RVT, RDMS Interpreting Erasmo Pham Physician Referring Referring Physician Eriberto Marcial DO Nurse Practitioner Procedure Type of Study: Veins: Upper Extremities Veins, Venous Scan Upper Right. Indications for Study:Arm swelling or discomfort. Patient Status:In Patient. Technical Quality:Limited visualization. Limitation reason:deep vessels. Conclusions Summary No evidence of superficial or deep venous thrombosis in the right upper extremity. Signature Findings: Right Impression: Right internal jugular, subclavian, axillary, brachial, ulnar, radial, cephalic and basilic veins are compressible with normal doppler responses. Risk Factors - The patient's risk factor(s) include: obesity. Velocities are measured in cm/s ; Diameters are measured in cm Right UE Vein Measurements 2D Measurements + + + + + !Location !Visualized!Compressibility!Thrombosis! + + + + + !Prox IJV !Yes !Yes !None ! + + + + + !Dist IJV !Yes !Yes !None ! + + + + + !Prox SCV !Yes !Yes !None ! + + + + + !Dist SCV !Yes !Yes !None ! + + + + + !Prox Axillary !Yes !Yes !None ! + + + + + !Dist Axillary !Yes !Yes !None ! + + + + + !Prox Brachial !Yes !Yes !None ! + + + + + !Dist Brachial !Yes !Yes !None ! + + + + + !Prox Radial !Yes !Yes !None ! + + + + + !Dist Radial !Yes !Yes !None ! + + + + + !Prox Ulnar !Partial !Yes !None ! + + + + + !Dist Ulnar !Yes !Yes !None ! + + + + + !Basilic at UA !Yes !Yes !None ! + + + + + !Basilic at AF !Yes !Yes !None ! + + + + + !Basilic at LA !Partial !Yes !None ! + + + + + !Cephalic at UA !No ! ! ! + + + + + !Cephalic at AF !Yes !Yes !None ! + + + + + !Cephalic at LA !Yes !Yes !None ! + + + + + Doppler Measurements + (more content not included)...[facility] STV [id number] Miscellaneous Notes* Telephone Encounter - Chris Love - 07/26/2021 8:52 AM EDT Sent pt a mychart msg * Telephone Encounter - Tom Welch MD - 07/25/2021 4:21 PM EDT Needs f/u appt * Telephone Encounter - Yoana Madrid - 07/25/2021 2:28 PM EDT Last visit with Rheumatology (Yuri) was 02/22/2021 No upcoming appointment Requested Prescriptions Pending Prescriptions Disp Refills predniSONE (DELTASONE) 5 MG tablet [Pharmacy Med Name: PREDNISONE 5 MG TABLET] 90 Tablet 1 Sig: TAKE 1 TABLET BY MOUTH EVERY DAY No PCP on file No PCP on file documented in this [id number] NotePROCEDURE: XR HIP RT 2 3V W PELVIS COMPARISON: None. HISTORY: Pain in right hip joint FINDINGS: BONES:No acute fracture or dislocation. Mild bilateral hip osteoarthropathy. Moderate degenerative changes of the spine SOFT TISSUES:Negative. No visible soft tissue swelling. EFFUSION:None visible. OTHER: Negative. IMPRESSION: Mild degenerative changes. No acute fracture Electronically authenticated by: COLLETTE ELIZONDO Date: 2021-07-14 10:08[facility] note* Diagnosis Pyogenic arthritis of right shoulder region, due to unspecified organism (HCC)- Primary SIRS (systemic inflammatory response syndrome) (HCC) Systemic inflammatory response syndrome, unspecified Septic shock (HCC) documented in this encounter [employer] Work Phone: [email or web address] note* Diagnosis MSSA bacteremia- Primary Pyogenic arthritis of right shoulder region, due to unspecified organism (HCC) Acute cystitis without hematuria Acute cystitis Staphylococcal arthritis of right shoulder (HCC) Pyogenic arthritis, shoulder region Septicemia (HCC) Unspecified septicemia Volume overload Other fluid overload Constipation Unspecified constipation Physical debility Debility, unspecified Morbid obesity (HCC) Morbid obesity documented in this encounter [facility] Work Phone: evalfqwoiv note* Diagnosis Staphylococcal arthritis of right shoulder (HCC) Pyogenic arthritis, shoulder region MSSA bacteremia documented in this encounter [facility] [employer] Phone: evaluation noteNo [place] Other Evaluation note* Diagnosis Weakness- Primary Other malaise and fatigue Pneumonia due to infectious organism, unspecified laterality, unspecified part of lung Fall, initial encounter [facility] Diagnosis Onset Date Resolution Status C2 cervical fracture acute Chronic respiratory failure with hypoxia acute Chronic respiratory failure with hypoxia and hypercapn ia acute COPD (chronic obstructive pulmonary disease) acute COVID-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 acute Hypertension acute Rheumatoid arthritis acute Sleep apnea acute [facility] Work Phone: Evaluation note* Diagnosis Onset Date Resolution Status C2 cervical fracture acute Chronic respiratory failure with hypoxia acute Chronic respiratory failure with hypoxia and hypercapn ia acute COPD (chronic obstructive pulmonary disease) acute COVID-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 acute Hypertension acute Rheumatoid arthritis acute Sleep apnea acute C2 cervical fracture acute Cervical myelopathy acute Chronic respiratory failure with hypoxia and hypercapn ia acute COPD (chronic obstructive pulmonary disease) acute COVID-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 acute Hypertension acute Impaired gait and mobility a cute Mild cognitive impairment ac salamatof Postoperative pain acute Rheumatoid arthritis acute Sleep apnea acute [facility] Work Phone: Evaluation note* Diagnosis Extremity numbness- Primary Disturbance of skin sensation Extremity numbness Disturbance of skin sensation Electrolyte disorder (K, Cl, or Na) Electrolyte and fluid disorders not elsewhere classified [facility] Other chronic pain- Primary Osteoarthritis of spine, unspecified spinal osteoarthritis complication status, unspecified spinal region documented in this encounter 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 Medical History Inflammatory polyarthropathy Medical History Menopause Medical History Asymptomatic microscopic hematur ia Medical History Paresthesia Medical History Sacral insufficiency fracture with routine healing, subsequent encounter Surgical History DIAGNOSTIC RIGHT SHOULDER ARTHR OSCOPY 2021 Surgical History REMOVAL OF ANKLE IMPLANT 2021 Surgical History FNA BX W/CT GDN 1ST LES 2021 Surgical History REMOVAL OF TONSILS Surgical History ARTHROSCOPY OF JOINT Hospitalization History SEE SURGICAL HX [facility] Other History general Narrative - Reported* Type Description Date Medical History Acute bronchitis due to other sp ecified organisms Medical History 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 Medical History Chronic bronchitis, mucopurulent Medical History Hypoxemia Medical History Lumbar spondylosis Medical History Chronic venous insufficiency Medical History Essential hypertension Medical History Bilateral leg weakness Medical History Acute bilateral low back pain wi thout sciatica Medical History Drug-induced [place]ign[place]'s syndrome Medical History Inflammatory polyarthropathy Medical History Menopause Medical History Asymptomatic microscopic hematur ia Medical History Paresthesia Medical History Sacral insufficiency fracture with routine healing, subsequent encounter Medical History Odontoid Fx Surgical History DIAGNOSTIC RIGHT SHOULDER ARTHR OSCOPY 2021 Surgical History REMOVAL OF ANKLE IMPLANT 2021 Surgical History FNA BX W/CT GDN LES 2021 Surgical History REMOVAL OF TONSILS Surgical History ARTHROSCOPY OF JOINT Hospitalization History SEE SURGICAL [facility] Other History general Narrative - Reported* Type Description Date Medical History Acute bronchitis due to other sp ecified organisms Medical History 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 Medical History Chronic bronchitis, mucopurulent Medical History Hypoxemia Medical History Lumbar spondylosis Medical History Chronic venous insufficiency Medical History Essential hypertension Medical History Bilateral leg weakness Medical History Acute bilateral low back pain wi thout sciatica Medical History Drug-induced Digna's syndrome Medical History Inflammatory polyarthropathy Medical History Menopause Medical History Asymptomatic microscopic hematur ia Medical History Paresthesia Medical History Sacral insufficiency fracture with routine healing, subsequent encounter Medical History Odontoid Fx Surgical History DIAGNOSTIC RIGHT SHOULDER ARTHR OSCOPY 2021 Surgical History REMOVAL OF ANKLE IMPLANT 2021 Surgical History FNA BX W/CT GDN LES 2021 Surgical History REMOVAL OF TONSILS Surgical History ARTHROSCOPY OF JOINT Surgical History Fusion Unstable Odontoid fx 08/22 023 Hospitalization History SEE SURGICAL [facility] Other [facility] general Narrative - Reported* Type Description Date Medical History Acute bronchitis due to other sp ecified organisms Medical History 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 Medical History Chronic bronchitis, mucopurulent Medical History Hypoxemia Medical History Lumbar spondylosis Medical History Chronic venous insufficiency Medical History Essential hypertension Medical History Bilateral leg weakness Medical History Acute bilateral low back pain wi thout sciatica Medical 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 Medical History Inflammatory polyarthropathy Medical History Menopause Medical History Asymptomatic microscopic hematur ia Medical History Paresthesia Medical History Sacral insufficiency fracture with routine healing, subsequent encounter Medical History Odontoid Fx Surgical History DIAGNOSTIC RIGHT SHOULDER ARTHR OSCOPY 2021 Surgical History REMOVAL OF ANKLE IMPLANT 2021 Surgical History FNA BX W/CT GDN LES 2021 Surgical History REMOVAL OF TONSILS Surgical History ARTHROSCOPY OF JOINT Surgical History Fusion Unstable Odontoid fx 08/22 023 Surgical History cervical fusion 2022 Hospitalization History SEE SURGICAL [facility] Other [facility] general Narrative - Reported* Type Description Date Medical History 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 Medical History Chronic bronchitis, mucopurulent Medical History Hypoxemia Medical History Lumbar spondylosis Medical History Chronic venous insufficiency Medical History Essential hypertension Medical 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 Medical History Inflammatory polyarthropathy Medical History Menopause Medical History Asymptomatic microscopic hematur ia Medical History Paresthesia Medical History Odontoid Fx Medical History PANFILO Medical History GERD Surgical History DIAGNOSTIC RIGHT SHOULDER ARTHR OSCOPY 2021 Surgical History REMOVAL OF ANKLE IMPLANT 2021 Surgical History FNA BX W/CT GDN 1ST LES 2021 Surgical History REMOVAL OF TONSILS Surgical History ARTHROSCOPY OF JOINT Surgical History Fusion Unstable Odontoid fx 08/22 023 Surgical History cervical fusion 2022 Hospitalization History SEE SURGICAL HX [facility] Other Hospital Discharge instructions Additional Instructions Regular diet-itermittent supervision--Pt. cannot tolerate OOB to eat, Hard collar AAT Teds when out of bed, SCD's in bed Left hand skin tear-NS, Hydrogetl adaptic, 2x2 opsite, change daily and PRN Coccyx: Mepilex change every 3 days and PRN Neck dressing-Change daily, dry sterile dressing, DC gladis on 09/29 Groin and breast folds-wipe with theraworx twice a day [facility]: Reason for referral (narrative)* Reason 06/19/22 Referral for evaluation and treatment of rheumatoid arthritis Diagnosis 1 Rheumatoid arthritis with rheumatoid factor of right hand without organ or systems involvement (M05.741) Diagnosis 2 Rheumatoid arthritis with rheumatoid factor of left hand without organ or systems involvement (M05.742) Referral Organization [facility] Referring Provider First Name Bhumika Referring Provider Last Name Godfrey Referring Provider Specialty Internal Me harley Referred Organization [facility] Referred Provider Mumtaz Gonzalez Referred Address [address] [place],[address] Referred Provider Specialty Rheumatology Referral Priority Routine Referral Appointment Date 2022-06-19 General Notes This patient was tray gnosed with rheumatoid arthritis several years ago but was uninsured and refused referral to rheumatology. However, her condition worsened prompting her to finally agree on referral. She failed several different medications, which were stopped due to adverse reactions. She was eventually kept on Prednisone, which she was able to tolerate and also improved her symptoms. Elena Fajardo 05/14/2022 09:24:33 AM >received today, attachments made, notes locked and referral faxed Elena Fajardo 05/21/2022 10:25:16 AM >faxed first attempt letter Elena Fajardo 05/27/2022 09:32:56 AM >received fax with appt date and time Clinical Notes This patient is bein g referred for treatment of previously diagnosed rheumatoid arthritis. She was unable to tolerate several different medications and was eventually prescribed Prednisone. This past year she developed COVID, which was complicated by pneumonia and hypoxemia. COVID kept her housebound and as a consequence, she had not scheduled follow up with Rheumatology and has remained on Prednisone. She is being referred to establish care with a local Wafer Fab Technician. [facility] Other Reason for visit NarrativeRHEUMATOLOGY REFERRAL UPDATE [facility] Other Advance Directives No Advanced Directives Records FoundLatest Code Status on File Code Status Date Activated Date Inactivated Comments Full Code 08/14/2021 10:24 PM Healthcare Agents on File Name Relationship Healthcare Agent Relationshi p Communication Branden Lucero Child Primary Decision Maker Geremias Gann Other Secondary Decision Maker Documents on File Type Date Recorded Patient Loading Unit Operator Crimping Expl anation ACP-Advance Directive 08/23/2021 1:04 PM Latest Code Status on File Code Status Date Activated Date Inactivated Comments Full Code 08/14/2021 10:24 PM 08/21/2021 6:44 PM Healthcare Agents on File Name Relationship Healthcare Agent Relationshi p Communication Branden Lucero Child Primary Decision Maker Geremias Gann Other Secondary Decision Maker Healthcare Agents on File Name Relationship Healthcare Agent Relationshi p Communication Branden Lucero Child Primary Decision Maker Geremias Gann Other Secondary Decision Maker Healthcare Agents on File Name Relationship Healthcare Agent Relationshi p Communication Branden Lucero Child Primary Decision Maker Geremias Gann Other Secondary Decision Maker Advance Directive Response Recorded Date/ Time Advance Directives No September 10 2:39pm Latest Code Status on File Code Status Date Activated Date Inactivated Comments Full Code 08/14/2021 10:24 PM 08/21/2021 6:44 PM Healthcare Agents on File Name Relationship Healthcare Agent Relationshi p Communication Branden Lucero Child Primary Decision Maker Geremias Gann Other Secondary Decision Maker Healthcare Agents on File Name Relationship Healthcare Agent Relationshi p Communication Branden Lucero Child Primary Decision Maker Geremias Gann Other Secondary Decision Maker Latest Code Status on File Code Status Date Activated Date Inactivated Comments DNRCC-ARREST 10/14/2022 8:39 PM I have dis cussed Miriam German's Do Not Resuscitate wishes with her at the bedside in the presence of her nurse Betzy. She also does not wish to have intubation. They are in agreement with this code status. Question Answer Comments Collaborating Physician: NIRMALA LAKE Documents on File Type Date Recorded Patient Loading Unit Operator Crimping Expl anation ACP-Do Not Resuscitate 10/14/2022 11:34 AM ACP-Advance Directive 08/23/2021 1:04 PM Healthcare Agents on File Name Relationship Healthcare Agent Relationshi p Communication Branden Lucero Child Primary Decision Maker Geremias Gann Other Secondary Decision Maker Summary Purpose Family History No Family History Records Found Relationship Condition Age at Onset Recorded Date/T jung Not Specified No pertinent family history Unknown Chief Complaint and Reason for Visit Chief Complaint Unstable Odontoid Fr acture Reason for Visit C2 cervical fracture Chronic respiratory failure with hypoxia Chronic respiratory failure with hypoxia and hypercapnia COPD (chronic obstructive pulmonary disease) COVID-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 Hypertension Rheumatoid arthritis Sleep apnea Chief Complaint Unstable Odontoid Fr acture Odontoid FX/Cervical Myelopathy s/p Fusion Reason for Visit C2 cervical fracture Chronic respiratory failure with hypoxia Chronic respiratory failure with hypoxia and hypercapnia COPD (chronic obstructive pulmonary disease) COVID-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 Hypertension Rheumatoid arthritis Sleep apnea C2 cervical fracture Cervical myelopathy Chronic respiratory failure with hypoxia and hypercapnia COPD (chronic obstructive pulmonary disease) COVID-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 Hypertension Impaired gait and mobility Mild cognitive impairment Postoperative pain Rheumatoid arthritis Sleep apnea Chief Complaint Unstable Odontoid Fr acture Odontoid FX/Cervical Myelopathy s/p Fusion m43.02 Reason for Visit C2 cervical fracture Chronic respiratory failure with hypoxia Chronic respiratory failure with hypoxia and hypercapnia COPD (chronic obstructive pulmonary disease) COVID-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 Hypertension Rheumatoid arthritis Sleep apnea C2 cervical fracture Cervical myelopathy Chronic respiratory failure with hypoxia and hypercapnia COPD (chronic obstructive pulmonary disease) COVID-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 Hypertension Impaired gait and mobility Mild cognitive impairment Postoperative pain Rheumatoid arthritis Sleep apnea Reason for Referral Specialty Diagnoses / Procedures Referred By Contac t Referred To Contact Social Work Diagnoses Extremity numbness Namrata Powell, [address] [place] [address] Referral ID Status Reason Start Date Expiration Date V isits Requested Visits Authorized [id number] New Request 10/16/2022 11/10/2023 1 1 Specialty Diagnoses / Procedures Referred By Contac t Referred To Contact [address] [place] [address] Referral ID Status Reason Start Date Expiration Date Visits Re quested Visits Authorized Specialty Diagnoses / Procedures Referred By Contac t Referred To Contact Procedures PLATELET MONITORING PER PROTOCOL Kelsie Wills MD [address] [place] [address] Referral ID Status Reason Start Date Expiration Date V isits Requested Visits Authorized [id number] New Request 10/14/2022 11/08/2023 1 1 Specialty Diagnoses / Procedures Referred By Contac t Referred To Contact Procedures DVT/VTE RISK ASSESSMENT Kelsie Wills MD [address] [place] [address] Referral ID Status Reason Start Date Expiration Date V isits Requested Visits Authorized [id number] New Request 10/14/2022 11/08/2023 1 1 Specialty Diagnoses / Procedures Referred By Contac t Referred To Contact Procedures ECG Kelsie Wills MD [address] [place] [address] Referral ID Status Reason Start Date Expiration Date V isits Requested Visits Authorized [id number] New Request 10/14/2022 11/08/2023 1 1 Additional Source Comments Reason for Visit (unrecogniz ed section and content) Reason Comments Refill Reason Comments Abdominal Pain lower abdomen onset around 3am this morning Neck Pain from an old neck inj ury Reason Comments Shoulder Pain Septic arthritis to R shoulder, possible pelvic sepsis Fall Reason Onset Date Comments Refill 09/26/2021 Reason Onset Date Comments Refill 03/12/2022 Reason Comments Fall Specialty Diagnoses / Procedures Referred By Contac t Referred To Contact Diagnoses Numbness & Tingling to dharmesh URIAS & Kelsie Carbone MD [address] [place] [address] [facility] [address] [place]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 Pain, Moderate Pain, Severe Pain, Maximum dose of acetaminophen is 4000 mg from all sources in 24 hours. 0529 (Given - Provider: Betzy Farmer RN)1507 (Given - Provider: Hanane Kothari RN)2114 (Given - Provider: Ana Rdz RN) 122 (Given - Provider: Cassandra Neely RN)2131 (Given - Provider: Ana Rdz RN) Ondansetron (ZOFRAN) tablet 4 mg(Linked Group 1) 4 mg, Oral, EVERY 6 HOURS NEEDED, Starting on Thu10/14/22 at 1859, Until Discontinued, Nausea / Vomiting, 1st line for Nausea/Vomiting Ondansetron 4mg/2ml (ZOFRAN) injection 4 mg(Linked Group 1) 4 mg, Intravenous, EVERY 6 HOURS NEEDED, Starting on Thu10/14/22 at 1859, Until Discontinued, Nausea / Vomiting, 1st line for Nausea/Vomiting oxyCODONE (ROXICODONE) tablet 5 mg 5 mg, Oral, EVERY 3 HOURS NEEDED, Starting on Thu10/14/22 at 0510, Until Discontinued, Moderate Pain, Severe Pain 0529 (Given - Provider: Betzy Farmer RN) 0109 (Given - Provider: Ana Rdz, VIDYA)0937 (Given - Provider: Cassandra Neely, RN) 0012 (Given - Provider: Ana Rdz, VIDYA)0823 (Given - Provider: Hanane Kothari RN) Polyethylene glycol (MIRALAX) packet 17 g 17 g, Oral, DAILY NEEDED, Starting on Thu10/14/22 at 185, Until Discontinued, Constipation 1st Line Sodium chloride 0.9% IV solution 250 mL Intravenous, at 20 mL/hr, NEEDED, Starting on Thu10/14/22 at 1859, Until Discontinued, Carrier Fluid - See Admin. Inst, 250mL 0.9NS to be used as carrier fluid for intermittent small volume or piggyback medication administration as needed. Infusion rate of the carrier fluid should be set at 20 mL/hr unless the rate as the intermittent medication is less than 20 mL/hr. For intermittent medications with a rate less than 20 mL/hr set the carrier fluid at that rate of the intermittent or piggy back medication. Linked Groups Order Group 1: Ondansetron 4mg/2ml (ZOFRAN) injection 4 mgJump to med 4 mg, Intravenous, EVERY 6 HOURS NEEDED, Starting on Thu10/14/22 at 1859, Until Discontinued, Nausea / Vomiting, 1st line for Nausea/Vomiting Or Ondansetron (ZOFRAN) tablet 4 mgJump to med 4 mg, Oral, EVERY 6 HOURS NEEDED, Starting on Thu10/14/22 at 1859, Until Discontinued, Nausea / Vomiting, 1st line for Nausea/Vomiting Scheduled Medication Order 10/25/2022 10/26/2022 10/27/2022 methylPREDNISolone sodium succ (SOLU-MEDROL) injection 125 mg (COMPLETED) 125 mg, IntraVENous, ONCE, On Thu10/27/22 at 1345, For 1 dose 1349 (Given - Provid er: Marlo Hidalgo RN) morphine (PF) injection 2 mg (COMPLETED) 2 mg, IntraVENous, ONCE, 1 dose, On Thu10/27/22 at 1345, If oral and IV narcotics ordered, use oral first and only use IV if oral is ineffective or cannot take oral. Do Not give oral and IV within 1 hour of each other unless specifically ordered. 1349 (Given - Provid er: Marlo Hidalgo RN) PRN Medication Order 10/25/2022 10/26/2022 10/27/2022 morphine (PF) injection 2 mg 2 mg, IntraVENous, EVERY 2 HOURS PRN, Starting on Thu10/27/22 at 1811, Until Discontinued, Pain Moderate (4-6), If oral and IV narcotics ordered, use oral first and only use IV if oral is ineffective or cannot take oral. Do Not give oral and IV within 1 hour of each other unless specifically ordered. 1817 (Given - Provid er: Isabel Carias RN)2100 (Given - Provider: Isabel Carias RN)2301 (Given - Provider: Isabel Carias RN) No Frequency Medication Order 10/25/2022 10/26/2022 10/27/2022 sterile water injection (COMPLETED) 1 dose, Starting on Thu10/27/22 at 1346, Until Thu10/28/22 at 0159, Marlo Hidalgo: cabinet override, Marlo Hidalgo: cabinet override 1359 (Given - Provid er: Marlo Hidalgo RN - Comment: used to reconstitute medication) Ordered Prescriptions (unrec ognized section and content) Prescription Sig Dispensed Refills Start Date End Da te predniSONE (DELTASONE) 2.5 MG tablet Take 3 tablets by mouth daily for 10 days 30 tablet 0 08/21/2021 08/31/2021 oxyCODONE HCl (OXY-IR) 10 MG immediate release tabletIndications:MSSA bacteremia,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 15 tablet 0 08/21/2021 08/24/2021 methocarbamol (ROBAXIN) 750 MG tablet Take 1 tablet by mouth 3 times daily as needed (spasm, pain) 40 tablet 5 08/20/2021 08/30/2021 potassium chloride (KLOR-CON M) 20 MEQ extended release tablet Take 2 tablets by mouth every morning (before breakfast) 60 tablet 3 08/21/2021 polyethylene glycol (GLYCOLAX) 17 g packet Take 17 g by mouth daily 527 g 1 08/21/2021 09/20/2021 spironolactone (ALDACTONE) 25 MG tablet Take 0.5 tablets by mouth daily 30 tablet 3 08/20/2021 furosemide (LASIX) 40 MG tablet Take 1 tablet by mouth daily 60 tablet 3 08/21/2021 traZODone (DESYREL) 50 MG tablet Take 1 tablet by mouth nightly as needed for Sleep 90 tablet 5 08/20/2021 enoxaparin (LOVENOX) 40 MG/0.4ML Inject 0.4 mLs into the skin daily 0.4 mL 5 08/21/2021 predniSONE (DELTASONE) 5 MG tablet Take 1 tablet by mouth in the morning and at bedtime for 10 days 20 tablet 0 08/20/2021 08/21/2021 oxyCODONE (OXY-IR) 10 MG immediate release tabletIndications:MSSA bacteremia,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 15 tablet 0 08/20/2021 08/21/2021 Prescription Sig Dispensed Refills Start Date End Da te methylPREDNISolone (MEDROL, WILLIE,) 4 MG tablet Take by mouth. 21 tablet 0 10/27/2022 11/02/2022 INFORMATION SOURCE (unrecogn ized section and content) DATE CREATED AUTHOR 05/09/2022 [facility] DATE CREATED AUTHOR AUTHOR'S ORGANIZ ATION 05/16/2022 [facility] DATE CREATED AUTHOR AUTHOR'S ORGANIZ ATION 09/15/2022 [facility] DATE CREATED AUTHOR AUTHOR'S ORGANIZ ATION 09/16/2022 [facility] DATE CREATED AUTHOR AUTHOR'S ORGANIZ ATION 09/17/2022 [facility] DATE CREATED AUTHOR AUTHOR'S ORGANIZ ATION 10/21/2022 [facility] DATE CREATED AUTHOR AUTHOR'S ORGANIZ ATION 11/22/2022 [facility] DATE CREATED AUTHOR AUTHOR'S ORGANIZ ATION 11/27/2022 Michelle rivas DATE CREATED AUTHOR AUTHOR'S ORGANIZ ATION 03/19/2023 [facility] FOR RECORDS PERTAINING TO PATIENTS WHO ARE OR HAVE BEEN ENROLLED IN A CHEMICAL DEPENDENCY/SUBSTANCEABUSE PROGRAM, SOME INFORMATION MAY BE OMITTED. This clinical summary was aggregated from multiple sources. Caution should be exercised in using it in the provision of clinical care. This summary normalizes information from multiple sources, and as a consequence, information in this document may materially change the coding, format and clinical context of patient data. In addition, data may be omitted in some cases. CLINICAL DECISIONS SHOULD BE BASED ON THE PRIMARY CLINICAL RECORDS. [email or web address] provides no warranty or guarantee of the accuracy or completeness of information in this document.
== END 2023-03-23 11:08 | disposition home or self-care (01) ==
LOC: ER 10:55
PROVIDERS: Emergency Provider Emergency Medicine Emergency Medical Services; PCP Internal Medicine
DX: Z53.8 Procedure and treatment not carried out for other reasons (principal)